=== PATIENT | female | born 1985 ===

== ENCOUNTER 2016-08-09 | Inpatient (IN) | END 2017-08-08 23:59 | disposition still patient (30) | DRG 133 | DX: J96.11 Chronic respiratory failure with hypoxia (principal); Z93.0 Tracheostomy status; R13.10 Dysphagia, unspecified; Z93.1 Gastrostomy status; I10 Essential (primary) hypertension; I87.8 Other specified disorders of veins ==

== ENCOUNTER 2016-11-18 15:30 | Outpatient (CLI) | payer MEDICAID ==
[~2016-11-18 15:30] MED LIST: ACET-2154 GT; AMAN100T GT; AMLO5TAB4 GT; ASCO500C16 GT; BACL10TA GT; BISA10SU12 RC; CLON0.1T GT; CRANBERRY JUICE GT; DEXL60CA3 PO; DEXT1DRO3 EACHEYE; DOCU-25 GT; GENT100P5 IV; HYDR-552 GT; LEVE500T9 GT; OMEG1CAP GT; POLY17PO4 GT; POTA20PA3 GT; TRAM50TA2 GT
== END 2016-11-18 23:59 ==
LOC: XRAY 15:30
PROVIDERS: ATTEND Internal Medicine Pulmonary Disease
DX: R13.10 Dysphagia, unspecified (principal)
CPT/HCPCS: 74230; 92611

== ENCOUNTER 2017-06-03 09:00 | Outpatient (CLI) | payer MEDICAID ==
[~2017-06-03 09:00] MED LIST changes: +DOCU-141 GT; -DOCU-25 GT
== END 2017-06-03 23:59 ==
LOC: CT 09:00
PROVIDERS: ATTEND Internal Medicine Pulmonary Disease
DX: G93.89 Other specified disorders of brain (principal)
CPT/HCPCS: 70450

== ENCOUNTER 2017-08-09 | Inpatient (IN) | END 2018-08-08 11:59 | disposition other institution (70) | DRG 189 | DX: J96.11 Chronic respiratory failure with hypoxia (principal); R53.2 Functional quadriplegia; G93.40 Encephalopathy, unspecified; Z93.0 Tracheostomy status; R13.10 Dysphagia, unspecified; Z93.1 Gastrostomy status; I10 Essential (primary) hypertension; I87.8 Other specified disorders of veins; F09 Unspecified mental disorder due to known physiological condition; F32.9 Major depressive disorder, single episode, unspecified; F41.9 Anxiety disorder, unspecified; G40.909 Epilepsy, unspecified, not intractable, without status epilepticus; K59.00 Constipation, unspecified; S02.609D Fracture of mandible, unspecified, subsequent encounter for fracture with routine healing; S06.5X9D Traumatic subdural hemorrhage with loss of consciousness of unspecified duration, subsequent encounter; S06.6X9D Traumatic subarachnoid hemorrhage with loss of consciousness of unspecified duration, subsequent encounter; S22.42XD Multiple fractures of ribs, left side, subsequent encounter for fracture with routine healing; S27.0XXD Traumatic pneumothorax, subsequent encounter; S27.329D Contusion of lung, unspecified, subsequent encounter; S32.401D Unspecified fracture of right acetabulum, subsequent encounter for fracture with routine healing; S32.402D Unspecified fracture of left acetabulum, subsequent encounter for fracture with routine healing; S36.030D Superficial (capsular) laceration of spleen, subsequent encounter; S42.002D Fracture of unspecified part of left clavicle, subsequent encounter for fracture with routine healing; N94.6 Dysmenorrhea, unspecified; V89.2XXD Person injured in unspecified motor-vehicle accident, traffic, subsequent encounter; R05 Cough ==

== ENCOUNTER 2017-10-13 13:19 | Outpatient (CLI) | payer MEDICARE, MEDICAID | END 2017-10-13 23:59 | disposition home or self-care (01) | LOC: RAD 13:19 | PROVIDERS: ATTEND Internal Medicine Pulmonary Disease | DX: R13.10 Dysphagia, unspecified (principal) | CPT/HCPCS: 74230; 92611 ==

== ENCOUNTER 2018-01-27 09:50 | Day surgery (SDC) | payer MEDICARE, MEDICAID ==
[2018-01-27] MEDS ORDERED: PROPOFOL 200 MG/20 ML BOTTLE IV ONE (10:45)
[2018-01-27] MEDS ORDERED: LIDOCAINE HCL 2% 20 ML VIAL MC ONE (10:45)
[2018-01-27] MEDS ORDERED: IV NORMAL SALINE 100 ML BAG IV ONE (10:45)
== END 2018-01-27 12:10 | disposition still patient (30) ==
LOC: DS 09:50
PROVIDERS: ATTEND Surgery
DX: K94.23 Gastrostomy malfunction (principal)
CPT/HCPCS: 43246; A4217; J3490 ×3; 43235

== ENCOUNTER 2018-08-09 | Inpatient (IN) | END 2019-08-08 23:59 | disposition still patient (30) | DRG 189 | DX: J96.11 Chronic respiratory failure with hypoxia (principal); R53.2 Functional quadriplegia; G93.40 Encephalopathy, unspecified; N39.0 Urinary tract infection, site not specified; K56.7 Ileus, unspecified; J98.11 Atelectasis; Z93.0 Tracheostomy status; R13.10 Dysphagia, unspecified; Z93.1 Gastrostomy status; I10 Essential (primary) hypertension; I87.8 Other specified disorders of veins; F09 Unspecified mental disorder due to known physiological condition; F32.9 Major depressive disorder, single episode, unspecified; F41.9 Anxiety disorder, unspecified; G40.909 Epilepsy, unspecified, not intractable, without status epilepticus; S02.609D Fracture of mandible, unspecified, subsequent encounter for fracture with routine healing; S06.5X9D Traumatic subdural hemorrhage with loss of consciousness of unspecified duration, subsequent encounter; S06.6X9D Traumatic subarachnoid hemorrhage with loss of consciousness of unspecified duration, subsequent encounter; S22.42XD Multiple fractures of ribs, left side, subsequent encounter for fracture with routine healing; S27.0XXD Traumatic pneumothorax, subsequent encounter; S27.329D Contusion of lung, unspecified, subsequent encounter; S32.401D Unspecified fracture of right acetabulum, subsequent encounter for fracture with routine healing; S32.402D Unspecified fracture of left acetabulum, subsequent encounter for fracture with routine healing; S36.030D Superficial (capsular) laceration of spleen, subsequent encounter; S42.002D Fracture of unspecified part of left clavicle, subsequent encounter for fracture with routine healing; V89.2XXD Person injured in unspecified motor-vehicle accident, traffic, subsequent encounter; H10.9 Unspecified conjunctivitis; K80.20 Calculus of gallbladder without cholecystitis without obstruction; M85.80 Other specified disorders of bone density and structure, unspecified site; Z87.820 Personal history of traumatic brain injury; Z91.19 Patient's noncompliance with other medical treatment and regimen; R16.0 Hepatomegaly, not elsewhere classified; R79.89 Other specified abnormal findings of blood chemistry; J40 Bronchitis, not specified as acute or chronic; B96.5 Pseudomonas (aeruginosa) (mallei) (pseudomallei) as the cause of diseases classified elsewhere; B96.1 Klebsiella pneumoniae [K. pneumoniae] as the cause of diseases classified elsewhere ==

== ENCOUNTER → 2020-08-08 23:59 | Inpatient (IN) | payer MEDICARE, MEDICAID ==
[2019-08-10 08:30] VITALS: BP 116/71
--- NOTE | 2019-08-10 15:45 | NUR ---
ISAÍAS met with patient's father Abdi and informed him that the next IDT meeting for the patient has been scheduled for 08/15/2019 at 11am.
[2019-08-10] MEDS: METOCLOPRAMIDE HCL 10 MG/10 ML UDC GT SCH (17:10)
[2019-08-10 20:36] VITALS: BP 120/72
[2019-08-10] MEDS: PROTEIN SUPPLEMENT (PROSTAT) 30 ML LIQUID GT SCH (21:00)
[2019-08-10] MEDS: COD LIVER OIL/ZINC OXIDE OINT 113 GM TUBE TP SCH (21:00)
[2019-08-10] MEDS: MELATONIN 3 MG TABLET GT SCH (21:00)
[2019-08-10] MEDS: levETIRAcetam 500 MG/5 ML LIQUID UDC GT SCH (21:00)
[2019-08-10] MEDS: ACIDOPHILUS/BULGARICUS CHEW TAB GT SCH (21:00)
[2019-08-10] MEDS: ASCORBIC ACID 500 MG TABLET GT SCH (21:00)
[2019-08-10] MEDS: CRANBERRY 500 MG GT SCH (21:00)
[2019-08-10] MEDS: MAGNESIUM COMPLEX GT SCH (21:00)
[2019-08-10] MEDS: NUTRISOURCE FIBER 4 GM PACKET GT SCH (21:00)
[2019-08-10] MEDS: RIVAROXABAN 15 MG TABLET GT SCH (21:00)
[2019-08-10] MEDS: HYDROGEN PEROXIDE 3% 118 ML BOTTLE TP SCH (21:06)
[2019-08-10] MEDS: BACLOFEN 20 MG TABLET GT SCH (22:03)
[2019-08-11] MEDS: TWOCAL HN 1,000 ML LIQUID GT PRN (04:40)
[2019-08-11] MEDS: METOCLOPRAMIDE HCL 10 MG/10 ML UDC GT SCH ×5 (06:13→23:09)
[2019-08-11] MEDS: BACLOFEN 20 MG TABLET GT SCH ×3 (06:13→21:03)
[2019-08-11] MEDS: OMEPRAZOLE 20 MG CAPSULE.DR GT SCH (06:13)
[2019-08-11] MEDS: MULTIVIT, IRON, MIN NO. 8, FA TABLET GT SCH (06:14)
[2019-08-11 08:02] VITALS: BP 98/65
[2019-08-11] MEDS: ACIDOPHILUS/BULGARICUS CHEW TAB GT SCH ×2 (09:30→20:52)
[2019-08-11] MEDS: DOCUSATE SODIUM 100 MG/10 ML LIQUID UDC GT SCH (09:30)
[2019-08-11] MEDS: levETIRAcetam 500 MG/5 ML LIQUID UDC GT SCH ×2 (09:31→20:52)
[2019-08-11] MEDS: MIRALAX 17 GM POWD.PACK GT SCH (09:31)
[2019-08-11] MEDS: COD LIVER OIL/ZINC OXIDE OINT 113 GM TUBE TP SCH ×2 (09:32→20:52)
[2019-08-11] MEDS: POTASSIUM CHLORIDE 40 MEQ/30 ML LIQUID UDC GT SCH (09:32)
[2019-08-11] MEDS: HYDROGEN PEROXIDE 3% 118 ML BOTTLE TP SCH ×2 (09:55→20:19)
--- NOTE | 2019-08-11 14:49 | NUR ---
ISAÍAS met with patient's mother Jeanne today and obtained signatures on all annual admission paperwork for patient's new chart. The paperwork included: Conditions of Admission, Patient Rights Acknowledgement, An Important Message from Medicare about your Rights, Documentation of Preferred Intensity of Care, Voluntary Prior Express Consent Form, Race and Ethnicity Patient Self-Identification, and the [facility] Agreement. ISAÍAS offered Jeanne a copy of the signed forms, and Jeanne declined, stating that she has copies of them from previous signing. For assessment/quarterly information, see patient's previous chart #[id number].
[2019-08-11 20:46] VITALS: BP 126/71
[2019-08-11] MEDS: MAGNESIUM COMPLEX GT SCH (20:52)
[2019-08-11] MEDS: MELATONIN 3 MG TABLET GT SCH (20:52)
[2019-08-11] MEDS: NUTRISOURCE FIBER 4 GM PACKET GT SCH (20:52)
[2019-08-11] MEDS: RIVAROXABAN 15 MG TABLET GT SCH (20:52)
[2019-08-11] MEDS: ASCORBIC ACID 500 MG TABLET GT SCH (20:52)
[2019-08-11] MEDS: CRANBERRY 500 MG GT SCH (20:52)
[2019-08-11] MEDS: PROTEIN SUPPLEMENT (PROSTAT) 30 ML LIQUID GT SCH (20:52)
[2019-08-12] MEDS: MULTIVIT, IRON, MIN NO. 8, FA TABLET GT SCH (05:27)
[2019-08-12] MEDS: BACLOFEN 20 MG TABLET GT SCH ×3 (05:27→21:13)
[2019-08-12] MEDS: METOCLOPRAMIDE HCL 10 MG/10 ML UDC GT SCH ×4 (05:27→23:28)
[2019-08-12] MEDS: OMEPRAZOLE 20 MG CAPSULE.DR GT SCH (05:27)
[2019-08-12 08:30] VITALS: BP 116/72
[2019-08-12] MEDS: HYDROGEN PEROXIDE 3% 118 ML BOTTLE TP SCH ×2 (09:00→21:13)
[2019-08-12] MEDS: DOCUSATE SODIUM 100 MG/10 ML LIQUID UDC GT SCH (09:20)
[2019-08-12] MEDS: ACIDOPHILUS/BULGARICUS CHEW TAB GT SCH ×2 (09:20→20:35)
[2019-08-12] MEDS: POTASSIUM CHLORIDE 40 MEQ/30 ML LIQUID UDC GT SCH (09:21)
[2019-08-12] MEDS: levETIRAcetam 500 MG/5 ML LIQUID UDC GT SCH ×2 (09:21→20:35)
[2019-08-12] MEDS: COD LIVER OIL/ZINC OXIDE OINT 113 GM TUBE TP SCH ×2 (09:23→20:37)
[2019-08-12] MEDS: POLYVINYL ALCOHOL OPHT DROPS 15 ML BOTTLE EACHEYE PRN (17:53)
[2019-08-12] MEDS: PROTEIN SUPPLEMENT (PROSTAT) 30 ML LIQUID GT SCH (20:36)
[2019-08-12] MEDS: CRANBERRY 500 MG GT SCH (20:36)
[2019-08-12] MEDS: ASCORBIC ACID 500 MG TABLET GT SCH (20:36)
[2019-08-12] MEDS: MELATONIN 3 MG TABLET GT SCH (20:36)
[2019-08-12] MEDS: NUTRISOURCE FIBER 4 GM PACKET GT SCH (20:36)
[2019-08-12] MEDS: MAGNESIUM COMPLEX GT SCH (20:36)
[2019-08-12] MEDS: RIVAROXABAN 15 MG TABLET GT SCH (20:37)
[2019-08-12 20:53] VITALS: BP 125/80
[2019-08-12] MEDS: TWOCAL HN 1,000 ML LIQUID GT PRN (21:53)
[2019-08-13] MEDS: BACLOFEN 20 MG TABLET GT SCH ×3 (05:14→21:17)
[2019-08-13] MEDS: OMEPRAZOLE 20 MG CAPSULE.DR GT SCH (05:14)
[2019-08-13] MEDS: METOCLOPRAMIDE HCL 10 MG/10 ML UDC GT SCH ×4 (05:14→23:17)
[2019-08-13] MEDS: MULTIVIT, IRON, MIN NO. 8, FA TABLET GT SCH (05:14)
[2019-08-13 08:30] VITALS: BP 108/72
[2019-08-13] MEDS: HYDROGEN PEROXIDE 3% 118 ML BOTTLE TP SCH ×2 (09:00→20:07)
[2019-08-13] MEDS: ACIDOPHILUS/BULGARICUS CHEW TAB GT SCH ×2 (09:56→20:44)
[2019-08-13] MEDS: POTASSIUM CHLORIDE 40 MEQ/30 ML LIQUID UDC GT SCH (09:56)
[2019-08-13] MEDS: levETIRAcetam 500 MG/5 ML LIQUID UDC GT SCH ×2 (09:56→20:44)
[2019-08-13] MEDS: MIRALAX 17 GM POWD.PACK GT SCH (09:56)
[2019-08-13] MEDS: DOCUSATE SODIUM 100 MG/10 ML LIQUID UDC GT SCH (09:56)
[2019-08-13] MEDS: COD LIVER OIL/ZINC OXIDE OINT 113 GM TUBE TP SCH ×2 (09:56→20:46)
[2019-08-13] MEDS: NUTRISOURCE FIBER 4 GM PACKET GT SCH (20:44)
[2019-08-13] MEDS: MELATONIN 3 MG TABLET GT SCH (20:44)
[2019-08-13] MEDS: MAGNESIUM COMPLEX GT SCH (20:44)
[2019-08-13] MEDS: ASCORBIC ACID 500 MG TABLET GT SCH (20:44)
[2019-08-13] MEDS: CRANBERRY 500 MG GT SCH (20:44)
[2019-08-13] MEDS: PROTEIN SUPPLEMENT (PROSTAT) 30 ML LIQUID GT SCH (20:44)
[2019-08-13] MEDS: RIVAROXABAN 15 MG TABLET GT SCH (20:45)
[2019-08-13 21:17] VITALS: BP 126/80
[2019-08-14] MEDS: METOCLOPRAMIDE HCL 10 MG/10 ML UDC GT SCH ×3 (05:19→17:49)
[2019-08-14] MEDS: BACLOFEN 20 MG TABLET GT SCH ×3 (05:19→21:53)
[2019-08-14] MEDS: MULTIVIT, IRON, MIN NO. 8, FA TABLET GT SCH (05:19)
[2019-08-14] MEDS: OMEPRAZOLE 20 MG CAPSULE.DR GT SCH (05:19)
[2019-08-14] MEDS: levETIRAcetam 500 MG/5 ML LIQUID UDC GT SCH ×2 (08:02→21:53)
[2019-08-14] MEDS: ACIDOPHILUS/BULGARICUS CHEW TAB GT SCH ×2 (08:02→21:53)
[2019-08-14] MEDS: DOCUSATE SODIUM 100 MG/10 ML LIQUID UDC GT SCH (08:02)
[2019-08-14] MEDS: POTASSIUM CHLORIDE 40 MEQ/30 ML LIQUID UDC GT SCH (08:02)
[2019-08-14] MEDS: COD LIVER OIL/ZINC OXIDE OINT 113 GM TUBE TP SCH ×2 (08:02→21:53)
[2019-08-14 08:30] VITALS: BP 115/64
[2019-08-14] MEDS: HYDROGEN PEROXIDE 3% 118 ML BOTTLE TP SCH ×2 (09:00→21:51)
[2019-08-14] MEDS: RIVAROXABAN 15 MG TABLET GT SCH (21:50)
[2019-08-14] MEDS: MELATONIN 3 MG TABLET GT SCH (21:53)
[2019-08-14] MEDS: CRANBERRY 500 MG GT SCH (21:53)
[2019-08-14] MEDS: MAGNESIUM COMPLEX GT SCH (21:53)
[2019-08-14] MEDS: NUTRISOURCE FIBER 4 GM PACKET GT SCH (21:53)
[2019-08-14] MEDS: ASCORBIC ACID 500 MG TABLET GT SCH (21:53)
[2019-08-14] MEDS: PROTEIN SUPPLEMENT (PROSTAT) 30 ML LIQUID GT SCH (21:53)
[2019-08-14 21:59] VITALS: BP 125/77
[2019-08-15] MEDS: METOCLOPRAMIDE HCL 10 MG/10 ML UDC GT SCH ×4 (00:44→17:00)
[2019-08-15] MEDS: MULTIVIT, IRON, MIN NO. 8, FA TABLET GT SCH (05:53)
[2019-08-15] MEDS: BACLOFEN 20 MG TABLET GT SCH ×3 (05:53→22:19)
[2019-08-15] MEDS: OMEPRAZOLE 20 MG CAPSULE.DR GT SCH (05:53)
[2019-08-15 08:00] VITALS: BP 108/69
[2019-08-15] MEDS: HYDROGEN PEROXIDE 3% 118 ML BOTTLE TP SCH ×2 (09:45→20:30)
[2019-08-15] MEDS: DOCUSATE SODIUM 100 MG/10 ML LIQUID UDC GT SCH (09:59)
[2019-08-15] MEDS: ACIDOPHILUS/BULGARICUS CHEW TAB GT SCH ×2 (09:59→20:38)
[2019-08-15] MEDS: levETIRAcetam 500 MG/5 ML LIQUID UDC GT SCH ×2 (09:59→20:39)
[2019-08-15] MEDS: COD LIVER OIL/ZINC OXIDE OINT 113 GM TUBE TP SCH ×2 (09:59→20:44)
[2019-08-15] MEDS: MIRALAX 17 GM POWD.PACK GT SCH (09:59)
[2019-08-15] MEDS: POTASSIUM CHLORIDE 40 MEQ/30 ML LIQUID UDC GT SCH (09:59)
--- NOTE | 2019-08-15 14:36 | NUR ---
Pharmacy Update from Today's 08/15/19 IDT Meeting: VS: Temp 98 BP 125/77 HR 63 LABS: (from 07/11/19, no new labs) Wbc 9.8 H/H 13.5/40.7 Plt 235 Na 144 K 4.2 Cl 107 CO2 29 BUN/SCr 18/0.6 BS 94 ca 9.0 phos 3.8 Mg 2.1 MEDICATION USE REVIEWED: > Pt not on any anti-psych medications > On Keppra 500mg q12h, last calculated CrCl was >100 ml/min. Renal fxn ok for current dosing. > On Xarelto 15mg daily, no bleeding noted, last plt was 235 > On KCl 20meq daily, last K 4.2 > PRN MED USAGE: (Dec) Tylenol for pain used x1 Artificial tears used x5 Bisacodyl used x0 Mucinex DM used x0 NEW ORDERS NOTED: > NA Pt was reviewed and discussed in depth with family in attendance with no medication issues noted. No further medication recommendations at this time, remains stable on current regimen. Will continue to monitor
[2019-08-15] MEDS: GUAIFENESIN/DEXTROMETHORPHAN 5 ML UDC GT PRN (15:15)
--- NOTE | 2019-08-15 16:35 | NUR ---
INTERDISCIPLINARY PLAN OF CARE CONFERENCE was held today. Patient's mother Jeanne and father Abdi were present at the meeting. Dr. Cartagena and the Interdisciplinary Team reviewed the current plan of care in detail. RN reported on patient's current medical condition. No changes in condition were reported at this time. See RN IDT conference notes. See also all other disciplines IDT notes and physician's progress notes for additional details. Family's questions were addressed by the IDT team. Patient's father also stated that patient continues to receive ST services from an outside provider.
[2019-08-15] MEDS: MELATONIN 3 MG TABLET GT SCH (20:39)
[2019-08-15] MEDS: CRANBERRY 500 MG GT SCH (20:40)
[2019-08-15] MEDS: NUTRISOURCE FIBER 4 GM PACKET GT SCH (20:41)
[2019-08-15] MEDS: MAGNESIUM COMPLEX GT SCH (20:41)
[2019-08-15] MEDS: ASCORBIC ACID 500 MG TABLET GT SCH (20:42)
[2019-08-15] MEDS: PROTEIN SUPPLEMENT (PROSTAT) 30 ML LIQUID GT SCH (20:42)
[2019-08-15] MEDS: RIVAROXABAN 15 MG TABLET GT SCH (21:00)
[2019-08-15 21:35] VITALS: BP 128/80
[2019-08-16] MEDS: BACLOFEN 20 MG TABLET GT SCH ×3 (06:00→22:48)
[2019-08-16] MEDS: MULTIVIT, IRON, MIN NO. 8, FA TABLET GT SCH (06:00)
[2019-08-16] MEDS: METOCLOPRAMIDE HCL 10 MG/10 ML UDC GT SCH ×5 (06:00→23:12)
[2019-08-16] MEDS: OMEPRAZOLE 20 MG CAPSULE.DR GT SCH (06:00)
[2019-08-16 08:00] VITALS: BP 120/64
[2019-08-16] MEDS: ACIDOPHILUS/BULGARICUS CHEW TAB GT SCH ×2 (08:55→20:44)
[2019-08-16] MEDS: DOCUSATE SODIUM 100 MG/10 ML LIQUID UDC GT SCH (08:55)
[2019-08-16] MEDS: levETIRAcetam 500 MG/5 ML LIQUID UDC GT SCH ×2 (08:55→20:45)
[2019-08-16] MEDS: POTASSIUM CHLORIDE 40 MEQ/30 ML LIQUID UDC GT SCH (08:55)
[2019-08-16] MEDS: COD LIVER OIL/ZINC OXIDE OINT 113 GM TUBE TP SCH ×2 (08:56→20:50)
[2019-08-16] MEDS: HYDROGEN PEROXIDE 3% 118 ML BOTTLE TP SCH ×2 (09:00→20:53)
--- NOTE | 2019-08-16 15:18 | NUR ---
Seen and examined by Lu Coleman ,no new orders noted.
[2019-08-16] MEDS: MELATONIN 3 MG TABLET GT SCH (20:47)
[2019-08-16] MEDS: CRANBERRY 500 MG GT SCH (20:48)
[2019-08-16] MEDS: MAGNESIUM COMPLEX GT SCH (20:48)
[2019-08-16] MEDS: NUTRISOURCE FIBER 4 GM PACKET GT SCH (20:48)
[2019-08-16] MEDS: ASCORBIC ACID 500 MG TABLET GT SCH (20:49)
[2019-08-16] MEDS: PROTEIN SUPPLEMENT (PROSTAT) 30 ML LIQUID GT SCH (20:49)
[2019-08-16] MEDS: RIVAROXABAN 15 MG TABLET GT SCH (20:50)
[2019-08-16 20:58] VITALS: BP 100/63
[2019-08-17] MEDS: TWOCAL HN 1,000 ML LIQUID GT PRN (04:30)
[2019-08-17] MEDS: MULTIVIT, IRON, MIN NO. 8, FA TABLET GT SCH (05:06)
[2019-08-17] MEDS: BACLOFEN 20 MG TABLET GT SCH ×3 (05:06→21:05)
[2019-08-17] MEDS: METOCLOPRAMIDE HCL 10 MG/10 ML UDC GT SCH ×3 (05:06→18:03)
[2019-08-17] MEDS: OMEPRAZOLE 20 MG CAPSULE.DR GT SCH (05:06)
[2019-08-17 08:00] VITALS: BP 120/67
[2019-08-17] MEDS: HYDROGEN PEROXIDE 3% 118 ML BOTTLE TP SCH ×2 (08:27→20:23)
[2019-08-17] MEDS: COD LIVER OIL/ZINC OXIDE OINT 113 GM TUBE TP SCH ×2 (09:03→20:46)
[2019-08-17] MEDS: levETIRAcetam 500 MG/5 ML LIQUID UDC GT SCH ×2 (09:03→20:41)
[2019-08-17] MEDS: ACIDOPHILUS/BULGARICUS CHEW TAB GT SCH ×2 (09:03→20:41)
[2019-08-17] MEDS: DOCUSATE SODIUM 100 MG/10 ML LIQUID UDC GT SCH (09:03)
[2019-08-17] MEDS: MIRALAX 17 GM POWD.PACK GT SCH (09:03)
[2019-08-17] MEDS: POTASSIUM CHLORIDE 40 MEQ/30 ML LIQUID UDC GT SCH (09:03)
[2019-08-17] MEDS: MELATONIN 3 MG TABLET GT SCH (20:42)
[2019-08-17] MEDS: CRANBERRY 500 MG GT SCH (20:42)
[2019-08-17] MEDS: NUTRISOURCE FIBER 4 GM PACKET GT SCH (20:43)
[2019-08-17] MEDS: PROTEIN SUPPLEMENT (PROSTAT) 30 ML LIQUID GT SCH (20:43)
[2019-08-17] MEDS: MAGNESIUM COMPLEX GT SCH (20:43)
[2019-08-17] MEDS: RIVAROXABAN 15 MG TABLET GT SCH (20:45)
[2019-08-17] MEDS: ASCORBIC ACID 500 MG TABLET GT SCH (20:45)
[2019-08-17 22:03] VITALS: BP 103/63
[2019-08-18] MEDS: MULTIVIT, IRON, MIN NO. 8, FA TABLET GT SCH (05:59)
[2019-08-18] MEDS: BACLOFEN 20 MG TABLET GT SCH ×3 (05:59→21:03)
[2019-08-18] MEDS: OMEPRAZOLE 20 MG CAPSULE.DR GT SCH (05:59)
[2019-08-18] MEDS: METOCLOPRAMIDE HCL 10 MG/10 ML UDC GT SCH ×4 (05:59→17:48)
[2019-08-18] MEDS: DOCUSATE SODIUM 100 MG/10 ML LIQUID UDC GT SCH (08:49)
[2019-08-18] MEDS: POTASSIUM CHLORIDE 40 MEQ/30 ML LIQUID UDC GT SCH (08:49)
[2019-08-18] MEDS: levETIRAcetam 500 MG/5 ML LIQUID UDC GT SCH ×2 (08:49→21:00)
[2019-08-18] MEDS: COD LIVER OIL/ZINC OXIDE OINT 113 GM TUBE TP SCH ×2 (08:49→21:03)
[2019-08-18] MEDS: ACIDOPHILUS/BULGARICUS CHEW TAB GT SCH ×2 (08:49→21:00)
[2019-08-18] MEDS: HYDROGEN PEROXIDE 3% 118 ML BOTTLE TP SCH ×2 (09:50→21:23)
[2019-08-18 10:07] VITALS: BP 128/68
[2019-08-18 20:41] VITALS: BP 102/63
[2019-08-18] MEDS: MELATONIN 3 MG TABLET GT SCH (21:01)
[2019-08-18] MEDS: CRANBERRY 500 MG GT SCH (21:02)
[2019-08-18] MEDS: ASCORBIC ACID 500 MG TABLET GT SCH (21:02)
[2019-08-18] MEDS: MAGNESIUM COMPLEX GT SCH (21:02)
[2019-08-18] MEDS: NUTRISOURCE FIBER 4 GM PACKET GT SCH (21:02)
[2019-08-18] MEDS: PROTEIN SUPPLEMENT (PROSTAT) 30 ML LIQUID GT SCH (21:02)
[2019-08-18] MEDS: RIVAROXABAN 15 MG TABLET GT SCH (21:24)
[2019-08-19] MEDS: METOCLOPRAMIDE HCL 10 MG/10 ML UDC GT SCH ×4 (00:10→17:56)
[2019-08-19] MEDS: TWOCAL HN 1,000 ML LIQUID GT PRN (05:00)
[2019-08-19] MEDS: MULTIVIT, IRON, MIN NO. 8, FA TABLET GT SCH (05:13)
[2019-08-19] MEDS: BACLOFEN 20 MG TABLET GT SCH ×3 (05:13→21:20)
[2019-08-19] MEDS: OMEPRAZOLE 20 MG CAPSULE.DR GT SCH (05:13)
[2019-08-19] MEDS: HYDROGEN PEROXIDE 3% 118 ML BOTTLE TP SCH ×2 (08:21→21:00)
[2019-08-19] MEDS: DOCUSATE SODIUM 100 MG/10 ML LIQUID UDC GT SCH (08:59)
[2019-08-19] MEDS: ACIDOPHILUS/BULGARICUS CHEW TAB GT SCH ×2 (09:00→21:20)
[2019-08-19] MEDS: levETIRAcetam 500 MG/5 ML LIQUID UDC GT SCH ×2 (09:00→21:20)
[2019-08-19] MEDS: MIRALAX 17 GM POWD.PACK GT SCH (09:01)
[2019-08-19] MEDS: POTASSIUM CHLORIDE 40 MEQ/30 ML LIQUID UDC GT SCH (09:02)
[2019-08-19] MEDS: COD LIVER OIL/ZINC OXIDE OINT 113 GM TUBE TP SCH ×2 (09:02→21:20)
--- NOTE | 2019-08-19 10:00 | NUR ---
SEEN BY DR. ESCOTO AND WITH NNO.
[2019-08-19 11:46] VITALS: BP 101/63
[2019-08-19 20:22] VITALS: BP 108/67
[2019-08-19] MEDS: RIVAROXABAN 15 MG TABLET GT SCH (20:42)
[2019-08-19] MEDS: MELATONIN 3 MG TABLET GT SCH (21:20)
[2019-08-19] MEDS: ASCORBIC ACID 500 MG TABLET GT SCH (21:20)
[2019-08-19] MEDS: PROTEIN SUPPLEMENT (PROSTAT) 30 ML LIQUID GT SCH (21:20)
[2019-08-19] MEDS: CRANBERRY 500 MG GT SCH (21:20)
[2019-08-19] MEDS: NUTRISOURCE FIBER 4 GM PACKET GT SCH (21:20)
[2019-08-19] MEDS: MAGNESIUM COMPLEX GT SCH (21:20)
[2019-08-20] MEDS: METOCLOPRAMIDE HCL 10 MG/10 ML UDC GT SCH ×4 (00:17→17:57)
[2019-08-20] MEDS: OMEPRAZOLE 20 MG CAPSULE.DR GT SCH (06:10)
[2019-08-20] MEDS: MULTIVIT, IRON, MIN NO. 8, FA TABLET GT SCH (06:10)
[2019-08-20] MEDS: BACLOFEN 20 MG TABLET GT SCH ×3 (06:10→22:42)
[2019-08-20] MEDS: ACIDOPHILUS/BULGARICUS CHEW TAB GT SCH ×2 (08:27→20:42)
[2019-08-20] MEDS: DOCUSATE SODIUM 100 MG/10 ML LIQUID UDC GT SCH (08:27)
[2019-08-20] MEDS: POTASSIUM CHLORIDE 40 MEQ/30 ML LIQUID UDC GT SCH (08:28)
[2019-08-20] MEDS: levETIRAcetam 500 MG/5 ML LIQUID UDC GT SCH ×2 (08:28→20:42)
[2019-08-20] MEDS: COD LIVER OIL/ZINC OXIDE OINT 113 GM TUBE TP SCH ×2 (08:29→20:44)
[2019-08-20] MEDS: HYDROGEN PEROXIDE 3% 118 ML BOTTLE TP SCH ×2 (09:00→20:36)
[2019-08-20 11:12] VITALS: BP 98/41
[2019-08-20] MEDS: POLYVINYL ALCOHOL OPHT DROPS 15 ML BOTTLE EACHEYE PRN (18:04)
[2019-08-20 20:22] VITALS: BP 129/82
[2019-08-20] MEDS: CRANBERRY 500 MG GT SCH (20:42)
[2019-08-20] MEDS: MELATONIN 3 MG TABLET GT SCH (20:42)
[2019-08-20] MEDS: RIVAROXABAN 15 MG TABLET GT SCH (20:43)
[2019-08-20] MEDS: PROTEIN SUPPLEMENT (PROSTAT) 30 ML LIQUID GT SCH (20:44)
[2019-08-20] MEDS: NUTRISOURCE FIBER 4 GM PACKET GT SCH (20:44)
[2019-08-20] MEDS: MAGNESIUM COMPLEX GT SCH (20:44)
[2019-08-20] MEDS: ASCORBIC ACID 500 MG TABLET GT SCH (20:44)
[2019-08-21] MEDS: METOCLOPRAMIDE HCL 10 MG/10 ML UDC GT SCH ×5 (00:26→23:09)
[2019-08-21] MEDS: MULTIVIT, IRON, MIN NO. 8, FA TABLET GT SCH (05:20)
[2019-08-21] MEDS: BACLOFEN 20 MG TABLET GT SCH ×3 (05:20→22:12)
[2019-08-21] MEDS: OMEPRAZOLE 20 MG CAPSULE.DR GT SCH (05:20)
[2019-08-21] MEDS: TWOCAL HN 1,000 ML LIQUID GT PRN (07:05)
[2019-08-21] MEDS: HYDROGEN PEROXIDE 3% 118 ML BOTTLE TP SCH ×2 (08:21→21:17)
[2019-08-21 08:30] VITALS: BP 103/59
[2019-08-21] MEDS: DOCUSATE SODIUM 100 MG/10 ML LIQUID UDC GT SCH (09:54)
[2019-08-21] MEDS: MIRALAX 17 GM POWD.PACK GT SCH (09:54)
[2019-08-21] MEDS: ACIDOPHILUS/BULGARICUS CHEW TAB GT SCH ×2 (09:54→20:19)
[2019-08-21] MEDS: POTASSIUM CHLORIDE 40 MEQ/30 ML LIQUID UDC GT SCH (09:54)
[2019-08-21] MEDS: COD LIVER OIL/ZINC OXIDE OINT 113 GM TUBE TP SCH ×2 (09:54→20:20)
[2019-08-21] MEDS: levETIRAcetam 500 MG/5 ML LIQUID UDC GT SCH ×2 (09:54→20:19)
[2019-08-21] MEDS: POLYVINYL ALCOHOL OPHT DROPS 15 ML BOTTLE EACHEYE PRN (17:38)
[2019-08-21] MEDS: CRANBERRY 500 MG GT SCH (20:19)
[2019-08-21] MEDS: NUTRISOURCE FIBER 4 GM PACKET GT SCH (20:19)
[2019-08-21] MEDS: MELATONIN 3 MG TABLET GT SCH (20:19)
[2019-08-21] MEDS: MAGNESIUM COMPLEX GT SCH (20:19)
[2019-08-21] MEDS: PROTEIN SUPPLEMENT (PROSTAT) 30 ML LIQUID GT SCH (20:19)
[2019-08-21] MEDS: ASCORBIC ACID 500 MG TABLET GT SCH (20:19)
[2019-08-21] MEDS: RIVAROXABAN 15 MG TABLET GT SCH (20:20)
[2019-08-21 21:01] VITALS: BP 110/66
[2019-08-22] MEDS: BACLOFEN 20 MG TABLET GT SCH ×3 (05:14→22:14)
[2019-08-22] MEDS: METOCLOPRAMIDE HCL 10 MG/10 ML UDC GT SCH ×3 (05:14→17:05)
[2019-08-22] MEDS: OMEPRAZOLE 20 MG CAPSULE.DR GT SCH (05:14)
[2019-08-22] MEDS: MULTIVIT, IRON, MIN NO. 8, FA TABLET GT SCH (05:14)
[2019-08-22 07:55] VITALS: BP 101/72
[2019-08-22] MEDS: DOCUSATE SODIUM 100 MG/10 ML LIQUID UDC GT SCH (08:39)
[2019-08-22] MEDS: ACIDOPHILUS/BULGARICUS CHEW TAB GT SCH ×2 (08:39→20:19)
[2019-08-22] MEDS: levETIRAcetam 500 MG/5 ML LIQUID UDC GT SCH ×2 (08:40→20:19)
[2019-08-22] MEDS: POTASSIUM CHLORIDE 40 MEQ/30 ML LIQUID UDC GT SCH (08:40)
[2019-08-22] MEDS: COD LIVER OIL/ZINC OXIDE OINT 113 GM TUBE TP SCH ×2 (08:40→20:21)
[2019-08-22] MEDS: HYDROGEN PEROXIDE 3% 118 ML BOTTLE TP SCH ×2 (09:00→21:22)
[2019-08-22 10:46] VITALS: BP 101/78
--- NOTE | 2019-08-22 15:02 | NUR ---
Seen and examined by Lu Coleman,no new orders noted.
[2019-08-22] MEDS: BISACODYL 10 MG SUPP.RECT RC PRN (15:05)
[2019-08-22] MEDS: POLYVINYL ALCOHOL OPHT DROPS 15 ML BOTTLE EACHEYE PRN (17:05)
[2019-08-22 20:09] VITALS: BP 103/65
[2019-08-22] MEDS: RIVAROXABAN 15 MG TABLET GT SCH (20:17)
[2019-08-22] MEDS: MELATONIN 3 MG TABLET GT SCH (20:20)
[2019-08-22] MEDS: CRANBERRY 500 MG GT SCH (20:20)
[2019-08-22] MEDS: MAGNESIUM COMPLEX GT SCH (20:21)
[2019-08-22] MEDS: ASCORBIC ACID 500 MG TABLET GT SCH (20:21)
[2019-08-22] MEDS: NUTRISOURCE FIBER 4 GM PACKET GT SCH (20:21)
[2019-08-22] MEDS: PROTEIN SUPPLEMENT (PROSTAT) 30 ML LIQUID GT SCH (20:21)
[2019-08-23] MEDS: METOCLOPRAMIDE HCL 10 MG/10 ML UDC GT SCH ×4 (00:30→17:00)
[2019-08-23] MEDS: MULTIVIT, IRON, MIN NO. 8, FA TABLET GT SCH (05:21)
[2019-08-23] MEDS: OMEPRAZOLE 20 MG CAPSULE.DR GT SCH (05:21)
[2019-08-23] MEDS: BACLOFEN 20 MG TABLET GT SCH ×3 (05:21→22:23)
[2019-08-23] MEDS: ACIDOPHILUS/BULGARICUS CHEW TAB GT SCH ×2 (08:35→20:34)
[2019-08-23] MEDS: DOCUSATE SODIUM 100 MG/10 ML LIQUID UDC GT SCH (08:35)
[2019-08-23] MEDS: COD LIVER OIL/ZINC OXIDE OINT 113 GM TUBE TP SCH ×2 (08:37→20:37)
[2019-08-23] MEDS: MIRALAX 17 GM POWD.PACK GT SCH (08:37)
[2019-08-23] MEDS: levETIRAcetam 500 MG/5 ML LIQUID UDC GT SCH ×2 (08:37→20:34)
[2019-08-23] MEDS: POTASSIUM CHLORIDE 40 MEQ/30 ML LIQUID UDC GT SCH (08:37)
[2019-08-23] MEDS: HYDROGEN PEROXIDE 3% 118 ML BOTTLE TP SCH ×2 (09:00→21:17)
[2019-08-23 11:29] VITALS: BP 100/62
[2019-08-23 20:00] VITALS: BP 100/62
[2019-08-23] MEDS: MELATONIN 3 MG TABLET GT SCH (20:34)
[2019-08-23] MEDS: CRANBERRY 500 MG GT SCH (20:34)
[2019-08-23] MEDS: ASCORBIC ACID 500 MG TABLET GT SCH (20:35)
[2019-08-23] MEDS: PROTEIN SUPPLEMENT (PROSTAT) 30 ML LIQUID GT SCH (20:35)
[2019-08-23] MEDS: NUTRISOURCE FIBER 4 GM PACKET GT SCH (20:35)
[2019-08-23] MEDS: MAGNESIUM COMPLEX GT SCH (20:35)
[2019-08-23] MEDS: RIVAROXABAN 15 MG TABLET GT SCH (20:39)
[2019-08-24] MEDS: METOCLOPRAMIDE HCL 10 MG/10 ML UDC GT SCH ×4 (00:29→17:23)
[2019-08-24] MEDS: TWOCAL HN 1,000 ML LIQUID GT PRN ×2 (00:29→05:13)
[2019-08-24] MEDS: MULTIVIT, IRON, MIN NO. 8, FA TABLET GT SCH (05:13)
[2019-08-24] MEDS: OMEPRAZOLE 20 MG CAPSULE.DR GT SCH (05:13)
[2019-08-24] MEDS: BACLOFEN 20 MG TABLET GT SCH ×3 (05:13→21:09)
[2019-08-24] MEDS: HYDROGEN PEROXIDE 3% 118 ML BOTTLE TP SCH ×2 (07:51→21:23)
[2019-08-24] MEDS: DOCUSATE SODIUM 100 MG/10 ML LIQUID UDC GT SCH (08:23)
[2019-08-24] MEDS: ACIDOPHILUS/BULGARICUS CHEW TAB GT SCH ×2 (08:23→21:06)
[2019-08-24] MEDS: levETIRAcetam 500 MG/5 ML LIQUID UDC GT SCH ×2 (08:23→21:06)
[2019-08-24] MEDS: POTASSIUM CHLORIDE 40 MEQ/30 ML LIQUID UDC GT SCH (08:24)
[2019-08-24] MEDS: COD LIVER OIL/ZINC OXIDE OINT 113 GM TUBE TP SCH ×2 (08:24→21:07)
[2019-08-24 09:25] VITALS: BP 113/61
[2019-08-24 20:56] VITALS: BP 116/84
[2019-08-24] MEDS: MELATONIN 3 MG TABLET GT SCH (21:06)
[2019-08-24] MEDS: NUTRISOURCE FIBER 4 GM PACKET GT SCH (21:07)
[2019-08-24] MEDS: MAGNESIUM COMPLEX GT SCH (21:07)
[2019-08-24] MEDS: ASCORBIC ACID 500 MG TABLET GT SCH (21:07)
[2019-08-24] MEDS: CRANBERRY 500 MG GT SCH (21:07)
[2019-08-24] MEDS: PROTEIN SUPPLEMENT (PROSTAT) 30 ML LIQUID GT SCH (21:07)
[2019-08-24] MEDS: RIVAROXABAN 15 MG TABLET GT SCH (21:08)
[2019-08-25] MEDS: BACLOFEN 20 MG TABLET GT SCH ×3 (05:28→21:54)
[2019-08-25] MEDS: METOCLOPRAMIDE HCL 10 MG/10 ML UDC GT SCH ×4 (05:28→17:02)
[2019-08-25] MEDS: OMEPRAZOLE 20 MG CAPSULE.DR GT SCH (05:28)
[2019-08-25] MEDS: MULTIVIT, IRON, MIN NO. 8, FA TABLET GT SCH (05:29)
[2019-08-25] MEDS: POTASSIUM CHLORIDE 40 MEQ/30 ML LIQUID UDC GT SCH (08:23)
[2019-08-25] MEDS: MIRALAX 17 GM POWD.PACK GT SCH (08:23)
[2019-08-25] MEDS: ACIDOPHILUS/BULGARICUS CHEW TAB GT SCH ×2 (08:23→21:51)
[2019-08-25] MEDS: levETIRAcetam 500 MG/5 ML LIQUID UDC GT SCH ×2 (08:23→21:51)
[2019-08-25] MEDS: DOCUSATE SODIUM 100 MG/10 ML LIQUID UDC GT SCH (08:23)
[2019-08-25] MEDS: NEOMY/BACITRAC/POLYMI OINT 28.35 GM TUBE TOP SCH (08:23)
[2019-08-25] MEDS: COD LIVER OIL/ZINC OXIDE OINT 113 GM TUBE TP SCH ×2 (08:24→21:54)
[2019-08-25] MEDS: HYDROGEN PEROXIDE 3% 118 ML BOTTLE TP SCH ×2 (09:20→19:17)
[2019-08-25 09:22] VITALS: BP 100/56
[2019-08-25 19:57] VITALS: BP 118/68
[2019-08-25] MEDS: RIVAROXABAN 15 MG TABLET GT SCH (21:00)
[2019-08-25] MEDS: MELATONIN 3 MG TABLET GT SCH (21:52)
[2019-08-25] MEDS: ASCORBIC ACID 500 MG TABLET GT SCH (21:54)
[2019-08-25] MEDS: NUTRISOURCE FIBER 4 GM PACKET GT SCH (21:54)
[2019-08-25] MEDS: CRANBERRY 500 MG GT SCH (21:54)
[2019-08-25] MEDS: PROTEIN SUPPLEMENT (PROSTAT) 30 ML LIQUID GT SCH (21:54)
[2019-08-25] MEDS: MAGNESIUM COMPLEX GT SCH (21:54)
[2019-08-26] MEDS: METOCLOPRAMIDE HCL 10 MG/10 ML UDC GT SCH ×4 (00:14→17:02)
[2019-08-26] MEDS: OMEPRAZOLE 20 MG CAPSULE.DR GT SCH (06:00)
[2019-08-26] MEDS: MULTIVIT, IRON, MIN NO. 8, FA TABLET GT SCH (06:00)
[2019-08-26] MEDS: BACLOFEN 20 MG TABLET GT SCH ×3 (06:00→21:28)
[2019-08-26] MEDS: COD LIVER OIL/ZINC OXIDE OINT 113 GM TUBE TP SCH ×2 (08:07→21:28)
[2019-08-26] MEDS: DOCUSATE SODIUM 100 MG/10 ML LIQUID UDC GT SCH (08:07)
[2019-08-26] MEDS: POTASSIUM CHLORIDE 40 MEQ/30 ML LIQUID UDC GT SCH (08:07)
[2019-08-26] MEDS: levETIRAcetam 500 MG/5 ML LIQUID UDC GT SCH ×2 (08:07→21:27)
[2019-08-26] MEDS: NEOMY/BACITRAC/POLYMI OINT 28.35 GM TUBE TOP SCH (08:07)
[2019-08-26] MEDS: ACIDOPHILUS/BULGARICUS CHEW TAB GT SCH ×2 (08:07→21:27)
[2019-08-26] MEDS: HYDROGEN PEROXIDE 3% 118 ML BOTTLE TP SCH ×2 (10:10→20:52)
[2019-08-26 19:51] VITALS: BP 126/75
[2019-08-26] MEDS: MELATONIN 3 MG TABLET GT SCH (21:27)
[2019-08-26] MEDS: MAGNESIUM COMPLEX GT SCH (21:27)
[2019-08-26] MEDS: CRANBERRY 500 MG GT SCH (21:27)
[2019-08-26] MEDS: NUTRISOURCE FIBER 4 GM PACKET GT SCH (21:28)
[2019-08-26] MEDS: PROTEIN SUPPLEMENT (PROSTAT) 30 ML LIQUID GT SCH (21:28)
[2019-08-26] MEDS: ASCORBIC ACID 500 MG TABLET GT SCH (21:28)
[2019-08-26] MEDS: RIVAROXABAN 15 MG TABLET GT SCH (21:40)
[2019-08-27] MEDS: OMEPRAZOLE 20 MG CAPSULE.DR GT SCH (05:08)
[2019-08-27] MEDS: MULTIVIT, IRON, MIN NO. 8, FA TABLET GT SCH (05:08)
[2019-08-27] MEDS: BACLOFEN 20 MG TABLET GT SCH ×3 (05:08→21:14)
[2019-08-27] MEDS: METOCLOPRAMIDE HCL 10 MG/10 ML UDC GT SCH ×5 (05:08→23:10)
[2019-08-27 08:04] VITALS: BP 93/63
[2019-08-27] MEDS: HYDROGEN PEROXIDE 3% 118 ML BOTTLE TP SCH ×2 (08:30→21:13)
[2019-08-27] MEDS: ACIDOPHILUS/BULGARICUS CHEW TAB GT SCH ×2 (08:31→21:11)
[2019-08-27] MEDS: DOCUSATE SODIUM 100 MG/10 ML LIQUID UDC GT SCH (08:31)
[2019-08-27] MEDS: MIRALAX 17 GM POWD.PACK GT SCH (08:31)
[2019-08-27] MEDS: levETIRAcetam 500 MG/5 ML LIQUID UDC GT SCH ×2 (08:31→21:11)
[2019-08-27] MEDS: COD LIVER OIL/ZINC OXIDE OINT 113 GM TUBE TP SCH ×2 (08:32→21:14)
[2019-08-27] MEDS: POTASSIUM CHLORIDE 40 MEQ/30 ML LIQUID UDC GT SCH (08:32)
[2019-08-27] MEDS: NEOMY/BACITRAC/POLYMI OINT 28.35 GM TUBE TOP SCH (08:32)
[2019-08-27 20:33] VITALS: BP 125/55
[2019-08-27] MEDS: CRANBERRY 500 MG GT SCH (21:11)
[2019-08-27] MEDS: MELATONIN 3 MG TABLET GT SCH (21:11)
[2019-08-27] MEDS: MAGNESIUM COMPLEX GT SCH (21:12)
[2019-08-27] MEDS: PROTEIN SUPPLEMENT (PROSTAT) 30 ML LIQUID GT SCH (21:12)
[2019-08-27] MEDS: ASCORBIC ACID 500 MG TABLET GT SCH (21:12)
[2019-08-27] MEDS: NUTRISOURCE FIBER 4 GM PACKET GT SCH (21:12)
[2019-08-27] MEDS: RIVAROXABAN 15 MG TABLET GT SCH (21:14)
[2019-08-27] MEDS: TWOCAL HN 1,000 ML LIQUID GT PRN (21:32)
[2019-08-28] MEDS: BACLOFEN 20 MG TABLET GT SCH ×3 (05:53→22:01)
[2019-08-28] MEDS: OMEPRAZOLE 20 MG CAPSULE.DR GT SCH (05:54)
[2019-08-28] MEDS: METOCLOPRAMIDE HCL 10 MG/10 ML UDC GT SCH ×3 (05:54→17:53)
[2019-08-28] MEDS: MULTIVIT, IRON, MIN NO. 8, FA TABLET GT SCH (05:54)
[2019-08-28] MEDS: MIRALAX 17 GM POWD.PACK GT SCH (09:10)
[2019-08-28] MEDS: levETIRAcetam 500 MG/5 ML LIQUID UDC GT SCH ×2 (09:10→20:44)
[2019-08-28] MEDS: POTASSIUM CHLORIDE 40 MEQ/30 ML LIQUID UDC GT SCH (09:10)
[2019-08-28] MEDS: NEOMY/BACITRAC/POLYMI OINT 28.35 GM TUBE TOP SCH (09:10)
[2019-08-28] MEDS: ACIDOPHILUS/BULGARICUS CHEW TAB GT SCH ×2 (09:10→20:44)
[2019-08-28] MEDS: COD LIVER OIL/ZINC OXIDE OINT 113 GM TUBE TP SCH ×2 (09:10→20:44)
[2019-08-28] MEDS: DOCUSATE SODIUM 100 MG/10 ML LIQUID UDC GT SCH (09:10)
[2019-08-28] MEDS: HYDROGEN PEROXIDE 3% 118 ML BOTTLE TP SCH ×2 (09:55→19:16)
[2019-08-28 10:42] VITALS: BP 112/67
--- NOTE | 2019-08-28 11:21 | NUR ---
SEEN BY BIRGIT HART WITH NO NEW ORDER.
[2019-08-28] MEDS: PROTEIN SUPPLEMENT (PROSTAT) 30 ML LIQUID GT SCH (20:44)
[2019-08-28] MEDS: MAGNESIUM COMPLEX GT SCH (20:44)
[2019-08-28] MEDS: MELATONIN 3 MG TABLET GT SCH (20:44)
[2019-08-28] MEDS: NUTRISOURCE FIBER 4 GM PACKET GT SCH (20:44)
[2019-08-28] MEDS: ASCORBIC ACID 500 MG TABLET GT SCH (20:44)
[2019-08-28] MEDS: CRANBERRY 500 MG GT SCH (20:44)
[2019-08-28 21:15] VITALS: BP 121/78
[2019-08-28] MEDS: RIVAROXABAN 15 MG TABLET GT SCH (22:00)
[2019-08-29] MEDS: METOCLOPRAMIDE HCL 10 MG/10 ML UDC GT SCH ×4 (00:27→17:30)
[2019-08-29] MEDS: MULTIVIT, IRON, MIN NO. 8, FA TABLET GT SCH (06:08)
[2019-08-29] MEDS: BACLOFEN 20 MG TABLET GT SCH ×3 (06:08→21:03)
[2019-08-29] MEDS: OMEPRAZOLE 20 MG CAPSULE.DR GT SCH (06:08)
[2019-08-29 08:07] VITALS: BP 115/61
[2019-08-29] MEDS: ACIDOPHILUS/BULGARICUS CHEW TAB GT SCH ×2 (08:30→20:33)
[2019-08-29] MEDS: MIRALAX 17 GM POWD.PACK GT SCH (08:30)
[2019-08-29] MEDS: NEOMY/BACITRAC/POLYMI OINT 28.35 GM TUBE TOP SCH (08:30)
[2019-08-29] MEDS: POTASSIUM CHLORIDE 40 MEQ/30 ML LIQUID UDC GT SCH (08:30)
[2019-08-29] MEDS: levETIRAcetam 500 MG/5 ML LIQUID UDC GT SCH ×2 (08:30→20:33)
[2019-08-29] MEDS: COD LIVER OIL/ZINC OXIDE OINT 113 GM TUBE TP SCH ×2 (08:30→20:44)
[2019-08-29] MEDS: DOCUSATE SODIUM 100 MG/10 ML LIQUID UDC GT SCH (08:30)
[2019-08-29] MEDS: HYDROGEN PEROXIDE 3% 118 ML BOTTLE TP SCH ×2 (09:16→21:05)
[2019-08-29] MEDS: MELATONIN 3 MG TABLET GT SCH (20:37)
[2019-08-29] MEDS: CRANBERRY 500 MG GT SCH (20:38)
[2019-08-29] MEDS: NUTRISOURCE FIBER 4 GM PACKET GT SCH (20:38)
[2019-08-29] MEDS: MAGNESIUM COMPLEX GT SCH (20:38)
[2019-08-29] MEDS: ASCORBIC ACID 500 MG TABLET GT SCH (20:39)
[2019-08-29] MEDS: PROTEIN SUPPLEMENT (PROSTAT) 30 ML LIQUID GT SCH (20:39)
[2019-08-29] MEDS: RIVAROXABAN 15 MG TABLET GT SCH (20:40)
[2019-08-29 20:59] VITALS: BP 119/72
[2019-08-30] MEDS: METOCLOPRAMIDE HCL 10 MG/10 ML UDC GT SCH ×4 (00:30→17:09)
[2019-08-30] MEDS: BACLOFEN 20 MG TABLET GT SCH ×3 (06:10→21:17)
[2019-08-30] MEDS: OMEPRAZOLE 20 MG CAPSULE.DR GT SCH (06:10)
[2019-08-30] MEDS: MULTIVIT, IRON, MIN NO. 8, FA TABLET GT SCH (06:10)
[2019-08-30 07:24] LABS: BASOPHILS % (AUTO) 0.5 % (0.0-2.0); EOSINOPHILS # (AUTO) 0.2 K/uL (0.0-0.7); EOSINOPHILS % (AUTO) 2.5 % (0.0-7.0); HEMATOCRIT 42.5 % (31.2-41.9); HEMOGLOBIN 13.9 g/dL (10.9-14.3); LYMPHOCYTES # (AUTO) 2.7 K/uL (20.0-40.0); LYMPHOCYTES % (AUTO) 28.6 % (20.5-51.5); MEAN CORPUSCULAR HEMOGLOBIN 27.9 uug (24.7-32.8); MEAN CORPUSCULAR HGB CONC 33 g/dL (32.3-35.6); MEAN CORPUSCULAR VOLUME 85.1 fL (75.5-95.3); MONOCYTES # (AUTO) 0.6 K/uL (2.0-10.0); MONOCYTES % (AUTO) 6.3 % (0.0-11.0); NEUTROPHILS # (AUTO) 5.9 K/uL (1.8-8.9); NEUTROPHILS % (AUTO) 62.1 % (38.5-71.5); PLATELET COUNT (AUTO) 243 K/uL (179-408); RED BLOOD CELL COUNT(AUTO) 4.99 MIL/uL (3.63-4.92); WHITE BLOOD COUNT (AUTO) 9.4 K/uL (3.8-11.8)
[2019-08-30 07:40] LABS: BILIRUBIN,TOTAL 0.6 mg/dL (0.2-1.0); CREATININE 0.6 mg/dL (0.6-1.3); MAGNESIUM 2.1 mg/dL (1.8-2.4); PHOSPHOROUS 4.4 mg/dL (2.5-4.9); POTASSIUM 4.4 mmol/L (3.5-5.1); TOTAL PROTEIN, SERUM 7.8 g/dL (6.4-8.2)
[2019-08-30 08:06] VITALS: BP 116/71
[2019-08-30] MEDS: COD LIVER OIL/ZINC OXIDE OINT 113 GM TUBE TP SCH ×2 (08:06→20:59)
[2019-08-30] MEDS: DOCUSATE SODIUM 100 MG/10 ML LIQUID UDC GT SCH (08:06)
[2019-08-30] MEDS: NEOMY/BACITRAC/POLYMI OINT 28.35 GM TUBE TOP SCH (08:06)
[2019-08-30] MEDS: levETIRAcetam 500 MG/5 ML LIQUID UDC GT SCH ×2 (08:06→20:54)
[2019-08-30] MEDS: MIRALAX 17 GM POWD.PACK GT SCH (08:06)
[2019-08-30] MEDS: ACIDOPHILUS/BULGARICUS CHEW TAB GT SCH ×2 (08:06→20:54)
[2019-08-30] MEDS: POTASSIUM CHLORIDE 40 MEQ/30 ML LIQUID UDC GT SCH (08:06)
[2019-08-30] MEDS: HYDROGEN PEROXIDE 3% 118 ML BOTTLE TP SCH ×2 (09:00→18:58)
[2019-08-30 20:08] VITALS: BP 103/60
[2019-08-30] MEDS: MELATONIN 3 MG TABLET GT SCH (20:55)
[2019-08-30] MEDS: CRANBERRY 500 MG GT SCH (20:56)
[2019-08-30] MEDS: ASCORBIC ACID 500 MG TABLET GT SCH (20:57)
[2019-08-30] MEDS: PROTEIN SUPPLEMENT (PROSTAT) 30 ML LIQUID GT SCH (20:57)
[2019-08-30] MEDS: MAGNESIUM COMPLEX GT SCH (20:57)
[2019-08-30] MEDS: NUTRISOURCE FIBER 4 GM PACKET GT SCH (20:57)
[2019-08-30] MEDS: RIVAROXABAN 15 MG TABLET GT SCH (20:58)
[2019-08-31] MEDS: BACLOFEN 20 MG TABLET GT SCH ×3 (05:08→22:36)
[2019-08-31] MEDS: OMEPRAZOLE 20 MG CAPSULE.DR GT SCH (05:08)
[2019-08-31] MEDS: METOCLOPRAMIDE HCL 10 MG/10 ML UDC GT SCH ×4 (05:08→17:28)
[2019-08-31] MEDS: MULTIVIT, IRON, MIN NO. 8, FA TABLET GT SCH (05:08)
[2019-08-31 08:00] VITALS: BP 113/52
[2019-08-31] MEDS: levETIRAcetam 500 MG/5 ML LIQUID UDC GT SCH ×2 (08:35→20:32)
[2019-08-31] MEDS: COD LIVER OIL/ZINC OXIDE OINT 113 GM TUBE TP SCH ×2 (08:35→20:43)
[2019-08-31] MEDS: NEOMY/BACITRAC/POLYMI OINT 28.35 GM TUBE TOP SCH (08:35)
[2019-08-31] MEDS: DOCUSATE SODIUM 100 MG/10 ML LIQUID UDC GT SCH (08:35)
[2019-08-31] MEDS: ACIDOPHILUS/BULGARICUS CHEW TAB GT SCH ×2 (08:35→20:31)
[2019-08-31] MEDS: MIRALAX 17 GM POWD.PACK GT SCH (08:35)
[2019-08-31] MEDS: POTASSIUM CHLORIDE 40 MEQ/30 ML LIQUID UDC GT SCH (08:35)
[2019-08-31] MEDS: HYDROGEN PEROXIDE 3% 118 ML BOTTLE TP SCH ×2 (09:48→19:00)
[2019-08-31] MEDS: MELATONIN 3 MG TABLET GT SCH (20:32)
[2019-08-31] MEDS: CRANBERRY 500 MG GT SCH (20:41)
[2019-08-31] MEDS: MAGNESIUM COMPLEX GT SCH (20:41)
[2019-08-31] MEDS: NUTRISOURCE FIBER 4 GM PACKET GT SCH (20:42)
[2019-08-31] MEDS: PROTEIN SUPPLEMENT (PROSTAT) 30 ML LIQUID GT SCH (20:42)
[2019-08-31] MEDS: ASCORBIC ACID 500 MG TABLET GT SCH (20:42)
[2019-08-31] MEDS: RIVAROXABAN 15 MG TABLET GT SCH (20:42)
[2019-08-31 21:44] VITALS: BP 106/67
[2019-09-01] MEDS: MULTIVIT, IRON, MIN NO. 8, FA TABLET GT SCH (05:39)
[2019-09-01] MEDS: BACLOFEN 20 MG TABLET GT SCH ×3 (05:39→21:49)
[2019-09-01] MEDS: OMEPRAZOLE 20 MG CAPSULE.DR GT SCH (05:39)
[2019-09-01] MEDS: METOCLOPRAMIDE HCL 10 MG/10 ML UDC GT SCH ×4 (05:39→18:00)
[2019-09-01] MEDS: HYDROGEN PEROXIDE 3% 118 ML BOTTLE TP SCH ×2 (09:00→21:18)
[2019-09-01 09:28] VITALS: BP 117/71
[2019-09-01] MEDS: POTASSIUM CHLORIDE 40 MEQ/30 ML LIQUID UDC GT SCH (09:41)
[2019-09-01] MEDS: COD LIVER OIL/ZINC OXIDE OINT 113 GM TUBE TP SCH ×2 (09:41→20:19)
[2019-09-01] MEDS: DOCUSATE SODIUM 100 MG/10 ML LIQUID UDC GT SCH (09:41)
[2019-09-01] MEDS: levETIRAcetam 500 MG/5 ML LIQUID UDC GT SCH ×2 (09:41→20:18)
[2019-09-01] MEDS: MIRALAX 17 GM POWD.PACK GT SCH (09:41)
[2019-09-01] MEDS: ACIDOPHILUS/BULGARICUS CHEW TAB GT SCH ×2 (09:41→20:18)
[2019-09-01] MEDS: CRANBERRY 500 MG GT SCH (20:18)
[2019-09-01] MEDS: MELATONIN 3 MG TABLET GT SCH (20:18)
[2019-09-01] MEDS: MAGNESIUM COMPLEX GT SCH (20:19)
[2019-09-01] MEDS: PROTEIN SUPPLEMENT (PROSTAT) 30 ML LIQUID GT SCH (20:19)
[2019-09-01] MEDS: ASCORBIC ACID 500 MG TABLET GT SCH (20:19)
[2019-09-01] MEDS: NUTRISOURCE FIBER 4 GM PACKET GT SCH (20:19)
[2019-09-01] MEDS: RIVAROXABAN 15 MG TABLET GT SCH (21:49)
[2019-09-01 22:28] VITALS: BP 115/69
[2019-09-02] MEDS: OMEPRAZOLE 20 MG CAPSULE.DR GT SCH (05:09)
[2019-09-02] MEDS: METOCLOPRAMIDE HCL 10 MG/10 ML UDC GT SCH ×4 (05:09→17:27)
[2019-09-02] MEDS: BACLOFEN 20 MG TABLET GT SCH ×3 (05:09→21:22)
[2019-09-02] MEDS: MULTIVIT, IRON, MIN NO. 8, FA TABLET GT SCH (05:09)
[2019-09-02] MEDS: TWOCAL HN 1,000 ML LIQUID GT PRN (05:09)
[2019-09-02 08:05] VITALS: BP 114/74
[2019-09-02] MEDS: DOCUSATE SODIUM 100 MG/10 ML LIQUID UDC GT SCH (08:49)
[2019-09-02] MEDS: POTASSIUM CHLORIDE 40 MEQ/30 ML LIQUID UDC GT SCH (08:50)
[2019-09-02] MEDS: levETIRAcetam 500 MG/5 ML LIQUID UDC GT SCH ×2 (08:50→21:22)
[2019-09-02] MEDS: MIRALAX 17 GM POWD.PACK GT SCH (08:50)
[2019-09-02] MEDS: ACIDOPHILUS/BULGARICUS CHEW TAB GT SCH ×2 (08:50→20:25)
[2019-09-02] MEDS: COD LIVER OIL/ZINC OXIDE OINT 113 GM TUBE TP SCH ×2 (08:51→20:27)
[2019-09-02] MEDS: HYDROGEN PEROXIDE 3% 118 ML BOTTLE TP SCH ×2 (09:00→21:48)
[2019-09-02] MEDS: MELATONIN 3 MG TABLET GT SCH (20:25)
[2019-09-02] MEDS: CRANBERRY 500 MG GT SCH (20:26)
[2019-09-02] MEDS: MAGNESIUM COMPLEX GT SCH (20:26)
[2019-09-02] MEDS: NUTRISOURCE FIBER 4 GM PACKET GT SCH (20:26)
[2019-09-02] MEDS: PROTEIN SUPPLEMENT (PROSTAT) 30 ML LIQUID GT SCH (20:27)
[2019-09-02] MEDS: RIVAROXABAN 15 MG TABLET GT SCH (20:27)
[2019-09-02] MEDS: ASCORBIC ACID 500 MG TABLET GT SCH (20:27)
--- NOTE | 2019-09-02 21:00 | NUR ---
ON HOLD [facility] DUE TO NOT AVAILABLE WILL PROVIDE BY FAMILY.PT'S FATHER AWARE.
[2019-09-02 22:05] VITALS: BP 101/60
[2019-09-03] MEDS: OMEPRAZOLE 20 MG CAPSULE.DR GT SCH (05:08)
[2019-09-03] MEDS: BACLOFEN 20 MG TABLET GT SCH ×3 (05:08→22:01)
[2019-09-03] MEDS: MULTIVIT, IRON, MIN NO. 8, FA TABLET GT SCH (05:09)
[2019-09-03] MEDS: METOCLOPRAMIDE HCL 10 MG/10 ML UDC GT SCH ×5 (05:09→23:20)
[2019-09-03] MEDS: levETIRAcetam 500 MG/5 ML LIQUID UDC GT SCH ×2 (08:22→21:00)
[2019-09-03] MEDS: ACIDOPHILUS/BULGARICUS CHEW TAB GT SCH ×2 (08:22→20:26)
[2019-09-03] MEDS: DOCUSATE SODIUM 100 MG/10 ML LIQUID UDC GT SCH (08:22)
[2019-09-03] MEDS: COD LIVER OIL/ZINC OXIDE OINT 113 GM TUBE TP SCH ×2 (08:23→20:31)
[2019-09-03] MEDS: MIRALAX 17 GM POWD.PACK GT SCH (08:23)
[2019-09-03] MEDS: POTASSIUM CHLORIDE 40 MEQ/30 ML LIQUID UDC GT SCH (08:23)
[2019-09-03] MEDS: HYDROGEN PEROXIDE 3% 118 ML BOTTLE TP SCH ×2 (09:00→21:27)
[2019-09-03 11:08] VITALS: BP 94/60
[2019-09-03] MEDS: MELATONIN 3 MG TABLET GT SCH (20:26)
[2019-09-03] MEDS: CRANBERRY 500 MG GT SCH (20:28)
[2019-09-03] MEDS: MAGNESIUM COMPLEX GT SCH (20:28)
[2019-09-03] MEDS: ASCORBIC ACID 500 MG TABLET GT SCH (20:29)
[2019-09-03] MEDS: PROTEIN SUPPLEMENT (PROSTAT) 30 ML LIQUID GT SCH (20:29)
[2019-09-03] MEDS: NUTRISOURCE FIBER 4 GM PACKET GT SCH (20:29)
[2019-09-03] MEDS: RIVAROXABAN 15 MG TABLET GT SCH (20:32)
[2019-09-03 22:19] VITALS: BP 119/71
[2019-09-04] MEDS: MULTIVIT, IRON, MIN NO. 8, FA TABLET GT SCH (05:36)
[2019-09-04] MEDS: METOCLOPRAMIDE HCL 10 MG/10 ML UDC GT SCH ×3 (05:36→17:38)
[2019-09-04] MEDS: OMEPRAZOLE 20 MG CAPSULE.DR GT SCH (05:36)
[2019-09-04] MEDS: TWOCAL HN 1,000 ML LIQUID GT PRN (05:36)
[2019-09-04] MEDS: BACLOFEN 20 MG TABLET GT SCH ×3 (05:36→21:47)
[2019-09-04] MEDS: HYDROGEN PEROXIDE 3% 118 ML BOTTLE TP SCH ×2 (08:13→21:18)
[2019-09-04] MEDS: DOCUSATE SODIUM 100 MG/10 ML LIQUID UDC GT SCH (09:45)
[2019-09-04] MEDS: ACIDOPHILUS/BULGARICUS CHEW TAB GT SCH ×2 (09:45→20:38)
[2019-09-04] MEDS: MIRALAX 17 GM POWD.PACK GT SCH (09:45)
[2019-09-04] MEDS: POTASSIUM CHLORIDE 40 MEQ/30 ML LIQUID UDC GT SCH (09:45)
[2019-09-04] MEDS: levETIRAcetam 500 MG/5 ML LIQUID UDC GT SCH ×2 (09:45→20:38)
[2019-09-04] MEDS: COD LIVER OIL/ZINC OXIDE OINT 113 GM TUBE TP SCH ×2 (09:46→20:39)
[2019-09-04 11:13] VITALS: BP 98/67
--- NOTE | 2019-09-04 12:00 | NUR ---
SEEN BY [place] Trotter AND WITH NNO.
[2019-09-04] MEDS: CRANBERRY 500 MG GT SCH (20:38)
[2019-09-04] MEDS: PROTEIN SUPPLEMENT (PROSTAT) 30 ML LIQUID GT SCH (20:38)
[2019-09-04] MEDS: ASCORBIC ACID 500 MG TABLET GT SCH (20:38)
[2019-09-04] MEDS: MELATONIN 3 MG TABLET GT SCH (20:38)
[2019-09-04] MEDS: NUTRISOURCE FIBER 4 GM PACKET GT SCH (20:38)
[2019-09-04] MEDS: MAGNESIUM COMPLEX GT SCH (20:38)
[2019-09-04] MEDS: RIVAROXABAN 15 MG TABLET GT SCH (20:39)
[2019-09-04 22:15] VITALS: BP 110/67
--- NOTE | 2019-09-04 23:32 | NUR ---
Seen and examined by Dr. Yates with no new orders.
[2019-09-05] MEDS: BACLOFEN 20 MG TABLET GT SCH ×3 (05:02→22:15)
[2019-09-05] MEDS: MULTIVIT, IRON, MIN NO. 8, FA TABLET GT SCH (05:03)
[2019-09-05] MEDS: OMEPRAZOLE 20 MG CAPSULE.DR GT SCH (05:03)
[2019-09-05] MEDS: METOCLOPRAMIDE HCL 10 MG/10 ML UDC GT SCH ×4 (05:03→17:34)
[2019-09-05] MEDS: COD LIVER OIL/ZINC OXIDE OINT 113 GM TUBE TP SCH ×2 (08:10→20:34)
[2019-09-05] MEDS: ACIDOPHILUS/BULGARICUS CHEW TAB GT SCH ×2 (08:10→20:24)
[2019-09-05] MEDS: DOCUSATE SODIUM 100 MG/10 ML LIQUID UDC GT SCH (08:10)
[2019-09-05] MEDS: MIRALAX 17 GM POWD.PACK GT SCH (08:10)
[2019-09-05] MEDS: POTASSIUM CHLORIDE 40 MEQ/30 ML LIQUID UDC GT SCH (08:10)
[2019-09-05] MEDS: levETIRAcetam 500 MG/5 ML LIQUID UDC GT SCH ×2 (08:10→20:24)
[2019-09-05 08:30] VITALS: BP 113/70
[2019-09-05] MEDS: HYDROGEN PEROXIDE 3% 118 ML BOTTLE TP SCH ×2 (09:00→21:27)
--- NOTE | 2019-09-05 11:00 | NUR ---
Seen and examined by Lu Coleman,no new orders.
[2019-09-05] MEDS: MELATONIN 3 MG TABLET GT SCH (20:24)
[2019-09-05] MEDS: CRANBERRY 500 MG GT SCH (20:25)
[2019-09-05] MEDS: MAGNESIUM COMPLEX GT SCH (20:25)
[2019-09-05 20:29] VITALS: BP 106/63
[2019-09-05] MEDS: ASCORBIC ACID 500 MG TABLET GT SCH (20:32)
[2019-09-05] MEDS: NUTRISOURCE FIBER 4 GM PACKET GT SCH (20:32)
[2019-09-05] MEDS: PROTEIN SUPPLEMENT (PROSTAT) 30 ML LIQUID GT SCH (20:32)
[2019-09-05] MEDS: RIVAROXABAN 15 MG TABLET GT SCH (20:34)
[2019-09-06] MEDS: METOCLOPRAMIDE HCL 10 MG/10 ML UDC GT SCH ×4 (00:19→17:29)
[2019-09-06] MEDS: BACLOFEN 20 MG TABLET GT SCH ×3 (05:26→22:00)
[2019-09-06] MEDS: OMEPRAZOLE 20 MG CAPSULE.DR GT SCH (05:26)
[2019-09-06] MEDS: MULTIVIT, IRON, MIN NO. 8, FA TABLET GT SCH (05:29)
[2019-09-06 08:00] VITALS: BP 113/64
[2019-09-06] MEDS: DOCUSATE SODIUM 100 MG/10 ML LIQUID UDC GT SCH (08:08)
[2019-09-06] MEDS: ACIDOPHILUS/BULGARICUS CHEW TAB GT SCH ×2 (08:08→20:40)
[2019-09-06] MEDS: levETIRAcetam 500 MG/5 ML LIQUID UDC GT SCH ×2 (08:09→20:40)
[2019-09-06] MEDS: MIRALAX 17 GM POWD.PACK GT SCH (08:09)
[2019-09-06] MEDS: POTASSIUM CHLORIDE 40 MEQ/30 ML LIQUID UDC GT SCH (08:10)
[2019-09-06] MEDS: COD LIVER OIL/ZINC OXIDE OINT 113 GM TUBE TP SCH ×2 (08:10→20:44)
[2019-09-06] MEDS: HYDROGEN PEROXIDE 3% 118 ML BOTTLE TP SCH ×2 (09:00→21:53)
--- NOTE | 2019-09-06 16:45 | NUR ---
ISAÍAS met with the patient's father Abdi today and informed him that the next IDT meeting for the patient has been scheduled for 09/12/2019. Abdi stated that he will attend.
[2019-09-06] MEDS: MELATONIN 3 MG TABLET GT SCH (20:40)
[2019-09-06] MEDS: MAGNESIUM COMPLEX GT SCH (20:41)
[2019-09-06] MEDS: NUTRISOURCE FIBER 4 GM PACKET GT SCH (20:41)
[2019-09-06] MEDS: CRANBERRY 500 MG GT SCH (20:41)
[2019-09-06] MEDS: ASCORBIC ACID 500 MG TABLET GT SCH (20:44)
[2019-09-06] MEDS: PROTEIN SUPPLEMENT (PROSTAT) 30 ML LIQUID GT SCH (20:44)
[2019-09-06 20:49] VITALS: BP 105/62
[2019-09-06] MEDS: RIVAROXABAN 15 MG TABLET GT SCH (21:00)
[2019-09-07] MEDS: BACLOFEN 20 MG TABLET GT SCH ×3 (05:12→21:50)
[2019-09-07] MEDS: MULTIVIT, IRON, MIN NO. 8, FA TABLET GT SCH (05:12)
[2019-09-07] MEDS: OMEPRAZOLE 20 MG CAPSULE.DR GT SCH (05:12)
[2019-09-07] MEDS: METOCLOPRAMIDE HCL 10 MG/10 ML UDC GT SCH ×4 (05:12→17:48)
[2019-09-07] MEDS: HYDROGEN PEROXIDE 3% 118 ML BOTTLE TP SCH ×2 (07:50→21:09)
[2019-09-07 08:00] VITALS: BP 117/61
[2019-09-07] MEDS: DOCUSATE SODIUM 100 MG/10 ML LIQUID UDC GT SCH (09:07)
[2019-09-07] MEDS: levETIRAcetam 500 MG/5 ML LIQUID UDC GT SCH ×2 (09:07→21:48)
[2019-09-07] MEDS: ACIDOPHILUS/BULGARICUS CHEW TAB GT SCH ×2 (09:07→21:48)
[2019-09-07] MEDS: MIRALAX 17 GM POWD.PACK GT SCH (09:08)
[2019-09-07] MEDS: COD LIVER OIL/ZINC OXIDE OINT 113 GM TUBE TP SCH ×2 (09:09→21:50)
[2019-09-07] MEDS: POTASSIUM CHLORIDE 40 MEQ/30 ML LIQUID UDC GT SCH (09:09)
[2019-09-07] MEDS: TWOCAL HN 1,000 ML LIQUID GT PRN (14:29)
[2019-09-07 20:49] VITALS: BP 109/76
[2019-09-07] MEDS: MELATONIN 3 MG TABLET GT SCH (21:48)
[2019-09-07] MEDS: CRANBERRY 500 MG GT SCH (21:49)
[2019-09-07] MEDS: MAGNESIUM COMPLEX GT SCH (21:49)
[2019-09-07] MEDS: PROTEIN SUPPLEMENT (PROSTAT) 30 ML LIQUID GT SCH (21:49)
[2019-09-07] MEDS: NUTRISOURCE FIBER 4 GM PACKET GT SCH (21:49)
[2019-09-07] MEDS: ASCORBIC ACID 500 MG TABLET GT SCH (21:50)
[2019-09-07] MEDS: RIVAROXABAN 15 MG TABLET GT SCH (22:00)
[2019-09-08] MEDS: METOCLOPRAMIDE HCL 10 MG/10 ML UDC GT SCH ×4 (00:39→17:20)
[2019-09-08] MEDS: BACLOFEN 20 MG TABLET GT SCH ×3 (05:36→21:40)
[2019-09-08] MEDS: OMEPRAZOLE 20 MG CAPSULE.DR GT SCH (05:36)
[2019-09-08] MEDS: MULTIVIT, IRON, MIN NO. 8, FA TABLET GT SCH (05:36)
[2019-09-08] MEDS: DOCUSATE SODIUM 100 MG/10 ML LIQUID UDC GT SCH (08:43)
[2019-09-08] MEDS: MIRALAX 17 GM POWD.PACK GT SCH (08:43)
[2019-09-08] MEDS: ACIDOPHILUS/BULGARICUS CHEW TAB GT SCH ×2 (08:43→21:37)
[2019-09-08] MEDS: levETIRAcetam 500 MG/5 ML LIQUID UDC GT SCH ×2 (08:43→21:37)
[2019-09-08] MEDS: POTASSIUM CHLORIDE 40 MEQ/30 ML LIQUID UDC GT SCH (08:45)
[2019-09-08] MEDS: COD LIVER OIL/ZINC OXIDE OINT 113 GM TUBE TP SCH ×2 (08:45→21:40)
[2019-09-08] MEDS: HYDROGEN PEROXIDE 3% 118 ML BOTTLE TP SCH ×2 (09:00→21:00)
[2019-09-08 20:47] VITALS: BP 121/68
[2019-09-08] MEDS: CRANBERRY 500 MG GT SCH (21:00)
[2019-09-08] MEDS: MELATONIN 3 MG TABLET GT SCH (21:38)
[2019-09-08] MEDS: MAGNESIUM COMPLEX GT SCH (21:39)
[2019-09-08] MEDS: NUTRISOURCE FIBER 4 GM PACKET GT SCH (21:40)
[2019-09-08] MEDS: ASCORBIC ACID 500 MG TABLET GT SCH (21:40)
[2019-09-08] MEDS: PROTEIN SUPPLEMENT (PROSTAT) 30 ML LIQUID GT SCH (21:40)
--- NOTE | 2019-09-08 21:42 | NUR ---
[facility] CAPSULE NOT AVAILABLE FAMILY PROVIDE IT.
[2019-09-08] MEDS: RIVAROXABAN 15 MG TABLET GT SCH (21:52)
[2019-09-09] MEDS: BACLOFEN 20 MG TABLET GT SCH ×3 (06:12→21:23)
[2019-09-09] MEDS: METOCLOPRAMIDE HCL 10 MG/10 ML UDC GT SCH ×4 (06:12→17:50)
[2019-09-09] MEDS: OMEPRAZOLE 20 MG CAPSULE.DR GT SCH (06:12)
[2019-09-09] MEDS: MULTIVIT, IRON, MIN NO. 8, FA TABLET GT SCH (06:12)
[2019-09-09] MEDS: ACIDOPHILUS/BULGARICUS CHEW TAB GT SCH ×2 (08:53→21:21)
[2019-09-09] MEDS: DOCUSATE SODIUM 100 MG/10 ML LIQUID UDC GT SCH (08:53)
[2019-09-09] MEDS: levETIRAcetam 500 MG/5 ML LIQUID UDC GT SCH ×2 (08:54→21:21)
[2019-09-09] MEDS: POTASSIUM CHLORIDE 40 MEQ/30 ML LIQUID UDC GT SCH (08:54)
[2019-09-09] MEDS: MIRALAX 17 GM POWD.PACK GT SCH (08:54)
[2019-09-09] MEDS: COD LIVER OIL/ZINC OXIDE OINT 113 GM TUBE TP SCH ×2 (08:56→21:23)
[2019-09-09] MEDS: HYDROGEN PEROXIDE 3% 118 ML BOTTLE TP SCH ×2 (09:19→21:00)
[2019-09-09 11:57] VITALS: BP 111/64
[2019-09-09] MEDS: TWOCAL HN 1,000 ML LIQUID GT PRN (13:02)
[2019-09-09 20:01] VITALS: BP 123/75
[2019-09-09] MEDS: CRANBERRY 500 MG GT SCH (21:00)
[2019-09-09] MEDS: MELATONIN 3 MG TABLET GT SCH (21:21)
[2019-09-09] MEDS: NUTRISOURCE FIBER 4 GM PACKET GT SCH (21:22)
[2019-09-09] MEDS: MAGNESIUM COMPLEX GT SCH (21:22)
[2019-09-09] MEDS: ASCORBIC ACID 500 MG TABLET GT SCH (21:23)
[2019-09-09] MEDS: PROTEIN SUPPLEMENT (PROSTAT) 30 ML LIQUID GT SCH (21:23)
[2019-09-09] MEDS: RIVAROXABAN 15 MG TABLET GT SCH (21:32)
[2019-09-10] MEDS: METOCLOPRAMIDE HCL 10 MG/10 ML UDC GT SCH ×5 (00:31→23:18)
[2019-09-10] MEDS: OMEPRAZOLE 20 MG CAPSULE.DR GT SCH (05:48)
[2019-09-10] MEDS: MULTIVIT, IRON, MIN NO. 8, FA TABLET GT SCH (05:48)
[2019-09-10] MEDS: BACLOFEN 20 MG TABLET GT SCH ×3 (05:48→21:15)
[2019-09-10 08:00] VITALS: BP 95/62
[2019-09-10] MEDS: levETIRAcetam 500 MG/5 ML LIQUID UDC GT SCH ×2 (08:43→21:15)
[2019-09-10] MEDS: ACIDOPHILUS/BULGARICUS CHEW TAB GT SCH ×2 (08:43→21:15)
[2019-09-10] MEDS: DOCUSATE SODIUM 100 MG/10 ML LIQUID UDC GT SCH (08:43)
[2019-09-10] MEDS: MIRALAX 17 GM POWD.PACK GT SCH (08:44)
[2019-09-10] MEDS: COD LIVER OIL/ZINC OXIDE OINT 113 GM TUBE TP SCH ×2 (08:44→21:15)
[2019-09-10] MEDS: POTASSIUM CHLORIDE 40 MEQ/30 ML LIQUID UDC GT SCH (08:44)
[2019-09-10] MEDS: HYDROGEN PEROXIDE 3% 118 ML BOTTLE TP SCH ×2 (09:00→21:15)
[2019-09-10] MEDS: MAGNESIUM COMPLEX GT SCH (21:15)
[2019-09-10] MEDS: PROTEIN SUPPLEMENT (PROSTAT) 30 ML LIQUID GT SCH (21:15)
[2019-09-10] MEDS: NUTRISOURCE FIBER 4 GM PACKET GT SCH (21:15)
[2019-09-10] MEDS: MELATONIN 3 MG TABLET GT SCH (21:15)
[2019-09-10] MEDS: RIVAROXABAN 15 MG TABLET GT SCH (21:15)
[2019-09-10] MEDS: ASCORBIC ACID 500 MG TABLET GT SCH (21:15)
[2019-09-10] MEDS: CRANBERRY 500 MG GT SCH (21:15)
[2019-09-10 23:00] VITALS: BP 111/82
[2019-09-11] MEDS: TWOCAL HN 1,000 ML LIQUID GT PRN (04:01)
[2019-09-11] MEDS: METOCLOPRAMIDE HCL 10 MG/10 ML UDC GT SCH ×3 (05:07→17:54)
[2019-09-11] MEDS: OMEPRAZOLE 20 MG CAPSULE.DR GT SCH (05:07)
[2019-09-11] MEDS: MULTIVIT, IRON, MIN NO. 8, FA TABLET GT SCH (05:07)
[2019-09-11] MEDS: BACLOFEN 20 MG TABLET GT SCH ×3 (05:07→21:21)
[2019-09-11] MEDS: ACIDOPHILUS/BULGARICUS CHEW TAB GT SCH ×2 (08:06→21:27)
[2019-09-11] MEDS: COD LIVER OIL/ZINC OXIDE OINT 113 GM TUBE TP SCH ×2 (08:06→21:20)
[2019-09-11] MEDS: MIRALAX 17 GM POWD.PACK GT SCH (08:06)
[2019-09-11] MEDS: levETIRAcetam 500 MG/5 ML LIQUID UDC GT SCH ×2 (08:06→21:27)
[2019-09-11] MEDS: DOCUSATE SODIUM 100 MG/10 ML LIQUID UDC GT SCH (08:06)
[2019-09-11] MEDS: POTASSIUM CHLORIDE 40 MEQ/30 ML LIQUID UDC GT SCH (08:06)
[2019-09-11] MEDS: HYDROGEN PEROXIDE 3% 118 ML BOTTLE TP SCH ×2 (09:31→21:13)
--- NOTE | 2019-09-11 20:00 | NUR ---
VSS 97.6-57-18 BP 100/58. SATS 96%. PRIVATE SITTER IN ROOM. PATIENT IS ALERT AND TRACKS NURSE'S MOVEMENTS. COLOR GOOD. SKIN WARM, DRY, AND NTACT. MI #6 TRACHED TO 28% TRACH MIST MASK. SKIN WARM, DRY, AND INTACT THROUGHOUT. ABDOMEN SOFTLY ROUNDED WITH +BOWEL SOUNDS. GTUBE INTACT AND PATENT FOR TWOCAL 2.0 @ 30 CC/HOUR. RESIDUAL=4CC--FEEDING CONTINUES. ARMS AND LEGS CONTRACT. INCONTINENT OF BOWEL AND BLADDER. NO SIGNS OF ACUTE CARDIAC/RESPIRATORY DISTRESS OR SUPPRESSION.
[2019-09-11] MEDS: RIVAROXABAN 15 MG TABLET GT SCH (21:24)
[2019-09-11] MEDS: PROTEIN SUPPLEMENT (PROSTAT) 30 ML LIQUID GT SCH (21:24)
[2019-09-11] MEDS: ASCORBIC ACID 500 MG TABLET GT SCH (21:24)
[2019-09-11] MEDS: NUTRISOURCE FIBER 4 GM PACKET GT SCH (21:24)
[2019-09-11] MEDS: MAGNESIUM COMPLEX GT SCH (21:25)
[2019-09-11] MEDS: MELATONIN 3 MG TABLET GT SCH (21:26)
[2019-09-11] MEDS: CRANBERRY 500 MG GT SCH (21:29)
[2019-09-11 22:22] VITALS: BP 100/58
[2019-09-12] MEDS: METOCLOPRAMIDE HCL 10 MG/10 ML UDC GT SCH ×4 (00:25→17:02)
[2019-09-12] MEDS: OMEPRAZOLE 20 MG CAPSULE.DR GT SCH (06:37)
[2019-09-12] MEDS: BACLOFEN 20 MG TABLET GT SCH ×3 (06:37→22:30)
[2019-09-12] MEDS: MULTIVIT, IRON, MIN NO. 8, FA TABLET GT SCH (06:38)
[2019-09-12] MEDS: DOCUSATE SODIUM 100 MG/10 ML LIQUID UDC GT SCH (08:43)
[2019-09-12] MEDS: ACIDOPHILUS/BULGARICUS CHEW TAB GT SCH ×2 (08:43→20:51)
[2019-09-12] MEDS: MIRALAX 17 GM POWD.PACK GT SCH (08:44)
[2019-09-12] MEDS: levETIRAcetam 500 MG/5 ML LIQUID UDC GT SCH ×2 (08:44→20:51)
[2019-09-12] MEDS: POTASSIUM CHLORIDE 40 MEQ/30 ML LIQUID UDC GT SCH (08:44)
[2019-09-12] MEDS: COD LIVER OIL/ZINC OXIDE OINT 113 GM TUBE TP SCH ×2 (08:45→20:52)
[2019-09-12 09:21] VITALS: BP 95/48
[2019-09-12] MEDS: HYDROGEN PEROXIDE 3% 118 ML BOTTLE TP SCH ×2 (09:59→21:37)
--- NOTE | 2019-09-12 14:46 | NUR ---
INTERDISCIPLINARY PLAN OF CARE CONFERENCE was held today. Patient's father Abdi was present at the meeting. Dr. Cartagena and the Interdisciplinary Team reviewed the current plan of care in detail. RN reported on patient's medical condition. See RN IDT conference notes. No major changes in condition were reported. See also all other disciplines IDT notes and physician's progress notes for additional details. Abdi reported that patient continues to receive outpatient ST and OT. Abdi's questions were addressed, and Abdi expressed not having any concerns at this time.
--- NOTE | 2019-09-12 15:25 | NUR ---
Pharmacy Update from Today's 09/12/19 IDT Meeting: VS: Temp 97.6 BP 100/58 HR 57 LABS: (from 08/30/19) Wbc 9.4 H/H 13.9/42.5 Plt 243 Na 142 K 4.4 Cl 105 CO2 31 BUN/SCr 17/0.6 BS 87 ca 9.3 phos 4.4 Mg 2.1 MEDICATION USE REVIEWED: > Pt not on any anti-psych medications > On Keppra 500mg q12h, last calculated CrCl was >100 ml/min. Renal fxn ok for current dosing. > On Xarelto 15mg daily, no bleeding noted, last plt was 243 > On KCl 20meq daily, last K 4.4 > PRN MED USAGE: (Aug) Tylenol for pain used x0 Artificial tears used x4 Bisacodyl used x1 Mucinex DM used x1 NEW ORDERS NOTED: > Miralax changed from q48hr to daily 08/26 Pt was reviewed and discussed in depth with family in attendance with no medication issues noted. No further medication recommendations at this time, remains stable on current regimen. Will continue to monitor
[2019-09-12] MEDS: TWOCAL HN 1,000 ML LIQUID GT PRN (17:35)
[2019-09-12 20:00] VITALS: BP 99/55
[2019-09-12] MEDS: MAGNESIUM COMPLEX GT SCH (20:51)
[2019-09-12] MEDS: CRANBERRY 500 MG GT SCH (20:51)
[2019-09-12] MEDS: MELATONIN 3 MG TABLET GT SCH (20:51)
[2019-09-12] MEDS: PROTEIN SUPPLEMENT (PROSTAT) 30 ML LIQUID GT SCH (20:52)
[2019-09-12] MEDS: ASCORBIC ACID 500 MG TABLET GT SCH (20:52)
[2019-09-12] MEDS: NUTRISOURCE FIBER 4 GM PACKET GT SCH (20:52)
[2019-09-12] MEDS: RIVAROXABAN 15 MG TABLET GT SCH (21:00)
[2019-09-13] MEDS: METOCLOPRAMIDE HCL 10 MG/10 ML UDC GT SCH ×4 (00:30→17:26)
[2019-09-13] MEDS: OMEPRAZOLE 20 MG CAPSULE.DR GT SCH (05:35)
[2019-09-13] MEDS: BACLOFEN 20 MG TABLET GT SCH ×3 (05:35→22:28)
[2019-09-13] MEDS: MULTIVIT, IRON, MIN NO. 8, FA TABLET GT SCH (05:35)
[2019-09-13] MEDS: levETIRAcetam 500 MG/5 ML LIQUID UDC GT SCH ×2 (08:40→20:43)
[2019-09-13] MEDS: POTASSIUM CHLORIDE 40 MEQ/30 ML LIQUID UDC GT SCH (08:40)
[2019-09-13] MEDS: ACIDOPHILUS/BULGARICUS CHEW TAB GT SCH ×2 (08:40→20:43)
[2019-09-13] MEDS: MIRALAX 17 GM POWD.PACK GT SCH (08:40)
[2019-09-13] MEDS: DOCUSATE SODIUM 100 MG/10 ML LIQUID UDC GT SCH (08:40)
[2019-09-13] MEDS: COD LIVER OIL/ZINC OXIDE OINT 113 GM TUBE TP SCH ×2 (08:41→20:46)
[2019-09-13] MEDS: HYDROGEN PEROXIDE 3% 118 ML BOTTLE TP SCH ×2 (10:15→21:31)
[2019-09-13 11:12] VITALS: BP 95/49
[2019-09-13 20:00] VITALS: BP 119/69
[2019-09-13] MEDS: CRANBERRY 500 MG GT SCH (20:43)
[2019-09-13] MEDS: MELATONIN 3 MG TABLET GT SCH (20:43)
[2019-09-13] MEDS: MAGNESIUM COMPLEX GT SCH (20:44)
[2019-09-13] MEDS: ASCORBIC ACID 500 MG TABLET GT SCH (20:45)
[2019-09-13] MEDS: PROTEIN SUPPLEMENT (PROSTAT) 30 ML LIQUID GT SCH (20:45)
[2019-09-13] MEDS: NUTRISOURCE FIBER 4 GM PACKET GT SCH (20:45)
[2019-09-13] MEDS: RIVAROXABAN 15 MG TABLET GT SCH (20:47)
[2019-09-14] MEDS: METOCLOPRAMIDE HCL 10 MG/10 ML UDC GT SCH ×4 (00:08→17:20)
[2019-09-14] MEDS: MULTIVIT, IRON, MIN NO. 8, FA TABLET GT SCH (06:09)
[2019-09-14] MEDS: BACLOFEN 20 MG TABLET GT SCH ×3 (06:09→21:24)
[2019-09-14] MEDS: OMEPRAZOLE 20 MG CAPSULE.DR GT SCH (06:09)
[2019-09-14] MEDS: HYDROGEN PEROXIDE 3% 118 ML BOTTLE TP SCH ×2 (07:51→21:00)
[2019-09-14] MEDS: DOCUSATE SODIUM 100 MG/10 ML LIQUID UDC GT SCH (08:01)
[2019-09-14] MEDS: POTASSIUM CHLORIDE 40 MEQ/30 ML LIQUID UDC GT SCH (08:03)
[2019-09-14] MEDS: levETIRAcetam 500 MG/5 ML LIQUID UDC GT SCH ×2 (08:03→21:23)
[2019-09-14] MEDS: MIRALAX 17 GM POWD.PACK GT SCH (08:03)
[2019-09-14] MEDS: COD LIVER OIL/ZINC OXIDE OINT 113 GM TUBE TP SCH ×2 (08:03→21:24)
[2019-09-14] MEDS: ACIDOPHILUS/BULGARICUS CHEW TAB GT SCH ×2 (08:03→21:23)
[2019-09-14 08:08] VITALS: BP 100/58
[2019-09-14 20:00] VITALS: BP 121/75
[2019-09-14] MEDS: RIVAROXABAN 15 MG TABLET GT SCH (21:23)
[2019-09-14] MEDS: MAGNESIUM COMPLEX GT SCH (21:24)
[2019-09-14] MEDS: NUTRISOURCE FIBER 4 GM PACKET GT SCH (21:24)
[2019-09-14] MEDS: PROTEIN SUPPLEMENT (PROSTAT) 30 ML LIQUID GT SCH (21:24)
[2019-09-14] MEDS: ASCORBIC ACID 500 MG TABLET GT SCH (21:24)
[2019-09-14] MEDS: MELATONIN 3 MG TABLET GT SCH (21:24)
[2019-09-14] MEDS: CRANBERRY 500 MG GT SCH (21:24)
[2019-09-15] MEDS: BACLOFEN 20 MG TABLET GT SCH ×3 (06:02→21:02)
[2019-09-15] MEDS: METOCLOPRAMIDE HCL 10 MG/10 ML UDC GT SCH ×5 (06:02→23:04)
[2019-09-15] MEDS: MULTIVIT, IRON, MIN NO. 8, FA TABLET GT SCH (06:02)
[2019-09-15] MEDS: OMEPRAZOLE 20 MG CAPSULE.DR GT SCH (06:02)
[2019-09-15 08:08] VITALS: BP 103/70
[2019-09-15] MEDS: ACIDOPHILUS/BULGARICUS CHEW TAB GT SCH ×2 (08:26→21:02)
[2019-09-15] MEDS: levETIRAcetam 500 MG/5 ML LIQUID UDC GT SCH ×2 (08:26→21:02)
[2019-09-15] MEDS: DOCUSATE SODIUM 100 MG/10 ML LIQUID UDC GT SCH (08:26)
[2019-09-15] MEDS: POTASSIUM CHLORIDE 40 MEQ/30 ML LIQUID UDC GT SCH (08:27)
[2019-09-15] MEDS: MIRALAX 17 GM POWD.PACK GT SCH (08:27)
[2019-09-15] MEDS: COD LIVER OIL/ZINC OXIDE OINT 113 GM TUBE TP SCH ×2 (08:27→21:02)
[2019-09-15] MEDS: HYDROGEN PEROXIDE 3% 118 ML BOTTLE TP SCH ×2 (09:00→21:52)
[2019-09-15 20:00] VITALS: BP 134/84
[2019-09-15] MEDS: CRANBERRY 500 MG GT SCH (21:00)
[2019-09-15] MEDS: RIVAROXABAN 15 MG TABLET GT SCH (21:01)
[2019-09-15] MEDS: NUTRISOURCE FIBER 4 GM PACKET GT SCH (21:02)
[2019-09-15] MEDS: MAGNESIUM COMPLEX GT SCH (21:02)
[2019-09-15] MEDS: PROTEIN SUPPLEMENT (PROSTAT) 30 ML LIQUID GT SCH (21:02)
[2019-09-15] MEDS: MELATONIN 3 MG TABLET GT SCH (21:02)
[2019-09-15] MEDS: ASCORBIC ACID 500 MG TABLET GT SCH (21:02)
[2019-09-15] MEDS: TWOCAL HN 1,000 ML LIQUID GT PRN (22:03)
[2019-09-16] MEDS: MULTIVIT, IRON, MIN NO. 8, FA TABLET GT SCH (05:12)
[2019-09-16] MEDS: BACLOFEN 20 MG TABLET GT SCH ×3 (05:12→21:20)
[2019-09-16] MEDS: METOCLOPRAMIDE HCL 10 MG/10 ML UDC GT SCH ×4 (05:12→23:06)
[2019-09-16] MEDS: OMEPRAZOLE 20 MG CAPSULE.DR GT SCH (05:12)
[2019-09-16 08:30] VITALS: BP 99/65
[2019-09-16] MEDS: HYDROGEN PEROXIDE 3% 118 ML BOTTLE TP SCH ×2 (08:59→21:00)
[2019-09-16] MEDS: levETIRAcetam 500 MG/5 ML LIQUID UDC GT SCH ×2 (09:55→21:20)
[2019-09-16] MEDS: ACIDOPHILUS/BULGARICUS CHEW TAB GT SCH ×2 (09:55→21:20)
[2019-09-16] MEDS: DOCUSATE SODIUM 100 MG/10 ML LIQUID UDC GT SCH (09:55)
[2019-09-16] MEDS: POTASSIUM CHLORIDE 40 MEQ/30 ML LIQUID UDC GT SCH (09:55)
[2019-09-16] MEDS: COD LIVER OIL/ZINC OXIDE OINT 113 GM TUBE TP SCH ×2 (09:55→21:20)
[2019-09-16] MEDS: MIRALAX 17 GM POWD.PACK GT SCH (09:55)
[2019-09-16 20:00] VITALS: BP 125/78
[2019-09-16] MEDS: MELATONIN 3 MG TABLET GT SCH (21:20)
[2019-09-16] MEDS: CRANBERRY 500 MG GT SCH (21:20)
[2019-09-16] MEDS: NUTRISOURCE FIBER 4 GM PACKET GT SCH (21:20)
[2019-09-16] MEDS: RIVAROXABAN 15 MG TABLET GT SCH (21:20)
[2019-09-16] MEDS: ASCORBIC ACID 500 MG TABLET GT SCH (21:20)
[2019-09-16] MEDS: PROTEIN SUPPLEMENT (PROSTAT) 30 ML LIQUID GT SCH (21:20)
[2019-09-16] MEDS: MAGNESIUM COMPLEX GT SCH (21:20)
[2019-09-17] MEDS: METOCLOPRAMIDE HCL 10 MG/10 ML UDC GT SCH ×4 (05:28→23:27)
[2019-09-17] MEDS: MULTIVIT, IRON, MIN NO. 8, FA TABLET GT SCH (05:28)
[2019-09-17] MEDS: BACLOFEN 20 MG TABLET GT SCH ×3 (05:28→21:20)
[2019-09-17] MEDS: OMEPRAZOLE 20 MG CAPSULE.DR GT SCH (05:28)
[2019-09-17] MEDS: HYDROGEN PEROXIDE 3% 118 ML BOTTLE TP SCH ×2 (08:32→21:25)
[2019-09-17] MEDS: levETIRAcetam 500 MG/5 ML LIQUID UDC GT SCH ×2 (08:40→20:56)
[2019-09-17] MEDS: DOCUSATE SODIUM 100 MG/10 ML LIQUID UDC GT SCH (08:40)
[2019-09-17] MEDS: MIRALAX 17 GM POWD.PACK GT SCH (08:40)
[2019-09-17] MEDS: ACIDOPHILUS/BULGARICUS CHEW TAB GT SCH ×2 (08:40→20:56)
[2019-09-17] MEDS: POTASSIUM CHLORIDE 40 MEQ/30 ML LIQUID UDC GT SCH (08:41)
[2019-09-17] MEDS: COD LIVER OIL/ZINC OXIDE OINT 113 GM TUBE TP SCH ×2 (08:43→20:57)
[2019-09-17 11:36] VITALS: BP 95/41
[2019-09-17] MEDS: TWOCAL HN 1,000 ML LIQUID GT PRN (19:38)
[2019-09-17 20:19] VITALS: BP 125/84
[2019-09-17] MEDS: MELATONIN 3 MG TABLET GT SCH (20:56)
[2019-09-17] MEDS: CRANBERRY 500 MG GT SCH (20:56)
[2019-09-17] MEDS: NUTRISOURCE FIBER 4 GM PACKET GT SCH (20:56)
[2019-09-17] MEDS: ASCORBIC ACID 500 MG TABLET GT SCH (20:56)
[2019-09-17] MEDS: MAGNESIUM COMPLEX GT SCH (20:56)
[2019-09-17] MEDS: PROTEIN SUPPLEMENT (PROSTAT) 30 ML LIQUID GT SCH (20:56)
[2019-09-17] MEDS: RIVAROXABAN 15 MG TABLET GT SCH (20:58)
[2019-09-18] MEDS: OMEPRAZOLE 20 MG CAPSULE.DR GT SCH (05:02)
[2019-09-18] MEDS: BACLOFEN 20 MG TABLET GT SCH ×3 (05:02→21:19)
[2019-09-18] MEDS: METOCLOPRAMIDE HCL 10 MG/10 ML UDC GT SCH ×4 (05:02→23:21)
[2019-09-18] MEDS: MULTIVIT, IRON, MIN NO. 8, FA TABLET GT SCH (05:02)
[2019-09-18] MEDS: DOCUSATE SODIUM 100 MG/10 ML LIQUID UDC GT SCH (08:08)
[2019-09-18] MEDS: levETIRAcetam 500 MG/5 ML LIQUID UDC GT SCH ×2 (08:09→21:17)
[2019-09-18] MEDS: ACIDOPHILUS/BULGARICUS CHEW TAB GT SCH ×2 (08:09→21:17)
[2019-09-18] MEDS: MIRALAX 17 GM POWD.PACK GT SCH (08:10)
[2019-09-18] MEDS: POTASSIUM CHLORIDE 40 MEQ/30 ML LIQUID UDC GT SCH (08:10)
[2019-09-18] MEDS: COD LIVER OIL/ZINC OXIDE OINT 113 GM TUBE TP SCH ×2 (08:10→21:19)
[2019-09-18] MEDS: HYDROGEN PEROXIDE 3% 118 ML BOTTLE TP SCH ×2 (08:18→20:35)
[2019-09-18 09:10] VITALS: BP 94/48
[2019-09-18] MEDS: RIVAROXABAN 15 MG TABLET GT SCH (21:00)
[2019-09-18] MEDS: MELATONIN 3 MG TABLET GT SCH (21:17)
[2019-09-18] MEDS: NUTRISOURCE FIBER 4 GM PACKET GT SCH (21:18)
[2019-09-18] MEDS: CRANBERRY 500 MG GT SCH (21:18)
[2019-09-18] MEDS: PROTEIN SUPPLEMENT (PROSTAT) 30 ML LIQUID GT SCH (21:18)
[2019-09-18] MEDS: MAGNESIUM COMPLEX GT SCH (21:18)
[2019-09-18] MEDS: ASCORBIC ACID 500 MG TABLET GT SCH (21:19)
[2019-09-19] MEDS: MULTIVIT, IRON, MIN NO. 8, FA TABLET GT SCH (06:23)
[2019-09-19] MEDS: OMEPRAZOLE 20 MG CAPSULE.DR GT SCH (06:23)
[2019-09-19] MEDS: BACLOFEN 20 MG TABLET GT SCH ×3 (06:23→21:29)
[2019-09-19] MEDS: METOCLOPRAMIDE HCL 10 MG/10 ML UDC GT SCH ×3 (06:23→17:02)
[2019-09-19] MEDS: ACETAMINOPHEN 650 MG/20 ML UDC- SA PATIENTS-PAIN ONLY GT PRN ×2 (06:25→14:22)
[2019-09-19] MEDS: ACIDOPHILUS/BULGARICUS CHEW TAB GT SCH ×2 (08:02→20:40)
[2019-09-19] MEDS: COD LIVER OIL/ZINC OXIDE OINT 113 GM TUBE TP SCH ×2 (08:02→20:42)
[2019-09-19] MEDS: levETIRAcetam 500 MG/5 ML LIQUID UDC GT SCH ×2 (08:02→20:40)
[2019-09-19] MEDS: MIRALAX 17 GM POWD.PACK GT SCH (08:02)
[2019-09-19] MEDS: DOCUSATE SODIUM 100 MG/10 ML LIQUID UDC GT SCH (08:02)
[2019-09-19] MEDS: POTASSIUM CHLORIDE 40 MEQ/30 ML LIQUID UDC GT SCH (08:02)
[2019-09-19] MEDS: NEOMY/BACITRA/POLYMYXIN B OINT UD PACKET TP SCH ×2 (08:41→20:42)
[2019-09-19] MEDS: HYDROGEN PEROXIDE 3% 118 ML BOTTLE TP SCH ×2 (09:07→21:00)
[2019-09-19 11:08] VITALS: BP 91/48
--- NOTE | 2019-09-19 13:00 | NUR ---
Seen and examined by Lu Coleman with new orders noted.to Start on Bactrin Ds every 12 hours for Gt cellulitis.mago Patton's dad aware.
[2019-09-19] MEDS: TWOCAL HN 1,000 ML LIQUID GT PRN (16:57)
[2019-09-19] MEDS: SULFAMETH/TRIMETH 800/160 MG TABLET PO SCH (17:30)
[2019-09-19 20:34] VITALS: BP 127/76
[2019-09-19] MEDS: CRANBERRY 500 MG GT SCH (20:40)
[2019-09-19] MEDS: MELATONIN 3 MG TABLET GT SCH (20:40)
[2019-09-19] MEDS: MAGNESIUM COMPLEX GT SCH (20:41)
[2019-09-19] MEDS: NUTRISOURCE FIBER 4 GM PACKET GT SCH (20:42)
[2019-09-19] MEDS: PROTEIN SUPPLEMENT (PROSTAT) 30 ML LIQUID GT SCH (20:42)
[2019-09-19] MEDS: ASCORBIC ACID 500 MG TABLET GT SCH (20:42)
[2019-09-19] MEDS: RIVAROXABAN 15 MG TABLET GT SCH (21:00)
--- NOTE | 2019-09-20 05:19 | NUR ---
started on bactrim ds 1tab via gtube, no adverse reaction noted,afebrile, no respiratory distress noted.
[2019-09-20] MEDS: BACLOFEN 20 MG TABLET GT SCH ×3 (05:27→21:02)
[2019-09-20] MEDS: SULFAMETH/TRIMETH 800/160 MG TABLET PO SCH ×2 (05:27→17:19)
[2019-09-20] MEDS: METOCLOPRAMIDE HCL 10 MG/10 ML UDC GT SCH ×5 (05:27→23:34)
[2019-09-20] MEDS: MULTIVIT, IRON, MIN NO. 8, FA TABLET GT SCH (05:27)
[2019-09-20] MEDS: OMEPRAZOLE 20 MG CAPSULE.DR GT SCH (05:27)
[2019-09-20] MEDS: ACIDOPHILUS/BULGARICUS CHEW TAB GT SCH ×2 (08:31→20:11)
[2019-09-20] MEDS: DOCUSATE SODIUM 100 MG/10 ML LIQUID UDC GT SCH (08:31)
[2019-09-20] MEDS: levETIRAcetam 500 MG/5 ML LIQUID UDC GT SCH ×2 (08:31→20:14)
[2019-09-20] MEDS: MIRALAX 17 GM POWD.PACK GT SCH (08:32)
[2019-09-20] MEDS: NEOMY/BACITRA/POLYMYXIN B OINT UD PACKET TP SCH ×2 (08:33→20:13)
[2019-09-20] MEDS: COD LIVER OIL/ZINC OXIDE OINT 113 GM TUBE TP SCH ×2 (08:33→20:13)
[2019-09-20] MEDS: POTASSIUM CHLORIDE 40 MEQ/30 ML LIQUID UDC GT SCH (08:33)
[2019-09-20] MEDS: HYDROGEN PEROXIDE 3% 118 ML BOTTLE TP SCH ×2 (09:49→21:52)
[2019-09-20] MEDS: ACETAMINOPHEN 650 MG/20 ML UDC- SA PATIENTS-PAIN ONLY GT PRN (11:30)
[2019-09-20 12:01] VITALS: BP 114/50
[2019-09-20] MEDS: MELATONIN 3 MG TABLET GT SCH (20:11)
[2019-09-20] MEDS: CRANBERRY 500 MG GT SCH (20:11)
[2019-09-20] MEDS: ASCORBIC ACID 500 MG TABLET GT SCH (20:12)
[2019-09-20] MEDS: MAGNESIUM COMPLEX GT SCH (20:12)
[2019-09-20] MEDS: NUTRISOURCE FIBER 4 GM PACKET GT SCH (20:12)
[2019-09-20] MEDS: PROTEIN SUPPLEMENT (PROSTAT) 30 ML LIQUID GT SCH (20:12)
[2019-09-20 20:25] VITALS: BP 132/80
[2019-09-20] MEDS: RIVAROXABAN 15 MG TABLET GT SCH (21:59)
[2019-09-21] MEDS: BACLOFEN 20 MG TABLET GT SCH ×3 (05:23→21:54)
[2019-09-21] MEDS: METOCLOPRAMIDE HCL 10 MG/10 ML UDC GT SCH ×4 (05:23→23:28)
[2019-09-21] MEDS: OMEPRAZOLE 20 MG CAPSULE.DR GT SCH (05:23)
[2019-09-21] MEDS: MULTIVIT, IRON, MIN NO. 8, FA TABLET GT SCH (05:23)
[2019-09-21] MEDS: SULFAMETH/TRIMETH 800/160 MG TABLET PO SCH ×2 (05:23→17:09)
[2019-09-21] MEDS: TWOCAL HN 1,000 ML LIQUID GT PRN (05:23)
--- NOTE | 2019-09-21 05:52 | NUR ---
continue on bactrim ds 1 tab via gt for gt site cellulitis, no adverse reaction noted,afebrile.
[2019-09-21] MEDS: ACIDOPHILUS/BULGARICUS CHEW TAB GT SCH ×2 (08:10→21:54)
[2019-09-21] MEDS: levETIRAcetam 500 MG/5 ML LIQUID UDC GT SCH ×2 (08:10→21:54)
[2019-09-21] MEDS: MIRALAX 17 GM POWD.PACK GT SCH (08:10)
[2019-09-21] MEDS: DOCUSATE SODIUM 100 MG/10 ML LIQUID UDC GT SCH (08:10)
[2019-09-21] MEDS: COD LIVER OIL/ZINC OXIDE OINT 113 GM TUBE TP SCH ×2 (08:10→21:54)
[2019-09-21] MEDS: POTASSIUM CHLORIDE 40 MEQ/30 ML LIQUID UDC GT SCH (08:10)
[2019-09-21] MEDS: NEOMY/BACITRA/POLYMYXIN B OINT UD PACKET TP SCH ×2 (08:11→21:54)
[2019-09-21 08:30] VITALS: BP 102/57
[2019-09-21] MEDS: HYDROGEN PEROXIDE 3% 118 ML BOTTLE TP SCH ×2 (09:56→21:08)
--- NOTE | 2019-09-21 14:00 | NUR ---
Gtube changed, tolerated procedure well, kub done, Gtube in place, feeding re-started,no n/v noted, Gtube site tx done as ordered, continue on atb Bactrim Ds q12hrs for Gtube cellulitis, no a/r noted, Mother at bedside and notified of patient's condition.
[2019-09-21 20:20] VITALS: BP 104/68
[2019-09-21] MEDS: RIVAROXABAN 15 MG TABLET GT SCH (21:00)
[2019-09-21] MEDS: ASCORBIC ACID 500 MG TABLET GT SCH (21:54)
[2019-09-21] MEDS: MAGNESIUM COMPLEX GT SCH (21:54)
[2019-09-21] MEDS: NUTRISOURCE FIBER 4 GM PACKET GT SCH (21:54)
[2019-09-21] MEDS: CRANBERRY 500 MG GT SCH (21:54)
[2019-09-21] MEDS: MELATONIN 3 MG TABLET GT SCH (21:54)
[2019-09-21] MEDS: PROTEIN SUPPLEMENT (PROSTAT) 30 ML LIQUID GT SCH (21:54)
--- NOTE | 2019-09-21 22:30 | NUR ---
Afebrile, trach is intact and patent, no respiratory distress noted, gt feeding tolerating well, no n/v noted, denies pain or discomfort, kept clean and comfortable. Addendum: 09/22/19 at 0226 by MARCELO VALERIO RN Remains on Bactrim DS via gt for Gt site cellulitis, no adverse reactions noted, GT site still with redness, no drainage or discharge noted, kept skin clean and dry, will continue monitor.
[2019-09-22] MEDS: BACLOFEN 20 MG TABLET GT SCH ×3 (06:27→21:12)
[2019-09-22] MEDS: MULTIVIT, IRON, MIN NO. 8, FA TABLET GT SCH (06:27)
[2019-09-22] MEDS: SULFAMETH/TRIMETH 800/160 MG TABLET PO SCH ×2 (06:27→18:19)
[2019-09-22] MEDS: OMEPRAZOLE 20 MG CAPSULE.DR GT SCH (06:27)
[2019-09-22] MEDS: METOCLOPRAMIDE HCL 10 MG/10 ML UDC GT SCH ×4 (06:27→23:57)
[2019-09-22 08:00] VITALS: BP 108/69
[2019-09-22] MEDS: DOCUSATE SODIUM 100 MG/10 ML LIQUID UDC GT SCH (08:00)
[2019-09-22] MEDS: POTASSIUM CHLORIDE 40 MEQ/30 ML LIQUID UDC GT SCH (08:01)
[2019-09-22] MEDS: levETIRAcetam 500 MG/5 ML LIQUID UDC GT SCH ×2 (08:01→20:33)
[2019-09-22] MEDS: ACIDOPHILUS/BULGARICUS CHEW TAB GT SCH ×2 (08:01→20:33)
[2019-09-22] MEDS: MIRALAX 17 GM POWD.PACK GT SCH (08:01)
[2019-09-22] MEDS: COD LIVER OIL/ZINC OXIDE OINT 113 GM TUBE TP SCH ×2 (08:02→20:35)
[2019-09-22] MEDS: NEOMY/BACITRA/POLYMYXIN B OINT UD PACKET TP SCH ×2 (08:02→20:35)
[2019-09-22] MEDS: HYDROGEN PEROXIDE 3% 118 ML BOTTLE TP SCH ×2 (08:10→21:00)
[2019-09-22] MEDS: TWOCAL HN 1,000 ML LIQUID GT PRN (18:19)
[2019-09-22] MEDS: MELATONIN 3 MG TABLET GT SCH (20:33)
[2019-09-22] MEDS: CRANBERRY 500 MG GT SCH (20:33)
[2019-09-22] MEDS: MAGNESIUM COMPLEX GT SCH (20:33)
[2019-09-22] MEDS: PROTEIN SUPPLEMENT (PROSTAT) 30 ML LIQUID GT SCH (20:34)
[2019-09-22] MEDS: ASCORBIC ACID 500 MG TABLET GT SCH (20:34)
[2019-09-22] MEDS: NUTRISOURCE FIBER 4 GM PACKET GT SCH (20:34)
[2019-09-22] MEDS: RIVAROXABAN 15 MG TABLET GT SCH (20:35)
--- NOTE | 2019-09-22 22:03 | NUR ---
Awake, afebrile, trach is intact and patent, no respiratory distress noted. Still on Bactrim DS via gt for GT cellulitis, no adverse reactions noted, no drainage discharge noted, GT care done, no signs of any discomfort noted.
[2019-09-22 22:08] VITALS: BP 107/63
[2019-09-23] MEDS: SULFAMETH/TRIMETH 800/160 MG TABLET PO SCH ×2 (05:03→17:04)
[2019-09-23] MEDS: MULTIVIT, IRON, MIN NO. 8, FA TABLET GT SCH (05:03)
[2019-09-23] MEDS: METOCLOPRAMIDE HCL 10 MG/10 ML UDC GT SCH ×3 (05:03→17:04)
[2019-09-23] MEDS: BACLOFEN 20 MG TABLET GT SCH ×3 (05:03→21:25)
[2019-09-23] MEDS: OMEPRAZOLE 20 MG CAPSULE.DR GT SCH (05:03)
[2019-09-23] MEDS: HYDROGEN PEROXIDE 3% 118 ML BOTTLE TP SCH ×2 (07:15→21:20)
[2019-09-23 08:08] VITALS: BP 95/58
[2019-09-23] MEDS: DOCUSATE SODIUM 100 MG/10 ML LIQUID UDC GT SCH (08:56)
[2019-09-23] MEDS: ACIDOPHILUS/BULGARICUS CHEW TAB GT SCH ×2 (08:57→20:43)
[2019-09-23] MEDS: POTASSIUM CHLORIDE 40 MEQ/30 ML LIQUID UDC GT SCH (08:57)
[2019-09-23] MEDS: levETIRAcetam 500 MG/5 ML LIQUID UDC GT SCH ×2 (08:57→20:44)
[2019-09-23] MEDS: MIRALAX 17 GM POWD.PACK GT SCH (08:57)
[2019-09-23] MEDS: COD LIVER OIL/ZINC OXIDE OINT 113 GM TUBE TP SCH ×2 (08:57→20:45)
[2019-09-23] MEDS: NEOMY/BACITRA/POLYMYXIN B OINT UD PACKET TP SCH ×2 (09:30→20:45)
[2019-09-23] MEDS: NUTRISOURCE FIBER 4 GM PACKET GT SCH (20:44)
[2019-09-23] MEDS: CRANBERRY 500 MG GT SCH (20:44)
[2019-09-23] MEDS: MELATONIN 3 MG TABLET GT SCH (20:44)
[2019-09-23] MEDS: PROTEIN SUPPLEMENT (PROSTAT) 30 ML LIQUID GT SCH (20:44)
[2019-09-23] MEDS: MAGNESIUM COMPLEX GT SCH (20:44)
[2019-09-23] MEDS: RIVAROXABAN 15 MG TABLET GT SCH (20:45)
[2019-09-23] MEDS: ASCORBIC ACID 500 MG TABLET GT SCH (20:45)
[2019-09-23 22:13] VITALS: BP 110/71
--- NOTE | 2019-09-23 22:30 | NUR ---
Remains on Bactrim DS via gt for old Gt site cellulitis, no adverse reactions noted, good gt site care. gt site noted redness, no discharges noted, will continue monitor.
[2019-09-24] MEDS: METOCLOPRAMIDE HCL 10 MG/10 ML UDC GT SCH ×4 (00:55→17:31)
[2019-09-24] MEDS: MULTIVIT, IRON, MIN NO. 8, FA TABLET GT SCH (05:07)
[2019-09-24] MEDS: OMEPRAZOLE 20 MG CAPSULE.DR GT SCH (05:07)
[2019-09-24] MEDS: SULFAMETH/TRIMETH 800/160 MG TABLET PO SCH ×2 (05:07→17:32)
[2019-09-24] MEDS: BACLOFEN 20 MG TABLET GT SCH ×3 (05:07→22:09)
[2019-09-24] MEDS: HYDROGEN PEROXIDE 3% 118 ML BOTTLE TP SCH ×2 (08:04→21:41)
[2019-09-24] MEDS: POTASSIUM CHLORIDE 40 MEQ/30 ML LIQUID UDC GT SCH (09:54)
[2019-09-24] MEDS: COD LIVER OIL/ZINC OXIDE OINT 113 GM TUBE TP SCH ×2 (09:54→20:31)
[2019-09-24] MEDS: ACIDOPHILUS/BULGARICUS CHEW TAB GT SCH ×2 (09:54→20:29)
[2019-09-24] MEDS: levETIRAcetam 500 MG/5 ML LIQUID UDC GT SCH ×2 (09:54→20:29)
[2019-09-24] MEDS: MIRALAX 17 GM POWD.PACK GT SCH (09:54)
[2019-09-24] MEDS: DOCUSATE SODIUM 100 MG/10 ML LIQUID UDC GT SCH (09:54)
[2019-09-24] MEDS: NEOMY/BACITRA/POLYMYXIN B OINT UD PACKET TP SCH ×2 (09:55→20:31)
[2019-09-24 11:03] VITALS: BP 108/68
[2019-09-24] MEDS: RIVAROXABAN 15 MG TABLET GT SCH (20:28)
[2019-09-24] MEDS: CRANBERRY 500 MG GT SCH (20:31)
[2019-09-24] MEDS: MAGNESIUM COMPLEX GT SCH (20:31)
[2019-09-24] MEDS: PROTEIN SUPPLEMENT (PROSTAT) 30 ML LIQUID GT SCH (20:31)
[2019-09-24] MEDS: NUTRISOURCE FIBER 4 GM PACKET GT SCH (20:31)
[2019-09-24] MEDS: MELATONIN 3 MG TABLET GT SCH (20:31)
[2019-09-24] MEDS: ASCORBIC ACID 500 MG TABLET GT SCH (20:31)
[2019-09-24 22:17] VITALS: BP 112/78
[2019-09-25] MEDS: METOCLOPRAMIDE HCL 10 MG/10 ML UDC GT SCH ×4 (00:01→17:42)
[2019-09-25] MEDS: TWOCAL HN 1,000 ML LIQUID GT PRN (01:38)
[2019-09-25] MEDS: MULTIVIT, IRON, MIN NO. 8, FA TABLET GT SCH (05:09)
[2019-09-25] MEDS: SULFAMETH/TRIMETH 800/160 MG TABLET PO SCH ×2 (05:09→17:42)
[2019-09-25] MEDS: OMEPRAZOLE 20 MG CAPSULE.DR GT SCH (05:09)
[2019-09-25] MEDS: BACLOFEN 20 MG TABLET GT SCH ×3 (05:09→21:55)
[2019-09-25] MEDS: DOCUSATE SODIUM 100 MG/10 ML LIQUID UDC GT SCH (08:49)
[2019-09-25] MEDS: ACIDOPHILUS/BULGARICUS CHEW TAB GT SCH ×2 (08:49→20:39)
[2019-09-25] MEDS: levETIRAcetam 500 MG/5 ML LIQUID UDC GT SCH ×2 (08:50→20:39)
[2019-09-25] MEDS: POTASSIUM CHLORIDE 40 MEQ/30 ML LIQUID UDC GT SCH (08:53)
[2019-09-25] MEDS: COD LIVER OIL/ZINC OXIDE OINT 113 GM TUBE TP SCH ×2 (08:53→20:41)
[2019-09-25] MEDS: MIRALAX 17 GM POWD.PACK GT SCH (08:53)
[2019-09-25] MEDS: NEOMY/BACITRA/POLYMYXIN B OINT UD PACKET TP SCH ×2 (08:54→20:41)
[2019-09-25 09:22] VITALS: BP 91/42
[2019-09-25] MEDS: HYDROGEN PEROXIDE 3% 118 ML BOTTLE TP SCH ×2 (09:51→21:19)
[2019-09-25] MEDS: RIVAROXABAN 15 MG TABLET GT SCH (20:38)
[2019-09-25] MEDS: MELATONIN 3 MG TABLET GT SCH (20:40)
[2019-09-25] MEDS: CRANBERRY 500 MG GT SCH (20:40)
[2019-09-25] MEDS: MAGNESIUM COMPLEX GT SCH (20:40)
[2019-09-25] MEDS: PROTEIN SUPPLEMENT (PROSTAT) 30 ML LIQUID GT SCH (20:41)
[2019-09-25] MEDS: NUTRISOURCE FIBER 4 GM PACKET GT SCH (20:41)
[2019-09-25] MEDS: ASCORBIC ACID 500 MG TABLET GT SCH (20:41)
[2019-09-25 20:57] VITALS: BP 108/55
[2019-09-26] MEDS: METOCLOPRAMIDE HCL 10 MG/10 ML UDC GT SCH ×4 (06:02→17:01)
[2019-09-26] MEDS: BACLOFEN 20 MG TABLET GT SCH ×3 (06:02→22:01)
[2019-09-26] MEDS: SULFAMETH/TRIMETH 800/160 MG TABLET PO SCH (06:02)
[2019-09-26] MEDS: OMEPRAZOLE 20 MG CAPSULE.DR GT SCH (06:02)
[2019-09-26] MEDS: MULTIVIT, IRON, MIN NO. 8, FA TABLET GT SCH (06:02)
[2019-09-26] MEDS: TWOCAL HN 1,000 ML LIQUID GT PRN (06:48)
[2019-09-26] MEDS: ACIDOPHILUS/BULGARICUS CHEW TAB GT SCH ×2 (08:28→20:46)
[2019-09-26] MEDS: MIRALAX 17 GM POWD.PACK GT SCH (08:28)
[2019-09-26] MEDS: NEOMY/BACITRA/POLYMYXIN B OINT UD PACKET TP SCH ×2 (08:28→20:48)
[2019-09-26] MEDS: POTASSIUM CHLORIDE 40 MEQ/30 ML LIQUID UDC GT SCH (08:28)
[2019-09-26] MEDS: COD LIVER OIL/ZINC OXIDE OINT 113 GM TUBE TP SCH ×2 (08:28→20:48)
[2019-09-26] MEDS: DOCUSATE SODIUM 100 MG/10 ML LIQUID UDC GT SCH (08:28)
[2019-09-26] MEDS: levETIRAcetam 500 MG/5 ML LIQUID UDC GT SCH ×2 (08:28→20:46)
[2019-09-26] MEDS: HYDROGEN PEROXIDE 3% 118 ML BOTTLE TP SCH ×2 (09:00→21:09)
[2019-09-26 09:08] VITALS: BP 96/59
[2019-09-26 20:00] VITALS: BP 100/55
[2019-09-26] MEDS: MELATONIN 3 MG TABLET GT SCH (20:46)
[2019-09-26] MEDS: NUTRISOURCE FIBER 4 GM PACKET GT SCH (20:47)
[2019-09-26] MEDS: CRANBERRY 500 MG GT SCH (20:47)
[2019-09-26] MEDS: MAGNESIUM COMPLEX GT SCH (20:47)
[2019-09-26] MEDS: ASCORBIC ACID 500 MG TABLET GT SCH (20:48)
[2019-09-26] MEDS: PROTEIN SUPPLEMENT (PROSTAT) 30 ML LIQUID GT SCH (20:48)
[2019-09-26] MEDS: RIVAROXABAN 15 MG TABLET GT SCH (20:50)
[2019-09-27] MEDS: METOCLOPRAMIDE HCL 10 MG/10 ML UDC GT SCH ×4 (00:14→18:23)
[2019-09-27] MEDS: MULTIVIT, IRON, MIN NO. 8, FA TABLET GT SCH (05:11)
[2019-09-27] MEDS: OMEPRAZOLE 20 MG CAPSULE.DR GT SCH (05:11)
[2019-09-27] MEDS: BACLOFEN 20 MG TABLET GT SCH ×3 (05:11→22:37)
[2019-09-27] MEDS: TWOCAL HN 1,000 ML LIQUID GT PRN (07:06)
[2019-09-27] MEDS: ACIDOPHILUS/BULGARICUS CHEW TAB GT SCH ×2 (08:28→20:40)
[2019-09-27] MEDS: levETIRAcetam 500 MG/5 ML LIQUID UDC GT SCH ×2 (08:28→20:40)
[2019-09-27] MEDS: DOCUSATE SODIUM 100 MG/10 ML LIQUID UDC GT SCH (08:28)
[2019-09-27] MEDS: MIRALAX 17 GM POWD.PACK GT SCH (08:29)
[2019-09-27] MEDS: POTASSIUM CHLORIDE 40 MEQ/30 ML LIQUID UDC GT SCH (08:30)
[2019-09-27] MEDS: NEOMY/BACITRA/POLYMYXIN B OINT UD PACKET TP SCH ×2 (08:31→20:46)
[2019-09-27] MEDS: COD LIVER OIL/ZINC OXIDE OINT 113 GM TUBE TP SCH ×2 (08:31→20:46)
[2019-09-27] MEDS: HYDROGEN PEROXIDE 3% 118 ML BOTTLE TP SCH ×2 (09:00→21:27)
[2019-09-27 11:23] VITALS: BP 105/64
[2019-09-27 20:00] VITALS: BP 124/76
[2019-09-27] MEDS: NUTRISOURCE FIBER 4 GM PACKET GT SCH (20:40)
[2019-09-27] MEDS: MAGNESIUM COMPLEX GT SCH (20:40)
[2019-09-27] MEDS: CRANBERRY 500 MG GT SCH (20:40)
[2019-09-27] MEDS: MELATONIN 3 MG TABLET GT SCH (20:40)
[2019-09-27] MEDS: PROTEIN SUPPLEMENT (PROSTAT) 30 ML LIQUID GT SCH (20:44)
[2019-09-27] MEDS: ASCORBIC ACID 500 MG TABLET GT SCH (20:44)
[2019-09-27] MEDS: RIVAROXABAN 15 MG TABLET GT SCH (20:45)
[2019-09-28] MEDS: METOCLOPRAMIDE HCL 10 MG/10 ML UDC GT SCH ×4 (00:13→17:55)
[2019-09-28] MEDS: BACLOFEN 20 MG TABLET GT SCH ×3 (05:28→21:18)
[2019-09-28] MEDS: OMEPRAZOLE 20 MG CAPSULE.DR GT SCH (05:28)
[2019-09-28] MEDS: MULTIVIT, IRON, MIN NO. 8, FA TABLET GT SCH (05:28)
[2019-09-28 08:30] VITALS: BP 113/74
[2019-09-28] MEDS: HYDROGEN PEROXIDE 3% 118 ML BOTTLE TP SCH ×2 (09:00→21:00)
[2019-09-28] MEDS: POTASSIUM CHLORIDE 40 MEQ/30 ML LIQUID UDC GT SCH (09:06)
[2019-09-28] MEDS: DOCUSATE SODIUM 100 MG/10 ML LIQUID UDC GT SCH (09:06)
[2019-09-28] MEDS: ACIDOPHILUS/BULGARICUS CHEW TAB GT SCH ×2 (09:06→21:16)
[2019-09-28] MEDS: levETIRAcetam 500 MG/5 ML LIQUID UDC GT SCH ×2 (09:06→21:16)
[2019-09-28] MEDS: MIRALAX 17 GM POWD.PACK GT SCH (09:06)
[2019-09-28] MEDS: NEOMY/BACITRA/POLYMYXIN B OINT UD PACKET TP SCH ×2 (09:07→21:17)
[2019-09-28] MEDS: COD LIVER OIL/ZINC OXIDE OINT 113 GM TUBE TP SCH ×2 (09:07→21:17)
[2019-09-28 20:00] VITALS: BP 124/75
[2019-09-28] MEDS: MAGNESIUM COMPLEX GT SCH (21:16)
[2019-09-28] MEDS: CRANBERRY 500 MG GT SCH (21:16)
[2019-09-28] MEDS: MELATONIN 3 MG TABLET GT SCH (21:16)
[2019-09-28] MEDS: NUTRISOURCE FIBER 4 GM PACKET GT SCH (21:17)
[2019-09-28] MEDS: ASCORBIC ACID 500 MG TABLET GT SCH (21:17)
[2019-09-28] MEDS: PROTEIN SUPPLEMENT (PROSTAT) 30 ML LIQUID GT SCH (21:17)
[2019-09-28] MEDS: RIVAROXABAN 15 MG TABLET GT SCH (21:35)
[2019-09-29] MEDS: METOCLOPRAMIDE HCL 10 MG/10 ML UDC GT SCH ×4 (00:18→17:01)
[2019-09-29] MEDS: OMEPRAZOLE 20 MG CAPSULE.DR GT SCH (06:03)
[2019-09-29] MEDS: BACLOFEN 20 MG TABLET GT SCH ×3 (06:03→21:12)
[2019-09-29] MEDS: MULTIVIT, IRON, MIN NO. 8, FA TABLET GT SCH (06:03)
[2019-09-29 08:05] VITALS: BP 110/65
[2019-09-29] MEDS: DOCUSATE SODIUM 100 MG/10 ML LIQUID UDC GT SCH (08:53)
[2019-09-29] MEDS: levETIRAcetam 500 MG/5 ML LIQUID UDC GT SCH ×2 (08:54→21:08)
[2019-09-29] MEDS: ACIDOPHILUS/BULGARICUS CHEW TAB GT SCH ×2 (08:54→21:08)
[2019-09-29] MEDS: POTASSIUM CHLORIDE 40 MEQ/30 ML LIQUID UDC GT SCH (08:55)
[2019-09-29] MEDS: MIRALAX 17 GM POWD.PACK GT SCH (08:55)
[2019-09-29] MEDS: NEOMY/BACITRA/POLYMYXIN B OINT UD PACKET TP SCH ×2 (08:55→21:12)
[2019-09-29] MEDS: COD LIVER OIL/ZINC OXIDE OINT 113 GM TUBE TP SCH ×2 (08:55→21:11)
[2019-09-29] MEDS: HYDROGEN PEROXIDE 3% 118 ML BOTTLE TP SCH ×2 (09:58→21:00)
[2019-09-29 20:00] VITALS: BP 126/77
[2019-09-29] MEDS: NUTRISOURCE FIBER 4 GM PACKET GT SCH (21:08)
[2019-09-29] MEDS: MELATONIN 3 MG TABLET GT SCH (21:08)
[2019-09-29] MEDS: CRANBERRY 500 MG GT SCH (21:08)
[2019-09-29] MEDS: PROTEIN SUPPLEMENT (PROSTAT) 30 ML LIQUID GT SCH (21:08)
[2019-09-29] MEDS: ASCORBIC ACID 500 MG TABLET GT SCH (21:08)
[2019-09-29] MEDS: MAGNESIUM COMPLEX GT SCH (21:08)
[2019-09-29] MEDS: RIVAROXABAN 15 MG TABLET GT SCH (21:34)
[2019-09-30] MEDS: METOCLOPRAMIDE HCL 10 MG/10 ML UDC GT SCH ×4 (00:23→17:26)
[2019-09-30] MEDS: BACLOFEN 20 MG TABLET GT SCH ×3 (05:17→21:12)
[2019-09-30] MEDS: MULTIVIT, IRON, MIN NO. 8, FA TABLET GT SCH (05:17)
[2019-09-30] MEDS: OMEPRAZOLE 20 MG CAPSULE.DR GT SCH (05:17)
[2019-09-30 08:05] VITALS: BP 91/58
[2019-09-30] MEDS: ACIDOPHILUS/BULGARICUS CHEW TAB GT SCH ×2 (08:56→21:12)
[2019-09-30] MEDS: DOCUSATE SODIUM 100 MG/10 ML LIQUID UDC GT SCH (08:56)
[2019-09-30] MEDS: levETIRAcetam 500 MG/5 ML LIQUID UDC GT SCH ×2 (08:56→21:12)
[2019-09-30] MEDS: POTASSIUM CHLORIDE 40 MEQ/30 ML LIQUID UDC GT SCH (08:57)
[2019-09-30] MEDS: MIRALAX 17 GM POWD.PACK GT SCH (08:57)
[2019-09-30] MEDS: COD LIVER OIL/ZINC OXIDE OINT 113 GM TUBE TP SCH ×2 (08:58→21:12)
[2019-09-30] MEDS: HYDROGEN PEROXIDE 3% 118 ML BOTTLE TP SCH ×2 (09:00→21:01)
[2019-09-30] MEDS: NEOMY/BACITRA/POLYMYXIN B OINT UD PACKET TP SCH ×2 (09:00→21:12)
[2019-09-30 20:00] VITALS: BP 125/75
[2019-09-30] MEDS: PROTEIN SUPPLEMENT (PROSTAT) 30 ML LIQUID GT SCH (21:12)
[2019-09-30] MEDS: MELATONIN 3 MG TABLET GT SCH (21:12)
[2019-09-30] MEDS: ASCORBIC ACID 500 MG TABLET GT SCH (21:12)
[2019-09-30] MEDS: CRANBERRY 500 MG GT SCH (21:12)
[2019-09-30] MEDS: NUTRISOURCE FIBER 4 GM PACKET GT SCH (21:12)
[2019-09-30] MEDS: MAGNESIUM COMPLEX GT SCH (21:12)
[2019-09-30] MEDS: RIVAROXABAN 15 MG TABLET GT SCH (21:38)
[2019-10-01] MEDS: METOCLOPRAMIDE HCL 10 MG/10 ML UDC GT SCH ×4 (00:24→18:01)
[2019-10-01] MEDS: TWOCAL HN 1,000 ML LIQUID GT PRN (04:09)
[2019-10-01] MEDS: OMEPRAZOLE 20 MG CAPSULE.DR GT SCH (05:46)
[2019-10-01] MEDS: MULTIVIT, IRON, MIN NO. 8, FA TABLET GT SCH (05:46)
[2019-10-01] MEDS: BACLOFEN 20 MG TABLET GT SCH ×3 (05:46→21:33)
[2019-10-01] MEDS: levETIRAcetam 500 MG/5 ML LIQUID UDC GT SCH ×2 (08:29→20:35)
[2019-10-01] MEDS: DOCUSATE SODIUM 100 MG/10 ML LIQUID UDC GT SCH (08:29)
[2019-10-01] MEDS: ACIDOPHILUS/BULGARICUS CHEW TAB GT SCH ×2 (08:29→20:35)
[2019-10-01] MEDS: POTASSIUM CHLORIDE 40 MEQ/30 ML LIQUID UDC GT SCH (08:32)
[2019-10-01] MEDS: MIRALAX 17 GM POWD.PACK GT SCH (08:32)
[2019-10-01] MEDS: COD LIVER OIL/ZINC OXIDE OINT 113 GM TUBE TP SCH ×2 (08:33→20:36)
[2019-10-01] MEDS: NEOMY/BACITRA/POLYMYXIN B OINT UD PACKET TP SCH ×2 (08:33→20:36)
[2019-10-01] MEDS: HYDROGEN PEROXIDE 3% 118 ML BOTTLE TP SCH ×2 (09:00→20:10)
[2019-10-01 11:15] VITALS: BP 91/50
[2019-10-01] MEDS: MELATONIN 3 MG TABLET GT SCH (20:35)
[2019-10-01] MEDS: PROTEIN SUPPLEMENT (PROSTAT) 30 ML LIQUID GT SCH (20:35)
[2019-10-01] MEDS: ASCORBIC ACID 500 MG TABLET GT SCH (20:35)
[2019-10-01] MEDS: CRANBERRY 500 MG GT SCH (20:35)
[2019-10-01] MEDS: MAGNESIUM COMPLEX GT SCH (20:35)
[2019-10-01] MEDS: NUTRISOURCE FIBER 4 GM PACKET GT SCH (20:35)
[2019-10-01 20:47] VITALS: BP 122/76
[2019-10-01] MEDS: RIVAROXABAN 15 MG TABLET GT SCH (21:30)
[2019-10-02] MEDS: METOCLOPRAMIDE HCL 10 MG/10 ML UDC GT SCH ×4 (00:49→17:30)
[2019-10-02] MEDS: BACLOFEN 20 MG TABLET GT SCH ×3 (05:22→21:03)
[2019-10-02] MEDS: MULTIVIT, IRON, MIN NO. 8, FA TABLET GT SCH (05:23)
[2019-10-02] MEDS: OMEPRAZOLE 20 MG CAPSULE.DR GT SCH (05:23)
[2019-10-02] MEDS: levETIRAcetam 500 MG/5 ML LIQUID UDC GT SCH ×2 (08:55→20:27)
[2019-10-02] MEDS: DOCUSATE SODIUM 100 MG/10 ML LIQUID UDC GT SCH (08:55)
[2019-10-02] MEDS: ACIDOPHILUS/BULGARICUS CHEW TAB GT SCH ×2 (08:55→20:27)
[2019-10-02] MEDS: POTASSIUM CHLORIDE 40 MEQ/30 ML LIQUID UDC GT SCH (08:55)
[2019-10-02] MEDS: NEOMY/BACITRA/POLYMYXIN B OINT UD PACKET TP SCH ×2 (08:55→20:29)
[2019-10-02] MEDS: MIRALAX 17 GM POWD.PACK GT SCH (08:55)
[2019-10-02] MEDS: COD LIVER OIL/ZINC OXIDE OINT 113 GM TUBE TP SCH ×2 (08:55→20:28)
[2019-10-02] MEDS: HYDROGEN PEROXIDE 3% 118 ML BOTTLE TP SCH ×2 (09:46→21:28)
--- NOTE | 2019-10-02 16:00 | NUR ---
SEEN AND EXAMINED BY INDIANA GRANT.
[2019-10-02] MEDS: MELATONIN 3 MG TABLET GT SCH (20:27)
[2019-10-02] MEDS: PROTEIN SUPPLEMENT (PROSTAT) 30 ML LIQUID GT SCH (20:28)
[2019-10-02] MEDS: ASCORBIC ACID 500 MG TABLET GT SCH (20:28)
[2019-10-02] MEDS: NUTRISOURCE FIBER 4 GM PACKET GT SCH (20:28)
[2019-10-02] MEDS: MAGNESIUM COMPLEX GT SCH (20:28)
[2019-10-02] MEDS: CRANBERRY 500 MG GT SCH (20:28)
[2019-10-02] MEDS: RIVAROXABAN 15 MG TABLET GT SCH (20:29)
[2019-10-02 22:06] VITALS: BP 118/67
[2019-10-03] MEDS: MULTIVIT, IRON, MIN NO. 8, FA TABLET GT SCH (05:32)
[2019-10-03] MEDS: METOCLOPRAMIDE HCL 10 MG/10 ML UDC GT SCH ×4 (05:32→17:35)
[2019-10-03] MEDS: OMEPRAZOLE 20 MG CAPSULE.DR GT SCH (05:32)
[2019-10-03] MEDS: BACLOFEN 20 MG TABLET GT SCH ×3 (05:32→21:04)
[2019-10-03] MEDS: TWOCAL HN 1,000 ML LIQUID GT PRN (05:33)
[2019-10-03] MEDS: COD LIVER OIL/ZINC OXIDE OINT 113 GM TUBE TP SCH ×2 (08:50→20:51)
[2019-10-03] MEDS: ACIDOPHILUS/BULGARICUS CHEW TAB GT SCH ×2 (08:50→20:46)
[2019-10-03] MEDS: MIRALAX 17 GM POWD.PACK GT SCH (08:50)
[2019-10-03] MEDS: levETIRAcetam 500 MG/5 ML LIQUID UDC GT SCH ×2 (08:50→20:46)
[2019-10-03] MEDS: POTASSIUM CHLORIDE 40 MEQ/30 ML LIQUID UDC GT SCH (08:50)
[2019-10-03] MEDS: DOCUSATE SODIUM 100 MG/10 ML LIQUID UDC GT SCH (08:50)
[2019-10-03] MEDS: HYDROGEN PEROXIDE 3% 118 ML BOTTLE TP SCH ×2 (09:50→21:11)
[2019-10-03 11:09] VITALS: BP 90/45
[2019-10-03] MEDS: CRANBERRY 500 MG GT SCH (20:46)
[2019-10-03] MEDS: MELATONIN 3 MG TABLET GT SCH (20:46)
[2019-10-03] MEDS: MAGNESIUM COMPLEX GT SCH (20:47)
[2019-10-03] MEDS: NUTRISOURCE FIBER 4 GM PACKET GT SCH (20:47)
[2019-10-03] MEDS: ASCORBIC ACID 500 MG TABLET GT SCH (20:48)
[2019-10-03] MEDS: PROTEIN SUPPLEMENT (PROSTAT) 30 ML LIQUID GT SCH (20:48)
[2019-10-03 20:53] VITALS: BP 119/72
[2019-10-03] MEDS: RIVAROXABAN 15 MG TABLET GT SCH (20:58)
[2019-10-04] MEDS: METOCLOPRAMIDE HCL 10 MG/10 ML UDC GT SCH ×4 (00:25→17:30)
[2019-10-04] MEDS: OMEPRAZOLE 20 MG CAPSULE.DR GT SCH (05:26)
[2019-10-04] MEDS: BACLOFEN 20 MG TABLET GT SCH ×3 (05:26→22:16)
[2019-10-04] MEDS: MULTIVIT, IRON, MIN NO. 8, FA TABLET GT SCH (05:26)
[2019-10-04 08:00] VITALS: BP 117/59
[2019-10-04] MEDS: ACIDOPHILUS/BULGARICUS CHEW TAB GT SCH ×2 (08:50→20:34)
[2019-10-04] MEDS: DOCUSATE SODIUM 100 MG/10 ML LIQUID UDC GT SCH (08:50)
[2019-10-04] MEDS: levETIRAcetam 500 MG/5 ML LIQUID UDC GT SCH ×2 (08:51→20:35)
[2019-10-04] MEDS: MIRALAX 17 GM POWD.PACK GT SCH (08:52)
[2019-10-04] MEDS: POTASSIUM CHLORIDE 40 MEQ/30 ML LIQUID UDC GT SCH (08:52)
[2019-10-04] MEDS: COD LIVER OIL/ZINC OXIDE OINT 113 GM TUBE TP SCH ×2 (08:54→20:37)
[2019-10-04] MEDS: HYDROGEN PEROXIDE 3% 118 ML BOTTLE TP SCH ×2 (09:56→21:20)
--- NOTE | 2019-10-04 15:58 | NUR ---
ISAÍAS met with patient's mother Jeanne and informed her that the next IDT meeting for the patient is scheduled for 10/10/2019 at 10am. ISAÍAS also asked Jeanne if she can let patient's father Abdi know about the meeting date and time, and Jeanne said she will let him know.
[2019-10-04 20:00] VITALS: BP 103/67
[2019-10-04] MEDS: MELATONIN 3 MG TABLET GT SCH (20:35)
[2019-10-04] MEDS: CRANBERRY 500 MG GT SCH (20:35)
[2019-10-04] MEDS: MAGNESIUM COMPLEX GT SCH (20:36)
[2019-10-04] MEDS: ASCORBIC ACID 500 MG TABLET GT SCH (20:36)
[2019-10-04] MEDS: NUTRISOURCE FIBER 4 GM PACKET GT SCH (20:36)
[2019-10-04] MEDS: PROTEIN SUPPLEMENT (PROSTAT) 30 ML LIQUID GT SCH (20:36)
[2019-10-04] MEDS: RIVAROXABAN 15 MG TABLET GT SCH (20:51)
[2019-10-05] MEDS: METOCLOPRAMIDE HCL 10 MG/10 ML UDC GT SCH ×4 (00:38→17:13)
[2019-10-05] MEDS: TWOCAL HN 1,000 ML LIQUID GT PRN (04:30)
[2019-10-05] MEDS: BACLOFEN 20 MG TABLET GT SCH ×3 (05:47→21:50)
[2019-10-05] MEDS: OMEPRAZOLE 20 MG CAPSULE.DR GT SCH (05:47)
[2019-10-05] MEDS: MULTIVIT, IRON, MIN NO. 8, FA TABLET GT SCH (05:47)
[2019-10-05 08:00] VITALS: BP 137/64
[2019-10-05] MEDS: HYDROGEN PEROXIDE 3% 118 ML BOTTLE TP SCH ×2 (08:02→20:57)
[2019-10-05] MEDS: POTASSIUM CHLORIDE 40 MEQ/30 ML LIQUID UDC GT SCH (08:39)
[2019-10-05] MEDS: COD LIVER OIL/ZINC OXIDE OINT 113 GM TUBE TP SCH ×2 (08:39→21:50)
[2019-10-05] MEDS: MIRALAX 17 GM POWD.PACK GT SCH (08:39)
[2019-10-05] MEDS: DOCUSATE SODIUM 100 MG/10 ML LIQUID UDC GT SCH (08:39)
[2019-10-05] MEDS: ACIDOPHILUS/BULGARICUS CHEW TAB GT SCH ×2 (08:39→21:50)
[2019-10-05] MEDS: levETIRAcetam 500 MG/5 ML LIQUID UDC GT SCH ×2 (08:39→21:50)
--- NOTE | 2019-10-05 19:00 | NUR ---
SEEN BY WITH NNO.
[2019-10-05 20:40] VITALS: BP 125/67
[2019-10-05] MEDS: PROTEIN SUPPLEMENT (PROSTAT) 30 ML LIQUID GT SCH (21:50)
[2019-10-05] MEDS: MAGNESIUM COMPLEX GT SCH (21:50)
[2019-10-05] MEDS: RIVAROXABAN 15 MG TABLET GT SCH (21:50)
[2019-10-05] MEDS: ASCORBIC ACID 500 MG TABLET GT SCH (21:50)
[2019-10-05] MEDS: NUTRISOURCE FIBER 4 GM PACKET GT SCH (21:50)
[2019-10-05] MEDS: MELATONIN 3 MG TABLET GT SCH (21:50)
[2019-10-05] MEDS: CRANBERRY 500 MG GT SCH (21:50)
[2019-10-06] MEDS: METOCLOPRAMIDE HCL 10 MG/10 ML UDC GT SCH ×5 (00:50→23:04)
[2019-10-06] MEDS: MULTIVIT, IRON, MIN NO. 8, FA TABLET GT SCH (06:06)
[2019-10-06] MEDS: BACLOFEN 20 MG TABLET GT SCH ×3 (06:06→21:00)
[2019-10-06] MEDS: OMEPRAZOLE 20 MG CAPSULE.DR GT SCH (06:06)
[2019-10-06 08:00] VITALS: BP 100/64
[2019-10-06] MEDS: ACIDOPHILUS/BULGARICUS CHEW TAB GT SCH ×2 (08:27→20:59)
[2019-10-06] MEDS: levETIRAcetam 500 MG/5 ML LIQUID UDC GT SCH ×2 (08:27→20:59)
[2019-10-06] MEDS: MIRALAX 17 GM POWD.PACK GT SCH (08:27)
[2019-10-06] MEDS: DOCUSATE SODIUM 100 MG/10 ML LIQUID UDC GT SCH (08:27)
[2019-10-06] MEDS: POTASSIUM CHLORIDE 40 MEQ/30 ML LIQUID UDC GT SCH (08:28)
[2019-10-06] MEDS: COD LIVER OIL/ZINC OXIDE OINT 113 GM TUBE TP SCH ×2 (08:28→21:00)
[2019-10-06] MEDS: HYDROGEN PEROXIDE 3% 118 ML BOTTLE TP SCH ×2 (09:55→21:48)
[2019-10-06 20:44] VITALS: BP 124/70
[2019-10-06] MEDS: RIVAROXABAN 15 MG TABLET GT SCH (20:59)
[2019-10-06] MEDS: MAGNESIUM COMPLEX GT SCH (20:59)
[2019-10-06] MEDS: MELATONIN 3 MG TABLET GT SCH (20:59)
[2019-10-06] MEDS: PROTEIN SUPPLEMENT (PROSTAT) 30 ML LIQUID GT SCH (20:59)
[2019-10-06] MEDS: CRANBERRY 500 MG GT SCH (20:59)
[2019-10-06] MEDS: NUTRISOURCE FIBER 4 GM PACKET GT SCH (20:59)
[2019-10-06] MEDS: ASCORBIC ACID 500 MG TABLET GT SCH (20:59)
[2019-10-06] MEDS: TWOCAL HN 1,000 ML LIQUID GT PRN (22:57)
[2019-10-07] MEDS: BACLOFEN 20 MG TABLET GT SCH ×3 (05:16→21:06)
[2019-10-07] MEDS: OMEPRAZOLE 20 MG CAPSULE.DR GT SCH (05:16)
[2019-10-07] MEDS: METOCLOPRAMIDE HCL 10 MG/10 ML UDC GT SCH ×4 (05:16→23:06)
[2019-10-07] MEDS: MULTIVIT, IRON, MIN NO. 8, FA TABLET GT SCH (05:16)
[2019-10-07 08:06] VITALS: BP 100/60
[2019-10-07] MEDS: ACIDOPHILUS/BULGARICUS CHEW TAB GT SCH ×2 (08:37→20:57)
[2019-10-07] MEDS: levETIRAcetam 500 MG/5 ML LIQUID UDC GT SCH ×2 (08:37→20:57)
[2019-10-07] MEDS: POTASSIUM CHLORIDE 40 MEQ/30 ML LIQUID UDC GT SCH (08:37)
[2019-10-07] MEDS: DOCUSATE SODIUM 100 MG/10 ML LIQUID UDC GT SCH (08:37)
[2019-10-07] MEDS: MIRALAX 17 GM POWD.PACK GT SCH (08:37)
[2019-10-07] MEDS: COD LIVER OIL/ZINC OXIDE OINT 113 GM TUBE TP SCH ×2 (08:38→20:57)
[2019-10-07] MEDS: HYDROGEN PEROXIDE 3% 118 ML BOTTLE TP SCH ×2 (09:47→21:00)
[2019-10-07 20:48] VITALS: BP 128/72
[2019-10-07] MEDS: PROTEIN SUPPLEMENT (PROSTAT) 30 ML LIQUID GT SCH (20:57)
[2019-10-07] MEDS: RIVAROXABAN 15 MG TABLET GT SCH (20:57)
[2019-10-07] MEDS: MAGNESIUM COMPLEX GT SCH (20:57)
[2019-10-07] MEDS: NUTRISOURCE FIBER 4 GM PACKET GT SCH (20:57)
[2019-10-07] MEDS: ASCORBIC ACID 500 MG TABLET GT SCH (20:57)
[2019-10-07] MEDS: CRANBERRY 500 MG GT SCH (20:57)
[2019-10-07] MEDS: MELATONIN 3 MG TABLET GT SCH (20:57)
[2019-10-08] MEDS: MULTIVIT, IRON, MIN NO. 8, FA TABLET GT SCH (05:24)
[2019-10-08] MEDS: BACLOFEN 20 MG TABLET GT SCH ×3 (05:24→21:09)
[2019-10-08] MEDS: OMEPRAZOLE 20 MG CAPSULE.DR GT SCH (05:24)
[2019-10-08] MEDS: METOCLOPRAMIDE HCL 10 MG/10 ML UDC GT SCH ×4 (05:24→23:06)
[2019-10-08 08:00] VITALS: BP 120/61
[2019-10-08] MEDS: DOCUSATE SODIUM 100 MG/10 ML LIQUID UDC GT SCH (08:38)
[2019-10-08] MEDS: levETIRAcetam 500 MG/5 ML LIQUID UDC GT SCH ×2 (08:43→21:08)
[2019-10-08] MEDS: POTASSIUM CHLORIDE 40 MEQ/30 ML LIQUID UDC GT SCH (08:43)
[2019-10-08] MEDS: COD LIVER OIL/ZINC OXIDE OINT 113 GM TUBE TP SCH ×2 (08:43→21:09)
[2019-10-08] MEDS: MIRALAX 17 GM POWD.PACK GT SCH (08:43)
[2019-10-08] MEDS: ACIDOPHILUS/BULGARICUS CHEW TAB GT SCH ×2 (08:43→21:08)
[2019-10-08] MEDS: HYDROGEN PEROXIDE 3% 118 ML BOTTLE TP SCH ×2 (09:19→21:06)
--- NOTE | 2019-10-08 13:19 | NUR ---
pT OUT ON PASS WITH SISTER AND FATHER,OFFERED THE PORTABLE SUCTION,SISTER REFUSED TO TAKE IT,BECAUSE SHE STATED"WE DON'T NEED IT,",I TOLD THEN IS BETTER TO TAKE IT IN CASE OF EMERGENCY,BUT STILL DON'T WANT IT.
[2019-10-08 20:59] VITALS: BP 100/69
[2019-10-08] MEDS: PROTEIN SUPPLEMENT (PROSTAT) 30 ML LIQUID GT SCH (21:08)
[2019-10-08] MEDS: NUTRISOURCE FIBER 4 GM PACKET GT SCH (21:08)
[2019-10-08] MEDS: MAGNESIUM COMPLEX GT SCH (21:08)
[2019-10-08] MEDS: CRANBERRY 500 MG GT SCH (21:08)
[2019-10-08] MEDS: MELATONIN 3 MG TABLET GT SCH (21:08)
[2019-10-08] MEDS: ASCORBIC ACID 500 MG TABLET GT SCH (21:08)
[2019-10-08] MEDS: RIVAROXABAN 15 MG TABLET GT SCH (21:09)
[2019-10-08] MEDS: TWOCAL HN 1,000 ML LIQUID GT PRN (21:31)
[2019-10-09] MEDS: METOCLOPRAMIDE HCL 10 MG/10 ML UDC GT SCH ×3 (05:02→17:38)
[2019-10-09] MEDS: OMEPRAZOLE 20 MG CAPSULE.DR GT SCH (05:02)
[2019-10-09] MEDS: BACLOFEN 20 MG TABLET GT SCH ×3 (05:02→21:48)
[2019-10-09] MEDS: MULTIVIT, IRON, MIN NO. 8, FA TABLET GT SCH (05:03)
[2019-10-09] MEDS: COD LIVER OIL/ZINC OXIDE OINT 113 GM TUBE TP SCH ×2 (08:18→20:36)
[2019-10-09] MEDS: MIRALAX 17 GM POWD.PACK GT SCH (08:18)
[2019-10-09] MEDS: ACIDOPHILUS/BULGARICUS CHEW TAB GT SCH ×2 (08:18→20:35)
[2019-10-09] MEDS: levETIRAcetam 500 MG/5 ML LIQUID UDC GT SCH ×2 (08:18→20:35)
[2019-10-09] MEDS: POTASSIUM CHLORIDE 40 MEQ/30 ML LIQUID UDC GT SCH (08:18)
[2019-10-09] MEDS: DOCUSATE SODIUM 100 MG/10 ML LIQUID UDC GT SCH (08:18)
[2019-10-09 09:20] VITALS: BP 90/61
[2019-10-09] MEDS: HYDROGEN PEROXIDE 3% 118 ML BOTTLE TP SCH ×2 (09:58→21:55)
[2019-10-09] MEDS: ASCORBIC ACID 500 MG TABLET GT SCH (20:35)
[2019-10-09] MEDS: NUTRISOURCE FIBER 4 GM PACKET GT SCH (20:35)
[2019-10-09] MEDS: MELATONIN 3 MG TABLET GT SCH (20:35)
[2019-10-09] MEDS: MAGNESIUM COMPLEX GT SCH (20:35)
[2019-10-09] MEDS: PROTEIN SUPPLEMENT (PROSTAT) 30 ML LIQUID GT SCH (20:35)
[2019-10-09] MEDS: CRANBERRY 500 MG GT SCH (20:35)
[2019-10-09] MEDS: RIVAROXABAN 15 MG TABLET GT SCH (20:36)
[2019-10-09 20:44] VITALS: BP 100/57
[2019-10-10] MEDS: MULTIVIT, IRON, MIN NO. 8, FA TABLET GT SCH (05:07)
[2019-10-10] MEDS: METOCLOPRAMIDE HCL 10 MG/10 ML UDC GT SCH ×4 (05:07→17:50)
[2019-10-10] MEDS: BACLOFEN 20 MG TABLET GT SCH ×3 (05:07→22:05)
[2019-10-10] MEDS: OMEPRAZOLE 20 MG CAPSULE.DR GT SCH (05:07)
[2019-10-10] MEDS: POTASSIUM CHLORIDE 40 MEQ/30 ML LIQUID UDC GT SCH (09:14)
[2019-10-10] MEDS: COD LIVER OIL/ZINC OXIDE OINT 113 GM TUBE TP SCH ×2 (09:14→20:48)
[2019-10-10] MEDS: ACIDOPHILUS/BULGARICUS CHEW TAB GT SCH ×2 (09:14→20:45)
[2019-10-10] MEDS: DOCUSATE SODIUM 100 MG/10 ML LIQUID UDC GT SCH (09:14)
[2019-10-10] MEDS: levETIRAcetam 500 MG/5 ML LIQUID UDC GT SCH ×2 (09:14→20:45)
[2019-10-10] MEDS: MIRALAX 17 GM POWD.PACK GT SCH (09:14)
[2019-10-10] MEDS: HYDROGEN PEROXIDE 3% 118 ML BOTTLE TP SCH ×2 (09:50→21:18)
[2019-10-10 10:34] VITALS: BP 91/45
--- NOTE | 2019-10-10 14:00 | NUR ---
Pt out [place] pass [place] with the Father,back in stable condition,but noted R eye is red,prn eye medication applied.today was windy outside,previously discuss with family regarding to avoid to take the patient to the [place] when is windy,very hot o cold.
--- NOTE | 2019-10-10 14:27 | NUR ---
Pharmacy Update from Today's 10/10/19 IDT Meeting: VS: Temp 97.8 BP 100/57 HR 57 LABS: (from 08/30/19, no new labs) Wbc 9.4 H/H 13.9/42.5 Plt 243 Na 142 K 4.4 Cl 105 CO2 31 BUN/SCr 17/0.6 BS 87 ca 9.3 phos 4.4 Mg 2.1 MEDICATION USE REVIEWED: > Pt not on any anti-psych medications > On Keppra 500mg q12h, last calculated CrCl was >100 ml/min. Renal fxn ok for current dosing. > On Xarelto 15mg daily, no bleeding noted, last plt was 243 > On KCl 20meq daily, last K 4.4 > PRN MED USAGE: (Sep) Tylenol for pain used x3 Artificial tears used x0 Bisacodyl used x0 Mucinex DM used x0 NEW ORDERS NOTED: > Bactrim for GT cellulitis 09/19-09/26 completed Pt was reviewed and discussed in depth with family in attendance with no medication issues noted. No further medication recommendations at this time, remains stable on current regimen. Will continue to monitor
--- NOTE | 2019-10-10 15:09 | NUR ---
INTERDISCIPLINARY PLAN OF CARE CONFERENCE was held today. Patient's father Abdi was present at the meeting. Dr. Cartagena and the Interdisciplinary Team reviewed the current plan of care in detail. RN reported on patient's medical condition. See RN IDT conference notes. No major changes in condition were reported. See all disciplines IDT notes and physician's progress notes for additional details. Abdi's questions were addressed by the team, and Abdi expressed being satisfied with the current plan of care.
[2019-10-10 20:10] VITALS: BP 106/69
[2019-10-10] MEDS: MELATONIN 3 MG TABLET GT SCH (20:45)
[2019-10-10] MEDS: MAGNESIUM COMPLEX GT SCH (20:46)
[2019-10-10] MEDS: CRANBERRY 500 MG GT SCH (20:46)
[2019-10-10] MEDS: NUTRISOURCE FIBER 4 GM PACKET GT SCH (20:46)
[2019-10-10] MEDS: ASCORBIC ACID 500 MG TABLET GT SCH (20:47)
[2019-10-10] MEDS: PROTEIN SUPPLEMENT (PROSTAT) 30 ML LIQUID GT SCH (20:47)
[2019-10-10] MEDS: RIVAROXABAN 15 MG TABLET GT SCH (20:48)
[2019-10-11] MEDS: METOCLOPRAMIDE HCL 10 MG/10 ML UDC GT SCH ×4 (00:18→17:43)
[2019-10-11] MEDS: OMEPRAZOLE 20 MG CAPSULE.DR GT SCH (05:39)
[2019-10-11] MEDS: MULTIVIT, IRON, MIN NO. 8, FA TABLET GT SCH (05:39)
[2019-10-11] MEDS: BACLOFEN 20 MG TABLET GT SCH ×3 (05:39→21:05)
[2019-10-11] MEDS: TWOCAL HN 1,000 ML LIQUID GT PRN (06:00)
[2019-10-11] MEDS: ACIDOPHILUS/BULGARICUS CHEW TAB GT SCH ×2 (08:22→20:55)
[2019-10-11] MEDS: COD LIVER OIL/ZINC OXIDE OINT 113 GM TUBE TP SCH ×2 (08:22→21:05)
[2019-10-11] MEDS: POTASSIUM CHLORIDE 40 MEQ/30 ML LIQUID UDC GT SCH (08:22)
[2019-10-11] MEDS: DOCUSATE SODIUM 100 MG/10 ML LIQUID UDC GT SCH (08:22)
[2019-10-11] MEDS: levETIRAcetam 500 MG/5 ML LIQUID UDC GT SCH ×2 (08:22→20:55)
[2019-10-11] MEDS: MIRALAX 17 GM POWD.PACK GT SCH (08:22)
[2019-10-11] MEDS: HYDROGEN PEROXIDE 3% 118 ML BOTTLE TP SCH ×2 (09:13→21:05)
[2019-10-11 11:01] VITALS: BP 95/41
[2019-10-11 20:15] VITALS: BP 103/63
[2019-10-11] MEDS: MELATONIN 3 MG TABLET GT SCH (20:55)
[2019-10-11] MEDS: CRANBERRY 500 MG GT SCH (20:56)
[2019-10-11] MEDS: MAGNESIUM COMPLEX GT SCH (21:00)
[2019-10-11] MEDS: PROTEIN SUPPLEMENT (PROSTAT) 30 ML LIQUID GT SCH (21:01)
[2019-10-11] MEDS: NUTRISOURCE FIBER 4 GM PACKET GT SCH (21:01)
[2019-10-11] MEDS: ASCORBIC ACID 500 MG TABLET GT SCH (21:02)
[2019-10-11] MEDS: RIVAROXABAN 15 MG TABLET GT SCH (21:05)
[2019-10-12] MEDS: MULTIVIT, IRON, MIN NO. 8, FA TABLET GT SCH (05:38)
[2019-10-12] MEDS: OMEPRAZOLE 20 MG CAPSULE.DR GT SCH (05:38)
[2019-10-12] MEDS: METOCLOPRAMIDE HCL 10 MG/10 ML UDC GT SCH ×4 (05:38→17:09)
[2019-10-12] MEDS: BACLOFEN 20 MG TABLET GT SCH ×3 (05:38→21:18)
[2019-10-12 08:00] VITALS: BP 120/69
[2019-10-12] MEDS: MIRALAX 17 GM POWD.PACK GT SCH (08:38)
[2019-10-12] MEDS: DOCUSATE SODIUM 100 MG/10 ML LIQUID UDC GT SCH (08:38)
[2019-10-12] MEDS: POTASSIUM CHLORIDE 40 MEQ/30 ML LIQUID UDC GT SCH (08:38)
[2019-10-12] MEDS: levETIRAcetam 500 MG/5 ML LIQUID UDC GT SCH ×2 (08:38→21:15)
[2019-10-12] MEDS: COD LIVER OIL/ZINC OXIDE OINT 113 GM TUBE TP SCH ×2 (08:38→21:18)
[2019-10-12] MEDS: ACIDOPHILUS/BULGARICUS CHEW TAB GT SCH ×2 (08:38→21:15)
[2019-10-12] MEDS: HYDROGEN PEROXIDE 3% 118 ML BOTTLE TP SCH ×2 (09:44→21:18)
--- NOTE | 2019-10-12 14:20 | NUR ---
SEEN BY DR. JOSE AND WITH NNO.
[2019-10-12 20:32] VITALS: BP 100/65
[2019-10-12] MEDS: MELATONIN 3 MG TABLET GT SCH (21:16)
[2019-10-12] MEDS: CRANBERRY 500 MG GT SCH (21:16)
[2019-10-12] MEDS: MAGNESIUM COMPLEX GT SCH (21:16)
[2019-10-12] MEDS: PROTEIN SUPPLEMENT (PROSTAT) 30 ML LIQUID GT SCH (21:17)
[2019-10-12] MEDS: NUTRISOURCE FIBER 4 GM PACKET GT SCH (21:17)
[2019-10-12] MEDS: ASCORBIC ACID 500 MG TABLET GT SCH (21:17)
[2019-10-12] MEDS: RIVAROXABAN 15 MG TABLET GT SCH (21:18)
[2019-10-13] MEDS: TWOCAL HN 1,000 ML LIQUID GT PRN (05:00)
[2019-10-13] MEDS: MULTIVIT, IRON, MIN NO. 8, FA TABLET GT SCH (06:11)
[2019-10-13] MEDS: BACLOFEN 20 MG TABLET GT SCH ×3 (06:11→21:30)
[2019-10-13] MEDS: OMEPRAZOLE 20 MG CAPSULE.DR GT SCH (06:11)
[2019-10-13] MEDS: METOCLOPRAMIDE HCL 10 MG/10 ML UDC GT SCH ×4 (06:11→17:35)
[2019-10-13 08:00] VITALS: BP 114/60
[2019-10-13] MEDS: MIRALAX 17 GM POWD.PACK GT SCH (08:53)
[2019-10-13] MEDS: ACIDOPHILUS/BULGARICUS CHEW TAB GT SCH ×2 (08:53→21:29)
[2019-10-13] MEDS: POTASSIUM CHLORIDE 40 MEQ/30 ML LIQUID UDC GT SCH (08:53)
[2019-10-13] MEDS: DOCUSATE SODIUM 100 MG/10 ML LIQUID UDC GT SCH (08:53)
[2019-10-13] MEDS: levETIRAcetam 500 MG/5 ML LIQUID UDC GT SCH ×2 (08:53→21:30)
[2019-10-13] MEDS: COD LIVER OIL/ZINC OXIDE OINT 113 GM TUBE TP SCH ×2 (08:54→21:30)
[2019-10-13] MEDS: HYDROGEN PEROXIDE 3% 118 ML BOTTLE TP SCH ×2 (09:00→21:41)
[2019-10-13] MEDS: PROTEIN SUPPLEMENT (PROSTAT) 30 ML LIQUID GT SCH (21:30)
[2019-10-13] MEDS: CRANBERRY 500 MG GT SCH (21:30)
[2019-10-13] MEDS: MAGNESIUM COMPLEX GT SCH (21:30)
[2019-10-13] MEDS: ASCORBIC ACID 500 MG TABLET GT SCH (21:30)
[2019-10-13] MEDS: NUTRISOURCE FIBER 4 GM PACKET GT SCH (21:30)
[2019-10-13] MEDS: MELATONIN 3 MG TABLET GT SCH (21:30)
[2019-10-13] MEDS: RIVAROXABAN 15 MG TABLET GT SCH (21:35)
[2019-10-13 22:38] VITALS: BP 104/67
[2019-10-14] MEDS: METOCLOPRAMIDE HCL 10 MG/10 ML UDC GT SCH ×4 (00:49→17:25)
[2019-10-14] MEDS: OMEPRAZOLE 20 MG CAPSULE.DR GT SCH (05:10)
[2019-10-14] MEDS: BACLOFEN 20 MG TABLET GT SCH ×3 (05:10→21:05)
[2019-10-14] MEDS: MULTIVIT, IRON, MIN NO. 8, FA TABLET GT SCH (06:00)
[2019-10-14] MEDS: levETIRAcetam 500 MG/5 ML LIQUID UDC GT SCH ×2 (08:31→21:05)
[2019-10-14] MEDS: ACIDOPHILUS/BULGARICUS CHEW TAB GT SCH ×2 (08:31→21:05)
[2019-10-14] MEDS: DOCUSATE SODIUM 100 MG/10 ML LIQUID UDC GT SCH (08:31)
[2019-10-14] MEDS: POTASSIUM CHLORIDE 40 MEQ/30 ML LIQUID UDC GT SCH (08:32)
[2019-10-14] MEDS: MIRALAX 17 GM POWD.PACK GT SCH (08:32)
[2019-10-14] MEDS: COD LIVER OIL/ZINC OXIDE OINT 113 GM TUBE TP SCH ×2 (08:33→21:05)
[2019-10-14] MEDS: HYDROGEN PEROXIDE 3% 118 ML BOTTLE TP SCH ×2 (09:00→21:45)
[2019-10-14 11:39] VITALS: BP 101/54
[2019-10-14] MEDS: CRANBERRY 500 MG GT SCH (21:05)
[2019-10-14] MEDS: ASCORBIC ACID 500 MG TABLET GT SCH (21:05)
[2019-10-14] MEDS: MAGNESIUM COMPLEX GT SCH (21:05)
[2019-10-14] MEDS: PROTEIN SUPPLEMENT (PROSTAT) 30 ML LIQUID GT SCH (21:05)
[2019-10-14] MEDS: MELATONIN 3 MG TABLET GT SCH (21:05)
[2019-10-14] MEDS: NUTRISOURCE FIBER 4 GM PACKET GT SCH (21:05)
[2019-10-14] MEDS: RIVAROXABAN 15 MG TABLET GT SCH (21:08)
[2019-10-14 22:10] VITALS: BP 93/61
[2019-10-15] MEDS: BACLOFEN 20 MG TABLET GT SCH ×3 (05:22→21:01)
[2019-10-15] MEDS: METOCLOPRAMIDE HCL 10 MG/10 ML UDC GT SCH ×4 (05:22→17:50)
[2019-10-15] MEDS: OMEPRAZOLE 20 MG CAPSULE.DR GT SCH (05:22)
[2019-10-15] MEDS: MULTIVIT, IRON, MIN NO. 8, FA TABLET GT SCH (05:22)
[2019-10-15] MEDS: DOCUSATE SODIUM 100 MG/10 ML LIQUID UDC GT SCH (08:47)
[2019-10-15] MEDS: ACIDOPHILUS/BULGARICUS CHEW TAB GT SCH ×2 (08:47→20:27)
[2019-10-15] MEDS: levETIRAcetam 500 MG/5 ML LIQUID UDC GT SCH ×2 (08:49→20:27)
[2019-10-15] MEDS: MIRALAX 17 GM POWD.PACK GT SCH (08:49)
[2019-10-15] MEDS: COD LIVER OIL/ZINC OXIDE OINT 113 GM TUBE TP SCH ×2 (08:50→20:28)
[2019-10-15] MEDS: POTASSIUM CHLORIDE 40 MEQ/30 ML LIQUID UDC GT SCH (08:50)
[2019-10-15] MEDS: HYDROGEN PEROXIDE 3% 118 ML BOTTLE TP SCH ×2 (09:00→20:41)
[2019-10-15 11:45] VITALS: BP 90/48
[2019-10-15] MEDS: RIVAROXABAN 15 MG TABLET GT SCH (20:26)
[2019-10-15] MEDS: MELATONIN 3 MG TABLET GT SCH (20:27)
[2019-10-15] MEDS: CRANBERRY 500 MG GT SCH (20:28)
[2019-10-15] MEDS: MAGNESIUM COMPLEX GT SCH (20:28)
[2019-10-15] MEDS: ASCORBIC ACID 500 MG TABLET GT SCH (20:28)
[2019-10-15] MEDS: PROTEIN SUPPLEMENT (PROSTAT) 30 ML LIQUID GT SCH (20:28)
[2019-10-15] MEDS: NUTRISOURCE FIBER 4 GM PACKET GT SCH (20:28)
[2019-10-15 22:06] VITALS: BP 104/73
[2019-10-16] MEDS: METOCLOPRAMIDE HCL 10 MG/10 ML UDC GT SCH ×4 (00:40→17:28)
[2019-10-16] MEDS: TWOCAL HN 1,000 ML LIQUID GT PRN (02:03)
[2019-10-16] MEDS: BACLOFEN 20 MG TABLET GT SCH ×3 (05:15→22:14)
[2019-10-16] MEDS: OMEPRAZOLE 20 MG CAPSULE.DR GT SCH (05:15)
[2019-10-16] MEDS: MULTIVIT, IRON, MIN NO. 8, FA TABLET GT SCH (05:15)
[2019-10-16 08:30] VITALS: BP 102/60
[2019-10-16] MEDS: POTASSIUM CHLORIDE 40 MEQ/30 ML LIQUID UDC GT SCH (08:49)
[2019-10-16] MEDS: ACIDOPHILUS/BULGARICUS CHEW TAB GT SCH ×2 (08:49→20:39)
[2019-10-16] MEDS: DOCUSATE SODIUM 100 MG/10 ML LIQUID UDC GT SCH (08:49)
[2019-10-16] MEDS: COD LIVER OIL/ZINC OXIDE OINT 113 GM TUBE TP SCH ×2 (08:49→20:53)
[2019-10-16] MEDS: MIRALAX 17 GM POWD.PACK GT SCH (08:49)
[2019-10-16] MEDS: levETIRAcetam 500 MG/5 ML LIQUID UDC GT SCH ×2 (08:49→20:39)
[2019-10-16] MEDS: HYDROGEN PEROXIDE 3% 118 ML BOTTLE TP SCH ×2 (09:00→21:25)
--- NOTE | 2019-10-16 12:00 | NUR ---
SEEN BY [place] Trotter AND WITH NNO.
[2019-10-16 20:21] VITALS: BP 102/53
[2019-10-16] MEDS: MELATONIN 3 MG TABLET GT SCH (20:40)
[2019-10-16] MEDS: RIVAROXABAN 15 MG TABLET GT SCH (20:41)
[2019-10-16] MEDS: MAGNESIUM COMPLEX GT SCH (20:51)
[2019-10-16] MEDS: CRANBERRY 500 MG GT SCH (20:51)
[2019-10-16] MEDS: NUTRISOURCE FIBER 4 GM PACKET GT SCH (20:52)
[2019-10-16] MEDS: PROTEIN SUPPLEMENT (PROSTAT) 30 ML LIQUID GT SCH (20:53)
[2019-10-16] MEDS: ASCORBIC ACID 500 MG TABLET GT SCH (20:53)
[2019-10-17] MEDS: METOCLOPRAMIDE HCL 10 MG/10 ML UDC GT SCH ×4 (00:16→17:24)
[2019-10-17] MEDS: BACLOFEN 20 MG TABLET GT SCH ×3 (05:23→22:09)
[2019-10-17] MEDS: OMEPRAZOLE 20 MG CAPSULE.DR GT SCH (05:24)
[2019-10-17] MEDS: MULTIVIT, IRON, MIN NO. 8, FA TABLET GT SCH (05:24)
[2019-10-17] MEDS: DOCUSATE SODIUM 100 MG/10 ML LIQUID UDC GT SCH ×2 (08:08→08:13)
[2019-10-17] MEDS: ACIDOPHILUS/BULGARICUS CHEW TAB GT SCH ×2 (08:09→20:17)
[2019-10-17] MEDS: levETIRAcetam 500 MG/5 ML LIQUID UDC GT SCH ×2 (08:10→20:17)
[2019-10-17] MEDS: MIRALAX 17 GM POWD.PACK GT SCH (08:10)
[2019-10-17] MEDS: POTASSIUM CHLORIDE 40 MEQ/30 ML LIQUID UDC GT SCH (08:11)
[2019-10-17] MEDS: COD LIVER OIL/ZINC OXIDE OINT 113 GM TUBE TP SCH ×2 (08:11→20:20)
[2019-10-17] MEDS: HYDROGEN PEROXIDE 3% 118 ML BOTTLE TP SCH ×2 (09:00→21:00)
[2019-10-17 11:12] VITALS: BP 90/49
--- NOTE | 2019-10-17 18:39 | NUR ---
PT. WAS OUT OF ROOM IN ACTIVITIES IN AM AND IN AFTERNOON OUT OF ROOM WITH HER MOTHER.
[2019-10-17 20:00] VITALS: BP 119/70
[2019-10-17] MEDS: CRANBERRY 500 MG GT SCH (20:17)
[2019-10-17] MEDS: MAGNESIUM COMPLEX GT SCH (20:18)
[2019-10-17] MEDS: NUTRISOURCE FIBER 4 GM PACKET GT SCH (20:18)
[2019-10-17] MEDS: PROTEIN SUPPLEMENT (PROSTAT) 30 ML LIQUID GT SCH (20:18)
[2019-10-17] MEDS: ASCORBIC ACID 500 MG TABLET GT SCH (20:19)
[2019-10-17] MEDS: RIVAROXABAN 15 MG TABLET GT SCH (20:22)
[2019-10-17] MEDS: MELATONIN 3 MG TABLET GT SCH (20:23)
[2019-10-18] MEDS: MULTIVIT, IRON, MIN NO. 8, FA TABLET GT SCH (05:04)
[2019-10-18] MEDS: OMEPRAZOLE 20 MG CAPSULE.DR GT SCH (05:04)
[2019-10-18] MEDS: BACLOFEN 20 MG TABLET GT SCH ×3 (05:04→21:48)
[2019-10-18] MEDS: METOCLOPRAMIDE HCL 10 MG/10 ML UDC GT SCH ×5 (05:04→23:08)
[2019-10-18] MEDS: TWOCAL HN 1,000 ML LIQUID GT PRN (07:23)
[2019-10-18 08:00] VITALS: BP 123/69
[2019-10-18] MEDS: ACIDOPHILUS/BULGARICUS CHEW TAB GT SCH ×2 (08:18→21:46)
[2019-10-18] MEDS: POTASSIUM CHLORIDE 40 MEQ/30 ML LIQUID UDC GT SCH (08:18)
[2019-10-18] MEDS: levETIRAcetam 500 MG/5 ML LIQUID UDC GT SCH ×2 (08:18→21:46)
[2019-10-18] MEDS: MIRALAX 17 GM POWD.PACK GT SCH (08:18)
[2019-10-18] MEDS: DOCUSATE SODIUM 100 MG/10 ML LIQUID UDC GT SCH (08:18)
[2019-10-18] MEDS: COD LIVER OIL/ZINC OXIDE OINT 113 GM TUBE TP SCH ×2 (08:18→21:48)
[2019-10-18] MEDS: HYDROGEN PEROXIDE 3% 118 ML BOTTLE TP SCH ×2 (09:36→21:00)
[2019-10-18 20:00] VITALS: BP 121/76
[2019-10-18] MEDS: RIVAROXABAN 15 MG TABLET GT SCH (21:00)
[2019-10-18] MEDS: MELATONIN 3 MG TABLET GT SCH (21:46)
[2019-10-18] MEDS: PROTEIN SUPPLEMENT (PROSTAT) 30 ML LIQUID GT SCH (21:47)
[2019-10-18] MEDS: ASCORBIC ACID 500 MG TABLET GT SCH (21:47)
[2019-10-18] MEDS: MAGNESIUM COMPLEX GT SCH (21:47)
[2019-10-18] MEDS: NUTRISOURCE FIBER 4 GM PACKET GT SCH (21:47)
[2019-10-18] MEDS: CRANBERRY 500 MG GT SCH (21:47)
[2019-10-19] MEDS: MULTIVIT, IRON, MIN NO. 8, FA TABLET GT SCH (05:39)
[2019-10-19] MEDS: BACLOFEN 20 MG TABLET GT SCH ×3 (05:39→22:44)
[2019-10-19] MEDS: OMEPRAZOLE 20 MG CAPSULE.DR GT SCH (05:39)
[2019-10-19] MEDS: METOCLOPRAMIDE HCL 10 MG/10 ML UDC GT SCH ×3 (05:39→17:24)
[2019-10-19] MEDS: HYDROGEN PEROXIDE 3% 118 ML BOTTLE TP SCH ×2 (09:00→21:08)
[2019-10-19] MEDS: ACIDOPHILUS/BULGARICUS CHEW TAB GT SCH ×2 (09:08→21:29)
[2019-10-19] MEDS: POTASSIUM CHLORIDE 40 MEQ/30 ML LIQUID UDC GT SCH (09:08)
[2019-10-19] MEDS: levETIRAcetam 500 MG/5 ML LIQUID UDC GT SCH ×2 (09:08→21:29)
[2019-10-19] MEDS: COD LIVER OIL/ZINC OXIDE OINT 113 GM TUBE TP SCH ×2 (09:08→21:32)
[2019-10-19] MEDS: DOCUSATE SODIUM 100 MG/10 ML LIQUID UDC GT SCH (09:08)
[2019-10-19] MEDS: MIRALAX 17 GM POWD.PACK GT SCH (09:08)
[2019-10-19 20:00] VITALS: BP 119/73
[2019-10-19] MEDS: GUAIFENESIN/DEXTROMETHORPHAN 5 ML UDC GT PRN (20:28)
[2019-10-19] MEDS: MELATONIN 3 MG TABLET GT SCH (21:30)
[2019-10-19] MEDS: NUTRISOURCE FIBER 4 GM PACKET GT SCH (21:30)
[2019-10-19] MEDS: MAGNESIUM COMPLEX GT SCH (21:30)
[2019-10-19] MEDS: PROTEIN SUPPLEMENT (PROSTAT) 30 ML LIQUID GT SCH (21:30)
[2019-10-19] MEDS: CRANBERRY 500 MG GT SCH (21:30)
[2019-10-19] MEDS: ASCORBIC ACID 500 MG TABLET GT SCH (21:32)
[2019-10-19] MEDS: RIVAROXABAN 15 MG TABLET GT SCH (21:46)
[2019-10-20] MEDS: METOCLOPRAMIDE HCL 10 MG/10 ML UDC GT SCH ×4 (00:05→18:06)
[2019-10-20] MEDS: TWOCAL HN 1,000 ML LIQUID GT PRN ×2 (04:29→14:21)
[2019-10-20] MEDS: GUAIFENESIN/DEXTROMETHORPHAN 5 ML UDC GT PRN (04:29)
[2019-10-20] MEDS: OMEPRAZOLE 20 MG CAPSULE.DR GT SCH (05:22)
[2019-10-20] MEDS: MULTIVIT, IRON, MIN NO. 8, FA TABLET GT SCH (05:22)
[2019-10-20] MEDS: BACLOFEN 20 MG TABLET GT SCH ×3 (05:22→21:14)
[2019-10-20 08:04] VITALS: BP 95/57
[2019-10-20] MEDS: COD LIVER OIL/ZINC OXIDE OINT 113 GM TUBE TP SCH ×2 (08:31→21:14)
[2019-10-20] MEDS: levETIRAcetam 500 MG/5 ML LIQUID UDC GT SCH ×2 (08:31→21:13)
[2019-10-20] MEDS: MIRALAX 17 GM POWD.PACK GT SCH (08:31)
[2019-10-20] MEDS: ACIDOPHILUS/BULGARICUS CHEW TAB GT SCH ×2 (08:31→21:13)
[2019-10-20] MEDS: POTASSIUM CHLORIDE 40 MEQ/30 ML LIQUID UDC GT SCH (08:31)
[2019-10-20] MEDS: DOCUSATE SODIUM 100 MG/10 ML LIQUID UDC GT SCH (08:31)
[2019-10-20] MEDS: HYDROGEN PEROXIDE 3% 118 ML BOTTLE TP SCH ×2 (09:20→21:00)
--- NOTE | 2019-10-20 19:09 | NUR ---
Medical Anthropology Director Raghavendra Alexander and accountant manager Yadeil Dyer met with patient's mother Jeanne and informed her that per CDC and [facility] decision to minimize the risk of subacute residents becoming sick with the COVID-19 virus, visitation to [facility] will be suspended, effective immediately, and until further notice. Jeanne expressed understanding.
[2019-10-20 20:00] VITALS: BP 128/80
[2019-10-20] MEDS: PROTEIN SUPPLEMENT (PROSTAT) 30 ML LIQUID GT SCH (21:13)
[2019-10-20] MEDS: MELATONIN 3 MG TABLET GT SCH (21:13)
[2019-10-20] MEDS: NUTRISOURCE FIBER 4 GM PACKET GT SCH (21:13)
[2019-10-20] MEDS: MAGNESIUM COMPLEX GT SCH (21:13)
[2019-10-20] MEDS: CRANBERRY 500 MG GT SCH (21:13)
[2019-10-20] MEDS: ASCORBIC ACID 500 MG TABLET GT SCH (21:14)
[2019-10-20] MEDS: RIVAROXABAN 15 MG TABLET GT SCH (21:21)
[2019-10-21] MEDS: METOCLOPRAMIDE HCL 10 MG/10 ML UDC GT SCH ×4 (00:33→17:25)
[2019-10-21] MEDS: BACLOFEN 20 MG TABLET GT SCH ×3 (05:42→21:27)
[2019-10-21] MEDS: OMEPRAZOLE 20 MG CAPSULE.DR GT SCH (05:42)
[2019-10-21] MEDS: MULTIVIT, IRON, MIN NO. 8, FA TABLET GT SCH (05:43)
[2019-10-21 07:46] VITALS: BP 98/62
--- NOTE | 2019-10-21 08:00 | NUR ---
Pt received sleepy easy Arousable ,with no respiratory distress,no increase secretions,no changes on condition,afebrile temp 97.6 ,o2 sat 96%.
[2019-10-21] MEDS: COD LIVER OIL/ZINC OXIDE OINT 113 GM TUBE TP SCH ×2 (08:58→20:58)
[2019-10-21] MEDS: levETIRAcetam 500 MG/5 ML LIQUID UDC GT SCH ×2 (08:58→20:57)
[2019-10-21] MEDS: POTASSIUM CHLORIDE 40 MEQ/30 ML LIQUID UDC GT SCH (08:58)
[2019-10-21] MEDS: ACIDOPHILUS/BULGARICUS CHEW TAB GT SCH ×2 (08:58→20:57)
[2019-10-21] MEDS: DOCUSATE SODIUM 100 MG/10 ML LIQUID UDC GT SCH (08:58)
[2019-10-21] MEDS: MIRALAX 17 GM POWD.PACK GT SCH (08:58)
[2019-10-21] MEDS: HYDROGEN PEROXIDE 3% 118 ML BOTTLE TP SCH ×2 (09:37→21:00)
[2019-10-21] MEDS: BISACODYL 10 MG SUPP.RECT RC PRN (18:22)
[2019-10-21 20:35] VITALS: BP 127/70
[2019-10-21] MEDS: MELATONIN 3 MG TABLET GT SCH (20:57)
[2019-10-21] MEDS: PROTEIN SUPPLEMENT (PROSTAT) 30 ML LIQUID GT SCH (20:57)
[2019-10-21] MEDS: MAGNESIUM COMPLEX GT SCH (20:57)
[2019-10-21] MEDS: ASCORBIC ACID 500 MG TABLET GT SCH (20:57)
[2019-10-21] MEDS: CRANBERRY 500 MG GT SCH (20:57)
[2019-10-21] MEDS: NUTRISOURCE FIBER 4 GM PACKET GT SCH (20:57)
[2019-10-21] MEDS: RIVAROXABAN 15 MG TABLET GT SCH (21:27)
--- NOTE | 2019-10-22 02:39 | NUR ---
Patient is sleeping at this time, temperature is 98.3, trach is intact and patent, suctioned with moderate pale yellow secretions, 02 sat is 99% on 28% fi02, turned and repositioned, kept clean and comfortable.
[2019-10-22] MEDS: METOCLOPRAMIDE HCL 10 MG/10 ML UDC GT SCH ×5 (05:29→23:58)
[2019-10-22] MEDS: BACLOFEN 20 MG TABLET GT SCH ×3 (05:29→22:28)
[2019-10-22] MEDS: OMEPRAZOLE 20 MG CAPSULE.DR GT SCH (05:29)
[2019-10-22] MEDS: MULTIVIT, IRON, MIN NO. 8, FA TABLET GT SCH (05:29)
[2019-10-22] MEDS: TWOCAL HN 1,000 ML LIQUID GT PRN (05:29)
[2019-10-22 08:04] VITALS: BP 97/62
[2019-10-22] MEDS: POTASSIUM CHLORIDE 40 MEQ/30 ML LIQUID UDC GT SCH (09:07)
[2019-10-22] MEDS: levETIRAcetam 500 MG/5 ML LIQUID UDC GT SCH ×2 (09:07→20:11)
[2019-10-22] MEDS: DOCUSATE SODIUM 100 MG/10 ML LIQUID UDC GT SCH (09:07)
[2019-10-22] MEDS: COD LIVER OIL/ZINC OXIDE OINT 113 GM TUBE TP SCH ×2 (09:07→20:16)
[2019-10-22] MEDS: MIRALAX 17 GM POWD.PACK GT SCH (09:07)
[2019-10-22] MEDS: ACIDOPHILUS/BULGARICUS CHEW TAB GT SCH ×2 (09:07→20:11)
[2019-10-22] MEDS: HYDROGEN PEROXIDE 3% 118 ML BOTTLE TP SCH ×2 (09:10→21:43)
--- NOTE | 2019-10-22 18:15 | NUR ---
No changes of condition,afebrile temp 97.6,has trach in place connected to p mist 28 %,suctioned as needed.
[2019-10-22] MEDS: MELATONIN 3 MG TABLET GT SCH (20:12)
[2019-10-22] MEDS: MAGNESIUM COMPLEX GT SCH (20:12)
[2019-10-22] MEDS: CRANBERRY 500 MG GT SCH (20:12)
[2019-10-22] MEDS: NUTRISOURCE FIBER 4 GM PACKET GT SCH (20:13)
[2019-10-22] MEDS: PROTEIN SUPPLEMENT (PROSTAT) 30 ML LIQUID GT SCH (20:13)
[2019-10-22] MEDS: RIVAROXABAN 15 MG TABLET GT SCH (20:16)
[2019-10-22] MEDS: ASCORBIC ACID 500 MG TABLET GT SCH (20:16)
[2019-10-22 20:25] VITALS: BP 100/57
--- NOTE | 2019-10-22 21:13 | NUR ---
Afebrile, temperature is 97.8 Fahrenheit, trach is intact and patent, 02 sat is 99% on 28% fi02, no respiratory distress noted, kept clean and comfortable.
[2019-10-23] MEDS: OMEPRAZOLE 20 MG CAPSULE.DR GT SCH (05:07)
[2019-10-23] MEDS: METOCLOPRAMIDE HCL 10 MG/10 ML UDC GT SCH ×3 (05:07→17:37)
[2019-10-23] MEDS: MULTIVIT, IRON, MIN NO. 8, FA TABLET GT SCH (05:07)
[2019-10-23] MEDS: BACLOFEN 20 MG TABLET GT SCH ×3 (05:07→21:45)
[2019-10-23 08:00] VITALS: BP 108/65
[2019-10-23] MEDS: ACIDOPHILUS/BULGARICUS CHEW TAB GT SCH ×2 (08:20→20:31)
[2019-10-23] MEDS: DOCUSATE SODIUM 100 MG/10 ML LIQUID UDC GT SCH (08:20)
[2019-10-23] MEDS: levETIRAcetam 500 MG/5 ML LIQUID UDC GT SCH ×2 (08:21→20:31)
[2019-10-23] MEDS: COD LIVER OIL/ZINC OXIDE OINT 113 GM TUBE TP SCH ×2 (08:22→20:32)
[2019-10-23] MEDS: POTASSIUM CHLORIDE 40 MEQ/30 ML LIQUID UDC GT SCH (08:22)
[2019-10-23] MEDS: MIRALAX 17 GM POWD.PACK GT SCH (08:22)
[2019-10-23] MEDS: HYDROGEN PEROXIDE 3% 118 ML BOTTLE TP SCH ×2 (09:00→21:24)
--- NOTE | 2019-10-23 14:41 | NUR ---
Patient stable, no acute respiratory distress noted, repositioned q2hrs for comfort.
[2019-10-23 20:13] VITALS: BP 120/66
[2019-10-23] MEDS: CRANBERRY 500 MG GT SCH (20:31)
[2019-10-23] MEDS: MAGNESIUM COMPLEX GT SCH (20:31)
[2019-10-23] MEDS: NUTRISOURCE FIBER 4 GM PACKET GT SCH (20:31)
[2019-10-23] MEDS: MELATONIN 3 MG TABLET GT SCH (20:31)
[2019-10-23] MEDS: ASCORBIC ACID 500 MG TABLET GT SCH (20:32)
[2019-10-23] MEDS: PROTEIN SUPPLEMENT (PROSTAT) 30 ML LIQUID GT SCH (20:32)
[2019-10-23] MEDS: RIVAROXABAN 15 MG TABLET GT SCH (21:45)
--- NOTE | 2019-10-23 21:53 | NUR ---
Temperature is 97.6, no SOB, no signs of any respiratory distress noted, 02 sat is 98% on 28% fi02. Patient is stable, turned and repositioned, kept clean and comfortable.
[2019-10-24] MEDS: METOCLOPRAMIDE HCL 10 MG/10 ML UDC GT SCH ×4 (00:50→17:32)
[2019-10-24] MEDS: OMEPRAZOLE 20 MG CAPSULE.DR GT SCH (05:27)
[2019-10-24] MEDS: BACLOFEN 20 MG TABLET GT SCH ×3 (05:27→22:00)
[2019-10-24] MEDS: MULTIVIT, IRON, MIN NO. 8, FA TABLET GT SCH (05:28)
--- NOTE | 2019-10-24 07:30 | NUR ---
PT was received in bed and asleep. Vitals WNL. No respiratory distress noted. Safety precautions were given. Call light within reach. Will continue to monitor.
[2019-10-24 08:00] VITALS: BP 99/64
[2019-10-24] MEDS: levETIRAcetam 500 MG/5 ML LIQUID UDC GT SCH ×2 (08:34→20:57)
[2019-10-24] MEDS: POTASSIUM CHLORIDE 40 MEQ/30 ML LIQUID UDC GT SCH (08:34)
[2019-10-24] MEDS: DOCUSATE SODIUM 100 MG/10 ML LIQUID UDC GT SCH (08:34)
[2019-10-24] MEDS: MIRALAX 17 GM POWD.PACK GT SCH (08:34)
[2019-10-24] MEDS: ACIDOPHILUS/BULGARICUS CHEW TAB GT SCH ×2 (08:34→20:57)
[2019-10-24] MEDS: COD LIVER OIL/ZINC OXIDE OINT 113 GM TUBE TP SCH ×2 (08:35→20:58)
[2019-10-24] MEDS: HYDROGEN PEROXIDE 3% 118 ML BOTTLE TP SCH ×2 (09:59→21:37)
[2019-10-24] MEDS: ACETAMINOPHEN 650 MG/20 ML UDC- SA PATIENTS-PAIN ONLY GT PRN (17:32)
--- NOTE | 2019-10-24 19:02 | NUR ---
No acute respiratory distress ,no increase secretions,afebrile temperature 97.9.
[2019-10-24] MEDS: CRANBERRY 500 MG GT SCH (20:57)
[2019-10-24] MEDS: PROTEIN SUPPLEMENT (PROSTAT) 30 ML LIQUID GT SCH (20:57)
[2019-10-24] MEDS: NUTRISOURCE FIBER 4 GM PACKET GT SCH (20:57)
[2019-10-24] MEDS: ASCORBIC ACID 500 MG TABLET GT SCH (20:57)
[2019-10-24] MEDS: MAGNESIUM COMPLEX GT SCH (20:57)
[2019-10-24] MEDS: MELATONIN 3 MG TABLET GT SCH (20:57)
[2019-10-24] MEDS: RIVAROXABAN 15 MG TABLET GT SCH (20:59)
[2019-10-24 21:41] VITALS: BP 122/69
[2019-10-25] MEDS: METOCLOPRAMIDE HCL 10 MG/10 ML UDC GT SCH ×4 (00:15→17:00)
[2019-10-25] MEDS: OMEPRAZOLE 20 MG CAPSULE.DR GT SCH (05:26)
[2019-10-25] MEDS: BACLOFEN 20 MG TABLET GT SCH ×3 (05:26→21:07)
[2019-10-25] MEDS: MULTIVIT, IRON, MIN NO. 8, FA TABLET GT SCH (05:27)
[2019-10-25] MEDS: levETIRAcetam 500 MG/5 ML LIQUID UDC GT SCH ×2 (08:51→21:00)
[2019-10-25] MEDS: ACIDOPHILUS/BULGARICUS CHEW TAB GT SCH ×2 (08:51→21:00)
[2019-10-25] MEDS: DOCUSATE SODIUM 100 MG/10 ML LIQUID UDC GT SCH (08:51)
[2019-10-25] MEDS: MIRALAX 17 GM POWD.PACK GT SCH (08:52)
[2019-10-25] MEDS: COD LIVER OIL/ZINC OXIDE OINT 113 GM TUBE TP SCH ×2 (08:53→21:07)
[2019-10-25] MEDS: POTASSIUM CHLORIDE 40 MEQ/30 ML LIQUID UDC GT SCH (08:53)
[2019-10-25] MEDS: HYDROGEN PEROXIDE 3% 118 ML BOTTLE TP SCH ×2 (09:10→21:00)
[2019-10-25 11:32] VITALS: BP 100/50
--- NOTE | 2019-10-25 15:13 | NUR ---
0730 PT was received in bed and asleep. Vitals WNL. No respiratory distress noted. Safety precautions were given. Call light within reach. Will continue to monitor.
--- NOTE | 2019-10-25 16:15 | NUR ---
PT's mother requested to FaceTime. Provided time with PT and Mother. Mother was content.
--- NOTE | 2019-10-25 19:06 | NUR ---
In stable condition,no respiratory distress,trach connected to p mist,afebrile temp 98.0.
[2019-10-25 20:53] VITALS: BP 112/71
[2019-10-25] MEDS: CRANBERRY 500 MG GT SCH (21:01)
[2019-10-25] MEDS: MELATONIN 3 MG TABLET GT SCH (21:01)
[2019-10-25] MEDS: MAGNESIUM COMPLEX GT SCH (21:01)
[2019-10-25] MEDS: NUTRISOURCE FIBER 4 GM PACKET GT SCH (21:02)
[2019-10-25] MEDS: ASCORBIC ACID 500 MG TABLET GT SCH (21:02)
[2019-10-25] MEDS: PROTEIN SUPPLEMENT (PROSTAT) 30 ML LIQUID GT SCH (21:02)
[2019-10-25] MEDS: RIVAROXABAN 15 MG TABLET GT SCH (21:03)
[2019-10-26] MEDS: METOCLOPRAMIDE HCL 10 MG/10 ML UDC GT SCH ×4 (00:10→18:18)
[2019-10-26] MEDS: OMEPRAZOLE 20 MG CAPSULE.DR GT SCH (05:43)
[2019-10-26] MEDS: BACLOFEN 20 MG TABLET GT SCH ×3 (05:43→21:10)
[2019-10-26] MEDS: MULTIVIT, IRON, MIN NO. 8, FA TABLET GT SCH (05:43)
[2019-10-26 08:08] VITALS: BP 131/79
[2019-10-26] MEDS: levETIRAcetam 500 MG/5 ML LIQUID UDC GT SCH ×2 (08:49→21:07)
[2019-10-26] MEDS: ACIDOPHILUS/BULGARICUS CHEW TAB GT SCH ×2 (08:49→21:07)
[2019-10-26] MEDS: MIRALAX 17 GM POWD.PACK GT SCH (08:49)
[2019-10-26] MEDS: DOCUSATE SODIUM 100 MG/10 ML LIQUID UDC GT SCH (08:49)
[2019-10-26] MEDS: COD LIVER OIL/ZINC OXIDE OINT 113 GM TUBE TP SCH ×2 (08:49→21:10)
[2019-10-26] MEDS: POTASSIUM CHLORIDE 40 MEQ/30 ML LIQUID UDC GT SCH (08:49)
[2019-10-26] MEDS: HYDROGEN PEROXIDE 3% 118 ML BOTTLE TP SCH ×2 (09:37→20:25)
[2019-10-26 20:53] VITALS: BP 124/76
[2019-10-26] MEDS: MELATONIN 3 MG TABLET GT SCH (21:07)
[2019-10-26] MEDS: PROTEIN SUPPLEMENT (PROSTAT) 30 ML LIQUID GT SCH (21:08)
[2019-10-26] MEDS: MAGNESIUM COMPLEX GT SCH (21:08)
[2019-10-26] MEDS: NUTRISOURCE FIBER 4 GM PACKET GT SCH (21:08)
[2019-10-26] MEDS: CRANBERRY 500 MG GT SCH (21:08)
[2019-10-26] MEDS: ASCORBIC ACID 500 MG TABLET GT SCH (21:08)
[2019-10-26] MEDS: RIVAROXABAN 15 MG TABLET GT SCH (21:10)
[2019-10-26] MEDS: TWOCAL HN 1,000 ML LIQUID GT PRN (22:32)
[2019-10-27] MEDS: METOCLOPRAMIDE HCL 10 MG/10 ML UDC GT SCH ×5 (00:42→23:15)
[2019-10-27] MEDS: BACLOFEN 20 MG TABLET GT SCH ×3 (05:42→21:08)
[2019-10-27] MEDS: MULTIVIT, IRON, MIN NO. 8, FA TABLET GT SCH (05:43)
[2019-10-27] MEDS: OMEPRAZOLE 20 MG CAPSULE.DR GT SCH (05:43)
[2019-10-27] MEDS: MIRALAX 17 GM POWD.PACK GT SCH (08:02)
[2019-10-27] MEDS: ACIDOPHILUS/BULGARICUS CHEW TAB GT SCH ×2 (08:02→21:08)
[2019-10-27] MEDS: DOCUSATE SODIUM 100 MG/10 ML LIQUID UDC GT SCH (08:02)
[2019-10-27] MEDS: COD LIVER OIL/ZINC OXIDE OINT 113 GM TUBE TP SCH ×2 (08:02→21:08)
[2019-10-27] MEDS: levETIRAcetam 500 MG/5 ML LIQUID UDC GT SCH ×2 (08:02→21:08)
[2019-10-27] MEDS: POTASSIUM CHLORIDE 40 MEQ/30 ML LIQUID UDC GT SCH (08:02)
[2019-10-27] MEDS: HYDROGEN PEROXIDE 3% 118 ML BOTTLE TP SCH ×2 (09:00→21:26)
[2019-10-27 20:51] VITALS: BP 124/73
[2019-10-27] MEDS: ASCORBIC ACID 500 MG TABLET GT SCH (21:08)
[2019-10-27] MEDS: NUTRISOURCE FIBER 4 GM PACKET GT SCH (21:08)
[2019-10-27] MEDS: CRANBERRY 500 MG GT SCH (21:08)
[2019-10-27] MEDS: PROTEIN SUPPLEMENT (PROSTAT) 30 ML LIQUID GT SCH (21:08)
[2019-10-27] MEDS: MELATONIN 3 MG TABLET GT SCH (21:08)
[2019-10-27] MEDS: MAGNESIUM COMPLEX GT SCH (21:08)
[2019-10-27] MEDS: RIVAROXABAN 15 MG TABLET GT SCH (21:08)
[2019-10-28] MEDS: MULTIVIT, IRON, MIN NO. 8, FA TABLET GT SCH (05:40)
[2019-10-28] MEDS: OMEPRAZOLE 20 MG CAPSULE.DR GT SCH (05:40)
[2019-10-28] MEDS: METOCLOPRAMIDE HCL 10 MG/10 ML UDC GT SCH ×3 (05:40→17:30)
[2019-10-28] MEDS: BACLOFEN 20 MG TABLET GT SCH ×3 (05:40→22:06)
[2019-10-28 08:00] VITALS: BP 97/69
[2019-10-28] MEDS: DOCUSATE SODIUM 100 MG/10 ML LIQUID UDC GT SCH (08:36)
[2019-10-28] MEDS: ACIDOPHILUS/BULGARICUS CHEW TAB GT SCH ×2 (08:37→20:42)
[2019-10-28] MEDS: levETIRAcetam 500 MG/5 ML LIQUID UDC GT SCH ×2 (08:38→20:42)
[2019-10-28] MEDS: POTASSIUM CHLORIDE 40 MEQ/30 ML LIQUID UDC GT SCH (08:39)
[2019-10-28] MEDS: COD LIVER OIL/ZINC OXIDE OINT 113 GM TUBE TP SCH ×2 (08:40→20:43)
[2019-10-28] MEDS: MIRALAX 17 GM POWD.PACK GT SCH (08:40)
[2019-10-28] MEDS: HYDROGEN PEROXIDE 3% 118 ML BOTTLE TP SCH ×2 (09:40→20:44)
[2019-10-28] MEDS: MELATONIN 3 MG TABLET GT SCH (20:42)
[2019-10-28] MEDS: NUTRISOURCE FIBER 4 GM PACKET GT SCH (20:42)
[2019-10-28] MEDS: CRANBERRY 500 MG GT SCH (20:42)
[2019-10-28] MEDS: MAGNESIUM COMPLEX GT SCH (20:42)
[2019-10-28] MEDS: ASCORBIC ACID 500 MG TABLET GT SCH (20:42)
[2019-10-28 20:43] VITALS: BP 120/74
[2019-10-28] MEDS: RIVAROXABAN 15 MG TABLET GT SCH (20:43)
[2019-10-28] MEDS: PROTEIN SUPPLEMENT (PROSTAT) 30 ML LIQUID GT SCH (20:44)
[2019-10-29] MEDS: METOCLOPRAMIDE HCL 10 MG/10 ML UDC GT SCH ×4 (00:27→17:55)
[2019-10-29] MEDS: BACLOFEN 20 MG TABLET GT SCH ×3 (06:01→22:13)
[2019-10-29] MEDS: TWOCAL HN 1,000 ML LIQUID GT PRN (06:01)
[2019-10-29] MEDS: OMEPRAZOLE 20 MG CAPSULE.DR GT SCH (06:01)
[2019-10-29] MEDS: MULTIVIT, IRON, MIN NO. 8, FA TABLET GT SCH (06:01)
[2019-10-29] MEDS: levETIRAcetam 500 MG/5 ML LIQUID UDC GT SCH ×2 (08:44→20:17)
[2019-10-29] MEDS: DOCUSATE SODIUM 100 MG/10 ML LIQUID UDC GT SCH (08:44)
[2019-10-29] MEDS: ACIDOPHILUS/BULGARICUS CHEW TAB GT SCH ×2 (08:44→20:17)
[2019-10-29] MEDS: MIRALAX 17 GM POWD.PACK GT SCH (08:45)
[2019-10-29] MEDS: POTASSIUM CHLORIDE 40 MEQ/30 ML LIQUID UDC GT SCH (08:45)
[2019-10-29] MEDS: COD LIVER OIL/ZINC OXIDE OINT 113 GM TUBE TP SCH ×2 (08:47→20:19)
[2019-10-29] MEDS: HYDROGEN PEROXIDE 3% 118 ML BOTTLE TP SCH ×2 (09:57→21:01)
[2019-10-29 11:47] VITALS: BP 95/49
[2019-10-29] MEDS: RIVAROXABAN 15 MG TABLET GT SCH (20:17)
[2019-10-29] MEDS: MAGNESIUM COMPLEX GT SCH (20:18)
[2019-10-29] MEDS: CRANBERRY 500 MG GT SCH (20:18)
[2019-10-29] MEDS: MELATONIN 3 MG TABLET GT SCH (20:18)
[2019-10-29] MEDS: PROTEIN SUPPLEMENT (PROSTAT) 30 ML LIQUID GT SCH (20:19)
[2019-10-29] MEDS: ASCORBIC ACID 500 MG TABLET GT SCH (20:19)
[2019-10-29] MEDS: NUTRISOURCE FIBER 4 GM PACKET GT SCH (20:19)
[2019-10-29 21:09] VITALS: BP 107/66
[2019-10-30] MEDS: METOCLOPRAMIDE HCL 10 MG/10 ML UDC GT SCH ×4 (00:54→17:09)
[2019-10-30] MEDS: OMEPRAZOLE 20 MG CAPSULE.DR GT SCH (05:04)
[2019-10-30] MEDS: MULTIVIT, IRON, MIN NO. 8, FA TABLET GT SCH (05:04)
[2019-10-30] MEDS: BACLOFEN 20 MG TABLET GT SCH ×3 (05:04→21:44)
[2019-10-30 08:30] VITALS: BP 109/63
[2019-10-30] MEDS: DOCUSATE SODIUM 100 MG/10 ML LIQUID UDC GT SCH (08:46)
[2019-10-30] MEDS: ACIDOPHILUS/BULGARICUS CHEW TAB GT SCH ×2 (08:46→20:34)
[2019-10-30] MEDS: COD LIVER OIL/ZINC OXIDE OINT 113 GM TUBE TP SCH ×2 (08:46→20:36)
[2019-10-30] MEDS: POTASSIUM CHLORIDE 40 MEQ/30 ML LIQUID UDC GT SCH (08:46)
[2019-10-30] MEDS: levETIRAcetam 500 MG/5 ML LIQUID UDC GT SCH ×2 (08:46→20:34)
[2019-10-30] MEDS: MIRALAX 17 GM POWD.PACK GT SCH (08:46)
[2019-10-30] MEDS: HYDROGEN PEROXIDE 3% 118 ML BOTTLE TP SCH ×2 (09:32→21:00)
[2019-10-30] MEDS: RIVAROXABAN 15 MG TABLET GT SCH (20:33)
[2019-10-30] MEDS: CRANBERRY 500 MG GT SCH (20:35)
[2019-10-30] MEDS: NUTRISOURCE FIBER 4 GM PACKET GT SCH (20:35)
[2019-10-30] MEDS: MELATONIN 3 MG TABLET GT SCH (20:35)
[2019-10-30] MEDS: PROTEIN SUPPLEMENT (PROSTAT) 30 ML LIQUID GT SCH (20:35)
[2019-10-30] MEDS: ASCORBIC ACID 500 MG TABLET GT SCH (20:35)
[2019-10-30] MEDS: MAGNESIUM COMPLEX GT SCH (20:35)
[2019-10-31] MEDS: METOCLOPRAMIDE HCL 10 MG/10 ML UDC GT SCH ×4 (05:38→17:33)
[2019-10-31] MEDS: BACLOFEN 20 MG TABLET GT SCH ×3 (05:38→22:36)
[2019-10-31] MEDS: MULTIVIT, IRON, MIN NO. 8, FA TABLET GT SCH (05:38)
[2019-10-31] MEDS: OMEPRAZOLE 20 MG CAPSULE.DR GT SCH (05:38)
[2019-10-31] MEDS: COD LIVER OIL/ZINC OXIDE OINT 113 GM TUBE TP SCH ×2 (08:23→20:16)
[2019-10-31] MEDS: DOCUSATE SODIUM 100 MG/10 ML LIQUID UDC GT SCH (08:23)
[2019-10-31] MEDS: levETIRAcetam 500 MG/5 ML LIQUID UDC GT SCH ×2 (08:23→20:15)
[2019-10-31] MEDS: ACIDOPHILUS/BULGARICUS CHEW TAB GT SCH ×2 (08:23→20:15)
[2019-10-31] MEDS: POTASSIUM CHLORIDE 40 MEQ/30 ML LIQUID UDC GT SCH (08:23)
[2019-10-31] MEDS: MIRALAX 17 GM POWD.PACK GT SCH (08:23)
[2019-10-31] MEDS: HYDROGEN PEROXIDE 3% 118 ML BOTTLE TP SCH ×2 (09:00→20:17)
[2019-10-31 09:25] VITALS: BP 95/49
[2019-10-31 20:00] VITALS: BP 116/71
[2019-10-31] MEDS: NUTRISOURCE FIBER 4 GM PACKET GT SCH (20:16)
[2019-10-31] MEDS: MELATONIN 3 MG TABLET GT SCH (20:16)
[2019-10-31] MEDS: MAGNESIUM COMPLEX GT SCH (20:16)
[2019-10-31] MEDS: ASCORBIC ACID 500 MG TABLET GT SCH (20:16)
[2019-10-31] MEDS: CRANBERRY 500 MG GT SCH (20:16)
[2019-10-31] MEDS: PROTEIN SUPPLEMENT (PROSTAT) 30 ML LIQUID GT SCH (20:16)
[2019-10-31] MEDS: RIVAROXABAN 15 MG TABLET GT SCH (20:17)
[2019-11-01] MEDS: METOCLOPRAMIDE HCL 10 MG/10 ML UDC GT SCH ×4 (00:40→17:57)
[2019-11-01] MEDS: MULTIVIT, IRON, MIN NO. 8, FA TABLET GT SCH (05:47)
[2019-11-01] MEDS: BACLOFEN 20 MG TABLET GT SCH ×3 (05:47→22:14)
[2019-11-01] MEDS: OMEPRAZOLE 20 MG CAPSULE.DR GT SCH (05:47)
[2019-11-01 08:00] VITALS: BP_DIAS 60
[2019-11-01] MEDS: DOCUSATE SODIUM 100 MG/10 ML LIQUID UDC GT SCH (08:28)
[2019-11-01] MEDS: ACIDOPHILUS/BULGARICUS CHEW TAB GT SCH ×2 (08:28→20:19)
[2019-11-01] MEDS: levETIRAcetam 500 MG/5 ML LIQUID UDC GT SCH ×2 (08:29→20:19)
[2019-11-01] MEDS: MIRALAX 17 GM POWD.PACK GT SCH (08:29)
[2019-11-01] MEDS: POTASSIUM CHLORIDE 40 MEQ/30 ML LIQUID UDC GT SCH (08:30)
[2019-11-01] MEDS: COD LIVER OIL/ZINC OXIDE OINT 113 GM TUBE TP SCH ×2 (08:30→20:30)
[2019-11-01] MEDS: HYDROGEN PEROXIDE 3% 118 ML BOTTLE TP SCH ×2 (10:00→21:17)
[2019-11-01 20:00] VITALS: BP 107/52
[2019-11-01] MEDS: MELATONIN 3 MG TABLET GT SCH (20:19)
[2019-11-01] MEDS: MAGNESIUM COMPLEX GT SCH (20:22)
[2019-11-01] MEDS: NUTRISOURCE FIBER 4 GM PACKET GT SCH (20:22)
[2019-11-01] MEDS: CRANBERRY 500 MG GT SCH (20:22)
[2019-11-01] MEDS: ASCORBIC ACID 500 MG TABLET GT SCH (20:23)
[2019-11-01] MEDS: PROTEIN SUPPLEMENT (PROSTAT) 30 ML LIQUID GT SCH (20:23)
[2019-11-01] MEDS: RIVAROXABAN 15 MG TABLET GT SCH (20:30)
[2019-11-02] MEDS: METOCLOPRAMIDE HCL 10 MG/10 ML UDC GT SCH ×4 (00:49→17:07)
[2019-11-02] MEDS: TWOCAL HN 1,000 ML LIQUID GT PRN (02:30)
[2019-11-02] MEDS: OMEPRAZOLE 20 MG CAPSULE.DR GT SCH (05:28)
[2019-11-02] MEDS: BACLOFEN 20 MG TABLET GT SCH ×3 (05:28→22:09)
[2019-11-02] MEDS: MULTIVIT, IRON, MIN NO. 8, FA TABLET GT SCH (05:29)
[2019-11-02 08:00] VITALS: BP 107/61
[2019-11-02] MEDS: ACIDOPHILUS/BULGARICUS CHEW TAB GT SCH ×2 (08:41→20:42)
[2019-11-02] MEDS: COD LIVER OIL/ZINC OXIDE OINT 113 GM TUBE TP SCH ×2 (08:41→20:43)
[2019-11-02] MEDS: DOCUSATE SODIUM 100 MG/10 ML LIQUID UDC GT SCH (08:41)
[2019-11-02] MEDS: MIRALAX 17 GM POWD.PACK GT SCH (08:41)
[2019-11-02] MEDS: levETIRAcetam 500 MG/5 ML LIQUID UDC GT SCH ×2 (08:41→20:42)
[2019-11-02] MEDS: POTASSIUM CHLORIDE 40 MEQ/30 ML LIQUID UDC GT SCH (08:41)
[2019-11-02] MEDS: HYDROGEN PEROXIDE 3% 118 ML BOTTLE TP SCH ×2 (09:00→21:00)
[2019-11-02 20:00] VITALS: BP 104/61
[2019-11-02] MEDS: CRANBERRY 500 MG GT SCH (20:42)
[2019-11-02] MEDS: MAGNESIUM COMPLEX GT SCH (20:42)
[2019-11-02] MEDS: MELATONIN 3 MG TABLET GT SCH (20:42)
[2019-11-02] MEDS: PROTEIN SUPPLEMENT (PROSTAT) 30 ML LIQUID GT SCH (20:43)
[2019-11-02] MEDS: NUTRISOURCE FIBER 4 GM PACKET GT SCH (20:43)
[2019-11-02] MEDS: ASCORBIC ACID 500 MG TABLET GT SCH (20:43)
[2019-11-02] MEDS: RIVAROXABAN 15 MG TABLET GT SCH (20:52)
[2019-11-03] MEDS: BACLOFEN 20 MG TABLET GT SCH ×3 (05:35→22:29)
[2019-11-03] MEDS: OMEPRAZOLE 20 MG CAPSULE.DR GT SCH (05:35)
[2019-11-03] MEDS: METOCLOPRAMIDE HCL 10 MG/10 ML UDC GT SCH ×4 (05:35→17:24)
[2019-11-03] MEDS: MULTIVIT, IRON, MIN NO. 8, FA TABLET GT SCH (05:36)
[2019-11-03 08:04] VITALS: BP 101/55
[2019-11-03] MEDS: levETIRAcetam 500 MG/5 ML LIQUID UDC GT SCH ×2 (08:41→21:00)
[2019-11-03] MEDS: DOCUSATE SODIUM 100 MG/10 ML LIQUID UDC GT SCH (08:41)
[2019-11-03] MEDS: MIRALAX 17 GM POWD.PACK GT SCH (08:41)
[2019-11-03] MEDS: ACIDOPHILUS/BULGARICUS CHEW TAB GT SCH ×2 (08:41→21:00)
[2019-11-03] MEDS: POTASSIUM CHLORIDE 40 MEQ/30 ML LIQUID UDC GT SCH (08:43)
[2019-11-03] MEDS: COD LIVER OIL/ZINC OXIDE OINT 113 GM TUBE TP SCH ×2 (08:43→21:00)
[2019-11-03] MEDS: HYDROGEN PEROXIDE 3% 118 ML BOTTLE TP SCH ×2 (09:00→21:00)
--- NOTE | 2019-11-03 16:17 | NUR ---
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 Therefore [facility] will continue to restrict all visitations, until further notice.
[2019-11-03] MEDS: CRANBERRY 500 MG GT SCH (21:00)
[2019-11-03] MEDS: ASCORBIC ACID 500 MG TABLET GT SCH (21:00)
[2019-11-03] MEDS: RIVAROXABAN 15 MG TABLET GT SCH (21:00)
[2019-11-03] MEDS: MAGNESIUM COMPLEX GT SCH (21:00)
[2019-11-03] MEDS: MELATONIN 3 MG TABLET GT SCH (21:00)
[2019-11-03] MEDS: PROTEIN SUPPLEMENT (PROSTAT) 30 ML LIQUID GT SCH (21:00)
[2019-11-03] MEDS: NUTRISOURCE FIBER 4 GM PACKET GT SCH (21:00)
[2019-11-03 21:30] VITALS: BP 96/58
[2019-11-04] MEDS: OMEPRAZOLE 20 MG CAPSULE.DR GT SCH (05:09)
[2019-11-04] MEDS: MULTIVIT, IRON, MIN NO. 8, FA TABLET GT SCH (05:09)
[2019-11-04] MEDS: BACLOFEN 20 MG TABLET GT SCH ×3 (05:09→21:16)
[2019-11-04] MEDS: METOCLOPRAMIDE HCL 10 MG/10 ML UDC GT SCH ×4 (05:09→17:21)
[2019-11-04] MEDS: DOCUSATE SODIUM 100 MG/10 ML LIQUID UDC GT SCH (08:00)
[2019-11-04 08:03] VITALS: BP 107/64
[2019-11-04] MEDS: levETIRAcetam 500 MG/5 ML LIQUID UDC GT SCH ×2 (08:06→21:14)
[2019-11-04] MEDS: ACIDOPHILUS/BULGARICUS CHEW TAB GT SCH ×2 (08:06→21:13)
[2019-11-04] MEDS: MIRALAX 17 GM POWD.PACK GT SCH (08:06)
[2019-11-04] MEDS: POTASSIUM CHLORIDE 40 MEQ/30 ML LIQUID UDC GT SCH (08:06)
[2019-11-04] MEDS: COD LIVER OIL/ZINC OXIDE OINT 113 GM TUBE TP SCH ×2 (08:07→21:15)
[2019-11-04] MEDS: HYDROGEN PEROXIDE 3% 118 ML BOTTLE TP SCH ×2 (09:00→19:03)
[2019-11-04] MEDS: CRANBERRY 500 MG GT SCH (21:14)
[2019-11-04] MEDS: MELATONIN 3 MG TABLET GT SCH (21:14)
[2019-11-04] MEDS: PROTEIN SUPPLEMENT (PROSTAT) 30 ML LIQUID GT SCH (21:15)
[2019-11-04] MEDS: MAGNESIUM COMPLEX GT SCH (21:15)
[2019-11-04] MEDS: ASCORBIC ACID 500 MG TABLET GT SCH (21:15)
[2019-11-04] MEDS: NUTRISOURCE FIBER 4 GM PACKET GT SCH (21:15)
[2019-11-04] MEDS: RIVAROXABAN 15 MG TABLET GT SCH (21:20)
[2019-11-04 21:50] VITALS: BP 104/58
[2019-11-05] MEDS: BACLOFEN 20 MG TABLET GT SCH ×3 (05:19→22:31)
[2019-11-05] MEDS: OMEPRAZOLE 20 MG CAPSULE.DR GT SCH (05:19)
[2019-11-05] MEDS: MULTIVIT, IRON, MIN NO. 8, FA TABLET GT SCH (05:20)
[2019-11-05] MEDS: METOCLOPRAMIDE HCL 10 MG/10 ML UDC GT SCH ×5 (05:20→23:34)
[2019-11-05 08:03] VITALS: BP 109/63
[2019-11-05] MEDS: DOCUSATE SODIUM 100 MG/10 ML LIQUID UDC GT SCH (08:50)
[2019-11-05] MEDS: ACIDOPHILUS/BULGARICUS CHEW TAB GT SCH ×2 (08:50→20:55)
[2019-11-05] MEDS: MIRALAX 17 GM POWD.PACK GT SCH (08:50)
[2019-11-05] MEDS: levETIRAcetam 500 MG/5 ML LIQUID UDC GT SCH ×2 (08:50→20:56)
[2019-11-05] MEDS: COD LIVER OIL/ZINC OXIDE OINT 113 GM TUBE TP SCH ×2 (08:51→20:58)
[2019-11-05] MEDS: POTASSIUM CHLORIDE 40 MEQ/30 ML LIQUID UDC GT SCH (08:51)
[2019-11-05] MEDS: HYDROGEN PEROXIDE 3% 118 ML BOTTLE TP SCH ×2 (09:00→21:54)
[2019-11-05] MEDS: NUTRISOURCE FIBER 4 GM PACKET GT SCH (20:56)
[2019-11-05] MEDS: CRANBERRY 500 MG GT SCH (20:56)
[2019-11-05] MEDS: MAGNESIUM COMPLEX GT SCH (20:56)
[2019-11-05] MEDS: PROTEIN SUPPLEMENT (PROSTAT) 30 ML LIQUID GT SCH (20:56)
[2019-11-05] MEDS: MELATONIN 3 MG TABLET GT SCH (20:56)
[2019-11-05] MEDS: ASCORBIC ACID 500 MG TABLET GT SCH (20:57)
[2019-11-05] MEDS: RIVAROXABAN 15 MG TABLET GT SCH (21:00)
[2019-11-05 22:13] VITALS: BP 103/61
[2019-11-06] MEDS: BACLOFEN 20 MG TABLET GT SCH ×3 (06:11→21:13)
[2019-11-06] MEDS: MULTIVIT, IRON, MIN NO. 8, FA TABLET GT SCH (06:11)
[2019-11-06] MEDS: OMEPRAZOLE 20 MG CAPSULE.DR GT SCH (06:11)
[2019-11-06] MEDS: METOCLOPRAMIDE HCL 10 MG/10 ML UDC GT SCH ×3 (06:11→17:33)
[2019-11-06 08:00] VITALS: BP 107/56
[2019-11-06] MEDS: DOCUSATE SODIUM 100 MG/10 ML LIQUID UDC GT SCH (08:26)
[2019-11-06] MEDS: ACIDOPHILUS/BULGARICUS CHEW TAB GT SCH ×2 (08:26→20:41)
[2019-11-06] MEDS: MIRALAX 17 GM POWD.PACK GT SCH (08:27)
[2019-11-06] MEDS: COD LIVER OIL/ZINC OXIDE OINT 113 GM TUBE TP SCH ×2 (08:27→20:44)
[2019-11-06] MEDS: POTASSIUM CHLORIDE 40 MEQ/30 ML LIQUID UDC GT SCH (08:27)
[2019-11-06] MEDS: levETIRAcetam 500 MG/5 ML LIQUID UDC GT SCH ×2 (08:27→21:13)
[2019-11-06] MEDS: HYDROGEN PEROXIDE 3% 118 ML BOTTLE TP SCH ×2 (09:00→21:25)
[2019-11-06] MEDS: MAGNESIUM COMPLEX GT SCH (20:42)
[2019-11-06] MEDS: CRANBERRY 500 MG GT SCH (20:42)
[2019-11-06] MEDS: ASCORBIC ACID 500 MG TABLET GT SCH (20:43)
[2019-11-06] MEDS: NUTRISOURCE FIBER 4 GM PACKET GT SCH (20:43)
[2019-11-06] MEDS: PROTEIN SUPPLEMENT (PROSTAT) 30 ML LIQUID GT SCH (20:43)
[2019-11-06] MEDS: RIVAROXABAN 15 MG TABLET GT SCH (20:44)
[2019-11-06] MEDS: MELATONIN 3 MG TABLET GT SCH (21:13)
[2019-11-06 21:23] VITALS: BP 117/81
[2019-11-07] MEDS: METOCLOPRAMIDE HCL 10 MG/10 ML UDC GT SCH ×4 (00:38→17:33)
[2019-11-07] MEDS: BACLOFEN 20 MG TABLET GT SCH ×3 (05:05→22:05)
[2019-11-07] MEDS: OMEPRAZOLE 20 MG CAPSULE.DR GT SCH (05:05)
[2019-11-07] MEDS: MULTIVIT, IRON, MIN NO. 8, FA TABLET GT SCH (05:06)
[2019-11-07 08:00] VITALS: BP 120/70
[2019-11-07] MEDS: levETIRAcetam 500 MG/5 ML LIQUID UDC GT SCH ×2 (08:15→20:44)
[2019-11-07] MEDS: ACIDOPHILUS/BULGARICUS CHEW TAB GT SCH ×2 (08:15→20:44)
[2019-11-07] MEDS: DOCUSATE SODIUM 100 MG/10 ML LIQUID UDC GT SCH (08:15)
[2019-11-07] MEDS: MIRALAX 17 GM POWD.PACK GT SCH (08:16)
[2019-11-07] MEDS: HYDROGEN PEROXIDE 3% 118 ML BOTTLE TP SCH ×2 (08:17→21:00)
[2019-11-07] MEDS: POTASSIUM CHLORIDE 40 MEQ/30 ML LIQUID UDC GT SCH (08:17)
[2019-11-07] MEDS: COD LIVER OIL/ZINC OXIDE OINT 113 GM TUBE TP SCH ×2 (08:17→20:51)
--- NOTE | 2019-11-07 13:54 | NUR ---
FaceTime was done mother at 1315. Patient was smiling seemed happy to talk to mother.
[2019-11-07] MEDS: MELATONIN 3 MG TABLET GT SCH (20:45)
[2019-11-07] MEDS: CRANBERRY 500 MG GT SCH (20:49)
[2019-11-07] MEDS: MAGNESIUM COMPLEX GT SCH (20:49)
[2019-11-07] MEDS: PROTEIN SUPPLEMENT (PROSTAT) 30 ML LIQUID GT SCH (20:50)
[2019-11-07] MEDS: ASCORBIC ACID 500 MG TABLET GT SCH (20:50)
[2019-11-07] MEDS: NUTRISOURCE FIBER 4 GM PACKET GT SCH (20:50)
[2019-11-07] MEDS: RIVAROXABAN 15 MG TABLET GT SCH (20:51)
[2019-11-07 21:42] VITALS: BP 125/64
[2019-11-08] MEDS: OMEPRAZOLE 20 MG CAPSULE.DR GT SCH (05:46)
[2019-11-08] MEDS: BACLOFEN 20 MG TABLET GT SCH ×3 (05:46→21:01)
[2019-11-08] MEDS: MULTIVIT, IRON, MIN NO. 8, FA TABLET GT SCH (05:46)
[2019-11-08] MEDS: TWOCAL HN 1,000 ML LIQUID GT PRN (05:46)
[2019-11-08] MEDS: METOCLOPRAMIDE HCL 10 MG/10 ML UDC GT SCH ×4 (05:46→17:39)
[2019-11-08 08:10] VITALS: BP 106/63
[2019-11-08] MEDS: ACIDOPHILUS/BULGARICUS CHEW TAB GT SCH ×2 (08:39→20:54)
[2019-11-08] MEDS: levETIRAcetam 500 MG/5 ML LIQUID UDC GT SCH ×2 (08:39→20:54)
[2019-11-08] MEDS: DOCUSATE SODIUM 100 MG/10 ML LIQUID UDC GT SCH (08:39)
[2019-11-08] MEDS: MIRALAX 17 GM POWD.PACK GT SCH (08:40)
[2019-11-08] MEDS: POTASSIUM CHLORIDE 40 MEQ/30 ML LIQUID UDC GT SCH (08:41)
[2019-11-08] MEDS: COD LIVER OIL/ZINC OXIDE OINT 113 GM TUBE TP SCH ×2 (08:41→21:00)
[2019-11-08] MEDS: HYDROGEN PEROXIDE 3% 118 ML BOTTLE TP SCH ×2 (09:44→21:19)
--- NOTE | 2019-11-08 14:00 | NUR ---
Surgical Services Tech care done by Dr Hu.
[2019-11-08] MEDS: MELATONIN 3 MG TABLET GT SCH (20:54)
[2019-11-08] MEDS: CRANBERRY 500 MG GT SCH (20:54)
[2019-11-08] MEDS: MAGNESIUM COMPLEX GT SCH (20:55)
[2019-11-08] MEDS: NUTRISOURCE FIBER 4 GM PACKET GT SCH (20:56)
[2019-11-08] MEDS: ASCORBIC ACID 500 MG TABLET GT SCH (20:58)
[2019-11-08] MEDS: PROTEIN SUPPLEMENT (PROSTAT) 30 ML LIQUID GT SCH (20:58)
[2019-11-08] MEDS: RIVAROXABAN 15 MG TABLET GT SCH (21:00)
[2019-11-08 21:23] VITALS: BP 108/49
[2019-11-09] MEDS: METOCLOPRAMIDE HCL 10 MG/10 ML UDC GT SCH ×4 (00:52→17:46)
[2019-11-09] MEDS: OMEPRAZOLE 20 MG CAPSULE.DR GT SCH (05:57)
[2019-11-09] MEDS: BACLOFEN 20 MG TABLET GT SCH ×3 (05:57→21:08)
[2019-11-09] MEDS: MULTIVIT, IRON, MIN NO. 8, FA TABLET GT SCH (05:57)
[2019-11-09] MEDS: ACIDOPHILUS/BULGARICUS CHEW TAB GT SCH ×2 (08:06→21:01)
[2019-11-09] MEDS: DOCUSATE SODIUM 100 MG/10 ML LIQUID UDC GT SCH (08:06)
[2019-11-09] MEDS: levETIRAcetam 500 MG/5 ML LIQUID UDC GT SCH ×2 (08:06→21:01)
[2019-11-09] MEDS: MIRALAX 17 GM POWD.PACK GT SCH (08:08)
[2019-11-09] MEDS: POTASSIUM CHLORIDE 40 MEQ/30 ML LIQUID UDC GT SCH (08:17)
[2019-11-09] MEDS: COD LIVER OIL/ZINC OXIDE OINT 113 GM TUBE TP SCH ×2 (08:18→21:08)
[2019-11-09 08:30] VITALS: BP 114/75
[2019-11-09] MEDS: HYDROGEN PEROXIDE 3% 118 ML BOTTLE TP SCH ×2 (09:00→21:49)
--- NOTE | 2019-11-09 14:43 | NUR ---
ISAÍAS called and spoke with patient's father Abdi [phone] and informed him that the next IDT meeting for the patient has been scheduled for 11/14/2019 at 11am. ISAÍAS asked Abdi is he wanted to participate in the meeting via speaker phone, and he stated that since he will be at work, if SW can call patient's sister Jeanne instead. ISAÍAS expressed agreement, and asked Abdi to let patient's sister Jeanne know to be available on 11/13 between the hours of 11am-12pm in order to answer ISAÍAS's call during the meeting. Abdi expressed agreement. ISAÍAS will call patient's sister Jeanne at [phone].
[2019-11-09 20:46] VITALS: BP 107/66
[2019-11-09] MEDS: MELATONIN 3 MG TABLET GT SCH (21:01)
[2019-11-09] MEDS: CRANBERRY 500 MG GT SCH (21:02)
[2019-11-09] MEDS: MAGNESIUM COMPLEX GT SCH (21:04)
[2019-11-09] MEDS: NUTRISOURCE FIBER 4 GM PACKET GT SCH (21:05)
[2019-11-09] MEDS: ASCORBIC ACID 500 MG TABLET GT SCH (21:06)
[2019-11-09] MEDS: PROTEIN SUPPLEMENT (PROSTAT) 30 ML LIQUID GT SCH (21:06)
[2019-11-09] MEDS: RIVAROXABAN 15 MG TABLET GT SCH (21:08)
[2019-11-10] MEDS: METOCLOPRAMIDE HCL 10 MG/10 ML UDC GT SCH ×5 (05:52→23:07)
[2019-11-10] MEDS: MULTIVIT, IRON, MIN NO. 8, FA TABLET GT SCH (05:52)
[2019-11-10] MEDS: OMEPRAZOLE 20 MG CAPSULE.DR GT SCH (05:52)
[2019-11-10] MEDS: BACLOFEN 20 MG TABLET GT SCH ×3 (05:52→21:01)
[2019-11-10] MEDS: TWOCAL HN 1,000 ML LIQUID GT PRN (06:53)
[2019-11-10] MEDS: ACIDOPHILUS/BULGARICUS CHEW TAB GT SCH ×2 (08:16→20:50)
[2019-11-10] MEDS: DOCUSATE SODIUM 100 MG/10 ML LIQUID UDC GT SCH (08:17)
[2019-11-10] MEDS: POTASSIUM CHLORIDE 40 MEQ/30 ML LIQUID UDC GT SCH (08:18)
[2019-11-10] MEDS: levETIRAcetam 500 MG/5 ML LIQUID UDC GT SCH ×2 (08:18→20:50)
[2019-11-10] MEDS: COD LIVER OIL/ZINC OXIDE OINT 113 GM TUBE TP SCH ×2 (08:18→20:50)
[2019-11-10] MEDS: MIRALAX 17 GM POWD.PACK GT SCH (08:19)
[2019-11-10] MEDS: HYDROGEN PEROXIDE 3% 118 ML BOTTLE TP SCH ×2 (09:16→21:16)
[2019-11-10 11:28] VITALS: BP 98/54
[2019-11-10] MEDS: CRANBERRY 500 MG GT SCH (20:50)
[2019-11-10] MEDS: ASCORBIC ACID 500 MG TABLET GT SCH (20:50)
[2019-11-10] MEDS: MAGNESIUM COMPLEX GT SCH (20:50)
[2019-11-10] MEDS: PROTEIN SUPPLEMENT (PROSTAT) 30 ML LIQUID GT SCH (20:50)
[2019-11-10] MEDS: MELATONIN 3 MG TABLET GT SCH (20:50)
[2019-11-10] MEDS: NUTRISOURCE FIBER 4 GM PACKET GT SCH (20:50)
[2019-11-10] MEDS: RIVAROXABAN 15 MG TABLET GT SCH (20:58)
[2019-11-10 22:35] VITALS: BP 119/64
[2019-11-11] MEDS: MULTIVIT, IRON, MIN NO. 8, FA TABLET GT SCH (05:15)
[2019-11-11] MEDS: METOCLOPRAMIDE HCL 10 MG/10 ML UDC GT SCH ×4 (05:15→23:16)
[2019-11-11] MEDS: OMEPRAZOLE 20 MG CAPSULE.DR GT SCH (05:15)
[2019-11-11] MEDS: BACLOFEN 20 MG TABLET GT SCH ×3 (05:15→21:00)
[2019-11-11] MEDS: DOCUSATE SODIUM 100 MG/10 ML LIQUID UDC GT SCH (08:10)
[2019-11-11] MEDS: ACIDOPHILUS/BULGARICUS CHEW TAB GT SCH ×2 (08:11→20:47)
[2019-11-11] MEDS: COD LIVER OIL/ZINC OXIDE OINT 113 GM TUBE TP SCH ×2 (08:12→20:47)
[2019-11-11] MEDS: MIRALAX 17 GM POWD.PACK GT SCH (08:12)
[2019-11-11] MEDS: levETIRAcetam 500 MG/5 ML LIQUID UDC GT SCH ×2 (08:12→20:47)
[2019-11-11] MEDS: POTASSIUM CHLORIDE 40 MEQ/30 ML LIQUID UDC GT SCH (08:14)
[2019-11-11] MEDS: HYDROGEN PEROXIDE 3% 118 ML BOTTLE TP SCH ×3 (08:14→21:37)
[2019-11-11 14:14] VITALS: BP 113/68
[2019-11-11] MEDS: ACETAMINOPHEN 650 MG/20 ML UDC- SA PATIENTS-PAIN ONLY GT PRN (17:56)
--- NOTE | 2019-11-11 19:02 | NUR ---
patient facetimed with sister on this shift
[2019-11-11] MEDS: RIVAROXABAN 15 MG TABLET GT SCH (20:38)
[2019-11-11] MEDS: NUTRISOURCE FIBER 4 GM PACKET GT SCH (20:47)
[2019-11-11] MEDS: PROTEIN SUPPLEMENT (PROSTAT) 30 ML LIQUID GT SCH (20:47)
[2019-11-11] MEDS: ASCORBIC ACID 500 MG TABLET GT SCH (20:47)
[2019-11-11] MEDS: MELATONIN 3 MG TABLET GT SCH (20:47)
[2019-11-11] MEDS: CRANBERRY 500 MG GT SCH (20:47)
[2019-11-11] MEDS: MAGNESIUM COMPLEX GT SCH (20:47)
[2019-11-11 21:56] VITALS: BP 100/58
[2019-11-11] MEDS: TWOCAL HN 1,000 ML LIQUID GT PRN (23:05)
[2019-11-12] MEDS: BACLOFEN 20 MG TABLET GT SCH ×3 (05:19→21:09)
[2019-11-12] MEDS: MULTIVIT, IRON, MIN NO. 8, FA TABLET GT SCH (05:19)
[2019-11-12] MEDS: OMEPRAZOLE 20 MG CAPSULE.DR GT SCH (05:19)
[2019-11-12] MEDS: METOCLOPRAMIDE HCL 10 MG/10 ML UDC GT SCH ×3 (05:19→17:53)
[2019-11-12] MEDS: DOCUSATE SODIUM 100 MG/10 ML LIQUID UDC GT SCH (08:00)
[2019-11-12] MEDS: ACIDOPHILUS/BULGARICUS CHEW TAB GT SCH ×2 (08:00→20:39)
[2019-11-12] MEDS: levETIRAcetam 500 MG/5 ML LIQUID UDC GT SCH ×2 (08:01→20:39)
[2019-11-12] MEDS: MIRALAX 17 GM POWD.PACK GT SCH (08:01)
[2019-11-12] MEDS: POTASSIUM CHLORIDE 40 MEQ/30 ML LIQUID UDC GT SCH (08:02)
[2019-11-12] MEDS: COD LIVER OIL/ZINC OXIDE OINT 113 GM TUBE TP SCH ×2 (08:03→20:40)
[2019-11-12] MEDS: HYDROGEN PEROXIDE 3% 118 ML BOTTLE TP SCH ×2 (08:03→21:48)
[2019-11-12 11:21] VITALS: BP 100/49
[2019-11-12] MEDS: RIVAROXABAN 15 MG TABLET GT SCH (20:31)
[2019-11-12] MEDS: CRANBERRY 500 MG GT SCH (20:39)
[2019-11-12] MEDS: MELATONIN 3 MG TABLET GT SCH (20:39)
[2019-11-12] MEDS: NUTRISOURCE FIBER 4 GM PACKET GT SCH (20:40)
[2019-11-12] MEDS: PROTEIN SUPPLEMENT (PROSTAT) 30 ML LIQUID GT SCH (20:40)
[2019-11-12] MEDS: MAGNESIUM COMPLEX GT SCH (20:40)
[2019-11-12] MEDS: ASCORBIC ACID 500 MG TABLET GT SCH (20:40)
[2019-11-12 23:00] VITALS: BP 105/58
[2019-11-13] MEDS: METOCLOPRAMIDE HCL 10 MG/10 ML UDC GT SCH ×5 (00:53→23:24)
[2019-11-13] MEDS: MULTIVIT, IRON, MIN NO. 8, FA TABLET GT SCH (05:04)
[2019-11-13] MEDS: BACLOFEN 20 MG TABLET GT SCH ×3 (05:04→22:19)
[2019-11-13] MEDS: OMEPRAZOLE 20 MG CAPSULE.DR GT SCH (05:04)
[2019-11-13 08:00] VITALS: BP 82/53
[2019-11-13] MEDS: ACIDOPHILUS/BULGARICUS CHEW TAB GT SCH ×2 (08:30→20:13)
[2019-11-13] MEDS: MIRALAX 17 GM POWD.PACK GT SCH (08:30)
[2019-11-13] MEDS: DOCUSATE SODIUM 100 MG/10 ML LIQUID UDC GT SCH (08:30)
[2019-11-13] MEDS: levETIRAcetam 500 MG/5 ML LIQUID UDC GT SCH ×2 (08:30→20:13)
[2019-11-13] MEDS: POTASSIUM CHLORIDE 40 MEQ/30 ML LIQUID UDC GT SCH (08:30)
[2019-11-13] MEDS: COD LIVER OIL/ZINC OXIDE OINT 113 GM TUBE TP SCH ×2 (08:31→20:14)
[2019-11-13] MEDS: HYDROGEN PEROXIDE 3% 118 ML BOTTLE TP SCH ×2 (09:05→21:11)
--- NOTE | 2019-11-13 12:00 | NUR ---
SEEN BY [place] Trotter AND WITH NNO.
[2019-11-13] MEDS: CRANBERRY 500 MG GT SCH (20:13)
[2019-11-13] MEDS: PROTEIN SUPPLEMENT (PROSTAT) 30 ML LIQUID GT SCH (20:13)
[2019-11-13] MEDS: NUTRISOURCE FIBER 4 GM PACKET GT SCH (20:13)
[2019-11-13] MEDS: MAGNESIUM COMPLEX GT SCH (20:13)
[2019-11-13] MEDS: MELATONIN 3 MG TABLET GT SCH (20:13)
[2019-11-13] MEDS: ASCORBIC ACID 500 MG TABLET GT SCH (20:14)
[2019-11-13] MEDS: RIVAROXABAN 15 MG TABLET GT SCH (20:24)
[2019-11-13 20:39] VITALS: BP 119/79
[2019-11-14] MEDS: TWOCAL HN 1,000 ML LIQUID GT PRN (05:00)
[2019-11-14] MEDS: OMEPRAZOLE 20 MG CAPSULE.DR GT SCH (05:17)
[2019-11-14] MEDS: BACLOFEN 20 MG TABLET GT SCH ×3 (05:17→21:18)
[2019-11-14] MEDS: MULTIVIT, IRON, MIN NO. 8, FA TABLET GT SCH (05:17)
[2019-11-14] MEDS: METOCLOPRAMIDE HCL 10 MG/10 ML UDC GT SCH ×3 (05:17→17:03)
[2019-11-14 07:59] VITALS: BP 120/61
[2019-11-14] MEDS: levETIRAcetam 500 MG/5 ML LIQUID UDC GT SCH ×2 (08:07→20:40)
[2019-11-14] MEDS: ACIDOPHILUS/BULGARICUS CHEW TAB GT SCH ×2 (08:07→20:40)
[2019-11-14] MEDS: DOCUSATE SODIUM 100 MG/10 ML LIQUID UDC GT SCH (08:07)
[2019-11-14] MEDS: POTASSIUM CHLORIDE 40 MEQ/30 ML LIQUID UDC GT SCH (08:08)
[2019-11-14] MEDS: MIRALAX 17 GM POWD.PACK GT SCH (08:08)
[2019-11-14] MEDS: COD LIVER OIL/ZINC OXIDE OINT 113 GM TUBE TP SCH ×2 (08:08→20:42)
[2019-11-14] MEDS: HYDROGEN PEROXIDE 3% 118 ML BOTTLE TP SCH ×2 (09:59→20:57)
--- NOTE | 2019-11-14 13:24 | NUR ---
Pharmacy Update from Today's 11/14/19 IDT Meeting: VS: Temp 97.5 BP 120/61 HR 60 LABS: (from 08/30/19, no new labs) Wbc 9.4 H/H 13.9/42.5 Plt 243 Na 142 K 4.4 Cl 105 CO2 31 BUN/SCr 17/0.6 BS 87 ca 9.3 phos 4.4 Mg 2.1 MEDICATION USE REVIEWED: > Pt not on any anti-psych medications > On Keppra 500mg q12h, last calculated CrCl was >100 ml/min. Renal fxn ok for current dosing. > On Xarelto 15mg daily, no bleeding noted, last plt was 243 > On KCl 20meq daily, last K 4.4 > PRN MED USAGE: (October) Tylenol for pain used x1 Artificial tears used x0 Bisacodyl used x1 Mucinex DM used x0 NEW ORDERS NOTED: > NA Pt was reviewed and discussed in depth with family in attendance via phone conference (d/t covid regulations) with no medication issues noted. No further medication recommendations at this time, remains stable on current regimen. Will continue to monitor
--- NOTE | 2019-11-14 13:30 | NUR ---
FT done with patient's sister.
--- NOTE | 2019-11-14 14:31 | NUR ---
Seen by xander alberto and with new orders carried out
--- NOTE | 2019-11-14 16:20 | NUR ---
INTERDISCIPLINARY PLAN OF CARE CONFERENCE was held today. Patient's sister Jeanne participated in the meeting via speaker phone. Dr. Cartagena and the Interdisciplinary Team reviewed the current plan of care in detail. RN reported on patient's current medical condition and findings of recent lab findings. See RN IDT conference notes. No major changes in condition were reported. See all disciplines IDT notes and physician's progress notes for additional details. Patient's sister Jeanne asked about the possibility of PT and ST services for the patient, and PT Radha stated that she will arrange for evaluations and an appropriate treatment plan for the patient. Jeanne expressed being content with this plan.
[2019-11-14 20:00] VITALS: BP 104/60
[2019-11-14] MEDS: MELATONIN 3 MG TABLET GT SCH (20:40)
[2019-11-14] MEDS: MAGNESIUM COMPLEX GT SCH (20:40)
[2019-11-14] MEDS: CRANBERRY 500 MG GT SCH (20:40)
[2019-11-14] MEDS: NUTRISOURCE FIBER 4 GM PACKET GT SCH (20:40)
[2019-11-14] MEDS: PROTEIN SUPPLEMENT (PROSTAT) 30 ML LIQUID GT SCH (20:40)
[2019-11-14] MEDS: ASCORBIC ACID 500 MG TABLET GT SCH (20:42)
[2019-11-14] MEDS: RIVAROXABAN 15 MG TABLET GT SCH (20:43)
[2019-11-15] MEDS: METOCLOPRAMIDE HCL 10 MG/10 ML UDC GT SCH ×4 (00:51→17:07)
[2019-11-15] MEDS: OMEPRAZOLE 20 MG CAPSULE.DR GT SCH (05:16)
[2019-11-15] MEDS: BACLOFEN 20 MG TABLET GT SCH ×3 (05:16→21:06)
[2019-11-15] MEDS: MULTIVIT, IRON, MIN NO. 8, FA TABLET GT SCH (05:16)
[2019-11-15 08:00] VITALS: BP 111/69
[2019-11-15] MEDS: DOCUSATE SODIUM 100 MG/10 ML LIQUID UDC GT SCH (08:37)
[2019-11-15] MEDS: ACIDOPHILUS/BULGARICUS CHEW TAB GT SCH ×2 (08:37→21:05)
[2019-11-15] MEDS: POTASSIUM CHLORIDE 40 MEQ/30 ML LIQUID UDC GT SCH (08:38)
[2019-11-15] MEDS: levETIRAcetam 500 MG/5 ML LIQUID UDC GT SCH ×2 (08:38→21:05)
[2019-11-15] MEDS: MIRALAX 17 GM POWD.PACK GT SCH (08:38)
[2019-11-15] MEDS: COD LIVER OIL/ZINC OXIDE OINT 113 GM TUBE TP SCH ×2 (08:39→21:07)
[2019-11-15] MEDS: HYDROGEN PEROXIDE 3% 118 ML BOTTLE TP SCH ×2 (09:29→21:23)
--- NOTE | 2019-11-15 12:40 | NUR ---
FT done with patient's mother at this time.
[2019-11-15 20:00] VITALS: BP 104/63
[2019-11-15] MEDS: MELATONIN 3 MG TABLET GT SCH (21:05)
[2019-11-15] MEDS: CRANBERRY 500 MG GT SCH (21:06)
[2019-11-15] MEDS: NUTRISOURCE FIBER 4 GM PACKET GT SCH (21:06)
[2019-11-15] MEDS: PROTEIN SUPPLEMENT (PROSTAT) 30 ML LIQUID GT SCH (21:06)
[2019-11-15] MEDS: MAGNESIUM COMPLEX GT SCH (21:06)
[2019-11-15] MEDS: ASCORBIC ACID 500 MG TABLET GT SCH (21:06)
[2019-11-15] MEDS: RIVAROXABAN 15 MG TABLET GT SCH (21:10)
[2019-11-16] MEDS: METOCLOPRAMIDE HCL 10 MG/10 ML UDC GT SCH ×4 (00:39→17:05)
[2019-11-16] MEDS: BACLOFEN 20 MG TABLET GT SCH ×3 (05:48→21:05)
[2019-11-16] MEDS: MULTIVIT, IRON, MIN NO. 8, FA TABLET GT SCH (05:49)
[2019-11-16] MEDS: OMEPRAZOLE 20 MG CAPSULE.DR GT SCH (05:49)
[2019-11-16] MEDS: COD LIVER OIL/ZINC OXIDE OINT 113 GM TUBE TP SCH ×2 (08:06→20:50)
[2019-11-16] MEDS: MIRALAX 17 GM POWD.PACK GT SCH (08:06)
[2019-11-16] MEDS: ACIDOPHILUS/BULGARICUS CHEW TAB GT SCH ×2 (08:06→20:44)
[2019-11-16] MEDS: DOCUSATE SODIUM 100 MG/10 ML LIQUID UDC GT SCH (08:06)
[2019-11-16] MEDS: levETIRAcetam 500 MG/5 ML LIQUID UDC GT SCH ×2 (08:06→20:44)
[2019-11-16] MEDS: POTASSIUM CHLORIDE 40 MEQ/30 ML LIQUID UDC GT SCH (08:06)
[2019-11-16] MEDS: HYDROGEN PEROXIDE 3% 118 ML BOTTLE TP SCH ×2 (09:14→20:51)
--- NOTE | 2019-11-16 10:30 | NUR ---
nursing notes: provided facetime for patient with father Abdi, patient stable, no signs of any pain or distress noted at this time. will continue to monitor.
--- NOTE | 2019-11-16 15:10 | NUR ---
This SW met with patient's father Abdi this morning, who was in the hospital lobby, wanting to speak with someone from Subacute regarding visiting the patient. Abdi expressed concern about visitation restrictions, and ISAÍAS reminded Abdi that based on [facility] and CMS recommendations, the visitation restrictions will need to remain in place until further notice in order to ensure the safety of the patient(s) and staff. ISAÍAS validated Abdi's feelings and sympathized with the stressors on family members during the current pandemic, but assured Abdi that patient is well taken care of and safe. Abdi expressed agreement in knowing that patient is well taken care of and safe, but expressed being anxious for being away from the patient for so long. SW allowed Abdi to express his feelings. ISAÍAS reminded Abdi to continue to utilize phone calls and FaceTime to maintain contact with the patient, and Abdi expressed agreement. Abdi thanked ISAÍAS for her time. ISAÍAS notified [employer] Raghavendra Alexander and Harmeet Sampson of above interaction.
[2019-11-16 20:02] VITALS: BP 113/67
[2019-11-16] MEDS: CRANBERRY 500 MG GT SCH (20:45)
[2019-11-16] MEDS: MELATONIN 3 MG TABLET GT SCH (20:45)
[2019-11-16] MEDS: MAGNESIUM COMPLEX GT SCH (20:45)
[2019-11-16] MEDS: NUTRISOURCE FIBER 4 GM PACKET GT SCH (20:48)
[2019-11-16] MEDS: PROTEIN SUPPLEMENT (PROSTAT) 30 ML LIQUID GT SCH (20:48)
[2019-11-16] MEDS: ASCORBIC ACID 500 MG TABLET GT SCH (20:49)
[2019-11-16] MEDS: RIVAROXABAN 15 MG TABLET GT SCH (21:05)
[2019-11-17] MEDS: METOCLOPRAMIDE HCL 10 MG/10 ML UDC GT SCH ×4 (00:58→17:29)
[2019-11-17] MEDS: MULTIVIT, IRON, MIN NO. 8, FA TABLET GT SCH (05:20)
[2019-11-17] MEDS: BACLOFEN 20 MG TABLET GT SCH ×3 (05:20→21:24)
[2019-11-17] MEDS: OMEPRAZOLE 20 MG CAPSULE.DR GT SCH (05:20)
[2019-11-17] MEDS: DOCUSATE SODIUM 100 MG/10 ML LIQUID UDC GT SCH (08:45)
[2019-11-17] MEDS: levETIRAcetam 500 MG/5 ML LIQUID UDC GT SCH ×2 (08:45→20:40)
[2019-11-17] MEDS: MIRALAX 17 GM POWD.PACK GT SCH (08:45)
[2019-11-17] MEDS: ACIDOPHILUS/BULGARICUS CHEW TAB GT SCH ×2 (08:45→20:40)
[2019-11-17] MEDS: POTASSIUM CHLORIDE 40 MEQ/30 ML LIQUID UDC GT SCH (08:45)
[2019-11-17] MEDS: COD LIVER OIL/ZINC OXIDE OINT 113 GM TUBE TP SCH ×2 (08:45→20:41)
[2019-11-17] MEDS: HYDROGEN PEROXIDE 3% 118 ML BOTTLE TP SCH ×2 (10:00→21:55)
--- NOTE | 2019-11-17 13:30 | NUR ---
Provided face time to pt. and her sister with no complains noted. Pt. remains comfortable and with no signs of pain noted.
[2019-11-17] MEDS: MAGNESIUM COMPLEX GT SCH (20:40)
[2019-11-17] MEDS: NUTRISOURCE FIBER 4 GM PACKET GT SCH (20:40)
[2019-11-17] MEDS: CRANBERRY 500 MG GT SCH (20:40)
[2019-11-17] MEDS: PROTEIN SUPPLEMENT (PROSTAT) 30 ML LIQUID GT SCH (20:40)
[2019-11-17] MEDS: MELATONIN 3 MG TABLET GT SCH (20:40)
[2019-11-17] MEDS: ASCORBIC ACID 500 MG TABLET GT SCH (20:41)
[2019-11-17 20:58] VITALS: BP 119/73
[2019-11-17] MEDS: RIVAROXABAN 15 MG TABLET GT SCH (21:00)
[2019-11-18] MEDS: METOCLOPRAMIDE HCL 10 MG/10 ML UDC GT SCH ×4 (00:13→18:02)
[2019-11-18] MEDS: TWOCAL HN 1,000 ML LIQUID GT PRN (03:44)
[2019-11-18] MEDS: OMEPRAZOLE 20 MG CAPSULE.DR GT SCH (06:23)
[2019-11-18] MEDS: MULTIVIT, IRON, MIN NO. 8, FA TABLET GT SCH (06:23)
[2019-11-18] MEDS: BACLOFEN 20 MG TABLET GT SCH ×3 (06:23→21:05)
[2019-11-18] MEDS: HYDROGEN PEROXIDE 3% 118 ML BOTTLE TP SCH ×2 (08:17→20:40)
[2019-11-18] MEDS: DOCUSATE SODIUM 100 MG/10 ML LIQUID UDC GT SCH (09:21)
[2019-11-18] MEDS: POTASSIUM CHLORIDE 40 MEQ/30 ML LIQUID UDC GT SCH (09:21)
[2019-11-18] MEDS: levETIRAcetam 500 MG/5 ML LIQUID UDC GT SCH ×2 (09:21→21:05)
[2019-11-18] MEDS: COD LIVER OIL/ZINC OXIDE OINT 113 GM TUBE TP SCH ×2 (09:21→21:05)
[2019-11-18] MEDS: ACIDOPHILUS/BULGARICUS CHEW TAB GT SCH ×2 (09:21→21:05)
[2019-11-18] MEDS: MIRALAX 17 GM POWD.PACK GT SCH (09:21)
[2019-11-18 11:36] VITALS: BP 90/56
[2019-11-18 20:22] VITALS: BP 109/66
[2019-11-18] MEDS: NUTRISOURCE FIBER 4 GM PACKET GT SCH (21:05)
[2019-11-18] MEDS: MAGNESIUM COMPLEX GT SCH (21:05)
[2019-11-18] MEDS: ASCORBIC ACID 500 MG TABLET GT SCH (21:05)
[2019-11-18] MEDS: RIVAROXABAN 15 MG TABLET GT SCH (21:05)
[2019-11-18] MEDS: MELATONIN 3 MG TABLET GT SCH (21:05)
[2019-11-18] MEDS: PROTEIN SUPPLEMENT (PROSTAT) 30 ML LIQUID GT SCH (21:05)
[2019-11-18] MEDS: CRANBERRY 500 MG GT SCH (21:05)
[2019-11-19] MEDS: METOCLOPRAMIDE HCL 10 MG/10 ML UDC GT SCH ×5 (00:42→23:13)
[2019-11-19] MEDS: BACLOFEN 20 MG TABLET GT SCH ×3 (05:13→21:20)
[2019-11-19] MEDS: OMEPRAZOLE 20 MG CAPSULE.DR GT SCH (05:13)
[2019-11-19] MEDS: MULTIVIT, IRON, MIN NO. 8, FA TABLET GT SCH (05:13)
[2019-11-19] MEDS: HYDROGEN PEROXIDE 3% 118 ML BOTTLE TP SCH ×2 (08:10→21:28)
[2019-11-19 08:30] VITALS: BP 97/55
[2019-11-19] MEDS: levETIRAcetam 500 MG/5 ML LIQUID UDC GT SCH ×2 (08:40→21:17)
[2019-11-19] MEDS: MIRALAX 17 GM POWD.PACK GT SCH (08:40)
[2019-11-19] MEDS: DOCUSATE SODIUM 100 MG/10 ML LIQUID UDC GT SCH (08:40)
[2019-11-19] MEDS: POTASSIUM CHLORIDE 40 MEQ/30 ML LIQUID UDC GT SCH (08:40)
[2019-11-19] MEDS: ACIDOPHILUS/BULGARICUS CHEW TAB GT SCH ×2 (08:40→21:17)
[2019-11-19] MEDS: COD LIVER OIL/ZINC OXIDE OINT 113 GM TUBE TP SCH ×2 (08:40→21:18)
--- NOTE | 2019-11-19 14:00 | NUR ---
Seen and examined by Dr Alvarez,no new orders noted.
[2019-11-19] MEDS: MELATONIN 3 MG TABLET GT SCH (21:17)
[2019-11-19] MEDS: ASCORBIC ACID 500 MG TABLET GT SCH (21:17)
[2019-11-19] MEDS: CRANBERRY 500 MG GT SCH (21:17)
[2019-11-19] MEDS: MAGNESIUM COMPLEX GT SCH (21:17)
[2019-11-19] MEDS: NUTRISOURCE FIBER 4 GM PACKET GT SCH (21:17)
[2019-11-19] MEDS: PROTEIN SUPPLEMENT (PROSTAT) 30 ML LIQUID GT SCH (21:17)
[2019-11-19] MEDS: RIVAROXABAN 15 MG TABLET GT SCH (21:18)
[2019-11-19 22:56] VITALS: BP 96/68
[2019-11-20] MEDS: TWOCAL HN 1,000 ML LIQUID GT PRN (05:23)
[2019-11-20] MEDS: METOCLOPRAMIDE HCL 10 MG/10 ML UDC GT SCH ×4 (05:23→23:47)
[2019-11-20] MEDS: MULTIVIT, IRON, MIN NO. 8, FA TABLET GT SCH (05:23)
[2019-11-20] MEDS: OMEPRAZOLE 20 MG CAPSULE.DR GT SCH (05:23)
[2019-11-20] MEDS: BACLOFEN 20 MG TABLET GT SCH ×3 (05:23→21:25)
[2019-11-20] MEDS: DOCUSATE SODIUM 100 MG/10 ML LIQUID UDC GT SCH (08:09)
[2019-11-20] MEDS: levETIRAcetam 500 MG/5 ML LIQUID UDC GT SCH ×2 (08:10→20:23)
[2019-11-20] MEDS: POTASSIUM CHLORIDE 40 MEQ/30 ML LIQUID UDC GT SCH (08:10)
[2019-11-20] MEDS: COD LIVER OIL/ZINC OXIDE OINT 113 GM TUBE TP SCH ×2 (08:10→20:24)
[2019-11-20] MEDS: MIRALAX 17 GM POWD.PACK GT SCH (08:10)
[2019-11-20] MEDS: ACIDOPHILUS/BULGARICUS CHEW TAB GT SCH ×2 (08:10→20:23)
[2019-11-20] MEDS: HYDROGEN PEROXIDE 3% 118 ML BOTTLE TP SCH ×2 (08:19→21:13)
[2019-11-20 08:30] VITALS: BP 101/61
--- NOTE | 2019-11-20 17:00 | NUR ---
FaceTime with mother, pt was happy and smiling.
[2019-11-20] MEDS: POLYVINYL ALCOHOL OPHT DROPS 15 ML BOTTLE EACHEYE PRN (17:59)
[2019-11-20] MEDS: NUTRISOURCE FIBER 4 GM PACKET GT SCH (20:23)
[2019-11-20] MEDS: ASCORBIC ACID 500 MG TABLET GT SCH (20:23)
[2019-11-20] MEDS: MELATONIN 3 MG TABLET GT SCH (20:23)
[2019-11-20] MEDS: MAGNESIUM COMPLEX GT SCH (20:23)
[2019-11-20] MEDS: CRANBERRY 500 MG GT SCH (20:23)
[2019-11-20] MEDS: PROTEIN SUPPLEMENT (PROSTAT) 30 ML LIQUID GT SCH (20:23)
[2019-11-20] MEDS: RIVAROXABAN 15 MG TABLET GT SCH (20:24)
[2019-11-20 20:25] VITALS: BP 101/65
[2019-11-21] MEDS: OMEPRAZOLE 20 MG CAPSULE.DR GT SCH (05:14)
[2019-11-21] MEDS: BACLOFEN 20 MG TABLET GT SCH ×3 (05:14→21:27)
[2019-11-21] MEDS: MULTIVIT, IRON, MIN NO. 8, FA TABLET GT SCH (05:14)
[2019-11-21] MEDS: METOCLOPRAMIDE HCL 10 MG/10 ML UDC GT SCH ×3 (05:14→17:28)
[2019-11-21] MEDS: HYDROGEN PEROXIDE 3% 118 ML BOTTLE TP SCH ×2 (08:30→21:01)
[2019-11-21] MEDS: ACIDOPHILUS/BULGARICUS CHEW TAB GT SCH ×2 (08:58→21:21)
[2019-11-21] MEDS: DOCUSATE SODIUM 100 MG/10 ML LIQUID UDC GT SCH (08:58)
[2019-11-21] MEDS: levETIRAcetam 500 MG/5 ML LIQUID UDC GT SCH ×2 (08:59→21:21)
[2019-11-21] MEDS: POTASSIUM CHLORIDE 40 MEQ/30 ML LIQUID UDC GT SCH (09:00)
[2019-11-21] MEDS: MIRALAX 17 GM POWD.PACK GT SCH (09:00)
[2019-11-21] MEDS: COD LIVER OIL/ZINC OXIDE OINT 113 GM TUBE TP SCH ×2 (09:01→21:27)
[2019-11-21 10:37] VITALS: BP 101/50
--- NOTE | 2019-11-21 17:00 | NUR ---
Facetime done with sister.
[2019-11-21] MEDS: MELATONIN 3 MG TABLET GT SCH (21:22)
[2019-11-21] MEDS: CRANBERRY 500 MG GT SCH (21:25)
[2019-11-21] MEDS: NUTRISOURCE FIBER 4 GM PACKET GT SCH (21:26)
[2019-11-21] MEDS: PROTEIN SUPPLEMENT (PROSTAT) 30 ML LIQUID GT SCH (21:26)
[2019-11-21] MEDS: ASCORBIC ACID 500 MG TABLET GT SCH (21:26)
[2019-11-21] MEDS: MAGNESIUM COMPLEX GT SCH (21:26)
[2019-11-21] MEDS: RIVAROXABAN 15 MG TABLET GT SCH (21:27)
[2019-11-21 22:10] VITALS: BP 106/62
[2019-11-22] MEDS: METOCLOPRAMIDE HCL 10 MG/10 ML UDC GT SCH ×4 (00:16→17:50)
[2019-11-22] MEDS: TWOCAL HN 1,000 ML LIQUID GT PRN (03:59)
[2019-11-22] MEDS: OMEPRAZOLE 20 MG CAPSULE.DR GT SCH (06:31)
[2019-11-22] MEDS: MULTIVIT, IRON, MIN NO. 8, FA TABLET GT SCH (06:31)
[2019-11-22] MEDS: BACLOFEN 20 MG TABLET GT SCH ×3 (06:31→21:02)
[2019-11-22] MEDS: ACIDOPHILUS/BULGARICUS CHEW TAB GT SCH ×2 (09:52→21:01)
[2019-11-22] MEDS: levETIRAcetam 500 MG/5 ML LIQUID UDC GT SCH ×2 (09:52→21:01)
[2019-11-22] MEDS: DOCUSATE SODIUM 100 MG/10 ML LIQUID UDC GT SCH (09:52)
[2019-11-22] MEDS: POTASSIUM CHLORIDE 40 MEQ/30 ML LIQUID UDC GT SCH (09:52)
[2019-11-22] MEDS: MIRALAX 17 GM POWD.PACK GT SCH (09:52)
[2019-11-22] MEDS: HYDROGEN PEROXIDE 3% 118 ML BOTTLE TP SCH ×2 (09:53→21:08)
[2019-11-22] MEDS: COD LIVER OIL/ZINC OXIDE OINT 113 GM TUBE TP SCH ×2 (09:53→21:02)
[2019-11-22 10:51] VITALS: BP 97/64
--- NOTE | 2019-11-22 15:24 | NUR ---
Facetime done with patient's father at this time.
--- NOTE | 2019-11-22 15:30 | NUR ---
Patient had a Facetime with patient's father at this time.
[2019-11-22 20:00] VITALS: BP_SYST 112; BP_DIAS 57; BP_DIAS 65
[2019-11-22] MEDS: MAGNESIUM COMPLEX GT SCH (21:01)
[2019-11-22] MEDS: ASCORBIC ACID 500 MG TABLET GT SCH (21:01)
[2019-11-22] MEDS: NUTRISOURCE FIBER 4 GM PACKET GT SCH (21:01)
[2019-11-22] MEDS: MELATONIN 3 MG TABLET GT SCH (21:01)
[2019-11-22] MEDS: PROTEIN SUPPLEMENT (PROSTAT) 30 ML LIQUID GT SCH (21:01)
[2019-11-22] MEDS: CRANBERRY 500 MG GT SCH (21:01)
[2019-11-22] MEDS: RIVAROXABAN 15 MG TABLET GT SCH (21:02)
[2019-11-23] MEDS: METOCLOPRAMIDE HCL 10 MG/10 ML UDC GT SCH ×4 (00:41→17:23)
[2019-11-23] MEDS: MULTIVIT, IRON, MIN NO. 8, FA TABLET GT SCH (06:03)
[2019-11-23] MEDS: BACLOFEN 20 MG TABLET GT SCH ×3 (06:03→21:14)
[2019-11-23] MEDS: OMEPRAZOLE 20 MG CAPSULE.DR GT SCH (06:03)
[2019-11-23 08:00] VITALS: BP 112/70
[2019-11-23] MEDS: ACIDOPHILUS/BULGARICUS CHEW TAB GT SCH ×2 (08:30→21:12)
[2019-11-23] MEDS: DOCUSATE SODIUM 100 MG/10 ML LIQUID UDC GT SCH (08:30)
[2019-11-23] MEDS: levETIRAcetam 500 MG/5 ML LIQUID UDC GT SCH ×2 (08:30→21:12)
[2019-11-23] MEDS: COD LIVER OIL/ZINC OXIDE OINT 113 GM TUBE TP SCH ×2 (08:31→21:14)
[2019-11-23] MEDS: MIRALAX 17 GM POWD.PACK GT SCH (08:31)
[2019-11-23] MEDS: POTASSIUM CHLORIDE 40 MEQ/30 ML LIQUID UDC GT SCH (08:31)
[2019-11-23] MEDS: HYDROGEN PEROXIDE 3% 118 ML BOTTLE TP SCH ×2 (09:00→21:30)
[2019-11-23 20:00] VITALS: BP 109/67
[2019-11-23] MEDS: MAGNESIUM COMPLEX GT SCH (21:12)
[2019-11-23] MEDS: ASCORBIC ACID 500 MG TABLET GT SCH (21:12)
[2019-11-23] MEDS: MELATONIN 3 MG TABLET GT SCH (21:12)
[2019-11-23] MEDS: CRANBERRY 500 MG GT SCH (21:12)
[2019-11-23] MEDS: PROTEIN SUPPLEMENT (PROSTAT) 30 ML LIQUID GT SCH (21:12)
[2019-11-23] MEDS: NUTRISOURCE FIBER 4 GM PACKET GT SCH (21:12)
[2019-11-23] MEDS: RIVAROXABAN 15 MG TABLET GT SCH (21:14)
[2019-11-24] MEDS: METOCLOPRAMIDE HCL 10 MG/10 ML UDC GT SCH ×5 (00:47→23:10)
[2019-11-24] MEDS: TWOCAL HN 1,000 ML LIQUID GT PRN (04:01)
[2019-11-24] MEDS: OMEPRAZOLE 20 MG CAPSULE.DR GT SCH (06:00)
[2019-11-24] MEDS: MULTIVIT, IRON, MIN NO. 8, FA TABLET GT SCH (06:00)
[2019-11-24] MEDS: BACLOFEN 20 MG TABLET GT SCH ×3 (06:00→21:10)
[2019-11-24 08:00] VITALS: BP 112/70
[2019-11-24] MEDS: HYDROGEN PEROXIDE 3% 118 ML BOTTLE TP SCH ×2 (09:00→21:45)
[2019-11-24] MEDS: POTASSIUM CHLORIDE 40 MEQ/30 ML LIQUID UDC GT SCH (09:30)
[2019-11-24] MEDS: COD LIVER OIL/ZINC OXIDE OINT 113 GM TUBE TP SCH ×2 (09:30→20:30)
[2019-11-24] MEDS: MIRALAX 17 GM POWD.PACK GT SCH (09:30)
[2019-11-24] MEDS: levETIRAcetam 500 MG/5 ML LIQUID UDC GT SCH ×2 (09:30→20:30)
[2019-11-24] MEDS: ACIDOPHILUS/BULGARICUS CHEW TAB GT SCH ×2 (09:30→20:30)
[2019-11-24] MEDS: DOCUSATE SODIUM 100 MG/10 ML LIQUID UDC GT SCH (09:30)
[2019-11-24 20:00] VITALS: BP 122/77
[2019-11-24] MEDS: RIVAROXABAN 15 MG TABLET GT SCH (20:25)
[2019-11-24] MEDS: MAGNESIUM COMPLEX GT SCH (20:30)
[2019-11-24] MEDS: CRANBERRY 500 MG GT SCH (20:30)
[2019-11-24] MEDS: ASCORBIC ACID 500 MG TABLET GT SCH (20:30)
[2019-11-24] MEDS: MELATONIN 3 MG TABLET GT SCH (20:30)
[2019-11-24] MEDS: PROTEIN SUPPLEMENT (PROSTAT) 30 ML LIQUID GT SCH (20:30)
[2019-11-24] MEDS: NUTRISOURCE FIBER 4 GM PACKET GT SCH (20:30)
[2019-11-25] MEDS: BACLOFEN 20 MG TABLET GT SCH ×3 (05:28→21:09)
[2019-11-25] MEDS: OMEPRAZOLE 20 MG CAPSULE.DR GT SCH (05:28)
[2019-11-25] MEDS: MULTIVIT, IRON, MIN NO. 8, FA TABLET GT SCH (05:28)
[2019-11-25] MEDS: METOCLOPRAMIDE HCL 10 MG/10 ML UDC GT SCH ×4 (05:28→23:52)
[2019-11-25] MEDS: levETIRAcetam 500 MG/5 ML LIQUID UDC GT SCH ×2 (08:06→20:35)
[2019-11-25] MEDS: DOCUSATE SODIUM 100 MG/10 ML LIQUID UDC GT SCH (08:07)
[2019-11-25] MEDS: POTASSIUM CHLORIDE 40 MEQ/30 ML LIQUID UDC GT SCH (08:09)
[2019-11-25] MEDS: HYDROGEN PEROXIDE 3% 118 ML BOTTLE TP SCH ×2 (08:10→21:09)
[2019-11-25] MEDS: COD LIVER OIL/ZINC OXIDE OINT 113 GM TUBE TP SCH ×2 (08:10→20:35)
[2019-11-25] MEDS: MIRALAX 17 GM POWD.PACK GT SCH (08:12)
[2019-11-25] MEDS: ACIDOPHILUS/BULGARICUS CHEW TAB GT SCH ×2 (08:12→20:35)
[2019-11-25 12:20] VITALS: BP 91/53
--- NOTE | 2019-11-25 16:46 | NUR ---
Facetime done with the sister and mother
[2019-11-25] MEDS: RIVAROXABAN 15 MG TABLET GT SCH (20:28)
[2019-11-25] MEDS: PROTEIN SUPPLEMENT (PROSTAT) 30 ML LIQUID GT SCH (20:35)
[2019-11-25] MEDS: CRANBERRY 500 MG GT SCH (20:35)
[2019-11-25] MEDS: ASCORBIC ACID 500 MG TABLET GT SCH (20:35)
[2019-11-25] MEDS: MAGNESIUM COMPLEX GT SCH (20:35)
[2019-11-25] MEDS: MELATONIN 3 MG TABLET GT SCH (20:35)
[2019-11-25] MEDS: NUTRISOURCE FIBER 4 GM PACKET GT SCH (20:35)
[2019-11-25 22:26] VITALS: BP 102/65
[2019-11-26] MEDS: TWOCAL HN 1,000 ML LIQUID GT PRN (03:15)
[2019-11-26] MEDS: BACLOFEN 20 MG TABLET GT SCH ×3 (05:17→21:13)
[2019-11-26] MEDS: MULTIVIT, IRON, MIN NO. 8, FA TABLET GT SCH (05:17)
[2019-11-26] MEDS: OMEPRAZOLE 20 MG CAPSULE.DR GT SCH (05:17)
[2019-11-26] MEDS: METOCLOPRAMIDE HCL 10 MG/10 ML UDC GT SCH ×4 (05:17→23:19)
[2019-11-26] MEDS: ACIDOPHILUS/BULGARICUS CHEW TAB GT SCH ×2 (08:32→20:33)
[2019-11-26] MEDS: levETIRAcetam 500 MG/5 ML LIQUID UDC GT SCH ×2 (08:32→20:33)
[2019-11-26] MEDS: POTASSIUM CHLORIDE 40 MEQ/30 ML LIQUID UDC GT SCH (08:32)
[2019-11-26] MEDS: MIRALAX 17 GM POWD.PACK GT SCH (08:32)
[2019-11-26] MEDS: DOCUSATE SODIUM 100 MG/10 ML LIQUID UDC GT SCH (08:32)
[2019-11-26] MEDS: COD LIVER OIL/ZINC OXIDE OINT 113 GM TUBE TP SCH ×2 (08:33→20:33)
[2019-11-26] MEDS: HYDROGEN PEROXIDE 3% 118 ML BOTTLE TP SCH ×2 (08:35→20:50)
[2019-11-26 11:32] VITALS: BP 99/59
[2019-11-26] MEDS: RIVAROXABAN 15 MG TABLET GT SCH (20:30)
[2019-11-26] MEDS: NUTRISOURCE FIBER 4 GM PACKET GT SCH (20:33)
[2019-11-26] MEDS: MELATONIN 3 MG TABLET GT SCH (20:33)
[2019-11-26] MEDS: CRANBERRY 500 MG GT SCH (20:33)
[2019-11-26] MEDS: PROTEIN SUPPLEMENT (PROSTAT) 30 ML LIQUID GT SCH (20:33)
[2019-11-26] MEDS: ASCORBIC ACID 500 MG TABLET GT SCH (20:33)
[2019-11-26] MEDS: MAGNESIUM COMPLEX GT SCH (20:33)
[2019-11-26 22:13] VITALS: BP 96/56
[2019-11-27] MEDS: METOCLOPRAMIDE HCL 10 MG/10 ML UDC GT SCH ×4 (05:13→23:21)
[2019-11-27] MEDS: MULTIVIT, IRON, MIN NO. 8, FA TABLET GT SCH (05:13)
[2019-11-27] MEDS: BACLOFEN 20 MG TABLET GT SCH ×3 (05:13→21:09)
[2019-11-27] MEDS: OMEPRAZOLE 20 MG CAPSULE.DR GT SCH (05:13)
[2019-11-27] MEDS: levETIRAcetam 500 MG/5 ML LIQUID UDC GT SCH ×2 (08:25→20:09)
[2019-11-27] MEDS: ACIDOPHILUS/BULGARICUS CHEW TAB GT SCH ×2 (08:25→20:09)
[2019-11-27] MEDS: DOCUSATE SODIUM 100 MG/10 ML LIQUID UDC GT SCH (08:25)
[2019-11-27] MEDS: COD LIVER OIL/ZINC OXIDE OINT 113 GM TUBE TP SCH ×2 (08:25→20:09)
[2019-11-27] MEDS: POTASSIUM CHLORIDE 40 MEQ/30 ML LIQUID UDC GT SCH (08:25)
[2019-11-27] MEDS: MIRALAX 17 GM POWD.PACK GT SCH (08:25)
[2019-11-27 08:30] VITALS: BP 105/59
[2019-11-27] MEDS: HYDROGEN PEROXIDE 3% 118 ML BOTTLE TP SCH ×2 (10:20→20:09)
[2019-11-27] MEDS: NUTRISOURCE FIBER 4 GM PACKET GT SCH (20:09)
[2019-11-27] MEDS: PROTEIN SUPPLEMENT (PROSTAT) 30 ML LIQUID GT SCH (20:09)
[2019-11-27] MEDS: MELATONIN 3 MG TABLET GT SCH (20:09)
[2019-11-27] MEDS: CRANBERRY 500 MG GT SCH (20:09)
[2019-11-27] MEDS: ASCORBIC ACID 500 MG TABLET GT SCH (20:09)
[2019-11-27] MEDS: MAGNESIUM COMPLEX GT SCH (20:09)
[2019-11-27 20:26] VITALS: BP 124/74
[2019-11-27] MEDS: RIVAROXABAN 15 MG TABLET GT SCH (21:09)
[2019-11-28] MEDS: METOCLOPRAMIDE HCL 10 MG/10 ML UDC GT SCH ×3 (05:02→17:28)
[2019-11-28] MEDS: MULTIVIT, IRON, MIN NO. 8, FA TABLET GT SCH (05:02)
[2019-11-28] MEDS: OMEPRAZOLE 20 MG CAPSULE.DR GT SCH (05:02)
[2019-11-28] MEDS: BACLOFEN 20 MG TABLET GT SCH ×3 (05:02→21:10)
[2019-11-28 07:51] VITALS: BP 91/53
[2019-11-28] MEDS: POTASSIUM CHLORIDE 40 MEQ/30 ML LIQUID UDC GT SCH (08:28)
[2019-11-28] MEDS: COD LIVER OIL/ZINC OXIDE OINT 113 GM TUBE TP SCH ×2 (08:28→21:10)
[2019-11-28] MEDS: levETIRAcetam 500 MG/5 ML LIQUID UDC GT SCH ×2 (08:28→21:01)
[2019-11-28] MEDS: DOCUSATE SODIUM 100 MG/10 ML LIQUID UDC GT SCH (08:28)
[2019-11-28] MEDS: MIRALAX 17 GM POWD.PACK GT SCH (08:28)
[2019-11-28] MEDS: ACIDOPHILUS/BULGARICUS CHEW TAB GT SCH ×2 (08:28→21:01)
[2019-11-28] MEDS: HYDROGEN PEROXIDE 3% 118 ML BOTTLE TP SCH ×2 (09:04→21:00)
[2019-11-28] MEDS: TWOCAL HN 1,000 ML LIQUID GT PRN (17:39)
[2019-11-28 20:24] VITALS: BP 105/67
[2019-11-28] MEDS: MAGNESIUM COMPLEX GT SCH (21:02)
[2019-11-28] MEDS: MELATONIN 3 MG TABLET GT SCH (21:02)
[2019-11-28] MEDS: CRANBERRY 500 MG GT SCH (21:02)
[2019-11-28] MEDS: NUTRISOURCE FIBER 4 GM PACKET GT SCH (21:07)
[2019-11-28] MEDS: ASCORBIC ACID 500 MG TABLET GT SCH (21:07)
[2019-11-28] MEDS: PROTEIN SUPPLEMENT (PROSTAT) 30 ML LIQUID GT SCH (21:07)
[2019-11-28] MEDS: RIVAROXABAN 15 MG TABLET GT SCH (21:09)
[2019-11-29] MEDS: METOCLOPRAMIDE HCL 10 MG/10 ML UDC GT SCH ×4 (00:24→17:25)
[2019-11-29] MEDS: MULTIVIT, IRON, MIN NO. 8, FA TABLET GT SCH (05:57)
[2019-11-29] MEDS: OMEPRAZOLE 20 MG CAPSULE.DR GT SCH (05:57)
[2019-11-29] MEDS: BACLOFEN 20 MG TABLET GT SCH ×3 (05:57→21:10)
[2019-11-29] MEDS: DOCUSATE SODIUM 100 MG/10 ML LIQUID UDC GT SCH (08:28)
[2019-11-29] MEDS: levETIRAcetam 500 MG/5 ML LIQUID UDC GT SCH ×2 (08:28→21:07)
[2019-11-29] MEDS: ACIDOPHILUS/BULGARICUS CHEW TAB GT SCH ×2 (08:28→21:07)
[2019-11-29] MEDS: MIRALAX 17 GM POWD.PACK GT SCH (08:29)
[2019-11-29] MEDS: COD LIVER OIL/ZINC OXIDE OINT 113 GM TUBE TP SCH ×2 (08:29→21:10)
[2019-11-29] MEDS: POTASSIUM CHLORIDE 40 MEQ/30 ML LIQUID UDC GT SCH (08:29)
[2019-11-29] MEDS: HYDROGEN PEROXIDE 3% 118 ML BOTTLE TP SCH ×2 (09:00→19:16)
[2019-11-29 10:44] VITALS: BP 102/63
--- NOTE | 2019-11-29 12:45 | NUR ---
Face Time was done with pt's mother at this time.
[2019-11-29] MEDS: MELATONIN 3 MG TABLET GT SCH (21:07)
[2019-11-29] MEDS: MAGNESIUM COMPLEX GT SCH (21:08)
[2019-11-29] MEDS: NUTRISOURCE FIBER 4 GM PACKET GT SCH (21:08)
[2019-11-29] MEDS: CRANBERRY 500 MG GT SCH (21:08)
[2019-11-29] MEDS: PROTEIN SUPPLEMENT (PROSTAT) 30 ML LIQUID GT SCH (21:09)
[2019-11-29] MEDS: ASCORBIC ACID 500 MG TABLET GT SCH (21:09)
[2019-11-29] MEDS: RIVAROXABAN 15 MG TABLET GT SCH (21:10)
[2019-11-29 22:26] VITALS: BP 104/69
[2019-11-30] MEDS: METOCLOPRAMIDE HCL 10 MG/10 ML UDC GT SCH ×4 (00:12→17:26)
[2019-11-30] MEDS: MULTIVIT, IRON, MIN NO. 8, FA TABLET GT SCH (06:11)
[2019-11-30] MEDS: BACLOFEN 20 MG TABLET GT SCH ×3 (06:11→21:04)
[2019-11-30] MEDS: OMEPRAZOLE 20 MG CAPSULE.DR GT SCH (06:11)
[2019-11-30 08:00] VITALS: BP_SYST 90; BP_DIAS 52; BP_DIAS 54
[2019-11-30] MEDS: levETIRAcetam 500 MG/5 ML LIQUID UDC GT SCH ×2 (08:15→21:01)
[2019-11-30] MEDS: DOCUSATE SODIUM 100 MG/10 ML LIQUID UDC GT SCH (08:15)
[2019-11-30] MEDS: COD LIVER OIL/ZINC OXIDE OINT 113 GM TUBE TP SCH ×2 (08:15→21:04)
[2019-11-30] MEDS: MIRALAX 17 GM POWD.PACK GT SCH (08:15)
[2019-11-30] MEDS: POTASSIUM CHLORIDE 40 MEQ/30 ML LIQUID UDC GT SCH (08:15)
[2019-11-30] MEDS: ACIDOPHILUS/BULGARICUS CHEW TAB GT SCH ×2 (08:15→21:01)
[2019-11-30 08:16] VITALS: BP 90/54
[2019-11-30] MEDS: HYDROGEN PEROXIDE 3% 118 ML BOTTLE TP SCH ×2 (09:50→18:36)
[2019-11-30 09:51] VITALS: BP 104/53
[2019-11-30] MEDS: TWOCAL HN 1,000 ML LIQUID GT PRN (10:30)
[2019-11-30 20:00] VITALS: BP 100/54
[2019-11-30] MEDS: CRANBERRY 500 MG GT SCH (21:02)
[2019-11-30] MEDS: MELATONIN 3 MG TABLET GT SCH (21:02)
[2019-11-30] MEDS: ASCORBIC ACID 500 MG TABLET GT SCH (21:03)
[2019-11-30] MEDS: MAGNESIUM COMPLEX GT SCH (21:03)
[2019-11-30] MEDS: NUTRISOURCE FIBER 4 GM PACKET GT SCH (21:03)
[2019-11-30] MEDS: PROTEIN SUPPLEMENT (PROSTAT) 30 ML LIQUID GT SCH (21:03)
[2019-11-30] MEDS: RIVAROXABAN 15 MG TABLET GT SCH (21:04)
[2019-12-01] MEDS: METOCLOPRAMIDE HCL 10 MG/10 ML UDC GT SCH ×4 (00:12→17:15)
[2019-12-01] MEDS: MULTIVIT, IRON, MIN NO. 8, FA TABLET GT SCH (05:57)
[2019-12-01] MEDS: OMEPRAZOLE 20 MG CAPSULE.DR GT SCH (05:57)
[2019-12-01] MEDS: BACLOFEN 20 MG TABLET GT SCH ×3 (05:57→21:24)
[2019-12-01] MEDS: levETIRAcetam 500 MG/5 ML LIQUID UDC GT SCH ×2 (08:13→21:18)
[2019-12-01] MEDS: DOCUSATE SODIUM 100 MG/10 ML LIQUID UDC GT SCH (08:13)
[2019-12-01] MEDS: ACIDOPHILUS/BULGARICUS CHEW TAB GT SCH ×2 (08:13→21:17)
[2019-12-01] MEDS: MIRALAX 17 GM POWD.PACK GT SCH (08:14)
[2019-12-01] MEDS: COD LIVER OIL/ZINC OXIDE OINT 113 GM TUBE TP SCH ×2 (08:15→21:23)
[2019-12-01] MEDS: POTASSIUM CHLORIDE 40 MEQ/30 ML LIQUID UDC GT SCH (08:15)
[2019-12-01] MEDS: HYDROGEN PEROXIDE 3% 118 ML BOTTLE TP SCH ×2 (09:35→21:23)
--- NOTE | 2019-12-01 14:00 | NUR ---
provided facetime for patient with sister. patient stable will continue to monitor.
[2019-12-01] MEDS: MELATONIN 3 MG TABLET GT SCH (21:18)
[2019-12-01] MEDS: CRANBERRY 500 MG GT SCH (21:18)
[2019-12-01] MEDS: MAGNESIUM COMPLEX GT SCH (21:19)
[2019-12-01] MEDS: PROTEIN SUPPLEMENT (PROSTAT) 30 ML LIQUID GT SCH (21:20)
[2019-12-01] MEDS: NUTRISOURCE FIBER 4 GM PACKET GT SCH (21:20)
[2019-12-01] MEDS: ASCORBIC ACID 500 MG TABLET GT SCH (21:21)
[2019-12-01] MEDS: RIVAROXABAN 15 MG TABLET GT SCH (21:22)
[2019-12-01 22:02] VITALS: BP 111/65
[2019-12-02] MEDS: METOCLOPRAMIDE HCL 10 MG/10 ML UDC GT SCH ×5 (00:02→23:04)
[2019-12-02] MEDS: TWOCAL HN 1,000 ML LIQUID GT PRN (01:25)
[2019-12-02] MEDS: BACLOFEN 20 MG TABLET GT SCH ×3 (05:43→21:21)
[2019-12-02] MEDS: OMEPRAZOLE 20 MG CAPSULE.DR GT SCH (05:44)
[2019-12-02] MEDS: MULTIVIT, IRON, MIN NO. 8, FA TABLET GT SCH (05:44)
[2019-12-02 08:03] VITALS: BP 93/60
[2019-12-02] MEDS: DOCUSATE SODIUM 100 MG/10 ML LIQUID UDC GT SCH (08:09)
[2019-12-02] MEDS: levETIRAcetam 500 MG/5 ML LIQUID UDC GT SCH ×2 (08:09→21:21)
[2019-12-02] MEDS: MIRALAX 17 GM POWD.PACK GT SCH (08:09)
[2019-12-02] MEDS: COD LIVER OIL/ZINC OXIDE OINT 113 GM TUBE TP SCH ×2 (08:09→21:21)
[2019-12-02] MEDS: POTASSIUM CHLORIDE 40 MEQ/30 ML LIQUID UDC GT SCH (08:09)
[2019-12-02] MEDS: ACIDOPHILUS/BULGARICUS CHEW TAB GT SCH ×2 (08:09→21:21)
[2019-12-02] MEDS: HYDROGEN PEROXIDE 3% 118 ML BOTTLE TP SCH ×2 (09:00→21:00)
--- NOTE | 2019-12-02 18:24 | NUR ---
provided facetime for patient with mother, patient stable will continue to monitor.
[2019-12-02] MEDS: POLYVINYL ALCOHOL OPHT DROPS 15 ML BOTTLE EACHEYE PRN (18:26)
[2019-12-02] MEDS: MAGNESIUM COMPLEX GT SCH (21:21)
[2019-12-02] MEDS: ASCORBIC ACID 500 MG TABLET GT SCH (21:21)
[2019-12-02] MEDS: MELATONIN 3 MG TABLET GT SCH (21:21)
[2019-12-02] MEDS: PROTEIN SUPPLEMENT (PROSTAT) 30 ML LIQUID GT SCH (21:21)
[2019-12-02] MEDS: NUTRISOURCE FIBER 4 GM PACKET GT SCH (21:21)
[2019-12-02] MEDS: CRANBERRY 500 MG GT SCH (21:21)
[2019-12-02] MEDS: RIVAROXABAN 15 MG TABLET GT SCH (21:43)
[2019-12-02 22:47] VITALS: BP 104/63
[2019-12-03] MEDS: OMEPRAZOLE 20 MG CAPSULE.DR GT SCH (05:24)
[2019-12-03] MEDS: BACLOFEN 20 MG TABLET GT SCH ×3 (05:24→22:30)
[2019-12-03] MEDS: MULTIVIT, IRON, MIN NO. 8, FA TABLET GT SCH (05:24)
[2019-12-03] MEDS: METOCLOPRAMIDE HCL 10 MG/10 ML UDC GT SCH ×3 (05:24→17:18)
--- NOTE | 2019-12-03 06:42 | NUR ---
No anxiety noted throughout shift. Continue to monitor.
[2019-12-03 08:03] VITALS: BP 91/64
[2019-12-03] MEDS: ACIDOPHILUS/BULGARICUS CHEW TAB GT SCH ×2 (08:29→20:39)
[2019-12-03] MEDS: levETIRAcetam 500 MG/5 ML LIQUID UDC GT SCH ×2 (08:29→20:39)
[2019-12-03] MEDS: MIRALAX 17 GM POWD.PACK GT SCH (08:30)
[2019-12-03] MEDS: POTASSIUM CHLORIDE 40 MEQ/30 ML LIQUID UDC GT SCH (08:32)
[2019-12-03] MEDS: HYDROGEN PEROXIDE 3% 118 ML BOTTLE TP SCH ×2 (08:32→20:51)
[2019-12-03] MEDS: COD LIVER OIL/ZINC OXIDE OINT 113 GM TUBE TP SCH ×2 (08:32→20:43)
[2019-12-03] MEDS: DOCUSATE SODIUM 100 MG/10 ML LIQUID UDC GT SCH (08:37)
[2019-12-03 19:50] VITALS: BP 101/57
[2019-12-03] MEDS: MELATONIN 3 MG TABLET GT SCH (20:39)
[2019-12-03] MEDS: CRANBERRY 500 MG GT SCH (20:39)
[2019-12-03] MEDS: NUTRISOURCE FIBER 4 GM PACKET GT SCH (20:40)
[2019-12-03] MEDS: MAGNESIUM COMPLEX GT SCH (20:40)
[2019-12-03] MEDS: PROTEIN SUPPLEMENT (PROSTAT) 30 ML LIQUID GT SCH (20:40)
[2019-12-03] MEDS: RIVAROXABAN 15 MG TABLET GT SCH (20:41)
[2019-12-03] MEDS: ASCORBIC ACID 500 MG TABLET GT SCH (20:43)
[2019-12-04] MEDS: METOCLOPRAMIDE HCL 10 MG/10 ML UDC GT SCH ×4 (00:47→17:49)
[2019-12-04] MEDS: OMEPRAZOLE 20 MG CAPSULE.DR GT SCH (05:41)
[2019-12-04] MEDS: BACLOFEN 20 MG TABLET GT SCH ×3 (05:41→22:16)
[2019-12-04] MEDS: MULTIVIT, IRON, MIN NO. 8, FA TABLET GT SCH (05:41)
[2019-12-04] MEDS: TWOCAL HN 1,000 ML LIQUID GT PRN (06:57)
[2019-12-04 08:00] VITALS: BP 99/61
[2019-12-04] MEDS: POTASSIUM CHLORIDE 40 MEQ/30 ML LIQUID UDC GT SCH (08:24)
[2019-12-04] MEDS: ACIDOPHILUS/BULGARICUS CHEW TAB GT SCH ×2 (08:24→20:35)
[2019-12-04] MEDS: levETIRAcetam 500 MG/5 ML LIQUID UDC GT SCH ×2 (08:24→20:44)
[2019-12-04] MEDS: MIRALAX 17 GM POWD.PACK GT SCH (08:24)
[2019-12-04] MEDS: DOCUSATE SODIUM 100 MG/10 ML LIQUID UDC GT SCH (08:24)
[2019-12-04] MEDS: COD LIVER OIL/ZINC OXIDE OINT 113 GM TUBE TP SCH ×2 (08:24→20:45)
[2019-12-04] MEDS: HYDROGEN PEROXIDE 3% 118 ML BOTTLE TP SCH ×2 (08:40→21:37)
--- NOTE | 2019-12-04 13:22 | NUR ---
Seen by Lu GENAO, no new order given at this time.
--- NOTE | 2019-12-04 16:44 | NUR ---
Provided face time for the pt and her mother with no complaints noted. Pt. remains comfortable and with signs of distress noted.
[2019-12-04 20:28] VITALS: BP 101/64
[2019-12-04] MEDS: RIVAROXABAN 15 MG TABLET GT SCH (20:40)
[2019-12-04] MEDS: MELATONIN 3 MG TABLET GT SCH (20:45)
[2019-12-04] MEDS: MAGNESIUM COMPLEX GT SCH (20:45)
[2019-12-04] MEDS: PROTEIN SUPPLEMENT (PROSTAT) 30 ML LIQUID GT SCH (20:45)
[2019-12-04] MEDS: ASCORBIC ACID 500 MG TABLET GT SCH (20:45)
[2019-12-04] MEDS: NUTRISOURCE FIBER 4 GM PACKET GT SCH (20:45)
[2019-12-04] MEDS: CRANBERRY 500 MG GT SCH (20:46)
[2019-12-05] MEDS: METOCLOPRAMIDE HCL 10 MG/10 ML UDC GT SCH ×4 (00:13→18:11)
[2019-12-05] MEDS: MULTIVIT, IRON, MIN NO. 8, FA TABLET GT SCH (05:45)
[2019-12-05] MEDS: BACLOFEN 20 MG TABLET GT SCH ×3 (05:45→22:37)
[2019-12-05] MEDS: OMEPRAZOLE 20 MG CAPSULE.DR GT SCH (05:45)
[2019-12-05] MEDS: ACIDOPHILUS/BULGARICUS CHEW TAB GT SCH ×2 (08:54→20:38)
[2019-12-05] MEDS: levETIRAcetam 500 MG/5 ML LIQUID UDC GT SCH ×2 (08:54→20:38)
[2019-12-05] MEDS: POTASSIUM CHLORIDE 40 MEQ/30 ML LIQUID UDC GT SCH (08:54)
[2019-12-05] MEDS: MIRALAX 17 GM POWD.PACK GT SCH (08:54)
[2019-12-05] MEDS: COD LIVER OIL/ZINC OXIDE OINT 113 GM TUBE TP SCH ×2 (08:54→20:40)
[2019-12-05] MEDS: DOCUSATE SODIUM 100 MG/10 ML LIQUID UDC GT SCH (08:54)
[2019-12-05] MEDS: HYDROGEN PEROXIDE 3% 118 ML BOTTLE TP SCH ×2 (09:00→21:40)
[2019-12-05 09:27] VITALS: BP 93/54
[2019-12-05 20:14] VITALS: BP 103/57
[2019-12-05] MEDS: MELATONIN 3 MG TABLET GT SCH (20:38)
[2019-12-05] MEDS: CRANBERRY 500 MG GT SCH (20:38)
[2019-12-05] MEDS: MAGNESIUM COMPLEX GT SCH (20:38)
[2019-12-05] MEDS: PROTEIN SUPPLEMENT (PROSTAT) 30 ML LIQUID GT SCH (20:40)
[2019-12-05] MEDS: ASCORBIC ACID 500 MG TABLET GT SCH (20:40)
[2019-12-05] MEDS: NUTRISOURCE FIBER 4 GM PACKET GT SCH (20:40)
[2019-12-05] MEDS: RIVAROXABAN 15 MG TABLET GT SCH (20:44)
[2019-12-06] MEDS: METOCLOPRAMIDE HCL 10 MG/10 ML UDC GT SCH ×4 (00:38→17:19)
[2019-12-06] MEDS: BACLOFEN 20 MG TABLET GT SCH ×3 (05:22→22:00)
[2019-12-06] MEDS: MULTIVIT, IRON, MIN NO. 8, FA TABLET GT SCH (05:22)
[2019-12-06] MEDS: OMEPRAZOLE 20 MG CAPSULE.DR GT SCH (05:22)
[2019-12-06 08:00] VITALS: BP 120/64
[2019-12-06] MEDS: MIRALAX 17 GM POWD.PACK GT SCH (08:25)
[2019-12-06] MEDS: COD LIVER OIL/ZINC OXIDE OINT 113 GM TUBE TP SCH ×2 (08:25→20:46)
[2019-12-06] MEDS: ACIDOPHILUS/BULGARICUS CHEW TAB GT SCH ×2 (08:25→20:43)
[2019-12-06] MEDS: levETIRAcetam 500 MG/5 ML LIQUID UDC GT SCH ×2 (08:25→20:43)
[2019-12-06] MEDS: DOCUSATE SODIUM 100 MG/10 ML LIQUID UDC GT SCH (08:25)
[2019-12-06] MEDS: POTASSIUM CHLORIDE 40 MEQ/30 ML LIQUID UDC GT SCH (08:25)
[2019-12-06] MEDS: HYDROGEN PEROXIDE 3% 118 ML BOTTLE TP SCH ×2 (09:03→21:00)
--- NOTE | 2019-12-06 15:20 | NUR ---
Provided face time to pt. and her father with no signs of pain noted. Pt remains comfortable with no signs of any pain.
[2019-12-06 20:00] VITALS: BP 111/51
[2019-12-06] MEDS: MELATONIN 3 MG TABLET GT SCH (20:43)
[2019-12-06] MEDS: CRANBERRY 500 MG GT SCH (20:44)
[2019-12-06] MEDS: MAGNESIUM COMPLEX GT SCH (20:45)
[2019-12-06] MEDS: ASCORBIC ACID 500 MG TABLET GT SCH (20:45)
[2019-12-06] MEDS: PROTEIN SUPPLEMENT (PROSTAT) 30 ML LIQUID GT SCH (20:45)
[2019-12-06] MEDS: NUTRISOURCE FIBER 4 GM PACKET GT SCH (20:45)
[2019-12-06] MEDS: RIVAROXABAN 15 MG TABLET GT SCH (20:55)
[2019-12-07] MEDS: OMEPRAZOLE 20 MG CAPSULE.DR GT SCH (05:26)
[2019-12-07] MEDS: BACLOFEN 20 MG TABLET GT SCH ×3 (05:26→21:20)
[2019-12-07] MEDS: METOCLOPRAMIDE HCL 10 MG/10 ML UDC GT SCH ×4 (05:26→17:02)
[2019-12-07] MEDS: MULTIVIT, IRON, MIN NO. 8, FA TABLET GT SCH (05:26)
[2019-12-07 07:51] VITALS: BP 109/59
[2019-12-07] MEDS: DOCUSATE SODIUM 100 MG/10 ML LIQUID UDC GT SCH (08:34)
[2019-12-07] MEDS: MIRALAX 17 GM POWD.PACK GT SCH (08:34)
[2019-12-07] MEDS: POTASSIUM CHLORIDE 40 MEQ/30 ML LIQUID UDC GT SCH (08:34)
[2019-12-07] MEDS: levETIRAcetam 500 MG/5 ML LIQUID UDC GT SCH ×2 (08:34→21:20)
[2019-12-07] MEDS: ACIDOPHILUS/BULGARICUS CHEW TAB GT SCH ×2 (08:34→21:20)
[2019-12-07] MEDS: COD LIVER OIL/ZINC OXIDE OINT 113 GM TUBE TP SCH ×2 (08:34→21:20)
[2019-12-07] MEDS: HYDROGEN PEROXIDE 3% 118 ML BOTTLE TP SCH ×2 (09:46→21:38)
--- NOTE | 2019-12-07 13:00 | NUR ---
Resident provided with face time with her mother and her sister with no complaints noted.Pt remains with no signs of pain or discomfort noted
--- NOTE | 2019-12-07 14:00 | NUR ---
Resident provided with face time with her father since it's her birthday with no complaints. Pt. remains comfortable with no signs of pain noted.
--- NOTE | 2019-12-07 15:35 | NUR ---
SW notified patient's sister Jeanne via email that the next IDT meeting for the patient is scheduled for 12/12/19 at 11am, and asked Jeanne to let this SW know if Jeanne or patient's parents would like to participate in the meeting thru speaker phone.
--- NOTE | 2019-12-07 17:30 | NUR ---
Provided face time for pt and her family with no complaints,pt remains comfortable and with no signs of distress noted.
[2019-12-07 20:00] VITALS: BP 106/67
[2019-12-07] MEDS: PROTEIN SUPPLEMENT (PROSTAT) 30 ML LIQUID GT SCH (21:20)
[2019-12-07] MEDS: MAGNESIUM COMPLEX GT SCH (21:20)
[2019-12-07] MEDS: ASCORBIC ACID 500 MG TABLET GT SCH (21:20)
[2019-12-07] MEDS: MELATONIN 3 MG TABLET GT SCH (21:20)
[2019-12-07] MEDS: CRANBERRY 500 MG GT SCH (21:20)
[2019-12-07] MEDS: NUTRISOURCE FIBER 4 GM PACKET GT SCH (21:20)
[2019-12-07] MEDS: RIVAROXABAN 15 MG TABLET GT SCH (21:21)
[2019-12-08] MEDS: METOCLOPRAMIDE HCL 10 MG/10 ML UDC GT SCH ×4 (00:19→17:13)
[2019-12-08] MEDS: MULTIVIT, IRON, MIN NO. 8, FA TABLET GT SCH (05:34)
[2019-12-08] MEDS: OMEPRAZOLE 20 MG CAPSULE.DR GT SCH (05:34)
[2019-12-08] MEDS: BACLOFEN 20 MG TABLET GT SCH ×3 (05:34→22:07)
[2019-12-08 08:05] VITALS: BP 130/80
[2019-12-08] MEDS: ACIDOPHILUS/BULGARICUS CHEW TAB GT SCH ×2 (08:32→21:00)
[2019-12-08] MEDS: DOCUSATE SODIUM 100 MG/10 ML LIQUID UDC GT SCH (08:33)
[2019-12-08] MEDS: COD LIVER OIL/ZINC OXIDE OINT 113 GM TUBE TP SCH ×2 (08:34→21:00)
[2019-12-08] MEDS: POTASSIUM CHLORIDE 40 MEQ/30 ML LIQUID UDC GT SCH (08:34)
[2019-12-08] MEDS: MIRALAX 17 GM POWD.PACK GT SCH (08:34)
[2019-12-08] MEDS: levETIRAcetam 500 MG/5 ML LIQUID UDC GT SCH ×2 (08:34→21:00)
[2019-12-08] MEDS: HYDROGEN PEROXIDE 3% 118 ML BOTTLE TP SCH ×2 (10:33→21:46)
[2019-12-08 20:00] VITALS: BP 125/78
--- NOTE | 2019-12-08 20:30 | NUR ---
Patient had a face time with her sister lauri. Addendum: 12/08/19 at 2127 by MARCELO VALERIO RN No complaints and patient is comfortable.
[2019-12-08] MEDS: MAGNESIUM COMPLEX GT SCH (21:00)
[2019-12-08] MEDS: CRANBERRY 500 MG GT SCH (21:00)
[2019-12-08] MEDS: MELATONIN 3 MG TABLET GT SCH (21:00)
[2019-12-08] MEDS: RIVAROXABAN 15 MG TABLET GT SCH (21:00)
[2019-12-08] MEDS: ASCORBIC ACID 500 MG TABLET GT SCH (21:00)
[2019-12-08] MEDS: NUTRISOURCE FIBER 4 GM PACKET GT SCH (21:00)
[2019-12-08] MEDS: PROTEIN SUPPLEMENT (PROSTAT) 30 ML LIQUID GT SCH (21:00)
[2019-12-09] MEDS: METOCLOPRAMIDE HCL 10 MG/10 ML UDC GT SCH ×4 (05:19→17:56)
[2019-12-09] MEDS: OMEPRAZOLE 20 MG CAPSULE.DR GT SCH (05:19)
[2019-12-09] MEDS: MULTIVIT, IRON, MIN NO. 8, FA TABLET GT SCH (05:19)
[2019-12-09] MEDS: BACLOFEN 20 MG TABLET GT SCH ×3 (05:19→21:39)
[2019-12-09 08:06] VITALS: BP 126/90
[2019-12-09] MEDS: levETIRAcetam 500 MG/5 ML LIQUID UDC GT SCH ×2 (08:33→21:38)
[2019-12-09] MEDS: DOCUSATE SODIUM 100 MG/10 ML LIQUID UDC GT SCH (08:33)
[2019-12-09] MEDS: ACIDOPHILUS/BULGARICUS CHEW TAB GT SCH ×2 (08:33→21:38)
[2019-12-09] MEDS: POTASSIUM CHLORIDE 40 MEQ/30 ML LIQUID UDC GT SCH (08:34)
[2019-12-09] MEDS: MIRALAX 17 GM POWD.PACK GT SCH (08:34)
[2019-12-09] MEDS: COD LIVER OIL/ZINC OXIDE OINT 113 GM TUBE TP SCH ×2 (08:35→21:39)
[2019-12-09] MEDS: HYDROGEN PEROXIDE 3% 118 ML BOTTLE TP SCH ×2 (08:41→21:24)
[2019-12-09 20:00] VITALS: BP 118/75
[2019-12-09] MEDS: CRANBERRY 500 MG GT SCH (21:38)
[2019-12-09] MEDS: MELATONIN 3 MG TABLET GT SCH (21:38)
[2019-12-09] MEDS: MAGNESIUM COMPLEX GT SCH (21:38)
[2019-12-09] MEDS: NUTRISOURCE FIBER 4 GM PACKET GT SCH (21:38)
[2019-12-09] MEDS: PROTEIN SUPPLEMENT (PROSTAT) 30 ML LIQUID GT SCH (21:39)
[2019-12-09] MEDS: ASCORBIC ACID 500 MG TABLET GT SCH (21:39)
[2019-12-09] MEDS: RIVAROXABAN 15 MG TABLET GT SCH (21:54)
[2019-12-10] MEDS: METOCLOPRAMIDE HCL 10 MG/10 ML UDC GT SCH ×4 (00:35→17:27)
[2019-12-10] MEDS: OMEPRAZOLE 20 MG CAPSULE.DR GT SCH (05:09)
[2019-12-10] MEDS: BACLOFEN 20 MG TABLET GT SCH ×3 (05:09→21:25)
[2019-12-10] MEDS: MULTIVIT, IRON, MIN NO. 8, FA TABLET GT SCH (05:10)
[2019-12-10] MEDS: HYDROGEN PEROXIDE 3% 118 ML BOTTLE TP SCH ×2 (07:50→21:08)
[2019-12-10 08:06] VITALS: BP 121/86
[2019-12-10] MEDS: DOCUSATE SODIUM 100 MG/10 ML LIQUID UDC GT SCH (08:24)
[2019-12-10] MEDS: COD LIVER OIL/ZINC OXIDE OINT 113 GM TUBE TP SCH ×2 (08:24→21:25)
[2019-12-10] MEDS: POTASSIUM CHLORIDE 40 MEQ/30 ML LIQUID UDC GT SCH (08:24)
[2019-12-10] MEDS: ACIDOPHILUS/BULGARICUS CHEW TAB GT SCH ×2 (08:24→21:22)
[2019-12-10] MEDS: MIRALAX 17 GM POWD.PACK GT SCH (08:24)
[2019-12-10] MEDS: levETIRAcetam 500 MG/5 ML LIQUID UDC GT SCH ×2 (08:24→21:22)
--- NOTE | 2019-12-10 14:00 | NUR ---
Provided facet time to pt. and her father with no problems noted. Kept pt. clean and comfortable with sign of pain or discomfort noted.
[2019-12-10 20:54] VITALS: BP 99/62
[2019-12-10] MEDS: RIVAROXABAN 15 MG TABLET GT SCH (21:21)
[2019-12-10] MEDS: MELATONIN 3 MG TABLET GT SCH (21:22)
[2019-12-10] MEDS: CRANBERRY 500 MG GT SCH (21:23)
[2019-12-10] MEDS: MAGNESIUM COMPLEX GT SCH (21:23)
[2019-12-10] MEDS: ASCORBIC ACID 500 MG TABLET GT SCH (21:25)
[2019-12-10] MEDS: PROTEIN SUPPLEMENT (PROSTAT) 30 ML LIQUID GT SCH (21:25)
[2019-12-10] MEDS: NUTRISOURCE FIBER 4 GM PACKET GT SCH (21:25)
[2019-12-11] MEDS: MULTIVIT, IRON, MIN NO. 8, FA TABLET GT SCH (05:08)
[2019-12-11] MEDS: METOCLOPRAMIDE HCL 10 MG/10 ML UDC GT SCH ×4 (05:08→17:55)
[2019-12-11] MEDS: BACLOFEN 20 MG TABLET GT SCH ×3 (05:08→21:59)
[2019-12-11] MEDS: OMEPRAZOLE 20 MG CAPSULE.DR GT SCH (05:08)
[2019-12-11 08:03] VITALS: BP 100/65
[2019-12-11] MEDS: ACIDOPHILUS/BULGARICUS CHEW TAB GT SCH ×2 (08:17→20:46)
[2019-12-11] MEDS: DOCUSATE SODIUM 100 MG/10 ML LIQUID UDC GT SCH (08:17)
[2019-12-11] MEDS: MIRALAX 17 GM POWD.PACK GT SCH (08:17)
[2019-12-11] MEDS: levETIRAcetam 500 MG/5 ML LIQUID UDC GT SCH ×2 (08:17→20:46)
[2019-12-11] MEDS: COD LIVER OIL/ZINC OXIDE OINT 113 GM TUBE TP SCH ×2 (08:18→20:48)
[2019-12-11] MEDS: POTASSIUM CHLORIDE 40 MEQ/30 ML LIQUID UDC GT SCH (08:18)
[2019-12-11] MEDS: HYDROGEN PEROXIDE 3% 118 ML BOTTLE TP SCH ×2 (09:23→20:18)
[2019-12-11 20:44] VITALS: BP 123/69
[2019-12-11] MEDS: MELATONIN 3 MG TABLET GT SCH (20:46)
[2019-12-11] MEDS: ASCORBIC ACID 500 MG TABLET GT SCH (20:48)
[2019-12-11] MEDS: NUTRISOURCE FIBER 4 GM PACKET GT SCH (20:48)
[2019-12-11] MEDS: MAGNESIUM COMPLEX GT SCH (20:48)
[2019-12-11] MEDS: CRANBERRY 500 MG GT SCH (20:48)
[2019-12-11] MEDS: PROTEIN SUPPLEMENT (PROSTAT) 30 ML LIQUID GT SCH (20:48)
[2019-12-11] MEDS: RIVAROXABAN 15 MG TABLET GT SCH (20:51)
[2019-12-12] MEDS: METOCLOPRAMIDE HCL 10 MG/10 ML UDC GT SCH ×4 (00:05→17:10)
[2019-12-12] MEDS: TWOCAL HN 1,000 ML LIQUID GT PRN (01:35)
[2019-12-12] MEDS: BACLOFEN 20 MG TABLET GT SCH ×3 (05:22→21:34)
[2019-12-12] MEDS: MULTIVIT, IRON, MIN NO. 8, FA TABLET GT SCH (05:22)
[2019-12-12] MEDS: OMEPRAZOLE 20 MG CAPSULE.DR GT SCH (05:22)
[2019-12-12 07:30] VITALS: BP 119/67
[2019-12-12] MEDS: ACIDOPHILUS/BULGARICUS CHEW TAB GT SCH ×2 (08:38→20:31)
[2019-12-12] MEDS: DOCUSATE SODIUM 100 MG/10 ML LIQUID UDC GT SCH (08:38)
[2019-12-12] MEDS: levETIRAcetam 500 MG/5 ML LIQUID UDC GT SCH ×2 (08:39→20:31)
[2019-12-12] MEDS: MIRALAX 17 GM POWD.PACK GT SCH (08:39)
[2019-12-12] MEDS: POTASSIUM CHLORIDE 40 MEQ/30 ML LIQUID UDC GT SCH (08:40)
[2019-12-12] MEDS: COD LIVER OIL/ZINC OXIDE OINT 113 GM TUBE TP SCH ×2 (08:40→20:34)
[2019-12-12] MEDS: HYDROGEN PEROXIDE 3% 118 ML BOTTLE TP SCH ×2 (09:00→20:41)
--- NOTE | 2019-12-12 10:34 | NUR ---
ISAÍAS received an email last night from patient's sister Jeanne, in response to this SW's email regarding the IDT meeting scheduled for today. In this email, Jeanne stated that she would like to participate in the IDT meeting via speaker phone. ISAÍAS responded to Jeanne asking her to be available between 11am-12pm in order to receive the call when ISAÍAS calls Jeanne during the IDT meeting today.
--- NOTE | 2019-12-12 12:10 | NUR ---
INTERDISCIPLINARY PLAN OF CARE CONFERENCE was held today. Patient's sister Jeanne was called twice (at 11:20am and 11:50am) during the meeting in order for Jeanne to participate thru speaker phone, but both times Jeanne's phone went directly to Hedvigil. Dr. Cartagena and the Interdisciplinary Team reviewed the current plan of care in detail. RN reported on patient's medical condition. No major changes in condition were reported. See RN IDT conference notes. PT reported that patient continues to receive physical therapy 5 x week. See all disciplines IDT notes and physician's progress notes for additional details.
--- NOTE | 2019-12-12 12:20 | NUR ---
Patient's sister Jeanne called the nurses station asking to participate in the IDT meeting. NANDINI Cordero spoke to her explaining that the meeting was held from 06-20, and that it had already finished. Per NANDINI Cordero, Jeanne was demanding for the team to redo the meeting so she could participate. At this point, the call was transferred to this SW. This SW explained to Jeanne that the meetings are from -12, and that had informed Jeanne via email to be available between the hours of 11-12 in order to receive the phone call. Jeanne explained that she was working and asked if the meeting could be held again. SW explained that the meeting was over and that Dr. Cartagena and most of the IDT team had already left the unit to tend to their other duties. Jeanne asked when she could speak with the doctor, and SW suggested for Jeanne to coordinate with the nurse who can provide Jeanne with an update from the meeting, and could also assist with coordinating a time for Jeanne to speak with the doctor. Jeanne expressed agreement. Jeanne then asked when the visitation restrictions were going to be lifted, and this SW explained to Jeanne that the visitation restrictions were based on mandates from [facility] and the CDC, and that until the facility hears otherwise from [facility] and the CDC, that the restrictions would have to remain in place in order to ensure the safety and well-being of the patients and staff. Jeanne wanted to discuss the possibility of exceptions being made for visitations, and this SW suggested for Jeanne to speak with Clinical Coordinator Harmeet Sampson. Jeanne then asked to speak with NANDINI Pemberton again, and this phone call was transferred back to NANDINI Cordero.
--- NOTE | 2019-12-12 13:00 | NUR ---
FT DONE WITH PT'S SISTER.
--- NOTE | 2019-12-12 13:15 | NUR ---
Pharmacy Update from Today's 12/12/19 IDT Meeting: VS: Temp 98.1 BP 119/67 HR 59 LABS: (from 08/30/19, no new labs) Wbc 9.4 H/H 13.9/42.5 Plt 243 Na 142 K 4.4 Cl 105 CO2 31 BUN/SCr 17/0.6 BS 87 ca 9.3 phos 4.4 Mg 2.1 MEDICATION USE REVIEWED: > Pt not on any anti-psych medications > On Keppra 500mg q12h, last calculated CrCl was >100 ml/min. Renal fxn ok for current dosing. > On Xarelto 15mg daily, no bleeding noted, last plt was 243 > On KCl 20meq daily, last K 4.4 > PRN MED USAGE: (November) Tylenol for pain used x1 Artificial tears used x1 Bisacodyl used x0 Mucinex DM used x0 NEW ORDERS NOTED: > NA Pt was reviewed and discussed in depth with no medication issues noted per IDT staff. No further medication recommendations at this time, remains stable on current regimen and receives regular facetime sessions with family (d/t covid restrictions). Will continue to monitor
[2019-12-12] MEDS: CRANBERRY 500 MG GT SCH (20:31)
[2019-12-12] MEDS: MELATONIN 3 MG TABLET GT SCH (20:31)
[2019-12-12] MEDS: MAGNESIUM COMPLEX GT SCH (20:33)
[2019-12-12] MEDS: NUTRISOURCE FIBER 4 GM PACKET GT SCH (20:34)
[2019-12-12] MEDS: ASCORBIC ACID 500 MG TABLET GT SCH (20:34)
[2019-12-12] MEDS: PROTEIN SUPPLEMENT (PROSTAT) 30 ML LIQUID GT SCH (20:34)
[2019-12-12] MEDS: RIVAROXABAN 15 MG TABLET GT SCH (20:35)
[2019-12-12 20:43] VITALS: BP 109/68
[2019-12-13] MEDS: METOCLOPRAMIDE HCL 10 MG/10 ML UDC GT SCH ×5 (00:28→23:37)
[2019-12-13] MEDS: OMEPRAZOLE 20 MG CAPSULE.DR GT SCH (05:54)
[2019-12-13] MEDS: BACLOFEN 20 MG TABLET GT SCH ×3 (05:54→20:43)
[2019-12-13] MEDS: MULTIVIT, IRON, MIN NO. 8, FA TABLET GT SCH (05:54)
[2019-12-13] MEDS: ACIDOPHILUS/BULGARICUS CHEW TAB GT SCH ×2 (08:38→20:42)
[2019-12-13] MEDS: DOCUSATE SODIUM 100 MG/10 ML LIQUID UDC GT SCH (08:38)
[2019-12-13] MEDS: MIRALAX 17 GM POWD.PACK GT SCH (08:39)
[2019-12-13] MEDS: levETIRAcetam 500 MG/5 ML LIQUID UDC GT SCH ×2 (08:39→20:42)
[2019-12-13] MEDS: POTASSIUM CHLORIDE 40 MEQ/30 ML LIQUID UDC GT SCH (08:39)
[2019-12-13] MEDS: COD LIVER OIL/ZINC OXIDE OINT 113 GM TUBE TP SCH ×2 (08:40→20:42)
[2019-12-13] MEDS: HYDROGEN PEROXIDE 3% 118 ML BOTTLE TP SCH ×2 (09:00→20:42)
[2019-12-13 20:00] VITALS: BP 108/66
[2019-12-13] MEDS: NUTRISOURCE FIBER 4 GM PACKET GT SCH (20:42)
[2019-12-13] MEDS: MELATONIN 3 MG TABLET GT SCH (20:42)
[2019-12-13] MEDS: CRANBERRY 500 MG GT SCH (20:42)
[2019-12-13] MEDS: MAGNESIUM COMPLEX GT SCH (20:42)
[2019-12-13] MEDS: ASCORBIC ACID 500 MG TABLET GT SCH (20:42)
[2019-12-13] MEDS: RIVAROXABAN 15 MG TABLET GT SCH (20:46)
[2019-12-13] MEDS: PROTEIN SUPPLEMENT (PROSTAT) 30 ML LIQUID GT SCH (20:47)
[2019-12-14] MEDS: METOCLOPRAMIDE HCL 10 MG/10 ML UDC GT SCH ×4 (06:12→23:11)
[2019-12-14] MEDS: MULTIVIT, IRON, MIN NO. 8, FA TABLET GT SCH (06:12)
[2019-12-14] MEDS: BACLOFEN 20 MG TABLET GT SCH ×3 (06:12→21:00)
[2019-12-14] MEDS: OMEPRAZOLE 20 MG CAPSULE.DR GT SCH (06:12)
[2019-12-14 07:53] VITALS: BP 119/64
[2019-12-14] MEDS: POTASSIUM CHLORIDE 40 MEQ/30 ML LIQUID UDC GT SCH (08:09)
[2019-12-14] MEDS: ACIDOPHILUS/BULGARICUS CHEW TAB GT SCH ×2 (08:09→20:58)
[2019-12-14] MEDS: DOCUSATE SODIUM 100 MG/10 ML LIQUID UDC GT SCH (08:09)
[2019-12-14] MEDS: COD LIVER OIL/ZINC OXIDE OINT 113 GM TUBE TP SCH ×2 (08:09→20:59)
[2019-12-14] MEDS: levETIRAcetam 500 MG/5 ML LIQUID UDC GT SCH ×2 (08:09→20:58)
[2019-12-14] MEDS: MIRALAX 17 GM POWD.PACK GT SCH (08:09)
[2019-12-14] MEDS: TWOCAL HN 1,000 ML LIQUID GT PRN (08:10)
[2019-12-14] MEDS: HYDROGEN PEROXIDE 3% 118 ML BOTTLE TP SCH ×2 (09:00→21:35)
[2019-12-14 20:00] VITALS: BP 100/57
[2019-12-14] MEDS: MAGNESIUM COMPLEX GT SCH (20:58)
[2019-12-14] MEDS: CRANBERRY 500 MG GT SCH (20:58)
[2019-12-14] MEDS: NUTRISOURCE FIBER 4 GM PACKET GT SCH (20:58)
[2019-12-14] MEDS: MELATONIN 3 MG TABLET GT SCH (20:58)
[2019-12-14] MEDS: PROTEIN SUPPLEMENT (PROSTAT) 30 ML LIQUID GT SCH (20:58)
[2019-12-14] MEDS: ASCORBIC ACID 500 MG TABLET GT SCH (20:59)
[2019-12-14] MEDS: RIVAROXABAN 15 MG TABLET GT SCH (21:15)
[2019-12-15] MEDS: ACETAMINOPHEN 650 MG/20 ML UDC- SA PATIENTS-PAIN ONLY GT PRN (04:29)
[2019-12-15] MEDS: METOCLOPRAMIDE HCL 10 MG/10 ML UDC GT SCH ×3 (05:14→17:11)
[2019-12-15] MEDS: OMEPRAZOLE 20 MG CAPSULE.DR GT SCH (05:14)
[2019-12-15] MEDS: BACLOFEN 20 MG TABLET GT SCH ×3 (05:14→21:13)
[2019-12-15] MEDS: MULTIVIT, IRON, MIN NO. 8, FA TABLET GT SCH (05:14)
[2019-12-15 07:45] VITALS: BP 111/64
[2019-12-15] MEDS: levETIRAcetam 500 MG/5 ML LIQUID UDC GT SCH ×2 (08:04→21:12)
[2019-12-15] MEDS: MIRALAX 17 GM POWD.PACK GT SCH (08:04)
[2019-12-15] MEDS: ACIDOPHILUS/BULGARICUS CHEW TAB GT SCH ×2 (08:04→21:12)
[2019-12-15] MEDS: POTASSIUM CHLORIDE 40 MEQ/30 ML LIQUID UDC GT SCH (08:04)
[2019-12-15] MEDS: COD LIVER OIL/ZINC OXIDE OINT 113 GM TUBE TP SCH ×2 (08:04→21:13)
[2019-12-15] MEDS: DOCUSATE SODIUM 100 MG/10 ML LIQUID UDC GT SCH (08:04)
[2019-12-15] MEDS: HYDROGEN PEROXIDE 3% 118 ML BOTTLE TP SCH ×2 (08:18→21:00)
[2019-12-15] MEDS: RIVAROXABAN 15 MG TABLET GT SCH (21:00)
[2019-12-15] MEDS: MELATONIN 3 MG TABLET GT SCH (21:12)
[2019-12-15] MEDS: ASCORBIC ACID 500 MG TABLET GT SCH (21:13)
[2019-12-15] MEDS: CRANBERRY 500 MG GT SCH (21:13)
[2019-12-15] MEDS: MAGNESIUM COMPLEX GT SCH (21:13)
[2019-12-15] MEDS: NUTRISOURCE FIBER 4 GM PACKET GT SCH (21:13)
[2019-12-15] MEDS: PROTEIN SUPPLEMENT (PROSTAT) 30 ML LIQUID GT SCH (21:13)
[2019-12-15 22:05] VITALS: BP 95/63
[2019-12-16] MEDS: METOCLOPRAMIDE HCL 10 MG/10 ML UDC GT SCH ×4 (00:32→17:19)
[2019-12-16] MEDS: TWOCAL HN 1,000 ML LIQUID GT PRN (02:13)
[2019-12-16] MEDS: OMEPRAZOLE 20 MG CAPSULE.DR GT SCH (05:04)
[2019-12-16] MEDS: BACLOFEN 20 MG TABLET GT SCH ×3 (05:04→21:06)
[2019-12-16] MEDS: MULTIVIT, IRON, MIN NO. 8, FA TABLET GT SCH (05:05)
[2019-12-16 07:57] VITALS: BP 91/51
[2019-12-16] MEDS: ACIDOPHILUS/BULGARICUS CHEW TAB GT SCH ×2 (08:23→20:40)
[2019-12-16] MEDS: levETIRAcetam 500 MG/5 ML LIQUID UDC GT SCH ×2 (08:23→20:40)
[2019-12-16] MEDS: DOCUSATE SODIUM 100 MG/10 ML LIQUID UDC GT SCH (08:23)
[2019-12-16] MEDS: POTASSIUM CHLORIDE 40 MEQ/30 ML LIQUID UDC GT SCH (08:24)
[2019-12-16] MEDS: COD LIVER OIL/ZINC OXIDE OINT 113 GM TUBE TP SCH ×2 (08:24→20:44)
[2019-12-16] MEDS: MIRALAX 17 GM POWD.PACK GT SCH (08:24)
[2019-12-16] MEDS: HYDROGEN PEROXIDE 3% 118 ML BOTTLE TP SCH ×2 (09:00→19:38)
[2019-12-16] MEDS: MELATONIN 3 MG TABLET GT SCH (20:40)
[2019-12-16] MEDS: PROTEIN SUPPLEMENT (PROSTAT) 30 ML LIQUID GT SCH (20:44)
[2019-12-16] MEDS: MAGNESIUM COMPLEX GT SCH (20:44)
[2019-12-16] MEDS: NUTRISOURCE FIBER 4 GM PACKET GT SCH (20:44)
[2019-12-16] MEDS: ASCORBIC ACID 500 MG TABLET GT SCH (20:44)
[2019-12-16] MEDS: CRANBERRY 500 MG GT SCH (20:44)
[2019-12-16] MEDS: RIVAROXABAN 15 MG TABLET GT SCH (20:56)
[2019-12-16 22:31] VITALS: BP 103/65
[2019-12-17] MEDS: METOCLOPRAMIDE HCL 10 MG/10 ML UDC GT SCH ×4 (00:44→17:17)
[2019-12-17] MEDS: OMEPRAZOLE 20 MG CAPSULE.DR GT SCH (05:39)
[2019-12-17] MEDS: BACLOFEN 20 MG TABLET GT SCH ×3 (05:39→21:59)
[2019-12-17] MEDS: MULTIVIT, IRON, MIN NO. 8, FA TABLET GT SCH (05:39)
[2019-12-17 08:04] VITALS: BP 108/65
[2019-12-17] MEDS: DOCUSATE SODIUM 100 MG/10 ML LIQUID UDC GT SCH (08:40)
[2019-12-17] MEDS: levETIRAcetam 500 MG/5 ML LIQUID UDC GT SCH ×2 (08:40→21:58)
[2019-12-17] MEDS: ACIDOPHILUS/BULGARICUS CHEW TAB GT SCH ×2 (08:40→21:58)
[2019-12-17] MEDS: HYDROGEN PEROXIDE 3% 118 ML BOTTLE TP SCH ×2 (08:52→21:16)
[2019-12-17] MEDS: COD LIVER OIL/ZINC OXIDE OINT 113 GM TUBE TP SCH ×2 (08:52→21:59)
[2019-12-17] MEDS: MIRALAX 17 GM POWD.PACK GT SCH (08:52)
[2019-12-17] MEDS: POTASSIUM CHLORIDE 40 MEQ/30 ML LIQUID UDC GT SCH (08:52)
[2019-12-17] MEDS: RIVAROXABAN 15 MG TABLET GT SCH (21:00)
[2019-12-17] MEDS: NUTRISOURCE FIBER 4 GM PACKET GT SCH (21:58)
[2019-12-17] MEDS: PROTEIN SUPPLEMENT (PROSTAT) 30 ML LIQUID GT SCH (21:58)
[2019-12-17] MEDS: ASCORBIC ACID 500 MG TABLET GT SCH (21:58)
[2019-12-17] MEDS: CRANBERRY 500 MG GT SCH (21:58)
[2019-12-17] MEDS: MAGNESIUM COMPLEX GT SCH (21:58)
[2019-12-17] MEDS: MELATONIN 3 MG TABLET GT SCH (21:58)
[2019-12-17 22:40] VITALS: BP 104/64
[2019-12-18] MEDS: METOCLOPRAMIDE HCL 10 MG/10 ML UDC GT SCH ×4 (00:16→17:10)
[2019-12-18] MEDS: OMEPRAZOLE 20 MG CAPSULE.DR GT SCH (06:45)
[2019-12-18] MEDS: BACLOFEN 20 MG TABLET GT SCH ×3 (06:45→22:46)
[2019-12-18] MEDS: MULTIVIT, IRON, MIN NO. 8, FA TABLET GT SCH (06:45)
[2019-12-18 07:31] VITALS: BP 106/64
[2019-12-18] MEDS: COD LIVER OIL/ZINC OXIDE OINT 113 GM TUBE TP SCH ×2 (08:24→21:02)
[2019-12-18] MEDS: POTASSIUM CHLORIDE 40 MEQ/30 ML LIQUID UDC GT SCH (08:24)
[2019-12-18] MEDS: MIRALAX 17 GM POWD.PACK GT SCH (08:24)
[2019-12-18] MEDS: levETIRAcetam 500 MG/5 ML LIQUID UDC GT SCH ×2 (08:24→21:01)
[2019-12-18] MEDS: DOCUSATE SODIUM 100 MG/10 ML LIQUID UDC GT SCH (08:24)
[2019-12-18] MEDS: ACIDOPHILUS/BULGARICUS CHEW TAB GT SCH ×2 (08:24→21:01)
[2019-12-18] MEDS: HYDROGEN PEROXIDE 3% 118 ML BOTTLE TP SCH ×2 (09:00→21:02)
--- NOTE | 2019-12-18 11:30 | NUR ---
Seen by Lu RANDLE with no new order.
[2019-12-18 20:26] VITALS: BP 108/70
[2019-12-18] MEDS: RIVAROXABAN 15 MG TABLET GT SCH (21:00)
[2019-12-18] MEDS: MAGNESIUM COMPLEX GT SCH (21:01)
[2019-12-18] MEDS: MELATONIN 3 MG TABLET GT SCH (21:01)
[2019-12-18] MEDS: CRANBERRY 500 MG GT SCH (21:01)
[2019-12-18] MEDS: NUTRISOURCE FIBER 4 GM PACKET GT SCH (21:01)
[2019-12-18] MEDS: ASCORBIC ACID 500 MG TABLET GT SCH (21:02)
[2019-12-18] MEDS: PROTEIN SUPPLEMENT (PROSTAT) 30 ML LIQUID GT SCH (21:02)
[2019-12-19] MEDS: METOCLOPRAMIDE HCL 10 MG/10 ML UDC GT SCH ×4 (00:14→17:23)
[2019-12-19] MEDS: OMEPRAZOLE 20 MG CAPSULE.DR GT SCH (05:41)
[2019-12-19] MEDS: BACLOFEN 20 MG TABLET GT SCH ×3 (05:41→21:38)
[2019-12-19] MEDS: MULTIVIT, IRON, MIN NO. 8, FA TABLET GT SCH (05:42)
[2019-12-19 07:16] VITALS: BP 92/56
[2019-12-19] MEDS: DOCUSATE SODIUM 100 MG/10 ML LIQUID UDC GT SCH (08:21)
[2019-12-19] MEDS: ACIDOPHILUS/BULGARICUS CHEW TAB GT SCH ×2 (08:21→20:23)
[2019-12-19] MEDS: levETIRAcetam 500 MG/5 ML LIQUID UDC GT SCH ×2 (08:22→20:23)
[2019-12-19] MEDS: MIRALAX 17 GM POWD.PACK GT SCH (08:22)
[2019-12-19] MEDS: POTASSIUM CHLORIDE 40 MEQ/30 ML LIQUID UDC GT SCH (08:23)
[2019-12-19] MEDS: COD LIVER OIL/ZINC OXIDE OINT 113 GM TUBE TP SCH ×2 (08:24→20:29)
[2019-12-19] MEDS: HYDROGEN PEROXIDE 3% 118 ML BOTTLE TP SCH ×2 (09:05→20:13)
--- NOTE | 2019-12-19 11:04 | NUR ---
New orders for cbc,bmp in am,carried out.
--- NOTE | 2019-12-19 14:15 | NUR ---
Face time done with sister Jeanne.
[2019-12-19] MEDS: MELATONIN 3 MG TABLET GT SCH (20:23)
[2019-12-19] MEDS: ASCORBIC ACID 500 MG TABLET GT SCH (20:24)
[2019-12-19] MEDS: PROTEIN SUPPLEMENT (PROSTAT) 30 ML LIQUID GT SCH (20:24)
[2019-12-19] MEDS: MAGNESIUM COMPLEX GT SCH (20:24)
[2019-12-19] MEDS: CRANBERRY 500 MG GT SCH (20:24)
[2019-12-19] MEDS: NUTRISOURCE FIBER 4 GM PACKET GT SCH (20:24)
[2019-12-19] MEDS: RIVAROXABAN 15 MG TABLET GT SCH (20:29)
[2019-12-19 20:37] VITALS: BP 104/67
[2019-12-20] MEDS: METOCLOPRAMIDE HCL 10 MG/10 ML UDC GT SCH ×4 (00:19→17:30)
[2019-12-20] MEDS: TWOCAL HN 1,000 ML LIQUID GT PRN (03:26)
[2019-12-20] MEDS: BACLOFEN 20 MG TABLET GT SCH ×3 (05:29→22:15)
[2019-12-20] MEDS: OMEPRAZOLE 20 MG CAPSULE.DR GT SCH (05:29)
[2019-12-20] MEDS: MULTIVIT, IRON, MIN NO. 8, FA TABLET GT SCH (05:29)
[2019-12-20 06:26] LABS: BASOPHILS # (AUTO) 0.1 K/uL (0.0-8.0); BASOPHILS % (AUTO) 0.8 % (0.0-2.0); EOSINOPHILS # (AUTO) 0.2 K/uL (0.0-0.7); EOSINOPHILS % (AUTO) 2.7 % (0.0-7.0); HEMATOCRIT 40.9 % (31.2-41.9); HEMOGLOBIN 13.8 g/dL (10.9-14.3); LYMPHOCYTES # (AUTO) 2.7 K/uL (20.0-40.0); LYMPHOCYTES % (AUTO) 30.6 % (20.5-51.5); MEAN CORPUSCULAR HGB CONC 34 g/dL (32.3-35.6); MEAN CORPUSCULAR VOLUME 86.2 fL (75.5-95.3); MONOCYTES # (AUTO) 0.5 K/uL (2.0-10.0); MONOCYTES % (AUTO) 5.9 % (0.0-11.0); NEUTROPHILS # (AUTO) 5.3 K/uL (1.8-8.9); PLATELET COUNT (AUTO) 208 K/uL (179-408); RED BLOOD CELL COUNT(AUTO) 4.75 MIL/uL (3.63-4.92); WHITE BLOOD COUNT (AUTO) 8.8 K/uL (3.8-11.8)
[2019-12-20 06:37] LABS: CREATININE 0.7 mg/dL (0.6-1.3); POTASSIUM 3.6 mmol/L (3.5-5.1)
[2019-12-20 07:35] VITALS: BP 92/57
[2019-12-20] MEDS: DOCUSATE SODIUM 100 MG/10 ML LIQUID UDC GT SCH (08:13)
[2019-12-20] MEDS: ACIDOPHILUS/BULGARICUS CHEW TAB GT SCH ×2 (08:13→20:48)
[2019-12-20] MEDS: MIRALAX 17 GM POWD.PACK GT SCH (08:14)
[2019-12-20] MEDS: levETIRAcetam 500 MG/5 ML LIQUID UDC GT SCH ×2 (08:20→20:48)
[2019-12-20] MEDS: POTASSIUM CHLORIDE 40 MEQ/30 ML LIQUID UDC GT SCH (08:21)
[2019-12-20] MEDS: COD LIVER OIL/ZINC OXIDE OINT 113 GM TUBE TP SCH ×2 (08:23→20:51)
[2019-12-20] MEDS: HYDROGEN PEROXIDE 3% 118 ML BOTTLE TP SCH ×2 (09:00→21:06)
[2019-12-20 20:43] VITALS: BP 112/72
[2019-12-20] MEDS: CRANBERRY 500 MG GT SCH (20:49)
[2019-12-20] MEDS: MAGNESIUM COMPLEX GT SCH (20:49)
[2019-12-20] MEDS: MELATONIN 3 MG TABLET GT SCH (20:49)
[2019-12-20] MEDS: ASCORBIC ACID 500 MG TABLET GT SCH (20:50)
[2019-12-20] MEDS: NUTRISOURCE FIBER 4 GM PACKET GT SCH (20:50)
[2019-12-20] MEDS: PROTEIN SUPPLEMENT (PROSTAT) 30 ML LIQUID GT SCH (20:50)
[2019-12-20] MEDS: RIVAROXABAN 15 MG TABLET GT SCH (20:51)
[2019-12-21] MEDS: METOCLOPRAMIDE HCL 10 MG/10 ML UDC GT SCH ×4 (00:23→18:06)
[2019-12-21] MEDS: OMEPRAZOLE 20 MG CAPSULE.DR GT SCH (05:10)
[2019-12-21] MEDS: MULTIVIT, IRON, MIN NO. 8, FA TABLET GT SCH (05:10)
[2019-12-21] MEDS: BACLOFEN 20 MG TABLET GT SCH ×3 (05:10→22:03)
[2019-12-21 07:28] VITALS: BP 97/52
[2019-12-21] MEDS: DOCUSATE SODIUM 100 MG/10 ML LIQUID UDC GT SCH (08:33)
[2019-12-21] MEDS: levETIRAcetam 500 MG/5 ML LIQUID UDC GT SCH ×2 (08:34→20:47)
[2019-12-21] MEDS: ACIDOPHILUS/BULGARICUS CHEW TAB GT SCH ×2 (08:34→20:47)
[2019-12-21] MEDS: MIRALAX 17 GM POWD.PACK GT SCH (08:35)
[2019-12-21] MEDS: COD LIVER OIL/ZINC OXIDE OINT 113 GM TUBE TP SCH ×2 (08:36→20:50)
[2019-12-21] MEDS: POTASSIUM CHLORIDE 40 MEQ/30 ML LIQUID UDC GT SCH (08:36)
[2019-12-21] MEDS: HYDROGEN PEROXIDE 3% 118 ML BOTTLE TP SCH ×2 (10:10→20:55)
--- NOTE | 2019-12-21 14:30 | NUR ---
ISAÍAS sent patient's sister Jeanne an email informing her that effective December 21, video chats with the patient will be done through ZOOM.
[2019-12-21 20:42] VITALS: BP 124/81
[2019-12-21] MEDS: MELATONIN 3 MG TABLET GT SCH (20:48)
[2019-12-21] MEDS: CRANBERRY 500 MG GT SCH (20:48)
[2019-12-21] MEDS: MAGNESIUM COMPLEX GT SCH (20:48)
[2019-12-21] MEDS: NUTRISOURCE FIBER 4 GM PACKET GT SCH (20:49)
[2019-12-21] MEDS: ASCORBIC ACID 500 MG TABLET GT SCH (20:49)
[2019-12-21] MEDS: PROTEIN SUPPLEMENT (PROSTAT) 30 ML LIQUID GT SCH (20:49)
[2019-12-21] MEDS: RIVAROXABAN 15 MG TABLET GT SCH (20:50)
[2019-12-22] MEDS: METOCLOPRAMIDE HCL 10 MG/10 ML UDC GT SCH ×5 (00:21→23:08)
[2019-12-22] MEDS: TWOCAL HN 1,000 ML LIQUID GT PRN (03:33)
[2019-12-22] MEDS: BACLOFEN 20 MG TABLET GT SCH ×3 (05:24→21:20)
[2019-12-22] MEDS: OMEPRAZOLE 20 MG CAPSULE.DR GT SCH (05:24)
[2019-12-22] MEDS: MULTIVIT, IRON, MIN NO. 8, FA TABLET GT SCH (05:24)
[2019-12-22 07:58] VITALS: BP 117/64
[2019-12-22] MEDS: HYDROGEN PEROXIDE 3% 118 ML BOTTLE TP SCH ×2 (08:47→19:11)
[2019-12-22] MEDS: POTASSIUM CHLORIDE 40 MEQ/30 ML LIQUID UDC GT SCH (08:48)
[2019-12-22] MEDS: DOCUSATE SODIUM 100 MG/10 ML LIQUID UDC GT SCH (08:48)
[2019-12-22] MEDS: ACIDOPHILUS/BULGARICUS CHEW TAB GT SCH ×2 (08:48→20:46)
[2019-12-22] MEDS: MIRALAX 17 GM POWD.PACK GT SCH (08:48)
[2019-12-22] MEDS: levETIRAcetam 500 MG/5 ML LIQUID UDC GT SCH ×2 (08:48→20:46)
[2019-12-22] MEDS: COD LIVER OIL/ZINC OXIDE OINT 113 GM TUBE TP SCH ×2 (08:49→20:46)
--- NOTE | 2019-12-22 15:35 | NUR ---
Provided face time to pt and her sister with no problem, resident remains comfortable with no signs of pain or discomfort noted.
[2019-12-22 20:00] VITALS: BP 120/70
[2019-12-22] MEDS: RIVAROXABAN 15 MG TABLET GT SCH (20:35)
[2019-12-22] MEDS: NUTRISOURCE FIBER 4 GM PACKET GT SCH (20:46)
[2019-12-22] MEDS: PROTEIN SUPPLEMENT (PROSTAT) 30 ML LIQUID GT SCH (20:46)
[2019-12-22] MEDS: ASCORBIC ACID 500 MG TABLET GT SCH (20:46)
[2019-12-22] MEDS: MELATONIN 3 MG TABLET GT SCH (20:46)
[2019-12-22] MEDS: CRANBERRY 500 MG GT SCH (20:46)
[2019-12-22] MEDS: MAGNESIUM COMPLEX GT SCH (20:46)
[2019-12-23] MEDS: MULTIVIT, IRON, MIN NO. 8, FA TABLET GT SCH (05:27)
[2019-12-23] MEDS: METOCLOPRAMIDE HCL 10 MG/10 ML UDC GT SCH ×4 (05:27→23:10)
[2019-12-23] MEDS: OMEPRAZOLE 20 MG CAPSULE.DR GT SCH (05:27)
[2019-12-23] MEDS: BACLOFEN 20 MG TABLET GT SCH ×3 (05:27→21:21)
[2019-12-23 07:36] VITALS: BP 107/61
[2019-12-23] MEDS: MIRALAX 17 GM POWD.PACK GT SCH (08:06)
[2019-12-23] MEDS: POTASSIUM CHLORIDE 40 MEQ/30 ML LIQUID UDC GT SCH (08:06)
[2019-12-23] MEDS: ACIDOPHILUS/BULGARICUS CHEW TAB GT SCH ×2 (08:06→20:53)
[2019-12-23] MEDS: DOCUSATE SODIUM 100 MG/10 ML LIQUID UDC GT SCH (08:06)
[2019-12-23] MEDS: COD LIVER OIL/ZINC OXIDE OINT 113 GM TUBE TP SCH ×2 (08:06→20:56)
[2019-12-23] MEDS: levETIRAcetam 500 MG/5 ML LIQUID UDC GT SCH ×2 (08:06→20:55)
[2019-12-23] MEDS: HYDROGEN PEROXIDE 3% 118 ML BOTTLE TP SCH ×2 (09:51→21:39)
--- NOTE | 2019-12-23 17:05 | NUR ---
Provided face time to pt and her mother with no complaints, pt remains comfortable and with no signs of pain or distress noted.
[2019-12-23 20:22] VITALS: BP 125/82
[2019-12-23] MEDS: MELATONIN 3 MG TABLET GT SCH (20:55)
[2019-12-23] MEDS: PROTEIN SUPPLEMENT (PROSTAT) 30 ML LIQUID GT SCH (20:55)
[2019-12-23] MEDS: MAGNESIUM COMPLEX GT SCH (20:55)
[2019-12-23] MEDS: NUTRISOURCE FIBER 4 GM PACKET GT SCH (20:55)
[2019-12-23] MEDS: CRANBERRY 500 MG GT SCH (20:55)
[2019-12-23] MEDS: ASCORBIC ACID 500 MG TABLET GT SCH (20:55)
[2019-12-23] MEDS: RIVAROXABAN 15 MG TABLET GT SCH (20:56)
[2019-12-24] MEDS: METOCLOPRAMIDE HCL 10 MG/10 ML UDC GT SCH ×4 (05:27→23:15)
[2019-12-24] MEDS: OMEPRAZOLE 20 MG CAPSULE.DR GT SCH (05:27)
[2019-12-24] MEDS: BACLOFEN 20 MG TABLET GT SCH ×3 (05:27→21:15)
[2019-12-24] MEDS: MULTIVIT, IRON, MIN NO. 8, FA TABLET GT SCH (05:27)
[2019-12-24 07:55] VITALS: BP 93/57
[2019-12-24] MEDS: ACIDOPHILUS/BULGARICUS CHEW TAB GT SCH ×2 (08:34→20:47)
[2019-12-24] MEDS: DOCUSATE SODIUM 100 MG/10 ML LIQUID UDC GT SCH (08:34)
[2019-12-24] MEDS: POTASSIUM CHLORIDE 40 MEQ/30 ML LIQUID UDC GT SCH (08:35)
[2019-12-24] MEDS: MIRALAX 17 GM POWD.PACK GT SCH (08:35)
[2019-12-24] MEDS: levETIRAcetam 500 MG/5 ML LIQUID UDC GT SCH ×2 (08:35→20:47)
[2019-12-24] MEDS: COD LIVER OIL/ZINC OXIDE OINT 113 GM TUBE TP SCH ×2 (08:35→20:48)
[2019-12-24] MEDS: HYDROGEN PEROXIDE 3% 118 ML BOTTLE TP SCH ×2 (09:00→21:39)
[2019-12-24 20:45] VITALS: BP 102/66
[2019-12-24] MEDS: NUTRISOURCE FIBER 4 GM PACKET GT SCH (20:47)
[2019-12-24] MEDS: ASCORBIC ACID 500 MG TABLET GT SCH (20:47)
[2019-12-24] MEDS: CRANBERRY 500 MG GT SCH (20:47)
[2019-12-24] MEDS: PROTEIN SUPPLEMENT (PROSTAT) 30 ML LIQUID GT SCH (20:47)
[2019-12-24] MEDS: MAGNESIUM COMPLEX GT SCH (20:47)
[2019-12-24] MEDS: MELATONIN 3 MG TABLET GT SCH (20:47)
[2019-12-24] MEDS: RIVAROXABAN 15 MG TABLET GT SCH (20:48)
[2019-12-25] MEDS: OMEPRAZOLE 20 MG CAPSULE.DR GT SCH (05:25)
[2019-12-25] MEDS: METOCLOPRAMIDE HCL 10 MG/10 ML UDC GT SCH ×4 (05:25→23:47)
[2019-12-25] MEDS: BACLOFEN 20 MG TABLET GT SCH ×3 (05:25→21:34)
[2019-12-25] MEDS: MULTIVIT, IRON, MIN NO. 8, FA TABLET GT SCH (05:25)
[2019-12-25 07:36] VITALS: BP 126/66
[2019-12-25] MEDS: HYDROGEN PEROXIDE 3% 118 ML BOTTLE TP SCH ×2 (09:00→20:56)
[2019-12-25] MEDS: ACIDOPHILUS/BULGARICUS CHEW TAB GT SCH ×2 (09:00→20:57)
[2019-12-25] MEDS: MIRALAX 17 GM POWD.PACK GT SCH (09:00)
[2019-12-25] MEDS: levETIRAcetam 500 MG/5 ML LIQUID UDC GT SCH ×2 (09:00→21:05)
[2019-12-25] MEDS: POTASSIUM CHLORIDE 40 MEQ/30 ML LIQUID UDC GT SCH (09:00)
[2019-12-25] MEDS: DOCUSATE SODIUM 100 MG/10 ML LIQUID UDC GT SCH (09:00)
[2019-12-25] MEDS: COD LIVER OIL/ZINC OXIDE OINT 113 GM TUBE TP SCH ×2 (09:00→20:59)
--- NOTE | 2019-12-25 12:00 | NUR ---
SEEN BY [place] Trotter AND WITH NNO.
[2019-12-25 20:43] VITALS: BP 109/56
[2019-12-25] MEDS: MELATONIN 3 MG TABLET GT SCH (20:57)
[2019-12-25] MEDS: CRANBERRY 500 MG GT SCH (20:57)
[2019-12-25] MEDS: PROTEIN SUPPLEMENT (PROSTAT) 30 ML LIQUID GT SCH (20:58)
[2019-12-25] MEDS: MAGNESIUM COMPLEX GT SCH (20:58)
[2019-12-25] MEDS: NUTRISOURCE FIBER 4 GM PACKET GT SCH (20:58)
[2019-12-25] MEDS: ASCORBIC ACID 500 MG TABLET GT SCH (20:58)
[2019-12-25] MEDS: RIVAROXABAN 15 MG TABLET GT SCH (21:05)
[2019-12-25] MEDS: TWOCAL HN 1,000 ML LIQUID GT PRN (21:13)
[2019-12-26] MEDS: BACLOFEN 20 MG TABLET GT SCH ×3 (05:56→21:07)
[2019-12-26] MEDS: OMEPRAZOLE 20 MG CAPSULE.DR GT SCH (05:56)
[2019-12-26] MEDS: METOCLOPRAMIDE HCL 10 MG/10 ML UDC GT SCH ×4 (05:57→23:04)
[2019-12-26] MEDS: MULTIVIT, IRON, MIN NO. 8, FA TABLET GT SCH (05:57)
[2019-12-26 07:33] VITALS: BP 119/65
[2019-12-26] MEDS: HYDROGEN PEROXIDE 3% 118 ML BOTTLE TP SCH ×2 (07:55→21:19)
[2019-12-26] MEDS: ACIDOPHILUS/BULGARICUS CHEW TAB GT SCH ×2 (08:28→21:02)
[2019-12-26] MEDS: levETIRAcetam 500 MG/5 ML LIQUID UDC GT SCH ×2 (08:28→21:02)
[2019-12-26] MEDS: POTASSIUM CHLORIDE 40 MEQ/30 ML LIQUID UDC GT SCH (08:28)
[2019-12-26] MEDS: DOCUSATE SODIUM 100 MG/10 ML LIQUID UDC GT SCH (08:28)
[2019-12-26] MEDS: COD LIVER OIL/ZINC OXIDE OINT 113 GM TUBE TP SCH ×2 (08:28→21:07)
[2019-12-26] MEDS: MIRALAX 17 GM POWD.PACK GT SCH (08:28)
--- NOTE | 2019-12-26 18:53 | NUR ---
Patient stable at this time. v/s wnl. Video chat provided with the family. Family expressed gratitude and appreciation of the time and effort made by the entire staff and the unit as a whole.
[2019-12-26 20:44] VITALS: BP 104/65
[2019-12-26] MEDS: RIVAROXABAN 15 MG TABLET GT SCH (21:00)
[2019-12-26] MEDS: CRANBERRY 500 MG GT SCH (21:03)
[2019-12-26] MEDS: MELATONIN 3 MG TABLET GT SCH (21:03)
[2019-12-26] MEDS: NUTRISOURCE FIBER 4 GM PACKET GT SCH (21:04)
[2019-12-26] MEDS: MAGNESIUM COMPLEX GT SCH (21:04)
[2019-12-26] MEDS: ASCORBIC ACID 500 MG TABLET GT SCH (21:06)
[2019-12-26] MEDS: PROTEIN SUPPLEMENT (PROSTAT) 30 ML LIQUID GT SCH (21:06)
[2019-12-27] MEDS: METOCLOPRAMIDE HCL 10 MG/10 ML UDC GT SCH ×3 (06:15→17:48)
[2019-12-27] MEDS: BACLOFEN 20 MG TABLET GT SCH ×4 (06:15→21:16)
[2019-12-27] MEDS: MULTIVIT, IRON, MIN NO. 8, FA TABLET GT SCH (06:15)
[2019-12-27] MEDS: OMEPRAZOLE 20 MG CAPSULE.DR GT SCH (06:15)
[2019-12-27 07:42] VITALS: BP 120/63
[2019-12-27] MEDS: DOCUSATE SODIUM 100 MG/10 ML LIQUID UDC GT SCH (08:06)
[2019-12-27] MEDS: ACIDOPHILUS/BULGARICUS CHEW TAB GT SCH ×2 (08:06→20:53)
[2019-12-27] MEDS: levETIRAcetam 500 MG/5 ML LIQUID UDC GT SCH ×2 (08:07→20:53)
[2019-12-27] MEDS: MIRALAX 17 GM POWD.PACK GT SCH (08:08)
[2019-12-27] MEDS: COD LIVER OIL/ZINC OXIDE OINT 113 GM TUBE TP SCH ×2 (08:08→20:56)
[2019-12-27] MEDS: POTASSIUM CHLORIDE 40 MEQ/30 ML LIQUID UDC GT SCH (08:08)
[2019-12-27] MEDS: HYDROGEN PEROXIDE 3% 118 ML BOTTLE TP SCH ×2 (09:00→21:48)
--- NOTE | 2019-12-27 16:00 | NUR ---
PT'S FATHER COMMUNICATED WITH PT. VIA ZOOM 5 MIN.
[2019-12-27] MEDS: TWOCAL HN 1,000 ML LIQUID GT PRN (17:52)
[2019-12-27 20:00] VITALS: BP 132/64
[2019-12-27] MEDS: MELATONIN 3 MG TABLET GT SCH (20:53)
[2019-12-27] MEDS: CRANBERRY 500 MG GT SCH (20:54)
[2019-12-27] MEDS: NUTRISOURCE FIBER 4 GM PACKET GT SCH (20:54)
[2019-12-27] MEDS: MAGNESIUM COMPLEX GT SCH (20:54)
[2019-12-27] MEDS: ASCORBIC ACID 500 MG TABLET GT SCH (20:55)
[2019-12-27] MEDS: PROTEIN SUPPLEMENT (PROSTAT) 30 ML LIQUID GT SCH (20:55)
[2019-12-27] MEDS: RIVAROXABAN 15 MG TABLET GT SCH (20:56)
[2019-12-28] MEDS: METOCLOPRAMIDE HCL 10 MG/10 ML UDC GT SCH ×4 (00:11→17:07)
[2019-12-28] MEDS: BACLOFEN 20 MG TABLET GT SCH ×3 (06:10→21:19)
[2019-12-28] MEDS: MULTIVIT, IRON, MIN NO. 8, FA TABLET GT SCH (06:10)
[2019-12-28] MEDS: OMEPRAZOLE 20 MG CAPSULE.DR GT SCH (06:10)
[2019-12-28] MEDS: HYDROGEN PEROXIDE 3% 118 ML BOTTLE TP SCH ×2 (07:12→21:20)
[2019-12-28 07:39] VITALS: BP 110/61
[2019-12-28] MEDS: levETIRAcetam 500 MG/5 ML LIQUID UDC GT SCH ×2 (08:49→21:13)
[2019-12-28] MEDS: MIRALAX 17 GM POWD.PACK GT SCH (08:49)
[2019-12-28] MEDS: POTASSIUM CHLORIDE 40 MEQ/30 ML LIQUID UDC GT SCH (08:49)
[2019-12-28] MEDS: DOCUSATE SODIUM 100 MG/10 ML LIQUID UDC GT SCH (08:49)
[2019-12-28] MEDS: ACIDOPHILUS/BULGARICUS CHEW TAB GT SCH ×2 (08:49→21:13)
[2019-12-28] MEDS: COD LIVER OIL/ZINC OXIDE OINT 113 GM TUBE TP SCH ×2 (08:49→21:19)
[2019-12-28 20:07] VITALS: BP 100/61
[2019-12-28] MEDS: MELATONIN 3 MG TABLET GT SCH (21:13)
[2019-12-28] MEDS: NUTRISOURCE FIBER 4 GM PACKET GT SCH (21:14)
[2019-12-28] MEDS: MAGNESIUM COMPLEX GT SCH (21:14)
[2019-12-28] MEDS: CRANBERRY 500 MG GT SCH (21:14)
[2019-12-28] MEDS: PROTEIN SUPPLEMENT (PROSTAT) 30 ML LIQUID GT SCH (21:14)
[2019-12-28] MEDS: ASCORBIC ACID 500 MG TABLET GT SCH (21:15)
[2019-12-28] MEDS: RIVAROXABAN 15 MG TABLET GT SCH (21:18)
[2019-12-29] MEDS: METOCLOPRAMIDE HCL 10 MG/10 ML UDC GT SCH ×4 (00:11→17:23)
[2019-12-29] MEDS: OMEPRAZOLE 20 MG CAPSULE.DR GT SCH (06:07)
[2019-12-29] MEDS: BACLOFEN 20 MG TABLET GT SCH ×3 (06:07→21:31)
[2019-12-29] MEDS: MULTIVIT, IRON, MIN NO. 8, FA TABLET GT SCH (06:07)
[2019-12-29 07:41] VITALS: BP 91/55
[2019-12-29] MEDS: DOCUSATE SODIUM 100 MG/10 ML LIQUID UDC GT SCH (08:29)
[2019-12-29] MEDS: levETIRAcetam 500 MG/5 ML LIQUID UDC GT SCH ×2 (08:29→20:59)
[2019-12-29] MEDS: MIRALAX 17 GM POWD.PACK GT SCH (08:29)
[2019-12-29] MEDS: POTASSIUM CHLORIDE 40 MEQ/30 ML LIQUID UDC GT SCH (08:29)
[2019-12-29] MEDS: ACIDOPHILUS/BULGARICUS CHEW TAB GT SCH ×2 (08:29→20:59)
[2019-12-29] MEDS: COD LIVER OIL/ZINC OXIDE OINT 113 GM TUBE TP SCH ×2 (08:30→20:59)
[2019-12-29] MEDS: HYDROGEN PEROXIDE 3% 118 ML BOTTLE TP SCH ×2 (09:00→20:31)
[2019-12-29 20:00] VITALS: BP 104/65
[2019-12-29] MEDS: NUTRISOURCE FIBER 4 GM PACKET GT SCH (20:59)
[2019-12-29] MEDS: MELATONIN 3 MG TABLET GT SCH (20:59)
[2019-12-29] MEDS: CRANBERRY 500 MG GT SCH (20:59)
[2019-12-29] MEDS: PROTEIN SUPPLEMENT (PROSTAT) 30 ML LIQUID GT SCH (20:59)
[2019-12-29] MEDS: ASCORBIC ACID 500 MG TABLET GT SCH (20:59)
[2019-12-29] MEDS: MAGNESIUM COMPLEX GT SCH (20:59)
[2019-12-29] MEDS: RIVAROXABAN 15 MG TABLET GT SCH (21:00)
[2019-12-30] MEDS: METOCLOPRAMIDE HCL 10 MG/10 ML UDC GT SCH ×4 (00:13→17:15)
[2019-12-30] MEDS: OMEPRAZOLE 20 MG CAPSULE.DR GT SCH (06:21)
[2019-12-30] MEDS: BACLOFEN 20 MG TABLET GT SCH ×3 (06:21→21:04)
[2019-12-30] MEDS: MULTIVIT, IRON, MIN NO. 8, FA TABLET GT SCH (06:22)
[2019-12-30] MEDS: TWOCAL HN 1,000 ML LIQUID GT PRN (06:57)
[2019-12-30] MEDS: levETIRAcetam 500 MG/5 ML LIQUID UDC GT SCH ×2 (08:42→20:52)
[2019-12-30] MEDS: DOCUSATE SODIUM 100 MG/10 ML LIQUID UDC GT SCH (08:42)
[2019-12-30] MEDS: ACIDOPHILUS/BULGARICUS CHEW TAB GT SCH ×2 (08:42→20:52)
[2019-12-30] MEDS: POTASSIUM CHLORIDE 40 MEQ/30 ML LIQUID UDC GT SCH (08:43)
[2019-12-30] MEDS: MIRALAX 17 GM POWD.PACK GT SCH (08:43)
[2019-12-30] MEDS: COD LIVER OIL/ZINC OXIDE OINT 113 GM TUBE TP SCH ×2 (08:43→20:55)
[2019-12-30] MEDS: HYDROGEN PEROXIDE 3% 118 ML BOTTLE TP SCH ×2 (08:51→21:32)
[2019-12-30] MEDS: CRANBERRY 500 MG GT SCH (20:53)
[2019-12-30] MEDS: MELATONIN 3 MG TABLET GT SCH (20:53)
[2019-12-30] MEDS: NUTRISOURCE FIBER 4 GM PACKET GT SCH (20:54)
[2019-12-30] MEDS: ASCORBIC ACID 500 MG TABLET GT SCH (20:54)
[2019-12-30] MEDS: PROTEIN SUPPLEMENT (PROSTAT) 30 ML LIQUID GT SCH (20:54)
[2019-12-30] MEDS: MAGNESIUM COMPLEX GT SCH (20:56)
[2019-12-30] MEDS: RIVAROXABAN 15 MG TABLET GT SCH (21:05)
[2019-12-30 22:12] VITALS: BP 101/56
[2019-12-31] MEDS: METOCLOPRAMIDE HCL 10 MG/10 ML UDC GT SCH ×4 (00:03→18:03)
[2019-12-31] MEDS: MULTIVIT, IRON, MIN NO. 8, FA TABLET GT SCH (05:05)
[2019-12-31] MEDS: OMEPRAZOLE 20 MG CAPSULE.DR GT SCH (05:05)
[2019-12-31] MEDS: BACLOFEN 20 MG TABLET GT SCH ×3 (05:05→22:01)
[2019-12-31 07:59] VITALS: BP 109/65
[2019-12-31] MEDS: ACIDOPHILUS/BULGARICUS CHEW TAB GT SCH ×2 (08:58→20:33)
[2019-12-31] MEDS: POTASSIUM CHLORIDE 40 MEQ/30 ML LIQUID UDC GT SCH (08:58)
[2019-12-31] MEDS: DOCUSATE SODIUM 100 MG/10 ML LIQUID UDC GT SCH (08:58)
[2019-12-31] MEDS: levETIRAcetam 500 MG/5 ML LIQUID UDC GT SCH ×2 (08:58→20:33)
[2019-12-31] MEDS: MIRALAX 17 GM POWD.PACK GT SCH (08:58)
[2019-12-31] MEDS: COD LIVER OIL/ZINC OXIDE OINT 113 GM TUBE TP SCH ×2 (08:59→20:45)
[2019-12-31] MEDS: HYDROGEN PEROXIDE 3% 118 ML BOTTLE TP SCH ×2 (10:10→21:16)
[2019-12-31] MEDS: MAGNESIUM COMPLEX GT SCH (20:35)
[2019-12-31] MEDS: CRANBERRY 500 MG GT SCH (20:35)
[2019-12-31] MEDS: NUTRISOURCE FIBER 4 GM PACKET GT SCH (20:35)
[2019-12-31] MEDS: ASCORBIC ACID 500 MG TABLET GT SCH (20:36)
[2019-12-31] MEDS: PROTEIN SUPPLEMENT (PROSTAT) 30 ML LIQUID GT SCH (20:36)
[2019-12-31] MEDS: RIVAROXABAN 15 MG TABLET GT SCH (20:40)
[2019-12-31] MEDS: MELATONIN 3 MG TABLET GT SCH (20:46)
[2019-12-31 23:25] VITALS: BP 100/63
[2020-01-01] MEDS: METOCLOPRAMIDE HCL 10 MG/10 ML UDC GT SCH ×4 (00:25→17:14)
[2020-01-01] MEDS: BACLOFEN 20 MG TABLET GT SCH ×3 (05:06→21:01)
[2020-01-01] MEDS: OMEPRAZOLE 20 MG CAPSULE.DR GT SCH (05:06)
[2020-01-01] MEDS: MULTIVIT, IRON, MIN NO. 8, FA TABLET GT SCH (05:06)
[2020-01-01] MEDS: TWOCAL HN 1,000 ML LIQUID GT PRN (06:37)
[2020-01-01] MEDS: ACIDOPHILUS/BULGARICUS CHEW TAB GT SCH ×2 (08:07→20:51)
[2020-01-01] MEDS: levETIRAcetam 500 MG/5 ML LIQUID UDC GT SCH ×2 (08:07→20:52)
[2020-01-01] MEDS: DOCUSATE SODIUM 100 MG/10 ML LIQUID UDC GT SCH (08:07)
[2020-01-01] MEDS: MIRALAX 17 GM POWD.PACK GT SCH (08:08)
[2020-01-01 08:09] VITALS: BP 91/54
[2020-01-01] MEDS: POTASSIUM CHLORIDE 40 MEQ/30 ML LIQUID UDC GT SCH (08:09)
[2020-01-01] MEDS: COD LIVER OIL/ZINC OXIDE OINT 113 GM TUBE TP SCH ×2 (08:09→20:54)
[2020-01-01] MEDS: HYDROGEN PEROXIDE 3% 118 ML BOTTLE TP SCH ×2 (08:28→21:58)
--- NOTE | 2020-01-01 12:00 | NUR ---
Seen by Lu GENAO. notifed of R eyelid swelling, new order given to apply warm compresses every 2 hrs until stye resolves, Father notified of patient's condition.
--- NOTE | 2020-01-01 13:30 | NUR ---
VIDEO CHAT DONE WITH PATIENT'S FATHER MILLI.
[2020-01-01 20:43] VITALS: BP 110/52
[2020-01-01] MEDS: RIVAROXABAN 15 MG TABLET GT SCH (20:49)
[2020-01-01] MEDS: MAGNESIUM COMPLEX GT SCH (20:52)
[2020-01-01] MEDS: MELATONIN 3 MG TABLET GT SCH (20:52)
[2020-01-01] MEDS: CRANBERRY 500 MG GT SCH (20:52)
[2020-01-01] MEDS: NUTRISOURCE FIBER 4 GM PACKET GT SCH (20:54)
[2020-01-01] MEDS: PROTEIN SUPPLEMENT (PROSTAT) 30 ML LIQUID GT SCH (20:54)
[2020-01-01] MEDS: ASCORBIC ACID 500 MG TABLET GT SCH (20:54)
[2020-01-02] MEDS: METOCLOPRAMIDE HCL 10 MG/10 ML UDC GT SCH ×4 (00:38→17:26)
[2020-01-02] MEDS: MULTIVIT, IRON, MIN NO. 8, FA TABLET GT SCH (05:07)
[2020-01-02] MEDS: OMEPRAZOLE 20 MG CAPSULE.DR GT SCH (05:07)
[2020-01-02] MEDS: BACLOFEN 20 MG TABLET GT SCH ×3 (05:07→22:49)
[2020-01-02 07:48] VITALS: BP 101/61
[2020-01-02] MEDS: MIRALAX 17 GM POWD.PACK GT SCH (08:24)
[2020-01-02] MEDS: ACIDOPHILUS/BULGARICUS CHEW TAB GT SCH ×2 (08:24→20:42)
[2020-01-02] MEDS: DOCUSATE SODIUM 100 MG/10 ML LIQUID UDC GT SCH (08:24)
[2020-01-02] MEDS: POTASSIUM CHLORIDE 40 MEQ/30 ML LIQUID UDC GT SCH (08:25)
[2020-01-02] MEDS: COD LIVER OIL/ZINC OXIDE OINT 113 GM TUBE TP SCH ×2 (08:27→20:44)
[2020-01-02] MEDS: HYDROGEN PEROXIDE 3% 118 ML BOTTLE TP SCH ×2 (08:52→21:22)
[2020-01-02] MEDS: levETIRAcetam 500 MG/5 ML LIQUID UDC GT SCH ×2 (09:00→20:42)
--- NOTE | 2020-01-02 12:00 | NUR ---
PATIENT UP ON W/C, NO DISTRESS NOTED. WARM COMPRESSES DONE ORDERED.
--- NOTE | 2020-01-02 16:50 | NUR ---
VIDEO CHAT DONE WITH PT'S SISTER FRENCH HANDLEY.
[2020-01-02 20:06] VITALS: BP 116/77
[2020-01-02] MEDS: CRANBERRY 500 MG GT SCH (20:42)
[2020-01-02] MEDS: MAGNESIUM COMPLEX GT SCH (20:42)
[2020-01-02] MEDS: MELATONIN 3 MG TABLET GT SCH (20:42)
[2020-01-02] MEDS: PROTEIN SUPPLEMENT (PROSTAT) 30 ML LIQUID GT SCH (20:43)
[2020-01-02] MEDS: ASCORBIC ACID 500 MG TABLET GT SCH (20:43)
[2020-01-02] MEDS: NUTRISOURCE FIBER 4 GM PACKET GT SCH (20:43)
[2020-01-02] MEDS: RIVAROXABAN 15 MG TABLET GT SCH (20:45)
[2020-01-03] MEDS: METOCLOPRAMIDE HCL 10 MG/10 ML UDC GT SCH ×5 (00:23→23:48)
[2020-01-03] MEDS: TWOCAL HN 1,000 ML LIQUID GT PRN (02:17)
[2020-01-03] MEDS: MULTIVIT, IRON, MIN NO. 8, FA TABLET GT SCH (05:05)
[2020-01-03] MEDS: OMEPRAZOLE 20 MG CAPSULE.DR GT SCH (05:05)
[2020-01-03] MEDS: BACLOFEN 20 MG TABLET GT SCH ×3 (05:05→21:37)
[2020-01-03 08:00] VITALS: BP 100/61
[2020-01-03] MEDS: DOCUSATE SODIUM 100 MG/10 ML LIQUID UDC GT SCH (08:32)
[2020-01-03] MEDS: ACIDOPHILUS/BULGARICUS CHEW TAB GT SCH ×2 (08:32→20:54)
[2020-01-03] MEDS: MIRALAX 17 GM POWD.PACK GT SCH (08:34)
[2020-01-03] MEDS: COD LIVER OIL/ZINC OXIDE OINT 113 GM TUBE TP SCH ×2 (08:34→20:56)
[2020-01-03] MEDS: levETIRAcetam 500 MG/5 ML LIQUID UDC GT SCH ×2 (08:34→20:54)
[2020-01-03] MEDS: POTASSIUM CHLORIDE 40 MEQ/30 ML LIQUID UDC GT SCH (08:34)
[2020-01-03] MEDS: HYDROGEN PEROXIDE 3% 118 ML BOTTLE TP SCH ×2 (09:18→21:23)
--- NOTE | 2020-01-03 17:11 | NUR ---
New orders to do the Baseline [facility] Covid 19 test requirement.
[2020-01-03 20:00] VITALS: BP 111/66
[2020-01-03] MEDS: MELATONIN 3 MG TABLET GT SCH (20:54)
[2020-01-03] MEDS: NUTRISOURCE FIBER 4 GM PACKET GT SCH (20:55)
[2020-01-03] MEDS: CRANBERRY 500 MG GT SCH (20:55)
[2020-01-03] MEDS: ASCORBIC ACID 500 MG TABLET GT SCH (20:55)
[2020-01-03] MEDS: MAGNESIUM COMPLEX GT SCH (20:55)
[2020-01-03] MEDS: PROTEIN SUPPLEMENT (PROSTAT) 30 ML LIQUID GT SCH (20:55)
[2020-01-03] MEDS: RIVAROXABAN 15 MG TABLET GT SCH (21:00)
[2020-01-04] MEDS: METOCLOPRAMIDE HCL 10 MG/10 ML UDC GT SCH ×3 (05:32→17:15)
[2020-01-04] MEDS: OMEPRAZOLE 20 MG CAPSULE.DR GT SCH (05:32)
[2020-01-04] MEDS: BACLOFEN 20 MG TABLET GT SCH ×3 (05:32→21:55)
[2020-01-04] MEDS: MULTIVIT, IRON, MIN NO. 8, FA TABLET GT SCH (05:33)
[2020-01-04] MEDS: HYDROGEN PEROXIDE 3% 118 ML BOTTLE TP SCH ×2 (07:25→21:06)
[2020-01-04 07:43] VITALS: BP 111/68
[2020-01-04] MEDS: DOCUSATE SODIUM 100 MG/10 ML LIQUID UDC GT SCH (08:34)
[2020-01-04] MEDS: ACIDOPHILUS/BULGARICUS CHEW TAB GT SCH ×2 (08:34→20:51)
[2020-01-04] MEDS: MIRALAX 17 GM POWD.PACK GT SCH (08:34)
[2020-01-04] MEDS: levETIRAcetam 500 MG/5 ML LIQUID UDC GT SCH ×2 (08:34→20:51)
[2020-01-04] MEDS: COD LIVER OIL/ZINC OXIDE OINT 113 GM TUBE TP SCH ×2 (08:35→20:53)
[2020-01-04] MEDS: POTASSIUM CHLORIDE 40 MEQ/30 ML LIQUID UDC GT SCH (08:35)
--- NOTE | 2020-01-04 10:07 | NUR ---
SEEN AND EXAMINED BY DR. LA AND WITH NNO.
[2020-01-04 20:00] VITALS: BP 115/67
[2020-01-04] MEDS: MAGNESIUM COMPLEX GT SCH (20:52)
[2020-01-04] MEDS: MELATONIN 3 MG TABLET GT SCH (20:52)
[2020-01-04] MEDS: CRANBERRY 500 MG GT SCH (20:52)
[2020-01-04] MEDS: PROTEIN SUPPLEMENT (PROSTAT) 30 ML LIQUID GT SCH (20:52)
[2020-01-04] MEDS: ASCORBIC ACID 500 MG TABLET GT SCH (20:52)
[2020-01-04] MEDS: NUTRISOURCE FIBER 4 GM PACKET GT SCH (20:52)
[2020-01-04] MEDS: RIVAROXABAN 15 MG TABLET GT SCH (21:13)
[2020-01-05] MEDS: METOCLOPRAMIDE HCL 10 MG/10 ML UDC GT SCH ×4 (00:03→17:34)
[2020-01-05] MEDS: TWOCAL HN 1,000 ML LIQUID GT PRN (04:53)
[2020-01-05] MEDS: BACLOFEN 20 MG TABLET GT SCH ×3 (05:01→21:10)
[2020-01-05] MEDS: MULTIVIT, IRON, MIN NO. 8, FA TABLET GT SCH (05:01)
[2020-01-05] MEDS: OMEPRAZOLE 20 MG CAPSULE.DR GT SCH (05:01)
[2020-01-05 07:41] VITALS: BP 112/62
[2020-01-05] MEDS: levETIRAcetam 500 MG/5 ML LIQUID UDC GT SCH ×2 (08:23→21:09)
[2020-01-05] MEDS: DOCUSATE SODIUM 100 MG/10 ML LIQUID UDC GT SCH (08:23)
[2020-01-05] MEDS: ACIDOPHILUS/BULGARICUS CHEW TAB GT SCH ×2 (08:23→21:09)
[2020-01-05] MEDS: MIRALAX 17 GM POWD.PACK GT SCH (08:24)
[2020-01-05] MEDS: POTASSIUM CHLORIDE 40 MEQ/30 ML LIQUID UDC GT SCH (08:24)
[2020-01-05] MEDS: COD LIVER OIL/ZINC OXIDE OINT 113 GM TUBE TP SCH ×2 (08:24→21:09)
[2020-01-05] MEDS: HYDROGEN PEROXIDE 3% 118 ML BOTTLE TP SCH ×2 (08:58→21:52)
--- NOTE | 2020-01-05 14:40 | NUR ---
SEEN BY DR. LA AND WITH NNO.
--- NOTE | 2020-01-05 18:00 | NUR ---
PT. NEGATIVE FOR COVID 19 TEST.
[2020-01-05 20:00] VITALS: BP 110/68
[2020-01-05] MEDS: NUTRISOURCE FIBER 4 GM PACKET GT SCH (21:09)
[2020-01-05] MEDS: CRANBERRY 500 MG GT SCH (21:09)
[2020-01-05] MEDS: MELATONIN 3 MG TABLET GT SCH (21:09)
[2020-01-05] MEDS: MAGNESIUM COMPLEX GT SCH (21:09)
[2020-01-05] MEDS: PROTEIN SUPPLEMENT (PROSTAT) 30 ML LIQUID GT SCH (21:09)
[2020-01-05] MEDS: ASCORBIC ACID 500 MG TABLET GT SCH (21:09)
[2020-01-05] MEDS: RIVAROXABAN 15 MG TABLET GT SCH (21:20)
[2020-01-06] MEDS: METOCLOPRAMIDE HCL 10 MG/10 ML UDC GT SCH ×5 (00:54→23:32)
[2020-01-06] MEDS: BACLOFEN 20 MG TABLET GT SCH ×3 (05:29→22:06)
[2020-01-06] MEDS: MULTIVIT, IRON, MIN NO. 8, FA TABLET GT SCH (05:29)
[2020-01-06] MEDS: OMEPRAZOLE 20 MG CAPSULE.DR GT SCH (05:29)
[2020-01-06 07:41] VITALS: BP 100/57
[2020-01-06] MEDS: DOCUSATE SODIUM 100 MG/10 ML LIQUID UDC GT SCH (08:22)
[2020-01-06] MEDS: POTASSIUM CHLORIDE 40 MEQ/30 ML LIQUID UDC GT SCH (08:23)
[2020-01-06] MEDS: MIRALAX 17 GM POWD.PACK GT SCH (08:23)
[2020-01-06] MEDS: ACIDOPHILUS/BULGARICUS CHEW TAB GT SCH ×2 (08:23→20:41)
[2020-01-06] MEDS: COD LIVER OIL/ZINC OXIDE OINT 113 GM TUBE TP SCH ×2 (08:24→20:57)
[2020-01-06] MEDS: levETIRAcetam 500 MG/5 ML LIQUID UDC GT SCH ×2 (09:21→20:41)
[2020-01-06] MEDS: HYDROGEN PEROXIDE 3% 118 ML BOTTLE TP SCH ×2 (09:49→21:42)
--- NOTE | 2020-01-06 16:55 | NUR ---
Assisted video chat with patients, mother at this time.
[2020-01-06 20:00] VITALS: BP 116/75
[2020-01-06] MEDS: MELATONIN 3 MG TABLET GT SCH (20:41)
[2020-01-06] MEDS: MAGNESIUM COMPLEX GT SCH (20:43)
[2020-01-06] MEDS: NUTRISOURCE FIBER 4 GM PACKET GT SCH (20:43)
[2020-01-06] MEDS: CRANBERRY 500 MG GT SCH (20:43)
[2020-01-06] MEDS: ASCORBIC ACID 500 MG TABLET GT SCH (20:43)
[2020-01-06] MEDS: PROTEIN SUPPLEMENT (PROSTAT) 30 ML LIQUID GT SCH (20:43)
[2020-01-06] MEDS: RIVAROXABAN 15 MG TABLET GT SCH (20:44)
[2020-01-06] MEDS: GUAIFENESIN/DEXTROMETHORPHAN 5 ML UDC GT PRN (23:33)
[2020-01-07] MEDS: TWOCAL HN 1,000 ML LIQUID GT PRN (02:33)
[2020-01-07] MEDS: METOCLOPRAMIDE HCL 10 MG/10 ML UDC GT SCH ×3 (05:20→18:39)
[2020-01-07] MEDS: MULTIVIT, IRON, MIN NO. 8, FA TABLET GT SCH (05:20)
[2020-01-07] MEDS: OMEPRAZOLE 20 MG CAPSULE.DR GT SCH (05:20)
[2020-01-07] MEDS: BACLOFEN 20 MG TABLET GT SCH ×3 (05:20→21:24)
[2020-01-07 07:54] VITALS: BP 95/56
[2020-01-07] MEDS: POTASSIUM CHLORIDE 40 MEQ/30 ML LIQUID UDC GT SCH (08:30)
[2020-01-07] MEDS: levETIRAcetam 500 MG/5 ML LIQUID UDC GT SCH ×2 (08:30→21:23)
[2020-01-07] MEDS: DOCUSATE SODIUM 100 MG/10 ML LIQUID UDC GT SCH (08:30)
[2020-01-07] MEDS: ACIDOPHILUS/BULGARICUS CHEW TAB GT SCH ×2 (08:30→21:23)
[2020-01-07] MEDS: COD LIVER OIL/ZINC OXIDE OINT 113 GM TUBE TP SCH ×2 (08:30→21:24)
[2020-01-07] MEDS: MIRALAX 17 GM POWD.PACK GT SCH (08:30)
[2020-01-07] MEDS: HYDROGEN PEROXIDE 3% 118 ML BOTTLE TP SCH ×2 (08:46→21:28)
--- NOTE | 2020-01-07 11:00 | NUR ---
Provided video chat to pt. and her father with no problem, pt kept clean and comfortable no signs of pain or distress noted.
[2020-01-07 20:24] VITALS: BP 126/73
[2020-01-07] MEDS: RIVAROXABAN 15 MG TABLET GT SCH (21:00)
[2020-01-07] MEDS: MAGNESIUM COMPLEX GT SCH (21:23)
[2020-01-07] MEDS: MELATONIN 3 MG TABLET GT SCH (21:23)
[2020-01-07] MEDS: NUTRISOURCE FIBER 4 GM PACKET GT SCH (21:23)
[2020-01-07] MEDS: CRANBERRY 500 MG GT SCH (21:23)
[2020-01-07] MEDS: ASCORBIC ACID 500 MG TABLET GT SCH (21:23)
[2020-01-07] MEDS: PROTEIN SUPPLEMENT (PROSTAT) 30 ML LIQUID GT SCH (21:23)
[2020-01-08] MEDS: METOCLOPRAMIDE HCL 10 MG/10 ML UDC GT SCH ×4 (00:29→17:38)
[2020-01-08] MEDS: OMEPRAZOLE 20 MG CAPSULE.DR GT SCH (06:28)
[2020-01-08] MEDS: BACLOFEN 20 MG TABLET GT SCH ×3 (06:28→21:38)
[2020-01-08] MEDS: MULTIVIT, IRON, MIN NO. 8, FA TABLET GT SCH (06:28)
[2020-01-08 07:32] VITALS: BP 111/55
[2020-01-08] MEDS: COD LIVER OIL/ZINC OXIDE OINT 113 GM TUBE TP SCH ×2 (08:22→21:38)
[2020-01-08] MEDS: MIRALAX 17 GM POWD.PACK GT SCH (08:22)
[2020-01-08] MEDS: POTASSIUM CHLORIDE 40 MEQ/30 ML LIQUID UDC GT SCH (08:22)
[2020-01-08] MEDS: levETIRAcetam 500 MG/5 ML LIQUID UDC GT SCH ×2 (08:22→21:38)
[2020-01-08] MEDS: DOCUSATE SODIUM 100 MG/10 ML LIQUID UDC GT SCH (08:22)
[2020-01-08] MEDS: ACIDOPHILUS/BULGARICUS CHEW TAB GT SCH ×2 (08:22→21:38)
[2020-01-08] MEDS: HYDROGEN PEROXIDE 3% 118 ML BOTTLE TP SCH ×2 (09:05→21:46)
--- NOTE | 2020-01-08 13:15 | NUR ---
SEEN BY [place] TrotterAND WITH NNO.
--- NOTE | 2020-01-08 14:45 | NUR ---
Provided Zoom meeting for Patient and Castillo Angel.
[2020-01-08 20:16] VITALS: BP 110/73
[2020-01-08] MEDS: RIVAROXABAN 15 MG TABLET GT SCH (21:00)
[2020-01-08] MEDS: CRANBERRY 500 MG GT SCH (21:38)
[2020-01-08] MEDS: MELATONIN 3 MG TABLET GT SCH (21:38)
[2020-01-08] MEDS: ASCORBIC ACID 500 MG TABLET GT SCH (21:38)
[2020-01-08] MEDS: MAGNESIUM COMPLEX GT SCH (21:38)
[2020-01-08] MEDS: PROTEIN SUPPLEMENT (PROSTAT) 30 ML LIQUID GT SCH (21:38)
[2020-01-08] MEDS: NUTRISOURCE FIBER 4 GM PACKET GT SCH (21:38)
--- NOTE | 2020-01-08 23:22 | NUR ---
Seen by Dr. Burk with no new orders.
[2020-01-09] MEDS: METOCLOPRAMIDE HCL 10 MG/10 ML UDC GT SCH ×4 (00:03→18:33)
[2020-01-09] MEDS: MULTIVIT, IRON, MIN NO. 8, FA TABLET GT SCH (06:38)
[2020-01-09] MEDS: OMEPRAZOLE 20 MG CAPSULE.DR GT SCH (06:38)
[2020-01-09] MEDS: BACLOFEN 20 MG TABLET GT SCH ×3 (06:38→22:10)
[2020-01-09 07:36] VITALS: BP 100/45
[2020-01-09] MEDS: DOCUSATE SODIUM 100 MG/10 ML LIQUID UDC GT SCH (08:40)
[2020-01-09] MEDS: levETIRAcetam 500 MG/5 ML LIQUID UDC GT SCH ×2 (08:41→20:36)
[2020-01-09] MEDS: ACIDOPHILUS/BULGARICUS CHEW TAB GT SCH ×2 (08:41→20:35)
[2020-01-09] MEDS: POTASSIUM CHLORIDE 40 MEQ/30 ML LIQUID UDC GT SCH (08:42)
[2020-01-09] MEDS: COD LIVER OIL/ZINC OXIDE OINT 113 GM TUBE TP SCH ×2 (08:42→20:43)
[2020-01-09] MEDS: MIRALAX 17 GM POWD.PACK GT SCH (08:42)
[2020-01-09] MEDS: HYDROGEN PEROXIDE 3% 118 ML BOTTLE TP SCH ×2 (09:00→21:37)
--- NOTE | 2020-01-09 16:15 | NUR ---
PT. HAD VIDEO CHAT VIA ZOOM WITH PT'S SISTER 5 MIN.
[2020-01-09] MEDS: TWOCAL HN 1,000 ML LIQUID GT PRN (18:41)
[2020-01-09 20:00] VITALS: BP 118/64
[2020-01-09] MEDS: CRANBERRY 500 MG GT SCH (20:36)
[2020-01-09] MEDS: MAGNESIUM COMPLEX GT SCH (20:36)
[2020-01-09] MEDS: MELATONIN 3 MG TABLET GT SCH (20:36)
[2020-01-09] MEDS: NUTRISOURCE FIBER 4 GM PACKET GT SCH (20:36)
[2020-01-09] MEDS: PROTEIN SUPPLEMENT (PROSTAT) 30 ML LIQUID GT SCH (20:39)
[2020-01-09] MEDS: ASCORBIC ACID 500 MG TABLET GT SCH (20:40)
[2020-01-09] MEDS: RIVAROXABAN 15 MG TABLET GT SCH (20:42)
[2020-01-10] MEDS: METOCLOPRAMIDE HCL 10 MG/10 ML UDC GT SCH ×4 (00:24→17:50)
[2020-01-10] MEDS: MULTIVIT, IRON, MIN NO. 8, FA TABLET GT SCH (05:52)
[2020-01-10] MEDS: OMEPRAZOLE 20 MG CAPSULE.DR GT SCH (05:52)
[2020-01-10] MEDS: BACLOFEN 20 MG TABLET GT SCH ×3 (05:52→22:21)
[2020-01-10 07:42] VITALS: BP 82/55
[2020-01-10] MEDS: HYDROGEN PEROXIDE 3% 118 ML BOTTLE TP SCH ×2 (09:00→21:49)
[2020-01-10] MEDS: POTASSIUM CHLORIDE 40 MEQ/30 ML LIQUID UDC GT SCH (09:11)
[2020-01-10] MEDS: COD LIVER OIL/ZINC OXIDE OINT 113 GM TUBE TP SCH ×2 (09:11→20:49)
[2020-01-10] MEDS: levETIRAcetam 500 MG/5 ML LIQUID UDC GT SCH ×2 (09:11→20:44)
[2020-01-10] MEDS: ACIDOPHILUS/BULGARICUS CHEW TAB GT SCH ×2 (09:11→20:44)
[2020-01-10] MEDS: DOCUSATE SODIUM 100 MG/10 ML LIQUID UDC GT SCH (09:11)
[2020-01-10] MEDS: MIRALAX 17 GM POWD.PACK GT SCH (09:11)
[2020-01-10 20:00] VITALS: BP 93/51
[2020-01-10] MEDS: MAGNESIUM COMPLEX GT SCH (20:44)
[2020-01-10] MEDS: CRANBERRY 500 MG GT SCH (20:44)
[2020-01-10] MEDS: MELATONIN 3 MG TABLET GT SCH (20:44)
[2020-01-10] MEDS: NUTRISOURCE FIBER 4 GM PACKET GT SCH (20:46)
[2020-01-10] MEDS: PROTEIN SUPPLEMENT (PROSTAT) 30 ML LIQUID GT SCH (20:47)
[2020-01-10] MEDS: ASCORBIC ACID 500 MG TABLET GT SCH (20:47)
[2020-01-10] MEDS: RIVAROXABAN 15 MG TABLET GT SCH (20:49)
[2020-01-11] MEDS: METOCLOPRAMIDE HCL 10 MG/10 ML UDC GT SCH ×4 (00:48→18:08)
[2020-01-11] MEDS: OMEPRAZOLE 20 MG CAPSULE.DR GT SCH (06:03)
[2020-01-11] MEDS: MULTIVIT, IRON, MIN NO. 8, FA TABLET GT SCH (06:03)
[2020-01-11] MEDS: BACLOFEN 20 MG TABLET GT SCH ×3 (06:03→22:09)
[2020-01-11 07:49] VITALS: BP 112/72
[2020-01-11] MEDS: DOCUSATE SODIUM 100 MG/10 ML LIQUID UDC GT SCH (08:03)
[2020-01-11] MEDS: ACIDOPHILUS/BULGARICUS CHEW TAB GT SCH ×2 (08:04→20:35)
[2020-01-11] MEDS: levETIRAcetam 500 MG/5 ML LIQUID UDC GT SCH ×2 (08:04→20:35)
[2020-01-11] MEDS: POTASSIUM CHLORIDE 40 MEQ/30 ML LIQUID UDC GT SCH (08:06)
[2020-01-11] MEDS: MIRALAX 17 GM POWD.PACK GT SCH (08:06)
[2020-01-11] MEDS: COD LIVER OIL/ZINC OXIDE OINT 113 GM TUBE TP SCH ×2 (08:06→20:39)
[2020-01-11] MEDS: HYDROGEN PEROXIDE 3% 118 ML BOTTLE TP SCH ×2 (09:00→21:21)
--- NOTE | 2020-01-11 14:05 | NUR ---
ISAÍAS notified patient's sister Jeanne via email that the next IDT meeting for the patient is scheduled for 01/16/2020 at 11am. In the same email, ISAÍAS asked Jeanne to reply back to this SW to notify her if Jeanne would like to participate in the IDT meeting via speaker phone. SW awaiting response.
--- NOTE | 2020-01-11 16:57 | NUR ---
ISAÍAS received an email back from patient's sister Jeanne in response to this SW's email regarding the IDT meeting on 01/16/20. Jeanne stated that she would like to participate in the IDT meeting via speaker phone. SW to contact Jeanne via telephone during the IDT meeting.
[2020-01-11 20:00] VITALS: BP 120/78
[2020-01-11] MEDS: MELATONIN 3 MG TABLET GT SCH (20:35)
[2020-01-11] MEDS: PROTEIN SUPPLEMENT (PROSTAT) 30 ML LIQUID GT SCH (20:37)
[2020-01-11] MEDS: NUTRISOURCE FIBER 4 GM PACKET GT SCH (20:37)
[2020-01-11] MEDS: CRANBERRY 500 MG GT SCH (20:37)
[2020-01-11] MEDS: MAGNESIUM COMPLEX GT SCH (20:37)
[2020-01-11] MEDS: ASCORBIC ACID 500 MG TABLET GT SCH (20:38)
[2020-01-11] MEDS: RIVAROXABAN 15 MG TABLET GT SCH (20:39)
[2020-01-12] MEDS: METOCLOPRAMIDE HCL 10 MG/10 ML UDC GT SCH ×5 (00:45→23:05)
[2020-01-12] MEDS: TWOCAL HN 1,000 ML LIQUID GT PRN (04:17)
[2020-01-12] MEDS: OMEPRAZOLE 20 MG CAPSULE.DR GT SCH (06:16)
[2020-01-12] MEDS: MULTIVIT, IRON, MIN NO. 8, FA TABLET GT SCH (06:16)
[2020-01-12] MEDS: BACLOFEN 20 MG TABLET GT SCH ×3 (06:16→21:10)
[2020-01-12 07:32] VITALS: BP 97/54
[2020-01-12] MEDS: COD LIVER OIL/ZINC OXIDE OINT 113 GM TUBE TP SCH ×2 (08:32→20:42)
[2020-01-12] MEDS: MIRALAX 17 GM POWD.PACK GT SCH (08:32)
[2020-01-12] MEDS: POTASSIUM CHLORIDE 40 MEQ/30 ML LIQUID UDC GT SCH (08:32)
[2020-01-12] MEDS: levETIRAcetam 500 MG/5 ML LIQUID UDC GT SCH ×2 (08:32→20:42)
[2020-01-12] MEDS: ACIDOPHILUS/BULGARICUS CHEW TAB GT SCH ×2 (08:32→20:42)
[2020-01-12] MEDS: DOCUSATE SODIUM 100 MG/10 ML LIQUID UDC GT SCH (08:32)
[2020-01-12] MEDS: HYDROGEN PEROXIDE 3% 118 ML BOTTLE TP SCH ×2 (09:00→21:35)
[2020-01-12 20:30] VITALS: BP 107/69
[2020-01-12] MEDS: RIVAROXABAN 15 MG TABLET GT SCH (20:33)
[2020-01-12] MEDS: MELATONIN 3 MG TABLET GT SCH (20:42)
[2020-01-12] MEDS: MAGNESIUM COMPLEX GT SCH (20:42)
[2020-01-12] MEDS: PROTEIN SUPPLEMENT (PROSTAT) 30 ML LIQUID GT SCH (20:42)
[2020-01-12] MEDS: NUTRISOURCE FIBER 4 GM PACKET GT SCH (20:42)
[2020-01-12] MEDS: CRANBERRY 500 MG GT SCH (20:42)
[2020-01-12] MEDS: ASCORBIC ACID 500 MG TABLET GT SCH (20:42)
[2020-01-13] MEDS: BACLOFEN 20 MG TABLET GT SCH ×3 (05:09→21:26)
[2020-01-13] MEDS: OMEPRAZOLE 20 MG CAPSULE.DR GT SCH (05:09)
[2020-01-13] MEDS: METOCLOPRAMIDE HCL 10 MG/10 ML UDC GT SCH ×4 (05:09→23:09)
[2020-01-13] MEDS: MULTIVIT, IRON, MIN NO. 8, FA TABLET GT SCH (05:09)
[2020-01-13 07:38] VITALS: BP 110/61
[2020-01-13] MEDS: DOCUSATE SODIUM 100 MG/10 ML LIQUID UDC GT SCH (08:56)
[2020-01-13] MEDS: ACIDOPHILUS/BULGARICUS CHEW TAB GT SCH ×2 (08:56→20:47)
[2020-01-13] MEDS: MIRALAX 17 GM POWD.PACK GT SCH (08:57)
[2020-01-13] MEDS: levETIRAcetam 500 MG/5 ML LIQUID UDC GT SCH ×2 (08:57→20:47)
[2020-01-13] MEDS: POTASSIUM CHLORIDE 40 MEQ/30 ML LIQUID UDC GT SCH (08:58)
[2020-01-13] MEDS: COD LIVER OIL/ZINC OXIDE OINT 113 GM TUBE TP SCH ×2 (08:59→20:48)
[2020-01-13] MEDS: HYDROGEN PEROXIDE 3% 118 ML BOTTLE TP SCH ×2 (10:10→21:15)
[2020-01-13 20:42] VITALS: BP 114/64
[2020-01-13] MEDS: MELATONIN 3 MG TABLET GT SCH (20:47)
[2020-01-13] MEDS: RIVAROXABAN 15 MG TABLET GT SCH (20:47)
[2020-01-13] MEDS: NUTRISOURCE FIBER 4 GM PACKET GT SCH (20:48)
[2020-01-13] MEDS: MAGNESIUM COMPLEX GT SCH (20:48)
[2020-01-13] MEDS: ASCORBIC ACID 500 MG TABLET GT SCH (20:48)
[2020-01-13] MEDS: CRANBERRY 500 MG GT SCH (20:48)
[2020-01-13] MEDS: PROTEIN SUPPLEMENT (PROSTAT) 30 ML LIQUID GT SCH (20:48)
[2020-01-14] MEDS: TWOCAL HN 1,000 ML LIQUID GT PRN (01:33)
[2020-01-14] MEDS: METOCLOPRAMIDE HCL 10 MG/10 ML UDC GT SCH ×4 (05:07→23:35)
[2020-01-14] MEDS: OMEPRAZOLE 20 MG CAPSULE.DR GT SCH (05:07)
[2020-01-14] MEDS: BACLOFEN 20 MG TABLET GT SCH ×3 (05:07→21:00)
[2020-01-14] MEDS: MULTIVIT, IRON, MIN NO. 8, FA TABLET GT SCH (05:07)
[2020-01-14] MEDS: HYDROGEN PEROXIDE 3% 118 ML BOTTLE TP SCH ×2 (07:23→21:19)
[2020-01-14 07:43] VITALS: BP 105/66
[2020-01-14] MEDS: POTASSIUM CHLORIDE 40 MEQ/30 ML LIQUID UDC GT SCH (09:00)
[2020-01-14] MEDS: COD LIVER OIL/ZINC OXIDE OINT 113 GM TUBE TP SCH ×2 (09:00→20:59)
[2020-01-14] MEDS: levETIRAcetam 500 MG/5 ML LIQUID UDC GT SCH ×2 (09:00→20:56)
[2020-01-14] MEDS: MIRALAX 17 GM POWD.PACK GT SCH (09:00)
[2020-01-14] MEDS: ACIDOPHILUS/BULGARICUS CHEW TAB GT SCH ×2 (09:00→20:56)
[2020-01-14] MEDS: DOCUSATE SODIUM 100 MG/10 ML LIQUID UDC GT SCH (09:00)
--- NOTE | 2020-01-14 17:55 | NUR ---
Pt v/s within normal parameter. No SOB or any respiratory distress at this time. Video chat provided with the family (father). Family expressed appreciation on the effort made by the staff.
[2020-01-14 20:31] VITALS: BP 101/67
[2020-01-14] MEDS: MELATONIN 3 MG TABLET GT SCH (20:56)
[2020-01-14] MEDS: MAGNESIUM COMPLEX GT SCH (20:56)
[2020-01-14] MEDS: NUTRISOURCE FIBER 4 GM PACKET GT SCH (20:56)
[2020-01-14] MEDS: CRANBERRY 500 MG GT SCH (20:56)
[2020-01-14] MEDS: PROTEIN SUPPLEMENT (PROSTAT) 30 ML LIQUID GT SCH (20:56)
[2020-01-14] MEDS: ASCORBIC ACID 500 MG TABLET GT SCH (20:56)
[2020-01-14] MEDS: RIVAROXABAN 15 MG TABLET GT SCH (20:57)
[2020-01-15] MEDS: MULTIVIT, IRON, MIN NO. 8, FA TABLET GT SCH (05:03)
[2020-01-15] MEDS: OMEPRAZOLE 20 MG CAPSULE.DR GT SCH (05:03)
[2020-01-15] MEDS: BACLOFEN 20 MG TABLET GT SCH ×3 (05:03→21:07)
[2020-01-15] MEDS: METOCLOPRAMIDE HCL 10 MG/10 ML UDC GT SCH ×4 (05:03→23:28)
[2020-01-15 07:45] VITALS: BP 98/48
[2020-01-15] MEDS: ACIDOPHILUS/BULGARICUS CHEW TAB GT SCH ×2 (08:40→21:06)
[2020-01-15] MEDS: DOCUSATE SODIUM 100 MG/10 ML LIQUID UDC GT SCH (08:40)
[2020-01-15] MEDS: POTASSIUM CHLORIDE 40 MEQ/30 ML LIQUID UDC GT SCH (08:40)
[2020-01-15] MEDS: levETIRAcetam 500 MG/5 ML LIQUID UDC GT SCH ×2 (08:40→21:06)
[2020-01-15] MEDS: MIRALAX 17 GM POWD.PACK GT SCH (08:40)
[2020-01-15] MEDS: COD LIVER OIL/ZINC OXIDE OINT 113 GM TUBE TP SCH ×2 (08:40→21:07)
[2020-01-15] MEDS: HYDROGEN PEROXIDE 3% 118 ML BOTTLE TP SCH ×2 (09:00→21:20)
--- NOTE | 2020-01-15 18:41 | NUR ---
Pt stable at this time with no respiratory distress. Video chat provided with the family (mother). Family member expressed appreciation on the effort made by the all the staff. She said " Thank you very much for all your effort".
[2020-01-15 20:00] VITALS: BP 109/63
[2020-01-15] MEDS: RIVAROXABAN 15 MG TABLET GT SCH (21:00)
[2020-01-15] MEDS: CRANBERRY 500 MG GT SCH (21:06)
[2020-01-15] MEDS: MELATONIN 3 MG TABLET GT SCH (21:06)
[2020-01-15] MEDS: MAGNESIUM COMPLEX GT SCH (21:07)
[2020-01-15] MEDS: PROTEIN SUPPLEMENT (PROSTAT) 30 ML LIQUID GT SCH (21:07)
[2020-01-15] MEDS: ASCORBIC ACID 500 MG TABLET GT SCH (21:07)
[2020-01-15] MEDS: NUTRISOURCE FIBER 4 GM PACKET GT SCH (21:07)
[2020-01-16] MEDS: METOCLOPRAMIDE HCL 10 MG/10 ML UDC GT SCH ×3 (06:24→17:23)
[2020-01-16] MEDS: MULTIVIT, IRON, MIN NO. 8, FA TABLET GT SCH (06:24)
[2020-01-16] MEDS: BACLOFEN 20 MG TABLET GT SCH ×3 (06:24→22:42)
[2020-01-16] MEDS: OMEPRAZOLE 20 MG CAPSULE.DR GT SCH (06:24)
[2020-01-16 07:29] VITALS: BP 90/55
[2020-01-16] MEDS: COD LIVER OIL/ZINC OXIDE OINT 113 GM TUBE TP SCH ×2 (08:14→20:49)
[2020-01-16] MEDS: DOCUSATE SODIUM 100 MG/10 ML LIQUID UDC GT SCH (08:14)
[2020-01-16] MEDS: POTASSIUM CHLORIDE 40 MEQ/30 ML LIQUID UDC GT SCH (08:14)
[2020-01-16] MEDS: MIRALAX 17 GM POWD.PACK GT SCH (08:14)
[2020-01-16] MEDS: ACIDOPHILUS/BULGARICUS CHEW TAB GT SCH ×2 (08:14→20:47)
[2020-01-16] MEDS: levETIRAcetam 500 MG/5 ML LIQUID UDC GT SCH ×2 (08:14→20:47)
[2020-01-16] MEDS: HYDROGEN PEROXIDE 3% 118 ML BOTTLE TP SCH ×2 (09:00→21:30)
--- NOTE | 2020-01-16 14:51 | NUR ---
INTERDISCIPLINARY PLAN OF CARE CONFERENCE was held today. Patient's sister Jeanne participated in the meeting through speaker phone. Dr. Cartagena and the Interdisciplinary Team reviewed the current plan of care in detail. RN reported on patient's medical condition. No major changes in condition were reported. See RN IDT conference notes. Physicial Therapy reported that PT services continue 5 x week, although patient's sessions will be adjusted to 3 x week starting next week. See all disciplines IDT notes and physician's progress notes for additional details. Jeanne's questions were addressed by the IDT team and Jeanne expressed being content with the current plan of care. Nursing storeroom supervisor Harmeet Sampson reminded Jeanne that daily video chat sessions with the patient should be limited to 3-5 minutes, and Jeanne expressed understanding.
[2020-01-16] MEDS: TWOCAL HN 1,000 ML LIQUID GT PRN (15:35)
--- NOTE | 2020-01-16 16:05 | NUR ---
Pt.'s vital signs are within normal parameters. Comfortable and no signs of any respiratory distress at this time. Video chat provided with the family(sister). Family expressed gratitude and appreciation about the effort of the entire staff.
--- NOTE | 2020-01-16 16:42 | NUR ---
Pharmacy Update from Today's 01/16/20 IDT Meeting: VS: Temp 97.8 BP 90/55 HR 56 LABS: (from 12/20/19) Wbc 8.8 H/H 13.8/40.9 Plt 208 Na 140 K 3.6 Cl 104 CO2 29 BUN/SCr 17/0.7 BS 86 ca 9.2 MEDICATION USE REVIEWED: > Pt not on any anti-psych medications > On Keppra 500mg q12h, last calculated CrCl was >100 ml/min. Renal fxn ok for current dosing. > On Xarelto 15mg daily, no bleeding noted, last plt 208 > On KCl 20meq daily, last K 3.6 > PRN MED USAGE: (December) Tylenol for pain used x1 Artificial tears used x0 Bisacodyl used x0 Mucinex DM used x0 NEW ORDERS NOTED: > Covid test 01/02 negative > Per Rx rec, routine labs for continue renal fxn monitoring for keppra ordered and resulted Pt was reviewed and discussed in depth with no medication issues noted per IDT staff. Family in attendance via conference call (d/t covid regulations) with no medication issues at this time. Rx reported routine labs resulted and wnl, no further recs at this time. Will continue to follow
[2020-01-16 20:00] VITALS: BP 102/71
[2020-01-16] MEDS: CRANBERRY 500 MG GT SCH (20:47)
[2020-01-16] MEDS: MELATONIN 3 MG TABLET GT SCH (20:47)
[2020-01-16] MEDS: ASCORBIC ACID 500 MG TABLET GT SCH (20:48)
[2020-01-16] MEDS: PROTEIN SUPPLEMENT (PROSTAT) 30 ML LIQUID GT SCH (20:48)
[2020-01-16] MEDS: NUTRISOURCE FIBER 4 GM PACKET GT SCH (20:48)
[2020-01-16] MEDS: MAGNESIUM COMPLEX GT SCH (20:48)
[2020-01-16] MEDS: RIVAROXABAN 15 MG TABLET GT SCH (20:49)
[2020-01-17] MEDS: METOCLOPRAMIDE HCL 10 MG/10 ML UDC GT SCH ×4 (00:51→17:22)
[2020-01-17] MEDS: BACLOFEN 20 MG TABLET GT SCH ×3 (05:47→21:13)
[2020-01-17] MEDS: OMEPRAZOLE 20 MG CAPSULE.DR GT SCH (05:47)
[2020-01-17] MEDS: MULTIVIT, IRON, MIN NO. 8, FA TABLET GT SCH (05:47)
[2020-01-17] MEDS: levETIRAcetam 500 MG/5 ML LIQUID UDC GT SCH ×2 (09:45→21:07)
[2020-01-17] MEDS: ACIDOPHILUS/BULGARICUS CHEW TAB GT SCH ×2 (09:45→21:07)
[2020-01-17] MEDS: DOCUSATE SODIUM 100 MG/10 ML LIQUID UDC GT SCH (09:45)
[2020-01-17] MEDS: MIRALAX 17 GM POWD.PACK GT SCH (09:46)
[2020-01-17] MEDS: COD LIVER OIL/ZINC OXIDE OINT 113 GM TUBE TP SCH ×2 (09:47→21:13)
[2020-01-17] MEDS: POTASSIUM CHLORIDE 40 MEQ/30 ML LIQUID UDC GT SCH (09:47)
[2020-01-17] MEDS: HYDROGEN PEROXIDE 3% 118 ML BOTTLE TP SCH ×2 (10:10→21:41)
[2020-01-17 20:00] VITALS: BP 119/78
[2020-01-17] MEDS: MELATONIN 3 MG TABLET GT SCH (21:09)
[2020-01-17] MEDS: CRANBERRY 500 MG GT SCH (21:10)
[2020-01-17] MEDS: MAGNESIUM COMPLEX GT SCH (21:11)
[2020-01-17] MEDS: PROTEIN SUPPLEMENT (PROSTAT) 30 ML LIQUID GT SCH (21:11)
[2020-01-17] MEDS: NUTRISOURCE FIBER 4 GM PACKET GT SCH (21:11)
[2020-01-17] MEDS: ASCORBIC ACID 500 MG TABLET GT SCH (21:12)
[2020-01-17] MEDS: RIVAROXABAN 15 MG TABLET GT SCH (21:13)
[2020-01-18] MEDS: METOCLOPRAMIDE HCL 10 MG/10 ML UDC GT SCH ×4 (00:17→17:31)
[2020-01-18] MEDS: TWOCAL HN 1,000 ML LIQUID GT PRN (05:00)
[2020-01-18] MEDS: BACLOFEN 20 MG TABLET GT SCH ×3 (05:44→21:09)
[2020-01-18] MEDS: OMEPRAZOLE 20 MG CAPSULE.DR GT SCH (05:44)
[2020-01-18] MEDS: MULTIVIT, IRON, MIN NO. 8, FA TABLET GT SCH (05:44)
[2020-01-18 07:34] VITALS: BP 110/68
[2020-01-18] MEDS: ACIDOPHILUS/BULGARICUS CHEW TAB GT SCH ×2 (08:31→21:06)
[2020-01-18] MEDS: levETIRAcetam 500 MG/5 ML LIQUID UDC GT SCH ×2 (08:31→21:07)
[2020-01-18] MEDS: DOCUSATE SODIUM 100 MG/10 ML LIQUID UDC GT SCH (08:31)
[2020-01-18] MEDS: POTASSIUM CHLORIDE 40 MEQ/30 ML LIQUID UDC GT SCH (08:32)
[2020-01-18] MEDS: COD LIVER OIL/ZINC OXIDE OINT 113 GM TUBE TP SCH ×2 (08:33→21:08)
[2020-01-18] MEDS: MIRALAX 17 GM POWD.PACK GT SCH (08:39)
[2020-01-18] MEDS: HYDROGEN PEROXIDE 3% 118 ML BOTTLE TP SCH ×2 (09:00→21:24)
[2020-01-18 20:00] VITALS: BP 118/77
[2020-01-18] MEDS: RIVAROXABAN 15 MG TABLET GT SCH (21:00)
[2020-01-18] MEDS: MAGNESIUM COMPLEX GT SCH (21:07)
[2020-01-18] MEDS: ASCORBIC ACID 500 MG TABLET GT SCH (21:07)
[2020-01-18] MEDS: PROTEIN SUPPLEMENT (PROSTAT) 30 ML LIQUID GT SCH (21:07)
[2020-01-18] MEDS: NUTRISOURCE FIBER 4 GM PACKET GT SCH (21:07)
[2020-01-18] MEDS: MELATONIN 3 MG TABLET GT SCH (21:07)
[2020-01-18] MEDS: CRANBERRY 500 MG GT SCH (21:07)
[2020-01-19] MEDS: METOCLOPRAMIDE HCL 10 MG/10 ML UDC GT SCH ×4 (00:17→17:38)
[2020-01-19] MEDS: BACLOFEN 20 MG TABLET GT SCH ×3 (05:53→21:14)
[2020-01-19] MEDS: MULTIVIT, IRON, MIN NO. 8, FA TABLET GT SCH (05:54)
[2020-01-19] MEDS: OMEPRAZOLE 20 MG CAPSULE.DR GT SCH (05:54)
[2020-01-19 07:48] VITALS: BP 113/68
[2020-01-19] MEDS: POTASSIUM CHLORIDE 40 MEQ/30 ML LIQUID UDC GT SCH (08:32)
[2020-01-19] MEDS: levETIRAcetam 500 MG/5 ML LIQUID UDC GT SCH ×2 (08:32→21:13)
[2020-01-19] MEDS: ACIDOPHILUS/BULGARICUS CHEW TAB GT SCH ×2 (08:32→21:13)
[2020-01-19] MEDS: MIRALAX 17 GM POWD.PACK GT SCH (08:32)
[2020-01-19] MEDS: DOCUSATE SODIUM 100 MG/10 ML LIQUID UDC GT SCH (08:32)
[2020-01-19] MEDS: COD LIVER OIL/ZINC OXIDE OINT 113 GM TUBE TP SCH ×2 (08:33→21:14)
[2020-01-19] MEDS: HYDROGEN PEROXIDE 3% 118 ML BOTTLE TP SCH ×2 (09:07→21:50)
[2020-01-19] MEDS: RIVAROXABAN 15 MG TABLET GT SCH (21:00)
[2020-01-19] MEDS: NUTRISOURCE FIBER 4 GM PACKET GT SCH (21:13)
[2020-01-19] MEDS: CRANBERRY 500 MG GT SCH (21:13)
[2020-01-19] MEDS: ASCORBIC ACID 500 MG TABLET GT SCH (21:13)
[2020-01-19] MEDS: MAGNESIUM COMPLEX GT SCH (21:13)
[2020-01-19] MEDS: PROTEIN SUPPLEMENT (PROSTAT) 30 ML LIQUID GT SCH (21:13)
[2020-01-19] MEDS: MELATONIN 3 MG TABLET GT SCH (21:13)
[2020-01-19 23:21] VITALS: BP 109/67
[2020-01-20] MEDS: METOCLOPRAMIDE HCL 10 MG/10 ML UDC GT SCH ×5 (00:30→23:41)
[2020-01-20] MEDS: BACLOFEN 20 MG TABLET GT SCH ×3 (06:57→22:30)
[2020-01-20] MEDS: MULTIVIT, IRON, MIN NO. 8, FA TABLET GT SCH (06:57)
[2020-01-20] MEDS: OMEPRAZOLE 20 MG CAPSULE.DR GT SCH (06:57)
[2020-01-20 07:51] VITALS: BP 92/50
[2020-01-20] MEDS: DOCUSATE SODIUM 100 MG/10 ML LIQUID UDC GT SCH (08:45)
[2020-01-20] MEDS: levETIRAcetam 500 MG/5 ML LIQUID UDC GT SCH ×2 (08:46→20:27)
[2020-01-20] MEDS: COD LIVER OIL/ZINC OXIDE OINT 113 GM TUBE TP SCH ×2 (08:46→20:31)
[2020-01-20] MEDS: POTASSIUM CHLORIDE 40 MEQ/30 ML LIQUID UDC GT SCH (08:46)
[2020-01-20] MEDS: ACIDOPHILUS/BULGARICUS CHEW TAB GT SCH ×2 (08:46→20:27)
[2020-01-20] MEDS: MIRALAX 17 GM POWD.PACK GT SCH (08:46)
[2020-01-20] MEDS: HYDROGEN PEROXIDE 3% 118 ML BOTTLE TP SCH ×2 (08:47→21:54)
[2020-01-20] MEDS: TWOCAL HN 1,000 ML LIQUID GT PRN (13:23)
[2020-01-20] MEDS: MAGNESIUM COMPLEX GT SCH (20:28)
[2020-01-20] MEDS: CRANBERRY 500 MG GT SCH (20:28)
[2020-01-20] MEDS: MELATONIN 3 MG TABLET GT SCH (20:28)
[2020-01-20] MEDS: ASCORBIC ACID 500 MG TABLET GT SCH (20:29)
[2020-01-20] MEDS: NUTRISOURCE FIBER 4 GM PACKET GT SCH (20:29)
[2020-01-20] MEDS: PROTEIN SUPPLEMENT (PROSTAT) 30 ML LIQUID GT SCH (20:29)
[2020-01-20] MEDS: RIVAROXABAN 15 MG TABLET GT SCH (20:31)
[2020-01-20 22:59] VITALS: BP 107/70
[2020-01-21] MEDS: BACLOFEN 20 MG TABLET GT SCH ×3 (05:22→21:17)
[2020-01-21] MEDS: METOCLOPRAMIDE HCL 10 MG/10 ML UDC GT SCH ×3 (05:23→17:13)
[2020-01-21] MEDS: MULTIVIT, IRON, MIN NO. 8, FA TABLET GT SCH (05:23)
[2020-01-21] MEDS: OMEPRAZOLE 20 MG CAPSULE.DR GT SCH (05:23)
[2020-01-21 07:46] VITALS: BP 91/58
[2020-01-21] MEDS: HYDROGEN PEROXIDE 3% 118 ML BOTTLE TP SCH ×2 (08:37→21:38)
[2020-01-21] MEDS: POTASSIUM CHLORIDE 40 MEQ/30 ML LIQUID UDC GT SCH (08:40)
[2020-01-21] MEDS: DOCUSATE SODIUM 100 MG/10 ML LIQUID UDC GT SCH (08:40)
[2020-01-21] MEDS: MIRALAX 17 GM POWD.PACK GT SCH (08:40)
[2020-01-21] MEDS: levETIRAcetam 500 MG/5 ML LIQUID UDC GT SCH ×2 (08:40→20:51)
[2020-01-21] MEDS: ACIDOPHILUS/BULGARICUS CHEW TAB GT SCH ×2 (08:40→20:51)
[2020-01-21] MEDS: COD LIVER OIL/ZINC OXIDE OINT 113 GM TUBE TP SCH ×2 (08:41→20:52)
--- NOTE | 2020-01-21 10:00 | NUR ---
Provided video chat to pt. and her father with no problem noted.Kept pt. clean and comfortable no signs of pain or distress noted.
[2020-01-21] MEDS: NUTRISOURCE FIBER 4 GM PACKET GT SCH (20:52)
[2020-01-21] MEDS: CRANBERRY 500 MG GT SCH (20:52)
[2020-01-21] MEDS: PROTEIN SUPPLEMENT (PROSTAT) 30 ML LIQUID GT SCH (20:52)
[2020-01-21] MEDS: MELATONIN 3 MG TABLET GT SCH (20:52)
[2020-01-21] MEDS: ASCORBIC ACID 500 MG TABLET GT SCH (20:52)
[2020-01-21] MEDS: MAGNESIUM COMPLEX GT SCH (20:52)
[2020-01-21] MEDS: RIVAROXABAN 15 MG TABLET GT SCH (20:54)
[2020-01-21 23:44] VITALS: BP 123/80
[2020-01-22] MEDS: METOCLOPRAMIDE HCL 10 MG/10 ML UDC GT SCH ×5 (00:02→23:13)
[2020-01-22] MEDS: OMEPRAZOLE 20 MG CAPSULE.DR GT SCH (05:00)
[2020-01-22] MEDS: BACLOFEN 20 MG TABLET GT SCH ×3 (05:00→22:43)
[2020-01-22] MEDS: MULTIVIT, IRON, MIN NO. 8, FA TABLET GT SCH (05:00)
[2020-01-22] MEDS: TWOCAL HN 1,000 ML LIQUID GT PRN (06:41)
[2020-01-22 07:37] VITALS: BP 112/70
[2020-01-22] MEDS: HYDROGEN PEROXIDE 3% 118 ML BOTTLE TP SCH ×2 (09:30→21:49)
[2020-01-22] MEDS: ACIDOPHILUS/BULGARICUS CHEW TAB GT SCH ×2 (09:39→20:32)
[2020-01-22] MEDS: DOCUSATE SODIUM 100 MG/10 ML LIQUID UDC GT SCH (09:39)
[2020-01-22] MEDS: levETIRAcetam 500 MG/5 ML LIQUID UDC GT SCH ×2 (09:40→20:32)
[2020-01-22] MEDS: MIRALAX 17 GM POWD.PACK GT SCH (09:43)
[2020-01-22] MEDS: POTASSIUM CHLORIDE 40 MEQ/30 ML LIQUID UDC GT SCH (09:44)
[2020-01-22] MEDS: COD LIVER OIL/ZINC OXIDE OINT 113 GM TUBE TP SCH ×2 (09:45→20:35)
--- NOTE | 2020-01-22 18:15 | NUR ---
SEEN BY [place] Trotter AND DR. CRUZ AND WITH NNO.
[2020-01-22] MEDS: RIVAROXABAN 15 MG TABLET GT SCH (20:30)
[2020-01-22] MEDS: MAGNESIUM COMPLEX GT SCH (20:34)
[2020-01-22] MEDS: MELATONIN 3 MG TABLET GT SCH (20:34)
[2020-01-22] MEDS: CRANBERRY 500 MG GT SCH (20:34)
[2020-01-22] MEDS: ASCORBIC ACID 500 MG TABLET GT SCH (20:34)
[2020-01-22] MEDS: PROTEIN SUPPLEMENT (PROSTAT) 30 ML LIQUID GT SCH (20:34)
[2020-01-22] MEDS: NUTRISOURCE FIBER 4 GM PACKET GT SCH (20:34)
[2020-01-22 20:41] VITALS: BP 106/68
[2020-01-23] MEDS: BACLOFEN 20 MG TABLET GT SCH ×3 (05:47→21:55)
[2020-01-23] MEDS: METOCLOPRAMIDE HCL 10 MG/10 ML UDC GT SCH ×3 (05:47→18:06)
[2020-01-23] MEDS: MULTIVIT, IRON, MIN NO. 8, FA TABLET GT SCH (05:47)
[2020-01-23] MEDS: OMEPRAZOLE 20 MG CAPSULE.DR GT SCH (05:47)
[2020-01-23 07:55] VITALS: BP 90/45
[2020-01-23] MEDS: levETIRAcetam 500 MG/5 ML LIQUID UDC GT SCH ×2 (08:40→20:32)
[2020-01-23] MEDS: ACIDOPHILUS/BULGARICUS CHEW TAB GT SCH ×2 (08:40→20:29)
[2020-01-23] MEDS: DOCUSATE SODIUM 100 MG/10 ML LIQUID UDC GT SCH (08:40)
[2020-01-23] MEDS: MIRALAX 17 GM POWD.PACK GT SCH (08:41)
[2020-01-23] MEDS: POTASSIUM CHLORIDE 40 MEQ/30 ML LIQUID UDC GT SCH (08:41)
[2020-01-23] MEDS: COD LIVER OIL/ZINC OXIDE OINT 113 GM TUBE TP SCH ×2 (08:43→20:35)
[2020-01-23] MEDS: HYDROGEN PEROXIDE 3% 118 ML BOTTLE TP SCH ×2 (09:53→21:04)
--- NOTE | 2020-01-23 13:30 | NUR ---
pt in room up on w/c assisted with video chat with pt's sister at this time.
[2020-01-23 20:04] VITALS: BP 102/59
[2020-01-23] MEDS: RIVAROXABAN 15 MG TABLET GT SCH (20:28)
[2020-01-23] MEDS: MELATONIN 3 MG TABLET GT SCH (20:32)
[2020-01-23] MEDS: CRANBERRY 500 MG GT SCH (20:33)
[2020-01-23] MEDS: MAGNESIUM COMPLEX GT SCH (20:33)
[2020-01-23] MEDS: NUTRISOURCE FIBER 4 GM PACKET GT SCH (20:33)
[2020-01-23] MEDS: ASCORBIC ACID 500 MG TABLET GT SCH (20:34)
[2020-01-23] MEDS: PROTEIN SUPPLEMENT (PROSTAT) 30 ML LIQUID GT SCH (20:34)
[2020-01-24] MEDS: METOCLOPRAMIDE HCL 10 MG/10 ML UDC GT SCH ×4 (00:50→18:00)
[2020-01-24] MEDS: OMEPRAZOLE 20 MG CAPSULE.DR GT SCH (05:42)
[2020-01-24] MEDS: BACLOFEN 20 MG TABLET GT SCH ×3 (05:42→21:30)
[2020-01-24] MEDS: MULTIVIT, IRON, MIN NO. 8, FA TABLET GT SCH (05:42)
[2020-01-24 07:43] VITALS: BP 117/60
[2020-01-24] MEDS: ACIDOPHILUS/BULGARICUS CHEW TAB GT SCH ×2 (08:20→20:22)
[2020-01-24] MEDS: DOCUSATE SODIUM 100 MG/10 ML LIQUID UDC GT SCH (08:20)
[2020-01-24] MEDS: levETIRAcetam 500 MG/5 ML LIQUID UDC GT SCH ×2 (08:20→20:22)
[2020-01-24] MEDS: MIRALAX 17 GM POWD.PACK GT SCH (08:22)
[2020-01-24] MEDS: COD LIVER OIL/ZINC OXIDE OINT 113 GM TUBE TP SCH ×2 (08:22→20:24)
[2020-01-24] MEDS: POTASSIUM CHLORIDE 40 MEQ/30 ML LIQUID UDC GT SCH (08:22)
[2020-01-24] MEDS: HYDROGEN PEROXIDE 3% 118 ML BOTTLE TP SCH ×2 (09:08→21:03)
[2020-01-24] MEDS: TWOCAL HN 1,000 ML LIQUID GT PRN (14:35)
--- NOTE | 2020-01-24 16:15 | NUR ---
Assisted video chat with pt's father, Abdi at this time.
[2020-01-24 20:00] VITALS: BP 103/58
[2020-01-24] MEDS: PROTEIN SUPPLEMENT (PROSTAT) 30 ML LIQUID GT SCH (20:23)
[2020-01-24] MEDS: MAGNESIUM COMPLEX GT SCH (20:23)
[2020-01-24] MEDS: NUTRISOURCE FIBER 4 GM PACKET GT SCH (20:23)
[2020-01-24] MEDS: MELATONIN 3 MG TABLET GT SCH (20:23)
[2020-01-24] MEDS: CRANBERRY 500 MG GT SCH (20:23)
[2020-01-24] MEDS: ASCORBIC ACID 500 MG TABLET GT SCH (20:23)
[2020-01-24] MEDS: RIVAROXABAN 15 MG TABLET GT SCH (21:26)
[2020-01-25] MEDS: METOCLOPRAMIDE HCL 10 MG/10 ML UDC GT SCH ×4 (00:02→17:10)
[2020-01-25] MEDS: OMEPRAZOLE 20 MG CAPSULE.DR GT SCH (06:41)
[2020-01-25] MEDS: BACLOFEN 20 MG TABLET GT SCH ×3 (06:41→21:07)
[2020-01-25] MEDS: MULTIVIT, IRON, MIN NO. 8, FA TABLET GT SCH (06:41)
[2020-01-25 07:36] VITALS: BP 124/63
[2020-01-25] MEDS: MIRALAX 17 GM POWD.PACK GT SCH (08:27)
[2020-01-25] MEDS: COD LIVER OIL/ZINC OXIDE OINT 113 GM TUBE TP SCH ×2 (08:27→20:45)
[2020-01-25] MEDS: ACIDOPHILUS/BULGARICUS CHEW TAB GT SCH ×2 (08:27→20:44)
[2020-01-25] MEDS: DOCUSATE SODIUM 100 MG/10 ML LIQUID UDC GT SCH (08:27)
[2020-01-25] MEDS: POTASSIUM CHLORIDE 40 MEQ/30 ML LIQUID UDC GT SCH (08:27)
[2020-01-25] MEDS: levETIRAcetam 500 MG/5 ML LIQUID UDC GT SCH ×2 (08:27→20:44)
[2020-01-25] MEDS: HYDROGEN PEROXIDE 3% 118 ML BOTTLE TP SCH ×2 (08:49→21:11)
[2020-01-25 20:35] VITALS: BP 99/63
[2020-01-25] MEDS: MELATONIN 3 MG TABLET GT SCH (20:44)
[2020-01-25] MEDS: CRANBERRY 500 MG GT SCH (20:45)
[2020-01-25] MEDS: ASCORBIC ACID 500 MG TABLET GT SCH (20:45)
[2020-01-25] MEDS: PROTEIN SUPPLEMENT (PROSTAT) 30 ML LIQUID GT SCH (20:45)
[2020-01-25] MEDS: MAGNESIUM COMPLEX GT SCH (20:45)
[2020-01-25] MEDS: NUTRISOURCE FIBER 4 GM PACKET GT SCH (20:45)
[2020-01-25] MEDS: RIVAROXABAN 15 MG TABLET GT SCH (21:07)
[2020-01-26] MEDS: METOCLOPRAMIDE HCL 10 MG/10 ML UDC GT SCH ×4 (00:59→17:12)
--- NOTE | 2020-01-26 01:30 | NUR ---
GT ACCIDENTALLY OUT NOTED BALLOON IS BURST.UNABLE REINSERT GT #[id number] .NOTIFIED BRISA LEGER ACCOUNTING CONSULTANT GROUTMAN WITH NEW ORDERED .REINSERT GT#18 /6ML AND KUB ORDERED FOR GT PLACEMENT.SMALL AMOUNT OF BLEEDING AT GT SITE AND MONITOR FOR PAIN .KEEP CLEAN AND DRY AT GT SITE.
[2020-01-26] MEDS: TWOCAL HN 1,000 ML LIQUID GT PRN (04:48)
[2020-01-26] MEDS: MULTIVIT, IRON, MIN NO. 8, FA TABLET GT SCH (06:17)
[2020-01-26] MEDS: BACLOFEN 20 MG TABLET GT SCH ×3 (06:17→21:07)
[2020-01-26] MEDS: OMEPRAZOLE 20 MG CAPSULE.DR GT SCH (06:17)
[2020-01-26 07:55] VITALS: BP 91/63
[2020-01-26] MEDS: levETIRAcetam 500 MG/5 ML LIQUID UDC GT SCH ×2 (08:29→21:07)
[2020-01-26] MEDS: MIRALAX 17 GM POWD.PACK GT SCH (08:29)
[2020-01-26] MEDS: COD LIVER OIL/ZINC OXIDE OINT 113 GM TUBE TP SCH ×2 (08:29→21:07)
[2020-01-26] MEDS: POTASSIUM CHLORIDE 40 MEQ/30 ML LIQUID UDC GT SCH (08:29)
[2020-01-26] MEDS: DOCUSATE SODIUM 100 MG/10 ML LIQUID UDC GT SCH (08:29)
[2020-01-26] MEDS: ACIDOPHILUS/BULGARICUS CHEW TAB GT SCH ×2 (08:29→21:07)
[2020-01-26] MEDS: HYDROGEN PEROXIDE 3% 118 ML BOTTLE TP SCH ×2 (09:00→21:00)
--- NOTE | 2020-01-26 12:37 | NUR ---
ZOOM MEETING PROVIDED TO PT'S SISTER, FRENCH.
[2020-01-26 20:31] VITALS: BP 114/68
[2020-01-26] MEDS: CRANBERRY 500 MG GT SCH (21:07)
[2020-01-26] MEDS: NUTRISOURCE FIBER 4 GM PACKET GT SCH (21:07)
[2020-01-26] MEDS: ASCORBIC ACID 500 MG TABLET GT SCH (21:07)
[2020-01-26] MEDS: MAGNESIUM COMPLEX GT SCH (21:07)
[2020-01-26] MEDS: PROTEIN SUPPLEMENT (PROSTAT) 30 ML LIQUID GT SCH (21:07)
[2020-01-26] MEDS: MELATONIN 3 MG TABLET GT SCH (21:07)
[2020-01-26] MEDS: RIVAROXABAN 15 MG TABLET GT SCH (21:18)
[2020-01-27] MEDS: MULTIVIT, IRON, MIN NO. 8, FA TABLET GT SCH (05:53)
[2020-01-27] MEDS: OMEPRAZOLE 20 MG CAPSULE.DR GT SCH (05:53)
[2020-01-27] MEDS: BACLOFEN 20 MG TABLET GT SCH ×3 (05:53→21:38)
[2020-01-27] MEDS: METOCLOPRAMIDE HCL 10 MG/10 ML UDC GT SCH ×4 (05:53→17:05)
[2020-01-27 08:18] VITALS: BP 116/74
[2020-01-27] MEDS: DOCUSATE SODIUM 100 MG/10 ML LIQUID UDC GT SCH (08:19)
[2020-01-27] MEDS: ACIDOPHILUS/BULGARICUS CHEW TAB GT SCH ×2 (08:19→21:37)
[2020-01-27] MEDS: levETIRAcetam 500 MG/5 ML LIQUID UDC GT SCH ×2 (08:20→21:37)
[2020-01-27] MEDS: MIRALAX 17 GM POWD.PACK GT SCH (08:21)
[2020-01-27] MEDS: POTASSIUM CHLORIDE 40 MEQ/30 ML LIQUID UDC GT SCH (08:21)
[2020-01-27] MEDS: COD LIVER OIL/ZINC OXIDE OINT 113 GM TUBE TP SCH ×2 (08:22→21:38)
[2020-01-27] MEDS: HYDROGEN PEROXIDE 3% 118 ML BOTTLE TP SCH ×2 (10:20→21:39)
--- NOTE | 2020-01-27 15:20 | NUR ---
VIDEO CHAT DONE WITH PT'S MOTHER JAY AT THIS TIME. Addendum: 01/27/20 at 1836 by KIM MEJIA LVN CHARTING ERROR. CHARTED ON WRONG PATIENT.
--- NOTE | 2020-01-27 15:40 | NUR ---
VIDEO CHAT DONE WITH PT'S MOTHER AT THIS TIME.
--- NOTE | 2020-01-27 16:00 | NUR ---
new orders for warm compresses to R upper eyelid every 4 hours until stye resolves.carried out.
[2020-01-27] MEDS: BISACODYL 10 MG SUPP.RECT RC PRN (18:49)
[2020-01-27] MEDS: NUTRISOURCE FIBER 4 GM PACKET GT SCH (21:37)
[2020-01-27] MEDS: MELATONIN 3 MG TABLET GT SCH (21:37)
[2020-01-27] MEDS: PROTEIN SUPPLEMENT (PROSTAT) 30 ML LIQUID GT SCH (21:37)
[2020-01-27] MEDS: MAGNESIUM COMPLEX GT SCH (21:37)
[2020-01-27] MEDS: ASCORBIC ACID 500 MG TABLET GT SCH (21:37)
[2020-01-27] MEDS: CRANBERRY 500 MG GT SCH (21:37)
[2020-01-27] MEDS: RIVAROXABAN 15 MG TABLET GT SCH (22:01)
[2020-01-27 22:51] VITALS: BP 104/65
[2020-01-28] MEDS: METOCLOPRAMIDE HCL 10 MG/10 ML UDC GT SCH ×4 (00:19→17:09)
[2020-01-28] MEDS: TWOCAL HN 1,000 ML LIQUID GT PRN (02:06)
[2020-01-28] MEDS: OMEPRAZOLE 20 MG CAPSULE.DR GT SCH (05:55)
[2020-01-28] MEDS: BACLOFEN 20 MG TABLET GT SCH ×3 (05:55→21:53)
[2020-01-28] MEDS: MULTIVIT, IRON, MIN NO. 8, FA TABLET GT SCH (05:55)
[2020-01-28 07:41] VITALS: BP 111/60
[2020-01-28] MEDS: POTASSIUM CHLORIDE 40 MEQ/30 ML LIQUID UDC GT SCH (09:10)
[2020-01-28] MEDS: levETIRAcetam 500 MG/5 ML LIQUID UDC GT SCH ×2 (09:10→21:52)
[2020-01-28] MEDS: ACIDOPHILUS/BULGARICUS CHEW TAB GT SCH ×2 (09:10→21:52)
[2020-01-28] MEDS: DOCUSATE SODIUM 100 MG/10 ML LIQUID UDC GT SCH (09:10)
[2020-01-28] MEDS: COD LIVER OIL/ZINC OXIDE OINT 113 GM TUBE TP SCH ×2 (09:10→21:53)
[2020-01-28] MEDS: MIRALAX 17 GM POWD.PACK GT SCH (09:10)
[2020-01-28] MEDS: HYDROGEN PEROXIDE 3% 118 ML BOTTLE TP SCH ×2 (09:30→21:26)
[2020-01-28] MEDS: RIVAROXABAN 15 MG TABLET GT SCH (21:00)
[2020-01-28] MEDS: NUTRISOURCE FIBER 4 GM PACKET GT SCH (21:52)
[2020-01-28] MEDS: MELATONIN 3 MG TABLET GT SCH (21:52)
[2020-01-28] MEDS: MAGNESIUM COMPLEX GT SCH (21:52)
[2020-01-28] MEDS: CRANBERRY 500 MG GT SCH (21:52)
[2020-01-28] MEDS: ASCORBIC ACID 500 MG TABLET GT SCH (21:53)
[2020-01-28] MEDS: PROTEIN SUPPLEMENT (PROSTAT) 30 ML LIQUID GT SCH (21:53)
[2020-01-28 23:22] VITALS: BP 100/58
[2020-01-29] MEDS: METOCLOPRAMIDE HCL 10 MG/10 ML UDC GT SCH ×4 (00:20→17:32)
[2020-01-29] MEDS: BACLOFEN 20 MG TABLET GT SCH ×3 (06:16→21:45)
[2020-01-29] MEDS: OMEPRAZOLE 20 MG CAPSULE.DR GT SCH (06:16)
[2020-01-29] MEDS: MULTIVIT, IRON, MIN NO. 8, FA TABLET GT SCH (06:16)
[2020-01-29 07:36] VITALS: BP 90/46
[2020-01-29] MEDS: POTASSIUM CHLORIDE 40 MEQ/30 ML LIQUID UDC GT SCH (08:42)
[2020-01-29] MEDS: COD LIVER OIL/ZINC OXIDE OINT 113 GM TUBE TP SCH ×2 (08:42→21:45)
[2020-01-29] MEDS: ACIDOPHILUS/BULGARICUS CHEW TAB GT SCH ×2 (08:42→21:44)
[2020-01-29] MEDS: levETIRAcetam 500 MG/5 ML LIQUID UDC GT SCH ×2 (08:42→21:44)
[2020-01-29] MEDS: MIRALAX 17 GM POWD.PACK GT SCH (08:42)
[2020-01-29] MEDS: DOCUSATE SODIUM 100 MG/10 ML LIQUID UDC GT SCH (08:42)
[2020-01-29] MEDS: HYDROGEN PEROXIDE 3% 118 ML BOTTLE TP SCH ×2 (09:32→21:01)
--- NOTE | 2020-01-29 17:00 | NUR ---
Provided video chat to pt. and her mother with no problem, pt remains comfortable no signs of pain and discomfort at this time.
[2020-01-29 20:42] VITALS: BP 97/55
[2020-01-29] MEDS: RIVAROXABAN 15 MG TABLET GT SCH (21:36)
[2020-01-29] MEDS: CRANBERRY 500 MG GT SCH (21:45)
[2020-01-29] MEDS: MAGNESIUM COMPLEX GT SCH (21:45)
[2020-01-29] MEDS: MELATONIN 3 MG TABLET GT SCH (21:45)
[2020-01-29] MEDS: PROTEIN SUPPLEMENT (PROSTAT) 30 ML LIQUID GT SCH (21:45)
[2020-01-29] MEDS: NUTRISOURCE FIBER 4 GM PACKET GT SCH (21:45)
[2020-01-29] MEDS: ASCORBIC ACID 500 MG TABLET GT SCH (21:45)
[2020-01-30] MEDS: METOCLOPRAMIDE HCL 10 MG/10 ML UDC GT SCH ×4 (00:16→17:30)
[2020-01-30] MEDS: MULTIVIT, IRON, MIN NO. 8, FA TABLET GT SCH (06:41)
[2020-01-30] MEDS: BACLOFEN 20 MG TABLET GT SCH ×3 (06:41→22:17)
[2020-01-30] MEDS: OMEPRAZOLE 20 MG CAPSULE.DR GT SCH (06:41)
[2020-01-30 07:39] VITALS: BP 90/47
[2020-01-30] MEDS: POTASSIUM CHLORIDE 40 MEQ/30 ML LIQUID UDC GT SCH (09:09)
[2020-01-30] MEDS: MIRALAX 17 GM POWD.PACK GT SCH (09:09)
[2020-01-30] MEDS: DOCUSATE SODIUM 100 MG/10 ML LIQUID UDC GT SCH (09:09)
[2020-01-30] MEDS: ACIDOPHILUS/BULGARICUS CHEW TAB GT SCH ×2 (09:09→20:26)
[2020-01-30] MEDS: COD LIVER OIL/ZINC OXIDE OINT 113 GM TUBE TP SCH ×2 (09:09→20:31)
[2020-01-30] MEDS: levETIRAcetam 500 MG/5 ML LIQUID UDC GT SCH ×2 (09:09→20:26)
[2020-01-30] MEDS: HYDROGEN PEROXIDE 3% 118 ML BOTTLE TP SCH ×2 (09:52→21:01)
--- NOTE | 2020-01-30 15:15 | NUR ---
Provided video chat to pt and her sister with no problem , kept pt. clean and comfortable all needs attended and anticipated.
[2020-01-30 20:16] VITALS: BP 105/57
[2020-01-30] MEDS: MELATONIN 3 MG TABLET GT SCH (20:26)
[2020-01-30] MEDS: MAGNESIUM COMPLEX GT SCH (20:27)
[2020-01-30] MEDS: CRANBERRY 500 MG GT SCH (20:27)
[2020-01-30] MEDS: NUTRISOURCE FIBER 4 GM PACKET GT SCH (20:28)
[2020-01-30] MEDS: PROTEIN SUPPLEMENT (PROSTAT) 30 ML LIQUID GT SCH (20:28)
[2020-01-30] MEDS: ASCORBIC ACID 500 MG TABLET GT SCH (20:30)
[2020-01-30] MEDS: RIVAROXABAN 15 MG TABLET GT SCH (20:31)
[2020-01-31] MEDS: METOCLOPRAMIDE HCL 10 MG/10 ML UDC GT SCH ×5 (00:31→23:16)
[2020-01-31] MEDS: BACLOFEN 20 MG TABLET GT SCH ×3 (06:01→22:02)
[2020-01-31] MEDS: OMEPRAZOLE 20 MG CAPSULE.DR GT SCH (06:01)
[2020-01-31] MEDS: MULTIVIT, IRON, MIN NO. 8, FA TABLET GT SCH (06:01)
[2020-01-31 07:51] VITALS: BP 90/45
[2020-01-31] MEDS: DOCUSATE SODIUM 100 MG/10 ML LIQUID UDC GT SCH (09:49)
[2020-01-31] MEDS: levETIRAcetam 500 MG/5 ML LIQUID UDC GT SCH ×2 (09:50→20:13)
[2020-01-31] MEDS: ACIDOPHILUS/BULGARICUS CHEW TAB GT SCH ×2 (09:50→20:12)
[2020-01-31] MEDS: MIRALAX 17 GM POWD.PACK GT SCH (09:51)
[2020-01-31] MEDS: POTASSIUM CHLORIDE 40 MEQ/30 ML LIQUID UDC GT SCH (09:51)
[2020-01-31] MEDS: COD LIVER OIL/ZINC OXIDE OINT 113 GM TUBE TP SCH ×2 (09:52→20:19)
[2020-01-31] MEDS: HYDROGEN PEROXIDE 3% 118 ML BOTTLE TP SCH ×2 (10:00→21:23)
[2020-01-31 20:13] VITALS: BP 105/63
[2020-01-31] MEDS: MELATONIN 3 MG TABLET GT SCH (20:13)
[2020-01-31] MEDS: ASCORBIC ACID 500 MG TABLET GT SCH (20:14)
[2020-01-31] MEDS: MAGNESIUM COMPLEX GT SCH (20:14)
[2020-01-31] MEDS: PROTEIN SUPPLEMENT (PROSTAT) 30 ML LIQUID GT SCH (20:14)
[2020-01-31] MEDS: CRANBERRY 500 MG GT SCH (20:14)
[2020-01-31] MEDS: NUTRISOURCE FIBER 4 GM PACKET GT SCH (20:14)
[2020-01-31] MEDS: RIVAROXABAN 15 MG TABLET GT SCH (20:18)
[2020-01-31] MEDS: TWOCAL HN 1,000 ML LIQUID GT PRN (23:18)
[2020-02-01] MEDS: OMEPRAZOLE 20 MG CAPSULE.DR GT SCH (06:00)
[2020-02-01] MEDS: BACLOFEN 20 MG TABLET GT SCH ×3 (06:00→22:15)
[2020-02-01] MEDS: METOCLOPRAMIDE HCL 10 MG/10 ML UDC GT SCH ×3 (06:00→17:55)
[2020-02-01] MEDS: MULTIVIT, IRON, MIN NO. 8, FA TABLET GT SCH (06:00)
[2020-02-01 07:37] VITALS: BP 113/69
[2020-02-01] MEDS: DOCUSATE SODIUM 100 MG/10 ML LIQUID UDC GT SCH (08:27)
[2020-02-01] MEDS: ACIDOPHILUS/BULGARICUS CHEW TAB GT SCH ×2 (08:27→20:29)
[2020-02-01] MEDS: levETIRAcetam 500 MG/5 ML LIQUID UDC GT SCH ×2 (08:27→20:29)
[2020-02-01] MEDS: POTASSIUM CHLORIDE 40 MEQ/30 ML LIQUID UDC GT SCH (08:28)
[2020-02-01] MEDS: MIRALAX 17 GM POWD.PACK GT SCH (08:28)
[2020-02-01] MEDS: COD LIVER OIL/ZINC OXIDE OINT 113 GM TUBE TP SCH ×2 (08:29→20:34)
[2020-02-01] MEDS: HYDROGEN PEROXIDE 3% 118 ML BOTTLE TP SCH ×2 (09:00→21:41)
--- NOTE | 2020-02-01 10:37 | NUR ---
ISAÍAS called and spoke with patient's mother Jeanne this morning, . SW checked in with Jeanne to see how she was doing, and if she had any concerns at this time. Jeanne stated that she is doing well, "taking it one day at a time". Jeanne stated not having any concerns at this time, and expressed gratitude to this SW for everyone's work with taking care of the patient during the visitation restrictions. SW thanked Jeanne for her kind words and acknowledgement. ISAÍAS informed Jeanne that the patient is due for her annual eye exam, and that Dr. Galloway was planning on scheduling patient eye exams in the coming days. ISAÍAS asked Jeanne if Jeanne was fine with the patient being seen by Dr. Galloway for her annual eye exam, and Jeanne stated yes. SW to schedule patient's annual optometry exam.
--- NOTE | 2020-02-01 14:23 | NUR ---
SW received a voicemail message from [place] at Dr. Galloway's office [phone] Galloway will be at this facility on 02/09/2020 in order to see the patient for her annual eye exam.
[2020-02-01 20:07] VITALS: BP 120/71
[2020-02-01] MEDS: ASCORBIC ACID 500 MG TABLET GT SCH (20:29)
[2020-02-01] MEDS: MAGNESIUM COMPLEX GT SCH (20:29)
[2020-02-01] MEDS: MELATONIN 3 MG TABLET GT SCH (20:29)
[2020-02-01] MEDS: CRANBERRY 500 MG GT SCH (20:29)
[2020-02-01] MEDS: NUTRISOURCE FIBER 4 GM PACKET GT SCH (20:29)
[2020-02-01] MEDS: PROTEIN SUPPLEMENT (PROSTAT) 30 ML LIQUID GT SCH (20:29)
[2020-02-01] MEDS: RIVAROXABAN 15 MG TABLET GT SCH (20:30)
[2020-02-02] MEDS: METOCLOPRAMIDE HCL 10 MG/10 ML UDC GT SCH ×5 (00:23→23:15)
[2020-02-02] MEDS: BACLOFEN 20 MG TABLET GT SCH ×3 (05:59→21:05)
[2020-02-02] MEDS: OMEPRAZOLE 20 MG CAPSULE.DR GT SCH (05:59)
[2020-02-02] MEDS: MULTIVIT, IRON, MIN NO. 8, FA TABLET GT SCH (06:00)
[2020-02-02 07:37] VITALS: BP 113/69
[2020-02-02] MEDS: HYDROGEN PEROXIDE 3% 118 ML BOTTLE TP SCH ×2 (08:15→21:17)
[2020-02-02] MEDS: DOCUSATE SODIUM 100 MG/10 ML LIQUID UDC GT SCH (08:45)
[2020-02-02] MEDS: levETIRAcetam 500 MG/5 ML LIQUID UDC GT SCH ×2 (08:45→20:39)
[2020-02-02] MEDS: POTASSIUM CHLORIDE 40 MEQ/30 ML LIQUID UDC GT SCH (08:45)
[2020-02-02] MEDS: ACIDOPHILUS/BULGARICUS CHEW TAB GT SCH ×2 (08:45→20:39)
[2020-02-02] MEDS: MIRALAX 17 GM POWD.PACK GT SCH (08:45)
[2020-02-02] MEDS: COD LIVER OIL/ZINC OXIDE OINT 113 GM TUBE TP SCH ×2 (08:46→20:40)
[2020-02-02] MEDS: COAL TAR TOP SCH (08:46)
--- NOTE | 2020-02-02 16:20 | NUR ---
ZOOM MEETING PROVIDED TO PT'S SISTER.
[2020-02-02] MEDS: RIVAROXABAN 15 MG TABLET GT SCH (20:35)
[2020-02-02] MEDS: MELATONIN 3 MG TABLET GT SCH (20:39)
[2020-02-02] MEDS: CRANBERRY 500 MG GT SCH (20:39)
[2020-02-02] MEDS: MAGNESIUM COMPLEX GT SCH (20:39)
[2020-02-02] MEDS: PROTEIN SUPPLEMENT (PROSTAT) 30 ML LIQUID GT SCH (20:40)
[2020-02-02] MEDS: ASCORBIC ACID 500 MG TABLET GT SCH (20:40)
[2020-02-02] MEDS: NUTRISOURCE FIBER 4 GM PACKET GT SCH (20:40)
[2020-02-02] MEDS: TWOCAL HN 1,000 ML LIQUID GT PRN (21:53)
[2020-02-02 22:43] VITALS: BP 100/63
[2020-02-03] MEDS: BACLOFEN 20 MG TABLET GT SCH ×3 (05:20→21:19)
[2020-02-03] MEDS: METOCLOPRAMIDE HCL 10 MG/10 ML UDC GT SCH ×4 (05:20→23:08)
[2020-02-03] MEDS: MULTIVIT, IRON, MIN NO. 8, FA TABLET GT SCH (05:20)
[2020-02-03] MEDS: OMEPRAZOLE 20 MG CAPSULE.DR GT SCH (05:20)
[2020-02-03 07:53] VITALS: BP 111/69
[2020-02-03] MEDS: MIRALAX 17 GM POWD.PACK GT SCH (08:46)
[2020-02-03] MEDS: COD LIVER OIL/ZINC OXIDE OINT 113 GM TUBE TP SCH ×2 (08:46→20:44)
[2020-02-03] MEDS: DOCUSATE SODIUM 100 MG/10 ML LIQUID UDC GT SCH (08:46)
[2020-02-03] MEDS: levETIRAcetam 500 MG/5 ML LIQUID UDC GT SCH ×2 (08:47→20:44)
[2020-02-03] MEDS: POTASSIUM CHLORIDE 40 MEQ/30 ML LIQUID UDC GT SCH (08:47)
[2020-02-03] MEDS: ACIDOPHILUS/BULGARICUS CHEW TAB GT SCH ×2 (08:48→20:44)
[2020-02-03] MEDS: HYDROGEN PEROXIDE 3% 118 ML BOTTLE TP SCH ×2 (09:00→21:42)
[2020-02-03] MEDS: RIVAROXABAN 15 MG TABLET GT SCH (20:37)
[2020-02-03] MEDS: MELATONIN 3 MG TABLET GT SCH (20:44)
[2020-02-03] MEDS: MAGNESIUM COMPLEX GT SCH (20:44)
[2020-02-03] MEDS: CRANBERRY 500 MG GT SCH (20:44)
[2020-02-03] MEDS: PROTEIN SUPPLEMENT (PROSTAT) 30 ML LIQUID GT SCH (20:44)
[2020-02-03] MEDS: ASCORBIC ACID 500 MG TABLET GT SCH (20:44)
[2020-02-03] MEDS: NUTRISOURCE FIBER 4 GM PACKET GT SCH (20:44)
[2020-02-03 22:00] VITALS: BP 107/60
[2020-02-04] MEDS: METOCLOPRAMIDE HCL 10 MG/10 ML UDC GT SCH ×3 (05:16→17:35)
[2020-02-04] MEDS: BACLOFEN 20 MG TABLET GT SCH ×3 (05:16→21:03)
[2020-02-04] MEDS: MULTIVIT, IRON, MIN NO. 8, FA TABLET GT SCH (05:16)
[2020-02-04] MEDS: OMEPRAZOLE 20 MG CAPSULE.DR GT SCH (05:16)
[2020-02-04 08:01] VITALS: BP 91/57
[2020-02-04] MEDS: levETIRAcetam 500 MG/5 ML LIQUID UDC GT SCH ×2 (08:52→20:43)
[2020-02-04] MEDS: DOCUSATE SODIUM 100 MG/10 ML LIQUID UDC GT SCH (08:52)
[2020-02-04] MEDS: ACIDOPHILUS/BULGARICUS CHEW TAB GT SCH ×2 (08:52→20:43)
[2020-02-04] MEDS: MIRALAX 17 GM POWD.PACK GT SCH (08:53)
[2020-02-04] MEDS: POTASSIUM CHLORIDE 40 MEQ/30 ML LIQUID UDC GT SCH (08:53)
[2020-02-04] MEDS: COD LIVER OIL/ZINC OXIDE OINT 113 GM TUBE TP SCH ×2 (08:54→20:43)
[2020-02-04] MEDS: HYDROGEN PEROXIDE 3% 118 ML BOTTLE TP SCH ×2 (10:00→21:28)
--- NOTE | 2020-02-04 11:21 | NUR ---
PT HAD ZOOM CHAT WITH FATHER.
[2020-02-04] MEDS: NUTRISOURCE FIBER 4 GM PACKET GT SCH (20:43)
[2020-02-04] MEDS: PROTEIN SUPPLEMENT (PROSTAT) 30 ML LIQUID GT SCH (20:43)
[2020-02-04] MEDS: MAGNESIUM COMPLEX GT SCH (20:43)
[2020-02-04] MEDS: MELATONIN 3 MG TABLET GT SCH (20:43)
[2020-02-04] MEDS: CRANBERRY 500 MG GT SCH (20:43)
[2020-02-04] MEDS: ASCORBIC ACID 500 MG TABLET GT SCH (20:43)
[2020-02-04] MEDS: RIVAROXABAN 15 MG TABLET GT SCH (20:44)
[2020-02-04 22:37] VITALS: BP 100/63
[2020-02-04] MEDS: TWOCAL HN 1,000 ML LIQUID GT PRN (23:29)
[2020-02-05] MEDS: METOCLOPRAMIDE HCL 10 MG/10 ML UDC GT SCH ×4 (00:22→17:14)
[2020-02-05] MEDS: OMEPRAZOLE 20 MG CAPSULE.DR GT SCH (05:10)
[2020-02-05] MEDS: MULTIVIT, IRON, MIN NO. 8, FA TABLET GT SCH (05:10)
[2020-02-05] MEDS: BACLOFEN 20 MG TABLET GT SCH ×3 (05:10→21:32)
[2020-02-05 07:58] VITALS: BP 98/65
[2020-02-05] MEDS: DOCUSATE SODIUM 100 MG/10 ML LIQUID UDC GT SCH (08:23)
[2020-02-05] MEDS: levETIRAcetam 500 MG/5 ML LIQUID UDC GT SCH ×2 (08:23→21:30)
[2020-02-05] MEDS: MIRALAX 17 GM POWD.PACK GT SCH (08:23)
[2020-02-05] MEDS: ACIDOPHILUS/BULGARICUS CHEW TAB GT SCH ×2 (08:23→21:27)
[2020-02-05] MEDS: COD LIVER OIL/ZINC OXIDE OINT 113 GM TUBE TP SCH ×2 (08:24→21:32)
[2020-02-05] MEDS: POTASSIUM CHLORIDE 40 MEQ/30 ML LIQUID UDC GT SCH (08:24)
[2020-02-05] MEDS: HYDROGEN PEROXIDE 3% 118 ML BOTTLE TP SCH ×2 (08:47→21:41)
--- NOTE | 2020-02-05 17:59 | NUR ---
zoom chat with mother.
[2020-02-05 20:24] VITALS: BP 99/63
[2020-02-05] MEDS: RIVAROXABAN 15 MG TABLET GT SCH (21:00)
[2020-02-05] MEDS: PROTEIN SUPPLEMENT (PROSTAT) 30 ML LIQUID GT SCH (21:31)
[2020-02-05] MEDS: NUTRISOURCE FIBER 4 GM PACKET GT SCH (21:31)
[2020-02-05] MEDS: CRANBERRY 500 MG GT SCH (21:31)
[2020-02-05] MEDS: MAGNESIUM COMPLEX GT SCH (21:31)
[2020-02-05] MEDS: MELATONIN 3 MG TABLET GT SCH (21:31)
[2020-02-05] MEDS: ASCORBIC ACID 500 MG TABLET GT SCH (21:32)
[2020-02-06] MEDS: TWOCAL HN 1,000 ML LIQUID GT PRN (04:36)
[2020-02-06] MEDS: OMEPRAZOLE 20 MG CAPSULE.DR GT SCH (06:32)
[2020-02-06] MEDS: METOCLOPRAMIDE HCL 10 MG/10 ML UDC GT SCH ×4 (06:32→17:00)
[2020-02-06] MEDS: BACLOFEN 20 MG TABLET GT SCH ×3 (06:32→21:02)
[2020-02-06] MEDS: MULTIVIT, IRON, MIN NO. 8, FA TABLET GT SCH (06:33)
[2020-02-06 08:00] VITALS: BP 105/64
[2020-02-06] MEDS: DOCUSATE SODIUM 100 MG/10 ML LIQUID UDC GT SCH (08:32)
[2020-02-06] MEDS: levETIRAcetam 500 MG/5 ML LIQUID UDC GT SCH ×2 (08:32→20:53)
[2020-02-06] MEDS: ACIDOPHILUS/BULGARICUS CHEW TAB GT SCH ×2 (08:32→20:52)
[2020-02-06] MEDS: MIRALAX 17 GM POWD.PACK GT SCH (08:33)
[2020-02-06] MEDS: POTASSIUM CHLORIDE 40 MEQ/30 ML LIQUID UDC GT SCH (08:33)
[2020-02-06] MEDS: COD LIVER OIL/ZINC OXIDE OINT 113 GM TUBE TP SCH ×2 (08:34→20:57)
[2020-02-06] MEDS: COAL TAR TOP SCH (08:44)
[2020-02-06] MEDS: HYDROGEN PEROXIDE 3% 118 ML BOTTLE TP SCH ×2 (09:55→21:38)
--- NOTE | 2020-02-06 12:00 | NUR ---
SEEN BY [place] Trotter AND WITH NNO.
--- NOTE | 2020-02-06 15:45 | NUR ---
VIDEO CHAT DONE WITH PATIENT'S SISTER AT THIS TIME.
[2020-02-06 20:00] VITALS: BP 107/59
[2020-02-06] MEDS: CRANBERRY 500 MG GT SCH (20:54)
[2020-02-06] MEDS: MELATONIN 3 MG TABLET GT SCH (20:54)
[2020-02-06] MEDS: ASCORBIC ACID 500 MG TABLET GT SCH (20:55)
[2020-02-06] MEDS: NUTRISOURCE FIBER 4 GM PACKET GT SCH (20:55)
[2020-02-06] MEDS: MAGNESIUM COMPLEX GT SCH (20:55)
[2020-02-06] MEDS: PROTEIN SUPPLEMENT (PROSTAT) 30 ML LIQUID GT SCH (20:55)
[2020-02-06] MEDS: RIVAROXABAN 15 MG TABLET GT SCH (21:02)
[2020-02-07] MEDS: OMEPRAZOLE 20 MG CAPSULE.DR GT SCH (05:41)
[2020-02-07] MEDS: BACLOFEN 20 MG TABLET GT SCH ×3 (05:41→21:11)
[2020-02-07] MEDS: MULTIVIT, IRON, MIN NO. 8, FA TABLET GT SCH (05:41)
[2020-02-07] MEDS: METOCLOPRAMIDE HCL 10 MG/10 ML UDC GT SCH ×4 (05:41→17:00)
[2020-02-07 08:00] VITALS: BP 113/77
[2020-02-07] MEDS: ACIDOPHILUS/BULGARICUS CHEW TAB GT SCH ×2 (08:11→20:52)
[2020-02-07] MEDS: DOCUSATE SODIUM 100 MG/10 ML LIQUID UDC GT SCH (08:11)
[2020-02-07] MEDS: POTASSIUM CHLORIDE 40 MEQ/30 ML LIQUID UDC GT SCH (08:12)
[2020-02-07] MEDS: COD LIVER OIL/ZINC OXIDE OINT 113 GM TUBE TP SCH ×2 (08:12→20:55)
[2020-02-07] MEDS: levETIRAcetam 500 MG/5 ML LIQUID UDC GT SCH ×2 (08:12→20:52)
[2020-02-07] MEDS: MIRALAX 17 GM POWD.PACK GT SCH (08:12)
[2020-02-07] MEDS: HYDROGEN PEROXIDE 3% 118 ML BOTTLE TP SCH ×2 (09:50→21:22)
--- NOTE | 2020-02-07 15:20 | NUR ---
ISAÍAS sent patient's sister Jeanne an email, letting her know that the next IDT meeting for the patient has been scheduled for 02/13/2020 at 11am. In this email, ISAÍAS asked Jeanne to respond to this SW and let her know if she or patient's parents would like to participate in the IDT meeting via speaker phone.
--- NOTE | 2020-02-07 16:05 | NUR ---
video chat done with patient's father.
--- NOTE | 2020-02-07 16:44 | NUR ---
ISAÍAS received an email response back from patient's sister Jeanne, stating that she would like to participate in the IDT meeting on 02/13/2020. ISAÍAS emailed Jeanne back acknowledging her request, and asking her to be available on 02/13/2020 between the hours of 11am-12pm to receive the call from this ISAÍAS.
[2020-02-07] MEDS: BISACODYL 10 MG SUPP.RECT RC PRN (17:01)
[2020-02-07 20:00] VITALS: BP 115/74
[2020-02-07] MEDS: MELATONIN 3 MG TABLET GT SCH (20:52)
[2020-02-07] MEDS: NUTRISOURCE FIBER 4 GM PACKET GT SCH (20:54)
[2020-02-07] MEDS: PROTEIN SUPPLEMENT (PROSTAT) 30 ML LIQUID GT SCH (20:54)
[2020-02-07] MEDS: ASCORBIC ACID 500 MG TABLET GT SCH (20:54)
[2020-02-07] MEDS: CRANBERRY 500 MG GT SCH (20:54)
[2020-02-07] MEDS: MAGNESIUM COMPLEX GT SCH (20:54)
[2020-02-07] MEDS: RIVAROXABAN 15 MG TABLET GT SCH (20:55)
[2020-02-08] MEDS: BACLOFEN 20 MG TABLET GT SCH ×3 (05:08→22:36)
[2020-02-08] MEDS: METOCLOPRAMIDE HCL 10 MG/10 ML UDC GT SCH ×4 (05:08→17:25)
[2020-02-08] MEDS: OMEPRAZOLE 20 MG CAPSULE.DR GT SCH (05:08)
[2020-02-08] MEDS: MULTIVIT, IRON, MIN NO. 8, FA TABLET GT SCH (05:08)
[2020-02-08 08:00] VITALS: BP 93/53
[2020-02-08] MEDS: DOCUSATE SODIUM 100 MG/10 ML LIQUID UDC GT SCH (08:17)
[2020-02-08] MEDS: ACIDOPHILUS/BULGARICUS CHEW TAB GT SCH ×2 (08:17→20:15)
[2020-02-08] MEDS: levETIRAcetam 500 MG/5 ML LIQUID UDC GT SCH ×2 (08:17→20:15)
[2020-02-08] MEDS: MIRALAX 17 GM POWD.PACK GT SCH (08:18)
[2020-02-08] MEDS: COD LIVER OIL/ZINC OXIDE OINT 113 GM TUBE TP SCH ×2 (08:19→20:28)
[2020-02-08] MEDS: POTASSIUM CHLORIDE 40 MEQ/30 ML LIQUID UDC GT SCH (08:19)
[2020-02-08] MEDS: HYDROGEN PEROXIDE 3% 118 ML BOTTLE TP SCH ×2 (10:25→21:41)
--- NOTE | 2020-02-08 11:06 | NUR ---
PROVIDED ZOOM COMMUNICATION FOR PATIENT WITH MOTHER. PATIENT STABLE, NO SIGNS OF PAIN OR DISCOMFORT AT THIS TIME WILL CONTINUE TO MONITOR.
[2020-02-08 20:00] VITALS: BP_SYST 103; BP_SYST 98; BP_DIAS 57; BP_DIAS 58
[2020-02-08] MEDS: MELATONIN 3 MG TABLET GT SCH (20:16)
[2020-02-08] MEDS: MAGNESIUM COMPLEX GT SCH (20:23)
[2020-02-08] MEDS: CRANBERRY 500 MG GT SCH (20:23)
[2020-02-08] MEDS: NUTRISOURCE FIBER 4 GM PACKET GT SCH (20:23)
[2020-02-08] MEDS: PROTEIN SUPPLEMENT (PROSTAT) 30 ML LIQUID GT SCH (20:26)
[2020-02-08] MEDS: ASCORBIC ACID 500 MG TABLET GT SCH (20:27)
[2020-02-08] MEDS: RIVAROXABAN 15 MG TABLET GT SCH (20:36)
[2020-02-09] MEDS: METOCLOPRAMIDE HCL 10 MG/10 ML UDC GT SCH ×4 (00:40→17:46)
[2020-02-09] MEDS: BACLOFEN 20 MG TABLET GT SCH ×3 (05:55→22:16)
[2020-02-09] MEDS: MULTIVIT, IRON, MIN NO. 8, FA TABLET GT SCH (05:55)
[2020-02-09] MEDS: OMEPRAZOLE 20 MG CAPSULE.DR GT SCH (05:55)
[2020-02-09 08:00] VITALS: BP 98/62
[2020-02-09] MEDS: ACIDOPHILUS/BULGARICUS CHEW TAB GT SCH ×2 (08:55→21:00)
[2020-02-09] MEDS: DOCUSATE SODIUM 100 MG/10 ML LIQUID UDC GT SCH (08:55)
[2020-02-09] MEDS: MIRALAX 17 GM POWD.PACK GT SCH (08:55)
[2020-02-09] MEDS: levETIRAcetam 500 MG/5 ML LIQUID UDC GT SCH ×2 (08:56→21:00)
[2020-02-09] MEDS: POTASSIUM CHLORIDE 40 MEQ/30 ML LIQUID UDC GT SCH (08:57)
[2020-02-09] MEDS: COAL TAR TOP SCH (08:57)
[2020-02-09] MEDS: COD LIVER OIL/ZINC OXIDE OINT 113 GM TUBE TP SCH ×2 (08:57→21:00)
[2020-02-09] MEDS: HYDROGEN PEROXIDE 3% 118 ML BOTTLE TP SCH ×2 (09:59→21:38)
--- NOTE | 2020-02-09 11:00 | NUR ---
Seen by Dr. Galloway with no new order.
--- NOTE | 2020-02-09 17:00 | NUR ---
provided zoom communication for patient with sister. patient stable, no signs of pain or distress noted, will continue to monitor.
[2020-02-09 20:37] VITALS: BP 108/66
[2020-02-09] MEDS: MAGNESIUM COMPLEX GT SCH (21:00)
[2020-02-09] MEDS: ASCORBIC ACID 500 MG TABLET GT SCH (21:00)
[2020-02-09] MEDS: PROTEIN SUPPLEMENT (PROSTAT) 30 ML LIQUID GT SCH (21:00)
[2020-02-09] MEDS: MELATONIN 3 MG TABLET GT SCH (21:00)
[2020-02-09] MEDS: CRANBERRY 500 MG GT SCH (21:00)
[2020-02-09] MEDS: RIVAROXABAN 15 MG TABLET GT SCH (21:00)
[2020-02-09] MEDS: NUTRISOURCE FIBER 4 GM PACKET GT SCH (21:00)
[2020-02-10] MEDS: METOCLOPRAMIDE HCL 10 MG/10 ML UDC GT SCH ×5 (00:17→23:27)
[2020-02-10] MEDS: BACLOFEN 20 MG TABLET GT SCH ×3 (04:53→21:04)
[2020-02-10] MEDS: MULTIVIT, IRON, MIN NO. 8, FA TABLET GT SCH (05:43)
[2020-02-10] MEDS: OMEPRAZOLE 20 MG CAPSULE.DR GT SCH (05:43)
[2020-02-10 07:34] VITALS: BP 110/62
[2020-02-10] MEDS: DOCUSATE SODIUM 100 MG/10 ML LIQUID UDC GT SCH (08:14)
[2020-02-10] MEDS: levETIRAcetam 500 MG/5 ML LIQUID UDC GT SCH ×2 (08:15→20:33)
[2020-02-10] MEDS: ACIDOPHILUS/BULGARICUS CHEW TAB GT SCH ×2 (08:15→20:33)
[2020-02-10] MEDS: MIRALAX 17 GM POWD.PACK GT SCH (08:16)
[2020-02-10] MEDS: POTASSIUM CHLORIDE 40 MEQ/30 ML LIQUID UDC GT SCH (08:19)
[2020-02-10] MEDS: COD LIVER OIL/ZINC OXIDE OINT 113 GM TUBE TP SCH ×2 (08:20→20:35)
[2020-02-10] MEDS: HYDROGEN PEROXIDE 3% 118 ML BOTTLE TP SCH ×2 (09:00→21:29)
--- NOTE | 2020-02-10 14:47 | NUR ---
PROVIDED ZOOM COMMUNICATIONS FOR PATIENT WITH MOTHER. PATIENT IN STABLE CONDITION, NO SIGNS OF PAIN OR DISCOMFORT NOTED AT THIS TIME, WILL CONTINUE TO MONITOR.
[2020-02-10] MEDS: TWOCAL HN 1,000 ML LIQUID GT PRN (17:44)
[2020-02-10] MEDS: MELATONIN 3 MG TABLET GT SCH (20:33)
[2020-02-10] MEDS: ASCORBIC ACID 500 MG TABLET GT SCH (20:34)
[2020-02-10] MEDS: CRANBERRY 500 MG GT SCH (20:34)
[2020-02-10] MEDS: PROTEIN SUPPLEMENT (PROSTAT) 30 ML LIQUID GT SCH (20:34)
[2020-02-10] MEDS: NUTRISOURCE FIBER 4 GM PACKET GT SCH (20:34)
[2020-02-10] MEDS: MAGNESIUM COMPLEX GT SCH (20:34)
[2020-02-10] MEDS: RIVAROXABAN 15 MG TABLET GT SCH (21:07)
[2020-02-10 23:31] VITALS: BP 115/73
[2020-02-11] MEDS: METOCLOPRAMIDE HCL 10 MG/10 ML UDC GT SCH ×3 (05:17→17:30)
[2020-02-11] MEDS: BACLOFEN 20 MG TABLET GT SCH ×3 (05:17→21:01)
[2020-02-11] MEDS: MULTIVIT, IRON, MIN NO. 8, FA TABLET GT SCH (05:17)
[2020-02-11] MEDS: OMEPRAZOLE 20 MG CAPSULE.DR GT SCH (05:17)
[2020-02-11 07:45] VITALS: BP 102/60
[2020-02-11] MEDS: DOCUSATE SODIUM 100 MG/10 ML LIQUID UDC GT SCH ×2 (08:55→09:03)
[2020-02-11] MEDS: ACIDOPHILUS/BULGARICUS CHEW TAB GT SCH ×2 (08:55→21:01)
[2020-02-11] MEDS: MIRALAX 17 GM POWD.PACK GT SCH ×2 (08:56→09:03)
[2020-02-11] MEDS: COD LIVER OIL/ZINC OXIDE OINT 113 GM TUBE TP SCH ×3 (08:56→21:01)
[2020-02-11] MEDS: POTASSIUM CHLORIDE 40 MEQ/30 ML LIQUID UDC GT SCH ×2 (08:56→09:03)
[2020-02-11] MEDS: levETIRAcetam 500 MG/5 ML LIQUID UDC GT SCH ×2 (08:56→21:01)
[2020-02-11] MEDS: HYDROGEN PEROXIDE 3% 118 ML BOTTLE TP SCH ×2 (09:00→19:29)
--- NOTE | 2020-02-11 12:00 | NUR ---
ZOOM PROVIDED TO FATHER.
[2020-02-11] MEDS: MAGNESIUM COMPLEX GT SCH (21:01)
[2020-02-11] MEDS: CRANBERRY 500 MG GT SCH (21:01)
[2020-02-11] MEDS: MELATONIN 3 MG TABLET GT SCH (21:01)
[2020-02-11] MEDS: NUTRISOURCE FIBER 4 GM PACKET GT SCH (21:01)
[2020-02-11] MEDS: ASCORBIC ACID 500 MG TABLET GT SCH (21:01)
[2020-02-11] MEDS: PROTEIN SUPPLEMENT (PROSTAT) 30 ML LIQUID GT SCH (21:01)
[2020-02-11] MEDS: RIVAROXABAN 15 MG TABLET GT SCH (21:17)
[2020-02-11 22:32] VITALS: BP 118/76
[2020-02-12] MEDS: METOCLOPRAMIDE HCL 10 MG/10 ML UDC GT SCH ×4 (00:29→17:28)
[2020-02-12] MEDS: MULTIVIT, IRON, MIN NO. 8, FA TABLET GT SCH (06:17)
[2020-02-12] MEDS: BACLOFEN 20 MG TABLET GT SCH ×3 (06:17→22:25)
[2020-02-12] MEDS: OMEPRAZOLE 20 MG CAPSULE.DR GT SCH (06:17)
[2020-02-12] MEDS: TWOCAL HN 1,000 ML LIQUID GT PRN (06:58)
[2020-02-12] MEDS: HYDROGEN PEROXIDE 3% 118 ML BOTTLE TP SCH ×2 (07:34→21:26)
[2020-02-12 08:18] VITALS: BP 113/71
[2020-02-12] MEDS: ACIDOPHILUS/BULGARICUS CHEW TAB GT SCH ×2 (08:24→20:52)
[2020-02-12] MEDS: levETIRAcetam 500 MG/5 ML LIQUID UDC GT SCH ×2 (08:24→20:52)
[2020-02-12] MEDS: DOCUSATE SODIUM 100 MG/10 ML LIQUID UDC GT SCH (08:24)
[2020-02-12] MEDS: MIRALAX 17 GM POWD.PACK GT SCH (08:24)
[2020-02-12] MEDS: POTASSIUM CHLORIDE 40 MEQ/30 ML LIQUID UDC GT SCH (08:24)
[2020-02-12] MEDS: COD LIVER OIL/ZINC OXIDE OINT 113 GM TUBE TP SCH ×2 (09:00→20:52)
[2020-02-12 20:51] VITALS: BP 118/73
[2020-02-12] MEDS: RIVAROXABAN 15 MG TABLET GT SCH (20:51)
[2020-02-12] MEDS: ASCORBIC ACID 500 MG TABLET GT SCH (20:52)
[2020-02-12] MEDS: PROTEIN SUPPLEMENT (PROSTAT) 30 ML LIQUID GT SCH (20:52)
[2020-02-12] MEDS: NUTRISOURCE FIBER 4 GM PACKET GT SCH (20:52)
[2020-02-12] MEDS: MAGNESIUM COMPLEX GT SCH (20:52)
[2020-02-12] MEDS: CRANBERRY 500 MG GT SCH (20:52)
[2020-02-12] MEDS: MELATONIN 3 MG TABLET GT SCH (20:52)
[2020-02-13] MEDS: METOCLOPRAMIDE HCL 10 MG/10 ML UDC GT SCH ×4 (00:27→17:11)
[2020-02-13] MEDS: OMEPRAZOLE 20 MG CAPSULE.DR GT SCH (05:57)
[2020-02-13] MEDS: MULTIVIT, IRON, MIN NO. 8, FA TABLET GT SCH (05:57)
[2020-02-13] MEDS: BACLOFEN 20 MG TABLET GT SCH ×3 (05:57→22:47)
[2020-02-13 08:00] VITALS: BP 101/60
[2020-02-13] MEDS: DOCUSATE SODIUM 100 MG/10 ML LIQUID UDC GT SCH (08:36)
[2020-02-13] MEDS: levETIRAcetam 500 MG/5 ML LIQUID UDC GT SCH ×2 (08:38→20:34)
[2020-02-13] MEDS: ACIDOPHILUS/BULGARICUS CHEW TAB GT SCH ×2 (08:38→20:34)
[2020-02-13] MEDS: MIRALAX 17 GM POWD.PACK GT SCH (08:41)
[2020-02-13] MEDS: COAL TAR TOP SCH (08:41)
[2020-02-13] MEDS: POTASSIUM CHLORIDE 40 MEQ/30 ML LIQUID UDC GT SCH (08:41)
[2020-02-13] MEDS: COD LIVER OIL/ZINC OXIDE OINT 113 GM TUBE TP SCH ×2 (08:42→20:36)
[2020-02-13] MEDS: NEOMY/BACITRA/POLYMYXIN B OINT UD PACKET TP SCH ×2 (09:25→20:36)
[2020-02-13] MEDS: HYDROGEN PEROXIDE 3% 118 ML BOTTLE TP SCH ×2 (09:43→21:25)
--- NOTE | 2020-02-13 10:00 | NUR ---
new orders noted for R hand scratch,with triple Atb ointment Q shift x 10 days,carried out.
--- NOTE | 2020-02-13 14:18 | NUR ---
INTERDISCIPLINARY PLAN OF CARE CONFERENCE was held today. Patient's sister Jeanne participated in the meeting through speaker phone. Dr. Cartagena and the Interdisciplinary Team reviewed the current plan of care in detail. RN reported on patient's medical condition and current treatments. No major changes in condition were reported. See RN IDT conference notes. PT provided an update on patient's current treatment plan, patient's progress, and stated that PT continues 3 x week. See all other disciplines IDT notes and physician's progress notes for additional details.
[2020-02-13 20:28] VITALS: BP 119/75
[2020-02-13] MEDS: RIVAROXABAN 15 MG TABLET GT SCH (20:33)
[2020-02-13] MEDS: MELATONIN 3 MG TABLET GT SCH (20:35)
[2020-02-13] MEDS: ASCORBIC ACID 500 MG TABLET GT SCH (20:36)
[2020-02-13] MEDS: CRANBERRY 500 MG GT SCH (20:36)
[2020-02-13] MEDS: PROTEIN SUPPLEMENT (PROSTAT) 30 ML LIQUID GT SCH (20:36)
[2020-02-13] MEDS: MAGNESIUM COMPLEX GT SCH (20:36)
[2020-02-13] MEDS: NUTRISOURCE FIBER 4 GM PACKET GT SCH (20:36)
[2020-02-14] MEDS: TWOCAL HN 1,000 ML LIQUID GT PRN (01:59)
[2020-02-14] MEDS: OMEPRAZOLE 20 MG CAPSULE.DR GT SCH (05:26)
[2020-02-14] MEDS: BACLOFEN 20 MG TABLET GT SCH ×3 (05:26→22:01)
[2020-02-14] MEDS: MULTIVIT, IRON, MIN NO. 8, FA TABLET GT SCH (05:26)
[2020-02-14] MEDS: METOCLOPRAMIDE HCL 10 MG/10 ML UDC GT SCH ×4 (05:26→17:06)
[2020-02-14] MEDS: HYDROGEN PEROXIDE 3% 118 ML BOTTLE TP SCH ×2 (07:14→20:54)
[2020-02-14 08:00] VITALS: BP 110/66
[2020-02-14] MEDS: levETIRAcetam 500 MG/5 ML LIQUID UDC GT SCH ×2 (08:36→21:01)
[2020-02-14] MEDS: POTASSIUM CHLORIDE 40 MEQ/30 ML LIQUID UDC GT SCH (08:36)
[2020-02-14] MEDS: COD LIVER OIL/ZINC OXIDE OINT 113 GM TUBE TP SCH ×2 (08:36→20:59)
[2020-02-14] MEDS: DOCUSATE SODIUM 100 MG/10 ML LIQUID UDC GT SCH (08:36)
[2020-02-14] MEDS: NEOMY/BACITRA/POLYMYXIN B OINT UD PACKET TP SCH ×2 (08:36→21:00)
[2020-02-14] MEDS: ACIDOPHILUS/BULGARICUS CHEW TAB GT SCH ×2 (08:36→20:58)
[2020-02-14] MEDS: MIRALAX 17 GM POWD.PACK GT SCH (08:36)
--- NOTE | 2020-02-14 17:30 | NUR ---
Provided video chat to pt. and her father with no problem, pt remains comfortable and all needs attended and anticipated.
[2020-02-14 20:06] VITALS: BP 109/82
[2020-02-14] MEDS: CRANBERRY 500 MG GT SCH (20:58)
[2020-02-14] MEDS: NUTRISOURCE FIBER 4 GM PACKET GT SCH (20:58)
[2020-02-14] MEDS: ASCORBIC ACID 500 MG TABLET GT SCH (20:58)
[2020-02-14] MEDS: PROTEIN SUPPLEMENT (PROSTAT) 30 ML LIQUID GT SCH (20:58)
[2020-02-14] MEDS: MELATONIN 3 MG TABLET GT SCH (20:58)
[2020-02-14] MEDS: MAGNESIUM COMPLEX GT SCH (20:58)
[2020-02-14] MEDS: RIVAROXABAN 15 MG TABLET GT SCH (21:00)
[2020-02-15] MEDS: METOCLOPRAMIDE HCL 10 MG/10 ML UDC GT SCH ×4 (00:50→17:40)
[2020-02-15] MEDS: BACLOFEN 20 MG TABLET GT SCH ×3 (06:16→21:32)
[2020-02-15] MEDS: MULTIVIT, IRON, MIN NO. 8, FA TABLET GT SCH (06:16)
[2020-02-15] MEDS: OMEPRAZOLE 20 MG CAPSULE.DR GT SCH (06:16)
[2020-02-15 07:18] VITALS: BP 105/64
[2020-02-15] MEDS: HYDROGEN PEROXIDE 3% 118 ML BOTTLE TP SCH ×2 (07:23→19:22)
[2020-02-15] MEDS: POTASSIUM CHLORIDE 40 MEQ/30 ML LIQUID UDC GT SCH (08:41)
[2020-02-15] MEDS: DOCUSATE SODIUM 100 MG/10 ML LIQUID UDC GT SCH (08:41)
[2020-02-15] MEDS: ACIDOPHILUS/BULGARICUS CHEW TAB GT SCH ×2 (08:41→20:44)
[2020-02-15] MEDS: MIRALAX 17 GM POWD.PACK GT SCH (08:41)
[2020-02-15] MEDS: levETIRAcetam 500 MG/5 ML LIQUID UDC GT SCH ×2 (08:41→20:44)
[2020-02-15] MEDS: NEOMY/BACITRA/POLYMYXIN B OINT UD PACKET TP SCH ×2 (08:41→20:45)
[2020-02-15] MEDS: COD LIVER OIL/ZINC OXIDE OINT 113 GM TUBE TP SCH ×2 (08:41→20:45)
--- NOTE | 2020-02-15 17:30 | NUR ---
Provided video chat to pt and her mother with no problem, pt remains comfortable and with no distress noted.
[2020-02-15 20:00] VITALS: BP 112/71
[2020-02-15] MEDS: MAGNESIUM COMPLEX GT SCH (20:44)
[2020-02-15] MEDS: MELATONIN 3 MG TABLET GT SCH (20:44)
[2020-02-15] MEDS: CRANBERRY 500 MG GT SCH (20:44)
[2020-02-15] MEDS: PROTEIN SUPPLEMENT (PROSTAT) 30 ML LIQUID GT SCH (20:45)
[2020-02-15] MEDS: NUTRISOURCE FIBER 4 GM PACKET GT SCH (20:45)
[2020-02-15] MEDS: ASCORBIC ACID 500 MG TABLET GT SCH (20:45)
[2020-02-15] MEDS: RIVAROXABAN 15 MG TABLET GT SCH (20:55)
[2020-02-16] MEDS: METOCLOPRAMIDE HCL 10 MG/10 ML UDC GT SCH ×5 (00:43→23:00)
[2020-02-16] MEDS: TWOCAL HN 1,000 ML LIQUID GT PRN (02:39)
[2020-02-16] MEDS: BACLOFEN 20 MG TABLET GT SCH ×3 (05:44→21:31)
[2020-02-16] MEDS: MULTIVIT, IRON, MIN NO. 8, FA TABLET GT SCH (05:44)
[2020-02-16] MEDS: OMEPRAZOLE 20 MG CAPSULE.DR GT SCH (05:44)
[2020-02-16 07:34] VITALS: BP 95/51
[2020-02-16] MEDS: HYDROGEN PEROXIDE 3% 118 ML BOTTLE TP SCH ×2 (08:22→21:38)
[2020-02-16] MEDS: DOCUSATE SODIUM 100 MG/10 ML LIQUID UDC GT SCH (08:51)
[2020-02-16] MEDS: ACIDOPHILUS/BULGARICUS CHEW TAB GT SCH ×2 (08:51→20:36)
[2020-02-16] MEDS: levETIRAcetam 500 MG/5 ML LIQUID UDC GT SCH ×2 (08:51→20:36)
[2020-02-16] MEDS: POTASSIUM CHLORIDE 40 MEQ/30 ML LIQUID UDC GT SCH (08:52)
[2020-02-16] MEDS: MIRALAX 17 GM POWD.PACK GT SCH (08:52)
[2020-02-16] MEDS: COD LIVER OIL/ZINC OXIDE OINT 113 GM TUBE TP SCH ×2 (08:53→20:37)
[2020-02-16] MEDS: NEOMY/BACITRA/POLYMYXIN B OINT UD PACKET TP SCH ×2 (08:53→20:37)
[2020-02-16] MEDS: COAL TAR TOP SCH (09:45)
[2020-02-16 20:00] VITALS: BP 113/69
[2020-02-16] MEDS: RIVAROXABAN 15 MG TABLET GT SCH (20:34)
[2020-02-16] MEDS: PROTEIN SUPPLEMENT (PROSTAT) 30 ML LIQUID GT SCH (20:36)
[2020-02-16] MEDS: NUTRISOURCE FIBER 4 GM PACKET GT SCH (20:36)
[2020-02-16] MEDS: MAGNESIUM COMPLEX GT SCH (20:36)
[2020-02-16] MEDS: CRANBERRY 500 MG GT SCH (20:36)
[2020-02-16] MEDS: MELATONIN 3 MG TABLET GT SCH (20:36)
[2020-02-16] MEDS: ASCORBIC ACID 500 MG TABLET GT SCH (20:37)
[2020-02-17] MEDS: MULTIVIT, IRON, MIN NO. 8, FA TABLET GT SCH (05:36)
[2020-02-17] MEDS: METOCLOPRAMIDE HCL 10 MG/10 ML UDC GT SCH ×3 (05:36→17:24)
[2020-02-17] MEDS: BACLOFEN 20 MG TABLET GT SCH ×3 (05:36→21:10)
[2020-02-17] MEDS: OMEPRAZOLE 20 MG CAPSULE.DR GT SCH (05:36)
[2020-02-17 07:46] VITALS: BP 93/56
[2020-02-17] MEDS: HYDROGEN PEROXIDE 3% 118 ML BOTTLE TP SCH ×2 (08:06→21:15)
[2020-02-17] MEDS: DOCUSATE SODIUM 100 MG/10 ML LIQUID UDC GT SCH (08:16)
[2020-02-17] MEDS: POTASSIUM CHLORIDE 40 MEQ/30 ML LIQUID UDC GT SCH (08:17)
[2020-02-17] MEDS: ACIDOPHILUS/BULGARICUS CHEW TAB GT SCH ×2 (08:17→20:34)
[2020-02-17] MEDS: NEOMY/BACITRA/POLYMYXIN B OINT UD PACKET TP SCH ×2 (08:17→20:36)
[2020-02-17] MEDS: MIRALAX 17 GM POWD.PACK GT SCH (08:17)
[2020-02-17] MEDS: levETIRAcetam 500 MG/5 ML LIQUID UDC GT SCH ×2 (08:17→20:34)
[2020-02-17] MEDS: COD LIVER OIL/ZINC OXIDE OINT 113 GM TUBE TP SCH ×2 (08:17→20:36)
--- NOTE | 2020-02-17 12:45 | NUR ---
Zoom meeting provided for patient and mom Jeanne.
[2020-02-17] MEDS: TWOCAL HN 1,000 ML LIQUID GT PRN (18:30)
[2020-02-17] MEDS: PROTEIN SUPPLEMENT (PROSTAT) 30 ML LIQUID GT SCH (20:36)
[2020-02-17] MEDS: MAGNESIUM COMPLEX GT SCH (20:36)
[2020-02-17] MEDS: MELATONIN 3 MG TABLET GT SCH (20:36)
[2020-02-17] MEDS: CRANBERRY 500 MG GT SCH (20:36)
[2020-02-17] MEDS: ASCORBIC ACID 500 MG TABLET GT SCH (20:36)
[2020-02-17] MEDS: NUTRISOURCE FIBER 4 GM PACKET GT SCH (20:36)
[2020-02-17] MEDS: RIVAROXABAN 15 MG TABLET GT SCH (21:02)
[2020-02-17 23:00] VITALS: BP 113/65
[2020-02-18] MEDS: METOCLOPRAMIDE HCL 10 MG/10 ML UDC GT SCH ×4 (00:49→17:57)
[2020-02-18] MEDS: MULTIVIT, IRON, MIN NO. 8, FA TABLET GT SCH (05:20)
[2020-02-18] MEDS: BACLOFEN 20 MG TABLET GT SCH ×3 (05:20→21:59)
[2020-02-18] MEDS: OMEPRAZOLE 20 MG CAPSULE.DR GT SCH (05:20)
[2020-02-18] MEDS: HYDROGEN PEROXIDE 3% 118 ML BOTTLE TP SCH ×2 (07:13→21:34)
[2020-02-18 07:40] VITALS: BP 94/62
[2020-02-18] MEDS: DOCUSATE SODIUM 100 MG/10 ML LIQUID UDC GT SCH (08:10)
[2020-02-18] MEDS: ACIDOPHILUS/BULGARICUS CHEW TAB GT SCH ×2 (08:10→21:58)
[2020-02-18] MEDS: COD LIVER OIL/ZINC OXIDE OINT 113 GM TUBE TP SCH ×2 (08:11→21:59)
[2020-02-18] MEDS: MIRALAX 17 GM POWD.PACK GT SCH (08:11)
[2020-02-18] MEDS: POTASSIUM CHLORIDE 40 MEQ/30 ML LIQUID UDC GT SCH (08:11)
[2020-02-18] MEDS: levETIRAcetam 500 MG/5 ML LIQUID UDC GT SCH ×2 (08:11→21:58)
[2020-02-18] MEDS: NEOMY/BACITRA/POLYMYXIN B OINT UD PACKET TP SCH ×2 (08:17→21:59)
--- NOTE | 2020-02-18 18:16 | NUR ---
Pt. v/s wnl. No respiratory distress. Pt stable at this time. Video chat provided with the family (dad). Family said "thank you everybody".
[2020-02-18] MEDS: RIVAROXABAN 15 MG TABLET GT SCH (21:00)
[2020-02-18] MEDS: PROTEIN SUPPLEMENT (PROSTAT) 30 ML LIQUID GT SCH (21:58)
[2020-02-18] MEDS: ASCORBIC ACID 500 MG TABLET GT SCH (21:58)
[2020-02-18] MEDS: CRANBERRY 500 MG GT SCH (21:58)
[2020-02-18] MEDS: NUTRISOURCE FIBER 4 GM PACKET GT SCH (21:58)
[2020-02-18] MEDS: MELATONIN 3 MG TABLET GT SCH (21:58)
[2020-02-18] MEDS: MAGNESIUM COMPLEX GT SCH (21:58)
[2020-02-18 23:31] VITALS: BP 101/68
[2020-02-19] MEDS: METOCLOPRAMIDE HCL 10 MG/10 ML UDC GT SCH ×4 (00:42→17:47)
[2020-02-19] MEDS: BACLOFEN 20 MG TABLET GT SCH ×3 (06:24→21:56)
[2020-02-19] MEDS: MULTIVIT, IRON, MIN NO. 8, FA TABLET GT SCH (06:24)
[2020-02-19] MEDS: OMEPRAZOLE 20 MG CAPSULE.DR GT SCH (06:24)
[2020-02-19 07:33] VITALS: BP 108/67
[2020-02-19] MEDS: ACIDOPHILUS/BULGARICUS CHEW TAB GT SCH ×2 (08:57→21:56)
[2020-02-19] MEDS: COD LIVER OIL/ZINC OXIDE OINT 113 GM TUBE TP SCH ×2 (08:57→21:56)
[2020-02-19] MEDS: MIRALAX 17 GM POWD.PACK GT SCH (08:57)
[2020-02-19] MEDS: NEOMY/BACITRA/POLYMYXIN B OINT UD PACKET TP SCH ×2 (08:57→21:56)
[2020-02-19] MEDS: POTASSIUM CHLORIDE 40 MEQ/30 ML LIQUID UDC GT SCH (08:57)
[2020-02-19] MEDS: levETIRAcetam 500 MG/5 ML LIQUID UDC GT SCH ×2 (08:57→21:56)
[2020-02-19] MEDS: DOCUSATE SODIUM 100 MG/10 ML LIQUID UDC GT SCH (08:57)
[2020-02-19] MEDS: HYDROGEN PEROXIDE 3% 118 ML BOTTLE TP SCH ×2 (09:09→21:36)
[2020-02-19] MEDS: TWOCAL HN 1,000 ML LIQUID GT PRN (12:24)
--- NOTE | 2020-02-19 17:50 | NUR ---
Pt.'s v/s wnl. No SOB or any respiratory distress a this time. Video chat provided with the family.
[2020-02-19 20:45] VITALS: BP 115/66
[2020-02-19] MEDS: RIVAROXABAN 15 MG TABLET GT SCH (21:00)
[2020-02-19] MEDS: CRANBERRY 500 MG GT SCH (21:56)
[2020-02-19] MEDS: ASCORBIC ACID 500 MG TABLET GT SCH (21:56)
[2020-02-19] MEDS: MAGNESIUM COMPLEX GT SCH (21:56)
[2020-02-19] MEDS: NUTRISOURCE FIBER 4 GM PACKET GT SCH (21:56)
[2020-02-19] MEDS: MELATONIN 3 MG TABLET GT SCH (21:56)
[2020-02-19] MEDS: PROTEIN SUPPLEMENT (PROSTAT) 30 ML LIQUID GT SCH (21:56)
[2020-02-20] MEDS: METOCLOPRAMIDE HCL 10 MG/10 ML UDC GT SCH ×4 (00:52→17:37)
[2020-02-20] MEDS: BACLOFEN 20 MG TABLET GT SCH ×3 (06:12→22:15)
[2020-02-20] MEDS: OMEPRAZOLE 20 MG CAPSULE.DR GT SCH (06:12)
[2020-02-20] MEDS: MULTIVIT, IRON, MIN NO. 8, FA TABLET GT SCH (06:13)
[2020-02-20 08:00] VITALS: BP 113/69
[2020-02-20] MEDS: MIRALAX 17 GM POWD.PACK GT SCH (09:13)
[2020-02-20] MEDS: COD LIVER OIL/ZINC OXIDE OINT 113 GM TUBE TP SCH ×2 (09:13→20:41)
[2020-02-20] MEDS: POTASSIUM CHLORIDE 40 MEQ/30 ML LIQUID UDC GT SCH (09:13)
[2020-02-20] MEDS: ACIDOPHILUS/BULGARICUS CHEW TAB GT SCH ×2 (09:13→20:37)
[2020-02-20] MEDS: DOCUSATE SODIUM 100 MG/10 ML LIQUID UDC GT SCH (09:13)
[2020-02-20] MEDS: COAL TAR TOP SCH (09:13)
[2020-02-20] MEDS: levETIRAcetam 500 MG/5 ML LIQUID UDC GT SCH ×2 (09:13→20:37)
[2020-02-20] MEDS: NEOMY/BACITRA/POLYMYXIN B OINT UD PACKET TP SCH ×2 (09:14→20:42)
[2020-02-20] MEDS: HYDROGEN PEROXIDE 3% 118 ML BOTTLE TP SCH ×2 (09:16→21:07)
[2020-02-20 20:04] VITALS: BP 102/59
[2020-02-20] MEDS: MELATONIN 3 MG TABLET GT SCH (20:37)
[2020-02-20] MEDS: NUTRISOURCE FIBER 4 GM PACKET GT SCH (20:38)
[2020-02-20] MEDS: MAGNESIUM COMPLEX GT SCH (20:38)
[2020-02-20] MEDS: CRANBERRY 500 MG GT SCH (20:38)
[2020-02-20] MEDS: PROTEIN SUPPLEMENT (PROSTAT) 30 ML LIQUID GT SCH (20:39)
[2020-02-20] MEDS: ASCORBIC ACID 500 MG TABLET GT SCH (20:40)
[2020-02-20] MEDS: RIVAROXABAN 15 MG TABLET GT SCH (20:41)
[2020-02-21] MEDS: METOCLOPRAMIDE HCL 10 MG/10 ML UDC GT SCH ×4 (00:14→17:28)
[2020-02-21] MEDS: BACLOFEN 20 MG TABLET GT SCH ×3 (06:08→22:16)
[2020-02-21] MEDS: OMEPRAZOLE 20 MG CAPSULE.DR GT SCH (06:08)
[2020-02-21] MEDS: MULTIVIT, IRON, MIN NO. 8, FA TABLET GT SCH (06:08)
[2020-02-21 08:00] VITALS: BP 93/55
[2020-02-21] MEDS: COD LIVER OIL/ZINC OXIDE OINT 113 GM TUBE TP SCH ×2 (08:46→20:31)
[2020-02-21] MEDS: levETIRAcetam 500 MG/5 ML LIQUID UDC GT SCH ×2 (08:46→20:30)
[2020-02-21] MEDS: POTASSIUM CHLORIDE 40 MEQ/30 ML LIQUID UDC GT SCH (08:46)
[2020-02-21] MEDS: ACIDOPHILUS/BULGARICUS CHEW TAB GT SCH ×2 (08:46→20:30)
[2020-02-21] MEDS: DOCUSATE SODIUM 100 MG/10 ML LIQUID UDC GT SCH (08:46)
[2020-02-21] MEDS: NEOMY/BACITRA/POLYMYXIN B OINT UD PACKET TP SCH ×2 (08:46→20:31)
[2020-02-21] MEDS: MIRALAX 17 GM POWD.PACK GT SCH (08:46)
[2020-02-21] MEDS: HYDROGEN PEROXIDE 3% 118 ML BOTTLE TP SCH ×2 (09:25→21:54)
--- NOTE | 2020-02-21 15:30 | NUR ---
Provided video chat to pt. and her father with no problem, kept pt clean and comfortable all needs attended and anticipated.
[2020-02-21 20:08] VITALS: BP 100/62
[2020-02-21] MEDS: RIVAROXABAN 15 MG TABLET GT SCH (20:30)
[2020-02-21] MEDS: MELATONIN 3 MG TABLET GT SCH (20:30)
[2020-02-21] MEDS: MAGNESIUM COMPLEX GT SCH (20:30)
[2020-02-21] MEDS: CRANBERRY 500 MG GT SCH (20:30)
[2020-02-21] MEDS: NUTRISOURCE FIBER 4 GM PACKET GT SCH (20:30)
[2020-02-21] MEDS: ASCORBIC ACID 500 MG TABLET GT SCH (20:31)
[2020-02-21] MEDS: PROTEIN SUPPLEMENT (PROSTAT) 30 ML LIQUID GT SCH (20:31)
[2020-02-22] MEDS: METOCLOPRAMIDE HCL 10 MG/10 ML UDC GT SCH ×4 (00:47→17:17)
[2020-02-22] MEDS: BACLOFEN 20 MG TABLET GT SCH ×3 (06:04→22:11)
[2020-02-22] MEDS: OMEPRAZOLE 20 MG CAPSULE.DR GT SCH (06:05)
[2020-02-22] MEDS: MULTIVIT, IRON, MIN NO. 8, FA TABLET GT SCH (06:05)
[2020-02-22 08:00] VITALS: BP 109/65
[2020-02-22] MEDS: ACIDOPHILUS/BULGARICUS CHEW TAB GT SCH ×2 (08:37→20:41)
[2020-02-22] MEDS: DOCUSATE SODIUM 100 MG/10 ML LIQUID UDC GT SCH (08:37)
[2020-02-22] MEDS: NEOMY/BACITRA/POLYMYXIN B OINT UD PACKET TP SCH ×2 (08:38→20:42)
[2020-02-22] MEDS: MIRALAX 17 GM POWD.PACK GT SCH (08:38)
[2020-02-22] MEDS: COD LIVER OIL/ZINC OXIDE OINT 113 GM TUBE TP SCH ×2 (08:38→20:42)
[2020-02-22] MEDS: levETIRAcetam 500 MG/5 ML LIQUID UDC GT SCH ×2 (08:38→20:41)
[2020-02-22] MEDS: POTASSIUM CHLORIDE 40 MEQ/30 ML LIQUID UDC GT SCH (08:38)
[2020-02-22] MEDS: HYDROGEN PEROXIDE 3% 118 ML BOTTLE TP SCH ×2 (09:44→21:55)
--- NOTE | 2020-02-22 15:30 | NUR ---
Provided video chat for pt and her mother with no problem, pt kept clean and comfortable, all needs attended and anticipated.
[2020-02-22 20:00] VITALS: BP 111/62
--- NOTE | 2020-02-22 20:39 | NUR ---
NOTIFIED RESPONSIBLE DEMOCRAT, FRENCH FRY, OF COVID-19 POSSIBLE EXPOSURE AND TESTING PLAN. RESPONSIBLE DEMOCRAT VERBALIZED UNDERSTANDING.
[2020-02-22] MEDS: MELATONIN 3 MG TABLET GT SCH (20:41)
[2020-02-22] MEDS: NUTRISOURCE FIBER 4 GM PACKET GT SCH (20:41)
[2020-02-22] MEDS: PROTEIN SUPPLEMENT (PROSTAT) 30 ML LIQUID GT SCH (20:41)
[2020-02-22] MEDS: ASCORBIC ACID 500 MG TABLET GT SCH (20:41)
[2020-02-22] MEDS: CRANBERRY 500 MG GT SCH (20:41)
[2020-02-22] MEDS: MAGNESIUM COMPLEX GT SCH (20:41)
[2020-02-22] MEDS: RIVAROXABAN 15 MG TABLET GT SCH (20:42)
[2020-02-23] MEDS: METOCLOPRAMIDE HCL 10 MG/10 ML UDC GT SCH ×5 (00:24→23:09)
--- NOTE | 2020-02-23 02:00 | NUR ---
New order for COVID-19 test per [facility] COVID-19 requirement.
[2020-02-23] MEDS: TWOCAL HN 1,000 ML LIQUID GT PRN (03:59)
[2020-02-23] MEDS: OMEPRAZOLE 20 MG CAPSULE.DR GT SCH (05:44)
[2020-02-23] MEDS: MULTIVIT, IRON, MIN NO. 8, FA TABLET GT SCH (05:44)
[2020-02-23] MEDS: BACLOFEN 20 MG TABLET GT SCH ×3 (05:44→21:14)
[2020-02-23] MEDS: HYDROGEN PEROXIDE 3% 118 ML BOTTLE TP SCH ×2 (07:19→21:30)
[2020-02-23 08:00] VITALS: BP 107/67
[2020-02-23] MEDS: ACIDOPHILUS/BULGARICUS CHEW TAB GT SCH ×2 (09:00→20:43)
[2020-02-23] MEDS: DOCUSATE SODIUM 100 MG/10 ML LIQUID UDC GT SCH (09:00)
[2020-02-23] MEDS: MIRALAX 17 GM POWD.PACK GT SCH (09:00)
[2020-02-23] MEDS: levETIRAcetam 500 MG/5 ML LIQUID UDC GT SCH ×2 (09:00→20:43)
[2020-02-23] MEDS: COD LIVER OIL/ZINC OXIDE OINT 113 GM TUBE TP SCH ×2 (09:01→20:43)
[2020-02-23] MEDS: POTASSIUM CHLORIDE 40 MEQ/30 ML LIQUID UDC GT SCH (09:01)
[2020-02-23] MEDS: COAL TAR TOP SCH (09:01)
--- NOTE | 2020-02-23 16:45 | NUR ---
ZOOM MEETING PROVIDED TO PT'S SISTER.
[2020-02-23 20:30] VITALS: BP 132/69
[2020-02-23] MEDS: RIVAROXABAN 15 MG TABLET GT SCH (20:39)
[2020-02-23] MEDS: MAGNESIUM COMPLEX GT SCH (20:43)
[2020-02-23] MEDS: MELATONIN 3 MG TABLET GT SCH (20:43)
[2020-02-23] MEDS: NUTRISOURCE FIBER 4 GM PACKET GT SCH (20:43)
[2020-02-23] MEDS: ASCORBIC ACID 500 MG TABLET GT SCH (20:43)
[2020-02-23] MEDS: CRANBERRY 500 MG GT SCH (20:43)
[2020-02-23] MEDS: PROTEIN SUPPLEMENT (PROSTAT) 30 ML LIQUID GT SCH (20:43)
[2020-02-24] MEDS: METOCLOPRAMIDE HCL 10 MG/10 ML UDC GT SCH ×4 (05:15→23:21)
[2020-02-24] MEDS: BACLOFEN 20 MG TABLET GT SCH ×3 (05:15→21:06)
[2020-02-24] MEDS: OMEPRAZOLE 20 MG CAPSULE.DR GT SCH (05:15)
[2020-02-24] MEDS: MULTIVIT, IRON, MIN NO. 8, FA TABLET GT SCH (05:15)
[2020-02-24 07:48] VITALS: BP 120/63
[2020-02-24] MEDS: HYDROGEN PEROXIDE 3% 118 ML BOTTLE TP SCH ×2 (09:00→21:44)
[2020-02-24] MEDS: DOCUSATE SODIUM 100 MG/10 ML LIQUID UDC GT SCH (09:03)
[2020-02-24] MEDS: levETIRAcetam 500 MG/5 ML LIQUID UDC GT SCH ×2 (09:04→20:52)
[2020-02-24] MEDS: MIRALAX 17 GM POWD.PACK GT SCH (09:04)
[2020-02-24] MEDS: ACIDOPHILUS/BULGARICUS CHEW TAB GT SCH ×2 (09:04→20:52)
[2020-02-24] MEDS: POTASSIUM CHLORIDE 40 MEQ/30 ML LIQUID UDC GT SCH (09:04)
[2020-02-24] MEDS: COD LIVER OIL/ZINC OXIDE OINT 113 GM TUBE TP SCH ×2 (09:04→20:53)
[2020-02-24] MEDS: RIVAROXABAN 15 MG TABLET GT SCH (20:46)
[2020-02-24] MEDS: CRANBERRY 500 MG GT SCH (20:52)
[2020-02-24] MEDS: MELATONIN 3 MG TABLET GT SCH (20:52)
[2020-02-24] MEDS: NUTRISOURCE FIBER 4 GM PACKET GT SCH (20:53)
[2020-02-24] MEDS: PROTEIN SUPPLEMENT (PROSTAT) 30 ML LIQUID GT SCH (20:53)
[2020-02-24] MEDS: ASCORBIC ACID 500 MG TABLET GT SCH (20:53)
[2020-02-24] MEDS: MAGNESIUM COMPLEX GT SCH (20:53)
[2020-02-24] MEDS: TWOCAL HN 1,000 ML LIQUID GT PRN (22:00)
[2020-02-24 23:18] VITALS: BP 98/64
[2020-02-25] MEDS: METOCLOPRAMIDE HCL 10 MG/10 ML UDC GT SCH ×4 (05:09→23:16)
[2020-02-25] MEDS: BACLOFEN 20 MG TABLET GT SCH ×3 (05:09→21:18)
[2020-02-25] MEDS: MULTIVIT, IRON, MIN NO. 8, FA TABLET GT SCH (05:09)
[2020-02-25] MEDS: OMEPRAZOLE 20 MG CAPSULE.DR GT SCH (05:09)
[2020-02-25 07:33] VITALS: BP 97/61
[2020-02-25] MEDS: MIRALAX 17 GM POWD.PACK GT SCH (08:38)
[2020-02-25] MEDS: levETIRAcetam 500 MG/5 ML LIQUID UDC GT SCH ×2 (08:38→20:56)
[2020-02-25] MEDS: POTASSIUM CHLORIDE 40 MEQ/30 ML LIQUID UDC GT SCH (08:38)
[2020-02-25] MEDS: COD LIVER OIL/ZINC OXIDE OINT 113 GM TUBE TP SCH ×2 (08:38→20:56)
[2020-02-25] MEDS: DOCUSATE SODIUM 100 MG/10 ML LIQUID UDC GT SCH (08:38)
[2020-02-25] MEDS: ACIDOPHILUS/BULGARICUS CHEW TAB GT SCH ×2 (08:38→20:56)
[2020-02-25] MEDS: HYDROGEN PEROXIDE 3% 118 ML BOTTLE TP SCH ×2 (10:10→19:34)
[2020-02-25 20:32] VITALS: BP 117/77
[2020-02-25] MEDS: RIVAROXABAN 15 MG TABLET GT SCH (20:46)
[2020-02-25] MEDS: CRANBERRY 500 MG GT SCH (20:56)
[2020-02-25] MEDS: MAGNESIUM COMPLEX GT SCH (20:56)
[2020-02-25] MEDS: NUTRISOURCE FIBER 4 GM PACKET GT SCH (20:56)
[2020-02-25] MEDS: ASCORBIC ACID 500 MG TABLET GT SCH (20:56)
[2020-02-25] MEDS: PROTEIN SUPPLEMENT (PROSTAT) 30 ML LIQUID GT SCH (20:56)
[2020-02-25] MEDS: MELATONIN 3 MG TABLET GT SCH (20:56)
[2020-02-26] MEDS: METOCLOPRAMIDE HCL 10 MG/10 ML UDC GT SCH ×4 (05:06→23:12)
[2020-02-26] MEDS: OMEPRAZOLE 20 MG CAPSULE.DR GT SCH (05:06)
[2020-02-26] MEDS: BACLOFEN 20 MG TABLET GT SCH ×3 (05:06→21:35)
[2020-02-26] MEDS: MULTIVIT, IRON, MIN NO. 8, FA TABLET GT SCH (05:06)
[2020-02-26 07:42] VITALS: BP 103/55
[2020-02-26 08:00] VITALS: BP 103/55
[2020-02-26] MEDS: DOCUSATE SODIUM 100 MG/10 ML LIQUID UDC GT SCH (08:52)
[2020-02-26] MEDS: MIRALAX 17 GM POWD.PACK GT SCH (08:52)
[2020-02-26] MEDS: ACIDOPHILUS/BULGARICUS CHEW TAB GT SCH ×2 (08:52→21:31)
[2020-02-26] MEDS: levETIRAcetam 500 MG/5 ML LIQUID UDC GT SCH ×2 (08:52→21:32)
[2020-02-26] MEDS: COD LIVER OIL/ZINC OXIDE OINT 113 GM TUBE TP SCH ×2 (08:53→21:34)
[2020-02-26] MEDS: POTASSIUM CHLORIDE 40 MEQ/30 ML LIQUID UDC GT SCH (08:53)
[2020-02-26] MEDS: HYDROGEN PEROXIDE 3% 118 ML BOTTLE TP SCH ×2 (09:34→21:21)
--- NOTE | 2020-02-26 15:30 | NUR ---
Provided video chat to pt. and her mother with no problem noted, pt remains comfortable, all needs attended.
[2020-02-26 20:42] VITALS: BP 103/59
[2020-02-26] MEDS: RIVAROXABAN 15 MG TABLET GT SCH (21:00)
[2020-02-26] MEDS: MAGNESIUM COMPLEX GT SCH (21:33)
[2020-02-26] MEDS: CRANBERRY 500 MG GT SCH (21:33)
[2020-02-26] MEDS: MELATONIN 3 MG TABLET GT SCH (21:33)
[2020-02-26] MEDS: ASCORBIC ACID 500 MG TABLET GT SCH (21:34)
[2020-02-26] MEDS: NUTRISOURCE FIBER 4 GM PACKET GT SCH (21:34)
[2020-02-26] MEDS: PROTEIN SUPPLEMENT (PROSTAT) 30 ML LIQUID GT SCH (21:36)
[2020-02-27] MEDS: METOCLOPRAMIDE HCL 10 MG/10 ML UDC GT SCH ×3 (06:13→17:03)
[2020-02-27] MEDS: MULTIVIT, IRON, MIN NO. 8, FA TABLET GT SCH (06:13)
[2020-02-27] MEDS: OMEPRAZOLE 20 MG CAPSULE.DR GT SCH (06:13)
[2020-02-27] MEDS: BACLOFEN 20 MG TABLET GT SCH ×3 (06:13→22:39)
[2020-02-27] MEDS: HYDROGEN PEROXIDE 3% 118 ML BOTTLE TP SCH ×2 (07:26→21:04)
[2020-02-27 08:00] VITALS: BP 94/53
[2020-02-27] MEDS: levETIRAcetam 500 MG/5 ML LIQUID UDC GT SCH ×2 (08:54→20:18)
[2020-02-27] MEDS: DOCUSATE SODIUM 100 MG/10 ML LIQUID UDC GT SCH (08:54)
[2020-02-27] MEDS: ACIDOPHILUS/BULGARICUS CHEW TAB GT SCH ×2 (08:54→20:17)
[2020-02-27] MEDS: POTASSIUM CHLORIDE 40 MEQ/30 ML LIQUID UDC GT SCH (08:56)
[2020-02-27] MEDS: COAL TAR TOP SCH (08:56)
[2020-02-27] MEDS: COD LIVER OIL/ZINC OXIDE OINT 113 GM TUBE TP SCH ×2 (08:57→20:23)
[2020-02-27] MEDS: MIRALAX 17 GM POWD.PACK GT SCH (08:58)
--- NOTE | 2020-02-27 11:00 | NUR ---
ZOOM MEETING PROVIDED TO PATIENT'S SISTER. PT WAS CALM, NO SIGNS OF DISTRESS, AND COMFORTABLE IN BED.
[2020-02-27] MEDS: RIVAROXABAN 15 MG TABLET GT SCH (20:18)
[2020-02-27] MEDS: MELATONIN 3 MG TABLET GT SCH (20:19)
[2020-02-27] MEDS: PROTEIN SUPPLEMENT (PROSTAT) 30 ML LIQUID GT SCH (20:21)
[2020-02-27] MEDS: CRANBERRY 500 MG GT SCH (20:21)
[2020-02-27] MEDS: ASCORBIC ACID 500 MG TABLET GT SCH (20:21)
[2020-02-27] MEDS: MAGNESIUM COMPLEX GT SCH (20:21)
[2020-02-27] MEDS: NUTRISOURCE FIBER 4 GM PACKET GT SCH (20:21)
[2020-02-27 20:26] VITALS: BP 109/64
[2020-02-28] MEDS: BACLOFEN 20 MG TABLET GT SCH ×3 (05:14→21:07)
[2020-02-28] MEDS: METOCLOPRAMIDE HCL 10 MG/10 ML UDC GT SCH ×4 (05:17→17:05)
[2020-02-28] MEDS: MULTIVIT, IRON, MIN NO. 8, FA TABLET GT SCH (05:17)
[2020-02-28] MEDS: OMEPRAZOLE 20 MG CAPSULE.DR GT SCH (05:50)
[2020-02-28 08:00] VITALS: BP 95/53
[2020-02-28] MEDS: DOCUSATE SODIUM 100 MG/10 ML LIQUID UDC GT SCH (08:55)
[2020-02-28] MEDS: MIRALAX 17 GM POWD.PACK GT SCH (08:57)
[2020-02-28] MEDS: ACIDOPHILUS/BULGARICUS CHEW TAB GT SCH ×2 (08:57→21:02)
[2020-02-28] MEDS: levETIRAcetam 500 MG/5 ML LIQUID UDC GT SCH ×2 (08:57→21:02)
[2020-02-28] MEDS: POTASSIUM CHLORIDE 40 MEQ/30 ML LIQUID UDC GT SCH (08:58)
[2020-02-28] MEDS: COD LIVER OIL/ZINC OXIDE OINT 113 GM TUBE TP SCH ×2 (08:58→21:07)
[2020-02-28] MEDS: HYDROGEN PEROXIDE 3% 118 ML BOTTLE TP SCH ×2 (10:10→19:27)
--- NOTE | 2020-02-28 11:30 | NUR ---
Inform pt's mother Jeanne [place]ear[place]id 19 result are negative.
--- NOTE | 2020-02-28 11:30 | NUR ---
Notified pt's mother regarding the covid 19 results.
--- NOTE | 2020-02-28 11:47 | NUR ---
ZOOM MEETING PROVIDED TO PATIENT'S FATHER. PT WAS CALM, NO SIGNS OF DISTRESS, AND COMFORTABLE IN BED.
--- NOTE | 2020-02-28 12:00 | NUR ---
NOTIFIED RESPONSIBLE ALLIANCE PARTY, FATHER MR FRY, OF COVID-19 2ND TESTING PLAN. RESPONSIBLE [employer] PARTY VERBALIZED UNDERSTANDING.
[2020-02-28] MEDS: TWOCAL HN 1,000 ML LIQUID GT PRN (15:58)
--- NOTE | 2020-02-28 17:04 | NUR ---
New order for COVID-19 test per [facility] COVID-19 requirement.
[2020-02-28 20:07] VITALS: BP 106/80
[2020-02-28] MEDS: RIVAROXABAN 15 MG TABLET GT SCH (21:00)
[2020-02-28] MEDS: MELATONIN 3 MG TABLET GT SCH (21:02)
[2020-02-28] MEDS: NUTRISOURCE FIBER 4 GM PACKET GT SCH (21:06)
[2020-02-28] MEDS: MAGNESIUM COMPLEX GT SCH (21:06)
[2020-02-28] MEDS: PROTEIN SUPPLEMENT (PROSTAT) 30 ML LIQUID GT SCH (21:06)
[2020-02-28] MEDS: CRANBERRY 500 MG GT SCH (21:06)
[2020-02-28] MEDS: ASCORBIC ACID 500 MG TABLET GT SCH (21:06)
[2020-02-29] MEDS: METOCLOPRAMIDE HCL 10 MG/10 ML UDC GT SCH ×4 (00:28→17:27)
[2020-02-29] MEDS: BACLOFEN 20 MG TABLET GT SCH ×3 (05:41→21:26)
[2020-02-29] MEDS: OMEPRAZOLE 20 MG CAPSULE.DR GT SCH (05:41)
[2020-02-29] MEDS: MULTIVIT, IRON, MIN NO. 8, FA TABLET GT SCH (05:41)
[2020-02-29 08:11] VITALS: BP 96/56
[2020-02-29] MEDS: DOCUSATE SODIUM 100 MG/10 ML LIQUID UDC GT SCH (08:41)
[2020-02-29] MEDS: ACIDOPHILUS/BULGARICUS CHEW TAB GT SCH ×2 (08:41→21:18)
[2020-02-29] MEDS: COD LIVER OIL/ZINC OXIDE OINT 113 GM TUBE TP SCH ×2 (08:42→21:26)
[2020-02-29] MEDS: levETIRAcetam 500 MG/5 ML LIQUID UDC GT SCH ×2 (08:42→21:19)
[2020-02-29] MEDS: POTASSIUM CHLORIDE 40 MEQ/30 ML LIQUID UDC GT SCH (08:42)
[2020-02-29] MEDS: MIRALAX 17 GM POWD.PACK GT SCH (08:42)
[2020-02-29] MEDS: HYDROGEN PEROXIDE 3% 118 ML BOTTLE TP SCH ×2 (09:13→21:33)
--- NOTE | 2020-02-29 14:30 | NUR ---
provided zoom for patient with mother, patient stable, no signs of pain or discomfort noted, will continue to monitor.
--- NOTE | 2020-02-29 18:37 | NUR ---
PT'S FATHER MILLI AWARE OF COVID 19 TEST TOMORROW AND IN AGREEMENT.
[2020-02-29 20:00] VITALS: BP 102/69
[2020-02-29] MEDS: MELATONIN 3 MG TABLET GT SCH (21:00)
[2020-02-29] MEDS: CRANBERRY 500 MG GT SCH (21:20)
[2020-02-29] MEDS: PROTEIN SUPPLEMENT (PROSTAT) 30 ML LIQUID GT SCH (21:21)
[2020-02-29] MEDS: NUTRISOURCE FIBER 4 GM PACKET GT SCH (21:21)
[2020-02-29] MEDS: MAGNESIUM COMPLEX GT SCH (21:21)
[2020-02-29] MEDS: ASCORBIC ACID 500 MG TABLET GT SCH (21:22)
[2020-02-29] MEDS: RIVAROXABAN 15 MG TABLET GT SCH (21:26)
[2020-03-01] MEDS: METOCLOPRAMIDE HCL 10 MG/10 ML UDC GT SCH ×4 (00:29→17:32)
[2020-03-01] MEDS: OMEPRAZOLE 20 MG CAPSULE.DR GT SCH (05:45)
[2020-03-01] MEDS: MULTIVIT, IRON, MIN NO. 8, FA TABLET GT SCH (05:45)
[2020-03-01] MEDS: BACLOFEN 20 MG TABLET GT SCH ×3 (05:45→22:35)
[2020-03-01] MEDS: HYDROGEN PEROXIDE 3% 118 ML BOTTLE TP SCH ×2 (07:51→21:25)
[2020-03-01 08:10] VITALS: BP 109/62
[2020-03-01] MEDS: COD LIVER OIL/ZINC OXIDE OINT 113 GM TUBE TP SCH ×2 (08:13→21:00)
[2020-03-01] MEDS: ACIDOPHILUS/BULGARICUS CHEW TAB GT SCH ×2 (08:13→21:00)
[2020-03-01] MEDS: levETIRAcetam 500 MG/5 ML LIQUID UDC GT SCH ×2 (08:13→21:00)
[2020-03-01] MEDS: DOCUSATE SODIUM 100 MG/10 ML LIQUID UDC GT SCH (08:13)
[2020-03-01] MEDS: COAL TAR TOP SCH (08:13)
[2020-03-01] MEDS: POTASSIUM CHLORIDE 40 MEQ/30 ML LIQUID UDC GT SCH (08:13)
[2020-03-01] MEDS: MIRALAX 17 GM POWD.PACK GT SCH (08:13)
--- NOTE | 2020-03-01 11:30 | NUR ---
provided zoom for patient with sister, patient stable, no signs of pain or discomfort noted, will continue to monitor.
[2020-03-01] MEDS: TWOCAL HN 1,000 ML LIQUID GT PRN (17:32)
[2020-03-01 20:00] VITALS: BP 117/77
[2020-03-01] MEDS: NUTRISOURCE FIBER 4 GM PACKET GT SCH (21:00)
[2020-03-01] MEDS: PROTEIN SUPPLEMENT (PROSTAT) 30 ML LIQUID GT SCH (21:00)
[2020-03-01] MEDS: RIVAROXABAN 15 MG TABLET GT SCH (21:00)
[2020-03-01] MEDS: ASCORBIC ACID 500 MG TABLET GT SCH (21:00)
[2020-03-01] MEDS: MELATONIN 3 MG TABLET GT SCH (21:00)
[2020-03-01] MEDS: MAGNESIUM COMPLEX GT SCH (21:00)
[2020-03-01] MEDS: CRANBERRY 500 MG GT SCH (21:00)
[2020-03-02] MEDS: METOCLOPRAMIDE HCL 10 MG/10 ML UDC GT SCH ×5 (00:48→23:10)
[2020-03-02] MEDS: BACLOFEN 20 MG TABLET GT SCH ×3 (06:24→21:44)
[2020-03-02] MEDS: MULTIVIT, IRON, MIN NO. 8, FA TABLET GT SCH (06:24)
[2020-03-02] MEDS: OMEPRAZOLE 20 MG CAPSULE.DR GT SCH (06:24)
[2020-03-02 07:50] VITALS: BP 96/61
[2020-03-02] MEDS: HYDROGEN PEROXIDE 3% 118 ML BOTTLE TP SCH ×2 (08:51→21:16)
[2020-03-02] MEDS: POTASSIUM CHLORIDE 40 MEQ/30 ML LIQUID UDC GT SCH (09:00)
[2020-03-02] MEDS: DOCUSATE SODIUM 100 MG/10 ML LIQUID UDC GT SCH (09:00)
[2020-03-02] MEDS: MIRALAX 17 GM POWD.PACK GT SCH (09:00)
[2020-03-02] MEDS: ACIDOPHILUS/BULGARICUS CHEW TAB GT SCH ×2 (09:00→21:40)
[2020-03-02] MEDS: levETIRAcetam 500 MG/5 ML LIQUID UDC GT SCH ×2 (09:00→21:49)
[2020-03-02] MEDS: COD LIVER OIL/ZINC OXIDE OINT 113 GM TUBE TP SCH ×2 (09:00→21:43)
--- NOTE | 2020-03-02 14:00 | NUR ---
provided zoom for patient with sister, patient stable, no signs of pain or discomfort noted, will continue to monitor.
[2020-03-02 20:00] VITALS: BP 105/61
[2020-03-02] MEDS: RIVAROXABAN 15 MG TABLET GT SCH (21:00)
[2020-03-02] MEDS: CRANBERRY 500 MG GT SCH (21:40)
[2020-03-02] MEDS: MAGNESIUM COMPLEX GT SCH (21:41)
[2020-03-02] MEDS: NUTRISOURCE FIBER 4 GM PACKET GT SCH (21:42)
[2020-03-02] MEDS: PROTEIN SUPPLEMENT (PROSTAT) 30 ML LIQUID GT SCH (21:42)
[2020-03-02] MEDS: ASCORBIC ACID 500 MG TABLET GT SCH (21:43)
[2020-03-02] MEDS: MELATONIN 3 MG TABLET GT SCH (21:46)
[2020-03-03] MEDS: BACLOFEN 20 MG TABLET GT SCH ×3 (06:18→21:15)
[2020-03-03] MEDS: OMEPRAZOLE 20 MG CAPSULE.DR GT SCH (06:18)
[2020-03-03] MEDS: METOCLOPRAMIDE HCL 10 MG/10 ML UDC GT SCH ×3 (06:19→17:12)
[2020-03-03] MEDS: MULTIVIT, IRON, MIN NO. 8, FA TABLET GT SCH (06:21)
[2020-03-03] MEDS: HYDROGEN PEROXIDE 3% 118 ML BOTTLE TP SCH ×2 (07:25→21:19)
[2020-03-03 07:54] VITALS: BP 104/63
[2020-03-03] MEDS: COD LIVER OIL/ZINC OXIDE OINT 113 GM TUBE TP SCH ×2 (08:41→21:14)
[2020-03-03] MEDS: DOCUSATE SODIUM 100 MG/10 ML LIQUID UDC GT SCH (08:41)
[2020-03-03] MEDS: POTASSIUM CHLORIDE 40 MEQ/30 ML LIQUID UDC GT SCH (08:41)
[2020-03-03] MEDS: ACIDOPHILUS/BULGARICUS CHEW TAB GT SCH ×2 (08:41→21:14)
[2020-03-03] MEDS: levETIRAcetam 500 MG/5 ML LIQUID UDC GT SCH ×2 (08:41→21:14)
[2020-03-03] MEDS: MIRALAX 17 GM POWD.PACK GT SCH (08:41)
--- NOTE | 2020-03-03 11:00 | NUR ---
Provided video chat to pt and her father with no problem, pt remains comfortable, all needs attended and anticipated.
[2020-03-03 20:00] VITALS: BP 123/72
[2020-03-03] MEDS: RIVAROXABAN 15 MG TABLET GT SCH (21:13)
[2020-03-03] MEDS: CRANBERRY 500 MG GT SCH (21:14)
[2020-03-03] MEDS: MELATONIN 3 MG TABLET GT SCH (21:14)
[2020-03-03] MEDS: PROTEIN SUPPLEMENT (PROSTAT) 30 ML LIQUID GT SCH (21:15)
[2020-03-03] MEDS: MAGNESIUM COMPLEX GT SCH (21:15)
[2020-03-03] MEDS: ASCORBIC ACID 500 MG TABLET GT SCH (21:15)
[2020-03-03] MEDS: NUTRISOURCE FIBER 4 GM PACKET GT SCH (21:15)
[2020-03-04] MEDS: METOCLOPRAMIDE HCL 10 MG/10 ML UDC GT SCH ×4 (00:43→17:23)
[2020-03-04] MEDS: BACLOFEN 20 MG TABLET GT SCH ×3 (05:37→21:20)
[2020-03-04] MEDS: OMEPRAZOLE 20 MG CAPSULE.DR GT SCH (05:37)
[2020-03-04] MEDS: MULTIVIT, IRON, MIN NO. 8, FA TABLET GT SCH (05:37)
[2020-03-04 07:39] VITALS: BP 101/65
[2020-03-04] MEDS: levETIRAcetam 500 MG/5 ML LIQUID UDC GT SCH ×2 (08:25→21:18)
[2020-03-04] MEDS: DOCUSATE SODIUM 100 MG/10 ML LIQUID UDC GT SCH (08:25)
[2020-03-04] MEDS: ACIDOPHILUS/BULGARICUS CHEW TAB GT SCH ×2 (08:25→21:18)
[2020-03-04] MEDS: POTASSIUM CHLORIDE 40 MEQ/30 ML LIQUID UDC GT SCH (08:26)
[2020-03-04] MEDS: MIRALAX 17 GM POWD.PACK GT SCH (08:26)
[2020-03-04] MEDS: COD LIVER OIL/ZINC OXIDE OINT 113 GM TUBE TP SCH ×2 (08:27→21:20)
[2020-03-04] MEDS: HYDROGEN PEROXIDE 3% 118 ML BOTTLE TP SCH ×2 (09:19→21:38)
--- NOTE | 2020-03-04 12:00 | NUR ---
PT, WAS SEEN AND EXAMINED BY [place] KIRK WITH NNO.
--- NOTE | 2020-03-04 12:00 | NUR ---
SEEN BY [place] GRANT.
--- NOTE | 2020-03-04 14:16 | NUR ---
PT'S FATHER WAS INFORMED RE: PT. NEGATIVE FOR COVID 19 TEST.
--- NOTE | 2020-03-04 15:00 | NUR ---
SEEN BYDR. CRUZ AND WITH NNO.
[2020-03-04 21:00] VITALS: BP 113/98
[2020-03-04] MEDS: MELATONIN 3 MG TABLET GT SCH (21:18)
[2020-03-04] MEDS: CRANBERRY 500 MG GT SCH (21:18)
[2020-03-04] MEDS: PROTEIN SUPPLEMENT (PROSTAT) 30 ML LIQUID GT SCH (21:19)
[2020-03-04] MEDS: MAGNESIUM COMPLEX GT SCH (21:19)
[2020-03-04] MEDS: ASCORBIC ACID 500 MG TABLET GT SCH (21:19)
[2020-03-04] MEDS: NUTRISOURCE FIBER 4 GM PACKET GT SCH (21:19)
[2020-03-04] MEDS: RIVAROXABAN 15 MG TABLET GT SCH (21:22)
[2020-03-05] MEDS: METOCLOPRAMIDE HCL 10 MG/10 ML UDC GT SCH ×4 (00:22→17:59)
[2020-03-05] MEDS: MULTIVIT, IRON, MIN NO. 8, FA TABLET GT SCH (05:25)
[2020-03-05] MEDS: OMEPRAZOLE 20 MG CAPSULE.DR GT SCH (05:25)
[2020-03-05] MEDS: BACLOFEN 20 MG TABLET GT SCH ×3 (05:25→21:08)
[2020-03-05] MEDS: TWOCAL HN 1,000 ML LIQUID GT PRN (07:00)
[2020-03-05 07:25] VITALS: BP 103/55
[2020-03-05] MEDS: ACIDOPHILUS/BULGARICUS CHEW TAB GT SCH ×2 (09:17→21:06)
[2020-03-05] MEDS: MIRALAX 17 GM POWD.PACK GT SCH (09:18)
[2020-03-05] MEDS: DOCUSATE SODIUM 100 MG/10 ML LIQUID UDC GT SCH (09:18)
[2020-03-05] MEDS: POTASSIUM CHLORIDE 40 MEQ/30 ML LIQUID UDC GT SCH (09:19)
[2020-03-05] MEDS: COAL TAR TOP SCH (09:19)
[2020-03-05] MEDS: COD LIVER OIL/ZINC OXIDE OINT 113 GM TUBE TP SCH ×2 (09:20→21:08)
[2020-03-05] MEDS: levETIRAcetam 500 MG/5 ML LIQUID UDC GT SCH ×2 (09:20→21:06)
[2020-03-05] MEDS: HYDROGEN PEROXIDE 3% 118 ML BOTTLE TP SCH ×2 (09:55→21:25)
[2020-03-05 20:38] VITALS: BP 124/78
[2020-03-05] MEDS: MAGNESIUM COMPLEX GT SCH (21:07)
[2020-03-05] MEDS: CRANBERRY 500 MG GT SCH (21:07)
[2020-03-05] MEDS: MELATONIN 3 MG TABLET GT SCH (21:07)
[2020-03-05] MEDS: ASCORBIC ACID 500 MG TABLET GT SCH (21:08)
[2020-03-05] MEDS: PROTEIN SUPPLEMENT (PROSTAT) 30 ML LIQUID GT SCH (21:08)
[2020-03-05] MEDS: NUTRISOURCE FIBER 4 GM PACKET GT SCH (21:08)
[2020-03-05] MEDS: RIVAROXABAN 15 MG TABLET GT SCH (21:10)
[2020-03-06] MEDS: METOCLOPRAMIDE HCL 10 MG/10 ML UDC GT SCH ×5 (00:34→23:24)
[2020-03-06] MEDS: BACLOFEN 20 MG TABLET GT SCH ×3 (05:39→21:56)
[2020-03-06] MEDS: OMEPRAZOLE 20 MG CAPSULE.DR GT SCH (05:39)
[2020-03-06] MEDS: MULTIVIT, IRON, MIN NO. 8, FA TABLET GT SCH (05:40)
[2020-03-06 07:29] VITALS: BP 103/62
[2020-03-06] MEDS: HYDROGEN PEROXIDE 3% 118 ML BOTTLE TP SCH ×2 (08:27→21:27)
[2020-03-06] MEDS: COD LIVER OIL/ZINC OXIDE OINT 113 GM TUBE TP SCH ×2 (09:00→20:30)
[2020-03-06] MEDS: DOCUSATE SODIUM 100 MG/10 ML LIQUID UDC GT SCH (09:00)
[2020-03-06] MEDS: MIRALAX 17 GM POWD.PACK GT SCH (09:00)
[2020-03-06] MEDS: levETIRAcetam 500 MG/5 ML LIQUID UDC GT SCH ×2 (09:00→20:30)
[2020-03-06] MEDS: POTASSIUM CHLORIDE 40 MEQ/30 ML LIQUID UDC GT SCH (09:00)
[2020-03-06] MEDS: ACIDOPHILUS/BULGARICUS CHEW TAB GT SCH ×2 (09:00→20:30)
[2020-03-06] MEDS: CRANBERRY 500 MG GT SCH (20:30)
[2020-03-06] MEDS: ASCORBIC ACID 500 MG TABLET GT SCH (20:30)
[2020-03-06] MEDS: PROTEIN SUPPLEMENT (PROSTAT) 30 ML LIQUID GT SCH (20:30)
[2020-03-06] MEDS: NUTRISOURCE FIBER 4 GM PACKET GT SCH (20:30)
[2020-03-06] MEDS: MELATONIN 3 MG TABLET GT SCH (20:30)
[2020-03-06 20:55] VITALS: BP_SYST 110; BP_SYST 120; BP_DIAS 55; BP_DIAS 75
[2020-03-06] MEDS: MAGNESIUM COMPLEX GT SCH (21:06)
[2020-03-06] MEDS: RIVAROXABAN 15 MG TABLET GT SCH (21:54)
[2020-03-07] MEDS: OMEPRAZOLE 20 MG CAPSULE.DR GT SCH (05:44)
[2020-03-07] MEDS: MULTIVIT, IRON, MIN NO. 8, FA TABLET GT SCH (05:44)
[2020-03-07] MEDS: BACLOFEN 20 MG TABLET GT SCH ×3 (05:44→21:04)
[2020-03-07] MEDS: METOCLOPRAMIDE HCL 10 MG/10 ML UDC GT SCH ×4 (05:44→23:43)
[2020-03-07] MEDS: TWOCAL HN 1,000 ML LIQUID GT PRN (06:33)
[2020-03-07 07:30] VITALS: BP 112/62
[2020-03-07] MEDS: MIRALAX 17 GM POWD.PACK GT SCH (08:10)
[2020-03-07] MEDS: ACIDOPHILUS/BULGARICUS CHEW TAB GT SCH ×2 (08:10→21:02)
[2020-03-07] MEDS: levETIRAcetam 500 MG/5 ML LIQUID UDC GT SCH ×2 (08:10→21:02)
[2020-03-07] MEDS: DOCUSATE SODIUM 100 MG/10 ML LIQUID UDC GT SCH (08:10)
[2020-03-07] MEDS: POTASSIUM CHLORIDE 40 MEQ/30 ML LIQUID UDC GT SCH (08:10)
[2020-03-07] MEDS: COD LIVER OIL/ZINC OXIDE OINT 113 GM TUBE TP SCH ×2 (08:11→21:04)
[2020-03-07 08:30] VITALS: BP 112/62
[2020-03-07] MEDS: HYDROGEN PEROXIDE 3% 118 ML BOTTLE TP SCH ×2 (09:00→21:33)
[2020-03-07 20:18] VITALS: BP 108/62
[2020-03-07] MEDS: MELATONIN 3 MG TABLET GT SCH (21:02)
[2020-03-07] MEDS: MAGNESIUM COMPLEX GT SCH (21:03)
[2020-03-07] MEDS: CRANBERRY 500 MG GT SCH (21:03)
[2020-03-07] MEDS: ASCORBIC ACID 500 MG TABLET GT SCH (21:04)
[2020-03-07] MEDS: PROTEIN SUPPLEMENT (PROSTAT) 30 ML LIQUID GT SCH (21:04)
[2020-03-07] MEDS: NUTRISOURCE FIBER 4 GM PACKET GT SCH (21:04)
[2020-03-07] MEDS: RIVAROXABAN 15 MG TABLET GT SCH (21:06)
[2020-03-08] MEDS: MULTIVIT, IRON, MIN NO. 8, FA TABLET GT SCH (05:22)
[2020-03-08] MEDS: OMEPRAZOLE 20 MG CAPSULE.DR GT SCH (05:22)
[2020-03-08] MEDS: BACLOFEN 20 MG TABLET GT SCH ×3 (05:22→21:03)
[2020-03-08] MEDS: METOCLOPRAMIDE HCL 10 MG/10 ML UDC GT SCH ×3 (05:22→17:25)
[2020-03-08 07:46] VITALS: BP 112/64
[2020-03-08] MEDS: DOCUSATE SODIUM 100 MG/10 ML LIQUID UDC GT SCH (08:44)
[2020-03-08] MEDS: MIRALAX 17 GM POWD.PACK GT SCH (08:45)
[2020-03-08] MEDS: ACIDOPHILUS/BULGARICUS CHEW TAB GT SCH ×2 (08:45→20:49)
[2020-03-08] MEDS: levETIRAcetam 500 MG/5 ML LIQUID UDC GT SCH ×2 (08:45→20:49)
[2020-03-08] MEDS: COD LIVER OIL/ZINC OXIDE OINT 113 GM TUBE TP SCH ×2 (08:46→20:50)
[2020-03-08] MEDS: POTASSIUM CHLORIDE 40 MEQ/30 ML LIQUID UDC GT SCH (08:46)
[2020-03-08] MEDS: COAL TAR TOP SCH (08:46)
[2020-03-08] MEDS: HYDROGEN PEROXIDE 3% 118 ML BOTTLE TP SCH ×2 (09:29→21:35)
--- NOTE | 2020-03-08 19:07 | NUR ---
zoom meeting provided to patient's sister.
[2020-03-08 20:24] VITALS: BP 106/69
[2020-03-08] MEDS: RIVAROXABAN 15 MG TABLET GT SCH (20:44)
[2020-03-08] MEDS: CRANBERRY 500 MG GT SCH (20:49)
[2020-03-08] MEDS: MELATONIN 3 MG TABLET GT SCH (20:49)
[2020-03-08] MEDS: MAGNESIUM COMPLEX GT SCH (20:50)
[2020-03-08] MEDS: ASCORBIC ACID 500 MG TABLET GT SCH (20:50)
[2020-03-08] MEDS: PROTEIN SUPPLEMENT (PROSTAT) 30 ML LIQUID GT SCH (20:50)
[2020-03-08] MEDS: NUTRISOURCE FIBER 4 GM PACKET GT SCH (20:50)
[2020-03-09] MEDS: METOCLOPRAMIDE HCL 10 MG/10 ML UDC GT SCH ×5 (00:56→23:17)
[2020-03-09] MEDS: TWOCAL HN 1,000 ML LIQUID GT PRN (02:23)
[2020-03-09] MEDS: MULTIVIT, IRON, MIN NO. 8, FA TABLET GT SCH (05:57)
[2020-03-09] MEDS: OMEPRAZOLE 20 MG CAPSULE.DR GT SCH (05:57)
[2020-03-09] MEDS: BACLOFEN 20 MG TABLET GT SCH ×3 (05:57→22:16)
[2020-03-09 07:42] VITALS: BP 106/68
[2020-03-09] MEDS: levETIRAcetam 500 MG/5 ML LIQUID UDC GT SCH ×2 (08:28→20:29)
[2020-03-09] MEDS: MIRALAX 17 GM POWD.PACK GT SCH (08:28)
[2020-03-09] MEDS: DOCUSATE SODIUM 100 MG/10 ML LIQUID UDC GT SCH (08:28)
[2020-03-09] MEDS: POTASSIUM CHLORIDE 40 MEQ/30 ML LIQUID UDC GT SCH (08:28)
[2020-03-09] MEDS: ACIDOPHILUS/BULGARICUS CHEW TAB GT SCH ×2 (08:28→20:29)
[2020-03-09] MEDS: COD LIVER OIL/ZINC OXIDE OINT 113 GM TUBE TP SCH ×2 (08:28→20:30)
[2020-03-09] MEDS: HYDROGEN PEROXIDE 3% 118 ML BOTTLE TP SCH ×2 (10:20→21:27)
[2020-03-09] MEDS: MAGNESIUM COMPLEX GT SCH (20:29)
[2020-03-09] MEDS: CRANBERRY 500 MG GT SCH (20:29)
[2020-03-09] MEDS: MELATONIN 3 MG TABLET GT SCH (20:29)
[2020-03-09] MEDS: NUTRISOURCE FIBER 4 GM PACKET GT SCH (20:29)
[2020-03-09] MEDS: PROTEIN SUPPLEMENT (PROSTAT) 30 ML LIQUID GT SCH (20:29)
[2020-03-09] MEDS: ASCORBIC ACID 500 MG TABLET GT SCH (20:29)
[2020-03-09 20:30] VITALS: BP 117/66
[2020-03-09] MEDS: RIVAROXABAN 15 MG TABLET GT SCH (20:58)
[2020-03-10] MEDS: METOCLOPRAMIDE HCL 10 MG/10 ML UDC GT SCH ×3 (05:08→18:09)
[2020-03-10] MEDS: MULTIVIT, IRON, MIN NO. 8, FA TABLET GT SCH (05:08)
[2020-03-10] MEDS: OMEPRAZOLE 20 MG CAPSULE.DR GT SCH (05:08)
[2020-03-10] MEDS: BACLOFEN 20 MG TABLET GT SCH ×3 (05:08→21:51)
[2020-03-10] MEDS: HYDROGEN PEROXIDE 3% 118 ML BOTTLE TP SCH ×2 (07:05→21:26)
[2020-03-10 07:47] VITALS: BP 108/62
[2020-03-10] MEDS: MIRALAX 17 GM POWD.PACK GT SCH (08:38)
[2020-03-10] MEDS: DOCUSATE SODIUM 100 MG/10 ML LIQUID UDC GT SCH (08:38)
[2020-03-10] MEDS: POTASSIUM CHLORIDE 40 MEQ/30 ML LIQUID UDC GT SCH (08:38)
[2020-03-10] MEDS: COD LIVER OIL/ZINC OXIDE OINT 113 GM TUBE TP SCH ×2 (08:38→21:51)
[2020-03-10] MEDS: levETIRAcetam 500 MG/5 ML LIQUID UDC GT SCH ×2 (08:38→21:50)
[2020-03-10] MEDS: ACIDOPHILUS/BULGARICUS CHEW TAB GT SCH ×2 (08:38→21:50)
[2020-03-10 20:15] VITALS: BP 114/69
[2020-03-10 20:17] VITALS: BP 114/69
[2020-03-10] MEDS: RIVAROXABAN 15 MG TABLET GT SCH (21:00)
[2020-03-10] MEDS: MELATONIN 3 MG TABLET GT SCH (21:50)
[2020-03-10] MEDS: MAGNESIUM COMPLEX GT SCH (21:51)
[2020-03-10] MEDS: NUTRISOURCE FIBER 4 GM PACKET GT SCH (21:51)
[2020-03-10] MEDS: CRANBERRY 500 MG GT SCH (21:51)
[2020-03-10] MEDS: ASCORBIC ACID 500 MG TABLET GT SCH (21:51)
[2020-03-10] MEDS: PROTEIN SUPPLEMENT (PROSTAT) 30 ML LIQUID GT SCH (21:51)
[2020-03-11] MEDS: METOCLOPRAMIDE HCL 10 MG/10 ML UDC GT SCH ×4 (00:45→18:14)
[2020-03-11] MEDS: BACLOFEN 20 MG TABLET GT SCH ×3 (06:04→22:07)
[2020-03-11] MEDS: MULTIVIT, IRON, MIN NO. 8, FA TABLET GT SCH (06:04)
[2020-03-11] MEDS: OMEPRAZOLE 20 MG CAPSULE.DR GT SCH (06:04)
[2020-03-11 07:29] VITALS: BP 96/55
[2020-03-11] MEDS: HYDROGEN PEROXIDE 3% 118 ML BOTTLE TP SCH ×2 (08:22→21:44)
[2020-03-11] MEDS: DOCUSATE SODIUM 100 MG/10 ML LIQUID UDC GT SCH (08:24)
[2020-03-11] MEDS: COD LIVER OIL/ZINC OXIDE OINT 113 GM TUBE TP SCH ×2 (08:24→21:00)
[2020-03-11] MEDS: POTASSIUM CHLORIDE 40 MEQ/30 ML LIQUID UDC GT SCH (08:24)
[2020-03-11] MEDS: ACIDOPHILUS/BULGARICUS CHEW TAB GT SCH ×2 (08:24→21:00)
[2020-03-11] MEDS: MIRALAX 17 GM POWD.PACK GT SCH (08:24)
[2020-03-11] MEDS: levETIRAcetam 500 MG/5 ML LIQUID UDC GT SCH ×2 (08:24→21:00)
[2020-03-11] MEDS: TWOCAL HN 1,000 ML LIQUID GT PRN (18:14)
[2020-03-11 20:06] VITALS: BP 97/66
[2020-03-11] MEDS: CRANBERRY 500 MG GT SCH (21:00)
[2020-03-11] MEDS: NUTRISOURCE FIBER 4 GM PACKET GT SCH (21:00)
[2020-03-11] MEDS: RIVAROXABAN 15 MG TABLET GT SCH (21:00)
[2020-03-11] MEDS: PROTEIN SUPPLEMENT (PROSTAT) 30 ML LIQUID GT SCH (21:00)
[2020-03-11] MEDS: MELATONIN 3 MG TABLET GT SCH (21:00)
[2020-03-11] MEDS: ASCORBIC ACID 500 MG TABLET GT SCH (21:00)
[2020-03-11] MEDS: MAGNESIUM COMPLEX GT SCH (21:00)
[2020-03-12] MEDS: METOCLOPRAMIDE HCL 10 MG/10 ML UDC GT SCH ×4 (00:50→17:34)
[2020-03-12] MEDS: OMEPRAZOLE 20 MG CAPSULE.DR GT SCH (05:36)
[2020-03-12] MEDS: BACLOFEN 20 MG TABLET GT SCH ×3 (05:36→22:24)
[2020-03-12] MEDS: MULTIVIT, IRON, MIN NO. 8, FA TABLET GT SCH (05:36)
[2020-03-12 07:11] VITALS: BP 90/46
[2020-03-12] MEDS: DOCUSATE SODIUM 100 MG/10 ML LIQUID UDC GT SCH (08:11)
[2020-03-12] MEDS: COAL TAR TOP SCH (08:11)
[2020-03-12] MEDS: MIRALAX 17 GM POWD.PACK GT SCH (08:11)
[2020-03-12] MEDS: ACIDOPHILUS/BULGARICUS CHEW TAB GT SCH ×2 (08:11→20:40)
[2020-03-12] MEDS: levETIRAcetam 500 MG/5 ML LIQUID UDC GT SCH ×2 (08:11→20:41)
[2020-03-12] MEDS: COD LIVER OIL/ZINC OXIDE OINT 113 GM TUBE TP SCH ×2 (08:12→20:44)
[2020-03-12] MEDS: HYDROGEN PEROXIDE 3% 118 ML BOTTLE TP SCH ×2 (09:14→19:19)
[2020-03-12] MEDS: POTASSIUM CHLORIDE 40 MEQ/30 ML LIQUID UDC GT SCH (09:20)
--- NOTE | 2020-03-12 11:51 | NUR ---
video chat provided with the family (sister) and pt. Family is appreciative and thankful.
[2020-03-12 20:11] VITALS: BP 96/63
[2020-03-12] MEDS: MELATONIN 3 MG TABLET GT SCH (20:41)
[2020-03-12] MEDS: NUTRISOURCE FIBER 4 GM PACKET GT SCH (20:42)
[2020-03-12] MEDS: PROTEIN SUPPLEMENT (PROSTAT) 30 ML LIQUID GT SCH (20:42)
[2020-03-12] MEDS: ASCORBIC ACID 500 MG TABLET GT SCH (20:42)
[2020-03-12] MEDS: CRANBERRY 500 MG GT SCH (20:42)
[2020-03-12] MEDS: MAGNESIUM COMPLEX GT SCH (20:42)
[2020-03-12] MEDS: RIVAROXABAN 15 MG TABLET GT SCH (20:44)
[2020-03-13] MEDS: METOCLOPRAMIDE HCL 10 MG/10 ML UDC GT SCH ×4 (00:25→17:29)
[2020-03-13] MEDS: MULTIVIT, IRON, MIN NO. 8, FA TABLET GT SCH (05:24)
[2020-03-13] MEDS: BACLOFEN 20 MG TABLET GT SCH ×3 (05:24→22:10)
[2020-03-13] MEDS: OMEPRAZOLE 20 MG CAPSULE.DR GT SCH (05:24)
[2020-03-13 07:18] VITALS: BP 93/52
[2020-03-13] MEDS: HYDROGEN PEROXIDE 3% 118 ML BOTTLE TP SCH ×2 (09:00→21:31)
[2020-03-13] MEDS: levETIRAcetam 500 MG/5 ML LIQUID UDC GT SCH ×2 (09:20→20:58)
[2020-03-13] MEDS: MIRALAX 17 GM POWD.PACK GT SCH (09:20)
[2020-03-13] MEDS: DOCUSATE SODIUM 100 MG/10 ML LIQUID UDC GT SCH (09:20)
[2020-03-13] MEDS: ACIDOPHILUS/BULGARICUS CHEW TAB GT SCH ×2 (09:20→20:58)
[2020-03-13] MEDS: POTASSIUM CHLORIDE 40 MEQ/30 ML LIQUID UDC GT SCH (09:21)
[2020-03-13] MEDS: COD LIVER OIL/ZINC OXIDE OINT 113 GM TUBE TP SCH ×2 (09:22→20:58)
--- NOTE | 2020-03-13 14:30 | NUR ---
ISAÍAS sent patient's sister Jeanne an email, notifying her that the next IDT meeting for the patient is scheduled for 03/19/2020. In this email, ISAÍAS asked Jeanne to let this SW know if she (or patient's parents) wanted to participate in the meeting through speaker phone.
--- NOTE | 2020-03-13 16:07 | NUR ---
ISAÍAS received an email back from patients' sister Jeanne, in response to the email ISAÍAS sent Jeanne earlier today. Jeanne stated that she would like to participate in IDT meeting on 03/19 via speaker phone. ISAÍAS instructed Jeanne to be available between the hours of 11am-12pm on 03/19 in order to receive ISAÍAS's call during the meeting.
[2020-03-13 20:00] VITALS: BP 111/70
[2020-03-13] MEDS: PROTEIN SUPPLEMENT (PROSTAT) 30 ML LIQUID GT SCH (20:58)
[2020-03-13] MEDS: RIVAROXABAN 15 MG TABLET GT SCH (20:58)
[2020-03-13] MEDS: MELATONIN 3 MG TABLET GT SCH (20:58)
[2020-03-13] MEDS: CRANBERRY 500 MG GT SCH (20:58)
[2020-03-13] MEDS: MAGNESIUM COMPLEX GT SCH (20:58)
[2020-03-13] MEDS: ASCORBIC ACID 500 MG TABLET GT SCH (20:58)
[2020-03-13] MEDS: NUTRISOURCE FIBER 4 GM PACKET GT SCH (20:58)
[2020-03-14] MEDS: METOCLOPRAMIDE HCL 10 MG/10 ML UDC GT SCH ×4 (00:33→17:01)
[2020-03-14] MEDS: MULTIVIT, IRON, MIN NO. 8, FA TABLET GT SCH (05:48)
[2020-03-14] MEDS: OMEPRAZOLE 20 MG CAPSULE.DR GT SCH (05:48)
[2020-03-14] MEDS: BACLOFEN 20 MG TABLET GT SCH ×3 (05:48→22:33)
[2020-03-14 07:36] VITALS: BP 110/60
[2020-03-14] MEDS: levETIRAcetam 500 MG/5 ML LIQUID UDC GT SCH ×2 (09:06→20:41)
[2020-03-14] MEDS: ACIDOPHILUS/BULGARICUS CHEW TAB GT SCH ×2 (09:06→20:41)
[2020-03-14] MEDS: MIRALAX 17 GM POWD.PACK GT SCH (09:06)
[2020-03-14] MEDS: POTASSIUM CHLORIDE 40 MEQ/30 ML LIQUID UDC GT SCH (09:06)
[2020-03-14] MEDS: COD LIVER OIL/ZINC OXIDE OINT 113 GM TUBE TP SCH ×2 (09:06→20:44)
[2020-03-14] MEDS: DOCUSATE SODIUM 100 MG/10 ML LIQUID UDC GT SCH (09:06)
[2020-03-14] MEDS: HYDROGEN PEROXIDE 3% 118 ML BOTTLE TP SCH ×2 (09:39→21:42)
--- NOTE | 2020-03-14 14:45 | NUR ---
provided zoom for patient with mother, patient stable, no signs of pain or discomfort noted, will continue to monitor.
[2020-03-14 20:00] VITALS: BP 99/58
[2020-03-14] MEDS: MELATONIN 3 MG TABLET GT SCH (20:42)
[2020-03-14] MEDS: CRANBERRY 500 MG GT SCH (20:42)
[2020-03-14] MEDS: PROTEIN SUPPLEMENT (PROSTAT) 30 ML LIQUID GT SCH (20:43)
[2020-03-14] MEDS: MAGNESIUM COMPLEX GT SCH (20:43)
[2020-03-14] MEDS: NUTRISOURCE FIBER 4 GM PACKET GT SCH (20:43)
[2020-03-14] MEDS: ASCORBIC ACID 500 MG TABLET GT SCH (20:43)
[2020-03-14] MEDS: RIVAROXABAN 15 MG TABLET GT SCH (21:00)
[2020-03-15] MEDS: OMEPRAZOLE 20 MG CAPSULE.DR GT SCH (06:21)
[2020-03-15] MEDS: MULTIVIT, IRON, MIN NO. 8, FA TABLET GT SCH (06:21)
[2020-03-15] MEDS: METOCLOPRAMIDE HCL 10 MG/10 ML UDC GT SCH ×5 (06:21→23:21)
[2020-03-15] MEDS: BACLOFEN 20 MG TABLET GT SCH ×3 (06:21→21:20)
[2020-03-15 08:34] VITALS: BP 99/66
[2020-03-15] MEDS: DOCUSATE SODIUM 100 MG/10 ML LIQUID UDC GT SCH (08:38)
[2020-03-15] MEDS: levETIRAcetam 500 MG/5 ML LIQUID UDC GT SCH ×2 (08:39→20:43)
[2020-03-15] MEDS: MIRALAX 17 GM POWD.PACK GT SCH (08:39)
[2020-03-15] MEDS: ACIDOPHILUS/BULGARICUS CHEW TAB GT SCH ×2 (08:39→20:43)
[2020-03-15] MEDS: POTASSIUM CHLORIDE 40 MEQ/30 ML LIQUID UDC GT SCH (08:40)
[2020-03-15] MEDS: COAL TAR TOP SCH (08:40)
[2020-03-15] MEDS: COD LIVER OIL/ZINC OXIDE OINT 113 GM TUBE TP SCH ×2 (08:40→20:43)
[2020-03-15] MEDS: HYDROGEN PEROXIDE 3% 118 ML BOTTLE TP SCH ×2 (09:06→21:17)
[2020-03-15 20:00] VITALS: BP 107/54
[2020-03-15] MEDS: RIVAROXABAN 15 MG TABLET GT SCH (20:35)
[2020-03-15] MEDS: ASCORBIC ACID 500 MG TABLET GT SCH (20:43)
[2020-03-15] MEDS: NUTRISOURCE FIBER 4 GM PACKET GT SCH (20:43)
[2020-03-15] MEDS: MELATONIN 3 MG TABLET GT SCH (20:43)
[2020-03-15] MEDS: PROTEIN SUPPLEMENT (PROSTAT) 30 ML LIQUID GT SCH (20:43)
[2020-03-15] MEDS: MAGNESIUM COMPLEX GT SCH (20:43)
[2020-03-15] MEDS: CRANBERRY 500 MG GT SCH (20:43)
--- NOTE | 2020-03-16 01:30 | NUR ---
GT site care change to wash with soap and water, pat dry and apply dry dressing daily.
[2020-03-16] MEDS: MULTIVIT, IRON, MIN NO. 8, FA TABLET GT SCH (05:31)
[2020-03-16] MEDS: METOCLOPRAMIDE HCL 10 MG/10 ML UDC GT SCH ×3 (05:31→19:00)
[2020-03-16] MEDS: OMEPRAZOLE 20 MG CAPSULE.DR GT SCH (05:31)
[2020-03-16] MEDS: BACLOFEN 20 MG TABLET GT SCH ×3 (05:31→22:32)
[2020-03-16 07:44] VITALS: BP 120/64
[2020-03-16] MEDS: DOCUSATE SODIUM 100 MG/10 ML LIQUID UDC GT SCH (08:27)
[2020-03-16] MEDS: ACIDOPHILUS/BULGARICUS CHEW TAB GT SCH ×2 (08:28→20:31)
[2020-03-16] MEDS: POTASSIUM CHLORIDE 40 MEQ/30 ML LIQUID UDC GT SCH (08:28)
[2020-03-16] MEDS: COD LIVER OIL/ZINC OXIDE OINT 113 GM TUBE TP SCH ×2 (08:28→20:32)
[2020-03-16] MEDS: MIRALAX 17 GM POWD.PACK GT SCH (08:28)
[2020-03-16] MEDS: levETIRAcetam 500 MG/5 ML LIQUID UDC GT SCH ×2 (08:28→20:31)
[2020-03-16] MEDS: HYDROGEN PEROXIDE 3% 118 ML BOTTLE TP SCH ×2 (09:45→20:32)
--- NOTE | 2020-03-16 15:30 | NUR ---
PT. RECEIVED A PHONE CALL FROM HER FATHER,THEN A VIDEOCHAT WITH PT'S MOTHER FRENCH.
[2020-03-16 20:27] VITALS: BP 102/55
[2020-03-16] MEDS: MELATONIN 3 MG TABLET GT SCH (20:31)
[2020-03-16] MEDS: CRANBERRY 500 MG GT SCH (20:31)
[2020-03-16] MEDS: NUTRISOURCE FIBER 4 GM PACKET GT SCH (20:32)
[2020-03-16] MEDS: MAGNESIUM COMPLEX GT SCH (20:32)
[2020-03-16] MEDS: PROTEIN SUPPLEMENT (PROSTAT) 30 ML LIQUID GT SCH (20:32)
[2020-03-16] MEDS: ASCORBIC ACID 500 MG TABLET GT SCH (20:32)
[2020-03-16] MEDS: RIVAROXABAN 15 MG TABLET GT SCH (20:33)
[2020-03-17] MEDS: OMEPRAZOLE 20 MG CAPSULE.DR GT SCH (05:14)
[2020-03-17] MEDS: MULTIVIT, IRON, MIN NO. 8, FA TABLET GT SCH (05:14)
[2020-03-17] MEDS: BACLOFEN 20 MG TABLET GT SCH ×3 (05:14→22:19)
[2020-03-17] MEDS: METOCLOPRAMIDE HCL 10 MG/10 ML UDC GT SCH ×4 (05:14→18:20)
[2020-03-17 07:56] VITALS: BP 99/55
[2020-03-17] MEDS: DOCUSATE SODIUM 100 MG/10 ML LIQUID UDC GT SCH (08:24)
[2020-03-17] MEDS: MIRALAX 17 GM POWD.PACK GT SCH (08:25)
[2020-03-17] MEDS: ACIDOPHILUS/BULGARICUS CHEW TAB GT SCH ×2 (08:25→20:38)
[2020-03-17] MEDS: POTASSIUM CHLORIDE 40 MEQ/30 ML LIQUID UDC GT SCH (08:25)
[2020-03-17] MEDS: levETIRAcetam 500 MG/5 ML LIQUID UDC GT SCH ×2 (08:25→21:00)
[2020-03-17] MEDS: COD LIVER OIL/ZINC OXIDE OINT 113 GM TUBE TP SCH ×2 (08:26→21:00)
[2020-03-17] MEDS: HYDROGEN PEROXIDE 3% 118 ML BOTTLE TP SCH ×2 (09:00→19:27)
--- NOTE | 2020-03-17 09:43 | NUR ---
ZOOM PROVIDED TO FATHER.
--- NOTE | 2020-03-17 18:00 | NUR ---
PT'S FATHER WAS INFORMED RE: COVID 19 TESTING AND IN AGREEMENT .
[2020-03-17 20:21] VITALS: BP 90/55
[2020-03-17] MEDS: RIVAROXABAN 15 MG TABLET GT SCH (20:39)
[2020-03-17] MEDS: MAGNESIUM COMPLEX GT SCH (21:00)
[2020-03-17] MEDS: NUTRISOURCE FIBER 4 GM PACKET GT SCH (21:00)
[2020-03-17] MEDS: PROTEIN SUPPLEMENT (PROSTAT) 30 ML LIQUID GT SCH (21:00)
[2020-03-17] MEDS: CRANBERRY 500 MG GT SCH (21:00)
[2020-03-17] MEDS: ASCORBIC ACID 500 MG TABLET GT SCH (21:00)
[2020-03-17] MEDS: MELATONIN 3 MG TABLET GT SCH (21:00)
[2020-03-18] MEDS: MULTIVIT, IRON, MIN NO. 8, FA TABLET GT SCH (05:57)
[2020-03-18] MEDS: METOCLOPRAMIDE HCL 10 MG/10 ML UDC GT SCH ×4 (05:57→17:26)
[2020-03-18] MEDS: BACLOFEN 20 MG TABLET GT SCH ×3 (05:57→22:13)
[2020-03-18] MEDS: OMEPRAZOLE 20 MG CAPSULE.DR GT SCH (05:57)
[2020-03-18 07:39] VITALS: BP 99/59
[2020-03-18] MEDS: DOCUSATE SODIUM 100 MG/10 ML LIQUID UDC GT SCH (08:07)
[2020-03-18] MEDS: levETIRAcetam 500 MG/5 ML LIQUID UDC GT SCH ×2 (08:08→21:00)
[2020-03-18] MEDS: ACIDOPHILUS/BULGARICUS CHEW TAB GT SCH ×2 (08:08→21:00)
[2020-03-18] MEDS: MIRALAX 17 GM POWD.PACK GT SCH (08:08)
[2020-03-18] MEDS: POTASSIUM CHLORIDE 40 MEQ/30 ML LIQUID UDC GT SCH (08:08)
[2020-03-18] MEDS: COD LIVER OIL/ZINC OXIDE OINT 113 GM TUBE TP SCH ×2 (08:09→21:00)
[2020-03-18] MEDS: HYDROGEN PEROXIDE 3% 118 ML BOTTLE TP SCH ×2 (09:20→21:50)
--- NOTE | 2020-03-18 16:24 | NUR ---
ZOOM PROVIDED TO MOTHER.
[2020-03-18 20:38] VITALS: BP 106/61
[2020-03-18] MEDS: MAGNESIUM COMPLEX GT SCH (21:00)
[2020-03-18] MEDS: ASCORBIC ACID 500 MG TABLET GT SCH (21:00)
[2020-03-18] MEDS: PROTEIN SUPPLEMENT (PROSTAT) 30 ML LIQUID GT SCH (21:00)
[2020-03-18] MEDS: RIVAROXABAN 15 MG TABLET GT SCH (21:00)
[2020-03-18] MEDS: CRANBERRY 500 MG GT SCH (21:00)
[2020-03-18] MEDS: MELATONIN 3 MG TABLET GT SCH (21:00)
[2020-03-18] MEDS: NUTRISOURCE FIBER 4 GM PACKET GT SCH (21:00)
[2020-03-19] MEDS: METOCLOPRAMIDE HCL 10 MG/10 ML UDC GT SCH ×4 (00:28→17:02)
[2020-03-19] MEDS: BACLOFEN 20 MG TABLET GT SCH ×3 (06:17→21:33)
[2020-03-19] MEDS: OMEPRAZOLE 20 MG CAPSULE.DR GT SCH (06:17)
[2020-03-19] MEDS: MULTIVIT, IRON, MIN NO. 8, FA TABLET GT SCH (06:17)
[2020-03-19 07:26] VITALS: BP 102/60
[2020-03-19] MEDS: HYDROGEN PEROXIDE 3% 118 ML BOTTLE TP SCH ×2 (08:06→21:45)
[2020-03-19] MEDS: DOCUSATE SODIUM 100 MG/10 ML LIQUID UDC GT SCH (08:09)
[2020-03-19] MEDS: ACIDOPHILUS/BULGARICUS CHEW TAB GT SCH ×2 (08:09→21:27)
[2020-03-19] MEDS: MIRALAX 17 GM POWD.PACK GT SCH (08:11)
[2020-03-19] MEDS: levETIRAcetam 500 MG/5 ML LIQUID UDC GT SCH ×2 (08:11→21:27)
[2020-03-19] MEDS: COAL TAR TOP SCH (08:15)
[2020-03-19] MEDS: POTASSIUM CHLORIDE 40 MEQ/30 ML LIQUID UDC GT SCH (08:15)
[2020-03-19] MEDS: COD LIVER OIL/ZINC OXIDE OINT 113 GM TUBE TP SCH ×2 (08:15→21:32)
[2020-03-19] MEDS: TWOCAL HN 1,000 ML LIQUID GT PRN (11:00)
--- NOTE | 2020-03-19 16:28 | NUR ---
INTERDISCIPLINARY PLAN OF CARE CONFERENCE was held today. Patient's sister Jeanne participated in the meeting through speaker phone. Dr. Cartagena and the Interdisciplinary Team reviewed the current plan of care in detail. RN reported on patient's medical condition. See RN IDT conference notes. PT reported on the current treatment plan and patient's progress. No major changes in medical condition were reported by nursing or by the other disciplines. See all disciplines IDT notes and physician's progress notes for additional details. Jeanne's questions were addressed by the IDT team, and Jeanne expressed being content with the current plan of care.
--- NOTE | 2020-03-19 18:10 | NUR ---
Abdi Garnica's Father notified regarding Covid 19 test results,negative.
[2020-03-19 20:00] VITALS: BP 111/66
[2020-03-19] MEDS: MELATONIN 3 MG TABLET GT SCH (21:28)
[2020-03-19] MEDS: CRANBERRY 500 MG GT SCH (21:29)
[2020-03-19] MEDS: MAGNESIUM COMPLEX GT SCH (21:30)
[2020-03-19] MEDS: NUTRISOURCE FIBER 4 GM PACKET GT SCH (21:30)
[2020-03-19] MEDS: ASCORBIC ACID 500 MG TABLET GT SCH (21:32)
[2020-03-19] MEDS: PROTEIN SUPPLEMENT (PROSTAT) 30 ML LIQUID GT SCH (21:32)
[2020-03-19] MEDS: RIVAROXABAN 15 MG TABLET GT SCH (21:32)
[2020-03-20] MEDS: BACLOFEN 20 MG TABLET GT SCH ×3 (05:29→21:14)
[2020-03-20] MEDS: OMEPRAZOLE 20 MG CAPSULE.DR GT SCH (05:29)
[2020-03-20] MEDS: MULTIVIT, IRON, MIN NO. 8, FA TABLET GT SCH (05:29)
[2020-03-20] MEDS: METOCLOPRAMIDE HCL 10 MG/10 ML UDC GT SCH ×4 (05:29→18:25)
[2020-03-20 07:15] VITALS: BP 117/61
[2020-03-20 07:40] VITALS: BP 106/63
[2020-03-20] MEDS: HYDROGEN PEROXIDE 3% 118 ML BOTTLE TP SCH ×2 (08:08→21:45)
[2020-03-20] MEDS: DOCUSATE SODIUM 100 MG/10 ML LIQUID UDC GT SCH (08:29)
[2020-03-20] MEDS: ACIDOPHILUS/BULGARICUS CHEW TAB GT SCH ×2 (08:30→21:09)
[2020-03-20] MEDS: MIRALAX 17 GM POWD.PACK GT SCH (08:31)
[2020-03-20] MEDS: levETIRAcetam 500 MG/5 ML LIQUID UDC GT SCH ×2 (08:31→21:09)
[2020-03-20] MEDS: POTASSIUM CHLORIDE 40 MEQ/30 ML LIQUID UDC GT SCH (08:31)
[2020-03-20] MEDS: COD LIVER OIL/ZINC OXIDE OINT 113 GM TUBE TP SCH ×2 (08:32→21:14)
[2020-03-20 20:00] VITALS: BP 102/62
[2020-03-20] MEDS: NUTRISOURCE FIBER 4 GM PACKET GT SCH (21:10)
[2020-03-20] MEDS: MELATONIN 3 MG TABLET GT SCH (21:10)
[2020-03-20] MEDS: MAGNESIUM COMPLEX GT SCH (21:10)
[2020-03-20] MEDS: CRANBERRY 500 MG GT SCH (21:10)
[2020-03-20] MEDS: ASCORBIC ACID 500 MG TABLET GT SCH (21:12)
[2020-03-20] MEDS: PROTEIN SUPPLEMENT (PROSTAT) 30 ML LIQUID GT SCH (21:12)
[2020-03-20] MEDS: RIVAROXABAN 15 MG TABLET GT SCH (21:13)
[2020-03-21] MEDS: OMEPRAZOLE 20 MG CAPSULE.DR GT SCH (05:41)
[2020-03-21] MEDS: MULTIVIT, IRON, MIN NO. 8, FA TABLET GT SCH (05:41)
[2020-03-21] MEDS: METOCLOPRAMIDE HCL 10 MG/10 ML UDC GT SCH ×4 (05:41→17:05)
[2020-03-21] MEDS: BACLOFEN 20 MG TABLET GT SCH ×3 (05:41→21:55)
[2020-03-21] MEDS: HYDROGEN PEROXIDE 3% 118 ML BOTTLE TP SCH ×2 (07:22→21:37)
[2020-03-21 07:59] VITALS: BP 95/62
[2020-03-21] MEDS: DOCUSATE SODIUM 100 MG/10 ML LIQUID UDC GT SCH (08:26)
[2020-03-21] MEDS: MIRALAX 17 GM POWD.PACK GT SCH (08:26)
[2020-03-21] MEDS: POTASSIUM CHLORIDE 40 MEQ/30 ML LIQUID UDC GT SCH (08:26)
[2020-03-21] MEDS: levETIRAcetam 500 MG/5 ML LIQUID UDC GT SCH ×2 (08:26→21:47)
[2020-03-21] MEDS: ACIDOPHILUS/BULGARICUS CHEW TAB GT SCH ×2 (08:26→21:47)
[2020-03-21] MEDS: COD LIVER OIL/ZINC OXIDE OINT 113 GM TUBE TP SCH ×2 (08:27→21:55)
--- NOTE | 2020-03-21 14:00 | NUR ---
zoom meeting provided to patient's mother. patient is calm, comfortable, and no signs of distress.
[2020-03-21] MEDS: TWOCAL HN 1,000 ML LIQUID GT PRN (19:06)
[2020-03-21 20:00] VITALS: BP 99/61
[2020-03-21] MEDS: ASCORBIC ACID 500 MG TABLET GT SCH (21:47)
[2020-03-21] MEDS: NUTRISOURCE FIBER 4 GM PACKET GT SCH (21:47)
[2020-03-21] MEDS: MELATONIN 3 MG TABLET GT SCH (21:47)
[2020-03-21] MEDS: PROTEIN SUPPLEMENT (PROSTAT) 30 ML LIQUID GT SCH (21:47)
[2020-03-21] MEDS: MAGNESIUM COMPLEX GT SCH (21:47)
[2020-03-21] MEDS: CRANBERRY 500 MG GT SCH (21:47)
[2020-03-21] MEDS: RIVAROXABAN 15 MG TABLET GT SCH (21:48)
[2020-03-22] MEDS: BACLOFEN 20 MG TABLET GT SCH ×3 (05:44→21:06)
[2020-03-22] MEDS: MULTIVIT, IRON, MIN NO. 8, FA TABLET GT SCH (05:44)
[2020-03-22] MEDS: OMEPRAZOLE 20 MG CAPSULE.DR GT SCH (05:44)
[2020-03-22] MEDS: METOCLOPRAMIDE HCL 10 MG/10 ML UDC GT SCH ×4 (05:44→17:18)
[2020-03-22] MEDS: ACETAMINOPHEN 650 MG/20 ML UDC- SA PATIENTS-PAIN ONLY GT PRN (07:47)
[2020-03-22 07:48] VITALS: BP 133/81
[2020-03-22] MEDS: COD LIVER OIL/ZINC OXIDE OINT 113 GM TUBE TP SCH ×2 (08:22→20:37)
[2020-03-22] MEDS: levETIRAcetam 500 MG/5 ML LIQUID UDC GT SCH ×2 (08:22→20:37)
[2020-03-22] MEDS: MIRALAX 17 GM POWD.PACK GT SCH (08:22)
[2020-03-22] MEDS: DOCUSATE SODIUM 100 MG/10 ML LIQUID UDC GT SCH (08:22)
[2020-03-22] MEDS: POTASSIUM CHLORIDE 40 MEQ/30 ML LIQUID UDC GT SCH (08:22)
[2020-03-22] MEDS: ACIDOPHILUS/BULGARICUS CHEW TAB GT SCH ×2 (08:22→20:37)
[2020-03-22] MEDS: COAL TAR TOP SCH (09:00)
[2020-03-22] MEDS: HYDROGEN PEROXIDE 3% 118 ML BOTTLE TP SCH ×2 (09:00→21:03)
--- NOTE | 2020-03-22 14:33 | NUR ---
Provided zoom meeting with pts sister at this time.
[2020-03-22 20:00] VITALS: BP 103/61
[2020-03-22] MEDS: RIVAROXABAN 15 MG TABLET GT SCH (20:33)
[2020-03-22] MEDS: CRANBERRY 500 MG GT SCH (20:37)
[2020-03-22] MEDS: PROTEIN SUPPLEMENT (PROSTAT) 30 ML LIQUID GT SCH (20:37)
[2020-03-22] MEDS: NUTRISOURCE FIBER 4 GM PACKET GT SCH (20:37)
[2020-03-22] MEDS: ASCORBIC ACID 500 MG TABLET GT SCH (20:37)
[2020-03-22] MEDS: MELATONIN 3 MG TABLET GT SCH (20:37)
[2020-03-22] MEDS: MAGNESIUM COMPLEX GT SCH (20:37)
[2020-03-23] MEDS: METOCLOPRAMIDE HCL 10 MG/10 ML UDC GT SCH ×4 (00:02→17:26)
[2020-03-23] MEDS: MULTIVIT, IRON, MIN NO. 8, FA TABLET GT SCH (05:11)
[2020-03-23] MEDS: OMEPRAZOLE 20 MG CAPSULE.DR GT SCH (05:11)
[2020-03-23] MEDS: BACLOFEN 20 MG TABLET GT SCH ×3 (05:11→21:59)
[2020-03-23 07:48] VITALS: BP 99/62
[2020-03-23] MEDS: DOCUSATE SODIUM 100 MG/10 ML LIQUID UDC GT SCH (08:10)
[2020-03-23] MEDS: ACIDOPHILUS/BULGARICUS CHEW TAB GT SCH ×2 (08:11→20:47)
[2020-03-23] MEDS: levETIRAcetam 500 MG/5 ML LIQUID UDC GT SCH ×2 (08:11→20:47)
[2020-03-23] MEDS: POTASSIUM CHLORIDE 40 MEQ/30 ML LIQUID UDC GT SCH (08:12)
[2020-03-23] MEDS: MIRALAX 17 GM POWD.PACK GT SCH (08:12)
[2020-03-23] MEDS: COD LIVER OIL/ZINC OXIDE OINT 113 GM TUBE TP SCH ×2 (08:12→20:48)
[2020-03-23] MEDS: HYDROGEN PEROXIDE 3% 118 ML BOTTLE TP SCH ×2 (09:00→21:00)
--- NOTE | 2020-03-23 15:42 | NUR ---
Video chat provided with pt' s, mother.
[2020-03-23] MEDS: TWOCAL HN 1,000 ML LIQUID GT PRN (17:27)
[2020-03-23] MEDS: NUTRISOURCE FIBER 4 GM PACKET GT SCH (20:47)
[2020-03-23] MEDS: PROTEIN SUPPLEMENT (PROSTAT) 30 ML LIQUID GT SCH (20:47)
[2020-03-23] MEDS: CRANBERRY 500 MG GT SCH (20:47)
[2020-03-23] MEDS: MELATONIN 3 MG TABLET GT SCH (20:47)
[2020-03-23] MEDS: ASCORBIC ACID 500 MG TABLET GT SCH (20:47)
[2020-03-23] MEDS: MAGNESIUM COMPLEX GT SCH (20:47)
[2020-03-23] MEDS: RIVAROXABAN 15 MG TABLET GT SCH (21:59)
[2020-03-23 22:04] VITALS: BP 98/63
[2020-03-24] MEDS: METOCLOPRAMIDE HCL 10 MG/10 ML UDC GT SCH ×5 (00:56→23:49)
[2020-03-24] MEDS: MULTIVIT, IRON, MIN NO. 8, FA TABLET GT SCH (06:17)
[2020-03-24] MEDS: OMEPRAZOLE 20 MG CAPSULE.DR GT SCH (06:17)
[2020-03-24] MEDS: BACLOFEN 20 MG TABLET GT SCH ×3 (06:17→21:01)
[2020-03-24 07:35] VITALS: BP 107/58
[2020-03-24] MEDS: HYDROGEN PEROXIDE 3% 118 ML BOTTLE TP SCH ×2 (09:00→21:00)
[2020-03-24] MEDS: COD LIVER OIL/ZINC OXIDE OINT 113 GM TUBE TP SCH ×2 (09:40→20:53)
[2020-03-24] MEDS: POTASSIUM CHLORIDE 40 MEQ/30 ML LIQUID UDC GT SCH (09:40)
[2020-03-24] MEDS: ACIDOPHILUS/BULGARICUS CHEW TAB GT SCH ×2 (09:40→20:56)
[2020-03-24] MEDS: levETIRAcetam 500 MG/5 ML LIQUID UDC GT SCH ×2 (09:40→20:56)
[2020-03-24] MEDS: MIRALAX 17 GM POWD.PACK GT SCH (09:40)
[2020-03-24] MEDS: DOCUSATE SODIUM 100 MG/10 ML LIQUID UDC GT SCH (09:40)
--- NOTE | 2020-03-24 11:58 | NUR ---
Pt's v/s wnl. No respiratory distress at this time. Provided video chat with the family (father). Informed the family about the covid testing to be done today. Family verbalized appreciation for taking care of her daughter. Will continue to monitor.
--- NOTE | 2020-03-24 16:27 | NUR ---
Covid19 test done, father notified.
[2020-03-24] MEDS: RIVAROXABAN 15 MG TABLET GT SCH (20:52)
[2020-03-24] MEDS: PROTEIN SUPPLEMENT (PROSTAT) 30 ML LIQUID GT SCH (20:53)
[2020-03-24] MEDS: ASCORBIC ACID 500 MG TABLET GT SCH (20:53)
[2020-03-24] MEDS: CRANBERRY 500 MG GT SCH (20:57)
[2020-03-24] MEDS: NUTRISOURCE FIBER 4 GM PACKET GT SCH (20:57)
[2020-03-24] MEDS: MAGNESIUM COMPLEX GT SCH (20:57)
[2020-03-24] MEDS: MELATONIN 3 MG TABLET GT SCH (20:57)
[2020-03-24 22:00] VITALS: BP 98/54
[2020-03-25] MEDS: BACLOFEN 20 MG TABLET GT SCH ×3 (05:45→22:31)
[2020-03-25] MEDS: MULTIVIT, IRON, MIN NO. 8, FA TABLET GT SCH (05:45)
[2020-03-25] MEDS: METOCLOPRAMIDE HCL 10 MG/10 ML UDC GT SCH ×3 (05:45→17:29)
[2020-03-25] MEDS: OMEPRAZOLE 20 MG CAPSULE.DR GT SCH (05:45)
[2020-03-25 07:43] VITALS: BP 104/61
[2020-03-25] MEDS: COD LIVER OIL/ZINC OXIDE OINT 113 GM TUBE TP SCH ×2 (08:38→20:39)
[2020-03-25] MEDS: POTASSIUM CHLORIDE 40 MEQ/30 ML LIQUID UDC GT SCH (08:38)
[2020-03-25] MEDS: MIRALAX 17 GM POWD.PACK GT SCH (08:38)
[2020-03-25] MEDS: DOCUSATE SODIUM 100 MG/10 ML LIQUID UDC GT SCH (08:38)
[2020-03-25] MEDS: levETIRAcetam 500 MG/5 ML LIQUID UDC GT SCH ×2 (08:38→20:39)
[2020-03-25] MEDS: ACIDOPHILUS/BULGARICUS CHEW TAB GT SCH ×2 (08:38→20:39)
[2020-03-25] MEDS: HYDROGEN PEROXIDE 3% 118 ML BOTTLE TP SCH ×2 (09:18→21:20)
--- NOTE | 2020-03-25 16:11 | NUR ---
NOTIFIED RESPONSIBLE GREEN PARTY, MILLI FRY OF POSSIBLE COVID 19 EXPOSURE AND TESTING PLAN FOR CURRENT AND NEXT WEEK MANDATED. RESPONSIBLE GREEN PART[employer] VERBALIZED GOOD UNDERSTANDING.
[2020-03-25] MEDS: TWOCAL HN 1,000 ML LIQUID GT PRN (17:29)
[2020-03-25] MEDS: CRANBERRY 500 MG GT SCH (20:39)
[2020-03-25] MEDS: ASCORBIC ACID 500 MG TABLET GT SCH (20:39)
[2020-03-25] MEDS: MELATONIN 3 MG TABLET GT SCH (20:39)
[2020-03-25] MEDS: MAGNESIUM COMPLEX GT SCH (20:39)
[2020-03-25] MEDS: NUTRISOURCE FIBER 4 GM PACKET GT SCH (20:39)
[2020-03-25] MEDS: PROTEIN SUPPLEMENT (PROSTAT) 30 ML LIQUID GT SCH (20:39)
[2020-03-25] MEDS: RIVAROXABAN 15 MG TABLET GT SCH (20:41)
[2020-03-25 20:46] VITALS: BP 110/63
[2020-03-26] MEDS: OMEPRAZOLE 20 MG CAPSULE.DR GT SCH (05:14)
[2020-03-26] MEDS: BACLOFEN 20 MG TABLET GT SCH ×3 (05:14→22:36)
[2020-03-26] MEDS: MULTIVIT, IRON, MIN NO. 8, FA TABLET GT SCH (05:15)
[2020-03-26] MEDS: METOCLOPRAMIDE HCL 10 MG/10 ML UDC GT SCH ×4 (05:15→17:50)
[2020-03-26] MEDS: levETIRAcetam 500 MG/5 ML LIQUID UDC GT SCH ×2 (08:47→20:18)
[2020-03-26] MEDS: MIRALAX 17 GM POWD.PACK GT SCH (08:47)
[2020-03-26] MEDS: DOCUSATE SODIUM 100 MG/10 ML LIQUID UDC GT SCH (08:47)
[2020-03-26] MEDS: ACIDOPHILUS/BULGARICUS CHEW TAB GT SCH ×2 (08:47→20:18)
[2020-03-26] MEDS: POTASSIUM CHLORIDE 40 MEQ/30 ML LIQUID UDC GT SCH (08:47)
[2020-03-26] MEDS: COAL TAR TOP SCH (08:48)
[2020-03-26] MEDS: COD LIVER OIL/ZINC OXIDE OINT 113 GM TUBE TP SCH ×2 (08:48→20:21)
[2020-03-26] MEDS: HYDROGEN PEROXIDE 3% 118 ML BOTTLE TP SCH ×2 (09:39→21:46)
--- NOTE | 2020-03-26 12:17 | NUR ---
video chat provided with the family (sister).
[2020-03-26 20:00] VITALS: BP 107/59
[2020-03-26] MEDS: ASCORBIC ACID 500 MG TABLET GT SCH (20:20)
[2020-03-26] MEDS: NUTRISOURCE FIBER 4 GM PACKET GT SCH (20:20)
[2020-03-26] MEDS: MAGNESIUM COMPLEX GT SCH (20:20)
[2020-03-26] MEDS: MELATONIN 3 MG TABLET GT SCH (20:20)
[2020-03-26] MEDS: PROTEIN SUPPLEMENT (PROSTAT) 30 ML LIQUID GT SCH (20:20)
[2020-03-26] MEDS: CRANBERRY 500 MG GT SCH (20:20)
[2020-03-26] MEDS: RIVAROXABAN 15 MG TABLET GT SCH (20:23)
[2020-03-27] MEDS: METOCLOPRAMIDE HCL 10 MG/10 ML UDC GT SCH ×5 (00:13→23:39)
[2020-03-27] MEDS: OMEPRAZOLE 20 MG CAPSULE.DR GT SCH (05:10)
[2020-03-27] MEDS: MULTIVIT, IRON, MIN NO. 8, FA TABLET GT SCH (05:10)
[2020-03-27] MEDS: BACLOFEN 20 MG TABLET GT SCH ×3 (05:10→21:48)
[2020-03-27 08:00] VITALS: BP 106/62
[2020-03-27] MEDS: DOCUSATE SODIUM 100 MG/10 ML LIQUID UDC GT SCH (09:07)
[2020-03-27] MEDS: POTASSIUM CHLORIDE 40 MEQ/30 ML LIQUID UDC GT SCH (09:07)
[2020-03-27] MEDS: MIRALAX 17 GM POWD.PACK GT SCH (09:07)
[2020-03-27] MEDS: levETIRAcetam 500 MG/5 ML LIQUID UDC GT SCH ×2 (09:07→21:43)
[2020-03-27] MEDS: COD LIVER OIL/ZINC OXIDE OINT 113 GM TUBE TP SCH ×2 (09:07→21:45)
[2020-03-27] MEDS: ACIDOPHILUS/BULGARICUS CHEW TAB GT SCH ×2 (09:07→21:42)
[2020-03-27] MEDS: HYDROGEN PEROXIDE 3% 118 ML BOTTLE TP SCH ×2 (09:23→21:14)
--- NOTE | 2020-03-27 10:00 | NUR ---
Notified Abdi mercedes's father regarding the Covid 19 is negative.
--- NOTE | 2020-03-27 10:45 | NUR ---
Provide video chat for pt. and her father with no problem noted, kept clean and comfortable, all needs attended and anticipated.
[2020-03-27 20:57] VITALS: BP 107/57
[2020-03-27] MEDS: CRANBERRY 500 MG GT SCH (21:43)
[2020-03-27] MEDS: MELATONIN 3 MG TABLET GT SCH (21:43)
[2020-03-27] MEDS: MAGNESIUM COMPLEX GT SCH (21:44)
[2020-03-27] MEDS: NUTRISOURCE FIBER 4 GM PACKET GT SCH (21:44)
[2020-03-27] MEDS: ASCORBIC ACID 500 MG TABLET GT SCH (21:45)
[2020-03-27] MEDS: RIVAROXABAN 15 MG TABLET GT SCH (21:47)
[2020-03-27] MEDS: PROTEIN SUPPLEMENT (PROSTAT) 30 ML LIQUID GT SCH (21:52)
[2020-03-28] MEDS: METOCLOPRAMIDE HCL 10 MG/10 ML UDC GT SCH ×3 (05:16→17:16)
[2020-03-28] MEDS: MULTIVIT, IRON, MIN NO. 8, FA TABLET GT SCH (05:16)
[2020-03-28] MEDS: OMEPRAZOLE 20 MG CAPSULE.DR GT SCH (05:16)
[2020-03-28] MEDS: BACLOFEN 20 MG TABLET GT SCH ×3 (05:16→21:38)
[2020-03-28 08:00] VITALS: BP 116/69
[2020-03-28] MEDS: POTASSIUM CHLORIDE 40 MEQ/30 ML LIQUID UDC GT SCH (08:38)
[2020-03-28] MEDS: MIRALAX 17 GM POWD.PACK GT SCH (08:38)
[2020-03-28] MEDS: levETIRAcetam 500 MG/5 ML LIQUID UDC GT SCH ×2 (08:38→20:30)
[2020-03-28] MEDS: ACIDOPHILUS/BULGARICUS CHEW TAB GT SCH ×2 (08:38→20:30)
[2020-03-28] MEDS: COD LIVER OIL/ZINC OXIDE OINT 113 GM TUBE TP SCH ×2 (08:38→20:34)
[2020-03-28] MEDS: DOCUSATE SODIUM 100 MG/10 ML LIQUID UDC GT SCH (08:38)
[2020-03-28] MEDS: HYDROGEN PEROXIDE 3% 118 ML BOTTLE TP SCH (10:20)
--- NOTE | 2020-03-28 15:00 | NUR ---
Provided video chat to pt. and her mother with no problem noted, kept pt clean and comfortable, all needs attended and anticipated.
[2020-03-28 20:00] VITALS: BP 103/55
[2020-03-28] MEDS: RIVAROXABAN 15 MG TABLET GT SCH (20:25)
[2020-03-28] MEDS: CRANBERRY 500 MG GT SCH (20:30)
[2020-03-28] MEDS: MAGNESIUM COMPLEX GT SCH (20:30)
[2020-03-28] MEDS: MELATONIN 3 MG TABLET GT SCH (20:30)
[2020-03-28] MEDS: NUTRISOURCE FIBER 4 GM PACKET GT SCH (20:31)
[2020-03-28] MEDS: ASCORBIC ACID 500 MG TABLET GT SCH (20:31)
[2020-03-28] MEDS: PROTEIN SUPPLEMENT (PROSTAT) 30 ML LIQUID GT SCH (20:31)
[2020-03-29] MEDS: METOCLOPRAMIDE HCL 10 MG/10 ML UDC GT SCH ×4 (00:18→17:54)
[2020-03-29] MEDS: TWOCAL HN 1,000 ML LIQUID GT PRN (03:01)
[2020-03-29] MEDS: MULTIVIT, IRON, MIN NO. 8, FA TABLET GT SCH (05:36)
[2020-03-29] MEDS: BACLOFEN 20 MG TABLET GT SCH ×3 (05:36→21:53)
[2020-03-29] MEDS: OMEPRAZOLE 20 MG CAPSULE.DR GT SCH (05:36)
[2020-03-29 07:25] VITALS: BP 102/58
[2020-03-29] MEDS: levETIRAcetam 500 MG/5 ML LIQUID UDC GT SCH ×2 (08:31→20:46)
[2020-03-29] MEDS: ACIDOPHILUS/BULGARICUS CHEW TAB GT SCH ×2 (08:31→20:46)
[2020-03-29] MEDS: DOCUSATE SODIUM 100 MG/10 ML LIQUID UDC GT SCH (08:31)
[2020-03-29] MEDS: MIRALAX 17 GM POWD.PACK GT SCH (08:31)
[2020-03-29] MEDS: COAL TAR TOP SCH (08:32)
[2020-03-29] MEDS: POTASSIUM CHLORIDE 40 MEQ/30 ML LIQUID UDC GT SCH (08:32)
[2020-03-29] MEDS: COD LIVER OIL/ZINC OXIDE OINT 113 GM TUBE TP SCH ×2 (08:32→20:47)
[2020-03-29] MEDS: HYDROGEN PEROXIDE 3% 118 ML BOTTLE TP SCH ×2 (10:20→21:33)
[2020-03-29] MEDS: MELATONIN 3 MG TABLET GT SCH (20:46)
[2020-03-29] MEDS: NUTRISOURCE FIBER 4 GM PACKET GT SCH (20:47)
[2020-03-29] MEDS: PROTEIN SUPPLEMENT (PROSTAT) 30 ML LIQUID GT SCH (20:47)
[2020-03-29] MEDS: CRANBERRY 500 MG GT SCH (20:47)
[2020-03-29] MEDS: ASCORBIC ACID 500 MG TABLET GT SCH (20:47)
[2020-03-29] MEDS: MAGNESIUM COMPLEX GT SCH (20:47)
[2020-03-29] MEDS: RIVAROXABAN 15 MG TABLET GT SCH (21:54)
[2020-03-29 22:00] VITALS: BP 111/55
[2020-03-30] MEDS: OMEPRAZOLE 20 MG CAPSULE.DR GT SCH (05:45)
[2020-03-30] MEDS: METOCLOPRAMIDE HCL 10 MG/10 ML UDC GT SCH ×5 (05:45→23:37)
[2020-03-30] MEDS: MULTIVIT, IRON, MIN NO. 8, FA TABLET GT SCH (05:45)
[2020-03-30] MEDS: BACLOFEN 20 MG TABLET GT SCH ×3 (05:45→21:10)
[2020-03-30 07:40] VITALS: BP 120/64
[2020-03-30] MEDS: HYDROGEN PEROXIDE 3% 118 ML BOTTLE TP SCH ×2 (08:41→21:42)
[2020-03-30] MEDS: DOCUSATE SODIUM 100 MG/10 ML LIQUID UDC GT SCH (09:19)
[2020-03-30] MEDS: ACIDOPHILUS/BULGARICUS CHEW TAB GT SCH ×2 (09:19→20:28)
[2020-03-30] MEDS: levETIRAcetam 500 MG/5 ML LIQUID UDC GT SCH ×2 (09:19→20:31)
[2020-03-30] MEDS: POTASSIUM CHLORIDE 40 MEQ/30 ML LIQUID UDC GT SCH (09:23)
[2020-03-30] MEDS: MIRALAX 17 GM POWD.PACK GT SCH (09:23)
[2020-03-30] MEDS: COD LIVER OIL/ZINC OXIDE OINT 113 GM TUBE TP SCH ×2 (09:24→20:31)
[2020-03-30] MEDS: ASCORBIC ACID 500 MG TABLET GT SCH (20:31)
[2020-03-30] MEDS: NUTRISOURCE FIBER 4 GM PACKET GT SCH (20:31)
[2020-03-30] MEDS: MELATONIN 3 MG TABLET GT SCH (20:31)
[2020-03-30] MEDS: PROTEIN SUPPLEMENT (PROSTAT) 30 ML LIQUID GT SCH (20:31)
[2020-03-30] MEDS: CRANBERRY 500 MG GT SCH (20:31)
[2020-03-30] MEDS: MAGNESIUM COMPLEX GT SCH (20:31)
[2020-03-30] MEDS: RIVAROXABAN 15 MG TABLET GT SCH (20:42)
[2020-03-30 22:13] VITALS: BP 113/50
[2020-03-31] MEDS: TWOCAL HN 1,000 ML LIQUID GT PRN (01:58)
[2020-03-31] MEDS: BACLOFEN 20 MG TABLET GT SCH ×3 (05:09→22:09)
[2020-03-31] MEDS: OMEPRAZOLE 20 MG CAPSULE.DR GT SCH (05:09)
[2020-03-31] MEDS: METOCLOPRAMIDE HCL 10 MG/10 ML UDC GT SCH ×3 (05:09→17:35)
[2020-03-31] MEDS: MULTIVIT, IRON, MIN NO. 8, FA TABLET GT SCH (05:09)
[2020-03-31 07:47] VITALS: BP 107/70
[2020-03-31] MEDS: ACIDOPHILUS/BULGARICUS CHEW TAB GT SCH ×2 (09:01→21:00)
[2020-03-31] MEDS: DOCUSATE SODIUM 100 MG/10 ML LIQUID UDC GT SCH (09:01)
[2020-03-31] MEDS: levETIRAcetam 500 MG/5 ML LIQUID UDC GT SCH ×2 (09:02→21:00)
[2020-03-31] MEDS: MIRALAX 17 GM POWD.PACK GT SCH (09:04)
[2020-03-31] MEDS: HYDROGEN PEROXIDE 3% 118 ML BOTTLE TP SCH ×2 (09:05→21:10)
[2020-03-31] MEDS: COD LIVER OIL/ZINC OXIDE OINT 113 GM TUBE TP SCH ×2 (09:05→21:00)
[2020-03-31] MEDS: POTASSIUM CHLORIDE 40 MEQ/30 ML LIQUID UDC GT SCH (09:05)
[2020-03-31] MEDS: MAGNESIUM COMPLEX GT SCH (21:00)
[2020-03-31] MEDS: PROTEIN SUPPLEMENT (PROSTAT) 30 ML LIQUID GT SCH (21:00)
[2020-03-31] MEDS: NUTRISOURCE FIBER 4 GM PACKET GT SCH (21:00)
[2020-03-31] MEDS: ASCORBIC ACID 500 MG TABLET GT SCH (21:00)
[2020-03-31] MEDS: RIVAROXABAN 15 MG TABLET GT SCH (21:00)
[2020-03-31] MEDS: MELATONIN 3 MG TABLET GT SCH (21:00)
[2020-03-31] MEDS: CRANBERRY 500 MG GT SCH (21:00)
[2020-03-31 22:30] VITALS: BP 114/73
[2020-04-01] MEDS: METOCLOPRAMIDE HCL 10 MG/10 ML UDC GT SCH ×4 (00:45→17:26)
[2020-04-01] MEDS: BACLOFEN 20 MG TABLET GT SCH ×3 (06:14→22:00)
[2020-04-01] MEDS: MULTIVIT, IRON, MIN NO. 8, FA TABLET GT SCH (06:14)
[2020-04-01] MEDS: OMEPRAZOLE 20 MG CAPSULE.DR GT SCH (06:14)
[2020-04-01 07:27] VITALS: BP 94/58
[2020-04-01] MEDS: levETIRAcetam 500 MG/5 ML LIQUID UDC GT SCH ×2 (08:21→21:59)
[2020-04-01] MEDS: COD LIVER OIL/ZINC OXIDE OINT 113 GM TUBE TP SCH ×2 (08:21→21:59)
[2020-04-01] MEDS: ACIDOPHILUS/BULGARICUS CHEW TAB GT SCH ×2 (08:21→21:59)
[2020-04-01] MEDS: DOCUSATE SODIUM 100 MG/10 ML LIQUID UDC GT SCH (08:21)
[2020-04-01] MEDS: MIRALAX 17 GM POWD.PACK GT SCH (08:21)
[2020-04-01] MEDS: POTASSIUM CHLORIDE 40 MEQ/30 ML LIQUID UDC GT SCH (08:21)
[2020-04-01] MEDS: HYDROGEN PEROXIDE 3% 118 ML BOTTLE TP SCH ×2 (09:28→19:22)
--- NOTE | 2020-04-01 15:00 | NUR ---
Provided video chat to pt and her mother with no problem,kept pt. clean and comfortable.
--- NOTE | 2020-04-01 15:30 | NUR ---
NEW ORDER CARRIED OUT FOR COVID 19 TEST.
--- NOTE | 2020-04-01 16:08 | NUR ---
Called Jeanne pt's mother made aware regarding Covid test to be performed to the pt.
[2020-04-01 20:00] VITALS: BP 119/85
[2020-04-01] MEDS: RIVAROXABAN 15 MG TABLET GT SCH (21:00)
[2020-04-01] MEDS: MAGNESIUM COMPLEX GT SCH (21:59)
[2020-04-01] MEDS: PROTEIN SUPPLEMENT (PROSTAT) 30 ML LIQUID GT SCH (21:59)
[2020-04-01] MEDS: MELATONIN 3 MG TABLET GT SCH (21:59)
[2020-04-01] MEDS: NUTRISOURCE FIBER 4 GM PACKET GT SCH (21:59)
[2020-04-01] MEDS: ASCORBIC ACID 500 MG TABLET GT SCH (21:59)
[2020-04-01] MEDS: CRANBERRY 500 MG GT SCH (21:59)
[2020-04-02] MEDS: METOCLOPRAMIDE HCL 10 MG/10 ML UDC GT SCH ×4 (00:47→17:04)
[2020-04-02] MEDS: OMEPRAZOLE 20 MG CAPSULE.DR GT SCH (06:27)
[2020-04-02] MEDS: MULTIVIT, IRON, MIN NO. 8, FA TABLET GT SCH (06:27)
[2020-04-02] MEDS: BACLOFEN 20 MG TABLET GT SCH ×3 (06:27→21:56)
[2020-04-02 07:30] VITALS: BP 99/64
[2020-04-02] MEDS: DOCUSATE SODIUM 100 MG/10 ML LIQUID UDC GT SCH (08:35)
[2020-04-02] MEDS: levETIRAcetam 500 MG/5 ML LIQUID UDC GT SCH ×2 (08:35→21:53)
[2020-04-02] MEDS: MIRALAX 17 GM POWD.PACK GT SCH (08:35)
[2020-04-02] MEDS: COD LIVER OIL/ZINC OXIDE OINT 113 GM TUBE TP SCH ×2 (08:35→21:55)
[2020-04-02] MEDS: POTASSIUM CHLORIDE 40 MEQ/30 ML LIQUID UDC GT SCH (08:35)
[2020-04-02] MEDS: COAL TAR TOP SCH (08:35)
[2020-04-02] MEDS: ACIDOPHILUS/BULGARICUS CHEW TAB GT SCH ×2 (08:35→21:53)
[2020-04-02] MEDS: HYDROGEN PEROXIDE 3% 118 ML BOTTLE TP SCH ×2 (09:38→21:45)
[2020-04-02 20:00] VITALS: BP 129/84
[2020-04-02] MEDS: MELATONIN 3 MG TABLET GT SCH (21:53)
[2020-04-02] MEDS: ASCORBIC ACID 500 MG TABLET GT SCH (21:54)
[2020-04-02] MEDS: PROTEIN SUPPLEMENT (PROSTAT) 30 ML LIQUID GT SCH (21:54)
[2020-04-02] MEDS: NUTRISOURCE FIBER 4 GM PACKET GT SCH (21:54)
[2020-04-02] MEDS: CRANBERRY 500 MG GT SCH (21:54)
[2020-04-02] MEDS: MAGNESIUM COMPLEX GT SCH (21:54)
[2020-04-02] MEDS: RIVAROXABAN 15 MG TABLET GT SCH (22:06)
[2020-04-03] MEDS: METOCLOPRAMIDE HCL 10 MG/10 ML UDC GT SCH ×5 (00:03→23:42)
[2020-04-03] MEDS: MULTIVIT, IRON, MIN NO. 8, FA TABLET GT SCH (05:11)
[2020-04-03] MEDS: OMEPRAZOLE 20 MG CAPSULE.DR GT SCH (05:11)
[2020-04-03] MEDS: BACLOFEN 20 MG TABLET GT SCH ×3 (05:11→21:08)
[2020-04-03 07:47] VITALS: BP 122/68
[2020-04-03] MEDS: DOCUSATE SODIUM 100 MG/10 ML LIQUID UDC GT SCH (09:06)
[2020-04-03] MEDS: levETIRAcetam 500 MG/5 ML LIQUID UDC GT SCH ×2 (09:07→21:06)
[2020-04-03] MEDS: ACIDOPHILUS/BULGARICUS CHEW TAB GT SCH ×2 (09:07→21:06)
[2020-04-03] MEDS: MIRALAX 17 GM POWD.PACK GT SCH (09:08)
[2020-04-03] MEDS: POTASSIUM CHLORIDE 40 MEQ/30 ML LIQUID UDC GT SCH (09:08)
[2020-04-03] MEDS: COD LIVER OIL/ZINC OXIDE OINT 113 GM TUBE TP SCH ×2 (09:08→21:07)
[2020-04-03] MEDS: HYDROGEN PEROXIDE 3% 118 ML BOTTLE TP SCH ×2 (09:46→21:25)
--- NOTE | 2020-04-03 11:00 | NUR ---
Provided video chat provided with father at this time.
--- NOTE | 2020-04-03 18:36 | NUR ---
Abdi Garnica's Father notified COVID 19 results is negative.
[2020-04-03 20:00] VITALS: BP 112/65
[2020-04-03] MEDS: RIVAROXABAN 15 MG TABLET GT SCH (21:00)
[2020-04-03] MEDS: MELATONIN 3 MG TABLET GT SCH (21:07)
[2020-04-03] MEDS: CRANBERRY 500 MG GT SCH (21:07)
[2020-04-03] MEDS: NUTRISOURCE FIBER 4 GM PACKET GT SCH (21:07)
[2020-04-03] MEDS: ASCORBIC ACID 500 MG TABLET GT SCH (21:07)
[2020-04-03] MEDS: PROTEIN SUPPLEMENT (PROSTAT) 30 ML LIQUID GT SCH (21:07)
[2020-04-03] MEDS: MAGNESIUM COMPLEX GT SCH (21:07)
[2020-04-04] MEDS: BACLOFEN 20 MG TABLET GT SCH ×3 (05:33→22:00)
[2020-04-04] MEDS: OMEPRAZOLE 20 MG CAPSULE.DR GT SCH (05:33)
[2020-04-04] MEDS: METOCLOPRAMIDE HCL 10 MG/10 ML UDC GT SCH ×4 (05:33→23:00)
[2020-04-04] MEDS: MULTIVIT, IRON, MIN NO. 8, FA TABLET GT SCH (05:33)
[2020-04-04] MEDS: TWOCAL HN 1,000 ML LIQUID GT PRN (06:00)
[2020-04-04 07:29] VITALS: BP 120/63
[2020-04-04] MEDS: DOCUSATE SODIUM 100 MG/10 ML LIQUID UDC GT SCH (08:37)
[2020-04-04] MEDS: ACIDOPHILUS/BULGARICUS CHEW TAB GT SCH ×2 (08:38→20:05)
[2020-04-04] MEDS: MIRALAX 17 GM POWD.PACK GT SCH (08:39)
[2020-04-04] MEDS: levETIRAcetam 500 MG/5 ML LIQUID UDC GT SCH ×2 (08:39→20:05)
[2020-04-04] MEDS: POTASSIUM CHLORIDE 40 MEQ/30 ML LIQUID UDC GT SCH (08:41)
[2020-04-04] MEDS: COD LIVER OIL/ZINC OXIDE OINT 113 GM TUBE TP SCH ×2 (08:41→20:06)
[2020-04-04] MEDS: HYDROGEN PEROXIDE 3% 118 ML BOTTLE TP SCH ×2 (09:00→20:13)
--- NOTE | 2020-04-04 12:16 | NUR ---
11:45am: ISAÍAS called patient's father Abdi [phone] in response to a voicemail message Abdi has left this SW. Abdi wanted to schedule a family meeting to discuss discharge planning for the patient. Abdi stated that he and patient's mother wish to take the patient home by the end of the calendar year. ISAÍAS expressed understanding and stated that ISAÍAS will speak with nurse wholesale account manager Harmeet Sampson and Subacute Director Raghavendra Alexander regarding their wishes and the request for a meeting, and that ISAÍAS will call Abdi back to schedule the meeting. Abdi expressed understanding and agreement.
--- NOTE | 2020-04-04 13:00 | NUR ---
Video chat provided with pts mother.
[2020-04-04] MEDS: CRANBERRY 500 MG GT SCH (20:05)
[2020-04-04] MEDS: NUTRISOURCE FIBER 4 GM PACKET GT SCH (20:05)
[2020-04-04] MEDS: MAGNESIUM COMPLEX GT SCH (20:05)
[2020-04-04] MEDS: PROTEIN SUPPLEMENT (PROSTAT) 30 ML LIQUID GT SCH (20:05)
[2020-04-04] MEDS: ASCORBIC ACID 500 MG TABLET GT SCH (20:06)
[2020-04-04] MEDS: RIVAROXABAN 15 MG TABLET GT SCH (20:09)
[2020-04-04] MEDS: MELATONIN 3 MG TABLET GT SCH (20:13)
[2020-04-04 20:34] VITALS: BP 104/57
[2020-04-05] MEDS: MULTIVIT, IRON, MIN NO. 8, FA TABLET GT SCH (05:42)
[2020-04-05] MEDS: METOCLOPRAMIDE HCL 10 MG/10 ML UDC GT SCH ×4 (05:42→23:12)
[2020-04-05] MEDS: BACLOFEN 20 MG TABLET GT SCH ×3 (05:42→21:10)
[2020-04-05] MEDS: OMEPRAZOLE 20 MG CAPSULE.DR GT SCH (05:42)
[2020-04-05 07:56] VITALS: BP 99/62
[2020-04-05] MEDS: levETIRAcetam 500 MG/5 ML LIQUID UDC GT SCH ×2 (08:49→21:10)
[2020-04-05] MEDS: ACIDOPHILUS/BULGARICUS CHEW TAB GT SCH ×2 (08:49→21:10)
[2020-04-05] MEDS: DOCUSATE SODIUM 100 MG/10 ML LIQUID UDC GT SCH (08:49)
[2020-04-05] MEDS: MIRALAX 17 GM POWD.PACK GT SCH (08:50)
[2020-04-05] MEDS: COAL TAR TOP SCH (08:51)
[2020-04-05] MEDS: COD LIVER OIL/ZINC OXIDE OINT 113 GM TUBE TP SCH ×2 (08:51→21:10)
[2020-04-05] MEDS: POTASSIUM CHLORIDE 40 MEQ/30 ML LIQUID UDC GT SCH (08:51)
[2020-04-05] MEDS: HYDROGEN PEROXIDE 3% 118 ML BOTTLE TP SCH ×2 (09:00→21:47)
--- NOTE | 2020-04-05 15:42 | NUR ---
ISAÍAS spoke with patient's father Abdi [phone] and schedule a family meeting for 04/09/2020 at 2pm. ISAÍAS stated that due to visitation restrictions, the meeting would be by speakerphone. Abdi expressed understanding.
[2020-04-05] MEDS: RIVAROXABAN 15 MG TABLET GT SCH (20:39)
[2020-04-05] MEDS: MELATONIN 3 MG TABLET GT SCH (21:10)
[2020-04-05] MEDS: CRANBERRY 500 MG GT SCH (21:10)
[2020-04-05] MEDS: PROTEIN SUPPLEMENT (PROSTAT) 30 ML LIQUID GT SCH (21:10)
[2020-04-05] MEDS: NUTRISOURCE FIBER 4 GM PACKET GT SCH (21:10)
[2020-04-05] MEDS: ASCORBIC ACID 500 MG TABLET GT SCH (21:10)
[2020-04-05] MEDS: MAGNESIUM COMPLEX GT SCH (21:10)
[2020-04-05] MEDS: TWOCAL HN 1,000 ML LIQUID GT PRN (22:11)
[2020-04-05 22:28] VITALS: BP 100/60
[2020-04-06] MEDS: BACLOFEN 20 MG TABLET GT SCH ×3 (05:03→21:11)
[2020-04-06] MEDS: OMEPRAZOLE 20 MG CAPSULE.DR GT SCH (05:03)
[2020-04-06] MEDS: METOCLOPRAMIDE HCL 10 MG/10 ML UDC GT SCH ×4 (05:03→23:10)
[2020-04-06] MEDS: MULTIVIT, IRON, MIN NO. 8, FA TABLET GT SCH (05:03)
[2020-04-06 07:42] VITALS: BP 116/64
[2020-04-06] MEDS: DOCUSATE SODIUM 100 MG/10 ML LIQUID UDC GT SCH (09:00)
[2020-04-06] MEDS: HYDROGEN PEROXIDE 3% 118 ML BOTTLE TP SCH ×2 (09:00→21:05)
[2020-04-06] MEDS: BISACODYL 10 MG SUPP.RECT RC PRN (09:01)
[2020-04-06] MEDS: MIRALAX 17 GM POWD.PACK GT SCH (09:01)
[2020-04-06] MEDS: COD LIVER OIL/ZINC OXIDE OINT 113 GM TUBE TP SCH ×2 (09:01→20:55)
[2020-04-06] MEDS: levETIRAcetam 500 MG/5 ML LIQUID UDC GT SCH ×2 (09:01→20:55)
[2020-04-06] MEDS: ACIDOPHILUS/BULGARICUS CHEW TAB GT SCH ×2 (09:01→20:55)
[2020-04-06] MEDS: POTASSIUM CHLORIDE 40 MEQ/30 ML LIQUID UDC GT SCH (09:01)
[2020-04-06] MEDS: RIVAROXABAN 15 MG TABLET GT SCH (20:49)
[2020-04-06] MEDS: MELATONIN 3 MG TABLET GT SCH (20:49)
[2020-04-06] MEDS: PROTEIN SUPPLEMENT (PROSTAT) 30 ML LIQUID GT SCH (20:55)
[2020-04-06] MEDS: NUTRISOURCE FIBER 4 GM PACKET GT SCH (20:55)
[2020-04-06] MEDS: ASCORBIC ACID 500 MG TABLET GT SCH (20:55)
[2020-04-06] MEDS: MAGNESIUM COMPLEX GT SCH (20:55)
[2020-04-06] MEDS: CRANBERRY 500 MG GT SCH (20:55)
[2020-04-06 21:41] VITALS: BP 100/58
[2020-04-07] MEDS: BACLOFEN 20 MG TABLET GT SCH ×3 (05:33→21:14)
[2020-04-07] MEDS: OMEPRAZOLE 20 MG CAPSULE.DR GT SCH (05:33)
[2020-04-07] MEDS: METOCLOPRAMIDE HCL 10 MG/10 ML UDC GT SCH ×4 (05:33→23:05)
[2020-04-07] MEDS: MULTIVIT, IRON, MIN NO. 8, FA TABLET GT SCH (05:33)
[2020-04-07 07:45] VITALS: BP 120/67
[2020-04-07 08:05] VITALS: BP 120/67
[2020-04-07] MEDS: MIRALAX 17 GM POWD.PACK GT SCH (08:29)
[2020-04-07] MEDS: ACIDOPHILUS/BULGARICUS CHEW TAB GT SCH ×2 (08:29→20:49)
[2020-04-07] MEDS: POTASSIUM CHLORIDE 40 MEQ/30 ML LIQUID UDC GT SCH (08:29)
[2020-04-07] MEDS: levETIRAcetam 500 MG/5 ML LIQUID UDC GT SCH ×2 (08:29→20:49)
[2020-04-07] MEDS: DOCUSATE SODIUM 100 MG/10 ML LIQUID UDC GT SCH (08:29)
[2020-04-07] MEDS: COD LIVER OIL/ZINC OXIDE OINT 113 GM TUBE TP SCH ×2 (08:29→20:49)
[2020-04-07] MEDS: HYDROGEN PEROXIDE 3% 118 ML BOTTLE TP SCH ×2 (09:00→21:13)
[2020-04-07] MEDS: RIVAROXABAN 15 MG TABLET GT SCH (20:40)
[2020-04-07] MEDS: PROTEIN SUPPLEMENT (PROSTAT) 30 ML LIQUID GT SCH (20:49)
[2020-04-07] MEDS: MELATONIN 3 MG TABLET GT SCH (20:49)
[2020-04-07] MEDS: MAGNESIUM COMPLEX GT SCH (20:49)
[2020-04-07] MEDS: CRANBERRY 500 MG GT SCH (20:49)
[2020-04-07] MEDS: NUTRISOURCE FIBER 4 GM PACKET GT SCH (20:49)
[2020-04-07] MEDS: ASCORBIC ACID 500 MG TABLET GT SCH (20:49)
[2020-04-07] MEDS: TWOCAL HN 1,000 ML LIQUID GT PRN (22:40)
[2020-04-07 23:05] VITALS: BP 107/66
[2020-04-08] MEDS: OMEPRAZOLE 20 MG CAPSULE.DR GT SCH (05:12)
[2020-04-08] MEDS: MULTIVIT, IRON, MIN NO. 8, FA TABLET GT SCH (05:12)
[2020-04-08] MEDS: METOCLOPRAMIDE HCL 10 MG/10 ML UDC GT SCH ×3 (05:12→17:17)
[2020-04-08] MEDS: BACLOFEN 20 MG TABLET GT SCH ×3 (05:12→22:03)
[2020-04-08 08:00] VITALS: BP 94/56
[2020-04-08] MEDS: COD LIVER OIL/ZINC OXIDE OINT 113 GM TUBE TP SCH ×2 (08:34→20:45)
[2020-04-08] MEDS: MIRALAX 17 GM POWD.PACK GT SCH (08:34)
[2020-04-08] MEDS: DOCUSATE SODIUM 100 MG/10 ML LIQUID UDC GT SCH (08:34)
[2020-04-08] MEDS: ACIDOPHILUS/BULGARICUS CHEW TAB GT SCH ×2 (08:34→20:43)
[2020-04-08] MEDS: POTASSIUM CHLORIDE 40 MEQ/30 ML LIQUID UDC GT SCH (08:34)
[2020-04-08] MEDS: levETIRAcetam 500 MG/5 ML LIQUID UDC GT SCH ×2 (08:34→20:43)
[2020-04-08] MEDS: HYDROGEN PEROXIDE 3% 118 ML BOTTLE TP SCH ×2 (09:15→21:15)
--- NOTE | 2020-04-08 14:30 | NUR ---
zoom meeting provided to PT's mother.
[2020-04-08] MEDS: MELATONIN 3 MG TABLET GT SCH (20:43)
[2020-04-08] MEDS: CRANBERRY 500 MG GT SCH (20:43)
[2020-04-08] MEDS: MAGNESIUM COMPLEX GT SCH (20:43)
[2020-04-08] MEDS: PROTEIN SUPPLEMENT (PROSTAT) 30 ML LIQUID GT SCH (20:44)
[2020-04-08] MEDS: NUTRISOURCE FIBER 4 GM PACKET GT SCH (20:44)
[2020-04-08] MEDS: ASCORBIC ACID 500 MG TABLET GT SCH (20:44)
[2020-04-08] MEDS: RIVAROXABAN 15 MG TABLET GT SCH (21:50)
[2020-04-08 22:52] VITALS: BP 102/58
[2020-04-09] MEDS: METOCLOPRAMIDE HCL 10 MG/10 ML UDC GT SCH ×4 (00:29→17:21)
[2020-04-09] MEDS: MULTIVIT, IRON, MIN NO. 8, FA TABLET GT SCH (05:52)
[2020-04-09] MEDS: OMEPRAZOLE 20 MG CAPSULE.DR GT SCH (05:52)
[2020-04-09] MEDS: BACLOFEN 20 MG TABLET GT SCH ×3 (05:52→22:10)
[2020-04-09 07:40] VITALS: BP 97/61
[2020-04-09] MEDS: ACIDOPHILUS/BULGARICUS CHEW TAB GT SCH ×2 (08:57→20:27)
[2020-04-09] MEDS: POTASSIUM CHLORIDE 40 MEQ/30 ML LIQUID UDC GT SCH (08:57)
[2020-04-09] MEDS: MIRALAX 17 GM POWD.PACK GT SCH (08:57)
[2020-04-09] MEDS: DOCUSATE SODIUM 100 MG/10 ML LIQUID UDC GT SCH (08:57)
[2020-04-09] MEDS: levETIRAcetam 500 MG/5 ML LIQUID UDC GT SCH ×2 (08:57→20:27)
[2020-04-09] MEDS: COAL TAR TOP SCH (08:58)
[2020-04-09] MEDS: COD LIVER OIL/ZINC OXIDE OINT 113 GM TUBE TP SCH ×2 (08:58→20:28)
[2020-04-09] MEDS: HYDROGEN PEROXIDE 3% 118 ML BOTTLE TP SCH ×2 (08:58→21:36)
--- NOTE | 2020-04-09 15:00 | NUR ---
zoom meeting provided to pt's sister.
--- NOTE | 2020-04-09 16:09 | NUR ---
2:00pm: Family meeting held today, via speaker phone. Present in this meeting were patient's parents, Abdi Franco and Jeanne Franco, along with Subacute Director Raghavendra Alexander, nursing home admissions director Harmeet Sampson, ironing pleater Consuelo, RT Arvind Jacobo, PT Radha Huffman, Heat Curer Codie Gamino, and this SW. Patient's parents wanted to discuss their wishes to take the patient home by the end of the calendar year. All disciplines discussed the level of care that will be required in their respective services. Caregiver training and DME needs were discussed. Patient currently has a wheelchair and a hannah lift. Patient's father Abdi discussed his concerns about the trach and his preference to get the trach removed before patient is discharged home. The team suggested that his concerns would be best addressed by Dr. Cartagena, which can be done during the IDT meeting next week, 04/16, and Abdi expressed understanding and agreement. Plan: Family to participate in the IDT meeting on 04/16. IDT team will continue to discuss discharge planning needs with the family, as necessary, and will work with the family to coordinate a safe discharge plan.
[2020-04-09] MEDS: MAGNESIUM COMPLEX GT SCH (20:27)
[2020-04-09] MEDS: MELATONIN 3 MG TABLET GT SCH (20:27)
[2020-04-09] MEDS: CRANBERRY 500 MG GT SCH (20:27)
[2020-04-09] MEDS: PROTEIN SUPPLEMENT (PROSTAT) 30 ML LIQUID GT SCH (20:27)
[2020-04-09] MEDS: NUTRISOURCE FIBER 4 GM PACKET GT SCH (20:27)
[2020-04-09 20:28] VITALS: BP 122/74
[2020-04-09] MEDS: ASCORBIC ACID 500 MG TABLET GT SCH (20:28)
[2020-04-09] MEDS: RIVAROXABAN 15 MG TABLET GT SCH (21:30)
[2020-04-10] MEDS: METOCLOPRAMIDE HCL 10 MG/10 ML UDC GT SCH ×4 (00:29→17:45)
[2020-04-10] MEDS: OMEPRAZOLE 20 MG CAPSULE.DR GT SCH (06:47)
[2020-04-10] MEDS: MULTIVIT, IRON, MIN NO. 8, FA TABLET GT SCH (06:47)
[2020-04-10] MEDS: BACLOFEN 20 MG TABLET GT SCH ×3 (06:47→21:42)
[2020-04-10 07:47] VITALS: BP 110/61
[2020-04-10] MEDS: levETIRAcetam 500 MG/5 ML LIQUID UDC GT SCH ×2 (08:08→21:41)
[2020-04-10] MEDS: MIRALAX 17 GM POWD.PACK GT SCH (08:08)
[2020-04-10] MEDS: ACIDOPHILUS/BULGARICUS CHEW TAB GT SCH ×2 (08:08→21:40)
[2020-04-10] MEDS: DOCUSATE SODIUM 100 MG/10 ML LIQUID UDC GT SCH (08:08)
[2020-04-10] MEDS: POTASSIUM CHLORIDE 40 MEQ/30 ML LIQUID UDC GT SCH (08:10)
[2020-04-10] MEDS: COD LIVER OIL/ZINC OXIDE OINT 113 GM TUBE TP SCH ×2 (08:10→21:42)
[2020-04-10] MEDS: HYDROGEN PEROXIDE 3% 118 ML BOTTLE TP SCH ×2 (09:00→21:00)
--- NOTE | 2020-04-10 11:00 | NUR ---
Zoom meeting provided to PT's father. PT is calm, awake, no signs of distress and relax. No bleeding noted. Will continue to monitor.
--- NOTE | 2020-04-10 16:06 | NUR ---
ISAÍAS called patient's father Abdi [phone] and confirmed IDT meeting date and time of 04/16/2020 at 11am. ISAÍAS asked Abdi if he would like to participate in the meeting through speaker phone, and Abdi stated that he would like to participate. ISAÍAS informed Abdi to be available between 11am-12pm on 04/16 in order to accept ISAÍSA's call during the meeting. Abdi expressed agreement.
[2020-04-10 20:03] VITALS: BP 99/52
[2020-04-10] MEDS: RIVAROXABAN 15 MG TABLET GT SCH (20:28)
[2020-04-10] MEDS: MELATONIN 3 MG TABLET GT SCH (21:40)
[2020-04-10] MEDS: MAGNESIUM COMPLEX GT SCH (21:41)
[2020-04-10] MEDS: ASCORBIC ACID 500 MG TABLET GT SCH (21:41)
[2020-04-10] MEDS: CRANBERRY 500 MG GT SCH (21:41)
[2020-04-10] MEDS: PROTEIN SUPPLEMENT (PROSTAT) 30 ML LIQUID GT SCH (21:41)
[2020-04-10] MEDS: NUTRISOURCE FIBER 4 GM PACKET GT SCH (21:41)
[2020-04-11] MEDS: METOCLOPRAMIDE HCL 10 MG/10 ML UDC GT SCH ×4 (00:58→17:35)
[2020-04-11] MEDS: MULTIVIT, IRON, MIN NO. 8, FA TABLET GT SCH (06:37)
[2020-04-11] MEDS: OMEPRAZOLE 20 MG CAPSULE.DR GT SCH (06:37)
[2020-04-11] MEDS: BACLOFEN 20 MG TABLET GT SCH ×3 (06:37→22:33)
[2020-04-11] MEDS: HYDROGEN PEROXIDE 3% 118 ML BOTTLE TP SCH ×2 (07:08→21:03)
[2020-04-11 07:49] VITALS: BP 103/59
[2020-04-11] MEDS: ACIDOPHILUS/BULGARICUS CHEW TAB GT SCH ×2 (08:27→20:34)
[2020-04-11] MEDS: DOCUSATE SODIUM 100 MG/10 ML LIQUID UDC GT SCH (08:27)
[2020-04-11] MEDS: levETIRAcetam 500 MG/5 ML LIQUID UDC GT SCH ×2 (08:28→20:29)
[2020-04-11] MEDS: POTASSIUM CHLORIDE 40 MEQ/30 ML LIQUID UDC GT SCH (08:28)
[2020-04-11] MEDS: MIRALAX 17 GM POWD.PACK GT SCH (08:28)
[2020-04-11] MEDS: COD LIVER OIL/ZINC OXIDE OINT 113 GM TUBE TP SCH ×2 (08:28→20:36)
--- NOTE | 2020-04-11 15:00 | NUR ---
SEEN BY DR. ESCOTO AND WITH NNO.
[2020-04-11 20:00] VITALS: BP 101/61
[2020-04-11] MEDS: MELATONIN 3 MG TABLET GT SCH (20:34)
[2020-04-11] MEDS: NUTRISOURCE FIBER 4 GM PACKET GT SCH (20:35)
[2020-04-11] MEDS: PROTEIN SUPPLEMENT (PROSTAT) 30 ML LIQUID GT SCH (20:35)
[2020-04-11] MEDS: CRANBERRY 500 MG GT SCH (20:35)
[2020-04-11] MEDS: ASCORBIC ACID 500 MG TABLET GT SCH (20:35)
[2020-04-11] MEDS: MAGNESIUM COMPLEX GT SCH (20:35)
[2020-04-11] MEDS: TWOCAL HN 1,000 ML LIQUID GT PRN (20:38)
[2020-04-11] MEDS: RIVAROXABAN 15 MG TABLET GT SCH (21:25)
[2020-04-12] MEDS: METOCLOPRAMIDE HCL 10 MG/10 ML UDC GT SCH ×5 (00:44→23:13)
[2020-04-12] MEDS: MULTIVIT, IRON, MIN NO. 8, FA TABLET GT SCH (05:19)
[2020-04-12] MEDS: BACLOFEN 20 MG TABLET GT SCH ×3 (05:19→21:11)
[2020-04-12] MEDS: OMEPRAZOLE 20 MG CAPSULE.DR GT SCH (05:19)
[2020-04-12] MEDS: HYDROGEN PEROXIDE 3% 118 ML BOTTLE TP SCH ×2 (07:13→21:35)
[2020-04-12 07:46] VITALS: BP 103/64
[2020-04-12] MEDS: levETIRAcetam 500 MG/5 ML LIQUID UDC GT SCH ×2 (08:41→20:56)
[2020-04-12] MEDS: MIRALAX 17 GM POWD.PACK GT SCH (08:41)
[2020-04-12] MEDS: ACIDOPHILUS/BULGARICUS CHEW TAB GT SCH ×2 (08:41→20:55)
[2020-04-12] MEDS: DOCUSATE SODIUM 100 MG/10 ML LIQUID UDC GT SCH (08:41)
[2020-04-12] MEDS: POTASSIUM CHLORIDE 40 MEQ/30 ML LIQUID UDC GT SCH (08:42)
[2020-04-12] MEDS: COAL TAR TOP SCH (08:42)
[2020-04-12] MEDS: COD LIVER OIL/ZINC OXIDE OINT 113 GM TUBE TP SCH ×2 (08:42→20:57)
[2020-04-12 20:19] VITALS: BP 94/60
[2020-04-12] MEDS: MELATONIN 3 MG TABLET GT SCH (20:56)
[2020-04-12] MEDS: NUTRISOURCE FIBER 4 GM PACKET GT SCH (20:56)
[2020-04-12] MEDS: PROTEIN SUPPLEMENT (PROSTAT) 30 ML LIQUID GT SCH (20:56)
[2020-04-12] MEDS: CRANBERRY 500 MG GT SCH (20:56)
[2020-04-12] MEDS: MAGNESIUM COMPLEX GT SCH (20:56)
[2020-04-12] MEDS: ASCORBIC ACID 500 MG TABLET GT SCH (20:57)
[2020-04-12] MEDS: RIVAROXABAN 15 MG TABLET GT SCH (21:14)
[2020-04-13] MEDS: MULTIVIT, IRON, MIN NO. 8, FA TABLET GT SCH (05:35)
[2020-04-13] MEDS: BACLOFEN 20 MG TABLET GT SCH ×3 (05:35→22:12)
[2020-04-13] MEDS: OMEPRAZOLE 20 MG CAPSULE.DR GT SCH (05:35)
[2020-04-13] MEDS: METOCLOPRAMIDE HCL 10 MG/10 ML UDC GT SCH ×3 (05:35→17:15)
[2020-04-13 07:47] VITALS: BP 139/74
[2020-04-13 07:51] VITALS: BP 117/62
[2020-04-13] MEDS: DOCUSATE SODIUM 100 MG/10 ML LIQUID UDC GT SCH (08:48)
[2020-04-13] MEDS: ACIDOPHILUS/BULGARICUS CHEW TAB GT SCH ×2 (08:48→20:34)
[2020-04-13] MEDS: COD LIVER OIL/ZINC OXIDE OINT 113 GM TUBE TP SCH ×2 (08:48→20:35)
[2020-04-13] MEDS: MIRALAX 17 GM POWD.PACK GT SCH (08:48)
[2020-04-13] MEDS: POTASSIUM CHLORIDE 40 MEQ/30 ML LIQUID UDC GT SCH (08:48)
[2020-04-13] MEDS: levETIRAcetam 500 MG/5 ML LIQUID UDC GT SCH ×2 (08:48→20:34)
[2020-04-13] MEDS: HYDROGEN PEROXIDE 3% 118 ML BOTTLE TP SCH ×2 (09:00→21:33)
--- NOTE | 2020-04-13 09:45 | NUR ---
SEEN BY DR. SKINNER AND WITH NNO.
--- NOTE | 2020-04-13 14:42 | NUR ---
Pt had video zoom with mother x 5 min.
[2020-04-13 20:18] VITALS: BP 107/60
[2020-04-13] MEDS: NUTRISOURCE FIBER 4 GM PACKET GT SCH (20:35)
[2020-04-13] MEDS: MAGNESIUM COMPLEX GT SCH (20:35)
[2020-04-13] MEDS: CRANBERRY 500 MG GT SCH (20:35)
[2020-04-13] MEDS: MELATONIN 3 MG TABLET GT SCH (20:35)
[2020-04-13] MEDS: PROTEIN SUPPLEMENT (PROSTAT) 30 ML LIQUID GT SCH (20:35)
[2020-04-13] MEDS: ASCORBIC ACID 500 MG TABLET GT SCH (20:35)
[2020-04-13] MEDS: TWOCAL HN 1,000 ML LIQUID GT PRN (20:36)
[2020-04-13] MEDS: RIVAROXABAN 15 MG TABLET GT SCH (20:40)
[2020-04-14] MEDS: METOCLOPRAMIDE HCL 10 MG/10 ML UDC GT SCH ×4 (00:07→17:25)
[2020-04-14] MEDS: BACLOFEN 20 MG TABLET GT SCH ×3 (05:42→22:05)
[2020-04-14] MEDS: MULTIVIT, IRON, MIN NO. 8, FA TABLET GT SCH (05:42)
[2020-04-14] MEDS: OMEPRAZOLE 20 MG CAPSULE.DR GT SCH (05:42)
[2020-04-14] MEDS: HYDROGEN PEROXIDE 3% 118 ML BOTTLE TP SCH ×2 (07:48→21:17)
[2020-04-14 08:08] VITALS: BP 97/54
[2020-04-14] MEDS: ACIDOPHILUS/BULGARICUS CHEW TAB GT SCH ×2 (08:44→21:00)
[2020-04-14] MEDS: DOCUSATE SODIUM 100 MG/10 ML LIQUID UDC GT SCH (08:44)
[2020-04-14] MEDS: POTASSIUM CHLORIDE 40 MEQ/30 ML LIQUID UDC GT SCH (08:44)
[2020-04-14] MEDS: MIRALAX 17 GM POWD.PACK GT SCH (08:44)
[2020-04-14] MEDS: levETIRAcetam 500 MG/5 ML LIQUID UDC GT SCH ×2 (08:44→21:00)
[2020-04-14] MEDS: COD LIVER OIL/ZINC OXIDE OINT 113 GM TUBE TP SCH ×2 (08:44→21:00)
--- NOTE | 2020-04-14 10:00 | NUR ---
Provided video chat to pt. and her father with no problem, kept pt. clean and comfortable , all needs attended.
[2020-04-14 20:02] VITALS: BP 101/62
[2020-04-14] MEDS: RIVAROXABAN 15 MG TABLET GT SCH (21:00)
[2020-04-14] MEDS: ASCORBIC ACID 500 MG TABLET GT SCH (21:00)
[2020-04-14] MEDS: PROTEIN SUPPLEMENT (PROSTAT) 30 ML LIQUID GT SCH (21:00)
[2020-04-14] MEDS: MAGNESIUM COMPLEX GT SCH (21:00)
[2020-04-14] MEDS: NUTRISOURCE FIBER 4 GM PACKET GT SCH (21:00)
[2020-04-14] MEDS: CRANBERRY 500 MG GT SCH (21:00)
[2020-04-14] MEDS: MELATONIN 3 MG TABLET GT SCH (21:00)
[2020-04-15] MEDS: METOCLOPRAMIDE HCL 10 MG/10 ML UDC GT SCH ×4 (00:56→17:20)
[2020-04-15] MEDS: MULTIVIT, IRON, MIN NO. 8, FA TABLET GT SCH (06:00)
[2020-04-15] MEDS: OMEPRAZOLE 20 MG CAPSULE.DR GT SCH (06:00)
[2020-04-15] MEDS: BACLOFEN 20 MG TABLET GT SCH ×3 (06:00→22:28)
[2020-04-15 07:52] VITALS: BP 99/56
[2020-04-15] MEDS: DOCUSATE SODIUM 100 MG/10 ML LIQUID UDC GT SCH (08:50)
[2020-04-15] MEDS: MIRALAX 17 GM POWD.PACK GT SCH (08:50)
[2020-04-15] MEDS: ACIDOPHILUS/BULGARICUS CHEW TAB GT SCH ×2 (08:50→21:00)
[2020-04-15] MEDS: levETIRAcetam 500 MG/5 ML LIQUID UDC GT SCH ×2 (08:50→21:00)
[2020-04-15] MEDS: POTASSIUM CHLORIDE 40 MEQ/30 ML LIQUID UDC GT SCH (08:51)
[2020-04-15] MEDS: COD LIVER OIL/ZINC OXIDE OINT 113 GM TUBE TP SCH ×2 (08:51→21:00)
[2020-04-15] MEDS: HYDROGEN PEROXIDE 3% 118 ML BOTTLE TP SCH ×2 (09:00→21:28)
--- NOTE | 2020-04-15 11:12 | NUR ---
NEW ORDER CARRIED OUT FROM DR. ESCOTO FOR COVID19 TEST ,PT'S FATHER AWARE AND IN AGREEMENT AND CARRIED OUT.
[2020-04-15 20:27] VITALS: BP 114/65
[2020-04-15] MEDS: PROTEIN SUPPLEMENT (PROSTAT) 30 ML LIQUID GT SCH (21:00)
[2020-04-15] MEDS: MELATONIN 3 MG TABLET GT SCH (21:00)
[2020-04-15] MEDS: MAGNESIUM COMPLEX GT SCH (21:00)
[2020-04-15] MEDS: CRANBERRY 500 MG GT SCH (21:00)
[2020-04-15] MEDS: ASCORBIC ACID 500 MG TABLET GT SCH (21:00)
[2020-04-15] MEDS: NUTRISOURCE FIBER 4 GM PACKET GT SCH (21:00)
[2020-04-15] MEDS: RIVAROXABAN 15 MG TABLET GT SCH (21:00)
[2020-04-16] MEDS: METOCLOPRAMIDE HCL 10 MG/10 ML UDC GT SCH ×4 (00:06→17:24)
[2020-04-16] MEDS: OMEPRAZOLE 20 MG CAPSULE.DR GT SCH (06:15)
[2020-04-16] MEDS: BACLOFEN 20 MG TABLET GT SCH ×3 (06:15→22:00)
[2020-04-16] MEDS: MULTIVIT, IRON, MIN NO. 8, FA TABLET GT SCH (06:16)
[2020-04-16] MEDS: TWOCAL HN 1,000 ML LIQUID GT PRN (06:51)
[2020-04-16 07:25] VITALS: BP 100/56
[2020-04-16] MEDS: ACIDOPHILUS/BULGARICUS CHEW TAB GT SCH ×2 (09:51→20:42)
[2020-04-16] MEDS: DOCUSATE SODIUM 100 MG/10 ML LIQUID UDC GT SCH (09:51)
[2020-04-16] MEDS: levETIRAcetam 500 MG/5 ML LIQUID UDC GT SCH ×2 (09:51→20:42)
[2020-04-16] MEDS: COD LIVER OIL/ZINC OXIDE OINT 113 GM TUBE TP SCH ×2 (09:52→20:55)
[2020-04-16] MEDS: POTASSIUM CHLORIDE 40 MEQ/30 ML LIQUID UDC GT SCH (09:52)
[2020-04-16] MEDS: COAL TAR TOP SCH (09:52)
[2020-04-16] MEDS: MIRALAX 17 GM POWD.PACK GT SCH (09:52)
[2020-04-16] MEDS: HYDROGEN PEROXIDE 3% 118 ML BOTTLE TP SCH ×2 (09:59→21:52)
--- NOTE | 2020-04-16 15:55 | NUR ---
INTERDISCIPLINARY PLAN OF CARE CONFERENCE was held today. Patient's father Abdi and sister Jeanne participated in the IDT meetings through speaker phone. Dr. Cartagena and the Interdisciplinary Team reviewed the current plan of care in detail. RN reported on patient's medical condition. See RN IDT conference notes. PT reported on ongoing therapy 3 x week. No major changes in medical condition were reported by nursing or by other disciplines. See all other disciplines IDT notes and physician's progress notes for additional details. Abdi's and Jeanne's discuss the family's wishes to take patient home either by the end of this calendar year, or early 2020, as discussed during the family meeting last week, and asked Dr. Cartagena about removing the patient's trach before patient is discharged home. Dr. Cartagena educated both Abdi and Jeanne about the risk factors for the patient that are associated with removing the trach, along with educating them on the guidelines of when it would be safe to remove a trach for any patient. Dr. Cartagena explained to both Abid and Jeanne that the expectation at discharge would be for the same level of care to be provided to the patient at home, as patient is currently receiving, as that is the safest discharge plan that will be acceptable. Jeanne expressed understanding and stated that she will discuss this further with patient's father Abdi and mother Jeanne.
[2020-04-16] MEDS: MELATONIN 3 MG TABLET GT SCH (20:45)
[2020-04-16] MEDS: PROTEIN SUPPLEMENT (PROSTAT) 30 ML LIQUID GT SCH (20:46)
[2020-04-16] MEDS: CRANBERRY 500 MG GT SCH (20:46)
[2020-04-16] MEDS: MAGNESIUM COMPLEX GT SCH (20:46)
[2020-04-16] MEDS: NUTRISOURCE FIBER 4 GM PACKET GT SCH (20:46)
[2020-04-16] MEDS: ASCORBIC ACID 500 MG TABLET GT SCH (20:49)
[2020-04-16] MEDS: RIVAROXABAN 15 MG TABLET GT SCH (20:55)
--- NOTE | 2020-04-16 21:00 | NUR ---
RECEIVED PHONE CALLED FROM [employer] RESULTS IS NEGATIVE NOTED.
[2020-04-16 23:23] VITALS: BP 103/56
--- NOTE | 2020-04-17 00:23 | NUR ---
PT ON CONT /P MIST @ 28% VIA TRACH COLLAR, NO SOB NOTED, PT GRINDS HER TEETH AT TIMES, NO RESP. DISTRESS NOTED, GOOD COUGH EFFORT, SUCTIONED VERY LIGHT WHITISH TINGE SECRETIONS, B/S WITH SLIGHT RHONCHI, CLEARING AFTER SUCTIONING.Mehul GERONIMO RCP TRACH CARE DONE. Mehul ACOSTAP Addendum: 04/17/20 at 0026 by RASHAD GERONIMO RT Amended: Links added.
[2020-04-17] MEDS: BACLOFEN 20 MG TABLET GT SCH ×3 (05:16→21:44)
[2020-04-17] MEDS: OMEPRAZOLE 20 MG CAPSULE.DR GT SCH (05:16)
[2020-04-17] MEDS: METOCLOPRAMIDE HCL 10 MG/10 ML UDC GT SCH ×4 (05:16→17:10)
[2020-04-17] MEDS: MULTIVIT, IRON, MIN NO. 8, FA TABLET GT SCH (05:16)
[2020-04-17] MEDS: HYDROGEN PEROXIDE 3% 118 ML BOTTLE TP SCH ×2 (07:19→19:25)
[2020-04-17 07:51] VITALS: BP 116/68
[2020-04-17] MEDS: ACIDOPHILUS/BULGARICUS CHEW TAB GT SCH ×2 (08:46→21:43)
[2020-04-17] MEDS: DOCUSATE SODIUM 100 MG/10 ML LIQUID UDC GT SCH (08:46)
[2020-04-17] MEDS: levETIRAcetam 500 MG/5 ML LIQUID UDC GT SCH ×2 (08:46→21:43)
[2020-04-17] MEDS: MIRALAX 17 GM POWD.PACK GT SCH (08:46)
[2020-04-17] MEDS: POTASSIUM CHLORIDE 40 MEQ/30 ML LIQUID UDC GT SCH (08:46)
[2020-04-17] MEDS: COD LIVER OIL/ZINC OXIDE OINT 113 GM TUBE TP SCH ×2 (08:47→21:44)
[2020-04-17] MEDS: RIVAROXABAN 15 MG TABLET GT SCH (21:00)
[2020-04-17] MEDS: MAGNESIUM COMPLEX GT SCH (21:43)
[2020-04-17] MEDS: CRANBERRY 500 MG GT SCH (21:43)
[2020-04-17] MEDS: MELATONIN 3 MG TABLET GT SCH (21:43)
[2020-04-17] MEDS: NUTRISOURCE FIBER 4 GM PACKET GT SCH (21:43)
[2020-04-17] MEDS: ASCORBIC ACID 500 MG TABLET GT SCH (21:43)
[2020-04-17] MEDS: PROTEIN SUPPLEMENT (PROSTAT) 30 ML LIQUID GT SCH (21:43)
[2020-04-17 22:15] VITALS: BP 114/72
[2020-04-18] MEDS: TWOCAL HN 1,000 ML LIQUID GT PRN ×2 (02:00→18:24)
--- NOTE | 2020-04-18 05:00 | NUR ---
Patient noted biting on her gown; right side. Noted with redness on right breast with teeth siria, cleansed area anad initiated in- house treatment, kept clean and comfortable.
[2020-04-18] MEDS: MULTIVIT, IRON, MIN NO. 8, FA TABLET GT SCH (06:10)
[2020-04-18] MEDS: BACLOFEN 20 MG TABLET GT SCH ×3 (06:10→22:08)
[2020-04-18] MEDS: METOCLOPRAMIDE HCL 10 MG/10 ML UDC GT SCH ×4 (06:10→18:24)
[2020-04-18] MEDS: NEOMY/BACITRAC/POLYMI OINT 28.35 GM TUBE TOP SCH ×3 (06:10→21:00)
[2020-04-18] MEDS: OMEPRAZOLE 20 MG CAPSULE.DR GT SCH (06:10)
[2020-04-18 08:00] VITALS: BP 94/65
[2020-04-18] MEDS: ACIDOPHILUS/BULGARICUS CHEW TAB GT SCH ×2 (08:49→21:00)
[2020-04-18] MEDS: DOCUSATE SODIUM 100 MG/10 ML LIQUID UDC GT SCH (08:49)
[2020-04-18] MEDS: levETIRAcetam 500 MG/5 ML LIQUID UDC GT SCH ×2 (08:51→21:00)
[2020-04-18] MEDS: MIRALAX 17 GM POWD.PACK GT SCH (08:51)
[2020-04-18] MEDS: COD LIVER OIL/ZINC OXIDE OINT 113 GM TUBE TP SCH ×2 (08:51→21:00)
[2020-04-18] MEDS: POTASSIUM CHLORIDE 40 MEQ/30 ML LIQUID UDC GT SCH (08:51)
[2020-04-18] MEDS: HYDROGEN PEROXIDE 3% 118 ML BOTTLE TP SCH ×2 (10:10→19:32)
--- NOTE | 2020-04-18 16:54 | NUR ---
SEE RESPIRATORY PROGRESS NOTE.
[2020-04-18 20:15] VITALS: BP 105/69
[2020-04-18] MEDS: ASCORBIC ACID 500 MG TABLET GT SCH (21:00)
[2020-04-18] MEDS: ACETAMINOPHEN 650 MG/20 ML UDC- SA PATIENTS-PAIN ONLY GT PRN (21:00)
[2020-04-18] MEDS: MELATONIN 3 MG TABLET GT SCH (21:00)
[2020-04-18] MEDS: CRANBERRY 500 MG GT SCH (21:00)
[2020-04-18] MEDS: MAGNESIUM COMPLEX GT SCH (21:00)
[2020-04-18] MEDS: NUTRISOURCE FIBER 4 GM PACKET GT SCH (21:00)
[2020-04-18] MEDS: RIVAROXABAN 15 MG TABLET GT SCH (21:00)
[2020-04-18] MEDS: PROTEIN SUPPLEMENT (PROSTAT) 30 ML LIQUID GT SCH (21:00)
[2020-04-19] MEDS: METOCLOPRAMIDE HCL 10 MG/10 ML UDC GT SCH ×4 (00:11→17:19)
[2020-04-19] MEDS: OMEPRAZOLE 20 MG CAPSULE.DR GT SCH (05:43)
[2020-04-19] MEDS: BACLOFEN 20 MG TABLET GT SCH ×3 (05:43→22:26)
[2020-04-19] MEDS: MULTIVIT, IRON, MIN NO. 8, FA TABLET GT SCH (05:43)
[2020-04-19 07:55] VITALS: BP 96/57
[2020-04-19] MEDS: HYDROGEN PEROXIDE 3% 118 ML BOTTLE TP SCH ×2 (08:52→21:00)
[2020-04-19] MEDS: levETIRAcetam 500 MG/5 ML LIQUID UDC GT SCH ×2 (09:00→21:00)
[2020-04-19] MEDS: COD LIVER OIL/ZINC OXIDE OINT 113 GM TUBE TP SCH ×2 (09:00→21:00)
[2020-04-19] MEDS: DOCUSATE SODIUM 100 MG/10 ML LIQUID UDC GT SCH (09:00)
[2020-04-19] MEDS: COAL TAR TOP SCH (09:00)
[2020-04-19] MEDS: MIRALAX 17 GM POWD.PACK GT SCH (09:00)
[2020-04-19] MEDS: POTASSIUM CHLORIDE 40 MEQ/30 ML LIQUID UDC GT SCH (09:00)
[2020-04-19] MEDS: ACIDOPHILUS/BULGARICUS CHEW TAB GT SCH ×2 (09:00→21:00)
[2020-04-19] MEDS: NEOMY/BACITRAC/POLYMI OINT 28.35 GM TUBE TOP SCH ×2 (09:00→21:00)
[2020-04-19 20:00] VITALS: BP 112/74
[2020-04-19] MEDS: MAGNESIUM COMPLEX GT SCH (21:00)
[2020-04-19] MEDS: MELATONIN 3 MG TABLET GT SCH (21:00)
[2020-04-19] MEDS: ASCORBIC ACID 500 MG TABLET GT SCH (21:00)
[2020-04-19] MEDS: PROTEIN SUPPLEMENT (PROSTAT) 30 ML LIQUID GT SCH (21:00)
[2020-04-19] MEDS: CRANBERRY 500 MG GT SCH (21:00)
[2020-04-19] MEDS: RIVAROXABAN 15 MG TABLET GT SCH (21:00)
[2020-04-19] MEDS: NUTRISOURCE FIBER 4 GM PACKET GT SCH (21:00)
[2020-04-20] MEDS: METOCLOPRAMIDE HCL 10 MG/10 ML UDC GT SCH ×4 (00:05→17:36)
[2020-04-20] MEDS: BACLOFEN 20 MG TABLET GT SCH ×3 (05:48→22:00)
[2020-04-20] MEDS: MULTIVIT, IRON, MIN NO. 8, FA TABLET GT SCH (05:49)
[2020-04-20] MEDS: OMEPRAZOLE 20 MG CAPSULE.DR GT SCH (05:49)
[2020-04-20 08:11] VITALS: BP 121/63
[2020-04-20] MEDS: NEOMY/BACITRAC/POLYMI OINT 28.35 GM TUBE TOP SCH ×2 (08:29→21:59)
[2020-04-20] MEDS: COD LIVER OIL/ZINC OXIDE OINT 113 GM TUBE TP SCH ×2 (08:29→21:59)
[2020-04-20] MEDS: POTASSIUM CHLORIDE 40 MEQ/30 ML LIQUID UDC GT SCH (08:29)
[2020-04-20] MEDS: DOCUSATE SODIUM 100 MG/10 ML LIQUID UDC GT SCH (08:29)
[2020-04-20] MEDS: levETIRAcetam 500 MG/5 ML LIQUID UDC GT SCH ×2 (08:32→21:59)
[2020-04-20] MEDS: ACIDOPHILUS/BULGARICUS CHEW TAB GT SCH ×2 (08:32→21:59)
[2020-04-20] MEDS: MIRALAX 17 GM POWD.PACK GT SCH (08:32)
[2020-04-20] MEDS: TWOCAL HN 1,000 ML LIQUID GT PRN (08:34)
[2020-04-20] MEDS: HYDROGEN PEROXIDE 3% 118 ML BOTTLE TP SCH ×2 (09:36→22:00)
[2020-04-20 20:00] VITALS: BP 119/75
[2020-04-20] MEDS: RIVAROXABAN 15 MG TABLET GT SCH (21:00)
[2020-04-20] MEDS: ASCORBIC ACID 500 MG TABLET GT SCH (21:59)
[2020-04-20] MEDS: PROTEIN SUPPLEMENT (PROSTAT) 30 ML LIQUID GT SCH (21:59)
[2020-04-20] MEDS: NUTRISOURCE FIBER 4 GM PACKET GT SCH (21:59)
[2020-04-20] MEDS: CRANBERRY 500 MG GT SCH (21:59)
[2020-04-20] MEDS: MAGNESIUM COMPLEX GT SCH (21:59)
[2020-04-20] MEDS: MELATONIN 3 MG TABLET GT SCH (21:59)
[2020-04-21] MEDS: METOCLOPRAMIDE HCL 10 MG/10 ML UDC GT SCH ×5 (00:12→23:14)
--- NOTE | 2020-04-21 04:46 | NUR ---
PT ON CONT COOL AEROSOL VIA TRACH, SUCTION PRN, NO SOB NOTED, PT STABLE, WITH NO RESP DISTRESS, TRACH CARE DONE. Mehul GERONIMO TONGUE AND QUARTER STITCHER Addendum: 04/21/20 at 0447 by RASHAD GERONIMO RT Amended: Links added.
[2020-04-21] MEDS: BACLOFEN 20 MG TABLET GT SCH ×3 (05:32→21:00)
[2020-04-21] MEDS: OMEPRAZOLE 20 MG CAPSULE.DR GT SCH (05:32)
[2020-04-21] MEDS: MULTIVIT, IRON, MIN NO. 8, FA TABLET GT SCH (05:32)
[2020-04-21 07:53] VITALS: BP 104/64
[2020-04-21] MEDS: levETIRAcetam 500 MG/5 ML LIQUID UDC GT SCH ×2 (08:04→20:57)
[2020-04-21] MEDS: ACIDOPHILUS/BULGARICUS CHEW TAB GT SCH ×2 (08:04→20:57)
[2020-04-21] MEDS: DOCUSATE SODIUM 100 MG/10 ML LIQUID UDC GT SCH (08:04)
[2020-04-21] MEDS: MIRALAX 17 GM POWD.PACK GT SCH (08:05)
[2020-04-21] MEDS: POTASSIUM CHLORIDE 40 MEQ/30 ML LIQUID UDC GT SCH (08:05)
[2020-04-21] MEDS: NEOMY/BACITRAC/POLYMI OINT 28.35 GM TUBE TOP SCH ×2 (08:06→20:59)
[2020-04-21] MEDS: COD LIVER OIL/ZINC OXIDE OINT 113 GM TUBE TP SCH ×2 (08:06→20:59)
[2020-04-21] MEDS: HYDROGEN PEROXIDE 3% 118 ML BOTTLE TP SCH ×2 (08:55→21:04)
--- NOTE | 2020-04-21 10:47 | NUR ---
ZOOM PROVIDED TO FATHER.
[2020-04-21 20:25] VITALS: BP 123/76
[2020-04-21] MEDS: MELATONIN 3 MG TABLET GT SCH (20:58)
[2020-04-21] MEDS: MAGNESIUM COMPLEX GT SCH (20:58)
[2020-04-21] MEDS: ASCORBIC ACID 500 MG TABLET GT SCH (20:59)
[2020-04-21] MEDS: CRANBERRY 500 MG GT SCH (20:59)
[2020-04-21] MEDS: NUTRISOURCE FIBER 4 GM PACKET GT SCH (20:59)
[2020-04-21] MEDS: PROTEIN SUPPLEMENT (PROSTAT) 30 ML LIQUID GT SCH (20:59)
[2020-04-21] MEDS: RIVAROXABAN 15 MG TABLET GT SCH (21:05)
[2020-04-22] MEDS: MULTIVIT, IRON, MIN NO. 8, FA TABLET GT SCH (05:06)
[2020-04-22] MEDS: BACLOFEN 20 MG TABLET GT SCH ×3 (05:06→21:01)
[2020-04-22] MEDS: METOCLOPRAMIDE HCL 10 MG/10 ML UDC GT SCH ×3 (05:06→17:08)
[2020-04-22] MEDS: OMEPRAZOLE 20 MG CAPSULE.DR GT SCH (05:06)
[2020-04-22] MEDS: TWOCAL HN 1,000 ML LIQUID GT PRN (05:12)
[2020-04-22 07:49] VITALS: BP 120/70
[2020-04-22] MEDS: ACIDOPHILUS/BULGARICUS CHEW TAB GT SCH ×2 (08:06→20:53)
[2020-04-22] MEDS: levETIRAcetam 500 MG/5 ML LIQUID UDC GT SCH ×2 (08:06→20:53)
[2020-04-22] MEDS: DOCUSATE SODIUM 100 MG/10 ML LIQUID UDC GT SCH (08:06)
[2020-04-22] MEDS: MIRALAX 17 GM POWD.PACK GT SCH (08:07)
[2020-04-22] MEDS: COD LIVER OIL/ZINC OXIDE OINT 113 GM TUBE TP SCH ×2 (08:08→20:56)
[2020-04-22] MEDS: POTASSIUM CHLORIDE 40 MEQ/30 ML LIQUID UDC GT SCH (08:08)
[2020-04-22] MEDS: NEOMY/BACITRAC/POLYMI OINT 28.35 GM TUBE TOP SCH ×2 (08:08→20:56)
[2020-04-22] MEDS: HYDROGEN PEROXIDE 3% 118 ML BOTTLE TP SCH ×2 (08:09→21:25)
--- NOTE | 2020-04-22 19:45 | NUR ---
Pt received on cool aerosol 28% FiO2 tolerating well. Ambubag and spare trach at bedside. Airway is patent and secured. Suctioned PRN. Will continue to monitor.
[2020-04-22] MEDS: RIVAROXABAN 15 MG TABLET GT SCH (20:54)
[2020-04-22] MEDS: CRANBERRY 500 MG GT SCH (20:55)
[2020-04-22] MEDS: MELATONIN 3 MG TABLET GT SCH (20:55)
[2020-04-22] MEDS: NUTRISOURCE FIBER 4 GM PACKET GT SCH (20:56)
[2020-04-22] MEDS: PROTEIN SUPPLEMENT (PROSTAT) 30 ML LIQUID GT SCH (20:56)
[2020-04-22] MEDS: ASCORBIC ACID 500 MG TABLET GT SCH (20:56)
[2020-04-22] MEDS: MAGNESIUM COMPLEX GT SCH (20:56)
[2020-04-23] MEDS: METOCLOPRAMIDE HCL 10 MG/10 ML UDC GT SCH ×4 (00:54→17:01)
[2020-04-23] MEDS: OMEPRAZOLE 20 MG CAPSULE.DR GT SCH (05:06)
[2020-04-23] MEDS: BACLOFEN 20 MG TABLET GT SCH ×3 (05:06→22:41)
[2020-04-23] MEDS: MULTIVIT, IRON, MIN NO. 8, FA TABLET GT SCH (05:07)
[2020-04-23 07:32] VITALS: BP 103/61
[2020-04-23] MEDS: DOCUSATE SODIUM 100 MG/10 ML LIQUID UDC GT SCH (08:14)
[2020-04-23] MEDS: ACIDOPHILUS/BULGARICUS CHEW TAB GT SCH ×2 (08:14→20:49)
[2020-04-23] MEDS: levETIRAcetam 500 MG/5 ML LIQUID UDC GT SCH ×2 (08:15→20:50)
[2020-04-23] MEDS: COAL TAR TOP SCH (08:16)
[2020-04-23] MEDS: MIRALAX 17 GM POWD.PACK GT SCH (08:16)
[2020-04-23] MEDS: POTASSIUM CHLORIDE 40 MEQ/30 ML LIQUID UDC GT SCH (08:16)
[2020-04-23] MEDS: COD LIVER OIL/ZINC OXIDE OINT 113 GM TUBE TP SCH ×2 (08:17→20:52)
[2020-04-23] MEDS: NEOMY/BACITRAC/POLYMI OINT 28.35 GM TUBE TOP SCH ×2 (08:17→20:52)
[2020-04-23] MEDS: HYDROGEN PEROXIDE 3% 118 ML BOTTLE TP SCH ×2 (08:34→18:43)
[2020-04-23 20:46] VITALS: BP 120/60
[2020-04-23] MEDS: RIVAROXABAN 15 MG TABLET GT SCH (20:48)
[2020-04-23] MEDS: ASCORBIC ACID 500 MG TABLET GT SCH (20:49)
[2020-04-23] MEDS: MELATONIN 3 MG TABLET GT SCH (20:51)
[2020-04-23] MEDS: MAGNESIUM COMPLEX GT SCH (20:51)
[2020-04-23] MEDS: CRANBERRY 500 MG GT SCH (20:51)
[2020-04-23] MEDS: NUTRISOURCE FIBER 4 GM PACKET GT SCH (20:51)
[2020-04-23] MEDS: PROTEIN SUPPLEMENT (PROSTAT) 30 ML LIQUID GT SCH (20:51)
[2020-04-24] MEDS: METOCLOPRAMIDE HCL 10 MG/10 ML UDC GT SCH ×4 (00:08→17:08)
[2020-04-24] MEDS: OMEPRAZOLE 20 MG CAPSULE.DR GT SCH (05:48)
[2020-04-24] MEDS: MULTIVIT, IRON, MIN NO. 8, FA TABLET GT SCH (05:48)
[2020-04-24] MEDS: BACLOFEN 20 MG TABLET GT SCH ×3 (05:48→21:17)
[2020-04-24 07:26] VITALS: BP 106/67
[2020-04-24] MEDS: DOCUSATE SODIUM 100 MG/10 ML LIQUID UDC GT SCH (08:14)
[2020-04-24] MEDS: levETIRAcetam 500 MG/5 ML LIQUID UDC GT SCH ×2 (08:14→21:14)
[2020-04-24] MEDS: ACIDOPHILUS/BULGARICUS CHEW TAB GT SCH ×2 (08:14→21:14)
[2020-04-24] MEDS: MIRALAX 17 GM POWD.PACK GT SCH (08:14)
[2020-04-24] MEDS: POTASSIUM CHLORIDE 40 MEQ/30 ML LIQUID UDC GT SCH (08:15)
[2020-04-24] MEDS: COD LIVER OIL/ZINC OXIDE OINT 113 GM TUBE TP SCH ×2 (08:15→21:17)
[2020-04-24] MEDS: NEOMY/BACITRAC/POLYMI OINT 28.35 GM TUBE TOP SCH ×2 (08:15→21:17)
[2020-04-24] MEDS: HYDROGEN PEROXIDE 3% 118 ML BOTTLE TP SCH ×2 (09:20→21:00)
[2020-04-24 20:00] VITALS: BP 102/60
[2020-04-24] MEDS: MELATONIN 3 MG TABLET GT SCH (21:14)
[2020-04-24] MEDS: NUTRISOURCE FIBER 4 GM PACKET GT SCH (21:15)
[2020-04-24] MEDS: CRANBERRY 500 MG GT SCH (21:15)
[2020-04-24] MEDS: MAGNESIUM COMPLEX GT SCH (21:15)
[2020-04-24] MEDS: PROTEIN SUPPLEMENT (PROSTAT) 30 ML LIQUID GT SCH (21:16)
[2020-04-24] MEDS: ASCORBIC ACID 500 MG TABLET GT SCH (21:16)
[2020-04-24] MEDS: RIVAROXABAN 15 MG TABLET GT SCH (21:58)
[2020-04-25] MEDS: METOCLOPRAMIDE HCL 10 MG/10 ML UDC GT SCH ×4 (00:10→18:04)
[2020-04-25] MEDS: OMEPRAZOLE 20 MG CAPSULE.DR GT SCH (05:40)
[2020-04-25] MEDS: BACLOFEN 20 MG TABLET GT SCH ×3 (05:40→22:14)
[2020-04-25] MEDS: MULTIVIT, IRON, MIN NO. 8, FA TABLET GT SCH (05:40)
[2020-04-25] MEDS: HYDROGEN PEROXIDE 3% 118 ML BOTTLE TP SCH ×2 (07:36→20:40)
[2020-04-25 07:41] VITALS: BP 112/69
[2020-04-25] MEDS: ACIDOPHILUS/BULGARICUS CHEW TAB GT SCH ×2 (08:02→21:03)
[2020-04-25] MEDS: DOCUSATE SODIUM 100 MG/10 ML LIQUID UDC GT SCH (08:02)
[2020-04-25] MEDS: MIRALAX 17 GM POWD.PACK GT SCH (08:04)
[2020-04-25] MEDS: POTASSIUM CHLORIDE 40 MEQ/30 ML LIQUID UDC GT SCH (08:04)
[2020-04-25] MEDS: NEOMY/BACITRAC/POLYMI OINT 28.35 GM TUBE TOP SCH ×2 (08:05→21:03)
[2020-04-25] MEDS: COD LIVER OIL/ZINC OXIDE OINT 113 GM TUBE TP SCH ×2 (08:05→21:03)
[2020-04-25] MEDS: levETIRAcetam 500 MG/5 ML LIQUID UDC GT SCH ×2 (08:08→21:03)
[2020-04-25 20:00] VITALS: BP 118/78
[2020-04-25] MEDS: MELATONIN 3 MG TABLET GT SCH (21:03)
[2020-04-25] MEDS: MAGNESIUM COMPLEX GT SCH (21:03)
[2020-04-25] MEDS: CRANBERRY 500 MG GT SCH (21:03)
[2020-04-25] MEDS: NUTRISOURCE FIBER 4 GM PACKET GT SCH (21:03)
[2020-04-25] MEDS: ASCORBIC ACID 500 MG TABLET GT SCH (21:03)
[2020-04-25] MEDS: PROTEIN SUPPLEMENT (PROSTAT) 30 ML LIQUID GT SCH (21:03)
[2020-04-25] MEDS: RIVAROXABAN 15 MG TABLET GT SCH (21:20)
[2020-04-26] MEDS: TWOCAL HN 1,000 ML LIQUID GT PRN (02:40)
[2020-04-26] MEDS: BACLOFEN 20 MG TABLET GT SCH ×3 (05:12→21:07)
[2020-04-26] MEDS: MULTIVIT, IRON, MIN NO. 8, FA TABLET GT SCH (05:12)
[2020-04-26] MEDS: METOCLOPRAMIDE HCL 10 MG/10 ML UDC GT SCH ×4 (05:12→17:03)
[2020-04-26] MEDS: OMEPRAZOLE 20 MG CAPSULE.DR GT SCH (05:12)
[2020-04-26] MEDS: HYDROGEN PEROXIDE 3% 118 ML BOTTLE TP SCH ×2 (07:29→18:52)
[2020-04-26 07:43] VITALS: BP_SYST 107; BP_SYST 114; BP_DIAS 66; BP_DIAS 73
[2020-04-26] MEDS: DOCUSATE SODIUM 100 MG/10 ML LIQUID UDC GT SCH (08:34)
[2020-04-26] MEDS: ACIDOPHILUS/BULGARICUS CHEW TAB GT SCH ×2 (08:34→20:55)
[2020-04-26] MEDS: NEOMY/BACITRAC/POLYMI OINT 28.35 GM TUBE TOP SCH ×2 (08:35→20:56)
[2020-04-26] MEDS: COD LIVER OIL/ZINC OXIDE OINT 113 GM TUBE TP SCH ×2 (08:35→20:56)
[2020-04-26] MEDS: MIRALAX 17 GM POWD.PACK GT SCH (08:35)
[2020-04-26] MEDS: COAL TAR TOP SCH (08:35)
[2020-04-26] MEDS: levETIRAcetam 500 MG/5 ML LIQUID UDC GT SCH ×2 (08:35→20:55)
[2020-04-26] MEDS: POTASSIUM CHLORIDE 40 MEQ/30 ML LIQUID UDC GT SCH (08:35)
--- NOTE | 2020-04-26 10:15 | NUR ---
zoom provided to pt's sister, klarissa.
[2020-04-26 20:00] VITALS: BP 117/74
[2020-04-26] MEDS: MAGNESIUM COMPLEX GT SCH (20:55)
[2020-04-26] MEDS: NUTRISOURCE FIBER 4 GM PACKET GT SCH (20:55)
[2020-04-26] MEDS: MELATONIN 3 MG TABLET GT SCH (20:55)
[2020-04-26] MEDS: CRANBERRY 500 MG GT SCH (20:55)
[2020-04-26] MEDS: PROTEIN SUPPLEMENT (PROSTAT) 30 ML LIQUID GT SCH (20:55)
[2020-04-26] MEDS: ASCORBIC ACID 500 MG TABLET GT SCH (20:56)
[2020-04-26] MEDS: RIVAROXABAN 15 MG TABLET GT SCH (21:07)
[2020-04-27] MEDS: BACLOFEN 20 MG TABLET GT SCH ×3 (05:19→21:06)
[2020-04-27] MEDS: OMEPRAZOLE 20 MG CAPSULE.DR GT SCH (05:19)
[2020-04-27] MEDS: MULTIVIT, IRON, MIN NO. 8, FA TABLET GT SCH (05:20)
[2020-04-27] MEDS: METOCLOPRAMIDE HCL 10 MG/10 ML UDC GT SCH ×5 (05:20→23:36)
[2020-04-27] MEDS: HYDROGEN PEROXIDE 3% 118 ML BOTTLE TP SCH ×2 (07:37→21:35)
[2020-04-27 07:48] VITALS: BP 113/69
[2020-04-27] MEDS: DOCUSATE SODIUM 100 MG/10 ML LIQUID UDC GT SCH (08:42)
[2020-04-27] MEDS: MIRALAX 17 GM POWD.PACK GT SCH (08:42)
[2020-04-27] MEDS: levETIRAcetam 500 MG/5 ML LIQUID UDC GT SCH ×2 (08:42→21:05)
[2020-04-27] MEDS: ACIDOPHILUS/BULGARICUS CHEW TAB GT SCH ×2 (08:42→21:05)
[2020-04-27] MEDS: COD LIVER OIL/ZINC OXIDE OINT 113 GM TUBE TP SCH ×2 (08:43→21:06)
[2020-04-27] MEDS: POTASSIUM CHLORIDE 40 MEQ/30 ML LIQUID UDC GT SCH (08:43)
[2020-04-27] MEDS: NEOMY/BACITRAC/POLYMI OINT 28.35 GM TUBE TOP SCH (08:43)
--- NOTE | 2020-04-27 19:40 | NUR ---
Pt received on cool aerosol 28% FiO2 tolerating well. Ambubag and spare trach at bedside. Airway is patent and secured. Suctioned PRN. Will continue to monitor.
[2020-04-27 20:00] VITALS: BP 116/71
[2020-04-27] MEDS: MAGNESIUM COMPLEX GT SCH (21:05)
[2020-04-27] MEDS: MELATONIN 3 MG TABLET GT SCH (21:05)
[2020-04-27] MEDS: CRANBERRY 500 MG GT SCH (21:05)
[2020-04-27] MEDS: NUTRISOURCE FIBER 4 GM PACKET GT SCH (21:06)
[2020-04-27] MEDS: PROTEIN SUPPLEMENT (PROSTAT) 30 ML LIQUID GT SCH (21:06)
[2020-04-27] MEDS: ASCORBIC ACID 500 MG TABLET GT SCH (21:06)
[2020-04-27] MEDS: RIVAROXABAN 15 MG TABLET GT SCH (21:14)
[2020-04-28] MEDS: TWOCAL HN 1,000 ML LIQUID GT PRN (03:04)
[2020-04-28] MEDS: OMEPRAZOLE 20 MG CAPSULE.DR GT SCH (05:26)
[2020-04-28] MEDS: BACLOFEN 20 MG TABLET GT SCH ×3 (05:26→21:53)
[2020-04-28] MEDS: METOCLOPRAMIDE HCL 10 MG/10 ML UDC GT SCH ×3 (05:26→17:19)
[2020-04-28] MEDS: MULTIVIT, IRON, MIN NO. 8, FA TABLET GT SCH (05:26)
[2020-04-28 07:37] VITALS: BP 100/51
[2020-04-28] MEDS: HYDROGEN PEROXIDE 3% 118 ML BOTTLE TP SCH ×2 (08:09→21:00)
[2020-04-28] MEDS: DOCUSATE SODIUM 100 MG/10 ML LIQUID UDC GT SCH (08:46)
[2020-04-28] MEDS: ACIDOPHILUS/BULGARICUS CHEW TAB GT SCH ×2 (08:46→21:53)
[2020-04-28] MEDS: COD LIVER OIL/ZINC OXIDE OINT 113 GM TUBE TP SCH ×2 (08:46→21:53)
[2020-04-28] MEDS: MIRALAX 17 GM POWD.PACK GT SCH (08:46)
[2020-04-28] MEDS: levETIRAcetam 500 MG/5 ML LIQUID UDC GT SCH ×2 (08:46→21:53)
[2020-04-28] MEDS: POTASSIUM CHLORIDE 40 MEQ/30 ML LIQUID UDC GT SCH (08:46)
--- NOTE | 2020-04-28 11:00 | NUR ---
Provided video chat to pt. and her father with no problem, kept pt. clean and comfortable, all needs attended and anticipated.
[2020-04-28 20:58] VITALS: BP 115/62
[2020-04-28] MEDS: RIVAROXABAN 15 MG TABLET GT SCH (21:00)
[2020-04-28] MEDS: CRANBERRY 500 MG GT SCH (21:53)
[2020-04-28] MEDS: PROTEIN SUPPLEMENT (PROSTAT) 30 ML LIQUID GT SCH (21:53)
[2020-04-28] MEDS: MELATONIN 3 MG TABLET GT SCH (21:53)
[2020-04-28] MEDS: ASCORBIC ACID 500 MG TABLET GT SCH (21:53)
[2020-04-28] MEDS: NUTRISOURCE FIBER 4 GM PACKET GT SCH (21:53)
[2020-04-28] MEDS: MAGNESIUM COMPLEX GT SCH (21:53)
[2020-04-29] MEDS: BACLOFEN 20 MG TABLET GT SCH ×3 (06:51→21:11)
[2020-04-29] MEDS: MULTIVIT, IRON, MIN NO. 8, FA TABLET GT SCH (06:51)
[2020-04-29] MEDS: METOCLOPRAMIDE HCL 10 MG/10 ML UDC GT SCH ×4 (06:51→17:32)
[2020-04-29] MEDS: OMEPRAZOLE 20 MG CAPSULE.DR GT SCH (06:51)
[2020-04-29 07:46] VITALS: BP 95/64
[2020-04-29] MEDS: HYDROGEN PEROXIDE 3% 118 ML BOTTLE TP SCH ×2 (08:22→18:49)
[2020-04-29] MEDS: MIRALAX 17 GM POWD.PACK GT SCH (08:41)
[2020-04-29] MEDS: POTASSIUM CHLORIDE 40 MEQ/30 ML LIQUID UDC GT SCH (08:41)
[2020-04-29] MEDS: ACIDOPHILUS/BULGARICUS CHEW TAB GT SCH ×2 (08:41→21:10)
[2020-04-29] MEDS: DOCUSATE SODIUM 100 MG/10 ML LIQUID UDC GT SCH (08:41)
[2020-04-29] MEDS: levETIRAcetam 500 MG/5 ML LIQUID UDC GT SCH ×2 (08:41→21:10)
[2020-04-29] MEDS: COD LIVER OIL/ZINC OXIDE OINT 113 GM TUBE TP SCH ×2 (08:42→21:11)
--- NOTE | 2020-04-29 17:30 | NUR ---
Provided video chat to pt. and her mother with no problem noted.Kept pt. clean and comfortable, all needs attended and anticipated.
[2020-04-29 20:47] VITALS: BP 110/62
[2020-04-29] MEDS: RIVAROXABAN 15 MG TABLET GT SCH (21:00)
[2020-04-29] MEDS: CRANBERRY 500 MG GT SCH (21:10)
[2020-04-29] MEDS: MELATONIN 3 MG TABLET GT SCH (21:10)
[2020-04-29] MEDS: MAGNESIUM COMPLEX GT SCH (21:10)
[2020-04-29] MEDS: NUTRISOURCE FIBER 4 GM PACKET GT SCH (21:11)
[2020-04-29] MEDS: ASCORBIC ACID 500 MG TABLET GT SCH (21:11)
[2020-04-29] MEDS: PROTEIN SUPPLEMENT (PROSTAT) 30 ML LIQUID GT SCH (21:11)
[2020-04-30] MEDS: MULTIVIT, IRON, MIN NO. 8, FA TABLET GT SCH (05:50)
[2020-04-30] MEDS: METOCLOPRAMIDE HCL 10 MG/10 ML UDC GT SCH ×4 (05:50→17:12)
[2020-04-30] MEDS: OMEPRAZOLE 20 MG CAPSULE.DR GT SCH (05:50)
[2020-04-30] MEDS: BACLOFEN 20 MG TABLET GT SCH ×3 (05:50→21:13)
[2020-04-30 07:50] VITALS: BP 101/58
[2020-04-30] MEDS: levETIRAcetam 500 MG/5 ML LIQUID UDC GT SCH ×2 (08:27→21:09)
[2020-04-30] MEDS: DOCUSATE SODIUM 100 MG/10 ML LIQUID UDC GT SCH (08:27)
[2020-04-30] MEDS: ACIDOPHILUS/BULGARICUS CHEW TAB GT SCH ×2 (08:27→21:09)
[2020-04-30] MEDS: POTASSIUM CHLORIDE 40 MEQ/30 ML LIQUID UDC GT SCH (08:28)
[2020-04-30] MEDS: MIRALAX 17 GM POWD.PACK GT SCH (08:28)
[2020-04-30] MEDS: COD LIVER OIL/ZINC OXIDE OINT 113 GM TUBE TP SCH ×2 (08:29→21:13)
[2020-04-30] MEDS: COAL TAR TOP SCH (08:29)
[2020-04-30] MEDS: HYDROGEN PEROXIDE 3% 118 ML BOTTLE TP SCH ×2 (09:00→21:41)
--- NOTE | 2020-04-30 15:09 | NUR ---
NEW ORDER CARRIED OUT FOR OT EVAL CARRIED OUT FROM [facility]. FOR SPLINT MANAGEMENT BILATERAL ELBOWS.
--- NOTE | 2020-04-30 15:30 | NUR ---
video chat done with patient's sister.
[2020-04-30] MEDS: TWOCAL HN 1,000 ML LIQUID GT PRN (17:45)
[2020-04-30] MEDS: POLYVINYL ALCOHOL OPHT DROPS 15 ML BOTTLE EACHEYE PRN (17:45)
[2020-04-30 20:26] VITALS: BP 119/73
[2020-04-30] MEDS: MELATONIN 3 MG TABLET GT SCH (21:10)
[2020-04-30] MEDS: PROTEIN SUPPLEMENT (PROSTAT) 30 ML LIQUID GT SCH (21:11)
[2020-04-30] MEDS: ASCORBIC ACID 500 MG TABLET GT SCH (21:11)
[2020-04-30] MEDS: MAGNESIUM COMPLEX GT SCH (21:11)
[2020-04-30] MEDS: NUTRISOURCE FIBER 4 GM PACKET GT SCH (21:11)
[2020-04-30] MEDS: CRANBERRY 500 MG GT SCH (21:11)
[2020-04-30] MEDS: RIVAROXABAN 15 MG TABLET GT SCH (21:12)
[2020-05-01] MEDS: METOCLOPRAMIDE HCL 10 MG/10 ML UDC GT SCH ×5 (00:56→23:29)
[2020-05-01] MEDS: BACLOFEN 20 MG TABLET GT SCH ×3 (05:32→21:08)
[2020-05-01] MEDS: OMEPRAZOLE 20 MG CAPSULE.DR GT SCH (05:32)
[2020-05-01] MEDS: MULTIVIT, IRON, MIN NO. 8, FA TABLET GT SCH (05:32)
[2020-05-01 07:30] VITALS: BP 116/61
[2020-05-01] MEDS: HYDROGEN PEROXIDE 3% 118 ML BOTTLE TP SCH ×2 (08:27→19:05)
[2020-05-01] MEDS: DOCUSATE SODIUM 100 MG/10 ML LIQUID UDC GT SCH (08:29)
[2020-05-01] MEDS: MIRALAX 17 GM POWD.PACK GT SCH (08:30)
[2020-05-01] MEDS: ACIDOPHILUS/BULGARICUS CHEW TAB GT SCH ×2 (08:30→20:44)
[2020-05-01] MEDS: POTASSIUM CHLORIDE 40 MEQ/30 ML LIQUID UDC GT SCH (08:30)
[2020-05-01] MEDS: levETIRAcetam 500 MG/5 ML LIQUID UDC GT SCH ×2 (08:30→20:44)
[2020-05-01] MEDS: COD LIVER OIL/ZINC OXIDE OINT 113 GM TUBE TP SCH ×2 (08:31→20:47)
--- NOTE | 2020-05-01 10:45 | NUR ---
video chat done with patient's dad.
[2020-05-01] MEDS: CRANBERRY 500 MG GT SCH (20:45)
[2020-05-01] MEDS: MELATONIN 3 MG TABLET GT SCH (20:45)
[2020-05-01] MEDS: PROTEIN SUPPLEMENT (PROSTAT) 30 ML LIQUID GT SCH (20:46)
[2020-05-01] MEDS: ASCORBIC ACID 500 MG TABLET GT SCH (20:46)
[2020-05-01] MEDS: NUTRISOURCE FIBER 4 GM PACKET GT SCH (20:46)
[2020-05-01] MEDS: MAGNESIUM COMPLEX GT SCH (20:46)
[2020-05-01] MEDS: RIVAROXABAN 15 MG TABLET GT SCH (20:57)
[2020-05-01 22:23] VITALS: BP 100/63
[2020-05-02] MEDS: BACLOFEN 20 MG TABLET GT SCH ×3 (05:28→21:40)
[2020-05-02] MEDS: OMEPRAZOLE 20 MG CAPSULE.DR GT SCH (05:28)
[2020-05-02] MEDS: MULTIVIT, IRON, MIN NO. 8, FA TABLET GT SCH (05:28)
[2020-05-02] MEDS: METOCLOPRAMIDE HCL 10 MG/10 ML UDC GT SCH ×3 (05:28→18:02)
[2020-05-02 07:27] VITALS: BP 116/60
[2020-05-02] MEDS: DOCUSATE SODIUM 100 MG/10 ML LIQUID UDC GT SCH (09:16)
[2020-05-02] MEDS: POTASSIUM CHLORIDE 40 MEQ/30 ML LIQUID UDC GT SCH (09:16)
[2020-05-02] MEDS: ACIDOPHILUS/BULGARICUS CHEW TAB GT SCH ×2 (09:16→21:33)
[2020-05-02] MEDS: COD LIVER OIL/ZINC OXIDE OINT 113 GM TUBE TP SCH ×2 (09:16→21:40)
[2020-05-02] MEDS: levETIRAcetam 500 MG/5 ML LIQUID UDC GT SCH ×2 (09:16→21:33)
[2020-05-02] MEDS: MIRALAX 17 GM POWD.PACK GT SCH (09:16)
[2020-05-02] MEDS: HYDROGEN PEROXIDE 3% 118 ML BOTTLE TP SCH ×2 (09:28→18:50)
[2020-05-02] MEDS: TWOCAL HN 1,000 ML LIQUID GT PRN (13:26)
[2020-05-02] MEDS: MELATONIN 3 MG TABLET GT SCH (21:34)
[2020-05-02] MEDS: CRANBERRY 500 MG GT SCH (21:34)
[2020-05-02] MEDS: NUTRISOURCE FIBER 4 GM PACKET GT SCH (21:34)
[2020-05-02] MEDS: MAGNESIUM COMPLEX GT SCH (21:34)
[2020-05-02] MEDS: ASCORBIC ACID 500 MG TABLET GT SCH (21:35)
[2020-05-02] MEDS: PROTEIN SUPPLEMENT (PROSTAT) 30 ML LIQUID GT SCH (21:35)
[2020-05-02] MEDS: RIVAROXABAN 15 MG TABLET GT SCH (21:36)
[2020-05-02 22:48] VITALS: BP 116/64
[2020-05-03] MEDS: BACLOFEN 20 MG TABLET GT SCH ×3 (05:45→21:02)
[2020-05-03] MEDS: METOCLOPRAMIDE HCL 10 MG/10 ML UDC GT SCH ×5 (05:45→23:08)
[2020-05-03] MEDS: OMEPRAZOLE 20 MG CAPSULE.DR GT SCH (05:45)
[2020-05-03] MEDS: MULTIVIT, IRON, MIN NO. 8, FA TABLET GT SCH (05:45)
[2020-05-03 07:32] VITALS: BP 120/61
[2020-05-03] MEDS: DOCUSATE SODIUM 100 MG/10 ML LIQUID UDC GT SCH (08:19)
[2020-05-03] MEDS: ACIDOPHILUS/BULGARICUS CHEW TAB GT SCH ×2 (08:19→21:02)
[2020-05-03] MEDS: MIRALAX 17 GM POWD.PACK GT SCH (08:20)
[2020-05-03] MEDS: POTASSIUM CHLORIDE 40 MEQ/30 ML LIQUID UDC GT SCH (08:20)
[2020-05-03] MEDS: levETIRAcetam 500 MG/5 ML LIQUID UDC GT SCH ×2 (08:20→21:02)
[2020-05-03] MEDS: COD LIVER OIL/ZINC OXIDE OINT 113 GM TUBE TP SCH ×2 (08:21→21:02)
[2020-05-03] MEDS: COAL TAR TOP SCH (08:21)
[2020-05-03] MEDS: HYDROGEN PEROXIDE 3% 118 ML BOTTLE TP SCH ×2 (09:51→21:18)
[2020-05-03] MEDS: NUTRISOURCE FIBER 4 GM PACKET GT SCH (21:02)
[2020-05-03] MEDS: MELATONIN 3 MG TABLET GT SCH (21:02)
[2020-05-03] MEDS: MAGNESIUM COMPLEX GT SCH (21:02)
[2020-05-03] MEDS: ASCORBIC ACID 500 MG TABLET GT SCH (21:02)
[2020-05-03] MEDS: PROTEIN SUPPLEMENT (PROSTAT) 30 ML LIQUID GT SCH (21:02)
[2020-05-03] MEDS: CRANBERRY 500 MG GT SCH (21:02)
[2020-05-03] MEDS: RIVAROXABAN 15 MG TABLET GT SCH (21:13)
[2020-05-03 22:31] VITALS: BP 112/66
[2020-05-04] MEDS: MULTIVIT, IRON, MIN NO. 8, FA TABLET GT SCH (05:19)
[2020-05-04] MEDS: METOCLOPRAMIDE HCL 10 MG/10 ML UDC GT SCH ×4 (05:19→23:06)
[2020-05-04] MEDS: BACLOFEN 20 MG TABLET GT SCH ×3 (05:19→21:01)
[2020-05-04] MEDS: OMEPRAZOLE 20 MG CAPSULE.DR GT SCH (05:19)
[2020-05-04 07:54] VITALS: BP 115/63
[2020-05-04] MEDS: COD LIVER OIL/ZINC OXIDE OINT 113 GM TUBE TP SCH ×2 (09:00→20:56)
[2020-05-04] MEDS: HYDROGEN PEROXIDE 3% 118 ML BOTTLE TP SCH ×2 (09:00→21:24)
[2020-05-04] MEDS: MIRALAX 17 GM POWD.PACK GT SCH (09:00)
[2020-05-04] MEDS: DOCUSATE SODIUM 100 MG/10 ML LIQUID UDC GT SCH (09:46)
[2020-05-04] MEDS: ACIDOPHILUS/BULGARICUS CHEW TAB GT SCH ×2 (09:47→20:56)
[2020-05-04] MEDS: levETIRAcetam 500 MG/5 ML LIQUID UDC GT SCH ×2 (09:49→20:56)
[2020-05-04] MEDS: POTASSIUM CHLORIDE 40 MEQ/30 ML LIQUID UDC GT SCH (09:51)
[2020-05-04] MEDS: TWOCAL HN 1,000 ML LIQUID GT PRN (14:36)
[2020-05-04] MEDS: RIVAROXABAN 15 MG TABLET GT SCH (20:55)
[2020-05-04] MEDS: NUTRISOURCE FIBER 4 GM PACKET GT SCH (20:56)
[2020-05-04] MEDS: ASCORBIC ACID 500 MG TABLET GT SCH (20:56)
[2020-05-04] MEDS: PROTEIN SUPPLEMENT (PROSTAT) 30 ML LIQUID GT SCH (20:56)
[2020-05-04] MEDS: CRANBERRY 500 MG GT SCH (20:56)
[2020-05-04] MEDS: MAGNESIUM COMPLEX GT SCH (20:56)
[2020-05-04] MEDS: MELATONIN 3 MG TABLET GT SCH (20:56)
[2020-05-04 22:45] VITALS: BP 101/72
[2020-05-05] MEDS: BACLOFEN 20 MG TABLET GT SCH ×3 (05:34→21:04)
[2020-05-05] MEDS: METOCLOPRAMIDE HCL 10 MG/10 ML UDC GT SCH ×4 (05:34→23:10)
[2020-05-05] MEDS: OMEPRAZOLE 20 MG CAPSULE.DR GT SCH (05:34)
[2020-05-05] MEDS: MULTIVIT, IRON, MIN NO. 8, FA TABLET GT SCH (05:34)
[2020-05-05 07:44] VITALS: BP 120/61
[2020-05-05] MEDS: DOCUSATE SODIUM 100 MG/10 ML LIQUID UDC GT SCH (08:48)
[2020-05-05] MEDS: ACIDOPHILUS/BULGARICUS CHEW TAB GT SCH ×2 (08:49→21:04)
[2020-05-05] MEDS: MIRALAX 17 GM POWD.PACK GT SCH (08:49)
[2020-05-05] MEDS: levETIRAcetam 500 MG/5 ML LIQUID UDC GT SCH ×2 (08:49→21:04)
[2020-05-05] MEDS: COD LIVER OIL/ZINC OXIDE OINT 113 GM TUBE TP SCH ×2 (08:53→21:04)
[2020-05-05] MEDS: POTASSIUM CHLORIDE 40 MEQ/30 ML LIQUID UDC GT SCH (08:53)
[2020-05-05] MEDS: HYDROGEN PEROXIDE 3% 118 ML BOTTLE TP SCH ×2 (10:30→21:05)
--- NOTE | 2020-05-05 10:30 | NUR ---
ZOOM PROVIDED TO FATHER.
--- NOTE | 2020-05-05 16:00 | NUR ---
Per Mother Jeanne is okay to give Flu shot to her daughter.
[2020-05-05] MEDS: BISACODYL 10 MG SUPP.RECT RC PRN (16:25)
[2020-05-05] MEDS: RIVAROXABAN 15 MG TABLET GT SCH (20:47)
[2020-05-05] MEDS: NUTRISOURCE FIBER 4 GM PACKET GT SCH (21:04)
[2020-05-05] MEDS: CRANBERRY 500 MG GT SCH (21:04)
[2020-05-05] MEDS: ASCORBIC ACID 500 MG TABLET GT SCH (21:04)
[2020-05-05] MEDS: PROTEIN SUPPLEMENT (PROSTAT) 30 ML LIQUID GT SCH (21:04)
[2020-05-05] MEDS: MAGNESIUM COMPLEX GT SCH (21:04)
[2020-05-05] MEDS: MELATONIN 3 MG TABLET GT SCH (21:04)
[2020-05-05 22:47] VITALS: BP 112/76
[2020-05-06] MEDS: BACLOFEN 20 MG TABLET GT SCH ×3 (05:17→22:13)
[2020-05-06] MEDS: OMEPRAZOLE 20 MG CAPSULE.DR GT SCH (05:17)
[2020-05-06] MEDS: METOCLOPRAMIDE HCL 10 MG/10 ML UDC GT SCH ×3 (05:18→17:24)
[2020-05-06] MEDS: MULTIVIT, IRON, MIN NO. 8, FA TABLET GT SCH (05:18)
[2020-05-06 07:47] VITALS: BP 92/57
[2020-05-06] MEDS: levETIRAcetam 500 MG/5 ML LIQUID UDC GT SCH ×2 (08:09→21:59)
[2020-05-06] MEDS: DOCUSATE SODIUM 100 MG/10 ML LIQUID UDC GT SCH (08:09)
[2020-05-06] MEDS: ACIDOPHILUS/BULGARICUS CHEW TAB GT SCH ×2 (08:09→21:59)
[2020-05-06] MEDS: MIRALAX 17 GM POWD.PACK GT SCH (08:10)
[2020-05-06] MEDS: COD LIVER OIL/ZINC OXIDE OINT 113 GM TUBE TP SCH ×2 (08:10→21:59)
[2020-05-06] MEDS: POTASSIUM CHLORIDE 40 MEQ/30 ML LIQUID UDC GT SCH (08:10)
[2020-05-06] MEDS: HYDROGEN PEROXIDE 3% 118 ML BOTTLE TP SCH ×2 (09:21→21:59)
[2020-05-06 20:42] VITALS: BP 101/61
[2020-05-06] MEDS: MAGNESIUM COMPLEX GT SCH (21:59)
[2020-05-06] MEDS: CRANBERRY 500 MG GT SCH (21:59)
[2020-05-06] MEDS: ASCORBIC ACID 500 MG TABLET GT SCH (21:59)
[2020-05-06] MEDS: MELATONIN 3 MG TABLET GT SCH (21:59)
[2020-05-06] MEDS: NUTRISOURCE FIBER 4 GM PACKET GT SCH (21:59)
[2020-05-06] MEDS: PROTEIN SUPPLEMENT (PROSTAT) 30 ML LIQUID GT SCH (21:59)
[2020-05-06] MEDS: RIVAROXABAN 15 MG TABLET GT SCH (22:00)
--- NOTE | 2020-05-06 23:14 | NUR ---
Pt received on cool aerosol 28% FiO2 tolerating well. Ambubag and spare trach at bedside. Airway is patent and secured. Suctioned PRN. Will continue to monitor.
[2020-05-07] MEDS: BACLOFEN 20 MG TABLET GT SCH ×3 (05:23→21:36)
[2020-05-07] MEDS: OMEPRAZOLE 20 MG CAPSULE.DR GT SCH (05:23)
[2020-05-07] MEDS: MULTIVIT, IRON, MIN NO. 8, FA TABLET GT SCH (05:25)
[2020-05-07] MEDS: METOCLOPRAMIDE HCL 10 MG/10 ML UDC GT SCH ×4 (05:25→18:28)
[2020-05-07] MEDS: ACETAMINOPHEN 650 MG/20 ML UDC- SA PATIENTS-PAIN ONLY GT PRN (05:29)
[2020-05-07 07:36] VITALS: BP 129/52
[2020-05-07] MEDS: ACIDOPHILUS/BULGARICUS CHEW TAB GT SCH ×2 (08:24→21:32)
[2020-05-07] MEDS: DOCUSATE SODIUM 100 MG/10 ML LIQUID UDC GT SCH (08:24)
[2020-05-07] MEDS: POTASSIUM CHLORIDE 40 MEQ/30 ML LIQUID UDC GT SCH (08:25)
[2020-05-07] MEDS: MIRALAX 17 GM POWD.PACK GT SCH (08:25)
[2020-05-07] MEDS: levETIRAcetam 500 MG/5 ML LIQUID UDC GT SCH ×2 (08:25→21:32)
[2020-05-07] MEDS: COAL TAR TOP SCH (08:26)
[2020-05-07] MEDS: COD LIVER OIL/ZINC OXIDE OINT 113 GM TUBE TP SCH ×2 (08:26→21:36)
[2020-05-07] MEDS: HYDROGEN PEROXIDE 3% 118 ML BOTTLE TP SCH ×2 (09:07→21:38)
--- NOTE | 2020-05-07 15:00 | NUR ---
Zoom meeting provided with pt's sister.
[2020-05-07 20:00] VITALS: BP 109/55
[2020-05-07] MEDS: MAGNESIUM COMPLEX GT SCH (21:34)
[2020-05-07] MEDS: NUTRISOURCE FIBER 4 GM PACKET GT SCH (21:34)
[2020-05-07] MEDS: PROTEIN SUPPLEMENT (PROSTAT) 30 ML LIQUID GT SCH (21:34)
[2020-05-07] MEDS: CRANBERRY 500 MG GT SCH (21:34)
[2020-05-07] MEDS: ASCORBIC ACID 500 MG TABLET GT SCH (21:34)
[2020-05-07] MEDS: MELATONIN 3 MG TABLET GT SCH (21:34)
[2020-05-07] MEDS: RIVAROXABAN 15 MG TABLET GT SCH (21:36)
[2020-05-08] MEDS: METOCLOPRAMIDE HCL 10 MG/10 ML UDC GT SCH ×4 (00:34→17:04)
[2020-05-08] MEDS: OMEPRAZOLE 20 MG CAPSULE.DR GT SCH (05:46)
[2020-05-08] MEDS: BACLOFEN 20 MG TABLET GT SCH ×3 (05:46→22:26)
[2020-05-08] MEDS: MULTIVIT, IRON, MIN NO. 8, FA TABLET GT SCH (05:46)
[2020-05-08 07:40] VITALS: BP 116/72
[2020-05-08] MEDS: DOCUSATE SODIUM 100 MG/10 ML LIQUID UDC GT SCH (08:16)
[2020-05-08] MEDS: ACIDOPHILUS/BULGARICUS CHEW TAB GT SCH ×2 (08:16→20:45)
[2020-05-08] MEDS: levETIRAcetam 500 MG/5 ML LIQUID UDC GT SCH ×2 (08:17→20:45)
[2020-05-08] MEDS: COD LIVER OIL/ZINC OXIDE OINT 113 GM TUBE TP SCH ×2 (08:18→20:49)
[2020-05-08] MEDS: MIRALAX 17 GM POWD.PACK GT SCH (08:18)
[2020-05-08] MEDS: POTASSIUM CHLORIDE 40 MEQ/30 ML LIQUID UDC GT SCH (08:18)
[2020-05-08] MEDS: HYDROGEN PEROXIDE 3% 118 ML BOTTLE TP SCH ×2 (09:00→21:49)
--- NOTE | 2020-05-08 11:30 | NUR ---
Video chat provided with father at this time.
--- NOTE | 2020-05-08 12:15 | NUR ---
SW emailed patient's sister Jeanne to let her know that the next IDT meeting for the patient is scheduled for 05/14/2020 at 11am. ISAÍAS asked Jeanne to let this SW know if Jeanne would like to participate in the meeting through speaker phone.
[2020-05-08 20:09] VITALS: BP 108/79
[2020-05-08] MEDS: MELATONIN 3 MG TABLET GT SCH (20:45)
[2020-05-08] MEDS: CRANBERRY 500 MG GT SCH (20:46)
[2020-05-08] MEDS: MAGNESIUM COMPLEX GT SCH (20:46)
[2020-05-08] MEDS: ASCORBIC ACID 500 MG TABLET GT SCH (20:47)
[2020-05-08] MEDS: NUTRISOURCE FIBER 4 GM PACKET GT SCH (20:47)
[2020-05-08] MEDS: PROTEIN SUPPLEMENT (PROSTAT) 30 ML LIQUID GT SCH (20:47)
[2020-05-08] MEDS: RIVAROXABAN 15 MG TABLET GT SCH (20:48)
[2020-05-09] MEDS: TWOCAL HN 1,000 ML LIQUID GT PRN (03:00)
[2020-05-09] MEDS: METOCLOPRAMIDE HCL 10 MG/10 ML UDC GT SCH ×4 (06:01→17:22)
[2020-05-09] MEDS: BACLOFEN 20 MG TABLET GT SCH ×3 (06:01→22:58)
[2020-05-09] MEDS: OMEPRAZOLE 20 MG CAPSULE.DR GT SCH (06:01)
[2020-05-09] MEDS: MULTIVIT, IRON, MIN NO. 8, FA TABLET GT SCH (06:01)
[2020-05-09] MEDS: HYDROGEN PEROXIDE 3% 118 ML BOTTLE TP SCH ×2 (07:24→21:00)
[2020-05-09 07:45] VITALS: BP 112/62
[2020-05-09] MEDS: ACIDOPHILUS/BULGARICUS CHEW TAB GT SCH ×2 (08:16→20:49)
[2020-05-09] MEDS: MIRALAX 17 GM POWD.PACK GT SCH (08:16)
[2020-05-09] MEDS: DOCUSATE SODIUM 100 MG/10 ML LIQUID UDC GT SCH (08:16)
[2020-05-09] MEDS: levETIRAcetam 500 MG/5 ML LIQUID UDC GT SCH ×2 (08:17→20:50)
[2020-05-09] MEDS: POTASSIUM CHLORIDE 40 MEQ/30 ML LIQUID UDC GT SCH (08:17)
[2020-05-09] MEDS: COD LIVER OIL/ZINC OXIDE OINT 113 GM TUBE TP SCH ×2 (08:19→20:52)
--- NOTE | 2020-05-09 13:02 | NUR ---
ISAÍAS received an email response back from patient's sister Jeanne, stating that she would like to participate in the IDT meeting scheduled for 05/14. ISAÍAS asked Jeanne to be available on 05/14 between the hours of 11am-12pm in order to received this ISAÍAS's call during the meeting.
--- NOTE | 2020-05-09 19:28 | NUR ---
NEW ORDER FOR FLU VACCINE OBTAINED FROM [facility]
[2020-05-09 20:00] VITALS: BP 111/78
[2020-05-09] MEDS: MELATONIN 3 MG TABLET GT SCH (20:50)
[2020-05-09] MEDS: NUTRISOURCE FIBER 4 GM PACKET GT SCH (20:50)
[2020-05-09] MEDS: PROTEIN SUPPLEMENT (PROSTAT) 30 ML LIQUID GT SCH (20:50)
[2020-05-09] MEDS: ASCORBIC ACID 500 MG TABLET GT SCH (20:50)
[2020-05-09] MEDS: CRANBERRY 500 MG GT SCH (20:50)
[2020-05-09] MEDS: MAGNESIUM COMPLEX GT SCH (20:50)
[2020-05-09] MEDS: RIVAROXABAN 15 MG TABLET GT SCH (20:51)
[2020-05-10] MEDS: OMEPRAZOLE 20 MG CAPSULE.DR GT SCH (05:07)
[2020-05-10] MEDS: METOCLOPRAMIDE HCL 10 MG/10 ML UDC GT SCH ×4 (05:07→17:05)
[2020-05-10] MEDS: MULTIVIT, IRON, MIN NO. 8, FA TABLET GT SCH (05:07)
[2020-05-10] MEDS: BACLOFEN 20 MG TABLET GT SCH ×3 (05:07→22:18)
[2020-05-10 07:44] VITALS: BP 121/74
[2020-05-10] MEDS: HYDROGEN PEROXIDE 3% 118 ML BOTTLE TP SCH ×2 (08:13→18:45)
--- NOTE | 2020-05-10 08:20 | NUR ---
Pt received on cool aerosol 28% FiO2 tolerating well. Ambubag and spare trach at bedside. Airway is patent and secured. Suctioned PRN. Will continue to monitor.
[2020-05-10] MEDS: levETIRAcetam 500 MG/5 ML LIQUID UDC GT SCH ×2 (08:34→21:00)
[2020-05-10] MEDS: MIRALAX 17 GM POWD.PACK GT SCH (08:34)
[2020-05-10] MEDS: COD LIVER OIL/ZINC OXIDE OINT 113 GM TUBE TP SCH ×2 (08:34→21:00)
[2020-05-10] MEDS: ACIDOPHILUS/BULGARICUS CHEW TAB GT SCH ×2 (08:34→21:00)
[2020-05-10] MEDS: DOCUSATE SODIUM 100 MG/10 ML LIQUID UDC GT SCH (08:34)
[2020-05-10] MEDS: POTASSIUM CHLORIDE 40 MEQ/30 ML LIQUID UDC GT SCH (08:34)
[2020-05-10] MEDS: COAL TAR TOP SCH (08:34)
--- NOTE | 2020-05-10 18:56 | NUR ---
NO A/R TO FLU VACCINE ,AFEBRILE.
[2020-05-10 20:48] VITALS: BP 110/70
[2020-05-10] MEDS: NUTRISOURCE FIBER 4 GM PACKET GT SCH (21:00)
[2020-05-10] MEDS: ASCORBIC ACID 500 MG TABLET GT SCH (21:00)
[2020-05-10] MEDS: RIVAROXABAN 15 MG TABLET GT SCH (21:00)
[2020-05-10] MEDS: MAGNESIUM COMPLEX GT SCH (21:00)
[2020-05-10] MEDS: PROTEIN SUPPLEMENT (PROSTAT) 30 ML LIQUID GT SCH (21:00)
[2020-05-10] MEDS: CRANBERRY 500 MG GT SCH (21:00)
[2020-05-10] MEDS: MELATONIN 3 MG TABLET GT SCH (21:00)
--- NOTE | 2020-05-10 22:52 | NUR ---
Afebrile, no adverse reactions noted from the flu vaccine.
[2020-05-11] MEDS: METOCLOPRAMIDE HCL 10 MG/10 ML UDC GT SCH ×4 (00:08→17:12)
[2020-05-11] MEDS: OMEPRAZOLE 20 MG CAPSULE.DR GT SCH (06:04)
[2020-05-11] MEDS: BACLOFEN 20 MG TABLET GT SCH ×3 (06:04→21:57)
[2020-05-11] MEDS: MULTIVIT, IRON, MIN NO. 8, FA TABLET GT SCH (06:04)
[2020-05-11 07:38] VITALS: BP 120/62
[2020-05-11] MEDS: POTASSIUM CHLORIDE 40 MEQ/30 ML LIQUID UDC GT SCH (08:25)
[2020-05-11] MEDS: DOCUSATE SODIUM 100 MG/10 ML LIQUID UDC GT SCH (08:25)
[2020-05-11] MEDS: COD LIVER OIL/ZINC OXIDE OINT 113 GM TUBE TP SCH ×2 (08:25→20:42)
[2020-05-11] MEDS: MIRALAX 17 GM POWD.PACK GT SCH (08:25)
[2020-05-11] MEDS: levETIRAcetam 500 MG/5 ML LIQUID UDC GT SCH ×2 (08:25→20:41)
[2020-05-11] MEDS: ACIDOPHILUS/BULGARICUS CHEW TAB GT SCH ×2 (08:25→20:40)
[2020-05-11] MEDS: HYDROGEN PEROXIDE 3% 118 ML BOTTLE TP SCH ×2 (09:00→19:13)
--- NOTE | 2020-05-11 18:20 | NUR ---
NO A/R TO FLU VACCINE ,AFEBRILE.
[2020-05-11 20:07] VITALS: BP 111/69
[2020-05-11] MEDS: MELATONIN 3 MG TABLET GT SCH (20:41)
[2020-05-11] MEDS: ASCORBIC ACID 500 MG TABLET GT SCH (20:41)
[2020-05-11] MEDS: CRANBERRY 500 MG GT SCH (20:41)
[2020-05-11] MEDS: PROTEIN SUPPLEMENT (PROSTAT) 30 ML LIQUID GT SCH (20:41)
[2020-05-11] MEDS: NUTRISOURCE FIBER 4 GM PACKET GT SCH (20:41)
[2020-05-11] MEDS: MAGNESIUM COMPLEX GT SCH (20:41)
[2020-05-11] MEDS: RIVAROXABAN 15 MG TABLET GT SCH (20:42)
--- NOTE | 2020-05-11 21:54 | NUR ---
Afebrile, no adverse reactions from flu vaccine, no redness on injection site.
[2020-05-12] MEDS: METOCLOPRAMIDE HCL 10 MG/10 ML UDC GT SCH ×4 (00:28→17:35)
[2020-05-12] MEDS: BACLOFEN 20 MG TABLET GT SCH ×3 (06:39→21:44)
[2020-05-12] MEDS: OMEPRAZOLE 20 MG CAPSULE.DR GT SCH (06:39)
[2020-05-12] MEDS: MULTIVIT, IRON, MIN NO. 8, FA TABLET GT SCH (06:39)
[2020-05-12 07:37] VITALS: BP 139/88
[2020-05-12] MEDS: HYDROGEN PEROXIDE 3% 118 ML BOTTLE TP SCH ×2 (07:56→18:46)
[2020-05-12] MEDS: MIRALAX 17 GM POWD.PACK GT SCH (08:16)
[2020-05-12] MEDS: COD LIVER OIL/ZINC OXIDE OINT 113 GM TUBE TP SCH ×2 (08:16→21:44)
[2020-05-12] MEDS: POTASSIUM CHLORIDE 40 MEQ/30 ML LIQUID UDC GT SCH (08:16)
[2020-05-12] MEDS: DOCUSATE SODIUM 100 MG/10 ML LIQUID UDC GT SCH (08:16)
[2020-05-12] MEDS: ACIDOPHILUS/BULGARICUS CHEW TAB GT SCH ×2 (08:16→21:39)
[2020-05-12] MEDS: levETIRAcetam 500 MG/5 ML LIQUID UDC GT SCH ×2 (08:16→21:39)
--- NOTE | 2020-05-12 11:39 | NUR ---
Video call provided with the family. Family expressed gratitude.
--- NOTE | 2020-05-12 13:57 | NUR ---
NO A/R TO FLU VACCINE ,AFEBRILE.
[2020-05-12 20:20] VITALS: BP 105/74
[2020-05-12] MEDS: MELATONIN 3 MG TABLET GT SCH (21:39)
[2020-05-12] MEDS: NUTRISOURCE FIBER 4 GM PACKET GT SCH (21:43)
[2020-05-12] MEDS: ASCORBIC ACID 500 MG TABLET GT SCH (21:43)
[2020-05-12] MEDS: PROTEIN SUPPLEMENT (PROSTAT) 30 ML LIQUID GT SCH (21:43)
[2020-05-12] MEDS: RIVAROXABAN 15 MG TABLET GT SCH (21:43)
[2020-05-12] MEDS: CRANBERRY 500 MG GT SCH (21:44)
[2020-05-12] MEDS: MAGNESIUM COMPLEX GT SCH (21:44)
[2020-05-13] MEDS: METOCLOPRAMIDE HCL 10 MG/10 ML UDC GT SCH ×4 (00:37→17:39)
[2020-05-13] MEDS: OMEPRAZOLE 20 MG CAPSULE.DR GT SCH (05:25)
[2020-05-13] MEDS: MULTIVIT, IRON, MIN NO. 8, FA TABLET GT SCH (05:25)
[2020-05-13] MEDS: BACLOFEN 20 MG TABLET GT SCH ×3 (05:25→22:03)
--- NOTE | 2020-05-13 06:59 | NUR ---
No A/R to flu vaccine, afebrile.
[2020-05-13 07:37] VITALS: BP 124/78
[2020-05-13] MEDS: MIRALAX 17 GM POWD.PACK GT SCH (08:23)
[2020-05-13] MEDS: ACIDOPHILUS/BULGARICUS CHEW TAB GT SCH ×2 (08:23→20:23)
[2020-05-13] MEDS: levETIRAcetam 500 MG/5 ML LIQUID UDC GT SCH ×2 (08:23→20:23)
[2020-05-13] MEDS: POTASSIUM CHLORIDE 40 MEQ/30 ML LIQUID UDC GT SCH (08:23)
[2020-05-13] MEDS: DOCUSATE SODIUM 100 MG/10 ML LIQUID UDC GT SCH (08:23)
[2020-05-13] MEDS: COD LIVER OIL/ZINC OXIDE OINT 113 GM TUBE TP SCH ×2 (08:24→20:26)
[2020-05-13] MEDS: HYDROGEN PEROXIDE 3% 118 ML BOTTLE TP SCH ×2 (09:48→21:40)
--- NOTE | 2020-05-13 13:30 | NUR ---
SEEN BY [place] GRANT.
[2020-05-13] MEDS: TWOCAL HN 1,000 ML LIQUID GT PRN (14:58)
--- NOTE | 2020-05-13 18:10 | NUR ---
SEEN BY DR.SANTA MORRIS AND WITH NNO.
[2020-05-13] MEDS: MAGNESIUM COMPLEX GT SCH (20:25)
[2020-05-13] MEDS: NUTRISOURCE FIBER 4 GM PACKET GT SCH (20:25)
[2020-05-13] MEDS: ASCORBIC ACID 500 MG TABLET GT SCH (20:25)
[2020-05-13] MEDS: MELATONIN 3 MG TABLET GT SCH (20:25)
[2020-05-13] MEDS: PROTEIN SUPPLEMENT (PROSTAT) 30 ML LIQUID GT SCH (20:25)
[2020-05-13] MEDS: CRANBERRY 500 MG GT SCH (20:25)
[2020-05-13] MEDS: RIVAROXABAN 15 MG TABLET GT SCH (20:30)
[2020-05-13 20:33] VITALS: BP 117/75
--- NOTE | 2020-05-13 21:02 | NUR ---
Received pt on cool aerosol with FIO2-28% via trach mask. No s/s of respiratory distress noted. Airway care and trach care done, pt responded to physical stimuli. PRN HHN tx not give at this time. Resus. bag and back up trach at bedside. Cont. monitor.
[2020-05-14] MEDS: METOCLOPRAMIDE HCL 10 MG/10 ML UDC GT SCH ×4 (00:51→17:54)
[2020-05-14] MEDS: OMEPRAZOLE 20 MG CAPSULE.DR GT SCH (06:30)
[2020-05-14] MEDS: BACLOFEN 20 MG TABLET GT SCH ×3 (06:30→22:26)
[2020-05-14] MEDS: MULTIVIT, IRON, MIN NO. 8, FA TABLET GT SCH (06:30)
[2020-05-14 07:45] VITALS: BP 119/75
[2020-05-14] MEDS: HYDROGEN PEROXIDE 3% 118 ML BOTTLE TP SCH ×2 (08:15→21:24)
[2020-05-14] MEDS: POTASSIUM CHLORIDE 40 MEQ/30 ML LIQUID UDC GT SCH (08:28)
[2020-05-14] MEDS: MIRALAX 17 GM POWD.PACK GT SCH (08:28)
[2020-05-14] MEDS: COAL TAR TOP SCH (08:28)
[2020-05-14] MEDS: DOCUSATE SODIUM 100 MG/10 ML LIQUID UDC GT SCH (08:28)
[2020-05-14] MEDS: COD LIVER OIL/ZINC OXIDE OINT 113 GM TUBE TP SCH ×2 (08:28→20:41)
[2020-05-14] MEDS: levETIRAcetam 500 MG/5 ML LIQUID UDC GT SCH ×2 (08:28→20:42)
[2020-05-14] MEDS: ACIDOPHILUS/BULGARICUS CHEW TAB GT SCH ×2 (08:28→20:42)
--- NOTE | 2020-05-14 16:28 | NUR ---
INTERDISCIPLINARY PLAN OF CARE CONFERENCE was held today. Patient's sister Jeanne participated in the meeting through speaker phone. Dr. Cartagena and the Interdisciplinary Team reviewed the current plan of care in detail. RN reported on patient's medical condition. See RN IDT conference notes. No major changes in medical condition were reported by nursing or by the other disciplines. Dietary, pharmacy, and RT all reported patient being stable. PT reported on patient's treatment plan. See all disciplines IDT notes and physician's progress notes for additional details. Jeanne's questions were addressed by the IDT team, and Jeanne expressed not having any concerns at this time and being content with the current plan of care.
--- NOTE | 2020-05-14 18:28 | NUR ---
Video call provided with the family (sister)
[2020-05-14 20:33] VITALS: BP 127/61
[2020-05-14] MEDS: RIVAROXABAN 15 MG TABLET GT SCH (20:40)
[2020-05-14] MEDS: MELATONIN 3 MG TABLET GT SCH (20:43)
[2020-05-14] MEDS: NUTRISOURCE FIBER 4 GM PACKET GT SCH (20:44)
[2020-05-14] MEDS: ASCORBIC ACID 500 MG TABLET GT SCH (20:44)
[2020-05-14] MEDS: MAGNESIUM COMPLEX GT SCH (20:44)
[2020-05-14] MEDS: PROTEIN SUPPLEMENT (PROSTAT) 30 ML LIQUID GT SCH (20:44)
[2020-05-14] MEDS: CRANBERRY 500 MG GT SCH (20:44)
[2020-05-15] MEDS: METOCLOPRAMIDE HCL 10 MG/10 ML UDC GT SCH ×4 (00:56→17:21)
[2020-05-15] MEDS: OMEPRAZOLE 20 MG CAPSULE.DR GT SCH (05:37)
[2020-05-15] MEDS: BACLOFEN 20 MG TABLET GT SCH ×3 (05:37→21:12)
[2020-05-15] MEDS: MULTIVIT, IRON, MIN NO. 8, FA TABLET GT SCH (05:37)
[2020-05-15] MEDS: HYDROGEN PEROXIDE 3% 118 ML BOTTLE TP SCH ×2 (07:26→21:19)
[2020-05-15 07:52] VITALS: BP 107/69
[2020-05-15] MEDS: ACIDOPHILUS/BULGARICUS CHEW TAB GT SCH ×2 (09:04→21:06)
[2020-05-15] MEDS: DOCUSATE SODIUM 100 MG/10 ML LIQUID UDC GT SCH (09:04)
[2020-05-15] MEDS: levETIRAcetam 500 MG/5 ML LIQUID UDC GT SCH ×2 (09:05→21:07)
[2020-05-15] MEDS: MIRALAX 17 GM POWD.PACK GT SCH (09:06)
[2020-05-15] MEDS: POTASSIUM CHLORIDE 40 MEQ/30 ML LIQUID UDC GT SCH (09:07)
[2020-05-15] MEDS: COD LIVER OIL/ZINC OXIDE OINT 113 GM TUBE TP SCH ×2 (09:07→21:11)
--- NOTE | 2020-05-15 14:20 | NUR ---
Order for a splints submitted to [employer] fax [phone]
[2020-05-15 20:15] VITALS: BP 104/65
--- NOTE | 2020-05-15 20:20 | NUR ---
Osbaldo from lab called re: COVID-19 test result which he said is negative.
[2020-05-15] MEDS: RIVAROXABAN 15 MG TABLET GT SCH (21:08)
[2020-05-15] MEDS: MELATONIN 3 MG TABLET GT SCH (21:09)
[2020-05-15] MEDS: MAGNESIUM COMPLEX GT SCH (21:11)
[2020-05-15] MEDS: CRANBERRY 500 MG GT SCH (21:11)
[2020-05-15] MEDS: NUTRISOURCE FIBER 4 GM PACKET GT SCH (21:11)
[2020-05-15] MEDS: PROTEIN SUPPLEMENT (PROSTAT) 30 ML LIQUID GT SCH (21:11)
[2020-05-15] MEDS: ASCORBIC ACID 500 MG TABLET GT SCH (21:11)
[2020-05-16] MEDS: METOCLOPRAMIDE HCL 10 MG/10 ML UDC GT SCH ×5 (00:26→23:58)
[2020-05-16] MEDS: OMEPRAZOLE 20 MG CAPSULE.DR GT SCH (05:45)
[2020-05-16] MEDS: MULTIVIT, IRON, MIN NO. 8, FA TABLET GT SCH (05:45)
[2020-05-16] MEDS: BACLOFEN 20 MG TABLET GT SCH ×3 (05:45→21:48)
[2020-05-16 07:29] VITALS: BP 118/75
[2020-05-16] MEDS: ACIDOPHILUS/BULGARICUS CHEW TAB GT SCH ×2 (09:34→20:52)
[2020-05-16] MEDS: DOCUSATE SODIUM 100 MG/10 ML LIQUID UDC GT SCH (09:34)
[2020-05-16] MEDS: levETIRAcetam 500 MG/5 ML LIQUID UDC GT SCH ×2 (09:35→20:52)
[2020-05-16] MEDS: POTASSIUM CHLORIDE 40 MEQ/30 ML LIQUID UDC GT SCH (09:40)
[2020-05-16] MEDS: MIRALAX 17 GM POWD.PACK GT SCH (09:40)
[2020-05-16] MEDS: COD LIVER OIL/ZINC OXIDE OINT 113 GM TUBE TP SCH ×2 (09:41→20:53)
[2020-05-16] MEDS: HYDROGEN PEROXIDE 3% 118 ML BOTTLE TP SCH ×2 (09:59→18:56)
[2020-05-16 20:40] VITALS: BP 111/66
[2020-05-16] MEDS: MELATONIN 3 MG TABLET GT SCH (20:52)
[2020-05-16] MEDS: ASCORBIC ACID 500 MG TABLET GT SCH (20:53)
[2020-05-16] MEDS: MAGNESIUM COMPLEX GT SCH (20:53)
[2020-05-16] MEDS: PROTEIN SUPPLEMENT (PROSTAT) 30 ML LIQUID GT SCH (20:53)
[2020-05-16] MEDS: NUTRISOURCE FIBER 4 GM PACKET GT SCH (20:53)
[2020-05-16] MEDS: CRANBERRY 500 MG GT SCH (20:53)
--- NOTE | 2020-05-16 21:30 | NUR ---
CALLED [employer], [place] ON [phone] AND INFORMED HER OF POSSIBLE COVID-19 EXPOSURE ON THE SUBACUTE UNIT AND THE FOLLOW UP TESTING PLAN FOR THE NEXT 14 DAYS, MANDATED BY [facility] REGULATIONS. ALSO NOTIFIED FRENCH THAT NURSING WILL CALL HER WITH THE RESULT IT BECOMES AVAILABLE. FRENCH EXPRESSED UNDERSTANDING.
[2020-05-16] MEDS: RIVAROXABAN 15 MG TABLET GT SCH (21:48)
--- NOTE | 2020-05-17 01:26 | NUR ---
Patient is afebrile, No respiratory distress noted, 02 sat is 99%, will continue monitor.
[2020-05-17] MEDS: OMEPRAZOLE 20 MG CAPSULE.DR GT SCH (06:15)
[2020-05-17] MEDS: MULTIVIT, IRON, MIN NO. 8, FA TABLET GT SCH (06:15)
[2020-05-17] MEDS: BACLOFEN 20 MG TABLET GT SCH ×3 (06:15→21:50)
[2020-05-17] MEDS: METOCLOPRAMIDE HCL 10 MG/10 ML UDC GT SCH ×4 (06:15→23:02)
[2020-05-17 07:41] VITALS: BP 113/69
[2020-05-17] MEDS: DOCUSATE SODIUM 100 MG/10 ML LIQUID UDC GT SCH (08:56)
[2020-05-17] MEDS: levETIRAcetam 500 MG/5 ML LIQUID UDC GT SCH ×2 (08:57→21:49)
[2020-05-17] MEDS: ACIDOPHILUS/BULGARICUS CHEW TAB GT SCH ×2 (08:57→21:48)
[2020-05-17] MEDS: POTASSIUM CHLORIDE 40 MEQ/30 ML LIQUID UDC GT SCH (08:57)
[2020-05-17] MEDS: MIRALAX 17 GM POWD.PACK GT SCH (08:57)
[2020-05-17] MEDS: COAL TAR TOP SCH (08:58)
[2020-05-17] MEDS: COD LIVER OIL/ZINC OXIDE OINT 113 GM TUBE TP SCH ×2 (08:58→21:50)
[2020-05-17] MEDS: HYDROGEN PEROXIDE 3% 118 ML BOTTLE TP SCH ×2 (10:10→21:08)
[2020-05-17] MEDS: MAGNESIUM COMPLEX GT SCH (21:49)
[2020-05-17] MEDS: NUTRISOURCE FIBER 4 GM PACKET GT SCH (21:49)
[2020-05-17] MEDS: CRANBERRY 500 MG GT SCH (21:49)
[2020-05-17] MEDS: MELATONIN 3 MG TABLET GT SCH (21:49)
[2020-05-17] MEDS: ASCORBIC ACID 500 MG TABLET GT SCH (21:49)
[2020-05-17] MEDS: PROTEIN SUPPLEMENT (PROSTAT) 30 ML LIQUID GT SCH (21:49)
[2020-05-17] MEDS: RIVAROXABAN 15 MG TABLET GT SCH (21:51)
[2020-05-18] MEDS: OMEPRAZOLE 20 MG CAPSULE.DR GT SCH (05:19)
[2020-05-18] MEDS: METOCLOPRAMIDE HCL 10 MG/10 ML UDC GT SCH ×3 (05:19→17:03)
[2020-05-18] MEDS: MULTIVIT, IRON, MIN NO. 8, FA TABLET GT SCH (05:19)
[2020-05-18] MEDS: BACLOFEN 20 MG TABLET GT SCH ×3 (05:19→22:14)
[2020-05-18 07:46] VITALS: BP 100/63
[2020-05-18] MEDS: DOCUSATE SODIUM 100 MG/10 ML LIQUID UDC GT SCH (08:13)
[2020-05-18] MEDS: levETIRAcetam 500 MG/5 ML LIQUID UDC GT SCH ×2 (08:14→21:14)
[2020-05-18] MEDS: ACIDOPHILUS/BULGARICUS CHEW TAB GT SCH ×2 (08:14→21:14)
[2020-05-18] MEDS: MIRALAX 17 GM POWD.PACK GT SCH (08:15)
[2020-05-18] MEDS: POTASSIUM CHLORIDE 40 MEQ/30 ML LIQUID UDC GT SCH (08:15)
[2020-05-18] MEDS: COD LIVER OIL/ZINC OXIDE OINT 113 GM TUBE TP SCH ×2 (08:16→21:17)
[2020-05-18] MEDS: HYDROGEN PEROXIDE 3% 118 ML BOTTLE TP SCH ×2 (09:06→21:28)
[2020-05-18 20:54] VITALS: BP 116/68
[2020-05-18] MEDS: CRANBERRY 500 MG GT SCH (21:15)
[2020-05-18] MEDS: MELATONIN 3 MG TABLET GT SCH (21:15)
[2020-05-18] MEDS: MAGNESIUM COMPLEX GT SCH (21:16)
[2020-05-18] MEDS: NUTRISOURCE FIBER 4 GM PACKET GT SCH (21:16)
[2020-05-18] MEDS: RIVAROXABAN 15 MG TABLET GT SCH (21:17)
[2020-05-18] MEDS: ASCORBIC ACID 500 MG TABLET GT SCH (21:17)
[2020-05-18] MEDS: PROTEIN SUPPLEMENT (PROSTAT) 30 ML LIQUID GT SCH (21:17)
[2020-05-19] MEDS: METOCLOPRAMIDE HCL 10 MG/10 ML UDC GT SCH ×4 (00:46→17:15)
[2020-05-19] MEDS: TWOCAL HN 1,000 ML LIQUID GT PRN (03:45)
[2020-05-19] MEDS: MULTIVIT, IRON, MIN NO. 8, FA TABLET GT SCH (05:16)
[2020-05-19] MEDS: BACLOFEN 20 MG TABLET GT SCH ×3 (05:16→21:53)
[2020-05-19] MEDS: OMEPRAZOLE 20 MG CAPSULE.DR GT SCH (05:16)
[2020-05-19 07:42] VITALS: BP 106/70
[2020-05-19] MEDS: ACIDOPHILUS/BULGARICUS CHEW TAB GT SCH ×2 (08:21→21:53)
[2020-05-19] MEDS: DOCUSATE SODIUM 100 MG/10 ML LIQUID UDC GT SCH (08:21)
[2020-05-19] MEDS: levETIRAcetam 500 MG/5 ML LIQUID UDC GT SCH ×2 (08:22→21:53)
[2020-05-19] MEDS: POTASSIUM CHLORIDE 40 MEQ/30 ML LIQUID UDC GT SCH (08:23)
[2020-05-19] MEDS: MIRALAX 17 GM POWD.PACK GT SCH (08:23)
[2020-05-19] MEDS: COD LIVER OIL/ZINC OXIDE OINT 113 GM TUBE TP SCH ×2 (08:24→21:53)
[2020-05-19] MEDS: HYDROGEN PEROXIDE 3% 118 ML BOTTLE TP SCH ×2 (09:00→21:00)
--- NOTE | 2020-05-19 12:34 | NUR ---
ZOOM PROVIDED TO FATHER.
[2020-05-19 20:45] VITALS: BP 124/62
[2020-05-19] MEDS: RIVAROXABAN 15 MG TABLET GT SCH (21:00)
[2020-05-19] MEDS: PROTEIN SUPPLEMENT (PROSTAT) 30 ML LIQUID GT SCH (21:53)
[2020-05-19] MEDS: CRANBERRY 500 MG GT SCH (21:53)
[2020-05-19] MEDS: MAGNESIUM COMPLEX GT SCH (21:53)
[2020-05-19] MEDS: ASCORBIC ACID 500 MG TABLET GT SCH (21:53)
[2020-05-19] MEDS: NUTRISOURCE FIBER 4 GM PACKET GT SCH (21:53)
[2020-05-19] MEDS: MELATONIN 3 MG TABLET GT SCH (21:53)
[2020-05-20] MEDS: BACLOFEN 20 MG TABLET GT SCH ×3 (06:01→21:52)
[2020-05-20] MEDS: OMEPRAZOLE 20 MG CAPSULE.DR GT SCH (06:01)
[2020-05-20] MEDS: MULTIVIT, IRON, MIN NO. 8, FA TABLET GT SCH (06:01)
[2020-05-20] MEDS: METOCLOPRAMIDE HCL 10 MG/10 ML UDC GT SCH ×4 (06:01→17:17)
[2020-05-20 08:00] VITALS: BP 90/50
[2020-05-20] MEDS: DOCUSATE SODIUM 100 MG/10 ML LIQUID UDC GT SCH (08:12)
[2020-05-20] MEDS: MIRALAX 17 GM POWD.PACK GT SCH (08:12)
[2020-05-20] MEDS: POTASSIUM CHLORIDE 40 MEQ/30 ML LIQUID UDC GT SCH (08:12)
[2020-05-20] MEDS: levETIRAcetam 500 MG/5 ML LIQUID UDC GT SCH ×2 (08:12→21:51)
[2020-05-20] MEDS: ACIDOPHILUS/BULGARICUS CHEW TAB GT SCH ×2 (08:12→21:51)
[2020-05-20] MEDS: COD LIVER OIL/ZINC OXIDE OINT 113 GM TUBE TP SCH ×2 (08:13→21:52)
[2020-05-20] MEDS: HYDROGEN PEROXIDE 3% 118 ML BOTTLE TP SCH ×2 (09:17→18:50)
[2020-05-20 20:15] VITALS: BP 114/63
[2020-05-20] MEDS: RIVAROXABAN 15 MG TABLET GT SCH (21:27)
[2020-05-20] MEDS: ASCORBIC ACID 500 MG TABLET GT SCH (21:51)
[2020-05-20] MEDS: CRANBERRY 500 MG GT SCH (21:51)
[2020-05-20] MEDS: NUTRISOURCE FIBER 4 GM PACKET GT SCH (21:51)
[2020-05-20] MEDS: MELATONIN 3 MG TABLET GT SCH (21:51)
[2020-05-20] MEDS: PROTEIN SUPPLEMENT (PROSTAT) 30 ML LIQUID GT SCH (21:51)
[2020-05-20] MEDS: MAGNESIUM COMPLEX GT SCH (21:51)
[2020-05-21] MEDS: OMEPRAZOLE 20 MG CAPSULE.DR GT SCH (06:19)
[2020-05-21] MEDS: BACLOFEN 20 MG TABLET GT SCH ×3 (06:19→21:02)
[2020-05-21] MEDS: METOCLOPRAMIDE HCL 10 MG/10 ML UDC GT SCH ×4 (06:19→17:02)
[2020-05-21] MEDS: MULTIVIT, IRON, MIN NO. 8, FA TABLET GT SCH (06:20)
[2020-05-21] MEDS: TWOCAL HN 1,000 ML LIQUID GT PRN (07:12)
[2020-05-21 07:25] VITALS: BP 91/41
[2020-05-21] MEDS: HYDROGEN PEROXIDE 3% 118 ML BOTTLE TP SCH ×2 (08:05→21:15)
[2020-05-21] MEDS: DOCUSATE SODIUM 100 MG/10 ML LIQUID UDC GT SCH (08:56)
[2020-05-21] MEDS: levETIRAcetam 500 MG/5 ML LIQUID UDC GT SCH ×2 (08:56→20:55)
[2020-05-21] MEDS: ACIDOPHILUS/BULGARICUS CHEW TAB GT SCH ×2 (08:56→20:55)
[2020-05-21] MEDS: MIRALAX 17 GM POWD.PACK GT SCH (08:57)
[2020-05-21] MEDS: POTASSIUM CHLORIDE 40 MEQ/30 ML LIQUID UDC GT SCH (08:59)
[2020-05-21] MEDS: COD LIVER OIL/ZINC OXIDE OINT 113 GM TUBE TP SCH ×2 (08:59→20:59)
[2020-05-21] MEDS: COAL TAR TOP SCH (08:59)
[2020-05-21 09:48] LABS: BASOPHILS # (AUTO) 0.1 K/uL (0.0-8.0); BASOPHILS % (AUTO) 0.7 % (0.0-2.0); EOSINOPHILS # (AUTO) 0.3 K/uL (0.0-0.7); EOSINOPHILS % (AUTO) 2.8 % (0.0-7.0); HEMATOCRIT 42.8 % (31.2-41.9); HEMOGLOBIN 14.2 g/dL (10.9-14.3); LYMPHOCYTES # (AUTO) 2.3 K/uL (20.0-40.0); LYMPHOCYTES % (AUTO) 22.9 % (20.5-51.5); MEAN CORPUSCULAR HEMOGLOBIN 29.9 uug (24.7-32.8); MEAN CORPUSCULAR HGB CONC 33 g/dL (32.3-35.6); MEAN CORPUSCULAR VOLUME 89.7 fL (75.5-95.3); MONOCYTES # (AUTO) 0.6 K/uL (2.0-10.0); MONOCYTES % (AUTO) 6.1 % (0.0-11.0); NEUTROPHILS # (AUTO) 6.7 K/uL (1.8-8.9); NEUTROPHILS % (AUTO) 67.5 % (38.5-71.5); PLATELET COUNT (AUTO) 250 K/uL (179-408); RED BLOOD CELL COUNT(AUTO) 4.77 MIL/uL (3.63-4.92); WHITE BLOOD COUNT (AUTO) 9.9 K/uL (3.8-11.8)
[2020-05-21 10:02] LABS: BILIRUBIN,TOTAL 0.3 mg/dL (0.2-1.0); CREATININE 0.7 mg/dL (0.6-1.3); POTASSIUM 3.9 mmol/L (3.5-5.1); TOTAL PROTEIN, SERUM 7.8 g/dL (6.4-8.2)
[2020-05-21 20:00] VITALS: BP 119/72
[2020-05-21] MEDS: CRANBERRY 500 MG GT SCH (20:56)
[2020-05-21] MEDS: MELATONIN 3 MG TABLET GT SCH (20:56)
[2020-05-21] MEDS: MAGNESIUM COMPLEX GT SCH (20:56)
[2020-05-21] MEDS: PROTEIN SUPPLEMENT (PROSTAT) 30 ML LIQUID GT SCH (20:57)
[2020-05-21] MEDS: NUTRISOURCE FIBER 4 GM PACKET GT SCH (20:57)
[2020-05-21] MEDS: ASCORBIC ACID 500 MG TABLET GT SCH (20:57)
[2020-05-21] MEDS: RIVAROXABAN 15 MG TABLET GT SCH (20:58)
--- NOTE | 2020-05-21 21:02 | NUR ---
klarissa,mother notified covid 19 test is negative.
[2020-05-22] MEDS: METOCLOPRAMIDE HCL 10 MG/10 ML UDC GT SCH ×4 (00:27→17:14)
[2020-05-22] MEDS: MULTIVIT, IRON, MIN NO. 8, FA TABLET GT SCH (05:50)
[2020-05-22] MEDS: BACLOFEN 20 MG TABLET GT SCH ×3 (05:50→21:14)
[2020-05-22] MEDS: OMEPRAZOLE 20 MG CAPSULE.DR GT SCH (05:50)
[2020-05-22] MEDS: HYDROGEN PEROXIDE 3% 118 ML BOTTLE TP SCH ×2 (07:20→21:34)
[2020-05-22 07:44] VITALS: BP 98/41
[2020-05-22] MEDS: MIRALAX 17 GM POWD.PACK GT SCH (08:55)
[2020-05-22] MEDS: ACIDOPHILUS/BULGARICUS CHEW TAB GT SCH ×2 (08:55→21:10)
[2020-05-22] MEDS: DOCUSATE SODIUM 100 MG/10 ML LIQUID UDC GT SCH (08:55)
[2020-05-22] MEDS: POTASSIUM CHLORIDE 40 MEQ/30 ML LIQUID UDC GT SCH (08:55)
[2020-05-22] MEDS: levETIRAcetam 500 MG/5 ML LIQUID UDC GT SCH ×2 (08:55→21:10)
[2020-05-22] MEDS: COD LIVER OIL/ZINC OXIDE OINT 113 GM TUBE TP SCH ×2 (08:56→21:14)
--- NOTE | 2020-05-22 11:15 | NUR ---
Provided video chat to pt. and her father with no problem noted, kept pt. clean and comfortable, all needs attended.
--- NOTE | 2020-05-22 13:01 | NUR ---
ISAÍAS called patient's father Abdi [phone] to check in. Abdi stated he was doing well, and that he did not have concerns at this time. Abdi then stated that he had received a voting ballot for the patient, and asked this SW if he could drop if off at the hospital for the patient. 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 Abdi expressed understanding and thanked this SW for her time.
[2020-05-22 20:00] VITALS: BP 116/62
--- NOTE | 2020-05-22 21:02 | NUR ---
Received pt on cool aerosol with FIO2-28% via trach mask. No s/s of respiratory distress noted. Airway care and trach care done, pt responded to physical stimuli. No indication for PRN HHN tx at this time. Resus. bag and back up trach at bedside. Cont. monitor.
[2020-05-22] MEDS: MELATONIN 3 MG TABLET GT SCH (21:12)
[2020-05-22] MEDS: CRANBERRY 500 MG GT SCH (21:12)
[2020-05-22] MEDS: ASCORBIC ACID 500 MG TABLET GT SCH (21:12)
[2020-05-22] MEDS: NUTRISOURCE FIBER 4 GM PACKET GT SCH (21:12)
[2020-05-22] MEDS: MAGNESIUM COMPLEX GT SCH (21:12)
[2020-05-22] MEDS: PROTEIN SUPPLEMENT (PROSTAT) 30 ML LIQUID GT SCH (21:12)
[2020-05-22] MEDS: RIVAROXABAN 15 MG TABLET GT SCH (21:14)
[2020-05-23] MEDS: METOCLOPRAMIDE HCL 10 MG/10 ML UDC GT SCH ×4 (00:22→17:26)
[2020-05-23] MEDS: TWOCAL HN 1,000 ML LIQUID GT PRN (03:00)
[2020-05-23] MEDS: OMEPRAZOLE 20 MG CAPSULE.DR GT SCH (05:32)
[2020-05-23] MEDS: MULTIVIT, IRON, MIN NO. 8, FA TABLET GT SCH (05:32)
[2020-05-23] MEDS: BACLOFEN 20 MG TABLET GT SCH ×3 (05:32→21:05)
[2020-05-23 07:30] VITALS: BP 121/69
[2020-05-23] MEDS: DOCUSATE SODIUM 100 MG/10 ML LIQUID UDC GT SCH (09:15)
[2020-05-23] MEDS: COD LIVER OIL/ZINC OXIDE OINT 113 GM TUBE TP SCH ×2 (09:15→20:50)
[2020-05-23] MEDS: MIRALAX 17 GM POWD.PACK GT SCH (09:15)
[2020-05-23] MEDS: POTASSIUM CHLORIDE 40 MEQ/30 ML LIQUID UDC GT SCH (09:15)
[2020-05-23] MEDS: ACIDOPHILUS/BULGARICUS CHEW TAB GT SCH ×2 (09:15→20:44)
[2020-05-23] MEDS: levETIRAcetam 500 MG/5 ML LIQUID UDC GT SCH ×2 (09:15→20:44)
[2020-05-23] MEDS: HYDROGEN PEROXIDE 3% 118 ML BOTTLE TP SCH ×2 (09:52→21:29)
--- NOTE | 2020-05-23 11:45 | NUR ---
Provided video chat to pt. and her mother with no problem noted, kept pt. clean and comfortable, all needs attended.
[2020-05-23 20:00] VITALS: BP 102/69
[2020-05-23] MEDS: MAGNESIUM COMPLEX GT SCH (20:45)
[2020-05-23] MEDS: MELATONIN 3 MG TABLET GT SCH (20:45)
[2020-05-23] MEDS: CRANBERRY 500 MG GT SCH (20:45)
[2020-05-23] MEDS: ASCORBIC ACID 500 MG TABLET GT SCH (20:48)
[2020-05-23] MEDS: PROTEIN SUPPLEMENT (PROSTAT) 30 ML LIQUID GT SCH (20:48)
[2020-05-23] MEDS: NUTRISOURCE FIBER 4 GM PACKET GT SCH (20:48)
[2020-05-23] MEDS: RIVAROXABAN 15 MG TABLET GT SCH (21:05)
[2020-05-24] MEDS: METOCLOPRAMIDE HCL 10 MG/10 ML UDC GT SCH ×4 (00:33→17:50)
[2020-05-24] MEDS: MULTIVIT, IRON, MIN NO. 8, FA TABLET GT SCH (05:43)
[2020-05-24] MEDS: OMEPRAZOLE 20 MG CAPSULE.DR GT SCH (05:43)
[2020-05-24] MEDS: BACLOFEN 20 MG TABLET GT SCH ×3 (05:43→21:06)
[2020-05-24 07:47] VITALS: BP 121/64
[2020-05-24] MEDS: HYDROGEN PEROXIDE 3% 118 ML BOTTLE TP SCH ×2 (09:00→21:00)
[2020-05-24] MEDS: DOCUSATE SODIUM 100 MG/10 ML LIQUID UDC GT SCH (09:10)
[2020-05-24] MEDS: ACIDOPHILUS/BULGARICUS CHEW TAB GT SCH ×2 (09:13→20:46)
[2020-05-24] MEDS: POTASSIUM CHLORIDE 40 MEQ/30 ML LIQUID UDC GT SCH (09:14)
[2020-05-24] MEDS: levETIRAcetam 500 MG/5 ML LIQUID UDC GT SCH ×2 (09:14→20:46)
[2020-05-24] MEDS: MIRALAX 17 GM POWD.PACK GT SCH (09:14)
[2020-05-24] MEDS: COAL TAR TOP SCH (09:15)
[2020-05-24] MEDS: COD LIVER OIL/ZINC OXIDE OINT 113 GM TUBE TP SCH ×2 (09:15→20:46)
[2020-05-24 20:00] VITALS: BP 114/61
[2020-05-24] MEDS: PROTEIN SUPPLEMENT (PROSTAT) 30 ML LIQUID GT SCH (20:46)
[2020-05-24] MEDS: NUTRISOURCE FIBER 4 GM PACKET GT SCH (20:46)
[2020-05-24] MEDS: MAGNESIUM COMPLEX GT SCH (20:46)
[2020-05-24] MEDS: CRANBERRY 500 MG GT SCH (20:46)
[2020-05-24] MEDS: MELATONIN 3 MG TABLET GT SCH (20:46)
[2020-05-24] MEDS: ASCORBIC ACID 500 MG TABLET GT SCH (20:46)
[2020-05-24] MEDS: RIVAROXABAN 15 MG TABLET GT SCH (20:53)
[2020-05-25] MEDS: METOCLOPRAMIDE HCL 10 MG/10 ML UDC GT SCH ×5 (00:33→23:23)
[2020-05-25] MEDS: TWOCAL HN 1,000 ML LIQUID GT PRN (04:48)
[2020-05-25] MEDS: OMEPRAZOLE 20 MG CAPSULE.DR GT SCH (05:07)
[2020-05-25] MEDS: MULTIVIT, IRON, MIN NO. 8, FA TABLET GT SCH (05:07)
[2020-05-25] MEDS: BACLOFEN 20 MG TABLET GT SCH ×3 (05:07→21:21)
[2020-05-25 07:39] VITALS: BP 114/69
[2020-05-25] MEDS: MIRALAX 17 GM POWD.PACK GT SCH (09:17)
[2020-05-25] MEDS: levETIRAcetam 500 MG/5 ML LIQUID UDC GT SCH ×2 (09:17→20:56)
[2020-05-25] MEDS: ACIDOPHILUS/BULGARICUS CHEW TAB GT SCH ×2 (09:17→20:56)
[2020-05-25] MEDS: DOCUSATE SODIUM 100 MG/10 ML LIQUID UDC GT SCH (09:17)
[2020-05-25] MEDS: COD LIVER OIL/ZINC OXIDE OINT 113 GM TUBE TP SCH ×2 (09:19→20:57)
[2020-05-25] MEDS: POTASSIUM CHLORIDE 40 MEQ/30 ML LIQUID UDC GT SCH (09:19)
[2020-05-25] MEDS: HYDROGEN PEROXIDE 3% 118 ML BOTTLE TP SCH ×2 (10:00→21:50)
[2020-05-25] MEDS: NUTRISOURCE FIBER 4 GM PACKET GT SCH (20:56)
[2020-05-25] MEDS: CRANBERRY 500 MG GT SCH (20:56)
[2020-05-25] MEDS: MAGNESIUM COMPLEX GT SCH (20:56)
[2020-05-25] MEDS: MELATONIN 3 MG TABLET GT SCH (20:56)
[2020-05-25] MEDS: PROTEIN SUPPLEMENT (PROSTAT) 30 ML LIQUID GT SCH (20:56)
[2020-05-25] MEDS: ASCORBIC ACID 500 MG TABLET GT SCH (20:56)
[2020-05-25] MEDS: RIVAROXABAN 15 MG TABLET GT SCH (20:57)
[2020-05-25 23:07] VITALS: BP 100/61
[2020-05-26] MEDS: MULTIVIT, IRON, MIN NO. 8, FA TABLET GT SCH (05:28)
[2020-05-26] MEDS: BACLOFEN 20 MG TABLET GT SCH ×3 (05:28→21:17)
[2020-05-26] MEDS: OMEPRAZOLE 20 MG CAPSULE.DR GT SCH (05:28)
[2020-05-26] MEDS: METOCLOPRAMIDE HCL 10 MG/10 ML UDC GT SCH ×4 (05:28→23:22)
[2020-05-26 07:32] VITALS: BP 122/79
[2020-05-26] MEDS: levETIRAcetam 500 MG/5 ML LIQUID UDC GT SCH ×2 (08:24→20:54)
[2020-05-26] MEDS: POTASSIUM CHLORIDE 40 MEQ/30 ML LIQUID UDC GT SCH (08:24)
[2020-05-26] MEDS: ACIDOPHILUS/BULGARICUS CHEW TAB GT SCH ×2 (08:24→20:54)
[2020-05-26] MEDS: DOCUSATE SODIUM 100 MG/10 ML LIQUID UDC GT SCH (08:24)
[2020-05-26] MEDS: COD LIVER OIL/ZINC OXIDE OINT 113 GM TUBE TP SCH ×2 (08:24→20:54)
[2020-05-26] MEDS: MIRALAX 17 GM POWD.PACK GT SCH (08:24)
[2020-05-26] MEDS: HYDROGEN PEROXIDE 3% 118 ML BOTTLE TP SCH ×2 (08:28→21:22)
--- NOTE | 2020-05-26 12:53 | NUR ---
video chat provided with the pt. and family. No concern at this time. Will continue to monitor.
[2020-05-26] MEDS: MAGNESIUM COMPLEX GT SCH (20:54)
[2020-05-26] MEDS: MELATONIN 3 MG TABLET GT SCH (20:54)
[2020-05-26] MEDS: NUTRISOURCE FIBER 4 GM PACKET GT SCH (20:54)
[2020-05-26] MEDS: ASCORBIC ACID 500 MG TABLET GT SCH (20:54)
[2020-05-26] MEDS: PROTEIN SUPPLEMENT (PROSTAT) 30 ML LIQUID GT SCH (20:54)
[2020-05-26] MEDS: CRANBERRY 500 MG GT SCH (20:54)
[2020-05-26] MEDS: RIVAROXABAN 15 MG TABLET GT SCH (21:17)
[2020-05-26 22:57] VITALS: BP 110/67
[2020-05-27] MEDS: METOCLOPRAMIDE HCL 10 MG/10 ML UDC GT SCH ×3 (05:22→17:44)
[2020-05-27] MEDS: OMEPRAZOLE 20 MG CAPSULE.DR GT SCH (05:22)
[2020-05-27] MEDS: MULTIVIT, IRON, MIN NO. 8, FA TABLET GT SCH (05:22)
[2020-05-27] MEDS: BACLOFEN 20 MG TABLET GT SCH ×3 (05:22→21:24)
[2020-05-27] MEDS: TWOCAL HN 1,000 ML LIQUID GT PRN (06:02)
[2020-05-27] MEDS: BISACODYL 10 MG SUPP.RECT RC PRN (06:37)
[2020-05-27 07:30] VITALS: BP 103/69
[2020-05-27] MEDS: POTASSIUM CHLORIDE 40 MEQ/30 ML LIQUID UDC GT SCH (08:19)
[2020-05-27] MEDS: levETIRAcetam 500 MG/5 ML LIQUID UDC GT SCH ×2 (08:19→20:25)
[2020-05-27] MEDS: DOCUSATE SODIUM 100 MG/10 ML LIQUID UDC GT SCH (08:19)
[2020-05-27] MEDS: COD LIVER OIL/ZINC OXIDE OINT 113 GM TUBE TP SCH ×2 (08:19→20:30)
[2020-05-27] MEDS: ACIDOPHILUS/BULGARICUS CHEW TAB GT SCH ×2 (08:19→20:25)
[2020-05-27] MEDS: MIRALAX 17 GM POWD.PACK GT SCH (08:19)
[2020-05-27] MEDS: HYDROGEN PEROXIDE 3% 118 ML BOTTLE TP SCH ×2 (10:10→21:32)
--- NOTE | 2020-05-27 18:00 | NUR ---
Video chat provided with the pt. and family. No concerns at this time. Will continue to monitor.
--- NOTE | 2020-05-27 18:47 | NUR ---
NEW ORDER WAS CARRIED OUT FROM DR. COURTNEY FOR COVID 19 TEST [facility] REQUIREMENT.PT'S FATHER AWARE AND IN AGREEMENT.
[2020-05-27] MEDS: CRANBERRY 500 MG GT SCH (20:25)
[2020-05-27] MEDS: MAGNESIUM COMPLEX GT SCH (20:25)
[2020-05-27] MEDS: NUTRISOURCE FIBER 4 GM PACKET GT SCH (20:25)
[2020-05-27] MEDS: PROTEIN SUPPLEMENT (PROSTAT) 30 ML LIQUID GT SCH (20:25)
[2020-05-27] MEDS: MELATONIN 3 MG TABLET GT SCH (20:25)
[2020-05-27] MEDS: ASCORBIC ACID 500 MG TABLET GT SCH (20:26)
[2020-05-27 20:48] VITALS: BP 105/62
[2020-05-27] MEDS: RIVAROXABAN 15 MG TABLET GT SCH (21:00)
[2020-05-28] MEDS: METOCLOPRAMIDE HCL 10 MG/10 ML UDC GT SCH ×4 (00:02→17:05)
[2020-05-28] MEDS: BACLOFEN 20 MG TABLET GT SCH ×3 (05:12→22:18)
[2020-05-28] MEDS: OMEPRAZOLE 20 MG CAPSULE.DR GT SCH (05:12)
[2020-05-28] MEDS: MULTIVIT, IRON, MIN NO. 8, FA TABLET GT SCH (05:13)
[2020-05-28 07:33] VITALS: BP 108/60
[2020-05-28] MEDS: HYDROGEN PEROXIDE 3% 118 ML BOTTLE TP SCH ×2 (07:42→21:43)
[2020-05-28] MEDS: levETIRAcetam 500 MG/5 ML LIQUID UDC GT SCH ×2 (09:31→20:35)
[2020-05-28] MEDS: POTASSIUM CHLORIDE 40 MEQ/30 ML LIQUID UDC GT SCH (09:31)
[2020-05-28] MEDS: COAL TAR TOP SCH (09:31)
[2020-05-28] MEDS: COD LIVER OIL/ZINC OXIDE OINT 113 GM TUBE TP SCH ×2 (09:31→20:38)
[2020-05-28] MEDS: ACIDOPHILUS/BULGARICUS CHEW TAB GT SCH ×2 (09:31→20:35)
[2020-05-28] MEDS: DOCUSATE SODIUM 100 MG/10 ML LIQUID UDC GT SCH (09:31)
[2020-05-28] MEDS: MIRALAX 17 GM POWD.PACK GT SCH (09:31)
--- NOTE | 2020-05-28 17:36 | NUR ---
Video call provided with the pt. and family (sister). Verbalized no concerns.
--- NOTE | 2020-05-28 19:15 | NUR ---
Covid19 test results negative.
[2020-05-28 20:16] VITALS: BP 110/65
[2020-05-28] MEDS: MAGNESIUM COMPLEX GT SCH (20:36)
[2020-05-28] MEDS: CRANBERRY 500 MG GT SCH (20:36)
[2020-05-28] MEDS: MELATONIN 3 MG TABLET GT SCH (20:36)
[2020-05-28] MEDS: NUTRISOURCE FIBER 4 GM PACKET GT SCH (20:36)
[2020-05-28] MEDS: ASCORBIC ACID 500 MG TABLET GT SCH (20:37)
[2020-05-28] MEDS: PROTEIN SUPPLEMENT (PROSTAT) 30 ML LIQUID GT SCH (20:37)
[2020-05-28] MEDS: RIVAROXABAN 15 MG TABLET GT SCH (20:37)
[2020-05-29] MEDS: BACLOFEN 20 MG TABLET GT SCH ×3 (05:03→21:42)
[2020-05-29] MEDS: OMEPRAZOLE 20 MG CAPSULE.DR GT SCH (05:04)
[2020-05-29] MEDS: METOCLOPRAMIDE HCL 10 MG/10 ML UDC GT SCH ×4 (05:05→17:05)
[2020-05-29] MEDS: MULTIVIT, IRON, MIN NO. 8, FA TABLET GT SCH (05:05)
[2020-05-29 07:38] VITALS: BP 124/63
[2020-05-29] MEDS: HYDROGEN PEROXIDE 3% 118 ML BOTTLE TP SCH ×2 (08:03→21:48)
[2020-05-29] MEDS: MIRALAX 17 GM POWD.PACK GT SCH (08:22)
[2020-05-29] MEDS: POTASSIUM CHLORIDE 40 MEQ/30 ML LIQUID UDC GT SCH (08:22)
[2020-05-29] MEDS: ACIDOPHILUS/BULGARICUS CHEW TAB GT SCH ×2 (08:23→21:39)
[2020-05-29] MEDS: levETIRAcetam 500 MG/5 ML LIQUID UDC GT SCH ×2 (08:23→21:39)
[2020-05-29] MEDS: DOCUSATE SODIUM 100 MG/10 ML LIQUID UDC GT SCH (08:23)
[2020-05-29] MEDS: COD LIVER OIL/ZINC OXIDE OINT 113 GM TUBE TP SCH ×2 (08:23→21:42)
--- NOTE | 2020-05-29 13:00 | NUR ---
Video call provided with the pt. father. No concerns at this time. Will continue to monitor pt.
[2020-05-29 20:25] VITALS: BP 101/58
[2020-05-29] MEDS: CRANBERRY 500 MG GT SCH (21:41)
[2020-05-29] MEDS: MELATONIN 3 MG TABLET GT SCH (21:41)
[2020-05-29] MEDS: MAGNESIUM COMPLEX GT SCH (21:41)
[2020-05-29] MEDS: RIVAROXABAN 15 MG TABLET GT SCH (21:42)
[2020-05-29] MEDS: ASCORBIC ACID 500 MG TABLET GT SCH (21:42)
[2020-05-29] MEDS: PROTEIN SUPPLEMENT (PROSTAT) 30 ML LIQUID GT SCH (21:42)
[2020-05-29] MEDS: NUTRISOURCE FIBER 4 GM PACKET GT SCH (21:42)
[2020-05-30] MEDS: METOCLOPRAMIDE HCL 10 MG/10 ML UDC GT SCH ×4 (05:18→18:05)
[2020-05-30] MEDS: OMEPRAZOLE 20 MG CAPSULE.DR GT SCH (05:18)
[2020-05-30] MEDS: BACLOFEN 20 MG TABLET GT SCH ×3 (05:18→21:06)
[2020-05-30] MEDS: MULTIVIT, IRON, MIN NO. 8, FA TABLET GT SCH (05:18)
[2020-05-30 07:36] VITALS: BP 110/64
[2020-05-30] MEDS: ACIDOPHILUS/BULGARICUS CHEW TAB GT SCH ×2 (08:09→21:03)
[2020-05-30] MEDS: DOCUSATE SODIUM 100 MG/10 ML LIQUID UDC GT SCH (08:09)
[2020-05-30] MEDS: MIRALAX 17 GM POWD.PACK GT SCH (08:10)
[2020-05-30] MEDS: levETIRAcetam 500 MG/5 ML LIQUID UDC GT SCH ×2 (08:10→21:04)
[2020-05-30] MEDS: POTASSIUM CHLORIDE 40 MEQ/30 ML LIQUID UDC GT SCH (08:11)
[2020-05-30] MEDS: COD LIVER OIL/ZINC OXIDE OINT 113 GM TUBE TP SCH ×2 (08:11→21:06)
[2020-05-30] MEDS: HYDROGEN PEROXIDE 3% 118 ML BOTTLE TP SCH ×2 (09:14→21:04)
--- NOTE | 2020-05-30 16:00 | NUR ---
Video call provided with the pt. mother. No concerns at this time. Will continue to monitor pt.
[2020-05-30 20:00] VITALS: BP 100/68
[2020-05-30] MEDS: MELATONIN 3MG TABLET GT SCH (21:03)
[2020-05-30] MEDS: CRANBERRY 500 MG GT SCH (21:04)
[2020-05-30] MEDS: PROTEIN SUPPLEMENT (PROSTAT) 30 ML LIQUID GT SCH (21:05)
[2020-05-30] MEDS: MAGNESIUM COMPLEX GT SCH (21:05)
[2020-05-30] MEDS: NUTRISOURCE FIBER 4 GM PACKET GT SCH (21:05)
[2020-05-30] MEDS: ASCORBIC ACID 500 MG TABLET GT SCH (21:05)
[2020-05-30] MEDS: RIVAROXABAN 15 MG TABLET GT SCH (21:06)
[2020-05-31] MEDS: MULTIVIT, IRON, MIN NO. 8, FA TABLET GT SCH (05:21)
[2020-05-31] MEDS: BACLOFEN 20 MG TABLET GT SCH ×3 (05:21→22:24)
[2020-05-31] MEDS: METOCLOPRAMIDE HCL 10 MG/10 ML UDC GT SCH ×4 (05:21→17:13)
[2020-05-31] MEDS: OMEPRAZOLE 20 MG CAPSULE.DR GT SCH (05:21)
[2020-05-31] MEDS: TWOCAL HN 1,000 ML LIQUID GT PRN (05:39)
[2020-05-31 07:32] VITALS: BP 116/61
[2020-05-31] MEDS: levETIRAcetam 500 MG/5 ML LIQUID UDC GT SCH ×2 (08:50→21:00)
[2020-05-31] MEDS: DOCUSATE SODIUM 100 MG/10 ML LIQUID UDC GT SCH (08:50)
[2020-05-31] MEDS: ACIDOPHILUS/BULGARICUS CHEW TAB GT SCH ×2 (08:50→21:00)
[2020-05-31] MEDS: POTASSIUM CHLORIDE 40 MEQ/30 ML LIQUID UDC GT SCH (08:51)
[2020-05-31] MEDS: MIRALAX 17 GM POWD.PACK GT SCH (08:51)
[2020-05-31] MEDS: COD LIVER OIL/ZINC OXIDE OINT 113 GM TUBE TP SCH ×2 (08:52→21:00)
[2020-05-31] MEDS: COAL TAR TOP SCH (08:52)
[2020-05-31] MEDS: HYDROGEN PEROXIDE 3% 118 ML BOTTLE TP SCH ×2 (09:00→21:38)
--- NOTE | 2020-05-31 15:30 | NUR ---
zoom provided to pt's sister, klarissa. PT in bed awake, calm and no signs of distress.
[2020-05-31 20:30] VITALS: BP 127/58
[2020-05-31] MEDS: NUTRISOURCE FIBER 4 GM PACKET GT SCH (21:00)
[2020-05-31] MEDS: CRANBERRY 500 MG GT SCH (21:00)
[2020-05-31] MEDS: ASCORBIC ACID 500 MG TABLET GT SCH (21:00)
[2020-05-31] MEDS: RIVAROXABAN 15 MG TABLET GT SCH (21:00)
[2020-05-31] MEDS: MAGNESIUM COMPLEX GT SCH (21:00)
[2020-05-31] MEDS: PROTEIN SUPPLEMENT (PROSTAT) 30 ML LIQUID GT SCH (21:00)
[2020-05-31] MEDS: MELATONIN 3MG TABLET GT SCH (21:00)
[2020-06-01] MEDS: METOCLOPRAMIDE HCL 10 MG/10 ML UDC GT SCH ×4 (00:21→18:27)
[2020-06-01] MEDS: BACLOFEN 20 MG TABLET GT SCH ×3 (06:12→22:00)
[2020-06-01] MEDS: MULTIVIT, IRON, MIN NO. 8, FA TABLET GT SCH (06:13)
[2020-06-01] MEDS: OMEPRAZOLE 20 MG CAPSULE.DR GT SCH (06:13)
[2020-06-01 07:38] VITALS: BP 116/62
[2020-06-01] MEDS: DOCUSATE SODIUM 100 MG/10 ML LIQUID UDC GT SCH (08:37)
[2020-06-01] MEDS: MIRALAX 17 GM POWD.PACK GT SCH (08:38)
[2020-06-01] MEDS: ACIDOPHILUS/BULGARICUS CHEW TAB GT SCH ×2 (08:38→20:31)
[2020-06-01] MEDS: levETIRAcetam 500 MG/5 ML LIQUID UDC GT SCH ×2 (08:38→20:31)
[2020-06-01] MEDS: POTASSIUM CHLORIDE 40 MEQ/30 ML LIQUID UDC GT SCH (08:38)
[2020-06-01] MEDS: COD LIVER OIL/ZINC OXIDE OINT 113 GM TUBE TP SCH ×2 (08:39→20:44)
[2020-06-01] MEDS: HYDROGEN PEROXIDE 3% 118 ML BOTTLE TP SCH ×2 (10:00→21:26)
--- NOTE | 2020-06-01 17:30 | NUR ---
Provided Zoom meeting for patient with Zoom.
--- NOTE | 2020-06-01 18:30 | NUR ---
Provided Zoom meeting with patient and mother.
[2020-06-01] MEDS: MELATONIN 3MG TABLET GT SCH (20:31)
[2020-06-01] MEDS: CRANBERRY 500 MG GT SCH (20:31)
[2020-06-01] MEDS: MAGNESIUM COMPLEX GT SCH (20:31)
[2020-06-01 20:38] VITALS: BP 113/78
[2020-06-01] MEDS: ASCORBIC ACID 500 MG TABLET GT SCH (20:42)
[2020-06-01] MEDS: NUTRISOURCE FIBER 4 GM PACKET GT SCH (20:42)
[2020-06-01] MEDS: PROTEIN SUPPLEMENT (PROSTAT) 30 ML LIQUID GT SCH (20:42)
[2020-06-01] MEDS: RIVAROXABAN 15 MG TABLET GT SCH (21:00)
[2020-06-02] MEDS: METOCLOPRAMIDE HCL 10 MG/10 ML UDC GT SCH ×4 (00:08→17:28)
[2020-06-02] MEDS: OMEPRAZOLE 20 MG CAPSULE.DR GT SCH (05:33)
[2020-06-02] MEDS: MULTIVIT, IRON, MIN NO. 8, FA TABLET GT SCH (05:33)
[2020-06-02] MEDS: BACLOFEN 20 MG TABLET GT SCH ×3 (05:33→22:23)
[2020-06-02 08:01] VITALS: BP 90/53
[2020-06-02] MEDS: MIRALAX 17 GM POWD.PACK GT SCH (08:30)
[2020-06-02] MEDS: levETIRAcetam 500 MG/5 ML LIQUID UDC GT SCH ×2 (08:30→20:36)
[2020-06-02] MEDS: POTASSIUM CHLORIDE 40 MEQ/30 ML LIQUID UDC GT SCH (08:30)
[2020-06-02] MEDS: ACIDOPHILUS/BULGARICUS CHEW TAB GT SCH ×2 (08:30→20:36)
[2020-06-02] MEDS: DOCUSATE SODIUM 100 MG/10 ML LIQUID UDC GT SCH (08:30)
[2020-06-02] MEDS: COD LIVER OIL/ZINC OXIDE OINT 113 GM TUBE TP SCH ×2 (08:31→20:37)
[2020-06-02] MEDS: HYDROGEN PEROXIDE 3% 118 ML BOTTLE TP SCH ×2 (09:24→21:14)
--- NOTE | 2020-06-02 13:00 | NUR ---
Seen and examined by Dr Sue,no new orders noted.
--- NOTE | 2020-06-02 16:30 | NUR ---
Provided Zoom meeting for Patient with Dad.
[2020-06-02] MEDS: TWOCAL HN 1,000 ML LIQUID GT PRN (17:35)
[2020-06-02] MEDS: BISACODYL 10 MG SUPP.RECT RC PRN (18:24)
[2020-06-02 20:22] VITALS: BP 127/58
[2020-06-02] MEDS: RIVAROXABAN 15 MG TABLET GT SCH (20:35)
[2020-06-02] MEDS: CRANBERRY 500 MG GT SCH (20:36)
[2020-06-02] MEDS: MELATONIN 3MG TABLET GT SCH (20:36)
[2020-06-02] MEDS: ASCORBIC ACID 500 MG TABLET GT SCH (20:37)
[2020-06-02] MEDS: MAGNESIUM COMPLEX GT SCH (20:37)
[2020-06-02] MEDS: NUTRISOURCE FIBER 4 GM PACKET GT SCH (20:37)
[2020-06-02] MEDS: PROTEIN SUPPLEMENT (PROSTAT) 30 ML LIQUID GT SCH (20:37)
[2020-06-03] MEDS: METOCLOPRAMIDE HCL 10 MG/10 ML UDC GT SCH ×4 (00:51→17:15)
[2020-06-03] MEDS: MULTIVIT, IRON, MIN NO. 8, FA TABLET GT SCH (05:00)
[2020-06-03] MEDS: BACLOFEN 20 MG TABLET GT SCH ×3 (05:00→21:06)
[2020-06-03] MEDS: OMEPRAZOLE 20 MG CAPSULE.DR GT SCH (05:00)
[2020-06-03 07:50] VITALS: BP 110/65
[2020-06-03] MEDS: ACIDOPHILUS/BULGARICUS CHEW TAB GT SCH ×2 (08:18→21:03)
[2020-06-03] MEDS: levETIRAcetam 500 MG/5 ML LIQUID UDC GT SCH ×2 (08:18→21:05)
[2020-06-03] MEDS: DOCUSATE SODIUM 100 MG/10 ML LIQUID UDC GT SCH (08:18)
[2020-06-03] MEDS: COD LIVER OIL/ZINC OXIDE OINT 113 GM TUBE TP SCH ×2 (08:19→21:05)
[2020-06-03] MEDS: POTASSIUM CHLORIDE 40 MEQ/30 ML LIQUID UDC GT SCH (08:19)
[2020-06-03] MEDS: MIRALAX 17 GM POWD.PACK GT SCH (08:19)
[2020-06-03] MEDS: HYDROGEN PEROXIDE 3% 118 ML BOTTLE TP SCH ×2 (09:26→21:46)
[2020-06-03] MEDS: RIVAROXABAN 15 MG TABLET GT SCH (21:00)
[2020-06-03] MEDS: MELATONIN 3MG TABLET GT SCH (21:03)
[2020-06-03] MEDS: NUTRISOURCE FIBER 4 GM PACKET GT SCH (21:05)
[2020-06-03] MEDS: ASCORBIC ACID 500 MG TABLET GT SCH (21:05)
[2020-06-03] MEDS: PROTEIN SUPPLEMENT (PROSTAT) 30 ML LIQUID GT SCH (21:05)
[2020-06-03] MEDS: CRANBERRY 500 MG GT SCH (21:05)
[2020-06-03] MEDS: MAGNESIUM COMPLEX GT SCH (21:05)
[2020-06-03 22:47] VITALS: BP 102/59
[2020-06-03 22:50] VITALS: BP 134/72
[2020-06-04] MEDS: METOCLOPRAMIDE HCL 10 MG/10 ML UDC GT SCH ×5 (00:21→23:47)
[2020-06-04] MEDS: MULTIVIT, IRON, MIN NO. 8, FA TABLET GT SCH (05:31)
[2020-06-04] MEDS: OMEPRAZOLE 20 MG CAPSULE.DR GT SCH (05:31)
[2020-06-04] MEDS: BACLOFEN 20 MG TABLET GT SCH ×3 (05:31→22:10)
[2020-06-04 07:46] VITALS: BP 163/61
[2020-06-04] MEDS: DOCUSATE SODIUM 100 MG/10 ML LIQUID UDC GT SCH (08:34)
[2020-06-04] MEDS: ACIDOPHILUS/BULGARICUS CHEW TAB GT SCH ×2 (08:34→20:54)
[2020-06-04] MEDS: POTASSIUM CHLORIDE 40 MEQ/30 ML LIQUID UDC GT SCH (08:36)
[2020-06-04] MEDS: COAL TAR TOP SCH (08:36)
[2020-06-04] MEDS: MIRALAX 17 GM POWD.PACK GT SCH (08:36)
[2020-06-04] MEDS: COD LIVER OIL/ZINC OXIDE OINT 113 GM TUBE TP SCH ×2 (08:36→20:57)
[2020-06-04] MEDS: levETIRAcetam 500 MG/5 ML LIQUID UDC GT SCH ×2 (08:36→20:55)
[2020-06-04] MEDS: HYDROGEN PEROXIDE 3% 118 ML BOTTLE TP SCH ×2 (08:45→21:06)
[2020-06-04 20:02] VITALS: BP 121/71
[2020-06-04] MEDS: RIVAROXABAN 15 MG TABLET GT SCH (20:53)
[2020-06-04] MEDS: MELATONIN 3MG TABLET GT SCH (20:54)
[2020-06-04] MEDS: MAGNESIUM COMPLEX GT SCH (20:56)
[2020-06-04] MEDS: CRANBERRY 500 MG GT SCH (20:56)
[2020-06-04] MEDS: PROTEIN SUPPLEMENT (PROSTAT) 30 ML LIQUID GT SCH (20:57)
[2020-06-04] MEDS: ASCORBIC ACID 500 MG TABLET GT SCH (20:57)
[2020-06-04] MEDS: NUTRISOURCE FIBER 4 GM PACKET GT SCH (20:57)
[2020-06-05] MEDS: TWOCAL HN 1,000 ML LIQUID GT PRN (01:49)
[2020-06-05] MEDS: METOCLOPRAMIDE HCL 10 MG/10 ML UDC GT SCH ×3 (05:01→17:39)
[2020-06-05] MEDS: BACLOFEN 20 MG TABLET GT SCH ×3 (05:01→22:40)
[2020-06-05] MEDS: MULTIVIT, IRON, MIN NO. 8, FA TABLET GT SCH (05:01)
[2020-06-05] MEDS: OMEPRAZOLE 20 MG CAPSULE.DR GT SCH (05:01)
[2020-06-05 07:46] VITALS: BP 107/68
[2020-06-05] MEDS: MIRALAX 17 GM POWD.PACK GT SCH (08:54)
[2020-06-05] MEDS: ACIDOPHILUS/BULGARICUS CHEW TAB GT SCH ×2 (08:54→21:00)
[2020-06-05] MEDS: COD LIVER OIL/ZINC OXIDE OINT 113 GM TUBE TP SCH ×2 (08:54→21:00)
[2020-06-05] MEDS: POTASSIUM CHLORIDE 40 MEQ/30 ML LIQUID UDC GT SCH (08:54)
[2020-06-05] MEDS: DOCUSATE SODIUM 100 MG/10 ML LIQUID UDC GT SCH (08:54)
[2020-06-05] MEDS: levETIRAcetam 500 MG/5 ML LIQUID UDC GT SCH ×2 (08:54→21:00)
[2020-06-05] MEDS: HYDROGEN PEROXIDE 3% 118 ML BOTTLE TP SCH ×2 (09:13→21:34)
--- NOTE | 2020-06-05 12:30 | NUR ---
Provided video chat to pt. and her sister with no problem noted, all needs attended and anticipated.
[2020-06-05 20:00] VITALS: BP 121/71
[2020-06-05] MEDS: MELATONIN 3MG TABLET GT SCH (21:00)
[2020-06-05] MEDS: CRANBERRY 500 MG GT SCH (21:00)
[2020-06-05] MEDS: MAGNESIUM COMPLEX GT SCH (21:00)
[2020-06-05] MEDS: ASCORBIC ACID 500 MG TABLET GT SCH (21:00)
[2020-06-05] MEDS: PROTEIN SUPPLEMENT (PROSTAT) 30 ML LIQUID GT SCH (21:00)
[2020-06-05] MEDS: NUTRISOURCE FIBER 4 GM PACKET GT SCH (21:00)
[2020-06-05] MEDS: RIVAROXABAN 15 MG TABLET GT SCH (21:00)
[2020-06-06] MEDS: BACLOFEN 20 MG TABLET GT SCH ×3 (06:00→21:00)
[2020-06-06] MEDS: METOCLOPRAMIDE HCL 10 MG/10 ML UDC GT SCH ×4 (06:00→17:52)
[2020-06-06] MEDS: MULTIVIT, IRON, MIN NO. 8, FA TABLET GT SCH (06:00)
[2020-06-06] MEDS: OMEPRAZOLE 20 MG CAPSULE.DR GT SCH (06:00)
[2020-06-06] MEDS: HYDROGEN PEROXIDE 3% 118 ML BOTTLE TP SCH ×2 (07:58→21:26)
[2020-06-06] MEDS: COD LIVER OIL/ZINC OXIDE OINT 113 GM TUBE TP SCH ×2 (09:05→21:00)
[2020-06-06] MEDS: levETIRAcetam 500 MG/5 ML LIQUID UDC GT SCH ×2 (09:05→20:58)
[2020-06-06] MEDS: ACIDOPHILUS/BULGARICUS CHEW TAB GT SCH ×2 (09:05→20:58)
[2020-06-06] MEDS: POTASSIUM CHLORIDE 40 MEQ/30 ML LIQUID UDC GT SCH (09:05)
[2020-06-06] MEDS: DOCUSATE SODIUM 100 MG/10 ML LIQUID UDC GT SCH (09:05)
[2020-06-06] MEDS: MIRALAX 17 GM POWD.PACK GT SCH (09:05)
--- NOTE | 2020-06-06 14:00 | NUR ---
Provided video chat to pt. and her mother with no problem noted, pt remains comfortable all needs attended and anticipated.
[2020-06-06 15:56] VITALS: BP 90/48
[2020-06-06 20:00] VITALS: BP 117/67
--- NOTE | 2020-06-06 20:14 | NUR ---
Pt received on C/A with FIO2-28% via trach mask. No SOB noted. Airway care and trach care done, pt responded to physical stimuli. No indication for PRN HHN tx at this time. Resus. bag and back up trach at bedside. Cont. monitor.
[2020-06-06] MEDS: RIVAROXABAN 15 MG TABLET GT SCH (20:45)
[2020-06-06] MEDS: CRANBERRY 500 MG GT SCH (20:58)
[2020-06-06] MEDS: MELATONIN 3MG TABLET GT SCH (20:58)
[2020-06-06] MEDS: MAGNESIUM COMPLEX GT SCH (20:58)
[2020-06-06] MEDS: ASCORBIC ACID 500 MG TABLET GT SCH (21:00)
[2020-06-06] MEDS: PROTEIN SUPPLEMENT (PROSTAT) 30 ML LIQUID GT SCH (21:00)
[2020-06-06] MEDS: NUTRISOURCE FIBER 4 GM PACKET GT SCH (21:00)
[2020-06-07] MEDS: METOCLOPRAMIDE HCL 10 MG/10 ML UDC GT SCH ×4 (00:22→17:15)
[2020-06-07] MEDS: TWOCAL HN 1,000 ML LIQUID GT PRN (02:42)
[2020-06-07] MEDS: OMEPRAZOLE 20 MG CAPSULE.DR GT SCH (05:53)
[2020-06-07] MEDS: MULTIVIT, IRON, MIN NO. 8, FA TABLET GT SCH (05:53)
[2020-06-07] MEDS: BACLOFEN 20 MG TABLET GT SCH ×3 (05:53→21:08)
[2020-06-07 07:36] VITALS: BP 111/62
[2020-06-07] MEDS: ACIDOPHILUS/BULGARICUS CHEW TAB GT SCH ×2 (08:31→21:07)
[2020-06-07] MEDS: DOCUSATE SODIUM 100 MG/10 ML LIQUID UDC GT SCH (08:31)
[2020-06-07] MEDS: levETIRAcetam 500 MG/5 ML LIQUID UDC GT SCH ×2 (08:31→21:07)
[2020-06-07] MEDS: MIRALAX 17 GM POWD.PACK GT SCH (08:32)
[2020-06-07] MEDS: COAL TAR TOP SCH (08:32)
[2020-06-07] MEDS: COD LIVER OIL/ZINC OXIDE OINT 113 GM TUBE TP SCH ×2 (08:32→21:08)
[2020-06-07] MEDS: POTASSIUM CHLORIDE 40 MEQ/30 ML LIQUID UDC GT SCH (08:32)
[2020-06-07] MEDS: HYDROGEN PEROXIDE 3% 118 ML BOTTLE TP SCH ×2 (09:00→19:24)
--- NOTE | 2020-06-07 14:08 | NUR ---
ZOOM PROVIDED TO SISTER.
[2020-06-07 20:00] VITALS: BP 122/72
[2020-06-07] MEDS: MAGNESIUM COMPLEX GT SCH (21:07)
[2020-06-07] MEDS: MELATONIN 3MG TABLET GT SCH (21:07)
[2020-06-07] MEDS: CRANBERRY 500 MG GT SCH (21:07)
[2020-06-07] MEDS: ASCORBIC ACID 500 MG TABLET GT SCH (21:08)
[2020-06-07] MEDS: PROTEIN SUPPLEMENT (PROSTAT) 30 ML LIQUID GT SCH (21:08)
[2020-06-07] MEDS: NUTRISOURCE FIBER 4 GM PACKET GT SCH (21:08)
[2020-06-07] MEDS: RIVAROXABAN 15 MG TABLET GT SCH (21:19)
[2020-06-08] MEDS: BACLOFEN 20 MG TABLET GT SCH ×3 (05:26→22:32)
[2020-06-08] MEDS: MULTIVIT, IRON, MIN NO. 8, FA TABLET GT SCH (05:26)
[2020-06-08] MEDS: METOCLOPRAMIDE HCL 10 MG/10 ML UDC GT SCH ×4 (05:26→17:18)
[2020-06-08] MEDS: OMEPRAZOLE 20 MG CAPSULE.DR GT SCH (05:26)
[2020-06-08] MEDS: HYDROGEN PEROXIDE 3% 118 ML BOTTLE TP SCH ×2 (07:09→21:31)
[2020-06-08 07:31] VITALS: BP 98/57
[2020-06-08] MEDS: ACIDOPHILUS/BULGARICUS CHEW TAB GT SCH ×2 (08:23→20:46)
[2020-06-08] MEDS: DOCUSATE SODIUM 100 MG/10 ML LIQUID UDC GT SCH (08:23)
[2020-06-08] MEDS: levETIRAcetam 500 MG/5 ML LIQUID UDC GT SCH ×2 (08:26→20:47)
[2020-06-08] MEDS: POTASSIUM CHLORIDE 40 MEQ/30 ML LIQUID UDC GT SCH (08:27)
[2020-06-08] MEDS: MIRALAX 17 GM POWD.PACK GT SCH (08:27)
[2020-06-08] MEDS: COD LIVER OIL/ZINC OXIDE OINT 113 GM TUBE TP SCH ×2 (08:27→20:47)
--- NOTE | 2020-06-08 20:12 | NUR ---
Pt received on C/A with FIO2-28% via trach mask. No s/s of respiratory distress noted. Airway care and trach care done, pt responded to physical stimuli. No indication for PRN HHN tx at this time. Resus. bag and back up trach at bedside. Cont. monitor.
[2020-06-08] MEDS: RIVAROXABAN 15 MG TABLET GT SCH (20:41)
[2020-06-08] MEDS: MELATONIN 3MG TABLET GT SCH (20:46)
[2020-06-08] MEDS: PROTEIN SUPPLEMENT (PROSTAT) 30 ML LIQUID GT SCH (20:47)
[2020-06-08] MEDS: MAGNESIUM COMPLEX GT SCH (20:47)
[2020-06-08] MEDS: NUTRISOURCE FIBER 4 GM PACKET GT SCH (20:47)
[2020-06-08] MEDS: CRANBERRY 500 MG GT SCH (20:47)
[2020-06-08] MEDS: ASCORBIC ACID 500 MG TABLET GT SCH (20:47)
[2020-06-08] MEDS: POLYVINYL ALCOHOL OPHT DROPS 15 ML BOTTLE EACHEYE PRN (21:05)
[2020-06-08 22:37] VITALS: BP 106/69
[2020-06-09] MEDS: METOCLOPRAMIDE HCL 10 MG/10 ML UDC GT SCH ×4 (00:37→17:32)
[2020-06-09] MEDS: TWOCAL HN 1,000 ML LIQUID GT PRN (01:20)
[2020-06-09] MEDS: BACLOFEN 20 MG TABLET GT SCH ×3 (05:40→22:55)
[2020-06-09] MEDS: OMEPRAZOLE 20 MG CAPSULE.DR GT SCH (05:40)
[2020-06-09] MEDS: MULTIVIT, IRON, MIN NO. 8, FA TABLET GT SCH (05:40)
[2020-06-09 07:27] VITALS: BP 98/62
[2020-06-09] MEDS: HYDROGEN PEROXIDE 3% 118 ML BOTTLE TP SCH ×2 (07:36→21:24)
[2020-06-09] MEDS: ACIDOPHILUS/BULGARICUS CHEW TAB GT SCH ×2 (08:09→21:00)
[2020-06-09] MEDS: levETIRAcetam 500 MG/5 ML LIQUID UDC GT SCH ×2 (08:09→21:00)
[2020-06-09] MEDS: DOCUSATE SODIUM 100 MG/10 ML LIQUID UDC GT SCH (08:09)
[2020-06-09] MEDS: POTASSIUM CHLORIDE 40 MEQ/30 ML LIQUID UDC GT SCH (08:10)
[2020-06-09] MEDS: MIRALAX 17 GM POWD.PACK GT SCH (08:10)
[2020-06-09] MEDS: COD LIVER OIL/ZINC OXIDE OINT 113 GM TUBE TP SCH ×2 (08:11→21:00)
--- NOTE | 2020-06-09 16:16 | NUR ---
NEW ORDER WAS CARRIED OUT FROM DR. COURTNEY FOR COVID 19 TEST PER [facility] AND PT'S FATHER IN AGREEMENT.
--- NOTE | 2020-06-09 20:14 | NUR ---
Pt received on C/A with FIO2-28% via trach mask. No distress noted. Airway care and trach care done, pt responded to physical stimuli. No indication for PRN HHN tx at this time. Resus. bag and back up trach at bedside. Cont. monitor.
[2020-06-09 20:17] VITALS: BP 113/67
[2020-06-09] MEDS: ASCORBIC ACID 500 MG TABLET GT SCH (21:00)
[2020-06-09] MEDS: PROTEIN SUPPLEMENT (PROSTAT) 30 ML LIQUID GT SCH (21:00)
[2020-06-09] MEDS: MAGNESIUM COMPLEX GT SCH (21:00)
[2020-06-09] MEDS: CRANBERRY 500 MG GT SCH (21:00)
[2020-06-09] MEDS: MELATONIN 3MG TABLET GT SCH (21:00)
[2020-06-09] MEDS: NUTRISOURCE FIBER 4 GM PACKET GT SCH (21:00)
[2020-06-09] MEDS: RIVAROXABAN 15 MG TABLET GT SCH (21:00)
[2020-06-10] MEDS: METOCLOPRAMIDE HCL 10 MG/10 ML UDC GT SCH ×4 (00:17→18:06)
[2020-06-10] MEDS: BACLOFEN 20 MG TABLET GT SCH ×3 (06:21→22:12)
[2020-06-10] MEDS: MULTIVIT, IRON, MIN NO. 8, FA TABLET GT SCH (06:21)
[2020-06-10] MEDS: OMEPRAZOLE 20 MG CAPSULE.DR GT SCH (06:21)
[2020-06-10 07:56] VITALS: BP 96/50
[2020-06-10] MEDS: HYDROGEN PEROXIDE 3% 118 ML BOTTLE TP SCH ×2 (08:18→21:07)
[2020-06-10] MEDS: ACIDOPHILUS/BULGARICUS CHEW TAB GT SCH ×2 (08:40→21:00)
[2020-06-10] MEDS: DOCUSATE SODIUM 100 MG/10 ML LIQUID UDC GT SCH (08:40)
[2020-06-10] MEDS: levETIRAcetam 500 MG/5 ML LIQUID UDC GT SCH ×2 (08:40→21:00)
[2020-06-10] MEDS: MIRALAX 17 GM POWD.PACK GT SCH (08:40)
[2020-06-10] MEDS: POTASSIUM CHLORIDE 40 MEQ/30 ML LIQUID UDC GT SCH (08:40)
[2020-06-10] MEDS: COD LIVER OIL/ZINC OXIDE OINT 113 GM TUBE TP SCH ×2 (08:41→21:00)
--- NOTE | 2020-06-10 15:45 | NUR ---
PT'S FATHER WAS NOTIFIED THAT PT. IS NEGATIVE FOR COVID19 TEST FROM YESTERDAY.
--- NOTE | 2020-06-10 20:12 | NUR ---
Pt received on C/A with FIO2-28% via trach mask. No respiratory distress noted. Airway care and trach care done, pt responded to physical stimuli. No indication for PRN HHN tx at this time. Resus. bag and back up trach at bedside. Cont. monitor.
[2020-06-10 20:18] VITALS: BP 117/76
[2020-06-10] MEDS: RIVAROXABAN 15 MG TABLET GT SCH (20:46)
[2020-06-10] MEDS: MAGNESIUM COMPLEX GT SCH (21:00)
[2020-06-10] MEDS: NUTRISOURCE FIBER 4 GM PACKET GT SCH (21:00)
[2020-06-10] MEDS: MELATONIN 3MG TABLET GT SCH (21:00)
[2020-06-10] MEDS: CRANBERRY 500 MG GT SCH (21:00)
[2020-06-10] MEDS: PROTEIN SUPPLEMENT (PROSTAT) 30 ML LIQUID GT SCH (21:00)
[2020-06-10] MEDS: ASCORBIC ACID 500 MG TABLET GT SCH (21:00)
[2020-06-11] MEDS: METOCLOPRAMIDE HCL 10 MG/10 ML UDC GT SCH ×4 (00:48→17:25)
[2020-06-11] MEDS: BACLOFEN 20 MG TABLET GT SCH ×3 (05:30→21:02)
[2020-06-11] MEDS: OMEPRAZOLE 20 MG CAPSULE.DR GT SCH (05:30)
[2020-06-11] MEDS: MULTIVIT, IRON, MIN NO. 8, FA TABLET GT SCH (05:30)
[2020-06-11 07:40] VITALS: BP 102/67
[2020-06-11] MEDS: DOCUSATE SODIUM 100 MG/10 ML LIQUID UDC GT SCH (08:22)
[2020-06-11] MEDS: ACIDOPHILUS/BULGARICUS CHEW TAB GT SCH ×2 (08:22→20:55)
[2020-06-11] MEDS: levETIRAcetam 500 MG/5 ML LIQUID UDC GT SCH ×2 (08:24→20:55)
[2020-06-11] MEDS: POTASSIUM CHLORIDE 40 MEQ/30 ML LIQUID UDC GT SCH (08:25)
[2020-06-11] MEDS: MIRALAX 17 GM POWD.PACK GT SCH (08:25)
[2020-06-11] MEDS: COD LIVER OIL/ZINC OXIDE OINT 113 GM TUBE TP SCH ×2 (08:26→20:57)
[2020-06-11] MEDS: COAL TAR TOP SCH (08:26)
[2020-06-11] MEDS: HYDROGEN PEROXIDE 3% 118 ML BOTTLE TP SCH ×2 (09:25→19:21)
--- NOTE | 2020-06-11 15:00 | NUR ---
zoom meeting provided to pt's sister. pt is in bed calm, awake, and no signs of distress.
[2020-06-11] MEDS: TWOCAL HN 1,000 ML LIQUID GT PRN (15:05)
[2020-06-11 20:33] VITALS: BP 99/57
[2020-06-11] MEDS: MAGNESIUM COMPLEX GT SCH (20:55)
[2020-06-11] MEDS: CRANBERRY 500 MG GT SCH (20:55)
[2020-06-11] MEDS: MELATONIN 3MG TABLET GT SCH (20:55)
[2020-06-11] MEDS: ASCORBIC ACID 500 MG TABLET GT SCH (20:56)
[2020-06-11] MEDS: PROTEIN SUPPLEMENT (PROSTAT) 30 ML LIQUID GT SCH (20:56)
[2020-06-11] MEDS: NUTRISOURCE FIBER 4 GM PACKET GT SCH (20:56)
[2020-06-11] MEDS: RIVAROXABAN 15 MG TABLET GT SCH (20:57)
[2020-06-12] MEDS: METOCLOPRAMIDE HCL 10 MG/10 ML UDC GT SCH ×4 (00:33→17:26)
[2020-06-12] MEDS: OMEPRAZOLE 20 MG CAPSULE.DR GT SCH (05:41)
[2020-06-12] MEDS: BACLOFEN 20 MG TABLET GT SCH ×3 (05:41→22:15)
[2020-06-12] MEDS: MULTIVIT, IRON, MIN NO. 8, FA TABLET GT SCH (05:41)
[2020-06-12] MEDS: MIRALAX 17 GM POWD.PACK GT SCH (08:04)
[2020-06-12] MEDS: ACIDOPHILUS/BULGARICUS CHEW TAB GT SCH ×2 (08:04→20:46)
[2020-06-12] MEDS: COD LIVER OIL/ZINC OXIDE OINT 113 GM TUBE TP SCH ×2 (08:04→20:49)
[2020-06-12] MEDS: POTASSIUM CHLORIDE 40 MEQ/30 ML LIQUID UDC GT SCH (08:04)
[2020-06-12] MEDS: levETIRAcetam 500 MG/5 ML LIQUID UDC GT SCH ×2 (08:04→20:46)
[2020-06-12] MEDS: DOCUSATE SODIUM 100 MG/10 ML LIQUID UDC GT SCH (08:04)
[2020-06-12] MEDS: HYDROGEN PEROXIDE 3% 118 ML BOTTLE TP SCH ×2 (09:22→21:29)
--- NOTE | 2020-06-12 11:05 | NUR ---
zoom meeting provided to pt's father. pt is in bed calm, awake, and no signs of distress.
--- NOTE | 2020-06-12 17:05 | NUR ---
This SW notified patient's sister Jeanne via email that the next IDT meeting for the patient has been scheduled for 06/18/2020 at 11am. SW asked Jeanne to let this SW know if Jeanne would like to participate in the meeting through speaker phone.
[2020-06-12 20:26] VITALS: BP 103/65
[2020-06-12] MEDS: MELATONIN 3MG TABLET GT SCH (20:46)
[2020-06-12] MEDS: CRANBERRY 500 MG GT SCH (20:46)
[2020-06-12] MEDS: MAGNESIUM COMPLEX GT SCH (20:46)
[2020-06-12] MEDS: PROTEIN SUPPLEMENT (PROSTAT) 30 ML LIQUID GT SCH (20:47)
[2020-06-12] MEDS: ASCORBIC ACID 500 MG TABLET GT SCH (20:47)
[2020-06-12] MEDS: NUTRISOURCE FIBER 4 GM PACKET GT SCH (20:47)
[2020-06-12] MEDS: RIVAROXABAN 15 MG TABLET GT SCH (20:49)
[2020-06-13] MEDS: METOCLOPRAMIDE HCL 10 MG/10 ML UDC GT SCH ×4 (00:51→17:50)
[2020-06-13] MEDS: TWOCAL HN 1,000 ML LIQUID GT PRN (01:05)
[2020-06-13] MEDS: MULTIVIT, IRON, MIN NO. 8, FA TABLET GT SCH (05:28)
[2020-06-13] MEDS: OMEPRAZOLE 20 MG CAPSULE.DR GT SCH (05:28)
[2020-06-13] MEDS: BACLOFEN 20 MG TABLET GT SCH ×3 (05:28→22:05)
[2020-06-13 07:35] VITALS: BP 110/62
[2020-06-13] MEDS: HYDROGEN PEROXIDE 3% 118 ML BOTTLE TP SCH ×2 (07:37→21:31)
[2020-06-13] MEDS: ACIDOPHILUS/BULGARICUS CHEW TAB GT SCH ×2 (09:17→20:45)
[2020-06-13] MEDS: POTASSIUM CHLORIDE 40 MEQ/30 ML LIQUID UDC GT SCH (09:17)
[2020-06-13] MEDS: MIRALAX 17 GM POWD.PACK GT SCH (09:17)
[2020-06-13] MEDS: levETIRAcetam 500 MG/5 ML LIQUID UDC GT SCH ×2 (09:17→20:45)
[2020-06-13] MEDS: COD LIVER OIL/ZINC OXIDE OINT 113 GM TUBE TP SCH ×2 (09:17→20:48)
[2020-06-13] MEDS: DOCUSATE SODIUM 100 MG/10 ML LIQUID UDC GT SCH (09:17)
[2020-06-13 20:00] VITALS: BP 113/66
[2020-06-13] MEDS: CRANBERRY 500 MG GT SCH (20:45)
[2020-06-13] MEDS: MELATONIN 3MG TABLET GT SCH (20:45)
[2020-06-13] MEDS: MAGNESIUM COMPLEX GT SCH (20:46)
[2020-06-13] MEDS: PROTEIN SUPPLEMENT (PROSTAT) 30 ML LIQUID GT SCH (20:47)
[2020-06-13] MEDS: NUTRISOURCE FIBER 4 GM PACKET GT SCH (20:47)
[2020-06-13] MEDS: ASCORBIC ACID 500 MG TABLET GT SCH (20:47)
[2020-06-13] MEDS: RIVAROXABAN 15 MG TABLET GT SCH (20:48)
[2020-06-14] MEDS: METOCLOPRAMIDE HCL 10 MG/10 ML UDC GT SCH ×5 (00:40→23:12)
[2020-06-14] MEDS: MULTIVIT, IRON, MIN NO. 8, FA TABLET GT SCH (05:55)
[2020-06-14] MEDS: OMEPRAZOLE 20 MG CAPSULE.DR GT SCH (05:55)
[2020-06-14] MEDS: BACLOFEN 20 MG TABLET GT SCH ×3 (05:55→21:05)
[2020-06-14 07:36] VITALS: BP 124/61
[2020-06-14] MEDS: HYDROGEN PEROXIDE 3% 118 ML BOTTLE TP SCH ×2 (08:37→19:26)
[2020-06-14] MEDS: DOCUSATE SODIUM 100 MG/10 ML LIQUID UDC GT SCH (09:21)
[2020-06-14] MEDS: ACIDOPHILUS/BULGARICUS CHEW TAB GT SCH ×2 (09:21→20:45)
[2020-06-14] MEDS: levETIRAcetam 500 MG/5 ML LIQUID UDC GT SCH ×2 (09:22→20:45)
[2020-06-14] MEDS: POTASSIUM CHLORIDE 40 MEQ/30 ML LIQUID UDC GT SCH (09:22)
[2020-06-14] MEDS: MIRALAX 17 GM POWD.PACK GT SCH (09:22)
[2020-06-14] MEDS: COAL TAR TOP SCH (09:23)
[2020-06-14] MEDS: COD LIVER OIL/ZINC OXIDE OINT 113 GM TUBE TP SCH ×2 (09:23→20:45)
[2020-06-14 20:00] VITALS: BP 113/65
[2020-06-14] MEDS: CRANBERRY 500 MG GT SCH (20:45)
[2020-06-14] MEDS: MELATONIN 3MG TABLET GT SCH (20:45)
[2020-06-14] MEDS: NUTRISOURCE FIBER 4 GM PACKET GT SCH (20:45)
[2020-06-14] MEDS: ASCORBIC ACID 500 MG TABLET GT SCH (20:45)
[2020-06-14] MEDS: MAGNESIUM COMPLEX GT SCH (20:45)
[2020-06-14] MEDS: PROTEIN SUPPLEMENT (PROSTAT) 30 ML LIQUID GT SCH (20:45)
[2020-06-14] MEDS: RIVAROXABAN 15 MG TABLET GT SCH (21:05)
[2020-06-14] MEDS: TWOCAL HN 1,000 ML LIQUID GT PRN (22:44)
[2020-06-15] MEDS: OMEPRAZOLE 20 MG CAPSULE.DR GT SCH (05:30)
[2020-06-15] MEDS: BACLOFEN 20 MG TABLET GT SCH ×3 (05:30→21:04)
[2020-06-15] MEDS: METOCLOPRAMIDE HCL 10 MG/10 ML UDC GT SCH ×4 (05:30→23:14)
[2020-06-15] MEDS: MULTIVIT, IRON, MIN NO. 8, FA TABLET GT SCH (05:31)
[2020-06-15 07:33] VITALS: BP 120/60
[2020-06-15] MEDS: HYDROGEN PEROXIDE 3% 118 ML BOTTLE TP SCH ×2 (09:00→21:20)
[2020-06-15] MEDS: ACIDOPHILUS/BULGARICUS CHEW TAB GT SCH ×2 (09:02→20:43)
[2020-06-15] MEDS: DOCUSATE SODIUM 100 MG/10 ML LIQUID UDC GT SCH (09:02)
[2020-06-15] MEDS: MIRALAX 17 GM POWD.PACK GT SCH (09:03)
[2020-06-15] MEDS: POTASSIUM CHLORIDE 40 MEQ/30 ML LIQUID UDC GT SCH (09:03)
[2020-06-15] MEDS: levETIRAcetam 500 MG/5 ML LIQUID UDC GT SCH ×2 (09:03→20:43)
[2020-06-15] MEDS: COD LIVER OIL/ZINC OXIDE OINT 113 GM TUBE TP SCH ×2 (09:04→20:43)
[2020-06-15] MEDS: PROTEIN SUPPLEMENT (PROSTAT) 30 ML LIQUID GT SCH (20:43)
[2020-06-15] MEDS: MAGNESIUM COMPLEX GT SCH (20:43)
[2020-06-15] MEDS: NUTRISOURCE FIBER 4 GM PACKET GT SCH (20:43)
[2020-06-15] MEDS: CRANBERRY 500 MG GT SCH (20:43)
[2020-06-15] MEDS: MELATONIN 3MG TABLET GT SCH (20:43)
[2020-06-15] MEDS: ASCORBIC ACID 500 MG TABLET GT SCH (20:43)
[2020-06-15 20:55] VITALS: BP 132/65
[2020-06-15] MEDS: RIVAROXABAN 15 MG TABLET GT SCH (21:04)
[2020-06-16] MEDS: OMEPRAZOLE 20 MG CAPSULE.DR GT SCH (05:51)
[2020-06-16] MEDS: MULTIVIT, IRON, MIN NO. 8, FA TABLET GT SCH (05:51)
[2020-06-16] MEDS: BACLOFEN 20 MG TABLET GT SCH ×3 (05:51→21:07)
[2020-06-16] MEDS: METOCLOPRAMIDE HCL 10 MG/10 ML UDC GT SCH ×4 (05:51→23:09)
[2020-06-16 07:58] VITALS: BP 101/62
[2020-06-16] MEDS: levETIRAcetam 500 MG/5 ML LIQUID UDC GT SCH ×2 (08:41→20:57)
[2020-06-16] MEDS: ACIDOPHILUS/BULGARICUS CHEW TAB GT SCH ×2 (08:41→20:57)
[2020-06-16] MEDS: DOCUSATE SODIUM 100 MG/10 ML LIQUID UDC GT SCH (08:41)
[2020-06-16] MEDS: MIRALAX 17 GM POWD.PACK GT SCH (08:42)
[2020-06-16] MEDS: POTASSIUM CHLORIDE 40 MEQ/30 ML LIQUID UDC GT SCH (08:42)
[2020-06-16] MEDS: COD LIVER OIL/ZINC OXIDE OINT 113 GM TUBE TP SCH ×2 (08:44→20:59)
[2020-06-16] MEDS: HYDROGEN PEROXIDE 3% 118 ML BOTTLE TP SCH ×2 (09:25→21:00)
[2020-06-16 18:40] VITALS: BP 122/68
--- NOTE | 2020-06-16 18:43 | NUR ---
Covid 19 test done today.per [facility] requirement.[employer] notified.
[2020-06-16 19:40] VITALS: BP 122/65
[2020-06-16] MEDS: MELATONIN 3MG TABLET GT SCH (20:57)
[2020-06-16] MEDS: MAGNESIUM COMPLEX GT SCH (20:58)
[2020-06-16] MEDS: CRANBERRY 500 MG GT SCH (20:58)
[2020-06-16] MEDS: NUTRISOURCE FIBER 4 GM PACKET GT SCH (20:59)
[2020-06-16] MEDS: PROTEIN SUPPLEMENT (PROSTAT) 30 ML LIQUID GT SCH (20:59)
[2020-06-16] MEDS: ASCORBIC ACID 500 MG TABLET GT SCH (20:59)
[2020-06-16] MEDS: RIVAROXABAN 15 MG TABLET GT SCH (21:08)
[2020-06-16] MEDS: TWOCAL HN 1,000 ML LIQUID GT PRN (23:09)
[2020-06-17] MEDS: MULTIVIT, IRON, MIN NO. 8, FA TABLET GT SCH (05:20)
[2020-06-17] MEDS: OMEPRAZOLE 20 MG CAPSULE.DR GT SCH (05:20)
[2020-06-17] MEDS: BACLOFEN 20 MG TABLET GT SCH ×3 (05:20→22:27)
[2020-06-17] MEDS: METOCLOPRAMIDE HCL 10 MG/10 ML UDC GT SCH ×3 (05:20→17:18)
[2020-06-17 07:34] VITALS: BP 95/41
[2020-06-17] MEDS: HYDROGEN PEROXIDE 3% 118 ML BOTTLE TP SCH ×2 (08:30→21:22)
[2020-06-17] MEDS: DOCUSATE SODIUM 100 MG/10 ML LIQUID UDC GT SCH (09:25)
[2020-06-17] MEDS: levETIRAcetam 500 MG/5 ML LIQUID UDC GT SCH ×2 (09:26→20:46)
[2020-06-17] MEDS: ACIDOPHILUS/BULGARICUS CHEW TAB GT SCH ×2 (09:26→20:46)
[2020-06-17] MEDS: MIRALAX 17 GM POWD.PACK GT SCH (09:27)
[2020-06-17] MEDS: POTASSIUM CHLORIDE 40 MEQ/30 ML LIQUID UDC GT SCH (09:27)
[2020-06-17] MEDS: COD LIVER OIL/ZINC OXIDE OINT 113 GM TUBE TP SCH ×2 (09:28→20:51)
[2020-06-17 20:28] VITALS: BP 111/64
[2020-06-17] MEDS: CRANBERRY 500 MG GT SCH (20:46)
[2020-06-17] MEDS: MELATONIN 3MG TABLET GT SCH (20:46)
[2020-06-17] MEDS: MAGNESIUM COMPLEX GT SCH (20:46)
[2020-06-17] MEDS: PROTEIN SUPPLEMENT (PROSTAT) 30 ML LIQUID GT SCH (20:49)
[2020-06-17] MEDS: NUTRISOURCE FIBER 4 GM PACKET GT SCH (20:49)
[2020-06-17] MEDS: ASCORBIC ACID 500 MG TABLET GT SCH (20:50)
[2020-06-17] MEDS: RIVAROXABAN 15 MG TABLET GT SCH (21:00)
[2020-06-18] MEDS: OMEPRAZOLE 20 MG CAPSULE.DR GT SCH (05:32)
[2020-06-18] MEDS: METOCLOPRAMIDE HCL 10 MG/10 ML UDC GT SCH ×4 (05:32→17:05)
[2020-06-18] MEDS: BACLOFEN 20 MG TABLET GT SCH ×3 (05:32→22:14)
[2020-06-18] MEDS: MULTIVIT, IRON, MIN NO. 8, FA TABLET GT SCH (05:32)
[2020-06-18 07:36] VITALS: BP 98/54
[2020-06-18] MEDS: HYDROGEN PEROXIDE 3% 118 ML BOTTLE TP SCH ×2 (08:41→21:27)
[2020-06-18] MEDS: DOCUSATE SODIUM 100 MG/10 ML LIQUID UDC GT SCH (08:50)
[2020-06-18] MEDS: MIRALAX 17 GM POWD.PACK GT SCH (08:51)
[2020-06-18] MEDS: levETIRAcetam 500 MG/5 ML LIQUID UDC GT SCH ×2 (08:51→20:24)
[2020-06-18] MEDS: COAL TAR TOP SCH (08:51)
[2020-06-18] MEDS: POTASSIUM CHLORIDE 40 MEQ/30 ML LIQUID UDC GT SCH (08:51)
[2020-06-18] MEDS: ACIDOPHILUS/BULGARICUS CHEW TAB GT SCH ×2 (08:51→20:23)
[2020-06-18] MEDS: COD LIVER OIL/ZINC OXIDE OINT 113 GM TUBE TP SCH ×2 (08:51→20:31)
--- NOTE | 2020-06-18 16:50 | NUR ---
INTERDISCIPLINARY PLAN OF CARE CONFERENCE was held today. Patient's sister Jeanne participated in the meeting through speaker phone. Dr. Cartagena and the Interdisciplinary Team reviewed the current plan of care in detail. RN reported on patient's medical condition. See RN IDT conference notes. PT and OT reported on patient's ongoing treatment plan. No major changes in medical condition were reported by nursing or by other disciplines. See all disciplines IDT notes and physician's progress notes for additional details. Jeanne's questions were addressed by the IDT team and Jeanne expressed understanding of the current plan of care.
[2020-06-18] MEDS: MELATONIN 3MG TABLET GT SCH (20:23)
[2020-06-18] MEDS: NUTRISOURCE FIBER 4 GM PACKET GT SCH (20:25)
[2020-06-18] MEDS: CRANBERRY 500 MG GT SCH (20:25)
[2020-06-18] MEDS: ASCORBIC ACID 500 MG TABLET GT SCH (20:25)
[2020-06-18] MEDS: MAGNESIUM COMPLEX GT SCH (20:25)
[2020-06-18] MEDS: PROTEIN SUPPLEMENT (PROSTAT) 30 ML LIQUID GT SCH (20:25)
[2020-06-18 20:26] VITALS: BP 103/58
[2020-06-18] MEDS: RIVAROXABAN 15 MG TABLET GT SCH (20:30)
[2020-06-19] MEDS: TWOCAL HN 1,000 ML LIQUID GT PRN (04:05)
[2020-06-19] MEDS: BACLOFEN 20 MG TABLET GT SCH ×3 (06:14→21:18)
[2020-06-19] MEDS: MULTIVIT, IRON, MIN NO. 8, FA TABLET GT SCH (06:14)
[2020-06-19] MEDS: METOCLOPRAMIDE HCL 10 MG/10 ML UDC GT SCH ×4 (06:14→17:13)
[2020-06-19] MEDS: OMEPRAZOLE 20 MG CAPSULE.DR GT SCH (06:14)
[2020-06-19 07:46] VITALS: BP 110/60
[2020-06-19] MEDS: HYDROGEN PEROXIDE 3% 118 ML BOTTLE TP SCH ×2 (08:15→21:00)
[2020-06-19] MEDS: DOCUSATE SODIUM 100 MG/10 ML LIQUID UDC GT SCH (08:42)
[2020-06-19] MEDS: levETIRAcetam 500 MG/5 ML LIQUID UDC GT SCH ×2 (08:45→21:00)
[2020-06-19] MEDS: MIRALAX 17 GM POWD.PACK GT SCH (08:45)
[2020-06-19] MEDS: ACIDOPHILUS/BULGARICUS CHEW TAB GT SCH ×2 (08:45→20:59)
[2020-06-19] MEDS: COD LIVER OIL/ZINC OXIDE OINT 113 GM TUBE TP SCH ×2 (08:46→21:04)
[2020-06-19] MEDS: POTASSIUM CHLORIDE 40 MEQ/30 ML LIQUID UDC GT SCH (08:46)
--- NOTE | 2020-06-19 10:00 | NUR ---
Pt's mother Jeanne notified covid19 test results negative.
--- NOTE | 2020-06-19 13:00 | NUR ---
Video chat done with pt's father, Abdi.
[2020-06-19 20:41] VITALS: BP 101/70
[2020-06-19] MEDS: MELATONIN 3MG TABLET GT SCH (21:00)
[2020-06-19] MEDS: CRANBERRY 500 MG GT SCH (21:01)
[2020-06-19] MEDS: MAGNESIUM COMPLEX GT SCH (21:01)
[2020-06-19] MEDS: NUTRISOURCE FIBER 4 GM PACKET GT SCH (21:01)
[2020-06-19] MEDS: PROTEIN SUPPLEMENT (PROSTAT) 30 ML LIQUID GT SCH (21:03)
[2020-06-19] MEDS: ASCORBIC ACID 500 MG TABLET GT SCH (21:03)
[2020-06-19] MEDS: RIVAROXABAN 15 MG TABLET GT SCH (21:03)
[2020-06-20] MEDS: METOCLOPRAMIDE HCL 10 MG/10 ML UDC GT SCH ×4 (00:51→17:18)
[2020-06-20] MEDS: MULTIVIT, IRON, MIN NO. 8, FA TABLET GT SCH (05:55)
[2020-06-20] MEDS: BACLOFEN 20 MG TABLET GT SCH ×3 (05:55→21:13)
[2020-06-20] MEDS: OMEPRAZOLE 20 MG CAPSULE.DR GT SCH (05:55)
[2020-06-20 07:48] VITALS: BP 110/60
[2020-06-20] MEDS: MIRALAX 17 GM POWD.PACK GT SCH (09:09)
[2020-06-20] MEDS: levETIRAcetam 500 MG/5 ML LIQUID UDC GT SCH ×2 (09:09→21:10)
[2020-06-20] MEDS: POTASSIUM CHLORIDE 40 MEQ/30 ML LIQUID UDC GT SCH (09:09)
[2020-06-20] MEDS: ACIDOPHILUS/BULGARICUS CHEW TAB GT SCH ×2 (09:09→21:09)
[2020-06-20] MEDS: COD LIVER OIL/ZINC OXIDE OINT 113 GM TUBE TP SCH ×2 (09:09→21:13)
[2020-06-20] MEDS: DOCUSATE SODIUM 100 MG/10 ML LIQUID UDC GT SCH (09:09)
[2020-06-20] MEDS: HYDROGEN PEROXIDE 3% 118 ML BOTTLE TP SCH ×2 (09:56→21:00)
[2020-06-20] MEDS: POLYVINYL ALCOHOL OPHT DROPS 15 ML BOTTLE EACHEYE PRN (18:08)
[2020-06-20 20:00] VITALS: BP_SYST 102; BP_SYST 106; BP_DIAS 56; BP_DIAS 58
[2020-06-20] MEDS: MELATONIN 3MG TABLET GT SCH (21:09)
[2020-06-20] MEDS: CRANBERRY 500 MG GT SCH (21:11)
[2020-06-20] MEDS: MAGNESIUM COMPLEX GT SCH (21:12)
[2020-06-20] MEDS: ASCORBIC ACID 500 MG TABLET GT SCH (21:12)
[2020-06-20] MEDS: NUTRISOURCE FIBER 4 GM PACKET GT SCH (21:12)
[2020-06-20] MEDS: PROTEIN SUPPLEMENT (PROSTAT) 30 ML LIQUID GT SCH (21:12)
[2020-06-20] MEDS: RIVAROXABAN 15 MG TABLET GT SCH (21:16)
[2020-06-21] MEDS: TWOCAL HN 1,000 ML LIQUID GT PRN (04:12)
[2020-06-21] MEDS: BACLOFEN 20 MG TABLET GT SCH ×3 (05:40→21:37)
[2020-06-21] MEDS: OMEPRAZOLE 20 MG CAPSULE.DR GT SCH (05:40)
[2020-06-21] MEDS: METOCLOPRAMIDE HCL 10 MG/10 ML UDC GT SCH ×5 (05:40→23:22)
[2020-06-21] MEDS: MULTIVIT, IRON, MIN NO. 8, FA TABLET GT SCH (05:40)
[2020-06-21 07:26] VITALS: BP 119/64
[2020-06-21] MEDS: DOCUSATE SODIUM 100 MG/10 ML LIQUID UDC GT SCH (08:37)
[2020-06-21] MEDS: MIRALAX 17 GM POWD.PACK GT SCH (08:37)
[2020-06-21] MEDS: COD LIVER OIL/ZINC OXIDE OINT 113 GM TUBE TP SCH ×2 (08:37→20:37)
[2020-06-21] MEDS: levETIRAcetam 500 MG/5 ML LIQUID UDC GT SCH ×2 (08:37→20:36)
[2020-06-21] MEDS: COAL TAR TOP SCH (08:37)
[2020-06-21] MEDS: ACIDOPHILUS/BULGARICUS CHEW TAB GT SCH ×2 (08:37→20:36)
[2020-06-21] MEDS: POTASSIUM CHLORIDE 40 MEQ/30 ML LIQUID UDC GT SCH (08:37)
[2020-06-21] MEDS: HYDROGEN PEROXIDE 3% 118 ML BOTTLE TP SCH ×2 (08:43→21:27)
[2020-06-21 19:40] VITALS: BP 106/58
[2020-06-21] MEDS: MELATONIN 3MG TABLET GT SCH (20:36)
[2020-06-21] MEDS: NUTRISOURCE FIBER 4 GM PACKET GT SCH (20:36)
[2020-06-21] MEDS: CRANBERRY 500 MG GT SCH (20:36)
[2020-06-21] MEDS: MAGNESIUM COMPLEX GT SCH (20:36)
[2020-06-21] MEDS: ASCORBIC ACID 500 MG TABLET GT SCH (20:37)
[2020-06-21] MEDS: PROTEIN SUPPLEMENT (PROSTAT) 30 ML LIQUID GT SCH (20:37)
[2020-06-21] MEDS: RIVAROXABAN 15 MG TABLET GT SCH (20:39)
[2020-06-22] MEDS: OMEPRAZOLE 20 MG CAPSULE.DR GT SCH (05:15)
[2020-06-22] MEDS: METOCLOPRAMIDE HCL 10 MG/10 ML UDC GT SCH ×4 (05:15→23:27)
[2020-06-22] MEDS: BACLOFEN 20 MG TABLET GT SCH ×3 (05:15→21:01)
[2020-06-22] MEDS: MULTIVIT, IRON, MIN NO. 8, FA TABLET GT SCH (05:16)
[2020-06-22 07:27] VITALS: BP 117/64
[2020-06-22] MEDS: POTASSIUM CHLORIDE 40 MEQ/30 ML LIQUID UDC GT SCH (08:59)
[2020-06-22] MEDS: DOCUSATE SODIUM 100 MG/10 ML LIQUID UDC GT SCH (08:59)
[2020-06-22] MEDS: MIRALAX 17 GM POWD.PACK GT SCH (08:59)
[2020-06-22] MEDS: levETIRAcetam 500 MG/5 ML LIQUID UDC GT SCH ×2 (08:59→20:57)
[2020-06-22] MEDS: COD LIVER OIL/ZINC OXIDE OINT 113 GM TUBE TP SCH ×2 (08:59→20:58)
[2020-06-22] MEDS: ACIDOPHILUS/BULGARICUS CHEW TAB GT SCH ×2 (08:59→20:57)
[2020-06-22] MEDS: HYDROGEN PEROXIDE 3% 118 ML BOTTLE TP SCH ×2 (09:00→21:21)
--- NOTE | 2020-06-22 12:45 | NUR ---
Provided video chat to pt. and her sister with no problem noted.
[2020-06-22] MEDS: MAGNESIUM COMPLEX GT SCH (20:57)
[2020-06-22] MEDS: MELATONIN 3MG TABLET GT SCH (20:57)
[2020-06-22] MEDS: CRANBERRY 500 MG GT SCH (20:57)
[2020-06-22] MEDS: NUTRISOURCE FIBER 4 GM PACKET GT SCH (20:58)
[2020-06-22] MEDS: PROTEIN SUPPLEMENT (PROSTAT) 30 ML LIQUID GT SCH (20:58)
[2020-06-22] MEDS: ASCORBIC ACID 500 MG TABLET GT SCH (20:58)
[2020-06-22] MEDS: RIVAROXABAN 15 MG TABLET GT SCH (21:50)
[2020-06-22 23:06] VITALS: BP 114/67
[2020-06-23] MEDS: BACLOFEN 20 MG TABLET GT SCH ×3 (06:14→21:48)
[2020-06-23] MEDS: METOCLOPRAMIDE HCL 10 MG/10 ML UDC GT SCH ×3 (06:14→17:15)
[2020-06-23] MEDS: MULTIVIT, IRON, MIN NO. 8, FA TABLET GT SCH (06:14)
[2020-06-23] MEDS: OMEPRAZOLE 20 MG CAPSULE.DR GT SCH (06:14)
[2020-06-23] MEDS: HYDROGEN PEROXIDE 3% 118 ML BOTTLE TP SCH ×2 (07:17→20:52)
[2020-06-23 07:36] VITALS: BP 96/58
[2020-06-23] MEDS: ACIDOPHILUS/BULGARICUS CHEW TAB GT SCH ×2 (08:38→21:47)
[2020-06-23] MEDS: MIRALAX 17 GM POWD.PACK GT SCH (08:38)
[2020-06-23] MEDS: levETIRAcetam 500 MG/5 ML LIQUID UDC GT SCH ×2 (08:38→21:47)
[2020-06-23] MEDS: DOCUSATE SODIUM 100 MG/10 ML LIQUID UDC GT SCH (08:38)
[2020-06-23] MEDS: COD LIVER OIL/ZINC OXIDE OINT 113 GM TUBE TP SCH ×2 (08:38→21:48)
[2020-06-23] MEDS: POTASSIUM CHLORIDE 40 MEQ/30 ML LIQUID UDC GT SCH (08:38)
--- NOTE | 2020-06-23 11:25 | NUR ---
video chat provided with pt. and family (father). No issue verbalized by the family. Will continue to monitor.
[2020-06-23] MEDS: CRANBERRY 500 MG GT SCH (21:47)
[2020-06-23] MEDS: MELATONIN 3MG TABLET GT SCH (21:47)
[2020-06-23] MEDS: PROTEIN SUPPLEMENT (PROSTAT) 30 ML LIQUID GT SCH (21:48)
[2020-06-23] MEDS: ASCORBIC ACID 500 MG TABLET GT SCH (21:48)
[2020-06-23] MEDS: MAGNESIUM COMPLEX GT SCH (21:48)
[2020-06-23] MEDS: NUTRISOURCE FIBER 4 GM PACKET GT SCH (21:48)
[2020-06-23] MEDS: RIVAROXABAN 15 MG TABLET GT SCH (21:50)
[2020-06-23 22:00] VITALS: BP 114/60
[2020-06-24] MEDS: METOCLOPRAMIDE HCL 10 MG/10 ML UDC GT SCH ×4 (00:11→17:27)
[2020-06-24] MEDS: OMEPRAZOLE 20 MG CAPSULE.DR GT SCH (05:21)
[2020-06-24] MEDS: MULTIVIT, IRON, MIN NO. 8, FA TABLET GT SCH (05:21)
[2020-06-24] MEDS: BACLOFEN 20 MG TABLET GT SCH ×3 (05:21→21:35)
--- NOTE | 2020-06-24 07:14 | NUR ---
Will test patient for COVID-19 today.
[2020-06-24 07:30] VITALS: BP 99/62
[2020-06-24] MEDS: ACIDOPHILUS/BULGARICUS CHEW TAB GT SCH ×2 (09:13→20:14)
[2020-06-24] MEDS: POTASSIUM CHLORIDE 40 MEQ/30 ML LIQUID UDC GT SCH (09:13)
[2020-06-24] MEDS: MIRALAX 17 GM POWD.PACK GT SCH (09:13)
[2020-06-24] MEDS: DOCUSATE SODIUM 100 MG/10 ML LIQUID UDC GT SCH (09:13)
[2020-06-24] MEDS: levETIRAcetam 500 MG/5 ML LIQUID UDC GT SCH ×2 (09:13→20:15)
[2020-06-24] MEDS: COD LIVER OIL/ZINC OXIDE OINT 113 GM TUBE TP SCH ×2 (09:13→20:16)
[2020-06-24] MEDS: HYDROGEN PEROXIDE 3% 118 ML BOTTLE TP SCH ×2 (09:57→21:29)
--- NOTE | 2020-06-24 12:30 | NUR ---
SEEN BY [place] Trotter AND WITH NNO.
--- NOTE | 2020-06-24 15:29 | NUR ---
Video call provided with pt. and family. Verbalized no concert. Family was appreciative of the service rendered by the facility [facility] nursing. Will continue to monitor.
--- NOTE | 2020-06-24 17:16 | NUR ---
NO COVID 19 TEST REQUIRED TODAY BY [facility]. AND PT'S FATHER AWARE.
[2020-06-24 20:00] VITALS: BP 107/71
[2020-06-24] MEDS: MELATONIN 3MG TABLET GT SCH (20:14)
[2020-06-24] MEDS: RIVAROXABAN 15 MG TABLET GT SCH (20:14)
[2020-06-24] MEDS: NUTRISOURCE FIBER 4 GM PACKET GT SCH (20:15)
[2020-06-24] MEDS: CRANBERRY 500 MG GT SCH (20:15)
[2020-06-24] MEDS: MAGNESIUM COMPLEX GT SCH (20:15)
[2020-06-24] MEDS: ASCORBIC ACID 500 MG TABLET GT SCH (20:16)
[2020-06-24] MEDS: PROTEIN SUPPLEMENT (PROSTAT) 30 ML LIQUID GT SCH (20:16)
[2020-06-25] MEDS: METOCLOPRAMIDE HCL 10 MG/10 ML UDC GT SCH ×5 (00:53→23:55)
[2020-06-25] MEDS: TWOCAL HN 1,000 ML LIQUID GT PRN (04:28)
[2020-06-25] MEDS: OMEPRAZOLE 20 MG CAPSULE.DR GT SCH (05:12)
[2020-06-25] MEDS: BACLOFEN 20 MG TABLET GT SCH ×3 (05:12→21:50)
[2020-06-25] MEDS: MULTIVIT, IRON, MIN NO. 8, FA TABLET GT SCH (05:12)
[2020-06-25] MEDS: HYDROGEN PEROXIDE 3% 118 ML BOTTLE TP SCH ×2 (07:25→21:03)
[2020-06-25 07:47] VITALS: BP 112/68
[2020-06-25] MEDS: ACIDOPHILUS/BULGARICUS CHEW TAB GT SCH ×2 (08:49→20:29)
[2020-06-25] MEDS: MIRALAX 17 GM POWD.PACK GT SCH (08:49)
[2020-06-25] MEDS: levETIRAcetam 500 MG/5 ML LIQUID UDC GT SCH ×2 (08:49→20:30)
[2020-06-25] MEDS: DOCUSATE SODIUM 100 MG/10 ML LIQUID UDC GT SCH (08:49)
[2020-06-25] MEDS: POTASSIUM CHLORIDE 40 MEQ/30 ML LIQUID UDC GT SCH (08:49)
[2020-06-25] MEDS: COAL TAR TOP SCH (08:49)
[2020-06-25] MEDS: COD LIVER OIL/ZINC OXIDE OINT 113 GM TUBE TP SCH ×2 (08:49→20:30)
[2020-06-25 20:00] VITALS: BP 118/68
[2020-06-25] MEDS: RIVAROXABAN 15 MG TABLET GT SCH (20:26)
[2020-06-25] MEDS: CRANBERRY 500 MG GT SCH (20:30)
[2020-06-25] MEDS: PROTEIN SUPPLEMENT (PROSTAT) 30 ML LIQUID GT SCH (20:30)
[2020-06-25] MEDS: MELATONIN 3MG TABLET GT SCH (20:30)
[2020-06-25] MEDS: ASCORBIC ACID 500 MG TABLET GT SCH (20:30)
[2020-06-25] MEDS: MAGNESIUM COMPLEX GT SCH (20:30)
[2020-06-25] MEDS: NUTRISOURCE FIBER 4 GM PACKET GT SCH (20:30)
[2020-06-26] MEDS: BACLOFEN 20 MG TABLET GT SCH ×3 (05:00→21:25)
[2020-06-26] MEDS: OMEPRAZOLE 20 MG CAPSULE.DR GT SCH (05:00)
[2020-06-26] MEDS: METOCLOPRAMIDE HCL 10 MG/10 ML UDC GT SCH ×3 (05:00→17:00)
[2020-06-26] MEDS: MULTIVIT, IRON, MIN NO. 8, FA TABLET GT SCH (05:00)
[2020-06-26 07:32] VITALS: BP 117/74
[2020-06-26] MEDS: DOCUSATE SODIUM 100 MG/10 ML LIQUID UDC GT SCH (08:24)
[2020-06-26] MEDS: levETIRAcetam 500 MG/5 ML LIQUID UDC GT SCH ×2 (08:25→21:24)
[2020-06-26] MEDS: ACIDOPHILUS/BULGARICUS CHEW TAB GT SCH ×2 (08:25→21:24)
[2020-06-26] MEDS: POTASSIUM CHLORIDE 40 MEQ/30 ML LIQUID UDC GT SCH (08:26)
[2020-06-26] MEDS: MIRALAX 17 GM POWD.PACK GT SCH (08:27)
[2020-06-26] MEDS: COD LIVER OIL/ZINC OXIDE OINT 113 GM TUBE TP SCH ×2 (09:00→21:22)
[2020-06-26] MEDS: HYDROGEN PEROXIDE 3% 118 ML BOTTLE TP SCH ×2 (09:17→20:51)
--- NOTE | 2020-06-26 11:30 | NUR ---
Video chat done with pt's father Abdi.
[2020-06-26 20:00] VITALS: BP 112/71
[2020-06-26] MEDS: RIVAROXABAN 15 MG TABLET GT SCH (21:23)
[2020-06-26] MEDS: MELATONIN 3MG TABLET GT SCH (21:24)
[2020-06-26] MEDS: CRANBERRY 500 MG GT SCH (21:24)
[2020-06-26] MEDS: ASCORBIC ACID 500 MG TABLET GT SCH (21:25)
[2020-06-26] MEDS: NUTRISOURCE FIBER 4 GM PACKET GT SCH (21:25)
[2020-06-26] MEDS: PROTEIN SUPPLEMENT (PROSTAT) 30 ML LIQUID GT SCH (21:25)
[2020-06-26] MEDS: MAGNESIUM COMPLEX GT SCH (21:25)
[2020-06-27] MEDS: TWOCAL HN 1,000 ML LIQUID GT PRN (03:13)
[2020-06-27] MEDS: METOCLOPRAMIDE HCL 10 MG/10 ML UDC GT SCH ×4 (05:02→17:17)
[2020-06-27] MEDS: BACLOFEN 20 MG TABLET GT SCH ×3 (05:02→22:08)
[2020-06-27] MEDS: MULTIVIT, IRON, MIN NO. 8, FA TABLET GT SCH (05:02)
[2020-06-27] MEDS: OMEPRAZOLE 20 MG CAPSULE.DR GT SCH (05:02)
[2020-06-27 07:20] VITALS: BP 111/64
[2020-06-27] MEDS: HYDROGEN PEROXIDE 3% 118 ML BOTTLE TP SCH ×2 (09:00→19:24)
[2020-06-27] MEDS: DOCUSATE SODIUM 100 MG/10 ML LIQUID UDC GT SCH (09:04)
[2020-06-27] MEDS: levETIRAcetam 500 MG/5 ML LIQUID UDC GT SCH ×2 (09:05→20:44)
[2020-06-27] MEDS: COD LIVER OIL/ZINC OXIDE OINT 113 GM TUBE TP SCH ×2 (09:05→20:46)
[2020-06-27] MEDS: POTASSIUM CHLORIDE 40 MEQ/30 ML LIQUID UDC GT SCH (09:05)
[2020-06-27] MEDS: MIRALAX 17 GM POWD.PACK GT SCH (09:05)
[2020-06-27] MEDS: ACIDOPHILUS/BULGARICUS CHEW TAB GT SCH ×2 (09:05→20:44)
[2020-06-27 20:00] VITALS: BP 107/61
[2020-06-27] MEDS: MELATONIN 3MG TABLET GT SCH (20:44)
[2020-06-27] MEDS: CRANBERRY 500 MG GT SCH (20:44)
[2020-06-27] MEDS: MAGNESIUM COMPLEX GT SCH (20:44)
[2020-06-27] MEDS: PROTEIN SUPPLEMENT (PROSTAT) 30 ML LIQUID GT SCH (20:45)
[2020-06-27] MEDS: NUTRISOURCE FIBER 4 GM PACKET GT SCH (20:45)
[2020-06-27] MEDS: ASCORBIC ACID 500 MG TABLET GT SCH (20:46)
[2020-06-27] MEDS: RIVAROXABAN 15 MG TABLET GT SCH (20:58)
[2020-06-28] MEDS: METOCLOPRAMIDE HCL 10 MG/10 ML UDC GT SCH ×4 (00:44→17:39)
[2020-06-28] MEDS: MULTIVIT, IRON, MIN NO. 8, FA TABLET GT SCH (05:14)
[2020-06-28] MEDS: BACLOFEN 20 MG TABLET GT SCH ×3 (05:14→21:01)
[2020-06-28] MEDS: OMEPRAZOLE 20 MG CAPSULE.DR GT SCH (05:14)
[2020-06-28 07:54] VITALS: BP 123/72
[2020-06-28] MEDS: HYDROGEN PEROXIDE 3% 118 ML BOTTLE TP SCH ×2 (09:00→21:00)
[2020-06-28] MEDS: DOCUSATE SODIUM 100 MG/10 ML LIQUID UDC GT SCH (09:38)
[2020-06-28] MEDS: ACIDOPHILUS/BULGARICUS CHEW TAB GT SCH ×2 (09:38→20:30)
[2020-06-28] MEDS: levETIRAcetam 500 MG/5 ML LIQUID UDC GT SCH ×2 (09:38→20:30)
[2020-06-28] MEDS: COD LIVER OIL/ZINC OXIDE OINT 113 GM TUBE TP SCH ×2 (09:39→20:30)
[2020-06-28] MEDS: COAL TAR TOP SCH (09:39)
[2020-06-28] MEDS: MIRALAX 17 GM POWD.PACK GT SCH (09:39)
[2020-06-28] MEDS: POTASSIUM CHLORIDE 40 MEQ/30 ML LIQUID UDC GT SCH (09:39)
[2020-06-28 20:00] VITALS: BP 128/70
[2020-06-28] MEDS: RIVAROXABAN 15 MG TABLET GT SCH (20:23)
[2020-06-28] MEDS: MAGNESIUM COMPLEX GT SCH (20:30)
[2020-06-28] MEDS: ASCORBIC ACID 500 MG TABLET GT SCH (20:30)
[2020-06-28] MEDS: NUTRISOURCE FIBER 4 GM PACKET GT SCH (20:30)
[2020-06-28] MEDS: PROTEIN SUPPLEMENT (PROSTAT) 30 ML LIQUID GT SCH (20:30)
[2020-06-28] MEDS: CRANBERRY 500 MG GT SCH (20:30)
[2020-06-28] MEDS: MELATONIN 3MG TABLET GT SCH (20:30)
[2020-06-29] MEDS: METOCLOPRAMIDE HCL 10 MG/10 ML UDC GT SCH ×5 (00:29→23:27)
[2020-06-29] MEDS: TWOCAL HN 1,000 ML LIQUID GT PRN (02:00)
[2020-06-29] MEDS: MULTIVIT, IRON, MIN NO. 8, FA TABLET GT SCH (05:39)
[2020-06-29] MEDS: BACLOFEN 20 MG TABLET GT SCH ×3 (05:39→22:09)
[2020-06-29] MEDS: OMEPRAZOLE 20 MG CAPSULE.DR GT SCH (05:39)
[2020-06-29 07:51] VITALS: BP 119/62
[2020-06-29] MEDS: DOCUSATE SODIUM 100 MG/10 ML LIQUID UDC GT SCH (08:35)
[2020-06-29] MEDS: levETIRAcetam 500 MG/5 ML LIQUID UDC GT SCH ×2 (08:36→20:39)
[2020-06-29] MEDS: POTASSIUM CHLORIDE 40 MEQ/30 ML LIQUID UDC GT SCH (08:36)
[2020-06-29] MEDS: ACIDOPHILUS/BULGARICUS CHEW TAB GT SCH ×2 (08:36→20:38)
[2020-06-29] MEDS: MIRALAX 17 GM POWD.PACK GT SCH (08:36)
[2020-06-29] MEDS: COD LIVER OIL/ZINC OXIDE OINT 113 GM TUBE TP SCH ×2 (08:37→20:42)
[2020-06-29] MEDS: HYDROGEN PEROXIDE 3% 118 ML BOTTLE TP SCH ×2 (09:03→21:17)
[2020-06-29 20:15] VITALS: BP 104/54
[2020-06-29] MEDS: RIVAROXABAN 15 MG TABLET GT SCH (20:37)
[2020-06-29] MEDS: MELATONIN 3MG TABLET GT SCH (20:38)
[2020-06-29] MEDS: CRANBERRY 500 MG GT SCH (20:39)
[2020-06-29] MEDS: MAGNESIUM COMPLEX GT SCH (20:40)
[2020-06-29] MEDS: NUTRISOURCE FIBER 4 GM PACKET GT SCH (20:41)
[2020-06-29] MEDS: PROTEIN SUPPLEMENT (PROSTAT) 30 ML LIQUID GT SCH (20:41)
[2020-06-29] MEDS: ASCORBIC ACID 500 MG TABLET GT SCH (20:42)
[2020-06-30] MEDS: BACLOFEN 20 MG TABLET GT SCH ×3 (05:19→21:57)
[2020-06-30] MEDS: OMEPRAZOLE 20 MG CAPSULE.DR GT SCH (05:19)
[2020-06-30] MEDS: METOCLOPRAMIDE HCL 10 MG/10 ML UDC GT SCH ×3 (05:19→17:25)
[2020-06-30] MEDS: MULTIVIT, IRON, MIN NO. 8, FA TABLET GT SCH (05:19)
[2020-06-30 07:40] VITALS: BP 92/56
[2020-06-30] MEDS: ACIDOPHILUS/BULGARICUS CHEW TAB GT SCH ×2 (08:57→21:57)
[2020-06-30] MEDS: DOCUSATE SODIUM 100 MG/10 ML LIQUID UDC GT SCH (08:57)
[2020-06-30] MEDS: levETIRAcetam 500 MG/5 ML LIQUID UDC GT SCH ×2 (08:58→21:57)
[2020-06-30] MEDS: COD LIVER OIL/ZINC OXIDE OINT 113 GM TUBE TP SCH ×2 (08:59→21:57)
[2020-06-30] MEDS: MIRALAX 17 GM POWD.PACK GT SCH (08:59)
[2020-06-30] MEDS: POTASSIUM CHLORIDE 40 MEQ/30 ML LIQUID UDC GT SCH (08:59)
[2020-06-30] MEDS: HYDROGEN PEROXIDE 3% 118 ML BOTTLE TP SCH ×2 (09:00→21:41)
--- NOTE | 2020-06-30 11:09 | NUR ---
zoom provided to father.
[2020-06-30 20:25] VITALS: BP 119/64
[2020-06-30] MEDS: RIVAROXABAN 15 MG TABLET GT SCH (21:00)
[2020-06-30] MEDS: ASCORBIC ACID 500 MG TABLET GT SCH (21:57)
[2020-06-30] MEDS: MAGNESIUM COMPLEX GT SCH (21:57)
[2020-06-30] MEDS: CRANBERRY 500 MG GT SCH (21:57)
[2020-06-30] MEDS: NUTRISOURCE FIBER 4 GM PACKET GT SCH (21:57)
[2020-06-30] MEDS: PROTEIN SUPPLEMENT (PROSTAT) 30 ML LIQUID GT SCH (21:57)
[2020-06-30] MEDS: MELATONIN 3MG TABLET GT SCH (21:57)
[2020-07-01] MEDS: METOCLOPRAMIDE HCL 10 MG/10 ML UDC GT SCH ×4 (00:43→17:29)
[2020-07-01] MEDS: BACLOFEN 20 MG TABLET GT SCH ×3 (06:20→22:46)
[2020-07-01] MEDS: MULTIVIT, IRON, MIN NO. 8, FA TABLET GT SCH (06:20)
[2020-07-01] MEDS: OMEPRAZOLE 20 MG CAPSULE.DR GT SCH (06:20)
[2020-07-01] MEDS: TWOCAL HN 1,000 ML LIQUID GT PRN (07:09)
[2020-07-01 07:48] VITALS: BP 91/49
[2020-07-01] MEDS: ACIDOPHILUS/BULGARICUS CHEW TAB GT SCH ×2 (08:42→21:00)
[2020-07-01] MEDS: DOCUSATE SODIUM 100 MG/10 ML LIQUID UDC GT SCH (08:42)
[2020-07-01] MEDS: POTASSIUM CHLORIDE 40 MEQ/30 ML LIQUID UDC GT SCH (08:43)
[2020-07-01] MEDS: levETIRAcetam 500 MG/5 ML LIQUID UDC GT SCH ×2 (08:43→21:00)
[2020-07-01] MEDS: MIRALAX 17 GM POWD.PACK GT SCH (08:43)
[2020-07-01] MEDS: COD LIVER OIL/ZINC OXIDE OINT 113 GM TUBE TP SCH ×2 (08:44→21:00)
[2020-07-01] MEDS: HYDROGEN PEROXIDE 3% 118 ML BOTTLE TP SCH ×2 (09:00→19:03)
--- NOTE | 2020-07-01 15:41 | NUR ---
Sridhar Bear notified, Covid19 test will be done today. Addendum: 07/01/20 at 1600 by MOR BAINS RN Error on above entry.
--- NOTE | 2020-07-01 16:00 | NUR ---
Mother notified covid19 test will be done today.
--- NOTE | 2020-07-01 17:42 | NUR ---
zoom provided to mother.
[2020-07-01 20:15] VITALS: BP 118/62
[2020-07-01] MEDS: CRANBERRY 500 MG GT SCH (21:00)
[2020-07-01] MEDS: ASCORBIC ACID 500 MG TABLET GT SCH (21:00)
[2020-07-01] MEDS: MELATONIN 3MG TABLET GT SCH (21:00)
[2020-07-01] MEDS: RIVAROXABAN 15 MG TABLET GT SCH (21:00)
[2020-07-01] MEDS: NUTRISOURCE FIBER 4 GM PACKET GT SCH (21:00)
[2020-07-01] MEDS: MAGNESIUM COMPLEX GT SCH (21:00)
[2020-07-01] MEDS: PROTEIN SUPPLEMENT (PROSTAT) 30 ML LIQUID GT SCH (21:00)
[2020-07-02] MEDS: METOCLOPRAMIDE HCL 10 MG/10 ML UDC GT SCH ×5 (00:29→23:28)
[2020-07-02] MEDS: BACLOFEN 20 MG TABLET GT SCH ×3 (06:19→22:33)
[2020-07-02] MEDS: MULTIVIT, IRON, MIN NO. 8, FA TABLET GT SCH (06:19)
[2020-07-02] MEDS: OMEPRAZOLE 20 MG CAPSULE.DR GT SCH (06:19)
[2020-07-02 07:41] VITALS: BP 96/60
[2020-07-02] MEDS: ACIDOPHILUS/BULGARICUS CHEW TAB GT SCH ×2 (09:01→20:20)
[2020-07-02] MEDS: COD LIVER OIL/ZINC OXIDE OINT 113 GM TUBE TP SCH ×2 (09:01→20:31)
[2020-07-02] MEDS: levETIRAcetam 500 MG/5 ML LIQUID UDC GT SCH ×2 (09:01→20:21)
[2020-07-02] MEDS: POTASSIUM CHLORIDE 40 MEQ/30 ML LIQUID UDC GT SCH (09:01)
[2020-07-02] MEDS: DOCUSATE SODIUM 100 MG/10 ML LIQUID UDC GT SCH (09:01)
[2020-07-02] MEDS: MIRALAX 17 GM POWD.PACK GT SCH (09:01)
[2020-07-02] MEDS: COAL TAR TOP SCH (09:01)
[2020-07-02] MEDS: HYDROGEN PEROXIDE 3% 118 ML BOTTLE TP SCH ×2 (09:39→21:15)
--- NOTE | 2020-07-02 15:00 | NUR ---
Provided video chat to pt. and her sister with no problem noted, pt remains comfortable, all needs attended and anticipated.
[2020-07-02 20:20] VITALS: BP 117/70
[2020-07-02] MEDS: MELATONIN 3MG TABLET GT SCH (20:21)
[2020-07-02] MEDS: CRANBERRY 500 MG GT SCH (20:22)
[2020-07-02] MEDS: PROTEIN SUPPLEMENT (PROSTAT) 30 ML LIQUID GT SCH (20:26)
[2020-07-02] MEDS: ASCORBIC ACID 500 MG TABLET GT SCH (20:26)
[2020-07-02] MEDS: NUTRISOURCE FIBER 4 GM PACKET GT SCH (20:26)
[2020-07-02] MEDS: MAGNESIUM COMPLEX GT SCH (20:26)
[2020-07-02] MEDS: RIVAROXABAN 15 MG TABLET GT SCH (20:32)
[2020-07-03] MEDS: TWOCAL HN 1,000 ML LIQUID GT PRN (00:54)
[2020-07-03] MEDS: OMEPRAZOLE 20 MG CAPSULE.DR GT SCH (05:31)
[2020-07-03] MEDS: BACLOFEN 20 MG TABLET GT SCH ×3 (05:31→21:53)
[2020-07-03] MEDS: MULTIVIT, IRON, MIN NO. 8, FA TABLET GT SCH (05:31)
[2020-07-03] MEDS: METOCLOPRAMIDE HCL 10 MG/10 ML UDC GT SCH ×3 (05:31→17:35)
[2020-07-03 07:44] VITALS: BP 110/60
[2020-07-03] MEDS: HYDROGEN PEROXIDE 3% 118 ML BOTTLE TP SCH ×2 (09:00→21:15)
[2020-07-03] MEDS: DOCUSATE SODIUM 100 MG/10 ML LIQUID UDC GT SCH (09:34)
[2020-07-03] MEDS: COD LIVER OIL/ZINC OXIDE OINT 113 GM TUBE TP SCH ×2 (09:34→20:31)
[2020-07-03] MEDS: levETIRAcetam 500 MG/5 ML LIQUID UDC GT SCH ×2 (09:34→20:27)
[2020-07-03] MEDS: MIRALAX 17 GM POWD.PACK GT SCH (09:34)
[2020-07-03] MEDS: POTASSIUM CHLORIDE 40 MEQ/30 ML LIQUID UDC GT SCH (09:34)
[2020-07-03] MEDS: ACIDOPHILUS/BULGARICUS CHEW TAB GT SCH ×2 (09:34→20:27)
--- NOTE | 2020-07-03 10:00 | NUR ---
Pt's father notified Covid 19 result negative.
--- NOTE | 2020-07-03 11:00 | NUR ---
Video chat provided to pt. and her father with no problem noted, pt. remains comfortable, all needs attended and anticipated.
[2020-07-03 20:00] VITALS: BP 104/69
[2020-07-03] MEDS: MELATONIN 3MG TABLET GT SCH (20:27)
[2020-07-03] MEDS: MAGNESIUM COMPLEX GT SCH (20:28)
[2020-07-03] MEDS: CRANBERRY 500 MG GT SCH (20:28)
[2020-07-03] MEDS: NUTRISOURCE FIBER 4 GM PACKET GT SCH (20:28)
[2020-07-03] MEDS: PROTEIN SUPPLEMENT (PROSTAT) 30 ML LIQUID GT SCH (20:30)
[2020-07-03] MEDS: ASCORBIC ACID 500 MG TABLET GT SCH (20:30)
[2020-07-03] MEDS: RIVAROXABAN 15 MG TABLET GT SCH (20:31)
[2020-07-04] MEDS: METOCLOPRAMIDE HCL 10 MG/10 ML UDC GT SCH ×4 (00:13→17:15)
[2020-07-04] MEDS: BACLOFEN 20 MG TABLET GT SCH ×3 (06:07→21:54)
[2020-07-04] MEDS: OMEPRAZOLE 20 MG CAPSULE.DR GT SCH (06:07)
[2020-07-04] MEDS: MULTIVIT, IRON, MIN NO. 8, FA TABLET GT SCH (06:07)
[2020-07-04] MEDS: HYDROGEN PEROXIDE 3% 118 ML BOTTLE TP SCH ×2 (07:36→20:57)
[2020-07-04 07:44] VITALS: BP 103/59
[2020-07-04] MEDS: DOCUSATE SODIUM 100 MG/10 ML LIQUID UDC GT SCH (08:46)
[2020-07-04] MEDS: ACIDOPHILUS/BULGARICUS CHEW TAB GT SCH ×2 (08:47→20:12)
[2020-07-04] MEDS: levETIRAcetam 500 MG/5 ML LIQUID UDC GT SCH ×2 (08:48→20:12)
[2020-07-04] MEDS: MIRALAX 17 GM POWD.PACK GT SCH (08:48)
[2020-07-04] MEDS: POTASSIUM CHLORIDE 40 MEQ/30 ML LIQUID UDC GT SCH (08:49)
[2020-07-04] MEDS: COD LIVER OIL/ZINC OXIDE OINT 113 GM TUBE TP SCH ×2 (08:49→20:14)
--- NOTE | 2020-07-04 12:00 | NUR ---
patient in bed, no s/s of any distress noted. video chat done with pt's father today.
[2020-07-04 20:00] VITALS: BP 109/67
[2020-07-04] MEDS: MELATONIN 3MG TABLET GT SCH (20:12)
[2020-07-04] MEDS: NUTRISOURCE FIBER 4 GM PACKET GT SCH (20:13)
[2020-07-04] MEDS: ASCORBIC ACID 500 MG TABLET GT SCH (20:13)
[2020-07-04] MEDS: PROTEIN SUPPLEMENT (PROSTAT) 30 ML LIQUID GT SCH (20:13)
[2020-07-04] MEDS: MAGNESIUM COMPLEX GT SCH (20:13)
[2020-07-04] MEDS: CRANBERRY 500 MG GT SCH (20:13)
[2020-07-04] MEDS: RIVAROXABAN 15 MG TABLET GT SCH (20:14)
[2020-07-05] MEDS: METOCLOPRAMIDE HCL 10 MG/10 ML UDC GT SCH ×5 (00:44→23:11)
[2020-07-05] MEDS: TWOCAL HN 1,000 ML LIQUID GT PRN (03:08)
[2020-07-05] MEDS: MULTIVIT, IRON, MIN NO. 8, FA TABLET GT SCH (05:31)
[2020-07-05] MEDS: OMEPRAZOLE 20 MG CAPSULE.DR GT SCH (05:31)
[2020-07-05] MEDS: BACLOFEN 20 MG TABLET GT SCH ×3 (05:31→21:17)
[2020-07-05 07:50] VITALS: BP 96/56
[2020-07-05] MEDS: ACIDOPHILUS/BULGARICUS CHEW TAB GT SCH ×2 (08:44→20:51)
[2020-07-05] MEDS: DOCUSATE SODIUM 100 MG/10 ML LIQUID UDC GT SCH (08:44)
[2020-07-05] MEDS: levETIRAcetam 500 MG/5 ML LIQUID UDC GT SCH ×2 (08:44→20:51)
[2020-07-05] MEDS: POTASSIUM CHLORIDE 40 MEQ/30 ML LIQUID UDC GT SCH (08:45)
[2020-07-05] MEDS: COAL TAR TOP SCH (08:45)
[2020-07-05] MEDS: COD LIVER OIL/ZINC OXIDE OINT 113 GM TUBE TP SCH ×2 (08:45→20:51)
[2020-07-05] MEDS: MIRALAX 17 GM POWD.PACK GT SCH (08:45)
[2020-07-05] MEDS: HYDROGEN PEROXIDE 3% 118 ML BOTTLE TP SCH ×2 (09:25→21:34)
--- NOTE | 2020-07-05 11:00 | NUR ---
zoom provided for patient with father.
[2020-07-05 19:40] VITALS: BP 101/55
[2020-07-05] MEDS: MAGNESIUM COMPLEX GT SCH (20:51)
[2020-07-05] MEDS: CRANBERRY 500 MG GT SCH (20:51)
[2020-07-05] MEDS: NUTRISOURCE FIBER 4 GM PACKET GT SCH (20:51)
[2020-07-05] MEDS: MELATONIN 3MG TABLET GT SCH (20:51)
[2020-07-05] MEDS: ASCORBIC ACID 500 MG TABLET GT SCH (20:51)
[2020-07-05] MEDS: PROTEIN SUPPLEMENT (PROSTAT) 30 ML LIQUID GT SCH (20:51)
[2020-07-05] MEDS: RIVAROXABAN 15 MG TABLET GT SCH (20:57)
[2020-07-06] MEDS: MULTIVIT, IRON, MIN NO. 8, FA TABLET GT SCH (05:53)
[2020-07-06] MEDS: OMEPRAZOLE 20 MG CAPSULE.DR GT SCH (05:53)
[2020-07-06] MEDS: METOCLOPRAMIDE HCL 10 MG/10 ML UDC GT SCH ×4 (05:53→23:26)
[2020-07-06] MEDS: BACLOFEN 20 MG TABLET GT SCH ×3 (05:53→21:19)
[2020-07-06 07:50] VITALS: BP 104/63
[2020-07-06] MEDS: levETIRAcetam 500 MG/5 ML LIQUID UDC GT SCH ×2 (08:03→20:35)
[2020-07-06] MEDS: COD LIVER OIL/ZINC OXIDE OINT 113 GM TUBE TP SCH ×2 (08:03→20:35)
[2020-07-06] MEDS: POTASSIUM CHLORIDE 40 MEQ/30 ML LIQUID UDC GT SCH (08:03)
[2020-07-06] MEDS: MIRALAX 17 GM POWD.PACK GT SCH (08:03)
[2020-07-06] MEDS: ACIDOPHILUS/BULGARICUS CHEW TAB GT SCH ×2 (08:03→20:35)
[2020-07-06] MEDS: DOCUSATE SODIUM 100 MG/10 ML LIQUID UDC GT SCH (08:03)
[2020-07-06] MEDS: HYDROGEN PEROXIDE 3% 118 ML BOTTLE TP SCH ×2 (09:11→21:34)
--- NOTE | 2020-07-06 11:00 | NUR ---
zoom provided for patient with father.
[2020-07-06 19:24] VITALS: BP 105/60
[2020-07-06] MEDS: NUTRISOURCE FIBER 4 GM PACKET GT SCH (20:35)
[2020-07-06] MEDS: MAGNESIUM COMPLEX GT SCH (20:35)
[2020-07-06] MEDS: PROTEIN SUPPLEMENT (PROSTAT) 30 ML LIQUID GT SCH (20:35)
[2020-07-06] MEDS: CRANBERRY 500 MG GT SCH (20:35)
[2020-07-06] MEDS: ASCORBIC ACID 500 MG TABLET GT SCH (20:35)
[2020-07-06] MEDS: MELATONIN 3MG TABLET GT SCH (20:35)
[2020-07-06] MEDS: RIVAROXABAN 15 MG TABLET GT SCH (20:51)
[2020-07-07] MEDS: TWOCAL HN 1,000 ML LIQUID GT PRN (02:56)
[2020-07-07] MEDS: BACLOFEN 20 MG TABLET GT SCH ×3 (05:29→21:13)
[2020-07-07] MEDS: METOCLOPRAMIDE HCL 10 MG/10 ML UDC GT SCH ×4 (05:29→23:16)
[2020-07-07] MEDS: OMEPRAZOLE 20 MG CAPSULE.DR GT SCH (05:29)
[2020-07-07] MEDS: MULTIVIT, IRON, MIN NO. 8, FA TABLET GT SCH (05:29)
[2020-07-07 07:51] VITALS: BP 108/68
[2020-07-07] MEDS: HYDROGEN PEROXIDE 3% 118 ML BOTTLE TP SCH ×2 (08:06→21:16)
[2020-07-07] MEDS: levETIRAcetam 500 MG/5 ML LIQUID UDC GT SCH ×2 (09:16→20:47)
[2020-07-07] MEDS: ACIDOPHILUS/BULGARICUS CHEW TAB GT SCH ×2 (09:16→20:47)
[2020-07-07] MEDS: COD LIVER OIL/ZINC OXIDE OINT 113 GM TUBE TP SCH ×2 (09:16→20:47)
[2020-07-07] MEDS: MIRALAX 17 GM POWD.PACK GT SCH (09:16)
[2020-07-07] MEDS: DOCUSATE SODIUM 100 MG/10 ML LIQUID UDC GT SCH (09:16)
[2020-07-07] MEDS: POTASSIUM CHLORIDE 40 MEQ/30 ML LIQUID UDC GT SCH (09:16)
--- NOTE | 2020-07-07 13:39 | NUR ---
Video call provided with the pt. and family(sister). No complaints verbalized by the family. Will continue to monitor.
[2020-07-07 20:19] VITALS: BP 110/67
[2020-07-07] MEDS: MELATONIN 3MG TABLET GT SCH (20:47)
[2020-07-07] MEDS: CRANBERRY 500 MG GT SCH (20:47)
[2020-07-07] MEDS: MAGNESIUM COMPLEX GT SCH (20:47)
[2020-07-07] MEDS: NUTRISOURCE FIBER 4 GM PACKET GT SCH (20:47)
[2020-07-07] MEDS: ASCORBIC ACID 500 MG TABLET GT SCH (20:47)
[2020-07-07] MEDS: PROTEIN SUPPLEMENT (PROSTAT) 30 ML LIQUID GT SCH (20:47)
[2020-07-07] MEDS: RIVAROXABAN 15 MG TABLET GT SCH (20:49)
[2020-07-08] MEDS: BACLOFEN 20 MG TABLET GT SCH ×3 (05:49→21:11)
[2020-07-08] MEDS: OMEPRAZOLE 20 MG CAPSULE.DR GT SCH (05:49)
[2020-07-08] MEDS: METOCLOPRAMIDE HCL 10 MG/10 ML UDC GT SCH ×3 (05:49→17:30)
[2020-07-08] MEDS: MULTIVIT, IRON, MIN NO. 8, FA TABLET GT SCH (05:49)
[2020-07-08] MEDS: HYDROGEN PEROXIDE 3% 118 ML BOTTLE TP SCH ×2 (07:30→19:42)
[2020-07-08 07:39] VITALS: BP 90/41
[2020-07-08] MEDS: POTASSIUM CHLORIDE 40 MEQ/30 ML LIQUID UDC GT SCH (08:27)
[2020-07-08] MEDS: levETIRAcetam 500 MG/5 ML LIQUID UDC GT SCH ×2 (08:27→20:24)
[2020-07-08] MEDS: MIRALAX 17 GM POWD.PACK GT SCH (08:27)
[2020-07-08] MEDS: DOCUSATE SODIUM 100 MG/10 ML LIQUID UDC GT SCH (08:27)
[2020-07-08] MEDS: ACIDOPHILUS/BULGARICUS CHEW TAB GT SCH ×2 (08:27→20:24)
[2020-07-08] MEDS: COD LIVER OIL/ZINC OXIDE OINT 113 GM TUBE TP SCH ×2 (08:28→20:24)
--- NOTE | 2020-07-08 13:48 | NUR ---
ISAÍAS discussed some of the discharge planning arrangements with patient's sister Jeanne. ISAÍAS stated that SW would be applying for an HCBA waiver for the patient, which will allow for patient to a multidisciplinary care management team providing care for the patient at home. Jeanne expressed agreement with this; SW to follow-up. ISAÍAS and Jeanne also discussed IHSS services, and Jeanne stated that patient's parents were working on applying for IHSS. DME and HH services discussed, and ISAÍAS stated that these arrangements would be made for the patient prior to discharge. SW reminded Jeanne about the importance of having caregivers to provide continuous care for the patient, and SW stated that training/education would be provided to all caregivers before discharge. SW to continue to work with patient's family and IDT team in order to coordinate all necessary services needed for a safe and proper discharge home, per family's request to discharge patient home.
--- NOTE | 2020-07-08 17:47 | NUR ---
Video call provided with the pt. and family (mother). No concern verbalized by the family. Will continue to monitor.
[2020-07-08 20:12] VITALS: BP 115/70
[2020-07-08] MEDS: MELATONIN 3MG TABLET GT SCH (20:24)
[2020-07-08] MEDS: PROTEIN SUPPLEMENT (PROSTAT) 30 ML LIQUID GT SCH (20:24)
[2020-07-08] MEDS: MAGNESIUM COMPLEX GT SCH (20:24)
[2020-07-08] MEDS: ASCORBIC ACID 500 MG TABLET GT SCH (20:24)
[2020-07-08] MEDS: NUTRISOURCE FIBER 4 GM PACKET GT SCH (20:24)
[2020-07-08] MEDS: CRANBERRY 500 MG GT SCH (20:24)
[2020-07-08] MEDS: RIVAROXABAN 15 MG TABLET GT SCH (21:13)
[2020-07-09] MEDS: METOCLOPRAMIDE HCL 10 MG/10 ML UDC GT SCH ×4 (01:00→17:32)
[2020-07-09] MEDS: OMEPRAZOLE 20 MG CAPSULE.DR GT SCH (05:29)
[2020-07-09] MEDS: BACLOFEN 20 MG TABLET GT SCH ×3 (05:29→22:16)
[2020-07-09] MEDS: MULTIVIT, IRON, MIN NO. 8, FA TABLET GT SCH (05:29)
[2020-07-09 07:46] VITALS: BP 100/50
[2020-07-09] MEDS: MIRALAX 17 GM POWD.PACK GT SCH (08:34)
[2020-07-09] MEDS: COD LIVER OIL/ZINC OXIDE OINT 113 GM TUBE TP SCH ×2 (08:34→20:42)
[2020-07-09] MEDS: levETIRAcetam 500 MG/5 ML LIQUID UDC GT SCH ×2 (08:34→20:41)
[2020-07-09] MEDS: DOCUSATE SODIUM 100 MG/10 ML LIQUID UDC GT SCH (08:34)
[2020-07-09] MEDS: COAL TAR TOP SCH (08:34)
[2020-07-09] MEDS: ACIDOPHILUS/BULGARICUS CHEW TAB GT SCH ×2 (08:34→20:39)
[2020-07-09] MEDS: POTASSIUM CHLORIDE 40 MEQ/30 ML LIQUID UDC GT SCH (08:34)
[2020-07-09] MEDS: HYDROGEN PEROXIDE 3% 118 ML BOTTLE TP SCH ×2 (09:50→21:11)
--- NOTE | 2020-07-09 13:58 | NUR ---
Video call provided with the pt. and family (sister). No complaints verbalized by the family at this time. Pt. stable and no respiratory distress at this time.
[2020-07-09 20:06] VITALS: BP 117/62
[2020-07-09] MEDS: MELATONIN 3MG TABLET GT SCH (20:39)
[2020-07-09] MEDS: CRANBERRY 500 MG GT SCH (20:41)
[2020-07-09] MEDS: NUTRISOURCE FIBER 4 GM PACKET GT SCH (20:41)
[2020-07-09] MEDS: MAGNESIUM COMPLEX GT SCH (20:41)
[2020-07-09] MEDS: PROTEIN SUPPLEMENT (PROSTAT) 30 ML LIQUID GT SCH (20:42)
[2020-07-09] MEDS: ASCORBIC ACID 500 MG TABLET GT SCH (20:42)
[2020-07-09] MEDS: RIVAROXABAN 15 MG TABLET GT SCH (20:58)
[2020-07-10] MEDS: MULTIVIT, IRON, MIN NO. 8, FA TABLET GT SCH (05:34)
[2020-07-10] MEDS: OMEPRAZOLE 20 MG CAPSULE.DR GT SCH (05:34)
[2020-07-10] MEDS: METOCLOPRAMIDE HCL 10 MG/10 ML UDC GT SCH ×4 (05:34→18:14)
[2020-07-10] MEDS: BACLOFEN 20 MG TABLET GT SCH ×3 (05:34→22:48)
[2020-07-10 07:56] VITALS: BP 111/65
[2020-07-10] MEDS: DOCUSATE SODIUM 100 MG/10 ML LIQUID UDC GT SCH (08:48)
[2020-07-10] MEDS: ACIDOPHILUS/BULGARICUS CHEW TAB GT SCH ×2 (08:48→20:56)
[2020-07-10] MEDS: levETIRAcetam 500 MG/5 ML LIQUID UDC GT SCH ×2 (08:58→20:56)
[2020-07-10] MEDS: COD LIVER OIL/ZINC OXIDE OINT 113 GM TUBE TP SCH ×2 (08:59→20:58)
[2020-07-10] MEDS: POTASSIUM CHLORIDE 40 MEQ/30 ML LIQUID UDC GT SCH (08:59)
[2020-07-10] MEDS: HYDROGEN PEROXIDE 3% 118 ML BOTTLE TP SCH ×2 (09:00→21:29)
[2020-07-10] MEDS: MIRALAX 17 GM POWD.PACK GT SCH (09:00)
--- NOTE | 2020-07-10 14:15 | NUR ---
SW informed patient's sister Jeanne, via email, that the next team meeting for the patient is scheduled for 07/16/2020 at 11am. ISAÍAS asked Jeanne to let this SW know if family would like to participate in the meeting by speaker phone.
[2020-07-10 20:12] VITALS: BP 101/57
[2020-07-10] MEDS: NUTRISOURCE FIBER 4 GM PACKET GT SCH (20:56)
[2020-07-10] MEDS: MELATONIN 3MG TABLET GT SCH (20:56)
[2020-07-10] MEDS: MAGNESIUM COMPLEX GT SCH (20:56)
[2020-07-10] MEDS: CRANBERRY 500 MG GT SCH (20:56)
[2020-07-10] MEDS: RIVAROXABAN 15 MG TABLET GT SCH (20:57)
[2020-07-10] MEDS: PROTEIN SUPPLEMENT (PROSTAT) 30 ML LIQUID GT SCH (20:57)
[2020-07-10] MEDS: ASCORBIC ACID 500 MG TABLET GT SCH (20:57)
[2020-07-11] MEDS: METOCLOPRAMIDE HCL 10 MG/10 ML UDC GT SCH ×4 (00:20→17:22)
[2020-07-11] MEDS: TWOCAL HN 1,000 ML LIQUID GT PRN (02:30)
[2020-07-11] MEDS: MULTIVIT, IRON, MIN NO. 8, FA TABLET GT SCH (05:42)
[2020-07-11] MEDS: BACLOFEN 20 MG TABLET GT SCH ×3 (05:42→22:03)
[2020-07-11] MEDS: OMEPRAZOLE 20 MG CAPSULE.DR GT SCH (05:42)
[2020-07-11 07:49] VITALS: BP 110/64
[2020-07-11] MEDS: DOCUSATE SODIUM 100 MG/10 ML LIQUID UDC GT SCH (08:06)
[2020-07-11] MEDS: ACIDOPHILUS/BULGARICUS CHEW TAB GT SCH ×2 (08:06→21:58)
[2020-07-11] MEDS: COD LIVER OIL/ZINC OXIDE OINT 113 GM TUBE TP SCH ×2 (08:06→21:00)
[2020-07-11] MEDS: MIRALAX 17 GM POWD.PACK GT SCH (08:06)
[2020-07-11] MEDS: levETIRAcetam 500 MG/5 ML LIQUID UDC GT SCH ×2 (08:06→21:59)
[2020-07-11] MEDS: POTASSIUM CHLORIDE 40 MEQ/30 ML LIQUID UDC GT SCH (08:06)
[2020-07-11] MEDS: HYDROGEN PEROXIDE 3% 118 ML BOTTLE TP SCH ×2 (09:00→21:19)
--- NOTE | 2020-07-11 17:55 | NUR ---
CALLED AND NOTIFIED [employer] OF ANNUAL PPD TEST. NOTIFIED FRENCH OF THE PPD TEST AND SHE OKAYED TO GIVE TEST.
[2020-07-11 20:46] VITALS: BP 104/68
[2020-07-11] MEDS: MAGNESIUM COMPLEX GT SCH (21:00)
[2020-07-11] MEDS: PROTEIN SUPPLEMENT (PROSTAT) 30 ML LIQUID GT SCH (21:00)
[2020-07-11] MEDS: RIVAROXABAN 15 MG TABLET GT SCH (21:00)
[2020-07-11] MEDS: NUTRISOURCE FIBER 4 GM PACKET GT SCH (21:00)
[2020-07-11] MEDS: CRANBERRY 500 MG GT SCH (21:00)
[2020-07-11] MEDS: ASCORBIC ACID 500 MG TABLET GT SCH (21:00)
[2020-07-11] MEDS: MELATONIN 3MG TABLET GT SCH (21:59)
[2020-07-12] MEDS: METOCLOPRAMIDE HCL 10 MG/10 ML UDC GT SCH ×4 (00:26→17:18)
[2020-07-12] MEDS: OMEPRAZOLE 20 MG CAPSULE.DR GT SCH (05:38)
[2020-07-12] MEDS: BACLOFEN 20 MG TABLET GT SCH ×3 (05:38→22:22)
[2020-07-12] MEDS: MULTIVIT, IRON, MIN NO. 8, FA TABLET GT SCH (05:38)
[2020-07-12 08:05] VITALS: BP 94/67
[2020-07-12] MEDS: POTASSIUM CHLORIDE 40 MEQ/30 ML LIQUID UDC GT SCH (09:21)
[2020-07-12] MEDS: levETIRAcetam 500 MG/5 ML LIQUID UDC GT SCH ×2 (09:21→21:00)
[2020-07-12] MEDS: MIRALAX 17 GM POWD.PACK GT SCH (09:21)
[2020-07-12] MEDS: DOCUSATE SODIUM 100 MG/10 ML LIQUID UDC GT SCH (09:21)
[2020-07-12] MEDS: ACIDOPHILUS/BULGARICUS CHEW TAB GT SCH ×2 (09:21→21:00)
--- NOTE | 2020-07-12 09:21 | NUR ---
ISAÍAS received an email from patient's sister Jeanne, stating that she would like to participate in the IDT meeting scheduled for 07/16. ISAÍAS emailed Jeanne back asking her to be available between 11am-12pm to receive the IDT team's call.
[2020-07-12] MEDS: COAL TAR TOP SCH (09:22)
[2020-07-12] MEDS: COD LIVER OIL/ZINC OXIDE OINT 113 GM TUBE TP SCH ×2 (09:22→21:00)
[2020-07-12] MEDS: HYDROGEN PEROXIDE 3% 118 ML BOTTLE TP SCH ×2 (10:10→21:24)
[2020-07-12] MEDS: MELATONIN 3MG TABLET GT SCH (21:00)
[2020-07-12] MEDS: CRANBERRY 500 MG GT SCH (21:00)
[2020-07-12] MEDS: RIVAROXABAN 15 MG TABLET GT SCH (21:00)
[2020-07-12] MEDS: NUTRISOURCE FIBER 4 GM PACKET GT SCH (21:00)
[2020-07-12] MEDS: PROTEIN SUPPLEMENT (PROSTAT) 30 ML LIQUID GT SCH (21:00)
[2020-07-12] MEDS: MAGNESIUM COMPLEX GT SCH (21:00)
[2020-07-12] MEDS: ASCORBIC ACID 500 MG TABLET GT SCH (21:00)
[2020-07-12 21:40] VITALS: BP 107/66
[2020-07-13] MEDS: METOCLOPRAMIDE HCL 10 MG/10 ML UDC GT SCH ×5 (00:22→23:01)
[2020-07-13] MEDS: BACLOFEN 20 MG TABLET GT SCH ×3 (05:43→21:08)
[2020-07-13] MEDS: MULTIVIT, IRON, MIN NO. 8, FA TABLET GT SCH (05:43)
[2020-07-13] MEDS: OMEPRAZOLE 20 MG CAPSULE.DR GT SCH (05:43)
[2020-07-13 07:43] VITALS: BP 110/63
[2020-07-13] MEDS: ACIDOPHILUS/BULGARICUS CHEW TAB GT SCH ×2 (09:24→20:00)
[2020-07-13] MEDS: MIRALAX 17 GM POWD.PACK GT SCH (09:24)
[2020-07-13] MEDS: levETIRAcetam 500 MG/5 ML LIQUID UDC GT SCH ×2 (09:24→20:00)
[2020-07-13] MEDS: POTASSIUM CHLORIDE 40 MEQ/30 ML LIQUID UDC GT SCH (09:25)
[2020-07-13] MEDS: COD LIVER OIL/ZINC OXIDE OINT 113 GM TUBE TP SCH ×2 (09:25→20:00)
[2020-07-13] MEDS: DOCUSATE SODIUM 100 MG/10 ML LIQUID UDC GT SCH (09:25)
[2020-07-13] MEDS: HYDROGEN PEROXIDE 3% 118 ML BOTTLE TP SCH ×2 (09:49→21:33)
[2020-07-13] MEDS: GUAIFENESIN/DEXTROMETHORPHAN 5 ML UDC GT PRN (09:57)
[2020-07-13] MEDS: TWOCAL HN 1,000 ML LIQUID GT PRN (15:45)
--- NOTE | 2020-07-13 16:30 | NUR ---
video chat done with patient's mother.
[2020-07-13 19:31] VITALS: BP 98/55
[2020-07-13] MEDS: PROTEIN SUPPLEMENT (PROSTAT) 30 ML LIQUID GT SCH (20:00)
[2020-07-13] MEDS: CRANBERRY 500 MG GT SCH (20:00)
[2020-07-13] MEDS: NUTRISOURCE FIBER 4 GM PACKET GT SCH (20:00)
[2020-07-13] MEDS: MELATONIN 3MG TABLET GT SCH (20:00)
[2020-07-13] MEDS: ASCORBIC ACID 500 MG TABLET GT SCH (20:00)
[2020-07-13] MEDS: MAGNESIUM COMPLEX GT SCH (20:00)
[2020-07-13] MEDS: RIVAROXABAN 15 MG TABLET GT SCH (21:54)
[2020-07-14] MEDS: METOCLOPRAMIDE HCL 10 MG/10 ML UDC GT SCH ×3 (05:47→17:34)
[2020-07-14] MEDS: BACLOFEN 20 MG TABLET GT SCH ×3 (05:47→21:03)
[2020-07-14] MEDS: OMEPRAZOLE 20 MG CAPSULE.DR GT SCH (05:47)
[2020-07-14] MEDS: MULTIVIT, IRON, MIN NO. 8, FA TABLET GT SCH (05:47)
[2020-07-14 07:44] VITALS: BP 100/48
[2020-07-14] MEDS: MIRALAX 17 GM POWD.PACK GT SCH (08:53)
[2020-07-14] MEDS: ACIDOPHILUS/BULGARICUS CHEW TAB GT SCH ×2 (08:53→20:54)
[2020-07-14] MEDS: DOCUSATE SODIUM 100 MG/10 ML LIQUID UDC GT SCH (08:53)
[2020-07-14] MEDS: levETIRAcetam 500 MG/5 ML LIQUID UDC GT SCH ×2 (08:53→20:55)
[2020-07-14] MEDS: POTASSIUM CHLORIDE 40 MEQ/30 ML LIQUID UDC GT SCH (08:54)
[2020-07-14] MEDS: COD LIVER OIL/ZINC OXIDE OINT 113 GM TUBE TP SCH ×2 (08:54→20:57)
[2020-07-14] MEDS: HYDROGEN PEROXIDE 3% 118 ML BOTTLE TP SCH ×2 (09:57→19:38)
--- NOTE | 2020-07-14 11:00 | NUR ---
ZOOM PROVIDED TO FATHER.
[2020-07-14] MEDS: CRANBERRY 500 MG GT SCH (20:56)
[2020-07-14] MEDS: MAGNESIUM COMPLEX GT SCH (20:56)
[2020-07-14] MEDS: ASCORBIC ACID 500 MG TABLET GT SCH (20:57)
[2020-07-14] MEDS: RIVAROXABAN 15 MG TABLET GT SCH (21:00)
[2020-07-14] MEDS: NUTRISOURCE FIBER 4 GM PACKET GT SCH (21:03)
[2020-07-14] MEDS: MELATONIN 3MG TABLET GT SCH (21:03)
[2020-07-14] MEDS: PROTEIN SUPPLEMENT (PROSTAT) 30 ML LIQUID GT SCH (21:03)
[2020-07-14 22:27] VITALS: BP 107/64
[2020-07-15] MEDS: METOCLOPRAMIDE HCL 10 MG/10 ML UDC GT SCH ×5 (00:48→23:30)
[2020-07-15] MEDS: BACLOFEN 20 MG TABLET GT SCH ×3 (05:51→21:25)
[2020-07-15] MEDS: OMEPRAZOLE 20 MG CAPSULE.DR GT SCH (05:51)
[2020-07-15] MEDS: MULTIVIT, IRON, MIN NO. 8, FA TABLET GT SCH (05:51)
[2020-07-15 07:40] VITALS: BP 107/57
[2020-07-15] MEDS: ACIDOPHILUS/BULGARICUS CHEW TAB GT SCH ×2 (08:50→20:04)
[2020-07-15] MEDS: DOCUSATE SODIUM 100 MG/10 ML LIQUID UDC GT SCH (08:50)
[2020-07-15] MEDS: levETIRAcetam 500 MG/5 ML LIQUID UDC GT SCH ×2 (08:50→20:04)
[2020-07-15] MEDS: POTASSIUM CHLORIDE 40 MEQ/30 ML LIQUID UDC GT SCH (08:51)
[2020-07-15] MEDS: MIRALAX 17 GM POWD.PACK GT SCH (08:51)
[2020-07-15] MEDS: COD LIVER OIL/ZINC OXIDE OINT 113 GM TUBE TP SCH ×2 (08:51→20:07)
[2020-07-15] MEDS: HYDROGEN PEROXIDE 3% 118 ML BOTTLE TP SCH ×2 (12:51→21:50)
--- NOTE | 2020-07-15 14:50 | NUR ---
ZOOM PROVIDED TO MOTHER.
[2020-07-15] MEDS: TWOCAL HN 1,000 ML LIQUID GT PRN (16:03)
[2020-07-15] MEDS: MELATONIN 3MG TABLET GT SCH (20:04)
[2020-07-15] MEDS: CRANBERRY 500 MG GT SCH (20:05)
[2020-07-15] MEDS: MAGNESIUM COMPLEX GT SCH (20:05)
[2020-07-15] MEDS: NUTRISOURCE FIBER 4 GM PACKET GT SCH (20:06)
[2020-07-15] MEDS: PROTEIN SUPPLEMENT (PROSTAT) 30 ML LIQUID GT SCH (20:06)
[2020-07-15] MEDS: ASCORBIC ACID 500 MG TABLET GT SCH (20:07)
[2020-07-15] MEDS: RIVAROXABAN 15 MG TABLET GT SCH (20:25)
[2020-07-15 20:46] VITALS: BP 107/59
[2020-07-16] MEDS: MULTIVIT, IRON, MIN NO. 8, FA TABLET GT SCH (05:08)
[2020-07-16] MEDS: BACLOFEN 20 MG TABLET GT SCH ×3 (05:08→22:38)
[2020-07-16] MEDS: METOCLOPRAMIDE HCL 10 MG/10 ML UDC GT SCH ×3 (05:08→17:51)
[2020-07-16] MEDS: OMEPRAZOLE 20 MG CAPSULE.DR GT SCH (05:08)
[2020-07-16 07:30] VITALS: BP 116/81
[2020-07-16] MEDS: DOCUSATE SODIUM 100 MG/10 ML LIQUID UDC GT SCH (08:45)
[2020-07-16] MEDS: ACIDOPHILUS/BULGARICUS CHEW TAB GT SCH ×2 (08:45→20:06)
[2020-07-16] MEDS: levETIRAcetam 500 MG/5 ML LIQUID UDC GT SCH ×2 (08:46→20:07)
[2020-07-16] MEDS: COD LIVER OIL/ZINC OXIDE OINT 113 GM TUBE TP SCH ×2 (08:48→20:09)
[2020-07-16] MEDS: POTASSIUM CHLORIDE 40 MEQ/30 ML LIQUID UDC GT SCH (08:48)
[2020-07-16] MEDS: COAL TAR TOP SCH (08:48)
[2020-07-16] MEDS: MIRALAX 17 GM POWD.PACK GT SCH (08:48)
[2020-07-16] MEDS: HYDROGEN PEROXIDE 3% 118 ML BOTTLE TP SCH ×2 (09:00→21:50)
--- NOTE | 2020-07-16 14:20 | NUR ---
ZOOM PROVIDED TO PATIENT WITH SISTER
--- NOTE | 2020-07-16 15:37 | NUR ---
INTERDISCIPLINARY PLAN OF CARE CONFERENCE was held today. Patient's sister Jeanne participated in the IDT meeting through speaker phone. Dr. Cartagena and the Interdisciplinary Team reviewed the current plan of care in detail. Nursing reported on patient's medical condition. See nursing IDT conference notes. No major changes in medical condition were reported by nursing or by other disciplines. PT discussed current treatment plan and progress. See all other disciplines IDT notes and physician's progress notes for additional details. Jeanne's questions were addressed by the IDT team, and Jeanne expressed being in content with the current plan.
[2020-07-16] MEDS: MELATONIN 3MG TABLET GT SCH (20:06)
[2020-07-16] MEDS: MAGNESIUM COMPLEX GT SCH (20:08)
[2020-07-16] MEDS: RIVAROXABAN 15 MG TABLET GT SCH (20:08)
[2020-07-16] MEDS: CRANBERRY 500 MG GT SCH (20:08)
[2020-07-16] MEDS: PROTEIN SUPPLEMENT (PROSTAT) 30 ML LIQUID GT SCH (20:11)
[2020-07-16] MEDS: ASCORBIC ACID 500 MG TABLET GT SCH (20:11)
[2020-07-16] MEDS: NUTRISOURCE FIBER 4 GM PACKET GT SCH (20:11)
[2020-07-16 20:20] VITALS: BP 101/64
[2020-07-17] MEDS: METOCLOPRAMIDE HCL 10 MG/10 ML UDC GT SCH ×4 (00:29→17:18)
[2020-07-17] MEDS: TWOCAL HN 1,000 ML LIQUID GT PRN (02:29)
[2020-07-17] MEDS: ACETAMINOPHEN 650 MG/20 ML UDC- SA PATIENTS-PAIN ONLY GT PRN (02:29)
[2020-07-17] MEDS: OMEPRAZOLE 20 MG CAPSULE.DR GT SCH (05:10)
[2020-07-17] MEDS: BACLOFEN 20 MG TABLET GT SCH ×3 (05:10→21:13)
[2020-07-17] MEDS: MULTIVIT, IRON, MIN NO. 8, FA TABLET GT SCH (05:11)
[2020-07-17 07:36] VITALS: BP 107/67
[2020-07-17] MEDS: ACIDOPHILUS/BULGARICUS CHEW TAB GT SCH ×2 (08:38→21:10)
[2020-07-17] MEDS: DOCUSATE SODIUM 100 MG/10 ML LIQUID UDC GT SCH (08:38)
[2020-07-17] MEDS: levETIRAcetam 500 MG/5 ML LIQUID UDC GT SCH ×2 (08:38→21:10)
[2020-07-17] MEDS: MIRALAX 17 GM POWD.PACK GT SCH (08:39)
[2020-07-17] MEDS: POTASSIUM CHLORIDE 40 MEQ/30 ML LIQUID UDC GT SCH (08:40)
[2020-07-17] MEDS: COD LIVER OIL/ZINC OXIDE OINT 113 GM TUBE TP SCH ×2 (08:40→21:13)
[2020-07-17] MEDS: HYDROGEN PEROXIDE 3% 118 ML BOTTLE TP SCH ×2 (09:00→21:10)
--- NOTE | 2020-07-17 14:30 | NUR ---
ZOOM PROVIDED TO FATHER.
--- NOTE | 2020-07-17 18:51 | NUR ---
PT'S FATHER MILLI NOTIFIED REGARDING COVID 19 RESULT WAS NEG.
[2020-07-17 20:00] VITALS: BP 107/65
[2020-07-17] MEDS: RIVAROXABAN 15 MG TABLET GT SCH (21:00)
[2020-07-17] MEDS: CRANBERRY 500 MG GT SCH (21:10)
[2020-07-17] MEDS: MELATONIN 3MG TABLET GT SCH (21:10)
[2020-07-17] MEDS: MAGNESIUM COMPLEX GT SCH (21:11)
[2020-07-17] MEDS: NUTRISOURCE FIBER 4 GM PACKET GT SCH (21:11)
[2020-07-17] MEDS: PROTEIN SUPPLEMENT (PROSTAT) 30 ML LIQUID GT SCH (21:12)
[2020-07-17] MEDS: ASCORBIC ACID 500 MG TABLET GT SCH (21:12)
[2020-07-18] MEDS: METOCLOPRAMIDE HCL 10 MG/10 ML UDC GT SCH ×4 (00:23→17:17)
[2020-07-18] MEDS: OMEPRAZOLE 20 MG CAPSULE.DR GT SCH (05:45)
[2020-07-18] MEDS: BACLOFEN 20 MG TABLET GT SCH ×3 (05:45→21:06)
[2020-07-18] MEDS: MULTIVIT, IRON, MIN NO. 8, FA TABLET GT SCH (05:45)
[2020-07-18] MEDS: HYDROGEN PEROXIDE 3% 118 ML BOTTLE TP SCH ×2 (07:24→21:24)
[2020-07-18 07:37] VITALS: BP 109/61
[2020-07-18] MEDS: DOCUSATE SODIUM 100 MG/10 ML LIQUID UDC GT SCH (08:59)
[2020-07-18] MEDS: ACIDOPHILUS/BULGARICUS CHEW TAB GT SCH ×2 (08:59→21:05)
[2020-07-18] MEDS: levETIRAcetam 500 MG/5 ML LIQUID UDC GT SCH ×2 (09:00→21:05)
[2020-07-18] MEDS: COD LIVER OIL/ZINC OXIDE OINT 113 GM TUBE TP SCH ×2 (09:01→21:06)
[2020-07-18] MEDS: POTASSIUM CHLORIDE 40 MEQ/30 ML LIQUID UDC GT SCH (09:01)
[2020-07-18] MEDS: MIRALAX 17 GM POWD.PACK GT SCH (09:01)
[2020-07-18 20:00] VITALS: BP 114/66
[2020-07-18] MEDS: NUTRISOURCE FIBER 4 GM PACKET GT SCH (21:05)
[2020-07-18] MEDS: MELATONIN 3MG TABLET GT SCH (21:05)
[2020-07-18] MEDS: MAGNESIUM COMPLEX GT SCH (21:05)
[2020-07-18] MEDS: CRANBERRY 500 MG GT SCH (21:05)
[2020-07-18] MEDS: PROTEIN SUPPLEMENT (PROSTAT) 30 ML LIQUID GT SCH (21:05)
[2020-07-18] MEDS: ASCORBIC ACID 500 MG TABLET GT SCH (21:06)
[2020-07-18] MEDS: RIVAROXABAN 15 MG TABLET GT SCH (21:19)
[2020-07-19] MEDS: METOCLOPRAMIDE HCL 10 MG/10 ML UDC GT SCH ×4 (00:26→18:03)
[2020-07-19] MEDS: TWOCAL HN 1,000 ML LIQUID GT PRN (03:46)
[2020-07-19] MEDS: MULTIVIT, IRON, MIN NO. 8, FA TABLET GT SCH (05:38)
[2020-07-19] MEDS: OMEPRAZOLE 20 MG CAPSULE.DR GT SCH (05:38)
[2020-07-19] MEDS: BACLOFEN 20 MG TABLET GT SCH ×3 (05:38→22:10)
[2020-07-19 07:38] VITALS: BP 105/64
[2020-07-19] MEDS: levETIRAcetam 500 MG/5 ML LIQUID UDC GT SCH ×2 (08:36→21:00)
[2020-07-19] MEDS: MIRALAX 17 GM POWD.PACK GT SCH (08:36)
[2020-07-19] MEDS: COD LIVER OIL/ZINC OXIDE OINT 113 GM TUBE TP SCH ×2 (08:36→21:00)
[2020-07-19] MEDS: POTASSIUM CHLORIDE 40 MEQ/30 ML LIQUID UDC GT SCH (08:36)
[2020-07-19] MEDS: ACIDOPHILUS/BULGARICUS CHEW TAB GT SCH ×2 (08:36→21:00)
[2020-07-19] MEDS: COAL TAR TOP SCH (08:36)
[2020-07-19] MEDS: DOCUSATE SODIUM 100 MG/10 ML LIQUID UDC GT SCH (08:36)
[2020-07-19] MEDS: HYDROGEN PEROXIDE 3% 118 ML BOTTLE TP SCH ×2 (10:10→21:50)
--- NOTE | 2020-07-19 16:00 | NUR ---
provided zoom for patient with sister.
[2020-07-19 20:00] VITALS: BP 117/66
[2020-07-19] MEDS: MAGNESIUM COMPLEX GT SCH (21:00)
[2020-07-19] MEDS: ASCORBIC ACID 500 MG TABLET GT SCH (21:00)
[2020-07-19] MEDS: NUTRISOURCE FIBER 4 GM PACKET GT SCH (21:00)
[2020-07-19] MEDS: CRANBERRY 500 MG GT SCH (21:00)
[2020-07-19] MEDS: PROTEIN SUPPLEMENT (PROSTAT) 30 ML LIQUID GT SCH (21:00)
[2020-07-19] MEDS: MELATONIN 3MG TABLET GT SCH (21:00)
[2020-07-19] MEDS: RIVAROXABAN 15 MG TABLET GT SCH (21:00)
[2020-07-20] MEDS: METOCLOPRAMIDE HCL 10 MG/10 ML UDC GT SCH ×4 (00:28→18:04)
--- NOTE | 2020-07-20 01:20 | NUR ---
For COVID-19 testing as per [facility] requirement.
[2020-07-20] MEDS: BACLOFEN 20 MG TABLET GT SCH ×3 (05:37→21:43)
[2020-07-20] MEDS: OMEPRAZOLE 20 MG CAPSULE.DR GT SCH (05:37)
[2020-07-20] MEDS: MULTIVIT, IRON, MIN NO. 8, FA TABLET GT SCH (05:38)
[2020-07-20 07:33] VITALS: BP 114/70
[2020-07-20] MEDS: ACIDOPHILUS/BULGARICUS CHEW TAB GT SCH ×2 (08:57→20:28)
[2020-07-20] MEDS: DOCUSATE SODIUM 100 MG/10 ML LIQUID UDC GT SCH (08:57)
[2020-07-20] MEDS: levETIRAcetam 500 MG/5 ML LIQUID UDC GT SCH ×2 (08:58→20:28)
[2020-07-20] MEDS: HYDROGEN PEROXIDE 3% 118 ML BOTTLE TP SCH ×2 (08:59→22:20)
[2020-07-20] MEDS: MIRALAX 17 GM POWD.PACK GT SCH (09:00)
[2020-07-20] MEDS: POTASSIUM CHLORIDE 40 MEQ/30 ML LIQUID UDC GT SCH (09:00)
[2020-07-20] MEDS: COD LIVER OIL/ZINC OXIDE OINT 113 GM TUBE TP SCH ×2 (09:01→20:29)
--- NOTE | 2020-07-20 12:47 | NUR ---
PT'S FATHEREMILIO WAS IN AGREEMENT OF ORDER FOR COVID 19 TEST TODAY.
[2020-07-20] MEDS: RIVAROXABAN 15 MG TABLET GT SCH (20:23)
[2020-07-20] MEDS: PROTEIN SUPPLEMENT (PROSTAT) 30 ML LIQUID GT SCH (20:28)
[2020-07-20] MEDS: MAGNESIUM COMPLEX GT SCH (20:28)
[2020-07-20] MEDS: MELATONIN 3MG TABLET GT SCH (20:28)
[2020-07-20] MEDS: NUTRISOURCE FIBER 4 GM PACKET GT SCH (20:28)
[2020-07-20] MEDS: CRANBERRY 500 MG GT SCH (20:28)
[2020-07-20] MEDS: ASCORBIC ACID 500 MG TABLET GT SCH (20:29)
[2020-07-20 20:30] VITALS: BP 118/73
[2020-07-21] MEDS: METOCLOPRAMIDE HCL 10 MG/10 ML UDC GT SCH ×4 (00:21→18:29)
[2020-07-21] MEDS: BACLOFEN 20 MG TABLET GT SCH ×3 (05:17→22:20)
[2020-07-21] MEDS: OMEPRAZOLE 20 MG CAPSULE.DR GT SCH (05:17)
[2020-07-21] MEDS: MULTIVIT, IRON, MIN NO. 8, FA TABLET GT SCH (05:17)
[2020-07-21 07:34] VITALS: BP 105/66
[2020-07-21] MEDS: HYDROGEN PEROXIDE 3% 118 ML BOTTLE TP SCH ×2 (08:41→21:42)
[2020-07-21] MEDS: POTASSIUM CHLORIDE 40 MEQ/30 ML LIQUID UDC GT SCH (09:42)
[2020-07-21] MEDS: ACIDOPHILUS/BULGARICUS CHEW TAB GT SCH ×2 (09:42→21:00)
[2020-07-21] MEDS: DOCUSATE SODIUM 100 MG/10 ML LIQUID UDC GT SCH (09:42)
[2020-07-21] MEDS: COD LIVER OIL/ZINC OXIDE OINT 113 GM TUBE TP SCH ×2 (09:42→21:00)
[2020-07-21] MEDS: MIRALAX 17 GM POWD.PACK GT SCH (09:42)
[2020-07-21] MEDS: levETIRAcetam 500 MG/5 ML LIQUID UDC GT SCH ×2 (09:42→21:00)
--- NOTE | 2020-07-21 16:58 | NUR ---
PT'S FATHER AWARE THAT PT'S COVID 19 TEST IS NEGATIVE.
[2020-07-21 20:39] VITALS: BP 107/76
[2020-07-21 20:44] VITALS: BP 124/56
[2020-07-21 20:46] VITALS: BP 104/75
[2020-07-21] MEDS: MELATONIN 3MG TABLET GT SCH (21:00)
[2020-07-21] MEDS: NUTRISOURCE FIBER 4 GM PACKET GT SCH (21:00)
[2020-07-21] MEDS: MAGNESIUM COMPLEX GT SCH (21:00)
[2020-07-21] MEDS: ASCORBIC ACID 500 MG TABLET GT SCH (21:00)
[2020-07-21] MEDS: CRANBERRY 500 MG GT SCH (21:00)
[2020-07-21] MEDS: PROTEIN SUPPLEMENT (PROSTAT) 30 ML LIQUID GT SCH (21:00)
[2020-07-21] MEDS: RIVAROXABAN 15 MG TABLET GT SCH (21:00)
[2020-07-22] MEDS: METOCLOPRAMIDE HCL 10 MG/10 ML UDC GT SCH ×4 (00:08→17:45)
[2020-07-22] MEDS: OMEPRAZOLE 20 MG CAPSULE.DR GT SCH (06:19)
[2020-07-22] MEDS: BACLOFEN 20 MG TABLET GT SCH ×3 (06:19→22:20)
[2020-07-22] MEDS: MULTIVIT, IRON, MIN NO. 8, FA TABLET GT SCH (06:20)
[2020-07-22 07:41] VITALS: BP 99/56
[2020-07-22] MEDS: levETIRAcetam 500 MG/5 ML LIQUID UDC GT SCH ×2 (08:59→21:00)
[2020-07-22] MEDS: ACIDOPHILUS/BULGARICUS CHEW TAB GT SCH ×2 (08:59→21:00)
[2020-07-22] MEDS: DOCUSATE SODIUM 100 MG/10 ML LIQUID UDC GT SCH (08:59)
[2020-07-22] MEDS: HYDROGEN PEROXIDE 3% 118 ML BOTTLE TP SCH ×2 (08:59→21:36)
[2020-07-22] MEDS: MIRALAX 17 GM POWD.PACK GT SCH (09:00)
[2020-07-22] MEDS: POTASSIUM CHLORIDE 40 MEQ/30 ML LIQUID UDC GT SCH (09:00)
[2020-07-22] MEDS: COD LIVER OIL/ZINC OXIDE OINT 113 GM TUBE TP SCH ×2 (09:00→21:00)
--- NOTE | 2020-07-22 13:45 | NUR ---
SEEN BY [place] Trotter AND WITH NNO.
--- NOTE | 2020-07-22 14:02 | NUR ---
Home and Community-Based Alternative (HCBA) waiver application faxed to [employer], in preparation for discharge planning, requested by patient's family who would like to take patient home. .
--- NOTE | 2020-07-22 14:24 | NUR ---
ISAÍAS received a call from Renetta at [facility], x [phone], confirming receipt of the waiver application this ISAÍAS faxed earlier. Renetta stated that Renetta will be the household appliances salesperson, and will be following up with this ISAÍAS soon for additional information. ISAÍAS expressed understanding, and will wait to hear from Renetta regarding the waiver process.
--- NOTE | 2020-07-22 15:21 | NUR ---
ISAÍAS received a call from Andrew [facility] [address] [phone]. Andrew wanted to do an annual check-in on patient's conservatorship, and schedule a ZOOM video session with the patient. ISAÍAS scheduled the ZOOM session for 07/23/20 at 10:30am.
[2020-07-22] MEDS: POLYVINYL ALCOHOL OPHT DROPS 15 ML BOTTLE EACHEYE PRN (17:45)
[2020-07-22 20:29] VITALS: BP 117/70
[2020-07-22] MEDS: NUTRISOURCE FIBER 4 GM PACKET GT SCH (21:00)
[2020-07-22] MEDS: RIVAROXABAN 15 MG TABLET GT SCH (21:00)
[2020-07-22] MEDS: ASCORBIC ACID 500 MG TABLET GT SCH (21:00)
[2020-07-22] MEDS: PROTEIN SUPPLEMENT (PROSTAT) 30 ML LIQUID GT SCH (21:00)
[2020-07-22] MEDS: CRANBERRY 500 MG GT SCH (21:00)
[2020-07-22] MEDS: MELATONIN 3MG TABLET GT SCH (21:00)
[2020-07-22] MEDS: MAGNESIUM COMPLEX GT SCH (21:00)
[2020-07-23] MEDS: METOCLOPRAMIDE HCL 10 MG/10 ML UDC GT SCH ×5 (00:24→23:44)
[2020-07-23] MEDS: MULTIVIT, IRON, MIN NO. 8, FA TABLET GT SCH (06:43)
[2020-07-23] MEDS: OMEPRAZOLE 20 MG CAPSULE.DR GT SCH (06:43)
[2020-07-23] MEDS: BACLOFEN 20 MG TABLET GT SCH ×3 (06:43→22:15)
[2020-07-23 07:32] VITALS: BP 97/58
[2020-07-23] MEDS: levETIRAcetam 500 MG/5 ML LIQUID UDC GT SCH ×2 (08:43→20:35)
[2020-07-23] MEDS: MIRALAX 17 GM POWD.PACK GT SCH (08:43)
[2020-07-23] MEDS: DOCUSATE SODIUM 100 MG/10 ML LIQUID UDC GT SCH (08:43)
[2020-07-23] MEDS: ACIDOPHILUS/BULGARICUS CHEW TAB GT SCH ×2 (08:43→20:35)
[2020-07-23] MEDS: POTASSIUM CHLORIDE 40 MEQ/30 ML LIQUID UDC GT SCH (08:44)
[2020-07-23] MEDS: COD LIVER OIL/ZINC OXIDE OINT 113 GM TUBE TP SCH ×2 (08:48→20:36)
[2020-07-23] MEDS: COAL TAR TOP SCH (09:00)
[2020-07-23] MEDS: HYDROGEN PEROXIDE 3% 118 ML BOTTLE TP SCH ×2 (09:37→21:16)
--- NOTE | 2020-07-23 14:28 | NUR ---
PT. HAD VIDEO CHAT VIA ZOOM WITH HER SISTER X 5 MIN.
--- NOTE | 2020-07-23 14:30 | NUR ---
Seen and examined by Lu Coleman,no new orders.
--- NOTE | 2020-07-23 16:50 | NUR ---
10:30am: ISAÍAS coordinated the ZOOM session today [facility] [phone]. Andrew completed his annual follow-up assessment with the patient. No concerns at this time.
[2020-07-23] MEDS: TWOCAL HN 1,000 ML LIQUID GT PRN (17:42)
[2020-07-23 20:29] VITALS: BP 110/70
[2020-07-23] MEDS: CRANBERRY 500 MG GT SCH (20:35)
[2020-07-23] MEDS: NUTRISOURCE FIBER 4 GM PACKET GT SCH (20:35)
[2020-07-23] MEDS: PROTEIN SUPPLEMENT (PROSTAT) 30 ML LIQUID GT SCH (20:35)
[2020-07-23] MEDS: MELATONIN 3MG TABLET GT SCH (20:35)
[2020-07-23] MEDS: ASCORBIC ACID 500 MG TABLET GT SCH (20:35)
[2020-07-23] MEDS: MAGNESIUM COMPLEX GT SCH (20:35)
[2020-07-23] MEDS: RIVAROXABAN 15 MG TABLET GT SCH (20:36)
[2020-07-24] MEDS: OMEPRAZOLE 20 MG CAPSULE.DR GT SCH (05:46)
[2020-07-24] MEDS: MULTIVIT, IRON, MIN NO. 8, FA TABLET GT SCH (05:46)
[2020-07-24] MEDS: BACLOFEN 20 MG TABLET GT SCH ×3 (05:46→22:12)
[2020-07-24] MEDS: METOCLOPRAMIDE HCL 10 MG/10 ML UDC GT SCH ×3 (05:46→17:44)
[2020-07-24 07:40] VITALS: BP 120/63
[2020-07-24] MEDS: HYDROGEN PEROXIDE 3% 118 ML BOTTLE TP SCH ×2 (07:55→21:42)
[2020-07-24] MEDS: DOCUSATE SODIUM 100 MG/10 ML LIQUID UDC GT SCH (09:00)
[2020-07-24] MEDS: ACIDOPHILUS/BULGARICUS CHEW TAB GT SCH ×2 (09:00→20:21)
[2020-07-24] MEDS: levETIRAcetam 500 MG/5 ML LIQUID UDC GT SCH ×2 (09:00→20:21)
[2020-07-24] MEDS: MIRALAX 17 GM POWD.PACK GT SCH (09:00)
[2020-07-24] MEDS: COD LIVER OIL/ZINC OXIDE OINT 113 GM TUBE TP SCH ×2 (09:00→20:22)
[2020-07-24] MEDS: POTASSIUM CHLORIDE 40 MEQ/30 ML LIQUID UDC GT SCH (09:00)
--- NOTE | 2020-07-24 11:30 | NUR ---
Video chat provided with pt's father at this time.
[2020-07-24 20:05] VITALS: BP 115/61
[2020-07-24] MEDS: MELATONIN 3MG TABLET GT SCH (20:21)
[2020-07-24] MEDS: NUTRISOURCE FIBER 4 GM PACKET GT SCH (20:21)
[2020-07-24] MEDS: PROTEIN SUPPLEMENT (PROSTAT) 30 ML LIQUID GT SCH (20:21)
[2020-07-24] MEDS: ASCORBIC ACID 500 MG TABLET GT SCH (20:21)
[2020-07-24] MEDS: CRANBERRY 500 MG GT SCH (20:21)
[2020-07-24] MEDS: MAGNESIUM COMPLEX GT SCH (20:21)
[2020-07-24] MEDS: RIVAROXABAN 15 MG TABLET GT SCH (20:22)
[2020-07-25] MEDS: METOCLOPRAMIDE HCL 10 MG/10 ML UDC GT SCH ×4 (00:14→18:40)
[2020-07-25] MEDS: MULTIVIT, IRON, MIN NO. 8, FA TABLET GT SCH (05:13)
[2020-07-25] MEDS: BACLOFEN 20 MG TABLET GT SCH ×3 (05:13→22:10)
[2020-07-25] MEDS: OMEPRAZOLE 20 MG CAPSULE.DR GT SCH (05:13)
[2020-07-25 07:26] VITALS: BP 117/61
[2020-07-25] MEDS: HYDROGEN PEROXIDE 3% 118 ML BOTTLE TP SCH ×2 (07:29→21:29)
[2020-07-25] MEDS: DOCUSATE SODIUM 100 MG/10 ML LIQUID UDC GT SCH (08:04)
[2020-07-25] MEDS: levETIRAcetam 500 MG/5 ML LIQUID UDC GT SCH ×2 (08:05→20:19)
[2020-07-25] MEDS: ACIDOPHILUS/BULGARICUS CHEW TAB GT SCH ×2 (08:05→20:18)
[2020-07-25] MEDS: POTASSIUM CHLORIDE 40 MEQ/30 ML LIQUID UDC GT SCH (08:06)
[2020-07-25] MEDS: MIRALAX 17 GM POWD.PACK GT SCH (08:06)
[2020-07-25] MEDS: COD LIVER OIL/ZINC OXIDE OINT 113 GM TUBE TP SCH ×2 (08:07→20:31)
--- NOTE | 2020-07-25 12:30 | NUR ---
Video chat done with pt's, mother.
[2020-07-25 19:29] VITALS: BP 106/65
[2020-07-25] MEDS: MELATONIN 3MG TABLET GT SCH (20:18)
[2020-07-25] MEDS: MAGNESIUM COMPLEX GT SCH (20:20)
[2020-07-25] MEDS: CRANBERRY 500 MG GT SCH (20:20)
[2020-07-25] MEDS: PROTEIN SUPPLEMENT (PROSTAT) 30 ML LIQUID GT SCH (20:21)
[2020-07-25] MEDS: NUTRISOURCE FIBER 4 GM PACKET GT SCH (20:21)
[2020-07-25] MEDS: ASCORBIC ACID 500 MG TABLET GT SCH (20:24)
[2020-07-25] MEDS: RIVAROXABAN 15 MG TABLET GT SCH (20:31)
[2020-07-26] MEDS: METOCLOPRAMIDE HCL 10 MG/10 ML UDC GT SCH ×4 (00:47→17:25)
[2020-07-26] MEDS: BACLOFEN 20 MG TABLET GT SCH ×3 (05:28→22:01)
[2020-07-26] MEDS: MULTIVIT, IRON, MIN NO. 8, FA TABLET GT SCH (05:29)
[2020-07-26] MEDS: OMEPRAZOLE 20 MG CAPSULE.DR GT SCH (05:29)
[2020-07-26 07:31] VITALS: BP 101/62
[2020-07-26] MEDS: POTASSIUM CHLORIDE 40 MEQ/30 ML LIQUID UDC GT SCH (09:16)
[2020-07-26] MEDS: MIRALAX 17 GM POWD.PACK GT SCH (09:16)
[2020-07-26] MEDS: ACIDOPHILUS/BULGARICUS CHEW TAB GT SCH ×2 (09:16→20:22)
[2020-07-26] MEDS: COD LIVER OIL/ZINC OXIDE OINT 113 GM TUBE TP SCH ×2 (09:16→20:24)
[2020-07-26] MEDS: COAL TAR TOP SCH (09:16)
[2020-07-26] MEDS: levETIRAcetam 500 MG/5 ML LIQUID UDC GT SCH ×2 (09:16→20:22)
[2020-07-26] MEDS: DOCUSATE SODIUM 100 MG/10 ML LIQUID UDC GT SCH (09:16)
[2020-07-26] MEDS: HYDROGEN PEROXIDE 3% 118 ML BOTTLE TP SCH ×2 (09:33→21:39)
[2020-07-26] MEDS: BISACODYL 10 MG SUPP.RECT RC PRN (12:44)
[2020-07-26 19:49] VITALS: BP 100/66
[2020-07-26] MEDS: MAGNESIUM COMPLEX GT SCH (20:22)
[2020-07-26] MEDS: MELATONIN 3MG TABLET GT SCH (20:22)
[2020-07-26] MEDS: NUTRISOURCE FIBER 4 GM PACKET GT SCH (20:22)
[2020-07-26] MEDS: CRANBERRY 500 MG GT SCH (20:22)
[2020-07-26] MEDS: PROTEIN SUPPLEMENT (PROSTAT) 30 ML LIQUID GT SCH (20:23)
[2020-07-26] MEDS: ASCORBIC ACID 500 MG TABLET GT SCH (20:23)
[2020-07-26] MEDS: RIVAROXABAN 15 MG TABLET GT SCH (20:32)
[2020-07-27] MEDS: METOCLOPRAMIDE HCL 10 MG/10 ML UDC GT SCH ×4 (00:58→17:06)
[2020-07-27] MEDS: OMEPRAZOLE 20 MG CAPSULE.DR GT SCH (05:23)
[2020-07-27] MEDS: BACLOFEN 20 MG TABLET GT SCH ×3 (05:23→21:01)
[2020-07-27] MEDS: MULTIVIT, IRON, MIN NO. 8, FA TABLET GT SCH (05:23)
[2020-07-27 08:19] VITALS: BP 102/67
[2020-07-27] MEDS: ACIDOPHILUS/BULGARICUS CHEW TAB GT SCH ×2 (08:50→20:51)
[2020-07-27] MEDS: levETIRAcetam 500 MG/5 ML LIQUID UDC GT SCH ×2 (08:50→20:52)
[2020-07-27] MEDS: DOCUSATE SODIUM 100 MG/10 ML LIQUID UDC GT SCH (08:50)
[2020-07-27] MEDS: MIRALAX 17 GM POWD.PACK GT SCH (08:51)
[2020-07-27] MEDS: COD LIVER OIL/ZINC OXIDE OINT 113 GM TUBE TP SCH ×2 (08:51→20:52)
[2020-07-27] MEDS: POTASSIUM CHLORIDE 40 MEQ/30 ML LIQUID UDC GT SCH (08:51)
[2020-07-27] MEDS: HYDROGEN PEROXIDE 3% 118 ML BOTTLE TP SCH ×2 (10:10→19:22)
--- NOTE | 2020-07-27 11:45 | NUR ---
video chat done with patient's mother.
[2020-07-27 19:40] VITALS: BP 111/54
[2020-07-27] MEDS: RIVAROXABAN 15 MG TABLET GT SCH (20:24)
[2020-07-27] MEDS: MELATONIN 3MG TABLET GT SCH (20:51)
[2020-07-27] MEDS: MAGNESIUM COMPLEX GT SCH (20:52)
[2020-07-27] MEDS: PROTEIN SUPPLEMENT (PROSTAT) 30 ML LIQUID GT SCH (20:52)
[2020-07-27] MEDS: ASCORBIC ACID 500 MG TABLET GT SCH (20:52)
[2020-07-27] MEDS: CRANBERRY 500 MG GT SCH (20:52)
[2020-07-27] MEDS: NUTRISOURCE FIBER 4 GM PACKET GT SCH (20:52)
[2020-07-28] MEDS: METOCLOPRAMIDE HCL 10 MG/10 ML UDC GT SCH ×4 (00:11→17:08)
[2020-07-28] MEDS: BACLOFEN 20 MG TABLET GT SCH ×3 (05:21→22:44)
[2020-07-28] MEDS: OMEPRAZOLE 20 MG CAPSULE.DR GT SCH (05:21)
[2020-07-28] MEDS: MULTIVIT, IRON, MIN NO. 8, FA TABLET GT SCH (05:22)
[2020-07-28] MEDS: TWOCAL HN 1,000 ML LIQUID GT PRN (05:22)
[2020-07-28 07:32] VITALS: BP 90/45
[2020-07-28] MEDS: DOCUSATE SODIUM 100 MG/10 ML LIQUID UDC GT SCH (08:35)
[2020-07-28] MEDS: ACIDOPHILUS/BULGARICUS CHEW TAB GT SCH ×2 (08:35→20:38)
[2020-07-28] MEDS: levETIRAcetam 500 MG/5 ML LIQUID UDC GT SCH ×2 (08:35→20:39)
[2020-07-28] MEDS: COD LIVER OIL/ZINC OXIDE OINT 113 GM TUBE TP SCH ×2 (08:36→20:39)
[2020-07-28] MEDS: POTASSIUM CHLORIDE 40 MEQ/30 ML LIQUID UDC GT SCH (08:36)
[2020-07-28] MEDS: MIRALAX 17 GM POWD.PACK GT SCH (08:36)
[2020-07-28 09:00] VITALS: BP 108/59
[2020-07-28] MEDS: HYDROGEN PEROXIDE 3% 118 ML BOTTLE TP SCH ×2 (09:00→21:23)
--- NOTE | 2020-07-28 18:51 | NUR ---
Pt's Father Abdi notified Covid 19 results negative.
[2020-07-28] MEDS: MELATONIN 3MG TABLET GT SCH (20:38)
[2020-07-28] MEDS: NUTRISOURCE FIBER 4 GM PACKET GT SCH (20:39)
[2020-07-28] MEDS: ASCORBIC ACID 500 MG TABLET GT SCH (20:39)
[2020-07-28] MEDS: PROTEIN SUPPLEMENT (PROSTAT) 30 ML LIQUID GT SCH (20:39)
[2020-07-28] MEDS: MAGNESIUM COMPLEX GT SCH (20:39)
[2020-07-28] MEDS: CRANBERRY 500 MG GT SCH (20:39)
[2020-07-28] MEDS: RIVAROXABAN 15 MG TABLET GT SCH (21:00)
[2020-07-28 23:32] VITALS: BP 101/64
[2020-07-29] MEDS: OMEPRAZOLE 20 MG CAPSULE.DR GT SCH (05:25)
[2020-07-29] MEDS: BACLOFEN 20 MG TABLET GT SCH ×3 (05:25→21:20)
[2020-07-29] MEDS: METOCLOPRAMIDE HCL 10 MG/10 ML UDC GT SCH ×5 (05:25→23:10)
[2020-07-29] MEDS: MULTIVIT, IRON, MIN NO. 8, FA TABLET GT SCH (05:25)
[2020-07-29 07:31] VITALS: BP 100/62
[2020-07-29] MEDS: DOCUSATE SODIUM 100 MG/10 ML LIQUID UDC GT SCH (08:51)
[2020-07-29] MEDS: levETIRAcetam 500 MG/5 ML LIQUID UDC GT SCH ×2 (08:52→21:16)
[2020-07-29] MEDS: ACIDOPHILUS/BULGARICUS CHEW TAB GT SCH ×2 (08:52→21:16)
[2020-07-29] MEDS: MIRALAX 17 GM POWD.PACK GT SCH (08:53)
[2020-07-29] MEDS: POTASSIUM CHLORIDE 40 MEQ/30 ML LIQUID UDC GT SCH (08:53)
[2020-07-29] MEDS: COD LIVER OIL/ZINC OXIDE OINT 113 GM TUBE TP SCH ×2 (08:53→21:17)
[2020-07-29] MEDS: HYDROGEN PEROXIDE 3% 118 ML BOTTLE TP SCH ×2 (09:14→21:50)
[2020-07-29] MEDS: TWOCAL HN 1,000 ML LIQUID GT PRN (17:36)
[2020-07-29 20:00] VITALS: BP 109/67
[2020-07-29] MEDS: MELATONIN 3MG TABLET GT SCH (21:16)
[2020-07-29] MEDS: CRANBERRY 500 MG GT SCH (21:16)
[2020-07-29] MEDS: MAGNESIUM COMPLEX GT SCH (21:17)
[2020-07-29] MEDS: ASCORBIC ACID 500 MG TABLET GT SCH (21:17)
[2020-07-29] MEDS: NUTRISOURCE FIBER 4 GM PACKET GT SCH (21:17)
[2020-07-29] MEDS: PROTEIN SUPPLEMENT (PROSTAT) 30 ML LIQUID GT SCH (21:17)
[2020-07-29] MEDS: RIVAROXABAN 15 MG TABLET GT SCH (21:25)
[2020-07-30] MEDS: OMEPRAZOLE 20 MG CAPSULE.DR GT SCH (05:41)
[2020-07-30] MEDS: METOCLOPRAMIDE HCL 10 MG/10 ML UDC GT SCH ×3 (05:41→17:04)
[2020-07-30] MEDS: BACLOFEN 20 MG TABLET GT SCH ×3 (05:41→21:05)
[2020-07-30] MEDS: MULTIVIT, IRON, MIN NO. 8, FA TABLET GT SCH (05:41)
[2020-07-30 07:35] VITALS: BP 96/59
[2020-07-30] MEDS: HYDROGEN PEROXIDE 3% 118 ML BOTTLE TP SCH ×2 (08:15→21:00)
[2020-07-30] MEDS: DOCUSATE SODIUM 100 MG/10 ML LIQUID UDC GT SCH (08:34)
[2020-07-30] MEDS: ACIDOPHILUS/BULGARICUS CHEW TAB GT SCH ×2 (08:34→20:27)
[2020-07-30] MEDS: POTASSIUM CHLORIDE 40 MEQ/30 ML LIQUID UDC GT SCH (08:35)
[2020-07-30] MEDS: COAL TAR TOP SCH (08:35)
[2020-07-30] MEDS: levETIRAcetam 500 MG/5 ML LIQUID UDC GT SCH ×2 (08:35→20:28)
[2020-07-30] MEDS: MIRALAX 17 GM POWD.PACK GT SCH (08:35)
[2020-07-30] MEDS: COD LIVER OIL/ZINC OXIDE OINT 113 GM TUBE TP SCH ×2 (08:35→20:31)
--- NOTE | 2020-07-30 13:00 | NUR ---
Seen and examined by Lu Coleman,no new orders noted.
[2020-07-30 20:00] VITALS: BP 106/62
[2020-07-30] MEDS: MELATONIN 3MG TABLET GT SCH (20:27)
[2020-07-30] MEDS: CRANBERRY 500 MG GT SCH (20:28)
[2020-07-30] MEDS: NUTRISOURCE FIBER 4 GM PACKET GT SCH (20:29)
[2020-07-30] MEDS: MAGNESIUM COMPLEX GT SCH (20:29)
[2020-07-30] MEDS: PROTEIN SUPPLEMENT (PROSTAT) 30 ML LIQUID GT SCH (20:30)
[2020-07-30] MEDS: ASCORBIC ACID 500 MG TABLET GT SCH (20:30)
[2020-07-30] MEDS: RIVAROXABAN 15 MG TABLET GT SCH (21:05)
[2020-07-31] MEDS: BACLOFEN 20 MG TABLET GT SCH ×3 (05:47→22:11)
[2020-07-31] MEDS: MULTIVIT, IRON, MIN NO. 8, FA TABLET GT SCH (05:47)
[2020-07-31] MEDS: OMEPRAZOLE 20 MG CAPSULE.DR GT SCH (05:47)
[2020-07-31] MEDS: METOCLOPRAMIDE HCL 10 MG/10 ML UDC GT SCH ×4 (05:47→17:28)
[2020-07-31 07:37] VITALS: BP 90/41
[2020-07-31] MEDS: HYDROGEN PEROXIDE 3% 118 ML BOTTLE TP SCH ×2 (09:36→21:36)
[2020-07-31] MEDS: levETIRAcetam 500 MG/5 ML LIQUID UDC GT SCH ×2 (09:37→20:20)
[2020-07-31] MEDS: ACIDOPHILUS/BULGARICUS CHEW TAB GT SCH ×2 (09:37→20:19)
[2020-07-31] MEDS: DOCUSATE SODIUM 100 MG/10 ML LIQUID UDC GT SCH (09:37)
[2020-07-31] MEDS: MIRALAX 17 GM POWD.PACK GT SCH (09:38)
[2020-07-31] MEDS: POTASSIUM CHLORIDE 40 MEQ/30 ML LIQUID UDC GT SCH (09:39)
[2020-07-31] MEDS: COD LIVER OIL/ZINC OXIDE OINT 113 GM TUBE TP SCH ×2 (09:40→20:26)
[2020-07-31 20:00] VITALS: BP 105/64
[2020-07-31] MEDS: MELATONIN 3MG TABLET GT SCH (20:19)
[2020-07-31] MEDS: CRANBERRY 500 MG GT SCH (20:21)
[2020-07-31] MEDS: MAGNESIUM COMPLEX GT SCH (20:22)
[2020-07-31] MEDS: NUTRISOURCE FIBER 4 GM PACKET GT SCH (20:22)
[2020-07-31] MEDS: ASCORBIC ACID 500 MG TABLET GT SCH (20:24)
[2020-07-31] MEDS: PROTEIN SUPPLEMENT (PROSTAT) 30 ML LIQUID GT SCH (20:24)
[2020-07-31] MEDS: RIVAROXABAN 15 MG TABLET GT SCH (20:25)
[2020-08-01] MEDS: TWOCAL HN 1,000 ML LIQUID GT PRN (04:00)
[2020-08-01] MEDS: MULTIVIT, IRON, MIN NO. 8, FA TABLET GT SCH (05:15)
[2020-08-01] MEDS: OMEPRAZOLE 20 MG CAPSULE.DR GT SCH (05:15)
[2020-08-01] MEDS: BACLOFEN 20 MG TABLET GT SCH ×3 (05:15→21:09)
[2020-08-01] MEDS: METOCLOPRAMIDE HCL 10 MG/10 ML UDC GT SCH ×4 (05:15→17:08)
[2020-08-01 07:50] VITALS: BP 109/62
[2020-08-01] MEDS: DOCUSATE SODIUM 100 MG/10 ML LIQUID UDC GT SCH (08:35)
[2020-08-01] MEDS: MIRALAX 17 GM POWD.PACK GT SCH (08:35)
[2020-08-01] MEDS: POTASSIUM CHLORIDE 40 MEQ/30 ML LIQUID UDC GT SCH (08:35)
[2020-08-01] MEDS: levETIRAcetam 500 MG/5 ML LIQUID UDC GT SCH ×2 (08:35→21:08)
[2020-08-01] MEDS: ACIDOPHILUS/BULGARICUS CHEW TAB GT SCH ×2 (08:35→21:08)
[2020-08-01] MEDS: COD LIVER OIL/ZINC OXIDE OINT 113 GM TUBE TP SCH ×2 (08:36→21:09)
[2020-08-01] MEDS: HYDROGEN PEROXIDE 3% 118 ML BOTTLE TP SCH ×2 (09:00→21:39)
--- NOTE | 2020-08-01 12:42 | NUR ---
Spoke with Pt's father Abdiismael Franco. Verbal consent given by Abdi Franco for patient to receive COVID 19 Vaccine.
[2020-08-01 19:30] VITALS: BP 105/60
[2020-08-01] MEDS: PROTEIN SUPPLEMENT (PROSTAT) 30 ML LIQUID GT SCH (21:08)
[2020-08-01] MEDS: ASCORBIC ACID 500 MG TABLET GT SCH (21:08)
[2020-08-01] MEDS: MELATONIN 3MG TABLET GT SCH (21:08)
[2020-08-01] MEDS: NUTRISOURCE FIBER 4 GM PACKET GT SCH (21:08)
[2020-08-01] MEDS: MAGNESIUM COMPLEX GT SCH (21:08)
[2020-08-01] MEDS: CRANBERRY 500 MG GT SCH (21:08)
[2020-08-01] MEDS: RIVAROXABAN 15 MG TABLET GT SCH (21:56)
[2020-08-02] MEDS: METOCLOPRAMIDE HCL 10 MG/10 ML UDC GT SCH ×4 (00:55→17:14)
[2020-08-02] MEDS: OMEPRAZOLE 20 MG CAPSULE.DR GT SCH (05:27)
[2020-08-02] MEDS: BACLOFEN 20 MG TABLET GT SCH ×3 (05:27→22:00)
[2020-08-02] MEDS: MULTIVIT, IRON, MIN NO. 8, FA TABLET GT SCH (05:27)
[2020-08-02 08:29] VITALS: BP 101/64
[2020-08-02] MEDS: HYDROGEN PEROXIDE 3% 118 ML BOTTLE TP SCH ×2 (09:00→21:37)
[2020-08-02] MEDS: DOCUSATE SODIUM 100 MG/10 ML LIQUID UDC GT SCH (09:09)
[2020-08-02] MEDS: MIRALAX 17 GM POWD.PACK GT SCH (09:09)
[2020-08-02] MEDS: ACIDOPHILUS/BULGARICUS CHEW TAB GT SCH ×2 (09:09→21:00)
[2020-08-02] MEDS: levETIRAcetam 500 MG/5 ML LIQUID UDC GT SCH ×2 (09:09→21:00)
[2020-08-02] MEDS: POTASSIUM CHLORIDE 40 MEQ/30 ML LIQUID UDC GT SCH (09:10)
[2020-08-02] MEDS: COAL TAR TOP SCH (09:11)
[2020-08-02] MEDS: COD LIVER OIL/ZINC OXIDE OINT 113 GM TUBE TP SCH ×2 (09:11→21:00)
[2020-08-02 19:42] VITALS: BP 104/65
[2020-08-02] MEDS: ASCORBIC ACID 500 MG TABLET GT SCH (21:00)
[2020-08-02] MEDS: MAGNESIUM COMPLEX GT SCH (21:00)
[2020-08-02] MEDS: PROTEIN SUPPLEMENT (PROSTAT) 30 ML LIQUID GT SCH (21:00)
[2020-08-02] MEDS: RIVAROXABAN 15 MG TABLET GT SCH (21:00)
[2020-08-02] MEDS: NUTRISOURCE FIBER 4 GM PACKET GT SCH (21:00)
[2020-08-02] MEDS: MELATONIN 3MG TABLET GT SCH (21:00)
[2020-08-02] MEDS: CRANBERRY 500 MG GT SCH (21:00)
[2020-08-03] MEDS: METOCLOPRAMIDE HCL 10 MG/10 ML UDC GT SCH ×5 (00:31→23:30)
[2020-08-03] MEDS: MULTIVIT, IRON, MIN NO. 8, FA TABLET GT SCH (06:23)
[2020-08-03] MEDS: BACLOFEN 20 MG TABLET GT SCH ×3 (06:23→21:21)
[2020-08-03] MEDS: OMEPRAZOLE 20 MG CAPSULE.DR GT SCH (06:23)
[2020-08-03 07:52] VITALS: BP 98/67
[2020-08-03] MEDS: HYDROGEN PEROXIDE 3% 118 ML BOTTLE TP SCH ×2 (09:05→21:15)
[2020-08-03] MEDS: levETIRAcetam 500 MG/5 ML LIQUID UDC GT SCH ×2 (09:41→20:44)
[2020-08-03] MEDS: MIRALAX 17 GM POWD.PACK GT SCH (09:41)
[2020-08-03] MEDS: DOCUSATE SODIUM 100 MG/10 ML LIQUID UDC GT SCH (09:41)
[2020-08-03] MEDS: ACIDOPHILUS/BULGARICUS CHEW TAB GT SCH ×2 (09:41→20:44)
[2020-08-03] MEDS: POTASSIUM CHLORIDE 40 MEQ/30 ML LIQUID UDC GT SCH (09:41)
[2020-08-03] MEDS: COD LIVER OIL/ZINC OXIDE OINT 113 GM TUBE TP SCH ×2 (09:42→20:47)
[2020-08-03] MEDS: TWOCAL HN 1,000 ML LIQUID GT PRN (17:21)
--- NOTE | 2020-08-03 17:47 | NUR ---
PT'S FATHER MILLI AWARE THAT PT.'S COVID 19 TEST IS NEGATIVE FROM 08/01/20.
[2020-08-03 19:45] VITALS: BP 112/71
[2020-08-03] MEDS: RIVAROXABAN 15 MG TABLET GT SCH (20:42)
[2020-08-03] MEDS: MELATONIN 3MG TABLET GT SCH (20:44)
[2020-08-03] MEDS: ASCORBIC ACID 500 MG TABLET GT SCH (20:47)
[2020-08-03] MEDS: CRANBERRY 500 MG GT SCH (20:47)
[2020-08-03] MEDS: PROTEIN SUPPLEMENT (PROSTAT) 30 ML LIQUID GT SCH (20:47)
[2020-08-03] MEDS: MAGNESIUM COMPLEX GT SCH (20:47)
[2020-08-03] MEDS: NUTRISOURCE FIBER 4 GM PACKET GT SCH (20:47)
[2020-08-04] MEDS: MULTIVIT, IRON, MIN NO. 8, FA TABLET GT SCH (05:36)
[2020-08-04] MEDS: BACLOFEN 20 MG TABLET GT SCH ×3 (05:36→21:02)
[2020-08-04] MEDS: METOCLOPRAMIDE HCL 10 MG/10 ML UDC GT SCH ×4 (05:36→23:18)
[2020-08-04] MEDS: OMEPRAZOLE 20 MG CAPSULE.DR GT SCH (05:36)
[2020-08-04 07:42] VITALS: BP 108/68
[2020-08-04] MEDS: levETIRAcetam 500 MG/5 ML LIQUID UDC GT SCH ×2 (08:58→20:54)
[2020-08-04] MEDS: DOCUSATE SODIUM 100 MG/10 ML LIQUID UDC GT SCH (08:58)
[2020-08-04] MEDS: ACIDOPHILUS/BULGARICUS CHEW TAB GT SCH ×2 (08:58→20:54)
[2020-08-04] MEDS: POTASSIUM CHLORIDE 40 MEQ/30 ML LIQUID UDC GT SCH (08:58)
[2020-08-04] MEDS: COD LIVER OIL/ZINC OXIDE OINT 113 GM TUBE TP SCH ×2 (08:58→20:54)
[2020-08-04] MEDS: MIRALAX 17 GM POWD.PACK GT SCH (08:58)
[2020-08-04] MEDS: HYDROGEN PEROXIDE 3% 118 ML BOTTLE TP SCH ×2 (09:00→21:38)
--- NOTE | 2020-08-04 11:19 | NUR ---
Spoke with Pt's father Jeanne Franco (Responsible libertarian). Verbal consent given by Jeanne Franco for patient to receive COVID 19 Vaccine. Addendum: 08/06/20 at 1045 by JASMEET BRODY RN PT'S MOTHER
[2020-08-04 20:03] VITALS: BP 96/63
[2020-08-04] MEDS: RIVAROXABAN 15 MG TABLET GT SCH (20:45)
[2020-08-04] MEDS: PROTEIN SUPPLEMENT (PROSTAT) 30 ML LIQUID GT SCH (20:54)
[2020-08-04] MEDS: NUTRISOURCE FIBER 4 GM PACKET GT SCH (20:54)
[2020-08-04] MEDS: MELATONIN 3MG TABLET GT SCH (20:54)
[2020-08-04] MEDS: CRANBERRY 500 MG GT SCH (20:54)
[2020-08-04] MEDS: ASCORBIC ACID 500 MG TABLET GT SCH (20:54)
[2020-08-04] MEDS: MAGNESIUM COMPLEX GT SCH (20:54)
[2020-08-05] MEDS: OMEPRAZOLE 20 MG CAPSULE.DR GT SCH (05:34)
[2020-08-05] MEDS: MULTIVIT, IRON, MIN NO. 8, FA TABLET GT SCH (05:34)
[2020-08-05] MEDS: METOCLOPRAMIDE HCL 10 MG/10 ML UDC GT SCH ×4 (05:34→23:28)
[2020-08-05] MEDS: BACLOFEN 20 MG TABLET GT SCH ×3 (05:34→22:27)
[2020-08-05 07:57] VITALS: BP 102/63
[2020-08-05] MEDS: HYDROGEN PEROXIDE 3% 118 ML BOTTLE TP SCH ×2 (09:00→21:45)
[2020-08-05] MEDS: DOCUSATE SODIUM 100 MG/10 ML LIQUID UDC GT SCH (09:42)
[2020-08-05] MEDS: MIRALAX 17 GM POWD.PACK GT SCH (09:43)
[2020-08-05] MEDS: levETIRAcetam 500 MG/5 ML LIQUID UDC GT SCH ×2 (09:43→21:00)
[2020-08-05] MEDS: POTASSIUM CHLORIDE 40 MEQ/30 ML LIQUID UDC GT SCH (09:43)
[2020-08-05] MEDS: ACIDOPHILUS/BULGARICUS CHEW TAB GT SCH ×2 (09:43→21:00)
[2020-08-05] MEDS: COD LIVER OIL/ZINC OXIDE OINT 113 GM TUBE TP SCH ×2 (09:43→20:59)
--- NOTE | 2020-08-05 13:09 | NUR ---
SEEN BY [place] Trotter AND WITH NNO.
--- NOTE | 2020-08-05 18:29 | NUR ---
Video call provided with the pt. and family(mother). No complaints at this time.
[2020-08-05 20:52] VITALS: BP 115/69
[2020-08-05] MEDS: RIVAROXABAN 15 MG TABLET GT SCH (20:59)
[2020-08-05] MEDS: ASCORBIC ACID 500 MG TABLET GT SCH (21:00)
[2020-08-05] MEDS: CRANBERRY 500 MG GT SCH (21:00)
[2020-08-05] MEDS: NUTRISOURCE FIBER 4 GM PACKET GT SCH (21:00)
[2020-08-05] MEDS: MAGNESIUM COMPLEX GT SCH (21:00)
[2020-08-05] MEDS: MELATONIN 3MG TABLET GT SCH (21:00)
[2020-08-05] MEDS: PROTEIN SUPPLEMENT (PROSTAT) 30 ML LIQUID GT SCH (21:00)
[2020-08-06] MEDS: BACLOFEN 20 MG TABLET GT SCH ×3 (05:22→21:34)
[2020-08-06] MEDS: MULTIVIT, IRON, MIN NO. 8, FA TABLET GT SCH (05:22)
[2020-08-06] MEDS: TWOCAL HN 1,000 ML LIQUID GT PRN (05:22)
[2020-08-06] MEDS: OMEPRAZOLE 20 MG CAPSULE.DR GT SCH (05:22)
[2020-08-06] MEDS: METOCLOPRAMIDE HCL 10 MG/10 ML UDC GT SCH ×3 (05:22→17:16)
[2020-08-06] MEDS: HYDROGEN PEROXIDE 3% 118 ML BOTTLE TP SCH ×2 (07:30→21:49)
[2020-08-06 07:57] VITALS: BP 102/49
[2020-08-06] MEDS: ACIDOPHILUS/BULGARICUS CHEW TAB GT SCH ×2 (09:46→21:30)
[2020-08-06] MEDS: DOCUSATE SODIUM 100 MG/10 ML LIQUID UDC GT SCH (09:46)
[2020-08-06] MEDS: COAL TAR TOP SCH (09:47)
[2020-08-06] MEDS: POTASSIUM CHLORIDE 40 MEQ/30 ML LIQUID UDC GT SCH (09:47)
[2020-08-06] MEDS: COD LIVER OIL/ZINC OXIDE OINT 113 GM TUBE TP SCH ×2 (09:47→21:34)
[2020-08-06] MEDS: levETIRAcetam 500 MG/5 ML LIQUID UDC GT SCH ×2 (09:47→21:33)
[2020-08-06] MEDS: MIRALAX 17 GM POWD.PACK GT SCH (09:47)
--- NOTE | 2020-08-06 18:58 | NUR ---
video chat provided with pt. and family (sister). No complaints at this time.
--- NOTE | 2020-08-06 19:56 | NUR ---
New orders to Give COVID vaccine x 1 carried out.
[2020-08-06 20:39] VITALS: BP 124/64
[2020-08-06] MEDS: MELATONIN 3MG TABLET GT SCH (21:30)
[2020-08-06] MEDS: PROTEIN SUPPLEMENT (PROSTAT) 30 ML LIQUID GT SCH (21:33)
[2020-08-06] MEDS: CRANBERRY 500 MG GT SCH (21:33)
[2020-08-06] MEDS: MAGNESIUM COMPLEX GT SCH (21:33)
[2020-08-06] MEDS: NUTRISOURCE FIBER 4 GM PACKET GT SCH (21:33)
[2020-08-06] MEDS: ASCORBIC ACID 500 MG TABLET GT SCH (21:34)
[2020-08-06] MEDS: RIVAROXABAN 15 MG TABLET GT SCH (21:38)
[2020-08-07] MEDS: OMEPRAZOLE 20 MG CAPSULE.DR GT SCH (05:35)
[2020-08-07] MEDS: METOCLOPRAMIDE HCL 10 MG/10 ML UDC GT SCH ×4 (05:35→17:38)
[2020-08-07] MEDS: MULTIVIT, IRON, MIN NO. 8, FA TABLET GT SCH (05:35)
[2020-08-07] MEDS: BACLOFEN 20 MG TABLET GT SCH ×3 (05:35→22:21)
[2020-08-07 07:56] VITALS: BP 120/63
[2020-08-07] MEDS: ACIDOPHILUS/BULGARICUS CHEW TAB GT SCH ×2 (08:28→20:46)
[2020-08-07] MEDS: DOCUSATE SODIUM 100 MG/10 ML LIQUID UDC GT SCH (08:28)
[2020-08-07] MEDS: levETIRAcetam 500 MG/5 ML LIQUID UDC GT SCH ×2 (08:29→20:48)
[2020-08-07] MEDS: MIRALAX 17 GM POWD.PACK GT SCH (08:30)
[2020-08-07] MEDS: POTASSIUM CHLORIDE 40 MEQ/30 ML LIQUID UDC GT SCH (08:30)
[2020-08-07] MEDS: COD LIVER OIL/ZINC OXIDE OINT 113 GM TUBE TP SCH ×2 (08:31→20:50)
[2020-08-07] MEDS: HYDROGEN PEROXIDE 3% 118 ML BOTTLE TP SCH ×2 (09:00→21:32)
--- NOTE | 2020-08-07 18:46 | NUR ---
Pt's father Abdi reed pt received the Covid vaccine,no adverse reaction on close observation.
[2020-08-07 20:00] VITALS: BP 101/56
[2020-08-07] MEDS: MELATONIN 3MG TABLET GT SCH (20:47)
[2020-08-07] MEDS: NUTRISOURCE FIBER 4 GM PACKET GT SCH (20:49)
[2020-08-07] MEDS: MAGNESIUM COMPLEX GT SCH (20:49)
[2020-08-07] MEDS: CRANBERRY 500 MG GT SCH (20:49)
[2020-08-07] MEDS: PROTEIN SUPPLEMENT (PROSTAT) 30 ML LIQUID GT SCH (20:49)
[2020-08-07] MEDS: ASCORBIC ACID 500 MG TABLET GT SCH (20:49)
[2020-08-07] MEDS: RIVAROXABAN 15 MG TABLET GT SCH (21:00)
[~2020-08-08] VITALS: Ht 162.6 cm; Wt 57.6 kg
[2020-08-08] MEDS: TWOCAL HN 1,000 ML LIQUID GT PRN (03:00)
[2020-08-08] MEDS: METOCLOPRAMIDE HCL 10 MG/10 ML UDC GT SCH ×5 (05:26→23:31)
[2020-08-08] MEDS: MULTIVIT, IRON, MIN NO. 8, FA TABLET GT SCH (05:26)
[2020-08-08] MEDS: BACLOFEN 20 MG TABLET GT SCH ×3 (05:26→21:59)
[2020-08-08] MEDS: OMEPRAZOLE 20 MG CAPSULE.DR GT SCH (05:26)
--- NOTE | 2020-08-08 06:10 | NUR ---
no side effects noted from covid vaccine
[2020-08-08 08:02] VITALS: BP 117/60
[2020-08-08] MEDS: levETIRAcetam 500 MG/5 ML LIQUID UDC GT SCH ×2 (09:11→21:56)
[2020-08-08] MEDS: POTASSIUM CHLORIDE 40 MEQ/30 ML LIQUID UDC GT SCH (09:11)
[2020-08-08] MEDS: ACIDOPHILUS/BULGARICUS CHEW TAB GT SCH ×2 (09:11→21:55)
[2020-08-08] MEDS: MIRALAX 17 GM POWD.PACK GT SCH (09:11)
[2020-08-08] MEDS: COD LIVER OIL/ZINC OXIDE OINT 113 GM TUBE TP SCH ×2 (09:11→21:58)
[2020-08-08] MEDS: DOCUSATE SODIUM 100 MG/10 ML LIQUID UDC GT SCH (09:11)
[2020-08-08] MEDS: HYDROGEN PEROXIDE 3% 118 ML BOTTLE TP SCH ×2 (09:25→21:04)
--- NOTE | 2020-08-08 14:00 | NUR ---
zoom provided for patient with mother.
--- NOTE | 2020-08-08 18:41 | NUR ---
no adverse effects noted from covid vaccine.
[2020-08-08] MEDS: BISACODYL 10 MG SUPP.RECT RC PRN (19:00)
[2020-08-08 20:00] VITALS: BP 111/62
[2020-08-08] MEDS: RIVAROXABAN 15 MG TABLET GT SCH (21:00)
[2020-08-08] MEDS: MELATONIN 3MG TABLET GT SCH (21:55)
[2020-08-08] MEDS: NUTRISOURCE FIBER 4 GM PACKET GT SCH (21:58)
[2020-08-08] MEDS: PROTEIN SUPPLEMENT (PROSTAT) 30 ML LIQUID GT SCH (21:58)
[2020-08-08] MEDS: ASCORBIC ACID 500 MG TABLET GT SCH (21:58)
[2020-08-08] MEDS: MAGNESIUM COMPLEX GT SCH (21:58)
[2020-08-08] MEDS: CRANBERRY 500 MG GT SCH (21:58)
[~2020-08-08 23:59] MED LIST changes: +ACETAMINOPHEN 325 MG TABLET-SA PATIENTS-FEVER ONLY GT PRN; +ALBUTEROL SULFATE 2.5 MG/3 ML NEBU NEB PRN; -ASCO500C16 GT; +ASCO500C6 GT; +COD LIVER OIL/ZINC OXIDE OINT 113 GM TUBE TP PRN; +COVID-19 VACC,MRNA(MODERNA)/PF 100 MCG/0.5 ML VIAL IM ONE; +DIATR MEGLU/DIATRIZOATE SODIUM 30 ML BOTTLE PO ONE; +HYDR-4384 GT; -HYDR-552 GT; +HYDROGEN PEROXIDE 3% 118 ML BOTTLE TP PRN; +INFLUENZA VACCINE 2020-2021 0.5 ML DISP.SYRIN IM ONE; +IPRATROPIUM BROMIDE 0.5 MG/2.5 ML NEBU NEB PRN; +SULFAMETHE/TRIMETH 20 ML LIQUID UDC GT SCH; +TUBERCULIN,PURIF.PROT.DERIV. 5 TU/0.1 ML TEST ID ONE
--- NOTE | 2020-08-09 03:40 | NUR ---
Patient is afebrile, no signs of any adverse reactions noted from the COVID-19 vaccine.
[2020-08-09] MEDS: METOCLOPRAMIDE HCL 10 MG/10 ML UDC GT SCH ×3 (06:17→17:22)
[2020-08-09] MEDS: MULTIVIT, IRON, MIN NO. 8, FA TABLET GT SCH (06:17)
[2020-08-09] MEDS: OMEPRAZOLE 20 MG CAPSULE.DR GT SCH (06:17)
[2020-08-09] MEDS: BACLOFEN 20 MG TABLET GT SCH ×3 (06:17→21:02)
[2020-08-09] MEDS: HYDROGEN PEROXIDE 3% 118 ML BOTTLE TP SCH ×2 (07:41→21:55)
[2020-08-09 07:51] VITALS: BP 101/63
[2020-08-09] MEDS: ACIDOPHILUS/BULGARICUS CHEW TAB GT SCH ×2 (08:27→21:02)
[2020-08-09] MEDS: DOCUSATE SODIUM 100 MG/10 ML LIQUID UDC GT SCH (08:27)
[2020-08-09] MEDS: levETIRAcetam 500 MG/5 ML LIQUID UDC GT SCH ×2 (08:28→21:02)
[2020-08-09] MEDS: MIRALAX 17 GM POWD.PACK GT SCH (08:28)
[2020-08-09] MEDS: POTASSIUM CHLORIDE 40 MEQ/30 ML LIQUID UDC GT SCH (08:29)
[2020-08-09] MEDS: COD LIVER OIL/ZINC OXIDE OINT 113 GM TUBE TP SCH ×2 (08:29→21:02)
[2020-08-09] MEDS: COAL TAR TOP SCH (08:29)
--- NOTE | 2020-08-09 13:30 | NUR ---
ZOOM PROVIDED TO SISTER.
--- NOTE | 2020-08-09 14:55 | NUR ---
Patient is afebrile, no signs of any adverse reactions noted from the COVID-19 vaccine.
[2020-08-09 20:00] VITALS: BP 114/70
[2020-08-09] MEDS: MAGNESIUM COMPLEX GT SCH (21:02)
[2020-08-09] MEDS: MELATONIN 3MG TABLET GT SCH (21:02)
[2020-08-09] MEDS: NUTRISOURCE FIBER 4 GM PACKET GT SCH (21:02)
[2020-08-09] MEDS: PROTEIN SUPPLEMENT (PROSTAT) 30 ML LIQUID GT SCH (21:02)
[2020-08-09] MEDS: ASCORBIC ACID 500 MG TABLET GT SCH (21:02)
[2020-08-09] MEDS: CRANBERRY 500 MG GT SCH (21:02)
[2020-08-09] MEDS: RIVAROXABAN 15 MG TABLET GT SCH (21:13)
--- NOTE | 2020-08-09 23:19 | NUR ---
Patient is afebrile, no signs of adverse reaction from Covid-19 vaccine.
[2020-08-10] MEDS: METOCLOPRAMIDE HCL 10 MG/10 ML UDC GT SCH ×4 (00:39→17:20)
[2020-08-10] MEDS: TWOCAL HN 1,000 ML LIQUID GT PRN (01:20)
[2020-08-10] MEDS: OMEPRAZOLE 20 MG CAPSULE.DR GT SCH (05:13)
[2020-08-10] MEDS: MULTIVIT, IRON, MIN NO. 8, FA TABLET GT SCH (05:13)
[2020-08-10] MEDS: BACLOFEN 20 MG TABLET GT SCH ×3 (05:13→21:32)
[2020-08-10 08:08] VITALS: BP 115/74
[2020-08-10] MEDS: DOCUSATE SODIUM 100 MG/10 ML LIQUID UDC GT SCH (08:49)
[2020-08-10] MEDS: ACIDOPHILUS/BULGARICUS CHEW TAB GT SCH ×2 (08:49→21:31)
[2020-08-10] MEDS: levETIRAcetam 500 MG/5 ML LIQUID UDC GT SCH ×2 (08:49→21:31)
[2020-08-10] MEDS: MIRALAX 17 GM POWD.PACK GT SCH (08:49)
[2020-08-10] MEDS: COD LIVER OIL/ZINC OXIDE OINT 113 GM TUBE TP SCH ×2 (08:50→21:32)
[2020-08-10] MEDS: POTASSIUM CHLORIDE 40 MEQ/30 ML LIQUID UDC GT SCH (08:50)
[2020-08-10] MEDS: HYDROGEN PEROXIDE 3% 118 ML BOTTLE TP SCH ×2 (10:20→20:40)
--- NOTE | 2020-08-10 18:35 | NUR ---
No adverse effects noted from Covid 19 vaccine during shift.
[2020-08-10] MEDS: NUTRISOURCE FIBER 4 GM PACKET GT SCH (21:31)
[2020-08-10] MEDS: CRANBERRY 500 MG GT SCH (21:31)
[2020-08-10] MEDS: MELATONIN 3MG TABLET GT SCH (21:31)
[2020-08-10] MEDS: PROTEIN SUPPLEMENT (PROSTAT) 30 ML LIQUID GT SCH (21:31)
[2020-08-10] MEDS: MAGNESIUM COMPLEX GT SCH (21:31)
[2020-08-10] MEDS: ASCORBIC ACID 500 MG TABLET GT SCH (21:32)
[2020-08-10] MEDS: RIVAROXABAN 15 MG TABLET GT SCH (21:35)
[2020-08-10 22:17] VITALS: BP 107/67
[2020-08-11] MEDS: METOCLOPRAMIDE HCL 10 MG/10 ML UDC GT SCH ×4 (00:52→17:28)
[2020-08-11] MEDS: BACLOFEN 20 MG TABLET GT SCH ×3 (05:16→22:08)
[2020-08-11] MEDS: MULTIVIT, IRON, MIN NO. 8, FA TABLET GT SCH (05:17)
[2020-08-11] MEDS: OMEPRAZOLE 20 MG CAPSULE.DR GT SCH (05:17)
[2020-08-11 08:06] VITALS: BP 109/68
[2020-08-11] MEDS: HYDROGEN PEROXIDE 3% 118 ML BOTTLE TP SCH ×2 (09:00→20:42)
[2020-08-11] MEDS: DOCUSATE SODIUM 100 MG/10 ML LIQUID UDC GT SCH (09:44)
[2020-08-11] MEDS: POTASSIUM CHLORIDE 40 MEQ/30 ML LIQUID UDC GT SCH (09:45)
[2020-08-11] MEDS: levETIRAcetam 500 MG/5 ML LIQUID UDC GT SCH ×2 (09:45→21:00)
[2020-08-11] MEDS: ACIDOPHILUS/BULGARICUS CHEW TAB GT SCH ×2 (09:45→21:00)
[2020-08-11] MEDS: MIRALAX 17 GM POWD.PACK GT SCH (09:45)
[2020-08-11] MEDS: COD LIVER OIL/ZINC OXIDE OINT 113 GM TUBE TP SCH ×2 (09:46→21:00)
[2020-08-11] MEDS: POLYVINYL ALCOHOL OPHT DROPS 15 ML BOTTLE EACHEYE PRN (17:29)
--- NOTE | 2020-08-11 18:38 | NUR ---
Pt afebrile. No adverse side effects from Covid19 vaccine.
[2020-08-11] MEDS: MAGNESIUM COMPLEX GT SCH (21:00)
[2020-08-11] MEDS: CRANBERRY 500 MG GT SCH (21:00)
[2020-08-11] MEDS: RIVAROXABAN 15 MG TABLET GT SCH (21:00)
[2020-08-11] MEDS: ASCORBIC ACID 500 MG TABLET GT SCH (21:00)
[2020-08-11] MEDS: MELATONIN 3MG TABLET GT SCH (21:00)
[2020-08-11] MEDS: PROTEIN SUPPLEMENT (PROSTAT) 30 ML LIQUID GT SCH (21:00)
[2020-08-11] MEDS: NUTRISOURCE FIBER 4 GM PACKET GT SCH (21:00)
[2020-08-11 22:00] VITALS: BP 113/73
[2020-08-12] MEDS: METOCLOPRAMIDE HCL 10 MG/10 ML UDC GT SCH ×2 (00:06→06:02)
[2020-08-12] MEDS: TWOCAL HN 1,000 ML LIQUID GT PRN (06:02)
[2020-08-12] MEDS: OMEPRAZOLE 20 MG CAPSULE.DR GT SCH (06:02)
[2020-08-12] MEDS: BACLOFEN 20 MG TABLET GT SCH (06:02)
[2020-08-12] MEDS: MULTIVIT, IRON, MIN NO. 8, FA TABLET GT SCH (06:02)
== END | disposition still patient (30) | DRG 189 ==
LOC: SA 08-09
PROVIDERS: ADMIT Internal Medicine Pulmonary Disease; ATTEND Internal Medicine Pulmonary Disease
DX: J96.11 Chronic respiratory failure with hypoxia (principal); R53.2 Functional quadriplegia; G93.40 Encephalopathy, unspecified; J98.11 Atelectasis; K94.22 Gastrostomy infection; L03.311 Cellulitis of abdominal wall; Z93.0 Tracheostomy status; R13.10 Dysphagia, unspecified; I10 Essential (primary) hypertension; F09 Unspecified mental disorder due to known physiological condition; F32.9 Major depressive disorder, single episode, unspecified; F41.9 Anxiety disorder, unspecified; G40.909 Epilepsy, unspecified, not intractable, without status epilepticus; S02.609D Fracture of mandible, unspecified, subsequent encounter for fracture with routine healing; S06.5X9D Traumatic subdural hemorrhage with loss of consciousness of unspecified duration, subsequent encounter; S06.6X9D Traumatic subarachnoid hemorrhage with loss of consciousness of unspecified duration, subsequent encounter; S22.42XD Multiple fractures of ribs, left side, subsequent encounter for fracture with routine healing; S27.0XXD Traumatic pneumothorax, subsequent encounter; S27.329D Contusion of lung, unspecified, subsequent encounter; S32.401D Unspecified fracture of right acetabulum, subsequent encounter for fracture with routine healing; S32.402D Unspecified fracture of left acetabulum, subsequent encounter for fracture with routine healing; S36.030D Superficial (capsular) laceration of spleen, subsequent encounter; S42.002D Fracture of unspecified part of left clavicle, subsequent encounter for fracture with routine healing; V89.2XXD Person injured in unspecified motor-vehicle accident, traffic, subsequent encounter; M85.80 Other specified disorders of bone density and structure, unspecified site; Z87.820 Personal history of traumatic brain injury; Z91.19 Patient's noncompliance with other medical treatment and regimen; K80.20 Calculus of gallbladder without cholecystitis without obstruction; H00.011 Hordeolum externum right upper eyelid
CPT/HCPCS: 36415; 71045; 74018; 83735; 84100; 85025; 86580; 90686; 94640; A4217; A4663; G0008; Q9963; U0003

== ENCOUNTER 2021-08-09 | Inpatient (IN) | END 2022-08-08 23:59 | disposition still patient (30) | DRG 189 | DX: J96.11 Chronic respiratory failure with hypoxia (principal); G82.50 Quadriplegia, unspecified; G93.40 Encephalopathy, unspecified; J98.11 Atelectasis; B96.5 Pseudomonas (aeruginosa) (mallei) (pseudomallei) as the cause of diseases classified elsewhere; F09 Unspecified mental disorder due to known physiological condition; F32.A Depression, unspecified; F41.9 Anxiety disorder, unspecified; G40.909 Epilepsy, unspecified, not intractable, without status epilepticus; H00.011 Hordeolum externum right upper eyelid; H00.012 Hordeolum externum right lower eyelid; H00.014 Hordeolum externum left upper eyelid; H00.11 Chalazion right upper eyelid; K59.09 Other constipation; K80.20 Calculus of gallbladder without cholecystitis without obstruction; L03.012 Cellulitis of left finger; S06.6X9S Traumatic subarachnoid hemorrhage with loss of consciousness of unspecified duration, sequela; R13.10 Dysphagia, unspecified; S02.609D Fracture of mandible, unspecified, subsequent encounter for fracture with routine healing; S22.42XD Multiple fractures of ribs, left side, subsequent encounter for fracture with routine healing; S27.0XXD Traumatic pneumothorax, subsequent encounter; S27.329D Contusion of lung, unspecified, subsequent encounter; S32.401D Unspecified fracture of right acetabulum, subsequent encounter for fracture with routine healing; S32.402D Unspecified fracture of left acetabulum, subsequent encounter for fracture with routine healing; S36.030D Superficial (capsular) laceration of spleen, subsequent encounter; S42.002D Fracture of unspecified part of left clavicle, subsequent encounter for fracture with routine healing; S60.421A Blister (nonthermal) of left index finger, initial encounter; V89.2XXS Person injured in unspecified motor-vehicle accident, traffic, sequela; V89.2XXD Person injured in unspecified motor-vehicle accident, traffic, subsequent encounter; Z20.822 Contact with and (suspected) exposure to COVID-19; Z93.0 Tracheostomy status; Z87.820 Personal history of traumatic brain injury; Z93.1 Gastrostomy status; X58.XXXA Exposure to other specified factors, initial encounter; Y92.230 Patient room in hospital as the place of occurrence of the external cause ==

== ENCOUNTER 2022-08-09 | Inpatient (IN) | payer MEDICARE, MEDICAID ==
[~2022-08-09] VITALS: Ht 162.6 cm; Wt 57.2 kg
[~2022-08-09] MED LIST changes: -ACETAMINOPHEN 325 MG TABLET-SA PATIENTS-FEVER ONLY GT PRN; -ALBUTEROL SULFATE 2.5 MG/3 ML NEBU NEB PRN; -COD LIVER OIL/ZINC OXIDE OINT 113 GM TUBE TP PRN; -COVID-19 VACC,MRNA(MODERNA)/PF 100 MCG/0.5 ML VIAL IM ONE; -DIATR MEGLU/DIATRIZOATE SODIUM 30 ML BOTTLE PO ONE; -HYDROGEN PEROXIDE 3% 118 ML BOTTLE TP PRN; -INFLUENZA VACCINE 2020-2021 0.5 ML DISP.SYRIN IM ONE; -IPRATROPIUM BROMIDE 0.5 MG/2.5 ML NEBU NEB PRN; -SULFAMETHE/TRIMETH 20 ML LIQUID UDC GT SCH; -TUBERCULIN,PURIF.PROT.DERIV. 5 TU/0.1 ML TEST ID ONE
[2022-08-11 07:22] VITALS: O2SAT 98
[2022-08-11] MEDS: DIVALPROEX SPRINKLE 125 MG CAP.SPRINK GT SCH ×3 (08:00→21:05)
[2022-08-11] MEDS ORDERED: HYDROGEN PEROXIDE 3% 118 ML BOTTLE TP PRN (08:45)
[2022-08-11] MEDS ORDERED: REMEDY ESSENTIAL ZINC PASTE 113 GM TP PRN (09:00)
[2022-08-11] MEDS ORDERED: ACETAMINOPHEN 650 MG/20 ML UDC- SA PATIENTS-FEVER ONLY GT PRN (09:00)
[2022-08-11] MEDS: busPIRone 10 MG TABLET GT SCH ×3 (09:28→17:00)
[2022-08-11] MEDS: POLYVINYL ALCOHOL OPHT DROPS 15 ML BOTTLE EACHEYE SCH ×3 (09:28→17:58)
[2022-08-11] MEDS: DOCUSATE SODIUM 100 MG/10 ML LIQUID UDC GT SCH (09:28)
[2022-08-11] MEDS: ACIDOPHILUS/BULGARICUS CHEW TAB GT SCH ×2 (09:29→21:06)
[2022-08-11] MEDS: levETIRAcetam 500 MG/5 ML LIQUID UDC GT SCH ×2 (09:29→21:06)
[2022-08-11] MEDS: OMEGA-3 FATTY ACIDS/FISH OIL CAPSULE GT SCH (09:29)
[2022-08-11] MEDS: REMEDY ESSENTIAL ZINC PASTE 113 GM TP SCH ×2 (09:30→21:11)
[2022-08-11] MEDS: MIRALAX 17 GM POWD.PACK GT SCH (09:30)
[2022-08-11] MEDS: POTASSIUM CHLORIDE 40 MEQ/30 ML LIQUID UDC GT SCH (09:30)
[2022-08-11] MEDS: NEOMY/BACITRAC/POLYMI OINT 28.35 GM TUBE TP SCH ×2 (09:30→21:11)
[2022-08-11] MEDS: COAL TAR TOP SCH (09:30)
[2022-08-11] MEDS: HYDROGEN PEROXIDE 3% 118 ML BOTTLE TP SCH ×2 (09:52→21:11)
[2022-08-11 10:58] VITALS: TEMP 98
[2022-08-11] MEDS: METOCLOPRAMIDE HCL 10 MG/10 ML UDC GT SCH ×2 (12:00→18:04)
[2022-08-11] MEDS: BACLOFEN 10 MG TABLET GT SCH ×2 (12:00→18:02)
[2022-08-11 13:32] VITALS: O2SAT 98
[2022-08-11] MEDS ORDERED: DIVALPROEX SPRINKLE 125 MG CAP.SPRINK GT SCH (17:00)
[2022-08-11] MEDS: RIVAROXABAN 15 MG TABLET GT SCH (21:00)
[2022-08-11] MEDS: MELATONIN 3MG TABLET GT SCH (21:06)
[2022-08-11 21:07] VITALS: TEMP 97.8
[2022-08-11] MEDS: NUTRISOURCE FIBER 4 GM PACKET GT SCH (21:07)
[2022-08-11] MEDS: PROTEIN SUPPLEMENT (PROSTAT) 30 ML LIQUID GT SCH (21:07)
[2022-08-11] MEDS: CRANBERRY 500 MG GT SCH (21:07)
[2022-08-11] MEDS: MAGNESIUM COMPLEX GT SCH (21:07)
[2022-08-11 22:11] VITALS: O2SAT 98
[2022-08-12] MEDS: METOCLOPRAMIDE HCL 10 MG/10 ML UDC GT SCH ×5 (00:16→23:39)
[2022-08-12] MEDS: BACLOFEN 10 MG TABLET GT SCH ×5 (00:16→23:39)
[2022-08-12] MEDS: OMEPRAZOLE 20 MG CAPSULE.DR GT SCH (05:52)
[2022-08-12] MEDS: MULTIVIT, IRON, MIN NO. 8, FA TABLET GT SCH (05:52)
[2022-08-12 07:15] VITALS: O2SAT 98
[2022-08-12 07:29] VITALS: TEMP 97.3
[2022-08-12] MEDS: HYDROGEN PEROXIDE 3% 118 ML BOTTLE TP SCH ×2 (07:49→20:42)
[2022-08-12] MEDS: POLYVINYL ALCOHOL OPHT DROPS 15 ML BOTTLE EACHEYE SCH ×3 (08:52→16:45)
[2022-08-12] MEDS: busPIRone 10 MG TABLET GT SCH ×3 (08:52→16:46)
[2022-08-12] MEDS: DIVALPROEX SPRINKLE 125 MG CAP.SPRINK GT SCH ×3 (08:52→21:39)
[2022-08-12] MEDS: OMEGA-3 FATTY ACIDS/FISH OIL CAPSULE GT SCH (08:53)
[2022-08-12] MEDS: ACIDOPHILUS/BULGARICUS CHEW TAB GT SCH ×2 (08:53→21:39)
[2022-08-12] MEDS: DOCUSATE SODIUM 100 MG/10 ML LIQUID UDC GT SCH (08:53)
[2022-08-12] MEDS: MIRALAX 17 GM POWD.PACK GT SCH (08:54)
[2022-08-12] MEDS: levETIRAcetam 500 MG/5 ML LIQUID UDC GT SCH ×2 (08:54→21:39)
[2022-08-12] MEDS: POTASSIUM CHLORIDE 40 MEQ/30 ML LIQUID UDC GT SCH (08:54)
[2022-08-12] MEDS: REMEDY ESSENTIAL ZINC PASTE 113 GM TP SCH ×2 (09:01→21:39)
[2022-08-12] MEDS: NEOMY/BACITRAC/POLYMI OINT 28.35 GM TUBE TP SCH ×2 (09:02→21:39)
[2022-08-12 20:30] VITALS: O2SAT 98
[2022-08-12 20:49] VITALS: TEMP 97.8
[2022-08-12] MEDS: RIVAROXABAN 15 MG TABLET GT SCH (21:00)
[2022-08-12] MEDS: MELATONIN 3MG TABLET GT SCH (21:39)
[2022-08-12] MEDS: CRANBERRY 500 MG GT SCH (21:39)
[2022-08-12] MEDS: MAGNESIUM COMPLEX GT SCH (21:39)
[2022-08-12] MEDS: NUTRISOURCE FIBER 4 GM PACKET GT SCH (21:39)
[2022-08-12] MEDS: PROTEIN SUPPLEMENT (PROSTAT) 30 ML LIQUID GT SCH (21:39)
[2022-08-13] MEDS: TWOCAL HN 1,000 ML LIQUID GT PRN (01:30)
[2022-08-13] MEDS: BACLOFEN 10 MG TABLET GT SCH ×4 (05:20→23:14)
[2022-08-13] MEDS: MULTIVIT, IRON, MIN NO. 8, FA TABLET GT SCH (05:20)
[2022-08-13] MEDS: METOCLOPRAMIDE HCL 10 MG/10 ML UDC GT SCH ×4 (05:20→23:14)
[2022-08-13] MEDS: OMEPRAZOLE 20 MG CAPSULE.DR GT SCH (05:20)
[2022-08-13] MEDS: HYDROGEN PEROXIDE 3% 118 ML BOTTLE TP SCH ×2 (07:20→21:21)
[2022-08-13 07:39] VITALS: TEMP 97.6
[2022-08-13] MEDS: POLYVINYL ALCOHOL OPHT DROPS 15 ML BOTTLE EACHEYE SCH ×3 (08:00→17:20)
[2022-08-13] MEDS: busPIRone 10 MG TABLET GT SCH ×3 (08:00→17:21)
[2022-08-13] MEDS: DIVALPROEX SPRINKLE 125 MG CAP.SPRINK GT SCH ×3 (08:00→21:55)
[2022-08-13] MEDS: POTASSIUM CHLORIDE 40 MEQ/30 ML LIQUID UDC GT SCH (08:01)
[2022-08-13] MEDS: MIRALAX 17 GM POWD.PACK GT SCH (08:01)
[2022-08-13] MEDS: OMEGA-3 FATTY ACIDS/FISH OIL CAPSULE GT SCH (08:01)
[2022-08-13] MEDS: ACIDOPHILUS/BULGARICUS CHEW TAB GT SCH ×2 (08:01→21:55)
[2022-08-13] MEDS: levETIRAcetam 500 MG/5 ML LIQUID UDC GT SCH ×2 (08:01→21:56)
[2022-08-13] MEDS: DOCUSATE SODIUM 100 MG/10 ML LIQUID UDC GT SCH (08:01)
[2022-08-13] MEDS: NEOMY/BACITRAC/POLYMI OINT 28.35 GM TUBE TP SCH (08:02)
[2022-08-13] MEDS: REMEDY ESSENTIAL ZINC PASTE 113 GM TP SCH ×2 (08:02→21:56)
[2022-08-13 10:40] VITALS: O2SAT 99
[2022-08-13 20:10] VITALS: O2SAT 98
[2022-08-13 20:38] VITALS: TEMP 98.5
[2022-08-13] MEDS: RIVAROXABAN 15 MG TABLET GT SCH (21:00)
[2022-08-13] MEDS: CRANBERRY 500 MG GT SCH (21:56)
[2022-08-13] MEDS: MELATONIN 3MG TABLET GT SCH (21:56)
[2022-08-13] MEDS: NUTRISOURCE FIBER 4 GM PACKET GT SCH (21:56)
[2022-08-13] MEDS: MAGNESIUM COMPLEX GT SCH (21:56)
[2022-08-13] MEDS: PROTEIN SUPPLEMENT (PROSTAT) 30 ML LIQUID GT SCH (21:56)
[2022-08-14] MEDS: OMEPRAZOLE 20 MG CAPSULE.DR GT SCH (05:00)
[2022-08-14] MEDS: MULTIVIT, IRON, MIN NO. 8, FA TABLET GT SCH (05:00)
[2022-08-14] MEDS: METOCLOPRAMIDE HCL 10 MG/10 ML UDC GT SCH ×3 (05:00→17:10)
[2022-08-14] MEDS: BACLOFEN 10 MG TABLET GT SCH ×3 (05:00→17:10)
[2022-08-14 08:00] VITALS: TEMP 97.2
[2022-08-14] MEDS: DIVALPROEX SPRINKLE 125 MG CAP.SPRINK GT SCH ×3 (08:00→20:35)
[2022-08-14] MEDS: POTASSIUM CHLORIDE 40 MEQ/30 ML LIQUID UDC GT SCH (09:00)
[2022-08-14] MEDS: OMEGA-3 FATTY ACIDS/FISH OIL CAPSULE GT SCH (09:00)
[2022-08-14] MEDS: busPIRone 10 MG TABLET GT SCH ×3 (09:00→17:10)
[2022-08-14] MEDS: REMEDY ESSENTIAL ZINC PASTE 113 GM TP SCH ×2 (09:00→20:35)
[2022-08-14] MEDS: COAL TAR TOP SCH (09:00)
[2022-08-14] MEDS: POLYVINYL ALCOHOL OPHT DROPS 15 ML BOTTLE EACHEYE SCH ×3 (09:00→17:10)
[2022-08-14] MEDS: ACIDOPHILUS/BULGARICUS CHEW TAB GT SCH ×2 (09:00→20:35)
[2022-08-14] MEDS: levETIRAcetam 500 MG/5 ML LIQUID UDC GT SCH ×2 (09:00→20:35)
[2022-08-14] MEDS: DOCUSATE SODIUM 100 MG/10 ML LIQUID UDC GT SCH (09:00)
[2022-08-14] MEDS: MIRALAX 17 GM POWD.PACK GT SCH (09:00)
[2022-08-14 09:33] VITALS: O2SAT 98
[2022-08-14] MEDS: HYDROGEN PEROXIDE 3% 118 ML BOTTLE TP SCH ×2 (09:33→21:00)
[2022-08-14 19:25] VITALS: O2SAT 98
[2022-08-14 20:00] VITALS: TEMP 97.5
[2022-08-14 20:25] VITALS: O2SAT 98
[2022-08-14] MEDS: MAGNESIUM COMPLEX GT SCH (20:35)
[2022-08-14] MEDS: CRANBERRY 500 MG GT SCH (20:35)
[2022-08-14] MEDS: PROTEIN SUPPLEMENT (PROSTAT) 30 ML LIQUID GT SCH (20:35)
[2022-08-14] MEDS: MELATONIN 3MG TABLET GT SCH (20:35)
[2022-08-14] MEDS: NUTRISOURCE FIBER 4 GM PACKET GT SCH (20:35)
[2022-08-14] MEDS: RIVAROXABAN 15 MG TABLET GT SCH (21:00)
[2022-08-15] MEDS: BACLOFEN 10 MG TABLET GT SCH ×5 (05:06→23:02)
[2022-08-15] MEDS: METOCLOPRAMIDE HCL 10 MG/10 ML UDC GT SCH ×5 (05:31→23:02)
[2022-08-15] MEDS: OMEPRAZOLE 20 MG CAPSULE.DR GT SCH (05:31)
[2022-08-15] MEDS: MULTIVIT, IRON, MIN NO. 8, FA TABLET GT SCH (05:31)
[2022-08-15 07:55] VITALS: TEMP 97.7
[2022-08-15] MEDS: HYDROGEN PEROXIDE 3% 118 ML BOTTLE TP SCH ×2 (08:41→21:45)
[2022-08-15] MEDS: DIVALPROEX SPRINKLE 125 MG CAP.SPRINK GT SCH ×3 (09:00→20:29)
[2022-08-15] MEDS: busPIRone 10 MG TABLET GT SCH ×3 (09:21→17:46)
[2022-08-15] MEDS: DOCUSATE SODIUM 100 MG/10 ML LIQUID UDC GT SCH (09:21)
[2022-08-15] MEDS: ACIDOPHILUS/BULGARICUS CHEW TAB GT SCH ×2 (09:21→20:29)
[2022-08-15] MEDS: levETIRAcetam 500 MG/5 ML LIQUID UDC GT SCH ×2 (09:21→20:29)
[2022-08-15] MEDS: POLYVINYL ALCOHOL OPHT DROPS 15 ML BOTTLE EACHEYE SCH ×3 (09:21→17:46)
[2022-08-15] MEDS: OMEGA-3 FATTY ACIDS/FISH OIL CAPSULE GT SCH (09:21)
[2022-08-15] MEDS: REMEDY ESSENTIAL ZINC PASTE 113 GM TP SCH ×2 (09:23→20:29)
[2022-08-15] MEDS: MIRALAX 17 GM POWD.PACK GT SCH (09:23)
[2022-08-15] MEDS: POTASSIUM CHLORIDE 40 MEQ/30 ML LIQUID UDC GT SCH (09:23)
[2022-08-15] MEDS: PROTEIN SUPPLEMENT (PROSTAT) 30 ML LIQUID GT SCH (20:29)
[2022-08-15] MEDS: NUTRISOURCE FIBER 4 GM PACKET GT SCH (20:29)
[2022-08-15] MEDS: MELATONIN 3MG TABLET GT SCH (20:29)
[2022-08-15] MEDS: MAGNESIUM COMPLEX GT SCH (20:29)
[2022-08-15] MEDS: CRANBERRY 500 MG GT SCH (20:29)
[2022-08-15 20:38] VITALS: TEMP 97.9
[2022-08-15] MEDS: RIVAROXABAN 15 MG TABLET GT SCH (21:55)
[2022-08-16] MEDS: OMEPRAZOLE 20 MG CAPSULE.DR GT SCH (05:33)
[2022-08-16] MEDS: METOCLOPRAMIDE HCL 10 MG/10 ML UDC GT SCH ×3 (05:33→17:00)
[2022-08-16] MEDS: MULTIVIT, IRON, MIN NO. 8, FA TABLET GT SCH (05:33)
[2022-08-16] MEDS: BACLOFEN 10 MG TABLET GT SCH ×3 (05:33→17:00)
[2022-08-16 08:00] VITALS: TEMP 98.1
[2022-08-16] MEDS: DIVALPROEX SPRINKLE 125 MG CAP.SPRINK GT SCH ×3 (08:00→21:00)
[2022-08-16] MEDS: HYDROGEN PEROXIDE 3% 118 ML BOTTLE TP SCH ×2 (08:10→21:57)
[2022-08-16] MEDS: POTASSIUM CHLORIDE 40 MEQ/30 ML LIQUID UDC GT SCH (09:11)
[2022-08-16] MEDS: MIRALAX 17 GM POWD.PACK GT SCH (09:11)
[2022-08-16] MEDS: REMEDY ESSENTIAL ZINC PASTE 113 GM TP SCH ×2 (09:11→21:00)
[2022-08-16] MEDS: levETIRAcetam 500 MG/5 ML LIQUID UDC GT SCH ×2 (09:11→21:00)
[2022-08-16] MEDS: ACIDOPHILUS/BULGARICUS CHEW TAB GT SCH ×2 (09:11→21:00)
[2022-08-16] MEDS: POLYVINYL ALCOHOL OPHT DROPS 15 ML BOTTLE EACHEYE SCH ×3 (09:11→17:00)
[2022-08-16] MEDS: busPIRone 10 MG TABLET GT SCH ×3 (09:11→17:00)
[2022-08-16] MEDS: OMEGA-3 FATTY ACIDS/FISH OIL CAPSULE GT SCH (09:11)
[2022-08-16] MEDS: DOCUSATE SODIUM 100 MG/10 ML LIQUID UDC GT SCH (09:11)
[2022-08-16 15:27] VITALS: O2SAT 98
[2022-08-16] MEDS: TWOCAL HN 1,000 ML LIQUID GT PRN (18:10)
[2022-08-16 20:00] VITALS: TEMP 97.8
[2022-08-16 20:30] VITALS: O2SAT 98
[2022-08-16] MEDS: PROTEIN SUPPLEMENT (PROSTAT) 30 ML LIQUID GT SCH (21:00)
[2022-08-16] MEDS: RIVAROXABAN 15 MG TABLET GT SCH (21:00)
[2022-08-16] MEDS: NUTRISOURCE FIBER 4 GM PACKET GT SCH (21:00)
[2022-08-16] MEDS: CRANBERRY 500 MG GT SCH (21:00)
[2022-08-16] MEDS: MAGNESIUM COMPLEX GT SCH (21:00)
[2022-08-16] MEDS: MELATONIN 3MG TABLET GT SCH (21:00)
[2022-08-16 22:49] VITALS: TEMP 97.8
[2022-08-17] MEDS: BACLOFEN 10 MG TABLET GT SCH ×4 (00:47→18:16)
[2022-08-17] MEDS: METOCLOPRAMIDE HCL 10 MG/10 ML UDC GT SCH ×4 (00:47→18:16)
[2022-08-17] MEDS: MULTIVIT, IRON, MIN NO. 8, FA TABLET GT SCH (06:00)
[2022-08-17] MEDS: OMEPRAZOLE 20 MG CAPSULE.DR GT SCH (06:00)
[2022-08-17 07:53] VITALS: TEMP 97.8
[2022-08-17] MEDS: DIVALPROEX SPRINKLE 125 MG CAP.SPRINK GT SCH ×3 (08:00→21:30)
[2022-08-17] MEDS: HYDROGEN PEROXIDE 3% 118 ML BOTTLE TP SCH ×2 (08:32→21:02)
[2022-08-17] MEDS: OMEGA-3 FATTY ACIDS/FISH OIL CAPSULE GT SCH (09:01)
[2022-08-17] MEDS: busPIRone 10 MG TABLET GT SCH ×3 (09:02→16:49)
[2022-08-17] MEDS: POLYVINYL ALCOHOL OPHT DROPS 15 ML BOTTLE EACHEYE SCH ×3 (09:02→16:46)
[2022-08-17] MEDS: levETIRAcetam 500 MG/5 ML LIQUID UDC GT SCH ×2 (09:03→21:30)
[2022-08-17] MEDS: POTASSIUM CHLORIDE 40 MEQ/30 ML LIQUID UDC GT SCH (09:04)
[2022-08-17] MEDS: REMEDY ESSENTIAL ZINC PASTE 113 GM TP SCH ×2 (09:04→21:30)
[2022-08-17] MEDS: DOCUSATE SODIUM 100 MG/10 ML LIQUID UDC GT SCH (09:08)
[2022-08-17] MEDS: MIRALAX 17 GM POWD.PACK GT SCH (09:09)
[2022-08-17] MEDS: ACIDOPHILUS/BULGARICUS CHEW TAB GT SCH ×2 (09:11→21:30)
[2022-08-17 09:30] VITALS: TEMP 94
[2022-08-17 14:03] VITALS: O2SAT 98
[2022-08-17 20:00] VITALS: TEMP 97.4
[2022-08-17 20:20] VITALS: O2SAT 98
[2022-08-17] MEDS: RIVAROXABAN 15 MG TABLET GT SCH (21:00)
[2022-08-17] MEDS: MELATONIN 3MG TABLET GT SCH (21:30)
[2022-08-17] MEDS: MAGNESIUM COMPLEX GT SCH (21:30)
[2022-08-17] MEDS: NUTRISOURCE FIBER 4 GM PACKET GT SCH (21:30)
[2022-08-17] MEDS: PROTEIN SUPPLEMENT (PROSTAT) 30 ML LIQUID GT SCH (21:30)
[2022-08-17] MEDS: CRANBERRY 500 MG GT SCH (21:30)
[2022-08-18] MEDS: OMEPRAZOLE 20 MG CAPSULE.DR GT SCH (06:12)
[2022-08-18] MEDS: METOCLOPRAMIDE HCL 10 MG/10 ML UDC GT SCH ×4 (06:12→17:52)
[2022-08-18] MEDS: BACLOFEN 10 MG TABLET GT SCH ×4 (06:12→17:52)
[2022-08-18] MEDS: MULTIVIT, IRON, MIN NO. 8, FA TABLET GT SCH (06:13)
[2022-08-18 08:00] VITALS: TEMP 97.2
[2022-08-18] MEDS: DIVALPROEX SPRINKLE 125 MG CAP.SPRINK GT SCH ×3 (08:15→21:44)
[2022-08-18] MEDS: busPIRone 10 MG TABLET GT SCH ×3 (08:15→17:52)
[2022-08-18] MEDS: DOCUSATE SODIUM 100 MG/10 ML LIQUID UDC GT SCH (08:15)
[2022-08-18] MEDS: POLYVINYL ALCOHOL OPHT DROPS 15 ML BOTTLE EACHEYE SCH ×3 (08:15→17:52)
[2022-08-18] MEDS: OMEGA-3 FATTY ACIDS/FISH OIL CAPSULE GT SCH (08:16)
[2022-08-18] MEDS: ACIDOPHILUS/BULGARICUS CHEW TAB GT SCH ×2 (08:16→21:45)
[2022-08-18] MEDS: POTASSIUM CHLORIDE 40 MEQ/30 ML LIQUID UDC GT SCH (08:20)
[2022-08-18] MEDS: levETIRAcetam 500 MG/5 ML LIQUID UDC GT SCH ×2 (08:20→21:46)
[2022-08-18] MEDS: MIRALAX 17 GM POWD.PACK GT SCH (08:20)
[2022-08-18] MEDS: COAL TAR TOP SCH (08:27)
[2022-08-18] MEDS: REMEDY ESSENTIAL ZINC PASTE 113 GM TP SCH ×2 (08:27→21:53)
[2022-08-18] MEDS: HYDROGEN PEROXIDE 3% 118 ML BOTTLE TP SCH ×2 (09:00→21:56)
[2022-08-18 10:34] VITALS: O2SAT 98
[2022-08-18] MEDS: ACETAMINOPHEN 650 MG/20 ML UDC- SA PATIENTS-PAIN ONLY GT PRN (11:25)
[2022-08-18 20:00] VITALS: TEMP 97.9
[2022-08-18] MEDS: MELATONIN 3MG TABLET GT SCH (21:45)
[2022-08-18] MEDS: CRANBERRY 500 MG GT SCH (21:46)
[2022-08-18] MEDS: MAGNESIUM COMPLEX GT SCH (21:46)
[2022-08-18] MEDS: NUTRISOURCE FIBER 4 GM PACKET GT SCH (21:47)
[2022-08-18] MEDS: PROTEIN SUPPLEMENT (PROSTAT) 30 ML LIQUID GT SCH (21:51)
[2022-08-18] MEDS: RIVAROXABAN 15 MG TABLET GT SCH (21:53)
[2022-08-18 22:09] VITALS: O2SAT 98
[2022-08-18] MEDS: TWOCAL HN 1,000 ML LIQUID GT PRN (23:00)
[2022-08-19] MEDS: METOCLOPRAMIDE HCL 10 MG/10 ML UDC GT SCH ×4 (06:49→17:39)
[2022-08-19] MEDS: BACLOFEN 10 MG TABLET GT SCH ×4 (06:49→17:39)
[2022-08-19] MEDS: MULTIVIT, IRON, MIN NO. 8, FA TABLET GT SCH (06:49)
[2022-08-19] MEDS: OMEPRAZOLE 20 MG CAPSULE.DR GT SCH (06:49)
[2022-08-19 07:28] VITALS: TEMP 97.6
[2022-08-19] MEDS: HYDROGEN PEROXIDE 3% 118 ML BOTTLE TP SCH ×2 (08:44→20:56)
[2022-08-19] MEDS: POLYVINYL ALCOHOL OPHT DROPS 15 ML BOTTLE EACHEYE SCH ×3 (08:58→17:37)
[2022-08-19] MEDS: DOCUSATE SODIUM 100 MG/10 ML LIQUID UDC GT SCH (08:58)
[2022-08-19] MEDS: DIVALPROEX SPRINKLE 125 MG CAP.SPRINK GT SCH ×3 (08:58→20:29)
[2022-08-19] MEDS: busPIRone 10 MG TABLET GT SCH ×3 (08:58→17:37)
[2022-08-19] MEDS: ACIDOPHILUS/BULGARICUS CHEW TAB GT SCH ×2 (08:59→20:29)
[2022-08-19] MEDS: OMEGA-3 FATTY ACIDS/FISH OIL CAPSULE GT SCH (08:59)
[2022-08-19] MEDS: levETIRAcetam 500 MG/5 ML LIQUID UDC GT SCH ×2 (09:00→20:30)
[2022-08-19] MEDS: REMEDY ESSENTIAL ZINC PASTE 113 GM TP SCH ×2 (09:00→20:33)
[2022-08-19] MEDS: MIRALAX 17 GM POWD.PACK GT SCH (09:00)
[2022-08-19] MEDS: POTASSIUM CHLORIDE 40 MEQ/30 ML LIQUID UDC GT SCH (09:00)
[2022-08-19 15:07] VITALS: O2SAT 98
[2022-08-19 20:00] VITALS: TEMP 97.6
[2022-08-19] MEDS: MELATONIN 3MG TABLET GT SCH (20:30)
[2022-08-19] MEDS: CRANBERRY 500 MG GT SCH (20:30)
[2022-08-19] MEDS: MAGNESIUM COMPLEX GT SCH (20:31)
[2022-08-19] MEDS: PROTEIN SUPPLEMENT (PROSTAT) 30 ML LIQUID GT SCH (20:31)
[2022-08-19] MEDS: NUTRISOURCE FIBER 4 GM PACKET GT SCH (20:31)
[2022-08-19] MEDS: RIVAROXABAN 15 MG TABLET GT SCH (20:32)
[2022-08-19 22:10] VITALS: O2SAT 98
[2022-08-20] MEDS: BACLOFEN 10 MG TABLET GT SCH ×4 (05:46→17:18)
[2022-08-20] MEDS: OMEPRAZOLE 20 MG CAPSULE.DR GT SCH (05:46)
[2022-08-20] MEDS: MULTIVIT, IRON, MIN NO. 8, FA TABLET GT SCH (05:47)
[2022-08-20] MEDS: METOCLOPRAMIDE HCL 10 MG/10 ML UDC GT SCH ×4 (05:47→17:18)
[2022-08-20 07:32] VITALS: TEMP 97.1
[2022-08-20] MEDS: DIVALPROEX SPRINKLE 125 MG CAP.SPRINK GT SCH ×3 (08:00→20:29)
[2022-08-20] MEDS: levETIRAcetam 500 MG/5 ML LIQUID UDC GT SCH ×2 (09:31→20:30)
[2022-08-20] MEDS: MIRALAX 17 GM POWD.PACK GT SCH (09:31)
[2022-08-20] MEDS: DOCUSATE SODIUM 100 MG/10 ML LIQUID UDC GT SCH (09:31)
[2022-08-20] MEDS: POTASSIUM CHLORIDE 40 MEQ/30 ML LIQUID UDC GT SCH (09:31)
[2022-08-20] MEDS: OMEGA-3 FATTY ACIDS/FISH OIL CAPSULE GT SCH (09:31)
[2022-08-20] MEDS: POLYVINYL ALCOHOL OPHT DROPS 15 ML BOTTLE EACHEYE SCH ×3 (09:31→17:18)
[2022-08-20] MEDS: ACIDOPHILUS/BULGARICUS CHEW TAB GT SCH ×2 (09:31→20:29)
[2022-08-20] MEDS: busPIRone 10 MG TABLET GT SCH ×3 (09:31→17:18)
[2022-08-20] MEDS: REMEDY ESSENTIAL ZINC PASTE 113 GM TP SCH ×2 (09:32→20:33)
[2022-08-20 10:13] VITALS: O2SAT 98
[2022-08-20] MEDS: HYDROGEN PEROXIDE 3% 118 ML BOTTLE TP SCH ×2 (10:13→21:06)
[2022-08-20 20:25] VITALS: O2SAT 98
[2022-08-20] MEDS: MELATONIN 3MG TABLET GT SCH (20:29)
[2022-08-20] MEDS: NUTRISOURCE FIBER 4 GM PACKET GT SCH (20:31)
[2022-08-20] MEDS: MAGNESIUM COMPLEX GT SCH (20:31)
[2022-08-20] MEDS: CRANBERRY 500 MG GT SCH (20:31)
[2022-08-20] MEDS: RIVAROXABAN 15 MG TABLET GT SCH (20:33)
[2022-08-20] MEDS: PROTEIN SUPPLEMENT (PROSTAT) 30 ML LIQUID GT SCH (20:33)
[2022-08-20 20:45] VITALS: TEMP 97.8
[2022-08-20] MEDS: TWOCAL HN 1,000 ML LIQUID GT PRN (20:52)
[2022-08-21] MEDS: METOCLOPRAMIDE HCL 10 MG/10 ML UDC GT SCH ×4 (05:50→17:09)
[2022-08-21] MEDS: OMEPRAZOLE 20 MG CAPSULE.DR GT SCH (05:50)
[2022-08-21] MEDS: MULTIVIT, IRON, MIN NO. 8, FA TABLET GT SCH (05:50)
[2022-08-21] MEDS: BACLOFEN 10 MG TABLET GT SCH ×4 (05:50→17:09)
[2022-08-21 07:27] VITALS: TEMP 97.6
[2022-08-21] MEDS: DIVALPROEX SPRINKLE 125 MG CAP.SPRINK GT SCH ×3 (08:00→21:27)
[2022-08-21 08:20] VITALS: O2SAT 98
[2022-08-21] MEDS: HYDROGEN PEROXIDE 3% 118 ML BOTTLE TP SCH ×2 (09:00→20:14)
[2022-08-21] MEDS: DOCUSATE SODIUM 100 MG/10 ML LIQUID UDC GT SCH (09:52)
[2022-08-21] MEDS: POLYVINYL ALCOHOL OPHT DROPS 15 ML BOTTLE EACHEYE SCH ×3 (09:52→17:09)
[2022-08-21] MEDS: busPIRone 10 MG TABLET GT SCH ×3 (09:52→17:09)
[2022-08-21] MEDS: POTASSIUM CHLORIDE 40 MEQ/30 ML LIQUID UDC GT SCH (09:53)
[2022-08-21] MEDS: REMEDY ESSENTIAL ZINC PASTE 113 GM TP SCH ×2 (09:53→21:27)
[2022-08-21] MEDS: ACIDOPHILUS/BULGARICUS CHEW TAB GT SCH ×2 (09:53→21:27)
[2022-08-21] MEDS: COAL TAR TOP SCH (09:53)
[2022-08-21] MEDS: MIRALAX 17 GM POWD.PACK GT SCH (09:53)
[2022-08-21] MEDS: OMEGA-3 FATTY ACIDS/FISH OIL CAPSULE GT SCH (09:53)
[2022-08-21] MEDS: levETIRAcetam 500 MG/5 ML LIQUID UDC GT SCH ×2 (09:53→21:27)
[2022-08-21 20:40] VITALS: O2SAT 98
[2022-08-21] MEDS: RIVAROXABAN 15 MG TABLET GT SCH (21:00)
[2022-08-21] MEDS: CRANBERRY 500 MG GT SCH (21:27)
[2022-08-21] MEDS: PROTEIN SUPPLEMENT (PROSTAT) 30 ML LIQUID GT SCH (21:27)
[2022-08-21] MEDS: NUTRISOURCE FIBER 4 GM PACKET GT SCH (21:27)
[2022-08-21] MEDS: MELATONIN 3MG TABLET GT SCH (21:27)
[2022-08-21] MEDS: MAGNESIUM COMPLEX GT SCH (21:27)
[2022-08-22] MEDS: METOCLOPRAMIDE HCL 10 MG/10 ML UDC GT SCH ×4 (06:57→17:35)
[2022-08-22] MEDS: BACLOFEN 10 MG TABLET GT SCH ×4 (06:57→17:35)
[2022-08-22] MEDS: MULTIVIT, IRON, MIN NO. 8, FA TABLET GT SCH (06:57)
[2022-08-22] MEDS: OMEPRAZOLE 20 MG CAPSULE.DR GT SCH (06:57)
[2022-08-22] MEDS: HYDROGEN PEROXIDE 3% 118 ML BOTTLE TP SCH ×2 (07:48→20:33)
[2022-08-22 07:49] VITALS: TEMP 97.9
[2022-08-22] MEDS: DIVALPROEX SPRINKLE 125 MG CAP.SPRINK GT SCH ×3 (08:54→21:00)
[2022-08-22] MEDS: POLYVINYL ALCOHOL OPHT DROPS 15 ML BOTTLE EACHEYE SCH ×3 (08:55→17:33)
[2022-08-22] MEDS: busPIRone 10 MG TABLET GT SCH ×3 (08:56→17:33)
[2022-08-22] MEDS: DOCUSATE SODIUM 100 MG/10 ML LIQUID UDC GT SCH (08:56)
[2022-08-22] MEDS: ACIDOPHILUS/BULGARICUS CHEW TAB GT SCH ×2 (08:57→21:00)
[2022-08-22] MEDS: MIRALAX 17 GM POWD.PACK GT SCH (08:57)
[2022-08-22] MEDS: OMEGA-3 FATTY ACIDS/FISH OIL CAPSULE GT SCH (08:57)
[2022-08-22] MEDS: levETIRAcetam 500 MG/5 ML LIQUID UDC GT SCH ×2 (08:57→21:00)
[2022-08-22] MEDS: POTASSIUM CHLORIDE 40 MEQ/30 ML LIQUID UDC GT SCH (08:58)
[2022-08-22] MEDS: REMEDY ESSENTIAL ZINC PASTE 113 GM TP SCH ×2 (08:58→21:00)
[2022-08-22 10:35] VITALS: O2SAT 98
[2022-08-22 20:00] VITALS: TEMP 96.8
[2022-08-22 20:50] VITALS: O2SAT 98
[2022-08-22] MEDS: RIVAROXABAN 15 MG TABLET GT SCH (21:00)
[2022-08-22] MEDS: PROTEIN SUPPLEMENT (PROSTAT) 30 ML LIQUID GT SCH (21:00)
[2022-08-22] MEDS: MAGNESIUM COMPLEX GT SCH (21:00)
[2022-08-22] MEDS: MELATONIN 3MG TABLET GT SCH (21:00)
[2022-08-22] MEDS: NUTRISOURCE FIBER 4 GM PACKET GT SCH (21:00)
[2022-08-22] MEDS: CRANBERRY 500 MG GT SCH (21:00)
[2022-08-23] MEDS: METOCLOPRAMIDE HCL 10 MG/10 ML UDC GT SCH ×4 (00:46→17:15)
[2022-08-23] MEDS: BACLOFEN 10 MG TABLET GT SCH ×4 (00:46→17:15)
[2022-08-23] MEDS: MULTIVIT, IRON, MIN NO. 8, FA TABLET GT SCH (06:00)
[2022-08-23] MEDS: OMEPRAZOLE 20 MG CAPSULE.DR GT SCH (06:58)
[2022-08-23 07:57] VITALS: TEMP 97.6
[2022-08-23] MEDS: DIVALPROEX SPRINKLE 125 MG CAP.SPRINK GT SCH ×3 (08:00→20:58)
[2022-08-23 08:43] VITALS: O2SAT 98
[2022-08-23] MEDS: HYDROGEN PEROXIDE 3% 118 ML BOTTLE TP SCH ×2 (08:43→20:17)
[2022-08-23] MEDS: POLYVINYL ALCOHOL OPHT DROPS 15 ML BOTTLE EACHEYE SCH ×3 (09:20→17:15)
[2022-08-23] MEDS: busPIRone 10 MG TABLET GT SCH ×3 (09:20→17:15)
[2022-08-23] MEDS: ACIDOPHILUS/BULGARICUS CHEW TAB GT SCH ×2 (09:22→20:58)
[2022-08-23] MEDS: OMEGA-3 FATTY ACIDS/FISH OIL CAPSULE GT SCH (09:22)
[2022-08-23] MEDS: levETIRAcetam 500 MG/5 ML LIQUID UDC GT SCH ×2 (09:22→20:59)
[2022-08-23] MEDS: MIRALAX 17 GM POWD.PACK GT SCH (09:22)
[2022-08-23] MEDS: REMEDY ESSENTIAL ZINC PASTE 113 GM TP SCH ×2 (09:22→21:01)
[2022-08-23] MEDS: DOCUSATE SODIUM 100 MG/10 ML LIQUID UDC GT SCH (09:22)
[2022-08-23] MEDS: POTASSIUM CHLORIDE 40 MEQ/30 ML LIQUID UDC GT SCH (09:22)
[2022-08-23 20:00] VITALS: TEMP 98.7
[2022-08-23 20:20] VITALS: O2SAT 98
[2022-08-23] MEDS: MELATONIN 3MG TABLET GT SCH (20:58)
[2022-08-23] MEDS: PROTEIN SUPPLEMENT (PROSTAT) 30 ML LIQUID GT SCH (21:00)
[2022-08-23] MEDS: NUTRISOURCE FIBER 4 GM PACKET GT SCH (21:00)
[2022-08-23] MEDS: MAGNESIUM COMPLEX GT SCH (21:00)
[2022-08-23] MEDS: CRANBERRY 500 MG GT SCH (21:00)
[2022-08-23] MEDS: RIVAROXABAN 15 MG TABLET GT SCH (21:01)
[2022-08-24] MEDS: BACLOFEN 10 MG TABLET GT SCH ×5 (05:06→23:02)
[2022-08-24] MEDS: METOCLOPRAMIDE HCL 10 MG/10 ML UDC GT SCH ×5 (05:06→23:02)
[2022-08-24] MEDS: OMEPRAZOLE 20 MG CAPSULE.DR GT SCH (05:06)
[2022-08-24] MEDS: MULTIVIT, IRON, MIN NO. 8, FA TABLET GT SCH (05:06)
[2022-08-24] MEDS: HYDROGEN PEROXIDE 3% 118 ML BOTTLE TP SCH ×2 (07:51→21:00)
[2022-08-24 08:00] VITALS: TEMP 98.8
[2022-08-24] MEDS: DIVALPROEX SPRINKLE 125 MG CAP.SPRINK GT SCH ×3 (08:00→21:57)
[2022-08-24] MEDS: REMEDY ESSENTIAL ZINC PASTE 113 GM TP SCH ×2 (09:00→21:48)
[2022-08-24] MEDS: POLYVINYL ALCOHOL OPHT DROPS 15 ML BOTTLE EACHEYE SCH ×3 (09:00→16:19)
[2022-08-24] MEDS: MIRALAX 17 GM POWD.PACK GT SCH (09:00)
[2022-08-24] MEDS: busPIRone 10 MG TABLET GT SCH ×3 (09:00→16:19)
[2022-08-24] MEDS: levETIRAcetam 500 MG/5 ML LIQUID UDC GT SCH ×2 (09:00→21:57)
[2022-08-24] MEDS: ACIDOPHILUS/BULGARICUS CHEW TAB GT SCH ×2 (09:00→21:57)
[2022-08-24] MEDS: DOCUSATE SODIUM 100 MG/10 ML LIQUID UDC GT SCH (09:00)
[2022-08-24] MEDS: POTASSIUM CHLORIDE 40 MEQ/30 ML LIQUID UDC GT SCH (09:00)
[2022-08-24] MEDS: OMEGA-3 FATTY ACIDS/FISH OIL CAPSULE GT SCH (09:00)
[2022-08-24 13:30] VITALS: O2SAT 98
[2022-08-24 19:45] VITALS: O2SAT 98
[2022-08-24 20:00] VITALS: TEMP 97.7
[2022-08-24] MEDS: RIVAROXABAN 15 MG TABLET GT SCH (21:48)
[2022-08-24] MEDS: CRANBERRY 500 MG GT SCH (21:57)
[2022-08-24] MEDS: MELATONIN 3MG TABLET GT SCH (21:57)
[2022-08-24] MEDS: PROTEIN SUPPLEMENT (PROSTAT) 30 ML LIQUID GT SCH (21:57)
[2022-08-24] MEDS: MAGNESIUM COMPLEX GT SCH (21:57)
[2022-08-24] MEDS: NUTRISOURCE FIBER 4 GM PACKET GT SCH (21:57)
[2022-08-25] MEDS: OMEPRAZOLE 20 MG CAPSULE.DR GT SCH (05:16)
[2022-08-25] MEDS: METOCLOPRAMIDE HCL 10 MG/10 ML UDC GT SCH ×3 (05:16→17:18)
[2022-08-25] MEDS: BACLOFEN 10 MG TABLET GT SCH ×3 (05:16→17:18)
[2022-08-25] MEDS: MULTIVIT, IRON, MIN NO. 8, FA TABLET GT SCH (05:16)
[2022-08-25] MEDS: MIRALAX 17 GM POWD.PACK GT SCH (08:56)
[2022-08-25] MEDS: COAL TAR TOP SCH (08:56)
[2022-08-25] MEDS: levETIRAcetam 500 MG/5 ML LIQUID UDC GT SCH ×2 (08:56→21:03)
[2022-08-25] MEDS: OMEGA-3 FATTY ACIDS/FISH OIL CAPSULE GT SCH (08:56)
[2022-08-25] MEDS: DIVALPROEX SPRINKLE 125 MG CAP.SPRINK GT SCH ×3 (08:56→21:01)
[2022-08-25] MEDS: POLYVINYL ALCOHOL OPHT DROPS 15 ML BOTTLE EACHEYE SCH ×3 (08:56→17:18)
[2022-08-25] MEDS: DOCUSATE SODIUM 100 MG/10 ML LIQUID UDC GT SCH (08:56)
[2022-08-25] MEDS: busPIRone 10 MG TABLET GT SCH ×3 (08:56→17:18)
[2022-08-25] MEDS: POTASSIUM CHLORIDE 40 MEQ/30 ML LIQUID UDC GT SCH (08:56)
[2022-08-25] MEDS: ACIDOPHILUS/BULGARICUS CHEW TAB GT SCH ×2 (08:56→21:02)
[2022-08-25] MEDS: REMEDY ESSENTIAL ZINC PASTE 113 GM TP SCH ×2 (08:57→21:04)
[2022-08-25] MEDS: HYDROGEN PEROXIDE 3% 118 ML BOTTLE TP SCH ×2 (09:00→20:42)
[2022-08-25 11:12] VITALS: TEMP 97.6
[2022-08-25 13:29] VITALS: O2SAT 98
[2022-08-25 20:25] VITALS: TEMP 98.6
[2022-08-25 20:30] VITALS: O2SAT 99
[2022-08-25] MEDS: MELATONIN 3MG TABLET GT SCH (21:03)
[2022-08-25] MEDS: CRANBERRY 500 MG GT SCH (21:04)
[2022-08-25] MEDS: MAGNESIUM COMPLEX GT SCH (21:04)
[2022-08-25] MEDS: PROTEIN SUPPLEMENT (PROSTAT) 30 ML LIQUID GT SCH (21:04)
[2022-08-25] MEDS: NUTRISOURCE FIBER 4 GM PACKET GT SCH (21:04)
[2022-08-25] MEDS: RIVAROXABAN 15 MG TABLET GT SCH (21:10)
[2022-08-26] MEDS: BACLOFEN 10 MG TABLET GT SCH ×4 (00:43→17:03)
[2022-08-26] MEDS: METOCLOPRAMIDE HCL 10 MG/10 ML UDC GT SCH ×4 (00:43→17:03)
[2022-08-26] MEDS: OMEPRAZOLE 20 MG CAPSULE.DR GT SCH (05:02)
[2022-08-26] MEDS: MULTIVIT, IRON, MIN NO. 8, FA TABLET GT SCH (05:02)
[2022-08-26] MEDS: TWOCAL HN 1,000 ML LIQUID GT PRN (05:05)
[2022-08-26] MEDS: busPIRone 10 MG TABLET GT SCH ×3 (08:41→17:03)
[2022-08-26] MEDS: POLYVINYL ALCOHOL OPHT DROPS 15 ML BOTTLE EACHEYE SCH ×3 (08:41→17:03)
[2022-08-26] MEDS: DOCUSATE SODIUM 100 MG/10 ML LIQUID UDC GT SCH (08:41)
[2022-08-26] MEDS: DIVALPROEX SPRINKLE 125 MG CAP.SPRINK GT SCH ×3 (08:41→21:16)
[2022-08-26] MEDS: OMEGA-3 FATTY ACIDS/FISH OIL CAPSULE GT SCH (08:41)
[2022-08-26] MEDS: ACIDOPHILUS/BULGARICUS CHEW TAB GT SCH ×2 (08:41→21:16)
[2022-08-26] MEDS: levETIRAcetam 500 MG/5 ML LIQUID UDC GT SCH ×2 (08:42→21:16)
[2022-08-26] MEDS: REMEDY ESSENTIAL ZINC PASTE 113 GM TP SCH ×2 (08:42→21:17)
[2022-08-26] MEDS: MIRALAX 17 GM POWD.PACK GT SCH (08:42)
[2022-08-26] MEDS: POTASSIUM CHLORIDE 40 MEQ/30 ML LIQUID UDC GT SCH (08:42)
[2022-08-26] MEDS: HYDROGEN PEROXIDE 3% 118 ML BOTTLE TP SCH ×2 (09:00→20:52)
[2022-08-26 11:06] VITALS: TEMP 97.7
[2022-08-26 11:10] VITALS: O2SAT 98
[2022-08-26 20:00] VITALS: TEMP 97.8
[2022-08-26 21:03] VITALS: O2SAT 99
[2022-08-26] MEDS: CRANBERRY 500 MG GT SCH (21:16)
[2022-08-26] MEDS: MELATONIN 3MG TABLET GT SCH (21:16)
[2022-08-26] MEDS: MAGNESIUM COMPLEX GT SCH (21:16)
[2022-08-26] MEDS: PROTEIN SUPPLEMENT (PROSTAT) 30 ML LIQUID GT SCH (21:17)
[2022-08-26] MEDS: RIVAROXABAN 15 MG TABLET GT SCH (21:17)
[2022-08-26] MEDS: NUTRISOURCE FIBER 4 GM PACKET GT SCH (21:17)
[2022-08-27] MEDS: METOCLOPRAMIDE HCL 10 MG/10 ML UDC GT SCH ×4 (00:42→17:24)
[2022-08-27] MEDS: BACLOFEN 10 MG TABLET GT SCH ×4 (00:42→17:24)
[2022-08-27] MEDS: MULTIVIT, IRON, MIN NO. 8, FA TABLET GT SCH (05:07)
[2022-08-27] MEDS: OMEPRAZOLE 20 MG CAPSULE.DR GT SCH (05:07)
[2022-08-27 07:36] VITALS: TEMP 97.3
[2022-08-27] MEDS: REMEDY ESSENTIAL ZINC PASTE 113 GM TP SCH ×2 (08:22→21:49)
[2022-08-27] MEDS: POTASSIUM CHLORIDE 40 MEQ/30 ML LIQUID UDC GT SCH (08:22)
[2022-08-27] MEDS: levETIRAcetam 500 MG/5 ML LIQUID UDC GT SCH ×2 (08:22→21:49)
[2022-08-27] MEDS: ACIDOPHILUS/BULGARICUS CHEW TAB GT SCH ×2 (08:22→21:49)
[2022-08-27] MEDS: busPIRone 10 MG TABLET GT SCH ×3 (08:22→17:24)
[2022-08-27] MEDS: DOCUSATE SODIUM 100 MG/10 ML LIQUID UDC GT SCH (08:22)
[2022-08-27] MEDS: MIRALAX 17 GM POWD.PACK GT SCH (08:22)
[2022-08-27] MEDS: POLYVINYL ALCOHOL OPHT DROPS 15 ML BOTTLE EACHEYE SCH ×3 (08:22→17:24)
[2022-08-27] MEDS: DIVALPROEX SPRINKLE 125 MG CAP.SPRINK GT SCH ×3 (08:22→21:49)
[2022-08-27] MEDS: OMEGA-3 FATTY ACIDS/FISH OIL CAPSULE GT SCH (08:22)
[2022-08-27] MEDS: HYDROGEN PEROXIDE 3% 118 ML BOTTLE TP SCH ×2 (09:00→19:21)
[2022-08-27 11:51] VITALS: O2SAT 98
[2022-08-27 20:00] VITALS: TEMP 98.8
[2022-08-27 20:30] VITALS: O2SAT 99
[2022-08-27] MEDS: CRANBERRY 500 MG GT SCH (21:49)
[2022-08-27] MEDS: RIVAROXABAN 15 MG TABLET GT SCH (21:49)
[2022-08-27] MEDS: MELATONIN 3MG TABLET GT SCH (21:49)
[2022-08-27] MEDS: PROTEIN SUPPLEMENT (PROSTAT) 30 ML LIQUID GT SCH (21:49)
[2022-08-27] MEDS: MAGNESIUM COMPLEX GT SCH (21:49)
[2022-08-27] MEDS: NUTRISOURCE FIBER 4 GM PACKET GT SCH (21:49)
[2022-08-28] MEDS: TWOCAL HN 1,000 ML LIQUID GT PRN (00:37)
[2022-08-28] MEDS: BACLOFEN 10 MG TABLET GT SCH ×4 (00:37→17:03)
[2022-08-28] MEDS: METOCLOPRAMIDE HCL 10 MG/10 ML UDC GT SCH ×4 (00:37→17:03)
[2022-08-28] MEDS: ACETAMINOPHEN 650 MG/20 ML UDC- SA PATIENTS-PAIN ONLY GT PRN (00:51)
[2022-08-28] MEDS: MULTIVIT, IRON, MIN NO. 8, FA TABLET GT SCH (05:16)
[2022-08-28] MEDS: OMEPRAZOLE 20 MG CAPSULE.DR GT SCH (05:16)
[2022-08-28] MEDS: HYDROGEN PEROXIDE 3% 118 ML BOTTLE TP SCH ×2 (07:19→19:18)
[2022-08-28 08:00] VITALS: TEMP 97.4
[2022-08-28] MEDS: DIVALPROEX SPRINKLE 125 MG CAP.SPRINK GT SCH ×3 (08:00→21:54)
[2022-08-28] MEDS: POLYVINYL ALCOHOL OPHT DROPS 15 ML BOTTLE EACHEYE SCH ×3 (09:15→17:03)
[2022-08-28] MEDS: OMEGA-3 FATTY ACIDS/FISH OIL CAPSULE GT SCH (09:15)
[2022-08-28] MEDS: busPIRone 10 MG TABLET GT SCH ×3 (09:15→17:03)
[2022-08-28] MEDS: DOCUSATE SODIUM 100 MG/10 ML LIQUID UDC GT SCH (09:15)
[2022-08-28] MEDS: ACIDOPHILUS/BULGARICUS CHEW TAB GT SCH ×2 (09:16→21:55)
[2022-08-28] MEDS: MIRALAX 17 GM POWD.PACK GT SCH (09:16)
[2022-08-28] MEDS: levETIRAcetam 500 MG/5 ML LIQUID UDC GT SCH ×2 (09:16→21:55)
[2022-08-28] MEDS: POTASSIUM CHLORIDE 40 MEQ/30 ML LIQUID UDC GT SCH (09:20)
[2022-08-28] MEDS: COAL TAR TOP SCH (09:20)
[2022-08-28] MEDS: REMEDY ESSENTIAL ZINC PASTE 113 GM TP SCH ×2 (09:20→21:56)
[2022-08-28 10:35] VITALS: O2SAT 99
[2022-08-28 20:00] VITALS: TEMP 98
[2022-08-28 21:00] VITALS: O2SAT 99
[2022-08-28] MEDS: CRANBERRY 500 MG GT SCH (21:55)
[2022-08-28] MEDS: MELATONIN 3MG TABLET GT SCH (21:55)
[2022-08-28] MEDS: MAGNESIUM COMPLEX GT SCH (21:55)
[2022-08-28] MEDS: NUTRISOURCE FIBER 4 GM PACKET GT SCH (21:56)
[2022-08-28] MEDS: PROTEIN SUPPLEMENT (PROSTAT) 30 ML LIQUID GT SCH (21:56)
[2022-08-28] MEDS: RIVAROXABAN 15 MG TABLET GT SCH (21:57)
[2022-08-29] MEDS: BACLOFEN 10 MG TABLET GT SCH ×5 (00:34→23:05)
[2022-08-29] MEDS: METOCLOPRAMIDE HCL 10 MG/10 ML UDC GT SCH ×5 (00:34→23:05)
[2022-08-29] MEDS: OMEPRAZOLE 20 MG CAPSULE.DR GT SCH (05:33)
[2022-08-29] MEDS: MULTIVIT, IRON, MIN NO. 8, FA TABLET GT SCH (05:33)
[2022-08-29 07:46] VITALS: TEMP 97.4
[2022-08-29] MEDS: HYDROGEN PEROXIDE 3% 118 ML BOTTLE TP SCH ×2 (08:23→19:14)
[2022-08-29] MEDS: POLYVINYL ALCOHOL OPHT DROPS 15 ML BOTTLE EACHEYE SCH ×3 (08:52→17:18)
[2022-08-29] MEDS: DIVALPROEX SPRINKLE 125 MG CAP.SPRINK GT SCH ×3 (08:52→21:46)
[2022-08-29] MEDS: levETIRAcetam 500 MG/5 ML LIQUID UDC GT SCH ×2 (08:53→21:46)
[2022-08-29] MEDS: MIRALAX 17 GM POWD.PACK GT SCH (08:53)
[2022-08-29] MEDS: POTASSIUM CHLORIDE 40 MEQ/30 ML LIQUID UDC GT SCH (08:53)
[2022-08-29] MEDS: OMEGA-3 FATTY ACIDS/FISH OIL CAPSULE GT SCH (08:53)
[2022-08-29] MEDS: REMEDY ESSENTIAL ZINC PASTE 113 GM TP SCH ×2 (08:53→21:46)
[2022-08-29] MEDS: ACIDOPHILUS/BULGARICUS CHEW TAB GT SCH ×2 (08:53→21:46)
[2022-08-29] MEDS: DOCUSATE SODIUM 100 MG/10 ML LIQUID UDC GT SCH (08:53)
[2022-08-29] MEDS: busPIRone 10 MG TABLET GT SCH ×3 (08:53→17:18)
[2022-08-29 10:40] VITALS: O2SAT 97
[2022-08-29 20:11] VITALS: TEMP 98.5
[2022-08-29 20:30] VITALS: O2SAT 99
[2022-08-29] MEDS: MAGNESIUM COMPLEX GT SCH (21:46)
[2022-08-29] MEDS: CRANBERRY 500 MG GT SCH (21:46)
[2022-08-29] MEDS: MELATONIN 3MG TABLET GT SCH (21:46)
[2022-08-29] MEDS: NUTRISOURCE FIBER 4 GM PACKET GT SCH (21:46)
[2022-08-29] MEDS: PROTEIN SUPPLEMENT (PROSTAT) 30 ML LIQUID GT SCH (21:46)
[2022-08-29] MEDS: RIVAROXABAN 15 MG TABLET GT SCH (21:47)
[2022-08-29] MEDS: TWOCAL HN 1,000 ML LIQUID GT PRN (22:43)
[2022-08-30] MEDS: BACLOFEN 10 MG TABLET GT SCH ×3 (05:45→17:45)
[2022-08-30] MEDS: MULTIVIT, IRON, MIN NO. 8, FA TABLET GT SCH (05:46)
[2022-08-30] MEDS: OMEPRAZOLE 20 MG CAPSULE.DR GT SCH (05:46)
[2022-08-30] MEDS: METOCLOPRAMIDE HCL 10 MG/10 ML UDC GT SCH ×3 (05:46→17:45)
[2022-08-30 08:00] VITALS: TEMP 97.7
[2022-08-30] MEDS: DIVALPROEX SPRINKLE 125 MG CAP.SPRINK GT SCH ×3 (08:00→22:00)
[2022-08-30] MEDS: HYDROGEN PEROXIDE 3% 118 ML BOTTLE TP SCH ×2 (09:27→21:00)
[2022-08-30 09:28] VITALS: O2SAT 99
[2022-08-30] MEDS: POLYVINYL ALCOHOL OPHT DROPS 15 ML BOTTLE EACHEYE SCH ×3 (09:35→17:45)
[2022-08-30] MEDS: ACIDOPHILUS/BULGARICUS CHEW TAB GT SCH ×2 (09:36→22:22)
[2022-08-30] MEDS: levETIRAcetam 500 MG/5 ML LIQUID UDC GT SCH ×2 (09:36→22:00)
[2022-08-30] MEDS: busPIRone 10 MG TABLET GT SCH ×3 (09:36→17:45)
[2022-08-30] MEDS: OMEGA-3 FATTY ACIDS/FISH OIL CAPSULE GT SCH (09:36)
[2022-08-30] MEDS: DOCUSATE SODIUM 100 MG/10 ML LIQUID UDC GT SCH (09:36)
[2022-08-30] MEDS: POTASSIUM CHLORIDE 40 MEQ/30 ML LIQUID UDC GT SCH (09:37)
[2022-08-30] MEDS: MIRALAX 17 GM POWD.PACK GT SCH (09:37)
[2022-08-30] MEDS: REMEDY ESSENTIAL ZINC PASTE 113 GM TP SCH ×2 (09:38→22:00)
[2022-08-30 20:00] VITALS: TEMP 97.3
[2022-08-30 20:24] VITALS: O2SAT 99
[2022-08-30] MEDS: PROTEIN SUPPLEMENT (PROSTAT) 30 ML LIQUID GT SCH (22:00)
[2022-08-30] MEDS: MAGNESIUM COMPLEX GT SCH (22:00)
[2022-08-30] MEDS: MELATONIN 3MG TABLET GT SCH (22:00)
[2022-08-30] MEDS: CRANBERRY 500 MG GT SCH (22:00)
[2022-08-30] MEDS: NUTRISOURCE FIBER 4 GM PACKET GT SCH (22:22)
[2022-08-30] MEDS: RIVAROXABAN 15 MG TABLET GT SCH (23:00)
[2022-08-31] MEDS: METOCLOPRAMIDE HCL 10 MG/10 ML UDC GT SCH ×4 (00:10→17:56)
[2022-08-31] MEDS: BACLOFEN 10 MG TABLET GT SCH ×5 (00:10→21:00)
[2022-08-31] MEDS: MULTIVIT, IRON, MIN NO. 8, FA TABLET GT SCH (06:40)
[2022-08-31] MEDS: OMEPRAZOLE 20 MG CAPSULE.DR GT SCH (06:40)
[2022-08-31 07:49] VITALS: TEMP 98
[2022-08-31] MEDS: HYDROGEN PEROXIDE 3% 118 ML BOTTLE TP SCH ×2 (08:23→21:28)
[2022-08-31] MEDS: DOCUSATE SODIUM 100 MG/10 ML LIQUID UDC GT SCH (08:56)
[2022-08-31] MEDS: busPIRone 10 MG TABLET GT SCH ×3 (08:56→17:56)
[2022-08-31] MEDS: POLYVINYL ALCOHOL OPHT DROPS 15 ML BOTTLE EACHEYE SCH ×3 (08:56→17:56)
[2022-08-31] MEDS: DIVALPROEX SPRINKLE 125 MG CAP.SPRINK GT SCH ×3 (08:56→21:00)
[2022-08-31] MEDS: ACIDOPHILUS/BULGARICUS CHEW TAB GT SCH ×2 (08:57→21:00)
[2022-08-31] MEDS: MIRALAX 17 GM POWD.PACK GT SCH (08:57)
[2022-08-31] MEDS: REMEDY ESSENTIAL ZINC PASTE 113 GM TP SCH ×2 (08:57→21:00)
[2022-08-31] MEDS: POTASSIUM CHLORIDE 40 MEQ/30 ML LIQUID UDC GT SCH (08:57)
[2022-08-31] MEDS: OMEGA-3 FATTY ACIDS/FISH OIL CAPSULE GT SCH (08:57)
[2022-08-31] MEDS: levETIRAcetam 500 MG/5 ML LIQUID UDC GT SCH ×2 (08:57→21:00)
[2022-08-31 10:30] VITALS: O2SAT 99
[2022-08-31 20:00] VITALS: TEMP 98.1
[2022-08-31] MEDS: RIVAROXABAN 15 MG TABLET GT SCH (21:00)
[2022-08-31] MEDS: NUTRISOURCE FIBER 4 GM PACKET GT SCH (21:00)
[2022-08-31] MEDS: MAGNESIUM COMPLEX GT SCH (21:00)
[2022-08-31] MEDS: PROTEIN SUPPLEMENT (PROSTAT) 30 ML LIQUID GT SCH (21:00)
[2022-08-31] MEDS: CRANBERRY 500 MG GT SCH (21:00)
[2022-08-31] MEDS: MELATONIN 3MG TABLET GT SCH (21:00)
[2022-08-31 21:28] VITALS: O2SAT 99
[2022-09-01] MEDS: MULTIVIT, IRON, MIN NO. 8, FA TABLET GT SCH (06:58)
[2022-09-01] MEDS: OMEPRAZOLE 20 MG CAPSULE.DR GT SCH (06:58)
[2022-09-01] MEDS: METOCLOPRAMIDE HCL 10 MG/10 ML UDC GT SCH ×4 (06:58→17:41)
[2022-09-01] MEDS: BACLOFEN 10 MG TABLET GT SCH ×3 (06:58→17:41)
[2022-09-01 07:12] VITALS: TEMP 98.2
[2022-09-01 07:13] VITALS: O2SAT 98
[2022-09-01] MEDS: busPIRone 10 MG TABLET GT SCH ×3 (08:01→17:40)
[2022-09-01] MEDS: DIVALPROEX SPRINKLE 125 MG CAP.SPRINK GT SCH ×3 (08:01→20:27)
[2022-09-01] MEDS: DOCUSATE SODIUM 100 MG/10 ML LIQUID UDC GT SCH (08:01)
[2022-09-01] MEDS: POLYVINYL ALCOHOL OPHT DROPS 15 ML BOTTLE EACHEYE SCH ×3 (08:01→17:40)
[2022-09-01] MEDS: ACIDOPHILUS/BULGARICUS CHEW TAB GT SCH ×2 (08:04→20:27)
[2022-09-01] MEDS: OMEGA-3 FATTY ACIDS/FISH OIL CAPSULE GT SCH (08:04)
[2022-09-01] MEDS: levETIRAcetam 500 MG/5 ML LIQUID UDC GT SCH ×2 (08:05→20:28)
[2022-09-01] MEDS: POTASSIUM CHLORIDE 40 MEQ/30 ML LIQUID UDC GT SCH (08:05)
[2022-09-01] MEDS: MIRALAX 17 GM POWD.PACK GT SCH (08:05)
[2022-09-01] MEDS: COAL TAR TOP SCH (08:08)
[2022-09-01] MEDS: REMEDY ESSENTIAL ZINC PASTE 113 GM TP SCH ×2 (08:08→20:32)
[2022-09-01] MEDS: HYDROGEN PEROXIDE 3% 118 ML BOTTLE TP SCH ×2 (09:00→21:20)
[2022-09-01] MEDS: ACETAMINOPHEN 650 MG/20 ML UDC- SA PATIENTS-PAIN ONLY GT PRN (14:19)
[2022-09-01 17:05] VITALS: O2SAT 98
[2022-09-01 20:00] VITALS: TEMP 98.8
[2022-09-01] MEDS: MELATONIN 3MG TABLET GT SCH (20:27)
[2022-09-01] MEDS: CRANBERRY 500 MG GT SCH (20:29)
[2022-09-01] MEDS: NUTRISOURCE FIBER 4 GM PACKET GT SCH (20:29)
[2022-09-01] MEDS: MAGNESIUM COMPLEX GT SCH (20:29)
[2022-09-01] MEDS: PROTEIN SUPPLEMENT (PROSTAT) 30 ML LIQUID GT SCH (20:31)
[2022-09-01] MEDS: RIVAROXABAN 15 MG TABLET GT SCH (20:31)
[2022-09-01 22:14] VITALS: O2SAT 99
[2022-09-02] MEDS: OMEPRAZOLE 20 MG CAPSULE.DR GT SCH (05:53)
[2022-09-02] MEDS: MULTIVIT, IRON, MIN NO. 8, FA TABLET GT SCH (05:53)
[2022-09-02] MEDS: METOCLOPRAMIDE HCL 10 MG/10 ML UDC GT SCH ×4 (05:53→18:33)
[2022-09-02] MEDS: BACLOFEN 10 MG TABLET GT SCH ×4 (05:53→18:33)
[2022-09-02 07:07] VITALS: TEMP 97.1
[2022-09-02] MEDS: POLYVINYL ALCOHOL OPHT DROPS 15 ML BOTTLE EACHEYE SCH ×3 (08:21→16:04)
[2022-09-02] MEDS: busPIRone 10 MG TABLET GT SCH ×3 (08:21→16:06)
[2022-09-02] MEDS: DIVALPROEX SPRINKLE 125 MG CAP.SPRINK GT SCH ×3 (08:21→20:46)
[2022-09-02] MEDS: DOCUSATE SODIUM 100 MG/10 ML LIQUID UDC GT SCH (08:22)
[2022-09-02] MEDS: REMEDY ESSENTIAL ZINC PASTE 113 GM TP SCH ×2 (08:28→20:50)
[2022-09-02] MEDS: POTASSIUM CHLORIDE 40 MEQ/30 ML LIQUID UDC GT SCH (08:28)
[2022-09-02] MEDS: MIRALAX 17 GM POWD.PACK GT SCH (08:28)
[2022-09-02] MEDS: ACIDOPHILUS/BULGARICUS CHEW TAB GT SCH ×2 (08:28→20:47)
[2022-09-02] MEDS: levETIRAcetam 500 MG/5 ML LIQUID UDC GT SCH ×2 (08:28→20:48)
[2022-09-02] MEDS: OMEGA-3 FATTY ACIDS/FISH OIL CAPSULE GT SCH (08:28)
[2022-09-02] MEDS: HYDROGEN PEROXIDE 3% 118 ML BOTTLE TP SCH ×2 (08:55→21:01)
[2022-09-02 10:40] VITALS: O2SAT 98
[2022-09-02] MEDS: TWOCAL HN 1,000 ML LIQUID GT PRN (16:07)
[2022-09-02 19:17] VITALS: O2SAT 99
[2022-09-02 20:00] VITALS: TEMP 98.8
[2022-09-02] MEDS: MELATONIN 3MG TABLET GT SCH (20:48)
[2022-09-02] MEDS: CRANBERRY 500 MG GT SCH (20:49)
[2022-09-02] MEDS: NUTRISOURCE FIBER 4 GM PACKET GT SCH (20:49)
[2022-09-02] MEDS: MAGNESIUM COMPLEX GT SCH (20:49)
[2022-09-02] MEDS: RIVAROXABAN 15 MG TABLET GT SCH (20:50)
[2022-09-02] MEDS: PROTEIN SUPPLEMENT (PROSTAT) 30 ML LIQUID GT SCH (20:50)
[2022-09-03] MEDS: OMEPRAZOLE 20 MG CAPSULE.DR GT SCH (06:23)
[2022-09-03] MEDS: MULTIVIT, IRON, MIN NO. 8, FA TABLET GT SCH (06:23)
[2022-09-03] MEDS: METOCLOPRAMIDE HCL 10 MG/10 ML UDC GT SCH ×4 (06:23→17:12)
[2022-09-03] MEDS: BACLOFEN 10 MG TABLET GT SCH ×4 (06:23→17:11)
[2022-09-03] MEDS: DIVALPROEX SPRINKLE 125 MG CAP.SPRINK GT SCH ×3 (08:00→20:29)
[2022-09-03] MEDS: POLYVINYL ALCOHOL OPHT DROPS 15 ML BOTTLE EACHEYE SCH ×3 (09:41→17:11)
[2022-09-03] MEDS: POTASSIUM CHLORIDE 40 MEQ/30 ML LIQUID UDC GT SCH (09:41)
[2022-09-03] MEDS: ACIDOPHILUS/BULGARICUS CHEW TAB GT SCH ×2 (09:41→20:29)
[2022-09-03] MEDS: DOCUSATE SODIUM 100 MG/10 ML LIQUID UDC GT SCH (09:41)
[2022-09-03] MEDS: busPIRone 10 MG TABLET GT SCH ×3 (09:41→17:11)
[2022-09-03] MEDS: levETIRAcetam 500 MG/5 ML LIQUID UDC GT SCH ×2 (09:41→20:30)
[2022-09-03] MEDS: MIRALAX 17 GM POWD.PACK GT SCH (09:41)
[2022-09-03] MEDS: OMEGA-3 FATTY ACIDS/FISH OIL CAPSULE GT SCH (09:41)
[2022-09-03] MEDS: REMEDY ESSENTIAL ZINC PASTE 113 GM TP SCH ×2 (09:42→20:32)
[2022-09-03 10:00] VITALS: O2SAT 98
[2022-09-03] MEDS: HYDROGEN PEROXIDE 3% 118 ML BOTTLE TP SCH ×2 (10:00→20:57)
[2022-09-03 20:00] VITALS: TEMP 98.8
[2022-09-03 20:15] VITALS: O2SAT 99
[2022-09-03] MEDS: MELATONIN 3MG TABLET GT SCH (20:29)
[2022-09-03] MEDS: CRANBERRY 500 MG GT SCH (20:30)
[2022-09-03] MEDS: MAGNESIUM COMPLEX GT SCH (20:31)
[2022-09-03] MEDS: NUTRISOURCE FIBER 4 GM PACKET GT SCH (20:32)
[2022-09-03] MEDS: PROTEIN SUPPLEMENT (PROSTAT) 30 ML LIQUID GT SCH (21:00)
[2022-09-03] MEDS: RIVAROXABAN 15 MG TABLET GT SCH (21:28)
[2022-09-04] MEDS: METOCLOPRAMIDE HCL 10 MG/10 ML UDC GT SCH ×4 (05:26→17:13)
[2022-09-04] MEDS: MULTIVIT, IRON, MIN NO. 8, FA TABLET GT SCH (05:26)
[2022-09-04] MEDS: OMEPRAZOLE 20 MG CAPSULE.DR GT SCH (05:26)
[2022-09-04] MEDS: BACLOFEN 10 MG TABLET GT SCH ×4 (05:26→17:12)
[2022-09-04 07:31] VITALS: TEMP 97.6
[2022-09-04] MEDS: DIVALPROEX SPRINKLE 125 MG CAP.SPRINK GT SCH ×3 (08:00→21:00)
[2022-09-04] MEDS: ACIDOPHILUS/BULGARICUS CHEW TAB GT SCH ×2 (09:16→21:00)
[2022-09-04] MEDS: busPIRone 10 MG TABLET GT SCH ×3 (09:16→17:12)
[2022-09-04] MEDS: OMEGA-3 FATTY ACIDS/FISH OIL CAPSULE GT SCH (09:16)
[2022-09-04] MEDS: POLYVINYL ALCOHOL OPHT DROPS 15 ML BOTTLE EACHEYE SCH ×3 (09:16→17:12)
[2022-09-04] MEDS: DOCUSATE SODIUM 100 MG/10 ML LIQUID UDC GT SCH (09:16)
[2022-09-04] MEDS: MIRALAX 17 GM POWD.PACK GT SCH (09:16)
[2022-09-04] MEDS: levETIRAcetam 500 MG/5 ML LIQUID UDC GT SCH ×2 (09:16→21:00)
[2022-09-04] MEDS: REMEDY ESSENTIAL ZINC PASTE 113 GM TP SCH ×2 (09:17→21:00)
[2022-09-04] MEDS: COAL TAR TOP SCH (09:17)
[2022-09-04] MEDS: POTASSIUM CHLORIDE 40 MEQ/30 ML LIQUID UDC GT SCH (09:17)
[2022-09-04] MEDS: HYDROGEN PEROXIDE 3% 118 ML BOTTLE TP SCH ×2 (09:24→20:43)
[2022-09-04 20:00] VITALS: TEMP 98.6
[2022-09-04 20:25] VITALS: O2SAT 99
[2022-09-04] MEDS: PROTEIN SUPPLEMENT (PROSTAT) 30 ML LIQUID GT SCH (21:00)
[2022-09-04] MEDS: MELATONIN 3MG TABLET GT SCH (21:00)
[2022-09-04] MEDS: MAGNESIUM COMPLEX GT SCH (21:00)
[2022-09-04] MEDS: CRANBERRY 500 MG GT SCH (21:00)
[2022-09-04] MEDS: NUTRISOURCE FIBER 4 GM PACKET GT SCH (21:00)
[2022-09-04] MEDS: RIVAROXABAN 15 MG TABLET GT SCH (21:00)
[2022-09-05] MEDS: BACLOFEN 10 MG TABLET GT SCH ×5 (00:14→23:19)
[2022-09-05] MEDS: METOCLOPRAMIDE HCL 10 MG/10 ML UDC GT SCH ×5 (00:14→23:19)
[2022-09-05] MEDS: TWOCAL HN 1,000 ML LIQUID GT PRN (06:00)
[2022-09-05] MEDS: MULTIVIT, IRON, MIN NO. 8, FA TABLET GT SCH (06:55)
[2022-09-05] MEDS: OMEPRAZOLE 20 MG CAPSULE.DR GT SCH (06:55)
[2022-09-05 07:55] VITALS: TEMP 97.1
[2022-09-05] MEDS: DIVALPROEX SPRINKLE 125 MG CAP.SPRINK GT SCH ×3 (08:49→21:00)
[2022-09-05] MEDS: POLYVINYL ALCOHOL OPHT DROPS 15 ML BOTTLE EACHEYE SCH ×3 (08:50→17:42)
[2022-09-05] MEDS: DOCUSATE SODIUM 100 MG/10 ML LIQUID UDC GT SCH (08:51)
[2022-09-05] MEDS: levETIRAcetam 500 MG/5 ML LIQUID UDC GT SCH ×2 (08:51→21:00)
[2022-09-05] MEDS: busPIRone 10 MG TABLET GT SCH ×3 (08:51→17:42)
[2022-09-05] MEDS: ACIDOPHILUS/BULGARICUS CHEW TAB GT SCH ×2 (08:51→21:00)
[2022-09-05] MEDS: OMEGA-3 FATTY ACIDS/FISH OIL CAPSULE GT SCH (08:51)
[2022-09-05] MEDS: MIRALAX 17 GM POWD.PACK GT SCH (08:52)
[2022-09-05] MEDS: POTASSIUM CHLORIDE 40 MEQ/30 ML LIQUID UDC GT SCH (08:52)
[2022-09-05] MEDS: REMEDY ESSENTIAL ZINC PASTE 113 GM TP SCH ×2 (08:52→21:00)
[2022-09-05 08:57] VITALS: O2SAT 99
[2022-09-05] MEDS: HYDROGEN PEROXIDE 3% 118 ML BOTTLE TP SCH ×2 (09:08→19:28)
[2022-09-05 20:00] VITALS: TEMP 97.6
[2022-09-05 20:30] VITALS: O2SAT 99
[2022-09-05] MEDS: PROTEIN SUPPLEMENT (PROSTAT) 30 ML LIQUID GT SCH (21:00)
[2022-09-05] MEDS: RIVAROXABAN 15 MG TABLET GT SCH (21:00)
[2022-09-05] MEDS: MELATONIN 3MG TABLET GT SCH (21:00)
[2022-09-05] MEDS: NUTRISOURCE FIBER 4 GM PACKET GT SCH (21:00)
[2022-09-05] MEDS: CRANBERRY 500 MG GT SCH (21:00)
[2022-09-05] MEDS: MAGNESIUM COMPLEX GT SCH (21:00)
[2022-09-06] MEDS: OMEPRAZOLE 20 MG CAPSULE.DR GT SCH (05:13)
[2022-09-06] MEDS: MULTIVIT, IRON, MIN NO. 8, FA TABLET GT SCH (05:13)
[2022-09-06] MEDS: BACLOFEN 10 MG TABLET GT SCH ×4 (05:13→23:11)
[2022-09-06] MEDS: METOCLOPRAMIDE HCL 10 MG/10 ML UDC GT SCH ×4 (05:17→23:11)
[2022-09-06 05:54] VITALS: O2SAT 99
[2022-09-06] MEDS: TWOCAL HN 1,000 ML LIQUID GT PRN (07:06)
[2022-09-06 08:14] VITALS: TEMP 97.9
[2022-09-06] MEDS: DIVALPROEX SPRINKLE 125 MG CAP.SPRINK GT SCH ×3 (08:32→21:07)
[2022-09-06] MEDS: POTASSIUM CHLORIDE 40 MEQ/30 ML LIQUID UDC GT SCH (08:32)
[2022-09-06] MEDS: levETIRAcetam 500 MG/5 ML LIQUID UDC GT SCH ×2 (08:32→21:08)
[2022-09-06] MEDS: busPIRone 10 MG TABLET GT SCH ×3 (08:32→17:15)
[2022-09-06] MEDS: OMEGA-3 FATTY ACIDS/FISH OIL CAPSULE GT SCH (08:32)
[2022-09-06] MEDS: POLYVINYL ALCOHOL OPHT DROPS 15 ML BOTTLE EACHEYE SCH ×3 (08:32→17:15)
[2022-09-06] MEDS: MIRALAX 17 GM POWD.PACK GT SCH (08:32)
[2022-09-06] MEDS: REMEDY ESSENTIAL ZINC PASTE 113 GM TP SCH ×2 (08:32→21:11)
[2022-09-06] MEDS: ACIDOPHILUS/BULGARICUS CHEW TAB GT SCH ×2 (08:32→21:04)
[2022-09-06] MEDS: DOCUSATE SODIUM 100 MG/10 ML LIQUID UDC GT SCH (08:32)
[2022-09-06] MEDS: HYDROGEN PEROXIDE 3% 118 ML BOTTLE TP SCH ×2 (09:00→19:13)
[2022-09-06 20:16] VITALS: TEMP 98
[2022-09-06 20:40] VITALS: O2SAT 99
[2022-09-06] MEDS: PROTEIN SUPPLEMENT (PROSTAT) 30 ML LIQUID GT SCH (21:00)
[2022-09-06] MEDS: MELATONIN 3MG TABLET GT SCH (21:07)
[2022-09-06] MEDS: NUTRISOURCE FIBER 4 GM PACKET GT SCH (21:09)
[2022-09-06] MEDS: MAGNESIUM COMPLEX GT SCH (21:09)
[2022-09-06] MEDS: CRANBERRY 500 MG GT SCH (21:09)
[2022-09-06] MEDS: RIVAROXABAN 15 MG TABLET GT SCH (21:11)
[2022-09-07] MEDS: METOCLOPRAMIDE HCL 10 MG/10 ML UDC GT SCH ×4 (05:32→23:16)
[2022-09-07] MEDS: MULTIVIT, IRON, MIN NO. 8, FA TABLET GT SCH (05:32)
[2022-09-07] MEDS: OMEPRAZOLE 20 MG CAPSULE.DR GT SCH (05:32)
[2022-09-07] MEDS: BACLOFEN 10 MG TABLET GT SCH ×4 (05:32→23:16)
[2022-09-07 07:15] VITALS: TEMP 97.1
[2022-09-07 07:16] VITALS: TEMP 98.5
[2022-09-07] MEDS: POLYVINYL ALCOHOL OPHT DROPS 15 ML BOTTLE EACHEYE SCH ×3 (08:25→16:51)
[2022-09-07] MEDS: MIRALAX 17 GM POWD.PACK GT SCH (08:25)
[2022-09-07] MEDS: OMEGA-3 FATTY ACIDS/FISH OIL CAPSULE GT SCH (08:25)
[2022-09-07] MEDS: REMEDY ESSENTIAL ZINC PASTE 113 GM TP SCH ×2 (08:25→21:55)
[2022-09-07] MEDS: busPIRone 10 MG TABLET GT SCH ×3 (08:25→16:51)
[2022-09-07] MEDS: ACIDOPHILUS/BULGARICUS CHEW TAB GT SCH ×2 (08:25→21:55)
[2022-09-07] MEDS: POTASSIUM CHLORIDE 40 MEQ/30 ML LIQUID UDC GT SCH (08:25)
[2022-09-07] MEDS: levETIRAcetam 500 MG/5 ML LIQUID UDC GT SCH ×2 (08:25→21:55)
[2022-09-07] MEDS: DOCUSATE SODIUM 100 MG/10 ML LIQUID UDC GT SCH (08:25)
[2022-09-07] MEDS: DIVALPROEX SPRINKLE 125 MG CAP.SPRINK GT SCH ×3 (08:25→21:55)
[2022-09-07] MEDS: HYDROGEN PEROXIDE 3% 118 ML BOTTLE TP SCH ×2 (09:00→21:21)
[2022-09-07 10:30] VITALS: O2SAT 99
[2022-09-07 19:57] VITALS: TEMP 98.3
[2022-09-07] MEDS: PROTEIN SUPPLEMENT (PROSTAT) 30 ML LIQUID GT SCH (21:00)
[2022-09-07 21:22] VITALS: O2SAT 99
[2022-09-07] MEDS: RIVAROXABAN 15 MG TABLET GT SCH (21:51)
[2022-09-07] MEDS: CRANBERRY 500 MG GT SCH (21:55)
[2022-09-07] MEDS: MELATONIN 3MG TABLET GT SCH (21:55)
[2022-09-07] MEDS: MAGNESIUM COMPLEX GT SCH (21:55)
[2022-09-07] MEDS: NUTRISOURCE FIBER 4 GM PACKET GT SCH (21:55)
[2022-09-08] MEDS: BACLOFEN 10 MG TABLET GT SCH ×3 (06:04→17:31)
[2022-09-08] MEDS: MULTIVIT, IRON, MIN NO. 8, FA TABLET GT SCH (06:05)
[2022-09-08] MEDS: METOCLOPRAMIDE HCL 10 MG/10 ML UDC GT SCH ×3 (06:05→17:31)
[2022-09-08] MEDS: OMEPRAZOLE 20 MG CAPSULE.DR GT SCH (06:05)
[2022-09-08 07:13] VITALS: TEMP 97.3
[2022-09-08] MEDS: DIVALPROEX SPRINKLE 125 MG CAP.SPRINK GT SCH ×3 (08:57→21:57)
[2022-09-08] MEDS: ACIDOPHILUS/BULGARICUS CHEW TAB GT SCH ×2 (08:58→21:57)
[2022-09-08] MEDS: busPIRone 10 MG TABLET GT SCH ×3 (08:58→17:31)
[2022-09-08] MEDS: levETIRAcetam 500 MG/5 ML LIQUID UDC GT SCH ×2 (08:58→21:57)
[2022-09-08] MEDS: OMEGA-3 FATTY ACIDS/FISH OIL CAPSULE GT SCH (08:58)
[2022-09-08] MEDS: REMEDY ESSENTIAL ZINC PASTE 113 GM TP SCH ×2 (08:58→21:57)
[2022-09-08] MEDS: DOCUSATE SODIUM 100 MG/10 ML LIQUID UDC GT SCH (08:58)
[2022-09-08] MEDS: COAL TAR TOP SCH (08:58)
[2022-09-08] MEDS: POLYVINYL ALCOHOL OPHT DROPS 15 ML BOTTLE EACHEYE SCH ×3 (08:58→17:31)
[2022-09-08] MEDS: MIRALAX 17 GM POWD.PACK GT SCH (08:58)
[2022-09-08] MEDS: POTASSIUM CHLORIDE 40 MEQ/30 ML LIQUID UDC GT SCH (08:58)
[2022-09-08] MEDS: HYDROGEN PEROXIDE 3% 118 ML BOTTLE TP SCH ×2 (09:00→20:32)
[2022-09-08 11:43] VITALS: O2SAT 98
[2022-09-08 20:37] VITALS: TEMP 98; O2SAT 99
[2022-09-08] MEDS: CRANBERRY 500 MG GT SCH (21:57)
[2022-09-08] MEDS: MAGNESIUM COMPLEX GT SCH (21:57)
[2022-09-08] MEDS: PROTEIN SUPPLEMENT (PROSTAT) 30 ML LIQUID GT SCH (21:57)
[2022-09-08] MEDS: NUTRISOURCE FIBER 4 GM PACKET GT SCH (21:57)
[2022-09-08] MEDS: RIVAROXABAN 15 MG TABLET GT SCH (21:57)
[2022-09-08] MEDS: MELATONIN 3MG TABLET GT SCH (21:57)
[2022-09-09] MEDS: BACLOFEN 10 MG TABLET GT SCH ×4 (00:39→17:38)
[2022-09-09] MEDS: METOCLOPRAMIDE HCL 10 MG/10 ML UDC GT SCH ×4 (00:39→17:38)
[2022-09-09] MEDS: OMEPRAZOLE 20 MG CAPSULE.DR GT SCH (05:42)
[2022-09-09] MEDS: MULTIVIT, IRON, MIN NO. 8, FA TABLET GT SCH (05:42)
[2022-09-09 07:17] VITALS: TEMP 97.4
[2022-09-09] MEDS: HYDROGEN PEROXIDE 3% 118 ML BOTTLE TP SCH ×2 (08:32→21:39)
[2022-09-09 08:33] VITALS: O2SAT 98
[2022-09-09] MEDS: busPIRone 10 MG TABLET GT SCH ×3 (08:37→17:38)
[2022-09-09] MEDS: DIVALPROEX SPRINKLE 125 MG CAP.SPRINK GT SCH ×3 (08:37→21:48)
[2022-09-09] MEDS: POLYVINYL ALCOHOL OPHT DROPS 15 ML BOTTLE EACHEYE SCH ×3 (08:37→17:38)
[2022-09-09] MEDS: DOCUSATE SODIUM 100 MG/10 ML LIQUID UDC GT SCH (08:38)
[2022-09-09] MEDS: ACIDOPHILUS/BULGARICUS CHEW TAB GT SCH ×2 (08:40→21:52)
[2022-09-09] MEDS: levETIRAcetam 500 MG/5 ML LIQUID UDC GT SCH ×2 (08:40→21:55)
[2022-09-09] MEDS: OMEGA-3 FATTY ACIDS/FISH OIL CAPSULE GT SCH (08:40)
[2022-09-09] MEDS: REMEDY ESSENTIAL ZINC PASTE 113 GM TP SCH ×2 (08:44→21:59)
[2022-09-09] MEDS: MIRALAX 17 GM POWD.PACK GT SCH (08:44)
[2022-09-09] MEDS: POTASSIUM CHLORIDE 40 MEQ/30 ML LIQUID UDC GT SCH (08:44)
[2022-09-09 20:25] VITALS: O2SAT 99
[2022-09-09] MEDS: PROTEIN SUPPLEMENT (PROSTAT) 30 ML LIQUID GT SCH (21:00)
[2022-09-09 21:31] VITALS: TEMP 97.9
[2022-09-09] MEDS: CRANBERRY 500 MG GT SCH (21:55)
[2022-09-09] MEDS: MELATONIN 3MG TABLET GT SCH (21:55)
[2022-09-09] MEDS: MAGNESIUM COMPLEX GT SCH (21:56)
[2022-09-09] MEDS: NUTRISOURCE FIBER 4 GM PACKET GT SCH (21:56)
[2022-09-09] MEDS: RIVAROXABAN 15 MG TABLET GT SCH (21:59)
[2022-09-10] MEDS: BACLOFEN 10 MG TABLET GT SCH ×4 (00:11→17:19)
[2022-09-10] MEDS: METOCLOPRAMIDE HCL 10 MG/10 ML UDC GT SCH ×4 (00:11→17:19)
[2022-09-10] MEDS: TWOCAL HN 1,000 ML LIQUID GT PRN (00:27)
[2022-09-10] MEDS: MULTIVIT, IRON, MIN NO. 8, FA TABLET GT SCH (06:01)
[2022-09-10] MEDS: OMEPRAZOLE 20 MG CAPSULE.DR GT SCH (06:01)
[2022-09-10 06:11] VITALS: O2SAT 99
[2022-09-10] MEDS: HYDROGEN PEROXIDE 3% 118 ML BOTTLE TP SCH ×2 (07:39→19:48)
[2022-09-10 07:40] VITALS: O2SAT 98
[2022-09-10] MEDS: DIVALPROEX SPRINKLE 125 MG CAP.SPRINK GT SCH ×3 (08:00→21:04)
[2022-09-10 08:03] VITALS: TEMP 98
[2022-09-10] MEDS: OMEGA-3 FATTY ACIDS/FISH OIL CAPSULE GT SCH (09:54)
[2022-09-10] MEDS: busPIRone 10 MG TABLET GT SCH ×3 (09:54→17:19)
[2022-09-10] MEDS: DOCUSATE SODIUM 100 MG/10 ML LIQUID UDC GT SCH (09:54)
[2022-09-10] MEDS: POTASSIUM CHLORIDE 40 MEQ/30 ML LIQUID UDC GT SCH (09:54)
[2022-09-10] MEDS: MIRALAX 17 GM POWD.PACK GT SCH (09:54)
[2022-09-10] MEDS: POLYVINYL ALCOHOL OPHT DROPS 15 ML BOTTLE EACHEYE SCH ×3 (09:54→17:19)
[2022-09-10] MEDS: REMEDY ESSENTIAL ZINC PASTE 113 GM TP SCH ×2 (09:54→21:10)
[2022-09-10] MEDS: levETIRAcetam 500 MG/5 ML LIQUID UDC GT SCH ×2 (09:54→21:06)
[2022-09-10] MEDS: ACIDOPHILUS/BULGARICUS CHEW TAB GT SCH ×2 (09:54→21:04)
[2022-09-10 20:00] VITALS: TEMP 97.6
[2022-09-10 20:40] VITALS: O2SAT 99
[2022-09-10] MEDS: PROTEIN SUPPLEMENT (PROSTAT) 30 ML LIQUID GT SCH (21:00)
[2022-09-10] MEDS: MELATONIN 3MG TABLET GT SCH (21:06)
[2022-09-10] MEDS: CRANBERRY 500 MG GT SCH (21:06)
[2022-09-10] MEDS: MAGNESIUM COMPLEX GT SCH (21:07)
[2022-09-10] MEDS: NUTRISOURCE FIBER 4 GM PACKET GT SCH (21:08)
[2022-09-10] MEDS: RIVAROXABAN 15 MG TABLET GT SCH (21:10)
[2022-09-11] MEDS: BACLOFEN 10 MG TABLET GT SCH ×5 (00:28→23:54)
[2022-09-11] MEDS: METOCLOPRAMIDE HCL 10 MG/10 ML UDC GT SCH ×2 (00:28→05:41)
[2022-09-11] MEDS: OMEPRAZOLE 20 MG CAPSULE.DR GT SCH (05:40)
[2022-09-11] MEDS: MULTIVIT, IRON, MIN NO. 8, FA TABLET GT SCH (05:41)
[2022-09-11 07:36] VITALS: TEMP 97.6
[2022-09-11] MEDS: DIVALPROEX SPRINKLE 125 MG CAP.SPRINK GT SCH (08:00)
[2022-09-11] MEDS: HYDROGEN PEROXIDE 3% 118 ML BOTTLE TP SCH ×2 (09:00→21:27)
[2022-09-11] MEDS: ACIDOPHILUS/BULGARICUS CHEW TAB GT SCH ×2 (09:17→21:00)
[2022-09-11] MEDS: busPIRone 10 MG TABLET GT SCH ×3 (09:17→17:03)
[2022-09-11] MEDS: levETIRAcetam 500 MG/5 ML LIQUID UDC GT SCH ×2 (09:17→21:00)
[2022-09-11] MEDS: MIRALAX 17 GM POWD.PACK GT SCH (09:17)
[2022-09-11] MEDS: REMEDY ESSENTIAL ZINC PASTE 113 GM TP SCH ×2 (09:17→21:00)
[2022-09-11] MEDS: POTASSIUM CHLORIDE 40 MEQ/30 ML LIQUID UDC GT SCH (09:17)
[2022-09-11] MEDS: COAL TAR TOP SCH (09:17)
[2022-09-11] MEDS: DOCUSATE SODIUM 100 MG/10 ML LIQUID UDC GT SCH (09:17)
[2022-09-11] MEDS: OMEGA-3 FATTY ACIDS/FISH OIL CAPSULE GT SCH (09:17)
[2022-09-11] MEDS: POLYVINYL ALCOHOL OPHT DROPS 15 ML BOTTLE EACHEYE SCH ×3 (09:17→17:03)
[2022-09-11 15:18] VITALS: O2SAT 98
[2022-09-11] MEDS: VALPROIC ACID 250 MG/5 ML LIQUID UDC GT SCH ×2 (17:04→21:00)
[2022-09-11 20:13] VITALS: TEMP 97.7
[2022-09-11] MEDS: MELATONIN 3MG TABLET GT SCH (21:00)
[2022-09-11] MEDS: MAGNESIUM COMPLEX GT SCH (21:00)
[2022-09-11] MEDS: CRANBERRY 500 MG GT SCH (21:00)
[2022-09-11] MEDS: PROTEIN SUPPLEMENT (PROSTAT) 30 ML LIQUID GT SCH (21:00)
[2022-09-11] MEDS: RIVAROXABAN 15 MG TABLET GT SCH (21:00)
[2022-09-11] MEDS: NUTRISOURCE FIBER 4 GM PACKET GT SCH (21:00)
[2022-09-11 22:35] VITALS: O2SAT 99
[2022-09-12] MEDS: TWOCAL HN 1,000 ML LIQUID GT PRN (02:19)
[2022-09-12] MEDS: MULTIVIT, IRON, MIN NO. 8, FA TABLET GT SCH (05:08)
[2022-09-12] MEDS: OMEPRAZOLE 20 MG CAPSULE.DR GT SCH (05:08)
[2022-09-12] MEDS: BACLOFEN 10 MG TABLET GT SCH ×3 (05:08→17:40)
[2022-09-12 07:54] VITALS: TEMP 97.8
[2022-09-12] MEDS: VALPROIC ACID 250 MG/5 ML LIQUID UDC GT SCH ×3 (08:00→21:00)
[2022-09-12] MEDS: HYDROGEN PEROXIDE 3% 118 ML BOTTLE TP SCH ×2 (08:24→19:00)
[2022-09-12] MEDS: POLYVINYL ALCOHOL OPHT DROPS 15 ML BOTTLE EACHEYE SCH ×3 (09:12→17:39)
[2022-09-12] MEDS: DOCUSATE SODIUM 100 MG/10 ML LIQUID UDC GT SCH (09:13)
[2022-09-12] MEDS: busPIRone 10 MG TABLET GT SCH ×3 (09:13→17:39)
[2022-09-12] MEDS: OMEGA-3 FATTY ACIDS/FISH OIL CAPSULE GT SCH (09:14)
[2022-09-12] MEDS: levETIRAcetam 500 MG/5 ML LIQUID UDC GT SCH ×2 (09:14→21:54)
[2022-09-12] MEDS: ACIDOPHILUS/BULGARICUS CHEW TAB GT SCH ×2 (09:14→21:00)
[2022-09-12] MEDS: MIRALAX 17 GM POWD.PACK GT SCH (09:14)
[2022-09-12] MEDS: REMEDY ESSENTIAL ZINC PASTE 113 GM TP SCH ×2 (09:15→21:56)
[2022-09-12] MEDS: POTASSIUM CHLORIDE 40 MEQ/30 ML LIQUID UDC GT SCH (09:15)
[2022-09-12] MEDS: ESCITALOPRAM 5 MG GT SCH (09:17)
[2022-09-12 10:40] VITALS: O2SAT 98
[2022-09-12 20:20] VITALS: TEMP 97.6
[2022-09-12] MEDS: PROTEIN SUPPLEMENT (PROSTAT) 30 ML LIQUID GT SCH (21:00)
[2022-09-12] MEDS: RIVAROXABAN 15 MG TABLET GT SCH (21:00)
[2022-09-12] MEDS: MELATONIN 3MG TABLET GT SCH (21:54)
[2022-09-12] MEDS: CRANBERRY 500 MG GT SCH (21:55)
[2022-09-12] MEDS: MAGNESIUM COMPLEX GT SCH (21:56)
[2022-09-12] MEDS: NUTRISOURCE FIBER 4 GM PACKET GT SCH (21:56)
[2022-09-13] MEDS: BACLOFEN 10 MG TABLET GT SCH ×4 (00:44→17:04)
[2022-09-13] MEDS: OMEPRAZOLE 20 MG CAPSULE.DR GT SCH (05:43)
[2022-09-13] MEDS: MULTIVIT, IRON, MIN NO. 8, FA TABLET GT SCH (05:43)
[2022-09-13 07:45] VITALS: TEMP 98.2
[2022-09-13] MEDS: HYDROGEN PEROXIDE 3% 118 ML BOTTLE TP SCH ×2 (08:29→21:05)
[2022-09-13] MEDS: VALPROIC ACID 250 MG/5 ML LIQUID UDC GT SCH ×3 (08:38→21:00)
[2022-09-13] MEDS: POTASSIUM CHLORIDE 40 MEQ/30 ML LIQUID UDC GT SCH (08:38)
[2022-09-13] MEDS: OMEGA-3 FATTY ACIDS/FISH OIL CAPSULE GT SCH (08:38)
[2022-09-13] MEDS: busPIRone 10 MG TABLET GT SCH ×3 (08:38→17:03)
[2022-09-13] MEDS: DOCUSATE SODIUM 100 MG/10 ML LIQUID UDC GT SCH (08:38)
[2022-09-13] MEDS: REMEDY ESSENTIAL ZINC PASTE 113 GM TP SCH ×2 (08:38→21:00)
[2022-09-13] MEDS: POLYVINYL ALCOHOL OPHT DROPS 15 ML BOTTLE EACHEYE SCH ×3 (08:38→17:03)
[2022-09-13] MEDS: ESCITALOPRAM 5 MG GT SCH (08:38)
[2022-09-13] MEDS: levETIRAcetam 500 MG/5 ML LIQUID UDC GT SCH ×2 (08:38→21:00)
[2022-09-13] MEDS: ACIDOPHILUS/BULGARICUS CHEW TAB GT SCH ×2 (08:38→21:00)
[2022-09-13] MEDS: MIRALAX 17 GM POWD.PACK GT SCH (08:38)
[2022-09-13 14:07] VITALS: O2SAT 98
[2022-09-13] MEDS: ACETAMINOPHEN 650 MG/20 ML UDC- SA PATIENTS-PAIN ONLY GT PRN (17:57)
[2022-09-13] MEDS: BISACODYL 10 MG SUPP.RECT RC PRN (18:28)
[2022-09-13 19:10] VITALS: O2SAT 99
[2022-09-13 20:09] VITALS: TEMP 97.7
[2022-09-13] MEDS: CRANBERRY 500 MG GT SCH (21:00)
[2022-09-13] MEDS: PROTEIN SUPPLEMENT (PROSTAT) 30 ML LIQUID GT SCH (21:00)
[2022-09-13] MEDS: MAGNESIUM COMPLEX GT SCH (21:00)
[2022-09-13] MEDS: MELATONIN 3MG TABLET GT SCH (21:00)
[2022-09-13] MEDS: RIVAROXABAN 15 MG TABLET GT SCH (21:00)
[2022-09-13] MEDS: NUTRISOURCE FIBER 4 GM PACKET GT SCH (21:00)
[2022-09-14] MEDS: BACLOFEN 10 MG TABLET GT SCH ×5 (00:04→23:52)
[2022-09-14] MEDS: MULTIVIT, IRON, MIN NO. 8, FA TABLET GT SCH (05:33)
[2022-09-14] MEDS: OMEPRAZOLE 20 MG CAPSULE.DR GT SCH (05:33)
[2022-09-14] MEDS: VALPROIC ACID 250 MG/5 ML LIQUID UDC GT SCH ×3 (08:00→21:00)
[2022-09-14] MEDS: HYDROGEN PEROXIDE 3% 118 ML BOTTLE TP SCH ×2 (08:05→21:32)
[2022-09-14] MEDS: POLYVINYL ALCOHOL OPHT DROPS 15 ML BOTTLE EACHEYE SCH ×3 (09:02→17:07)
[2022-09-14] MEDS: busPIRone 10 MG TABLET GT SCH ×3 (09:03→17:07)
[2022-09-14] MEDS: DOCUSATE SODIUM 100 MG/10 ML LIQUID UDC GT SCH (09:03)
[2022-09-14] MEDS: OMEGA-3 FATTY ACIDS/FISH OIL CAPSULE GT SCH (09:04)
[2022-09-14] MEDS: ACIDOPHILUS/BULGARICUS CHEW TAB GT SCH ×2 (09:04→21:00)
[2022-09-14] MEDS: levETIRAcetam 500 MG/5 ML LIQUID UDC GT SCH ×2 (09:05→21:00)
[2022-09-14] MEDS: MIRALAX 17 GM POWD.PACK GT SCH (09:05)
[2022-09-14] MEDS: ESCITALOPRAM 5 MG GT SCH (09:06)
[2022-09-14] MEDS: REMEDY ESSENTIAL ZINC PASTE 113 GM TP SCH ×2 (09:06→21:00)
[2022-09-14] MEDS: POTASSIUM CHLORIDE 40 MEQ/30 ML LIQUID UDC GT SCH (09:06)
[2022-09-14 09:10] VITALS: TEMP 97
[2022-09-14 15:04] VITALS: O2SAT 98
[2022-09-14 20:00] VITALS: TEMP 98.5
[2022-09-14] MEDS: RIVAROXABAN 15 MG TABLET GT SCH (21:00)
[2022-09-14] MEDS: MELATONIN 3MG TABLET GT SCH (21:00)
[2022-09-14] MEDS: PROTEIN SUPPLEMENT (PROSTAT) 30 ML LIQUID GT SCH (21:00)
[2022-09-14] MEDS: CRANBERRY 500 MG GT SCH (21:00)
[2022-09-14] MEDS: NUTRISOURCE FIBER 4 GM PACKET GT SCH (21:00)
[2022-09-14] MEDS: MAGNESIUM COMPLEX GT SCH (21:00)
[2022-09-15] MEDS: BACLOFEN 10 MG TABLET GT SCH ×3 (05:49→17:07)
[2022-09-15] MEDS: OMEPRAZOLE 20 MG CAPSULE.DR GT SCH (05:50)
[2022-09-15] MEDS: MULTIVIT, IRON, MIN NO. 8, FA TABLET GT SCH (05:50)
[2022-09-15 07:06] VITALS: TEMP 97.6
[2022-09-15] MEDS: VALPROIC ACID 250 MG/5 ML LIQUID UDC GT SCH ×3 (08:00→21:29)
[2022-09-15] MEDS: HYDROGEN PEROXIDE 3% 118 ML BOTTLE TP SCH ×2 (08:25→20:22)
[2022-09-15 08:26] VITALS: O2SAT 98
[2022-09-15] MEDS: busPIRone 10 MG TABLET GT SCH ×3 (09:51→16:58)
[2022-09-15] MEDS: POLYVINYL ALCOHOL OPHT DROPS 15 ML BOTTLE EACHEYE SCH ×3 (09:51→16:58)
[2022-09-15] MEDS: REMEDY ESSENTIAL ZINC PASTE 113 GM TP SCH ×2 (09:51→21:32)
[2022-09-15] MEDS: POTASSIUM CHLORIDE 40 MEQ/30 ML LIQUID UDC GT SCH (09:51)
[2022-09-15] MEDS: ACIDOPHILUS/BULGARICUS CHEW TAB GT SCH ×2 (09:51→21:29)
[2022-09-15] MEDS: levETIRAcetam 500 MG/5 ML LIQUID UDC GT SCH ×2 (09:51→21:30)
[2022-09-15] MEDS: MIRALAX 17 GM POWD.PACK GT SCH (09:51)
[2022-09-15] MEDS: OMEGA-3 FATTY ACIDS/FISH OIL CAPSULE GT SCH (09:51)
[2022-09-15] MEDS: ESCITALOPRAM 5 MG GT SCH (09:51)
[2022-09-15] MEDS: COAL TAR TOP SCH (09:51)
[2022-09-15] MEDS: DOCUSATE SODIUM 100 MG/10 ML LIQUID UDC GT SCH (09:51)
[2022-09-15 17:26] VITALS: O2SAT 98
[2022-09-15 20:00] VITALS: TEMP 98
[2022-09-15 20:30] VITALS: O2SAT 99
[2022-09-15] MEDS: PROTEIN SUPPLEMENT (PROSTAT) 30 ML LIQUID GT SCH (21:00)
[2022-09-15] MEDS: RIVAROXABAN 15 MG TABLET GT SCH (21:00)
[2022-09-15] MEDS: MELATONIN 3MG TABLET GT SCH (21:30)
[2022-09-15] MEDS: CRANBERRY 500 MG GT SCH (21:31)
[2022-09-15] MEDS: NUTRISOURCE FIBER 4 GM PACKET GT SCH (21:31)
[2022-09-15] MEDS: MAGNESIUM COMPLEX GT SCH (21:31)
[2022-09-16] MEDS: BACLOFEN 10 MG TABLET GT SCH ×5 (00:19→23:32)
[2022-09-16] MEDS: TWOCAL HN 1,000 ML LIQUID GT PRN (03:00)
[2022-09-16] MEDS: MULTIVIT, IRON, MIN NO. 8, FA TABLET GT SCH (06:12)
[2022-09-16] MEDS: OMEPRAZOLE 20 MG CAPSULE.DR GT SCH (06:12)
[2022-09-16 07:33] VITALS: TEMP 97.4
[2022-09-16 07:35] VITALS: O2SAT 98
[2022-09-16] MEDS: HYDROGEN PEROXIDE 3% 118 ML BOTTLE TP SCH ×2 (07:35→19:21)
[2022-09-16] MEDS: VALPROIC ACID 250 MG/5 ML LIQUID UDC GT SCH ×3 (08:45→21:39)
[2022-09-16] MEDS: busPIRone 10 MG TABLET GT SCH ×3 (08:46→17:28)
[2022-09-16] MEDS: DOCUSATE SODIUM 100 MG/10 ML LIQUID UDC GT SCH (08:46)
[2022-09-16] MEDS: POLYVINYL ALCOHOL OPHT DROPS 15 ML BOTTLE EACHEYE SCH ×3 (08:46→17:28)
[2022-09-16] MEDS: OMEGA-3 FATTY ACIDS/FISH OIL CAPSULE GT SCH (08:47)
[2022-09-16] MEDS: ACIDOPHILUS/BULGARICUS CHEW TAB GT SCH ×2 (08:48→21:39)
[2022-09-16] MEDS: levETIRAcetam 500 MG/5 ML LIQUID UDC GT SCH ×2 (08:48→21:39)
[2022-09-16] MEDS: POTASSIUM CHLORIDE 40 MEQ/30 ML LIQUID UDC GT SCH (08:49)
[2022-09-16] MEDS: ESCITALOPRAM 5 MG GT SCH (08:49)
[2022-09-16] MEDS: MIRALAX 17 GM POWD.PACK GT SCH (08:49)
[2022-09-16] MEDS: REMEDY ESSENTIAL ZINC PASTE 113 GM TP SCH ×2 (08:53→21:40)
[2022-09-16 20:20] VITALS: O2SAT 99
[2022-09-16] MEDS: PROTEIN SUPPLEMENT (PROSTAT) 30 ML LIQUID GT SCH (21:00)
[2022-09-16 21:13] VITALS: TEMP 98.5
[2022-09-16] MEDS: CRANBERRY 500 MG GT SCH (21:39)
[2022-09-16] MEDS: MAGNESIUM COMPLEX GT SCH (21:39)
[2022-09-16] MEDS: NUTRISOURCE FIBER 4 GM PACKET GT SCH (21:39)
[2022-09-16] MEDS: MELATONIN 3MG TABLET GT SCH (21:39)
[2022-09-16] MEDS: RIVAROXABAN 15 MG TABLET GT SCH (21:40)
[2022-09-17] MEDS: BACLOFEN 10 MG TABLET GT SCH ×3 (05:29→17:07)
[2022-09-17] MEDS: OMEPRAZOLE 20 MG CAPSULE.DR GT SCH (05:29)
[2022-09-17] MEDS: MULTIVIT, IRON, MIN NO. 8, FA TABLET GT SCH (05:29)
[2022-09-17 07:41] VITALS: O2SAT 98
[2022-09-17] MEDS: HYDROGEN PEROXIDE 3% 118 ML BOTTLE TP SCH ×2 (07:41→20:53)
[2022-09-17 07:54] VITALS: TEMP 97.8
[2022-09-17] MEDS: VALPROIC ACID 250 MG/5 ML LIQUID UDC GT SCH ×3 (08:22→21:26)
[2022-09-17] MEDS: POLYVINYL ALCOHOL OPHT DROPS 15 ML BOTTLE EACHEYE SCH ×3 (08:23→16:14)
[2022-09-17] MEDS: busPIRone 10 MG TABLET GT SCH ×3 (08:23→17:07)
[2022-09-17] MEDS: DOCUSATE SODIUM 100 MG/10 ML LIQUID UDC GT SCH (08:24)
[2022-09-17] MEDS: OMEGA-3 FATTY ACIDS/FISH OIL CAPSULE GT SCH (08:25)
[2022-09-17] MEDS: ACIDOPHILUS/BULGARICUS CHEW TAB GT SCH ×2 (08:25→21:26)
[2022-09-17] MEDS: levETIRAcetam 500 MG/5 ML LIQUID UDC GT SCH ×2 (08:25→21:26)
[2022-09-17] MEDS: MIRALAX 17 GM POWD.PACK GT SCH (08:26)
[2022-09-17] MEDS: POTASSIUM CHLORIDE 40 MEQ/30 ML LIQUID UDC GT SCH (08:27)
[2022-09-17] MEDS: ESCITALOPRAM 5 MG GT SCH (08:27)
[2022-09-17] MEDS: REMEDY ESSENTIAL ZINC PASTE 113 GM TP SCH ×2 (08:28→21:27)
[2022-09-17] MEDS: ACETAMINOPHEN 650 MG/20 ML UDC- SA PATIENTS-PAIN ONLY GT PRN (16:14)
[2022-09-17 20:00] VITALS: TEMP 98.4
[2022-09-17 21:07] VITALS: O2SAT 99
[2022-09-17] MEDS: PROTEIN SUPPLEMENT (PROSTAT) 30 ML LIQUID GT SCH (21:26)
[2022-09-17] MEDS: CRANBERRY 500 MG GT SCH (21:26)
[2022-09-17] MEDS: MAGNESIUM COMPLEX GT SCH (21:26)
[2022-09-17] MEDS: MELATONIN 3MG TABLET GT SCH (21:26)
[2022-09-17] MEDS: NUTRISOURCE FIBER 4 GM PACKET GT SCH (21:26)
[2022-09-17] MEDS: RIVAROXABAN 15 MG TABLET GT SCH (21:27)
[2022-09-18] MEDS: TWOCAL HN 1,000 ML LIQUID GT PRN (03:09)
[2022-09-18] MEDS: BACLOFEN 10 MG TABLET GT SCH ×5 (05:41→23:06)
[2022-09-18] MEDS: MULTIVIT, IRON, MIN NO. 8, FA TABLET GT SCH (05:41)
[2022-09-18] MEDS: OMEPRAZOLE 20 MG CAPSULE.DR GT SCH (05:41)
[2022-09-18 07:38] VITALS: TEMP 98.1
[2022-09-18] MEDS: busPIRone 10 MG TABLET GT SCH ×3 (08:18→17:30)
[2022-09-18] MEDS: POLYVINYL ALCOHOL OPHT DROPS 15 ML BOTTLE EACHEYE SCH ×3 (08:18→17:29)
[2022-09-18] MEDS: DOCUSATE SODIUM 100 MG/10 ML LIQUID UDC GT SCH (08:18)
[2022-09-18] MEDS: VALPROIC ACID 250 MG/5 ML LIQUID UDC GT SCH ×3 (08:18→20:24)
[2022-09-18] MEDS: ACIDOPHILUS/BULGARICUS CHEW TAB GT SCH ×2 (08:19→20:24)
[2022-09-18] MEDS: OMEGA-3 FATTY ACIDS/FISH OIL CAPSULE GT SCH (08:19)
[2022-09-18] MEDS: levETIRAcetam 500 MG/5 ML LIQUID UDC GT SCH ×2 (08:20→20:26)
[2022-09-18] MEDS: MIRALAX 17 GM POWD.PACK GT SCH (08:20)
[2022-09-18] MEDS: POTASSIUM CHLORIDE 40 MEQ/30 ML LIQUID UDC GT SCH (08:22)
[2022-09-18] MEDS: ESCITALOPRAM 5 MG GT SCH (08:22)
[2022-09-18] MEDS: REMEDY ESSENTIAL ZINC PASTE 113 GM TP SCH ×2 (08:23→20:26)
[2022-09-18] MEDS: COAL TAR TOP SCH (08:23)
[2022-09-18 10:00] VITALS: O2SAT 98
[2022-09-18] MEDS: HYDROGEN PEROXIDE 3% 118 ML BOTTLE TP SCH ×2 (10:00→19:25)
[2022-09-18] MEDS: ACETAMINOPHEN 650 MG/20 ML UDC- SA PATIENTS-PAIN ONLY GT PRN (15:35)
[2022-09-18 19:54] VITALS: TEMP 97.9
[2022-09-18] MEDS: MELATONIN 3MG TABLET GT SCH (20:24)
[2022-09-18] MEDS: CRANBERRY 500 MG GT SCH (20:26)
[2022-09-18] MEDS: PROTEIN SUPPLEMENT (PROSTAT) 30 ML LIQUID GT SCH (20:26)
[2022-09-18] MEDS: NUTRISOURCE FIBER 4 GM PACKET GT SCH (20:26)
[2022-09-18] MEDS: MAGNESIUM COMPLEX GT SCH (20:26)
[2022-09-18] MEDS: RIVAROXABAN 15 MG TABLET GT SCH (20:33)
[2022-09-18 20:40] VITALS: O2SAT 99
[2022-09-18] MEDS: CIPROFLOXACIN 0.3% OPHT OINT 3.5 GM TUBE LEFTEYE SCH (22:00)
[2022-09-19] MEDS: ACETAMINOPHEN 650 MG/20 ML UDC- SA PATIENTS-PAIN ONLY GT PRN ×3 (01:43→17:32)
[2022-09-19] MEDS: OMEPRAZOLE 20 MG CAPSULE.DR GT SCH (05:40)
[2022-09-19] MEDS: BACLOFEN 10 MG TABLET GT SCH ×3 (05:40→17:21)
[2022-09-19] MEDS: MULTIVIT, IRON, MIN NO. 8, FA TABLET GT SCH (05:42)
[2022-09-19] MEDS: CIPROFLOXACIN 0.3% OPHT OINT 3.5 GM TUBE LEFTEYE SCH ×3 (05:42→22:00)
[2022-09-19 07:49] VITALS: TEMP 97.2
[2022-09-19 08:17] VITALS: O2SAT 98
[2022-09-19] MEDS: DOCUSATE SODIUM 100 MG/10 ML LIQUID UDC GT SCH (08:43)
[2022-09-19] MEDS: ACIDOPHILUS/BULGARICUS CHEW TAB GT SCH ×2 (08:43→21:00)
[2022-09-19] MEDS: OMEGA-3 FATTY ACIDS/FISH OIL CAPSULE GT SCH (08:43)
[2022-09-19] MEDS: POLYVINYL ALCOHOL OPHT DROPS 15 ML BOTTLE EACHEYE SCH ×3 (08:43→17:17)
[2022-09-19] MEDS: VALPROIC ACID 250 MG/5 ML LIQUID UDC GT SCH ×3 (08:43→21:00)
[2022-09-19] MEDS: busPIRone 10 MG TABLET GT SCH ×3 (08:43→17:17)
[2022-09-19] MEDS: ESCITALOPRAM 5 MG GT SCH (08:45)
[2022-09-19] MEDS: levETIRAcetam 500 MG/5 ML LIQUID UDC GT SCH ×2 (08:45→21:00)
[2022-09-19] MEDS: POTASSIUM CHLORIDE 40 MEQ/30 ML LIQUID UDC GT SCH (08:45)
[2022-09-19] MEDS: MIRALAX 17 GM POWD.PACK GT SCH (08:45)
[2022-09-19] MEDS: REMEDY ESSENTIAL ZINC PASTE 113 GM TP SCH ×2 (08:45→21:00)
[2022-09-19] MEDS: HYDROGEN PEROXIDE 3% 118 ML BOTTLE TP SCH ×2 (09:00→19:11)
[2022-09-19 20:00] VITALS: TEMP 97.9
[2022-09-19 20:40] VITALS: O2SAT 99
[2022-09-19] MEDS: NUTRISOURCE FIBER 4 GM PACKET GT SCH (21:00)
[2022-09-19] MEDS: MAGNESIUM COMPLEX GT SCH (21:00)
[2022-09-19] MEDS: RIVAROXABAN 15 MG TABLET GT SCH (21:00)
[2022-09-19] MEDS: PROTEIN SUPPLEMENT (PROSTAT) 30 ML LIQUID GT SCH (21:00)
[2022-09-19] MEDS: CRANBERRY 500 MG GT SCH (21:00)
[2022-09-19] MEDS: MELATONIN 3MG TABLET GT SCH (21:00)
[2022-09-20] MEDS: BACLOFEN 10 MG TABLET GT SCH ×4 (00:28→17:02)
[2022-09-20] MEDS: OMEPRAZOLE 20 MG CAPSULE.DR GT SCH (05:22)
[2022-09-20] MEDS: MULTIVIT, IRON, MIN NO. 8, FA TABLET GT SCH (05:22)
[2022-09-20] MEDS: TWOCAL HN 1,000 ML LIQUID GT PRN (05:23)
[2022-09-20] MEDS: CIPROFLOXACIN 0.3% OPHT OINT 3.5 GM TUBE LEFTEYE SCH ×2 (05:23→14:00)
[2022-09-20 07:46] VITALS: TEMP 98.2
[2022-09-20 08:04] VITALS: O2SAT 98
[2022-09-20] MEDS: VALPROIC ACID 250 MG/5 ML LIQUID UDC GT SCH ×3 (08:52→21:00)
[2022-09-20] MEDS: DOCUSATE SODIUM 100 MG/10 ML LIQUID UDC GT SCH (09:02)
[2022-09-20] MEDS: POLYVINYL ALCOHOL OPHT DROPS 15 ML BOTTLE EACHEYE SCH ×3 (09:02→16:54)
[2022-09-20] MEDS: ACIDOPHILUS/BULGARICUS CHEW TAB GT SCH ×2 (09:02→21:00)
[2022-09-20] MEDS: busPIRone 10 MG TABLET GT SCH ×3 (09:02→16:57)
[2022-09-20] MEDS: OMEGA-3 FATTY ACIDS/FISH OIL CAPSULE GT SCH (09:02)
[2022-09-20] MEDS: ESCITALOPRAM 5 MG GT SCH (09:06)
[2022-09-20] MEDS: levETIRAcetam 500 MG/5 ML LIQUID UDC GT SCH ×2 (09:06→21:00)
[2022-09-20] MEDS: MIRALAX 17 GM POWD.PACK GT SCH (09:06)
[2022-09-20] MEDS: REMEDY ESSENTIAL ZINC PASTE 113 GM TP SCH ×2 (09:06→21:00)
[2022-09-20] MEDS: POTASSIUM CHLORIDE 40 MEQ/30 ML LIQUID UDC GT SCH (09:06)
[2022-09-20] MEDS: HYDROGEN PEROXIDE 3% 118 ML BOTTLE TP SCH ×2 (09:11→19:18)
[2022-09-20] MEDS: ACETAMINOPHEN 650 MG/20 ML UDC- SA PATIENTS-PAIN ONLY GT PRN (17:08)
[2022-09-20 20:00] VITALS: TEMP 98.4
[2022-09-20 20:40] VITALS: O2SAT 99
[2022-09-20] MEDS: NUTRISOURCE FIBER 4 GM PACKET GT SCH (21:00)
[2022-09-20] MEDS: RIVAROXABAN 15 MG TABLET GT SCH (21:00)
[2022-09-20] MEDS: PROTEIN SUPPLEMENT (PROSTAT) 30 ML LIQUID GT SCH (21:00)
[2022-09-20] MEDS: CRANBERRY 500 MG GT SCH (21:00)
[2022-09-20] MEDS: MAGNESIUM COMPLEX GT SCH (21:00)
[2022-09-20] MEDS: MELATONIN 3MG TABLET GT SCH (21:00)
[2022-09-21] MEDS: BACLOFEN 10 MG TABLET GT SCH ×5 (06:00→23:16)
[2022-09-21] MEDS: OMEPRAZOLE 20 MG CAPSULE.DR GT SCH (06:00)
[2022-09-21] MEDS: MULTIVIT, IRON, MIN NO. 8, FA TABLET GT SCH (06:00)
[2022-09-21] MEDS: HYDROGEN PEROXIDE 3% 118 ML BOTTLE TP SCH ×2 (08:12→21:00)
[2022-09-21] MEDS: POLYVINYL ALCOHOL OPHT DROPS 15 ML BOTTLE EACHEYE SCH ×3 (08:38→17:25)
[2022-09-21] MEDS: busPIRone 10 MG TABLET GT SCH ×3 (08:38→17:25)
[2022-09-21] MEDS: VALPROIC ACID 250 MG/5 ML LIQUID UDC GT SCH ×3 (08:38→21:00)
[2022-09-21] MEDS: DOCUSATE SODIUM 100 MG/10 ML LIQUID UDC GT SCH (08:39)
[2022-09-21] MEDS: OMEGA-3 FATTY ACIDS/FISH OIL CAPSULE GT SCH (08:39)
[2022-09-21] MEDS: ACIDOPHILUS/BULGARICUS CHEW TAB GT SCH ×2 (08:41→21:00)
[2022-09-21] MEDS: MIRALAX 17 GM POWD.PACK GT SCH (08:42)
[2022-09-21] MEDS: POTASSIUM CHLORIDE 40 MEQ/30 ML LIQUID UDC GT SCH (08:42)
[2022-09-21] MEDS: levETIRAcetam 500 MG/5 ML LIQUID UDC GT SCH ×2 (08:42→21:00)
[2022-09-21] MEDS: ESCITALOPRAM 5 MG GT SCH (08:42)
[2022-09-21] MEDS: REMEDY ESSENTIAL ZINC PASTE 113 GM TP SCH ×2 (08:45→21:00)
[2022-09-21] MEDS: CIPROFLOXACIN 0.3% OPHT OINT 3.5 GM TUBE LEFTEYE SCH ×2 (09:00→21:00)
[2022-09-21 11:05] VITALS: TEMP 97.2
[2022-09-21 13:21] VITALS: O2SAT 98
[2022-09-21] MEDS: TWOCAL HN 1,000 ML LIQUID GT PRN (17:26)
[2022-09-21 20:00] VITALS: TEMP 98.3
[2022-09-21 20:45] VITALS: O2SAT 99
[2022-09-21] MEDS: MAGNESIUM COMPLEX GT SCH (21:00)
[2022-09-21] MEDS: CRANBERRY 500 MG GT SCH (21:00)
[2022-09-21] MEDS: MELATONIN 3MG TABLET GT SCH (21:00)
[2022-09-21] MEDS: PROTEIN SUPPLEMENT (PROSTAT) 30 ML LIQUID GT SCH (21:00)
[2022-09-21] MEDS: RIVAROXABAN 15 MG TABLET GT SCH (21:00)
[2022-09-21] MEDS: NUTRISOURCE FIBER 4 GM PACKET GT SCH (21:00)
[2022-09-22] MEDS: BACLOFEN 10 MG TABLET GT SCH ×3 (05:05→17:25)
[2022-09-22] MEDS: MULTIVIT, IRON, MIN NO. 8, FA TABLET GT SCH (05:05)
[2022-09-22] MEDS: OMEPRAZOLE 20 MG CAPSULE.DR GT SCH (05:05)
[2022-09-22] MEDS: VALPROIC ACID 250 MG/5 ML LIQUID UDC GT SCH ×3 (08:00→21:43)
[2022-09-22] MEDS: HYDROGEN PEROXIDE 3% 118 ML BOTTLE TP SCH ×2 (08:18→19:26)
[2022-09-22] MEDS: levETIRAcetam 500 MG/5 ML LIQUID UDC GT SCH ×2 (09:17→21:43)
[2022-09-22] MEDS: POTASSIUM CHLORIDE 40 MEQ/30 ML LIQUID UDC GT SCH (09:17)
[2022-09-22] MEDS: REMEDY ESSENTIAL ZINC PASTE 113 GM TP SCH ×2 (09:17→21:44)
[2022-09-22] MEDS: OMEGA-3 FATTY ACIDS/FISH OIL CAPSULE GT SCH (09:17)
[2022-09-22] MEDS: ACIDOPHILUS/BULGARICUS CHEW TAB GT SCH ×2 (09:17→21:43)
[2022-09-22] MEDS: ESCITALOPRAM 5 MG GT SCH (09:17)
[2022-09-22] MEDS: DOCUSATE SODIUM 100 MG/10 ML LIQUID UDC GT SCH (09:17)
[2022-09-22] MEDS: CIPROFLOXACIN 0.3% OPHT OINT 3.5 GM TUBE LEFTEYE SCH ×2 (09:17→21:43)
[2022-09-22] MEDS: POLYVINYL ALCOHOL OPHT DROPS 15 ML BOTTLE EACHEYE SCH ×3 (09:17→17:25)
[2022-09-22] MEDS: busPIRone 10 MG TABLET GT SCH ×3 (09:17→17:25)
[2022-09-22] MEDS: MIRALAX 17 GM POWD.PACK GT SCH (09:17)
[2022-09-22] MEDS: COAL TAR TOP SCH (09:17)
[2022-09-22 10:40] VITALS: O2SAT 99
[2022-09-22 11:23] VITALS: TEMP 97.6
[2022-09-22 20:30] VITALS: TEMP 97.8
[2022-09-22 20:52] VITALS: O2SAT 99
[2022-09-22] MEDS: PROTEIN SUPPLEMENT (PROSTAT) 30 ML LIQUID GT SCH (21:00)
[2022-09-22] MEDS: CRANBERRY 500 MG GT SCH (21:43)
[2022-09-22] MEDS: RIVAROXABAN 15 MG TABLET GT SCH (21:43)
[2022-09-22] MEDS: MAGNESIUM COMPLEX GT SCH (21:43)
[2022-09-22] MEDS: NUTRISOURCE FIBER 4 GM PACKET GT SCH (21:43)
[2022-09-22] MEDS: MELATONIN 3MG TABLET GT SCH (21:43)
[2022-09-23] MEDS: TWOCAL HN 1,000 ML LIQUID GT PRN (03:52)
[2022-09-23] MEDS: OMEPRAZOLE 20 MG CAPSULE.DR GT SCH (05:33)
[2022-09-23] MEDS: BACLOFEN 10 MG TABLET GT SCH ×4 (05:33→17:06)
[2022-09-23] MEDS: MULTIVIT, IRON, MIN NO. 8, FA TABLET GT SCH (05:33)
[2022-09-23] MEDS: HYDROGEN PEROXIDE 3% 118 ML BOTTLE TP SCH ×2 (08:17→20:39)
[2022-09-23 08:29] VITALS: TEMP 97.5
[2022-09-23] MEDS: VALPROIC ACID 250 MG/5 ML LIQUID UDC GT SCH ×3 (08:44→20:02)
[2022-09-23] MEDS: POLYVINYL ALCOHOL OPHT DROPS 15 ML BOTTLE EACHEYE SCH ×3 (08:45→17:06)
[2022-09-23] MEDS: busPIRone 10 MG TABLET GT SCH ×3 (08:45→17:06)
[2022-09-23] MEDS: DOCUSATE SODIUM 100 MG/10 ML LIQUID UDC GT SCH (08:45)
[2022-09-23] MEDS: MIRALAX 17 GM POWD.PACK GT SCH (08:46)
[2022-09-23] MEDS: OMEGA-3 FATTY ACIDS/FISH OIL CAPSULE GT SCH (08:46)
[2022-09-23] MEDS: ACIDOPHILUS/BULGARICUS CHEW TAB GT SCH ×2 (08:46→20:02)
[2022-09-23] MEDS: levETIRAcetam 500 MG/5 ML LIQUID UDC GT SCH ×2 (08:46→20:02)
[2022-09-23] MEDS: POTASSIUM CHLORIDE 40 MEQ/30 ML LIQUID UDC GT SCH (08:47)
[2022-09-23] MEDS: ESCITALOPRAM 5 MG GT SCH (08:47)
[2022-09-23] MEDS: CIPROFLOXACIN 0.3% OPHT OINT 3.5 GM TUBE LEFTEYE SCH ×2 (08:48→20:02)
[2022-09-23] MEDS: REMEDY ESSENTIAL ZINC PASTE 113 GM TP SCH ×2 (08:48→20:03)
[2022-09-23] MEDS: ACETAMINOPHEN 650 MG/20 ML UDC- SA PATIENTS-PAIN ONLY GT PRN (17:09)
[2022-09-23 17:29] VITALS: O2SAT 98
[2022-09-23] MEDS: PROTEIN SUPPLEMENT (PROSTAT) 30 ML LIQUID GT SCH (20:02)
[2022-09-23] MEDS: NUTRISOURCE FIBER 4 GM PACKET GT SCH (20:02)
[2022-09-23] MEDS: MELATONIN 3MG TABLET GT SCH (20:02)
[2022-09-23] MEDS: MAGNESIUM COMPLEX GT SCH (20:02)
[2022-09-23] MEDS: CRANBERRY 500 MG GT SCH (20:02)
[2022-09-23 20:30] VITALS: O2SAT 99
[2022-09-23 20:32] VITALS: TEMP 98.6
[2022-09-23] MEDS: RIVAROXABAN 15 MG TABLET GT SCH (21:24)
[2022-09-24] MEDS: OMEPRAZOLE 20 MG CAPSULE.DR GT SCH (06:00)
[2022-09-24] MEDS: BACLOFEN 10 MG TABLET GT SCH ×4 (06:00→17:09)
[2022-09-24] MEDS: MULTIVIT, IRON, MIN NO. 8, FA TABLET GT SCH (06:00)
[2022-09-24 07:28] VITALS: TEMP 97.6
[2022-09-24] MEDS: POLYVINYL ALCOHOL OPHT DROPS 15 ML BOTTLE EACHEYE SCH ×3 (08:16→16:19)
[2022-09-24] MEDS: VALPROIC ACID 250 MG/5 ML LIQUID UDC GT SCH ×3 (08:16→21:36)
[2022-09-24] MEDS: OMEGA-3 FATTY ACIDS/FISH OIL CAPSULE GT SCH (08:17)
[2022-09-24] MEDS: DOCUSATE SODIUM 100 MG/10 ML LIQUID UDC GT SCH (08:17)
[2022-09-24] MEDS: busPIRone 10 MG TABLET GT SCH ×3 (08:17→16:19)
[2022-09-24] MEDS: ACIDOPHILUS/BULGARICUS CHEW TAB GT SCH ×2 (08:17→21:36)
[2022-09-24] MEDS: levETIRAcetam 500 MG/5 ML LIQUID UDC GT SCH ×2 (08:18→21:36)
[2022-09-24] MEDS: MIRALAX 17 GM POWD.PACK GT SCH (08:19)
[2022-09-24] MEDS: ESCITALOPRAM 5 MG GT SCH (08:19)
[2022-09-24] MEDS: POTASSIUM CHLORIDE 40 MEQ/30 ML LIQUID UDC GT SCH (08:19)
[2022-09-24] MEDS: REMEDY ESSENTIAL ZINC PASTE 113 GM TP SCH ×2 (08:20→21:36)
[2022-09-24] MEDS: CIPROFLOXACIN 0.3% OPHT OINT 3.5 GM TUBE LEFTEYE SCH ×2 (08:20→21:36)
[2022-09-24 09:00] VITALS: O2SAT 99
[2022-09-24] MEDS: HYDROGEN PEROXIDE 3% 118 ML BOTTLE TP SCH ×2 (09:00→19:54)
[2022-09-24] MEDS: TWOCAL HN 1,000 ML LIQUID GT PRN (17:56)
[2022-09-24 20:06] VITALS: TEMP 98.5
[2022-09-24 20:40] VITALS: O2SAT 99
[2022-09-24] MEDS: PROTEIN SUPPLEMENT (PROSTAT) 30 ML LIQUID GT SCH (21:00)
[2022-09-24] MEDS: NUTRISOURCE FIBER 4 GM PACKET GT SCH (21:36)
[2022-09-24] MEDS: CRANBERRY 500 MG GT SCH (21:36)
[2022-09-24] MEDS: MAGNESIUM COMPLEX GT SCH (21:36)
[2022-09-24] MEDS: MELATONIN 3MG TABLET GT SCH (21:36)
[2022-09-24] MEDS: RIVAROXABAN 15 MG TABLET GT SCH (21:36)
[2022-09-25] MEDS: BACLOFEN 10 MG TABLET GT SCH ×4 (00:46→17:10)
[2022-09-25] MEDS: OMEPRAZOLE 20 MG CAPSULE.DR GT SCH (05:18)
[2022-09-25] MEDS: MULTIVIT, IRON, MIN NO. 8, FA TABLET GT SCH (05:18)
[2022-09-25 07:33] VITALS: TEMP 97.3
[2022-09-25 08:07] VITALS: O2SAT 99
[2022-09-25] MEDS: busPIRone 10 MG TABLET GT SCH ×3 (08:56→17:10)
[2022-09-25] MEDS: VALPROIC ACID 250 MG/5 ML LIQUID UDC GT SCH ×3 (08:56→21:00)
[2022-09-25] MEDS: DOCUSATE SODIUM 100 MG/10 ML LIQUID UDC GT SCH (08:56)
[2022-09-25] MEDS: POLYVINYL ALCOHOL OPHT DROPS 15 ML BOTTLE EACHEYE SCH ×3 (08:56→17:10)
[2022-09-25] MEDS: MIRALAX 17 GM POWD.PACK GT SCH (08:58)
[2022-09-25] MEDS: ACIDOPHILUS/BULGARICUS CHEW TAB GT SCH ×2 (08:58→21:00)
[2022-09-25] MEDS: levETIRAcetam 500 MG/5 ML LIQUID UDC GT SCH ×2 (08:58→21:00)
[2022-09-25] MEDS: POTASSIUM CHLORIDE 40 MEQ/30 ML LIQUID UDC GT SCH (08:58)
[2022-09-25] MEDS: OMEGA-3 FATTY ACIDS/FISH OIL CAPSULE GT SCH (08:58)
[2022-09-25] MEDS: ESCITALOPRAM 5 MG GT SCH (08:58)
[2022-09-25] MEDS: REMEDY ESSENTIAL ZINC PASTE 113 GM TP SCH ×2 (08:58→21:00)
[2022-09-25] MEDS: CIPROFLOXACIN 0.3% OPHT OINT 3.5 GM TUBE LEFTEYE SCH ×2 (08:58→21:00)
[2022-09-25] MEDS: COAL TAR TOP SCH (08:58)
[2022-09-25] MEDS: HYDROGEN PEROXIDE 3% 118 ML BOTTLE TP SCH ×2 (09:10→20:13)
[2022-09-25 10:55] VITALS: O2SAT 99
[2022-09-25 20:21] VITALS: TEMP 98.1
[2022-09-25] MEDS: MAGNESIUM COMPLEX GT SCH (21:00)
[2022-09-25] MEDS: RIVAROXABAN 15 MG TABLET GT SCH (21:00)
[2022-09-25] MEDS: CRANBERRY 500 MG GT SCH (21:00)
[2022-09-25] MEDS: MELATONIN 3MG TABLET GT SCH (21:00)
[2022-09-25] MEDS: PROTEIN SUPPLEMENT (PROSTAT) 30 ML LIQUID GT SCH (21:00)
[2022-09-25] MEDS: NEOMY/BACITRA/POLYMYXIN B OINT UD PACKET TP SCH (21:00)
[2022-09-25] MEDS: NUTRISOURCE FIBER 4 GM PACKET GT SCH (21:00)
[2022-09-25] MEDS: TWOCAL HN 1,000 ML LIQUID GT PRN (22:45)
[2022-09-26] MEDS: BACLOFEN 10 MG TABLET GT SCH ×4 (05:05→17:48)
[2022-09-26] MEDS: OMEPRAZOLE 20 MG CAPSULE.DR GT SCH (05:06)
[2022-09-26] MEDS: MULTIVIT, IRON, MIN NO. 8, FA TABLET GT SCH (05:38)
[2022-09-26 07:59] VITALS: TEMP 97.6
[2022-09-26] MEDS: HYDROGEN PEROXIDE 3% 118 ML BOTTLE TP SCH ×2 (08:20→20:49)
[2022-09-26] MEDS: VALPROIC ACID 250 MG/5 ML LIQUID UDC GT SCH ×3 (09:00→21:58)
[2022-09-26] MEDS: busPIRone 10 MG TABLET GT SCH ×3 (09:06→17:48)
[2022-09-26] MEDS: POLYVINYL ALCOHOL OPHT DROPS 15 ML BOTTLE EACHEYE SCH ×3 (09:06→17:48)
[2022-09-26] MEDS: DOCUSATE SODIUM 100 MG/10 ML LIQUID UDC GT SCH (09:07)
[2022-09-26] MEDS: ACIDOPHILUS/BULGARICUS CHEW TAB GT SCH ×2 (09:08→21:58)
[2022-09-26] MEDS: OMEGA-3 FATTY ACIDS/FISH OIL CAPSULE GT SCH (09:08)
[2022-09-26] MEDS: levETIRAcetam 500 MG/5 ML LIQUID UDC GT SCH ×2 (09:08→21:58)
[2022-09-26] MEDS: MIRALAX 17 GM POWD.PACK GT SCH (09:08)
[2022-09-26] MEDS: ESCITALOPRAM 5 MG GT SCH (09:09)
[2022-09-26] MEDS: NEOMY/BACITRA/POLYMYXIN B OINT UD PACKET TP SCH ×2 (09:10→21:58)
[2022-09-26] MEDS: POTASSIUM CHLORIDE 40 MEQ/30 ML LIQUID UDC GT SCH (09:10)
[2022-09-26] MEDS: REMEDY ESSENTIAL ZINC PASTE 113 GM TP SCH ×2 (09:10→21:58)
[2022-09-26 13:31] VITALS: O2SAT 98
[2022-09-26] MEDS: TWOCAL HN 1,000 ML LIQUID GT PRN (15:27)
[2022-09-26] MEDS: ACETAMINOPHEN 650 MG/20 ML UDC- SA PATIENTS-PAIN ONLY GT PRN (15:28)
[2022-09-26 20:14] VITALS: TEMP 99
[2022-09-26] MEDS: PROTEIN SUPPLEMENT (PROSTAT) 30 ML LIQUID GT SCH (21:00)
[2022-09-26] MEDS: RIVAROXABAN 15 MG TABLET GT SCH (21:00)
[2022-09-26 21:15] VITALS: O2SAT 99
[2022-09-26] MEDS: CRANBERRY 500 MG GT SCH (21:58)
[2022-09-26] MEDS: MELATONIN 3MG TABLET GT SCH (21:58)
[2022-09-26] MEDS: NUTRISOURCE FIBER 4 GM PACKET GT SCH (21:58)
[2022-09-26] MEDS: MAGNESIUM COMPLEX GT SCH (21:58)
[2022-09-27] MEDS: BACLOFEN 10 MG TABLET GT SCH ×5 (00:50→23:36)
[2022-09-27] MEDS: OMEPRAZOLE 20 MG CAPSULE.DR GT SCH (06:13)
[2022-09-27] MEDS: MULTIVIT, IRON, MIN NO. 8, FA TABLET GT SCH (06:13)
[2022-09-27 07:42] VITALS: TEMP 97.6
[2022-09-27] MEDS: HYDROGEN PEROXIDE 3% 118 ML BOTTLE TP SCH ×2 (08:26→19:19)
[2022-09-27] MEDS: busPIRone 10 MG TABLET GT SCH ×3 (08:48→17:40)
[2022-09-27] MEDS: OMEGA-3 FATTY ACIDS/FISH OIL CAPSULE GT SCH (08:48)
[2022-09-27] MEDS: REMEDY ESSENTIAL ZINC PASTE 113 GM TP SCH ×2 (08:48→21:00)
[2022-09-27] MEDS: VALPROIC ACID 250 MG/5 ML LIQUID UDC GT SCH ×3 (08:48→21:00)
[2022-09-27] MEDS: ESCITALOPRAM 5 MG GT SCH (08:48)
[2022-09-27] MEDS: levETIRAcetam 500 MG/5 ML LIQUID UDC GT SCH ×2 (08:48→21:00)
[2022-09-27] MEDS: DOCUSATE SODIUM 100 MG/10 ML LIQUID UDC GT SCH (08:48)
[2022-09-27] MEDS: POTASSIUM CHLORIDE 40 MEQ/30 ML LIQUID UDC GT SCH (08:48)
[2022-09-27] MEDS: ACIDOPHILUS/BULGARICUS CHEW TAB GT SCH ×2 (08:48→21:00)
[2022-09-27] MEDS: POLYVINYL ALCOHOL OPHT DROPS 15 ML BOTTLE EACHEYE SCH ×3 (08:48→17:40)
[2022-09-27] MEDS: MIRALAX 17 GM POWD.PACK GT SCH (08:48)
[2022-09-27] MEDS: NEOMY/BACITRA/POLYMYXIN B OINT UD PACKET TP SCH ×2 (08:49→21:00)
[2022-09-27 13:31] VITALS: O2SAT 98
[2022-09-27 20:31] VITALS: TEMP 98.8
[2022-09-27] MEDS: RIVAROXABAN 15 MG TABLET GT SCH (21:00)
[2022-09-27] MEDS: MAGNESIUM COMPLEX GT SCH (21:00)
[2022-09-27] MEDS: NUTRISOURCE FIBER 4 GM PACKET GT SCH (21:00)
[2022-09-27] MEDS: MELATONIN 3MG TABLET GT SCH (21:00)
[2022-09-27] MEDS: PROTEIN SUPPLEMENT (PROSTAT) 30 ML LIQUID GT SCH (21:00)
[2022-09-27] MEDS: CRANBERRY 500 MG GT SCH (21:00)
[2022-09-27 22:24] VITALS: O2SAT 99
[2022-09-28] MEDS: OMEPRAZOLE 20 MG CAPSULE.DR GT SCH (05:48)
[2022-09-28] MEDS: MULTIVIT, IRON, MIN NO. 8, FA TABLET GT SCH (05:50)
[2022-09-28] MEDS: BACLOFEN 10 MG TABLET GT SCH ×4 (05:51→22:50)
[2022-09-28] MEDS: HYDROGEN PEROXIDE 3% 118 ML BOTTLE TP SCH ×2 (07:54→19:17)
[2022-09-28] MEDS: VALPROIC ACID 250 MG/5 ML LIQUID UDC GT SCH ×3 (08:00→21:00)
[2022-09-28] MEDS: POLYVINYL ALCOHOL OPHT DROPS 15 ML BOTTLE EACHEYE SCH ×3 (09:02→17:41)
[2022-09-28] MEDS: MIRALAX 17 GM POWD.PACK GT SCH (09:02)
[2022-09-28] MEDS: ACIDOPHILUS/BULGARICUS CHEW TAB GT SCH ×2 (09:02→21:00)
[2022-09-28] MEDS: NEOMY/BACITRA/POLYMYXIN B OINT UD PACKET TP SCH ×2 (09:02→21:00)
[2022-09-28] MEDS: busPIRone 10 MG TABLET GT SCH ×3 (09:02→17:41)
[2022-09-28] MEDS: DOCUSATE SODIUM 100 MG/10 ML LIQUID UDC GT SCH (09:02)
[2022-09-28] MEDS: ESCITALOPRAM 5 MG GT SCH (09:02)
[2022-09-28] MEDS: OMEGA-3 FATTY ACIDS/FISH OIL CAPSULE GT SCH (09:02)
[2022-09-28] MEDS: levETIRAcetam 500 MG/5 ML LIQUID UDC GT SCH ×2 (09:02→21:00)
[2022-09-28] MEDS: POTASSIUM CHLORIDE 40 MEQ/30 ML LIQUID UDC GT SCH (09:02)
[2022-09-28] MEDS: REMEDY ESSENTIAL ZINC PASTE 113 GM TP SCH ×2 (09:02→21:00)
[2022-09-28 09:04] VITALS: TEMP 97.5
[2022-09-28 10:05] VITALS: O2SAT 99
[2022-09-28 10:47] VITALS: O2SAT 99
[2022-09-28 20:19] VITALS: TEMP 97.6
[2022-09-28] MEDS: CRANBERRY 500 MG GT SCH (21:00)
[2022-09-28] MEDS: RIVAROXABAN 15 MG TABLET GT SCH (21:00)
[2022-09-28] MEDS: MAGNESIUM COMPLEX GT SCH (21:00)
[2022-09-28] MEDS: PROTEIN SUPPLEMENT (PROSTAT) 30 ML LIQUID GT SCH (21:00)
[2022-09-28] MEDS: NUTRISOURCE FIBER 4 GM PACKET GT SCH (21:00)
[2022-09-28] MEDS: MELATONIN 3MG TABLET GT SCH (21:00)
[2022-09-28 22:17] VITALS: O2SAT 99
[2022-09-29] MEDS: OMEPRAZOLE 20 MG CAPSULE.DR GT SCH (06:33)
[2022-09-29] MEDS: BACLOFEN 10 MG TABLET GT SCH ×4 (06:33→23:37)
[2022-09-29] MEDS: MULTIVIT, IRON, MIN NO. 8, FA TABLET GT SCH (06:34)
[2022-09-29 07:11] VITALS: TEMP 97.4
[2022-09-29] MEDS: OMEGA-3 FATTY ACIDS/FISH OIL CAPSULE GT SCH (08:47)
[2022-09-29] MEDS: busPIRone 10 MG TABLET GT SCH ×3 (08:47→17:38)
[2022-09-29] MEDS: ACIDOPHILUS/BULGARICUS CHEW TAB GT SCH ×2 (08:47→21:07)
[2022-09-29] MEDS: MIRALAX 17 GM POWD.PACK GT SCH (08:47)
[2022-09-29] MEDS: DOCUSATE SODIUM 100 MG/10 ML LIQUID UDC GT SCH (08:47)
[2022-09-29] MEDS: POLYVINYL ALCOHOL OPHT DROPS 15 ML BOTTLE EACHEYE SCH ×3 (08:47→17:38)
[2022-09-29] MEDS: levETIRAcetam 500 MG/5 ML LIQUID UDC GT SCH ×2 (08:47→21:12)
[2022-09-29] MEDS: VALPROIC ACID 250 MG/5 ML LIQUID UDC GT SCH ×3 (08:47→21:12)
[2022-09-29] MEDS: NEOMY/BACITRA/POLYMYXIN B OINT UD PACKET TP SCH ×2 (08:48→21:13)
[2022-09-29] MEDS: COAL TAR TOP SCH (08:48)
[2022-09-29] MEDS: REMEDY ESSENTIAL ZINC PASTE 113 GM TP SCH ×2 (08:48→21:13)
[2022-09-29] MEDS: POTASSIUM CHLORIDE 40 MEQ/30 ML LIQUID UDC GT SCH (08:48)
[2022-09-29] MEDS: ESCITALOPRAM 5 MG GT SCH (08:48)
[2022-09-29] MEDS: HYDROGEN PEROXIDE 3% 118 ML BOTTLE TP SCH ×2 (09:00→21:09)
[2022-09-29 13:43] VITALS: O2SAT 98
[2022-09-29 19:20] VITALS: O2SAT 99
[2022-09-29 20:00] VITALS: TEMP 98.2
[2022-09-29] MEDS: PROTEIN SUPPLEMENT (PROSTAT) 30 ML LIQUID GT SCH (21:00)
[2022-09-29] MEDS: MELATONIN 3MG TABLET GT SCH (21:08)
[2022-09-29] MEDS: CRANBERRY 500 MG GT SCH (21:09)
[2022-09-29] MEDS: MAGNESIUM COMPLEX GT SCH (21:09)
[2022-09-29] MEDS: NUTRISOURCE FIBER 4 GM PACKET GT SCH (21:09)
[2022-09-29] MEDS: RIVAROXABAN 15 MG TABLET GT SCH (21:54)
[2022-09-30] MEDS: OMEPRAZOLE 20 MG CAPSULE.DR GT SCH (05:17)
[2022-09-30] MEDS: MULTIVIT, IRON, MIN NO. 8, FA TABLET GT SCH (05:17)
[2022-09-30] MEDS: BACLOFEN 10 MG TABLET GT SCH ×4 (05:17→22:59)
[2022-09-30 07:14] VITALS: TEMP 97.2
[2022-09-30] MEDS: HYDROGEN PEROXIDE 3% 118 ML BOTTLE TP SCH ×2 (07:34→21:04)
[2022-09-30] MEDS: VALPROIC ACID 250 MG/5 ML LIQUID UDC GT SCH ×3 (08:39→21:00)
[2022-09-30] MEDS: POLYVINYL ALCOHOL OPHT DROPS 15 ML BOTTLE EACHEYE SCH ×3 (08:39→16:21)
[2022-09-30] MEDS: DOCUSATE SODIUM 100 MG/10 ML LIQUID UDC GT SCH (08:40)
[2022-09-30] MEDS: ACIDOPHILUS/BULGARICUS CHEW TAB GT SCH ×2 (08:40→21:00)
[2022-09-30] MEDS: busPIRone 10 MG TABLET GT SCH ×3 (08:40→16:21)
[2022-09-30] MEDS: OMEGA-3 FATTY ACIDS/FISH OIL CAPSULE GT SCH (08:40)
[2022-09-30] MEDS: levETIRAcetam 500 MG/5 ML LIQUID UDC GT SCH ×2 (08:41→21:00)
[2022-09-30] MEDS: MIRALAX 17 GM POWD.PACK GT SCH (08:42)
[2022-09-30] MEDS: POTASSIUM CHLORIDE 40 MEQ/30 ML LIQUID UDC GT SCH (08:43)
[2022-09-30] MEDS: REMEDY ESSENTIAL ZINC PASTE 113 GM TP SCH ×2 (08:43→21:00)
[2022-09-30] MEDS: ESCITALOPRAM 5 MG GT SCH (08:43)
[2022-09-30] MEDS: NEOMY/BACITRA/POLYMYXIN B OINT UD PACKET TP SCH ×2 (08:44→21:00)
[2022-09-30 12:05] VITALS: O2SAT 98
[2022-09-30] MEDS: TWOCAL HN 1,000 ML LIQUID GT PRN (15:19)
[2022-09-30 20:45] VITALS: O2SAT 99
[2022-09-30] MEDS: PROTEIN SUPPLEMENT (PROSTAT) 30 ML LIQUID GT SCH (21:00)
[2022-09-30] MEDS: CRANBERRY 500 MG GT SCH (21:00)
[2022-09-30] MEDS: MAGNESIUM COMPLEX GT SCH (21:00)
[2022-09-30] MEDS: MELATONIN 3MG TABLET GT SCH (21:00)
[2022-09-30] MEDS: NUTRISOURCE FIBER 4 GM PACKET GT SCH (21:00)
[2022-09-30] MEDS: RIVAROXABAN 15 MG TABLET GT SCH (21:00)
[2022-09-30 21:14] VITALS: TEMP 97.8
[2022-10-01] MEDS: OMEPRAZOLE 20 MG CAPSULE.DR GT SCH (06:00)
[2022-10-01] MEDS: MULTIVIT, IRON, MIN NO. 8, FA TABLET GT SCH (06:00)
[2022-10-01] MEDS: BACLOFEN 10 MG TABLET GT SCH ×3 (06:00→17:07)
[2022-10-01 07:29] VITALS: TEMP 97.9
[2022-10-01] MEDS: POTASSIUM CHLORIDE 40 MEQ/30 ML LIQUID UDC GT SCH (08:36)
[2022-10-01] MEDS: busPIRone 10 MG TABLET GT SCH ×3 (08:36→17:07)
[2022-10-01] MEDS: ACIDOPHILUS/BULGARICUS CHEW TAB GT SCH ×2 (08:36→21:29)
[2022-10-01] MEDS: POLYVINYL ALCOHOL OPHT DROPS 15 ML BOTTLE EACHEYE SCH ×3 (08:36→17:07)
[2022-10-01] MEDS: MIRALAX 17 GM POWD.PACK GT SCH (08:36)
[2022-10-01] MEDS: VALPROIC ACID 250 MG/5 ML LIQUID UDC GT SCH ×3 (08:36→21:29)
[2022-10-01] MEDS: DOCUSATE SODIUM 100 MG/10 ML LIQUID UDC GT SCH (08:36)
[2022-10-01] MEDS: OMEGA-3 FATTY ACIDS/FISH OIL CAPSULE GT SCH (08:36)
[2022-10-01] MEDS: levETIRAcetam 500 MG/5 ML LIQUID UDC GT SCH ×2 (08:36→21:29)
[2022-10-01] MEDS: ESCITALOPRAM 5 MG GT SCH (08:36)
[2022-10-01] MEDS: NEOMY/BACITRA/POLYMYXIN B OINT UD PACKET TP SCH (08:37)
[2022-10-01] MEDS: REMEDY ESSENTIAL ZINC PASTE 113 GM TP SCH ×2 (08:37→21:30)
[2022-10-01 09:15] VITALS: O2SAT 98; O2SAT 99
[2022-10-01] MEDS: HYDROGEN PEROXIDE 3% 118 ML BOTTLE TP SCH ×2 (09:41→20:47)
[2022-10-01] MEDS: ACETAMINOPHEN 650 MG/20 ML UDC- SA PATIENTS-PAIN ONLY GT PRN (14:25)
[2022-10-01 20:16] VITALS: TEMP 98.2
[2022-10-01 20:47] VITALS: O2SAT 99
[2022-10-01] MEDS: PROTEIN SUPPLEMENT (PROSTAT) 30 ML LIQUID GT SCH (21:00)
[2022-10-01] MEDS: MAGNESIUM COMPLEX GT SCH (21:29)
[2022-10-01] MEDS: NUTRISOURCE FIBER 4 GM PACKET GT SCH (21:29)
[2022-10-01] MEDS: MELATONIN 3MG TABLET GT SCH (21:29)
[2022-10-01] MEDS: CRANBERRY 500 MG GT SCH (21:29)
[2022-10-01] MEDS: RIVAROXABAN 15 MG TABLET GT SCH (21:30)
[2022-10-02] MEDS: BACLOFEN 10 MG TABLET GT SCH ×4 (00:47→17:08)
[2022-10-02] MEDS: TWOCAL HN 1,000 ML LIQUID GT PRN (05:38)
[2022-10-02] MEDS: OMEPRAZOLE 20 MG CAPSULE.DR GT SCH (05:38)
[2022-10-02] MEDS: MULTIVIT, IRON, MIN NO. 8, FA TABLET GT SCH (05:38)
[2022-10-02 07:36] VITALS: TEMP 97.6
[2022-10-02] MEDS: POLYVINYL ALCOHOL OPHT DROPS 15 ML BOTTLE EACHEYE SCH ×3 (08:58→17:08)
[2022-10-02] MEDS: DOCUSATE SODIUM 100 MG/10 ML LIQUID UDC GT SCH (08:58)
[2022-10-02] MEDS: busPIRone 10 MG TABLET GT SCH ×3 (08:58→17:08)
[2022-10-02] MEDS: VALPROIC ACID 250 MG/5 ML LIQUID UDC GT SCH ×3 (08:58→21:24)
[2022-10-02] MEDS: OMEGA-3 FATTY ACIDS/FISH OIL CAPSULE GT SCH (08:59)
[2022-10-02] MEDS: COAL TAR TOP SCH (09:04)
[2022-10-02] MEDS: ESCITALOPRAM 5 MG GT SCH (09:04)
[2022-10-02] MEDS: levETIRAcetam 500 MG/5 ML LIQUID UDC GT SCH ×2 (09:04→21:24)
[2022-10-02] MEDS: REMEDY ESSENTIAL ZINC PASTE 113 GM TP SCH ×2 (09:04→21:24)
[2022-10-02] MEDS: POTASSIUM CHLORIDE 40 MEQ/30 ML LIQUID UDC GT SCH (09:04)
[2022-10-02] MEDS: ACIDOPHILUS/BULGARICUS CHEW TAB GT SCH ×2 (09:04→21:24)
[2022-10-02] MEDS: MIRALAX 17 GM POWD.PACK GT SCH (09:04)
[2022-10-02 09:40] VITALS: O2SAT 98
[2022-10-02] MEDS: HYDROGEN PEROXIDE 3% 118 ML BOTTLE TP SCH ×2 (09:40→21:13)
[2022-10-02 20:51] VITALS: TEMP 97.7
[2022-10-02 21:00] VITALS: O2SAT 99
[2022-10-02] MEDS: PROTEIN SUPPLEMENT (PROSTAT) 30 ML LIQUID GT SCH (21:00)
[2022-10-02] MEDS: MELATONIN 3MG TABLET GT SCH (21:24)
[2022-10-02] MEDS: CRANBERRY 500 MG GT SCH (21:24)
[2022-10-02] MEDS: NUTRISOURCE FIBER 4 GM PACKET GT SCH (21:24)
[2022-10-02] MEDS: MAGNESIUM COMPLEX GT SCH (21:24)
[2022-10-02] MEDS: RIVAROXABAN 15 MG TABLET GT SCH (21:25)
[2022-10-03] MEDS: BACLOFEN 10 MG TABLET GT SCH ×5 (05:08→23:05)
[2022-10-03] MEDS: MULTIVIT, IRON, MIN NO. 8, FA TABLET GT SCH (05:08)
[2022-10-03] MEDS: OMEPRAZOLE 20 MG CAPSULE.DR GT SCH (05:08)
[2022-10-03 07:36] VITALS: TEMP 97.7
[2022-10-03] MEDS: VALPROIC ACID 250 MG/5 ML LIQUID UDC GT SCH ×3 (08:00→21:58)
[2022-10-03] MEDS: HYDROGEN PEROXIDE 3% 118 ML BOTTLE TP SCH ×2 (08:06→22:14)
[2022-10-03] MEDS: POLYVINYL ALCOHOL OPHT DROPS 15 ML BOTTLE EACHEYE SCH ×3 (09:24→17:06)
[2022-10-03] MEDS: busPIRone 10 MG TABLET GT SCH ×3 (09:25→17:06)
[2022-10-03] MEDS: ACIDOPHILUS/BULGARICUS CHEW TAB GT SCH ×2 (09:25→21:58)
[2022-10-03] MEDS: DOCUSATE SODIUM 100 MG/10 ML LIQUID UDC GT SCH (09:25)
[2022-10-03] MEDS: OMEGA-3 FATTY ACIDS/FISH OIL CAPSULE GT SCH (09:25)
[2022-10-03] MEDS: levETIRAcetam 500 MG/5 ML LIQUID UDC GT SCH ×2 (09:25→21:58)
[2022-10-03] MEDS: ESCITALOPRAM 5 MG GT SCH (09:25)
[2022-10-03] MEDS: MIRALAX 17 GM POWD.PACK GT SCH (09:26)
[2022-10-03] MEDS: POTASSIUM CHLORIDE 40 MEQ/30 ML LIQUID UDC GT SCH (09:26)
[2022-10-03] MEDS: REMEDY ESSENTIAL ZINC PASTE 113 GM TP SCH ×2 (09:27→21:58)
[2022-10-03 09:30] VITALS: O2SAT 99
[2022-10-03] MEDS: ACETAMINOPHEN 650 MG/20 ML UDC- SA PATIENTS-PAIN ONLY GT PRN ×2 (14:14→21:30)
[2022-10-03 17:50] VITALS: O2SAT 99
[2022-10-03 20:27] VITALS: TEMP 98
[2022-10-03] MEDS: PROTEIN SUPPLEMENT (PROSTAT) 30 ML LIQUID GT SCH (21:00)
[2022-10-03] MEDS: CRANBERRY 500 MG GT SCH (21:58)
[2022-10-03] MEDS: MELATONIN 3MG TABLET GT SCH (21:58)
[2022-10-03] MEDS: NUTRISOURCE FIBER 4 GM PACKET GT SCH (21:58)
[2022-10-03] MEDS: MAGNESIUM COMPLEX GT SCH (21:58)
[2022-10-03] MEDS: RIVAROXABAN 15 MG TABLET GT SCH (22:00)
[2022-10-03 22:42] VITALS: O2SAT 98
[2022-10-04] MEDS: TWOCAL HN 1,000 ML LIQUID GT PRN (01:19)
[2022-10-04] MEDS: MULTIVIT, IRON, MIN NO. 8, FA TABLET GT SCH (05:35)
[2022-10-04] MEDS: OMEPRAZOLE 20 MG CAPSULE.DR GT SCH (05:35)
[2022-10-04] MEDS: BACLOFEN 10 MG TABLET GT SCH ×4 (05:35→23:27)
[2022-10-04 08:08] VITALS: TEMP 97.8
[2022-10-04] MEDS: HYDROGEN PEROXIDE 3% 118 ML BOTTLE TP SCH ×2 (08:14→21:47)
[2022-10-04] MEDS: VALPROIC ACID 250 MG/5 ML LIQUID UDC GT SCH ×3 (08:42→21:54)
[2022-10-04] MEDS: DOCUSATE SODIUM 100 MG/10 ML LIQUID UDC GT SCH (08:43)
[2022-10-04] MEDS: busPIRone 10 MG TABLET GT SCH ×3 (08:43→17:31)
[2022-10-04] MEDS: POLYVINYL ALCOHOL OPHT DROPS 15 ML BOTTLE EACHEYE SCH ×3 (08:43→17:31)
[2022-10-04] MEDS: OMEGA-3 FATTY ACIDS/FISH OIL CAPSULE GT SCH (08:43)
[2022-10-04] MEDS: ACIDOPHILUS/BULGARICUS CHEW TAB GT SCH ×2 (08:44→21:54)
[2022-10-04] MEDS: ESCITALOPRAM 5 MG GT SCH (08:45)
[2022-10-04] MEDS: MIRALAX 17 GM POWD.PACK GT SCH (08:45)
[2022-10-04] MEDS: REMEDY ESSENTIAL ZINC PASTE 113 GM TP SCH ×2 (08:45→21:55)
[2022-10-04] MEDS: POTASSIUM CHLORIDE 40 MEQ/30 ML LIQUID UDC GT SCH (08:45)
[2022-10-04] MEDS: levETIRAcetam 500 MG/5 ML LIQUID UDC GT SCH ×2 (08:45→21:54)
[2022-10-04 10:15] VITALS: O2SAT 99
[2022-10-04 20:00] VITALS: TEMP 98
[2022-10-04 20:22] VITALS: O2SAT 98
[2022-10-04] MEDS: PROTEIN SUPPLEMENT (PROSTAT) 30 ML LIQUID GT SCH (21:00)
[2022-10-04] MEDS: MELATONIN 3MG TABLET GT SCH (21:54)
[2022-10-04] MEDS: NUTRISOURCE FIBER 4 GM PACKET GT SCH (21:54)
[2022-10-04] MEDS: MAGNESIUM COMPLEX GT SCH (21:54)
[2022-10-04] MEDS: CRANBERRY 500 MG GT SCH (21:54)
[2022-10-04] MEDS: RIVAROXABAN 15 MG TABLET GT SCH (21:55)
[2022-10-05] MEDS: BACLOFEN 10 MG TABLET GT SCH ×5 (01:39→23:42)
[2022-10-05] MEDS: MULTIVIT, IRON, MIN NO. 8, FA TABLET GT SCH (06:05)
[2022-10-05] MEDS: OMEPRAZOLE 20 MG CAPSULE.DR GT SCH (06:05)
[2022-10-05 08:00] VITALS: TEMP 97.2
[2022-10-05] MEDS: HYDROGEN PEROXIDE 3% 118 ML BOTTLE TP SCH ×2 (08:10→19:13)
[2022-10-05] MEDS: VALPROIC ACID 250 MG/5 ML LIQUID UDC GT SCH ×3 (09:00→21:56)
[2022-10-05] MEDS: DOCUSATE SODIUM 100 MG/10 ML LIQUID UDC GT SCH (09:10)
[2022-10-05] MEDS: levETIRAcetam 500 MG/5 ML LIQUID UDC GT SCH ×2 (09:10→21:56)
[2022-10-05] MEDS: MIRALAX 17 GM POWD.PACK GT SCH (09:10)
[2022-10-05] MEDS: POLYVINYL ALCOHOL OPHT DROPS 15 ML BOTTLE EACHEYE SCH ×3 (09:10→17:16)
[2022-10-05] MEDS: REMEDY ESSENTIAL ZINC PASTE 113 GM TP SCH ×2 (09:10→21:56)
[2022-10-05] MEDS: OMEGA-3 FATTY ACIDS/FISH OIL CAPSULE GT SCH (09:10)
[2022-10-05] MEDS: TOBRAMYCIN/DEXAMETH OPHT DROP 2.5 ML BOTTLE LEFTEYE SCH ×3 (09:10→17:16)
[2022-10-05] MEDS: ESCITALOPRAM 5 MG GT SCH (09:10)
[2022-10-05] MEDS: POTASSIUM CHLORIDE 40 MEQ/30 ML LIQUID UDC GT SCH (09:10)
[2022-10-05] MEDS: ACIDOPHILUS/BULGARICUS CHEW TAB GT SCH ×2 (09:10→21:56)
[2022-10-05] MEDS: busPIRone 10 MG TABLET GT SCH ×3 (09:10→17:16)
[2022-10-05 13:24] VITALS: O2SAT 98
[2022-10-05 20:00] VITALS: TEMP 97.4
[2022-10-05] MEDS: PROTEIN SUPPLEMENT (PROSTAT) 30 ML LIQUID GT SCH (21:00)
[2022-10-05] MEDS: MELATONIN 3MG TABLET GT SCH (21:56)
[2022-10-05] MEDS: MAGNESIUM COMPLEX GT SCH (21:56)
[2022-10-05] MEDS: CRANBERRY 500 MG GT SCH (21:56)
[2022-10-05] MEDS: NUTRISOURCE FIBER 4 GM PACKET GT SCH (21:56)
[2022-10-05] MEDS: RIVAROXABAN 15 MG TABLET GT SCH (21:56)
[2022-10-06] MEDS: TWOCAL HN 1,000 ML LIQUID GT PRN (03:14)
[2022-10-06] MEDS: OMEPRAZOLE 20 MG CAPSULE.DR GT SCH (05:54)
[2022-10-06] MEDS: BACLOFEN 10 MG TABLET GT SCH ×3 (05:54→17:19)
[2022-10-06] MEDS: MULTIVIT, IRON, MIN NO. 8, FA TABLET GT SCH (05:54)
[2022-10-06] MEDS: VALPROIC ACID 250 MG/5 ML LIQUID UDC GT SCH ×3 (08:00→21:37)
[2022-10-06] MEDS: HYDROGEN PEROXIDE 3% 118 ML BOTTLE TP SCH ×2 (09:36→21:58)
[2022-10-06 09:50] VITALS: O2SAT 99
[2022-10-06] MEDS: OMEGA-3 FATTY ACIDS/FISH OIL CAPSULE GT SCH (09:52)
[2022-10-06] MEDS: REMEDY ESSENTIAL ZINC PASTE 113 GM TP SCH ×2 (09:52→21:38)
[2022-10-06] MEDS: DOCUSATE SODIUM 100 MG/10 ML LIQUID UDC GT SCH (09:52)
[2022-10-06] MEDS: busPIRone 10 MG TABLET GT SCH ×3 (09:52→17:19)
[2022-10-06] MEDS: ACIDOPHILUS/BULGARICUS CHEW TAB GT SCH ×2 (09:52→21:37)
[2022-10-06] MEDS: POLYVINYL ALCOHOL OPHT DROPS 15 ML BOTTLE EACHEYE SCH ×3 (09:52→17:19)
[2022-10-06] MEDS: COAL TAR TOP SCH (09:52)
[2022-10-06] MEDS: POTASSIUM CHLORIDE 40 MEQ/30 ML LIQUID UDC GT SCH (09:52)
[2022-10-06] MEDS: levETIRAcetam 500 MG/5 ML LIQUID UDC GT SCH ×2 (09:52→21:37)
[2022-10-06] MEDS: ESCITALOPRAM 5 MG GT SCH (09:52)
[2022-10-06] MEDS: MIRALAX 17 GM POWD.PACK GT SCH (09:52)
[2022-10-06] MEDS: TOBRAMYCIN/DEXAMETH OPHT DROP 2.5 ML BOTTLE LEFTEYE SCH ×3 (09:52→17:19)
[2022-10-06 11:05] VITALS: TEMP 97.5
[2022-10-06 20:15] VITALS: O2SAT 99
[2022-10-06] MEDS: PROTEIN SUPPLEMENT (PROSTAT) 30 ML LIQUID GT SCH (21:00)
[2022-10-06 21:27] VITALS: TEMP 98.1
[2022-10-06] MEDS: MELATONIN 3MG TABLET GT SCH (21:37)
[2022-10-06] MEDS: CRANBERRY 500 MG GT SCH (21:38)
[2022-10-06] MEDS: NUTRISOURCE FIBER 4 GM PACKET GT SCH (21:38)
[2022-10-06] MEDS: MAGNESIUM COMPLEX GT SCH (21:38)
[2022-10-06] MEDS: RIVAROXABAN 15 MG TABLET GT SCH (21:39)
[2022-10-07] MEDS: BACLOFEN 10 MG TABLET GT SCH ×4 (05:52→17:10)
[2022-10-07] MEDS: MULTIVIT, IRON, MIN NO. 8, FA TABLET GT SCH (05:52)
[2022-10-07] MEDS: OMEPRAZOLE 20 MG CAPSULE.DR GT SCH (05:52)
[2022-10-07] MEDS: HYDROGEN PEROXIDE 3% 118 ML BOTTLE TP SCH ×2 (09:00→21:06)
[2022-10-07] MEDS: POLYVINYL ALCOHOL OPHT DROPS 15 ML BOTTLE EACHEYE SCH ×3 (09:08→17:08)
[2022-10-07] MEDS: VALPROIC ACID 250 MG/5 ML LIQUID UDC GT SCH ×3 (09:08→21:00)
[2022-10-07] MEDS: DOCUSATE SODIUM 100 MG/10 ML LIQUID UDC GT SCH (09:09)
[2022-10-07] MEDS: busPIRone 10 MG TABLET GT SCH ×3 (09:09→17:08)
[2022-10-07] MEDS: OMEGA-3 FATTY ACIDS/FISH OIL CAPSULE GT SCH (09:10)
[2022-10-07] MEDS: ACIDOPHILUS/BULGARICUS CHEW TAB GT SCH ×2 (09:10→21:00)
[2022-10-07] MEDS: levETIRAcetam 500 MG/5 ML LIQUID UDC GT SCH ×2 (09:11→21:00)
[2022-10-07] MEDS: MIRALAX 17 GM POWD.PACK GT SCH (09:12)
[2022-10-07] MEDS: ESCITALOPRAM 5 MG GT SCH (09:12)
[2022-10-07] MEDS: POTASSIUM CHLORIDE 40 MEQ/30 ML LIQUID UDC GT SCH (09:12)
[2022-10-07] MEDS: TOBRAMYCIN/DEXAMETH OPHT DROP 2.5 ML BOTTLE LEFTEYE SCH ×3 (09:13→17:10)
[2022-10-07] MEDS: REMEDY ESSENTIAL ZINC PASTE 113 GM TP SCH ×2 (09:13→21:00)
[2022-10-07 10:50] VITALS: O2SAT 98
[2022-10-07 11:00] VITALS: TEMP 97.6
[2022-10-07 20:00] VITALS: TEMP 97.8
[2022-10-07 20:29] VITALS: O2SAT 98
[2022-10-07] MEDS: RIVAROXABAN 15 MG TABLET GT SCH (21:00)
[2022-10-07] MEDS: PROTEIN SUPPLEMENT (PROSTAT) 30 ML LIQUID GT SCH (21:00)
[2022-10-07] MEDS: CRANBERRY 500 MG GT SCH (21:00)
[2022-10-07] MEDS: NUTRISOURCE FIBER 4 GM PACKET GT SCH (21:00)
[2022-10-07] MEDS: MELATONIN 3MG TABLET GT SCH (21:00)
[2022-10-07] MEDS: MAGNESIUM COMPLEX GT SCH (21:00)
[2022-10-08] MEDS: BACLOFEN 10 MG TABLET GT SCH ×5 (05:31→23:13)
[2022-10-08] MEDS: OMEPRAZOLE 20 MG CAPSULE.DR GT SCH (05:31)
[2022-10-08] MEDS: MULTIVIT, IRON, MIN NO. 8, FA TABLET GT SCH (05:32)
[2022-10-08 07:46] VITALS: TEMP 98.1
[2022-10-08] MEDS: VALPROIC ACID 250 MG/5 ML LIQUID UDC GT SCH ×3 (08:48→21:00)
[2022-10-08] MEDS: OMEGA-3 FATTY ACIDS/FISH OIL CAPSULE GT SCH (08:51)
[2022-10-08] MEDS: busPIRone 10 MG TABLET GT SCH ×3 (08:51→17:15)
[2022-10-08] MEDS: POLYVINYL ALCOHOL OPHT DROPS 15 ML BOTTLE EACHEYE SCH ×3 (08:51→17:15)
[2022-10-08] MEDS: ACIDOPHILUS/BULGARICUS CHEW TAB GT SCH ×2 (08:51→21:00)
[2022-10-08] MEDS: DOCUSATE SODIUM 100 MG/10 ML LIQUID UDC GT SCH (08:51)
[2022-10-08] MEDS: levETIRAcetam 500 MG/5 ML LIQUID UDC GT SCH ×2 (08:51→21:00)
[2022-10-08] MEDS: ESCITALOPRAM 5 MG GT SCH (08:52)
[2022-10-08] MEDS: POTASSIUM CHLORIDE 40 MEQ/30 ML LIQUID UDC GT SCH (08:52)
[2022-10-08] MEDS: MIRALAX 17 GM POWD.PACK GT SCH (08:52)
[2022-10-08] MEDS: TOBRAMYCIN/DEXAMETH OPHT DROP 2.5 ML BOTTLE LEFTEYE SCH ×3 (08:52→17:15)
[2022-10-08] MEDS: REMEDY ESSENTIAL ZINC PASTE 113 GM TP SCH ×2 (08:53→21:00)
[2022-10-08 09:50] VITALS: O2SAT 98
[2022-10-08] MEDS: HYDROGEN PEROXIDE 3% 118 ML BOTTLE TP SCH ×2 (09:56→21:00)
[2022-10-08] MEDS ORDERED: DIATR MEGLU/DIATRIZOATE SODIUM 30 ML BOTTLE ONE (12:25)
[2022-10-08] MEDS: ACETAMINOPHEN 650 MG/20 ML UDC- SA PATIENTS-PAIN ONLY GT PRN (13:43)
[2022-10-08 19:52] VITALS: O2SAT 98
[2022-10-08 20:00] VITALS: TEMP 98.4
[2022-10-08] MEDS: CRANBERRY 500 MG GT SCH (21:00)
[2022-10-08] MEDS: NUTRISOURCE FIBER 4 GM PACKET GT SCH (21:00)
[2022-10-08] MEDS: PROTEIN SUPPLEMENT (PROSTAT) 30 ML LIQUID GT SCH (21:00)
[2022-10-08] MEDS: MELATONIN 3MG TABLET GT SCH (21:00)
[2022-10-08] MEDS: RIVAROXABAN 15 MG TABLET GT SCH (21:00)
[2022-10-08] MEDS: MAGNESIUM COMPLEX GT SCH (21:00)
[2022-10-09] MEDS: OMEPRAZOLE 20 MG CAPSULE.DR GT SCH (06:00)
[2022-10-09] MEDS: BACLOFEN 10 MG TABLET GT SCH ×3 (06:00→18:27)
[2022-10-09] MEDS: MULTIVIT, IRON, MIN NO. 8, FA TABLET GT SCH (06:00)
[2022-10-09 07:36] VITALS: TEMP 97.3
[2022-10-09 08:05] VITALS: O2SAT 99
[2022-10-09] MEDS: VALPROIC ACID 250 MG/5 ML LIQUID UDC GT SCH ×3 (08:56→20:32)
[2022-10-09] MEDS: POLYVINYL ALCOHOL OPHT DROPS 15 ML BOTTLE EACHEYE SCH ×3 (08:58→18:00)
[2022-10-09] MEDS: busPIRone 10 MG TABLET GT SCH ×3 (08:58→18:00)
[2022-10-09] MEDS: DOCUSATE SODIUM 100 MG/10 ML LIQUID UDC GT SCH (08:58)
[2022-10-09] MEDS: MIRALAX 17 GM POWD.PACK GT SCH (09:00)
[2022-10-09] MEDS: ACIDOPHILUS/BULGARICUS CHEW TAB GT SCH ×2 (09:00→20:32)
[2022-10-09] MEDS: levETIRAcetam 500 MG/5 ML LIQUID UDC GT SCH ×2 (09:00→20:34)
[2022-10-09] MEDS: ESCITALOPRAM 5 MG GT SCH (09:00)
[2022-10-09] MEDS: POTASSIUM CHLORIDE 40 MEQ/30 ML LIQUID UDC GT SCH (09:00)
[2022-10-09] MEDS: COAL TAR TOP SCH (09:01)
[2022-10-09] MEDS: TOBRAMYCIN/DEXAMETH OPHT DROP 2.5 ML BOTTLE LEFTEYE SCH ×3 (09:01→18:00)
[2022-10-09] MEDS: OMEGA-3 FATTY ACIDS/FISH OIL CAPSULE GT SCH (09:01)
[2022-10-09] MEDS: REMEDY ESSENTIAL ZINC PASTE 113 GM TP SCH ×2 (09:01→20:38)
[2022-10-09] MEDS: HYDROGEN PEROXIDE 3% 118 ML BOTTLE TP SCH ×2 (09:05→19:23)
[2022-10-09 20:18] VITALS: TEMP 98.8
[2022-10-09] MEDS: MELATONIN 3MG TABLET GT SCH (20:34)
[2022-10-09] MEDS: CRANBERRY 500 MG GT SCH (20:35)
[2022-10-09] MEDS: MAGNESIUM COMPLEX GT SCH (20:36)
[2022-10-09] MEDS: PROTEIN SUPPLEMENT (PROSTAT) 30 ML LIQUID GT SCH (20:36)
[2022-10-09] MEDS: NUTRISOURCE FIBER 4 GM PACKET GT SCH (20:36)
[2022-10-09] MEDS: RIVAROXABAN 15 MG TABLET GT SCH (20:38)
[2022-10-09 21:04] VITALS: O2SAT 98
[2022-10-10] MEDS: TWOCAL HN 1,000 ML LIQUID GT PRN (03:40)
[2022-10-10] MEDS: OMEPRAZOLE 20 MG CAPSULE.DR GT SCH (05:03)
[2022-10-10] MEDS: MULTIVIT, IRON, MIN NO. 8, FA TABLET GT SCH (05:03)
[2022-10-10] MEDS: BACLOFEN 10 MG TABLET GT SCH ×4 (05:03→17:10)
[2022-10-10 07:35] VITALS: TEMP 97.7
[2022-10-10] MEDS: HYDROGEN PEROXIDE 3% 118 ML BOTTLE TP SCH ×2 (08:06→19:14)
[2022-10-10] MEDS: VALPROIC ACID 250 MG/5 ML LIQUID UDC GT SCH ×3 (09:00→21:00)
[2022-10-10] MEDS: DOCUSATE SODIUM 100 MG/10 ML LIQUID UDC GT SCH (09:08)
[2022-10-10] MEDS: POLYVINYL ALCOHOL OPHT DROPS 15 ML BOTTLE EACHEYE SCH ×3 (09:08→17:09)
[2022-10-10] MEDS: ACIDOPHILUS/BULGARICUS CHEW TAB GT SCH ×2 (09:08→21:00)
[2022-10-10] MEDS: OMEGA-3 FATTY ACIDS/FISH OIL CAPSULE GT SCH (09:08)
[2022-10-10] MEDS: busPIRone 10 MG TABLET GT SCH ×3 (09:08→17:09)
[2022-10-10] MEDS: POTASSIUM CHLORIDE 40 MEQ/30 ML LIQUID UDC GT SCH (09:10)
[2022-10-10] MEDS: levETIRAcetam 500 MG/5 ML LIQUID UDC GT SCH ×2 (09:10→21:00)
[2022-10-10] MEDS: ESCITALOPRAM 5 MG GT SCH (09:10)
[2022-10-10] MEDS: MIRALAX 17 GM POWD.PACK GT SCH (09:10)
[2022-10-10] MEDS: REMEDY ESSENTIAL ZINC PASTE 113 GM TP SCH ×2 (09:10→21:00)
[2022-10-10] MEDS: TOBRAMYCIN/DEXAMETH OPHT DROP 2.5 ML BOTTLE LEFTEYE SCH ×3 (09:10→17:10)
[2022-10-10 10:10] VITALS: O2SAT 98
[2022-10-10 21:00] VITALS: O2SAT 98
[2022-10-10] MEDS: PROTEIN SUPPLEMENT (PROSTAT) 30 ML LIQUID GT SCH (21:00)
[2022-10-10] MEDS: CRANBERRY 500 MG GT SCH (21:00)
[2022-10-10] MEDS: RIVAROXABAN 15 MG TABLET GT SCH (21:00)
[2022-10-10] MEDS: MELATONIN 3MG TABLET GT SCH (21:00)
[2022-10-10] MEDS: MAGNESIUM COMPLEX GT SCH (21:00)
[2022-10-10] MEDS: NUTRISOURCE FIBER 4 GM PACKET GT SCH (21:00)
[2022-10-10 21:57] VITALS: TEMP 97.9
[2022-10-10] MEDS: ACETAMINOPHEN 650 MG/20 ML UDC- SA PATIENTS-PAIN ONLY GT PRN (22:30)
[2022-10-11] MEDS: MULTIVIT, IRON, MIN NO. 8, FA TABLET GT SCH (05:24)
[2022-10-11] MEDS: OMEPRAZOLE 20 MG CAPSULE.DR GT SCH (05:24)
[2022-10-11] MEDS: BACLOFEN 10 MG TABLET GT SCH ×5 (05:24→23:17)
[2022-10-11] MEDS: HYDROGEN PEROXIDE 3% 118 ML BOTTLE TP SCH ×2 (08:04→21:00)
[2022-10-11 08:13] VITALS: TEMP 97.4
[2022-10-11] MEDS: DOCUSATE SODIUM 100 MG/10 ML LIQUID UDC GT SCH (08:43)
[2022-10-11] MEDS: VALPROIC ACID 250 MG/5 ML LIQUID UDC GT SCH ×3 (08:43→20:14)
[2022-10-11] MEDS: busPIRone 10 MG TABLET GT SCH ×3 (08:43→17:26)
[2022-10-11] MEDS: POLYVINYL ALCOHOL OPHT DROPS 15 ML BOTTLE EACHEYE SCH ×3 (08:43→17:26)
[2022-10-11] MEDS: levETIRAcetam 500 MG/5 ML LIQUID UDC GT SCH ×2 (08:44→20:16)
[2022-10-11] MEDS: OMEGA-3 FATTY ACIDS/FISH OIL CAPSULE GT SCH (08:44)
[2022-10-11] MEDS: ACIDOPHILUS/BULGARICUS CHEW TAB GT SCH ×2 (08:44→20:15)
[2022-10-11] MEDS: ESCITALOPRAM 5 MG GT SCH (08:44)
[2022-10-11] MEDS: TOBRAMYCIN/DEXAMETH OPHT DROP 2.5 ML BOTTLE LEFTEYE SCH ×3 (08:44→17:26)
[2022-10-11] MEDS: POTASSIUM CHLORIDE 40 MEQ/30 ML LIQUID UDC GT SCH (08:44)
[2022-10-11] MEDS: MIRALAX 17 GM POWD.PACK GT SCH (08:44)
[2022-10-11] MEDS: REMEDY ESSENTIAL ZINC PASTE 113 GM TP SCH ×2 (08:44→20:19)
[2022-10-11 11:28] VITALS: TEMP 97.4
[2022-10-11 16:02] VITALS: O2SAT 98
[2022-10-11 20:16] VITALS: TEMP 98.6
[2022-10-11] MEDS: MELATONIN 3MG TABLET GT SCH (20:16)
[2022-10-11] MEDS: NUTRISOURCE FIBER 4 GM PACKET GT SCH (20:17)
[2022-10-11] MEDS: MAGNESIUM COMPLEX GT SCH (20:17)
[2022-10-11] MEDS: CRANBERRY 500 MG GT SCH (20:17)
[2022-10-11] MEDS: PROTEIN SUPPLEMENT (PROSTAT) 30 ML LIQUID GT SCH (20:18)
[2022-10-11] MEDS: RIVAROXABAN 15 MG TABLET GT SCH (20:18)
[2022-10-11 20:20] VITALS: O2SAT 98
[2022-10-12] MEDS: TWOCAL HN 1,000 ML LIQUID GT PRN (03:59)
[2022-10-12] MEDS: BACLOFEN 10 MG TABLET GT SCH ×3 (05:14→17:21)
[2022-10-12] MEDS: OMEPRAZOLE 20 MG CAPSULE.DR GT SCH (05:14)
[2022-10-12] MEDS: MULTIVIT, IRON, MIN NO. 8, FA TABLET GT SCH (05:14)
[2022-10-12] MEDS: VALPROIC ACID 250 MG/5 ML LIQUID UDC GT SCH ×3 (08:00→21:50)
[2022-10-12] MEDS: HYDROGEN PEROXIDE 3% 118 ML BOTTLE TP SCH ×2 (09:00→19:17)
[2022-10-12] MEDS: TOBRAMYCIN/DEXAMETH OPHT DROP 2.5 ML BOTTLE LEFTEYE SCH ×3 (09:25→17:21)
[2022-10-12] MEDS: POTASSIUM CHLORIDE 40 MEQ/30 ML LIQUID UDC GT SCH (09:25)
[2022-10-12] MEDS: busPIRone 10 MG TABLET GT SCH ×3 (09:25→17:21)
[2022-10-12] MEDS: DOCUSATE SODIUM 100 MG/10 ML LIQUID UDC GT SCH (09:25)
[2022-10-12] MEDS: OMEGA-3 FATTY ACIDS/FISH OIL CAPSULE GT SCH (09:25)
[2022-10-12] MEDS: ESCITALOPRAM 5 MG GT SCH (09:25)
[2022-10-12] MEDS: REMEDY ESSENTIAL ZINC PASTE 113 GM TP SCH ×2 (09:25→21:55)
[2022-10-12] MEDS: levETIRAcetam 500 MG/5 ML LIQUID UDC GT SCH ×2 (09:25→21:53)
[2022-10-12] MEDS: MIRALAX 17 GM POWD.PACK GT SCH (09:25)
[2022-10-12] MEDS: ACIDOPHILUS/BULGARICUS CHEW TAB GT SCH ×2 (09:25→21:51)
[2022-10-12] MEDS: POLYVINYL ALCOHOL OPHT DROPS 15 ML BOTTLE EACHEYE SCH ×3 (09:25→17:21)
[2022-10-12 10:58] VITALS: TEMP 98.1
[2022-10-12 17:56] VITALS: O2SAT 98
[2022-10-12 20:00] VITALS: TEMP 98.1
[2022-10-12 20:45] VITALS: O2SAT 98
[2022-10-12] MEDS: MELATONIN 3MG TABLET GT SCH (21:51)
[2022-10-12] MEDS: NUTRISOURCE FIBER 4 GM PACKET GT SCH (21:54)
[2022-10-12] MEDS: PROTEIN SUPPLEMENT (PROSTAT) 30 ML LIQUID GT SCH (21:54)
[2022-10-12] MEDS: MAGNESIUM COMPLEX GT SCH (21:54)
[2022-10-12] MEDS: CRANBERRY 500 MG GT SCH (21:54)
[2022-10-12] MEDS: RIVAROXABAN 15 MG TABLET GT SCH (21:55)
[2022-10-13] MEDS: BACLOFEN 10 MG TABLET GT SCH ×4 (05:03→17:16)
[2022-10-13] MEDS: OMEPRAZOLE 20 MG CAPSULE.DR GT SCH (05:04)
[2022-10-13] MEDS: MULTIVIT, IRON, MIN NO. 8, FA TABLET GT SCH (05:04)
[2022-10-13] MEDS: VALPROIC ACID 250 MG/5 ML LIQUID UDC GT SCH ×3 (07:45→21:46)
[2022-10-13] MEDS: levETIRAcetam 500 MG/5 ML LIQUID UDC GT SCH ×2 (08:19→21:46)
[2022-10-13] MEDS: POLYVINYL ALCOHOL OPHT DROPS 15 ML BOTTLE EACHEYE SCH ×3 (08:19→16:54)
[2022-10-13] MEDS: OMEGA-3 FATTY ACIDS/FISH OIL CAPSULE GT SCH (08:19)
[2022-10-13] MEDS: MIRALAX 17 GM POWD.PACK GT SCH (08:19)
[2022-10-13] MEDS: ESCITALOPRAM 5 MG GT SCH (08:19)
[2022-10-13] MEDS: POTASSIUM CHLORIDE 40 MEQ/30 ML LIQUID UDC GT SCH (08:19)
[2022-10-13] MEDS: ACIDOPHILUS/BULGARICUS CHEW TAB GT SCH ×2 (08:19→21:46)
[2022-10-13] MEDS: DOCUSATE SODIUM 100 MG/10 ML LIQUID UDC GT SCH (08:19)
[2022-10-13] MEDS: busPIRone 10 MG TABLET GT SCH ×3 (08:19→16:54)
[2022-10-13] MEDS: COAL TAR TOP SCH (08:20)
[2022-10-13] MEDS: REMEDY ESSENTIAL ZINC PASTE 113 GM TP SCH ×2 (08:20→21:47)
[2022-10-13] MEDS: TOBRAMYCIN/DEXAMETH OPHT DROP 2.5 ML BOTTLE LEFTEYE SCH ×3 (08:20→16:54)
[2022-10-13] MEDS: HYDROGEN PEROXIDE 3% 118 ML BOTTLE TP SCH ×2 (09:00→19:19)
[2022-10-13 09:12] VITALS: TEMP 97.1
[2022-10-13 13:21] VITALS: O2SAT 98
[2022-10-13] MEDS: ACETAMINOPHEN 650 MG/20 ML UDC- SA PATIENTS-PAIN ONLY GT PRN (17:17)
[2022-10-13 20:00] VITALS: TEMP 97.8
[2022-10-13 20:40] VITALS: O2SAT 98
[2022-10-13] MEDS: MAGNESIUM COMPLEX GT SCH (21:46)
[2022-10-13] MEDS: CRANBERRY 500 MG GT SCH (21:46)
[2022-10-13] MEDS: MELATONIN 3MG TABLET GT SCH (21:46)
[2022-10-13] MEDS: PROTEIN SUPPLEMENT (PROSTAT) 30 ML LIQUID GT SCH (21:46)
[2022-10-13] MEDS: NUTRISOURCE FIBER 4 GM PACKET GT SCH (21:46)
[2022-10-13] MEDS: RIVAROXABAN 15 MG TABLET GT SCH (21:47)
[2022-10-14] MEDS: BACLOFEN 10 MG TABLET GT SCH ×5 (00:37→23:24)
[2022-10-14] MEDS: TWOCAL HN 1,000 ML LIQUID GT PRN (04:40)
[2022-10-14] MEDS: MULTIVIT, IRON, MIN NO. 8, FA TABLET GT SCH (05:50)
[2022-10-14] MEDS: OMEPRAZOLE 20 MG CAPSULE.DR GT SCH (05:50)
[2022-10-14 07:55] VITALS: TEMP 97.6
[2022-10-14] MEDS: VALPROIC ACID 250 MG/5 ML LIQUID UDC GT SCH ×3 (08:00→21:35)
[2022-10-14] MEDS: HYDROGEN PEROXIDE 3% 118 ML BOTTLE TP SCH ×2 (09:00→19:17)
[2022-10-14] MEDS: POLYVINYL ALCOHOL OPHT DROPS 15 ML BOTTLE EACHEYE SCH ×3 (09:05→16:31)
[2022-10-14] MEDS: OMEGA-3 FATTY ACIDS/FISH OIL CAPSULE GT SCH (09:06)
[2022-10-14] MEDS: DOCUSATE SODIUM 100 MG/10 ML LIQUID UDC GT SCH (09:06)
[2022-10-14] MEDS: busPIRone 10 MG TABLET GT SCH ×3 (09:06→16:31)
[2022-10-14] MEDS: ACIDOPHILUS/BULGARICUS CHEW TAB GT SCH ×2 (09:06→21:35)
[2022-10-14] MEDS: POTASSIUM CHLORIDE 40 MEQ/30 ML LIQUID UDC GT SCH (09:08)
[2022-10-14] MEDS: TOBRAMYCIN/DEXAMETH OPHT DROP 2.5 ML BOTTLE LEFTEYE SCH ×3 (09:08→16:33)
[2022-10-14] MEDS: MIRALAX 17 GM POWD.PACK GT SCH (09:08)
[2022-10-14] MEDS: levETIRAcetam 500 MG/5 ML LIQUID UDC GT SCH ×2 (09:08→21:35)
[2022-10-14] MEDS: REMEDY ESSENTIAL ZINC PASTE 113 GM TP SCH ×2 (09:09→21:38)
[2022-10-14] MEDS: ESCITALOPRAM 5 MG GT SCH (09:26)
[2022-10-14 11:27] VITALS: O2SAT 98
[2022-10-14 20:46] VITALS: O2SAT 98
[2022-10-14] MEDS: MELATONIN 3MG TABLET GT SCH (21:35)
[2022-10-14] MEDS: CRANBERRY 500 MG GT SCH (21:37)
[2022-10-14] MEDS: NUTRISOURCE FIBER 4 GM PACKET GT SCH (21:37)
[2022-10-14] MEDS: MAGNESIUM COMPLEX GT SCH (21:37)
[2022-10-14] MEDS: PROTEIN SUPPLEMENT (PROSTAT) 30 ML LIQUID GT SCH (21:37)
[2022-10-14] MEDS: RIVAROXABAN 15 MG TABLET GT SCH (21:38)
[2022-10-15] MEDS: MULTIVIT, IRON, MIN NO. 8, FA TABLET GT SCH (05:17)
[2022-10-15] MEDS: OMEPRAZOLE 20 MG CAPSULE.DR GT SCH (05:17)
[2022-10-15] MEDS: BACLOFEN 10 MG TABLET GT SCH ×3 (05:17→18:12)
[2022-10-15 07:36] VITALS: TEMP 97.2
[2022-10-15] MEDS: VALPROIC ACID 250 MG/5 ML LIQUID UDC GT SCH ×3 (08:34→21:00)
[2022-10-15] MEDS: POLYVINYL ALCOHOL OPHT DROPS 15 ML BOTTLE EACHEYE SCH ×3 (08:35→16:30)
[2022-10-15] MEDS: busPIRone 10 MG TABLET GT SCH ×3 (08:35→16:30)
[2022-10-15] MEDS: levETIRAcetam 500 MG/5 ML LIQUID UDC GT SCH ×2 (08:36→21:00)
[2022-10-15] MEDS: ACIDOPHILUS/BULGARICUS CHEW TAB GT SCH ×2 (08:36→21:00)
[2022-10-15] MEDS: DOCUSATE SODIUM 100 MG/10 ML LIQUID UDC GT SCH (08:36)
[2022-10-15] MEDS: OMEGA-3 FATTY ACIDS/FISH OIL CAPSULE GT SCH (08:36)
[2022-10-15] MEDS: MIRALAX 17 GM POWD.PACK GT SCH (08:37)
[2022-10-15] MEDS: ESCITALOPRAM 5 MG GT SCH (08:37)
[2022-10-15] MEDS: POTASSIUM CHLORIDE 40 MEQ/30 ML LIQUID UDC GT SCH (08:37)
[2022-10-15] MEDS: TOBRAMYCIN/DEXAMETH OPHT DROP 2.5 ML BOTTLE LEFTEYE SCH ×3 (08:37→16:32)
[2022-10-15] MEDS: REMEDY ESSENTIAL ZINC PASTE 113 GM TP SCH ×2 (08:38→21:00)
[2022-10-15] MEDS: HYDROGEN PEROXIDE 3% 118 ML BOTTLE TP SCH ×2 (08:40→21:09)
[2022-10-15 11:13] VITALS: O2SAT 98
[2022-10-15] MEDS: TWOCAL HN 1,000 ML LIQUID GT PRN (18:12)
[2022-10-15 20:00] VITALS: TEMP 98.4
[2022-10-15 20:40] VITALS: O2SAT 98
[2022-10-15] MEDS: MAGNESIUM COMPLEX GT SCH (21:00)
[2022-10-15] MEDS: MELATONIN 3MG TABLET GT SCH (21:00)
[2022-10-15] MEDS: RIVAROXABAN 15 MG TABLET GT SCH (21:00)
[2022-10-15] MEDS: NUTRISOURCE FIBER 4 GM PACKET GT SCH (21:00)
[2022-10-15] MEDS: PROTEIN SUPPLEMENT (PROSTAT) 30 ML LIQUID GT SCH (21:00)
[2022-10-15] MEDS: CRANBERRY 500 MG GT SCH (21:00)
[2022-10-16] MEDS: BACLOFEN 10 MG TABLET GT SCH ×5 (00:20→23:08)
[2022-10-16] MEDS: OMEPRAZOLE 20 MG CAPSULE.DR GT SCH (05:27)
[2022-10-16] MEDS: MULTIVIT, IRON, MIN NO. 8, FA TABLET GT SCH (05:27)
[2022-10-16 07:54] VITALS: TEMP 98.2
[2022-10-16] MEDS: VALPROIC ACID 250 MG/5 ML LIQUID UDC GT SCH ×3 (08:00→21:18)
[2022-10-16] MEDS: HYDROGEN PEROXIDE 3% 118 ML BOTTLE TP SCH ×2 (08:04→19:53)
[2022-10-16] MEDS: ACIDOPHILUS/BULGARICUS CHEW TAB GT SCH ×2 (09:39→21:21)
[2022-10-16] MEDS: POLYVINYL ALCOHOL OPHT DROPS 15 ML BOTTLE EACHEYE SCH ×3 (09:39→17:18)
[2022-10-16] MEDS: levETIRAcetam 500 MG/5 ML LIQUID UDC GT SCH ×2 (09:39→21:21)
[2022-10-16] MEDS: DOCUSATE SODIUM 100 MG/10 ML LIQUID UDC GT SCH (09:39)
[2022-10-16] MEDS: busPIRone 10 MG TABLET GT SCH ×3 (09:39→17:18)
[2022-10-16] MEDS: MIRALAX 17 GM POWD.PACK GT SCH (09:39)
[2022-10-16] MEDS: OMEGA-3 FATTY ACIDS/FISH OIL CAPSULE GT SCH (09:39)
[2022-10-16] MEDS: ESCITALOPRAM 5 MG GT SCH (09:39)
[2022-10-16] MEDS: POTASSIUM CHLORIDE 40 MEQ/30 ML LIQUID UDC GT SCH (09:40)
[2022-10-16] MEDS: COAL TAR TOP SCH (09:40)
[2022-10-16] MEDS: REMEDY ESSENTIAL ZINC PASTE 113 GM TP SCH ×2 (09:40→21:22)
[2022-10-16] MEDS: TOBRAMYCIN/DEXAMETH OPHT DROP 2.5 ML BOTTLE LEFTEYE SCH ×3 (09:40→17:19)
[2022-10-16 10:40] VITALS: O2SAT 98
[2022-10-16 20:00] VITALS: TEMP 97.4
[2022-10-16 20:42] VITALS: O2SAT 98
[2022-10-16] MEDS: MELATONIN 3MG TABLET GT SCH (21:21)
[2022-10-16] MEDS: NUTRISOURCE FIBER 4 GM PACKET GT SCH (21:21)
[2022-10-16] MEDS: MAGNESIUM COMPLEX GT SCH (21:21)
[2022-10-16] MEDS: CRANBERRY 500 MG GT SCH (21:21)
[2022-10-16] MEDS: PROTEIN SUPPLEMENT (PROSTAT) 30 ML LIQUID GT SCH (21:21)
[2022-10-16] MEDS: RIVAROXABAN 15 MG TABLET GT SCH (21:22)
[2022-10-17] MEDS: MULTIVIT, IRON, MIN NO. 8, FA TABLET GT SCH (05:21)
[2022-10-17] MEDS: BACLOFEN 10 MG TABLET GT SCH ×3 (05:21→17:37)
[2022-10-17] MEDS: OMEPRAZOLE 20 MG CAPSULE.DR GT SCH (05:21)
[2022-10-17 07:37] VITALS: TEMP 97.3
[2022-10-17 08:00] VITALS: O2SAT 98
[2022-10-17] MEDS: VALPROIC ACID 250 MG/5 ML LIQUID UDC GT SCH ×3 (08:59→21:00)
[2022-10-17] MEDS: OMEGA-3 FATTY ACIDS/FISH OIL CAPSULE GT SCH (09:00)
[2022-10-17] MEDS: POLYVINYL ALCOHOL OPHT DROPS 15 ML BOTTLE EACHEYE SCH ×3 (09:00→17:35)
[2022-10-17] MEDS: busPIRone 10 MG TABLET GT SCH ×3 (09:00→17:36)
[2022-10-17] MEDS: DOCUSATE SODIUM 100 MG/10 ML LIQUID UDC GT SCH (09:00)
[2022-10-17] MEDS: ACIDOPHILUS/BULGARICUS CHEW TAB GT SCH ×2 (09:00→21:00)
[2022-10-17] MEDS: levETIRAcetam 500 MG/5 ML LIQUID UDC GT SCH ×2 (09:01→21:00)
[2022-10-17] MEDS: ESCITALOPRAM 5 MG GT SCH (09:02)
[2022-10-17] MEDS: POTASSIUM CHLORIDE 40 MEQ/30 ML LIQUID UDC GT SCH (09:02)
[2022-10-17] MEDS: MIRALAX 17 GM POWD.PACK GT SCH (09:02)
[2022-10-17] MEDS: REMEDY ESSENTIAL ZINC PASTE 113 GM TP SCH ×2 (09:04→21:00)
[2022-10-17] MEDS: TOBRAMYCIN/DEXAMETH OPHT DROP 2.5 ML BOTTLE LEFTEYE SCH ×3 (09:04→17:37)
[2022-10-17] MEDS: HYDROGEN PEROXIDE 3% 118 ML BOTTLE TP SCH ×2 (09:40→19:27)
[2022-10-17 20:40] VITALS: O2SAT 98
[2022-10-17] MEDS: PROTEIN SUPPLEMENT (PROSTAT) 30 ML LIQUID GT SCH (21:00)
[2022-10-17] MEDS: CRANBERRY 500 MG GT SCH (21:00)
[2022-10-17] MEDS: NUTRISOURCE FIBER 4 GM PACKET GT SCH (21:00)
[2022-10-17] MEDS: MELATONIN 3MG TABLET GT SCH (21:00)
[2022-10-17] MEDS: MAGNESIUM COMPLEX GT SCH (21:00)
[2022-10-17] MEDS: RIVAROXABAN 15 MG TABLET GT SCH (21:36)
[2022-10-17 22:14] VITALS: TEMP 98.5
[2022-10-18] MEDS: BACLOFEN 10 MG TABLET GT SCH ×4 (00:44→17:17)
[2022-10-18] MEDS: OMEPRAZOLE 20 MG CAPSULE.DR GT SCH (05:36)
[2022-10-18] MEDS: MULTIVIT, IRON, MIN NO. 8, FA TABLET GT SCH (05:36)
[2022-10-18 08:00] VITALS: TEMP 97.6
[2022-10-18] MEDS: VALPROIC ACID 250 MG/5 ML LIQUID UDC GT SCH ×3 (08:00→21:11)
[2022-10-18] MEDS: HYDROGEN PEROXIDE 3% 118 ML BOTTLE TP SCH ×2 (08:04→20:44)
[2022-10-18] MEDS: DOCUSATE SODIUM 100 MG/10 ML LIQUID UDC GT SCH (09:38)
[2022-10-18] MEDS: ACIDOPHILUS/BULGARICUS CHEW TAB GT SCH ×2 (09:38→21:04)
[2022-10-18] MEDS: busPIRone 10 MG TABLET GT SCH ×3 (09:38→17:17)
[2022-10-18] MEDS: OMEGA-3 FATTY ACIDS/FISH OIL CAPSULE GT SCH (09:38)
[2022-10-18] MEDS: POLYVINYL ALCOHOL OPHT DROPS 15 ML BOTTLE EACHEYE SCH ×3 (09:38→17:17)
[2022-10-18] MEDS: levETIRAcetam 500 MG/5 ML LIQUID UDC GT SCH ×2 (09:38→21:12)
[2022-10-18] MEDS: MIRALAX 17 GM POWD.PACK GT SCH (09:39)
[2022-10-18] MEDS: TOBRAMYCIN/DEXAMETH OPHT DROP 2.5 ML BOTTLE LEFTEYE SCH ×3 (09:44→17:17)
[2022-10-18] MEDS: POTASSIUM CHLORIDE 40 MEQ/30 ML LIQUID UDC GT SCH (09:44)
[2022-10-18] MEDS: REMEDY ESSENTIAL ZINC PASTE 113 GM TP SCH ×2 (09:44→21:06)
[2022-10-18] MEDS: ESCITALOPRAM 5 MG GT SCH (09:44)
[2022-10-18 10:05] VITALS: O2SAT 98
[2022-10-18 20:25] VITALS: O2SAT 98
[2022-10-18] MEDS: NUTRISOURCE FIBER 4 GM PACKET GT SCH (21:04)
[2022-10-18] MEDS: MAGNESIUM COMPLEX GT SCH (21:05)
[2022-10-18] MEDS: MELATONIN 3MG TABLET GT SCH (21:05)
[2022-10-18] MEDS: CRANBERRY 500 MG GT SCH (21:05)
[2022-10-18] MEDS: PROTEIN SUPPLEMENT (PROSTAT) 30 ML LIQUID GT SCH (21:06)
[2022-10-18] MEDS: RIVAROXABAN 15 MG TABLET GT SCH (21:08)
[2022-10-18 22:06] VITALS: TEMP 97.7
[2022-10-19] MEDS: MULTIVIT, IRON, MIN NO. 8, FA TABLET GT SCH (05:12)
[2022-10-19] MEDS: BACLOFEN 10 MG TABLET GT SCH ×4 (05:12→17:12)
[2022-10-19] MEDS: OMEPRAZOLE 20 MG CAPSULE.DR GT SCH (05:12)
[2022-10-19 07:37] VITALS: TEMP 97.6
[2022-10-19] MEDS: VALPROIC ACID 250 MG/5 ML LIQUID UDC GT SCH ×3 (08:00→21:50)
[2022-10-19] MEDS: HYDROGEN PEROXIDE 3% 118 ML BOTTLE TP SCH ×2 (08:20→21:00)
[2022-10-19] MEDS: POLYVINYL ALCOHOL OPHT DROPS 15 ML BOTTLE EACHEYE SCH ×3 (09:08→17:11)
[2022-10-19] MEDS: ESCITALOPRAM 5 MG GT SCH (09:09)
[2022-10-19] MEDS: busPIRone 10 MG TABLET GT SCH ×3 (09:09→17:11)
[2022-10-19] MEDS: REMEDY ESSENTIAL ZINC PASTE 113 GM TP SCH ×2 (09:10→21:46)
[2022-10-19] MEDS: TOBRAMYCIN/DEXAMETH OPHT DROP 2.5 ML BOTTLE LEFTEYE SCH ×3 (09:10→17:13)
[2022-10-19] MEDS: POTASSIUM CHLORIDE 40 MEQ/30 ML LIQUID UDC GT SCH (09:10)
[2022-10-19] MEDS: levETIRAcetam 500 MG/5 ML LIQUID UDC GT SCH ×2 (09:11→21:44)
[2022-10-19] MEDS: DOCUSATE SODIUM 100 MG/10 ML LIQUID UDC GT SCH (09:11)
[2022-10-19] MEDS: MIRALAX 17 GM POWD.PACK GT SCH (09:12)
[2022-10-19] MEDS: ACIDOPHILUS/BULGARICUS CHEW TAB GT SCH ×2 (09:12→21:42)
[2022-10-19] MEDS: OMEGA-3 FATTY ACIDS/FISH OIL CAPSULE GT SCH (09:12)
[2022-10-19 11:15] VITALS: O2SAT 98
[2022-10-19] MEDS: ACETAMINOPHEN 650 MG/20 ML UDC- SA PATIENTS-PAIN ONLY GT PRN (11:43)
[2022-10-19 20:00] VITALS: TEMP 97.9
[2022-10-19 20:10] VITALS: O2SAT 98
[2022-10-19] MEDS: CRANBERRY 500 MG GT SCH (21:44)
[2022-10-19] MEDS: MAGNESIUM COMPLEX GT SCH (21:45)
[2022-10-19] MEDS: PROTEIN SUPPLEMENT (PROSTAT) 30 ML LIQUID GT SCH (21:46)
[2022-10-19] MEDS: NUTRISOURCE FIBER 4 GM PACKET GT SCH (21:46)
[2022-10-19] MEDS: MELATONIN 3MG TABLET GT SCH (21:50)
[2022-10-19] MEDS: RIVAROXABAN 15 MG TABLET GT SCH (21:52)
[2022-10-20] MEDS: BACLOFEN 10 MG TABLET GT SCH ×4 (00:36→17:04)
[2022-10-20] MEDS: TWOCAL HN 1,000 ML LIQUID GT PRN (00:54)
[2022-10-20] MEDS: OMEPRAZOLE 20 MG CAPSULE.DR GT SCH (05:33)
[2022-10-20] MEDS: MULTIVIT, IRON, MIN NO. 8, FA TABLET GT SCH (05:33)
[2022-10-20 08:00] VITALS: TEMP 98.1
[2022-10-20] MEDS: VALPROIC ACID 250 MG/5 ML LIQUID UDC GT SCH ×3 (08:42→21:00)
[2022-10-20] MEDS: DOCUSATE SODIUM 100 MG/10 ML LIQUID UDC GT SCH (08:46)
[2022-10-20] MEDS: busPIRone 10 MG TABLET GT SCH ×3 (08:46→17:03)
[2022-10-20] MEDS: POLYVINYL ALCOHOL OPHT DROPS 15 ML BOTTLE EACHEYE SCH ×3 (08:46→17:02)
[2022-10-20] MEDS: ESCITALOPRAM 5 MG GT SCH (08:47)
[2022-10-20] MEDS: OMEGA-3 FATTY ACIDS/FISH OIL CAPSULE GT SCH (08:49)
[2022-10-20] MEDS: ACIDOPHILUS/BULGARICUS CHEW TAB GT SCH ×2 (08:49→21:58)
[2022-10-20] MEDS: MIRALAX 17 GM POWD.PACK GT SCH (08:50)
[2022-10-20] MEDS: levETIRAcetam 500 MG/5 ML LIQUID UDC GT SCH ×2 (08:50→21:00)
[2022-10-20] MEDS: POTASSIUM CHLORIDE 40 MEQ/30 ML LIQUID UDC GT SCH (08:50)
[2022-10-20] MEDS: COAL TAR TOP SCH (08:51)
[2022-10-20] MEDS: REMEDY ESSENTIAL ZINC PASTE 113 GM TP SCH ×2 (08:51→21:00)
[2022-10-20] MEDS: TOBRAMYCIN/DEXAMETH OPHT DROP 2.5 ML BOTTLE LEFTEYE SCH ×3 (08:52→17:23)
[2022-10-20 09:10] VITALS: O2SAT 98
[2022-10-20] MEDS: HYDROGEN PEROXIDE 3% 118 ML BOTTLE TP SCH ×2 (09:10→21:52)
[2022-10-20] MEDS: ACETAMINOPHEN 650 MG/20 ML UDC- SA PATIENTS-PAIN ONLY GT PRN (15:50)
[2022-10-20 20:00] VITALS: TEMP 98
[2022-10-20] MEDS: RIVAROXABAN 15 MG TABLET GT SCH (21:00)
[2022-10-20] MEDS: CRANBERRY 500 MG GT SCH (21:58)
[2022-10-20] MEDS: MELATONIN 3MG TABLET GT SCH (21:58)
[2022-10-20] MEDS: NUTRISOURCE FIBER 4 GM PACKET GT SCH (21:58)
[2022-10-20] MEDS: MAGNESIUM COMPLEX GT SCH (21:58)
[2022-10-20] MEDS: PROTEIN SUPPLEMENT (PROSTAT) 30 ML LIQUID GT SCH (21:59)
[2022-10-21] MEDS: BACLOFEN 10 MG TABLET GT SCH ×5 (00:20→23:03)
[2022-10-21 04:16] VITALS: O2SAT 98
[2022-10-21] MEDS: MULTIVIT, IRON, MIN NO. 8, FA TABLET GT SCH (06:19)
[2022-10-21] MEDS: OMEPRAZOLE 20 MG CAPSULE.DR GT SCH (06:19)
[2022-10-21] MEDS: VALPROIC ACID 250 MG/5 ML LIQUID UDC GT SCH ×3 (08:47→21:51)
[2022-10-21] MEDS: POLYVINYL ALCOHOL OPHT DROPS 15 ML BOTTLE EACHEYE SCH ×3 (08:47→17:07)
[2022-10-21] MEDS: ACIDOPHILUS/BULGARICUS CHEW TAB GT SCH ×2 (08:48→21:51)
[2022-10-21] MEDS: OMEGA-3 FATTY ACIDS/FISH OIL CAPSULE GT SCH (08:48)
[2022-10-21] MEDS: busPIRone 10 MG TABLET GT SCH ×3 (08:48→17:07)
[2022-10-21] MEDS: DOCUSATE SODIUM 100 MG/10 ML LIQUID UDC GT SCH (08:48)
[2022-10-21] MEDS: MIRALAX 17 GM POWD.PACK GT SCH (08:49)
[2022-10-21] MEDS: levETIRAcetam 500 MG/5 ML LIQUID UDC GT SCH ×2 (08:49→21:51)
[2022-10-21] MEDS: ESCITALOPRAM 5 MG GT SCH (08:50)
[2022-10-21] MEDS: POTASSIUM CHLORIDE 40 MEQ/30 ML LIQUID UDC GT SCH (08:50)
[2022-10-21] MEDS: TOBRAMYCIN/DEXAMETH OPHT DROP 2.5 ML BOTTLE LEFTEYE SCH ×3 (09:00→17:13)
[2022-10-21] MEDS: REMEDY ESSENTIAL ZINC PASTE 113 GM TP SCH ×2 (09:17→21:51)
[2022-10-21] MEDS: HYDROGEN PEROXIDE 3% 118 ML BOTTLE TP SCH ×2 (09:18→21:48)
[2022-10-21 11:38] VITALS: TEMP 97
[2022-10-21 13:48] VITALS: O2SAT 98
[2022-10-21 20:43] VITALS: TEMP 97.8
[2022-10-21] MEDS: MAGNESIUM COMPLEX GT SCH (21:51)
[2022-10-21] MEDS: MELATONIN 3MG TABLET GT SCH (21:51)
[2022-10-21] MEDS: PROTEIN SUPPLEMENT (PROSTAT) 30 ML LIQUID GT SCH (21:51)
[2022-10-21] MEDS: CRANBERRY 500 MG GT SCH (21:51)
[2022-10-21] MEDS: RIVAROXABAN 15 MG TABLET GT SCH (21:51)
[2022-10-21] MEDS: NUTRISOURCE FIBER 4 GM PACKET GT SCH (21:51)
[2022-10-22] MEDS: TWOCAL HN 1,000 ML LIQUID GT PRN (03:00)
[2022-10-22] MEDS: OMEPRAZOLE 20 MG CAPSULE.DR GT SCH (05:20)
[2022-10-22] MEDS: BACLOFEN 10 MG TABLET GT SCH ×4 (05:20→23:51)
[2022-10-22] MEDS: MULTIVIT, IRON, MIN NO. 8, FA TABLET GT SCH (05:20)
[2022-10-22 07:20] VITALS: O2SAT 98
[2022-10-22 07:39] VITALS: TEMP 97.7
[2022-10-22] MEDS: VALPROIC ACID 250 MG/5 ML LIQUID UDC GT SCH ×3 (08:59→21:30)
[2022-10-22] MEDS: HYDROGEN PEROXIDE 3% 118 ML BOTTLE TP SCH ×2 (09:00→20:54)
[2022-10-22] MEDS: DOCUSATE SODIUM 100 MG/10 ML LIQUID UDC GT SCH (09:00)
[2022-10-22] MEDS: busPIRone 10 MG TABLET GT SCH ×3 (09:00→17:34)
[2022-10-22] MEDS: POLYVINYL ALCOHOL OPHT DROPS 15 ML BOTTLE EACHEYE SCH ×3 (09:00→17:48)
[2022-10-22] MEDS: REMEDY ESSENTIAL ZINC PASTE 113 GM TP SCH ×2 (09:00→21:31)
[2022-10-22] MEDS: ACIDOPHILUS/BULGARICUS CHEW TAB GT SCH ×2 (09:01→21:30)
[2022-10-22] MEDS: OMEGA-3 FATTY ACIDS/FISH OIL CAPSULE GT SCH (09:01)
[2022-10-22] MEDS: levETIRAcetam 500 MG/5 ML LIQUID UDC GT SCH ×2 (09:01→21:30)
[2022-10-22] MEDS: ESCITALOPRAM 5 MG GT SCH (09:02)
[2022-10-22] MEDS: MIRALAX 17 GM POWD.PACK GT SCH (09:03)
[2022-10-22] MEDS: POTASSIUM CHLORIDE 40 MEQ/30 ML LIQUID UDC GT SCH (09:03)
[2022-10-22] MEDS: TOBRAMYCIN/DEXAMETH OPHT DROP 2.5 ML BOTTLE LEFTEYE SCH ×3 (09:04→17:38)
[2022-10-22 10:42] VITALS: O2SAT 98
[2022-10-22] MEDS: ACETAMINOPHEN 650 MG/20 ML UDC- SA PATIENTS-PAIN ONLY GT PRN (16:33)
[2022-10-22 17:14] VITALS: O2SAT 98
[2022-10-22 20:35] VITALS: TEMP 97.8
[2022-10-22 20:50] VITALS: O2SAT 98
[2022-10-22] MEDS: CRANBERRY 500 MG GT SCH (21:30)
[2022-10-22] MEDS: NUTRISOURCE FIBER 4 GM PACKET GT SCH (21:30)
[2022-10-22] MEDS: PROTEIN SUPPLEMENT (PROSTAT) 30 ML LIQUID GT SCH (21:30)
[2022-10-22] MEDS: MELATONIN 3MG TABLET GT SCH (21:30)
[2022-10-22] MEDS: MAGNESIUM COMPLEX GT SCH (21:30)
[2022-10-22] MEDS: RIVAROXABAN 15 MG TABLET GT SCH (21:31)
[2022-10-23] MEDS: MULTIVIT, IRON, MIN NO. 8, FA TABLET GT SCH (05:34)
[2022-10-23] MEDS: BACLOFEN 10 MG TABLET GT SCH ×3 (05:34→17:19)
[2022-10-23] MEDS: OMEPRAZOLE 20 MG CAPSULE.DR GT SCH (05:34)
[2022-10-23 07:39] VITALS: TEMP 98.3
[2022-10-23] MEDS: POLYVINYL ALCOHOL OPHT DROPS 15 ML BOTTLE EACHEYE SCH ×3 (08:35→17:14)
[2022-10-23] MEDS: VALPROIC ACID 250 MG/5 ML LIQUID UDC GT SCH ×3 (08:35→21:27)
[2022-10-23] MEDS: busPIRone 10 MG TABLET GT SCH ×3 (08:36→17:14)
[2022-10-23] MEDS: DOCUSATE SODIUM 100 MG/10 ML LIQUID UDC GT SCH (08:39)
[2022-10-23] MEDS: OMEGA-3 FATTY ACIDS/FISH OIL CAPSULE GT SCH (08:40)
[2022-10-23] MEDS: ACIDOPHILUS/BULGARICUS CHEW TAB GT SCH ×2 (08:41→21:34)
[2022-10-23] MEDS: levETIRAcetam 500 MG/5 ML LIQUID UDC GT SCH ×2 (08:42→21:34)
[2022-10-23] MEDS: MIRALAX 17 GM POWD.PACK GT SCH (08:43)
[2022-10-23] MEDS: ESCITALOPRAM 5 MG GT SCH (08:44)
[2022-10-23] MEDS: TOBRAMYCIN/DEXAMETH OPHT DROP 2.5 ML BOTTLE LEFTEYE SCH ×3 (08:46→17:17)
[2022-10-23] MEDS: POTASSIUM CHLORIDE 40 MEQ/30 ML LIQUID UDC GT SCH (08:46)
[2022-10-23] MEDS: COAL TAR TOP SCH (09:00)
[2022-10-23] MEDS: REMEDY ESSENTIAL ZINC PASTE 113 GM TP SCH ×2 (09:00→21:37)
[2022-10-23 09:35] VITALS: O2SAT 98
[2022-10-23] MEDS: HYDROGEN PEROXIDE 3% 118 ML BOTTLE TP SCH ×2 (09:35→21:12)
[2022-10-23 15:30] VITALS: O2SAT 98
[2022-10-23] MEDS: ACETAMINOPHEN 650 MG/20 ML UDC- SA PATIENTS-PAIN ONLY GT PRN ×2 (17:31→18:45)
[2022-10-23 21:05] VITALS: O2SAT 98
[2022-10-23 21:34] VITALS: TEMP 98.2
[2022-10-23] MEDS: MAGNESIUM COMPLEX GT SCH (21:34)
[2022-10-23] MEDS: MELATONIN 3MG TABLET GT SCH (21:34)
[2022-10-23] MEDS: PROTEIN SUPPLEMENT (PROSTAT) 30 ML LIQUID GT SCH (21:34)
[2022-10-23] MEDS: NUTRISOURCE FIBER 4 GM PACKET GT SCH (21:34)
[2022-10-23] MEDS: CRANBERRY 500 MG GT SCH (21:34)
[2022-10-23] MEDS: RIVAROXABAN 15 MG TABLET GT SCH (21:35)
[2022-10-24] MEDS: BACLOFEN 10 MG TABLET GT SCH ×4 (00:40→17:02)
[2022-10-24] MEDS: TWOCAL HN 1,000 ML LIQUID GT PRN (03:00)
[2022-10-24] MEDS: OMEPRAZOLE 20 MG CAPSULE.DR GT SCH (05:12)
[2022-10-24] MEDS: MULTIVIT, IRON, MIN NO. 8, FA TABLET GT SCH (05:13)
[2022-10-24 07:40] VITALS: TEMP 98.3
[2022-10-24] MEDS: POLYVINYL ALCOHOL OPHT DROPS 15 ML BOTTLE EACHEYE SCH ×3 (08:28→17:02)
[2022-10-24] MEDS: VALPROIC ACID 250 MG/5 ML LIQUID UDC GT SCH ×3 (08:28→20:55)
[2022-10-24] MEDS: DOCUSATE SODIUM 100 MG/10 ML LIQUID UDC GT SCH (08:29)
[2022-10-24] MEDS: ACIDOPHILUS/BULGARICUS CHEW TAB GT SCH ×2 (08:29→20:55)
[2022-10-24] MEDS: busPIRone 10 MG TABLET GT SCH ×3 (08:29→17:02)
[2022-10-24] MEDS: OMEGA-3 FATTY ACIDS/FISH OIL CAPSULE GT SCH (08:29)
[2022-10-24] MEDS: REMEDY ESSENTIAL ZINC PASTE 113 GM TP SCH ×2 (08:30→20:57)
[2022-10-24] MEDS: ESCITALOPRAM 5 MG GT SCH (08:30)
[2022-10-24] MEDS: MIRALAX 17 GM POWD.PACK GT SCH (08:30)
[2022-10-24] MEDS: TOBRAMYCIN/DEXAMETH OPHT DROP 2.5 ML BOTTLE LEFTEYE SCH ×3 (08:30→17:02)
[2022-10-24] MEDS: POTASSIUM CHLORIDE 40 MEQ/30 ML LIQUID UDC GT SCH (08:30)
[2022-10-24] MEDS: levETIRAcetam 500 MG/5 ML LIQUID UDC GT SCH ×2 (08:30→20:55)
[2022-10-24] MEDS: HYDROGEN PEROXIDE 3% 118 ML BOTTLE TP SCH ×2 (08:39→21:06)
[2022-10-24 16:11] VITALS: O2SAT 98
[2022-10-24 20:38] VITALS: TEMP 98.7
[2022-10-24] MEDS: CRANBERRY 500 MG GT SCH (20:55)
[2022-10-24] MEDS: MELATONIN 3MG TABLET GT SCH (20:55)
[2022-10-24] MEDS: RIVAROXABAN 15 MG TABLET GT SCH (20:56)
[2022-10-24] MEDS: MAGNESIUM COMPLEX GT SCH (20:56)
[2022-10-24] MEDS: NUTRISOURCE FIBER 4 GM PACKET GT SCH (20:56)
[2022-10-24] MEDS: PROTEIN SUPPLEMENT (PROSTAT) 30 ML LIQUID GT SCH (20:56)
[2022-10-24 21:26] VITALS: O2SAT 98
[2022-10-25] MEDS: BACLOFEN 10 MG TABLET GT SCH ×4 (00:08→17:05)
[2022-10-25] MEDS: OMEPRAZOLE 20 MG CAPSULE.DR GT SCH (05:13)
[2022-10-25] MEDS: MULTIVIT, IRON, MIN NO. 8, FA TABLET GT SCH (05:13)
[2022-10-25 08:00] VITALS: TEMP 97.6
[2022-10-25] MEDS: HYDROGEN PEROXIDE 3% 118 ML BOTTLE TP SCH ×2 (08:23→21:43)
[2022-10-25] MEDS: POLYVINYL ALCOHOL OPHT DROPS 15 ML BOTTLE EACHEYE SCH ×3 (08:26→17:05)
[2022-10-25] MEDS: VALPROIC ACID 250 MG/5 ML LIQUID UDC GT SCH ×3 (08:26→21:17)
[2022-10-25] MEDS: OMEGA-3 FATTY ACIDS/FISH OIL CAPSULE GT SCH (08:27)
[2022-10-25] MEDS: ACIDOPHILUS/BULGARICUS CHEW TAB GT SCH ×2 (08:27→21:17)
[2022-10-25] MEDS: MIRALAX 17 GM POWD.PACK GT SCH (08:27)
[2022-10-25] MEDS: DOCUSATE SODIUM 100 MG/10 ML LIQUID UDC GT SCH (08:27)
[2022-10-25] MEDS: busPIRone 10 MG TABLET GT SCH ×3 (08:27→17:05)
[2022-10-25] MEDS: levETIRAcetam 500 MG/5 ML LIQUID UDC GT SCH ×2 (08:27→21:17)
[2022-10-25] MEDS: ESCITALOPRAM 5 MG GT SCH (08:27)
[2022-10-25] MEDS: POTASSIUM CHLORIDE 40 MEQ/30 ML LIQUID UDC GT SCH (08:28)
[2022-10-25] MEDS: TOBRAMYCIN/DEXAMETH OPHT DROP 2.5 ML BOTTLE LEFTEYE SCH ×3 (08:28→17:05)
[2022-10-25] MEDS: REMEDY ESSENTIAL ZINC PASTE 113 GM TP SCH ×2 (08:28→21:18)
[2022-10-25 14:57] VITALS: O2SAT 98
[2022-10-25 20:00] VITALS: TEMP 98.7
[2022-10-25 20:25] VITALS: O2SAT 98
[2022-10-25 20:32] VITALS: TEMP 98.7
[2022-10-25] MEDS: CRANBERRY 500 MG GT SCH (21:17)
[2022-10-25] MEDS: PROTEIN SUPPLEMENT (PROSTAT) 30 ML LIQUID GT SCH (21:17)
[2022-10-25] MEDS: MELATONIN 3MG TABLET GT SCH (21:17)
[2022-10-25] MEDS: MAGNESIUM COMPLEX GT SCH (21:17)
[2022-10-25] MEDS: NUTRISOURCE FIBER 4 GM PACKET GT SCH (21:17)
[2022-10-25] MEDS: RIVAROXABAN 15 MG TABLET GT SCH (21:18)
[2022-10-26] MEDS: BACLOFEN 10 MG TABLET GT SCH ×4 (00:28→17:24)
[2022-10-26] MEDS: MULTIVIT, IRON, MIN NO. 8, FA TABLET GT SCH (05:11)
[2022-10-26] MEDS: OMEPRAZOLE 20 MG CAPSULE.DR GT SCH (05:11)
[2022-10-26 07:43] VITALS: TEMP 97.7
[2022-10-26] MEDS: HYDROGEN PEROXIDE 3% 118 ML BOTTLE TP SCH ×2 (08:43→21:00)
[2022-10-26] MEDS: VALPROIC ACID 250 MG/5 ML LIQUID UDC GT SCH ×3 (08:52→20:35)
[2022-10-26] MEDS: POLYVINYL ALCOHOL OPHT DROPS 15 ML BOTTLE EACHEYE SCH ×3 (08:52→17:23)
[2022-10-26] MEDS: busPIRone 10 MG TABLET GT SCH ×3 (08:53→17:23)
[2022-10-26] MEDS: levETIRAcetam 500 MG/5 ML LIQUID UDC GT SCH ×2 (08:54→20:36)
[2022-10-26] MEDS: ACIDOPHILUS/BULGARICUS CHEW TAB GT SCH ×2 (08:54→20:35)
[2022-10-26] MEDS: DOCUSATE SODIUM 100 MG/10 ML LIQUID UDC GT SCH (08:54)
[2022-10-26] MEDS: OMEGA-3 FATTY ACIDS/FISH OIL CAPSULE GT SCH (08:54)
[2022-10-26] MEDS: MIRALAX 17 GM POWD.PACK GT SCH (08:55)
[2022-10-26] MEDS: ESCITALOPRAM 5 MG GT SCH (08:55)
[2022-10-26] MEDS: REMEDY ESSENTIAL ZINC PASTE 113 GM TP SCH ×2 (08:55→20:52)
[2022-10-26] MEDS: POTASSIUM CHLORIDE 40 MEQ/30 ML LIQUID UDC GT SCH (08:55)
[2022-10-26 12:29] VITALS: O2SAT 98
[2022-10-26] MEDS: ACETAMINOPHEN 650 MG/20 ML UDC- SA PATIENTS-PAIN ONLY GT PRN (17:25)
[2022-10-26 20:00] VITALS: TEMP 98.8
[2022-10-26] MEDS: MELATONIN 3MG TABLET GT SCH (20:35)
[2022-10-26] MEDS: CRANBERRY 500 MG GT SCH (20:38)
[2022-10-26] MEDS: MAGNESIUM COMPLEX GT SCH (20:39)
[2022-10-26] MEDS: NUTRISOURCE FIBER 4 GM PACKET GT SCH (20:42)
[2022-10-26] MEDS: PROTEIN SUPPLEMENT (PROSTAT) 30 ML LIQUID GT SCH (20:42)
[2022-10-26] MEDS: RIVAROXABAN 15 MG TABLET GT SCH (21:00)
[2022-10-27] MEDS: BACLOFEN 10 MG TABLET GT SCH ×4 (00:48→17:10)
[2022-10-27] MEDS: TWOCAL HN 1,000 ML LIQUID GT PRN (04:00)
[2022-10-27] MEDS: OMEPRAZOLE 20 MG CAPSULE.DR GT SCH (05:56)
[2022-10-27] MEDS: MULTIVIT, IRON, MIN NO. 8, FA TABLET GT SCH (05:56)
[2022-10-27] MEDS: HYDROGEN PEROXIDE 3% 118 ML BOTTLE TP SCH ×2 (08:05→19:13)
[2022-10-27] MEDS: VALPROIC ACID 250 MG/5 ML LIQUID UDC GT SCH ×3 (08:57→20:25)
[2022-10-27] MEDS: busPIRone 10 MG TABLET GT SCH ×3 (08:58→16:52)
[2022-10-27] MEDS: POLYVINYL ALCOHOL OPHT DROPS 15 ML BOTTLE EACHEYE SCH ×3 (08:58→16:51)
[2022-10-27] MEDS: MIRALAX 17 GM POWD.PACK GT SCH (08:59)
[2022-10-27] MEDS: POTASSIUM CHLORIDE 40 MEQ/30 ML LIQUID UDC GT SCH (08:59)
[2022-10-27] MEDS: DOCUSATE SODIUM 100 MG/10 ML LIQUID UDC GT SCH (08:59)
[2022-10-27] MEDS: ESCITALOPRAM 5 MG GT SCH (08:59)
[2022-10-27] MEDS: ACIDOPHILUS/BULGARICUS CHEW TAB GT SCH ×2 (08:59→20:26)
[2022-10-27] MEDS: levETIRAcetam 500 MG/5 ML LIQUID UDC GT SCH ×2 (08:59→20:26)
[2022-10-27] MEDS: REMEDY ESSENTIAL ZINC PASTE 113 GM TP SCH ×2 (09:00→20:32)
[2022-10-27] MEDS: OMEGA-3 FATTY ACIDS/FISH OIL CAPSULE GT SCH (09:00)
[2022-10-27] MEDS: COAL TAR TOP SCH (09:00)
[2022-10-27 10:40] VITALS: O2SAT 98
[2022-10-27 19:50] VITALS: O2SAT 98
[2022-10-27] MEDS: MELATONIN 3MG TABLET GT SCH (20:26)
[2022-10-27 20:27] VITALS: TEMP 98.3
[2022-10-27] MEDS: CRANBERRY 500 MG GT SCH (20:27)
[2022-10-27] MEDS: NUTRISOURCE FIBER 4 GM PACKET GT SCH (20:28)
[2022-10-27] MEDS: MAGNESIUM COMPLEX GT SCH (20:28)
[2022-10-27] MEDS: PROTEIN SUPPLEMENT (PROSTAT) 30 ML LIQUID GT SCH (20:29)
[2022-10-27] MEDS: RIVAROXABAN 15 MG TABLET GT SCH (20:30)
[2022-10-28] MEDS: MULTIVIT, IRON, MIN NO. 8, FA TABLET GT SCH (06:07)
[2022-10-28] MEDS: BACLOFEN 10 MG TABLET GT SCH ×4 (06:07→17:03)
[2022-10-28] MEDS: OMEPRAZOLE 20 MG CAPSULE.DR GT SCH (06:07)
[2022-10-28 07:20] VITALS: TEMP 98.5
[2022-10-28 07:35] VITALS: O2SAT 98
[2022-10-28] MEDS: HYDROGEN PEROXIDE 3% 118 ML BOTTLE TP SCH ×2 (07:35→20:02)
[2022-10-28] MEDS: VALPROIC ACID 250 MG/5 ML LIQUID UDC GT SCH ×3 (08:24→21:04)
[2022-10-28] MEDS: busPIRone 10 MG TABLET GT SCH ×3 (08:25→17:03)
[2022-10-28] MEDS: DOCUSATE SODIUM 100 MG/10 ML LIQUID UDC GT SCH (08:25)
[2022-10-28] MEDS: POLYVINYL ALCOHOL OPHT DROPS 15 ML BOTTLE EACHEYE SCH ×3 (08:25→16:57)
[2022-10-28] MEDS: OMEGA-3 FATTY ACIDS/FISH OIL CAPSULE GT SCH (08:26)
[2022-10-28] MEDS: ACIDOPHILUS/BULGARICUS CHEW TAB GT SCH ×2 (08:26→21:05)
[2022-10-28] MEDS: levETIRAcetam 500 MG/5 ML LIQUID UDC GT SCH ×2 (08:30→21:06)
[2022-10-28] MEDS: POTASSIUM CHLORIDE 40 MEQ/30 ML LIQUID UDC GT SCH (08:31)
[2022-10-28] MEDS: MIRALAX 17 GM POWD.PACK GT SCH (08:31)
[2022-10-28] MEDS: ESCITALOPRAM 5 MG GT SCH (08:31)
[2022-10-28] MEDS: REMEDY ESSENTIAL ZINC PASTE 113 GM TP SCH ×2 (08:32→21:09)
[2022-10-28] MEDS: ACETAMINOPHEN 650 MG/20 ML UDC- SA PATIENTS-PAIN ONLY GT PRN (17:13)
[2022-10-28 19:48] VITALS: TEMP 98.6
[2022-10-28 20:40] VITALS: O2SAT 98
[2022-10-28] MEDS: MELATONIN 3MG TABLET GT SCH (21:05)
[2022-10-28] MEDS: CRANBERRY 500 MG GT SCH (21:06)
[2022-10-28] MEDS: MAGNESIUM COMPLEX GT SCH (21:07)
[2022-10-28] MEDS: NUTRISOURCE FIBER 4 GM PACKET GT SCH (21:07)
[2022-10-28] MEDS: RIVAROXABAN 15 MG TABLET GT SCH (21:08)
[2022-10-28] MEDS: PROTEIN SUPPLEMENT (PROSTAT) 30 ML LIQUID GT SCH (21:08)
[2022-10-29] MEDS: TWOCAL HN 1,000 ML LIQUID GT PRN (04:00)
[2022-10-29] MEDS: MULTIVIT, IRON, MIN NO. 8, FA TABLET GT SCH (05:38)
[2022-10-29] MEDS: BACLOFEN 10 MG TABLET GT SCH ×4 (05:38→18:18)
[2022-10-29] MEDS: OMEPRAZOLE 20 MG CAPSULE.DR GT SCH (05:38)
[2022-10-29] MEDS: OMEGA-3 FATTY ACIDS/FISH OIL CAPSULE GT SCH (08:15)
[2022-10-29] MEDS: VALPROIC ACID 250 MG/5 ML LIQUID UDC GT SCH ×3 (08:15→21:00)
[2022-10-29] MEDS: DOCUSATE SODIUM 100 MG/10 ML LIQUID UDC GT SCH (08:15)
[2022-10-29] MEDS: busPIRone 10 MG TABLET GT SCH ×3 (08:15→16:49)
[2022-10-29] MEDS: ACIDOPHILUS/BULGARICUS CHEW TAB GT SCH ×2 (08:15→21:00)
[2022-10-29] MEDS: POLYVINYL ALCOHOL OPHT DROPS 15 ML BOTTLE EACHEYE SCH ×3 (08:15→16:49)
[2022-10-29] MEDS: REMEDY ESSENTIAL ZINC PASTE 113 GM TP SCH ×2 (08:16→21:00)
[2022-10-29] MEDS: MIRALAX 17 GM POWD.PACK GT SCH (08:16)
[2022-10-29] MEDS: levETIRAcetam 500 MG/5 ML LIQUID UDC GT SCH ×2 (08:16→21:00)
[2022-10-29] MEDS: POTASSIUM CHLORIDE 40 MEQ/30 ML LIQUID UDC GT SCH (08:16)
[2022-10-29] MEDS: ESCITALOPRAM 5 MG GT SCH (08:16)
[2022-10-29] MEDS: HYDROGEN PEROXIDE 3% 118 ML BOTTLE TP SCH ×2 (08:35→20:35)
[2022-10-29 12:51] VITALS: O2SAT 98
[2022-10-29 20:00] VITALS: TEMP 97.8
[2022-10-29 20:37] VITALS: O2SAT 98
[2022-10-29] MEDS: CRANBERRY 500 MG GT SCH (21:00)
[2022-10-29] MEDS: NUTRISOURCE FIBER 4 GM PACKET GT SCH (21:00)
[2022-10-29] MEDS: PROTEIN SUPPLEMENT (PROSTAT) 30 ML LIQUID GT SCH (21:00)
[2022-10-29] MEDS: MELATONIN 3MG TABLET GT SCH (21:00)
[2022-10-29] MEDS: RIVAROXABAN 15 MG TABLET GT SCH (21:00)
[2022-10-29] MEDS: MAGNESIUM COMPLEX GT SCH (21:00)
[2022-10-30] MEDS: BACLOFEN 10 MG TABLET GT SCH ×4 (06:00→17:01)
[2022-10-30] MEDS: MULTIVIT, IRON, MIN NO. 8, FA TABLET GT SCH (06:00)
[2022-10-30] MEDS: OMEPRAZOLE 20 MG CAPSULE.DR GT SCH (06:00)
[2022-10-30 07:28] VITALS: TEMP 98.9
[2022-10-30] MEDS: HYDROGEN PEROXIDE 3% 118 ML BOTTLE TP SCH ×2 (08:07→21:24)
[2022-10-30] MEDS: DOCUSATE SODIUM 100 MG/10 ML LIQUID UDC GT SCH (08:51)
[2022-10-30] MEDS: VALPROIC ACID 250 MG/5 ML LIQUID UDC GT SCH ×3 (08:51→20:35)
[2022-10-30] MEDS: levETIRAcetam 500 MG/5 ML LIQUID UDC GT SCH ×2 (08:51→20:36)
[2022-10-30] MEDS: busPIRone 10 MG TABLET GT SCH ×3 (08:51→17:01)
[2022-10-30] MEDS: POLYVINYL ALCOHOL OPHT DROPS 15 ML BOTTLE EACHEYE SCH ×3 (08:51→17:01)
[2022-10-30] MEDS: OMEGA-3 FATTY ACIDS/FISH OIL CAPSULE GT SCH (08:51)
[2022-10-30] MEDS: ACIDOPHILUS/BULGARICUS CHEW TAB GT SCH ×2 (08:51→20:35)
[2022-10-30] MEDS: POTASSIUM CHLORIDE 40 MEQ/30 ML LIQUID UDC GT SCH (08:52)
[2022-10-30] MEDS: ESCITALOPRAM 5 MG GT SCH (08:52)
[2022-10-30] MEDS: MIRALAX 17 GM POWD.PACK GT SCH (08:52)
[2022-10-30] MEDS: REMEDY ESSENTIAL ZINC PASTE 113 GM TP SCH ×2 (08:52→20:38)
[2022-10-30] MEDS: COAL TAR TOP SCH (08:52)
[2022-10-30 10:40] VITALS: O2SAT 98
[2022-10-30 20:00] VITALS: TEMP 97.9
[2022-10-30 20:19] VITALS: O2SAT 98
[2022-10-30] MEDS: MELATONIN 3MG TABLET GT SCH (20:36)
[2022-10-30] MEDS: MAGNESIUM COMPLEX GT SCH (20:37)
[2022-10-30] MEDS: NUTRISOURCE FIBER 4 GM PACKET GT SCH (20:37)
[2022-10-30] MEDS: CRANBERRY 500 MG GT SCH (20:37)
[2022-10-30] MEDS: PROTEIN SUPPLEMENT (PROSTAT) 30 ML LIQUID GT SCH (20:38)
[2022-10-30] MEDS: RIVAROXABAN 15 MG TABLET GT SCH (21:15)
[2022-10-31] MEDS: BACLOFEN 10 MG TABLET GT SCH ×4 (00:17→17:18)
[2022-10-31] MEDS: MULTIVIT, IRON, MIN NO. 8, FA TABLET GT SCH (05:28)
[2022-10-31] MEDS: OMEPRAZOLE 20 MG CAPSULE.DR GT SCH (05:28)
[2022-10-31] MEDS: TWOCAL HN 1,000 ML LIQUID GT PRN (06:32)
[2022-10-31 08:18] VITALS: TEMP 97.3
[2022-10-31] MEDS: POLYVINYL ALCOHOL OPHT DROPS 15 ML BOTTLE EACHEYE SCH ×3 (08:27→17:17)
[2022-10-31] MEDS: DOCUSATE SODIUM 100 MG/10 ML LIQUID UDC GT SCH (08:27)
[2022-10-31] MEDS: busPIRone 10 MG TABLET GT SCH ×3 (08:27→17:17)
[2022-10-31] MEDS: VALPROIC ACID 250 MG/5 ML LIQUID UDC GT SCH ×3 (08:27→20:53)
[2022-10-31] MEDS: ACIDOPHILUS/BULGARICUS CHEW TAB GT SCH ×2 (08:28→20:54)
[2022-10-31] MEDS: OMEGA-3 FATTY ACIDS/FISH OIL CAPSULE GT SCH (08:28)
[2022-10-31] MEDS: levETIRAcetam 500 MG/5 ML LIQUID UDC GT SCH ×2 (08:28→20:56)
[2022-10-31] MEDS: MIRALAX 17 GM POWD.PACK GT SCH (08:29)
[2022-10-31] MEDS: POTASSIUM CHLORIDE 40 MEQ/30 ML LIQUID UDC GT SCH (08:30)
[2022-10-31] MEDS: ESCITALOPRAM 5 MG GT SCH (08:30)
[2022-10-31] MEDS: REMEDY ESSENTIAL ZINC PASTE 113 GM TP SCH ×2 (08:31→20:57)
[2022-10-31] MEDS: HYDROGEN PEROXIDE 3% 118 ML BOTTLE TP SCH ×2 (09:00→20:57)
[2022-10-31 11:08] VITALS: O2SAT 98
[2022-10-31 20:42] VITALS: TEMP 97.8
[2022-10-31 20:51] VITALS: O2SAT 98
[2022-10-31] MEDS: MELATONIN 3MG TABLET GT SCH (20:55)
[2022-10-31] MEDS: MAGNESIUM COMPLEX GT SCH (20:56)
[2022-10-31] MEDS: CRANBERRY 500 MG GT SCH (20:56)
[2022-10-31] MEDS: NUTRISOURCE FIBER 4 GM PACKET GT SCH (20:56)
[2022-10-31] MEDS: PROTEIN SUPPLEMENT (PROSTAT) 30 ML LIQUID GT SCH (20:57)
[2022-10-31] MEDS: RIVAROXABAN 15 MG TABLET GT SCH (21:38)
[2022-11-01] MEDS: BACLOFEN 10 MG TABLET GT SCH ×5 (00:55→23:12)
[2022-11-01] MEDS: OMEPRAZOLE 20 MG CAPSULE.DR GT SCH (05:22)
[2022-11-01] MEDS: MULTIVIT, IRON, MIN NO. 8, FA TABLET GT SCH (05:22)
[2022-11-01] MEDS: HYDROGEN PEROXIDE 3% 118 ML BOTTLE TP SCH ×2 (07:39→20:18)
[2022-11-01 07:44] VITALS: TEMP 97.3
[2022-11-01] MEDS: VALPROIC ACID 250 MG/5 ML LIQUID UDC GT SCH ×3 (08:00→21:32)
[2022-11-01] MEDS: DOCUSATE SODIUM 100 MG/10 ML LIQUID UDC GT SCH (09:00)
[2022-11-01] MEDS: MIRALAX 17 GM POWD.PACK GT SCH (09:00)
[2022-11-01] MEDS: OMEGA-3 FATTY ACIDS/FISH OIL CAPSULE GT SCH (09:00)
[2022-11-01] MEDS: POTASSIUM CHLORIDE 40 MEQ/30 ML LIQUID UDC GT SCH (09:00)
[2022-11-01] MEDS: busPIRone 10 MG TABLET GT SCH ×3 (09:00→17:00)
[2022-11-01] MEDS: REMEDY ESSENTIAL ZINC PASTE 113 GM TP SCH ×2 (09:00→21:35)
[2022-11-01] MEDS: POLYVINYL ALCOHOL OPHT DROPS 15 ML BOTTLE EACHEYE SCH ×3 (09:00→17:00)
[2022-11-01] MEDS: ESCITALOPRAM 5 MG GT SCH (09:00)
[2022-11-01] MEDS: ACIDOPHILUS/BULGARICUS CHEW TAB GT SCH ×2 (09:00→21:33)
[2022-11-01] MEDS: levETIRAcetam 500 MG/5 ML LIQUID UDC GT SCH ×2 (09:00→21:33)
[2022-11-01 10:15] VITALS: O2SAT 98
[2022-11-01 20:04] VITALS: TEMP 97.8
[2022-11-01 20:18] VITALS: O2SAT 99
[2022-11-01] MEDS: MAGNESIUM COMPLEX GT SCH (21:33)
[2022-11-01] MEDS: MELATONIN 3MG TABLET GT SCH (21:33)
[2022-11-01] MEDS: CRANBERRY 500 MG GT SCH (21:33)
[2022-11-01] MEDS: NUTRISOURCE FIBER 4 GM PACKET GT SCH (21:34)
[2022-11-01] MEDS: PROTEIN SUPPLEMENT (PROSTAT) 30 ML LIQUID GT SCH (21:35)
[2022-11-01] MEDS: RIVAROXABAN 15 MG TABLET GT SCH (21:45)
[2022-11-02] MEDS: BACLOFEN 10 MG TABLET GT SCH ×4 (06:15→23:44)
[2022-11-02] MEDS: OMEPRAZOLE 20 MG CAPSULE.DR GT SCH (06:15)
[2022-11-02] MEDS: MULTIVIT, IRON, MIN NO. 8, FA TABLET GT SCH (06:15)
[2022-11-02] MEDS: HYDROGEN PEROXIDE 3% 118 ML BOTTLE TP SCH ×2 (08:22→21:01)
[2022-11-02] MEDS: VALPROIC ACID 250 MG/5 ML LIQUID UDC GT SCH ×3 (08:59→21:07)
[2022-11-02] MEDS: busPIRone 10 MG TABLET GT SCH ×3 (09:06→18:00)
[2022-11-02] MEDS: levETIRAcetam 500 MG/5 ML LIQUID UDC GT SCH ×2 (09:06→21:01)
[2022-11-02] MEDS: ACIDOPHILUS/BULGARICUS CHEW TAB GT SCH ×2 (09:06→21:01)
[2022-11-02] MEDS: OMEGA-3 FATTY ACIDS/FISH OIL CAPSULE GT SCH (09:06)
[2022-11-02] MEDS: POLYVINYL ALCOHOL OPHT DROPS 15 ML BOTTLE EACHEYE SCH ×3 (09:06→18:00)
[2022-11-02] MEDS: DOCUSATE SODIUM 100 MG/10 ML LIQUID UDC GT SCH (09:06)
[2022-11-02] MEDS: MIRALAX 17 GM POWD.PACK GT SCH (09:07)
[2022-11-02] MEDS: POTASSIUM CHLORIDE 40 MEQ/30 ML LIQUID UDC GT SCH (09:07)
[2022-11-02] MEDS: ESCITALOPRAM 5 MG GT SCH (09:07)
[2022-11-02] MEDS: REMEDY ESSENTIAL ZINC PASTE 113 GM TP SCH ×2 (09:08→21:08)
[2022-11-02 09:34] VITALS: O2SAT 98
[2022-11-02 09:42] VITALS: TEMP 97.3
[2022-11-02 20:30] VITALS: TEMP 98
[2022-11-02 20:50] VITALS: O2SAT 99
[2022-11-02] MEDS: MELATONIN 3MG TABLET GT SCH (21:01)
[2022-11-02] MEDS: CRANBERRY 500 MG GT SCH (21:01)
[2022-11-02] MEDS: PROTEIN SUPPLEMENT (PROSTAT) 30 ML LIQUID GT SCH (21:02)
[2022-11-02] MEDS: NUTRISOURCE FIBER 4 GM PACKET GT SCH (21:02)
[2022-11-02] MEDS: MAGNESIUM COMPLEX GT SCH (21:02)
[2022-11-02] MEDS: RIVAROXABAN 15 MG TABLET GT SCH (21:07)
[2022-11-03] MEDS: MULTIVIT, IRON, MIN NO. 8, FA TABLET GT SCH (05:28)
[2022-11-03] MEDS: OMEPRAZOLE 20 MG CAPSULE.DR GT SCH (05:28)
[2022-11-03] MEDS: BACLOFEN 10 MG TABLET GT SCH ×3 (05:28→18:07)
[2022-11-03 07:12] VITALS: TEMP 97.8
[2022-11-03 07:43] VITALS: O2SAT 98
[2022-11-03] MEDS: POLYVINYL ALCOHOL OPHT DROPS 15 ML BOTTLE EACHEYE SCH ×3 (08:51→16:55)
[2022-11-03] MEDS: OMEGA-3 FATTY ACIDS/FISH OIL CAPSULE GT SCH (08:52)
[2022-11-03] MEDS: DOCUSATE SODIUM 100 MG/10 ML LIQUID UDC GT SCH (08:52)
[2022-11-03] MEDS: busPIRone 10 MG TABLET GT SCH ×3 (08:52→16:54)
[2022-11-03] MEDS: MIRALAX 17 GM POWD.PACK GT SCH (08:53)
[2022-11-03] MEDS: ACIDOPHILUS/BULGARICUS CHEW TAB GT SCH ×2 (08:53→21:53)
[2022-11-03] MEDS: levETIRAcetam 500 MG/5 ML LIQUID UDC GT SCH ×2 (08:53→21:53)
[2022-11-03] MEDS: ESCITALOPRAM 5 MG GT SCH (08:56)
[2022-11-03] MEDS: VALPROIC ACID 250 MG/5 ML LIQUID UDC GT SCH ×3 (08:57→21:53)
[2022-11-03] MEDS: REMEDY ESSENTIAL ZINC PASTE 113 GM TP SCH ×2 (08:58→21:54)
[2022-11-03] MEDS: COAL TAR TOP SCH (08:58)
[2022-11-03] MEDS: POTASSIUM CHLORIDE 40 MEQ/30 ML LIQUID UDC GT SCH (08:58)
[2022-11-03] MEDS: HYDROGEN PEROXIDE 3% 118 ML BOTTLE TP SCH ×2 (09:17→20:40)
[2022-11-03] MEDS: ACETAMINOPHEN 650 MG/20 ML UDC- SA PATIENTS-PAIN ONLY GT PRN (16:00)
[2022-11-03 20:15] VITALS: TEMP 98.2
[2022-11-03 20:41] VITALS: O2SAT 99
[2022-11-03] MEDS: MAGNESIUM COMPLEX GT SCH (21:53)
[2022-11-03] MEDS: CRANBERRY 500 MG GT SCH (21:53)
[2022-11-03] MEDS: PROTEIN SUPPLEMENT (PROSTAT) 30 ML LIQUID GT SCH (21:53)
[2022-11-03] MEDS: MELATONIN 3MG TABLET GT SCH (21:53)
[2022-11-03] MEDS: NUTRISOURCE FIBER 4 GM PACKET GT SCH (21:53)
[2022-11-03] MEDS: RIVAROXABAN 15 MG TABLET GT SCH (21:54)
[2022-11-03] MEDS: TWOCAL HN 1,000 ML LIQUID GT PRN (22:42)
[2022-11-04] MEDS: BACLOFEN 10 MG TABLET GT SCH ×4 (00:24→17:04)
[2022-11-04] MEDS: OMEPRAZOLE 20 MG CAPSULE.DR GT SCH (05:14)
[2022-11-04] MEDS: MULTIVIT, IRON, MIN NO. 8, FA TABLET GT SCH (05:14)
[2022-11-04 07:35] VITALS: TEMP 97.8
[2022-11-04] MEDS: HYDROGEN PEROXIDE 3% 118 ML BOTTLE TP SCH ×2 (08:11→19:19)
[2022-11-04] MEDS: busPIRone 10 MG TABLET GT SCH ×3 (08:35→16:55)
[2022-11-04] MEDS: POLYVINYL ALCOHOL OPHT DROPS 15 ML BOTTLE EACHEYE SCH ×3 (08:35→16:55)
[2022-11-04] MEDS: VALPROIC ACID 250 MG/5 ML LIQUID UDC GT SCH ×3 (08:35→20:32)
[2022-11-04] MEDS: DOCUSATE SODIUM 100 MG/10 ML LIQUID UDC GT SCH (08:37)
[2022-11-04] MEDS: MIRALAX 17 GM POWD.PACK GT SCH (08:37)
[2022-11-04] MEDS: OMEGA-3 FATTY ACIDS/FISH OIL CAPSULE GT SCH (08:37)
[2022-11-04] MEDS: levETIRAcetam 500 MG/5 ML LIQUID UDC GT SCH ×2 (08:37→20:32)
[2022-11-04] MEDS: ACIDOPHILUS/BULGARICUS CHEW TAB GT SCH ×2 (08:37→20:32)
[2022-11-04] MEDS: ESCITALOPRAM 5 MG GT SCH (08:38)
[2022-11-04] MEDS: POTASSIUM CHLORIDE 40 MEQ/30 ML LIQUID UDC GT SCH (08:38)
[2022-11-04] MEDS: REMEDY ESSENTIAL ZINC PASTE 113 GM TP SCH ×2 (08:38→20:33)
[2022-11-04 12:33] VITALS: O2SAT 98
[2022-11-04 19:50] VITALS: O2SAT 99
[2022-11-04 20:00] VITALS: TEMP 98
[2022-11-04] MEDS: CRANBERRY 500 MG GT SCH (20:32)
[2022-11-04] MEDS: PROTEIN SUPPLEMENT (PROSTAT) 30 ML LIQUID GT SCH (20:32)
[2022-11-04] MEDS: NUTRISOURCE FIBER 4 GM PACKET GT SCH (20:32)
[2022-11-04] MEDS: MELATONIN 3MG TABLET GT SCH (20:32)
[2022-11-04] MEDS: MAGNESIUM COMPLEX GT SCH (20:32)
[2022-11-04] MEDS: RIVAROXABAN 15 MG TABLET GT SCH (20:33)
[2022-11-05] MEDS: BACLOFEN 10 MG TABLET GT SCH ×5 (05:24→23:47)
[2022-11-05] MEDS: OMEPRAZOLE 20 MG CAPSULE.DR GT SCH (05:24)
[2022-11-05] MEDS: MULTIVIT, IRON, MIN NO. 8, FA TABLET GT SCH (05:25)
[2022-11-05] MEDS: HYDROGEN PEROXIDE 3% 118 ML BOTTLE TP SCH ×2 (07:55→19:16)
[2022-11-05 07:56] VITALS: O2SAT 98
[2022-11-05] MEDS: VALPROIC ACID 250 MG/5 ML LIQUID UDC GT SCH ×3 (08:00→21:00)
[2022-11-05 08:03] VITALS: TEMP 97.6
[2022-11-05] MEDS: REMEDY ESSENTIAL ZINC PASTE 113 GM TP SCH ×2 (09:04→21:00)
[2022-11-05] MEDS: MIRALAX 17 GM POWD.PACK GT SCH (09:04)
[2022-11-05] MEDS: OMEGA-3 FATTY ACIDS/FISH OIL CAPSULE GT SCH (09:04)
[2022-11-05] MEDS: DOCUSATE SODIUM 100 MG/10 ML LIQUID UDC GT SCH (09:04)
[2022-11-05] MEDS: ACIDOPHILUS/BULGARICUS CHEW TAB GT SCH ×2 (09:04→21:00)
[2022-11-05] MEDS: busPIRone 10 MG TABLET GT SCH ×3 (09:04→17:00)
[2022-11-05] MEDS: POTASSIUM CHLORIDE 40 MEQ/30 ML LIQUID UDC GT SCH (09:04)
[2022-11-05] MEDS: levETIRAcetam 500 MG/5 ML LIQUID UDC GT SCH ×2 (09:04→21:00)
[2022-11-05] MEDS: POLYVINYL ALCOHOL OPHT DROPS 15 ML BOTTLE EACHEYE SCH ×3 (09:04→17:00)
[2022-11-05] MEDS: ESCITALOPRAM 5 MG GT SCH (09:04)
[2022-11-05 19:55] VITALS: O2SAT 99
[2022-11-05 20:00] VITALS: TEMP 98.3
[2022-11-05] MEDS: RIVAROXABAN 15 MG TABLET GT SCH (21:00)
[2022-11-05] MEDS: MAGNESIUM COMPLEX GT SCH (21:00)
[2022-11-05] MEDS: NUTRISOURCE FIBER 4 GM PACKET GT SCH (21:00)
[2022-11-05] MEDS: PROTEIN SUPPLEMENT (PROSTAT) 30 ML LIQUID GT SCH (21:00)
[2022-11-05] MEDS: MELATONIN 3MG TABLET GT SCH (21:00)
[2022-11-05] MEDS: CRANBERRY 500 MG GT SCH (21:00)
[2022-11-06] MEDS: TWOCAL HN 1,000 ML LIQUID GT PRN (01:23)
[2022-11-06] MEDS: OMEPRAZOLE 20 MG CAPSULE.DR GT SCH (05:36)
[2022-11-06] MEDS: BACLOFEN 10 MG TABLET GT SCH ×3 (05:36→17:17)
[2022-11-06] MEDS: MULTIVIT, IRON, MIN NO. 8, FA TABLET GT SCH (05:36)
[2022-11-06 07:23] VITALS: TEMP 97.2
[2022-11-06] MEDS: HYDROGEN PEROXIDE 3% 118 ML BOTTLE TP SCH ×2 (07:53→19:19)
[2022-11-06 07:54] VITALS: O2SAT 98
[2022-11-06] MEDS: VALPROIC ACID 250 MG/5 ML LIQUID UDC GT SCH ×3 (08:00→21:14)
[2022-11-06] MEDS: DOCUSATE SODIUM 100 MG/10 ML LIQUID UDC GT SCH (09:07)
[2022-11-06] MEDS: busPIRone 10 MG TABLET GT SCH ×3 (09:07→17:16)
[2022-11-06] MEDS: POLYVINYL ALCOHOL OPHT DROPS 15 ML BOTTLE EACHEYE SCH ×3 (09:07→17:16)
[2022-11-06] MEDS: OMEGA-3 FATTY ACIDS/FISH OIL CAPSULE GT SCH (09:08)
[2022-11-06] MEDS: ACIDOPHILUS/BULGARICUS CHEW TAB GT SCH ×2 (09:08→21:14)
[2022-11-06] MEDS: levETIRAcetam 500 MG/5 ML LIQUID UDC GT SCH ×2 (09:09→21:15)
[2022-11-06] MEDS: ESCITALOPRAM 5 MG GT SCH (09:09)
[2022-11-06] MEDS: MIRALAX 17 GM POWD.PACK GT SCH (09:09)
[2022-11-06] MEDS: REMEDY ESSENTIAL ZINC PASTE 113 GM TP SCH ×2 (09:10→21:18)
[2022-11-06] MEDS: COAL TAR TOP SCH (09:10)
[2022-11-06] MEDS: POTASSIUM CHLORIDE 40 MEQ/30 ML LIQUID UDC GT SCH (09:10)
[2022-11-06 20:00] VITALS: TEMP 98.2
[2022-11-06 20:30] VITALS: O2SAT 99
[2022-11-06] MEDS: RIVAROXABAN 15 MG TABLET GT SCH (21:00)
[2022-11-06] MEDS: MELATONIN 3MG TABLET GT SCH (21:15)
[2022-11-06] MEDS: MAGNESIUM COMPLEX GT SCH (21:15)
[2022-11-06] MEDS: CRANBERRY 500 MG GT SCH (21:15)
[2022-11-06] MEDS: NUTRISOURCE FIBER 4 GM PACKET GT SCH (21:16)
[2022-11-06] MEDS: PROTEIN SUPPLEMENT (PROSTAT) 30 ML LIQUID GT SCH (21:17)
[2022-11-07] MEDS: BACLOFEN 10 MG TABLET GT SCH ×4 (00:40→17:44)
[2022-11-07] MEDS: MULTIVIT, IRON, MIN NO. 8, FA TABLET GT SCH (05:19)
[2022-11-07] MEDS: OMEPRAZOLE 20 MG CAPSULE.DR GT SCH (05:19)
[2022-11-07 07:39] VITALS: TEMP 98.2
[2022-11-07] MEDS: DOCUSATE SODIUM 100 MG/10 ML LIQUID UDC GT SCH (08:47)
[2022-11-07] MEDS: busPIRone 10 MG TABLET GT SCH ×3 (08:47→16:33)
[2022-11-07] MEDS: POLYVINYL ALCOHOL OPHT DROPS 15 ML BOTTLE EACHEYE SCH ×3 (08:47→16:33)
[2022-11-07] MEDS: OMEGA-3 FATTY ACIDS/FISH OIL CAPSULE GT SCH (08:47)
[2022-11-07] MEDS: VALPROIC ACID 250 MG/5 ML LIQUID UDC GT SCH ×3 (08:47→21:27)
[2022-11-07] MEDS: ACIDOPHILUS/BULGARICUS CHEW TAB GT SCH ×2 (08:47→21:07)
[2022-11-07] MEDS: POTASSIUM CHLORIDE 40 MEQ/30 ML LIQUID UDC GT SCH (08:49)
[2022-11-07] MEDS: MIRALAX 17 GM POWD.PACK GT SCH (08:49)
[2022-11-07] MEDS: levETIRAcetam 500 MG/5 ML LIQUID UDC GT SCH ×2 (08:49→21:27)
[2022-11-07] MEDS: ESCITALOPRAM 5 MG GT SCH (08:49)
[2022-11-07] MEDS: REMEDY ESSENTIAL ZINC PASTE 113 GM TP SCH ×2 (08:49→21:08)
[2022-11-07] MEDS: HYDROGEN PEROXIDE 3% 118 ML BOTTLE TP SCH ×2 (09:00→19:27)
[2022-11-07 12:08] VITALS: O2SAT 98
[2022-11-07] MEDS: TWOCAL HN 1,000 ML LIQUID GT PRN (17:46)
[2022-11-07 20:00] VITALS: TEMP 99.2
[2022-11-07] MEDS: NUTRISOURCE FIBER 4 GM PACKET GT SCH (21:08)
[2022-11-07] MEDS: PROTEIN SUPPLEMENT (PROSTAT) 30 ML LIQUID GT SCH (21:08)
[2022-11-07] MEDS: MAGNESIUM COMPLEX GT SCH (21:09)
[2022-11-07] MEDS: RIVAROXABAN 15 MG TABLET GT SCH (21:12)
[2022-11-07] MEDS: CRANBERRY 500 MG GT SCH (21:15)
[2022-11-07] MEDS: MELATONIN 3MG TABLET GT SCH (21:28)
[2022-11-07 22:30] VITALS: O2SAT 99
[2022-11-08] MEDS: OMEPRAZOLE 20 MG CAPSULE.DR GT SCH (06:00)
[2022-11-08] MEDS: MULTIVIT, IRON, MIN NO. 8, FA TABLET GT SCH (06:00)
[2022-11-08] MEDS: BACLOFEN 10 MG TABLET GT SCH ×4 (06:00→17:32)
[2022-11-08 07:09] VITALS: O2SAT 98
[2022-11-08] MEDS: HYDROGEN PEROXIDE 3% 118 ML BOTTLE TP SCH ×2 (07:43→19:25)
[2022-11-08 08:06] VITALS: TEMP 97
[2022-11-08] MEDS: VALPROIC ACID 250 MG/5 ML LIQUID UDC GT SCH ×3 (08:55→20:23)
[2022-11-08] MEDS: busPIRone 10 MG TABLET GT SCH ×3 (08:55→16:28)
[2022-11-08] MEDS: POLYVINYL ALCOHOL OPHT DROPS 15 ML BOTTLE EACHEYE SCH ×3 (08:55→16:28)
[2022-11-08] MEDS: DOCUSATE SODIUM 100 MG/10 ML LIQUID UDC GT SCH (08:55)
[2022-11-08] MEDS: ACIDOPHILUS/BULGARICUS CHEW TAB GT SCH ×2 (08:56→20:23)
[2022-11-08] MEDS: OMEGA-3 FATTY ACIDS/FISH OIL CAPSULE GT SCH (08:56)
[2022-11-08] MEDS: levETIRAcetam 500 MG/5 ML LIQUID UDC GT SCH ×2 (08:57→20:27)
[2022-11-08] MEDS: MIRALAX 17 GM POWD.PACK GT SCH (08:57)
[2022-11-08] MEDS: POTASSIUM CHLORIDE 40 MEQ/30 ML LIQUID UDC GT SCH (08:57)
[2022-11-08] MEDS: ESCITALOPRAM 5 MG GT SCH (08:57)
[2022-11-08] MEDS: REMEDY ESSENTIAL ZINC PASTE 113 GM TP SCH ×2 (08:58→20:29)
[2022-11-08] MEDS: MELATONIN 3MG TABLET GT SCH (20:24)
[2022-11-08] MEDS: CRANBERRY 500 MG GT SCH (20:27)
[2022-11-08] MEDS: MAGNESIUM COMPLEX GT SCH (20:27)
[2022-11-08] MEDS: RIVAROXABAN 15 MG TABLET GT SCH (20:28)
[2022-11-08] MEDS: NUTRISOURCE FIBER 4 GM PACKET GT SCH (20:28)
[2022-11-08] MEDS: PROTEIN SUPPLEMENT (PROSTAT) 30 ML LIQUID GT SCH (20:28)
[2022-11-08 20:38] VITALS: TEMP 98.1
[2022-11-08 20:51] VITALS: O2SAT 99
[2022-11-09] MEDS: BACLOFEN 10 MG TABLET GT SCH ×4 (00:40→17:58)
[2022-11-09] MEDS: MULTIVIT, IRON, MIN NO. 8, FA TABLET GT SCH (06:39)
[2022-11-09] MEDS: OMEPRAZOLE 20 MG CAPSULE.DR GT SCH (06:39)
[2022-11-09 07:51] VITALS: TEMP 97.6
[2022-11-09] MEDS: VALPROIC ACID 250 MG/5 ML LIQUID UDC GT SCH ×3 (08:00→21:00)
[2022-11-09] MEDS: OMEGA-3 FATTY ACIDS/FISH OIL CAPSULE GT SCH (09:00)
[2022-11-09] MEDS: POLYVINYL ALCOHOL OPHT DROPS 15 ML BOTTLE EACHEYE SCH ×3 (09:00→17:58)
[2022-11-09] MEDS: levETIRAcetam 500 MG/5 ML LIQUID UDC GT SCH ×2 (09:00→21:00)
[2022-11-09] MEDS: REMEDY ESSENTIAL ZINC PASTE 113 GM TP SCH ×2 (09:00→21:00)
[2022-11-09] MEDS: MIRALAX 17 GM POWD.PACK GT SCH (09:00)
[2022-11-09] MEDS: ESCITALOPRAM 5 MG GT SCH (09:00)
[2022-11-09] MEDS: POTASSIUM CHLORIDE 40 MEQ/30 ML LIQUID UDC GT SCH (09:00)
[2022-11-09] MEDS: busPIRone 10 MG TABLET GT SCH ×3 (09:00→17:58)
[2022-11-09] MEDS: ACIDOPHILUS/BULGARICUS CHEW TAB GT SCH ×2 (09:00→21:00)
[2022-11-09] MEDS: DOCUSATE SODIUM 100 MG/10 ML LIQUID UDC GT SCH (09:00)
[2022-11-09] MEDS: HYDROGEN PEROXIDE 3% 118 ML BOTTLE TP SCH ×2 (09:23→21:08)
[2022-11-09 10:18] VITALS: O2SAT 98
[2022-11-09 20:35] VITALS: TEMP 97.8
[2022-11-09] MEDS: PROTEIN SUPPLEMENT (PROSTAT) 30 ML LIQUID GT SCH (21:00)
[2022-11-09] MEDS: RIVAROXABAN 15 MG TABLET GT SCH (21:00)
[2022-11-09] MEDS: CRANBERRY 500 MG GT SCH (21:00)
[2022-11-09] MEDS: MELATONIN 3MG TABLET GT SCH (21:00)
[2022-11-09] MEDS: NUTRISOURCE FIBER 4 GM PACKET GT SCH (21:00)
[2022-11-09] MEDS: MAGNESIUM COMPLEX GT SCH (21:00)
[2022-11-09 21:08] VITALS: O2SAT 99
[2022-11-10] MEDS: BACLOFEN 10 MG TABLET GT SCH ×5 (00:24→23:43)
[2022-11-10] MEDS: TWOCAL HN 1,000 ML LIQUID GT PRN (02:00)
[2022-11-10] MEDS: MULTIVIT, IRON, MIN NO. 8, FA TABLET GT SCH (06:54)
[2022-11-10] MEDS: OMEPRAZOLE 20 MG CAPSULE.DR GT SCH (06:54)
[2022-11-10 07:13] VITALS: TEMP 97.5
[2022-11-10] MEDS: HYDROGEN PEROXIDE 3% 118 ML BOTTLE TP SCH ×2 (07:24→19:26)
[2022-11-10] MEDS: POLYVINYL ALCOHOL OPHT DROPS 15 ML BOTTLE EACHEYE SCH ×3 (08:36→17:18)
[2022-11-10] MEDS: VALPROIC ACID 250 MG/5 ML LIQUID UDC GT SCH ×3 (08:36→20:54)
[2022-11-10] MEDS: busPIRone 10 MG TABLET GT SCH ×3 (08:37→17:18)
[2022-11-10] MEDS: DOCUSATE SODIUM 100 MG/10 ML LIQUID UDC GT SCH (08:39)
[2022-11-10] MEDS: ACIDOPHILUS/BULGARICUS CHEW TAB GT SCH ×2 (08:40→20:54)
[2022-11-10] MEDS: POTASSIUM CHLORIDE 40 MEQ/30 ML LIQUID UDC GT SCH (08:40)
[2022-11-10] MEDS: ESCITALOPRAM 5 MG GT SCH (08:40)
[2022-11-10] MEDS: levETIRAcetam 500 MG/5 ML LIQUID UDC GT SCH ×2 (08:40→20:54)
[2022-11-10] MEDS: REMEDY ESSENTIAL ZINC PASTE 113 GM TP SCH ×2 (08:40→20:56)
[2022-11-10] MEDS: OMEGA-3 FATTY ACIDS/FISH OIL CAPSULE GT SCH (08:40)
[2022-11-10] MEDS: COAL TAR TOP SCH (08:40)
[2022-11-10] MEDS: MIRALAX 17 GM POWD.PACK GT SCH (08:40)
[2022-11-10 10:20] VITALS: O2SAT 99
[2022-11-10 19:25] VITALS: O2SAT 99
[2022-11-10 20:00] VITALS: TEMP 98.6
[2022-11-10] MEDS: MELATONIN 3MG TABLET GT SCH (20:54)
[2022-11-10] MEDS: NUTRISOURCE FIBER 4 GM PACKET GT SCH (20:54)
[2022-11-10] MEDS: MAGNESIUM COMPLEX GT SCH (20:54)
[2022-11-10] MEDS: CRANBERRY 500 MG GT SCH (20:54)
[2022-11-10] MEDS: PROTEIN SUPPLEMENT (PROSTAT) 30 ML LIQUID GT SCH (20:56)
[2022-11-10] MEDS: RIVAROXABAN 15 MG TABLET GT SCH (20:57)
[2022-11-11] MEDS: BACLOFEN 10 MG TABLET GT SCH ×3 (05:05→17:54)
[2022-11-11] MEDS: MULTIVIT, IRON, MIN NO. 8, FA TABLET GT SCH (05:05)
[2022-11-11] MEDS: OMEPRAZOLE 20 MG CAPSULE.DR GT SCH (05:06)
[2022-11-11] MEDS: HYDROGEN PEROXIDE 3% 118 ML BOTTLE TP SCH ×2 (07:50→19:11)
[2022-11-11 07:53] VITALS: O2SAT 98
[2022-11-11] MEDS: VALPROIC ACID 250 MG/5 ML LIQUID UDC GT SCH ×3 (08:00→21:00)
[2022-11-11] MEDS: REMEDY ESSENTIAL ZINC PASTE 113 GM TP SCH ×2 (09:00→21:00)
[2022-11-11] MEDS: POTASSIUM CHLORIDE 40 MEQ/30 ML LIQUID UDC GT SCH (09:00)
[2022-11-11] MEDS: POLYVINYL ALCOHOL OPHT DROPS 15 ML BOTTLE EACHEYE SCH ×3 (09:00→17:51)
[2022-11-11] MEDS: OMEGA-3 FATTY ACIDS/FISH OIL CAPSULE GT SCH (09:00)
[2022-11-11] MEDS: ESCITALOPRAM 5 MG GT SCH (09:00)
[2022-11-11] MEDS: busPIRone 10 MG TABLET GT SCH ×3 (09:00→17:52)
[2022-11-11] MEDS: DOCUSATE SODIUM 100 MG/10 ML LIQUID UDC GT SCH (09:00)
[2022-11-11] MEDS: ACIDOPHILUS/BULGARICUS CHEW TAB GT SCH ×2 (09:00→21:00)
[2022-11-11] MEDS: levETIRAcetam 500 MG/5 ML LIQUID UDC GT SCH ×2 (09:00→21:00)
[2022-11-11] MEDS: MIRALAX 17 GM POWD.PACK GT SCH (09:00)
[2022-11-11 11:33] VITALS: TEMP 97.9
[2022-11-11] MEDS: TWOCAL HN 1,000 ML LIQUID GT PRN (18:24)
[2022-11-11 20:00] VITALS: TEMP 98.8
[2022-11-11] MEDS: NUTRISOURCE FIBER 4 GM PACKET GT SCH (21:00)
[2022-11-11] MEDS: CRANBERRY 500 MG GT SCH (21:00)
[2022-11-11] MEDS: PROTEIN SUPPLEMENT (PROSTAT) 30 ML LIQUID GT SCH (21:00)
[2022-11-11] MEDS: MELATONIN 3MG TABLET GT SCH (21:00)
[2022-11-11] MEDS: RIVAROXABAN 15 MG TABLET GT SCH (21:00)
[2022-11-11] MEDS: MAGNESIUM COMPLEX GT SCH (21:00)
[2022-11-11 22:05] VITALS: O2SAT 98
[2022-11-12] MEDS: BACLOFEN 10 MG TABLET GT SCH ×5 (00:27→23:28)
[2022-11-12] MEDS: OMEPRAZOLE 20 MG CAPSULE.DR GT SCH (05:18)
[2022-11-12] MEDS: MULTIVIT, IRON, MIN NO. 8, FA TABLET GT SCH (05:18)
[2022-11-12] MEDS: HYDROGEN PEROXIDE 3% 118 ML BOTTLE TP SCH ×2 (08:04→21:24)
[2022-11-12 08:40] VITALS: TEMP 97.7
[2022-11-12] MEDS: REMEDY ESSENTIAL ZINC PASTE 113 GM TP SCH ×2 (08:55→21:25)
[2022-11-12] MEDS: ESCITALOPRAM 5 MG GT SCH (08:55)
[2022-11-12] MEDS: busPIRone 10 MG TABLET GT SCH ×3 (08:55→17:14)
[2022-11-12] MEDS: ACIDOPHILUS/BULGARICUS CHEW TAB GT SCH ×2 (08:55→21:25)
[2022-11-12] MEDS: MIRALAX 17 GM POWD.PACK GT SCH (08:55)
[2022-11-12] MEDS: OMEGA-3 FATTY ACIDS/FISH OIL CAPSULE GT SCH (08:55)
[2022-11-12] MEDS: DOCUSATE SODIUM 100 MG/10 ML LIQUID UDC GT SCH (08:55)
[2022-11-12] MEDS: VALPROIC ACID 250 MG/5 ML LIQUID UDC GT SCH ×3 (08:55→21:25)
[2022-11-12] MEDS: POTASSIUM CHLORIDE 40 MEQ/30 ML LIQUID UDC GT SCH (08:55)
[2022-11-12] MEDS: POLYVINYL ALCOHOL OPHT DROPS 15 ML BOTTLE EACHEYE SCH ×3 (08:55→17:13)
[2022-11-12] MEDS: levETIRAcetam 500 MG/5 ML LIQUID UDC GT SCH ×2 (08:55→21:25)
[2022-11-12 12:35] VITALS: O2SAT 98
[2022-11-12 20:00] VITALS: TEMP 98.4; O2SAT 99
[2022-11-12] MEDS: RIVAROXABAN 15 MG TABLET GT SCH (21:00)
[2022-11-12] MEDS: CRANBERRY 500 MG GT SCH (21:25)
[2022-11-12] MEDS: MAGNESIUM COMPLEX GT SCH (21:25)
[2022-11-12] MEDS: PROTEIN SUPPLEMENT (PROSTAT) 30 ML LIQUID GT SCH (21:25)
[2022-11-12] MEDS: NUTRISOURCE FIBER 4 GM PACKET GT SCH (21:25)
[2022-11-12] MEDS: MELATONIN 3MG TABLET GT SCH (21:25)
[2022-11-13] MEDS: OMEPRAZOLE 20 MG CAPSULE.DR GT SCH (05:27)
[2022-11-13] MEDS: MULTIVIT, IRON, MIN NO. 8, FA TABLET GT SCH (05:27)
[2022-11-13] MEDS: BACLOFEN 10 MG TABLET GT SCH ×3 (05:27→17:08)
[2022-11-13 07:30] VITALS: TEMP 97.5
[2022-11-13] MEDS: VALPROIC ACID 250 MG/5 ML LIQUID UDC GT SCH ×3 (08:00→20:58)
[2022-11-13] MEDS: HYDROGEN PEROXIDE 3% 118 ML BOTTLE TP SCH ×2 (08:26→20:58)
[2022-11-13] MEDS: POLYVINYL ALCOHOL OPHT DROPS 15 ML BOTTLE EACHEYE SCH ×3 (09:37→17:08)
[2022-11-13] MEDS: OMEGA-3 FATTY ACIDS/FISH OIL CAPSULE GT SCH (09:37)
[2022-11-13] MEDS: DOCUSATE SODIUM 100 MG/10 ML LIQUID UDC GT SCH (09:37)
[2022-11-13] MEDS: busPIRone 10 MG TABLET GT SCH ×3 (09:37→17:08)
[2022-11-13] MEDS: ACIDOPHILUS/BULGARICUS CHEW TAB GT SCH ×2 (09:38→20:58)
[2022-11-13] MEDS: levETIRAcetam 500 MG/5 ML LIQUID UDC GT SCH ×2 (09:38→20:58)
[2022-11-13] MEDS: COAL TAR TOP SCH (09:39)
[2022-11-13] MEDS: MIRALAX 17 GM POWD.PACK GT SCH (09:39)
[2022-11-13] MEDS: ESCITALOPRAM 5 MG GT SCH (09:39)
[2022-11-13] MEDS: REMEDY ESSENTIAL ZINC PASTE 113 GM TP SCH ×2 (09:39→20:58)
[2022-11-13] MEDS: POTASSIUM CHLORIDE 40 MEQ/30 ML LIQUID UDC GT SCH (09:39)
[2022-11-13 10:40] VITALS: O2SAT 99
[2022-11-13 20:00] VITALS: TEMP 97.9
[2022-11-13 20:55] VITALS: O2SAT 98
[2022-11-13] MEDS: MELATONIN 3MG TABLET GT SCH (20:58)
[2022-11-13] MEDS: CRANBERRY 500 MG GT SCH (20:58)
[2022-11-13] MEDS: PROTEIN SUPPLEMENT (PROSTAT) 30 ML LIQUID GT SCH (20:58)
[2022-11-13] MEDS: NUTRISOURCE FIBER 4 GM PACKET GT SCH (20:58)
[2022-11-13] MEDS: MAGNESIUM COMPLEX GT SCH (20:58)
[2022-11-13] MEDS: RIVAROXABAN 15 MG TABLET GT SCH (21:00)
[2022-11-13] MEDS: TWOCAL HN 1,000 ML LIQUID GT PRN (22:21)
[2022-11-14] MEDS: BACLOFEN 10 MG TABLET GT SCH ×5 (05:05→23:06)
[2022-11-14] MEDS: OMEPRAZOLE 20 MG CAPSULE.DR GT SCH (05:05)
[2022-11-14] MEDS: MULTIVIT, IRON, MIN NO. 8, FA TABLET GT SCH (05:05)
[2022-11-14 08:00] VITALS: TEMP 98
[2022-11-14 08:30] VITALS: O2SAT 98
[2022-11-14] MEDS: VALPROIC ACID 250 MG/5 ML LIQUID UDC GT SCH ×3 (08:53→20:31)
[2022-11-14] MEDS: POLYVINYL ALCOHOL OPHT DROPS 15 ML BOTTLE EACHEYE SCH ×3 (08:53→17:05)
[2022-11-14] MEDS: busPIRone 10 MG TABLET GT SCH ×3 (08:54→17:05)
[2022-11-14] MEDS: DOCUSATE SODIUM 100 MG/10 ML LIQUID UDC GT SCH (08:54)
[2022-11-14] MEDS: MIRALAX 17 GM POWD.PACK GT SCH (08:55)
[2022-11-14] MEDS: OMEGA-3 FATTY ACIDS/FISH OIL CAPSULE GT SCH (08:55)
[2022-11-14] MEDS: POTASSIUM CHLORIDE 40 MEQ/30 ML LIQUID UDC GT SCH (08:55)
[2022-11-14] MEDS: ESCITALOPRAM 5 MG GT SCH (08:55)
[2022-11-14] MEDS: ACIDOPHILUS/BULGARICUS CHEW TAB GT SCH ×2 (08:55→20:31)
[2022-11-14] MEDS: levETIRAcetam 500 MG/5 ML LIQUID UDC GT SCH ×2 (08:55→20:31)
[2022-11-14] MEDS: HYDROGEN PEROXIDE 3% 118 ML BOTTLE TP SCH ×2 (09:00→22:03)
[2022-11-14] MEDS: REMEDY ESSENTIAL ZINC PASTE 113 GM TP SCH ×2 (09:04→20:31)
[2022-11-14 15:13] VITALS: O2SAT 98
[2022-11-14 20:00] VITALS: TEMP 98.5
[2022-11-14 20:05] VITALS: O2SAT 98
[2022-11-14] MEDS: PROTEIN SUPPLEMENT (PROSTAT) 30 ML LIQUID GT SCH (20:31)
[2022-11-14] MEDS: NUTRISOURCE FIBER 4 GM PACKET GT SCH (20:31)
[2022-11-14] MEDS: MAGNESIUM COMPLEX GT SCH (20:31)
[2022-11-14] MEDS: CRANBERRY 500 MG GT SCH (20:31)
[2022-11-14] MEDS: MELATONIN 3MG TABLET GT SCH (20:31)
[2022-11-14] MEDS: RIVAROXABAN 15 MG TABLET GT SCH (21:00)
[2022-11-15 03:56] VITALS: O2SAT 98
[2022-11-15] MEDS: OMEPRAZOLE 20 MG CAPSULE.DR GT SCH (05:31)
[2022-11-15] MEDS: MULTIVIT, IRON, MIN NO. 8, FA TABLET GT SCH (05:31)
[2022-11-15] MEDS: BACLOFEN 10 MG TABLET GT SCH ×3 (05:31→17:00)
[2022-11-15 06:17] VITALS: O2SAT 98
[2022-11-15] MEDS: HYDROGEN PEROXIDE 3% 118 ML BOTTLE TP SCH ×2 (07:45→20:57)
[2022-11-15] MEDS: VALPROIC ACID 250 MG/5 ML LIQUID UDC GT SCH ×3 (08:00→21:10)
[2022-11-15 08:01] VITALS: TEMP 98.8
[2022-11-15] MEDS: POLYVINYL ALCOHOL OPHT DROPS 15 ML BOTTLE EACHEYE SCH ×3 (09:50→16:44)
[2022-11-15] MEDS: busPIRone 10 MG TABLET GT SCH ×3 (09:51→16:45)
[2022-11-15] MEDS: DOCUSATE SODIUM 100 MG/10 ML LIQUID UDC GT SCH (09:51)
[2022-11-15] MEDS: OMEGA-3 FATTY ACIDS/FISH OIL CAPSULE GT SCH (09:52)
[2022-11-15] MEDS: MIRALAX 17 GM POWD.PACK GT SCH (09:52)
[2022-11-15] MEDS: ACIDOPHILUS/BULGARICUS CHEW TAB GT SCH ×2 (09:52→21:10)
[2022-11-15] MEDS: levETIRAcetam 500 MG/5 ML LIQUID UDC GT SCH ×2 (09:52→21:10)
[2022-11-15] MEDS: POTASSIUM CHLORIDE 40 MEQ/30 ML LIQUID UDC GT SCH (09:53)
[2022-11-15] MEDS: ESCITALOPRAM 5 MG GT SCH (09:53)
[2022-11-15] MEDS: REMEDY ESSENTIAL ZINC PASTE 113 GM TP SCH ×2 (09:53→21:10)
[2022-11-15 10:35] VITALS: O2SAT 98
[2022-11-15 20:55] VITALS: O2SAT 98
[2022-11-15] MEDS: MAGNESIUM COMPLEX GT SCH (21:10)
[2022-11-15] MEDS: CRANBERRY 500 MG GT SCH (21:10)
[2022-11-15] MEDS: NUTRISOURCE FIBER 4 GM PACKET GT SCH (21:10)
[2022-11-15] MEDS: PROTEIN SUPPLEMENT (PROSTAT) 30 ML LIQUID GT SCH (21:10)
[2022-11-15] MEDS: MELATONIN 3MG TABLET GT SCH (21:10)
[2022-11-15] MEDS: RIVAROXABAN 15 MG TABLET GT SCH (21:13)
[2022-11-16] MEDS: OMEPRAZOLE 20 MG CAPSULE.DR GT SCH (05:22)
[2022-11-16] MEDS: BACLOFEN 10 MG TABLET GT SCH ×4 (05:22→17:03)
[2022-11-16] MEDS: MULTIVIT, IRON, MIN NO. 8, FA TABLET GT SCH (05:22)
[2022-11-16 07:54] VITALS: O2SAT 98
[2022-11-16] MEDS: HYDROGEN PEROXIDE 3% 118 ML BOTTLE TP SCH ×2 (07:54→19:29)
[2022-11-16 08:00] VITALS: TEMP 97.8
[2022-11-16] MEDS: OMEGA-3 FATTY ACIDS/FISH OIL CAPSULE GT SCH (08:52)
[2022-11-16] MEDS: DOCUSATE SODIUM 100 MG/10 ML LIQUID UDC GT SCH (08:52)
[2022-11-16] MEDS: POLYVINYL ALCOHOL OPHT DROPS 15 ML BOTTLE EACHEYE SCH ×3 (08:52→16:59)
[2022-11-16] MEDS: VALPROIC ACID 250 MG/5 ML LIQUID UDC GT SCH ×3 (08:52→21:12)
[2022-11-16] MEDS: busPIRone 10 MG TABLET GT SCH ×3 (08:52→16:59)
[2022-11-16] MEDS: levETIRAcetam 500 MG/5 ML LIQUID UDC GT SCH ×2 (08:53→21:12)
[2022-11-16] MEDS: ACIDOPHILUS/BULGARICUS CHEW TAB GT SCH ×2 (08:53→21:12)
[2022-11-16] MEDS: POTASSIUM CHLORIDE 40 MEQ/30 ML LIQUID UDC GT SCH (08:53)
[2022-11-16] MEDS: MIRALAX 17 GM POWD.PACK GT SCH (08:53)
[2022-11-16] MEDS: ESCITALOPRAM 5 MG GT SCH (08:53)
[2022-11-16] MEDS: REMEDY ESSENTIAL ZINC PASTE 113 GM TP SCH ×2 (08:54→21:19)
[2022-11-16 20:00] VITALS: TEMP 97.9
[2022-11-16 21:10] VITALS: O2SAT 98
[2022-11-16] MEDS: MELATONIN 3MG TABLET GT SCH (21:12)
[2022-11-16] MEDS: CRANBERRY 500 MG GT SCH (21:13)
[2022-11-16] MEDS: MAGNESIUM COMPLEX GT SCH (21:13)
[2022-11-16] MEDS: NUTRISOURCE FIBER 4 GM PACKET GT SCH (21:15)
[2022-11-16] MEDS: PROTEIN SUPPLEMENT (PROSTAT) 30 ML LIQUID GT SCH (21:15)
[2022-11-16] MEDS: RIVAROXABAN 15 MG TABLET GT SCH (21:17)
[2022-11-17] MEDS: BACLOFEN 10 MG TABLET GT SCH ×4 (05:58→17:03)
[2022-11-17] MEDS: OMEPRAZOLE 20 MG CAPSULE.DR GT SCH (05:58)
[2022-11-17] MEDS: MULTIVIT, IRON, MIN NO. 8, FA TABLET GT SCH (05:58)
[2022-11-17 08:00] VITALS: TEMP 98.3
[2022-11-17] MEDS: busPIRone 10 MG TABLET GT SCH ×3 (08:34→17:03)
[2022-11-17] MEDS: ACIDOPHILUS/BULGARICUS CHEW TAB GT SCH ×2 (08:34→21:37)
[2022-11-17] MEDS: DOCUSATE SODIUM 100 MG/10 ML LIQUID UDC GT SCH (08:34)
[2022-11-17] MEDS: POLYVINYL ALCOHOL OPHT DROPS 15 ML BOTTLE EACHEYE SCH ×3 (08:34→17:03)
[2022-11-17] MEDS: VALPROIC ACID 250 MG/5 ML LIQUID UDC GT SCH ×3 (08:34→21:36)
[2022-11-17] MEDS: OMEGA-3 FATTY ACIDS/FISH OIL CAPSULE GT SCH (08:34)
[2022-11-17] MEDS: levETIRAcetam 500 MG/5 ML LIQUID UDC GT SCH ×2 (08:34→21:37)
[2022-11-17] MEDS: COAL TAR TOP SCH (08:35)
[2022-11-17] MEDS: POTASSIUM CHLORIDE 40 MEQ/30 ML LIQUID UDC GT SCH (08:35)
[2022-11-17] MEDS: MIRALAX 17 GM POWD.PACK GT SCH (08:35)
[2022-11-17] MEDS: REMEDY ESSENTIAL ZINC PASTE 113 GM TP SCH ×2 (08:35→21:40)
[2022-11-17] MEDS: ESCITALOPRAM OXALATE 10 MG TABLET GT SCH (08:35)
[2022-11-17 09:20] VITALS: O2SAT 99
[2022-11-17] MEDS: HYDROGEN PEROXIDE 3% 118 ML BOTTLE TP SCH ×2 (09:20→20:49)
[2022-11-17 19:50] VITALS: O2SAT 98
[2022-11-17 20:00] VITALS: TEMP 97.9
[2022-11-17] MEDS: MELATONIN 3MG TABLET GT SCH (21:37)
[2022-11-17] MEDS: CRANBERRY 500 MG GT SCH (21:38)
[2022-11-17] MEDS: MAGNESIUM COMPLEX GT SCH (21:38)
[2022-11-17] MEDS: NUTRISOURCE FIBER 4 GM PACKET GT SCH (21:39)
[2022-11-17] MEDS: PROTEIN SUPPLEMENT (PROSTAT) 30 ML LIQUID GT SCH (21:39)
[2022-11-17] MEDS: RIVAROXABAN 15 MG TABLET GT SCH (21:39)
[2022-11-18] MEDS: OMEPRAZOLE 20 MG CAPSULE.DR GT SCH (05:49)
[2022-11-18] MEDS: BACLOFEN 10 MG TABLET GT SCH ×4 (05:49→17:01)
[2022-11-18] MEDS: MULTIVIT, IRON, MIN NO. 8, FA TABLET GT SCH (05:49)
[2022-11-18] MEDS: TWOCAL HN 1,000 ML LIQUID GT PRN (05:50)
[2022-11-18 08:00] VITALS: TEMP 98.8
[2022-11-18] MEDS: HYDROGEN PEROXIDE 3% 118 ML BOTTLE TP SCH ×2 (08:07→22:36)
[2022-11-18] MEDS: VALPROIC ACID 250 MG/5 ML LIQUID UDC GT SCH ×3 (08:35→21:00)
[2022-11-18] MEDS: busPIRone 10 MG TABLET GT SCH ×3 (08:36→17:01)
[2022-11-18] MEDS: POLYVINYL ALCOHOL OPHT DROPS 15 ML BOTTLE EACHEYE SCH ×3 (08:36→17:01)
[2022-11-18] MEDS: OMEGA-3 FATTY ACIDS/FISH OIL CAPSULE GT SCH (08:37)
[2022-11-18] MEDS: DOCUSATE SODIUM 100 MG/10 ML LIQUID UDC GT SCH (08:37)
[2022-11-18] MEDS: ACIDOPHILUS/BULGARICUS CHEW TAB GT SCH ×2 (08:38→21:00)
[2022-11-18] MEDS: levETIRAcetam 500 MG/5 ML LIQUID UDC GT SCH ×2 (08:39→21:00)
[2022-11-18] MEDS: MIRALAX 17 GM POWD.PACK GT SCH (08:40)
[2022-11-18] MEDS: POTASSIUM CHLORIDE 40 MEQ/30 ML LIQUID UDC GT SCH (08:40)
[2022-11-18] MEDS: ESCITALOPRAM OXALATE 10 MG TABLET GT SCH (08:40)
[2022-11-18] MEDS: REMEDY ESSENTIAL ZINC PASTE 113 GM TP SCH ×2 (08:40→21:00)
[2022-11-18 11:13] VITALS: O2SAT 98
[2022-11-18 20:00] VITALS: TEMP 97.8
[2022-11-18 20:06] VITALS: O2SAT 98
[2022-11-18] MEDS: MELATONIN 3MG TABLET GT SCH (21:00)
[2022-11-18] MEDS: PROTEIN SUPPLEMENT (PROSTAT) 30 ML LIQUID GT SCH (21:00)
[2022-11-18] MEDS: NEOMY/BACITRA/POLYMYXIN B OINT UD PACKET TP SCH (21:00)
[2022-11-18] MEDS: MAGNESIUM COMPLEX GT SCH (21:00)
[2022-11-18] MEDS: NUTRISOURCE FIBER 4 GM PACKET GT SCH (21:00)
[2022-11-18] MEDS: CRANBERRY 500 MG GT SCH (21:00)
[2022-11-18] MEDS: RIVAROXABAN 15 MG TABLET GT SCH (21:00)
[2022-11-19] MEDS: BACLOFEN 10 MG TABLET GT SCH ×5 (05:44→23:21)
[2022-11-19] MEDS: OMEPRAZOLE 20 MG CAPSULE.DR GT SCH (05:44)
[2022-11-19] MEDS: MULTIVIT, IRON, MIN NO. 8, FA TABLET GT SCH (05:44)
[2022-11-19 07:33] VITALS: TEMP 97.6
[2022-11-19] MEDS: HYDROGEN PEROXIDE 3% 118 ML BOTTLE TP SCH ×2 (08:17→19:17)
[2022-11-19] MEDS: POLYVINYL ALCOHOL OPHT DROPS 15 ML BOTTLE EACHEYE SCH ×3 (08:25→17:25)
[2022-11-19] MEDS: VALPROIC ACID 250 MG/5 ML LIQUID UDC GT SCH ×3 (08:25→21:00)
[2022-11-19] MEDS: ACIDOPHILUS/BULGARICUS CHEW TAB GT SCH ×2 (08:26→21:00)
[2022-11-19] MEDS: DOCUSATE SODIUM 100 MG/10 ML LIQUID UDC GT SCH (08:26)
[2022-11-19] MEDS: busPIRone 10 MG TABLET GT SCH ×3 (08:26→17:26)
[2022-11-19] MEDS: OMEGA-3 FATTY ACIDS/FISH OIL CAPSULE GT SCH (08:26)
[2022-11-19] MEDS: ESCITALOPRAM OXALATE 10 MG TABLET GT SCH (08:27)
[2022-11-19] MEDS: levETIRAcetam 500 MG/5 ML LIQUID UDC GT SCH ×2 (08:27→21:00)
[2022-11-19] MEDS: POTASSIUM CHLORIDE 40 MEQ/30 ML LIQUID UDC GT SCH (08:28)
[2022-11-19] MEDS: MIRALAX 17 GM POWD.PACK GT SCH (08:28)
[2022-11-19] MEDS: REMEDY ESSENTIAL ZINC PASTE 113 GM TP SCH ×2 (08:29→21:00)
[2022-11-19] MEDS: NEOMY/BACITRA/POLYMYXIN B OINT UD PACKET TP SCH ×2 (08:29→21:00)
[2022-11-19 10:15] VITALS: O2SAT 98
[2022-11-19 19:50] VITALS: O2SAT 98
[2022-11-19 20:00] VITALS: TEMP 99
[2022-11-19] MEDS: MELATONIN 3MG TABLET GT SCH (21:00)
[2022-11-19] MEDS: MAGNESIUM COMPLEX GT SCH (21:00)
[2022-11-19] MEDS: CRANBERRY 500 MG GT SCH (21:00)
[2022-11-19] MEDS: PROTEIN SUPPLEMENT (PROSTAT) 30 ML LIQUID GT SCH (21:00)
[2022-11-19] MEDS: NUTRISOURCE FIBER 4 GM PACKET GT SCH (21:00)
[2022-11-19] MEDS: RIVAROXABAN 15 MG TABLET GT SCH (21:00)
[2022-11-20] VITALS: TEMP 98.5
[2022-11-20] MEDS: TWOCAL HN 1,000 ML LIQUID GT PRN (01:00)
[2022-11-20] MEDS: BACLOFEN 10 MG TABLET GT SCH ×3 (05:17→17:55)
[2022-11-20] MEDS: MULTIVIT, IRON, MIN NO. 8, FA TABLET GT SCH (05:17)
[2022-11-20] MEDS: OMEPRAZOLE 20 MG CAPSULE.DR GT SCH (05:17)
[2022-11-20] MEDS: HYDROGEN PEROXIDE 3% 118 ML BOTTLE TP SCH ×2 (07:04→19:26)
[2022-11-20] MEDS: VALPROIC ACID 250 MG/5 ML LIQUID UDC GT SCH ×3 (08:00→21:00)
[2022-11-20 08:05] VITALS: TEMP 97.2
[2022-11-20] MEDS: POLYVINYL ALCOHOL OPHT DROPS 15 ML BOTTLE EACHEYE SCH ×3 (09:19→17:55)
[2022-11-20] MEDS: DOCUSATE SODIUM 100 MG/10 ML LIQUID UDC GT SCH (09:20)
[2022-11-20] MEDS: busPIRone 10 MG TABLET GT SCH ×3 (09:20→17:55)
[2022-11-20] MEDS: ESCITALOPRAM OXALATE 10 MG TABLET GT SCH (09:21)
[2022-11-20] MEDS: ACIDOPHILUS/BULGARICUS CHEW TAB GT SCH ×2 (09:21→21:00)
[2022-11-20] MEDS: OMEGA-3 FATTY ACIDS/FISH OIL CAPSULE GT SCH (09:21)
[2022-11-20] MEDS: levETIRAcetam 500 MG/5 ML LIQUID UDC GT SCH ×2 (09:21→21:00)
[2022-11-20] MEDS: MIRALAX 17 GM POWD.PACK GT SCH (09:22)
[2022-11-20] MEDS: POTASSIUM CHLORIDE 40 MEQ/30 ML LIQUID UDC GT SCH (09:22)
[2022-11-20] MEDS: REMEDY ESSENTIAL ZINC PASTE 113 GM TP SCH ×2 (09:23→21:00)
[2022-11-20] MEDS: COAL TAR TOP SCH (09:23)
[2022-11-20] MEDS: NEOMY/BACITRA/POLYMYXIN B OINT UD PACKET TP SCH ×2 (09:23→21:00)
[2022-11-20 10:50] VITALS: O2SAT 99
[2022-11-20 20:00] VITALS: TEMP 98.6
[2022-11-20] MEDS: RIVAROXABAN 15 MG TABLET GT SCH (21:00)
[2022-11-20] MEDS: PROTEIN SUPPLEMENT (PROSTAT) 30 ML LIQUID GT SCH (21:00)
[2022-11-20] MEDS: NUTRISOURCE FIBER 4 GM PACKET GT SCH (21:00)
[2022-11-20] MEDS: MAGNESIUM COMPLEX GT SCH (21:00)
[2022-11-20] MEDS: CRANBERRY 500 MG GT SCH (21:00)
[2022-11-20] MEDS: MELATONIN 3MG TABLET GT SCH (21:00)
[2022-11-20 22:33] VITALS: O2SAT 98
[2022-11-21] MEDS: BACLOFEN 10 MG TABLET GT SCH ×4 (00:15→17:54)
[2022-11-21] MEDS: MULTIVIT, IRON, MIN NO. 8, FA TABLET GT SCH (06:00)
[2022-11-21] MEDS: OMEPRAZOLE 20 MG CAPSULE.DR GT SCH (06:00)
[2022-11-21 08:00] VITALS: TEMP 97.6
[2022-11-21] MEDS: VALPROIC ACID 250 MG/5 ML LIQUID UDC GT SCH ×3 (08:00→21:59)
[2022-11-21] MEDS: NEOMY/BACITRA/POLYMYXIN B OINT UD PACKET TP SCH ×2 (09:05→21:58)
[2022-11-21] MEDS: POTASSIUM CHLORIDE 40 MEQ/30 ML LIQUID UDC GT SCH (09:05)
[2022-11-21] MEDS: OMEGA-3 FATTY ACIDS/FISH OIL CAPSULE GT SCH (09:05)
[2022-11-21] MEDS: levETIRAcetam 500 MG/5 ML LIQUID UDC GT SCH ×2 (09:05→21:57)
[2022-11-21] MEDS: ACIDOPHILUS/BULGARICUS CHEW TAB GT SCH ×2 (09:05→21:56)
[2022-11-21] MEDS: ESCITALOPRAM OXALATE 10 MG TABLET GT SCH (09:05)
[2022-11-21] MEDS: MIRALAX 17 GM POWD.PACK GT SCH (09:05)
[2022-11-21] MEDS: busPIRone 10 MG TABLET GT SCH ×3 (09:05→17:54)
[2022-11-21] MEDS: REMEDY ESSENTIAL ZINC PASTE 113 GM TP SCH ×2 (09:05→21:58)
[2022-11-21] MEDS: DOCUSATE SODIUM 100 MG/10 ML LIQUID UDC GT SCH (09:05)
[2022-11-21] MEDS: POLYVINYL ALCOHOL OPHT DROPS 15 ML BOTTLE EACHEYE SCH ×3 (09:05→17:54)
[2022-11-21] MEDS: HYDROGEN PEROXIDE 3% 118 ML BOTTLE TP SCH ×2 (09:39→19:22)
[2022-11-21 10:20] VITALS: O2SAT 98
[2022-11-21 20:00] VITALS: TEMP 97.8
[2022-11-21] MEDS: RIVAROXABAN 15 MG TABLET GT SCH (21:00)
[2022-11-21 21:27] VITALS: O2SAT 98
[2022-11-21] MEDS: MELATONIN 3MG TABLET GT SCH (21:56)
[2022-11-21] MEDS: NUTRISOURCE FIBER 4 GM PACKET GT SCH (21:57)
[2022-11-21] MEDS: CRANBERRY 500 MG GT SCH (21:57)
[2022-11-21] MEDS: MAGNESIUM COMPLEX GT SCH (21:57)
[2022-11-21] MEDS: PROTEIN SUPPLEMENT (PROSTAT) 30 ML LIQUID GT SCH (21:58)
[2022-11-22] MEDS: BACLOFEN 10 MG TABLET GT SCH ×4 (00:41→17:48)
[2022-11-22] MEDS: TWOCAL HN 1,000 ML LIQUID GT PRN (03:00)
[2022-11-22] MEDS: OMEPRAZOLE 20 MG CAPSULE.DR GT SCH (06:12)
[2022-11-22] MEDS: MULTIVIT, IRON, MIN NO. 8, FA TABLET GT SCH (06:12)
[2022-11-22] MEDS: busPIRone 10 MG TABLET GT SCH ×3 (08:46→17:48)
[2022-11-22] MEDS: ESCITALOPRAM OXALATE 10 MG TABLET GT SCH (08:46)
[2022-11-22] MEDS: POLYVINYL ALCOHOL OPHT DROPS 15 ML BOTTLE EACHEYE SCH ×3 (08:46→17:48)
[2022-11-22] MEDS: levETIRAcetam 500 MG/5 ML LIQUID UDC GT SCH ×2 (08:46→21:00)
[2022-11-22] MEDS: DOCUSATE SODIUM 100 MG/10 ML LIQUID UDC GT SCH (08:46)
[2022-11-22] MEDS: VALPROIC ACID 250 MG/5 ML LIQUID UDC GT SCH ×3 (08:46→21:00)
[2022-11-22] MEDS: OMEGA-3 FATTY ACIDS/FISH OIL CAPSULE GT SCH (08:46)
[2022-11-22] MEDS: POTASSIUM CHLORIDE 40 MEQ/30 ML LIQUID UDC GT SCH (08:46)
[2022-11-22] MEDS: ACIDOPHILUS/BULGARICUS CHEW TAB GT SCH ×2 (08:46→21:00)
[2022-11-22] MEDS: MIRALAX 17 GM POWD.PACK GT SCH (08:46)
[2022-11-22] MEDS: NEOMY/BACITRA/POLYMYXIN B OINT UD PACKET TP SCH ×2 (08:47→21:00)
[2022-11-22] MEDS: REMEDY ESSENTIAL ZINC PASTE 113 GM TP SCH ×2 (08:47→21:00)
[2022-11-22] MEDS: HYDROGEN PEROXIDE 3% 118 ML BOTTLE TP SCH ×2 (09:29→20:12)
[2022-11-22 10:30] VITALS: O2SAT 99
[2022-11-22 20:12] VITALS: O2SAT 99
[2022-11-22 20:48] VITALS: TEMP 98.2
[2022-11-22] MEDS: RIVAROXABAN 15 MG TABLET GT SCH (21:00)
[2022-11-22] MEDS: MAGNESIUM COMPLEX GT SCH (21:00)
[2022-11-22] MEDS: NUTRISOURCE FIBER 4 GM PACKET GT SCH (21:00)
[2022-11-22] MEDS: MELATONIN 3MG TABLET GT SCH (21:00)
[2022-11-22] MEDS: PROTEIN SUPPLEMENT (PROSTAT) 30 ML LIQUID GT SCH (21:00)
[2022-11-22] MEDS: CRANBERRY 500 MG GT SCH (21:00)
[2022-11-23] MEDS: BACLOFEN 10 MG TABLET GT SCH ×4 (05:24→17:09)
[2022-11-23] MEDS: OMEPRAZOLE 20 MG CAPSULE.DR GT SCH (05:24)
[2022-11-23] MEDS: MULTIVIT, IRON, MIN NO. 8, FA TABLET GT SCH (05:24)
[2022-11-23 08:00] VITALS: TEMP 97.4
[2022-11-23] MEDS: ESCITALOPRAM OXALATE 10 MG TABLET GT SCH (08:16)
[2022-11-23] MEDS: levETIRAcetam 500 MG/5 ML LIQUID UDC GT SCH ×2 (08:16→21:00)
[2022-11-23] MEDS: POLYVINYL ALCOHOL OPHT DROPS 15 ML BOTTLE EACHEYE SCH ×3 (08:16→17:08)
[2022-11-23] MEDS: VALPROIC ACID 250 MG/5 ML LIQUID UDC GT SCH ×3 (08:16→21:00)
[2022-11-23] MEDS: REMEDY ESSENTIAL ZINC PASTE 113 GM TP SCH ×2 (08:16→21:00)
[2022-11-23] MEDS: MIRALAX 17 GM POWD.PACK GT SCH (08:16)
[2022-11-23] MEDS: POTASSIUM CHLORIDE 40 MEQ/30 ML LIQUID UDC GT SCH (08:16)
[2022-11-23] MEDS: OMEGA-3 FATTY ACIDS/FISH OIL CAPSULE GT SCH (08:16)
[2022-11-23] MEDS: busPIRone 10 MG TABLET GT SCH ×3 (08:16→17:08)
[2022-11-23] MEDS: DOCUSATE SODIUM 100 MG/10 ML LIQUID UDC GT SCH (08:16)
[2022-11-23] MEDS: NEOMY/BACITRA/POLYMYXIN B OINT UD PACKET TP SCH ×2 (08:16→21:00)
[2022-11-23] MEDS: ACIDOPHILUS/BULGARICUS CHEW TAB GT SCH ×2 (08:16→21:00)
[2022-11-23] MEDS: BISACODYL 10 MG SUPP.RECT RC PRN (08:17)
[2022-11-23] MEDS: HYDROGEN PEROXIDE 3% 118 ML BOTTLE TP SCH ×2 (09:00→20:43)
[2022-11-23 10:37] VITALS: O2SAT 98
[2022-11-23 20:33] VITALS: TEMP 98.3
[2022-11-23 20:43] VITALS: O2SAT 99
[2022-11-23] MEDS: MAGNESIUM COMPLEX GT SCH (21:00)
[2022-11-23] MEDS: PROTEIN SUPPLEMENT (PROSTAT) 30 ML LIQUID GT SCH (21:00)
[2022-11-23] MEDS: NUTRISOURCE FIBER 4 GM PACKET GT SCH (21:00)
[2022-11-23] MEDS: CRANBERRY 500 MG GT SCH (21:00)
[2022-11-23] MEDS: RIVAROXABAN 15 MG TABLET GT SCH (21:00)
[2022-11-23] MEDS: MELATONIN 3MG TABLET GT SCH (21:00)
[2022-11-24] MEDS: TWOCAL HN 1,000 ML LIQUID GT PRN (02:40)
[2022-11-24] MEDS: MULTIVIT, IRON, MIN NO. 8, FA TABLET GT SCH (05:37)
[2022-11-24] MEDS: OMEPRAZOLE 20 MG CAPSULE.DR GT SCH (05:37)
[2022-11-24] MEDS: BACLOFEN 10 MG TABLET GT SCH ×4 (05:37→17:28)
[2022-11-24 08:00] VITALS: TEMP 98.2
[2022-11-24] MEDS: VALPROIC ACID 250 MG/5 ML LIQUID UDC GT SCH ×3 (08:00→21:00)
[2022-11-24] MEDS: HYDROGEN PEROXIDE 3% 118 ML BOTTLE TP SCH ×2 (08:49→20:10)
[2022-11-24] MEDS: COAL TAR TOP SCH (09:00)
[2022-11-24] MEDS: POLYVINYL ALCOHOL OPHT DROPS 15 ML BOTTLE EACHEYE SCH ×3 (09:00→17:28)
[2022-11-24] MEDS: MIRALAX 17 GM POWD.PACK GT SCH (09:00)
[2022-11-24] MEDS: busPIRone 10 MG TABLET GT SCH ×3 (09:00→17:28)
[2022-11-24] MEDS: ACIDOPHILUS/BULGARICUS CHEW TAB GT SCH ×2 (09:00→21:00)
[2022-11-24] MEDS: NEOMY/BACITRA/POLYMYXIN B OINT UD PACKET TP SCH ×2 (09:00→21:00)
[2022-11-24] MEDS: ESCITALOPRAM OXALATE 10 MG TABLET GT SCH (09:00)
[2022-11-24] MEDS: levETIRAcetam 500 MG/5 ML LIQUID UDC GT SCH ×2 (09:00→21:00)
[2022-11-24] MEDS: DOCUSATE SODIUM 100 MG/10 ML LIQUID UDC GT SCH (09:00)
[2022-11-24] MEDS: REMEDY ESSENTIAL ZINC PASTE 113 GM TP SCH ×2 (09:00→21:00)
[2022-11-24] MEDS: POTASSIUM CHLORIDE 40 MEQ/30 ML LIQUID UDC GT SCH (09:00)
[2022-11-24] MEDS: OMEGA-3 FATTY ACIDS/FISH OIL CAPSULE GT SCH (09:00)
[2022-11-24 10:40] VITALS: O2SAT 97
[2022-11-24 20:07] VITALS: TEMP 98.4
[2022-11-24 20:10] VITALS: O2SAT 99
[2022-11-24] MEDS: RIVAROXABAN 15 MG TABLET GT SCH (21:00)
[2022-11-24] MEDS: MAGNESIUM COMPLEX GT SCH (21:00)
[2022-11-24] MEDS: NUTRISOURCE FIBER 4 GM PACKET GT SCH (21:00)
[2022-11-24] MEDS: CRANBERRY 500 MG GT SCH (21:00)
[2022-11-24] MEDS: PROTEIN SUPPLEMENT (PROSTAT) 30 ML LIQUID GT SCH (21:00)
[2022-11-24] MEDS: MELATONIN 3MG TABLET GT SCH (21:00)
[2022-11-25] MEDS: BACLOFEN 10 MG TABLET GT SCH ×5 (00:27→23:08)
[2022-11-25] MEDS: OMEPRAZOLE 20 MG CAPSULE.DR GT SCH (05:56)
[2022-11-25] MEDS: MULTIVIT, IRON, MIN NO. 8, FA TABLET GT SCH (05:56)
[2022-11-25 07:43] VITALS: TEMP 98.2
[2022-11-25] MEDS: VALPROIC ACID 250 MG/5 ML LIQUID UDC GT SCH ×3 (08:30→21:12)
[2022-11-25] MEDS: busPIRone 10 MG TABLET GT SCH ×3 (08:31→17:53)
[2022-11-25] MEDS: DOCUSATE SODIUM 100 MG/10 ML LIQUID UDC GT SCH (08:31)
[2022-11-25] MEDS: POLYVINYL ALCOHOL OPHT DROPS 15 ML BOTTLE EACHEYE SCH ×3 (08:31→17:53)
[2022-11-25] MEDS: levETIRAcetam 500 MG/5 ML LIQUID UDC GT SCH ×2 (08:33→21:05)
[2022-11-25] MEDS: OMEGA-3 FATTY ACIDS/FISH OIL CAPSULE GT SCH (08:33)
[2022-11-25] MEDS: MIRALAX 17 GM POWD.PACK GT SCH (08:33)
[2022-11-25] MEDS: POTASSIUM CHLORIDE 40 MEQ/30 ML LIQUID UDC GT SCH (08:33)
[2022-11-25] MEDS: ESCITALOPRAM OXALATE 10 MG TABLET GT SCH (08:33)
[2022-11-25] MEDS: ACIDOPHILUS/BULGARICUS CHEW TAB GT SCH ×2 (08:33→21:03)
[2022-11-25] MEDS: NEOMY/BACITRA/POLYMYXIN B OINT UD PACKET TP SCH ×2 (08:34→21:07)
[2022-11-25] MEDS: REMEDY ESSENTIAL ZINC PASTE 113 GM TP SCH ×2 (09:00→21:07)
[2022-11-25] MEDS: HYDROGEN PEROXIDE 3% 118 ML BOTTLE TP SCH ×2 (09:00→19:17)
[2022-11-25 09:40] VITALS: O2SAT 99
[2022-11-25 20:00] VITALS: TEMP 98.4
[2022-11-25 21:00] VITALS: O2SAT 99
[2022-11-25] MEDS: CRANBERRY 500 MG GT SCH (21:05)
[2022-11-25] MEDS: MAGNESIUM COMPLEX GT SCH (21:06)
[2022-11-25] MEDS: NUTRISOURCE FIBER 4 GM PACKET GT SCH (21:06)
[2022-11-25] MEDS: PROTEIN SUPPLEMENT (PROSTAT) 30 ML LIQUID GT SCH (21:06)
[2022-11-25] MEDS: RIVAROXABAN 15 MG TABLET GT SCH (21:08)
[2022-11-25] MEDS: MELATONIN 3MG TABLET GT SCH (21:16)
[2022-11-26] MEDS: TWOCAL HN 1,000 ML LIQUID GT PRN (03:00)
[2022-11-26] MEDS: BACLOFEN 10 MG TABLET GT SCH ×3 (05:39→17:09)
[2022-11-26] MEDS: MULTIVIT, IRON, MIN NO. 8, FA TABLET GT SCH (05:39)
[2022-11-26] MEDS: OMEPRAZOLE 20 MG CAPSULE.DR GT SCH (05:39)
[2022-11-26 07:46] VITALS: TEMP 97.4
[2022-11-26] MEDS: POTASSIUM CHLORIDE 40 MEQ/30 ML LIQUID UDC GT SCH (08:51)
[2022-11-26] MEDS: ACIDOPHILUS/BULGARICUS CHEW TAB GT SCH ×2 (08:51→21:46)
[2022-11-26] MEDS: VALPROIC ACID 250 MG/5 ML LIQUID UDC GT SCH ×3 (08:51→21:46)
[2022-11-26] MEDS: MIRALAX 17 GM POWD.PACK GT SCH (08:51)
[2022-11-26] MEDS: ESCITALOPRAM OXALATE 10 MG TABLET GT SCH (08:51)
[2022-11-26] MEDS: DOCUSATE SODIUM 100 MG/10 ML LIQUID UDC GT SCH (08:51)
[2022-11-26] MEDS: POLYVINYL ALCOHOL OPHT DROPS 15 ML BOTTLE EACHEYE SCH ×3 (08:51→17:09)
[2022-11-26] MEDS: OMEGA-3 FATTY ACIDS/FISH OIL CAPSULE GT SCH (08:51)
[2022-11-26] MEDS: levETIRAcetam 500 MG/5 ML LIQUID UDC GT SCH ×2 (08:51→21:46)
[2022-11-26] MEDS: busPIRone 10 MG TABLET GT SCH ×3 (08:51→17:09)
[2022-11-26] MEDS: NEOMY/BACITRA/POLYMYXIN B OINT UD PACKET TP SCH ×2 (08:52→21:46)
[2022-11-26] MEDS: REMEDY ESSENTIAL ZINC PASTE 113 GM TP SCH ×2 (08:52→21:46)
[2022-11-26] MEDS: HYDROGEN PEROXIDE 3% 118 ML BOTTLE TP SCH ×2 (09:00→19:22)
[2022-11-26 09:40] VITALS: O2SAT 99
[2022-11-26 20:00] VITALS: TEMP 98.2
[2022-11-26] MEDS: PROTEIN SUPPLEMENT (PROSTAT) 30 ML LIQUID GT SCH (21:46)
[2022-11-26] MEDS: MELATONIN 3MG TABLET GT SCH (21:46)
[2022-11-26] MEDS: CRANBERRY 500 MG GT SCH (21:46)
[2022-11-26] MEDS: NUTRISOURCE FIBER 4 GM PACKET GT SCH (21:46)
[2022-11-26] MEDS: MAGNESIUM COMPLEX GT SCH (21:46)
[2022-11-26] MEDS: RIVAROXABAN 15 MG TABLET GT SCH (21:47)
[2022-11-26 22:01] VITALS: O2SAT 99
[2022-11-27] MEDS: MULTIVIT, IRON, MIN NO. 8, FA TABLET GT SCH (05:39)
[2022-11-27] MEDS: OMEPRAZOLE 20 MG CAPSULE.DR GT SCH (05:39)
[2022-11-27] MEDS: BACLOFEN 10 MG TABLET GT SCH ×4 (05:39→17:30)
[2022-11-27 07:44] VITALS: TEMP 97.5
[2022-11-27 07:50] VITALS: O2SAT 99
[2022-11-27] MEDS: busPIRone 10 MG TABLET GT SCH ×3 (08:50→17:29)
[2022-11-27] MEDS: VALPROIC ACID 250 MG/5 ML LIQUID UDC GT SCH ×3 (08:50→21:00)
[2022-11-27] MEDS: POLYVINYL ALCOHOL OPHT DROPS 15 ML BOTTLE EACHEYE SCH ×3 (08:50→17:29)
[2022-11-27] MEDS: levETIRAcetam 500 MG/5 ML LIQUID UDC GT SCH ×2 (08:51→21:00)
[2022-11-27] MEDS: ESCITALOPRAM OXALATE 10 MG TABLET GT SCH (08:51)
[2022-11-27] MEDS: ACIDOPHILUS/BULGARICUS CHEW TAB GT SCH ×2 (08:51→21:00)
[2022-11-27] MEDS: MIRALAX 17 GM POWD.PACK GT SCH (08:51)
[2022-11-27] MEDS: DOCUSATE SODIUM 100 MG/10 ML LIQUID UDC GT SCH (08:51)
[2022-11-27] MEDS: OMEGA-3 FATTY ACIDS/FISH OIL CAPSULE GT SCH (08:51)
[2022-11-27] MEDS: POTASSIUM CHLORIDE 40 MEQ/30 ML LIQUID UDC GT SCH (08:53)
[2022-11-27] MEDS: REMEDY ESSENTIAL ZINC PASTE 113 GM TP SCH ×2 (08:53→21:00)
[2022-11-27] MEDS: NEOMY/BACITRA/POLYMYXIN B OINT UD PACKET TP SCH ×2 (08:53→21:00)
[2022-11-27] MEDS: COAL TAR TOP SCH (08:53)
[2022-11-27] MEDS: HYDROGEN PEROXIDE 3% 118 ML BOTTLE TP SCH ×2 (09:26→20:02)
[2022-11-27 19:50] VITALS: O2SAT 99
[2022-11-27] MEDS: CRANBERRY 500 MG GT SCH (21:00)
[2022-11-27] MEDS: MAGNESIUM COMPLEX GT SCH (21:00)
[2022-11-27] MEDS: RIVAROXABAN 15 MG TABLET GT SCH (21:00)
[2022-11-27] MEDS: PROTEIN SUPPLEMENT (PROSTAT) 30 ML LIQUID GT SCH (21:00)
[2022-11-27] MEDS: NUTRISOURCE FIBER 4 GM PACKET GT SCH (21:00)
[2022-11-27] MEDS: MELATONIN 3MG TABLET GT SCH (21:00)
[2022-11-27 22:00] VITALS: TEMP 98.4
[2022-11-28] MEDS: BACLOFEN 10 MG TABLET GT SCH ×5 (00:47→23:04)
[2022-11-28] MEDS: TWOCAL HN 1,000 ML LIQUID GT PRN (00:48)
[2022-11-28] MEDS: OMEPRAZOLE 20 MG CAPSULE.DR GT SCH (06:07)
[2022-11-28] MEDS: MULTIVIT, IRON, MIN NO. 8, FA TABLET GT SCH (06:07)
[2022-11-28 08:02] VITALS: TEMP 97.4; O2SAT 99
[2022-11-28] MEDS: VALPROIC ACID 250 MG/5 ML LIQUID UDC GT SCH ×3 (08:33→21:53)
[2022-11-28] MEDS: busPIRone 10 MG TABLET GT SCH ×3 (08:34→17:53)
[2022-11-28] MEDS: DOCUSATE SODIUM 100 MG/10 ML LIQUID UDC GT SCH (08:34)
[2022-11-28] MEDS: POLYVINYL ALCOHOL OPHT DROPS 15 ML BOTTLE EACHEYE SCH ×3 (08:34→17:53)
[2022-11-28] MEDS: levETIRAcetam 500 MG/5 ML LIQUID UDC GT SCH ×2 (08:35→21:53)
[2022-11-28] MEDS: ACIDOPHILUS/BULGARICUS CHEW TAB GT SCH ×2 (08:35→21:53)
[2022-11-28] MEDS: OMEGA-3 FATTY ACIDS/FISH OIL CAPSULE GT SCH (08:35)
[2022-11-28] MEDS: NEOMY/BACITRA/POLYMYXIN B OINT UD PACKET TP SCH ×2 (08:36→21:53)
[2022-11-28] MEDS: ESCITALOPRAM OXALATE 10 MG TABLET GT SCH (08:36)
[2022-11-28] MEDS: POTASSIUM CHLORIDE 40 MEQ/30 ML LIQUID UDC GT SCH (08:36)
[2022-11-28] MEDS: REMEDY ESSENTIAL ZINC PASTE 113 GM TP SCH ×2 (08:36→21:53)
[2022-11-28] MEDS: MIRALAX 17 GM POWD.PACK GT SCH (08:36)
[2022-11-28] MEDS: HYDROGEN PEROXIDE 3% 118 ML BOTTLE TP SCH ×2 (09:00→21:02)
[2022-11-28 20:00] VITALS: TEMP 98.4
[2022-11-28 21:15] VITALS: O2SAT 99
[2022-11-28] MEDS: PROTEIN SUPPLEMENT (PROSTAT) 30 ML LIQUID GT SCH (21:53)
[2022-11-28] MEDS: NUTRISOURCE FIBER 4 GM PACKET GT SCH (21:53)
[2022-11-28] MEDS: MAGNESIUM COMPLEX GT SCH (21:53)
[2022-11-28] MEDS: MELATONIN 3MG TABLET GT SCH (21:53)
[2022-11-28] MEDS: CRANBERRY 500 MG GT SCH (21:53)
[2022-11-28] MEDS: RIVAROXABAN 15 MG TABLET GT SCH (21:54)
[2022-11-29] MEDS: OMEPRAZOLE 20 MG CAPSULE.DR GT SCH (05:52)
[2022-11-29] MEDS: MULTIVIT, IRON, MIN NO. 8, FA TABLET GT SCH (05:52)
[2022-11-29] MEDS: BACLOFEN 10 MG TABLET GT SCH ×3 (05:52→18:13)
[2022-11-29 07:25] VITALS: O2SAT 98
[2022-11-29 07:32] VITALS: TEMP 97.5
[2022-11-29] MEDS: HYDROGEN PEROXIDE 3% 118 ML BOTTLE TP SCH ×2 (07:42→21:00)
[2022-11-29] MEDS: VALPROIC ACID 250 MG/5 ML LIQUID UDC GT SCH ×3 (08:00→21:59)
[2022-11-29] MEDS: busPIRone 10 MG TABLET GT SCH ×3 (09:19→17:14)
[2022-11-29] MEDS: POLYVINYL ALCOHOL OPHT DROPS 15 ML BOTTLE EACHEYE SCH ×3 (09:19→17:13)
[2022-11-29] MEDS: DOCUSATE SODIUM 100 MG/10 ML LIQUID UDC GT SCH (09:20)
[2022-11-29] MEDS: ACIDOPHILUS/BULGARICUS CHEW TAB GT SCH ×2 (09:21→21:59)
[2022-11-29] MEDS: OMEGA-3 FATTY ACIDS/FISH OIL CAPSULE GT SCH (09:21)
[2022-11-29] MEDS: levETIRAcetam 500 MG/5 ML LIQUID UDC GT SCH ×2 (09:22→21:59)
[2022-11-29] MEDS: MIRALAX 17 GM POWD.PACK GT SCH (09:22)
[2022-11-29] MEDS: ESCITALOPRAM OXALATE 10 MG TABLET GT SCH (09:23)
[2022-11-29] MEDS: REMEDY ESSENTIAL ZINC PASTE 113 GM TP SCH ×2 (09:23→21:00)
[2022-11-29] MEDS: NEOMY/BACITRA/POLYMYXIN B OINT UD PACKET TP SCH ×2 (09:23→21:00)
[2022-11-29] MEDS: POTASSIUM CHLORIDE 40 MEQ/30 ML LIQUID UDC GT SCH (09:25)
[2022-11-29 13:57] VITALS: O2SAT 99
[2022-11-29 20:22] VITALS: O2SAT 99
[2022-11-29] MEDS: MAGNESIUM COMPLEX GT SCH (21:59)
[2022-11-29] MEDS: MELATONIN 3MG TABLET GT SCH (21:59)
[2022-11-29] MEDS: NUTRISOURCE FIBER 4 GM PACKET GT SCH (21:59)
[2022-11-29] MEDS: CRANBERRY 500 MG GT SCH (21:59)
[2022-11-29] MEDS: PROTEIN SUPPLEMENT (PROSTAT) 30 ML LIQUID GT SCH (21:59)
[2022-11-29] MEDS: RIVAROXABAN 15 MG TABLET GT SCH (22:01)
[2022-11-29 22:50] VITALS: TEMP 98.4
[2022-11-30] MEDS: BACLOFEN 10 MG TABLET GT SCH ×5 (00:16→23:52)
[2022-11-30] MEDS: OMEPRAZOLE 20 MG CAPSULE.DR GT SCH (05:26)
[2022-11-30] MEDS: MULTIVIT, IRON, MIN NO. 8, FA TABLET GT SCH (05:26)
[2022-11-30 07:27] VITALS: TEMP 97.6
[2022-11-30] MEDS: HYDROGEN PEROXIDE 3% 118 ML BOTTLE TP SCH ×2 (08:04→21:11)
[2022-11-30] MEDS: VALPROIC ACID 250 MG/5 ML LIQUID UDC GT SCH ×3 (08:47→21:22)
[2022-11-30] MEDS: POLYVINYL ALCOHOL OPHT DROPS 15 ML BOTTLE EACHEYE SCH ×3 (08:47→17:00)
[2022-11-30] MEDS: DOCUSATE SODIUM 100 MG/10 ML LIQUID UDC GT SCH (08:48)
[2022-11-30] MEDS: OMEGA-3 FATTY ACIDS/FISH OIL CAPSULE GT SCH (08:48)
[2022-11-30] MEDS: ACIDOPHILUS/BULGARICUS CHEW TAB GT SCH ×2 (08:49→21:23)
[2022-11-30] MEDS: POTASSIUM CHLORIDE 40 MEQ/30 ML LIQUID UDC GT SCH (08:50)
[2022-11-30] MEDS: levETIRAcetam 500 MG/5 ML LIQUID UDC GT SCH ×2 (08:50→21:23)
[2022-11-30] MEDS: REMEDY ESSENTIAL ZINC PASTE 113 GM TP SCH ×2 (08:51→21:25)
[2022-11-30] MEDS: MIRALAX 17 GM POWD.PACK GT SCH (08:51)
[2022-11-30] MEDS: NEOMY/BACITRA/POLYMYXIN B OINT UD PACKET TP SCH ×2 (08:51→21:35)
[2022-11-30] MEDS: ESCITALOPRAM OXALATE 10 MG TABLET GT SCH (08:52)
[2022-11-30] MEDS: busPIRone 10 MG TABLET GT SCH ×3 (08:52→17:00)
[2022-11-30 14:08] VITALS: O2SAT 98
[2022-11-30 20:10] VITALS: O2SAT 99
[2022-11-30 20:24] VITALS: TEMP 98.3
[2022-11-30] MEDS: CRANBERRY 500 MG GT SCH (21:24)
[2022-11-30] MEDS: MELATONIN 3MG TABLET GT SCH (21:24)
[2022-11-30] MEDS: MAGNESIUM COMPLEX GT SCH (21:24)
[2022-11-30] MEDS: PROTEIN SUPPLEMENT (PROSTAT) 30 ML LIQUID GT SCH (21:25)
[2022-11-30] MEDS: NUTRISOURCE FIBER 4 GM PACKET GT SCH (21:25)
[2022-11-30] MEDS: RIVAROXABAN 15 MG TABLET GT SCH (21:27)
[2022-12-01] MEDS: OMEPRAZOLE 20 MG CAPSULE.DR GT SCH (06:02)
[2022-12-01] MEDS: MULTIVIT, IRON, MIN NO. 8, FA TABLET GT SCH (06:02)
[2022-12-01] MEDS: BACLOFEN 10 MG TABLET GT SCH ×3 (06:02→17:10)
[2022-12-01 07:20] VITALS: TEMP 99
[2022-12-01 07:54] VITALS: O2SAT 99
[2022-12-01] MEDS: VALPROIC ACID 250 MG/5 ML LIQUID UDC GT SCH ×3 (08:13→21:56)
[2022-12-01] MEDS: POLYVINYL ALCOHOL OPHT DROPS 15 ML BOTTLE EACHEYE SCH ×3 (08:13→16:55)
[2022-12-01] MEDS: busPIRone 10 MG TABLET GT SCH ×3 (08:13→16:55)
[2022-12-01] MEDS: DOCUSATE SODIUM 100 MG/10 ML LIQUID UDC GT SCH (08:14)
[2022-12-01] MEDS: ACIDOPHILUS/BULGARICUS CHEW TAB GT SCH ×2 (08:14→21:56)
[2022-12-01] MEDS: OMEGA-3 FATTY ACIDS/FISH OIL CAPSULE GT SCH (08:14)
[2022-12-01] MEDS: levETIRAcetam 500 MG/5 ML LIQUID UDC GT SCH ×2 (08:19→21:56)
[2022-12-01] MEDS: MIRALAX 17 GM POWD.PACK GT SCH (08:19)
[2022-12-01] MEDS: ESCITALOPRAM OXALATE 10 MG TABLET GT SCH (08:19)
[2022-12-01] MEDS: POTASSIUM CHLORIDE 40 MEQ/30 ML LIQUID UDC GT SCH (08:20)
[2022-12-01] MEDS: NEOMY/BACITRA/POLYMYXIN B OINT UD PACKET TP SCH ×2 (08:21→21:57)
[2022-12-01] MEDS: REMEDY ESSENTIAL ZINC PASTE 113 GM TP SCH ×2 (08:21→21:57)
[2022-12-01] MEDS: COAL TAR TOP SCH (08:21)
[2022-12-01] MEDS: HYDROGEN PEROXIDE 3% 118 ML BOTTLE TP SCH ×2 (09:18→21:29)
[2022-12-01] MEDS: TWOCAL HN 1,000 ML LIQUID GT PRN (18:14)
[2022-12-01 20:00] VITALS: TEMP 98.6
[2022-12-01 20:50] VITALS: O2SAT 99
[2022-12-01] MEDS: MELATONIN 3MG TABLET GT SCH (21:56)
[2022-12-01] MEDS: CRANBERRY 500 MG GT SCH (21:56)
[2022-12-01] MEDS: NUTRISOURCE FIBER 4 GM PACKET GT SCH (21:56)
[2022-12-01] MEDS: MAGNESIUM COMPLEX GT SCH (21:56)
[2022-12-01] MEDS: PROTEIN SUPPLEMENT (PROSTAT) 30 ML LIQUID GT SCH (21:56)
[2022-12-01] MEDS: RIVAROXABAN 15 MG TABLET GT SCH (21:57)
[2022-12-02] MEDS: BACLOFEN 10 MG TABLET GT SCH ×4 (00:36→17:29)
[2022-12-02] MEDS: OMEPRAZOLE 20 MG CAPSULE.DR GT SCH (05:37)
[2022-12-02] MEDS: MULTIVIT, IRON, MIN NO. 8, FA TABLET GT SCH (05:37)
[2022-12-02 07:23] VITALS: TEMP 97.4
[2022-12-02] MEDS: HYDROGEN PEROXIDE 3% 118 ML BOTTLE TP SCH ×2 (08:07→21:29)
[2022-12-02] MEDS: POLYVINYL ALCOHOL OPHT DROPS 15 ML BOTTLE EACHEYE SCH ×3 (08:40→17:20)
[2022-12-02] MEDS: VALPROIC ACID 250 MG/5 ML LIQUID UDC GT SCH ×3 (08:40→21:00)
[2022-12-02] MEDS: MIRALAX 17 GM POWD.PACK GT SCH (08:41)
[2022-12-02] MEDS: ESCITALOPRAM OXALATE 10 MG TABLET GT SCH (08:41)
[2022-12-02] MEDS: levETIRAcetam 500 MG/5 ML LIQUID UDC GT SCH ×2 (08:41→21:00)
[2022-12-02] MEDS: OMEGA-3 FATTY ACIDS/FISH OIL CAPSULE GT SCH (08:41)
[2022-12-02] MEDS: DOCUSATE SODIUM 100 MG/10 ML LIQUID UDC GT SCH (08:41)
[2022-12-02] MEDS: ACIDOPHILUS/BULGARICUS CHEW TAB GT SCH ×2 (08:41→21:00)
[2022-12-02] MEDS: busPIRone 10 MG TABLET GT SCH ×3 (08:41→17:20)
[2022-12-02] MEDS: POTASSIUM CHLORIDE 40 MEQ/30 ML LIQUID UDC GT SCH (08:41)
[2022-12-02] MEDS: NEOMY/BACITRA/POLYMYXIN B OINT UD PACKET TP SCH (08:42)
[2022-12-02] MEDS: REMEDY ESSENTIAL ZINC PASTE 113 GM TP SCH ×2 (08:42→21:00)
[2022-12-02 13:15] VITALS: O2SAT 98
[2022-12-02 20:00] VITALS: TEMP 97.6
[2022-12-02 20:38] VITALS: O2SAT 99
[2022-12-02] MEDS: MAGNESIUM COMPLEX GT SCH (21:00)
[2022-12-02] MEDS: CRANBERRY 500 MG GT SCH (21:00)
[2022-12-02] MEDS: NUTRISOURCE FIBER 4 GM PACKET GT SCH (21:00)
[2022-12-02] MEDS: MELATONIN 3MG TABLET GT SCH (21:00)
[2022-12-02] MEDS: PROTEIN SUPPLEMENT (PROSTAT) 30 ML LIQUID GT SCH (21:00)
[2022-12-02] MEDS: RIVAROXABAN 15 MG TABLET GT SCH (21:00)
[2022-12-03] MEDS: BACLOFEN 10 MG TABLET GT SCH ×4 (00:48→17:01)
[2022-12-03] MEDS: OMEPRAZOLE 20 MG CAPSULE.DR GT SCH (06:00)
[2022-12-03] MEDS: MULTIVIT, IRON, MIN NO. 8, FA TABLET GT SCH (06:00)
[2022-12-03 07:55] VITALS: BP 98/64; TEMP 97.8; O2SAT 100
[2022-12-03] MEDS: VALPROIC ACID 250 MG/5 ML LIQUID UDC GT SCH ×3 (08:59→21:57)
[2022-12-03] MEDS: POLYVINYL ALCOHOL OPHT DROPS 15 ML BOTTLE EACHEYE SCH ×3 (08:59→17:00)
[2022-12-03] MEDS: HYDROGEN PEROXIDE 3% 118 ML BOTTLE TP SCH ×2 (09:00→19:17)
[2022-12-03] MEDS: busPIRone 10 MG TABLET GT SCH ×3 (09:00→17:00)
[2022-12-03] MEDS: DOCUSATE SODIUM 100 MG/10 ML LIQUID UDC GT SCH (09:02)
[2022-12-03] MEDS: ACIDOPHILUS/BULGARICUS CHEW TAB GT SCH ×2 (09:03→21:57)
[2022-12-03] MEDS: OMEGA-3 FATTY ACIDS/FISH OIL CAPSULE GT SCH (09:03)
[2022-12-03] MEDS: levETIRAcetam 500 MG/5 ML LIQUID UDC GT SCH ×2 (09:04→21:57)
[2022-12-03] MEDS: ESCITALOPRAM OXALATE 10 MG TABLET GT SCH (09:06)
[2022-12-03] MEDS: MIRALAX 17 GM POWD.PACK GT SCH (09:08)
[2022-12-03] MEDS: POTASSIUM CHLORIDE 40 MEQ/30 ML LIQUID UDC GT SCH (09:10)
[2022-12-03] MEDS: REMEDY ESSENTIAL ZINC PASTE 113 GM TP SCH ×2 (09:10→21:58)
[2022-12-03 10:44] VITALS: O2SAT 98
[2022-12-03 19:50] VITALS: O2SAT 99
[2022-12-03 20:00] VITALS: TEMP 98.4
[2022-12-03] MEDS: MAGNESIUM COMPLEX GT SCH (21:57)
[2022-12-03] MEDS: MELATONIN 3MG TABLET GT SCH (21:57)
[2022-12-03] MEDS: CRANBERRY 500 MG GT SCH (21:57)
[2022-12-03] MEDS: NUTRISOURCE FIBER 4 GM PACKET GT SCH (21:57)
[2022-12-03] MEDS: PROTEIN SUPPLEMENT (PROSTAT) 30 ML LIQUID GT SCH (21:57)
[2022-12-03] MEDS: RIVAROXABAN 15 MG TABLET GT SCH (21:58)
[2022-12-03] MEDS: TWOCAL HN 1,000 ML LIQUID GT PRN (22:04)
[2022-12-04] MEDS: BACLOFEN 10 MG TABLET GT SCH ×4 (00:30→17:35)
[2022-12-04 06:21] VITALS: O2SAT 99
[2022-12-04] MEDS: OMEPRAZOLE 20 MG CAPSULE.DR GT SCH (06:27)
[2022-12-04] MEDS: MULTIVIT, IRON, MIN NO. 8, FA TABLET GT SCH (06:27)
[2022-12-04] MEDS: VALPROIC ACID 250 MG/5 ML LIQUID UDC GT SCH ×3 (08:00→21:00)
[2022-12-04 08:06] VITALS: TEMP 97.8
[2022-12-04] MEDS: busPIRone 10 MG TABLET GT SCH ×3 (09:14→17:31)
[2022-12-04] MEDS: POLYVINYL ALCOHOL OPHT DROPS 15 ML BOTTLE EACHEYE SCH ×3 (09:17→17:33)
[2022-12-04] MEDS: OMEGA-3 FATTY ACIDS/FISH OIL CAPSULE GT SCH (09:18)
[2022-12-04] MEDS: DOCUSATE SODIUM 100 MG/10 ML LIQUID UDC GT SCH (09:18)
[2022-12-04] MEDS: ACIDOPHILUS/BULGARICUS CHEW TAB GT SCH ×2 (09:19→21:00)
[2022-12-04] MEDS: levETIRAcetam 500 MG/5 ML LIQUID UDC GT SCH ×2 (09:22→21:00)
[2022-12-04] MEDS: ESCITALOPRAM OXALATE 10 MG TABLET GT SCH (09:23)
[2022-12-04] MEDS: REMEDY ESSENTIAL ZINC PASTE 113 GM TP SCH ×2 (09:24→21:00)
[2022-12-04] MEDS: HYDROGEN PEROXIDE 3% 118 ML BOTTLE TP SCH ×2 (09:24→19:32)
[2022-12-04] MEDS: POTASSIUM CHLORIDE 40 MEQ/30 ML LIQUID UDC GT SCH (09:24)
[2022-12-04] MEDS: COAL TAR TOP SCH (09:24)
[2022-12-04] MEDS: MIRALAX 17 GM POWD.PACK GT SCH (09:26)
[2022-12-04 10:25] VITALS: O2SAT 99
[2022-12-04] MEDS: NUTRISOURCE FIBER 4 GM PACKET GT SCH (21:00)
[2022-12-04] MEDS: MELATONIN 3MG TABLET GT SCH (21:00)
[2022-12-04] MEDS: MAGNESIUM COMPLEX GT SCH (21:00)
[2022-12-04] MEDS: CRANBERRY 500 MG GT SCH (21:00)
[2022-12-04] MEDS: PROTEIN SUPPLEMENT (PROSTAT) 30 ML LIQUID GT SCH (21:00)
[2022-12-04] MEDS: RIVAROXABAN 15 MG TABLET GT SCH (21:28)
[2022-12-04 22:42] VITALS: O2SAT 99
[2022-12-04 23:00] VITALS: TEMP 98.7
[2022-12-05] MEDS: OMEPRAZOLE 20 MG CAPSULE.DR GT SCH (06:05)
[2022-12-05] MEDS: MULTIVIT, IRON, MIN NO. 8, FA TABLET GT SCH (06:05)
[2022-12-05] MEDS: BACLOFEN 10 MG TABLET GT SCH ×4 (06:05→17:16)
[2022-12-05 07:54] VITALS: TEMP 97.3
[2022-12-05] MEDS: HYDROGEN PEROXIDE 3% 118 ML BOTTLE TP SCH ×2 (08:13→21:10)
[2022-12-05] MEDS: VALPROIC ACID 250 MG/5 ML LIQUID UDC GT SCH ×3 (08:38→21:00)
[2022-12-05] MEDS: POLYVINYL ALCOHOL OPHT DROPS 15 ML BOTTLE EACHEYE SCH ×3 (08:41→17:16)
[2022-12-05] MEDS: DOCUSATE SODIUM 100 MG/10 ML LIQUID UDC GT SCH (08:42)
[2022-12-05] MEDS: busPIRone 10 MG TABLET GT SCH ×3 (08:42→17:16)
[2022-12-05] MEDS: OMEGA-3 FATTY ACIDS/FISH OIL CAPSULE GT SCH (08:43)
[2022-12-05] MEDS: ACIDOPHILUS/BULGARICUS CHEW TAB GT SCH ×2 (08:44→21:00)
[2022-12-05] MEDS: levETIRAcetam 500 MG/5 ML LIQUID UDC GT SCH ×2 (08:44→21:00)
[2022-12-05] MEDS: ESCITALOPRAM OXALATE 10 MG TABLET GT SCH (08:45)
[2022-12-05] MEDS: POTASSIUM CHLORIDE 40 MEQ/30 ML LIQUID UDC GT SCH (08:47)
[2022-12-05] MEDS: MIRALAX 17 GM POWD.PACK GT SCH (08:47)
[2022-12-05] MEDS: REMEDY ESSENTIAL ZINC PASTE 113 GM TP SCH ×2 (08:48→21:00)
[2022-12-05 13:01] VITALS: O2SAT 98
[2022-12-05 20:00] VITALS: TEMP 98.4
[2022-12-05] MEDS: MELATONIN 3MG TABLET GT SCH (21:00)
[2022-12-05] MEDS: RIVAROXABAN 15 MG TABLET GT SCH (21:00)
[2022-12-05] MEDS: PROTEIN SUPPLEMENT (PROSTAT) 30 ML LIQUID GT SCH (21:00)
[2022-12-05] MEDS: MAGNESIUM COMPLEX GT SCH (21:00)
[2022-12-05] MEDS: NUTRISOURCE FIBER 4 GM PACKET GT SCH (21:00)
[2022-12-05] MEDS: CRANBERRY 500 MG GT SCH (21:00)
[2022-12-05 22:00] VITALS: O2SAT 99
[2022-12-06] MEDS: TWOCAL HN 1,000 ML LIQUID GT PRN (00:18)
[2022-12-06] MEDS: OMEPRAZOLE 20 MG CAPSULE.DR GT SCH (05:17)
[2022-12-06] MEDS: MULTIVIT, IRON, MIN NO. 8, FA TABLET GT SCH (05:17)
[2022-12-06] MEDS: BACLOFEN 10 MG TABLET GT SCH ×5 (05:17→21:40)
[2022-12-06 07:37] VITALS: TEMP 97.6
[2022-12-06] MEDS: VALPROIC ACID 250 MG/5 ML LIQUID UDC GT SCH ×3 (08:00→21:40)
[2022-12-06] MEDS: HYDROGEN PEROXIDE 3% 118 ML BOTTLE TP SCH ×2 (08:19→19:24)
[2022-12-06] MEDS: POLYVINYL ALCOHOL OPHT DROPS 15 ML BOTTLE EACHEYE SCH ×3 (09:13→17:36)
[2022-12-06] MEDS: busPIRone 10 MG TABLET GT SCH ×3 (09:14→17:37)
[2022-12-06] MEDS: DOCUSATE SODIUM 100 MG/10 ML LIQUID UDC GT SCH (09:15)
[2022-12-06] MEDS: OMEGA-3 FATTY ACIDS/FISH OIL CAPSULE GT SCH (09:16)
[2022-12-06] MEDS: ACIDOPHILUS/BULGARICUS CHEW TAB GT SCH ×2 (09:16→21:40)
[2022-12-06] MEDS: levETIRAcetam 500 MG/5 ML LIQUID UDC GT SCH ×2 (09:17→21:40)
[2022-12-06] MEDS: ESCITALOPRAM OXALATE 10 MG TABLET GT SCH (09:18)
[2022-12-06] MEDS: MIRALAX 17 GM POWD.PACK GT SCH (09:19)
[2022-12-06] MEDS: POTASSIUM CHLORIDE 40 MEQ/30 ML LIQUID UDC GT SCH (09:20)
[2022-12-06] MEDS: REMEDY ESSENTIAL ZINC PASTE 113 GM TP SCH ×2 (09:20→21:40)
[2022-12-06 16:23] VITALS: O2SAT 98
[2022-12-06] MEDS: ACETAMINOPHEN 650 MG/20 ML UDC- SA PATIENTS-PAIN ONLY GT PRN (18:55)
[2022-12-06 20:00] VITALS: BP 104/59; TEMP 97.8; O2SAT 98
[2022-12-06] MEDS: CRANBERRY 500 MG GT SCH (21:40)
[2022-12-06] MEDS: MAGNESIUM COMPLEX GT SCH (21:40)
[2022-12-06] MEDS: MELATONIN 3MG TABLET GT SCH (21:40)
[2022-12-06] MEDS: NUTRISOURCE FIBER 4 GM PACKET GT SCH (21:40)
[2022-12-06] MEDS: PROTEIN SUPPLEMENT (PROSTAT) 30 ML LIQUID GT SCH (21:40)
[2022-12-06] MEDS: RIVAROXABAN 15 MG TABLET GT SCH (21:40)
[2022-12-07] MEDS: BACLOFEN 10 MG TABLET GT SCH ×3 (05:16→17:16)
[2022-12-07] MEDS: MULTIVIT, IRON, MIN NO. 8, FA TABLET GT SCH (05:17)
[2022-12-07] MEDS: OMEPRAZOLE 20 MG CAPSULE.DR GT SCH (05:17)
[2022-12-07 08:00] VITALS: TEMP 97.6
[2022-12-07] MEDS: POLYVINYL ALCOHOL OPHT DROPS 15 ML BOTTLE EACHEYE SCH ×3 (08:40→17:15)
[2022-12-07] MEDS: DOCUSATE SODIUM 100 MG/10 ML LIQUID UDC GT SCH (08:40)
[2022-12-07] MEDS: VALPROIC ACID 250 MG/5 ML LIQUID UDC GT SCH ×3 (08:40→21:33)
[2022-12-07] MEDS: busPIRone 10 MG TABLET GT SCH ×3 (08:40→17:15)
[2022-12-07] MEDS: ESCITALOPRAM OXALATE 10 MG TABLET GT SCH (08:41)
[2022-12-07] MEDS: ACIDOPHILUS/BULGARICUS CHEW TAB GT SCH ×2 (08:41→21:34)
[2022-12-07] MEDS: levETIRAcetam 500 MG/5 ML LIQUID UDC GT SCH ×2 (08:41→21:34)
[2022-12-07] MEDS: OMEGA-3 FATTY ACIDS/FISH OIL CAPSULE GT SCH (08:41)
[2022-12-07] MEDS: MIRALAX 17 GM POWD.PACK GT SCH (08:41)
[2022-12-07] MEDS: POTASSIUM CHLORIDE 40 MEQ/30 ML LIQUID UDC GT SCH (08:42)
[2022-12-07] MEDS: REMEDY ESSENTIAL ZINC PASTE 113 GM TP SCH ×2 (08:43→21:38)
[2022-12-07] MEDS: HYDROGEN PEROXIDE 3% 118 ML BOTTLE TP SCH ×2 (08:48→19:05)
[2022-12-07 13:21] VITALS: O2SAT 98
[2022-12-07 19:05] VITALS: O2SAT 99
[2022-12-07 20:08] VITALS: TEMP 98.2
[2022-12-07] MEDS: MELATONIN 3MG TABLET GT SCH (21:34)
[2022-12-07] MEDS: MAGNESIUM COMPLEX GT SCH (21:35)
[2022-12-07] MEDS: CRANBERRY 500 MG GT SCH (21:35)
[2022-12-07] MEDS: NUTRISOURCE FIBER 4 GM PACKET GT SCH (21:35)
[2022-12-07] MEDS: PROTEIN SUPPLEMENT (PROSTAT) 30 ML LIQUID GT SCH (21:36)
[2022-12-07] MEDS: RIVAROXABAN 15 MG TABLET GT SCH (21:38)
[2022-12-08] MEDS: BACLOFEN 10 MG TABLET GT SCH ×4 (05:48→17:01)
[2022-12-08] MEDS: OMEPRAZOLE 20 MG CAPSULE.DR GT SCH (05:48)
[2022-12-08] MEDS: MULTIVIT, IRON, MIN NO. 8, FA TABLET GT SCH (05:49)
[2022-12-08] MEDS: TWOCAL HN 1,000 ML LIQUID GT PRN (06:09)
[2022-12-08 08:00] VITALS: TEMP 97.6
[2022-12-08] MEDS: VALPROIC ACID 250 MG/5 ML LIQUID UDC GT SCH ×3 (08:55→20:53)
[2022-12-08] MEDS: HYDROGEN PEROXIDE 3% 118 ML BOTTLE TP SCH ×2 (09:00→18:56)
[2022-12-08] MEDS: busPIRone 10 MG TABLET GT SCH ×3 (09:27→17:01)
[2022-12-08] MEDS: DOCUSATE SODIUM 100 MG/10 ML LIQUID UDC GT SCH (09:27)
[2022-12-08] MEDS: POLYVINYL ALCOHOL OPHT DROPS 15 ML BOTTLE EACHEYE SCH ×3 (09:27→17:01)
[2022-12-08] MEDS: OMEGA-3 FATTY ACIDS/FISH OIL CAPSULE GT SCH (09:28)
[2022-12-08] MEDS: ACIDOPHILUS/BULGARICUS CHEW TAB GT SCH ×2 (09:29→20:53)
[2022-12-08] MEDS: POTASSIUM CHLORIDE 40 MEQ/30 ML LIQUID UDC GT SCH (09:29)
[2022-12-08] MEDS: ESCITALOPRAM OXALATE 10 MG TABLET GT SCH (09:29)
[2022-12-08] MEDS: MIRALAX 17 GM POWD.PACK GT SCH (09:29)
[2022-12-08] MEDS: levETIRAcetam 500 MG/5 ML LIQUID UDC GT SCH ×2 (09:29→20:54)
[2022-12-08] MEDS: REMEDY ESSENTIAL ZINC PASTE 113 GM TP SCH ×2 (09:30→20:57)
[2022-12-08] MEDS: COAL TAR TOP SCH (09:30)
[2022-12-08 11:15] VITALS: O2SAT 98
[2022-12-08] MEDS: ACETAMINOPHEN 650 MG/20 ML UDC- SA PATIENTS-PAIN ONLY GT PRN (15:26)
[2022-12-08 20:30] VITALS: TEMP 98
[2022-12-08 20:32] VITALS: O2SAT 99
[2022-12-08] MEDS: MELATONIN 3MG TABLET GT SCH (20:54)
[2022-12-08] MEDS: CRANBERRY 500 MG GT SCH (20:55)
[2022-12-08] MEDS: NUTRISOURCE FIBER 4 GM PACKET GT SCH (20:56)
[2022-12-08] MEDS: PROTEIN SUPPLEMENT (PROSTAT) 30 ML LIQUID GT SCH (20:56)
[2022-12-08] MEDS: MAGNESIUM COMPLEX GT SCH (20:56)
[2022-12-08] MEDS: RIVAROXABAN 15 MG TABLET GT SCH (21:00)
[2022-12-09] MEDS: MULTIVIT, IRON, MIN NO. 8, FA TABLET GT SCH (05:32)
[2022-12-09] MEDS: BACLOFEN 10 MG TABLET GT SCH ×4 (05:32→17:59)
[2022-12-09] MEDS: OMEPRAZOLE 20 MG CAPSULE.DR GT SCH (05:32)
[2022-12-09 07:57] VITALS: O2SAT 98
[2022-12-09 08:00] VITALS: TEMP 98.3
[2022-12-09] MEDS: levETIRAcetam 500 MG/5 ML LIQUID UDC GT SCH ×2 (08:33→20:51)
[2022-12-09] MEDS: ESCITALOPRAM OXALATE 10 MG TABLET GT SCH (08:33)
[2022-12-09] MEDS: VALPROIC ACID 250 MG/5 ML LIQUID UDC GT SCH ×3 (08:33→20:50)
[2022-12-09] MEDS: DOCUSATE SODIUM 100 MG/10 ML LIQUID UDC GT SCH (08:33)
[2022-12-09] MEDS: busPIRone 10 MG TABLET GT SCH ×3 (08:33→16:49)
[2022-12-09] MEDS: POLYVINYL ALCOHOL OPHT DROPS 15 ML BOTTLE EACHEYE SCH ×3 (08:33→16:49)
[2022-12-09] MEDS: MIRALAX 17 GM POWD.PACK GT SCH (08:33)
[2022-12-09] MEDS: OMEGA-3 FATTY ACIDS/FISH OIL CAPSULE GT SCH (08:33)
[2022-12-09] MEDS: ACIDOPHILUS/BULGARICUS CHEW TAB GT SCH ×2 (08:33→20:51)
[2022-12-09] MEDS: REMEDY ESSENTIAL ZINC PASTE 113 GM TP SCH ×2 (08:34→20:51)
[2022-12-09] MEDS: POTASSIUM CHLORIDE 40 MEQ/30 ML LIQUID UDC GT SCH (08:34)
[2022-12-09] MEDS: HYDROGEN PEROXIDE 3% 118 ML BOTTLE TP SCH ×2 (09:05→19:07)
[2022-12-09] MEDS: NEOMY/BACITRA/POLYMYXIN B OINT UD PACKET TP SCH ×2 (12:04→20:51)
[2022-12-09] MEDS: NUTRISOURCE FIBER 4 GM PACKET GT SCH (20:51)
[2022-12-09] MEDS: PROTEIN SUPPLEMENT (PROSTAT) 30 ML LIQUID GT SCH (20:51)
[2022-12-09] MEDS: MELATONIN 3MG TABLET GT SCH (20:51)
[2022-12-09] MEDS: MAGNESIUM COMPLEX GT SCH (20:51)
[2022-12-09] MEDS: CRANBERRY 500 MG GT SCH (20:51)
[2022-12-09] MEDS: RIVAROXABAN 15 MG TABLET GT SCH (21:00)
[2022-12-09 22:48] VITALS: O2SAT 99
[2022-12-10 01:02] VITALS: TEMP 98.6
[2022-12-10] MEDS: OMEPRAZOLE 20 MG CAPSULE.DR GT SCH (05:14)
[2022-12-10] MEDS: MULTIVIT, IRON, MIN NO. 8, FA TABLET GT SCH (05:14)
[2022-12-10] MEDS: BACLOFEN 10 MG TABLET GT SCH ×4 (05:14→17:07)
[2022-12-10] MEDS: TWOCAL HN 1,000 ML LIQUID GT PRN (06:34)
[2022-12-10 07:29] VITALS: TEMP 97.2
[2022-12-10] MEDS: VALPROIC ACID 250 MG/5 ML LIQUID UDC GT SCH ×3 (08:00→21:25)
[2022-12-10] MEDS: HYDROGEN PEROXIDE 3% 118 ML BOTTLE TP SCH ×2 (09:00→19:12)
[2022-12-10] MEDS: POLYVINYL ALCOHOL OPHT DROPS 15 ML BOTTLE EACHEYE SCH ×3 (09:14→17:07)
[2022-12-10] MEDS: busPIRone 10 MG TABLET GT SCH ×3 (09:15→17:07)
[2022-12-10] MEDS: DOCUSATE SODIUM 100 MG/10 ML LIQUID UDC GT SCH (09:18)
[2022-12-10] MEDS: ACIDOPHILUS/BULGARICUS CHEW TAB GT SCH ×2 (09:18→21:25)
[2022-12-10] MEDS: OMEGA-3 FATTY ACIDS/FISH OIL CAPSULE GT SCH (09:18)
[2022-12-10] MEDS: levETIRAcetam 500 MG/5 ML LIQUID UDC GT SCH ×2 (09:19→21:26)
[2022-12-10] MEDS: ESCITALOPRAM OXALATE 10 MG TABLET GT SCH (09:20)
[2022-12-10] MEDS: MIRALAX 17 GM POWD.PACK GT SCH (09:20)
[2022-12-10] MEDS: POTASSIUM CHLORIDE 40 MEQ/30 ML LIQUID UDC GT SCH (09:21)
[2022-12-10] MEDS: NEOMY/BACITRA/POLYMYXIN B OINT UD PACKET TP SCH ×2 (09:22→21:27)
[2022-12-10] MEDS: REMEDY ESSENTIAL ZINC PASTE 113 GM TP SCH ×2 (09:22→21:27)
[2022-12-10 11:01] VITALS: O2SAT 98
[2022-12-10 14:50] VITALS: O2SAT 98
[2022-12-10 19:50] VITALS: O2SAT 99
[2022-12-10 21:11] VITALS: TEMP 98.2
[2022-12-10] MEDS: MELATONIN 3MG TABLET GT SCH (21:25)
[2022-12-10] MEDS: MAGNESIUM COMPLEX GT SCH (21:26)
[2022-12-10] MEDS: NUTRISOURCE FIBER 4 GM PACKET GT SCH (21:26)
[2022-12-10] MEDS: CRANBERRY 500 MG GT SCH (21:26)
[2022-12-10] MEDS: PROTEIN SUPPLEMENT (PROSTAT) 30 ML LIQUID GT SCH (21:27)
[2022-12-10] MEDS: RIVAROXABAN 15 MG TABLET GT SCH (21:45)
[2022-12-11] MEDS: BACLOFEN 10 MG TABLET GT SCH ×4 (00:23→17:33)
[2022-12-11] MEDS: MULTIVIT, IRON, MIN NO. 8, FA TABLET GT SCH (05:40)
[2022-12-11] MEDS: OMEPRAZOLE 20 MG CAPSULE.DR GT SCH (05:40)
[2022-12-11] MEDS: TWOCAL HN 1,000 ML LIQUID GT PRN (05:40)
[2022-12-11 07:22] VITALS: TEMP 97.2
[2022-12-11] MEDS: VALPROIC ACID 250 MG/5 ML LIQUID UDC GT SCH ×3 (08:53→21:32)
[2022-12-11] MEDS: POLYVINYL ALCOHOL OPHT DROPS 15 ML BOTTLE EACHEYE SCH ×3 (08:53→17:32)
[2022-12-11] MEDS: DOCUSATE SODIUM 100 MG/10 ML LIQUID UDC GT SCH (08:53)
[2022-12-11] MEDS: busPIRone 10 MG TABLET GT SCH ×3 (08:53→17:32)
[2022-12-11] MEDS: ACIDOPHILUS/BULGARICUS CHEW TAB GT SCH ×2 (08:54→21:33)
[2022-12-11] MEDS: OMEGA-3 FATTY ACIDS/FISH OIL CAPSULE GT SCH (08:54)
[2022-12-11] MEDS: levETIRAcetam 500 MG/5 ML LIQUID UDC GT SCH ×2 (08:55→21:34)
[2022-12-11] MEDS: ESCITALOPRAM OXALATE 10 MG TABLET GT SCH (08:55)
[2022-12-11] MEDS: MIRALAX 17 GM POWD.PACK GT SCH (08:55)
[2022-12-11] MEDS: COAL TAR TOP SCH (08:56)
[2022-12-11] MEDS: NEOMY/BACITRA/POLYMYXIN B OINT UD PACKET TP SCH ×2 (08:56→21:34)
[2022-12-11] MEDS: POTASSIUM CHLORIDE 40 MEQ/30 ML LIQUID UDC GT SCH (08:56)
[2022-12-11] MEDS: REMEDY ESSENTIAL ZINC PASTE 113 GM TP SCH ×2 (08:56→21:34)
[2022-12-11 09:00] VITALS: O2SAT 98
[2022-12-11] MEDS: HYDROGEN PEROXIDE 3% 118 ML BOTTLE TP SCH ×2 (09:00→19:19)
[2022-12-11 20:00] VITALS: TEMP 98.4; O2SAT 99
[2022-12-11] MEDS: RIVAROXABAN 15 MG TABLET GT SCH (21:00)
[2022-12-11] MEDS: MELATONIN 3MG TABLET GT SCH (21:33)
[2022-12-11] MEDS: PROTEIN SUPPLEMENT (PROSTAT) 30 ML LIQUID GT SCH (21:34)
[2022-12-11] MEDS: CRANBERRY 500 MG GT SCH (21:34)
[2022-12-11] MEDS: NUTRISOURCE FIBER 4 GM PACKET GT SCH (21:34)
[2022-12-11] MEDS: MAGNESIUM COMPLEX GT SCH (21:34)
[2022-12-12] MEDS: BACLOFEN 10 MG TABLET GT SCH ×4 (00:46→18:09)
[2022-12-12] MEDS: TWOCAL HN 1,000 ML LIQUID GT PRN (02:00)
[2022-12-12] MEDS: MULTIVIT, IRON, MIN NO. 8, FA TABLET GT SCH (05:39)
[2022-12-12] MEDS: OMEPRAZOLE 20 MG CAPSULE.DR GT SCH (05:39)
[2022-12-12 07:54] VITALS: O2SAT 98
[2022-12-12 08:00] VITALS: TEMP 97.8
[2022-12-12] MEDS: VALPROIC ACID 250 MG/5 ML LIQUID UDC GT SCH ×3 (08:45→21:00)
[2022-12-12] MEDS: POLYVINYL ALCOHOL OPHT DROPS 15 ML BOTTLE EACHEYE SCH ×3 (08:46→17:00)
[2022-12-12] MEDS: busPIRone 10 MG TABLET GT SCH ×3 (08:47→17:00)
[2022-12-12] MEDS: OMEGA-3 FATTY ACIDS/FISH OIL CAPSULE GT SCH (08:48)
[2022-12-12] MEDS: ACIDOPHILUS/BULGARICUS CHEW TAB GT SCH ×2 (08:48→21:00)
[2022-12-12] MEDS: DOCUSATE SODIUM 100 MG/10 ML LIQUID UDC GT SCH (08:48)
[2022-12-12] MEDS: ESCITALOPRAM OXALATE 10 MG TABLET GT SCH (08:50)
[2022-12-12] MEDS: levETIRAcetam 500 MG/5 ML LIQUID UDC GT SCH ×2 (08:50→21:00)
[2022-12-12] MEDS: MIRALAX 17 GM POWD.PACK GT SCH (08:51)
[2022-12-12] MEDS: POTASSIUM CHLORIDE 40 MEQ/30 ML LIQUID UDC GT SCH (08:52)
[2022-12-12] MEDS: NEOMY/BACITRA/POLYMYXIN B OINT UD PACKET TP SCH ×2 (08:53→21:00)
[2022-12-12] MEDS: REMEDY ESSENTIAL ZINC PASTE 113 GM TP SCH ×2 (08:53→21:00)
[2022-12-12] MEDS: HYDROGEN PEROXIDE 3% 118 ML BOTTLE TP SCH ×2 (08:56→19:04)
[2022-12-12 19:45] VITALS: O2SAT 99
[2022-12-12 20:00] VITALS: TEMP 97.6
[2022-12-12] MEDS: NUTRISOURCE FIBER 4 GM PACKET GT SCH (21:00)
[2022-12-12] MEDS: MELATONIN 3MG TABLET GT SCH (21:00)
[2022-12-12] MEDS: CRANBERRY 500 MG GT SCH (21:00)
[2022-12-12] MEDS: RIVAROXABAN 15 MG TABLET GT SCH (21:00)
[2022-12-12] MEDS: PROTEIN SUPPLEMENT (PROSTAT) 30 ML LIQUID GT SCH (21:00)
[2022-12-12] MEDS: MAGNESIUM COMPLEX GT SCH (21:00)
[2022-12-13] MEDS: BACLOFEN 10 MG TABLET GT SCH ×4 (00:49→18:04)
[2022-12-13] MEDS: MULTIVIT, IRON, MIN NO. 8, FA TABLET GT SCH (06:42)
[2022-12-13] MEDS: OMEPRAZOLE 20 MG CAPSULE.DR GT SCH (06:42)
[2022-12-13] MEDS: HYDROGEN PEROXIDE 3% 118 ML BOTTLE TP SCH ×2 (07:30→21:06)
[2022-12-13 08:00] VITALS: TEMP 98.2
[2022-12-13] MEDS: VALPROIC ACID 250 MG/5 ML LIQUID UDC GT SCH ×3 (08:00→21:00)
[2022-12-13] MEDS: POLYVINYL ALCOHOL OPHT DROPS 15 ML BOTTLE EACHEYE SCH ×3 (09:05→16:33)
[2022-12-13] MEDS: OMEGA-3 FATTY ACIDS/FISH OIL CAPSULE GT SCH (09:05)
[2022-12-13] MEDS: REMEDY ESSENTIAL ZINC PASTE 113 GM TP SCH ×2 (09:05→21:59)
[2022-12-13] MEDS: POTASSIUM CHLORIDE 40 MEQ/30 ML LIQUID UDC GT SCH (09:05)
[2022-12-13] MEDS: DOCUSATE SODIUM 100 MG/10 ML LIQUID UDC GT SCH (09:05)
[2022-12-13] MEDS: levETIRAcetam 500 MG/5 ML LIQUID UDC GT SCH ×2 (09:05→21:00)
[2022-12-13] MEDS: ESCITALOPRAM OXALATE 10 MG TABLET GT SCH (09:05)
[2022-12-13] MEDS: ACIDOPHILUS/BULGARICUS CHEW TAB GT SCH ×2 (09:05→21:00)
[2022-12-13] MEDS: busPIRone 10 MG TABLET GT SCH ×3 (09:05→16:33)
[2022-12-13] MEDS: NEOMY/BACITRA/POLYMYXIN B OINT UD PACKET TP SCH ×2 (09:05→21:59)
[2022-12-13] MEDS: MIRALAX 17 GM POWD.PACK GT SCH (09:05)
[2022-12-13 10:45] VITALS: O2SAT 98
[2022-12-13 20:55] VITALS: O2SAT 98
[2022-12-13 20:57] VITALS: TEMP 98.2
[2022-12-13] MEDS: MELATONIN 3MG TABLET GT SCH (21:00)
[2022-12-13] MEDS: RIVAROXABAN 15 MG TABLET GT SCH (21:00)
[2022-12-13] MEDS: CRANBERRY 500 MG GT SCH (21:58)
[2022-12-13] MEDS: MAGNESIUM COMPLEX GT SCH (21:58)
[2022-12-13] MEDS: PROTEIN SUPPLEMENT (PROSTAT) 30 ML LIQUID GT SCH (21:58)
[2022-12-13] MEDS: NUTRISOURCE FIBER 4 GM PACKET GT SCH (21:58)
[2022-12-14] MEDS: BACLOFEN 10 MG TABLET GT SCH ×4 (00:18→17:22)
[2022-12-14] MEDS: MULTIVIT, IRON, MIN NO. 8, FA TABLET GT SCH (05:49)
[2022-12-14] MEDS: OMEPRAZOLE 20 MG CAPSULE.DR GT SCH (05:49)
[2022-12-14] MEDS: VALPROIC ACID 250 MG/5 ML LIQUID UDC GT SCH ×3 (08:00→21:00)
[2022-12-14 08:57] VITALS: TEMP 98.7
[2022-12-14] MEDS: HYDROGEN PEROXIDE 3% 118 ML BOTTLE TP SCH ×2 (09:00→20:06)
[2022-12-14] MEDS: OMEGA-3 FATTY ACIDS/FISH OIL CAPSULE GT SCH (09:28)
[2022-12-14] MEDS: ESCITALOPRAM OXALATE 10 MG TABLET GT SCH (09:28)
[2022-12-14] MEDS: MIRALAX 17 GM POWD.PACK GT SCH (09:28)
[2022-12-14] MEDS: ACIDOPHILUS/BULGARICUS CHEW TAB GT SCH ×2 (09:28→21:00)
[2022-12-14] MEDS: NEOMY/BACITRA/POLYMYXIN B OINT UD PACKET TP SCH ×2 (09:28→21:00)
[2022-12-14] MEDS: POLYVINYL ALCOHOL OPHT DROPS 15 ML BOTTLE EACHEYE SCH ×3 (09:28→17:22)
[2022-12-14] MEDS: REMEDY ESSENTIAL ZINC PASTE 113 GM TP SCH ×2 (09:28→21:00)
[2022-12-14] MEDS: POTASSIUM CHLORIDE 40 MEQ/30 ML LIQUID UDC GT SCH (09:28)
[2022-12-14] MEDS: levETIRAcetam 500 MG/5 ML LIQUID UDC GT SCH ×2 (09:28→21:00)
[2022-12-14] MEDS: busPIRone 10 MG TABLET GT SCH ×3 (09:28→17:22)
[2022-12-14] MEDS: DOCUSATE SODIUM 100 MG/10 ML LIQUID UDC GT SCH (09:28)
[2022-12-14 14:25] VITALS: O2SAT 98
[2022-12-14] MEDS: MELATONIN 3MG TABLET GT SCH (21:00)
[2022-12-14] MEDS: NUTRISOURCE FIBER 4 GM PACKET GT SCH (21:00)
[2022-12-14] MEDS: MAGNESIUM COMPLEX GT SCH (21:00)
[2022-12-14] MEDS: CRANBERRY 500 MG GT SCH (21:00)
[2022-12-14] MEDS: PROTEIN SUPPLEMENT (PROSTAT) 30 ML LIQUID GT SCH (21:00)
[2022-12-14] MEDS: RIVAROXABAN 15 MG TABLET GT SCH (21:00)
[2022-12-14 21:24] VITALS: O2SAT 98
[2022-12-14 21:36] VITALS: TEMP 97.8
[2022-12-15] MEDS: BACLOFEN 10 MG TABLET GT SCH ×4 (00:17→17:08)
[2022-12-15] MEDS: MULTIVIT, IRON, MIN NO. 8, FA TABLET GT SCH (06:22)
[2022-12-15] MEDS: OMEPRAZOLE 20 MG CAPSULE.DR GT SCH (06:22)
[2022-12-15] MEDS: NEOMY/BACITRA/POLYMYXIN B OINT UD PACKET TP SCH ×2 (08:39→21:49)
[2022-12-15] MEDS: ACIDOPHILUS/BULGARICUS CHEW TAB GT SCH ×2 (08:39→21:47)
[2022-12-15] MEDS: REMEDY ESSENTIAL ZINC PASTE 113 GM TP SCH ×2 (08:39→21:49)
[2022-12-15] MEDS: POLYVINYL ALCOHOL OPHT DROPS 15 ML BOTTLE EACHEYE SCH ×3 (08:39→17:08)
[2022-12-15] MEDS: levETIRAcetam 500 MG/5 ML LIQUID UDC GT SCH ×2 (08:39→21:47)
[2022-12-15] MEDS: OMEGA-3 FATTY ACIDS/FISH OIL CAPSULE GT SCH (08:39)
[2022-12-15] MEDS: VALPROIC ACID 250 MG/5 ML LIQUID UDC GT SCH ×3 (08:39→21:47)
[2022-12-15] MEDS: busPIRone 10 MG TABLET GT SCH ×3 (08:39→17:08)
[2022-12-15] MEDS: COAL TAR TOP SCH (08:39)
[2022-12-15] MEDS: POTASSIUM CHLORIDE 40 MEQ/30 ML LIQUID UDC GT SCH (08:39)
[2022-12-15] MEDS: MIRALAX 17 GM POWD.PACK GT SCH (08:39)
[2022-12-15] MEDS: ESCITALOPRAM OXALATE 10 MG TABLET GT SCH (08:39)
[2022-12-15] MEDS: DOCUSATE SODIUM 100 MG/10 ML LIQUID UDC GT SCH (08:39)
[2022-12-15] MEDS: HYDROGEN PEROXIDE 3% 118 ML BOTTLE TP SCH ×2 (09:00→21:00)
[2022-12-15 10:41] VITALS: O2SAT 98
[2022-12-15 13:08] VITALS: TEMP 97.3
[2022-12-15 20:00] VITALS: TEMP 97.8
[2022-12-15 21:15] VITALS: O2SAT 98
[2022-12-15] MEDS: MELATONIN 3MG TABLET GT SCH (21:47)
[2022-12-15] MEDS: CRANBERRY 500 MG GT SCH (21:47)
[2022-12-15] MEDS: NUTRISOURCE FIBER 4 GM PACKET GT SCH (21:48)
[2022-12-15] MEDS: MAGNESIUM COMPLEX GT SCH (21:48)
[2022-12-15] MEDS: PROTEIN SUPPLEMENT (PROSTAT) 30 ML LIQUID GT SCH (21:48)
[2022-12-15] MEDS: RIVAROXABAN 15 MG TABLET GT SCH (21:48)
[2022-12-16] MEDS: BACLOFEN 10 MG TABLET GT SCH ×4 (00:31→17:20)
[2022-12-16] MEDS: OMEPRAZOLE 20 MG CAPSULE.DR GT SCH (06:34)
[2022-12-16] MEDS: TWOCAL HN 1,000 ML LIQUID GT PRN (06:34)
[2022-12-16] MEDS: MULTIVIT, IRON, MIN NO. 8, FA TABLET GT SCH (06:34)
[2022-12-16] MEDS: HYDROGEN PEROXIDE 3% 118 ML BOTTLE TP SCH ×2 (08:11→20:26)
[2022-12-16] MEDS: VALPROIC ACID 250 MG/5 ML LIQUID UDC GT SCH ×3 (08:44→21:00)
[2022-12-16] MEDS: DOCUSATE SODIUM 100 MG/10 ML LIQUID UDC GT SCH (08:46)
[2022-12-16] MEDS: POLYVINYL ALCOHOL OPHT DROPS 15 ML BOTTLE EACHEYE SCH ×3 (08:46→16:43)
[2022-12-16] MEDS: busPIRone 10 MG TABLET GT SCH ×3 (08:46→16:45)
[2022-12-16] MEDS: OMEGA-3 FATTY ACIDS/FISH OIL CAPSULE GT SCH (08:49)
[2022-12-16] MEDS: levETIRAcetam 500 MG/5 ML LIQUID UDC GT SCH ×2 (08:51→21:00)
[2022-12-16] MEDS: ACIDOPHILUS/BULGARICUS CHEW TAB GT SCH ×2 (08:51→21:00)
[2022-12-16] MEDS: ESCITALOPRAM OXALATE 10 MG TABLET GT SCH (08:52)
[2022-12-16] MEDS: POTASSIUM CHLORIDE 40 MEQ/30 ML LIQUID UDC GT SCH (08:53)
[2022-12-16] MEDS: MIRALAX 17 GM POWD.PACK GT SCH (08:53)
[2022-12-16] MEDS: REMEDY ESSENTIAL ZINC PASTE 113 GM TP SCH ×2 (08:54→21:00)
[2022-12-16] MEDS: NEOMY/BACITRA/POLYMYXIN B OINT UD PACKET TP SCH ×2 (08:54→21:00)
[2022-12-16 13:22] VITALS: O2SAT 98
[2022-12-16 20:10] VITALS: O2SAT 99
[2022-12-16 20:29] VITALS: TEMP 98.5
[2022-12-16] MEDS: CRANBERRY 500 MG GT SCH (21:00)
[2022-12-16] MEDS: NUTRISOURCE FIBER 4 GM PACKET GT SCH (21:00)
[2022-12-16] MEDS: MELATONIN 3MG TABLET GT SCH (21:00)
[2022-12-16] MEDS: PROTEIN SUPPLEMENT (PROSTAT) 30 ML LIQUID GT SCH (21:00)
[2022-12-16] MEDS: MAGNESIUM COMPLEX GT SCH (21:00)
[2022-12-16] MEDS: RIVAROXABAN 15 MG TABLET GT SCH (22:00)
[2022-12-17] MEDS: BACLOFEN 10 MG TABLET GT SCH ×4 (00:23→17:01)
[2022-12-17] MEDS: OMEPRAZOLE 20 MG CAPSULE.DR GT SCH (05:10)
[2022-12-17] MEDS: MULTIVIT, IRON, MIN NO. 8, FA TABLET GT SCH (05:10)
[2022-12-17 07:17] VITALS: TEMP 97.2
[2022-12-17 07:52] VITALS: O2SAT 98
[2022-12-17] MEDS: VALPROIC ACID 250 MG/5 ML LIQUID UDC GT SCH ×3 (08:51→21:00)
[2022-12-17] MEDS: POLYVINYL ALCOHOL OPHT DROPS 15 ML BOTTLE EACHEYE SCH ×3 (08:52→16:34)
[2022-12-17] MEDS: DOCUSATE SODIUM 100 MG/10 ML LIQUID UDC GT SCH (08:53)
[2022-12-17] MEDS: busPIRone 10 MG TABLET GT SCH ×3 (08:53→16:35)
[2022-12-17] MEDS: OMEGA-3 FATTY ACIDS/FISH OIL CAPSULE GT SCH (08:54)
[2022-12-17] MEDS: levETIRAcetam 500 MG/5 ML LIQUID UDC GT SCH ×2 (08:55→21:00)
[2022-12-17] MEDS: ACIDOPHILUS/BULGARICUS CHEW TAB GT SCH ×2 (08:55→21:00)
[2022-12-17] MEDS: ESCITALOPRAM OXALATE 10 MG TABLET GT SCH (08:55)
[2022-12-17] MEDS: MIRALAX 17 GM POWD.PACK GT SCH (08:55)
[2022-12-17] MEDS: REMEDY ESSENTIAL ZINC PASTE 113 GM TP SCH ×2 (08:56→21:00)
[2022-12-17] MEDS: POTASSIUM CHLORIDE 40 MEQ/30 ML LIQUID UDC GT SCH (08:56)
[2022-12-17] MEDS: NEOMY/BACITRA/POLYMYXIN B OINT UD PACKET TP SCH ×2 (08:57→21:00)
[2022-12-17] MEDS: HYDROGEN PEROXIDE 3% 118 ML BOTTLE TP SCH ×2 (09:00→20:11)
[2022-12-17 15:33] VITALS: O2SAT 98
[2022-12-17 20:00] VITALS: O2SAT 99
[2022-12-17] MEDS: PROTEIN SUPPLEMENT (PROSTAT) 30 ML LIQUID GT SCH (21:00)
[2022-12-17] MEDS: MAGNESIUM COMPLEX GT SCH (21:00)
[2022-12-17] MEDS: MELATONIN 3MG TABLET GT SCH (21:00)
[2022-12-17] MEDS: NUTRISOURCE FIBER 4 GM PACKET GT SCH (21:00)
[2022-12-17] MEDS: RIVAROXABAN 15 MG TABLET GT SCH (21:00)
[2022-12-17] MEDS: CRANBERRY 500 MG GT SCH (21:00)
[2022-12-17 21:50] VITALS: TEMP 99.1
[2022-12-18] MEDS: BACLOFEN 10 MG TABLET GT SCH ×5 (00:17→23:05)
[2022-12-18] MEDS: TWOCAL HN 1,000 ML LIQUID GT PRN (03:13)
[2022-12-18] MEDS: MULTIVIT, IRON, MIN NO. 8, FA TABLET GT SCH (05:17)
[2022-12-18] MEDS: OMEPRAZOLE 20 MG CAPSULE.DR GT SCH (05:17)
[2022-12-18 07:43] VITALS: TEMP 97
[2022-12-18] MEDS: HYDROGEN PEROXIDE 3% 118 ML BOTTLE TP SCH ×2 (08:28→19:06)
[2022-12-18] MEDS: POLYVINYL ALCOHOL OPHT DROPS 15 ML BOTTLE EACHEYE SCH ×3 (08:48→17:07)
[2022-12-18] MEDS: VALPROIC ACID 250 MG/5 ML LIQUID UDC GT SCH ×3 (08:48→20:37)
[2022-12-18] MEDS: REMEDY ESSENTIAL ZINC PASTE 113 GM TP SCH ×2 (08:49→20:37)
[2022-12-18] MEDS: MIRALAX 17 GM POWD.PACK GT SCH (08:49)
[2022-12-18] MEDS: DOCUSATE SODIUM 100 MG/10 ML LIQUID UDC GT SCH (08:49)
[2022-12-18] MEDS: busPIRone 10 MG TABLET GT SCH ×3 (08:49→17:10)
[2022-12-18] MEDS: ESCITALOPRAM OXALATE 10 MG TABLET GT SCH (08:49)
[2022-12-18] MEDS: COAL TAR TOP SCH (08:49)
[2022-12-18] MEDS: POTASSIUM CHLORIDE 40 MEQ/30 ML LIQUID UDC GT SCH (08:49)
[2022-12-18] MEDS: NEOMY/BACITRA/POLYMYXIN B OINT UD PACKET TP SCH ×2 (08:49→20:37)
[2022-12-18] MEDS: OMEGA-3 FATTY ACIDS/FISH OIL CAPSULE GT SCH (08:49)
[2022-12-18] MEDS: ACIDOPHILUS/BULGARICUS CHEW TAB GT SCH ×2 (08:49→20:37)
[2022-12-18] MEDS: levETIRAcetam 500 MG/5 ML LIQUID UDC GT SCH ×2 (08:49→20:37)
[2022-12-18 10:35] VITALS: O2SAT 98
[2022-12-18 20:00] VITALS: TEMP 98.4
[2022-12-18] MEDS: NUTRISOURCE FIBER 4 GM PACKET GT SCH (20:37)
[2022-12-18] MEDS: MELATONIN 3MG TABLET GT SCH (20:37)
[2022-12-18] MEDS: CRANBERRY 500 MG GT SCH (20:37)
[2022-12-18] MEDS: MAGNESIUM COMPLEX GT SCH (20:37)
[2022-12-18] MEDS: PROTEIN SUPPLEMENT (PROSTAT) 30 ML LIQUID GT SCH (20:37)
[2022-12-18] MEDS: RIVAROXABAN 15 MG TABLET GT SCH (21:00)
[2022-12-19] MEDS: BACLOFEN 10 MG TABLET GT SCH ×4 (05:53→23:27)
[2022-12-19] MEDS: MULTIVIT, IRON, MIN NO. 8, FA TABLET GT SCH (05:53)
[2022-12-19] MEDS: OMEPRAZOLE 20 MG CAPSULE.DR GT SCH (05:53)
[2022-12-19 08:00] VITALS: TEMP 97.6
[2022-12-19] MEDS: VALPROIC ACID 250 MG/5 ML LIQUID UDC GT SCH ×3 (08:00→21:48)
[2022-12-19] MEDS: HYDROGEN PEROXIDE 3% 118 ML BOTTLE TP SCH ×2 (08:24→19:20)
[2022-12-19] MEDS: busPIRone 10 MG TABLET GT SCH ×3 (09:07→17:15)
[2022-12-19] MEDS: POLYVINYL ALCOHOL OPHT DROPS 15 ML BOTTLE EACHEYE SCH ×3 (09:07→17:15)
[2022-12-19] MEDS: ACIDOPHILUS/BULGARICUS CHEW TAB GT SCH ×2 (09:09→21:48)
[2022-12-19] MEDS: levETIRAcetam 500 MG/5 ML LIQUID UDC GT SCH ×2 (09:09→21:48)
[2022-12-19] MEDS: OMEGA-3 FATTY ACIDS/FISH OIL CAPSULE GT SCH (09:09)
[2022-12-19] MEDS: DOCUSATE SODIUM 100 MG/10 ML LIQUID UDC GT SCH (09:09)
[2022-12-19] MEDS: MIRALAX 17 GM POWD.PACK GT SCH (09:10)
[2022-12-19] MEDS: POTASSIUM CHLORIDE 40 MEQ/30 ML LIQUID UDC GT SCH (09:10)
[2022-12-19] MEDS: ESCITALOPRAM OXALATE 10 MG TABLET GT SCH (09:10)
[2022-12-19] MEDS: REMEDY ESSENTIAL ZINC PASTE 113 GM TP SCH ×2 (09:11→21:49)
[2022-12-19 13:38] VITALS: O2SAT 98
[2022-12-19 21:12] VITALS: O2SAT 98
[2022-12-19] MEDS: MELATONIN 3MG TABLET GT SCH (21:48)
[2022-12-19] MEDS: MAGNESIUM COMPLEX GT SCH (21:48)
[2022-12-19] MEDS: CRANBERRY 500 MG GT SCH (21:48)
[2022-12-19] MEDS: NUTRISOURCE FIBER 4 GM PACKET GT SCH (21:48)
[2022-12-19] MEDS: PROTEIN SUPPLEMENT (PROSTAT) 30 ML LIQUID GT SCH (21:48)
[2022-12-19] MEDS: RIVAROXABAN 15 MG TABLET GT SCH (21:49)
[2022-12-19 22:30] VITALS: TEMP 98.5
[2022-12-20] MEDS: TWOCAL HN 1,000 ML LIQUID GT PRN (01:37)
[2022-12-20] MEDS: MULTIVIT, IRON, MIN NO. 8, FA TABLET GT SCH (05:33)
[2022-12-20] MEDS: BACLOFEN 10 MG TABLET GT SCH ×4 (05:33→23:09)
[2022-12-20] MEDS: OMEPRAZOLE 20 MG CAPSULE.DR GT SCH (05:33)
[2022-12-20] MEDS: levETIRAcetam 500 MG/5 ML LIQUID UDC GT SCH ×2 (08:16→20:55)
[2022-12-20] MEDS: REMEDY ESSENTIAL ZINC PASTE 113 GM TP SCH ×2 (08:16→20:59)
[2022-12-20] MEDS: DOCUSATE SODIUM 100 MG/10 ML LIQUID UDC GT SCH (08:16)
[2022-12-20] MEDS: ACIDOPHILUS/BULGARICUS CHEW TAB GT SCH ×2 (08:16→20:54)
[2022-12-20] MEDS: MIRALAX 17 GM POWD.PACK GT SCH (08:16)
[2022-12-20] MEDS: OMEGA-3 FATTY ACIDS/FISH OIL CAPSULE GT SCH (08:16)
[2022-12-20] MEDS: POTASSIUM CHLORIDE 40 MEQ/30 ML LIQUID UDC GT SCH (08:16)
[2022-12-20] MEDS: VALPROIC ACID 250 MG/5 ML LIQUID UDC GT SCH ×3 (08:16→20:53)
[2022-12-20] MEDS: POLYVINYL ALCOHOL OPHT DROPS 15 ML BOTTLE EACHEYE SCH ×3 (08:16→17:11)
[2022-12-20] MEDS: ESCITALOPRAM OXALATE 10 MG TABLET GT SCH (08:16)
[2022-12-20] MEDS: busPIRone 10 MG TABLET GT SCH ×3 (08:16→17:11)
[2022-12-20 10:10] VITALS: O2SAT 98
[2022-12-20] MEDS: HYDROGEN PEROXIDE 3% 118 ML BOTTLE TP SCH ×2 (10:42→20:15)
[2022-12-20 11:28] VITALS: TEMP 97.2
[2022-12-20] MEDS: MELATONIN 3MG TABLET GT SCH (20:54)
[2022-12-20] MEDS: CRANBERRY 500 MG GT SCH (20:55)
[2022-12-20] MEDS: MAGNESIUM COMPLEX GT SCH (20:56)
[2022-12-20] MEDS: NUTRISOURCE FIBER 4 GM PACKET GT SCH (20:57)
[2022-12-20] MEDS: PROTEIN SUPPLEMENT (PROSTAT) 30 ML LIQUID GT SCH (20:57)
[2022-12-20] MEDS: RIVAROXABAN 15 MG TABLET GT SCH (20:59)
[2022-12-20 21:00] VITALS: TEMP 98
[2022-12-20 21:15] VITALS: O2SAT 98
[2022-12-21] MEDS: OMEPRAZOLE 20 MG CAPSULE.DR GT SCH (06:00)
[2022-12-21] MEDS: BACLOFEN 10 MG TABLET GT SCH ×3 (06:00→17:17)
[2022-12-21] MEDS: MULTIVIT, IRON, MIN NO. 8, FA TABLET GT SCH (06:00)
[2022-12-21] MEDS: HYDROGEN PEROXIDE 3% 118 ML BOTTLE TP SCH ×2 (07:27→19:25)
[2022-12-21 08:12] VITALS: TEMP 98.4
[2022-12-21] MEDS: POLYVINYL ALCOHOL OPHT DROPS 15 ML BOTTLE EACHEYE SCH ×3 (08:24→16:55)
[2022-12-21] MEDS: OMEGA-3 FATTY ACIDS/FISH OIL CAPSULE GT SCH (08:24)
[2022-12-21] MEDS: POTASSIUM CHLORIDE 40 MEQ/30 ML LIQUID UDC GT SCH (08:24)
[2022-12-21] MEDS: busPIRone 10 MG TABLET GT SCH ×3 (08:24→16:55)
[2022-12-21] MEDS: ESCITALOPRAM OXALATE 10 MG TABLET GT SCH (08:24)
[2022-12-21] MEDS: MIRALAX 17 GM POWD.PACK GT SCH (08:24)
[2022-12-21] MEDS: REMEDY ESSENTIAL ZINC PASTE 113 GM TP SCH ×2 (08:24→21:17)
[2022-12-21] MEDS: ACIDOPHILUS/BULGARICUS CHEW TAB GT SCH ×2 (08:24→21:12)
[2022-12-21] MEDS: DOCUSATE SODIUM 100 MG/10 ML LIQUID UDC GT SCH (08:24)
[2022-12-21] MEDS: VALPROIC ACID 250 MG/5 ML LIQUID UDC GT SCH ×3 (08:24→21:12)
[2022-12-21] MEDS: levETIRAcetam 500 MG/5 ML LIQUID UDC GT SCH ×2 (08:24→21:13)
[2022-12-21 10:30] VITALS: O2SAT 98
[2022-12-21 19:25] VITALS: O2SAT 99
[2022-12-21 20:48] VITALS: TEMP 99.1
[2022-12-21] MEDS: MELATONIN 3MG TABLET GT SCH (21:13)
[2022-12-21] MEDS: RIVAROXABAN 15 MG TABLET GT SCH (21:17)
[2022-12-21] MEDS: CRANBERRY 500 MG GT SCH (21:18)
[2022-12-21] MEDS: MAGNESIUM COMPLEX GT SCH (21:18)
[2022-12-21] MEDS: NUTRISOURCE FIBER 4 GM PACKET GT SCH (21:18)
[2022-12-21] MEDS: PROTEIN SUPPLEMENT (PROSTAT) 30 ML LIQUID GT SCH (21:18)
[2022-12-22] MEDS: BACLOFEN 10 MG TABLET GT SCH ×4 (05:09→17:24)
[2022-12-22] MEDS: MULTIVIT, IRON, MIN NO. 8, FA TABLET GT SCH (05:10)
[2022-12-22] MEDS: OMEPRAZOLE 20 MG CAPSULE.DR GT SCH (05:10)
[2022-12-22 07:30] VITALS: TEMP 97.8
[2022-12-22 07:58] VITALS: O2SAT 98
[2022-12-22] MEDS: HYDROGEN PEROXIDE 3% 118 ML BOTTLE TP SCH ×2 (07:58→21:12)
[2022-12-22] MEDS: VALPROIC ACID 250 MG/5 ML LIQUID UDC GT SCH ×3 (08:00→21:39)
[2022-12-22] MEDS: OMEGA-3 FATTY ACIDS/FISH OIL CAPSULE GT SCH (09:00)
[2022-12-22] MEDS: POTASSIUM CHLORIDE 40 MEQ/30 ML LIQUID UDC GT SCH (09:00)
[2022-12-22] MEDS: COAL TAR TOP SCH (09:00)
[2022-12-22] MEDS: ESCITALOPRAM OXALATE 10 MG TABLET GT SCH (09:00)
[2022-12-22] MEDS: ACIDOPHILUS/BULGARICUS CHEW TAB GT SCH ×2 (09:00→21:39)
[2022-12-22] MEDS: REMEDY ESSENTIAL ZINC PASTE 113 GM TP SCH ×2 (09:00→21:43)
[2022-12-22] MEDS: busPIRone 10 MG TABLET GT SCH ×3 (09:00→17:24)
[2022-12-22] MEDS: levETIRAcetam 500 MG/5 ML LIQUID UDC GT SCH ×2 (09:00→21:41)
[2022-12-22] MEDS: POLYVINYL ALCOHOL OPHT DROPS 15 ML BOTTLE EACHEYE SCH ×3 (09:00→17:24)
[2022-12-22] MEDS: DOCUSATE SODIUM 100 MG/10 ML LIQUID UDC GT SCH (09:00)
[2022-12-22] MEDS: MIRALAX 17 GM POWD.PACK GT SCH (09:00)
[2022-12-22 20:35] VITALS: TEMP 97.4
[2022-12-22 21:12] VITALS: O2SAT 99
[2022-12-22] MEDS: MELATONIN 3MG TABLET GT SCH (21:40)
[2022-12-22] MEDS: CRANBERRY 500 MG GT SCH (21:41)
[2022-12-22] MEDS: MAGNESIUM COMPLEX GT SCH (21:41)
[2022-12-22] MEDS: NUTRISOURCE FIBER 4 GM PACKET GT SCH (21:42)
[2022-12-22] MEDS: PROTEIN SUPPLEMENT (PROSTAT) 30 ML LIQUID GT SCH (21:42)
[2022-12-22] MEDS: RIVAROXABAN 15 MG TABLET GT SCH (21:42)
[2022-12-23] MEDS: BACLOFEN 10 MG TABLET GT SCH ×4 (00:03→17:04)
[2022-12-23] MEDS: MULTIVIT, IRON, MIN NO. 8, FA TABLET GT SCH (06:36)
[2022-12-23] MEDS: OMEPRAZOLE 20 MG CAPSULE.DR GT SCH (06:36)
[2022-12-23] MEDS: VALPROIC ACID 250 MG/5 ML LIQUID UDC GT SCH ×3 (08:00→21:56)
[2022-12-23 08:02] VITALS: O2SAT 98
[2022-12-23] MEDS: POTASSIUM CHLORIDE 40 MEQ/30 ML LIQUID UDC GT SCH (09:00)
[2022-12-23] MEDS: levETIRAcetam 500 MG/5 ML LIQUID UDC GT SCH ×2 (09:00→21:57)
[2022-12-23] MEDS: ACIDOPHILUS/BULGARICUS CHEW TAB GT SCH ×2 (09:00→21:56)
[2022-12-23] MEDS: ESCITALOPRAM OXALATE 10 MG TABLET GT SCH (09:00)
[2022-12-23] MEDS: busPIRone 10 MG TABLET GT SCH ×3 (09:00→17:03)
[2022-12-23] MEDS: POLYVINYL ALCOHOL OPHT DROPS 15 ML BOTTLE EACHEYE SCH ×3 (09:00→17:02)
[2022-12-23] MEDS: REMEDY ESSENTIAL ZINC PASTE 113 GM TP SCH ×2 (09:00→21:00)
[2022-12-23] MEDS: OMEGA-3 FATTY ACIDS/FISH OIL CAPSULE GT SCH (09:00)
[2022-12-23] MEDS: DOCUSATE SODIUM 100 MG/10 ML LIQUID UDC GT SCH (09:00)
[2022-12-23] MEDS: MIRALAX 17 GM POWD.PACK GT SCH (09:00)
[2022-12-23] MEDS: HYDROGEN PEROXIDE 3% 118 ML BOTTLE TP SCH ×2 (09:29→20:42)
[2022-12-23] MEDS: TWOCAL HN 1,000 ML LIQUID GT PRN (19:24)
[2022-12-23 20:00] VITALS: TEMP 98.7
[2022-12-23 20:35] VITALS: O2SAT 99
[2022-12-23] MEDS: MAGNESIUM COMPLEX GT SCH (21:57)
[2022-12-23] MEDS: PROTEIN SUPPLEMENT (PROSTAT) 30 ML LIQUID GT SCH (21:57)
[2022-12-23] MEDS: MELATONIN 3MG TABLET GT SCH (21:57)
[2022-12-23] MEDS: NUTRISOURCE FIBER 4 GM PACKET GT SCH (21:57)
[2022-12-23] MEDS: CRANBERRY 500 MG GT SCH (21:57)
[2022-12-23] MEDS: RIVAROXABAN 15 MG TABLET GT SCH (22:00)
[2022-12-24] MEDS: OMEPRAZOLE 20 MG CAPSULE.DR GT SCH (06:27)
[2022-12-24] MEDS: MULTIVIT, IRON, MIN NO. 8, FA TABLET GT SCH (06:27)
[2022-12-24] MEDS: BACLOFEN 10 MG TABLET GT SCH ×4 (06:27→17:47)
[2022-12-24 07:25] VITALS: TEMP 98.5
[2022-12-24 08:10] VITALS: O2SAT 98
[2022-12-24] MEDS: POLYVINYL ALCOHOL OPHT DROPS 15 ML BOTTLE EACHEYE SCH ×3 (08:36→17:45)
[2022-12-24] MEDS: busPIRone 10 MG TABLET GT SCH ×3 (08:36→17:45)
[2022-12-24] MEDS: VALPROIC ACID 250 MG/5 ML LIQUID UDC GT SCH ×3 (08:36→21:59)
[2022-12-24] MEDS: DOCUSATE SODIUM 100 MG/10 ML LIQUID UDC GT SCH (08:37)
[2022-12-24] MEDS: OMEGA-3 FATTY ACIDS/FISH OIL CAPSULE GT SCH (08:37)
[2022-12-24] MEDS: ACIDOPHILUS/BULGARICUS CHEW TAB GT SCH ×2 (08:38→21:59)
[2022-12-24] MEDS: ESCITALOPRAM OXALATE 10 MG TABLET GT SCH (08:39)
[2022-12-24] MEDS: levETIRAcetam 500 MG/5 ML LIQUID UDC GT SCH ×2 (08:39→21:59)
[2022-12-24] MEDS: POTASSIUM CHLORIDE 40 MEQ/30 ML LIQUID UDC GT SCH (08:40)
[2022-12-24] MEDS: MIRALAX 17 GM POWD.PACK GT SCH (08:40)
[2022-12-24] MEDS: REMEDY ESSENTIAL ZINC PASTE 113 GM TP SCH ×2 (08:41→21:00)
[2022-12-24] MEDS: HYDROGEN PEROXIDE 3% 118 ML BOTTLE TP SCH ×2 (09:00→19:15)
[2022-12-24 15:10] VITALS: O2SAT 98
[2022-12-24 19:55] VITALS: O2SAT 99
[2022-12-24 20:00] VITALS: TEMP 98.6
[2022-12-24] MEDS: RIVAROXABAN 15 MG TABLET GT SCH (21:00)
[2022-12-24] MEDS: CRANBERRY 500 MG GT SCH (21:00)
[2022-12-24] MEDS: NUTRISOURCE FIBER 4 GM PACKET GT SCH (21:00)
[2022-12-24] MEDS: PROTEIN SUPPLEMENT (PROSTAT) 30 ML LIQUID GT SCH (21:00)
[2022-12-24] MEDS: MAGNESIUM COMPLEX GT SCH (21:00)
[2022-12-24] MEDS: MELATONIN 3MG TABLET GT SCH (21:59)
[2022-12-25] MEDS: MULTIVIT, IRON, MIN NO. 8, FA TABLET GT SCH (05:31)
[2022-12-25] MEDS: BACLOFEN 10 MG TABLET GT SCH ×4 (05:31→17:13)
[2022-12-25] MEDS: OMEPRAZOLE 20 MG CAPSULE.DR GT SCH (05:31)
[2022-12-25 07:19] VITALS: TEMP 97.6
[2022-12-25] MEDS: VALPROIC ACID 250 MG/5 ML LIQUID UDC GT SCH ×3 (08:10→21:00)
[2022-12-25] MEDS: busPIRone 10 MG TABLET GT SCH ×3 (08:12→17:13)
[2022-12-25] MEDS: DOCUSATE SODIUM 100 MG/10 ML LIQUID UDC GT SCH (08:12)
[2022-12-25] MEDS: POLYVINYL ALCOHOL OPHT DROPS 15 ML BOTTLE EACHEYE SCH ×3 (08:12→17:13)
[2022-12-25] MEDS: OMEGA-3 FATTY ACIDS/FISH OIL CAPSULE GT SCH (08:13)
[2022-12-25] MEDS: levETIRAcetam 500 MG/5 ML LIQUID UDC GT SCH ×2 (08:13→21:00)
[2022-12-25] MEDS: ACIDOPHILUS/BULGARICUS CHEW TAB GT SCH ×2 (08:13→21:00)
[2022-12-25] MEDS: ESCITALOPRAM OXALATE 10 MG TABLET GT SCH (08:14)
[2022-12-25] MEDS: MIRALAX 17 GM POWD.PACK GT SCH (08:14)
[2022-12-25] MEDS: POTASSIUM CHLORIDE 40 MEQ/30 ML LIQUID UDC GT SCH (08:14)
[2022-12-25] MEDS: COAL TAR TOP SCH (08:16)
[2022-12-25] MEDS: HYDROGEN PEROXIDE 3% 118 ML BOTTLE TP SCH ×2 (09:00→18:27)
[2022-12-25] MEDS: REMEDY ESSENTIAL ZINC PASTE 113 GM TP SCH ×2 (09:56→21:00)
[2022-12-25 10:35] VITALS: O2SAT 99
[2022-12-25 18:27] VITALS: O2SAT 99
[2022-12-25 21:00] VITALS: TEMP 98.4
[2022-12-25] MEDS: MELATONIN 3MG TABLET GT SCH (21:00)
[2022-12-25] MEDS: NUTRISOURCE FIBER 4 GM PACKET GT SCH (21:00)
[2022-12-25] MEDS: CRANBERRY 500 MG GT SCH (21:00)
[2022-12-25] MEDS: PROTEIN SUPPLEMENT (PROSTAT) 30 ML LIQUID GT SCH (21:00)
[2022-12-25] MEDS: RIVAROXABAN 15 MG TABLET GT SCH (21:00)
[2022-12-25] MEDS: MAGNESIUM COMPLEX GT SCH (21:00)
[2022-12-26] MEDS: BACLOFEN 10 MG TABLET GT SCH ×4 (00:15→17:31)
[2022-12-26] MEDS: TWOCAL HN 1,000 ML LIQUID GT PRN (01:07)
[2022-12-26] MEDS: MULTIVIT, IRON, MIN NO. 8, FA TABLET GT SCH (06:03)
[2022-12-26] MEDS: OMEPRAZOLE 20 MG CAPSULE.DR GT SCH (06:03)
[2022-12-26 07:42] VITALS: TEMP 97.1
[2022-12-26] MEDS: VALPROIC ACID 250 MG/5 ML LIQUID UDC GT SCH ×3 (08:25→20:39)
[2022-12-26] MEDS: levETIRAcetam 500 MG/5 ML LIQUID UDC GT SCH ×2 (08:25→20:42)
[2022-12-26] MEDS: DOCUSATE SODIUM 100 MG/10 ML LIQUID UDC GT SCH (08:25)
[2022-12-26] MEDS: POTASSIUM CHLORIDE 40 MEQ/30 ML LIQUID UDC GT SCH (08:25)
[2022-12-26] MEDS: busPIRone 10 MG TABLET GT SCH ×3 (08:25→17:31)
[2022-12-26] MEDS: ESCITALOPRAM OXALATE 10 MG TABLET GT SCH (08:25)
[2022-12-26] MEDS: ACIDOPHILUS/BULGARICUS CHEW TAB GT SCH ×2 (08:25→20:39)
[2022-12-26] MEDS: REMEDY ESSENTIAL ZINC PASTE 113 GM TP SCH ×2 (08:25→20:42)
[2022-12-26] MEDS: POLYVINYL ALCOHOL OPHT DROPS 15 ML BOTTLE EACHEYE SCH ×3 (08:25→17:31)
[2022-12-26] MEDS: MIRALAX 17 GM POWD.PACK GT SCH (08:25)
[2022-12-26] MEDS: HYDROGEN PEROXIDE 3% 118 ML BOTTLE TP SCH ×2 (08:48→23:21)
[2022-12-26 14:08] VITALS: O2SAT 98
[2022-12-26 20:00] VITALS: TEMP 97.7
[2022-12-26 20:14] VITALS: O2SAT 99
[2022-12-26] MEDS: OMEGA-3 FATTY ACIDS/FISH OIL CAPSULE GT SCH (20:39)
[2022-12-26] MEDS: CRANBERRY 500 MG GT SCH (20:40)
[2022-12-26] MEDS: MELATONIN 3MG TABLET GT SCH (20:40)
[2022-12-26] MEDS: PROTEIN SUPPLEMENT (PROSTAT) 30 ML LIQUID GT SCH (20:41)
[2022-12-26] MEDS: NUTRISOURCE FIBER 4 GM PACKET GT SCH (20:41)
[2022-12-26] MEDS: RIVAROXABAN 15 MG TABLET GT SCH (20:50)
[2022-12-26] MEDS: ACETAMINOPHEN 650 MG/20 ML UDC- SA PATIENTS-PAIN ONLY GT PRN (20:52)
[2022-12-26] MEDS: MAGNESIUM COMPLEX GT SCH (21:00)
[2022-12-27] MEDS: BACLOFEN 10 MG TABLET GT SCH ×5 (05:17→23:46)
[2022-12-27] MEDS: MULTIVIT, IRON, MIN NO. 8, FA TABLET GT SCH (05:17)
[2022-12-27] MEDS: OMEPRAZOLE 20 MG CAPSULE.DR GT SCH (05:22)
[2022-12-27] MEDS: POLYVINYL ALCOHOL OPHT DROPS 15 ML BOTTLE EACHEYE SCH ×3 (08:27→17:01)
[2022-12-27] MEDS: VALPROIC ACID 250 MG/5 ML LIQUID UDC GT SCH ×3 (08:27→21:50)
[2022-12-27] MEDS: busPIRone 10 MG TABLET GT SCH ×3 (08:28→17:01)
[2022-12-27] MEDS: ACIDOPHILUS/BULGARICUS CHEW TAB GT SCH ×2 (08:28→21:50)
[2022-12-27] MEDS: DOCUSATE SODIUM 100 MG/10 ML LIQUID UDC GT SCH (08:28)
[2022-12-27] MEDS: ESCITALOPRAM OXALATE 10 MG TABLET GT SCH (08:29)
[2022-12-27] MEDS: MIRALAX 17 GM POWD.PACK GT SCH (08:29)
[2022-12-27] MEDS: levETIRAcetam 500 MG/5 ML LIQUID UDC GT SCH ×2 (08:29→21:52)
[2022-12-27] MEDS: POTASSIUM CHLORIDE 40 MEQ/30 ML LIQUID UDC GT SCH (08:30)
[2022-12-27] MEDS: REMEDY ESSENTIAL ZINC PASTE 113 GM TP SCH ×2 (08:30→21:50)
[2022-12-27 10:24] VITALS: O2SAT 99
[2022-12-27] MEDS: HYDROGEN PEROXIDE 3% 118 ML BOTTLE TP SCH ×2 (10:30→20:12)
[2022-12-27] MEDS: ACETAMINOPHEN 650 MG/20 ML UDC- SA PATIENTS-PAIN ONLY GT PRN (12:24)
[2022-12-27 20:12] VITALS: O2SAT 99
[2022-12-27 20:50] VITALS: TEMP 98.6
[2022-12-27] MEDS: PROTEIN SUPPLEMENT (PROSTAT) 30 ML LIQUID GT SCH (21:00)
[2022-12-27] MEDS: OMEGA-3 FATTY ACIDS/FISH OIL CAPSULE GT SCH (21:50)
[2022-12-27] MEDS: NUTRISOURCE FIBER 4 GM PACKET GT SCH (21:50)
[2022-12-27] MEDS: MAGNESIUM COMPLEX GT SCH (21:50)
[2022-12-27] MEDS: CRANBERRY 500 MG GT SCH (21:50)
[2022-12-27] MEDS: MELATONIN 3MG TABLET GT SCH (21:50)
[2022-12-27] MEDS: RIVAROXABAN 15 MG TABLET GT SCH (22:00)
[2022-12-28] MEDS: OMEPRAZOLE 20 MG CAPSULE.DR GT SCH (05:13)
[2022-12-28] MEDS: BACLOFEN 10 MG TABLET GT SCH ×3 (05:13→18:17)
[2022-12-28] MEDS: MULTIVIT, IRON, MIN NO. 8, FA TABLET GT SCH (05:13)
[2022-12-28 07:35] VITALS: O2SAT 97
[2022-12-28] MEDS: HYDROGEN PEROXIDE 3% 118 ML BOTTLE TP SCH ×2 (08:27→19:12)
[2022-12-28] MEDS: VALPROIC ACID 250 MG/5 ML LIQUID UDC GT SCH ×3 (08:41→21:31)
[2022-12-28] MEDS: POLYVINYL ALCOHOL OPHT DROPS 15 ML BOTTLE EACHEYE SCH ×3 (08:42→17:41)
[2022-12-28] MEDS: busPIRone 10 MG TABLET GT SCH ×3 (08:42→17:41)
[2022-12-28] MEDS: POTASSIUM CHLORIDE 40 MEQ/30 ML LIQUID UDC GT SCH (08:42)
[2022-12-28] MEDS: ACIDOPHILUS/BULGARICUS CHEW TAB GT SCH ×2 (08:42→21:33)
[2022-12-28] MEDS: MIRALAX 17 GM POWD.PACK GT SCH (08:42)
[2022-12-28] MEDS: ESCITALOPRAM OXALATE 10 MG TABLET GT SCH (08:42)
[2022-12-28] MEDS: levETIRAcetam 500 MG/5 ML LIQUID UDC GT SCH ×2 (08:42→21:34)
[2022-12-28] MEDS: DOCUSATE SODIUM 100 MG/10 ML LIQUID UDC GT SCH (08:42)
[2022-12-28] MEDS: REMEDY ESSENTIAL ZINC PASTE 113 GM TP SCH ×2 (08:43→21:38)
[2022-12-28 09:02] VITALS: TEMP 97.6
[2022-12-28] MEDS: ACETAMINOPHEN 650 MG/20 ML UDC- SA PATIENTS-PAIN ONLY GT PRN (14:02)
[2022-12-28 17:59] VITALS: O2SAT 98
[2022-12-28 19:50] VITALS: O2SAT 99
[2022-12-28] MEDS: OMEGA-3 FATTY ACIDS/FISH OIL CAPSULE GT SCH (21:31)
[2022-12-28] MEDS: MELATONIN 3MG TABLET GT SCH (21:34)
[2022-12-28] MEDS: MAGNESIUM COMPLEX GT SCH (21:35)
[2022-12-28] MEDS: CRANBERRY 500 MG GT SCH (21:35)
[2022-12-28] MEDS: NUTRISOURCE FIBER 4 GM PACKET GT SCH (21:36)
[2022-12-28] MEDS: PROTEIN SUPPLEMENT (PROSTAT) 30 ML LIQUID GT SCH (21:37)
[2022-12-28] MEDS: RIVAROXABAN 15 MG TABLET GT SCH (21:38)
[2022-12-28 22:18] VITALS: TEMP 97.8
[2022-12-29] MEDS: BACLOFEN 10 MG TABLET GT SCH ×4 (00:14→17:25)
[2022-12-29] MEDS: MULTIVIT, IRON, MIN NO. 8, FA TABLET GT SCH (06:00)
[2022-12-29] MEDS: OMEPRAZOLE 20 MG CAPSULE.DR GT SCH (06:00)
[2022-12-29 07:13] VITALS: TEMP 97.3
[2022-12-29] MEDS: VALPROIC ACID 250 MG/5 ML LIQUID UDC GT SCH ×3 (08:01→21:00)
[2022-12-29] MEDS: POLYVINYL ALCOHOL OPHT DROPS 15 ML BOTTLE EACHEYE SCH ×3 (08:01→17:22)
[2022-12-29] MEDS: DOCUSATE SODIUM 100 MG/10 ML LIQUID UDC GT SCH (08:02)
[2022-12-29] MEDS: busPIRone 10 MG TABLET GT SCH ×3 (08:02→17:22)
[2022-12-29] MEDS: levETIRAcetam 500 MG/5 ML LIQUID UDC GT SCH ×2 (08:02→21:00)
[2022-12-29] MEDS: ESCITALOPRAM OXALATE 10 MG TABLET GT SCH (08:02)
[2022-12-29] MEDS: ACIDOPHILUS/BULGARICUS CHEW TAB GT SCH ×2 (08:02→21:00)
[2022-12-29] MEDS: MIRALAX 17 GM POWD.PACK GT SCH (08:03)
[2022-12-29] MEDS: POTASSIUM CHLORIDE 40 MEQ/30 ML LIQUID UDC GT SCH (08:04)
[2022-12-29] MEDS: COAL TAR TOP SCH (08:04)
[2022-12-29] MEDS: REMEDY ESSENTIAL ZINC PASTE 113 GM TP SCH ×2 (08:04→21:00)
[2022-12-29] MEDS: NEOMY/BACITRA/POLYMYXIN B OINT UD PACKET TP SCH ×2 (09:28→21:00)
[2022-12-29 10:40] VITALS: O2SAT 99
[2022-12-29] MEDS: HYDROGEN PEROXIDE 3% 118 ML BOTTLE TP SCH ×2 (10:40→19:13)
[2022-12-29] MEDS: ACETAMINOPHEN 650 MG/20 ML UDC- SA PATIENTS-PAIN ONLY GT PRN (16:31)
[2022-12-29] MEDS: NUTRISOURCE FIBER 4 GM PACKET GT SCH (21:00)
[2022-12-29] MEDS: CRANBERRY 500 MG GT SCH (21:00)
[2022-12-29] MEDS: PROTEIN SUPPLEMENT (PROSTAT) 30 ML LIQUID GT SCH (21:00)
[2022-12-29] MEDS: RIVAROXABAN 15 MG TABLET GT SCH (21:00)
[2022-12-29] MEDS: MAGNESIUM COMPLEX GT SCH (21:00)
[2022-12-29] MEDS: OMEGA-3 FATTY ACIDS/FISH OIL CAPSULE GT SCH (21:00)
[2022-12-29] MEDS: MELATONIN 3MG TABLET GT SCH (21:00)
[2022-12-29 22:13] VITALS: TEMP 97
[2022-12-29 22:58] VITALS: O2SAT 98
[2022-12-30] MEDS: BACLOFEN 10 MG TABLET GT SCH ×5 (00:37→23:03)
[2022-12-30] MEDS: MULTIVIT, IRON, MIN NO. 8, FA TABLET GT SCH (06:00)
[2022-12-30] MEDS: OMEPRAZOLE 20 MG CAPSULE.DR GT SCH (06:00)
[2022-12-30] MEDS: TWOCAL HN 1,000 ML LIQUID GT PRN (07:03)
[2022-12-30 07:14] VITALS: TEMP 97.3
[2022-12-30] MEDS: HYDROGEN PEROXIDE 3% 118 ML BOTTLE TP SCH ×2 (07:15→21:33)
[2022-12-30] MEDS: VALPROIC ACID 250 MG/5 ML LIQUID UDC GT SCH ×3 (08:45→21:00)
[2022-12-30] MEDS: DOCUSATE SODIUM 100 MG/10 ML LIQUID UDC GT SCH (08:46)
[2022-12-30] MEDS: POLYVINYL ALCOHOL OPHT DROPS 15 ML BOTTLE EACHEYE SCH ×3 (08:46→17:08)
[2022-12-30] MEDS: ACIDOPHILUS/BULGARICUS CHEW TAB GT SCH ×2 (08:46→21:00)
[2022-12-30] MEDS: busPIRone 10 MG TABLET GT SCH ×3 (08:46→17:09)
[2022-12-30] MEDS: levETIRAcetam 500 MG/5 ML LIQUID UDC GT SCH ×2 (08:47→21:00)
[2022-12-30] MEDS: ESCITALOPRAM OXALATE 10 MG TABLET GT SCH (08:48)
[2022-12-30] MEDS: MIRALAX 17 GM POWD.PACK GT SCH (08:50)
[2022-12-30] MEDS: POTASSIUM CHLORIDE 40 MEQ/30 ML LIQUID UDC GT SCH (08:51)
[2022-12-30] MEDS: REMEDY ESSENTIAL ZINC PASTE 113 GM TP SCH ×2 (08:52→21:00)
[2022-12-30] MEDS: NEOMY/BACITRA/POLYMYXIN B OINT UD PACKET TP SCH ×2 (08:52→21:00)
[2022-12-30 10:50] VITALS: O2SAT 99
[2022-12-30 20:00] VITALS: TEMP 98.2
[2022-12-30] MEDS: RIVAROXABAN 15 MG TABLET GT SCH (21:00)
[2022-12-30] MEDS: CRANBERRY 500 MG GT SCH (21:00)
[2022-12-30] MEDS: MELATONIN 3MG TABLET GT SCH (21:00)
[2022-12-30] MEDS: PROTEIN SUPPLEMENT (PROSTAT) 30 ML LIQUID GT SCH (21:00)
[2022-12-30] MEDS: NUTRISOURCE FIBER 4 GM PACKET GT SCH (21:00)
[2022-12-30] MEDS: OMEGA-3 FATTY ACIDS/FISH OIL CAPSULE GT SCH (21:00)
[2022-12-30] MEDS: MAGNESIUM COMPLEX GT SCH (21:00)
[2022-12-30 21:33] VITALS: O2SAT 99
[2022-12-31] MEDS: MULTIVIT, IRON, MIN NO. 8, FA TABLET GT SCH (05:45)
[2022-12-31] MEDS: OMEPRAZOLE 20 MG CAPSULE.DR GT SCH (05:45)
[2022-12-31] MEDS: BACLOFEN 10 MG TABLET GT SCH ×3 (05:45→17:57)
[2022-12-31 07:09] VITALS: O2SAT 98
[2022-12-31 07:13] VITALS: TEMP 97.5
[2022-12-31] MEDS: VALPROIC ACID 250 MG/5 ML LIQUID UDC GT SCH ×3 (08:00→20:59)
[2022-12-31] MEDS: HYDROGEN PEROXIDE 3% 118 ML BOTTLE TP SCH ×2 (09:00→19:07)
[2022-12-31] MEDS: POLYVINYL ALCOHOL OPHT DROPS 15 ML BOTTLE EACHEYE SCH ×3 (09:10→16:37)
[2022-12-31] MEDS: DOCUSATE SODIUM 100 MG/10 ML LIQUID UDC GT SCH (09:10)
[2022-12-31] MEDS: busPIRone 10 MG TABLET GT SCH ×3 (09:10→16:37)
[2022-12-31] MEDS: ACIDOPHILUS/BULGARICUS CHEW TAB GT SCH ×2 (09:11→20:59)
[2022-12-31] MEDS: POTASSIUM CHLORIDE 40 MEQ/30 ML LIQUID UDC GT SCH (09:12)
[2022-12-31] MEDS: levETIRAcetam 500 MG/5 ML LIQUID UDC GT SCH ×2 (09:12→20:59)
[2022-12-31] MEDS: MIRALAX 17 GM POWD.PACK GT SCH (09:12)
[2022-12-31] MEDS: ESCITALOPRAM OXALATE 10 MG TABLET GT SCH (09:12)
[2022-12-31] MEDS: NEOMY/BACITRA/POLYMYXIN B OINT UD PACKET TP SCH ×2 (09:13→21:00)
[2022-12-31] MEDS: REMEDY ESSENTIAL ZINC PASTE 113 GM TP SCH ×2 (09:13→21:00)
[2022-12-31 16:02] VITALS: O2SAT 98
[2022-12-31 20:00] VITALS: TEMP 98.6
[2022-12-31] MEDS: MELATONIN 3MG TABLET GT SCH (20:59)
[2022-12-31] MEDS: MAGNESIUM COMPLEX GT SCH (20:59)
[2022-12-31] MEDS: CRANBERRY 500 MG GT SCH (20:59)
[2022-12-31] MEDS: NUTRISOURCE FIBER 4 GM PACKET GT SCH (20:59)
[2022-12-31] MEDS: OMEGA-3 FATTY ACIDS/FISH OIL CAPSULE GT SCH (20:59)
[2022-12-31] MEDS: PROTEIN SUPPLEMENT (PROSTAT) 30 ML LIQUID GT SCH (20:59)
[2022-12-31] MEDS: RIVAROXABAN 15 MG TABLET GT SCH (21:00)
[2022-12-31 21:10] VITALS: O2SAT 99
[2023-01-01] MEDS: BACLOFEN 10 MG TABLET GT SCH ×5 (00:28→23:10)
[2023-01-01] MEDS: TWOCAL HN 1,000 ML LIQUID GT PRN (02:25)
[2023-01-01] MEDS: OMEPRAZOLE 20 MG CAPSULE.DR GT SCH (05:20)
[2023-01-01] MEDS: MULTIVIT, IRON, MIN NO. 8, FA TABLET GT SCH (05:21)
[2023-01-01 07:08] VITALS: O2SAT 98
[2023-01-01 07:36] VITALS: TEMP 98.4
[2023-01-01] MEDS: VALPROIC ACID 250 MG/5 ML LIQUID UDC GT SCH ×3 (08:08→21:10)
[2023-01-01] MEDS: POLYVINYL ALCOHOL OPHT DROPS 15 ML BOTTLE EACHEYE SCH ×3 (08:08→17:48)
[2023-01-01] MEDS: busPIRone 10 MG TABLET GT SCH ×3 (08:08→17:48)
[2023-01-01] MEDS: DOCUSATE SODIUM 100 MG/10 ML LIQUID UDC GT SCH (08:10)
[2023-01-01] MEDS: ACIDOPHILUS/BULGARICUS CHEW TAB GT SCH ×2 (08:10→21:10)
[2023-01-01] MEDS: levETIRAcetam 500 MG/5 ML LIQUID UDC GT SCH ×2 (08:11→21:10)
[2023-01-01] MEDS: ESCITALOPRAM OXALATE 10 MG TABLET GT SCH (08:12)
[2023-01-01] MEDS: MIRALAX 17 GM POWD.PACK GT SCH (08:13)
[2023-01-01] MEDS: POTASSIUM CHLORIDE 40 MEQ/30 ML LIQUID UDC GT SCH (08:14)
[2023-01-01] MEDS: COAL TAR TOP SCH (08:16)
[2023-01-01] MEDS: REMEDY ESSENTIAL ZINC PASTE 113 GM TP SCH ×2 (08:17→21:00)
[2023-01-01] MEDS: NEOMY/BACITRA/POLYMYXIN B OINT UD PACKET TP SCH ×2 (08:18→21:11)
[2023-01-01] MEDS: HYDROGEN PEROXIDE 3% 118 ML BOTTLE TP SCH ×2 (09:00→19:09)
[2023-01-01 16:20] VITALS: O2SAT 98
[2023-01-01 19:50] VITALS: O2SAT 99
[2023-01-01 20:00] VITALS: TEMP 99.4
[2023-01-01] MEDS: RIVAROXABAN 15 MG TABLET GT SCH (21:00)
[2023-01-01] MEDS: OMEGA-3 FATTY ACIDS/FISH OIL CAPSULE GT SCH (21:10)
[2023-01-01] MEDS: MELATONIN 3MG TABLET GT SCH (21:10)
[2023-01-01] MEDS: PROTEIN SUPPLEMENT (PROSTAT) 30 ML LIQUID GT SCH (21:11)
[2023-01-01] MEDS: NUTRISOURCE FIBER 4 GM PACKET GT SCH (21:11)
[2023-01-01] MEDS: MAGNESIUM COMPLEX GT SCH (21:11)
[2023-01-01] MEDS: CRANBERRY 500 MG GT SCH (21:11)
[2023-01-02] MEDS: MULTIVIT, IRON, MIN NO. 8, FA TABLET GT SCH (06:14)
[2023-01-02] MEDS: BACLOFEN 10 MG TABLET GT SCH ×4 (06:14→23:19)
[2023-01-02] MEDS: OMEPRAZOLE 20 MG CAPSULE.DR GT SCH (06:14)
[2023-01-02 07:49] VITALS: TEMP 99.7
[2023-01-02] MEDS: VALPROIC ACID 250 MG/5 ML LIQUID UDC GT SCH ×3 (08:58→21:00)
[2023-01-02] MEDS: POLYVINYL ALCOHOL OPHT DROPS 15 ML BOTTLE EACHEYE SCH ×3 (08:59→17:44)
[2023-01-02] MEDS: busPIRone 10 MG TABLET GT SCH ×3 (08:59→17:45)
[2023-01-02] MEDS: DOCUSATE SODIUM 100 MG/10 ML LIQUID UDC GT SCH (09:00)
[2023-01-02] MEDS: ACIDOPHILUS/BULGARICUS CHEW TAB GT SCH ×2 (09:00→21:00)
[2023-01-02] MEDS: levETIRAcetam 500 MG/5 ML LIQUID UDC GT SCH ×2 (09:01→21:00)
[2023-01-02] MEDS: ESCITALOPRAM OXALATE 10 MG TABLET GT SCH (09:02)
[2023-01-02] MEDS: MIRALAX 17 GM POWD.PACK GT SCH (09:04)
[2023-01-02] MEDS: REMEDY ESSENTIAL ZINC PASTE 113 GM TP SCH ×2 (09:05→21:00)
[2023-01-02] MEDS: POTASSIUM CHLORIDE 40 MEQ/30 ML LIQUID UDC GT SCH (09:05)
[2023-01-02] MEDS: NEOMY/BACITRA/POLYMYXIN B OINT UD PACKET TP SCH ×2 (09:05→21:00)
[2023-01-02 10:40] VITALS: O2SAT 99
[2023-01-02] MEDS: HYDROGEN PEROXIDE 3% 118 ML BOTTLE TP SCH ×2 (10:40→19:22)
[2023-01-02 20:00] VITALS: TEMP 100.1
[2023-01-02] MEDS: RIVAROXABAN 15 MG TABLET GT SCH (21:00)
[2023-01-02] MEDS: OMEGA-3 FATTY ACIDS/FISH OIL CAPSULE GT SCH (21:00)
[2023-01-02] MEDS: MELATONIN 3MG TABLET GT SCH (21:00)
[2023-01-02] MEDS: CRANBERRY 500 MG GT SCH (21:00)
[2023-01-02] MEDS: PROTEIN SUPPLEMENT (PROSTAT) 30 ML LIQUID GT SCH (21:00)
[2023-01-02] MEDS: MAGNESIUM COMPLEX GT SCH (21:00)
[2023-01-02] MEDS: NUTRISOURCE FIBER 4 GM PACKET GT SCH (21:00)
[2023-01-02 22:00] VITALS: TEMP 99.1
[2023-01-02 22:44] VITALS: O2SAT 99
[2023-01-03 01:10] VITALS: TEMP 98.8
[2023-01-03] MEDS: TWOCAL HN 1,000 ML LIQUID GT PRN (02:04)
[2023-01-03] MEDS: OMEPRAZOLE 20 MG CAPSULE.DR GT SCH (06:07)
[2023-01-03] MEDS: BACLOFEN 10 MG TABLET GT SCH ×4 (06:07→23:41)
[2023-01-03] MEDS: MULTIVIT, IRON, MIN NO. 8, FA TABLET GT SCH (06:07)
[2023-01-03] MEDS: VALPROIC ACID 250 MG/5 ML LIQUID UDC GT SCH ×3 (08:00→20:01)
[2023-01-03] MEDS: HYDROGEN PEROXIDE 3% 118 ML BOTTLE TP SCH ×2 (08:10→21:00)
[2023-01-03] MEDS: ACIDOPHILUS/BULGARICUS CHEW TAB GT SCH ×2 (09:09→20:01)
[2023-01-03] MEDS: levETIRAcetam 500 MG/5 ML LIQUID UDC GT SCH ×2 (09:09→20:01)
[2023-01-03] MEDS: busPIRone 10 MG TABLET GT SCH ×3 (09:09→17:35)
[2023-01-03] MEDS: POTASSIUM CHLORIDE 40 MEQ/30 ML LIQUID UDC GT SCH (09:09)
[2023-01-03] MEDS: NEOMY/BACITRA/POLYMYXIN B OINT UD PACKET TP SCH ×2 (09:09→20:02)
[2023-01-03] MEDS: ESCITALOPRAM OXALATE 10 MG TABLET GT SCH (09:09)
[2023-01-03] MEDS: MIRALAX 17 GM POWD.PACK GT SCH (09:09)
[2023-01-03] MEDS: POLYVINYL ALCOHOL OPHT DROPS 15 ML BOTTLE EACHEYE SCH ×3 (09:09→17:35)
[2023-01-03] MEDS: REMEDY ESSENTIAL ZINC PASTE 113 GM TP SCH ×2 (09:09→20:02)
[2023-01-03] MEDS: DOCUSATE SODIUM 100 MG/10 ML LIQUID UDC GT SCH (09:09)
[2023-01-03 11:17] VITALS: TEMP 97.1
[2023-01-03 11:32] VITALS: O2SAT 98
[2023-01-03] MEDS: PROTEIN SUPPLEMENT (PROSTAT) 30 ML LIQUID GT SCH (20:01)
[2023-01-03] MEDS: OMEGA-3 FATTY ACIDS/FISH OIL CAPSULE GT SCH (20:01)
[2023-01-03] MEDS: MELATONIN 3MG TABLET GT SCH (20:01)
[2023-01-03] MEDS: MAGNESIUM COMPLEX GT SCH (20:01)
[2023-01-03] MEDS: CRANBERRY 500 MG GT SCH (20:01)
[2023-01-03] MEDS: NUTRISOURCE FIBER 4 GM PACKET GT SCH (20:01)
[2023-01-03] MEDS: ACETAMINOPHEN 650 MG/20 ML UDC- SA PATIENTS-PAIN ONLY GT PRN (20:02)
[2023-01-03] MEDS: RIVAROXABAN 15 MG TABLET GT SCH (21:00)
[2023-01-03 21:45] VITALS: TEMP 100.5
[2023-01-03 22:43] VITALS: O2SAT 99
[2023-01-04] VITALS: TEMP 98.2
[2023-01-04 04:47] VITALS: TEMP 98.1
[2023-01-04] MEDS: MULTIVIT, IRON, MIN NO. 8, FA TABLET GT SCH (06:00)
[2023-01-04] MEDS: OMEPRAZOLE 20 MG CAPSULE.DR GT SCH (06:00)
[2023-01-04] MEDS: BACLOFEN 10 MG TABLET GT SCH ×3 (06:00→17:19)
[2023-01-04] MEDS: HYDROGEN PEROXIDE 3% 118 ML BOTTLE TP SCH ×2 (08:11→20:58)
[2023-01-04] MEDS: VALPROIC ACID 250 MG/5 ML LIQUID UDC GT SCH ×3 (08:19→21:00)
[2023-01-04] MEDS: busPIRone 10 MG TABLET GT SCH ×3 (08:20→17:18)
[2023-01-04] MEDS: POLYVINYL ALCOHOL OPHT DROPS 15 ML BOTTLE EACHEYE SCH ×3 (08:20→17:18)
[2023-01-04] MEDS: ESCITALOPRAM OXALATE 10 MG TABLET GT SCH (08:21)
[2023-01-04] MEDS: levETIRAcetam 500 MG/5 ML LIQUID UDC GT SCH ×2 (08:21→21:00)
[2023-01-04] MEDS: NEOMY/BACITRA/POLYMYXIN B OINT UD PACKET TP SCH ×2 (08:22→21:00)
[2023-01-04] MEDS: POTASSIUM CHLORIDE 40 MEQ/30 ML LIQUID UDC GT SCH (08:22)
[2023-01-04] MEDS: REMEDY ESSENTIAL ZINC PASTE 113 GM TP SCH ×2 (08:22→21:00)
[2023-01-04] MEDS: DOCUSATE SODIUM 100 MG/10 ML LIQUID UDC GT SCH (08:23)
[2023-01-04] MEDS: ACIDOPHILUS/BULGARICUS CHEW TAB GT SCH ×2 (08:25→21:00)
[2023-01-04] MEDS: MIRALAX 17 GM POWD.PACK GT SCH (08:28)
[2023-01-04 12:31] VITALS: O2SAT 98
[2023-01-04 20:58] VITALS: O2SAT 99
[2023-01-04 21:00] VITALS: TEMP 98.8
[2023-01-04] MEDS: PROTEIN SUPPLEMENT (PROSTAT) 30 ML LIQUID GT SCH (21:00)
[2023-01-04] MEDS: CRANBERRY 500 MG GT SCH (21:00)
[2023-01-04] MEDS: MAGNESIUM COMPLEX GT SCH (21:00)
[2023-01-04] MEDS: MELATONIN 3MG TABLET GT SCH (21:00)
[2023-01-04] MEDS: RIVAROXABAN 15 MG TABLET GT SCH (21:00)
[2023-01-04] MEDS: OMEGA-3 FATTY ACIDS/FISH OIL CAPSULE GT SCH (21:00)
[2023-01-04] MEDS: NUTRISOURCE FIBER 4 GM PACKET GT SCH (21:00)
[2023-01-05] VITALS (9 sets, daily range): TEMP 98.3–100; O2SAT 96–99
[2023-01-05] MEDS: BACLOFEN 10 MG TABLET GT SCH ×4 (00:31→17:43)
[2023-01-05] MEDS: TWOCAL HN 1,000 ML LIQUID GT PRN (01:04)
[2023-01-05] MEDS: OMEPRAZOLE 20 MG CAPSULE.DR GT SCH (05:40)
[2023-01-05] MEDS: MULTIVIT, IRON, MIN NO. 8, FA TABLET GT SCH (05:40)
[2023-01-05 06:57] LABS: BASOPHILS % (AUTO) 0.4 % (0.0-2.0); EOSINOPHILS # (AUTO) 0.3 K/uL (0.0-0.7); EOSINOPHILS % (AUTO) 3.2 % (0.0-7.0); HEMATOCRIT 38.4 % (31.2-41.9); HEMOGLOBIN 12.9 g/dL (10.9-14.3); LYMPHOCYTES # (AUTO) 3.3 K/uL (0.8-4.8); LYMPHOCYTES % (AUTO) 41.5 % (20.5-51.5); MEAN CORPUSCULAR HEMOGLOBIN 31.7 uug (24.7-32.8); MEAN CORPUSCULAR HGB CONC 34 g/dL (32.3-35.6); MEAN CORPUSCULAR VOLUME 94.2 fL (75.5-95.3); MONOCYTES # (AUTO) 0.6 K/uL (0.1-1.30); MONOCYTES % (AUTO) 7.7 % (0.0-11.0); NEUTROPHILS # (AUTO) 3.7 K/uL (1.8-8.9); NEUTROPHILS % (AUTO) 47.2 % (38.5-71.5); PLATELET COUNT (AUTO) 187 K/uL (179-408); RED BLOOD CELL COUNT(AUTO) 4.07 MIL/uL (3.63-4.92); RED CELL DISTRIBUTION WIDTH 13.2 % (12.3-17.7); WHITE BLOOD COUNT (AUTO) 7.9 K/uL (3.8-11.8)
[2023-01-05 07:03] LABS: DIFFERENTIAL COMMENT 1
[2023-01-05 07:38] LABS: CALCIUM 9.3 mg/dL (8.5-10.1); CREATININE 0.6 mg/dL (0.6-1.3)
[2023-01-05] MEDS: VALPROIC ACID 250 MG/5 ML LIQUID UDC GT SCH ×3 (08:00→21:54)
[2023-01-05] MEDS: HYDROGEN PEROXIDE 3% 118 ML BOTTLE TP SCH ×2 (09:00→20:55)
[2023-01-05] MEDS: busPIRone 10 MG TABLET GT SCH ×3 (09:27→17:43)
[2023-01-05] MEDS: POTASSIUM CHLORIDE 40 MEQ/30 ML LIQUID UDC GT SCH (09:27)
[2023-01-05] MEDS: MIRALAX 17 GM POWD.PACK GT SCH (09:27)
[2023-01-05] MEDS: DOCUSATE SODIUM 100 MG/10 ML LIQUID UDC GT SCH (09:27)
[2023-01-05] MEDS: levETIRAcetam 500 MG/5 ML LIQUID UDC GT SCH ×2 (09:27→21:54)
[2023-01-05] MEDS: ESCITALOPRAM OXALATE 10 MG TABLET GT SCH (09:27)
[2023-01-05] MEDS: ACIDOPHILUS/BULGARICUS CHEW TAB GT SCH ×2 (09:27→21:54)
[2023-01-05] MEDS: POLYVINYL ALCOHOL OPHT DROPS 15 ML BOTTLE EACHEYE SCH ×3 (09:27→17:43)
[2023-01-05] MEDS: REMEDY ESSENTIAL ZINC PASTE 113 GM TP SCH ×2 (09:28→21:55)
[2023-01-05] MEDS: NEOMY/BACITRA/POLYMYXIN B OINT UD PACKET TP SCH ×2 (09:28→21:55)
[2023-01-05] MEDS: COAL TAR TOP SCH (09:28)
[2023-01-05] MEDS: ACETAMINOPHEN 650 MG/20 ML UDC- SA PATIENTS-PAIN ONLY GT PRN (13:45)
[2023-01-05] MEDS: ALBUTEROL SULFATE 2.5 MG/3 ML NEBU NEB PRN ×2 (15:51→20:55)
[2023-01-05] MEDS: IPRATROPIUM BROMIDE 0.5 MG/2.5 ML NEBU NEB PRN (15:51)
[2023-01-05] MEDS: CRANBERRY 500 MG GT SCH (21:54)
[2023-01-05] MEDS: NUTRISOURCE FIBER 4 GM PACKET GT SCH (21:54)
[2023-01-05] MEDS: OMEGA-3 FATTY ACIDS/FISH OIL CAPSULE GT SCH (21:54)
[2023-01-05] MEDS: PROTEIN SUPPLEMENT (PROSTAT) 30 ML LIQUID GT SCH (21:54)
[2023-01-05] MEDS: MAGNESIUM COMPLEX GT SCH (21:54)
[2023-01-05] MEDS: MELATONIN 3MG TABLET GT SCH (21:54)
[2023-01-05] MEDS: RIVAROXABAN 15 MG TABLET GT SCH (21:55)
[2023-01-06] VITALS (12 sets, daily range): TEMP 97.7–98.8; O2SAT 97–99
[2023-01-06] MEDS: BACLOFEN 10 MG TABLET GT SCH ×4 (00:47→17:03)
[2023-01-06] MEDS: MULTIVIT, IRON, MIN NO. 8, FA TABLET GT SCH (05:02)
[2023-01-06] MEDS: OMEPRAZOLE 20 MG CAPSULE.DR GT SCH (05:02)
[2023-01-06] MEDS: HYDROGEN PEROXIDE 3% 118 ML BOTTLE TP SCH ×2 (07:27→21:04)
[2023-01-06] MEDS: VALPROIC ACID 250 MG/5 ML LIQUID UDC GT SCH ×3 (08:44→21:45)
[2023-01-06] MEDS: busPIRone 10 MG TABLET GT SCH ×3 (08:45→17:03)
[2023-01-06] MEDS: ACIDOPHILUS/BULGARICUS CHEW TAB GT SCH ×2 (08:46→21:45)
[2023-01-06] MEDS: DOCUSATE SODIUM 100 MG/10 ML LIQUID UDC GT SCH (08:46)
[2023-01-06] MEDS: ESCITALOPRAM OXALATE 10 MG TABLET GT SCH (08:47)
[2023-01-06] MEDS: MIRALAX 17 GM POWD.PACK GT SCH (08:47)
[2023-01-06] MEDS: REMEDY ESSENTIAL ZINC PASTE 113 GM TP SCH ×2 (08:47→21:46)
[2023-01-06] MEDS: levETIRAcetam 500 MG/5 ML LIQUID UDC GT SCH ×2 (08:47→21:45)
[2023-01-06] MEDS: POTASSIUM CHLORIDE 40 MEQ/30 ML LIQUID UDC GT SCH (08:47)
[2023-01-06] MEDS: POLYVINYL ALCOHOL OPHT DROPS 15 ML BOTTLE EACHEYE SCH ×3 (09:00→17:03)
[2023-01-06] MEDS: NEOMY/BACITRA/POLYMYXIN B OINT UD PACKET TP SCH ×3 (09:00→21:47)
[2023-01-06] MEDS: IPRATROPIUM BROMIDE 0.5 MG/2.5 ML NEBU NEB PRN ×3 (09:20→21:04)
[2023-01-06] MEDS: ALBUTEROL SULFATE 2.5 MG/3 ML NEBU NEB PRN ×3 (09:20→21:04)
[2023-01-06] MEDS: OMEGA-3 FATTY ACIDS/FISH OIL CAPSULE GT SCH (21:45)
[2023-01-06] MEDS: MELATONIN 3MG TABLET GT SCH (21:45)
[2023-01-06] MEDS: PROTEIN SUPPLEMENT (PROSTAT) 30 ML LIQUID GT SCH (21:46)
[2023-01-06] MEDS: MAGNESIUM COMPLEX GT SCH (21:46)
[2023-01-06] MEDS: RIVAROXABAN 15 MG TABLET GT SCH (21:46)
[2023-01-06] MEDS: NUTRISOURCE FIBER 4 GM PACKET GT SCH (21:46)
[2023-01-06] MEDS: CRANBERRY 500 MG GT SCH (21:46)
[2023-01-07] VITALS (7 sets, daily range): TEMP 97.6–97.8; O2SAT 98–99
[2023-01-07] MEDS: TWOCAL HN 1,000 ML LIQUID GT PRN (01:05)
[2023-01-07] MEDS: OMEPRAZOLE 20 MG CAPSULE.DR GT SCH (05:41)
[2023-01-07] MEDS: BACLOFEN 10 MG TABLET GT SCH ×4 (05:41→17:09)
[2023-01-07] MEDS: MULTIVIT, IRON, MIN NO. 8, FA TABLET GT SCH (05:41)
[2023-01-07] MEDS: VALPROIC ACID 250 MG/5 ML LIQUID UDC GT SCH ×3 (08:00→21:00)
[2023-01-07] MEDS: MIRALAX 17 GM POWD.PACK GT SCH (09:00)
[2023-01-07] MEDS: REMEDY ESSENTIAL ZINC PASTE 113 GM TP SCH ×2 (09:00→21:00)
[2023-01-07] MEDS: busPIRone 10 MG TABLET GT SCH ×3 (09:00→17:09)
[2023-01-07] MEDS: ESCITALOPRAM OXALATE 10 MG TABLET GT SCH (09:00)
[2023-01-07] MEDS: ACIDOPHILUS/BULGARICUS CHEW TAB GT SCH ×2 (09:00→21:00)
[2023-01-07] MEDS: NEOMY/BACITRA/POLYMYXIN B OINT UD PACKET TP SCH ×4 (09:00→21:00)
[2023-01-07] MEDS: POTASSIUM CHLORIDE 40 MEQ/30 ML LIQUID UDC GT SCH (09:00)
[2023-01-07] MEDS: DOCUSATE SODIUM 100 MG/10 ML LIQUID UDC GT SCH (09:00)
[2023-01-07] MEDS: levETIRAcetam 500 MG/5 ML LIQUID UDC GT SCH ×2 (09:00→21:00)
[2023-01-07] MEDS: POLYVINYL ALCOHOL OPHT DROPS 15 ML BOTTLE EACHEYE SCH ×3 (09:00→17:29)
[2023-01-07] MEDS: HYDROGEN PEROXIDE 3% 118 ML BOTTLE TP SCH ×2 (09:47→19:29)
[2023-01-07] MEDS: IPRATROPIUM BROMIDE 0.5 MG/2.5 ML NEBU NEB PRN ×2 (14:31→20:10)
[2023-01-07] MEDS: ALBUTEROL SULFATE 2.5 MG/3 ML NEBU NEB PRN ×2 (14:31→20:10)
[2023-01-07] MEDS: MAGNESIUM COMPLEX GT SCH (21:00)
[2023-01-07] MEDS: CRANBERRY 500 MG GT SCH (21:00)
[2023-01-07] MEDS: OMEGA-3 FATTY ACIDS/FISH OIL CAPSULE GT SCH (21:00)
[2023-01-07] MEDS: NUTRISOURCE FIBER 4 GM PACKET GT SCH (21:00)
[2023-01-07] MEDS: RIVAROXABAN 15 MG TABLET GT SCH (21:00)
[2023-01-07] MEDS: MELATONIN 3MG TABLET GT SCH (21:00)
[2023-01-07] MEDS: PROTEIN SUPPLEMENT (PROSTAT) 30 ML LIQUID GT SCH (21:00)
[2023-01-08] VITALS (7 sets, daily range): TEMP 96.6–97.6; O2SAT 98–99
[2023-01-08] MEDS: BACLOFEN 10 MG TABLET GT SCH ×4 (05:40→17:08)
[2023-01-08] MEDS: MULTIVIT, IRON, MIN NO. 8, FA TABLET GT SCH (05:40)
[2023-01-08] MEDS: OMEPRAZOLE 20 MG CAPSULE.DR GT SCH (05:40)
[2023-01-08] MEDS: VALPROIC ACID 250 MG/5 ML LIQUID UDC GT SCH ×3 (08:26→21:00)
[2023-01-08] MEDS: POLYVINYL ALCOHOL OPHT DROPS 15 ML BOTTLE EACHEYE SCH ×3 (08:29→16:41)
[2023-01-08] MEDS: busPIRone 10 MG TABLET GT SCH ×3 (08:29→16:42)
[2023-01-08] MEDS: DOCUSATE SODIUM 100 MG/10 ML LIQUID UDC GT SCH (08:31)
[2023-01-08] MEDS: ACIDOPHILUS/BULGARICUS CHEW TAB GT SCH ×2 (08:31→21:52)
[2023-01-08] MEDS: levETIRAcetam 500 MG/5 ML LIQUID UDC GT SCH ×2 (08:33→21:53)
[2023-01-08] MEDS: ESCITALOPRAM OXALATE 10 MG TABLET GT SCH (08:33)
[2023-01-08] MEDS: MIRALAX 17 GM POWD.PACK GT SCH (08:34)
[2023-01-08] MEDS: POTASSIUM CHLORIDE 40 MEQ/30 ML LIQUID UDC GT SCH (08:35)
[2023-01-08] MEDS: REMEDY ESSENTIAL ZINC PASTE 113 GM TP SCH ×2 (08:36→21:00)
[2023-01-08] MEDS: HYDROGEN PEROXIDE 3% 118 ML BOTTLE TP SCH ×2 (08:36→20:27)
[2023-01-08] MEDS: COAL TAR TOP SCH (08:36)
[2023-01-08] MEDS: NEOMY/BACITRA/POLYMYXIN B OINT UD PACKET TP SCH ×2 (08:37→21:00)
[2023-01-08] MEDS: IPRATROPIUM BROMIDE 0.5 MG/2.5 ML NEBU NEB PRN ×2 (11:32→17:06)
[2023-01-08] MEDS: ALBUTEROL SULFATE 2.5 MG/3 ML NEBU NEB PRN ×2 (11:32→17:06)
[2023-01-08] MEDS: OMEGA-3 FATTY ACIDS/FISH OIL CAPSULE GT SCH (21:00)
[2023-01-08] MEDS: RIVAROXABAN 15 MG TABLET GT SCH (21:00)
[2023-01-08] MEDS: MELATONIN 3MG TABLET GT SCH (21:52)
[2023-01-08] MEDS: CRANBERRY 500 MG GT SCH (21:53)
[2023-01-08] MEDS: MAGNESIUM COMPLEX GT SCH (21:53)
[2023-01-08] MEDS: NUTRISOURCE FIBER 4 GM PACKET GT SCH (21:54)
[2023-01-08] MEDS: PROTEIN SUPPLEMENT (PROSTAT) 30 ML LIQUID GT SCH (21:54)
[2023-01-09] VITALS (10 sets, daily range): TEMP 97.6–98.6; O2SAT 97–99
[2023-01-09] MEDS: BACLOFEN 10 MG TABLET GT SCH ×5 (00:20→23:00)
[2023-01-09] MEDS: MULTIVIT, IRON, MIN NO. 8, FA TABLET GT SCH (05:30)
[2023-01-09] MEDS: OMEPRAZOLE 20 MG CAPSULE.DR GT SCH (05:30)
[2023-01-09] MEDS: VALPROIC ACID 250 MG/5 ML LIQUID UDC GT SCH ×3 (08:00→21:00)
[2023-01-09] MEDS: IPRATROPIUM BROMIDE 0.5 MG/2.5 ML NEBU NEB PRN ×2 (08:12→16:24)
[2023-01-09] MEDS: HYDROGEN PEROXIDE 3% 118 ML BOTTLE TP SCH ×2 (08:12→19:14)
[2023-01-09] MEDS: ALBUTEROL SULFATE 2.5 MG/3 ML NEBU NEB PRN ×2 (08:12→16:24)
[2023-01-09] MEDS: REMEDY ESSENTIAL ZINC PASTE 113 GM TP SCH ×2 (09:00→21:00)
[2023-01-09] MEDS: POTASSIUM CHLORIDE 40 MEQ/30 ML LIQUID UDC GT SCH (09:00)
[2023-01-09] MEDS: ESCITALOPRAM OXALATE 10 MG TABLET GT SCH (09:00)
[2023-01-09] MEDS: busPIRone 10 MG TABLET GT SCH ×3 (09:00→16:27)
[2023-01-09] MEDS: MIRALAX 17 GM POWD.PACK GT SCH (09:00)
[2023-01-09] MEDS: levETIRAcetam 500 MG/5 ML LIQUID UDC GT SCH ×2 (09:00→21:00)
[2023-01-09] MEDS: POLYVINYL ALCOHOL OPHT DROPS 15 ML BOTTLE EACHEYE SCH ×3 (09:00→16:26)
[2023-01-09] MEDS: DOCUSATE SODIUM 100 MG/10 ML LIQUID UDC GT SCH (09:00)
[2023-01-09] MEDS: ACIDOPHILUS/BULGARICUS CHEW TAB GT SCH ×2 (09:00→21:00)
[2023-01-09] MEDS: NEOMY/BACITRA/POLYMYXIN B OINT UD PACKET TP SCH ×2 (09:00→21:00)
[2023-01-09] MEDS: ACETAMINOPHEN 650 MG/20 ML UDC- SA PATIENTS-PAIN ONLY GT PRN (16:32)
[2023-01-09] MEDS: OMEGA-3 FATTY ACIDS/FISH OIL CAPSULE GT SCH (21:00)
[2023-01-09] MEDS: PROTEIN SUPPLEMENT (PROSTAT) 30 ML LIQUID GT SCH (21:00)
[2023-01-09] MEDS: NUTRISOURCE FIBER 4 GM PACKET GT SCH (21:00)
[2023-01-09] MEDS: MAGNESIUM COMPLEX GT SCH (21:00)
[2023-01-09] MEDS: RIVAROXABAN 15 MG TABLET GT SCH (21:00)
[2023-01-09] MEDS: CRANBERRY 500 MG GT SCH (21:00)
[2023-01-09] MEDS: MELATONIN 3MG TABLET GT SCH (21:00)
[2023-01-10] VITALS (8 sets, daily range): TEMP 97.3–97.7; O2SAT 98
[2023-01-10] MEDS: IPRATROPIUM BROMIDE 0.5 MG/2.5 ML NEBU NEB PRN ×4 (00:13→20:49)
[2023-01-10] MEDS: ALBUTEROL SULFATE 2.5 MG/3 ML NEBU NEB PRN ×4 (00:13→20:49)
[2023-01-10] MEDS: OMEPRAZOLE 20 MG CAPSULE.DR GT SCH (05:34)
[2023-01-10] MEDS: BACLOFEN 10 MG TABLET GT SCH ×3 (05:34→17:03)
[2023-01-10] MEDS: MULTIVIT, IRON, MIN NO. 8, FA TABLET GT SCH (05:34)
[2023-01-10] MEDS: VALPROIC ACID 250 MG/5 ML LIQUID UDC GT SCH ×3 (08:00→21:00)
[2023-01-10] MEDS: levETIRAcetam 500 MG/5 ML LIQUID UDC GT SCH ×2 (08:35→21:00)
[2023-01-10] MEDS: POLYVINYL ALCOHOL OPHT DROPS 15 ML BOTTLE EACHEYE SCH ×3 (08:35→16:03)
[2023-01-10] MEDS: busPIRone 10 MG TABLET GT SCH ×3 (08:35→16:03)
[2023-01-10] MEDS: ACIDOPHILUS/BULGARICUS CHEW TAB GT SCH ×2 (08:35→21:00)
[2023-01-10] MEDS: DOCUSATE SODIUM 100 MG/10 ML LIQUID UDC GT SCH (08:35)
[2023-01-10] MEDS: POTASSIUM CHLORIDE 40 MEQ/30 ML LIQUID UDC GT SCH (08:36)
[2023-01-10] MEDS: NEOMY/BACITRA/POLYMYXIN B OINT UD PACKET TP SCH ×2 (08:36→21:00)
[2023-01-10] MEDS: MIRALAX 17 GM POWD.PACK GT SCH (08:36)
[2023-01-10] MEDS: ESCITALOPRAM OXALATE 10 MG TABLET GT SCH (08:36)
[2023-01-10] MEDS: REMEDY ESSENTIAL ZINC PASTE 113 GM TP SCH ×2 (08:42→21:00)
[2023-01-10] MEDS: HYDROGEN PEROXIDE 3% 118 ML BOTTLE TP SCH ×2 (09:00→19:38)
[2023-01-10] MEDS: OMEGA-3 FATTY ACIDS/FISH OIL CAPSULE GT SCH (21:00)
[2023-01-10] MEDS: PROTEIN SUPPLEMENT (PROSTAT) 30 ML LIQUID GT SCH (21:00)
[2023-01-10] MEDS: MAGNESIUM COMPLEX GT SCH (21:00)
[2023-01-10] MEDS: RIVAROXABAN 15 MG TABLET GT SCH (21:00)
[2023-01-10] MEDS: MELATONIN 3MG TABLET GT SCH (21:00)
[2023-01-10] MEDS: CRANBERRY 500 MG GT SCH (21:00)
[2023-01-10] MEDS: NUTRISOURCE FIBER 4 GM PACKET GT SCH (21:00)
[2023-01-11] VITALS (7 sets, daily range): TEMP 97.5–97.8; O2SAT 98–99
[2023-01-11] MEDS: BACLOFEN 10 MG TABLET GT SCH ×5 (01:00→23:57)
[2023-01-11] MEDS: OMEPRAZOLE 20 MG CAPSULE.DR GT SCH (05:55)
[2023-01-11] MEDS: MULTIVIT, IRON, MIN NO. 8, FA TABLET GT SCH (05:55)
[2023-01-11] MEDS: ALBUTEROL SULFATE 2.5 MG/3 ML NEBU NEB PRN ×2 (07:43→14:16)
[2023-01-11] MEDS: IPRATROPIUM BROMIDE 0.5 MG/2.5 ML NEBU NEB PRN ×2 (07:43→14:16)
[2023-01-11] MEDS: HYDROGEN PEROXIDE 3% 118 ML BOTTLE TP SCH ×2 (08:13→19:17)
[2023-01-11] MEDS: DOCUSATE SODIUM 100 MG/10 ML LIQUID UDC GT SCH (08:46)
[2023-01-11] MEDS: busPIRone 10 MG TABLET GT SCH ×3 (08:46→17:06)
[2023-01-11] MEDS: REMEDY ESSENTIAL ZINC PASTE 113 GM TP SCH ×2 (08:46→20:37)
[2023-01-11] MEDS: NEOMY/BACITRA/POLYMYXIN B OINT UD PACKET TP SCH ×2 (08:46→20:36)
[2023-01-11] MEDS: POLYVINYL ALCOHOL OPHT DROPS 15 ML BOTTLE EACHEYE SCH ×3 (08:46→17:06)
[2023-01-11] MEDS: ACIDOPHILUS/BULGARICUS CHEW TAB GT SCH ×2 (08:46→20:35)
[2023-01-11] MEDS: MIRALAX 17 GM POWD.PACK GT SCH (08:46)
[2023-01-11] MEDS: VALPROIC ACID 250 MG/5 ML LIQUID UDC GT SCH ×3 (08:46→20:35)
[2023-01-11] MEDS: ESCITALOPRAM OXALATE 10 MG TABLET GT SCH (08:46)
[2023-01-11] MEDS: levETIRAcetam 500 MG/5 ML LIQUID UDC GT SCH ×2 (08:46→20:38)
[2023-01-11] MEDS: POTASSIUM CHLORIDE 40 MEQ/30 ML LIQUID UDC GT SCH (08:46)
[2023-01-11] MEDS: OMEGA-3 FATTY ACIDS/FISH OIL CAPSULE GT SCH (20:35)
[2023-01-11] MEDS: NUTRISOURCE FIBER 4 GM PACKET GT SCH (20:37)
[2023-01-11] MEDS: PROTEIN SUPPLEMENT (PROSTAT) 30 ML LIQUID GT SCH (20:37)
[2023-01-11] MEDS: CRANBERRY 500 MG GT SCH (20:38)
[2023-01-11] MEDS: MELATONIN 3MG TABLET GT SCH (20:40)
[2023-01-11] MEDS: RIVAROXABAN 15 MG TABLET GT SCH (20:40)
[2023-01-11] MEDS: MAGNESIUM COMPLEX GT SCH (20:43)
[2023-01-12] VITALS (8 sets, daily range): TEMP 97.5–97.8; O2SAT 97–99
[2023-01-12] MEDS: MULTIVIT, IRON, MIN NO. 8, FA TABLET GT SCH (05:45)
[2023-01-12] MEDS: OMEPRAZOLE 20 MG CAPSULE.DR GT SCH (05:45)
[2023-01-12] MEDS: BACLOFEN 10 MG TABLET GT SCH ×3 (05:45→17:36)
[2023-01-12] MEDS: DOCUSATE SODIUM 100 MG/10 ML LIQUID UDC GT SCH (08:19)
[2023-01-12] MEDS: POLYVINYL ALCOHOL OPHT DROPS 15 ML BOTTLE EACHEYE SCH ×3 (08:19→17:36)
[2023-01-12] MEDS: busPIRone 10 MG TABLET GT SCH ×3 (08:19→17:36)
[2023-01-12] MEDS: MIRALAX 17 GM POWD.PACK GT SCH (08:19)
[2023-01-12] MEDS: ESCITALOPRAM OXALATE 10 MG TABLET GT SCH (08:19)
[2023-01-12] MEDS: VALPROIC ACID 250 MG/5 ML LIQUID UDC GT SCH ×3 (08:19→21:00)
[2023-01-12] MEDS: levETIRAcetam 500 MG/5 ML LIQUID UDC GT SCH ×2 (08:19→21:00)
[2023-01-12] MEDS: ACIDOPHILUS/BULGARICUS CHEW TAB GT SCH ×2 (08:19→21:00)
[2023-01-12] MEDS: COAL TAR TOP SCH (08:20)
[2023-01-12] MEDS: POTASSIUM CHLORIDE 40 MEQ/30 ML LIQUID UDC GT SCH (08:20)
[2023-01-12] MEDS: NEOMY/BACITRA/POLYMYXIN B OINT UD PACKET TP SCH ×2 (08:20→21:00)
[2023-01-12] MEDS: REMEDY ESSENTIAL ZINC PASTE 113 GM TP SCH ×2 (08:20→21:00)
[2023-01-12] MEDS: HYDROGEN PEROXIDE 3% 118 ML BOTTLE TP SCH ×2 (09:00→20:35)
[2023-01-12] MEDS: ALBUTEROL SULFATE 2.5 MG/3 ML NEBU NEB PRN ×3 (10:03→20:36)
[2023-01-12] MEDS: IPRATROPIUM BROMIDE 0.5 MG/2.5 ML NEBU NEB PRN ×3 (10:03→20:36)
[2023-01-12] MEDS: OMEGA-3 FATTY ACIDS/FISH OIL CAPSULE GT SCH (21:00)
[2023-01-12] MEDS: MELATONIN 3MG TABLET GT SCH (21:00)
[2023-01-12] MEDS: PROTEIN SUPPLEMENT (PROSTAT) 30 ML LIQUID GT SCH (21:00)
[2023-01-12] MEDS: RIVAROXABAN 15 MG TABLET GT SCH (21:00)
[2023-01-12] MEDS: MAGNESIUM COMPLEX GT SCH (21:00)
[2023-01-12] MEDS: NUTRISOURCE FIBER 4 GM PACKET GT SCH (21:00)
[2023-01-12] MEDS: CRANBERRY 500 MG GT SCH (21:00)
[2023-01-13] VITALS (12 sets, daily range): TEMP 97.5–97.8; O2SAT 98–99
[2023-01-13] MEDS: BACLOFEN 10 MG TABLET GT SCH ×4 (05:05→17:07)
[2023-01-13] MEDS: TWOCAL HN 1,000 ML LIQUID GT PRN (05:05)
[2023-01-13] MEDS: OMEPRAZOLE 20 MG CAPSULE.DR GT SCH (05:05)
[2023-01-13] MEDS: MULTIVIT, IRON, MIN NO. 8, FA TABLET GT SCH (05:05)
[2023-01-13] MEDS: ALBUTEROL SULFATE 2.5 MG/3 ML NEBU NEB PRN ×4 (07:28→20:34)
[2023-01-13] MEDS: IPRATROPIUM BROMIDE 0.5 MG/2.5 ML NEBU NEB PRN ×4 (07:28→20:34)
[2023-01-13] MEDS: HYDROGEN PEROXIDE 3% 118 ML BOTTLE TP SCH ×2 (08:15→20:34)
[2023-01-13] MEDS: POLYVINYL ALCOHOL OPHT DROPS 15 ML BOTTLE EACHEYE SCH ×3 (08:26→17:13)
[2023-01-13] MEDS: VALPROIC ACID 250 MG/5 ML LIQUID UDC GT SCH ×3 (08:26→21:00)
[2023-01-13] MEDS: DOCUSATE SODIUM 100 MG/10 ML LIQUID UDC GT SCH (08:27)
[2023-01-13] MEDS: busPIRone 10 MG TABLET GT SCH ×3 (08:27→17:06)
[2023-01-13] MEDS: ACIDOPHILUS/BULGARICUS CHEW TAB GT SCH ×2 (08:28→21:00)
[2023-01-13] MEDS: levETIRAcetam 500 MG/5 ML LIQUID UDC GT SCH ×2 (08:31→21:00)
[2023-01-13] MEDS: ESCITALOPRAM OXALATE 10 MG TABLET GT SCH (08:31)
[2023-01-13] MEDS: MIRALAX 17 GM POWD.PACK GT SCH (08:32)
[2023-01-13] MEDS: REMEDY ESSENTIAL ZINC PASTE 113 GM TP SCH ×2 (08:33→21:00)
[2023-01-13] MEDS: POTASSIUM CHLORIDE 40 MEQ/30 ML LIQUID UDC GT SCH (08:33)
[2023-01-13] MEDS: NEOMY/BACITRA/POLYMYXIN B OINT UD PACKET TP SCH ×2 (08:34→21:00)
[2023-01-13] MEDS: RIVAROXABAN 15 MG TABLET GT SCH (21:00)
[2023-01-13] MEDS: MELATONIN 3MG TABLET GT SCH (21:00)
[2023-01-13] MEDS: OMEGA-3 FATTY ACIDS/FISH OIL CAPSULE GT SCH (21:00)
[2023-01-13] MEDS: PROTEIN SUPPLEMENT (PROSTAT) 30 ML LIQUID GT SCH (21:00)
[2023-01-13] MEDS: MAGNESIUM COMPLEX GT SCH (21:00)
[2023-01-13] MEDS: CRANBERRY 500 MG GT SCH (21:00)
[2023-01-13] MEDS: NUTRISOURCE FIBER 4 GM PACKET GT SCH (21:00)
[2023-01-14] VITALS (7 sets, daily range): TEMP 97.5–98.8; O2SAT 98–99
[2023-01-14] MEDS: ACETAMINOPHEN 650 MG/20 ML UDC- SA PATIENTS-PAIN ONLY GT PRN (03:43)
[2023-01-14] MEDS: MULTIVIT, IRON, MIN NO. 8, FA TABLET GT SCH (05:09)
[2023-01-14] MEDS: BACLOFEN 10 MG TABLET GT SCH ×4 (05:09→17:29)
[2023-01-14] MEDS: OMEPRAZOLE 20 MG CAPSULE.DR GT SCH (05:09)
[2023-01-14] MEDS: VALPROIC ACID 250 MG/5 ML LIQUID UDC GT SCH ×3 (08:00→21:47)
[2023-01-14] MEDS: HYDROGEN PEROXIDE 3% 118 ML BOTTLE TP SCH ×2 (09:00→21:00)
[2023-01-14] MEDS: busPIRone 10 MG TABLET GT SCH ×3 (09:23→16:22)
[2023-01-14] MEDS: POLYVINYL ALCOHOL OPHT DROPS 15 ML BOTTLE EACHEYE SCH ×3 (09:23→16:22)
[2023-01-14] MEDS: levETIRAcetam 500 MG/5 ML LIQUID UDC GT SCH ×2 (09:24→21:50)
[2023-01-14] MEDS: ESCITALOPRAM OXALATE 10 MG TABLET GT SCH (09:24)
[2023-01-14] MEDS: ACIDOPHILUS/BULGARICUS CHEW TAB GT SCH ×2 (09:24→21:49)
[2023-01-14] MEDS: DOCUSATE SODIUM 100 MG/10 ML LIQUID UDC GT SCH (09:24)
[2023-01-14] MEDS: POTASSIUM CHLORIDE 40 MEQ/30 ML LIQUID UDC GT SCH (09:24)
[2023-01-14] MEDS: MIRALAX 17 GM POWD.PACK GT SCH (09:24)
[2023-01-14] MEDS: NEOMY/BACITRA/POLYMYXIN B OINT UD PACKET TP SCH ×2 (09:25→21:59)
[2023-01-14] MEDS: REMEDY ESSENTIAL ZINC PASTE 113 GM TP SCH ×2 (09:25→21:59)
[2023-01-14] MEDS: ALBUTEROL SULFATE 2.5 MG/3 ML NEBU NEB PRN ×2 (10:02→14:12)
[2023-01-14] MEDS: IPRATROPIUM BROMIDE 0.5 MG/2.5 ML NEBU NEB PRN ×2 (10:02→14:12)
[2023-01-14] MEDS: OMEGA-3 FATTY ACIDS/FISH OIL CAPSULE GT SCH (21:49)
[2023-01-14] MEDS: MELATONIN 3MG TABLET GT SCH (21:49)
[2023-01-14] MEDS: CRANBERRY 500 MG GT SCH (21:51)
[2023-01-14] MEDS: NUTRISOURCE FIBER 4 GM PACKET GT SCH (21:52)
[2023-01-14] MEDS: MAGNESIUM COMPLEX GT SCH (21:52)
[2023-01-14] MEDS: PROTEIN SUPPLEMENT (PROSTAT) 30 ML LIQUID GT SCH (21:58)
[2023-01-14] MEDS: RIVAROXABAN 15 MG TABLET GT SCH (21:59)
[2023-01-15] MEDS: TWOCAL HN 1,000 ML LIQUID GT PRN (03:27)
[2023-01-15] MEDS: OMEPRAZOLE 20 MG CAPSULE.DR GT SCH (05:46)
[2023-01-15] MEDS: BACLOFEN 10 MG TABLET GT SCH ×5 (05:46→23:27)
[2023-01-15] MEDS: MULTIVIT, IRON, MIN NO. 8, FA TABLET GT SCH (05:47)
[2023-01-15 07:26] VITALS: TEMP 97.2
[2023-01-15] MEDS: HYDROGEN PEROXIDE 3% 118 ML BOTTLE TP SCH ×3 (07:46→20:28)
[2023-01-15] MEDS: VALPROIC ACID 250 MG/5 ML LIQUID UDC GT SCH ×3 (08:00→21:00)
[2023-01-15] MEDS: POLYVINYL ALCOHOL OPHT DROPS 15 ML BOTTLE EACHEYE SCH ×3 (09:37→16:10)
[2023-01-15] MEDS: busPIRone 10 MG TABLET GT SCH ×3 (09:37→16:13)
[2023-01-15] MEDS: ACIDOPHILUS/BULGARICUS CHEW TAB GT SCH ×2 (09:46→21:00)
[2023-01-15] MEDS: DOCUSATE SODIUM 100 MG/10 ML LIQUID UDC GT SCH (09:46)
[2023-01-15] MEDS: levETIRAcetam 500 MG/5 ML LIQUID UDC GT SCH ×2 (09:46→21:00)
[2023-01-15] MEDS: ESCITALOPRAM OXALATE 10 MG TABLET GT SCH (09:47)
[2023-01-15] MEDS: MIRALAX 17 GM POWD.PACK GT SCH (09:47)
[2023-01-15] MEDS: POTASSIUM CHLORIDE 40 MEQ/30 ML LIQUID UDC GT SCH (09:48)
[2023-01-15] MEDS: COAL TAR TOP SCH (09:48)
[2023-01-15] MEDS: REMEDY ESSENTIAL ZINC PASTE 113 GM TP SCH ×2 (09:48→21:00)
[2023-01-15] MEDS: NEOMY/BACITRA/POLYMYXIN B OINT UD PACKET TP SCH ×2 (09:49→21:00)
[2023-01-15 10:40] VITALS: O2SAT 99
[2023-01-15 20:00] VITALS: TEMP 98.1
[2023-01-15] MEDS: OMEGA-3 FATTY ACIDS/FISH OIL CAPSULE GT SCH (21:00)
[2023-01-15] MEDS: NUTRISOURCE FIBER 4 GM PACKET GT SCH (21:00)
[2023-01-15] MEDS: CRANBERRY 500 MG GT SCH (21:00)
[2023-01-15] MEDS: PROTEIN SUPPLEMENT (PROSTAT) 30 ML LIQUID GT SCH (21:00)
[2023-01-15] MEDS: MELATONIN 3MG TABLET GT SCH (21:00)
[2023-01-15] MEDS: RIVAROXABAN 15 MG TABLET GT SCH (21:00)
[2023-01-15] MEDS: MAGNESIUM COMPLEX GT SCH (21:00)
[2023-01-15 21:30] VITALS: O2SAT 99
[2023-01-16] MEDS: MULTIVIT, IRON, MIN NO. 8, FA TABLET GT SCH (05:53)
[2023-01-16] MEDS: OMEPRAZOLE 20 MG CAPSULE.DR GT SCH (05:53)
[2023-01-16] MEDS: BACLOFEN 10 MG TABLET GT SCH ×3 (05:53→17:39)
[2023-01-16] MEDS: HYDROGEN PEROXIDE 3% 118 ML BOTTLE TP SCH ×2 (07:32→19:21)
[2023-01-16 08:00] VITALS: TEMP 98.6
[2023-01-16] MEDS: busPIRone 10 MG TABLET GT SCH ×3 (08:22→16:38)
[2023-01-16] MEDS: DOCUSATE SODIUM 100 MG/10 ML LIQUID UDC GT SCH (08:22)
[2023-01-16] MEDS: VALPROIC ACID 250 MG/5 ML LIQUID UDC GT SCH ×3 (08:22→21:00)
[2023-01-16] MEDS: POLYVINYL ALCOHOL OPHT DROPS 15 ML BOTTLE EACHEYE SCH ×3 (08:22→16:37)
[2023-01-16] MEDS: ACIDOPHILUS/BULGARICUS CHEW TAB GT SCH ×2 (08:23→21:00)
[2023-01-16] MEDS: levETIRAcetam 500 MG/5 ML LIQUID UDC GT SCH ×2 (08:23→21:00)
[2023-01-16] MEDS: MIRALAX 17 GM POWD.PACK GT SCH (08:24)
[2023-01-16] MEDS: ESCITALOPRAM OXALATE 10 MG TABLET GT SCH (08:24)
[2023-01-16] MEDS: POTASSIUM CHLORIDE 40 MEQ/30 ML LIQUID UDC GT SCH (08:24)
[2023-01-16] MEDS: NEOMY/BACITRA/POLYMYXIN B OINT UD PACKET TP SCH ×2 (08:25→21:00)
[2023-01-16] MEDS: REMEDY ESSENTIAL ZINC PASTE 113 GM TP SCH ×2 (08:25→21:00)
[2023-01-16 10:40] VITALS: O2SAT 99
[2023-01-16] MEDS: ACETAMINOPHEN 650 MG/20 ML UDC- SA PATIENTS-PAIN ONLY GT PRN ×2 (14:38→22:38)
[2023-01-16 20:00] VITALS: TEMP 97.5
[2023-01-16] MEDS: OMEGA-3 FATTY ACIDS/FISH OIL CAPSULE GT SCH (21:00)
[2023-01-16] MEDS: CRANBERRY 500 MG GT SCH (21:00)
[2023-01-16] MEDS: RIVAROXABAN 15 MG TABLET GT SCH (21:00)
[2023-01-16] MEDS: MELATONIN 3MG TABLET GT SCH (21:00)
[2023-01-16] MEDS: MAGNESIUM COMPLEX GT SCH (21:00)
[2023-01-16] MEDS: PROTEIN SUPPLEMENT (PROSTAT) 30 ML LIQUID GT SCH (21:00)
[2023-01-16] MEDS: NUTRISOURCE FIBER 4 GM PACKET GT SCH (21:00)
[2023-01-16 22:30] VITALS: O2SAT 99
[2023-01-17] VITALS (8 sets, daily range): TEMP 98.6; O2SAT 96–99
[2023-01-17] MEDS: BACLOFEN 10 MG TABLET GT SCH ×4 (06:03→17:52)
[2023-01-17] MEDS: OMEPRAZOLE 20 MG CAPSULE.DR GT SCH (06:03)
[2023-01-17] MEDS: MULTIVIT, IRON, MIN NO. 8, FA TABLET GT SCH (06:04)
[2023-01-17] MEDS: IPRATROPIUM BROMIDE 0.5 MG/2.5 ML NEBU NEB PRN ×3 (07:30→15:03)
[2023-01-17] MEDS: ALBUTEROL SULFATE 2.5 MG/3 ML NEBU NEB PRN ×3 (07:30→15:03)
[2023-01-17] MEDS: VALPROIC ACID 250 MG/5 ML LIQUID UDC GT SCH ×3 (08:00→20:19)
[2023-01-17] MEDS: HYDROGEN PEROXIDE 3% 118 ML BOTTLE TP SCH ×2 (08:07→20:36)
[2023-01-17] MEDS: busPIRone 10 MG TABLET GT SCH ×3 (09:01→17:50)
[2023-01-17] MEDS: POLYVINYL ALCOHOL OPHT DROPS 15 ML BOTTLE EACHEYE SCH ×3 (09:01→17:50)
[2023-01-17] MEDS: DOCUSATE SODIUM 100 MG/10 ML LIQUID UDC GT SCH (09:02)
[2023-01-17] MEDS: ACIDOPHILUS/BULGARICUS CHEW TAB GT SCH ×2 (09:02→20:19)
[2023-01-17] MEDS: levETIRAcetam 500 MG/5 ML LIQUID UDC GT SCH ×2 (09:03→20:21)
[2023-01-17] MEDS: POTASSIUM CHLORIDE 40 MEQ/30 ML LIQUID UDC GT SCH (09:03)
[2023-01-17] MEDS: ESCITALOPRAM OXALATE 10 MG TABLET GT SCH (09:03)
[2023-01-17] MEDS: MIRALAX 17 GM POWD.PACK GT SCH (09:03)
[2023-01-17] MEDS: REMEDY ESSENTIAL ZINC PASTE 113 GM TP SCH ×2 (09:04→20:24)
[2023-01-17] MEDS: NEOMY/BACITRA/POLYMYXIN B OINT UD PACKET TP SCH ×2 (09:04→20:24)
[2023-01-17 09:20] LABS: BASOPHILS % (AUTO) 0.4 % (0.0-2.0); EOSINOPHILS # (AUTO) 0.2 K/uL (0.0-0.7); EOSINOPHILS % (AUTO) 2.4 % (0.0-7.0); HEMATOCRIT 43.5 % (31.2-41.9); HEMOGLOBIN 14.4 g/dL (10.9-14.3); LYMPHOCYTES # (AUTO) 2.5 K/uL (0.8-4.8); LYMPHOCYTES % (AUTO) 30.8 % (20.5-51.5); MEAN CORPUSCULAR HEMOGLOBIN 31.2 uug (24.7-32.8); MEAN CORPUSCULAR HGB CONC 33 g/dL (32.3-35.6); MEAN CORPUSCULAR VOLUME 94.6 fL (75.5-95.3); MONOCYTES # (AUTO) 0.5 K/uL (0.1-1.30); MONOCYTES % (AUTO) 5.7 % (0.0-11.0); NEUTROPHILS % (AUTO) 60.7 % (38.5-71.5); PLATELET COUNT (AUTO) 225 K/uL (179-408); RED CELL DISTRIBUTION WIDTH 13.2 % (12.3-17.7); WHITE BLOOD COUNT (AUTO) 8.3 K/uL (3.8-11.8)
[2023-01-17 09:43] LABS: THYROID STIMULATING HORMONE 1.439 mIU/mL (0.358-3.740)
[2023-01-17] MEDS: TWOCAL HN 1,000 ML LIQUID GT PRN (09:48)
[2023-01-17 09:56] LABS: DIFFERENTIAL COMMENT 1
[2023-01-17 10:09] LABS: ALANINE AMINOTRANSFERASE 8 U/L (14-59); ALBUMIN 3.2 g/dL (3.4-5.0); ALKALINE PHOSPHATASE 104 U/L (50-136); ASPARTATE AMINOTRANSFERASE 10 U/L (15-37); BILIRUBIN,TOTAL 0.4 mg/dL (0.2-1.0); CALCIUM 9.2 mg/dL (8.5-10.1); CARBON DIOXIDE 27 mmol/L (21-32); CHLORIDE 104 mmol/L (98-107); CREATININE 0.5 mg/dL (0.6-1.3); GLUCOSE 86 mg/dL (74-106); POTASSIUM 3.8 mmol/L (3.5-5.1); SODIUM SERUM 141 mmol/L (136-145); TOTAL PROTEIN, SERUM 7.6 g/dL (6.4-8.2); UREA NITROGEN, BLOOD 13 mg/dL (7-18)
[2023-01-17 10:26] LABS: CHOLESTEROL 157 mg/dL (<200); HDL CHOLESTEROL 40 mg/dL (40-60); TRIGLYCERIDES 237 MG/DL (30-150)
[2023-01-17] MEDS: OMEGA-3 FATTY ACIDS/FISH OIL CAPSULE GT SCH (20:19)
[2023-01-17] MEDS: CRANBERRY 500 MG GT SCH (20:22)
[2023-01-17] MEDS: NUTRISOURCE FIBER 4 GM PACKET GT SCH (20:22)
[2023-01-17] MEDS: MAGNESIUM COMPLEX GT SCH (20:22)
[2023-01-17] MEDS: PROTEIN SUPPLEMENT (PROSTAT) 30 ML LIQUID GT SCH (20:22)
[2023-01-17] MEDS: RIVAROXABAN 15 MG TABLET GT SCH (20:23)
[2023-01-17] MEDS: MELATONIN 3MG TABLET GT SCH (20:26)
[2023-01-18] MEDS: BACLOFEN 10 MG TABLET GT SCH ×4 (00:16→17:21)
[2023-01-18] MEDS: MULTIVIT, IRON, MIN NO. 8, FA TABLET GT SCH (06:54)
[2023-01-18] MEDS: OMEPRAZOLE 20 MG CAPSULE.DR GT SCH (06:55)
[2023-01-18] MEDS: HYDROGEN PEROXIDE 3% 118 ML BOTTLE TP SCH ×2 (07:23→21:00)
[2023-01-18] MEDS: VALPROIC ACID 250 MG/5 ML LIQUID UDC GT SCH ×3 (08:00→21:00)
[2023-01-18] MEDS: MIRALAX 17 GM POWD.PACK GT SCH (09:00)
[2023-01-18] MEDS: busPIRone 10 MG TABLET GT SCH ×3 (09:00→17:20)
[2023-01-18] MEDS: POTASSIUM CHLORIDE 40 MEQ/30 ML LIQUID UDC GT SCH (09:00)
[2023-01-18] MEDS: ESCITALOPRAM OXALATE 10 MG TABLET GT SCH (09:00)
[2023-01-18] MEDS: ACIDOPHILUS/BULGARICUS CHEW TAB GT SCH ×2 (09:00→21:00)
[2023-01-18] MEDS: DOCUSATE SODIUM 100 MG/10 ML LIQUID UDC GT SCH (09:00)
[2023-01-18] MEDS: POLYVINYL ALCOHOL OPHT DROPS 15 ML BOTTLE EACHEYE SCH ×3 (09:00→17:20)
[2023-01-18] MEDS: REMEDY ESSENTIAL ZINC PASTE 113 GM TP SCH ×2 (09:00→21:00)
[2023-01-18] MEDS: NEOMY/BACITRA/POLYMYXIN B OINT UD PACKET TP SCH ×2 (09:00→21:00)
[2023-01-18] MEDS: levETIRAcetam 500 MG/5 ML LIQUID UDC GT SCH ×2 (09:00→21:00)
[2023-01-18 09:04] VITALS: TEMP 98.2
[2023-01-18 10:25] VITALS: O2SAT 98
[2023-01-18 20:00] VITALS: TEMP 98.3
[2023-01-18 20:36] VITALS: O2SAT 99
[2023-01-18] MEDS: CRANBERRY 500 MG GT SCH (21:00)
[2023-01-18] MEDS: PROTEIN SUPPLEMENT (PROSTAT) 30 ML LIQUID GT SCH (21:00)
[2023-01-18] MEDS: MAGNESIUM COMPLEX GT SCH (21:00)
[2023-01-18] MEDS: RIVAROXABAN 15 MG TABLET GT SCH (21:00)
[2023-01-18] MEDS: OMEGA-3 FATTY ACIDS/FISH OIL CAPSULE GT SCH (21:00)
[2023-01-18] MEDS: NUTRISOURCE FIBER 4 GM PACKET GT SCH (21:00)
[2023-01-18] MEDS: MELATONIN 3MG TABLET GT SCH (21:00)
[2023-01-19] VITALS (7 sets, daily range): TEMP 97.8–97.9; O2SAT 98–99
[2023-01-19] MEDS: TWOCAL HN 1,000 ML LIQUID GT PRN (01:22)
[2023-01-19] MEDS: OMEPRAZOLE 20 MG CAPSULE.DR GT SCH (05:43)
[2023-01-19] MEDS: MULTIVIT, IRON, MIN NO. 8, FA TABLET GT SCH (05:43)
[2023-01-19] MEDS: BACLOFEN 10 MG TABLET GT SCH ×4 (05:43→17:00)
[2023-01-19] MEDS: HYDROGEN PEROXIDE 3% 118 ML BOTTLE TP SCH ×2 (07:36→23:57)
[2023-01-19] MEDS: ALBUTEROL SULFATE 2.5 MG/3 ML NEBU NEB PRN ×2 (07:36→16:03)
[2023-01-19] MEDS: IPRATROPIUM BROMIDE 0.5 MG/2.5 ML NEBU NEB PRN ×2 (07:36→16:03)
[2023-01-19] MEDS: VALPROIC ACID 250 MG/5 ML LIQUID UDC GT SCH ×3 (08:58→21:00)
[2023-01-19] MEDS: POLYVINYL ALCOHOL OPHT DROPS 15 ML BOTTLE EACHEYE SCH ×3 (08:58→17:00)
[2023-01-19] MEDS: busPIRone 10 MG TABLET GT SCH ×3 (08:59→17:00)
[2023-01-19] MEDS: DOCUSATE SODIUM 100 MG/10 ML LIQUID UDC GT SCH (08:59)
[2023-01-19] MEDS: ACIDOPHILUS/BULGARICUS CHEW TAB GT SCH ×2 (08:59→21:00)
[2023-01-19] MEDS: NEOMY/BACITRA/POLYMYXIN B OINT UD PACKET TP SCH ×2 (09:00→21:00)
[2023-01-19] MEDS: MIRALAX 17 GM POWD.PACK GT SCH (09:00)
[2023-01-19] MEDS: ESCITALOPRAM OXALATE 10 MG TABLET GT SCH (09:00)
[2023-01-19] MEDS: levETIRAcetam 500 MG/5 ML LIQUID UDC GT SCH ×2 (09:00→21:00)
[2023-01-19] MEDS: POTASSIUM CHLORIDE 40 MEQ/30 ML LIQUID UDC GT SCH (09:03)
[2023-01-19] MEDS: COAL TAR TOP SCH (09:04)
[2023-01-19] MEDS: REMEDY ESSENTIAL ZINC PASTE 113 GM TP SCH ×2 (09:04→21:00)
[2023-01-19] MEDS: MELATONIN 3MG TABLET GT SCH (21:00)
[2023-01-19] MEDS: MAGNESIUM COMPLEX GT SCH (21:00)
[2023-01-19] MEDS: RIVAROXABAN 15 MG TABLET GT SCH (21:00)
[2023-01-19] MEDS: CRANBERRY 500 MG GT SCH (21:00)
[2023-01-19] MEDS: PROTEIN SUPPLEMENT (PROSTAT) 30 ML LIQUID GT SCH (21:00)
[2023-01-19] MEDS: NUTRISOURCE FIBER 4 GM PACKET GT SCH (21:00)
[2023-01-19] MEDS: OMEGA-3 FATTY ACIDS/FISH OIL CAPSULE GT SCH (21:00)
[2023-01-20] MEDS: OMEPRAZOLE 20 MG CAPSULE.DR GT SCH (05:55)
[2023-01-20] MEDS: BACLOFEN 10 MG TABLET GT SCH ×4 (05:55→17:13)
[2023-01-20] MEDS: MULTIVIT, IRON, MIN NO. 8, FA TABLET GT SCH (05:55)
[2023-01-20 07:20] VITALS: TEMP 98.3
[2023-01-20] MEDS: VALPROIC ACID 250 MG/5 ML LIQUID UDC GT SCH ×3 (08:00→21:00)
[2023-01-20] MEDS: HYDROGEN PEROXIDE 3% 118 ML BOTTLE TP SCH ×2 (09:00→20:07)
[2023-01-20] MEDS: DOCUSATE SODIUM 100 MG/10 ML LIQUID UDC GT SCH (09:11)
[2023-01-20] MEDS: busPIRone 10 MG TABLET GT SCH ×3 (09:11→17:13)
[2023-01-20] MEDS: POLYVINYL ALCOHOL OPHT DROPS 15 ML BOTTLE EACHEYE SCH ×3 (09:11→17:13)
[2023-01-20] MEDS: ACIDOPHILUS/BULGARICUS CHEW TAB GT SCH ×2 (09:12→21:00)
[2023-01-20] MEDS: levETIRAcetam 500 MG/5 ML LIQUID UDC GT SCH ×2 (09:12→21:00)
[2023-01-20] MEDS: ESCITALOPRAM OXALATE 10 MG TABLET GT SCH (09:13)
[2023-01-20] MEDS: MIRALAX 17 GM POWD.PACK GT SCH (09:13)
[2023-01-20] MEDS: POTASSIUM CHLORIDE 40 MEQ/30 ML LIQUID UDC GT SCH (09:14)
[2023-01-20] MEDS: NEOMY/BACITRA/POLYMYXIN B OINT UD PACKET TP SCH (09:15)
[2023-01-20] MEDS: REMEDY ESSENTIAL ZINC PASTE 113 GM TP SCH ×2 (09:15→21:00)
[2023-01-20 20:00] VITALS: TEMP 98.5
[2023-01-20] MEDS: PROTEIN SUPPLEMENT (PROSTAT) 30 ML LIQUID GT SCH (21:00)
[2023-01-20] MEDS: MELATONIN 3MG TABLET GT SCH (21:00)
[2023-01-20] MEDS: OMEGA-3 FATTY ACIDS/FISH OIL CAPSULE GT SCH (21:00)
[2023-01-20] MEDS: RIVAROXABAN 15 MG TABLET GT SCH (21:00)
[2023-01-20] MEDS: MAGNESIUM COMPLEX GT SCH (21:00)
[2023-01-20] MEDS: CRANBERRY 500 MG GT SCH (21:00)
[2023-01-20] MEDS: NUTRISOURCE FIBER 4 GM PACKET GT SCH (21:00)
[2023-01-20 21:15] VITALS: O2SAT 99
[2023-01-20] MEDS: ACETAMINOPHEN 650 MG/20 ML UDC- SA PATIENTS-PAIN ONLY GT PRN (22:16)
[2023-01-21] MEDS: OMEPRAZOLE 20 MG CAPSULE.DR GT SCH (05:18)
[2023-01-21] MEDS: MULTIVIT, IRON, MIN NO. 8, FA TABLET GT SCH (05:18)
[2023-01-21] MEDS: BACLOFEN 10 MG TABLET GT SCH ×4 (05:18→17:08)
[2023-01-21 07:29] VITALS: TEMP 97.4
[2023-01-21 08:25] VITALS: O2SAT 98
[2023-01-21] MEDS: VALPROIC ACID 250 MG/5 ML LIQUID UDC GT SCH ×3 (08:46→21:00)
[2023-01-21] MEDS: POLYVINYL ALCOHOL OPHT DROPS 15 ML BOTTLE EACHEYE SCH ×3 (08:46→17:08)
[2023-01-21] MEDS: busPIRone 10 MG TABLET GT SCH ×3 (08:47→17:08)
[2023-01-21] MEDS: ESCITALOPRAM OXALATE 10 MG TABLET GT SCH (08:47)
[2023-01-21] MEDS: levETIRAcetam 500 MG/5 ML LIQUID UDC GT SCH ×2 (08:48→21:00)
[2023-01-21] MEDS: ACIDOPHILUS/BULGARICUS CHEW TAB GT SCH ×2 (08:48→21:00)
[2023-01-21] MEDS: DOCUSATE SODIUM 100 MG/10 ML LIQUID UDC GT SCH (08:48)
[2023-01-21] MEDS: POTASSIUM CHLORIDE 40 MEQ/30 ML LIQUID UDC GT SCH (08:51)
[2023-01-21] MEDS: MIRALAX 17 GM POWD.PACK GT SCH (08:51)
[2023-01-21] MEDS: REMEDY ESSENTIAL ZINC PASTE 113 GM TP SCH ×2 (09:00→21:00)
[2023-01-21] MEDS: HYDROGEN PEROXIDE 3% 118 ML BOTTLE TP SCH ×2 (09:33→20:08)
[2023-01-21] MEDS: ACETAMINOPHEN 650 MG/20 ML UDC- SA PATIENTS-PAIN ONLY GT PRN (17:16)
[2023-01-21 20:00] VITALS: TEMP 98
[2023-01-21] MEDS: RIVAROXABAN 15 MG TABLET GT SCH (21:00)
[2023-01-21] MEDS: OMEGA-3 FATTY ACIDS/FISH OIL CAPSULE GT SCH (21:00)
[2023-01-21] MEDS: MAGNESIUM COMPLEX GT SCH (21:00)
[2023-01-21] MEDS: CRANBERRY 500 MG GT SCH (21:00)
[2023-01-21] MEDS: NUTRISOURCE FIBER 4 GM PACKET GT SCH (21:00)
[2023-01-21] MEDS: PROTEIN SUPPLEMENT (PROSTAT) 30 ML LIQUID GT SCH (21:00)
[2023-01-21] MEDS: MELATONIN 3MG TABLET GT SCH (21:00)
[2023-01-21 21:19] VITALS: O2SAT 99
[2023-01-22] MEDS: OMEPRAZOLE 20 MG CAPSULE.DR GT SCH (05:26)
[2023-01-22] MEDS: MULTIVIT, IRON, MIN NO. 8, FA TABLET GT SCH (05:26)
[2023-01-22] MEDS: BACLOFEN 10 MG TABLET GT SCH ×4 (05:26→17:33)
[2023-01-22 07:24] VITALS: TEMP 98.6
[2023-01-22 07:56] VITALS: O2SAT 98
[2023-01-22] MEDS: VALPROIC ACID 250 MG/5 ML LIQUID UDC GT SCH ×3 (08:00→21:02)
[2023-01-22] MEDS: REMEDY ESSENTIAL ZINC PASTE 113 GM TP SCH ×2 (09:00→20:58)
[2023-01-22] MEDS: busPIRone 10 MG TABLET GT SCH ×3 (09:00→17:31)
[2023-01-22] MEDS: ESCITALOPRAM OXALATE 10 MG TABLET GT SCH (09:00)
[2023-01-22] MEDS: HYDROGEN PEROXIDE 3% 118 ML BOTTLE TP SCH ×2 (09:00→21:11)
[2023-01-22] MEDS: POLYVINYL ALCOHOL OPHT DROPS 15 ML BOTTLE EACHEYE SCH ×3 (09:00→17:31)
[2023-01-22] MEDS: levETIRAcetam 500 MG/5 ML LIQUID UDC GT SCH ×2 (09:00→20:57)
[2023-01-22] MEDS: COAL TAR TOP SCH (09:00)
[2023-01-22] MEDS: MIRALAX 17 GM POWD.PACK GT SCH (09:00)
[2023-01-22] MEDS: DOCUSATE SODIUM 100 MG/10 ML LIQUID UDC GT SCH (09:00)
[2023-01-22] MEDS: POTASSIUM CHLORIDE 40 MEQ/30 ML LIQUID UDC GT SCH (09:00)
[2023-01-22] MEDS: ACIDOPHILUS/BULGARICUS CHEW TAB GT SCH ×2 (09:00→20:58)
[2023-01-22 14:14] VITALS: O2SAT 98
[2023-01-22 14:24] VITALS: O2SAT 98
[2023-01-22] MEDS: ALBUTEROL SULFATE 2.5 MG/3 ML NEBU NEB PRN (14:24)
[2023-01-22] MEDS: IPRATROPIUM BROMIDE 0.5 MG/2.5 ML NEBU NEB PRN (14:24)
[2023-01-22] MEDS: TWOCAL HN 1,000 ML LIQUID GT PRN (17:45)
[2023-01-22 19:54] VITALS: O2SAT 99
[2023-01-22 20:00] VITALS: TEMP 97.7
[2023-01-22] MEDS: MAGNESIUM COMPLEX GT SCH (20:57)
[2023-01-22] MEDS: NUTRISOURCE FIBER 4 GM PACKET GT SCH (20:57)
[2023-01-22] MEDS: RIVAROXABAN 15 MG TABLET GT SCH (20:57)
[2023-01-22] MEDS: PROTEIN SUPPLEMENT (PROSTAT) 30 ML LIQUID GT SCH (20:57)
[2023-01-22] MEDS: CRANBERRY 500 MG GT SCH (20:57)
[2023-01-22] MEDS: MELATONIN 3MG TABLET GT SCH (20:57)
[2023-01-22] MEDS: OMEGA-3 FATTY ACIDS/FISH OIL CAPSULE GT SCH (21:02)
[2023-01-23] MEDS: OMEPRAZOLE 20 MG CAPSULE.DR GT SCH (06:09)
[2023-01-23] MEDS: MULTIVIT, IRON, MIN NO. 8, FA TABLET GT SCH (06:09)
[2023-01-23] MEDS: BACLOFEN 10 MG TABLET GT SCH ×5 (06:09→23:42)
[2023-01-23 07:34] VITALS: O2SAT 98
[2023-01-23 07:44] VITALS: O2SAT 98
[2023-01-23] MEDS: IPRATROPIUM BROMIDE 0.5 MG/2.5 ML NEBU NEB PRN ×2 (07:44→20:42)
[2023-01-23] MEDS: HYDROGEN PEROXIDE 3% 118 ML BOTTLE TP SCH ×3 (07:44→20:42)
[2023-01-23] MEDS: ALBUTEROL SULFATE 2.5 MG/3 ML NEBU NEB PRN ×2 (07:44→20:42)
[2023-01-23] MEDS: POLYVINYL ALCOHOL OPHT DROPS 15 ML BOTTLE EACHEYE SCH ×3 (08:36→17:05)
[2023-01-23] MEDS: VALPROIC ACID 250 MG/5 ML LIQUID UDC GT SCH ×3 (08:36→21:00)
[2023-01-23] MEDS: DOCUSATE SODIUM 100 MG/10 ML LIQUID UDC GT SCH (08:37)
[2023-01-23] MEDS: levETIRAcetam 500 MG/5 ML LIQUID UDC GT SCH ×2 (08:37→21:00)
[2023-01-23] MEDS: busPIRone 10 MG TABLET GT SCH ×3 (08:37→17:05)
[2023-01-23] MEDS: ACIDOPHILUS/BULGARICUS CHEW TAB GT SCH ×2 (08:37→21:00)
[2023-01-23] MEDS: ESCITALOPRAM OXALATE 10 MG TABLET GT SCH (08:38)
[2023-01-23] MEDS: MIRALAX 17 GM POWD.PACK GT SCH (08:38)
[2023-01-23] MEDS: POTASSIUM CHLORIDE 40 MEQ/30 ML LIQUID UDC GT SCH (08:39)
[2023-01-23] MEDS: REMEDY ESSENTIAL ZINC PASTE 113 GM TP SCH ×2 (08:40→21:00)
[2023-01-23 14:34] VITALS: O2SAT 98
[2023-01-23] MEDS: CRANBERRY 500 MG GT SCH (21:00)
[2023-01-23] MEDS: OMEGA-3 FATTY ACIDS/FISH OIL CAPSULE GT SCH (21:00)
[2023-01-23] MEDS: MELATONIN 3MG TABLET GT SCH (21:00)
[2023-01-23] MEDS: RIVAROXABAN 15 MG TABLET GT SCH (21:00)
[2023-01-23] MEDS: NUTRISOURCE FIBER 4 GM PACKET GT SCH (21:00)
[2023-01-23] MEDS: PROTEIN SUPPLEMENT (PROSTAT) 30 ML LIQUID GT SCH (21:00)
[2023-01-23] MEDS: MAGNESIUM COMPLEX GT SCH (21:00)
[2023-01-23 21:20] VITALS: O2SAT 99
[2023-01-23 21:30] VITALS: O2SAT 97
[2023-01-23 21:45] VITALS: O2SAT 98
[2023-01-24] VITALS (7 sets, daily range): TEMP 97.8–98.5; O2SAT 98
[2023-01-24] MEDS: BACLOFEN 10 MG TABLET GT SCH ×3 (05:53→17:02)
[2023-01-24] MEDS: MULTIVIT, IRON, MIN NO. 8, FA TABLET GT SCH (05:53)
[2023-01-24] MEDS: OMEPRAZOLE 20 MG CAPSULE.DR GT SCH (05:53)
[2023-01-24] MEDS: HYDROGEN PEROXIDE 3% 118 ML BOTTLE TP SCH ×2 (08:11→09:28)
[2023-01-24] MEDS: IPRATROPIUM BROMIDE 0.5 MG/2.5 ML NEBU NEB PRN (08:11)
[2023-01-24] MEDS: ALBUTEROL SULFATE 2.5 MG/3 ML NEBU NEB PRN (08:11)
[2023-01-24] MEDS: ACIDOPHILUS/BULGARICUS CHEW TAB GT SCH ×2 (08:27→21:03)
[2023-01-24] MEDS: VALPROIC ACID 250 MG/5 ML LIQUID UDC GT SCH ×3 (08:27→21:02)
[2023-01-24] MEDS: POTASSIUM CHLORIDE 40 MEQ/30 ML LIQUID UDC GT SCH (08:27)
[2023-01-24] MEDS: ESCITALOPRAM OXALATE 10 MG TABLET GT SCH (08:27)
[2023-01-24] MEDS: DOCUSATE SODIUM 100 MG/10 ML LIQUID UDC GT SCH (08:27)
[2023-01-24] MEDS: levETIRAcetam 500 MG/5 ML LIQUID UDC GT SCH ×2 (08:27→21:03)
[2023-01-24] MEDS: POLYVINYL ALCOHOL OPHT DROPS 15 ML BOTTLE EACHEYE SCH ×3 (08:27→16:42)
[2023-01-24] MEDS: MIRALAX 17 GM POWD.PACK GT SCH (08:27)
[2023-01-24] MEDS: busPIRone 10 MG TABLET GT SCH ×3 (08:27→16:43)
[2023-01-24] MEDS: REMEDY ESSENTIAL ZINC PASTE 113 GM TP SCH ×2 (08:27→21:05)
[2023-01-24] MEDS: MELATONIN 3MG TABLET GT SCH (21:03)
[2023-01-24] MEDS: OMEGA-3 FATTY ACIDS/FISH OIL CAPSULE GT SCH (21:03)
[2023-01-24] MEDS: CRANBERRY 500 MG GT SCH (21:04)
[2023-01-24] MEDS: PROTEIN SUPPLEMENT (PROSTAT) 30 ML LIQUID GT SCH (21:04)
[2023-01-24] MEDS: MAGNESIUM COMPLEX GT SCH (21:04)
[2023-01-24] MEDS: NUTRISOURCE FIBER 4 GM PACKET GT SCH (21:04)
[2023-01-24] MEDS: RIVAROXABAN 15 MG TABLET GT SCH (21:05)
[2023-01-25] MEDS: BACLOFEN 10 MG TABLET GT SCH ×4 (00:29→17:32)
[2023-01-25] MEDS: MULTIVIT, IRON, MIN NO. 8, FA TABLET GT SCH (05:24)
[2023-01-25] MEDS: OMEPRAZOLE 20 MG CAPSULE.DR GT SCH (05:24)
[2023-01-25] MEDS: HYDROGEN PEROXIDE 3% 118 ML BOTTLE TP SCH ×2 (08:09→19:33)
[2023-01-25] MEDS: ESCITALOPRAM OXALATE 10 MG TABLET GT SCH (08:27)
[2023-01-25] MEDS: POLYVINYL ALCOHOL OPHT DROPS 15 ML BOTTLE EACHEYE SCH ×3 (08:27→17:31)
[2023-01-25] MEDS: ACIDOPHILUS/BULGARICUS CHEW TAB GT SCH ×2 (08:27→21:01)
[2023-01-25] MEDS: levETIRAcetam 500 MG/5 ML LIQUID UDC GT SCH ×2 (08:27→21:02)
[2023-01-25] MEDS: DOCUSATE SODIUM 100 MG/10 ML LIQUID UDC GT SCH (08:27)
[2023-01-25] MEDS: busPIRone 10 MG TABLET GT SCH ×3 (08:27→17:31)
[2023-01-25] MEDS: VALPROIC ACID 250 MG/5 ML LIQUID UDC GT SCH ×3 (08:27→21:00)
[2023-01-25 08:28] VITALS: TEMP 97.7
[2023-01-25] MEDS: POTASSIUM CHLORIDE 40 MEQ/30 ML LIQUID UDC GT SCH (08:28)
[2023-01-25] MEDS: REMEDY ESSENTIAL ZINC PASTE 113 GM TP SCH ×2 (08:28→21:03)
[2023-01-25] MEDS: MIRALAX 17 GM POWD.PACK GT SCH (08:28)
[2023-01-25 10:40] VITALS: O2SAT 98
[2023-01-25] MEDS: TWOCAL HN 1,000 ML LIQUID GT PRN (17:55)
[2023-01-25 20:00] VITALS: TEMP 97.9
[2023-01-25] MEDS: MELATONIN 3MG TABLET GT SCH (21:01)
[2023-01-25] MEDS: OMEGA-3 FATTY ACIDS/FISH OIL CAPSULE GT SCH (21:01)
[2023-01-25] MEDS: NUTRISOURCE FIBER 4 GM PACKET GT SCH (21:02)
[2023-01-25] MEDS: PROTEIN SUPPLEMENT (PROSTAT) 30 ML LIQUID GT SCH (21:02)
[2023-01-25] MEDS: CRANBERRY 500 MG GT SCH (21:02)
[2023-01-25] MEDS: MAGNESIUM COMPLEX GT SCH (21:02)
[2023-01-25] MEDS: RIVAROXABAN 15 MG TABLET GT SCH (21:03)
[2023-01-25 22:59] VITALS: O2SAT 99
[2023-01-26] MEDS: BACLOFEN 10 MG TABLET GT SCH ×4 (00:54→17:31)
[2023-01-26] MEDS: OMEPRAZOLE 20 MG CAPSULE.DR GT SCH (05:42)
[2023-01-26] MEDS: MULTIVIT, IRON, MIN NO. 8, FA TABLET GT SCH (05:42)
[2023-01-26 07:16] VITALS: TEMP 97.8
[2023-01-26 07:52] VITALS: TEMP 98.6
[2023-01-26] MEDS: VALPROIC ACID 250 MG/5 ML LIQUID UDC GT SCH ×3 (08:00→21:00)
[2023-01-26] MEDS: DOCUSATE SODIUM 100 MG/10 ML LIQUID UDC GT SCH (09:00)
[2023-01-26] MEDS: MIRALAX 17 GM POWD.PACK GT SCH (09:00)
[2023-01-26] MEDS: POLYVINYL ALCOHOL OPHT DROPS 15 ML BOTTLE EACHEYE SCH ×3 (09:00→17:31)
[2023-01-26] MEDS: busPIRone 10 MG TABLET GT SCH ×3 (09:00→17:31)
[2023-01-26] MEDS: REMEDY ESSENTIAL ZINC PASTE 113 GM TP SCH ×2 (09:00→21:00)
[2023-01-26] MEDS: COAL TAR TOP SCH (09:00)
[2023-01-26] MEDS: ESCITALOPRAM OXALATE 10 MG TABLET GT SCH (09:00)
[2023-01-26] MEDS: HYDROGEN PEROXIDE 3% 118 ML BOTTLE TP SCH ×2 (09:00→21:00)
[2023-01-26] MEDS: POTASSIUM CHLORIDE 40 MEQ/30 ML LIQUID UDC GT SCH (09:00)
[2023-01-26] MEDS: ACIDOPHILUS/BULGARICUS CHEW TAB GT SCH ×2 (09:00→21:00)
[2023-01-26] MEDS: levETIRAcetam 500 MG/5 ML LIQUID UDC GT SCH ×2 (09:00→21:00)
[2023-01-26 10:25] VITALS: O2SAT 99
[2023-01-26] MEDS: PROTEIN SUPPLEMENT (PROSTAT) 30 ML LIQUID GT SCH (21:00)
[2023-01-26] MEDS: OMEGA-3 FATTY ACIDS/FISH OIL CAPSULE GT SCH (21:00)
[2023-01-26] MEDS: MELATONIN 3MG TABLET GT SCH (21:00)
[2023-01-26] MEDS: MAGNESIUM COMPLEX GT SCH (21:00)
[2023-01-26] MEDS: NUTRISOURCE FIBER 4 GM PACKET GT SCH (21:00)
[2023-01-26] MEDS: CRANBERRY 500 MG GT SCH (21:00)
[2023-01-26] MEDS: RIVAROXABAN 15 MG TABLET GT SCH (21:00)
[2023-01-26 22:51] VITALS: TEMP 97.7
[2023-01-27] MEDS: BACLOFEN 10 MG TABLET GT SCH ×4 (00:31→17:00)
[2023-01-27] MEDS: OMEPRAZOLE 20 MG CAPSULE.DR GT SCH (05:43)
[2023-01-27] MEDS: MULTIVIT, IRON, MIN NO. 8, FA TABLET GT SCH (05:43)
[2023-01-27 07:15] VITALS: TEMP 97.9
[2023-01-27] MEDS: HYDROGEN PEROXIDE 3% 118 ML BOTTLE TP SCH ×2 (08:10→21:14)
[2023-01-27] MEDS: VALPROIC ACID 250 MG/5 ML LIQUID UDC GT SCH ×3 (08:36→21:57)
[2023-01-27] MEDS: POLYVINYL ALCOHOL OPHT DROPS 15 ML BOTTLE EACHEYE SCH ×3 (08:36→16:58)
[2023-01-27] MEDS: busPIRone 10 MG TABLET GT SCH ×3 (08:37→16:58)
[2023-01-27] MEDS: ACIDOPHILUS/BULGARICUS CHEW TAB GT SCH ×2 (08:38→21:57)
[2023-01-27] MEDS: DOCUSATE SODIUM 100 MG/10 ML LIQUID UDC GT SCH (08:38)
[2023-01-27] MEDS: REMEDY ESSENTIAL ZINC PASTE 113 GM TP SCH ×2 (08:41→21:59)
[2023-01-27] MEDS: POTASSIUM CHLORIDE 40 MEQ/30 ML LIQUID UDC GT SCH (08:41)
[2023-01-27] MEDS: levETIRAcetam 500 MG/5 ML LIQUID UDC GT SCH ×2 (08:41→21:57)
[2023-01-27] MEDS: MIRALAX 17 GM POWD.PACK GT SCH (08:41)
[2023-01-27] MEDS: ESCITALOPRAM OXALATE 10 MG TABLET GT SCH (08:41)
[2023-01-27 10:40] VITALS: O2SAT 98
[2023-01-27] MEDS: TWOCAL HN 1,000 ML LIQUID GT PRN (16:54)
[2023-01-27 20:41] VITALS: TEMP 97.9
[2023-01-27 21:15] VITALS: O2SAT 99
[2023-01-27] MEDS: IPRATROPIUM BROMIDE 0.5 MG/2.5 ML NEBU NEB PRN (21:15)
[2023-01-27] MEDS: ALBUTEROL SULFATE 2.5 MG/3 ML NEBU NEB PRN (21:15)
[2023-01-27 21:30] VITALS: O2SAT 98; O2SAT 99
[2023-01-27] MEDS: OMEGA-3 FATTY ACIDS/FISH OIL CAPSULE GT SCH (21:57)
[2023-01-27] MEDS: MELATONIN 3MG TABLET GT SCH (21:57)
[2023-01-27] MEDS: MAGNESIUM COMPLEX GT SCH (21:57)
[2023-01-27] MEDS: CRANBERRY 500 MG GT SCH (21:57)
[2023-01-27] MEDS: NUTRISOURCE FIBER 4 GM PACKET GT SCH (21:58)
[2023-01-27] MEDS: RIVAROXABAN 15 MG TABLET GT SCH (21:58)
[2023-01-27] MEDS: PROTEIN SUPPLEMENT (PROSTAT) 30 ML LIQUID GT SCH (21:58)
[2023-01-28] MEDS: BACLOFEN 10 MG TABLET GT SCH ×5 (00:19→23:28)
[2023-01-28] MEDS: MULTIVIT, IRON, MIN NO. 8, FA TABLET GT SCH (06:35)
[2023-01-28] MEDS: OMEPRAZOLE 20 MG CAPSULE.DR GT SCH (06:35)
[2023-01-28] MEDS: HYDROGEN PEROXIDE 3% 118 ML BOTTLE TP SCH ×2 (07:09→19:17)
[2023-01-28] MEDS: VALPROIC ACID 250 MG/5 ML LIQUID UDC GT SCH ×3 (08:21→21:25)
[2023-01-28] MEDS: POLYVINYL ALCOHOL OPHT DROPS 15 ML BOTTLE EACHEYE SCH ×3 (08:22→17:16)
[2023-01-28] MEDS: busPIRone 10 MG TABLET GT SCH ×3 (08:22→17:16)
[2023-01-28] MEDS: ACIDOPHILUS/BULGARICUS CHEW TAB GT SCH ×2 (08:23→21:25)
[2023-01-28] MEDS: DOCUSATE SODIUM 100 MG/10 ML LIQUID UDC GT SCH (08:23)
[2023-01-28] MEDS: ESCITALOPRAM OXALATE 10 MG TABLET GT SCH (08:29)
[2023-01-28] MEDS: levETIRAcetam 500 MG/5 ML LIQUID UDC GT SCH ×2 (08:29→21:25)
[2023-01-28] MEDS: MIRALAX 17 GM POWD.PACK GT SCH (08:30)
[2023-01-28] MEDS: POTASSIUM CHLORIDE 40 MEQ/30 ML LIQUID UDC GT SCH (08:31)
[2023-01-28] MEDS: REMEDY ESSENTIAL ZINC PASTE 113 GM TP SCH ×2 (08:31→21:26)
[2023-01-28 10:35] VITALS: O2SAT 99
[2023-01-28 20:06] VITALS: TEMP 98.9
[2023-01-28 20:40] VITALS: O2SAT 97
[2023-01-28 20:55] VITALS: O2SAT 98; O2SAT 99
[2023-01-28] MEDS: OMEGA-3 FATTY ACIDS/FISH OIL CAPSULE GT SCH (21:25)
[2023-01-28] MEDS: MELATONIN 3MG TABLET GT SCH (21:25)
[2023-01-28] MEDS: CRANBERRY 500 MG GT SCH (21:25)
[2023-01-28] MEDS: PROTEIN SUPPLEMENT (PROSTAT) 30 ML LIQUID GT SCH (21:25)
[2023-01-28] MEDS: NUTRISOURCE FIBER 4 GM PACKET GT SCH (21:25)
[2023-01-28] MEDS: MAGNESIUM COMPLEX GT SCH (21:25)
[2023-01-28] MEDS: RIVAROXABAN 15 MG TABLET GT SCH (21:26)
[2023-01-28] MEDS: ACETAMINOPHEN 650 MG/20 ML UDC- SA PATIENTS-PAIN ONLY GT PRN (21:26)
[2023-01-29] MEDS: OMEPRAZOLE 20 MG CAPSULE.DR GT SCH (05:09)
[2023-01-29] MEDS: MULTIVIT, IRON, MIN NO. 8, FA TABLET GT SCH (05:09)
[2023-01-29] MEDS: BACLOFEN 10 MG TABLET GT SCH ×3 (05:09→17:11)
[2023-01-29 07:32] VITALS: TEMP 97.3
[2023-01-29] MEDS: POLYVINYL ALCOHOL OPHT DROPS 15 ML BOTTLE EACHEYE SCH ×3 (08:49→17:15)
[2023-01-29] MEDS: VALPROIC ACID 250 MG/5 ML LIQUID UDC GT SCH ×3 (08:49→21:29)
[2023-01-29] MEDS: busPIRone 10 MG TABLET GT SCH ×3 (08:50→17:08)
[2023-01-29] MEDS: ACIDOPHILUS/BULGARICUS CHEW TAB GT SCH ×2 (08:52→21:29)
[2023-01-29] MEDS: levETIRAcetam 500 MG/5 ML LIQUID UDC GT SCH ×2 (08:52→21:29)
[2023-01-29] MEDS: DOCUSATE SODIUM 100 MG/10 ML LIQUID UDC GT SCH (08:52)
[2023-01-29] MEDS: COAL TAR TOP SCH (08:53)
[2023-01-29] MEDS: MIRALAX 17 GM POWD.PACK GT SCH (08:53)
[2023-01-29] MEDS: REMEDY ESSENTIAL ZINC PASTE 113 GM TP SCH ×2 (08:53→21:29)
[2023-01-29] MEDS: ESCITALOPRAM OXALATE 10 MG TABLET GT SCH (08:53)
[2023-01-29] MEDS: POTASSIUM CHLORIDE 40 MEQ/30 ML LIQUID UDC GT SCH (08:53)
[2023-01-29 09:00] VITALS: O2SAT 99
[2023-01-29] MEDS: HYDROGEN PEROXIDE 3% 118 ML BOTTLE TP SCH ×2 (09:00→19:07)
[2023-01-29] MEDS: TWOCAL HN 1,000 ML LIQUID GT PRN (14:07)
[2023-01-29 20:30] VITALS: TEMP 98.4
[2023-01-29 20:50] VITALS: O2SAT 97
[2023-01-29 21:05] VITALS: O2SAT 98; O2SAT 99
[2023-01-29] MEDS: NUTRISOURCE FIBER 4 GM PACKET GT SCH (21:29)
[2023-01-29] MEDS: MELATONIN 3MG TABLET GT SCH (21:29)
[2023-01-29] MEDS: RIVAROXABAN 15 MG TABLET GT SCH (21:29)
[2023-01-29] MEDS: OMEGA-3 FATTY ACIDS/FISH OIL CAPSULE GT SCH (21:29)
[2023-01-29] MEDS: MAGNESIUM COMPLEX GT SCH (21:29)
[2023-01-29] MEDS: PROTEIN SUPPLEMENT (PROSTAT) 30 ML LIQUID GT SCH (21:29)
[2023-01-29] MEDS: CRANBERRY 500 MG GT SCH (21:29)
[2023-01-29] MEDS: ALBUTEROL SULFATE 2.5 MG/3 ML NEBU NEB PRN (21:47)
[2023-01-29] MEDS: IPRATROPIUM BROMIDE 0.5 MG/2.5 ML NEBU NEB PRN (21:47)
[2023-01-30] VITALS (7 sets, daily range): TEMP 97.3–98.5; O2SAT 97–99
[2023-01-30] MEDS: BACLOFEN 10 MG TABLET GT SCH ×4 (05:43→17:19)
[2023-01-30] MEDS: OMEPRAZOLE 20 MG CAPSULE.DR GT SCH (05:43)
[2023-01-30] MEDS: MULTIVIT, IRON, MIN NO. 8, FA TABLET GT SCH (05:43)
[2023-01-30] MEDS: IPRATROPIUM BROMIDE 0.5 MG/2.5 ML NEBU NEB PRN ×2 (08:40→14:01)
[2023-01-30] MEDS: ALBUTEROL SULFATE 2.5 MG/3 ML NEBU NEB PRN ×2 (08:40→14:01)
[2023-01-30] MEDS: VALPROIC ACID 250 MG/5 ML LIQUID UDC GT SCH ×3 (08:59→21:46)
[2023-01-30] MEDS: POLYVINYL ALCOHOL OPHT DROPS 15 ML BOTTLE EACHEYE SCH ×3 (09:08→17:16)
[2023-01-30] MEDS: busPIRone 10 MG TABLET GT SCH ×3 (09:08→17:16)
[2023-01-30] MEDS: ESCITALOPRAM OXALATE 10 MG TABLET GT SCH (09:09)
[2023-01-30] MEDS: levETIRAcetam 500 MG/5 ML LIQUID UDC GT SCH ×2 (09:09→21:47)
[2023-01-30] MEDS: DOCUSATE SODIUM 100 MG/10 ML LIQUID UDC GT SCH (09:09)
[2023-01-30] MEDS: ACIDOPHILUS/BULGARICUS CHEW TAB GT SCH ×2 (09:09→21:47)
[2023-01-30] MEDS: POTASSIUM CHLORIDE 40 MEQ/30 ML LIQUID UDC GT SCH (09:10)
[2023-01-30] MEDS: MIRALAX 17 GM POWD.PACK GT SCH (09:10)
[2023-01-30] MEDS: REMEDY ESSENTIAL ZINC PASTE 113 GM TP SCH ×2 (09:11→21:47)
[2023-01-30] MEDS: HYDROGEN PEROXIDE 3% 118 ML BOTTLE TP SCH ×2 (10:50→21:21)
[2023-01-30] MEDS: RIVAROXABAN 15 MG TABLET GT SCH (21:00)
[2023-01-30] MEDS: CRANBERRY 500 MG GT SCH (21:47)
[2023-01-30] MEDS: OMEGA-3 FATTY ACIDS/FISH OIL CAPSULE GT SCH (21:47)
[2023-01-30] MEDS: MELATONIN 3MG TABLET GT SCH (21:47)
[2023-01-30] MEDS: MAGNESIUM COMPLEX GT SCH (21:47)
[2023-01-30] MEDS: NUTRISOURCE FIBER 4 GM PACKET GT SCH (21:47)
[2023-01-30] MEDS: PROTEIN SUPPLEMENT (PROSTAT) 30 ML LIQUID GT SCH (21:47)
[2023-01-31] MEDS: TWOCAL HN 1,000 ML LIQUID GT PRN (03:35)
[2023-01-31] MEDS: BACLOFEN 10 MG TABLET GT SCH ×5 (05:25→23:02)
[2023-01-31] MEDS: OMEPRAZOLE 20 MG CAPSULE.DR GT SCH (05:26)
[2023-01-31] MEDS: MULTIVIT, IRON, MIN NO. 8, FA TABLET GT SCH (05:26)
[2023-01-31] MEDS: HYDROGEN PEROXIDE 3% 118 ML BOTTLE TP SCH ×2 (07:25→21:00)
[2023-01-31 08:17] VITALS: TEMP 97.7
[2023-01-31] MEDS: VALPROIC ACID 250 MG/5 ML LIQUID UDC GT SCH ×3 (08:35→21:57)
[2023-01-31] MEDS: POLYVINYL ALCOHOL OPHT DROPS 15 ML BOTTLE EACHEYE SCH ×3 (08:35→17:17)
[2023-01-31] MEDS: DOCUSATE SODIUM 100 MG/10 ML LIQUID UDC GT SCH (08:36)
[2023-01-31] MEDS: busPIRone 10 MG TABLET GT SCH ×3 (08:36→17:17)
[2023-01-31] MEDS: ACIDOPHILUS/BULGARICUS CHEW TAB GT SCH ×2 (08:36→21:57)
[2023-01-31] MEDS: levETIRAcetam 500 MG/5 ML LIQUID UDC GT SCH ×2 (08:36→21:57)
[2023-01-31] MEDS: MIRALAX 17 GM POWD.PACK GT SCH (08:37)
[2023-01-31] MEDS: ESCITALOPRAM OXALATE 10 MG TABLET GT SCH (08:37)
[2023-01-31] MEDS: POTASSIUM CHLORIDE 40 MEQ/30 ML LIQUID UDC GT SCH (08:38)
[2023-01-31] MEDS: REMEDY ESSENTIAL ZINC PASTE 113 GM TP SCH ×2 (08:38→21:58)
[2023-01-31 10:40] VITALS: O2SAT 98
[2023-01-31 20:38] VITALS: TEMP 98.6
[2023-01-31 21:10] VITALS: O2SAT 99
[2023-01-31] MEDS: MELATONIN 3MG TABLET GT SCH (21:57)
[2023-01-31] MEDS: PROTEIN SUPPLEMENT (PROSTAT) 30 ML LIQUID GT SCH (21:57)
[2023-01-31] MEDS: CRANBERRY 500 MG GT SCH (21:57)
[2023-01-31] MEDS: NUTRISOURCE FIBER 4 GM PACKET GT SCH (21:57)
[2023-01-31] MEDS: OMEGA-3 FATTY ACIDS/FISH OIL CAPSULE GT SCH (21:57)
[2023-01-31] MEDS: MAGNESIUM COMPLEX GT SCH (21:57)
[2023-01-31] MEDS: RIVAROXABAN 15 MG TABLET GT SCH (21:58)
[2023-01-31] MEDS: diphenhydrAMINE 25 MG/10 ML UDC GT PRN (23:02)
[2023-02-01] MEDS: MULTIVIT, IRON, MIN NO. 8, FA TABLET GT SCH (05:16)
[2023-02-01] MEDS: BACLOFEN 10 MG TABLET GT SCH ×3 (05:16→17:03)
[2023-02-01] MEDS: OMEPRAZOLE 20 MG CAPSULE.DR GT SCH (05:16)
[2023-02-01 07:58] VITALS: TEMP 97.3
[2023-02-01] MEDS: VALPROIC ACID 250 MG/5 ML LIQUID UDC GT SCH ×3 (08:00→21:57)
[2023-02-01] MEDS: HYDROGEN PEROXIDE 3% 118 ML BOTTLE TP SCH ×2 (08:20→19:22)
[2023-02-01] MEDS: levETIRAcetam 500 MG/5 ML LIQUID UDC GT SCH ×2 (09:00→21:57)
[2023-02-01] MEDS: POLYVINYL ALCOHOL OPHT DROPS 15 ML BOTTLE EACHEYE SCH ×3 (09:00→17:00)
[2023-02-01] MEDS: ESCITALOPRAM OXALATE 10 MG TABLET GT SCH (09:00)
[2023-02-01] MEDS: MIRALAX 17 GM POWD.PACK GT SCH (09:00)
[2023-02-01] MEDS: REMEDY ESSENTIAL ZINC PASTE 113 GM TP SCH ×2 (09:00→21:58)
[2023-02-01] MEDS: busPIRone 10 MG TABLET GT SCH ×3 (09:00→17:01)
[2023-02-01] MEDS: DOCUSATE SODIUM 100 MG/10 ML LIQUID UDC GT SCH (09:00)
[2023-02-01] MEDS: ACIDOPHILUS/BULGARICUS CHEW TAB GT SCH ×2 (09:00→21:57)
[2023-02-01] MEDS: POTASSIUM CHLORIDE 40 MEQ/30 ML LIQUID UDC GT SCH (09:00)
[2023-02-01 13:25] VITALS: O2SAT 98
[2023-02-01] MEDS: BISACODYL 10 MG SUPP.RECT RC PRN (18:48)
[2023-02-01 20:15] VITALS: O2SAT 99
[2023-02-01 21:52] VITALS: TEMP 98.1
[2023-02-01] MEDS: CRANBERRY 500 MG GT SCH (21:57)
[2023-02-01] MEDS: MAGNESIUM COMPLEX GT SCH (21:57)
[2023-02-01] MEDS: PROTEIN SUPPLEMENT (PROSTAT) 30 ML LIQUID GT SCH (21:57)
[2023-02-01] MEDS: NUTRISOURCE FIBER 4 GM PACKET GT SCH (21:57)
[2023-02-01] MEDS: MELATONIN 3MG TABLET GT SCH (21:57)
[2023-02-01] MEDS: OMEGA-3 FATTY ACIDS/FISH OIL CAPSULE GT SCH (21:57)
[2023-02-01] MEDS: RIVAROXABAN 15 MG TABLET GT SCH (21:58)
[2023-02-02] MEDS: TWOCAL HN 1,000 ML LIQUID GT PRN (02:32)
[2023-02-02] MEDS: ACETAMINOPHEN 650 MG/20 ML UDC- SA PATIENTS-PAIN ONLY GT PRN (02:47)
[2023-02-02] MEDS: MULTIVIT, IRON, MIN NO. 8, FA TABLET GT SCH (05:50)
[2023-02-02] MEDS: OMEPRAZOLE 20 MG CAPSULE.DR GT SCH (05:50)
[2023-02-02] MEDS: BACLOFEN 10 MG TABLET GT SCH ×4 (05:50→17:19)
[2023-02-02 07:19] VITALS: TEMP 97.3
[2023-02-02] MEDS: VALPROIC ACID 250 MG/5 ML LIQUID UDC GT SCH ×3 (08:39→21:00)
[2023-02-02] MEDS: busPIRone 10 MG TABLET GT SCH ×3 (08:40→17:17)
[2023-02-02] MEDS: DOCUSATE SODIUM 100 MG/10 ML LIQUID UDC GT SCH (08:40)
[2023-02-02] MEDS: POLYVINYL ALCOHOL OPHT DROPS 15 ML BOTTLE EACHEYE SCH ×3 (08:40→17:17)
[2023-02-02] MEDS: levETIRAcetam 500 MG/5 ML LIQUID UDC GT SCH ×2 (08:41→21:00)
[2023-02-02] MEDS: MIRALAX 17 GM POWD.PACK GT SCH (08:41)
[2023-02-02] MEDS: POTASSIUM CHLORIDE 40 MEQ/30 ML LIQUID UDC GT SCH (08:41)
[2023-02-02] MEDS: ACIDOPHILUS/BULGARICUS CHEW TAB GT SCH ×2 (08:41→21:00)
[2023-02-02] MEDS: ESCITALOPRAM OXALATE 10 MG TABLET GT SCH (08:41)
[2023-02-02] MEDS: REMEDY ESSENTIAL ZINC PASTE 113 GM TP SCH ×2 (08:42→21:00)
[2023-02-02] MEDS: HYDROGEN PEROXIDE 3% 118 ML BOTTLE TP SCH ×2 (09:00→20:40)
[2023-02-02] MEDS: COAL TAR TOP SCH (09:00)
[2023-02-02 10:30] VITALS: O2SAT 98
[2023-02-02 15:44] VITALS: O2SAT 98
[2023-02-02 20:00] VITALS: TEMP 97.8
[2023-02-02 20:40] VITALS: O2SAT 99
[2023-02-02] MEDS: RIVAROXABAN 15 MG TABLET GT SCH (21:00)
[2023-02-02] MEDS: CRANBERRY 500 MG GT SCH (21:00)
[2023-02-02] MEDS: MAGNESIUM COMPLEX GT SCH (21:00)
[2023-02-02] MEDS: NUTRISOURCE FIBER 4 GM PACKET GT SCH (21:00)
[2023-02-02] MEDS: PROTEIN SUPPLEMENT (PROSTAT) 30 ML LIQUID GT SCH (21:00)
[2023-02-02] MEDS: OMEGA-3 FATTY ACIDS/FISH OIL CAPSULE GT SCH (21:00)
[2023-02-02] MEDS: MELATONIN 3MG TABLET GT SCH (21:00)
[2023-02-03] MEDS: BACLOFEN 10 MG TABLET GT SCH ×4 (00:36→17:06)
[2023-02-03] MEDS: OMEPRAZOLE 20 MG CAPSULE.DR GT SCH (05:57)
[2023-02-03] MEDS: MULTIVIT, IRON, MIN NO. 8, FA TABLET GT SCH (05:57)
[2023-02-03 07:18] VITALS: TEMP 98.5
[2023-02-03] MEDS: HYDROGEN PEROXIDE 3% 118 ML BOTTLE TP SCH ×2 (08:29→19:17)
[2023-02-03] MEDS: POLYVINYL ALCOHOL OPHT DROPS 15 ML BOTTLE EACHEYE SCH ×3 (08:35→17:03)
[2023-02-03] MEDS: VALPROIC ACID 250 MG/5 ML LIQUID UDC GT SCH ×3 (08:35→21:00)
[2023-02-03] MEDS: busPIRone 10 MG TABLET GT SCH ×3 (08:35→17:06)
[2023-02-03] MEDS: DOCUSATE SODIUM 100 MG/10 ML LIQUID UDC GT SCH (08:35)
[2023-02-03] MEDS: levETIRAcetam 500 MG/5 ML LIQUID UDC GT SCH ×2 (08:36→21:00)
[2023-02-03] MEDS: MIRALAX 17 GM POWD.PACK GT SCH (08:36)
[2023-02-03] MEDS: POTASSIUM CHLORIDE 40 MEQ/30 ML LIQUID UDC GT SCH (08:36)
[2023-02-03] MEDS: ACIDOPHILUS/BULGARICUS CHEW TAB GT SCH ×2 (08:36→21:00)
[2023-02-03] MEDS: ESCITALOPRAM OXALATE 10 MG TABLET GT SCH (08:36)
[2023-02-03] MEDS: REMEDY ESSENTIAL ZINC PASTE 113 GM TP SCH ×2 (08:37→21:00)
[2023-02-03 13:10] VITALS: O2SAT 98
[2023-02-03 20:08] VITALS: TEMP 96.9
[2023-02-03] MEDS: CRANBERRY 500 MG GT SCH (21:00)
[2023-02-03] MEDS: OMEGA-3 FATTY ACIDS/FISH OIL CAPSULE GT SCH (21:00)
[2023-02-03] MEDS: MELATONIN 3MG TABLET GT SCH (21:00)
[2023-02-03] MEDS: NUTRISOURCE FIBER 4 GM PACKET GT SCH (21:00)
[2023-02-03] MEDS: PROTEIN SUPPLEMENT (PROSTAT) 30 ML LIQUID GT SCH (21:00)
[2023-02-03] MEDS: MAGNESIUM COMPLEX GT SCH (21:00)
[2023-02-03] MEDS: RIVAROXABAN 15 MG TABLET GT SCH (21:00)
[2023-02-03 21:55] VITALS: O2SAT 99
[2023-02-04] MEDS: TWOCAL HN 1,000 ML LIQUID GT PRN (03:36)
[2023-02-04] MEDS: OMEPRAZOLE 20 MG CAPSULE.DR GT SCH (05:54)
[2023-02-04] MEDS: MULTIVIT, IRON, MIN NO. 8, FA TABLET GT SCH (05:54)
[2023-02-04] MEDS: BACLOFEN 10 MG TABLET GT SCH ×4 (05:54→17:16)
[2023-02-04 07:15] VITALS: O2SAT 98
[2023-02-04 07:17] VITALS: TEMP 97.7
[2023-02-04] MEDS: VALPROIC ACID 250 MG/5 ML LIQUID UDC GT SCH ×3 (08:00→21:00)
[2023-02-04] MEDS: HYDROGEN PEROXIDE 3% 118 ML BOTTLE TP SCH ×2 (09:00→19:17)
[2023-02-04] MEDS: busPIRone 10 MG TABLET GT SCH ×3 (09:02→17:14)
[2023-02-04] MEDS: POLYVINYL ALCOHOL OPHT DROPS 15 ML BOTTLE EACHEYE SCH ×3 (09:02→17:13)
[2023-02-04] MEDS: DOCUSATE SODIUM 100 MG/10 ML LIQUID UDC GT SCH (09:03)
[2023-02-04] MEDS: ACIDOPHILUS/BULGARICUS CHEW TAB GT SCH ×2 (09:03→21:00)
[2023-02-04] MEDS: levETIRAcetam 500 MG/5 ML LIQUID UDC GT SCH ×2 (09:04→21:00)
[2023-02-04] MEDS: ESCITALOPRAM OXALATE 10 MG TABLET GT SCH (09:04)
[2023-02-04] MEDS: MIRALAX 17 GM POWD.PACK GT SCH (09:05)
[2023-02-04] MEDS: POTASSIUM CHLORIDE 40 MEQ/30 ML LIQUID UDC GT SCH (09:05)
[2023-02-04] MEDS: REMEDY ESSENTIAL ZINC PASTE 113 GM TP SCH ×2 (09:06→21:00)
[2023-02-04 14:11] VITALS: O2SAT 98
[2023-02-04 20:08] VITALS: TEMP 98.3
[2023-02-04] MEDS: CRANBERRY 500 MG GT SCH (21:00)
[2023-02-04] MEDS: RIVAROXABAN 15 MG TABLET GT SCH (21:00)
[2023-02-04] MEDS: PROTEIN SUPPLEMENT (PROSTAT) 30 ML LIQUID GT SCH (21:00)
[2023-02-04] MEDS: OMEGA-3 FATTY ACIDS/FISH OIL CAPSULE GT SCH (21:00)
[2023-02-04] MEDS: MELATONIN 3MG TABLET GT SCH (21:00)
[2023-02-04] MEDS: NUTRISOURCE FIBER 4 GM PACKET GT SCH (21:00)
[2023-02-04] MEDS: MAGNESIUM COMPLEX GT SCH (21:00)
[2023-02-04 21:15] VITALS: O2SAT 99
[2023-02-05] MEDS: BACLOFEN 10 MG TABLET GT SCH ×4 (00:12→17:12)
[2023-02-05] MEDS: OMEPRAZOLE 20 MG CAPSULE.DR GT SCH (05:34)
[2023-02-05] MEDS: MULTIVIT, IRON, MIN NO. 8, FA TABLET GT SCH (05:35)
[2023-02-05 07:34] VITALS: TEMP 97.5
[2023-02-05] MEDS: POLYVINYL ALCOHOL OPHT DROPS 15 ML BOTTLE EACHEYE SCH ×3 (08:23→17:09)
[2023-02-05] MEDS: VALPROIC ACID 250 MG/5 ML LIQUID UDC GT SCH ×3 (08:23→21:00)
[2023-02-05] MEDS: DOCUSATE SODIUM 100 MG/10 ML LIQUID UDC GT SCH (08:24)
[2023-02-05] MEDS: busPIRone 10 MG TABLET GT SCH ×3 (08:24→17:10)
[2023-02-05] MEDS: levETIRAcetam 500 MG/5 ML LIQUID UDC GT SCH ×2 (08:25→21:00)
[2023-02-05] MEDS: ACIDOPHILUS/BULGARICUS CHEW TAB GT SCH ×2 (08:25→21:00)
[2023-02-05] MEDS: ESCITALOPRAM OXALATE 10 MG TABLET GT SCH (08:26)
[2023-02-05] MEDS: MIRALAX 17 GM POWD.PACK GT SCH (08:26)
[2023-02-05] MEDS: POTASSIUM CHLORIDE 40 MEQ/30 ML LIQUID UDC GT SCH (08:27)
[2023-02-05] MEDS: REMEDY ESSENTIAL ZINC PASTE 113 GM TP SCH ×2 (08:28→21:00)
[2023-02-05] MEDS: COAL TAR TOP SCH (08:28)
[2023-02-05] MEDS: HYDROGEN PEROXIDE 3% 118 ML BOTTLE TP SCH (09:00)
[2023-02-05 10:40] VITALS: O2SAT 98
[2023-02-05 20:06] VITALS: O2SAT 99
[2023-02-05 20:14] VITALS: TEMP 98.5
[2023-02-05] MEDS: MELATONIN 3MG TABLET GT SCH (21:00)
[2023-02-05] MEDS: RIVAROXABAN 15 MG TABLET GT SCH (21:00)
[2023-02-05] MEDS: OMEGA-3 FATTY ACIDS/FISH OIL CAPSULE GT SCH (21:00)
[2023-02-05] MEDS: PROTEIN SUPPLEMENT (PROSTAT) 30 ML LIQUID GT SCH (21:00)
[2023-02-05] MEDS: CRANBERRY 500 MG GT SCH (21:00)
[2023-02-05] MEDS: NUTRISOURCE FIBER 4 GM PACKET GT SCH (21:00)
[2023-02-05] MEDS: MAGNESIUM COMPLEX GT SCH (21:00)
[2023-02-06] MEDS: BACLOFEN 10 MG TABLET GT SCH ×4 (00:39→17:38)
[2023-02-06] MEDS: TWOCAL HN 1,000 ML LIQUID GT PRN (01:00)
[2023-02-06] MEDS: HYDROGEN PEROXIDE 3% 118 ML BOTTLE TP SCH ×3 (01:08→19:17)
[2023-02-06] MEDS: OMEPRAZOLE 20 MG CAPSULE.DR GT SCH (05:50)
[2023-02-06] MEDS: MULTIVIT, IRON, MIN NO. 8, FA TABLET GT SCH (05:50)
[2023-02-06 07:51] VITALS: TEMP 97.6
[2023-02-06] MEDS: VALPROIC ACID 250 MG/5 ML LIQUID UDC GT SCH ×3 (08:48→21:00)
[2023-02-06] MEDS: REMEDY ESSENTIAL ZINC PASTE 113 GM TP SCH ×2 (08:49→21:54)
[2023-02-06] MEDS: DOCUSATE SODIUM 100 MG/10 ML LIQUID UDC GT SCH (08:49)
[2023-02-06] MEDS: ESCITALOPRAM OXALATE 10 MG TABLET GT SCH (08:49)
[2023-02-06] MEDS: levETIRAcetam 500 MG/5 ML LIQUID UDC GT SCH ×2 (08:49→21:00)
[2023-02-06] MEDS: POTASSIUM CHLORIDE 40 MEQ/30 ML LIQUID UDC GT SCH (08:49)
[2023-02-06] MEDS: POLYVINYL ALCOHOL OPHT DROPS 15 ML BOTTLE EACHEYE SCH ×3 (08:49→17:38)
[2023-02-06] MEDS: busPIRone 10 MG TABLET GT SCH ×3 (08:49→17:38)
[2023-02-06] MEDS: MIRALAX 17 GM POWD.PACK GT SCH (08:49)
[2023-02-06] MEDS: ACIDOPHILUS/BULGARICUS CHEW TAB GT SCH ×2 (08:49→21:53)
[2023-02-06 15:55] VITALS: O2SAT 99
[2023-02-06] MEDS: ACETAMINOPHEN 650 MG/20 ML UDC- SA PATIENTS-PAIN ONLY GT PRN (17:39)
[2023-02-06 20:10] VITALS: TEMP 97.1
[2023-02-06 20:30] VITALS: O2SAT 99
[2023-02-06] MEDS: RIVAROXABAN 15 MG TABLET GT SCH (21:00)
[2023-02-06] MEDS: OMEGA-3 FATTY ACIDS/FISH OIL CAPSULE GT SCH (21:53)
[2023-02-06] MEDS: MELATONIN 3MG TABLET GT SCH (21:53)
[2023-02-06] MEDS: PROTEIN SUPPLEMENT (PROSTAT) 30 ML LIQUID GT SCH (21:54)
[2023-02-06] MEDS: CRANBERRY 500 MG GT SCH (21:54)
[2023-02-06] MEDS: NUTRISOURCE FIBER 4 GM PACKET GT SCH (21:54)
[2023-02-06] MEDS: MAGNESIUM COMPLEX GT SCH (21:54)
[2023-02-07] MEDS: OMEPRAZOLE 20 MG CAPSULE.DR GT SCH (05:18)
[2023-02-07] MEDS: BACLOFEN 10 MG TABLET GT SCH ×4 (05:18→17:09)
[2023-02-07] MEDS: MULTIVIT, IRON, MIN NO. 8, FA TABLET GT SCH (05:19)
[2023-02-07] MEDS: ACETAMINOPHEN 650 MG/20 ML UDC- SA PATIENTS-PAIN ONLY GT PRN ×2 (05:36→17:37)
[2023-02-07 07:48] VITALS: TEMP 97.5
[2023-02-07] MEDS: VALPROIC ACID 250 MG/5 ML LIQUID UDC GT SCH ×3 (08:26→21:00)
[2023-02-07] MEDS: DOCUSATE SODIUM 100 MG/10 ML LIQUID UDC GT SCH (08:27)
[2023-02-07] MEDS: busPIRone 10 MG TABLET GT SCH ×3 (08:27→17:06)
[2023-02-07] MEDS: POLYVINYL ALCOHOL OPHT DROPS 15 ML BOTTLE EACHEYE SCH ×3 (08:27→17:06)
[2023-02-07] MEDS: ACIDOPHILUS/BULGARICUS CHEW TAB GT SCH ×2 (08:29→21:00)
[2023-02-07] MEDS: levETIRAcetam 500 MG/5 ML LIQUID UDC GT SCH ×2 (08:30→21:00)
[2023-02-07] MEDS: ESCITALOPRAM OXALATE 10 MG TABLET GT SCH (08:31)
[2023-02-07] MEDS: MIRALAX 17 GM POWD.PACK GT SCH (08:31)
[2023-02-07] MEDS: POTASSIUM CHLORIDE 40 MEQ/30 ML LIQUID UDC GT SCH (08:32)
[2023-02-07] MEDS: REMEDY ESSENTIAL ZINC PASTE 113 GM TP SCH ×2 (08:33→21:00)
[2023-02-07] MEDS: HYDROGEN PEROXIDE 3% 118 ML BOTTLE TP SCH ×2 (09:00→19:17)
[2023-02-07 10:41] VITALS: O2SAT 98
[2023-02-07 20:00] VITALS: TEMP 97.4
[2023-02-07 20:01] VITALS: O2SAT 99
[2023-02-07] MEDS: PROTEIN SUPPLEMENT (PROSTAT) 30 ML LIQUID GT SCH (21:00)
[2023-02-07] MEDS: CRANBERRY 500 MG GT SCH (21:00)
[2023-02-07] MEDS: RIVAROXABAN 15 MG TABLET GT SCH (21:00)
[2023-02-07] MEDS: MAGNESIUM COMPLEX GT SCH (21:00)
[2023-02-07] MEDS: OMEGA-3 FATTY ACIDS/FISH OIL CAPSULE GT SCH (21:00)
[2023-02-07] MEDS: NUTRISOURCE FIBER 4 GM PACKET GT SCH (21:00)
[2023-02-07] MEDS: MELATONIN 3MG TABLET GT SCH (21:00)
[2023-02-08] MEDS: BACLOFEN 10 MG TABLET GT SCH ×4 (00:08→17:04)
[2023-02-08] MEDS: MULTIVIT, IRON, MIN NO. 8, FA TABLET GT SCH (06:29)
[2023-02-08] MEDS: OMEPRAZOLE 20 MG CAPSULE.DR GT SCH (06:29)
[2023-02-08] MEDS: HYDROGEN PEROXIDE 3% 118 ML BOTTLE TP SCH ×2 (08:09→21:00)
[2023-02-08 08:30] VITALS: TEMP 97.4
[2023-02-08] MEDS: VALPROIC ACID 250 MG/5 ML LIQUID UDC GT SCH ×3 (08:50→21:00)
[2023-02-08] MEDS: POLYVINYL ALCOHOL OPHT DROPS 15 ML BOTTLE EACHEYE SCH ×3 (09:09→17:04)
[2023-02-08] MEDS: ACIDOPHILUS/BULGARICUS CHEW TAB GT SCH ×2 (09:14→21:00)
[2023-02-08] MEDS: MIRALAX 17 GM POWD.PACK GT SCH (09:14)
[2023-02-08] MEDS: busPIRone 10 MG TABLET GT SCH ×3 (09:14→17:04)
[2023-02-08] MEDS: POTASSIUM CHLORIDE 40 MEQ/30 ML LIQUID UDC GT SCH (09:14)
[2023-02-08] MEDS: DOCUSATE SODIUM 100 MG/10 ML LIQUID UDC GT SCH (09:14)
[2023-02-08] MEDS: levETIRAcetam 500 MG/5 ML LIQUID UDC GT SCH ×2 (09:14→21:00)
[2023-02-08] MEDS: ESCITALOPRAM OXALATE 10 MG TABLET GT SCH (09:14)
[2023-02-08] MEDS: REMEDY ESSENTIAL ZINC PASTE 113 GM TP SCH ×2 (09:15→21:00)
[2023-02-08 16:05] VITALS: O2SAT 98
[2023-02-08] MEDS: ACETAMINOPHEN 650 MG/20 ML UDC- SA PATIENTS-PAIN ONLY GT PRN ×2 (17:06→22:00)
[2023-02-08 20:07] VITALS: TEMP 98.4
[2023-02-08 20:30] VITALS: O2SAT 99
[2023-02-08] MEDS: RIVAROXABAN 15 MG TABLET GT SCH (21:00)
[2023-02-08] MEDS: OMEGA-3 FATTY ACIDS/FISH OIL CAPSULE GT SCH (21:00)
[2023-02-08] MEDS: MAGNESIUM COMPLEX GT SCH (21:00)
[2023-02-08] MEDS: NUTRISOURCE FIBER 4 GM PACKET GT SCH (21:00)
[2023-02-08] MEDS: CRANBERRY 500 MG GT SCH (21:00)
[2023-02-08] MEDS: PROTEIN SUPPLEMENT (PROSTAT) 30 ML LIQUID GT SCH (21:00)
[2023-02-08] MEDS: MELATONIN 3MG TABLET GT SCH (21:00)
[2023-02-09] MEDS: BACLOFEN 10 MG TABLET GT SCH ×4 (00:28→17:30)
[2023-02-09] MEDS: MULTIVIT, IRON, MIN NO. 8, FA TABLET GT SCH (05:42)
[2023-02-09] MEDS: OMEPRAZOLE 20 MG CAPSULE.DR GT SCH (05:42)
[2023-02-09 07:35] VITALS: TEMP 97.5
[2023-02-09] MEDS: VALPROIC ACID 250 MG/5 ML LIQUID UDC GT SCH ×3 (08:00→21:01)
[2023-02-09] MEDS: HYDROGEN PEROXIDE 3% 118 ML BOTTLE TP SCH ×2 (08:10→19:09)
[2023-02-09] MEDS: levETIRAcetam 500 MG/5 ML LIQUID UDC GT SCH ×2 (09:16→21:04)
[2023-02-09] MEDS: ACIDOPHILUS/BULGARICUS CHEW TAB GT SCH ×2 (09:16→21:02)
[2023-02-09] MEDS: POTASSIUM CHLORIDE 40 MEQ/30 ML LIQUID UDC GT SCH (09:16)
[2023-02-09] MEDS: ESCITALOPRAM OXALATE 10 MG TABLET GT SCH (09:16)
[2023-02-09] MEDS: MIRALAX 17 GM POWD.PACK GT SCH (09:16)
[2023-02-09] MEDS: COAL TAR TOP SCH (09:16)
[2023-02-09] MEDS: DOCUSATE SODIUM 100 MG/10 ML LIQUID UDC GT SCH (09:16)
[2023-02-09] MEDS: busPIRone 10 MG TABLET GT SCH ×3 (09:16→16:57)
[2023-02-09] MEDS: POLYVINYL ALCOHOL OPHT DROPS 15 ML BOTTLE EACHEYE SCH ×3 (09:16→16:57)
[2023-02-09] MEDS: REMEDY ESSENTIAL ZINC PASTE 113 GM TP SCH ×2 (09:17→21:07)
[2023-02-09 09:45] VITALS: O2SAT 98
[2023-02-09 20:00] VITALS: TEMP 97.2
[2023-02-09 20:30] VITALS: O2SAT 99
[2023-02-09] MEDS: OMEGA-3 FATTY ACIDS/FISH OIL CAPSULE GT SCH (21:02)
[2023-02-09] MEDS: MELATONIN 3MG TABLET GT SCH (21:03)
[2023-02-09] MEDS: CRANBERRY 500 MG GT SCH (21:04)
[2023-02-09] MEDS: NUTRISOURCE FIBER 4 GM PACKET GT SCH (21:05)
[2023-02-09] MEDS: MAGNESIUM COMPLEX GT SCH (21:05)
[2023-02-09] MEDS: PROTEIN SUPPLEMENT (PROSTAT) 30 ML LIQUID GT SCH (21:06)
[2023-02-09] MEDS: RIVAROXABAN 15 MG TABLET GT SCH (21:07)
[2023-02-10] MEDS: TWOCAL HN 1,000 ML LIQUID GT PRN (02:00)
[2023-02-10] MEDS: BACLOFEN 10 MG TABLET GT SCH ×4 (05:22→17:00)
[2023-02-10] MEDS: OMEPRAZOLE 20 MG CAPSULE.DR GT SCH (05:23)
[2023-02-10] MEDS: MULTIVIT, IRON, MIN NO. 8, FA TABLET GT SCH (05:23)
[2023-02-10 07:25] VITALS: TEMP 97.3
[2023-02-10] MEDS: HYDROGEN PEROXIDE 3% 118 ML BOTTLE TP SCH ×2 (08:35→19:15)
[2023-02-10] MEDS: POLYVINYL ALCOHOL OPHT DROPS 15 ML BOTTLE EACHEYE SCH ×3 (08:49→16:59)
[2023-02-10] MEDS: VALPROIC ACID 250 MG/5 ML LIQUID UDC GT SCH ×3 (08:49→21:00)
[2023-02-10] MEDS: ESCITALOPRAM OXALATE 10 MG TABLET GT SCH (08:50)
[2023-02-10] MEDS: levETIRAcetam 500 MG/5 ML LIQUID UDC GT SCH ×2 (08:50→21:00)
[2023-02-10] MEDS: MIRALAX 17 GM POWD.PACK GT SCH (08:50)
[2023-02-10] MEDS: ACIDOPHILUS/BULGARICUS CHEW TAB GT SCH ×2 (08:50→21:00)
[2023-02-10] MEDS: busPIRone 10 MG TABLET GT SCH ×3 (08:50→16:59)
[2023-02-10] MEDS: POTASSIUM CHLORIDE 40 MEQ/30 ML LIQUID UDC GT SCH (08:50)
[2023-02-10] MEDS: DOCUSATE SODIUM 100 MG/10 ML LIQUID UDC GT SCH (08:50)
[2023-02-10] MEDS: REMEDY ESSENTIAL ZINC PASTE 113 GM TP SCH ×2 (08:55→21:00)
[2023-02-10 09:00] VITALS: O2SAT 99
[2023-02-10 19:10] VITALS: O2SAT 99
[2023-02-10 20:00] VITALS: TEMP 98.4
[2023-02-10] MEDS: RIVAROXABAN 15 MG TABLET GT SCH (21:00)
[2023-02-10] MEDS: OMEGA-3 FATTY ACIDS/FISH OIL CAPSULE GT SCH (21:00)
[2023-02-10] MEDS: NUTRISOURCE FIBER 4 GM PACKET GT SCH (21:00)
[2023-02-10] MEDS: MELATONIN 3MG TABLET GT SCH (21:00)
[2023-02-10] MEDS: CRANBERRY 500 MG GT SCH (21:00)
[2023-02-10] MEDS: MAGNESIUM COMPLEX GT SCH (21:00)
[2023-02-10] MEDS: PROTEIN SUPPLEMENT (PROSTAT) 30 ML LIQUID GT SCH (21:00)
[2023-02-11] MEDS: BACLOFEN 10 MG TABLET GT SCH ×4 (05:59→17:34)
[2023-02-11] MEDS: OMEPRAZOLE 20 MG CAPSULE.DR GT SCH (05:59)
[2023-02-11] MEDS: MULTIVIT, IRON, MIN NO. 8, FA TABLET GT SCH (05:59)
[2023-02-11 07:22] VITALS: TEMP 97.4
[2023-02-11] MEDS: VALPROIC ACID 250 MG/5 ML LIQUID UDC GT SCH ×3 (08:49→21:11)
[2023-02-11] MEDS: POLYVINYL ALCOHOL OPHT DROPS 15 ML BOTTLE EACHEYE SCH ×3 (08:49→17:33)
[2023-02-11] MEDS: ACIDOPHILUS/BULGARICUS CHEW TAB GT SCH ×2 (08:51→21:12)
[2023-02-11] MEDS: busPIRone 10 MG TABLET GT SCH ×3 (08:51→17:34)
[2023-02-11] MEDS: DOCUSATE SODIUM 100 MG/10 ML LIQUID UDC GT SCH (08:51)
[2023-02-11] MEDS: levETIRAcetam 500 MG/5 ML LIQUID UDC GT SCH ×2 (08:51→21:14)
[2023-02-11] MEDS: MIRALAX 17 GM POWD.PACK GT SCH (08:52)
[2023-02-11] MEDS: POTASSIUM CHLORIDE 40 MEQ/30 ML LIQUID UDC GT SCH (08:52)
[2023-02-11] MEDS: ESCITALOPRAM OXALATE 10 MG TABLET GT SCH (08:52)
[2023-02-11] MEDS: REMEDY ESSENTIAL ZINC PASTE 113 GM TP SCH ×2 (08:53→21:16)
[2023-02-11 09:00] VITALS: O2SAT 98
[2023-02-11] MEDS: HYDROGEN PEROXIDE 3% 118 ML BOTTLE TP SCH ×2 (09:00→21:29)
[2023-02-11 20:00] VITALS: TEMP 98.6
[2023-02-11 20:07] VITALS: O2SAT 99
[2023-02-11] MEDS: OMEGA-3 FATTY ACIDS/FISH OIL CAPSULE GT SCH (21:12)
[2023-02-11] MEDS: MELATONIN 3MG TABLET GT SCH (21:13)
[2023-02-11] MEDS: CRANBERRY 500 MG GT SCH (21:14)
[2023-02-11] MEDS: PROTEIN SUPPLEMENT (PROSTAT) 30 ML LIQUID GT SCH (21:16)
[2023-02-11] MEDS: MAGNESIUM COMPLEX GT SCH (21:16)
[2023-02-11] MEDS: NUTRISOURCE FIBER 4 GM PACKET GT SCH (21:16)
[2023-02-11] MEDS: RIVAROXABAN 15 MG TABLET GT SCH (21:16)
[2023-02-12] MEDS: TWOCAL HN 1,000 ML LIQUID GT PRN (01:29)
[2023-02-12] MEDS: OMEPRAZOLE 20 MG CAPSULE.DR GT SCH (05:39)
[2023-02-12] MEDS: BACLOFEN 10 MG TABLET GT SCH ×4 (05:39→17:10)
[2023-02-12] MEDS: MULTIVIT, IRON, MIN NO. 8, FA TABLET GT SCH (05:39)
[2023-02-12] MEDS: HYDROGEN PEROXIDE 3% 118 ML BOTTLE TP SCH ×2 (07:39→21:12)
[2023-02-12] MEDS: VALPROIC ACID 250 MG/5 ML LIQUID UDC GT SCH ×3 (08:30→21:00)
[2023-02-12] MEDS: COAL TAR TOP SCH (08:31)
[2023-02-12] MEDS: REMEDY ESSENTIAL ZINC PASTE 113 GM TP SCH ×2 (08:31→21:00)
[2023-02-12] MEDS: levETIRAcetam 500 MG/5 ML LIQUID UDC GT SCH ×2 (08:31→21:00)
[2023-02-12] MEDS: ESCITALOPRAM OXALATE 10 MG TABLET GT SCH (08:31)
[2023-02-12] MEDS: ACIDOPHILUS/BULGARICUS CHEW TAB GT SCH ×2 (08:31→21:00)
[2023-02-12] MEDS: MIRALAX 17 GM POWD.PACK GT SCH (08:31)
[2023-02-12] MEDS: POTASSIUM CHLORIDE 40 MEQ/30 ML LIQUID UDC GT SCH (08:31)
[2023-02-12] MEDS: POLYVINYL ALCOHOL OPHT DROPS 15 ML BOTTLE EACHEYE SCH ×3 (08:31→17:10)
[2023-02-12] MEDS: busPIRone 10 MG TABLET GT SCH ×3 (08:31→17:10)
[2023-02-12] MEDS: DOCUSATE SODIUM 100 MG/10 ML LIQUID UDC GT SCH (08:31)
[2023-02-12 10:06] VITALS: TEMP 83
[2023-02-12 10:08] VITALS: TEMP 97.5
[2023-02-12 10:40] VITALS: O2SAT 98
[2023-02-12 20:05] VITALS: TEMP 98.7
[2023-02-12 20:15] VITALS: O2SAT 99
[2023-02-12] MEDS: OMEGA-3 FATTY ACIDS/FISH OIL CAPSULE GT SCH (21:00)
[2023-02-12] MEDS: RIVAROXABAN 15 MG TABLET GT SCH (21:00)
[2023-02-12] MEDS: MELATONIN 3MG TABLET GT SCH (21:00)
[2023-02-12] MEDS: MAGNESIUM COMPLEX GT SCH (21:00)
[2023-02-12] MEDS: CRANBERRY 500 MG GT SCH (21:00)
[2023-02-12] MEDS: PROTEIN SUPPLEMENT (PROSTAT) 30 ML LIQUID GT SCH (21:00)
[2023-02-12] MEDS: NUTRISOURCE FIBER 4 GM PACKET GT SCH (21:00)
[2023-02-13] MEDS: OMEPRAZOLE 20 MG CAPSULE.DR GT SCH (06:18)
[2023-02-13] MEDS: MULTIVIT, IRON, MIN NO. 8, FA TABLET GT SCH (06:18)
[2023-02-13] MEDS: BACLOFEN 10 MG TABLET GT SCH ×4 (06:18→17:11)
[2023-02-13 07:57] VITALS: TEMP 98.5
[2023-02-13] MEDS: VALPROIC ACID 250 MG/5 ML LIQUID UDC GT SCH ×3 (08:00→21:51)
[2023-02-13] MEDS: HYDROGEN PEROXIDE 3% 118 ML BOTTLE TP SCH ×2 (08:17→19:21)
[2023-02-13] MEDS: POLYVINYL ALCOHOL OPHT DROPS 15 ML BOTTLE EACHEYE SCH ×3 (09:48→17:09)
[2023-02-13] MEDS: busPIRone 10 MG TABLET GT SCH ×3 (09:48→17:10)
[2023-02-13] MEDS: DOCUSATE SODIUM 100 MG/10 ML LIQUID UDC GT SCH (09:48)
[2023-02-13] MEDS: levETIRAcetam 500 MG/5 ML LIQUID UDC GT SCH ×2 (09:49→21:51)
[2023-02-13] MEDS: ACIDOPHILUS/BULGARICUS CHEW TAB GT SCH ×2 (09:49→21:40)
[2023-02-13] MEDS: ESCITALOPRAM OXALATE 10 MG TABLET GT SCH (09:50)
[2023-02-13] MEDS: MIRALAX 17 GM POWD.PACK GT SCH (09:50)
[2023-02-13] MEDS: POTASSIUM CHLORIDE 40 MEQ/30 ML LIQUID UDC GT SCH (09:51)
[2023-02-13] MEDS: REMEDY ESSENTIAL ZINC PASTE 113 GM TP SCH ×2 (09:52→21:42)
[2023-02-13 12:38] VITALS: O2SAT 98
[2023-02-13] MEDS: TWOCAL HN 1,000 ML LIQUID GT PRN (17:38)
[2023-02-13 20:00] VITALS: TEMP 97.7
[2023-02-13] MEDS: RIVAROXABAN 15 MG TABLET GT SCH (21:00)
[2023-02-13] MEDS: OMEGA-3 FATTY ACIDS/FISH OIL CAPSULE GT SCH (21:40)
[2023-02-13] MEDS: MELATONIN 3MG TABLET GT SCH (21:41)
[2023-02-13] MEDS: CRANBERRY 500 MG GT SCH (21:41)
[2023-02-13] MEDS: MAGNESIUM COMPLEX GT SCH (21:41)
[2023-02-13] MEDS: NUTRISOURCE FIBER 4 GM PACKET GT SCH (21:42)
[2023-02-13] MEDS: PROTEIN SUPPLEMENT (PROSTAT) 30 ML LIQUID GT SCH (21:42)
[2023-02-13 22:22] VITALS: O2SAT 99
[2023-02-14] MEDS: BACLOFEN 10 MG TABLET GT SCH ×4 (00:46→17:17)
[2023-02-14] MEDS: OMEPRAZOLE 20 MG CAPSULE.DR GT SCH (05:31)
[2023-02-14] MEDS: MULTIVIT, IRON, MIN NO. 8, FA TABLET GT SCH (05:31)
[2023-02-14 07:54] VITALS: TEMP 97.6
[2023-02-14] MEDS: HYDROGEN PEROXIDE 3% 118 ML BOTTLE TP SCH ×2 (08:35→20:09)
[2023-02-14] MEDS: POLYVINYL ALCOHOL OPHT DROPS 15 ML BOTTLE EACHEYE SCH ×3 (08:41→17:16)
[2023-02-14] MEDS: VALPROIC ACID 250 MG/5 ML LIQUID UDC GT SCH ×3 (08:41→20:55)
[2023-02-14] MEDS: busPIRone 10 MG TABLET GT SCH ×3 (08:41→17:17)
[2023-02-14] MEDS: DOCUSATE SODIUM 100 MG/10 ML LIQUID UDC GT SCH (08:42)
[2023-02-14] MEDS: ACIDOPHILUS/BULGARICUS CHEW TAB GT SCH ×2 (08:43→20:56)
[2023-02-14] MEDS: levETIRAcetam 500 MG/5 ML LIQUID UDC GT SCH ×2 (08:44→20:57)
[2023-02-14] MEDS: ESCITALOPRAM OXALATE 10 MG TABLET GT SCH (08:45)
[2023-02-14] MEDS: POTASSIUM CHLORIDE 40 MEQ/30 ML LIQUID UDC GT SCH (08:46)
[2023-02-14] MEDS: MIRALAX 17 GM POWD.PACK GT SCH (08:46)
[2023-02-14] MEDS: REMEDY ESSENTIAL ZINC PASTE 113 GM TP SCH ×2 (08:47→21:01)
[2023-02-14] MEDS: diphenhydrAMINE 25 MG/10 ML UDC GT PRN (10:20)
[2023-02-14] MEDS: ACETAMINOPHEN 650 MG/20 ML UDC- SA PATIENTS-PAIN ONLY GT PRN (10:23)
[2023-02-14] MEDS: NEOMY/BACITRA/POLYMYXIN B OINT UD PACKET TP SCH ×2 (10:32→21:01)
[2023-02-14 12:29] VITALS: O2SAT 98
[2023-02-14 20:00] VITALS: TEMP 98.3
[2023-02-14] MEDS: OMEGA-3 FATTY ACIDS/FISH OIL CAPSULE GT SCH (20:56)
[2023-02-14] MEDS: CRANBERRY 500 MG GT SCH (20:57)
[2023-02-14] MEDS: PROTEIN SUPPLEMENT (PROSTAT) 30 ML LIQUID GT SCH (20:57)
[2023-02-14] MEDS: MELATONIN 3MG TABLET GT SCH (20:57)
[2023-02-14] MEDS: MAGNESIUM COMPLEX GT SCH (20:57)
[2023-02-14] MEDS: NUTRISOURCE FIBER 4 GM PACKET GT SCH (20:57)
[2023-02-14] MEDS: RIVAROXABAN 15 MG TABLET GT SCH (21:00)
[2023-02-14 21:20] VITALS: O2SAT 99
[2023-02-15] MEDS: BACLOFEN 10 MG TABLET GT SCH ×4 (00:04→17:36)
[2023-02-15] MEDS: OMEPRAZOLE 20 MG CAPSULE.DR GT SCH (05:10)
[2023-02-15] MEDS: MULTIVIT, IRON, MIN NO. 8, FA TABLET GT SCH (05:10)
[2023-02-15] MEDS: HYDROGEN PEROXIDE 3% 118 ML BOTTLE TP SCH ×2 (07:24→20:53)
[2023-02-15 08:09] VITALS: TEMP 97.6
[2023-02-15] MEDS: VALPROIC ACID 250 MG/5 ML LIQUID UDC GT SCH ×3 (08:22→21:51)
[2023-02-15] MEDS: busPIRone 10 MG TABLET GT SCH ×3 (08:23→17:36)
[2023-02-15] MEDS: POLYVINYL ALCOHOL OPHT DROPS 15 ML BOTTLE EACHEYE SCH ×3 (08:23→17:36)
[2023-02-15] MEDS: ACIDOPHILUS/BULGARICUS CHEW TAB GT SCH ×2 (08:24→21:51)
[2023-02-15] MEDS: levETIRAcetam 500 MG/5 ML LIQUID UDC GT SCH ×2 (08:24→21:52)
[2023-02-15] MEDS: DOCUSATE SODIUM 100 MG/10 ML LIQUID UDC GT SCH (08:24)
[2023-02-15] MEDS: ESCITALOPRAM OXALATE 10 MG TABLET GT SCH (08:25)
[2023-02-15] MEDS: REMEDY ESSENTIAL ZINC PASTE 113 GM TP SCH ×2 (08:25→21:56)
[2023-02-15] MEDS: MIRALAX 17 GM POWD.PACK GT SCH (08:25)
[2023-02-15] MEDS: POTASSIUM CHLORIDE 40 MEQ/30 ML LIQUID UDC GT SCH (08:25)
[2023-02-15] MEDS: NEOMY/BACITRA/POLYMYXIN B OINT UD PACKET TP SCH ×2 (09:00→21:56)
[2023-02-15 10:45] VITALS: O2SAT 98
[2023-02-15 20:00] VITALS: TEMP 98.4
[2023-02-15 20:50] VITALS: O2SAT 99
[2023-02-15] MEDS: OMEGA-3 FATTY ACIDS/FISH OIL CAPSULE GT SCH (21:51)
[2023-02-15] MEDS: MELATONIN 3MG TABLET GT SCH (21:51)
[2023-02-15] MEDS: PROTEIN SUPPLEMENT (PROSTAT) 30 ML LIQUID GT SCH (21:52)
[2023-02-15] MEDS: NUTRISOURCE FIBER 4 GM PACKET GT SCH (21:52)
[2023-02-15] MEDS: CRANBERRY 500 MG GT SCH (21:52)
[2023-02-15] MEDS: MAGNESIUM COMPLEX GT SCH (21:52)
[2023-02-15] MEDS: RIVAROXABAN 15 MG TABLET GT SCH (21:54)
[2023-02-16] MEDS: TWOCAL HN 1,000 ML LIQUID GT PRN (00:30)
[2023-02-16] MEDS: OMEPRAZOLE 20 MG CAPSULE.DR GT SCH (05:37)
[2023-02-16] MEDS: BACLOFEN 10 MG TABLET GT SCH ×5 (05:37→23:56)
[2023-02-16] MEDS: MULTIVIT, IRON, MIN NO. 8, FA TABLET GT SCH (05:38)
[2023-02-16 07:26] VITALS: TEMP 97.4
[2023-02-16] MEDS: VALPROIC ACID 250 MG/5 ML LIQUID UDC GT SCH ×3 (08:46→21:00)
[2023-02-16] MEDS: busPIRone 10 MG TABLET GT SCH ×3 (08:47→17:23)
[2023-02-16] MEDS: ACIDOPHILUS/BULGARICUS CHEW TAB GT SCH ×2 (08:47→21:00)
[2023-02-16] MEDS: DOCUSATE SODIUM 100 MG/10 ML LIQUID UDC GT SCH (08:47)
[2023-02-16] MEDS: levETIRAcetam 500 MG/5 ML LIQUID UDC GT SCH ×2 (08:48→21:00)
[2023-02-16] MEDS: MIRALAX 17 GM POWD.PACK GT SCH (08:49)
[2023-02-16] MEDS: ESCITALOPRAM OXALATE 10 MG TABLET GT SCH (08:49)
[2023-02-16] MEDS: POTASSIUM CHLORIDE 40 MEQ/30 ML LIQUID UDC GT SCH (08:50)
[2023-02-16] MEDS: REMEDY ESSENTIAL ZINC PASTE 113 GM TP SCH ×2 (08:51→21:00)
[2023-02-16] MEDS: NEOMY/BACITRA/POLYMYXIN B OINT UD PACKET TP SCH ×2 (08:51→21:00)
[2023-02-16] MEDS: COAL TAR TOP SCH (08:51)
[2023-02-16] MEDS: POLYVINYL ALCOHOL OPHT DROPS 15 ML BOTTLE EACHEYE SCH ×3 (08:51→17:23)
[2023-02-16 09:52] VITALS: O2SAT 98
[2023-02-16] MEDS: HYDROGEN PEROXIDE 3% 118 ML BOTTLE TP SCH ×2 (09:52→19:10)
[2023-02-16 20:00] VITALS: TEMP 97.5
[2023-02-16] MEDS: RIVAROXABAN 15 MG TABLET GT SCH (20:44)
[2023-02-16 20:50] VITALS: O2SAT 99
[2023-02-16] MEDS: CRANBERRY 500 MG GT SCH (21:00)
[2023-02-16] MEDS: NUTRISOURCE FIBER 4 GM PACKET GT SCH (21:00)
[2023-02-16] MEDS: MELATONIN 3MG TABLET GT SCH (21:00)
[2023-02-16] MEDS: PROTEIN SUPPLEMENT (PROSTAT) 30 ML LIQUID GT SCH (21:00)
[2023-02-16] MEDS: MAGNESIUM COMPLEX GT SCH (21:00)
[2023-02-16] MEDS: OMEGA-3 FATTY ACIDS/FISH OIL CAPSULE GT SCH (21:00)
[2023-02-17] MEDS: BACLOFEN 10 MG TABLET GT SCH ×3 (05:44→17:10)
[2023-02-17] MEDS: OMEPRAZOLE 20 MG CAPSULE.DR GT SCH (05:44)
[2023-02-17] MEDS: MULTIVIT, IRON, MIN NO. 8, FA TABLET GT SCH (05:44)
[2023-02-17] MEDS: HYDROGEN PEROXIDE 3% 118 ML BOTTLE TP SCH ×2 (08:04→19:19)
[2023-02-17] MEDS: VALPROIC ACID 250 MG/5 ML LIQUID UDC GT SCH (08:45)
[2023-02-17] MEDS: DOCUSATE SODIUM 100 MG/10 ML LIQUID UDC GT SCH (08:48)
[2023-02-17] MEDS: POLYVINYL ALCOHOL OPHT DROPS 15 ML BOTTLE EACHEYE SCH ×3 (08:48→16:15)
[2023-02-17] MEDS: busPIRone 10 MG TABLET GT SCH ×3 (08:48→16:15)
[2023-02-17] MEDS: ESCITALOPRAM OXALATE 10 MG TABLET GT SCH (08:49)
[2023-02-17] MEDS: ACIDOPHILUS/BULGARICUS CHEW TAB GT SCH ×2 (08:49→21:00)
[2023-02-17] MEDS: levETIRAcetam 500 MG/5 ML LIQUID UDC GT SCH ×2 (08:49→21:00)
[2023-02-17] MEDS: POTASSIUM CHLORIDE 40 MEQ/30 ML LIQUID UDC GT SCH (08:50)
[2023-02-17] MEDS: MIRALAX 17 GM POWD.PACK GT SCH (08:50)
[2023-02-17] MEDS: REMEDY ESSENTIAL ZINC PASTE 113 GM TP SCH ×2 (08:52→21:00)
[2023-02-17] MEDS: NEOMY/BACITRA/POLYMYXIN B OINT UD PACKET TP SCH ×2 (08:52→21:00)
[2023-02-17 10:30] VITALS: O2SAT 98
[2023-02-17] MEDS ORDERED: VALPROIC ACID 250 MG/5 ML LIQUID UDC GT SCH ×2 (17:00→21:00)
[2023-02-17 20:00] VITALS: TEMP 98.7
[2023-02-17 20:10] VITALS: O2SAT 99
[2023-02-17] MEDS: MELATONIN 3MG TABLET GT SCH (21:00)
[2023-02-17] MEDS: OMEGA-3 FATTY ACIDS/FISH OIL CAPSULE GT SCH (21:00)
[2023-02-17] MEDS: RIVAROXABAN 15 MG TABLET GT SCH (21:00)
[2023-02-17] MEDS: CRANBERRY 500 MG GT SCH (21:00)
[2023-02-17] MEDS: MAGNESIUM COMPLEX GT SCH (21:00)
[2023-02-17] MEDS: NUTRISOURCE FIBER 4 GM PACKET GT SCH (21:00)
[2023-02-17] MEDS: PROTEIN SUPPLEMENT (PROSTAT) 30 ML LIQUID GT SCH (21:00)
[2023-02-18] MEDS: BACLOFEN 10 MG TABLET GT SCH ×4 (06:56→17:16)
[2023-02-18] MEDS: MULTIVIT, IRON, MIN NO. 8, FA TABLET GT SCH (06:56)
[2023-02-18] MEDS: OMEPRAZOLE 20 MG CAPSULE.DR GT SCH (06:56)
[2023-02-18 07:06] LABS: BASOPHILS # (AUTO) 0.1 K/UL (0.0-0.2); BASOPHILS % (AUTO) 0.9 % (0.0-2.0); EOSINOPHILS # (AUTO) 0.2 K/uL (0.0-0.7); EOSINOPHILS % (AUTO) 3.1 % (0.0-7.0); HEMATOCRIT 37.6 % (31.2-41.9); HEMOGLOBIN 12.8 g/dL (10.9-14.3); LYMPHOCYTES # (AUTO) 3.2 K/uL (0.8-4.8); LYMPHOCYTES % (AUTO) 41.1 % (20.5-51.5); MEAN CORPUSCULAR HEMOGLOBIN 31.7 uug (24.7-32.8); MEAN CORPUSCULAR HGB CONC 34 g/dL (32.3-35.6); MEAN CORPUSCULAR VOLUME 93.3 fL (75.5-95.3); MONOCYTES # (AUTO) 0.6 K/uL (0.1-1.30); MONOCYTES % (AUTO) 7.5 % (0.0-11.0); NEUTROPHILS # (AUTO) 3.7 K/uL (1.8-8.9); NEUTROPHILS % (AUTO) 47.4 % (38.5-71.5); PLATELET COUNT (AUTO) 202 K/uL (179-408); RED BLOOD CELL COUNT(AUTO) 4.03 MIL/uL (3.63-4.92); RED CELL DISTRIBUTION WIDTH 13.4 % (12.3-17.7); WHITE BLOOD COUNT (AUTO) 7.9 K/uL (3.8-11.8)
[2023-02-18 07:25] LABS: DIFFERENTIAL COMMENT 1
[2023-02-18 07:28] LABS: BILIRUBIN,TOTAL 0.4 mg/dL (0.2-1.0); CALCIUM 8.8 mg/dL (8.5-10.1); CREATININE 0.6 mg/dL (0.6-1.3); POTASSIUM 4.2 mmol/L (3.5-5.1); TOTAL PROTEIN, SERUM 6.9 g/dL (6.4-8.2)
[2023-02-18 07:37] VITALS: TEMP 98.1
[2023-02-18 08:00] VITALS: TEMP 98
[2023-02-18] MEDS ORDERED: VALPROIC ACID 250 MG/5 ML LIQUID UDC GT SCH (08:00)
[2023-02-18 08:30] VITALS: O2SAT 98
[2023-02-18] MEDS: MIRALAX 17 GM POWD.PACK GT SCH (08:46)
[2023-02-18] MEDS: REMEDY ESSENTIAL ZINC PASTE 113 GM TP SCH ×2 (08:46→21:38)
[2023-02-18] MEDS: levETIRAcetam 500 MG/5 ML LIQUID UDC GT SCH ×2 (08:46→21:38)
[2023-02-18] MEDS: NEOMY/BACITRA/POLYMYXIN B OINT UD PACKET TP SCH ×2 (08:46→21:38)
[2023-02-18] MEDS: DOCUSATE SODIUM 100 MG/10 ML LIQUID UDC GT SCH (08:46)
[2023-02-18] MEDS: POTASSIUM CHLORIDE 40 MEQ/30 ML LIQUID UDC GT SCH (08:46)
[2023-02-18] MEDS: busPIRone 10 MG TABLET GT SCH ×3 (08:46→17:16)
[2023-02-18] MEDS: ESCITALOPRAM OXALATE 10 MG TABLET GT SCH (08:46)
[2023-02-18] MEDS: POLYVINYL ALCOHOL OPHT DROPS 15 ML BOTTLE EACHEYE SCH ×3 (08:46→17:16)
[2023-02-18] MEDS: ACIDOPHILUS/BULGARICUS CHEW TAB GT SCH ×2 (08:46→21:37)
[2023-02-18] MEDS: HYDROGEN PEROXIDE 3% 118 ML BOTTLE TP SCH ×2 (09:00→19:17)
[2023-02-18] MEDS: VALPROIC ACID 250 MG/5 ML LIQUID UDC GT SCH (17:16)
[2023-02-18 20:00] VITALS: TEMP 98; O2SAT 99
[2023-02-18] MEDS: OMEGA-3 FATTY ACIDS/FISH OIL CAPSULE GT SCH (21:37)
[2023-02-18] MEDS: MELATONIN 3MG TABLET GT SCH (21:37)
[2023-02-18] MEDS: PROTEIN SUPPLEMENT (PROSTAT) 30 ML LIQUID GT SCH (21:38)
[2023-02-18] MEDS: MAGNESIUM COMPLEX GT SCH (21:38)
[2023-02-18] MEDS: RIVAROXABAN 15 MG TABLET GT SCH (21:38)
[2023-02-18] MEDS: CRANBERRY 500 MG GT SCH (21:38)
[2023-02-18] MEDS: NUTRISOURCE FIBER 4 GM PACKET GT SCH (21:38)
[2023-02-18] MEDS: ACETAMINOPHEN 650 MG/20 ML UDC- SA PATIENTS-PAIN ONLY GT PRN (21:39)
[2023-02-19] MEDS: MULTIVIT, IRON, MIN NO. 8, FA TABLET GT SCH (05:33)
[2023-02-19] MEDS: BACLOFEN 10 MG TABLET GT SCH ×4 (05:33→17:20)
[2023-02-19] MEDS: OMEPRAZOLE 20 MG CAPSULE.DR GT SCH (05:33)
[2023-02-19] MEDS: HYDROGEN PEROXIDE 3% 118 ML BOTTLE TP SCH ×2 (07:20→19:14)
[2023-02-19 07:48] VITALS: TEMP 97
[2023-02-19 07:53] VITALS: TEMP 97.4
[2023-02-19] MEDS: POLYVINYL ALCOHOL OPHT DROPS 15 ML BOTTLE EACHEYE SCH ×3 (08:40→17:20)
[2023-02-19] MEDS: ACIDOPHILUS/BULGARICUS CHEW TAB GT SCH ×2 (08:40→21:26)
[2023-02-19] MEDS: DOCUSATE SODIUM 100 MG/10 ML LIQUID UDC GT SCH (08:40)
[2023-02-19] MEDS: busPIRone 10 MG TABLET GT SCH ×3 (08:40→17:20)
[2023-02-19] MEDS: COAL TAR TOP SCH (08:40)
[2023-02-19] MEDS: REMEDY ESSENTIAL ZINC PASTE 113 GM TP SCH ×2 (08:40→21:26)
[2023-02-19] MEDS: NEOMY/BACITRA/POLYMYXIN B OINT UD PACKET TP SCH ×2 (08:40→21:26)
[2023-02-19] MEDS: levETIRAcetam 500 MG/5 ML LIQUID UDC GT SCH ×2 (08:40→21:26)
[2023-02-19] MEDS: MIRALAX 17 GM POWD.PACK GT SCH (08:40)
[2023-02-19] MEDS: POTASSIUM CHLORIDE 40 MEQ/30 ML LIQUID UDC GT SCH (08:40)
[2023-02-19] MEDS: ESCITALOPRAM OXALATE 10 MG TABLET GT SCH (08:40)
[2023-02-19] MEDS: VALPROIC ACID 250 MG/5 ML LIQUID UDC GT SCH ×2 (08:40→17:20)
[2023-02-19 10:40] VITALS: O2SAT 98
[2023-02-19 20:06] VITALS: TEMP 97.6
[2023-02-19 20:28] VITALS: O2SAT 99
[2023-02-19] MEDS: RIVAROXABAN 15 MG TABLET GT SCH (21:00)
[2023-02-19] MEDS: OMEGA-3 FATTY ACIDS/FISH OIL CAPSULE GT SCH (21:26)
[2023-02-19] MEDS: NUTRISOURCE FIBER 4 GM PACKET GT SCH (21:26)
[2023-02-19] MEDS: MELATONIN 3MG TABLET GT SCH (21:26)
[2023-02-19] MEDS: PROTEIN SUPPLEMENT (PROSTAT) 30 ML LIQUID GT SCH (21:26)
[2023-02-19] MEDS: CRANBERRY 500 MG GT SCH (21:26)
[2023-02-19] MEDS: MAGNESIUM COMPLEX GT SCH (21:26)
[2023-02-19] MEDS: ACETAMINOPHEN 650 MG/20 ML UDC- SA PATIENTS-PAIN ONLY GT PRN (21:31)
[2023-02-20] MEDS: BACLOFEN 10 MG TABLET GT SCH ×4 (00:17→17:09)
[2023-02-20] MEDS: OMEPRAZOLE 20 MG CAPSULE.DR GT SCH (05:51)
[2023-02-20] MEDS: MULTIVIT, IRON, MIN NO. 8, FA TABLET GT SCH (05:51)
[2023-02-20] MEDS: TWOCAL HN 1,000 ML LIQUID GT PRN (05:52)
[2023-02-20 08:01] VITALS: TEMP 97.4
[2023-02-20] MEDS: HYDROGEN PEROXIDE 3% 118 ML BOTTLE TP SCH ×2 (08:17→19:08)
[2023-02-20] MEDS: POLYVINYL ALCOHOL OPHT DROPS 15 ML BOTTLE EACHEYE SCH ×3 (09:01→17:07)
[2023-02-20] MEDS: busPIRone 10 MG TABLET GT SCH ×3 (09:02→17:08)
[2023-02-20] MEDS: ACIDOPHILUS/BULGARICUS CHEW TAB GT SCH ×2 (09:04→20:30)
[2023-02-20] MEDS: levETIRAcetam 500 MG/5 ML LIQUID UDC GT SCH ×2 (09:04→20:30)
[2023-02-20] MEDS: ESCITALOPRAM OXALATE 10 MG TABLET GT SCH (09:04)
[2023-02-20] MEDS: VALPROIC ACID 250 MG/5 ML LIQUID UDC GT SCH ×2 (09:04→17:08)
[2023-02-20] MEDS: MIRALAX 17 GM POWD.PACK GT SCH (09:04)
[2023-02-20] MEDS: DOCUSATE SODIUM 100 MG/10 ML LIQUID UDC GT SCH (09:04)
[2023-02-20] MEDS: REMEDY ESSENTIAL ZINC PASTE 113 GM TP SCH ×2 (09:08→20:30)
[2023-02-20] MEDS: NEOMY/BACITRA/POLYMYXIN B OINT UD PACKET TP SCH ×2 (09:08→20:30)
[2023-02-20] MEDS: POTASSIUM CHLORIDE 40 MEQ/30 ML LIQUID UDC GT SCH (09:08)
[2023-02-20 10:45] VITALS: O2SAT 98
[2023-02-20 20:02] VITALS: TEMP 97.3
[2023-02-20 20:15] VITALS: O2SAT 99
[2023-02-20] MEDS: MAGNESIUM COMPLEX GT SCH (20:30)
[2023-02-20] MEDS: OMEGA-3 FATTY ACIDS/FISH OIL CAPSULE GT SCH (20:30)
[2023-02-20] MEDS: CRANBERRY 500 MG GT SCH (20:30)
[2023-02-20] MEDS: diphenhydrAMINE 25 MG/10 ML UDC GT PRN (20:30)
[2023-02-20] MEDS: PROTEIN SUPPLEMENT (PROSTAT) 30 ML LIQUID GT SCH (20:30)
[2023-02-20] MEDS: NUTRISOURCE FIBER 4 GM PACKET GT SCH (20:30)
[2023-02-20] MEDS: MELATONIN 3MG TABLET GT SCH (20:30)
[2023-02-20] MEDS: RIVAROXABAN 15 MG TABLET GT SCH (21:00)
[2023-02-21] MEDS: BACLOFEN 10 MG TABLET GT SCH ×5 (05:12→23:17)
[2023-02-21] MEDS: MULTIVIT, IRON, MIN NO. 8, FA TABLET GT SCH (05:12)
[2023-02-21] MEDS: OMEPRAZOLE 20 MG CAPSULE.DR GT SCH (05:12)
[2023-02-21 08:00] VITALS: TEMP 97.6
[2023-02-21] MEDS: DOCUSATE SODIUM 100 MG/10 ML LIQUID UDC GT SCH (08:41)
[2023-02-21] MEDS: busPIRone 10 MG TABLET GT SCH ×3 (08:41→17:15)
[2023-02-21] MEDS: POLYVINYL ALCOHOL OPHT DROPS 15 ML BOTTLE EACHEYE SCH ×3 (08:41→17:15)
[2023-02-21] MEDS: ACIDOPHILUS/BULGARICUS CHEW TAB GT SCH ×2 (08:41→21:00)
[2023-02-21] MEDS: VALPROIC ACID 250 MG/5 ML LIQUID UDC GT SCH ×2 (08:41→17:15)
[2023-02-21] MEDS: REMEDY ESSENTIAL ZINC PASTE 113 GM TP SCH ×2 (08:42→21:00)
[2023-02-21] MEDS: NEOMY/BACITRA/POLYMYXIN B OINT UD PACKET TP SCH ×2 (08:42→21:00)
[2023-02-21] MEDS: ESCITALOPRAM OXALATE 10 MG TABLET GT SCH (08:42)
[2023-02-21] MEDS: MIRALAX 17 GM POWD.PACK GT SCH (08:42)
[2023-02-21] MEDS: POTASSIUM CHLORIDE 40 MEQ/30 ML LIQUID UDC GT SCH (08:42)
[2023-02-21] MEDS: levETIRAcetam 500 MG/5 ML LIQUID UDC GT SCH ×2 (08:42→21:00)
[2023-02-21] MEDS: HYDROGEN PEROXIDE 3% 118 ML BOTTLE TP SCH ×2 (09:22→19:05)
[2023-02-21 10:40] VITALS: O2SAT 98
[2023-02-21 20:17] VITALS: O2SAT 99
[2023-02-21 20:37] VITALS: TEMP 97.3
[2023-02-21] MEDS: OMEGA-3 FATTY ACIDS/FISH OIL CAPSULE GT SCH (21:00)
[2023-02-21] MEDS: PROTEIN SUPPLEMENT (PROSTAT) 30 ML LIQUID GT SCH (21:00)
[2023-02-21] MEDS: MELATONIN 3MG TABLET GT SCH (21:00)
[2023-02-21] MEDS: NUTRISOURCE FIBER 4 GM PACKET GT SCH (21:00)
[2023-02-21] MEDS: CRANBERRY 500 MG GT SCH (21:00)
[2023-02-21] MEDS: RIVAROXABAN 15 MG TABLET GT SCH (21:00)
[2023-02-21] MEDS: MAGNESIUM COMPLEX GT SCH (21:00)
[2023-02-22] MEDS: TWOCAL HN 1,000 ML LIQUID GT PRN (03:44)
[2023-02-22] MEDS: MULTIVIT, IRON, MIN NO. 8, FA TABLET GT SCH (06:07)
[2023-02-22] MEDS: OMEPRAZOLE 20 MG CAPSULE.DR GT SCH (06:07)
[2023-02-22] MEDS: BACLOFEN 10 MG TABLET GT SCH ×4 (06:07→23:26)
[2023-02-22 06:36] LABS: BASOPHILS # (AUTO) 0.1 K/UL (0.0-0.2); BASOPHILS % (AUTO) 0.6 % (0.0-2.0); EOSINOPHILS # (AUTO) 0.3 K/uL (0.0-0.7); EOSINOPHILS % (AUTO) 3.4 % (0.0-7.0); HEMOGLOBIN 12.9 g/dL (10.9-14.3); LYMPHOCYTES # (AUTO) 2.7 K/uL (0.8-4.8); MEAN CORPUSCULAR HEMOGLOBIN 31.7 uug (24.7-32.8); MEAN CORPUSCULAR HGB CONC 34 g/dL (32.3-35.6); MEAN CORPUSCULAR VOLUME 93.2 fL (75.5-95.3); MONOCYTES # (AUTO) 0.6 K/uL (0.1-1.30); MONOCYTES % (AUTO) 7.6 % (0.0-11.0); NEUTROPHILS # (AUTO) 4.7 K/uL (1.8-8.9); NEUTROPHILS % (AUTO) 56.4 % (38.5-71.5); PLATELET COUNT (AUTO) 178 K/uL (179-408); RED BLOOD CELL COUNT(AUTO) 4.08 MIL/uL (3.63-4.92); RED CELL DISTRIBUTION WIDTH 13.2 % (12.3-17.7); WHITE BLOOD COUNT (AUTO) 8.3 K/uL (3.8-11.8)
[2023-02-22 07:03] LABS: DIFFERENTIAL COMMENT 1
[2023-02-22 07:09] LABS: ALANINE AMINOTRANSFERASE 9 U/L (14-59); ALBUMIN 3.1 g/dL (3.4-5.0); ALKALINE PHOSPHATASE 94 U/L (50-136); ASPARTATE AMINOTRANSFERASE 13 U/L (15-37); BILIRUBIN,TOTAL 0.5 mg/dL (0.2-1.0); CALCIUM 8.9 mg/dL (8.5-10.1); CARBON DIOXIDE 29 mmol/L (21-32); CHLORIDE 105 mmol/L (98-107); CREATININE 0.5 mg/dL (0.6-1.3); GLUCOSE 80 mg/dL (74-106); POTASSIUM 3.8 mmol/L (3.5-5.1); SODIUM SERUM 142 mmol/L (136-145); TOTAL PROTEIN, SERUM 6.9 g/dL (6.4-8.2); UREA NITROGEN, BLOOD 21 mg/dL (7-18); VALPROIC ACID 58 ug/mL (50-100)
[2023-02-22] MEDS: HYDROGEN PEROXIDE 3% 118 ML BOTTLE TP SCH ×2 (07:17→21:30)
[2023-02-22] MEDS: busPIRone 10 MG TABLET GT SCH ×3 (08:41→17:33)
[2023-02-22] MEDS: DOCUSATE SODIUM 100 MG/10 ML LIQUID UDC GT SCH (08:41)
[2023-02-22] MEDS: POLYVINYL ALCOHOL OPHT DROPS 15 ML BOTTLE EACHEYE SCH ×3 (08:41→17:29)
[2023-02-22] MEDS: ACIDOPHILUS/BULGARICUS CHEW TAB GT SCH ×2 (08:42→21:29)
[2023-02-22] MEDS: ESCITALOPRAM OXALATE 10 MG TABLET GT SCH (08:42)
[2023-02-22] MEDS: MIRALAX 17 GM POWD.PACK GT SCH (08:42)
[2023-02-22] MEDS: levETIRAcetam 500 MG/5 ML LIQUID UDC GT SCH ×2 (08:42→21:00)
[2023-02-22] MEDS: VALPROIC ACID 250 MG/5 ML LIQUID UDC GT SCH ×2 (08:42→17:33)
[2023-02-22] MEDS: POTASSIUM CHLORIDE 40 MEQ/30 ML LIQUID UDC GT SCH (08:42)
[2023-02-22] MEDS: REMEDY ESSENTIAL ZINC PASTE 113 GM TP SCH ×2 (08:43→21:30)
[2023-02-22] MEDS: NEOMY/BACITRA/POLYMYXIN B OINT UD PACKET TP SCH ×2 (08:47→21:30)
[2023-02-22 10:40] VITALS: TEMP 98.6; O2SAT 98
[2023-02-22 20:00] VITALS: TEMP 98.1
[2023-02-22] MEDS: RIVAROXABAN 15 MG TABLET GT SCH (21:00)
[2023-02-22] MEDS: OMEGA-3 FATTY ACIDS/FISH OIL CAPSULE GT SCH (21:29)
[2023-02-22] MEDS: MELATONIN 3MG TABLET GT SCH (21:29)
[2023-02-22] MEDS: NUTRISOURCE FIBER 4 GM PACKET GT SCH (21:30)
[2023-02-22] MEDS: MAGNESIUM COMPLEX GT SCH (21:30)
[2023-02-22] MEDS: PROTEIN SUPPLEMENT (PROSTAT) 30 ML LIQUID GT SCH (21:30)
[2023-02-22] MEDS: CRANBERRY 500 MG GT SCH (21:30)
[2023-02-22 21:32] VITALS: O2SAT 98
[2023-02-23] MEDS: OMEPRAZOLE 20 MG CAPSULE.DR GT SCH (05:41)
[2023-02-23] MEDS: BACLOFEN 10 MG TABLET GT SCH ×3 (05:41→17:11)
[2023-02-23] MEDS: MULTIVIT, IRON, MIN NO. 8, FA TABLET GT SCH (05:41)
[2023-02-23] MEDS: HYDROGEN PEROXIDE 3% 118 ML BOTTLE TP SCH ×2 (07:53→20:45)
[2023-02-23] MEDS: POLYVINYL ALCOHOL OPHT DROPS 15 ML BOTTLE EACHEYE SCH ×3 (08:57→17:07)
[2023-02-23] MEDS: busPIRone 10 MG TABLET GT SCH ×3 (08:57→17:07)
[2023-02-23 09:28] VITALS: TEMP 98
[2023-02-23] MEDS: POTASSIUM CHLORIDE 40 MEQ/30 ML LIQUID UDC GT SCH (09:49)
[2023-02-23] MEDS: levETIRAcetam 500 MG/5 ML LIQUID UDC GT SCH ×2 (09:49→20:58)
[2023-02-23] MEDS: ESCITALOPRAM OXALATE 10 MG TABLET GT SCH (09:49)
[2023-02-23] MEDS: DOCUSATE SODIUM 100 MG/10 ML LIQUID UDC GT SCH (09:49)
[2023-02-23] MEDS: VALPROIC ACID 250 MG/5 ML LIQUID UDC GT SCH ×2 (09:49→17:07)
[2023-02-23] MEDS: MIRALAX 17 GM POWD.PACK GT SCH (09:49)
[2023-02-23] MEDS: COAL TAR TOP SCH (09:49)
[2023-02-23] MEDS: NEOMY/BACITRA/POLYMYXIN B OINT UD PACKET TP SCH ×2 (09:49→21:00)
[2023-02-23] MEDS: REMEDY ESSENTIAL ZINC PASTE 113 GM TP SCH ×2 (09:49→21:00)
[2023-02-23] MEDS: ACIDOPHILUS/BULGARICUS CHEW TAB GT SCH ×2 (09:49→20:58)
[2023-02-23 10:30] VITALS: O2SAT 98
[2023-02-23 20:00] VITALS: TEMP 98
[2023-02-23] MEDS: CRANBERRY 500 MG GT SCH (20:58)
[2023-02-23] MEDS: MAGNESIUM COMPLEX GT SCH (20:58)
[2023-02-23] MEDS: PROTEIN SUPPLEMENT (PROSTAT) 30 ML LIQUID GT SCH (20:58)
[2023-02-23] MEDS: MELATONIN 3MG TABLET GT SCH (20:58)
[2023-02-23] MEDS: OMEGA-3 FATTY ACIDS/FISH OIL CAPSULE GT SCH (20:58)
[2023-02-23] MEDS: NUTRISOURCE FIBER 4 GM PACKET GT SCH (20:58)
[2023-02-23 21:00] VITALS: O2SAT 99
[2023-02-23] MEDS: RIVAROXABAN 15 MG TABLET GT SCH (21:00)
[2023-02-24] MEDS: BACLOFEN 10 MG TABLET GT SCH ×5 (06:14→23:03)
[2023-02-24] MEDS: OMEPRAZOLE 20 MG CAPSULE.DR GT SCH (06:15)
[2023-02-24] MEDS: MULTIVIT, IRON, MIN NO. 8, FA TABLET GT SCH (06:15)
[2023-02-24] MEDS: POLYVINYL ALCOHOL OPHT DROPS 15 ML BOTTLE EACHEYE SCH ×3 (09:03→17:10)
[2023-02-24] MEDS: busPIRone 10 MG TABLET GT SCH ×3 (09:03→17:10)
[2023-02-24] MEDS: DOCUSATE SODIUM 100 MG/10 ML LIQUID UDC GT SCH (09:04)
[2023-02-24] MEDS: ACIDOPHILUS/BULGARICUS CHEW TAB GT SCH ×2 (09:05→21:22)
[2023-02-24] MEDS: VALPROIC ACID 250 MG/5 ML LIQUID UDC GT SCH ×2 (09:05→17:11)
[2023-02-24] MEDS: levETIRAcetam 500 MG/5 ML LIQUID UDC GT SCH ×2 (09:06→21:22)
[2023-02-24] MEDS: ESCITALOPRAM OXALATE 10 MG TABLET GT SCH (09:08)
[2023-02-24] MEDS: POTASSIUM CHLORIDE 40 MEQ/30 ML LIQUID UDC GT SCH (09:08)
[2023-02-24] MEDS: MIRALAX 17 GM POWD.PACK GT SCH (09:08)
[2023-02-24] MEDS: REMEDY ESSENTIAL ZINC PASTE 113 GM TP SCH ×2 (09:10→21:23)
[2023-02-24 09:15] VITALS: O2SAT 99
[2023-02-24] MEDS: HYDROGEN PEROXIDE 3% 118 ML BOTTLE TP SCH ×2 (09:45→19:16)
[2023-02-24 10:52] VITALS: TEMP 98.6
[2023-02-24 20:00] VITALS: TEMP 98
[2023-02-24 20:25] VITALS: O2SAT 99
[2023-02-24] MEDS: OMEGA-3 FATTY ACIDS/FISH OIL CAPSULE GT SCH (21:22)
[2023-02-24] MEDS: CRANBERRY 500 MG GT SCH (21:22)
[2023-02-24] MEDS: MAGNESIUM COMPLEX GT SCH (21:22)
[2023-02-24] MEDS: NUTRISOURCE FIBER 4 GM PACKET GT SCH (21:22)
[2023-02-24] MEDS: MELATONIN 3MG TABLET GT SCH (21:22)
[2023-02-24] MEDS: PROTEIN SUPPLEMENT (PROSTAT) 30 ML LIQUID GT SCH (21:22)
[2023-02-24] MEDS: RIVAROXABAN 15 MG TABLET GT SCH (21:24)
[2023-02-25] MEDS: BACLOFEN 10 MG TABLET GT SCH ×4 (06:26→23:02)
[2023-02-25] MEDS: OMEPRAZOLE 20 MG CAPSULE.DR GT SCH (06:26)
[2023-02-25] MEDS: MULTIVIT, IRON, MIN NO. 8, FA TABLET GT SCH (06:26)
[2023-02-25] MEDS: TWOCAL HN 1,000 ML LIQUID GT PRN (06:26)
[2023-02-25] MEDS: HYDROGEN PEROXIDE 3% 118 ML BOTTLE TP SCH ×2 (07:25→19:23)
[2023-02-25 08:04] VITALS: TEMP 98.5
[2023-02-25] MEDS: POLYVINYL ALCOHOL OPHT DROPS 15 ML BOTTLE EACHEYE SCH ×3 (08:19→17:01)
[2023-02-25] MEDS: busPIRone 10 MG TABLET GT SCH ×3 (08:19→17:01)
[2023-02-25] MEDS: VALPROIC ACID 250 MG/5 ML LIQUID UDC GT SCH ×2 (08:20→17:01)
[2023-02-25] MEDS: DOCUSATE SODIUM 100 MG/10 ML LIQUID UDC GT SCH (08:20)
[2023-02-25] MEDS: ACIDOPHILUS/BULGARICUS CHEW TAB GT SCH ×2 (08:21→21:56)
[2023-02-25] MEDS: POTASSIUM CHLORIDE 40 MEQ/30 ML LIQUID UDC GT SCH (08:22)
[2023-02-25] MEDS: ESCITALOPRAM OXALATE 10 MG TABLET GT SCH (08:22)
[2023-02-25] MEDS: levETIRAcetam 500 MG/5 ML LIQUID UDC GT SCH ×2 (08:22→21:57)
[2023-02-25] MEDS: MIRALAX 17 GM POWD.PACK GT SCH (08:22)
[2023-02-25] MEDS: REMEDY ESSENTIAL ZINC PASTE 113 GM TP SCH ×2 (08:23→21:58)
[2023-02-25 10:45] VITALS: O2SAT 99
[2023-02-25 19:48] VITALS: TEMP 98.2
[2023-02-25 20:16] VITALS: O2SAT 99
[2023-02-25] MEDS: OMEGA-3 FATTY ACIDS/FISH OIL CAPSULE GT SCH (21:56)
[2023-02-25] MEDS: MELATONIN 3MG TABLET GT SCH (21:56)
[2023-02-25] MEDS: NUTRISOURCE FIBER 4 GM PACKET GT SCH (21:57)
[2023-02-25] MEDS: PROTEIN SUPPLEMENT (PROSTAT) 30 ML LIQUID GT SCH (21:57)
[2023-02-25] MEDS: MAGNESIUM COMPLEX GT SCH (21:57)
[2023-02-25] MEDS: CRANBERRY 500 MG GT SCH (21:57)
[2023-02-25] MEDS: RIVAROXABAN 15 MG TABLET GT SCH (21:58)
[2023-02-26] MEDS: BACLOFEN 10 MG TABLET GT SCH ×4 (05:24→23:06)
[2023-02-26] MEDS: OMEPRAZOLE 20 MG CAPSULE.DR GT SCH (05:25)
[2023-02-26] MEDS: MULTIVIT, IRON, MIN NO. 8, FA TABLET GT SCH (05:25)
[2023-02-26 08:00] VITALS: TEMP 98.1
[2023-02-26] MEDS: POLYVINYL ALCOHOL OPHT DROPS 15 ML BOTTLE EACHEYE SCH ×3 (08:13→17:20)
[2023-02-26] MEDS: DOCUSATE SODIUM 100 MG/10 ML LIQUID UDC GT SCH (08:14)
[2023-02-26] MEDS: VALPROIC ACID 250 MG/5 ML LIQUID UDC GT SCH ×2 (08:14→17:20)
[2023-02-26] MEDS: busPIRone 10 MG TABLET GT SCH ×3 (08:14→17:20)
[2023-02-26] MEDS: MIRALAX 17 GM POWD.PACK GT SCH (08:15)
[2023-02-26] MEDS: ESCITALOPRAM OXALATE 10 MG TABLET GT SCH (08:15)
[2023-02-26] MEDS: ACIDOPHILUS/BULGARICUS CHEW TAB GT SCH ×2 (08:15→21:44)
[2023-02-26] MEDS: levETIRAcetam 500 MG/5 ML LIQUID UDC GT SCH ×2 (08:15→21:44)
[2023-02-26] MEDS: REMEDY ESSENTIAL ZINC PASTE 113 GM TP SCH ×2 (08:16→21:45)
[2023-02-26] MEDS: POTASSIUM CHLORIDE 40 MEQ/30 ML LIQUID UDC GT SCH (08:16)
[2023-02-26] MEDS: COAL TAR TOP SCH (08:16)
[2023-02-26] MEDS: HYDROGEN PEROXIDE 3% 118 ML BOTTLE TP SCH ×2 (09:00→19:23)
[2023-02-26 10:30] VITALS: O2SAT 99
[2023-02-26 19:55] VITALS: O2SAT 99
[2023-02-26 20:00] VITALS: TEMP 97.6
[2023-02-26] MEDS: MELATONIN 3MG TABLET GT SCH (21:44)
[2023-02-26] MEDS: MAGNESIUM COMPLEX GT SCH (21:44)
[2023-02-26] MEDS: OMEGA-3 FATTY ACIDS/FISH OIL CAPSULE GT SCH (21:44)
[2023-02-26] MEDS: PROTEIN SUPPLEMENT (PROSTAT) 30 ML LIQUID GT SCH (21:44)
[2023-02-26] MEDS: NUTRISOURCE FIBER 4 GM PACKET GT SCH (21:44)
[2023-02-26] MEDS: CRANBERRY 500 MG GT SCH (21:44)
[2023-02-26] MEDS: RIVAROXABAN 15 MG TABLET GT SCH (21:55)
[2023-02-26] MEDS: TWOCAL HN 1,000 ML LIQUID GT PRN (22:34)
[2023-02-27] MEDS: MULTIVIT, IRON, MIN NO. 8, FA TABLET GT SCH (05:11)
[2023-02-27] MEDS: OMEPRAZOLE 20 MG CAPSULE.DR GT SCH (05:11)
[2023-02-27] MEDS: BACLOFEN 10 MG TABLET GT SCH ×3 (05:11→17:18)
[2023-02-27] MEDS: POTASSIUM CHLORIDE 40 MEQ/30 ML LIQUID UDC GT SCH (09:43)
[2023-02-27] MEDS: REMEDY ESSENTIAL ZINC PASTE 113 GM TP SCH ×2 (09:43→21:00)
[2023-02-27] MEDS: DOCUSATE SODIUM 100 MG/10 ML LIQUID UDC GT SCH (09:43)
[2023-02-27] MEDS: VALPROIC ACID 250 MG/5 ML LIQUID UDC GT SCH ×2 (09:43→17:18)
[2023-02-27] MEDS: busPIRone 10 MG TABLET GT SCH ×3 (09:43→17:18)
[2023-02-27] MEDS: ACIDOPHILUS/BULGARICUS CHEW TAB GT SCH ×2 (09:43→21:00)
[2023-02-27] MEDS: POLYVINYL ALCOHOL OPHT DROPS 15 ML BOTTLE EACHEYE SCH ×3 (09:43→17:18)
[2023-02-27] MEDS: MIRALAX 17 GM POWD.PACK GT SCH (09:43)
[2023-02-27] MEDS: ESCITALOPRAM OXALATE 10 MG TABLET GT SCH (09:43)
[2023-02-27] MEDS: levETIRAcetam 500 MG/5 ML LIQUID UDC GT SCH ×2 (09:43→21:00)
[2023-02-27 10:20] VITALS: O2SAT 99
[2023-02-27] MEDS: HYDROGEN PEROXIDE 3% 118 ML BOTTLE TP SCH ×2 (10:20→19:13)
[2023-02-27 12:11] VITALS: TEMP 97.6
[2023-02-27 20:00] VITALS: TEMP 97.9
[2023-02-27] MEDS: NUTRISOURCE FIBER 4 GM PACKET GT SCH (21:00)
[2023-02-27] MEDS: PROTEIN SUPPLEMENT (PROSTAT) 30 ML LIQUID GT SCH (21:00)
[2023-02-27] MEDS: MAGNESIUM COMPLEX GT SCH (21:00)
[2023-02-27] MEDS: MELATONIN 3MG TABLET GT SCH (21:00)
[2023-02-27] MEDS: CRANBERRY 500 MG GT SCH (21:00)
[2023-02-27] MEDS: OMEGA-3 FATTY ACIDS/FISH OIL CAPSULE GT SCH (21:00)
[2023-02-27] MEDS: RIVAROXABAN 15 MG TABLET GT SCH (21:00)
[2023-02-27 22:54] VITALS: O2SAT 99
[2023-02-28] MEDS: MULTIVIT, IRON, MIN NO. 8, FA TABLET GT SCH (05:23)
[2023-02-28] MEDS: OMEPRAZOLE 20 MG CAPSULE.DR GT SCH (05:23)
[2023-02-28] MEDS: BACLOFEN 10 MG TABLET GT SCH ×5 (05:23→23:29)
[2023-02-28 07:51] VITALS: TEMP 97.4
[2023-02-28] MEDS: busPIRone 10 MG TABLET GT SCH ×3 (08:16→17:11)
[2023-02-28] MEDS: POLYVINYL ALCOHOL OPHT DROPS 15 ML BOTTLE EACHEYE SCH ×3 (08:16→17:10)
[2023-02-28] MEDS: DOCUSATE SODIUM 100 MG/10 ML LIQUID UDC GT SCH (08:17)
[2023-02-28] MEDS: VALPROIC ACID 250 MG/5 ML LIQUID UDC GT SCH ×2 (08:18→17:12)
[2023-02-28] MEDS: ACIDOPHILUS/BULGARICUS CHEW TAB GT SCH ×2 (08:18→21:00)
[2023-02-28] MEDS: levETIRAcetam 500 MG/5 ML LIQUID UDC GT SCH ×2 (08:19→21:00)
[2023-02-28] MEDS: POTASSIUM CHLORIDE 40 MEQ/30 ML LIQUID UDC GT SCH (08:20)
[2023-02-28] MEDS: ESCITALOPRAM OXALATE 10 MG TABLET GT SCH (08:20)
[2023-02-28] MEDS: MIRALAX 17 GM POWD.PACK GT SCH (08:20)
[2023-02-28] MEDS: REMEDY ESSENTIAL ZINC PASTE 113 GM TP SCH ×2 (08:21→21:00)
[2023-02-28] MEDS: HYDROGEN PEROXIDE 3% 118 ML BOTTLE TP SCH ×2 (08:55→20:22)
[2023-02-28 10:00] VITALS: O2SAT 99
[2023-02-28 19:50] VITALS: O2SAT 99
[2023-02-28 20:00] VITALS: TEMP 97.9
[2023-02-28] MEDS: NUTRISOURCE FIBER 4 GM PACKET GT SCH (21:00)
[2023-02-28] MEDS: RIVAROXABAN 15 MG TABLET GT SCH (21:00)
[2023-02-28] MEDS: OMEGA-3 FATTY ACIDS/FISH OIL CAPSULE GT SCH (21:00)
[2023-02-28] MEDS: MAGNESIUM COMPLEX GT SCH (21:00)
[2023-02-28] MEDS: MELATONIN 3MG TABLET GT SCH (21:00)
[2023-02-28] MEDS: PROTEIN SUPPLEMENT (PROSTAT) 30 ML LIQUID GT SCH (21:00)
[2023-02-28] MEDS: CRANBERRY 500 MG GT SCH (21:00)
[2023-02-28] MEDS: TWOCAL HN 1,000 ML LIQUID GT PRN (22:07)
[2023-03-01] MEDS: BACLOFEN 10 MG TABLET GT SCH ×4 (06:18→23:06)
[2023-03-01] MEDS: OMEPRAZOLE 20 MG CAPSULE.DR GT SCH (06:18)
[2023-03-01] MEDS: MULTIVIT, IRON, MIN NO. 8, FA TABLET GT SCH (06:18)
[2023-03-01 07:38] VITALS: TEMP 98.3
[2023-03-01] MEDS: POLYVINYL ALCOHOL OPHT DROPS 15 ML BOTTLE EACHEYE SCH ×3 (09:06→17:21)
[2023-03-01] MEDS: VALPROIC ACID 250 MG/5 ML LIQUID UDC GT SCH ×2 (09:06→17:21)
[2023-03-01] MEDS: REMEDY ESSENTIAL ZINC PASTE 113 GM TP SCH ×2 (09:06→21:20)
[2023-03-01] MEDS: busPIRone 10 MG TABLET GT SCH ×3 (09:06→17:21)
[2023-03-01] MEDS: DOCUSATE SODIUM 100 MG/10 ML LIQUID UDC GT SCH (09:06)
[2023-03-01] MEDS: ESCITALOPRAM OXALATE 10 MG TABLET GT SCH (09:06)
[2023-03-01] MEDS: levETIRAcetam 500 MG/5 ML LIQUID UDC GT SCH ×2 (09:06→21:19)
[2023-03-01] MEDS: ACIDOPHILUS/BULGARICUS CHEW TAB GT SCH ×2 (09:06→21:19)
[2023-03-01] MEDS: POTASSIUM CHLORIDE 40 MEQ/30 ML LIQUID UDC GT SCH (09:06)
[2023-03-01] MEDS: MIRALAX 17 GM POWD.PACK GT SCH (09:06)
[2023-03-01] MEDS: HYDROGEN PEROXIDE 3% 118 ML BOTTLE TP SCH ×2 (09:47→19:16)
[2023-03-01 20:00] VITALS: TEMP 97.9
[2023-03-01 21:10] VITALS: O2SAT 99
[2023-03-01] MEDS: MELATONIN 3MG TABLET GT SCH (21:19)
[2023-03-01] MEDS: MAGNESIUM COMPLEX GT SCH (21:19)
[2023-03-01] MEDS: CRANBERRY 500 MG GT SCH (21:19)
[2023-03-01] MEDS: OMEGA-3 FATTY ACIDS/FISH OIL CAPSULE GT SCH (21:19)
[2023-03-01] MEDS: NUTRISOURCE FIBER 4 GM PACKET GT SCH (21:20)
[2023-03-01] MEDS: RIVAROXABAN 15 MG TABLET GT SCH (21:20)
[2023-03-01] MEDS: PROTEIN SUPPLEMENT (PROSTAT) 30 ML LIQUID GT SCH (21:20)
[2023-03-01] MEDS: MELATONIN 3 MG TABLET GT PRN (23:07)
[2023-03-02] MEDS: BACLOFEN 10 MG TABLET GT SCH ×4 (05:10→23:14)
[2023-03-02] MEDS: OMEPRAZOLE 20 MG CAPSULE.DR GT SCH (05:10)
[2023-03-02] MEDS: MULTIVIT, IRON, MIN NO. 8, FA TABLET GT SCH (05:10)
[2023-03-02 07:39] VITALS: O2SAT 98
[2023-03-02 08:00] VITALS: TEMP 97.2
[2023-03-02] MEDS: ESCITALOPRAM OXALATE 10 MG TABLET GT SCH (08:51)
[2023-03-02] MEDS: COAL TAR TOP SCH (08:51)
[2023-03-02] MEDS: levETIRAcetam 500 MG/5 ML LIQUID UDC GT SCH ×2 (08:51→21:50)
[2023-03-02] MEDS: DOCUSATE SODIUM 100 MG/10 ML LIQUID UDC GT SCH (08:51)
[2023-03-02] MEDS: POLYVINYL ALCOHOL OPHT DROPS 15 ML BOTTLE EACHEYE SCH ×3 (08:51→17:24)
[2023-03-02] MEDS: REMEDY ESSENTIAL ZINC PASTE 113 GM TP SCH ×2 (08:51→21:52)
[2023-03-02] MEDS: MIRALAX 17 GM POWD.PACK GT SCH (08:51)
[2023-03-02] MEDS: POTASSIUM CHLORIDE 40 MEQ/30 ML LIQUID UDC GT SCH (08:51)
[2023-03-02] MEDS: VALPROIC ACID 250 MG/5 ML LIQUID UDC GT SCH ×2 (08:51→17:24)
[2023-03-02] MEDS: ACIDOPHILUS/BULGARICUS CHEW TAB GT SCH ×2 (08:51→21:49)
[2023-03-02] MEDS: busPIRone 10 MG TABLET GT SCH ×3 (08:51→17:24)
[2023-03-02] MEDS: HYDROGEN PEROXIDE 3% 118 ML BOTTLE TP SCH ×2 (09:00→20:27)
[2023-03-02 15:09] VITALS: O2SAT 98
[2023-03-02 19:48] VITALS: TEMP 97.6
[2023-03-02 20:03] VITALS: O2SAT 99
[2023-03-02 20:15] VITALS: O2SAT 99
[2023-03-02] MEDS: OMEGA-3 FATTY ACIDS/FISH OIL CAPSULE GT SCH (21:49)
[2023-03-02] MEDS: MELATONIN 3MG TABLET GT SCH (21:49)
[2023-03-02] MEDS: NUTRISOURCE FIBER 4 GM PACKET GT SCH (21:50)
[2023-03-02] MEDS: CRANBERRY 500 MG GT SCH (21:50)
[2023-03-02] MEDS: MAGNESIUM COMPLEX GT SCH (21:50)
[2023-03-02] MEDS: RIVAROXABAN 15 MG TABLET GT SCH (21:51)
[2023-03-02] MEDS: PROTEIN SUPPLEMENT (PROSTAT) 30 ML LIQUID GT SCH (21:51)
[2023-03-03] MEDS: MELATONIN 3 MG TABLET GT PRN
[2023-03-03] MEDS: BACLOFEN 10 MG TABLET GT SCH ×3 (05:23→17:21)
[2023-03-03] MEDS: MULTIVIT, IRON, MIN NO. 8, FA TABLET GT SCH (05:23)
[2023-03-03] MEDS: OMEPRAZOLE 20 MG CAPSULE.DR GT SCH (05:23)
[2023-03-03] MEDS: HYDROGEN PEROXIDE 3% 118 ML BOTTLE TP SCH ×2 (07:30→21:17)
[2023-03-03 08:00] VITALS: TEMP 98.1
[2023-03-03 08:27] VITALS: O2SAT 98
[2023-03-03] MEDS: busPIRone 10 MG TABLET GT SCH ×3 (08:41→17:21)
[2023-03-03] MEDS: POLYVINYL ALCOHOL OPHT DROPS 15 ML BOTTLE EACHEYE SCH ×3 (08:41→17:21)
[2023-03-03] MEDS: DOCUSATE SODIUM 100 MG/10 ML LIQUID UDC GT SCH (08:42)
[2023-03-03] MEDS: ACIDOPHILUS/BULGARICUS CHEW TAB GT SCH ×2 (08:43→20:46)
[2023-03-03] MEDS: VALPROIC ACID 250 MG/5 ML LIQUID UDC GT SCH ×2 (08:43→17:21)
[2023-03-03] MEDS: levETIRAcetam 500 MG/5 ML LIQUID UDC GT SCH ×2 (08:44→20:47)
[2023-03-03] MEDS: POTASSIUM CHLORIDE 40 MEQ/30 ML LIQUID UDC GT SCH (08:44)
[2023-03-03] MEDS: MIRALAX 17 GM POWD.PACK GT SCH (08:44)
[2023-03-03] MEDS: ESCITALOPRAM OXALATE 10 MG TABLET GT SCH (08:44)
[2023-03-03] MEDS: REMEDY ESSENTIAL ZINC PASTE 113 GM TP SCH ×2 (08:45→20:47)
[2023-03-03 20:00] VITALS: TEMP 99
[2023-03-03 20:05] VITALS: O2SAT 99
[2023-03-03] MEDS: OMEGA-3 FATTY ACIDS/FISH OIL CAPSULE GT SCH (20:46)
[2023-03-03] MEDS: RIVAROXABAN 15 MG TABLET GT SCH (20:47)
[2023-03-03] MEDS: MELATONIN 3MG TABLET GT SCH (20:47)
[2023-03-03] MEDS: MAGNESIUM COMPLEX GT SCH (20:47)
[2023-03-03] MEDS: CRANBERRY 500 MG GT SCH (20:47)
[2023-03-03] MEDS: PROTEIN SUPPLEMENT (PROSTAT) 30 ML LIQUID GT SCH (20:47)
[2023-03-03] MEDS: NUTRISOURCE FIBER 4 GM PACKET GT SCH (20:47)
[2023-03-04] MEDS: TWOCAL HN 1,000 ML LIQUID GT PRN (04:01)
[2023-03-04] MEDS: BACLOFEN 10 MG TABLET GT SCH ×4 (05:12→17:24)
[2023-03-04] MEDS: OMEPRAZOLE 20 MG CAPSULE.DR GT SCH (05:12)
[2023-03-04] MEDS: MULTIVIT, IRON, MIN NO. 8, FA TABLET GT SCH (05:12)
[2023-03-04 07:10] VITALS: O2SAT 98
[2023-03-04 08:00] VITALS: TEMP 98
[2023-03-04] MEDS: HYDROGEN PEROXIDE 3% 118 ML BOTTLE TP SCH ×2 (09:00→21:00)
[2023-03-04] MEDS: REMEDY ESSENTIAL ZINC PASTE 113 GM TP SCH ×2 (09:33→21:54)
[2023-03-04] MEDS: VALPROIC ACID 250 MG/5 ML LIQUID UDC GT SCH ×2 (09:33→16:22)
[2023-03-04] MEDS: DOCUSATE SODIUM 100 MG/10 ML LIQUID UDC GT SCH (09:33)
[2023-03-04] MEDS: ACIDOPHILUS/BULGARICUS CHEW TAB GT SCH ×2 (09:33→21:52)
[2023-03-04] MEDS: POTASSIUM CHLORIDE 40 MEQ/30 ML LIQUID UDC GT SCH (09:33)
[2023-03-04] MEDS: busPIRone 10 MG TABLET GT SCH ×3 (09:33→16:22)
[2023-03-04] MEDS: ESCITALOPRAM OXALATE 10 MG TABLET GT SCH (09:33)
[2023-03-04] MEDS: MIRALAX 17 GM POWD.PACK GT SCH (09:33)
[2023-03-04] MEDS: levETIRAcetam 500 MG/5 ML LIQUID UDC GT SCH ×2 (09:33→21:52)
[2023-03-04] MEDS: POLYVINYL ALCOHOL OPHT DROPS 15 ML BOTTLE EACHEYE SCH ×3 (09:33→16:22)
[2023-03-04 17:39] VITALS: O2SAT 98
[2023-03-04 19:40] VITALS: O2SAT 98
[2023-03-04 20:00] VITALS: TEMP 99
[2023-03-04] MEDS: OMEGA-3 FATTY ACIDS/FISH OIL CAPSULE GT SCH (21:50)
[2023-03-04] MEDS: CRANBERRY 500 MG GT SCH (21:52)
[2023-03-04] MEDS: MELATONIN 3MG TABLET GT SCH (21:52)
[2023-03-04] MEDS: MAGNESIUM COMPLEX GT SCH (21:53)
[2023-03-04] MEDS: PROTEIN SUPPLEMENT (PROSTAT) 30 ML LIQUID GT SCH (21:53)
[2023-03-04] MEDS: NUTRISOURCE FIBER 4 GM PACKET GT SCH (21:53)
[2023-03-04] MEDS: RIVAROXABAN 15 MG TABLET GT SCH (21:54)
[2023-03-05] MEDS: BACLOFEN 10 MG TABLET GT SCH ×4 (06:17→18:01)
[2023-03-05] MEDS: MULTIVIT, IRON, MIN NO. 8, FA TABLET GT SCH (06:17)
[2023-03-05] MEDS: OMEPRAZOLE 20 MG CAPSULE.DR GT SCH (06:17)
[2023-03-05 07:20] VITALS: O2SAT 98
[2023-03-05 08:20] VITALS: BP 158/93; TEMP 98.7; O2SAT 98
[2023-03-05] MEDS: HYDROGEN PEROXIDE 3% 118 ML BOTTLE TP SCH ×2 (08:35→19:22)
[2023-03-05] MEDS: REMEDY ESSENTIAL ZINC PASTE 113 GM TP SCH ×2 (09:00→21:00)
[2023-03-05] MEDS: levETIRAcetam 500 MG/5 ML LIQUID UDC GT SCH ×2 (09:00→21:00)
[2023-03-05] MEDS: POTASSIUM CHLORIDE 40 MEQ/30 ML LIQUID UDC GT SCH (09:00)
[2023-03-05] MEDS: POLYVINYL ALCOHOL OPHT DROPS 15 ML BOTTLE EACHEYE SCH ×3 (09:00→17:00)
[2023-03-05] MEDS: ACIDOPHILUS/BULGARICUS CHEW TAB GT SCH ×2 (09:00→21:00)
[2023-03-05] MEDS: ESCITALOPRAM OXALATE 10 MG TABLET GT SCH (09:00)
[2023-03-05] MEDS: COAL TAR TOP SCH (09:00)
[2023-03-05] MEDS: MIRALAX 17 GM POWD.PACK GT SCH (09:00)
[2023-03-05] MEDS: VALPROIC ACID 250 MG/5 ML LIQUID UDC GT SCH ×2 (09:00→17:00)
[2023-03-05] MEDS: DOCUSATE SODIUM 100 MG/10 ML LIQUID UDC GT SCH (09:00)
[2023-03-05] MEDS: busPIRone 10 MG TABLET GT SCH ×3 (09:00→17:00)
[2023-03-05 19:00] VITALS: O2SAT 98
[2023-03-05 20:00] VITALS: TEMP 98.5
[2023-03-05] MEDS: NUTRISOURCE FIBER 4 GM PACKET GT SCH (21:00)
[2023-03-05] MEDS: RIVAROXABAN 15 MG TABLET GT SCH (21:00)
[2023-03-05] MEDS: PROTEIN SUPPLEMENT (PROSTAT) 30 ML LIQUID GT SCH (21:00)
[2023-03-05] MEDS: CRANBERRY 500 MG GT SCH (21:00)
[2023-03-05] MEDS: OMEGA-3 FATTY ACIDS/FISH OIL CAPSULE GT SCH (21:00)
[2023-03-05] MEDS: MAGNESIUM COMPLEX GT SCH (21:00)
[2023-03-05] MEDS: MELATONIN 3MG TABLET GT SCH (21:00)
[2023-03-06] MEDS: TWOCAL HN 1,000 ML LIQUID GT PRN (05:04)
[2023-03-06] MEDS: BACLOFEN 10 MG TABLET GT SCH ×4 (05:04→18:31)
[2023-03-06] MEDS: OMEPRAZOLE 20 MG CAPSULE.DR GT SCH (05:04)
[2023-03-06] MEDS: MULTIVIT, IRON, MIN NO. 8, FA TABLET GT SCH (05:04)
[2023-03-06 07:18] VITALS: O2SAT 98
[2023-03-06 08:00] VITALS: TEMP 98
[2023-03-06] MEDS: HYDROGEN PEROXIDE 3% 118 ML BOTTLE TP SCH ×2 (08:30→20:38)
[2023-03-06] MEDS: REMEDY ESSENTIAL ZINC PASTE 113 GM TP SCH ×2 (09:16→21:00)
[2023-03-06] MEDS: levETIRAcetam 500 MG/5 ML LIQUID UDC GT SCH ×2 (09:16→21:00)
[2023-03-06] MEDS: POTASSIUM CHLORIDE 40 MEQ/30 ML LIQUID UDC GT SCH (09:16)
[2023-03-06] MEDS: ESCITALOPRAM OXALATE 10 MG TABLET GT SCH (09:16)
[2023-03-06] MEDS: DOCUSATE SODIUM 100 MG/10 ML LIQUID UDC GT SCH (09:16)
[2023-03-06] MEDS: ACIDOPHILUS/BULGARICUS CHEW TAB GT SCH ×2 (09:16→21:00)
[2023-03-06] MEDS: VALPROIC ACID 250 MG/5 ML LIQUID UDC GT SCH ×2 (09:16→17:00)
[2023-03-06] MEDS: POLYVINYL ALCOHOL OPHT DROPS 15 ML BOTTLE EACHEYE SCH ×3 (09:16→17:00)
[2023-03-06] MEDS: MIRALAX 17 GM POWD.PACK GT SCH (09:16)
[2023-03-06] MEDS: busPIRone 10 MG TABLET GT SCH ×3 (09:16→17:00)
[2023-03-06 15:38] VITALS: O2SAT 98
[2023-03-06 20:00] VITALS: TEMP 97.7
[2023-03-06] MEDS: MAGNESIUM COMPLEX GT SCH (21:00)
[2023-03-06] MEDS: MELATONIN 3MG TABLET GT SCH (21:00)
[2023-03-06] MEDS: OMEGA-3 FATTY ACIDS/FISH OIL CAPSULE GT SCH (21:00)
[2023-03-06] MEDS: NUTRISOURCE FIBER 4 GM PACKET GT SCH (21:00)
[2023-03-06] MEDS: RIVAROXABAN 15 MG TABLET GT SCH (21:00)
[2023-03-06] MEDS: CRANBERRY 500 MG GT SCH (21:00)
[2023-03-06] MEDS: PROTEIN SUPPLEMENT (PROSTAT) 30 ML LIQUID GT SCH (21:00)
[2023-03-06 21:21] VITALS: O2SAT 98
[2023-03-07] MEDS: BACLOFEN 10 MG TABLET GT SCH ×4 (06:37→17:03)
[2023-03-07] MEDS: OMEPRAZOLE 20 MG CAPSULE.DR GT SCH (06:37)
[2023-03-07] MEDS: MULTIVIT, IRON, MIN NO. 8, FA TABLET GT SCH (06:37)
[2023-03-07 08:04] VITALS: TEMP 98.5
[2023-03-07] MEDS: HYDROGEN PEROXIDE 3% 118 ML BOTTLE TP SCH ×2 (08:35→21:59)
[2023-03-07 09:00] VITALS: O2SAT 98
[2023-03-07] MEDS: POLYVINYL ALCOHOL OPHT DROPS 15 ML BOTTLE EACHEYE SCH ×3 (09:11→17:03)
[2023-03-07] MEDS: ESCITALOPRAM OXALATE 10 MG TABLET GT SCH (09:11)
[2023-03-07] MEDS: MIRALAX 17 GM POWD.PACK GT SCH (09:11)
[2023-03-07] MEDS: busPIRone 10 MG TABLET GT SCH ×3 (09:11→17:03)
[2023-03-07] MEDS: DOCUSATE SODIUM 100 MG/10 ML LIQUID UDC GT SCH (09:11)
[2023-03-07] MEDS: levETIRAcetam 500 MG/5 ML LIQUID UDC GT SCH ×2 (09:11→21:59)
[2023-03-07] MEDS: VALPROIC ACID 250 MG/5 ML LIQUID UDC GT SCH ×2 (09:11→17:03)
[2023-03-07] MEDS: POTASSIUM CHLORIDE 40 MEQ/30 ML LIQUID UDC GT SCH (09:11)
[2023-03-07] MEDS: REMEDY ESSENTIAL ZINC PASTE 113 GM TP SCH ×2 (09:11→21:59)
[2023-03-07] MEDS: ACIDOPHILUS/BULGARICUS CHEW TAB GT SCH ×2 (09:11→21:59)
[2023-03-07 20:00] VITALS: TEMP 99.3
[2023-03-07] MEDS: RIVAROXABAN 15 MG TABLET GT SCH (20:37)
[2023-03-07 20:58] VITALS: O2SAT 98
[2023-03-07] MEDS: MAGNESIUM COMPLEX GT SCH (21:59)
[2023-03-07] MEDS: PROTEIN SUPPLEMENT (PROSTAT) 30 ML LIQUID GT SCH (21:59)
[2023-03-07] MEDS: OMEGA-3 FATTY ACIDS/FISH OIL CAPSULE GT SCH (21:59)
[2023-03-07] MEDS: MELATONIN 3MG TABLET GT SCH (21:59)
[2023-03-07] MEDS: CRANBERRY 500 MG GT SCH (21:59)
[2023-03-07] MEDS: NUTRISOURCE FIBER 4 GM PACKET GT SCH (21:59)
[2023-03-08] MEDS: BACLOFEN 10 MG TABLET GT SCH ×5 (00:40→23:43)
[2023-03-08] MEDS: ACETAMINOPHEN 650 MG/20 ML UDC- SA PATIENTS-PAIN ONLY GT PRN ×3 (04:18→20:18)
[2023-03-08] MEDS: OMEPRAZOLE 20 MG CAPSULE.DR GT SCH (05:18)
[2023-03-08] MEDS: MULTIVIT, IRON, MIN NO. 8, FA TABLET GT SCH (05:19)
[2023-03-08 08:00] VITALS: TEMP 98.2
[2023-03-08] MEDS: ESCITALOPRAM OXALATE 10 MG TABLET GT SCH (09:00)
[2023-03-08] MEDS: MIRALAX 17 GM POWD.PACK GT SCH (09:00)
[2023-03-08] MEDS: HYDROGEN PEROXIDE 3% 118 ML BOTTLE TP SCH ×2 (09:00→23:25)
[2023-03-08] MEDS: ACIDOPHILUS/BULGARICUS CHEW TAB GT SCH ×2 (09:00→21:25)
[2023-03-08] MEDS: POTASSIUM CHLORIDE 40 MEQ/30 ML LIQUID UDC GT SCH (09:00)
[2023-03-08] MEDS: DOCUSATE SODIUM 100 MG/10 ML LIQUID UDC GT SCH (09:00)
[2023-03-08] MEDS: POLYVINYL ALCOHOL OPHT DROPS 15 ML BOTTLE EACHEYE SCH ×3 (09:00→17:50)
[2023-03-08] MEDS: VALPROIC ACID 250 MG/5 ML LIQUID UDC GT SCH ×2 (09:00→17:50)
[2023-03-08] MEDS: levETIRAcetam 500 MG/5 ML LIQUID UDC GT SCH ×2 (09:00→21:25)
[2023-03-08] MEDS: busPIRone 10 MG TABLET GT SCH ×3 (09:00→17:50)
[2023-03-08] MEDS: REMEDY ESSENTIAL ZINC PASTE 113 GM TP SCH ×2 (09:00→21:25)
[2023-03-08 10:53] VITALS: O2SAT 98
[2023-03-08 17:10] VITALS: O2SAT 98
[2023-03-08 20:27] VITALS: TEMP 98
[2023-03-08] MEDS: NUTRISOURCE FIBER 4 GM PACKET GT SCH (21:25)
[2023-03-08] MEDS: PROTEIN SUPPLEMENT (PROSTAT) 30 ML LIQUID GT SCH (21:25)
[2023-03-08] MEDS: MAGNESIUM COMPLEX GT SCH (21:25)
[2023-03-08] MEDS: MELATONIN 3MG TABLET GT SCH (21:25)
[2023-03-08] MEDS: OMEGA-3 FATTY ACIDS/FISH OIL CAPSULE GT SCH (21:25)
[2023-03-08] MEDS: CRANBERRY 500 MG GT SCH (21:25)
[2023-03-08] MEDS: RIVAROXABAN 15 MG TABLET GT SCH (21:25)
[2023-03-09] MEDS: BACLOFEN 10 MG TABLET GT SCH ×4 (06:37→23:15)
[2023-03-09] MEDS: MULTIVIT, IRON, MIN NO. 8, FA TABLET GT SCH (06:37)
[2023-03-09] MEDS: OMEPRAZOLE 20 MG CAPSULE.DR GT SCH (06:37)
[2023-03-09] MEDS: HYDROGEN PEROXIDE 3% 118 ML BOTTLE TP SCH ×2 (07:29→20:45)
[2023-03-09 08:00] VITALS: TEMP 97.2
[2023-03-09] MEDS: busPIRone 10 MG TABLET GT SCH ×3 (09:24→17:36)
[2023-03-09] MEDS: VALPROIC ACID 250 MG/5 ML LIQUID UDC GT SCH ×2 (09:24→17:36)
[2023-03-09] MEDS: POLYVINYL ALCOHOL OPHT DROPS 15 ML BOTTLE EACHEYE SCH ×3 (09:24→17:36)
[2023-03-09] MEDS: DOCUSATE SODIUM 100 MG/10 ML LIQUID UDC GT SCH (09:24)
[2023-03-09] MEDS: ACIDOPHILUS/BULGARICUS CHEW TAB GT SCH ×2 (09:24→21:12)
[2023-03-09] MEDS: levETIRAcetam 500 MG/5 ML LIQUID UDC GT SCH ×2 (09:25→21:13)
[2023-03-09] MEDS: POTASSIUM CHLORIDE 40 MEQ/30 ML LIQUID UDC GT SCH (09:25)
[2023-03-09] MEDS: ESCITALOPRAM OXALATE 10 MG TABLET GT SCH (09:25)
[2023-03-09] MEDS: COAL TAR TOP SCH (09:25)
[2023-03-09] MEDS: MIRALAX 17 GM POWD.PACK GT SCH (09:25)
[2023-03-09] MEDS: REMEDY ESSENTIAL ZINC PASTE 113 GM TP SCH ×2 (09:25→21:14)
[2023-03-09 10:40] VITALS: O2SAT 98
[2023-03-09 20:42] VITALS: TEMP 98
[2023-03-09 20:45] VITALS: O2SAT 99
[2023-03-09] MEDS: MELATONIN 3MG TABLET GT SCH (21:00)
[2023-03-09] MEDS: RIVAROXABAN 15 MG TABLET GT SCH (21:00)
[2023-03-09] MEDS: OMEGA-3 FATTY ACIDS/FISH OIL CAPSULE GT SCH (21:12)
[2023-03-09] MEDS: NUTRISOURCE FIBER 4 GM PACKET GT SCH (21:13)
[2023-03-09] MEDS: PROTEIN SUPPLEMENT (PROSTAT) 30 ML LIQUID GT SCH (21:13)
[2023-03-09] MEDS: MAGNESIUM COMPLEX GT SCH (21:13)
[2023-03-09] MEDS: CRANBERRY 500 MG GT SCH (21:13)
[2023-03-10] MEDS: ACETAMINOPHEN 650 MG/20 ML UDC- SA PATIENTS-PAIN ONLY GT PRN ×2 (02:04→23:43)
[2023-03-10] MEDS: diphenhydrAMINE 25 MG/10 ML UDC GT PRN ×2 (02:05→23:42)
[2023-03-10] MEDS: MULTIVIT, IRON, MIN NO. 8, FA TABLET GT SCH (05:19)
[2023-03-10] MEDS: OMEPRAZOLE 20 MG CAPSULE.DR GT SCH (05:19)
[2023-03-10] MEDS: BACLOFEN 10 MG TABLET GT SCH ×4 (05:19→23:41)
[2023-03-10 08:00] VITALS: TEMP 97.6
[2023-03-10 08:25] VITALS: O2SAT 98
[2023-03-10] MEDS: VALPROIC ACID 250 MG/5 ML LIQUID UDC GT SCH ×2 (08:39→17:09)
[2023-03-10] MEDS: DOCUSATE SODIUM 100 MG/10 ML LIQUID UDC GT SCH (08:39)
[2023-03-10] MEDS: POLYVINYL ALCOHOL OPHT DROPS 15 ML BOTTLE EACHEYE SCH ×3 (08:39→17:09)
[2023-03-10] MEDS: busPIRone 10 MG TABLET GT SCH ×3 (08:39→17:09)
[2023-03-10] MEDS: POTASSIUM CHLORIDE 40 MEQ/30 ML LIQUID UDC GT SCH (08:39)
[2023-03-10] MEDS: MIRALAX 17 GM POWD.PACK GT SCH (08:39)
[2023-03-10] MEDS: ESCITALOPRAM OXALATE 10 MG TABLET GT SCH (08:39)
[2023-03-10] MEDS: ACIDOPHILUS/BULGARICUS CHEW TAB GT SCH ×2 (08:39→21:00)
[2023-03-10] MEDS: levETIRAcetam 500 MG/5 ML LIQUID UDC GT SCH ×2 (08:39→21:00)
[2023-03-10] MEDS: REMEDY ESSENTIAL ZINC PASTE 113 GM TP SCH ×2 (08:40→21:00)
[2023-03-10] MEDS: HYDROGEN PEROXIDE 3% 118 ML BOTTLE TP SCH ×2 (10:40→20:48)
[2023-03-10 20:00] VITALS: O2SAT 99
[2023-03-10 20:10] VITALS: TEMP 97.7
[2023-03-10] MEDS: NUTRISOURCE FIBER 4 GM PACKET GT SCH (21:00)
[2023-03-10] MEDS: OMEGA-3 FATTY ACIDS/FISH OIL CAPSULE GT SCH (21:00)
[2023-03-10] MEDS: CRANBERRY 500 MG GT SCH (21:00)
[2023-03-10] MEDS: MAGNESIUM COMPLEX GT SCH (21:00)
[2023-03-10] MEDS: RIVAROXABAN 15 MG TABLET GT SCH (21:00)
[2023-03-10] MEDS: PROTEIN SUPPLEMENT (PROSTAT) 30 ML LIQUID GT SCH (21:00)
[2023-03-11] MEDS: MULTIVIT, IRON, MIN NO. 8, FA TABLET GT SCH (05:04)
[2023-03-11] MEDS: BACLOFEN 10 MG TABLET GT SCH ×4 (05:04→23:00)
[2023-03-11] MEDS: OMEPRAZOLE 20 MG CAPSULE.DR GT SCH (05:04)
[2023-03-11 08:00] VITALS: TEMP 97.8
[2023-03-11] MEDS: POTASSIUM CHLORIDE 40 MEQ/30 ML LIQUID UDC GT SCH (09:00)
[2023-03-11] MEDS: busPIRone 10 MG TABLET GT SCH ×3 (09:00→17:08)
[2023-03-11] MEDS: REMEDY ESSENTIAL ZINC PASTE 113 GM TP SCH ×2 (09:00→21:45)
[2023-03-11] MEDS: MIRALAX 17 GM POWD.PACK GT SCH (09:00)
[2023-03-11] MEDS: DOCUSATE SODIUM 100 MG/10 ML LIQUID UDC GT SCH (09:00)
[2023-03-11] MEDS: POLYVINYL ALCOHOL OPHT DROPS 15 ML BOTTLE EACHEYE SCH ×3 (09:00→17:07)
[2023-03-11] MEDS: levETIRAcetam 500 MG/5 ML LIQUID UDC GT SCH ×2 (09:00→21:43)
[2023-03-11] MEDS: HYDROGEN PEROXIDE 3% 118 ML BOTTLE TP SCH (09:00)
[2023-03-11] MEDS: ACIDOPHILUS/BULGARICUS CHEW TAB GT SCH ×2 (09:00→21:43)
[2023-03-11] MEDS: VALPROIC ACID 250 MG/5 ML LIQUID UDC GT SCH ×2 (09:00→17:08)
[2023-03-11] MEDS: ESCITALOPRAM OXALATE 10 MG TABLET GT SCH (09:00)
[2023-03-11 11:46] VITALS: O2SAT 98
[2023-03-11 20:00] VITALS: TEMP 97.8
[2023-03-11] MEDS: CRANBERRY 500 MG GT SCH (21:43)
[2023-03-11] MEDS: OMEGA-3 FATTY ACIDS/FISH OIL CAPSULE GT SCH (21:43)
[2023-03-11] MEDS: MAGNESIUM COMPLEX GT SCH (21:43)
[2023-03-11] MEDS: NUTRISOURCE FIBER 4 GM PACKET GT SCH (21:43)
[2023-03-11] MEDS: PROTEIN SUPPLEMENT (PROSTAT) 30 ML LIQUID GT SCH (21:43)
[2023-03-11] MEDS: RIVAROXABAN 15 MG TABLET GT SCH (21:45)
[2023-03-11] MEDS: ACETAMINOPHEN 650 MG/20 ML UDC- SA PATIENTS-PAIN ONLY GT PRN (22:59)
[2023-03-12 00:10] VITALS: O2SAT 99
[2023-03-12] MEDS: HYDROGEN PEROXIDE 3% 118 ML BOTTLE TP SCH ×3 (00:38→19:15)
[2023-03-12] MEDS: TWOCAL HN 1,000 ML LIQUID GT PRN (01:15)
[2023-03-12] MEDS: BACLOFEN 10 MG TABLET GT SCH ×3 (05:24→17:22)
[2023-03-12] MEDS: OMEPRAZOLE 20 MG CAPSULE.DR GT SCH (05:24)
[2023-03-12] MEDS: MULTIVIT, IRON, MIN NO. 8, FA TABLET GT SCH (05:24)
[2023-03-12 07:48] VITALS: TEMP 97.7
[2023-03-12] MEDS: busPIRone 10 MG TABLET GT SCH ×3 (08:28→17:21)
[2023-03-12] MEDS: VALPROIC ACID 250 MG/5 ML LIQUID UDC GT SCH ×2 (08:28→17:21)
[2023-03-12] MEDS: DOCUSATE SODIUM 100 MG/10 ML LIQUID UDC GT SCH (08:28)
[2023-03-12] MEDS: POLYVINYL ALCOHOL OPHT DROPS 15 ML BOTTLE EACHEYE SCH ×3 (08:28→17:21)
[2023-03-12] MEDS: levETIRAcetam 500 MG/5 ML LIQUID UDC GT SCH ×2 (08:29→21:01)
[2023-03-12] MEDS: ESCITALOPRAM OXALATE 10 MG TABLET GT SCH (08:29)
[2023-03-12] MEDS: ACIDOPHILUS/BULGARICUS CHEW TAB GT SCH ×2 (08:29→21:00)
[2023-03-12] MEDS: MIRALAX 17 GM POWD.PACK GT SCH (08:30)
[2023-03-12] MEDS: POTASSIUM CHLORIDE 40 MEQ/30 ML LIQUID UDC GT SCH (08:30)
[2023-03-12] MEDS: COAL TAR TOP SCH (08:31)
[2023-03-12] MEDS: REMEDY ESSENTIAL ZINC PASTE 113 GM TP SCH ×2 (08:31→21:03)
[2023-03-12 19:15] VITALS: O2SAT 99
[2023-03-12 19:57] VITALS: TEMP 98.2
[2023-03-12] MEDS: RIVAROXABAN 15 MG TABLET GT SCH (21:00)
[2023-03-12] MEDS: OMEGA-3 FATTY ACIDS/FISH OIL CAPSULE GT SCH (21:00)
[2023-03-12] MEDS: MAGNESIUM COMPLEX GT SCH (21:01)
[2023-03-12] MEDS: CRANBERRY 500 MG GT SCH (21:01)
[2023-03-12] MEDS: NUTRISOURCE FIBER 4 GM PACKET GT SCH (21:01)
[2023-03-12] MEDS: PROTEIN SUPPLEMENT (PROSTAT) 30 ML LIQUID GT SCH (21:03)
[2023-03-13] MEDS: BACLOFEN 10 MG TABLET GT SCH ×5 (00:15→23:14)
[2023-03-13] MEDS: ACETAMINOPHEN 650 MG/20 ML UDC- SA PATIENTS-PAIN ONLY GT PRN (01:00)
[2023-03-13] MEDS: diphenhydrAMINE 25 MG/10 ML UDC GT PRN (02:07)
[2023-03-13] MEDS: OMEPRAZOLE 20 MG CAPSULE.DR GT SCH (05:27)
[2023-03-13] MEDS: MULTIVIT, IRON, MIN NO. 8, FA TABLET GT SCH (05:27)
[2023-03-13 07:52] VITALS: TEMP 98.4
[2023-03-13] MEDS: busPIRone 10 MG TABLET GT SCH ×3 (08:21→17:03)
[2023-03-13] MEDS: POLYVINYL ALCOHOL OPHT DROPS 15 ML BOTTLE EACHEYE SCH ×3 (08:21→17:02)
[2023-03-13] MEDS: DOCUSATE SODIUM 100 MG/10 ML LIQUID UDC GT SCH (08:23)
[2023-03-13 08:24] VITALS: O2SAT 99
[2023-03-13] MEDS: ACIDOPHILUS/BULGARICUS CHEW TAB GT SCH ×2 (08:24→21:56)
[2023-03-13] MEDS: VALPROIC ACID 250 MG/5 ML LIQUID UDC GT SCH ×2 (08:24→17:03)
[2023-03-13] MEDS: ESCITALOPRAM OXALATE 10 MG TABLET GT SCH (08:25)
[2023-03-13] MEDS: POTASSIUM CHLORIDE 40 MEQ/30 ML LIQUID UDC GT SCH (08:25)
[2023-03-13] MEDS: REMEDY ESSENTIAL ZINC PASTE 113 GM TP SCH ×2 (08:25→21:56)
[2023-03-13] MEDS: MIRALAX 17 GM POWD.PACK GT SCH (08:25)
[2023-03-13] MEDS: levETIRAcetam 500 MG/5 ML LIQUID UDC GT SCH ×2 (08:25→21:56)
[2023-03-13] MEDS: HYDROGEN PEROXIDE 3% 118 ML BOTTLE TP SCH ×2 (09:12→20:49)
[2023-03-13 20:11] VITALS: TEMP 97.8
[2023-03-13 20:39] VITALS: O2SAT 99
[2023-03-13] MEDS: MAGNESIUM COMPLEX GT SCH (21:56)
[2023-03-13] MEDS: PROTEIN SUPPLEMENT (PROSTAT) 30 ML LIQUID GT SCH (21:56)
[2023-03-13] MEDS: OMEGA-3 FATTY ACIDS/FISH OIL CAPSULE GT SCH (21:56)
[2023-03-13] MEDS: NUTRISOURCE FIBER 4 GM PACKET GT SCH (21:56)
[2023-03-13] MEDS: CRANBERRY 500 MG GT SCH (21:56)
[2023-03-13] MEDS: RIVAROXABAN 15 MG TABLET GT SCH (21:59)
[2023-03-13] MEDS: TWOCAL HN 1,000 ML LIQUID GT PRN (23:25)
[2023-03-14] MEDS: MULTIVIT, IRON, MIN NO. 8, FA TABLET GT SCH (05:45)
[2023-03-14] MEDS: BACLOFEN 10 MG TABLET GT SCH ×4 (05:45→23:16)
[2023-03-14] MEDS: OMEPRAZOLE 20 MG CAPSULE.DR GT SCH (05:45)
[2023-03-14] MEDS: ACETAMINOPHEN 650 MG/20 ML UDC- SA PATIENTS-PAIN ONLY GT PRN (05:45)
[2023-03-14 08:11] VITALS: TEMP 97.8
[2023-03-14] MEDS: HYDROGEN PEROXIDE 3% 118 ML BOTTLE TP SCH ×2 (08:58→19:27)
[2023-03-14] MEDS: POLYVINYL ALCOHOL OPHT DROPS 15 ML BOTTLE EACHEYE SCH ×3 (09:05→17:22)
[2023-03-14] MEDS: ESCITALOPRAM OXALATE 10 MG TABLET GT SCH (09:05)
[2023-03-14] MEDS: ACIDOPHILUS/BULGARICUS CHEW TAB GT SCH ×2 (09:05→21:00)
[2023-03-14] MEDS: REMEDY ESSENTIAL ZINC PASTE 113 GM TP SCH ×2 (09:05→21:00)
[2023-03-14] MEDS: busPIRone 10 MG TABLET GT SCH ×3 (09:05→17:22)
[2023-03-14] MEDS: POTASSIUM CHLORIDE 40 MEQ/30 ML LIQUID UDC GT SCH (09:05)
[2023-03-14] MEDS: MIRALAX 17 GM POWD.PACK GT SCH (09:05)
[2023-03-14] MEDS: levETIRAcetam 500 MG/5 ML LIQUID UDC GT SCH ×2 (09:05→21:00)
[2023-03-14] MEDS: VALPROIC ACID 250 MG/5 ML LIQUID UDC GT SCH ×2 (09:05→17:22)
[2023-03-14] MEDS: DOCUSATE SODIUM 100 MG/10 ML LIQUID UDC GT SCH (09:05)
[2023-03-14 17:31] VITALS: O2SAT 98
[2023-03-14 20:16] VITALS: TEMP 97.3
[2023-03-14] MEDS: MAGNESIUM COMPLEX GT SCH (21:00)
[2023-03-14] MEDS: RIVAROXABAN 15 MG TABLET GT SCH (21:00)
[2023-03-14] MEDS: CRANBERRY 500 MG GT SCH (21:00)
[2023-03-14] MEDS: PROTEIN SUPPLEMENT (PROSTAT) 30 ML LIQUID GT SCH (21:00)
[2023-03-14] MEDS: OMEGA-3 FATTY ACIDS/FISH OIL CAPSULE GT SCH (21:00)
[2023-03-14] MEDS: NUTRISOURCE FIBER 4 GM PACKET GT SCH (21:00)
[2023-03-15] MEDS: OMEPRAZOLE 20 MG CAPSULE.DR GT SCH (06:00)
[2023-03-15] MEDS: BACLOFEN 10 MG TABLET GT SCH ×3 (06:00→17:04)
[2023-03-15] MEDS: MULTIVIT, IRON, MIN NO. 8, FA TABLET GT SCH (06:00)
[2023-03-15 07:32] VITALS: TEMP 98.2
[2023-03-15] MEDS: HYDROGEN PEROXIDE 3% 118 ML BOTTLE TP SCH ×2 (08:09→21:36)
[2023-03-15] MEDS: levETIRAcetam 500 MG/5 ML LIQUID UDC GT SCH ×2 (08:51→21:58)
[2023-03-15] MEDS: ESCITALOPRAM OXALATE 10 MG TABLET GT SCH (08:51)
[2023-03-15] MEDS: VALPROIC ACID 250 MG/5 ML LIQUID UDC GT SCH ×2 (08:51→16:56)
[2023-03-15] MEDS: busPIRone 10 MG TABLET GT SCH ×3 (08:51→16:56)
[2023-03-15] MEDS: POTASSIUM CHLORIDE 40 MEQ/30 ML LIQUID UDC GT SCH (08:51)
[2023-03-15] MEDS: POLYVINYL ALCOHOL OPHT DROPS 15 ML BOTTLE EACHEYE SCH ×3 (08:51→16:56)
[2023-03-15] MEDS: DOCUSATE SODIUM 100 MG/10 ML LIQUID UDC GT SCH (08:51)
[2023-03-15] MEDS: MIRALAX 17 GM POWD.PACK GT SCH (08:51)
[2023-03-15] MEDS: ACIDOPHILUS/BULGARICUS CHEW TAB GT SCH ×2 (08:51→21:58)
[2023-03-15] MEDS: REMEDY ESSENTIAL ZINC PASTE 113 GM TP SCH ×2 (08:52→21:59)
[2023-03-15 10:00] VITALS: O2SAT 98
[2023-03-15 20:32] VITALS: TEMP 98.3
[2023-03-15] MEDS: MAGNESIUM COMPLEX GT SCH (21:58)
[2023-03-15] MEDS: CRANBERRY 500 MG GT SCH (21:58)
[2023-03-15] MEDS: NUTRISOURCE FIBER 4 GM PACKET GT SCH (21:58)
[2023-03-15] MEDS: OMEGA-3 FATTY ACIDS/FISH OIL CAPSULE GT SCH (21:58)
[2023-03-15] MEDS: PROTEIN SUPPLEMENT (PROSTAT) 30 ML LIQUID GT SCH (21:58)
[2023-03-15] MEDS: RIVAROXABAN 15 MG TABLET GT SCH (21:59)
[2023-03-15] MEDS: ACETAMINOPHEN 650 MG/20 ML UDC- SA PATIENTS-PAIN ONLY GT PRN (22:23)
[2023-03-16] MEDS: BACLOFEN 10 MG TABLET GT SCH ×4 (00:28→17:58)
[2023-03-16] MEDS: OMEPRAZOLE 20 MG CAPSULE.DR GT SCH (06:02)
[2023-03-16] MEDS: MULTIVIT, IRON, MIN NO. 8, FA TABLET GT SCH (06:02)
[2023-03-16 08:00] VITALS: TEMP 98.1
[2023-03-16] MEDS: HYDROGEN PEROXIDE 3% 118 ML BOTTLE TP SCH ×2 (09:03→19:17)
[2023-03-16] MEDS: POLYVINYL ALCOHOL OPHT DROPS 15 ML BOTTLE EACHEYE SCH ×3 (09:18→17:57)
[2023-03-16] MEDS: busPIRone 10 MG TABLET GT SCH ×3 (09:18→17:57)
[2023-03-16] MEDS: DOCUSATE SODIUM 100 MG/10 ML LIQUID UDC GT SCH (09:18)
[2023-03-16] MEDS: levETIRAcetam 500 MG/5 ML LIQUID UDC GT SCH ×2 (09:23→21:00)
[2023-03-16] MEDS: VALPROIC ACID 250 MG/5 ML LIQUID UDC GT SCH ×2 (09:23→17:57)
[2023-03-16] MEDS: ACIDOPHILUS/BULGARICUS CHEW TAB GT SCH ×2 (09:23→21:00)
[2023-03-16] MEDS: MIRALAX 17 GM POWD.PACK GT SCH (09:24)
[2023-03-16] MEDS: ESCITALOPRAM OXALATE 10 MG TABLET GT SCH (09:24)
[2023-03-16] MEDS: REMEDY ESSENTIAL ZINC PASTE 113 GM TP SCH ×2 (09:25→21:00)
[2023-03-16] MEDS: POTASSIUM CHLORIDE 40 MEQ/30 ML LIQUID UDC GT SCH (09:25)
[2023-03-16] MEDS: COAL TAR TOP SCH (09:25)
[2023-03-16 10:40] VITALS: O2SAT 98
[2023-03-16] MEDS ORDERED: MELATONIN 3MG TABLET GT PRN (16:15)
[2023-03-16 19:10] VITALS: O2SAT 98
[2023-03-16 20:00] VITALS: TEMP 98
[2023-03-16] MEDS: CRANBERRY 500 MG GT SCH (21:00)
[2023-03-16] MEDS: OMEGA-3 FATTY ACIDS/FISH OIL CAPSULE GT SCH (21:00)
[2023-03-16] MEDS: PROTEIN SUPPLEMENT (PROSTAT) 30 ML LIQUID GT SCH (21:00)
[2023-03-16] MEDS: RIVAROXABAN 15 MG TABLET GT SCH (21:00)
[2023-03-16] MEDS: MAGNESIUM COMPLEX GT SCH (21:00)
[2023-03-16] MEDS: NUTRISOURCE FIBER 4 GM PACKET GT SCH (21:00)
[2023-03-17] MEDS: TWOCAL HN 1,000 ML LIQUID GT PRN (03:26)
[2023-03-17] MEDS: MULTIVIT, IRON, MIN NO. 8, FA TABLET GT SCH (05:42)
[2023-03-17] MEDS: OMEPRAZOLE 20 MG CAPSULE.DR GT SCH (05:42)
[2023-03-17] MEDS: BACLOFEN 10 MG TABLET GT SCH ×4 (05:42→17:21)
[2023-03-17 08:00] VITALS: TEMP 97.8
[2023-03-17] MEDS: POLYVINYL ALCOHOL OPHT DROPS 15 ML BOTTLE EACHEYE SCH ×3 (08:41→17:19)
[2023-03-17] MEDS: busPIRone 10 MG TABLET GT SCH ×3 (08:41→17:19)
[2023-03-17] MEDS: DOCUSATE SODIUM 100 MG/10 ML LIQUID UDC GT SCH (08:42)
[2023-03-17] MEDS: ACIDOPHILUS/BULGARICUS CHEW TAB GT SCH ×2 (08:43→21:17)
[2023-03-17] MEDS: VALPROIC ACID 250 MG/5 ML LIQUID UDC GT SCH ×2 (08:43→17:19)
[2023-03-17] MEDS: levETIRAcetam 500 MG/5 ML LIQUID UDC GT SCH ×2 (08:44→21:23)
[2023-03-17] MEDS: ESCITALOPRAM OXALATE 10 MG TABLET GT SCH (08:45)
[2023-03-17] MEDS: MIRALAX 17 GM POWD.PACK GT SCH (08:45)
[2023-03-17] MEDS: HYDROGEN PEROXIDE 3% 118 ML BOTTLE TP SCH ×2 (08:47→21:08)
[2023-03-17] MEDS: REMEDY ESSENTIAL ZINC PASTE 113 GM TP SCH ×2 (08:47→21:25)
[2023-03-17] MEDS: POTASSIUM CHLORIDE 40 MEQ/30 ML LIQUID UDC GT SCH (08:47)
[2023-03-17 08:55] VITALS: O2SAT 98
[2023-03-17 20:05] VITALS: O2SAT 99
[2023-03-17 20:29] VITALS: TEMP 97.4
[2023-03-17] MEDS: OMEGA-3 FATTY ACIDS/FISH OIL CAPSULE GT SCH (21:16)
[2023-03-17] MEDS: CRANBERRY 500 MG GT SCH (21:23)
[2023-03-17] MEDS: NUTRISOURCE FIBER 4 GM PACKET GT SCH (21:24)
[2023-03-17] MEDS: MAGNESIUM COMPLEX GT SCH (21:24)
[2023-03-17] MEDS: PROTEIN SUPPLEMENT (PROSTAT) 30 ML LIQUID GT SCH (21:24)
[2023-03-17] MEDS: RIVAROXABAN 15 MG TABLET GT SCH (21:25)
[2023-03-17] MEDS: MELATONIN 3MG TABLET GT PRN (21:55)
[2023-03-18] MEDS: BACLOFEN 10 MG TABLET GT SCH ×5 (05:37→23:11)
[2023-03-18] MEDS: OMEPRAZOLE 20 MG CAPSULE.DR GT SCH (05:37)
[2023-03-18] MEDS: MULTIVIT, IRON, MIN NO. 8, FA TABLET GT SCH (05:37)
[2023-03-18 07:32] VITALS: O2SAT 98
[2023-03-18 08:00] VITALS: TEMP 97.6
[2023-03-18] MEDS: HYDROGEN PEROXIDE 3% 118 ML BOTTLE TP SCH ×2 (09:00→21:27)
[2023-03-18] MEDS: POLYVINYL ALCOHOL OPHT DROPS 15 ML BOTTLE EACHEYE SCH ×3 (09:07→17:23)
[2023-03-18] MEDS: busPIRone 10 MG TABLET GT SCH ×3 (09:07→17:23)
[2023-03-18] MEDS: MIRALAX 17 GM POWD.PACK GT SCH (09:08)
[2023-03-18] MEDS: REMEDY ESSENTIAL ZINC PASTE 113 GM TP SCH ×2 (09:08→21:27)
[2023-03-18] MEDS: ESCITALOPRAM OXALATE 10 MG TABLET GT SCH (09:08)
[2023-03-18] MEDS: VALPROIC ACID 250 MG/5 ML LIQUID UDC GT SCH ×2 (09:08→17:23)
[2023-03-18] MEDS: POTASSIUM CHLORIDE 40 MEQ/30 ML LIQUID UDC GT SCH (09:08)
[2023-03-18] MEDS: ACIDOPHILUS/BULGARICUS CHEW TAB GT SCH ×2 (09:08→21:27)
[2023-03-18] MEDS: levETIRAcetam 500 MG/5 ML LIQUID UDC GT SCH ×2 (09:08→21:27)
[2023-03-18] MEDS: DOCUSATE SODIUM 100 MG/10 ML LIQUID UDC GT SCH (09:08)
[2023-03-18 14:15] VITALS: O2SAT 98
[2023-03-18 20:20] VITALS: O2SAT 98
[2023-03-18 20:26] VITALS: TEMP 97.1
[2023-03-18] MEDS: PROTEIN SUPPLEMENT (PROSTAT) 30 ML LIQUID GT SCH (21:27)
[2023-03-18] MEDS: OMEGA-3 FATTY ACIDS/FISH OIL CAPSULE GT SCH (21:27)
[2023-03-18] MEDS: CRANBERRY 500 MG GT SCH (21:27)
[2023-03-18] MEDS: MAGNESIUM COMPLEX GT SCH (21:27)
[2023-03-18] MEDS: NUTRISOURCE FIBER 4 GM PACKET GT SCH (21:27)
[2023-03-18] MEDS: RIVAROXABAN 15 MG TABLET GT SCH (21:28)
[2023-03-18] MEDS: MELATONIN 3MG TABLET GT PRN (21:28)
[2023-03-19] MEDS: TWOCAL HN 1,000 ML LIQUID GT PRN (04:06)
[2023-03-19] MEDS: BACLOFEN 10 MG TABLET GT SCH ×4 (05:26→23:30)
[2023-03-19] MEDS: OMEPRAZOLE 20 MG CAPSULE.DR GT SCH (05:26)
[2023-03-19] MEDS: MULTIVIT, IRON, MIN NO. 8, FA TABLET GT SCH (05:26)
[2023-03-19] MEDS: HYDROGEN PEROXIDE 3% 118 ML BOTTLE TP SCH ×2 (07:33→22:39)
[2023-03-19 08:04] VITALS: TEMP 97
[2023-03-19 08:16] VITALS: O2SAT 98
[2023-03-19] MEDS: ESCITALOPRAM OXALATE 10 MG TABLET GT SCH (08:43)
[2023-03-19] MEDS: busPIRone 10 MG TABLET GT SCH ×3 (08:43→17:09)
[2023-03-19] MEDS: POTASSIUM CHLORIDE 40 MEQ/30 ML LIQUID UDC GT SCH (08:43)
[2023-03-19] MEDS: REMEDY ESSENTIAL ZINC PASTE 113 GM TP SCH ×2 (08:43→20:26)
[2023-03-19] MEDS: levETIRAcetam 500 MG/5 ML LIQUID UDC GT SCH ×2 (08:43→20:26)
[2023-03-19] MEDS: VALPROIC ACID 250 MG/5 ML LIQUID UDC GT SCH ×2 (08:43→17:09)
[2023-03-19] MEDS: MIRALAX 17 GM POWD.PACK GT SCH (08:43)
[2023-03-19] MEDS: DOCUSATE SODIUM 100 MG/10 ML LIQUID UDC GT SCH (08:43)
[2023-03-19] MEDS: COAL TAR TOP SCH (08:43)
[2023-03-19] MEDS: POLYVINYL ALCOHOL OPHT DROPS 15 ML BOTTLE EACHEYE SCH ×3 (08:43→17:09)
[2023-03-19] MEDS: ACIDOPHILUS/BULGARICUS CHEW TAB GT SCH ×2 (08:43→20:26)
[2023-03-19 20:00] VITALS: TEMP 97.6
[2023-03-19 20:11] VITALS: O2SAT 98
[2023-03-19 20:25] VITALS: TEMP 97.6
[2023-03-19] MEDS: CRANBERRY 500 MG GT SCH (20:26)
[2023-03-19] MEDS: NUTRISOURCE FIBER 4 GM PACKET GT SCH (20:26)
[2023-03-19] MEDS: MELATONIN 3MG TABLET GT PRN (20:26)
[2023-03-19] MEDS: PROTEIN SUPPLEMENT (PROSTAT) 30 ML LIQUID GT SCH (20:26)
[2023-03-19] MEDS: MAGNESIUM COMPLEX GT SCH (20:26)
[2023-03-19] MEDS: OMEGA-3 FATTY ACIDS/FISH OIL CAPSULE GT SCH (20:26)
[2023-03-19] MEDS: RIVAROXABAN 15 MG TABLET GT SCH (21:00)
[2023-03-20] MEDS: MULTIVIT, IRON, MIN NO. 8, FA TABLET GT SCH (05:25)
[2023-03-20] MEDS: BACLOFEN 10 MG TABLET GT SCH ×3 (05:25→17:44)
[2023-03-20] MEDS: OMEPRAZOLE 20 MG CAPSULE.DR GT SCH (05:25)
[2023-03-20] MEDS: HYDROGEN PEROXIDE 3% 118 ML BOTTLE TP SCH ×2 (07:17→22:01)
[2023-03-20 08:00] VITALS: TEMP 97.2
[2023-03-20] MEDS: POLYVINYL ALCOHOL OPHT DROPS 15 ML BOTTLE EACHEYE SCH ×3 (09:00→17:44)
[2023-03-20] MEDS: POTASSIUM CHLORIDE 40 MEQ/30 ML LIQUID UDC GT SCH (09:00)
[2023-03-20] MEDS: busPIRone 10 MG TABLET GT SCH ×3 (09:00→17:44)
[2023-03-20] MEDS: REMEDY ESSENTIAL ZINC PASTE 113 GM TP SCH ×2 (09:00→21:00)
[2023-03-20] MEDS: DOCUSATE SODIUM 100 MG/10 ML LIQUID UDC GT SCH (09:00)
[2023-03-20] MEDS: VALPROIC ACID 250 MG/5 ML LIQUID UDC GT SCH ×2 (09:00→17:44)
[2023-03-20] MEDS: ESCITALOPRAM OXALATE 10 MG TABLET GT SCH (09:00)
[2023-03-20] MEDS: MIRALAX 17 GM POWD.PACK GT SCH (09:00)
[2023-03-20] MEDS: ACIDOPHILUS/BULGARICUS CHEW TAB GT SCH ×2 (09:00→21:00)
[2023-03-20] MEDS: levETIRAcetam 500 MG/5 ML LIQUID UDC GT SCH ×2 (09:00→21:00)
[2023-03-20 10:30] VITALS: O2SAT 98
[2023-03-20 11:57] VITALS: TEMP 97.2
[2023-03-20 20:00] VITALS: TEMP 97.7
[2023-03-20 20:22] VITALS: O2SAT 98
[2023-03-20] MEDS: PROTEIN SUPPLEMENT (PROSTAT) 30 ML LIQUID GT SCH (21:00)
[2023-03-20] MEDS: RIVAROXABAN 15 MG TABLET GT SCH (21:00)
[2023-03-20] MEDS: OMEGA-3 FATTY ACIDS/FISH OIL CAPSULE GT SCH (21:00)
[2023-03-20] MEDS: NUTRISOURCE FIBER 4 GM PACKET GT SCH (21:00)
[2023-03-20] MEDS: MAGNESIUM COMPLEX GT SCH (21:00)
[2023-03-20] MEDS: CRANBERRY 500 MG GT SCH (21:00)
[2023-03-20] MEDS: MELATONIN 3MG TABLET GT PRN (22:00)
[2023-03-21] MEDS: TWOCAL HN 1,000 ML LIQUID GT PRN (01:03)
[2023-03-21] MEDS: MULTIVIT, IRON, MIN NO. 8, FA TABLET GT SCH (05:46)
[2023-03-21] MEDS: OMEPRAZOLE 20 MG CAPSULE.DR GT SCH (05:46)
[2023-03-21] MEDS: BACLOFEN 10 MG TABLET GT SCH ×5 (05:46→23:09)
[2023-03-21 08:00] VITALS: TEMP 97.8
[2023-03-21] MEDS: ACIDOPHILUS/BULGARICUS CHEW TAB GT SCH ×2 (08:46→21:00)
[2023-03-21] MEDS: VALPROIC ACID 250 MG/5 ML LIQUID UDC GT SCH ×2 (08:46→16:21)
[2023-03-21] MEDS: busPIRone 10 MG TABLET GT SCH ×3 (08:46→16:21)
[2023-03-21] MEDS: DOCUSATE SODIUM 100 MG/10 ML LIQUID UDC GT SCH (08:46)
[2023-03-21] MEDS: POLYVINYL ALCOHOL OPHT DROPS 15 ML BOTTLE EACHEYE SCH ×3 (08:46→16:21)
[2023-03-21] MEDS: levETIRAcetam 500 MG/5 ML LIQUID UDC GT SCH ×2 (08:47→21:00)
[2023-03-21] MEDS: MIRALAX 17 GM POWD.PACK GT SCH (08:47)
[2023-03-21] MEDS: ESCITALOPRAM OXALATE 10 MG TABLET GT SCH (08:47)
[2023-03-21] MEDS: POTASSIUM CHLORIDE 40 MEQ/30 ML LIQUID UDC GT SCH (08:48)
[2023-03-21] MEDS: REMEDY ESSENTIAL ZINC PASTE 113 GM TP SCH ×2 (08:48→21:01)
[2023-03-21 09:00] VITALS: O2SAT 98
[2023-03-21] MEDS: HYDROGEN PEROXIDE 3% 118 ML BOTTLE TP SCH ×2 (09:00→21:47)
[2023-03-21 20:00] VITALS: TEMP 97.7
[2023-03-21 20:30] VITALS: O2SAT 98
[2023-03-21] MEDS: CRANBERRY 500 MG GT SCH (21:00)
[2023-03-21] MEDS: NUTRISOURCE FIBER 4 GM PACKET GT SCH (21:00)
[2023-03-21] MEDS: MAGNESIUM COMPLEX GT SCH (21:00)
[2023-03-21] MEDS: OMEGA-3 FATTY ACIDS/FISH OIL CAPSULE GT SCH (21:00)
[2023-03-21] MEDS: PROTEIN SUPPLEMENT (PROSTAT) 30 ML LIQUID GT SCH (21:00)
[2023-03-21] MEDS: RIVAROXABAN 15 MG TABLET GT SCH (21:01)
[2023-03-21] MEDS: MELATONIN 3MG TABLET GT PRN (21:01)
[2023-03-22] MEDS: MULTIVIT, IRON, MIN NO. 8, FA TABLET GT SCH (05:21)
[2023-03-22] MEDS: BACLOFEN 10 MG TABLET GT SCH ×4 (05:21→23:13)
[2023-03-22] MEDS: OMEPRAZOLE 20 MG CAPSULE.DR GT SCH (05:21)
[2023-03-22] MEDS: DOCUSATE SODIUM 100 MG/10 ML LIQUID UDC GT SCH (08:41)
[2023-03-22] MEDS: POLYVINYL ALCOHOL OPHT DROPS 15 ML BOTTLE EACHEYE SCH ×3 (08:41→17:05)
[2023-03-22] MEDS: VALPROIC ACID 250 MG/5 ML LIQUID UDC GT SCH ×2 (08:41→17:05)
[2023-03-22] MEDS: ACIDOPHILUS/BULGARICUS CHEW TAB GT SCH ×2 (08:41→21:31)
[2023-03-22] MEDS: busPIRone 10 MG TABLET GT SCH ×3 (08:41→17:05)
[2023-03-22] MEDS: REMEDY ESSENTIAL ZINC PASTE 113 GM TP SCH ×2 (08:50→21:32)
[2023-03-22] MEDS: POTASSIUM CHLORIDE 40 MEQ/30 ML LIQUID UDC GT SCH (08:50)
[2023-03-22] MEDS: MIRALAX 17 GM POWD.PACK GT SCH (08:50)
[2023-03-22] MEDS: ESCITALOPRAM OXALATE 10 MG TABLET GT SCH (08:50)
[2023-03-22] MEDS: levETIRAcetam 500 MG/5 ML LIQUID UDC GT SCH ×2 (08:50→21:31)
[2023-03-22 09:22] VITALS: TEMP 97.1
[2023-03-22] MEDS: HYDROGEN PEROXIDE 3% 118 ML BOTTLE TP SCH ×2 (09:32→19:23)
[2023-03-22 10:15] VITALS: O2SAT 98
[2023-03-22 20:00] VITALS: TEMP 97.8
[2023-03-22 20:20] VITALS: O2SAT 98
[2023-03-22] MEDS: CRANBERRY 500 MG GT SCH (21:31)
[2023-03-22] MEDS: PROTEIN SUPPLEMENT (PROSTAT) 30 ML LIQUID GT SCH (21:31)
[2023-03-22] MEDS: OMEGA-3 FATTY ACIDS/FISH OIL CAPSULE GT SCH (21:31)
[2023-03-22] MEDS: NUTRISOURCE FIBER 4 GM PACKET GT SCH (21:31)
[2023-03-22] MEDS: MAGNESIUM COMPLEX GT SCH (21:31)
[2023-03-22] MEDS: MELATONIN 3MG TABLET GT PRN (21:32)
[2023-03-22] MEDS: RIVAROXABAN 15 MG TABLET GT SCH (21:32)
[2023-03-22] MEDS: TWOCAL HN 1,000 ML LIQUID GT PRN (21:32)
[2023-03-22] MEDS: ACETAMINOPHEN 650 MG/20 ML UDC- SA PATIENTS-PAIN ONLY GT PRN (23:14)
[2023-03-23] MEDS: BACLOFEN 10 MG TABLET GT SCH ×3 (05:11→17:28)
[2023-03-23] MEDS: MULTIVIT, IRON, MIN NO. 8, FA TABLET GT SCH (05:11)
[2023-03-23] MEDS: OMEPRAZOLE 20 MG CAPSULE.DR GT SCH (05:11)
[2023-03-23] MEDS: busPIRone 10 MG TABLET GT SCH ×3 (08:44→17:28)
[2023-03-23] MEDS: POLYVINYL ALCOHOL OPHT DROPS 15 ML BOTTLE EACHEYE SCH ×3 (08:44→17:28)
[2023-03-23] MEDS: DOCUSATE SODIUM 100 MG/10 ML LIQUID UDC GT SCH (08:45)
[2023-03-23] MEDS: VALPROIC ACID 250 MG/5 ML LIQUID UDC GT SCH ×2 (08:46→17:28)
[2023-03-23] MEDS: ACIDOPHILUS/BULGARICUS CHEW TAB GT SCH ×2 (08:46→21:55)
[2023-03-23] MEDS: levETIRAcetam 500 MG/5 ML LIQUID UDC GT SCH ×2 (08:47→21:55)
[2023-03-23] MEDS: ESCITALOPRAM OXALATE 10 MG TABLET GT SCH (08:48)
[2023-03-23] MEDS: MIRALAX 17 GM POWD.PACK GT SCH (08:48)
[2023-03-23] MEDS: POTASSIUM CHLORIDE 40 MEQ/30 ML LIQUID UDC GT SCH (08:49)
[2023-03-23] MEDS: REMEDY ESSENTIAL ZINC PASTE 113 GM TP SCH ×2 (08:50→21:56)
[2023-03-23] MEDS: COAL TAR TOP SCH (08:50)
[2023-03-23 09:10] VITALS: O2SAT 98
[2023-03-23] MEDS: HYDROGEN PEROXIDE 3% 118 ML BOTTLE TP SCH ×2 (09:10→19:42)
[2023-03-23 09:13] VITALS: TEMP 97.1
[2023-03-23 20:00] VITALS: TEMP 98.4
[2023-03-23] MEDS: NUTRISOURCE FIBER 4 GM PACKET GT SCH (21:55)
[2023-03-23] MEDS: MAGNESIUM COMPLEX GT SCH (21:55)
[2023-03-23] MEDS: CRANBERRY 500 MG GT SCH (21:55)
[2023-03-23] MEDS: PROTEIN SUPPLEMENT (PROSTAT) 30 ML LIQUID GT SCH (21:55)
[2023-03-23] MEDS: OMEGA-3 FATTY ACIDS/FISH OIL CAPSULE GT SCH (21:55)
[2023-03-23] MEDS: RIVAROXABAN 15 MG TABLET GT SCH (21:56)
[2023-03-23] MEDS: MELATONIN 3MG TABLET GT PRN (22:00)
[2023-03-23 22:25] VITALS: O2SAT 98
[2023-03-24] MEDS: BACLOFEN 10 MG TABLET GT SCH ×4 (00:03→17:10)
[2023-03-24] MEDS: OMEPRAZOLE 20 MG CAPSULE.DR GT SCH (05:21)
[2023-03-24] MEDS: MULTIVIT, IRON, MIN NO. 8, FA TABLET GT SCH (05:21)
[2023-03-24 08:00] VITALS: TEMP 97.5
[2023-03-24] MEDS: POLYVINYL ALCOHOL OPHT DROPS 15 ML BOTTLE EACHEYE SCH ×3 (08:41→17:09)
[2023-03-24] MEDS: busPIRone 10 MG TABLET GT SCH ×3 (08:41→17:10)
[2023-03-24] MEDS: DOCUSATE SODIUM 100 MG/10 ML LIQUID UDC GT SCH (08:42)
[2023-03-24] MEDS: VALPROIC ACID 250 MG/5 ML LIQUID UDC GT SCH ×2 (08:42→17:10)
[2023-03-24] MEDS: ACIDOPHILUS/BULGARICUS CHEW TAB GT SCH ×2 (08:43→21:00)
[2023-03-24] MEDS: levETIRAcetam 500 MG/5 ML LIQUID UDC GT SCH ×2 (08:43→21:00)
[2023-03-24] MEDS: ESCITALOPRAM OXALATE 10 MG TABLET GT SCH (08:44)
[2023-03-24] MEDS: POTASSIUM CHLORIDE 40 MEQ/30 ML LIQUID UDC GT SCH (08:44)
[2023-03-24] MEDS: MIRALAX 17 GM POWD.PACK GT SCH (08:44)
[2023-03-24] MEDS: HYDROGEN PEROXIDE 3% 118 ML BOTTLE TP SCH ×2 (09:00→23:54)
[2023-03-24] MEDS: REMEDY ESSENTIAL ZINC PASTE 113 GM TP SCH ×2 (09:00→21:00)
[2023-03-24 13:32] VITALS: O2SAT 98
[2023-03-24 19:52] VITALS: O2SAT 98
[2023-03-24 20:00] VITALS: TEMP 98.4
[2023-03-24] MEDS: MAGNESIUM COMPLEX GT SCH (21:00)
[2023-03-24] MEDS: PROTEIN SUPPLEMENT (PROSTAT) 30 ML LIQUID GT SCH (21:00)
[2023-03-24] MEDS: CRANBERRY 500 MG GT SCH (21:00)
[2023-03-24] MEDS: RIVAROXABAN 15 MG TABLET GT SCH (21:00)
[2023-03-24] MEDS: NUTRISOURCE FIBER 4 GM PACKET GT SCH (21:00)
[2023-03-24] MEDS: OMEGA-3 FATTY ACIDS/FISH OIL CAPSULE GT SCH (21:00)
[2023-03-25] MEDS: MULTIVIT, IRON, MIN NO. 8, FA TABLET GT SCH (05:10)
[2023-03-25] MEDS: OMEPRAZOLE 20 MG CAPSULE.DR GT SCH (05:10)
[2023-03-25] MEDS: BACLOFEN 10 MG TABLET GT SCH ×5 (05:10→23:04)
[2023-03-25 07:23] VITALS: O2SAT 98
[2023-03-25 07:53] VITALS: TEMP 97
[2023-03-25] MEDS: POLYVINYL ALCOHOL OPHT DROPS 15 ML BOTTLE EACHEYE SCH ×3 (08:34→17:07)
[2023-03-25] MEDS: busPIRone 10 MG TABLET GT SCH ×3 (08:35→17:07)
[2023-03-25] MEDS: DOCUSATE SODIUM 100 MG/10 ML LIQUID UDC GT SCH (08:35)
[2023-03-25] MEDS: VALPROIC ACID 250 MG/5 ML LIQUID UDC GT SCH ×2 (08:35→17:09)
[2023-03-25] MEDS: ACIDOPHILUS/BULGARICUS CHEW TAB GT SCH ×2 (08:36→21:00)
[2023-03-25] MEDS: levETIRAcetam 500 MG/5 ML LIQUID UDC GT SCH ×2 (08:36→21:00)
[2023-03-25] MEDS: POTASSIUM CHLORIDE 40 MEQ/30 ML LIQUID UDC GT SCH (08:37)
[2023-03-25] MEDS: MIRALAX 17 GM POWD.PACK GT SCH (08:37)
[2023-03-25] MEDS: ESCITALOPRAM OXALATE 10 MG TABLET GT SCH (08:37)
[2023-03-25] MEDS: HYDROGEN PEROXIDE 3% 118 ML BOTTLE TP SCH ×2 (09:00→22:51)
[2023-03-25] MEDS: REMEDY ESSENTIAL ZINC PASTE 113 GM TP SCH ×2 (09:00→21:00)
[2023-03-25 15:47] VITALS: O2SAT 98
[2023-03-25 20:00] VITALS: TEMP 98.4
[2023-03-25 20:02] VITALS: O2SAT 98
[2023-03-25] MEDS: CRANBERRY 500 MG GT SCH (21:00)
[2023-03-25] MEDS: RIVAROXABAN 15 MG TABLET GT SCH (21:00)
[2023-03-25] MEDS: NUTRISOURCE FIBER 4 GM PACKET GT SCH (21:00)
[2023-03-25] MEDS: PROTEIN SUPPLEMENT (PROSTAT) 30 ML LIQUID GT SCH (21:00)
[2023-03-25] MEDS: MAGNESIUM COMPLEX GT SCH (21:00)
[2023-03-25] MEDS: OMEGA-3 FATTY ACIDS/FISH OIL CAPSULE GT SCH (21:00)
[2023-03-25] MEDS: MELATONIN 3MG TABLET GT PRN (21:00)
[2023-03-26] MEDS: MULTIVIT, IRON, MIN NO. 8, FA TABLET GT SCH (05:39)
[2023-03-26] MEDS: OMEPRAZOLE 20 MG CAPSULE.DR GT SCH (05:39)
[2023-03-26] MEDS: BACLOFEN 10 MG TABLET GT SCH ×3 (05:39→17:26)
[2023-03-26 07:54] VITALS: TEMP 98
[2023-03-26] MEDS: POLYVINYL ALCOHOL OPHT DROPS 15 ML BOTTLE EACHEYE SCH ×3 (08:40→17:24)
[2023-03-26] MEDS: busPIRone 10 MG TABLET GT SCH ×3 (08:40→17:24)
[2023-03-26] MEDS: VALPROIC ACID 250 MG/5 ML LIQUID UDC GT SCH ×2 (08:41→17:25)
[2023-03-26] MEDS: ACIDOPHILUS/BULGARICUS CHEW TAB GT SCH ×2 (08:41→21:51)
[2023-03-26] MEDS: levETIRAcetam 500 MG/5 ML LIQUID UDC GT SCH ×2 (08:41→21:51)
[2023-03-26] MEDS: DOCUSATE SODIUM 100 MG/10 ML LIQUID UDC GT SCH (08:41)
[2023-03-26] MEDS: NEOMY/BACITRA/POLYMYXIN B OINT UD PACKET TP SCH (08:42)
[2023-03-26] MEDS: COAL TAR TOP SCH (08:42)
[2023-03-26] MEDS: REMEDY ESSENTIAL ZINC PASTE 113 GM TP SCH ×2 (08:42→21:55)
[2023-03-26] MEDS: MIRALAX 17 GM POWD.PACK GT SCH (08:42)
[2023-03-26] MEDS: ESCITALOPRAM OXALATE 10 MG TABLET GT SCH (08:42)
[2023-03-26] MEDS: POTASSIUM CHLORIDE 40 MEQ/30 ML LIQUID UDC GT SCH (08:42)
[2023-03-26] MEDS: TWOCAL HN 1,000 ML LIQUID GT PRN (08:43)
[2023-03-26 09:30] VITALS: O2SAT 99
[2023-03-26] MEDS: HYDROGEN PEROXIDE 3% 118 ML BOTTLE TP SCH ×2 (09:30→21:15)
[2023-03-26 20:00] VITALS: TEMP 98
[2023-03-26] MEDS: OMEGA-3 FATTY ACIDS/FISH OIL CAPSULE GT SCH (21:50)
[2023-03-26] MEDS: CRANBERRY 500 MG GT SCH (21:51)
[2023-03-26] MEDS: MAGNESIUM COMPLEX GT SCH (21:52)
[2023-03-26] MEDS: NUTRISOURCE FIBER 4 GM PACKET GT SCH (21:53)
[2023-03-26] MEDS: PROTEIN SUPPLEMENT (PROSTAT) 30 ML LIQUID GT SCH (21:53)
[2023-03-26] MEDS: RIVAROXABAN 15 MG TABLET GT SCH (21:57)
[2023-03-27 02:40] VITALS: O2SAT 99
[2023-03-27] MEDS: ACETAMINOPHEN 650 MG/20 ML UDC- SA PATIENTS-PAIN ONLY GT PRN (03:07)
[2023-03-27] MEDS: OMEPRAZOLE 20 MG CAPSULE.DR GT SCH (06:25)
[2023-03-27] MEDS: BACLOFEN 10 MG TABLET GT SCH ×4 (06:25→17:18)
[2023-03-27] MEDS: MULTIVIT, IRON, MIN NO. 8, FA TABLET GT SCH (06:25)
[2023-03-27] MEDS: HYDROGEN PEROXIDE 3% 118 ML BOTTLE TP SCH ×2 (07:16→21:00)
[2023-03-27 08:00] VITALS: TEMP 97.7
[2023-03-27 08:20] VITALS: O2SAT 99
[2023-03-27] MEDS: busPIRone 10 MG TABLET GT SCH ×3 (10:00→17:18)
[2023-03-27] MEDS: REMEDY ESSENTIAL ZINC PASTE 113 GM TP SCH ×2 (10:00→21:00)
[2023-03-27] MEDS: POLYVINYL ALCOHOL OPHT DROPS 15 ML BOTTLE EACHEYE SCH ×3 (10:00→17:18)
[2023-03-27] MEDS: POTASSIUM CHLORIDE 40 MEQ/30 ML LIQUID UDC GT SCH (10:00)
[2023-03-27] MEDS: ACIDOPHILUS/BULGARICUS CHEW TAB GT SCH ×2 (10:00→21:00)
[2023-03-27] MEDS: NEOMY/BACITRA/POLYMYXIN B OINT UD PACKET TP SCH (10:00)
[2023-03-27] MEDS: MIRALAX 17 GM POWD.PACK GT SCH (10:00)
[2023-03-27] MEDS: DOCUSATE SODIUM 100 MG/10 ML LIQUID UDC GT SCH (10:00)
[2023-03-27] MEDS: VALPROIC ACID 250 MG/5 ML LIQUID UDC GT SCH ×2 (10:00→17:18)
[2023-03-27] MEDS: ESCITALOPRAM OXALATE 10 MG TABLET GT SCH (10:00)
[2023-03-27] MEDS: levETIRAcetam 500 MG/5 ML LIQUID UDC GT SCH ×2 (10:00→21:00)
[2023-03-27] MEDS: diphenhydrAMINE 25 MG/10 ML UDC GT PRN (18:24)
[2023-03-27 20:00] VITALS: TEMP 98.6
[2023-03-27 20:05] VITALS: O2SAT 98
[2023-03-27] MEDS: CRANBERRY 500 MG GT SCH (21:00)
[2023-03-27] MEDS: PROTEIN SUPPLEMENT (PROSTAT) 30 ML LIQUID GT SCH (21:00)
[2023-03-27] MEDS: RIVAROXABAN 15 MG TABLET GT SCH (21:00)
[2023-03-27] MEDS: OMEGA-3 FATTY ACIDS/FISH OIL CAPSULE GT SCH (21:00)
[2023-03-27] MEDS: NUTRISOURCE FIBER 4 GM PACKET GT SCH (21:00)
[2023-03-27] MEDS: MAGNESIUM COMPLEX GT SCH (21:00)
[2023-03-28] MEDS: OMEPRAZOLE 20 MG CAPSULE.DR GT SCH (05:03)
[2023-03-28] MEDS: MULTIVIT, IRON, MIN NO. 8, FA TABLET GT SCH (05:03)
[2023-03-28] MEDS: BACLOFEN 10 MG TABLET GT SCH ×4 (05:03→17:05)
[2023-03-28] MEDS: TWOCAL HN 1,000 ML LIQUID GT PRN (07:06)
[2023-03-28 07:49] VITALS: TEMP 98.6
[2023-03-28 07:53] VITALS: TEMP 97.6
[2023-03-28] MEDS: HYDROGEN PEROXIDE 3% 118 ML BOTTLE TP SCH ×2 (08:21→21:10)
[2023-03-28] MEDS: DOCUSATE SODIUM 100 MG/10 ML LIQUID UDC GT SCH (09:00)
[2023-03-28] MEDS: MIRALAX 17 GM POWD.PACK GT SCH (09:00)
[2023-03-28] MEDS: POLYVINYL ALCOHOL OPHT DROPS 15 ML BOTTLE EACHEYE SCH ×3 (09:35→17:05)
[2023-03-28] MEDS: busPIRone 10 MG TABLET GT SCH ×3 (09:35→17:05)
[2023-03-28] MEDS: POTASSIUM CHLORIDE 40 MEQ/30 ML LIQUID UDC GT SCH (09:36)
[2023-03-28] MEDS: NEOMY/BACITRA/POLYMYXIN B OINT UD PACKET TP SCH (09:36)
[2023-03-28] MEDS: REMEDY ESSENTIAL ZINC PASTE 113 GM TP SCH ×2 (09:36→21:10)
[2023-03-28] MEDS: levETIRAcetam 500 MG/5 ML LIQUID UDC GT SCH ×2 (09:36→21:10)
[2023-03-28] MEDS: ACIDOPHILUS/BULGARICUS CHEW TAB GT SCH ×2 (09:36→21:10)
[2023-03-28] MEDS: ESCITALOPRAM OXALATE 10 MG TABLET GT SCH (09:36)
[2023-03-28] MEDS: VALPROIC ACID 250 MG/5 ML LIQUID UDC GT SCH ×2 (09:36→17:05)
[2023-03-28 14:05] VITALS: O2SAT 98
[2023-03-28 20:12] VITALS: O2SAT 98
[2023-03-28] MEDS: RIVAROXABAN 15 MG TABLET GT SCH (21:00)
[2023-03-28] MEDS: PROTEIN SUPPLEMENT (PROSTAT) 30 ML LIQUID GT SCH (21:10)
[2023-03-28] MEDS: OMEGA-3 FATTY ACIDS/FISH OIL CAPSULE GT SCH (21:10)
[2023-03-28] MEDS: NUTRISOURCE FIBER 4 GM PACKET GT SCH (21:10)
[2023-03-28] MEDS: MAGNESIUM COMPLEX GT SCH (21:10)
[2023-03-28] MEDS: CRANBERRY 500 MG GT SCH (21:10)
[2023-03-29] MEDS: BACLOFEN 10 MG TABLET GT SCH ×5 (00:18→23:56)
[2023-03-29] MEDS: OMEPRAZOLE 20 MG CAPSULE.DR GT SCH (05:51)
[2023-03-29] MEDS: MULTIVIT, IRON, MIN NO. 8, FA TABLET GT SCH (05:51)
[2023-03-29 07:32] VITALS: TEMP 97.8
[2023-03-29] MEDS: HYDROGEN PEROXIDE 3% 118 ML BOTTLE TP SCH ×2 (07:50→19:10)
[2023-03-29 08:00] VITALS: TEMP 98.6
[2023-03-29] MEDS: POLYVINYL ALCOHOL OPHT DROPS 15 ML BOTTLE EACHEYE SCH ×3 (09:17→17:23)
[2023-03-29] MEDS: busPIRone 10 MG TABLET GT SCH ×3 (09:17→17:23)
[2023-03-29] MEDS: POTASSIUM CHLORIDE 40 MEQ/30 ML LIQUID UDC GT SCH (09:17)
[2023-03-29] MEDS: levETIRAcetam 500 MG/5 ML LIQUID UDC GT SCH ×2 (09:17→21:00)
[2023-03-29] MEDS: REMEDY ESSENTIAL ZINC PASTE 113 GM TP SCH ×2 (09:17→21:00)
[2023-03-29] MEDS: ACIDOPHILUS/BULGARICUS CHEW TAB GT SCH ×2 (09:17→21:00)
[2023-03-29] MEDS: VALPROIC ACID 250 MG/5 ML LIQUID UDC GT SCH ×2 (09:17→17:23)
[2023-03-29] MEDS: NEOMY/BACITRA/POLYMYXIN B OINT UD PACKET TP SCH (09:17)
[2023-03-29] MEDS: MIRALAX 17 GM POWD.PACK GT SCH (09:17)
[2023-03-29] MEDS: ESCITALOPRAM OXALATE 10 MG TABLET GT SCH (09:17)
[2023-03-29] MEDS: DOCUSATE SODIUM 100 MG/10 ML LIQUID UDC GT SCH (09:17)
[2023-03-29 10:20] VITALS: O2SAT 99
[2023-03-29] MEDS: diphenhydrAMINE 25 MG/10 ML UDC GT PRN (18:39)
[2023-03-29 19:54] VITALS: TEMP 97.8
[2023-03-29 20:12] VITALS: O2SAT 98
[2023-03-29] MEDS: PROTEIN SUPPLEMENT (PROSTAT) 30 ML LIQUID GT SCH (21:00)
[2023-03-29] MEDS: CRANBERRY 500 MG GT SCH (21:00)
[2023-03-29] MEDS: NUTRISOURCE FIBER 4 GM PACKET GT SCH (21:00)
[2023-03-29] MEDS: OMEGA-3 FATTY ACIDS/FISH OIL CAPSULE GT SCH (21:00)
[2023-03-29] MEDS: MAGNESIUM COMPLEX GT SCH (21:00)
[2023-03-29] MEDS: RIVAROXABAN 15 MG TABLET GT SCH (21:00)
[2023-03-30] MEDS: BACLOFEN 10 MG TABLET GT SCH ×4 (05:45→23:40)
[2023-03-30] MEDS: MULTIVIT, IRON, MIN NO. 8, FA TABLET GT SCH (05:45)
[2023-03-30] MEDS: OMEPRAZOLE 20 MG CAPSULE.DR GT SCH (05:45)
[2023-03-30 08:00] VITALS: BP 98/54; TEMP 97.8; O2SAT 98
[2023-03-30 08:10] VITALS: O2SAT 98
[2023-03-30] MEDS: HYDROGEN PEROXIDE 3% 118 ML BOTTLE TP SCH ×2 (09:00→21:10)
[2023-03-30] MEDS: ACIDOPHILUS/BULGARICUS CHEW TAB GT SCH ×2 (09:35→20:40)
[2023-03-30] MEDS: NEOMY/BACITRA/POLYMYXIN B OINT UD PACKET TP SCH (09:35)
[2023-03-30] MEDS: levETIRAcetam 500 MG/5 ML LIQUID UDC GT SCH ×2 (09:35→21:04)
[2023-03-30] MEDS: busPIRone 10 MG TABLET GT SCH ×3 (09:35→17:25)
[2023-03-30] MEDS: POLYVINYL ALCOHOL OPHT DROPS 15 ML BOTTLE EACHEYE SCH ×3 (09:35→17:25)
[2023-03-30] MEDS: VALPROIC ACID 250 MG/5 ML LIQUID UDC GT SCH ×2 (09:35→17:25)
[2023-03-30] MEDS: REMEDY ESSENTIAL ZINC PASTE 113 GM TP SCH ×2 (09:35→20:42)
[2023-03-30] MEDS: DOCUSATE SODIUM 100 MG/10 ML LIQUID UDC GT SCH (09:35)
[2023-03-30] MEDS: MIRALAX 17 GM POWD.PACK GT SCH (09:35)
[2023-03-30] MEDS: COAL TAR TOP SCH (09:35)
[2023-03-30] MEDS: ESCITALOPRAM OXALATE 10 MG TABLET GT SCH (09:35)
[2023-03-30] MEDS: POTASSIUM CHLORIDE 40 MEQ/30 ML LIQUID UDC GT SCH (09:35)
[2023-03-30 17:32] VITALS: O2SAT 98
[2023-03-30 19:48] VITALS: TEMP 97.9
[2023-03-30] MEDS: PROTEIN SUPPLEMENT (PROSTAT) 30 ML LIQUID GT SCH (20:41)
[2023-03-30] MEDS: NUTRISOURCE FIBER 4 GM PACKET GT SCH (20:41)
[2023-03-30] MEDS: CRANBERRY 500 MG GT SCH (20:41)
[2023-03-30 20:55] VITALS: O2SAT 98
[2023-03-30] MEDS: RIVAROXABAN 15 MG TABLET GT SCH (21:00)
[2023-03-30] MEDS: MAGNESIUM COMPLEX GT SCH (21:03)
[2023-03-30] MEDS: OMEGA-3 FATTY ACIDS/FISH OIL CAPSULE GT SCH (21:04)
[2023-03-31] MEDS: OMEPRAZOLE 20 MG CAPSULE.DR GT SCH (05:53)
[2023-03-31] MEDS: BACLOFEN 10 MG TABLET GT SCH ×4 (05:53→23:02)
[2023-03-31] MEDS: MULTIVIT, IRON, MIN NO. 8, FA TABLET GT SCH (05:53)
[2023-03-31 08:00] VITALS: TEMP 98.2
[2023-03-31] MEDS: HYDROGEN PEROXIDE 3% 118 ML BOTTLE TP SCH ×2 (08:11→21:45)
[2023-03-31] MEDS: VALPROIC ACID 250 MG/5 ML LIQUID UDC GT SCH ×2 (08:50→17:21)
[2023-03-31] MEDS: POLYVINYL ALCOHOL OPHT DROPS 15 ML BOTTLE EACHEYE SCH ×3 (08:50→17:21)
[2023-03-31] MEDS: busPIRone 10 MG TABLET GT SCH ×3 (08:50→17:21)
[2023-03-31] MEDS: DOCUSATE SODIUM 100 MG/10 ML LIQUID UDC GT SCH (08:50)
[2023-03-31] MEDS: ACIDOPHILUS/BULGARICUS CHEW TAB GT SCH ×2 (08:53→21:50)
[2023-03-31] MEDS: ESCITALOPRAM OXALATE 10 MG TABLET GT SCH (08:54)
[2023-03-31] MEDS: NEOMY/BACITRA/POLYMYXIN B OINT UD PACKET TP SCH (08:54)
[2023-03-31] MEDS: POTASSIUM CHLORIDE 40 MEQ/30 ML LIQUID UDC GT SCH (08:54)
[2023-03-31] MEDS: MIRALAX 17 GM POWD.PACK GT SCH (08:54)
[2023-03-31] MEDS: REMEDY ESSENTIAL ZINC PASTE 113 GM TP SCH ×2 (08:54→21:51)
[2023-03-31] MEDS: levETIRAcetam 500 MG/5 ML LIQUID UDC GT SCH ×2 (08:54→21:50)
[2023-03-31 10:50] VITALS: O2SAT 98; O2SAT 99
[2023-03-31 20:00] VITALS: TEMP 98
[2023-03-31] MEDS: OMEGA-3 FATTY ACIDS/FISH OIL CAPSULE GT SCH (21:50)
[2023-03-31] MEDS: CRANBERRY 500 MG GT SCH (21:50)
[2023-03-31] MEDS: PROTEIN SUPPLEMENT (PROSTAT) 30 ML LIQUID GT SCH (21:51)
[2023-03-31] MEDS: RIVAROXABAN 15 MG TABLET GT SCH (21:51)
[2023-03-31] MEDS: MAGNESIUM COMPLEX GT SCH (21:51)
[2023-03-31] MEDS: MELATONIN 3MG TABLET GT PRN (21:51)
[2023-03-31] MEDS: NUTRISOURCE FIBER 4 GM PACKET GT SCH (21:51)
[2023-04-01 00:17] VITALS: O2SAT 99
[2023-04-01] MEDS: OMEPRAZOLE 20 MG CAPSULE.DR GT SCH (05:04)
[2023-04-01] MEDS: MULTIVIT, IRON, MIN NO. 8, FA TABLET GT SCH (05:04)
[2023-04-01] MEDS: BACLOFEN 10 MG TABLET GT SCH ×4 (05:04→23:03)
[2023-04-01 08:00] VITALS: TEMP 98
[2023-04-01 08:10] VITALS: O2SAT 98
[2023-04-01] MEDS: DOCUSATE SODIUM 100 MG/10 ML LIQUID UDC GT SCH (08:32)
[2023-04-01] MEDS: VALPROIC ACID 250 MG/5 ML LIQUID UDC GT SCH ×2 (08:32→17:31)
[2023-04-01] MEDS: busPIRone 10 MG TABLET GT SCH ×3 (08:32→17:31)
[2023-04-01] MEDS: ACIDOPHILUS/BULGARICUS CHEW TAB GT SCH ×2 (08:32→20:54)
[2023-04-01] MEDS: levETIRAcetam 500 MG/5 ML LIQUID UDC GT SCH ×2 (08:33→20:54)
[2023-04-01] MEDS: MIRALAX 17 GM POWD.PACK GT SCH (08:33)
[2023-04-01] MEDS: POTASSIUM CHLORIDE 40 MEQ/30 ML LIQUID UDC GT SCH (08:33)
[2023-04-01] MEDS: REMEDY ESSENTIAL ZINC PASTE 113 GM TP SCH ×2 (08:33→20:55)
[2023-04-01] MEDS: ESCITALOPRAM OXALATE 10 MG TABLET GT SCH (08:33)
[2023-04-01] MEDS: HYDROGEN PEROXIDE 3% 118 ML BOTTLE TP SCH ×2 (09:00→20:39)
[2023-04-01] MEDS: NEOMY/BACITRA/POLYMYXIN B OINT UD PACKET TP SCH (09:00)
[2023-04-01] MEDS: POLYVINYL ALCOHOL OPHT DROPS 15 ML BOTTLE EACHEYE SCH ×3 (09:00→17:31)
[2023-04-01 19:53] VITALS: TEMP 98
[2023-04-01] MEDS: CRANBERRY 500 MG GT SCH (20:54)
[2023-04-01] MEDS: OMEGA-3 FATTY ACIDS/FISH OIL CAPSULE GT SCH (20:54)
[2023-04-01] MEDS: NUTRISOURCE FIBER 4 GM PACKET GT SCH (20:54)
[2023-04-01] MEDS: MAGNESIUM COMPLEX GT SCH (20:54)
[2023-04-01] MEDS: PROTEIN SUPPLEMENT (PROSTAT) 30 ML LIQUID GT SCH (20:54)
[2023-04-01] MEDS: RIVAROXABAN 15 MG TABLET GT SCH (20:55)
[2023-04-01] MEDS: MELATONIN 3MG TABLET GT PRN (20:56)
[2023-04-02 02:37] VITALS: O2SAT 96
[2023-04-02] MEDS: BACLOFEN 10 MG TABLET GT SCH ×3 (05:29→17:09)
[2023-04-02] MEDS: MULTIVIT, IRON, MIN NO. 8, FA TABLET GT SCH (05:29)
[2023-04-02] MEDS: OMEPRAZOLE 20 MG CAPSULE.DR GT SCH (05:29)
[2023-04-02] MEDS: POLYVINYL ALCOHOL OPHT DROPS 15 ML BOTTLE EACHEYE SCH ×3 (08:33→16:56)
[2023-04-02] MEDS: VALPROIC ACID 250 MG/5 ML LIQUID UDC GT SCH ×2 (08:34→16:56)
[2023-04-02] MEDS: DOCUSATE SODIUM 100 MG/10 ML LIQUID UDC GT SCH (08:34)
[2023-04-02] MEDS: busPIRone 10 MG TABLET GT SCH ×3 (08:34→16:56)
[2023-04-02] MEDS: ACIDOPHILUS/BULGARICUS CHEW TAB GT SCH ×2 (08:35→21:42)
[2023-04-02] MEDS: levETIRAcetam 500 MG/5 ML LIQUID UDC GT SCH ×2 (08:35→21:42)
[2023-04-02] MEDS: REMEDY ESSENTIAL ZINC PASTE 113 GM TP SCH ×2 (08:37→21:46)
[2023-04-02] MEDS: COAL TAR TOP SCH (08:37)
[2023-04-02] MEDS: MIRALAX 17 GM POWD.PACK GT SCH (08:37)
[2023-04-02] MEDS: POTASSIUM CHLORIDE 40 MEQ/30 ML LIQUID UDC GT SCH (08:37)
[2023-04-02] MEDS: ESCITALOPRAM OXALATE 10 MG TABLET GT SCH (08:37)
[2023-04-02] MEDS: HYDROGEN PEROXIDE 3% 118 ML BOTTLE TP SCH ×2 (09:00→21:05)
[2023-04-02 09:30] VITALS: O2SAT 98
[2023-04-02 09:56] VITALS: TEMP 97
[2023-04-02 20:00] VITALS: TEMP 97.4
[2023-04-02 20:06] VITALS: O2SAT 96
[2023-04-02] MEDS: OMEGA-3 FATTY ACIDS/FISH OIL CAPSULE GT SCH (21:42)
[2023-04-02] MEDS: PROTEIN SUPPLEMENT (PROSTAT) 30 ML LIQUID GT SCH (21:42)
[2023-04-02] MEDS: MAGNESIUM COMPLEX GT SCH (21:42)
[2023-04-02] MEDS: NUTRISOURCE FIBER 4 GM PACKET GT SCH (21:42)
[2023-04-02] MEDS: CRANBERRY 500 MG GT SCH (21:42)
[2023-04-02] MEDS: RIVAROXABAN 15 MG TABLET GT SCH (21:45)
[2023-04-03] MEDS: OMEPRAZOLE 20 MG CAPSULE.DR GT SCH (05:05)
[2023-04-03] MEDS: BACLOFEN 10 MG TABLET GT SCH ×5 (05:05→23:28)
[2023-04-03] MEDS: MULTIVIT, IRON, MIN NO. 8, FA TABLET GT SCH (05:05)
[2023-04-03 07:51] VITALS: O2SAT 98
[2023-04-03 08:00] VITALS: TEMP 98.2
[2023-04-03] MEDS: HYDROGEN PEROXIDE 3% 118 ML BOTTLE TP SCH (09:00)
[2023-04-03] MEDS: POLYVINYL ALCOHOL OPHT DROPS 15 ML BOTTLE EACHEYE SCH ×3 (09:32→17:11)
[2023-04-03] MEDS: DOCUSATE SODIUM 100 MG/10 ML LIQUID UDC GT SCH (09:32)
[2023-04-03] MEDS: levETIRAcetam 500 MG/5 ML LIQUID UDC GT SCH ×2 (09:32→21:54)
[2023-04-03] MEDS: VALPROIC ACID 250 MG/5 ML LIQUID UDC GT SCH ×2 (09:32→17:10)
[2023-04-03] MEDS: ESCITALOPRAM OXALATE 10 MG TABLET GT SCH (09:32)
[2023-04-03] MEDS: busPIRone 10 MG TABLET GT SCH ×3 (09:32→17:10)
[2023-04-03] MEDS: ACIDOPHILUS/BULGARICUS CHEW TAB GT SCH ×2 (09:32→21:54)
[2023-04-03] MEDS: POTASSIUM CHLORIDE 40 MEQ/30 ML LIQUID UDC GT SCH (09:33)
[2023-04-03] MEDS: REMEDY ESSENTIAL ZINC PASTE 113 GM TP SCH ×2 (09:33→21:54)
[2023-04-03] MEDS: MIRALAX 17 GM POWD.PACK GT SCH (09:33)
[2023-04-03 15:02] VITALS: O2SAT 98
[2023-04-03 20:33] VITALS: O2SAT 96
[2023-04-03] MEDS: OMEGA-3 FATTY ACIDS/FISH OIL CAPSULE GT SCH (21:54)
[2023-04-03] MEDS: PROTEIN SUPPLEMENT (PROSTAT) 30 ML LIQUID GT SCH (21:54)
[2023-04-03] MEDS: MAGNESIUM COMPLEX GT SCH (21:54)
[2023-04-03] MEDS: CRANBERRY 500 MG GT SCH (21:54)
[2023-04-03] MEDS: NUTRISOURCE FIBER 4 GM PACKET GT SCH (21:54)
[2023-04-03] MEDS: RIVAROXABAN 15 MG TABLET GT SCH (21:55)
[2023-04-04] MEDS: HYDROGEN PEROXIDE 3% 118 ML BOTTLE TP SCH ×3 (00:01→09:10)
[2023-04-04] MEDS: MULTIVIT, IRON, MIN NO. 8, FA TABLET GT SCH (05:49)
[2023-04-04] MEDS: OMEPRAZOLE 20 MG CAPSULE.DR GT SCH (05:49)
[2023-04-04] MEDS: BACLOFEN 10 MG TABLET GT SCH ×4 (05:49→23:16)
[2023-04-04 08:04] VITALS: TEMP 98.3
[2023-04-04 08:20] VITALS: O2SAT 98
[2023-04-04] MEDS: POLYVINYL ALCOHOL OPHT DROPS 15 ML BOTTLE EACHEYE SCH ×3 (08:24→16:59)
[2023-04-04] MEDS: DOCUSATE SODIUM 100 MG/10 ML LIQUID UDC GT SCH (08:25)
[2023-04-04] MEDS: busPIRone 10 MG TABLET GT SCH ×3 (08:25→16:50)
[2023-04-04] MEDS: VALPROIC ACID 250 MG/5 ML LIQUID UDC GT SCH ×2 (08:27→16:50)
[2023-04-04] MEDS: ACIDOPHILUS/BULGARICUS CHEW TAB GT SCH ×2 (08:27→21:40)
[2023-04-04] MEDS: levETIRAcetam 500 MG/5 ML LIQUID UDC GT SCH ×2 (08:28→21:40)
[2023-04-04] MEDS: ESCITALOPRAM OXALATE 10 MG TABLET GT SCH (08:28)
[2023-04-04] MEDS: MIRALAX 17 GM POWD.PACK GT SCH (08:31)
[2023-04-04] MEDS: POTASSIUM CHLORIDE 40 MEQ/30 ML LIQUID UDC GT SCH (08:32)
[2023-04-04] MEDS: REMEDY ESSENTIAL ZINC PASTE 113 GM TP SCH ×2 (08:33→21:40)
[2023-04-04] MEDS: TWOCAL HN 1,000 ML LIQUID GT PRN (16:06)
[2023-04-04] MEDS: ACETAMINOPHEN 650 MG/20 ML UDC- SA PATIENTS-PAIN ONLY GT PRN (16:47)
[2023-04-04 20:00] VITALS: TEMP 98.5
[2023-04-04 20:07] VITALS: O2SAT 96
[2023-04-04] MEDS: NUTRISOURCE FIBER 4 GM PACKET GT SCH (21:40)
[2023-04-04] MEDS: CRANBERRY 500 MG GT SCH (21:40)
[2023-04-04] MEDS: MELATONIN 3MG TABLET GT PRN (21:40)
[2023-04-04] MEDS: RIVAROXABAN 15 MG TABLET GT SCH (21:40)
[2023-04-04] MEDS: OMEGA-3 FATTY ACIDS/FISH OIL CAPSULE GT SCH (21:40)
[2023-04-04] MEDS: MAGNESIUM COMPLEX GT SCH (21:40)
[2023-04-04] MEDS: PROTEIN SUPPLEMENT (PROSTAT) 30 ML LIQUID GT SCH (21:40)
[2023-04-05] MEDS: MULTIVIT, IRON, MIN NO. 8, FA TABLET GT SCH (05:28)
[2023-04-05] MEDS: OMEPRAZOLE 20 MG CAPSULE.DR GT SCH (05:28)
[2023-04-05] MEDS: BACLOFEN 10 MG TABLET GT SCH ×3 (05:28→17:04)
[2023-04-05] MEDS: HYDROGEN PEROXIDE 3% 118 ML BOTTLE TP SCH ×2 (07:08→19:21)
[2023-04-05] MEDS: MIRALAX 17 GM POWD.PACK GT SCH (08:08)
[2023-04-05] MEDS: POTASSIUM CHLORIDE 40 MEQ/30 ML LIQUID UDC GT SCH (08:08)
[2023-04-05] MEDS: ACIDOPHILUS/BULGARICUS CHEW TAB GT SCH ×2 (08:08→21:01)
[2023-04-05] MEDS: VALPROIC ACID 250 MG/5 ML LIQUID UDC GT SCH ×2 (08:08→17:04)
[2023-04-05] MEDS: REMEDY ESSENTIAL ZINC PASTE 113 GM TP SCH ×2 (08:08→21:03)
[2023-04-05] MEDS: DOCUSATE SODIUM 100 MG/10 ML LIQUID UDC GT SCH (08:08)
[2023-04-05] MEDS: ESCITALOPRAM OXALATE 10 MG TABLET GT SCH (08:08)
[2023-04-05] MEDS: levETIRAcetam 500 MG/5 ML LIQUID UDC GT SCH ×2 (08:08→21:01)
[2023-04-05] MEDS: busPIRone 10 MG TABLET GT SCH ×3 (08:08→17:04)
[2023-04-05] MEDS: POLYVINYL ALCOHOL OPHT DROPS 15 ML BOTTLE EACHEYE SCH ×3 (08:08→17:04)
[2023-04-05 09:00] VITALS: O2SAT 98
[2023-04-05 09:22] VITALS: TEMP 97.4
[2023-04-05 19:20] VITALS: O2SAT 99
[2023-04-05] MEDS: OMEGA-3 FATTY ACIDS/FISH OIL CAPSULE GT SCH (21:01)
[2023-04-05] MEDS: NUTRISOURCE FIBER 4 GM PACKET GT SCH (21:02)
[2023-04-05] MEDS: PROTEIN SUPPLEMENT (PROSTAT) 30 ML LIQUID GT SCH (21:02)
[2023-04-05] MEDS: CRANBERRY 500 MG GT SCH (21:02)
[2023-04-05] MEDS: MAGNESIUM COMPLEX GT SCH (21:02)
[2023-04-05] MEDS: RIVAROXABAN 15 MG TABLET GT SCH (21:03)
[2023-04-05 21:40] VITALS: TEMP 98.3
[2023-04-05] MEDS: MELATONIN 3MG TABLET GT PRN (23:00)
[2023-04-06] MEDS: TWOCAL HN 1,000 ML LIQUID GT PRN (05:00)
[2023-04-06] MEDS: OMEPRAZOLE 20 MG CAPSULE.DR GT SCH (06:13)
[2023-04-06] MEDS: BACLOFEN 10 MG TABLET GT SCH ×4 (06:13→17:02)
[2023-04-06] MEDS: MULTIVIT, IRON, MIN NO. 8, FA TABLET GT SCH (06:13)
[2023-04-06] MEDS: HYDROGEN PEROXIDE 3% 118 ML BOTTLE TP SCH ×2 (08:01→23:08)
[2023-04-06] MEDS: busPIRone 10 MG TABLET GT SCH ×3 (08:22→16:33)
[2023-04-06] MEDS: ESCITALOPRAM OXALATE 10 MG TABLET GT SCH (08:22)
[2023-04-06] MEDS: POLYVINYL ALCOHOL OPHT DROPS 15 ML BOTTLE EACHEYE SCH ×3 (08:23→16:33)
[2023-04-06] MEDS: levETIRAcetam 500 MG/5 ML LIQUID UDC GT SCH ×2 (08:25→21:48)
[2023-04-06] MEDS: VALPROIC ACID 250 MG/5 ML LIQUID UDC GT SCH ×2 (08:25→16:33)
[2023-04-06] MEDS: POTASSIUM CHLORIDE 40 MEQ/30 ML LIQUID UDC GT SCH (08:26)
[2023-04-06] MEDS: NEOMY/BACITRA/POLYMYXIN B OINT UD PACKET TP SCH (08:28)
[2023-04-06] MEDS: REMEDY ESSENTIAL ZINC PASTE 113 GM TP SCH ×2 (08:28→21:53)
[2023-04-06] MEDS: COAL TAR TOP SCH (08:28)
[2023-04-06] MEDS: DOCUSATE SODIUM 100 MG/10 ML LIQUID UDC GT SCH (08:30)
[2023-04-06] MEDS: ACIDOPHILUS/BULGARICUS CHEW TAB GT SCH ×2 (08:32→21:48)
[2023-04-06] MEDS: MIRALAX 17 GM POWD.PACK GT SCH (08:35)
[2023-04-06 09:00] VITALS: O2SAT 98
[2023-04-06 09:09] VITALS: TEMP 97.5
[2023-04-06 20:00] VITALS: TEMP 97.8
[2023-04-06] MEDS: OMEGA-3 FATTY ACIDS/FISH OIL CAPSULE GT SCH (21:48)
[2023-04-06] MEDS: NUTRISOURCE FIBER 4 GM PACKET GT SCH (21:52)
[2023-04-06] MEDS: CRANBERRY 500 MG GT SCH (21:52)
[2023-04-06] MEDS: MAGNESIUM COMPLEX GT SCH (21:52)
[2023-04-06] MEDS: PROTEIN SUPPLEMENT (PROSTAT) 30 ML LIQUID GT SCH (21:52)
[2023-04-06] MEDS: RIVAROXABAN 15 MG TABLET GT SCH (21:53)
[2023-04-07 03:00] VITALS: O2SAT 94
[2023-04-07] MEDS: MULTIVIT, IRON, MIN NO. 8, FA TABLET GT SCH (05:50)
[2023-04-07] MEDS: OMEPRAZOLE 20 MG CAPSULE.DR GT SCH (05:50)
[2023-04-07] MEDS: BACLOFEN 10 MG TABLET GT SCH ×4 (05:50→17:01)
[2023-04-07] MEDS: HYDROGEN PEROXIDE 3% 118 ML BOTTLE TP SCH ×2 (08:25→21:11)
[2023-04-07] MEDS: VALPROIC ACID 250 MG/5 ML LIQUID UDC GT SCH ×2 (08:39→17:01)
[2023-04-07] MEDS: POLYVINYL ALCOHOL OPHT DROPS 15 ML BOTTLE EACHEYE SCH ×3 (08:39→17:01)
[2023-04-07] MEDS: busPIRone 10 MG TABLET GT SCH ×3 (08:39→17:01)
[2023-04-07] MEDS: DOCUSATE SODIUM 100 MG/10 ML LIQUID UDC GT SCH (08:39)
[2023-04-07] MEDS: ACIDOPHILUS/BULGARICUS CHEW TAB GT SCH ×2 (08:40→21:00)
[2023-04-07] MEDS: levETIRAcetam 500 MG/5 ML LIQUID UDC GT SCH ×2 (08:41→21:00)
[2023-04-07] MEDS: POTASSIUM CHLORIDE 40 MEQ/30 ML LIQUID UDC GT SCH (08:41)
[2023-04-07] MEDS: REMEDY ESSENTIAL ZINC PASTE 113 GM TP SCH ×2 (08:41→21:00)
[2023-04-07] MEDS: MIRALAX 17 GM POWD.PACK GT SCH (08:41)
[2023-04-07] MEDS: ESCITALOPRAM OXALATE 10 MG TABLET GT SCH (08:41)
[2023-04-07] MEDS: NEOMY/BACITRA/POLYMYXIN B OINT UD PACKET TP SCH (09:00)
[2023-04-07 09:04] VITALS: TEMP 97.5
[2023-04-07 14:16] VITALS: O2SAT 98
[2023-04-07 20:38] VITALS: O2SAT 96
[2023-04-07] MEDS: CRANBERRY 500 MG GT SCH (21:00)
[2023-04-07] MEDS: NUTRISOURCE FIBER 4 GM PACKET GT SCH (21:00)
[2023-04-07] MEDS: RIVAROXABAN 15 MG TABLET GT SCH (21:00)
[2023-04-07] MEDS: OMEGA-3 FATTY ACIDS/FISH OIL CAPSULE GT SCH (21:00)
[2023-04-07] MEDS: PROTEIN SUPPLEMENT (PROSTAT) 30 ML LIQUID GT SCH (21:00)
[2023-04-07] MEDS: MAGNESIUM COMPLEX GT SCH (21:00)
[2023-04-07] MEDS: MELATONIN 3MG TABLET GT PRN (22:00)
[2023-04-07 23:29] VITALS: TEMP 98.4
[2023-04-08] MEDS: TWOCAL HN 1,000 ML LIQUID GT PRN (04:31)
[2023-04-08] MEDS: BACLOFEN 10 MG TABLET GT SCH ×4 (05:36→17:05)
[2023-04-08] MEDS: MULTIVIT, IRON, MIN NO. 8, FA TABLET GT SCH (05:36)
[2023-04-08] MEDS: OMEPRAZOLE 20 MG CAPSULE.DR GT SCH (05:36)
[2023-04-08 07:50] VITALS: TEMP 97.8
[2023-04-08 08:20] VITALS: O2SAT 98
[2023-04-08] MEDS: HYDROGEN PEROXIDE 3% 118 ML BOTTLE TP SCH (09:00)
[2023-04-08] MEDS: NEOMY/BACITRA/POLYMYXIN B OINT UD PACKET TP SCH (09:00)
[2023-04-08] MEDS: busPIRone 10 MG TABLET GT SCH ×3 (09:12→17:04)
[2023-04-08] MEDS: DOCUSATE SODIUM 100 MG/10 ML LIQUID UDC GT SCH (09:12)
[2023-04-08] MEDS: POLYVINYL ALCOHOL OPHT DROPS 15 ML BOTTLE EACHEYE SCH ×3 (09:12→17:04)
[2023-04-08] MEDS: VALPROIC ACID 250 MG/5 ML LIQUID UDC GT SCH ×2 (09:13→17:04)
[2023-04-08] MEDS: ACIDOPHILUS/BULGARICUS CHEW TAB GT SCH ×2 (09:13→20:41)
[2023-04-08] MEDS: levETIRAcetam 500 MG/5 ML LIQUID UDC GT SCH ×2 (09:13→20:42)
[2023-04-08] MEDS: REMEDY ESSENTIAL ZINC PASTE 113 GM TP SCH ×2 (09:14→20:45)
[2023-04-08] MEDS: POTASSIUM CHLORIDE 40 MEQ/30 ML LIQUID UDC GT SCH (09:14)
[2023-04-08] MEDS: MIRALAX 17 GM POWD.PACK GT SCH (09:14)
[2023-04-08] MEDS: ESCITALOPRAM OXALATE 10 MG TABLET GT SCH (09:14)
[2023-04-08 14:29] VITALS: O2SAT 98
[2023-04-08 20:00] VITALS: TEMP 97.2
[2023-04-08 20:16] VITALS: O2SAT 96
[2023-04-08] MEDS: OMEGA-3 FATTY ACIDS/FISH OIL CAPSULE GT SCH (20:41)
[2023-04-08] MEDS: NUTRISOURCE FIBER 4 GM PACKET GT SCH (20:42)
[2023-04-08] MEDS: CRANBERRY 500 MG GT SCH (20:42)
[2023-04-08] MEDS: MAGNESIUM COMPLEX GT SCH (20:42)
[2023-04-08] MEDS: PROTEIN SUPPLEMENT (PROSTAT) 30 ML LIQUID GT SCH (20:45)
[2023-04-08] MEDS: RIVAROXABAN 15 MG TABLET GT SCH (20:45)
[2023-04-08] MEDS: MELATONIN 3MG TABLET GT PRN (20:57)
[2023-04-09] MEDS: HYDROGEN PEROXIDE 3% 118 ML BOTTLE TP SCH ×3 (00:40→21:58)
[2023-04-09] MEDS: MULTIVIT, IRON, MIN NO. 8, FA TABLET GT SCH (05:09)
[2023-04-09] MEDS: BACLOFEN 10 MG TABLET GT SCH ×5 (05:09→23:13)
[2023-04-09] MEDS: OMEPRAZOLE 20 MG CAPSULE.DR GT SCH (05:09)
[2023-04-09 07:39] VITALS: TEMP 97.4
[2023-04-09] MEDS: POTASSIUM CHLORIDE 40 MEQ/30 ML LIQUID UDC GT SCH (09:56)
[2023-04-09] MEDS: MIRALAX 17 GM POWD.PACK GT SCH (09:56)
[2023-04-09] MEDS: levETIRAcetam 500 MG/5 ML LIQUID UDC GT SCH ×2 (09:56→21:00)
[2023-04-09] MEDS: REMEDY ESSENTIAL ZINC PASTE 113 GM TP SCH ×2 (09:56→21:00)
[2023-04-09] MEDS: ESCITALOPRAM OXALATE 10 MG TABLET GT SCH (09:56)
[2023-04-09] MEDS: ACIDOPHILUS/BULGARICUS CHEW TAB GT SCH ×2 (09:56→21:00)
[2023-04-09] MEDS: busPIRone 10 MG TABLET GT SCH ×3 (09:56→17:05)
[2023-04-09] MEDS: NEOMY/BACITRA/POLYMYXIN B OINT UD PACKET TP SCH (09:56)
[2023-04-09] MEDS: VALPROIC ACID 250 MG/5 ML LIQUID UDC GT SCH ×2 (09:56→17:05)
[2023-04-09] MEDS: COAL TAR TOP SCH (09:56)
[2023-04-09] MEDS: POLYVINYL ALCOHOL OPHT DROPS 15 ML BOTTLE EACHEYE SCH ×3 (09:56→17:05)
[2023-04-09] MEDS: DOCUSATE SODIUM 100 MG/10 ML LIQUID UDC GT SCH (09:56)
[2023-04-09 11:10] VITALS: O2SAT 98
[2023-04-09 16:10] VITALS: O2SAT 99
[2023-04-09] MEDS: IPRATROPIUM BROMIDE 0.5 MG/2.5 ML NEBU NEB PRN (16:10)
[2023-04-09] MEDS: ALBUTEROL SULFATE 2.5 MG/3 ML NEBU NEB PRN (16:10)
[2023-04-09 16:25] VITALS: O2SAT 100
[2023-04-09 20:00] VITALS: TEMP 98.8
[2023-04-09] MEDS: MAGNESIUM COMPLEX GT SCH (21:00)
[2023-04-09] MEDS: NUTRISOURCE FIBER 4 GM PACKET GT SCH (21:00)
[2023-04-09] MEDS: CRANBERRY 500 MG GT SCH (21:00)
[2023-04-09] MEDS: RIVAROXABAN 15 MG TABLET GT SCH (21:00)
[2023-04-09] MEDS: PROTEIN SUPPLEMENT (PROSTAT) 30 ML LIQUID GT SCH (21:00)
[2023-04-09] MEDS: OMEGA-3 FATTY ACIDS/FISH OIL CAPSULE GT SCH (22:00)
[2023-04-09] MEDS: MELATONIN 3MG TABLET GT PRN (22:04)
[2023-04-10 03:45] VITALS: O2SAT 99
[2023-04-10] MEDS: BACLOFEN 10 MG TABLET GT SCH ×3 (05:34→17:18)
[2023-04-10] MEDS: MULTIVIT, IRON, MIN NO. 8, FA TABLET GT SCH (05:35)
[2023-04-10] MEDS: OMEPRAZOLE 20 MG CAPSULE.DR GT SCH (05:35)
[2023-04-10] MEDS: HYDROGEN PEROXIDE 3% 118 ML BOTTLE TP SCH ×2 (07:23→19:42)
[2023-04-10 09:00] VITALS: TEMP 98.4
[2023-04-10] MEDS: REMEDY ESSENTIAL ZINC PASTE 113 GM TP SCH ×2 (09:00→21:00)
[2023-04-10] MEDS: levETIRAcetam 500 MG/5 ML LIQUID UDC GT SCH ×2 (09:00→20:54)
[2023-04-10] MEDS: NEOMY/BACITRA/POLYMYXIN B OINT UD PACKET TP SCH (09:00)
[2023-04-10] MEDS: ACIDOPHILUS/BULGARICUS CHEW TAB GT SCH ×2 (09:00→20:54)
[2023-04-10] MEDS: busPIRone 10 MG TABLET GT SCH ×3 (09:00→17:18)
[2023-04-10] MEDS: ESCITALOPRAM OXALATE 10 MG TABLET GT SCH (09:00)
[2023-04-10] MEDS: MIRALAX 17 GM POWD.PACK GT SCH (09:00)
[2023-04-10] MEDS: POTASSIUM CHLORIDE 40 MEQ/30 ML LIQUID UDC GT SCH (09:00)
[2023-04-10] MEDS: VALPROIC ACID 250 MG/5 ML LIQUID UDC GT SCH ×2 (09:00→17:18)
[2023-04-10] MEDS: DOCUSATE SODIUM 100 MG/10 ML LIQUID UDC GT SCH (09:00)
[2023-04-10] MEDS: POLYVINYL ALCOHOL OPHT DROPS 15 ML BOTTLE EACHEYE SCH ×3 (09:00→17:18)
[2023-04-10 09:50] VITALS: O2SAT 98
[2023-04-10 20:00] VITALS: TEMP 98.4
[2023-04-10 20:35] VITALS: O2SAT 99
[2023-04-10] MEDS: OMEGA-3 FATTY ACIDS/FISH OIL CAPSULE GT SCH (20:54)
[2023-04-10] MEDS: CRANBERRY 500 MG GT SCH (20:54)
[2023-04-10] MEDS: NUTRISOURCE FIBER 4 GM PACKET GT SCH (20:55)
[2023-04-10] MEDS: PROTEIN SUPPLEMENT (PROSTAT) 30 ML LIQUID GT SCH (20:55)
[2023-04-10] MEDS: MAGNESIUM COMPLEX GT SCH (20:55)
[2023-04-10] MEDS: RIVAROXABAN 15 MG TABLET GT SCH (21:00)
[2023-04-10] MEDS: ACETAMINOPHEN 650 MG/20 ML UDC- SA PATIENTS-PAIN ONLY GT PRN (21:54)
[2023-04-11] MEDS: ACETAMINOPHEN 650 MG/20 ML UDC- SA PATIENTS-PAIN ONLY GT PRN ×2 (04:56→15:44)
[2023-04-11] MEDS: BACLOFEN 10 MG TABLET GT SCH ×5 (05:45→23:05)
[2023-04-11] MEDS: OMEPRAZOLE 20 MG CAPSULE.DR GT SCH (05:45)
[2023-04-11] MEDS: MULTIVIT, IRON, MIN NO. 8, FA TABLET GT SCH (05:45)
[2023-04-11 08:07] VITALS: TEMP 97.7
[2023-04-11] MEDS: levETIRAcetam 500 MG/5 ML LIQUID UDC GT SCH ×2 (09:19→21:38)
[2023-04-11] MEDS: REMEDY ESSENTIAL ZINC PASTE 113 GM TP SCH ×2 (09:19→21:41)
[2023-04-11] MEDS: busPIRone 10 MG TABLET GT SCH ×3 (09:19→17:40)
[2023-04-11] MEDS: NEOMY/BACITRA/POLYMYXIN B OINT UD PACKET TP SCH (09:19)
[2023-04-11] MEDS: POTASSIUM CHLORIDE 40 MEQ/30 ML LIQUID UDC GT SCH (09:19)
[2023-04-11] MEDS: ESCITALOPRAM OXALATE 10 MG TABLET GT SCH (09:19)
[2023-04-11] MEDS: POLYVINYL ALCOHOL OPHT DROPS 15 ML BOTTLE EACHEYE SCH ×3 (09:19→17:40)
[2023-04-11] MEDS: VALPROIC ACID 250 MG/5 ML LIQUID UDC GT SCH ×2 (09:19→17:40)
[2023-04-11] MEDS: DOCUSATE SODIUM 100 MG/10 ML LIQUID UDC GT SCH (09:19)
[2023-04-11] MEDS: ACIDOPHILUS/BULGARICUS CHEW TAB GT SCH ×2 (09:19→21:37)
[2023-04-11] MEDS: MIRALAX 17 GM POWD.PACK GT SCH (09:19)
[2023-04-11] MEDS: HYDROGEN PEROXIDE 3% 118 ML BOTTLE TP SCH (09:33)
[2023-04-11 10:15] VITALS: O2SAT 98
[2023-04-11 20:21] VITALS: TEMP 98
[2023-04-11 20:23] VITALS: TEMP 98
[2023-04-11] MEDS: OMEGA-3 FATTY ACIDS/FISH OIL CAPSULE GT SCH (21:37)
[2023-04-11] MEDS: MAGNESIUM COMPLEX GT SCH (21:38)
[2023-04-11] MEDS: CRANBERRY 500 MG GT SCH (21:38)
[2023-04-11] MEDS: NUTRISOURCE FIBER 4 GM PACKET GT SCH (21:41)
[2023-04-11] MEDS: PROTEIN SUPPLEMENT (PROSTAT) 30 ML LIQUID GT SCH (21:41)
[2023-04-11] MEDS: RIVAROXABAN 15 MG TABLET GT SCH (21:58)
[2023-04-12] MEDS: HYDROGEN PEROXIDE 3% 118 ML BOTTLE TP SCH ×3 (00:58→20:23)
[2023-04-12 03:10] VITALS: O2SAT 97
[2023-04-12] MEDS: MULTIVIT, IRON, MIN NO. 8, FA TABLET GT SCH (06:58)
[2023-04-12] MEDS: BACLOFEN 10 MG TABLET GT SCH ×4 (06:58→23:54)
[2023-04-12] MEDS: OMEPRAZOLE 20 MG CAPSULE.DR GT SCH (06:58)
[2023-04-12 08:00] VITALS: BP 95/52; TEMP 97.7; O2SAT 97
[2023-04-12] MEDS: DOCUSATE SODIUM 100 MG/10 ML LIQUID UDC GT SCH (08:21)
[2023-04-12] MEDS: POLYVINYL ALCOHOL OPHT DROPS 15 ML BOTTLE EACHEYE SCH ×3 (08:21→17:00)
[2023-04-12] MEDS: busPIRone 10 MG TABLET GT SCH ×3 (08:21→17:00)
[2023-04-12] MEDS: VALPROIC ACID 250 MG/5 ML LIQUID UDC GT SCH ×2 (08:22→17:00)
[2023-04-12] MEDS: ACIDOPHILUS/BULGARICUS CHEW TAB GT SCH ×2 (08:24→21:28)
[2023-04-12] MEDS: levETIRAcetam 500 MG/5 ML LIQUID UDC GT SCH ×2 (08:24→21:28)
[2023-04-12] MEDS: ESCITALOPRAM OXALATE 10 MG TABLET GT SCH (08:24)
[2023-04-12] MEDS: MIRALAX 17 GM POWD.PACK GT SCH (08:27)
[2023-04-12] MEDS: REMEDY ESSENTIAL ZINC PASTE 113 GM TP SCH ×2 (08:27→21:30)
[2023-04-12] MEDS: NEOMY/BACITRA/POLYMYXIN B OINT UD PACKET TP SCH (08:27)
[2023-04-12] MEDS: POTASSIUM CHLORIDE 40 MEQ/30 ML LIQUID UDC GT SCH (08:27)
[2023-04-12] MEDS: ACETAMINOPHEN 650 MG/20 ML UDC- SA PATIENTS-PAIN ONLY GT PRN (08:36)
[2023-04-12 09:30] VITALS: O2SAT 98
[2023-04-12 20:00] VITALS: TEMP 98
[2023-04-12] MEDS: RIVAROXABAN 15 MG TABLET GT SCH (21:00)
[2023-04-12] MEDS: OMEGA-3 FATTY ACIDS/FISH OIL CAPSULE GT SCH (21:27)
[2023-04-12] MEDS: MAGNESIUM COMPLEX GT SCH (21:28)
[2023-04-12] MEDS: CRANBERRY 500 MG GT SCH (21:28)
[2023-04-12] MEDS: PROTEIN SUPPLEMENT (PROSTAT) 30 ML LIQUID GT SCH (21:28)
[2023-04-12] MEDS: NUTRISOURCE FIBER 4 GM PACKET GT SCH (21:28)
[2023-04-13] MEDS: MELATONIN 3MG TABLET GT PRN
[2023-04-13] MEDS: MULTIVIT, IRON, MIN NO. 8, FA TABLET GT SCH (05:18)
[2023-04-13] MEDS: BACLOFEN 10 MG TABLET GT SCH ×3 (05:18→17:20)
[2023-04-13] MEDS: OMEPRAZOLE 20 MG CAPSULE.DR GT SCH (05:18)
[2023-04-13 08:00] VITALS: O2SAT 98
[2023-04-13] MEDS: COAL TAR TOP SCH (09:00)
[2023-04-13] MEDS: MIRALAX 17 GM POWD.PACK GT SCH (09:00)
[2023-04-13] MEDS: levETIRAcetam 500 MG/5 ML LIQUID UDC GT SCH ×2 (09:00→21:48)
[2023-04-13] MEDS: NEOMY/BACITRA/POLYMYXIN B OINT UD PACKET TP SCH (09:00)
[2023-04-13] MEDS: busPIRone 10 MG TABLET GT SCH ×3 (09:00→17:20)
[2023-04-13] MEDS: VALPROIC ACID 250 MG/5 ML LIQUID UDC GT SCH ×2 (09:00→17:20)
[2023-04-13] MEDS: POTASSIUM CHLORIDE 40 MEQ/30 ML LIQUID UDC GT SCH (09:00)
[2023-04-13] MEDS: REMEDY ESSENTIAL ZINC PASTE 113 GM TP SCH ×2 (09:00→21:49)
[2023-04-13] MEDS: ACIDOPHILUS/BULGARICUS CHEW TAB GT SCH ×2 (09:00→21:48)
[2023-04-13] MEDS: ESCITALOPRAM OXALATE 10 MG TABLET GT SCH (09:00)
[2023-04-13] MEDS: POLYVINYL ALCOHOL OPHT DROPS 15 ML BOTTLE EACHEYE SCH ×3 (09:00→17:20)
[2023-04-13] MEDS: DOCUSATE SODIUM 100 MG/10 ML LIQUID UDC GT SCH (09:00)
[2023-04-13] MEDS: HYDROGEN PEROXIDE 3% 118 ML BOTTLE TP SCH ×2 (09:15→22:20)
[2023-04-13 09:16] VITALS: TEMP 98
[2023-04-13 11:56] LABS: BASOPHILS % (AUTO) 0.6 % (0.0-2.0); EOSINOPHILS # (AUTO) 0.3 K/uL (0.0-0.7); HEMATOCRIT 39.6 % (31.2-41.9); HEMOGLOBIN 13.5 g/dL (10.9-14.3); LYMPHOCYTES # (AUTO) 2.3 K/uL (0.8-4.8); LYMPHOCYTES % (AUTO) 31.9 % (20.5-51.5); MEAN CORPUSCULAR HEMOGLOBIN 31.7 uug (24.7-32.8); MEAN CORPUSCULAR HGB CONC 34 g/dL (32.3-35.6); MEAN CORPUSCULAR VOLUME 92.7 fL (75.5-95.3); MONOCYTES # (AUTO) 0.5 K/uL (0.1-1.30); MONOCYTES % (AUTO) 6.8 % (0.0-11.0); NEUTROPHILS # (AUTO) 4.1 K/uL (1.8-8.9); NEUTROPHILS % (AUTO) 56.7 % (38.5-71.5); PLATELET COUNT (AUTO) 189 K/uL (179-408); RED BLOOD CELL COUNT(AUTO) 4.27 MIL/uL (3.63-4.92); RED CELL DISTRIBUTION WIDTH 13.5 % (12.3-17.7); WHITE BLOOD COUNT (AUTO) 7.2 K/uL (3.8-11.8)
[2023-04-13 11:59] LABS: DIFFERENTIAL COMMENT 1
[2023-04-13 12:07] LABS: ALBUMIN 3.3 g/dL (3.4-5.0); BILIRUBIN,TOTAL 0.4 mg/dL (0.2-1.0); CALCIUM 8.6 mg/dL (8.5-10.1); CREATININE 0.6 mg/dL (0.6-1.3); POTASSIUM 3.9 mmol/L (3.5-5.1); TOTAL PROTEIN, SERUM 7.4 g/dL (6.4-8.2)
[2023-04-13 13:02] LABS: ERYTHROCYTE SEDIMENTATION RATE 6 MM/HR (0-20)
[2023-04-13 17:31] VITALS: O2SAT 98
[2023-04-13 19:39] VITALS: TEMP 98.6
[2023-04-13 20:13] VITALS: O2SAT 99
[2023-04-13] MEDS: CRANBERRY 500 MG GT SCH (21:48)
[2023-04-13] MEDS: PROTEIN SUPPLEMENT (PROSTAT) 30 ML LIQUID GT SCH (21:48)
[2023-04-13] MEDS: OMEGA-3 FATTY ACIDS/FISH OIL CAPSULE GT SCH (21:48)
[2023-04-13] MEDS: NUTRISOURCE FIBER 4 GM PACKET GT SCH (21:48)
[2023-04-13] MEDS: MAGNESIUM COMPLEX GT SCH (21:48)
[2023-04-13] MEDS: AMOXICILLIN-CLAVUL 875-125MG TABLET GT SCH (21:48)
[2023-04-13] MEDS: RIVAROXABAN 15 MG TABLET GT SCH (21:49)
[2023-04-14] MEDS: OMEPRAZOLE 20 MG CAPSULE.DR GT SCH (05:53)
[2023-04-14] MEDS: MULTIVIT, IRON, MIN NO. 8, FA TABLET GT SCH (05:53)
[2023-04-14] MEDS: BACLOFEN 10 MG TABLET GT SCH ×4 (05:53→17:22)
[2023-04-14] MEDS: HYDROGEN PEROXIDE 3% 118 ML BOTTLE TP SCH ×2 (07:25→19:20)
[2023-04-14 08:00] VITALS: TEMP 97.2
[2023-04-14] MEDS: POLYVINYL ALCOHOL OPHT DROPS 15 ML BOTTLE EACHEYE SCH ×3 (10:56→17:22)
[2023-04-14] MEDS: DOCUSATE SODIUM 100 MG/10 ML LIQUID UDC GT SCH (10:56)
[2023-04-14] MEDS: AMOXICILLIN-CLAVUL 875-125MG TABLET GT SCH ×2 (10:56→21:51)
[2023-04-14] MEDS: busPIRone 10 MG TABLET GT SCH ×3 (10:56→17:22)
[2023-04-14] MEDS: ESCITALOPRAM OXALATE 10 MG TABLET GT SCH (10:57)
[2023-04-14] MEDS: POTASSIUM CHLORIDE 40 MEQ/30 ML LIQUID UDC GT SCH (10:57)
[2023-04-14] MEDS: ACIDOPHILUS/BULGARICUS CHEW TAB GT SCH ×2 (10:57→21:51)
[2023-04-14] MEDS: REMEDY ESSENTIAL ZINC PASTE 113 GM TP SCH ×2 (10:57→21:52)
[2023-04-14] MEDS: NEOMY/BACITRA/POLYMYXIN B OINT UD PACKET TP SCH (10:57)
[2023-04-14] MEDS: VALPROIC ACID 250 MG/5 ML LIQUID UDC GT SCH ×2 (10:57→17:22)
[2023-04-14] MEDS: levETIRAcetam 500 MG/5 ML LIQUID UDC GT SCH ×2 (10:57→21:51)
[2023-04-14] MEDS: MIRALAX 17 GM POWD.PACK GT SCH (10:57)
[2023-04-14 11:36] VITALS: O2SAT 98
[2023-04-14] MEDS: JEVITY 1.2 1000 ML LIQUID GT PRN (12:16)
[2023-04-14 20:00] VITALS: TEMP 97.8
[2023-04-14 21:10] VITALS: O2SAT 98
[2023-04-14] MEDS: PROTEIN SUPPLEMENT (PROSTAT) 30 ML LIQUID GT SCH (21:51)
[2023-04-14] MEDS: CRANBERRY 500 MG GT SCH (21:51)
[2023-04-14] MEDS: MAGNESIUM COMPLEX GT SCH (21:51)
[2023-04-14] MEDS: OMEGA-3 FATTY ACIDS/FISH OIL CAPSULE GT SCH (21:51)
[2023-04-14] MEDS: NUTRISOURCE FIBER 4 GM PACKET GT SCH (21:51)
[2023-04-14] MEDS: RIVAROXABAN 15 MG TABLET GT SCH (21:53)
[2023-04-15] MEDS: BACLOFEN 10 MG TABLET GT SCH ×5 (00:06→23:05)
[2023-04-15] MEDS: MULTIVIT, IRON, MIN NO. 8, FA TABLET GT SCH (05:45)
[2023-04-15] MEDS: OMEPRAZOLE 20 MG CAPSULE.DR GT SCH (05:45)
[2023-04-15 08:00] VITALS: TEMP 97.6
[2023-04-15] MEDS: ESCITALOPRAM OXALATE 10 MG TABLET GT SCH (08:04)
[2023-04-15] MEDS: REMEDY ESSENTIAL ZINC PASTE 113 GM TP SCH ×2 (08:04→21:06)
[2023-04-15] MEDS: VALPROIC ACID 250 MG/5 ML LIQUID UDC GT SCH ×2 (08:04→17:04)
[2023-04-15] MEDS: ACIDOPHILUS/BULGARICUS CHEW TAB GT SCH ×2 (08:04→21:05)
[2023-04-15] MEDS: POTASSIUM CHLORIDE 40 MEQ/30 ML LIQUID UDC GT SCH (08:04)
[2023-04-15] MEDS: MIRALAX 17 GM POWD.PACK GT SCH (08:04)
[2023-04-15] MEDS: busPIRone 10 MG TABLET GT SCH ×3 (08:04→17:04)
[2023-04-15] MEDS: POLYVINYL ALCOHOL OPHT DROPS 15 ML BOTTLE EACHEYE SCH ×3 (08:04→17:04)
[2023-04-15] MEDS: levETIRAcetam 500 MG/5 ML LIQUID UDC GT SCH ×2 (08:04→21:05)
[2023-04-15] MEDS: AMOXICILLIN-CLAVUL 875-125MG TABLET GT SCH ×2 (08:04→21:05)
[2023-04-15] MEDS: DOCUSATE SODIUM 100 MG/10 ML LIQUID UDC GT SCH (08:04)
[2023-04-15] MEDS: NEOMY/BACITRA/POLYMYXIN B OINT UD PACKET TP SCH (08:04)
[2023-04-15 08:30] VITALS: O2SAT 98
[2023-04-15] MEDS: HYDROGEN PEROXIDE 3% 118 ML BOTTLE TP SCH ×2 (09:00→21:25)
[2023-04-15 16:27] VITALS: O2SAT 98
[2023-04-15] MEDS: JEVITY 1.2 1000 ML LIQUID GT PRN (19:27)
[2023-04-15 20:00] VITALS: TEMP 97.6
[2023-04-15] MEDS: RIVAROXABAN 15 MG TABLET GT SCH (21:05)
[2023-04-15] MEDS: OMEGA-3 FATTY ACIDS/FISH OIL CAPSULE GT SCH (21:05)
[2023-04-15] MEDS: NUTRISOURCE FIBER 4 GM PACKET GT SCH (21:05)
[2023-04-15] MEDS: MAGNESIUM COMPLEX GT SCH (21:05)
[2023-04-15] MEDS: CRANBERRY 500 MG GT SCH (21:05)
[2023-04-15] MEDS: PROTEIN SUPPLEMENT (PROSTAT) 30 ML LIQUID GT SCH (21:05)
[2023-04-16] MEDS: BACLOFEN 10 MG TABLET GT SCH ×3 (05:05→17:30)
[2023-04-16] MEDS: MULTIVIT, IRON, MIN NO. 8, FA TABLET GT SCH (05:05)
[2023-04-16] MEDS: OMEPRAZOLE 20 MG CAPSULE.DR GT SCH (05:05)
[2023-04-16] MEDS: HYDROGEN PEROXIDE 3% 118 ML BOTTLE TP SCH ×2 (07:45→21:47)
[2023-04-16] MEDS: AMOXICILLIN-CLAVUL 875-125MG TABLET GT SCH ×2 (08:48→21:00)
[2023-04-16] MEDS: POLYVINYL ALCOHOL OPHT DROPS 15 ML BOTTLE EACHEYE SCH ×3 (08:48→17:28)
[2023-04-16] MEDS: busPIRone 10 MG TABLET GT SCH ×3 (08:48→17:28)
[2023-04-16] MEDS: ACIDOPHILUS/BULGARICUS CHEW TAB GT SCH ×2 (08:51→21:00)
[2023-04-16] MEDS: VALPROIC ACID 250 MG/5 ML LIQUID UDC GT SCH ×2 (08:51→17:29)
[2023-04-16] MEDS: DOCUSATE SODIUM 100 MG/10 ML LIQUID UDC GT SCH (08:51)
[2023-04-16] MEDS: levETIRAcetam 500 MG/5 ML LIQUID UDC GT SCH ×2 (08:52→21:00)
[2023-04-16] MEDS: COAL TAR TOP SCH (08:53)
[2023-04-16] MEDS: POTASSIUM CHLORIDE 40 MEQ/30 ML LIQUID UDC GT SCH (08:53)
[2023-04-16] MEDS: REMEDY ESSENTIAL ZINC PASTE 113 GM TP SCH ×2 (08:53→21:00)
[2023-04-16] MEDS: MIRALAX 17 GM POWD.PACK GT SCH (08:53)
[2023-04-16] MEDS: ESCITALOPRAM OXALATE 10 MG TABLET GT SCH (08:53)
[2023-04-16 10:40] VITALS: O2SAT 98
[2023-04-16 11:29] VITALS: TEMP 97
[2023-04-16] MEDS: JEVITY 1.2 1000 ML LIQUID GT PRN (17:30)
[2023-04-16 20:00] VITALS: TEMP 98.2
[2023-04-16 20:20] VITALS: O2SAT 98
[2023-04-16] MEDS: PROTEIN SUPPLEMENT (PROSTAT) 30 ML LIQUID GT SCH (21:00)
[2023-04-16] MEDS: CRANBERRY 500 MG GT SCH (21:00)
[2023-04-16] MEDS: NEOMY/BACITRA/POLYMYXIN B OINT UD PACKET TP SCH (21:00)
[2023-04-16] MEDS: NUTRISOURCE FIBER 4 GM PACKET GT SCH (21:00)
[2023-04-16] MEDS: RIVAROXABAN 15 MG TABLET GT SCH (21:00)
[2023-04-16] MEDS: MAGNESIUM COMPLEX GT SCH (21:00)
[2023-04-16] MEDS: OMEGA-3 FATTY ACIDS/FISH OIL CAPSULE GT SCH (21:00)
[2023-04-17] MEDS: BACLOFEN 10 MG TABLET GT SCH ×4 (00:38→17:23)
[2023-04-17] MEDS: MULTIVIT, IRON, MIN NO. 8, FA TABLET GT SCH (05:49)
[2023-04-17] MEDS: OMEPRAZOLE 20 MG CAPSULE.DR GT SCH (05:49)
[2023-04-17] MEDS: HYDROGEN PEROXIDE 3% 118 ML BOTTLE TP SCH ×2 (07:41→21:49)
[2023-04-17] MEDS: POLYVINYL ALCOHOL OPHT DROPS 15 ML BOTTLE EACHEYE SCH ×3 (08:55→17:23)
[2023-04-17] MEDS: AMOXICILLIN-CLAVUL 875-125MG TABLET GT SCH ×2 (08:55→21:00)
[2023-04-17] MEDS: VALPROIC ACID 250 MG/5 ML LIQUID UDC GT SCH ×2 (08:56→17:23)
[2023-04-17] MEDS: busPIRone 10 MG TABLET GT SCH ×3 (08:56→17:23)
[2023-04-17] MEDS: ACIDOPHILUS/BULGARICUS CHEW TAB GT SCH ×2 (08:57→21:00)
[2023-04-17] MEDS: levETIRAcetam 500 MG/5 ML LIQUID UDC GT SCH ×2 (08:57→21:01)
[2023-04-17] MEDS: REMEDY ESSENTIAL ZINC PASTE 113 GM TP SCH ×2 (08:58→21:03)
[2023-04-17] MEDS: ESCITALOPRAM OXALATE 10 MG TABLET GT SCH (08:58)
[2023-04-17] MEDS: POTASSIUM CHLORIDE 40 MEQ/30 ML LIQUID UDC GT SCH (08:58)
[2023-04-17] MEDS: MIRALAX 17 GM POWD.PACK GT SCH (09:00)
[2023-04-17] MEDS: DOCUSATE SODIUM 100 MG/10 ML LIQUID UDC GT SCH (09:00)
[2023-04-17] MEDS: NEOMY/BACITRA/POLYMYXIN B OINT UD PACKET TP SCH ×2 (09:59→21:03)
[2023-04-17 10:30] VITALS: O2SAT 98
[2023-04-17 10:42] VITALS: TEMP 97.9
[2023-04-17 20:00] VITALS: TEMP 98.7
[2023-04-17] MEDS: OMEGA-3 FATTY ACIDS/FISH OIL CAPSULE GT SCH (21:00)
[2023-04-17] MEDS: MAGNESIUM COMPLEX GT SCH (21:01)
[2023-04-17] MEDS: CRANBERRY 500 MG GT SCH (21:01)
[2023-04-17] MEDS: NUTRISOURCE FIBER 4 GM PACKET GT SCH (21:02)
[2023-04-17] MEDS: PROTEIN SUPPLEMENT (PROSTAT) 30 ML LIQUID GT SCH (21:02)
[2023-04-17] MEDS: RIVAROXABAN 15 MG TABLET GT SCH (21:53)
[2023-04-18 00:15] VITALS: O2SAT 99
[2023-04-18] MEDS: MULTIVIT, IRON, MIN NO. 8, FA TABLET GT SCH (05:10)
[2023-04-18] MEDS: BACLOFEN 10 MG TABLET GT SCH ×5 (05:10→23:12)
[2023-04-18] MEDS: JEVITY 1.2 1000 ML LIQUID GT PRN ×2 (05:10→18:07)
[2023-04-18] MEDS: OMEPRAZOLE 20 MG CAPSULE.DR GT SCH (05:10)
[2023-04-18 07:50] VITALS: TEMP 98.9
[2023-04-18 08:20] VITALS: O2SAT 98
[2023-04-18] MEDS: DOCUSATE SODIUM 100 MG/10 ML LIQUID UDC GT SCH (09:00)
[2023-04-18] MEDS: busPIRone 10 MG TABLET GT SCH ×3 (09:00→17:11)
[2023-04-18] MEDS: levETIRAcetam 500 MG/5 ML LIQUID UDC GT SCH ×2 (09:00→21:00)
[2023-04-18] MEDS: AMOXICILLIN-CLAVUL 875-125MG TABLET GT SCH ×2 (09:00→22:00)
[2023-04-18] MEDS: VALPROIC ACID 250 MG/5 ML LIQUID UDC GT SCH ×2 (09:00→17:11)
[2023-04-18] MEDS: ACIDOPHILUS/BULGARICUS CHEW TAB GT SCH ×2 (09:00→21:00)
[2023-04-18] MEDS: POLYVINYL ALCOHOL OPHT DROPS 15 ML BOTTLE EACHEYE SCH ×3 (09:00→17:11)
[2023-04-18] MEDS: ESCITALOPRAM OXALATE 10 MG TABLET GT SCH (09:01)
[2023-04-18] MEDS: MIRALAX 17 GM POWD.PACK GT SCH (09:01)
[2023-04-18] MEDS: POTASSIUM CHLORIDE 40 MEQ/30 ML LIQUID UDC GT SCH (09:03)
[2023-04-18] MEDS: REMEDY ESSENTIAL ZINC PASTE 113 GM TP SCH ×2 (09:03→21:00)
[2023-04-18] MEDS: NEOMY/BACITRA/POLYMYXIN B OINT UD PACKET TP SCH ×2 (09:03→21:00)
[2023-04-18] MEDS: HYDROGEN PEROXIDE 3% 118 ML BOTTLE TP SCH ×2 (09:24→19:12)
[2023-04-18 20:16] VITALS: TEMP 98.8
[2023-04-18 20:45] VITALS: O2SAT 98
[2023-04-18] MEDS: PROTEIN SUPPLEMENT (PROSTAT) 30 ML LIQUID GT SCH (21:00)
[2023-04-18] MEDS: RIVAROXABAN 15 MG TABLET GT SCH (21:00)
[2023-04-18] MEDS: CRANBERRY 500 MG GT SCH (21:00)
[2023-04-18] MEDS: MAGNESIUM COMPLEX GT SCH (21:00)
[2023-04-18] MEDS: OMEGA-3 FATTY ACIDS/FISH OIL CAPSULE GT SCH (21:00)
[2023-04-18] MEDS: NUTRISOURCE FIBER 4 GM PACKET GT SCH (21:00)
[2023-04-19] MEDS: BACLOFEN 10 MG TABLET GT SCH ×3 (05:19→17:16)
[2023-04-19] MEDS: OMEPRAZOLE 20 MG CAPSULE.DR GT SCH (05:19)
[2023-04-19] MEDS: MULTIVIT, IRON, MIN NO. 8, FA TABLET GT SCH (05:20)
[2023-04-19 07:38] VITALS: TEMP 98.2
[2023-04-19 08:10] VITALS: O2SAT 98
[2023-04-19] MEDS: AMOXICILLIN-CLAVUL 875-125MG TABLET GT SCH ×2 (09:00→21:43)
[2023-04-19] MEDS: ACIDOPHILUS/BULGARICUS CHEW TAB GT SCH ×2 (09:00→21:44)
[2023-04-19] MEDS: POTASSIUM CHLORIDE 40 MEQ/30 ML LIQUID UDC GT SCH (09:00)
[2023-04-19] MEDS: busPIRone 10 MG TABLET GT SCH ×3 (09:00→17:16)
[2023-04-19] MEDS: ESCITALOPRAM OXALATE 10 MG TABLET GT SCH (09:00)
[2023-04-19] MEDS: NEOMY/BACITRA/POLYMYXIN B OINT UD PACKET TP SCH ×2 (09:00→21:55)
[2023-04-19] MEDS: HYDROGEN PEROXIDE 3% 118 ML BOTTLE TP SCH ×2 (09:00→19:04)
[2023-04-19] MEDS: VALPROIC ACID 250 MG/5 ML LIQUID UDC GT SCH ×2 (09:00→17:16)
[2023-04-19] MEDS: MIRALAX 17 GM POWD.PACK GT SCH (09:00)
[2023-04-19] MEDS: REMEDY ESSENTIAL ZINC PASTE 113 GM TP SCH ×2 (09:00→21:54)
[2023-04-19] MEDS: DOCUSATE SODIUM 100 MG/10 ML LIQUID UDC GT SCH (09:00)
[2023-04-19] MEDS: levETIRAcetam 500 MG/5 ML LIQUID UDC GT SCH ×2 (09:00→21:44)
[2023-04-19] MEDS: POLYVINYL ALCOHOL OPHT DROPS 15 ML BOTTLE EACHEYE SCH ×3 (09:00→17:16)
[2023-04-19 15:16] VITALS: O2SAT 98
[2023-04-19] MEDS: JEVITY 1.2 1000 ML LIQUID GT PRN (16:28)
[2023-04-19 20:10] VITALS: O2SAT 98
[2023-04-19 20:17] VITALS: TEMP 98.4
[2023-04-19] MEDS: OMEGA-3 FATTY ACIDS/FISH OIL CAPSULE GT SCH (21:43)
[2023-04-19] MEDS: MAGNESIUM COMPLEX GT SCH (21:44)
[2023-04-19] MEDS: CRANBERRY 500 MG GT SCH (21:44)
[2023-04-19] MEDS: NUTRISOURCE FIBER 4 GM PACKET GT SCH (21:52)
[2023-04-19] MEDS: PROTEIN SUPPLEMENT (PROSTAT) 30 ML LIQUID GT SCH (21:52)
[2023-04-19] MEDS: RIVAROXABAN 15 MG TABLET GT SCH (21:54)
[2023-04-19] MEDS: MELATONIN 3MG TABLET GT PRN (22:15)
[2023-04-20] MEDS: MULTIVIT, IRON, MIN NO. 8, FA TABLET GT SCH (05:56)
[2023-04-20] MEDS: BACLOFEN 10 MG TABLET GT SCH ×5 (05:56→23:37)
[2023-04-20] MEDS: OMEPRAZOLE 20 MG CAPSULE.DR GT SCH (05:56)
[2023-04-20] MEDS: HYDROGEN PEROXIDE 3% 118 ML BOTTLE TP SCH ×2 (07:29→21:25)
[2023-04-20 07:45] VITALS: TEMP 98.3
[2023-04-20] MEDS: MIRALAX 17 GM POWD.PACK GT SCH (09:00)
[2023-04-20] MEDS: DOCUSATE SODIUM 100 MG/10 ML LIQUID UDC GT SCH (09:00)
[2023-04-20] MEDS: POLYVINYL ALCOHOL OPHT DROPS 15 ML BOTTLE EACHEYE SCH ×3 (09:14→17:31)
[2023-04-20] MEDS: busPIRone 10 MG TABLET GT SCH ×3 (09:15→17:31)
[2023-04-20] MEDS: AMOXICILLIN-CLAVUL 875-125MG TABLET GT SCH ×2 (09:15→21:30)
[2023-04-20] MEDS: VALPROIC ACID 250 MG/5 ML LIQUID UDC GT SCH ×2 (09:17→17:31)
[2023-04-20] MEDS: levETIRAcetam 500 MG/5 ML LIQUID UDC GT SCH ×2 (09:17→21:30)
[2023-04-20] MEDS: ACIDOPHILUS/BULGARICUS CHEW TAB GT SCH ×2 (09:17→21:30)
[2023-04-20] MEDS: ESCITALOPRAM OXALATE 10 MG TABLET GT SCH (09:18)
[2023-04-20] MEDS: POTASSIUM CHLORIDE 40 MEQ/30 ML LIQUID UDC GT SCH (09:19)
[2023-04-20] MEDS: NEOMY/BACITRA/POLYMYXIN B OINT UD PACKET TP SCH ×2 (09:21→21:32)
[2023-04-20] MEDS: REMEDY ESSENTIAL ZINC PASTE 113 GM TP SCH ×2 (09:21→21:32)
[2023-04-20] MEDS: COAL TAR TOP SCH (09:21)
[2023-04-20 10:40] VITALS: O2SAT 98
[2023-04-20 20:00] VITALS: TEMP 97.7
[2023-04-20] MEDS: MAGNESIUM COMPLEX GT SCH (21:30)
[2023-04-20] MEDS: CRANBERRY 500 MG GT SCH (21:30)
[2023-04-20] MEDS: OMEGA-3 FATTY ACIDS/FISH OIL CAPSULE GT SCH (21:30)
[2023-04-20 21:31] VITALS: O2SAT 98
[2023-04-20] MEDS: RIVAROXABAN 15 MG TABLET GT SCH (21:31)
[2023-04-20] MEDS: PROTEIN SUPPLEMENT (PROSTAT) 30 ML LIQUID GT SCH (21:31)
[2023-04-20] MEDS: NUTRISOURCE FIBER 4 GM PACKET GT SCH ×2 (21:31→21:40)
[2023-04-20] MEDS: JEVITY 1.2 1000 ML LIQUID GT PRN (23:36)
[2023-04-21] MEDS: OMEPRAZOLE 20 MG CAPSULE.DR GT SCH (06:20)
[2023-04-21] MEDS: BACLOFEN 10 MG TABLET GT SCH ×3 (06:20→17:35)
[2023-04-21] MEDS: MULTIVIT, IRON, MIN NO. 8, FA TABLET GT SCH (06:20)
[2023-04-21 07:42] VITALS: TEMP 97.6
[2023-04-21] MEDS: HYDROGEN PEROXIDE 3% 118 ML BOTTLE TP SCH ×2 (08:21→20:36)
[2023-04-21] MEDS: levETIRAcetam 500 MG/5 ML LIQUID UDC GT SCH ×2 (09:00→21:21)
[2023-04-21] MEDS: busPIRone 10 MG TABLET GT SCH ×3 (09:00→17:35)
[2023-04-21] MEDS: VALPROIC ACID 250 MG/5 ML LIQUID UDC GT SCH ×2 (09:00→17:35)
[2023-04-21] MEDS: ACIDOPHILUS/BULGARICUS CHEW TAB GT SCH ×2 (09:00→21:19)
[2023-04-21] MEDS: POLYVINYL ALCOHOL OPHT DROPS 15 ML BOTTLE EACHEYE SCH ×3 (09:00→17:35)
[2023-04-21] MEDS: NEOMY/BACITRA/POLYMYXIN B OINT UD PACKET TP SCH ×2 (09:00→21:21)
[2023-04-21] MEDS: DOCUSATE SODIUM 100 MG/10 ML LIQUID UDC GT SCH (09:00)
[2023-04-21] MEDS: REMEDY ESSENTIAL ZINC PASTE 113 GM TP SCH ×2 (09:00→21:21)
[2023-04-21] MEDS: ESCITALOPRAM OXALATE 10 MG TABLET GT SCH (09:00)
[2023-04-21] MEDS: MIRALAX 17 GM POWD.PACK GT SCH (09:00)
[2023-04-21] MEDS: AMOXICILLIN-CLAVUL 875-125MG TABLET GT SCH ×2 (09:00→21:19)
[2023-04-21] MEDS: POTASSIUM CHLORIDE 40 MEQ/30 ML LIQUID UDC GT SCH (09:00)
[2023-04-21 16:35] VITALS: O2SAT 98
[2023-04-21 20:00] VITALS: TEMP 96.4; O2SAT 98
[2023-04-21] MEDS: CRANBERRY 500 MG GT SCH (21:19)
[2023-04-21] MEDS: MAGNESIUM COMPLEX GT SCH (21:20)
[2023-04-21] MEDS: PROTEIN SUPPLEMENT (PROSTAT) 30 ML LIQUID GT SCH (21:20)
[2023-04-21] MEDS: OMEGA-3 FATTY ACIDS/FISH OIL CAPSULE GT SCH (21:21)
[2023-04-21] MEDS: RIVAROXABAN 15 MG TABLET GT SCH (22:10)
[2023-04-22] MEDS: BACLOFEN 10 MG TABLET GT SCH ×4 (00:38→17:11)
[2023-04-22] MEDS: OMEPRAZOLE 20 MG CAPSULE.DR GT SCH (06:00)
[2023-04-22] MEDS: JEVITY 1.2 1000 ML LIQUID GT PRN (06:01)
[2023-04-22] MEDS: MULTIVIT, IRON, MIN NO. 8, FA TABLET GT SCH (06:01)
[2023-04-22 08:06] VITALS: TEMP 97.5
[2023-04-22] MEDS: busPIRone 10 MG TABLET GT SCH ×3 (08:24→17:11)
[2023-04-22] MEDS: POLYVINYL ALCOHOL OPHT DROPS 15 ML BOTTLE EACHEYE SCH ×3 (08:24→17:11)
[2023-04-22] MEDS: DOCUSATE SODIUM 100 MG/10 ML LIQUID UDC GT SCH (08:24)
[2023-04-22] MEDS: ACIDOPHILUS/BULGARICUS CHEW TAB GT SCH ×2 (08:25→21:28)
[2023-04-22] MEDS: VALPROIC ACID 250 MG/5 ML LIQUID UDC GT SCH ×2 (08:25→17:11)
[2023-04-22] MEDS: ESCITALOPRAM OXALATE 10 MG TABLET GT SCH (08:26)
[2023-04-22] MEDS: levETIRAcetam 500 MG/5 ML LIQUID UDC GT SCH ×2 (08:26→21:28)
[2023-04-22] MEDS: MIRALAX 17 GM POWD.PACK GT SCH (08:27)
[2023-04-22] MEDS: NEOMY/BACITRA/POLYMYXIN B OINT UD PACKET TP SCH ×2 (08:29→21:29)
[2023-04-22] MEDS: REMEDY ESSENTIAL ZINC PASTE 113 GM TP SCH ×2 (08:29→21:28)
[2023-04-22] MEDS: POTASSIUM CHLORIDE 40 MEQ/30 ML LIQUID UDC GT SCH (08:29)
[2023-04-22 08:55] VITALS: O2SAT 98
[2023-04-22] MEDS: HYDROGEN PEROXIDE 3% 118 ML BOTTLE TP SCH ×2 (09:00→20:00)
[2023-04-22 20:00] VITALS: TEMP 99.5
[2023-04-22 20:25] VITALS: O2SAT 98
[2023-04-22] MEDS: MAGNESIUM COMPLEX GT SCH (21:28)
[2023-04-22] MEDS: CRANBERRY 500 MG GT SCH (21:28)
[2023-04-22] MEDS: OMEGA-3 FATTY ACIDS/FISH OIL CAPSULE GT SCH (21:28)
[2023-04-22] MEDS: RIVAROXABAN 15 MG TABLET GT SCH (21:28)
[2023-04-22] MEDS: NUTRISOURCE FIBER 4 GM PACKET GT SCH (21:28)
[2023-04-22] MEDS: PROTEIN SUPPLEMENT (PROSTAT) 30 ML LIQUID GT SCH (21:28)
[2023-04-22] MEDS: MELATONIN 3MG TABLET GT PRN (21:29)
[2023-04-22] MEDS: ACETAMINOPHEN 650 MG/20 ML UDC- SA PATIENTS-PAIN ONLY GT PRN (21:29)
[2023-04-23] MEDS: BACLOFEN 10 MG TABLET GT SCH ×5 (00:12→23:08)
[2023-04-23] MEDS: MULTIVIT, IRON, MIN NO. 8, FA TABLET GT SCH (05:00)
[2023-04-23] MEDS: OMEPRAZOLE 20 MG CAPSULE.DR GT SCH (05:00)
[2023-04-23 08:00] VITALS: TEMP 97
[2023-04-23] MEDS: HYDROGEN PEROXIDE 3% 118 ML BOTTLE TP SCH ×2 (08:00→19:12)
[2023-04-23] MEDS: DOCUSATE SODIUM 100 MG/10 ML LIQUID UDC GT SCH (08:28)
[2023-04-23] MEDS: POLYVINYL ALCOHOL OPHT DROPS 15 ML BOTTLE EACHEYE SCH ×3 (08:28→17:09)
[2023-04-23] MEDS: busPIRone 10 MG TABLET GT SCH ×3 (08:28→17:09)
[2023-04-23] MEDS: ACIDOPHILUS/BULGARICUS CHEW TAB GT SCH ×2 (08:29→21:00)
[2023-04-23] MEDS: levETIRAcetam 500 MG/5 ML LIQUID UDC GT SCH ×2 (08:29→21:00)
[2023-04-23] MEDS: VALPROIC ACID 250 MG/5 ML LIQUID UDC GT SCH ×2 (08:29→17:09)
[2023-04-23] MEDS: ESCITALOPRAM OXALATE 10 MG TABLET GT SCH (08:30)
[2023-04-23] MEDS: POTASSIUM CHLORIDE 40 MEQ/30 ML LIQUID UDC GT SCH (08:30)
[2023-04-23] MEDS: MIRALAX 17 GM POWD.PACK GT SCH (08:30)
[2023-04-23] MEDS: COAL TAR TOP SCH (08:31)
[2023-04-23] MEDS: REMEDY ESSENTIAL ZINC PASTE 113 GM TP SCH ×2 (08:31→21:01)
[2023-04-23] MEDS: NEOMY/BACITRA/POLYMYXIN B OINT UD PACKET TP SCH ×2 (08:31→21:01)
[2023-04-23 10:47] VITALS: O2SAT 98
[2023-04-23 19:50] VITALS: O2SAT 98
[2023-04-23 20:00] VITALS: TEMP 97.6
[2023-04-23] MEDS: NUTRISOURCE FIBER 4 GM PACKET GT SCH (21:00)
[2023-04-23] MEDS: OMEGA-3 FATTY ACIDS/FISH OIL CAPSULE GT SCH (21:00)
[2023-04-23] MEDS: PROTEIN SUPPLEMENT (PROSTAT) 30 ML LIQUID GT SCH (21:00)
[2023-04-23] MEDS: CRANBERRY 500 MG GT SCH (21:00)
[2023-04-23] MEDS: MAGNESIUM COMPLEX GT SCH (21:00)
[2023-04-23] MEDS: MELATONIN 3MG TABLET GT PRN (21:01)
[2023-04-23] MEDS: RIVAROXABAN 15 MG TABLET GT SCH (21:53)
[2023-04-23] MEDS: ACETAMINOPHEN 650 MG/20 ML UDC- SA PATIENTS-PAIN ONLY GT PRN (22:00)
[2023-04-24] MEDS: MULTIVIT, IRON, MIN NO. 8, FA TABLET GT SCH (05:11)
[2023-04-24] MEDS: OMEPRAZOLE 20 MG CAPSULE.DR GT SCH (05:11)
[2023-04-24] MEDS: BACLOFEN 10 MG TABLET GT SCH ×4 (05:11→23:25)
[2023-04-24] MEDS: HYDROGEN PEROXIDE 3% 118 ML BOTTLE TP SCH ×2 (07:14→23:06)
[2023-04-24 08:00] VITALS: TEMP 97.6
[2023-04-24] MEDS: POLYVINYL ALCOHOL OPHT DROPS 15 ML BOTTLE EACHEYE SCH ×3 (08:33→17:50)
[2023-04-24] MEDS: busPIRone 10 MG TABLET GT SCH ×3 (08:33→17:50)
[2023-04-24] MEDS: DOCUSATE SODIUM 100 MG/10 ML LIQUID UDC GT SCH (08:33)
[2023-04-24] MEDS: VALPROIC ACID 250 MG/5 ML LIQUID UDC GT SCH ×2 (08:34→17:51)
[2023-04-24] MEDS: ACIDOPHILUS/BULGARICUS CHEW TAB GT SCH ×2 (08:34→21:29)
[2023-04-24] MEDS: POTASSIUM CHLORIDE 40 MEQ/30 ML LIQUID UDC GT SCH (08:35)
[2023-04-24] MEDS: ESCITALOPRAM OXALATE 10 MG TABLET GT SCH (08:35)
[2023-04-24] MEDS: MIRALAX 17 GM POWD.PACK GT SCH (08:35)
[2023-04-24] MEDS: levETIRAcetam 500 MG/5 ML LIQUID UDC GT SCH ×2 (08:35→21:30)
[2023-04-24] MEDS: REMEDY ESSENTIAL ZINC PASTE 113 GM TP SCH ×2 (08:36→21:29)
[2023-04-24] MEDS: NEOMY/BACITRA/POLYMYXIN B OINT UD PACKET TP SCH ×2 (08:36→21:30)
[2023-04-24 08:44] VITALS: O2SAT 98
[2023-04-24 10:43] VITALS: O2SAT 98
[2023-04-24 20:00] VITALS: TEMP 97.4
[2023-04-24] MEDS: RIVAROXABAN 15 MG TABLET GT SCH (21:28)
[2023-04-24] MEDS: OMEGA-3 FATTY ACIDS/FISH OIL CAPSULE GT SCH (21:29)
[2023-04-24] MEDS: MAGNESIUM COMPLEX GT SCH (21:30)
[2023-04-24] MEDS: NUTRISOURCE FIBER 4 GM PACKET GT SCH (21:30)
[2023-04-24] MEDS: PROTEIN SUPPLEMENT (PROSTAT) 30 ML LIQUID GT SCH (21:30)
[2023-04-24] MEDS: CRANBERRY 500 MG GT SCH (21:30)
[2023-04-25 03:42] VITALS: O2SAT 97
[2023-04-25] MEDS: OMEPRAZOLE 20 MG CAPSULE.DR GT SCH (05:08)
[2023-04-25] MEDS: MULTIVIT, IRON, MIN NO. 8, FA TABLET GT SCH (05:08)
[2023-04-25] MEDS: BACLOFEN 10 MG TABLET GT SCH ×4 (05:08→23:59)
[2023-04-25] MEDS: HYDROGEN PEROXIDE 3% 118 ML BOTTLE TP SCH ×2 (07:17→21:09)
[2023-04-25 08:08] VITALS: TEMP 97.5
[2023-04-25] MEDS: DOCUSATE SODIUM 100 MG/10 ML LIQUID UDC GT SCH (08:29)
[2023-04-25] MEDS: busPIRone 10 MG TABLET GT SCH ×3 (08:29→17:13)
[2023-04-25] MEDS: POLYVINYL ALCOHOL OPHT DROPS 15 ML BOTTLE EACHEYE SCH ×3 (08:29→17:14)
[2023-04-25] MEDS: VALPROIC ACID 250 MG/5 ML LIQUID UDC GT SCH ×2 (08:30→17:13)
[2023-04-25] MEDS: ACIDOPHILUS/BULGARICUS CHEW TAB GT SCH ×2 (08:31→21:16)
[2023-04-25] MEDS: levETIRAcetam 500 MG/5 ML LIQUID UDC GT SCH ×2 (08:33→21:16)
[2023-04-25] MEDS: ESCITALOPRAM OXALATE 10 MG TABLET GT SCH (08:34)
[2023-04-25] MEDS: MIRALAX 17 GM POWD.PACK GT SCH (08:35)
[2023-04-25] MEDS: POTASSIUM CHLORIDE 40 MEQ/30 ML LIQUID UDC GT SCH (08:35)
[2023-04-25] MEDS: REMEDY ESSENTIAL ZINC PASTE 113 GM TP SCH ×2 (08:36→21:16)
[2023-04-25] MEDS: NEOMY/BACITRA/POLYMYXIN B OINT UD PACKET TP SCH ×2 (08:36→21:16)
[2023-04-25 10:53] VITALS: O2SAT 98
[2023-04-25] MEDS: JEVITY 1.2 1000 ML LIQUID GT PRN (16:16)
[2023-04-25 20:00] VITALS: TEMP 98.8
[2023-04-25] MEDS: RIVAROXABAN 15 MG TABLET GT SCH (21:16)
[2023-04-25] MEDS: MELATONIN 3MG TABLET GT PRN (21:16)
[2023-04-25] MEDS: CRANBERRY 500 MG GT SCH (21:16)
[2023-04-25] MEDS: OMEGA-3 FATTY ACIDS/FISH OIL CAPSULE GT SCH (21:16)
[2023-04-25] MEDS: PROTEIN SUPPLEMENT (PROSTAT) 30 ML LIQUID GT SCH (21:16)
[2023-04-25] MEDS: NUTRISOURCE FIBER 4 GM PACKET GT SCH (21:16)
[2023-04-25] MEDS: MAGNESIUM COMPLEX GT SCH (21:16)
[2023-04-25] MEDS: ACETAMINOPHEN 650 MG/20 ML UDC- SA PATIENTS-PAIN ONLY GT PRN (21:17)
[2023-04-26 04:09] VITALS: O2SAT 96
[2023-04-26] MEDS: BACLOFEN 10 MG TABLET GT SCH ×3 (05:36→17:41)
[2023-04-26] MEDS: OMEPRAZOLE 20 MG CAPSULE.DR GT SCH (05:36)
[2023-04-26] MEDS: MULTIVIT, IRON, MIN NO. 8, FA TABLET GT SCH (05:36)
[2023-04-26 07:47] VITALS: TEMP 98
[2023-04-26] MEDS: HYDROGEN PEROXIDE 3% 118 ML BOTTLE TP SCH ×2 (08:05→19:15)
[2023-04-26] MEDS: VALPROIC ACID 250 MG/5 ML LIQUID UDC GT SCH ×3 (09:07→21:00)
[2023-04-26] MEDS: POLYVINYL ALCOHOL OPHT DROPS 15 ML BOTTLE EACHEYE SCH ×3 (09:07→17:41)
[2023-04-26] MEDS: busPIRone 10 MG TABLET GT SCH ×3 (09:07→17:41)
[2023-04-26] MEDS: DOCUSATE SODIUM 100 MG/10 ML LIQUID UDC GT SCH (09:07)
[2023-04-26] MEDS: NEOMY/BACITRA/POLYMYXIN B OINT UD PACKET TP SCH ×2 (09:08→21:01)
[2023-04-26] MEDS: ESCITALOPRAM OXALATE 10 MG TABLET GT SCH (09:08)
[2023-04-26] MEDS: REMEDY ESSENTIAL ZINC PASTE 113 GM TP SCH ×2 (09:08→21:01)
[2023-04-26] MEDS: MIRALAX 17 GM POWD.PACK GT SCH (09:08)
[2023-04-26] MEDS: POTASSIUM CHLORIDE 40 MEQ/30 ML LIQUID UDC GT SCH (09:08)
[2023-04-26] MEDS: ACIDOPHILUS/BULGARICUS CHEW TAB GT SCH ×2 (09:08→21:00)
[2023-04-26] MEDS: levETIRAcetam 500 MG/5 ML LIQUID UDC GT SCH ×2 (09:08→21:00)
[2023-04-26 14:20] VITALS: O2SAT 98
[2023-04-26 20:00] VITALS: TEMP 97.7
[2023-04-26] MEDS: MAGNESIUM COMPLEX GT SCH (21:00)
[2023-04-26] MEDS: NUTRISOURCE FIBER 4 GM PACKET GT SCH (21:00)
[2023-04-26] MEDS: CRANBERRY 500 MG GT SCH (21:00)
[2023-04-26] MEDS: PROTEIN SUPPLEMENT (PROSTAT) 30 ML LIQUID GT SCH (21:00)
[2023-04-26] MEDS: OMEGA-3 FATTY ACIDS/FISH OIL CAPSULE GT SCH (21:00)
[2023-04-26] MEDS: RIVAROXABAN 15 MG TABLET GT SCH (21:01)
[2023-04-26 21:10] VITALS: O2SAT 97
[2023-04-27] MEDS: BACLOFEN 10 MG TABLET GT SCH ×5 (05:58→23:04)
[2023-04-27] MEDS: MULTIVIT, IRON, MIN NO. 8, FA TABLET GT SCH (05:58)
[2023-04-27] MEDS: OMEPRAZOLE 20 MG CAPSULE.DR GT SCH (05:58)
[2023-04-27] MEDS: HYDROGEN PEROXIDE 3% 118 ML BOTTLE TP SCH ×2 (07:13→19:11)
[2023-04-27 07:38] VITALS: TEMP 97.7
[2023-04-27] MEDS: busPIRone 10 MG TABLET GT SCH ×3 (08:45→17:14)
[2023-04-27] MEDS: POLYVINYL ALCOHOL OPHT DROPS 15 ML BOTTLE EACHEYE SCH ×3 (08:45→17:23)
[2023-04-27] MEDS: VALPROIC ACID 250 MG/5 ML LIQUID UDC GT SCH ×4 (08:46→20:27)
[2023-04-27] MEDS: DOCUSATE SODIUM 100 MG/10 ML LIQUID UDC GT SCH (08:46)
[2023-04-27] MEDS: ACIDOPHILUS/BULGARICUS CHEW TAB GT SCH ×2 (08:47→20:28)
[2023-04-27] MEDS: COAL TAR TOP SCH (08:48)
[2023-04-27] MEDS: MIRALAX 17 GM POWD.PACK GT SCH (08:48)
[2023-04-27] MEDS: ESCITALOPRAM OXALATE 10 MG TABLET GT SCH (08:48)
[2023-04-27] MEDS: levETIRAcetam 500 MG/5 ML LIQUID UDC GT SCH ×2 (08:48→20:29)
[2023-04-27] MEDS: POTASSIUM CHLORIDE 40 MEQ/30 ML LIQUID UDC GT SCH (08:48)
[2023-04-27] MEDS: REMEDY ESSENTIAL ZINC PASTE 113 GM TP SCH ×2 (09:00→20:31)
[2023-04-27] MEDS: NEOMY/BACITRA/POLYMYXIN B OINT UD PACKET TP SCH ×2 (09:00→20:31)
[2023-04-27 10:35] VITALS: O2SAT 98
[2023-04-27] MEDS: ACETAMINOPHEN 650 MG/20 ML UDC- SA PATIENTS-PAIN ONLY GT PRN (12:46)
[2023-04-27 19:50] VITALS: O2SAT 97
[2023-04-27 20:00] VITALS: TEMP 98.4
[2023-04-27] MEDS: OMEGA-3 FATTY ACIDS/FISH OIL CAPSULE GT SCH (20:28)
[2023-04-27] MEDS: CRANBERRY 500 MG GT SCH (20:29)
[2023-04-27] MEDS: MAGNESIUM COMPLEX GT SCH (20:29)
[2023-04-27] MEDS: NUTRISOURCE FIBER 4 GM PACKET GT SCH (20:30)
[2023-04-27] MEDS: PROTEIN SUPPLEMENT (PROSTAT) 30 ML LIQUID GT SCH (20:30)
[2023-04-27] MEDS: RIVAROXABAN 15 MG TABLET GT SCH (20:31)
[2023-04-27] MEDS: MELATONIN 3MG TABLET GT PRN (20:34)
[2023-04-27] MEDS: JEVITY 1.2 1000 ML LIQUID GT PRN (22:27)
[2023-04-28] MEDS: BACLOFEN 10 MG TABLET GT SCH ×3 (05:45→17:15)
[2023-04-28] MEDS: OMEPRAZOLE 20 MG CAPSULE.DR GT SCH (05:45)
[2023-04-28] MEDS: MULTIVIT, IRON, MIN NO. 8, FA TABLET GT SCH (05:45)
[2023-04-28 07:44] VITALS: TEMP 97.5
[2023-04-28] MEDS: busPIRone 10 MG TABLET GT SCH ×3 (08:26→17:14)
[2023-04-28] MEDS: POLYVINYL ALCOHOL OPHT DROPS 15 ML BOTTLE EACHEYE SCH ×3 (08:26→17:14)
[2023-04-28] MEDS: DOCUSATE SODIUM 100 MG/10 ML LIQUID UDC GT SCH (08:27)
[2023-04-28] MEDS: ACIDOPHILUS/BULGARICUS CHEW TAB GT SCH ×2 (08:28→20:24)
[2023-04-28] MEDS: VALPROIC ACID 250 MG/5 ML LIQUID UDC GT SCH ×4 (08:28→20:23)
[2023-04-28] MEDS: MIRALAX 17 GM POWD.PACK GT SCH (08:29)
[2023-04-28] MEDS: levETIRAcetam 500 MG/5 ML LIQUID UDC GT SCH ×2 (08:29→20:24)
[2023-04-28] MEDS: ESCITALOPRAM OXALATE 10 MG TABLET GT SCH (08:29)
[2023-04-28] MEDS: REMEDY ESSENTIAL ZINC PASTE 113 GM TP SCH ×2 (08:30→20:26)
[2023-04-28] MEDS: POTASSIUM CHLORIDE 40 MEQ/30 ML LIQUID UDC GT SCH (08:30)
[2023-04-28] MEDS: HYDROGEN PEROXIDE 3% 118 ML BOTTLE TP SCH ×2 (09:00→19:08)
[2023-04-28] MEDS: NEOMY/BACITRA/POLYMYXIN B OINT UD PACKET TP SCH ×2 (09:00→20:26)
[2023-04-28 20:00] VITALS: TEMP 98
[2023-04-28] MEDS: OMEGA-3 FATTY ACIDS/FISH OIL CAPSULE GT SCH (20:23)
[2023-04-28] MEDS: NUTRISOURCE FIBER 4 GM PACKET GT SCH (20:25)
[2023-04-28] MEDS: MAGNESIUM COMPLEX GT SCH (20:25)
[2023-04-28] MEDS: CRANBERRY 500 MG GT SCH (20:25)
[2023-04-28] MEDS: RIVAROXABAN 15 MG TABLET GT SCH (20:26)
[2023-04-28] MEDS: PROTEIN SUPPLEMENT (PROSTAT) 30 ML LIQUID GT SCH (20:26)
[2023-04-28 20:45] VITALS: O2SAT 97
[2023-04-28] MEDS: LORAZEPAM 0.5 MG TABLET PO PRN (22:02)
[2023-04-29] MEDS: JEVITY 1.2 1000 ML LIQUID GT PRN (01:04)
[2023-04-29] MEDS: BACLOFEN 10 MG TABLET GT SCH ×4 (05:45→17:12)
[2023-04-29] MEDS: OMEPRAZOLE 20 MG CAPSULE.DR GT SCH (05:45)
[2023-04-29] MEDS: MULTIVIT, IRON, MIN NO. 8, FA TABLET GT SCH (05:45)
[2023-04-29] MEDS: HYDROGEN PEROXIDE 3% 118 ML BOTTLE TP SCH ×2 (07:19→19:27)
[2023-04-29 07:22] VITALS: TEMP 98.7
[2023-04-29] MEDS: POLYVINYL ALCOHOL OPHT DROPS 15 ML BOTTLE EACHEYE SCH ×3 (08:38→17:12)
[2023-04-29] MEDS: busPIRone 10 MG TABLET GT SCH ×3 (08:38→17:12)
[2023-04-29] MEDS: VALPROIC ACID 250 MG/5 ML LIQUID UDC GT SCH ×4 (08:39→20:37)
[2023-04-29] MEDS: DOCUSATE SODIUM 100 MG/10 ML LIQUID UDC GT SCH (08:39)
[2023-04-29] MEDS: ESCITALOPRAM OXALATE 10 MG TABLET GT SCH (08:40)
[2023-04-29] MEDS: MIRALAX 17 GM POWD.PACK GT SCH (08:40)
[2023-04-29] MEDS: levETIRAcetam 500 MG/5 ML LIQUID UDC GT SCH ×2 (08:40→20:39)
[2023-04-29] MEDS: POTASSIUM CHLORIDE 40 MEQ/30 ML LIQUID UDC GT SCH (08:40)
[2023-04-29] MEDS: ACIDOPHILUS/BULGARICUS CHEW TAB GT SCH ×2 (08:40→20:38)
[2023-04-29] MEDS: REMEDY ESSENTIAL ZINC PASTE 113 GM TP SCH ×2 (08:40→20:40)
[2023-04-29] MEDS: NEOMY/BACITRA/POLYMYXIN B OINT UD PACKET TP SCH ×2 (09:00→20:41)
[2023-04-29 10:30] VITALS: O2SAT 97
[2023-04-29 19:30] VITALS: O2SAT 97
[2023-04-29 20:00] VITALS: TEMP 96.1
[2023-04-29] MEDS: OMEGA-3 FATTY ACIDS/FISH OIL CAPSULE GT SCH (20:38)
[2023-04-29] MEDS: CRANBERRY 500 MG GT SCH (20:39)
[2023-04-29] MEDS: NUTRISOURCE FIBER 4 GM PACKET GT SCH (20:39)
[2023-04-29] MEDS: MAGNESIUM COMPLEX GT SCH (20:39)
[2023-04-29] MEDS: RIVAROXABAN 15 MG TABLET GT SCH (20:40)
[2023-04-29] MEDS: PROTEIN SUPPLEMENT (PROSTAT) 30 ML LIQUID GT SCH (20:40)
[2023-04-29] MEDS: MELATONIN 3MG TABLET GT PRN (20:47)
[2023-04-29] MEDS: LORAZEPAM 0.5 MG TABLET PO PRN (23:00)
[2023-04-30] MEDS: MULTIVIT, IRON, MIN NO. 8, FA TABLET GT SCH (05:32)
[2023-04-30] MEDS: JEVITY 1.2 1000 ML LIQUID GT PRN (05:32)
[2023-04-30] MEDS: OMEPRAZOLE 20 MG CAPSULE.DR GT SCH (05:32)
[2023-04-30] MEDS: BACLOFEN 10 MG TABLET GT SCH ×4 (05:32→17:24)
[2023-04-30] MEDS: HYDROGEN PEROXIDE 3% 118 ML BOTTLE TP SCH ×2 (07:11→19:13)
[2023-04-30 07:21] VITALS: TEMP 97.5
[2023-04-30] MEDS: POLYVINYL ALCOHOL OPHT DROPS 15 ML BOTTLE EACHEYE SCH ×3 (08:25→17:23)
[2023-04-30] MEDS: busPIRone 10 MG TABLET GT SCH ×3 (08:27→17:23)
[2023-04-30] MEDS: DOCUSATE SODIUM 100 MG/10 ML LIQUID UDC GT SCH (08:30)
[2023-04-30] MEDS: ACIDOPHILUS/BULGARICUS CHEW TAB GT SCH ×2 (08:32→21:37)
[2023-04-30] MEDS: VALPROIC ACID 250 MG/5 ML LIQUID UDC GT SCH ×4 (08:32→21:37)
[2023-04-30] MEDS: ESCITALOPRAM OXALATE 10 MG TABLET GT SCH (08:33)
[2023-04-30] MEDS: levETIRAcetam 500 MG/5 ML LIQUID UDC GT SCH ×2 (08:33→21:37)
[2023-04-30] MEDS: MIRALAX 17 GM POWD.PACK GT SCH (08:34)
[2023-04-30] MEDS: POTASSIUM CHLORIDE 40 MEQ/30 ML LIQUID UDC GT SCH (08:34)
[2023-04-30] MEDS: COAL TAR TOP SCH (08:35)
[2023-04-30] MEDS: REMEDY ESSENTIAL ZINC PASTE 113 GM TP SCH ×2 (08:35→21:37)
[2023-04-30] MEDS: NEOMY/BACITRA/POLYMYXIN B OINT UD PACKET TP SCH ×2 (08:35→21:37)
[2023-04-30 10:01] VITALS: O2SAT 97
[2023-04-30 19:38] VITALS: O2SAT 97
[2023-04-30 20:00] VITALS: TEMP 97.3
[2023-04-30] MEDS: RIVAROXABAN 15 MG TABLET GT SCH (21:00)
[2023-04-30] MEDS: CRANBERRY 500 MG GT SCH (21:37)
[2023-04-30] MEDS: OMEGA-3 FATTY ACIDS/FISH OIL CAPSULE GT SCH (21:37)
[2023-04-30] MEDS: NUTRISOURCE FIBER 4 GM PACKET GT SCH (21:37)
[2023-04-30] MEDS: MAGNESIUM COMPLEX GT SCH (21:37)
[2023-04-30] MEDS: PROTEIN SUPPLEMENT (PROSTAT) 30 ML LIQUID GT SCH (21:37)
[2023-04-30] MEDS: LORAZEPAM 0.5 MG TABLET PO PRN (21:38)
[2023-05-01] MEDS: BACLOFEN 10 MG TABLET GT SCH ×5 (00:10→23:00)
[2023-05-01] MEDS: MULTIVIT, IRON, MIN NO. 8, FA TABLET GT SCH (05:14)
[2023-05-01] MEDS: OMEPRAZOLE 20 MG CAPSULE.DR GT SCH (05:14)
[2023-05-01 07:10] VITALS: O2SAT 98
[2023-05-01 07:56] VITALS: TEMP 97.6
[2023-05-01] MEDS: HYDROGEN PEROXIDE 3% 118 ML BOTTLE TP SCH ×2 (09:00→19:09)
[2023-05-01] MEDS: POLYVINYL ALCOHOL OPHT DROPS 15 ML BOTTLE EACHEYE SCH ×3 (09:07→17:16)
[2023-05-01] MEDS: ESCITALOPRAM OXALATE 10 MG TABLET GT SCH (09:08)
[2023-05-01] MEDS: DOCUSATE SODIUM 100 MG/10 ML LIQUID UDC GT SCH (09:08)
[2023-05-01] MEDS: busPIRone 10 MG TABLET GT SCH ×3 (09:08→17:16)
[2023-05-01] MEDS: VALPROIC ACID 250 MG/5 ML LIQUID UDC GT SCH ×4 (09:08→21:30)
[2023-05-01] MEDS: ACIDOPHILUS/BULGARICUS CHEW TAB GT SCH ×2 (09:08→21:14)
[2023-05-01] MEDS: levETIRAcetam 500 MG/5 ML LIQUID UDC GT SCH ×2 (09:08→21:30)
[2023-05-01] MEDS: REMEDY ESSENTIAL ZINC PASTE 113 GM TP SCH ×2 (09:09→21:16)
[2023-05-01] MEDS: MIRALAX 17 GM POWD.PACK GT SCH (09:09)
[2023-05-01] MEDS: NEOMY/BACITRA/POLYMYXIN B OINT UD PACKET TP SCH ×2 (09:09→21:16)
[2023-05-01] MEDS: POTASSIUM CHLORIDE 40 MEQ/30 ML LIQUID UDC GT SCH (09:09)
[2023-05-01] MEDS: JEVITY 1.2 1000 ML LIQUID GT PRN (11:45)
[2023-05-01 13:48] VITALS: O2SAT 98; O2SAT 99
[2023-05-01 20:00] VITALS: TEMP 97.7
[2023-05-01 20:45] VITALS: O2SAT 97
[2023-05-01] MEDS: RIVAROXABAN 15 MG TABLET GT SCH (21:00)
[2023-05-01] MEDS: CRANBERRY 500 MG GT SCH (21:15)
[2023-05-01] MEDS: NUTRISOURCE FIBER 4 GM PACKET GT SCH (21:16)
[2023-05-01] MEDS: PROTEIN SUPPLEMENT (PROSTAT) 30 ML LIQUID GT SCH (21:16)
[2023-05-01] MEDS: MAGNESIUM COMPLEX GT SCH (21:16)
[2023-05-01] MEDS: LORAZEPAM 0.5 MG TABLET PO PRN (21:29)
[2023-05-01] MEDS: OMEGA-3 FATTY ACIDS/FISH OIL CAPSULE GT SCH (21:30)
[2023-05-02] MEDS: MULTIVIT, IRON, MIN NO. 8, FA TABLET GT SCH (05:43)
[2023-05-02] MEDS: OMEPRAZOLE 20 MG CAPSULE.DR GT SCH (05:43)
[2023-05-02] MEDS: BACLOFEN 10 MG TABLET GT SCH ×3 (05:43→17:04)
[2023-05-02 08:06] VITALS: TEMP 97.6
[2023-05-02] MEDS: HYDROGEN PEROXIDE 3% 118 ML BOTTLE TP SCH ×2 (08:15→19:12)
[2023-05-02 08:16] VITALS: O2SAT 98
[2023-05-02] MEDS: POLYVINYL ALCOHOL OPHT DROPS 15 ML BOTTLE EACHEYE SCH ×3 (08:52→17:04)
[2023-05-02] MEDS: DOCUSATE SODIUM 100 MG/10 ML LIQUID UDC GT SCH (08:53)
[2023-05-02] MEDS: busPIRone 10 MG TABLET GT SCH ×3 (08:53→17:04)
[2023-05-02] MEDS: ACIDOPHILUS/BULGARICUS CHEW TAB GT SCH ×2 (08:54→20:15)
[2023-05-02] MEDS: levETIRAcetam 500 MG/5 ML LIQUID UDC GT SCH ×2 (08:54→20:15)
[2023-05-02] MEDS: ESCITALOPRAM OXALATE 10 MG TABLET GT SCH (08:55)
[2023-05-02] MEDS: REMEDY ESSENTIAL ZINC PASTE 113 GM TP SCH ×2 (08:56→20:18)
[2023-05-02] MEDS: MIRALAX 17 GM POWD.PACK GT SCH (08:56)
[2023-05-02] MEDS: POTASSIUM CHLORIDE 40 MEQ/30 ML LIQUID UDC GT SCH (08:56)
[2023-05-02] MEDS: NEOMY/BACITRA/POLYMYXIN B OINT UD PACKET TP SCH ×2 (08:57→20:18)
[2023-05-02] MEDS: VALPROIC ACID 250 MG/5 ML LIQUID UDC GT SCH ×4 (09:50→20:15)
[2023-05-02] MEDS: JEVITY 1.2 1000 ML LIQUID GT PRN (10:18)
[2023-05-02 15:11] VITALS: O2SAT 98
[2023-05-02] MEDS: OMEGA-3 FATTY ACIDS/FISH OIL CAPSULE GT SCH (20:15)
[2023-05-02] MEDS: MAGNESIUM COMPLEX GT SCH (20:15)
[2023-05-02] MEDS: PROTEIN SUPPLEMENT (PROSTAT) 30 ML LIQUID GT SCH (20:15)
[2023-05-02] MEDS: NUTRISOURCE FIBER 4 GM PACKET GT SCH (20:15)
[2023-05-02] MEDS: CRANBERRY 500 MG GT SCH (20:15)
[2023-05-02] MEDS: RIVAROXABAN 15 MG TABLET GT SCH (20:18)
[2023-05-02 20:35] VITALS: TEMP 98.5
[2023-05-02 20:37] VITALS: TEMP 98.5
[2023-05-02 20:45] VITALS: O2SAT 97
[2023-05-03] MEDS: LORAZEPAM 0.5 MG TABLET PO PRN ×2 (00:07→21:25)
[2023-05-03] MEDS: BACLOFEN 10 MG TABLET GT SCH ×4 (00:07→17:06)
[2023-05-03] MEDS: OMEPRAZOLE 20 MG CAPSULE.DR GT SCH (05:16)
[2023-05-03] MEDS: MULTIVIT, IRON, MIN NO. 8, FA TABLET GT SCH (05:16)
[2023-05-03 07:38] VITALS: TEMP 97.3
[2023-05-03 07:44] LABS: BASOPHILS % (AUTO) 0.6 % (0.0-2.0); EOSINOPHILS # (AUTO) 0.3 K/uL (0.0-0.7); EOSINOPHILS % (AUTO) 3.6 % (0.0-7.0); HEMATOCRIT 40.4 % (31.2-41.9); HEMOGLOBIN 13.7 g/dL (10.9-14.3); LYMPHOCYTES % (AUTO) 41.1 % (20.5-51.5); MEAN CORPUSCULAR HEMOGLOBIN 31.6 uug (24.7-32.8); MEAN CORPUSCULAR HGB CONC 34 g/dL (32.3-35.6); MONOCYTES # (AUTO) 0.7 K/uL (0.1-1.30); MONOCYTES % (AUTO) 9.5 % (0.0-11.0); NEUTROPHILS # (AUTO) 3.3 K/uL (1.8-8.9); NEUTROPHILS % (AUTO) 45.2 % (38.5-71.5); PLATELET COUNT (AUTO) 212 K/uL (179-408); RED BLOOD CELL COUNT(AUTO) 4.35 MIL/uL (3.63-4.92); RED CELL DISTRIBUTION WIDTH 13.7 % (12.3-17.7); WHITE BLOOD COUNT (AUTO) 7.2 K/uL (3.8-11.8)
[2023-05-03 07:58] LABS: ALANINE AMINOTRANSFERASE 35 U/L (14-59); ALBUMIN 2.8 g/dL (3.4-5.0); ALKALINE PHOSPHATASE 94 U/L (50-136); ASPARTATE AMINOTRANSFERASE 34 U/L (15-37); BILIRUBIN,TOTAL 0.3 mg/dL (0.2-1.0); CALCIUM 9.2 mg/dL (8.5-10.1); CARBON DIOXIDE 33 mmol/L (21-32); CHLORIDE 101 mmol/L (98-107); CREATININE 0.5 mg/dL (0.6-1.3); GLUCOSE 95 mg/dL (74-106); POTASSIUM 3.8 mmol/L (3.5-5.1); SODIUM SERUM 138 mmol/L (136-145); UREA NITROGEN, BLOOD 15 mg/dL (7-18); VALPROIC ACID 79 ug/mL (50-100)
[2023-05-03 08:10] LABS: DIFFERENTIAL COMMENT 1
[2023-05-03] MEDS: busPIRone 10 MG TABLET GT SCH ×3 (08:45→17:05)
[2023-05-03] MEDS: POLYVINYL ALCOHOL OPHT DROPS 15 ML BOTTLE EACHEYE SCH ×3 (08:45→17:05)
[2023-05-03] MEDS: DOCUSATE SODIUM 100 MG/10 ML LIQUID UDC GT SCH (08:45)
[2023-05-03] MEDS: ACIDOPHILUS/BULGARICUS CHEW TAB GT SCH ×2 (08:46→21:18)
[2023-05-03] MEDS: levETIRAcetam 500 MG/5 ML LIQUID UDC GT SCH ×2 (08:46→21:18)
[2023-05-03] MEDS: VALPROIC ACID 250 MG/5 ML LIQUID UDC GT SCH ×4 (08:46→21:18)
[2023-05-03] MEDS: NEOMY/BACITRA/POLYMYXIN B OINT UD PACKET TP SCH ×2 (08:47→21:24)
[2023-05-03] MEDS: REMEDY ESSENTIAL ZINC PASTE 113 GM TP SCH ×2 (08:47→21:24)
[2023-05-03] MEDS: MIRALAX 17 GM POWD.PACK GT SCH (08:47)
[2023-05-03] MEDS: POTASSIUM CHLORIDE 40 MEQ/30 ML LIQUID UDC GT SCH (08:47)
[2023-05-03] MEDS: ESCITALOPRAM OXALATE 10 MG TABLET GT SCH (08:47)
[2023-05-03] MEDS: HYDROGEN PEROXIDE 3% 118 ML BOTTLE TP SCH ×2 (09:00→19:19)
[2023-05-03] MEDS: JEVITY 1.2 1000 ML LIQUID GT PRN (13:22)
[2023-05-03 16:28] VITALS: O2SAT 98
[2023-05-03 19:55] VITALS: O2SAT 97
[2023-05-03 20:08] VITALS: TEMP 98
[2023-05-03] MEDS: CRANBERRY 500 MG GT SCH (21:18)
[2023-05-03] MEDS: MAGNESIUM COMPLEX GT SCH (21:18)
[2023-05-03] MEDS: OMEGA-3 FATTY ACIDS/FISH OIL CAPSULE GT SCH (21:18)
[2023-05-03] MEDS: NUTRISOURCE FIBER 4 GM PACKET GT SCH (21:18)
[2023-05-03] MEDS: PROTEIN SUPPLEMENT (PROSTAT) 30 ML LIQUID GT SCH (21:18)
[2023-05-03] MEDS: RIVAROXABAN 15 MG TABLET GT SCH (21:33)
[2023-05-04] MEDS: BACLOFEN 10 MG TABLET GT SCH ×4 (00:36→17:01)
[2023-05-04] MEDS: ACETAMINOPHEN 650 MG/20 ML UDC- SA PATIENTS-PAIN ONLY GT PRN (00:38)
[2023-05-04] MEDS: MULTIVIT, IRON, MIN NO. 8, FA TABLET GT SCH (05:28)
[2023-05-04] MEDS: OMEPRAZOLE 20 MG CAPSULE.DR GT SCH (05:28)
[2023-05-04 07:46] VITALS: TEMP 97.9
[2023-05-04 08:05] VITALS: O2SAT 98
[2023-05-04] MEDS: busPIRone 10 MG TABLET GT SCH ×3 (08:54→17:02)
[2023-05-04] MEDS: POLYVINYL ALCOHOL OPHT DROPS 15 ML BOTTLE EACHEYE SCH ×3 (08:54→16:59)
[2023-05-04] MEDS: DOCUSATE SODIUM 100 MG/10 ML LIQUID UDC GT SCH (08:55)
[2023-05-04] MEDS: VALPROIC ACID 250 MG/5 ML LIQUID UDC GT SCH ×4 (08:55→21:00)
[2023-05-04] MEDS: ACIDOPHILUS/BULGARICUS CHEW TAB GT SCH ×2 (08:56→21:00)
[2023-05-04] MEDS: levETIRAcetam 500 MG/5 ML LIQUID UDC GT SCH ×2 (08:57→21:00)
[2023-05-04] MEDS: ESCITALOPRAM OXALATE 10 MG TABLET GT SCH (08:57)
[2023-05-04] MEDS: POTASSIUM CHLORIDE 40 MEQ/30 ML LIQUID UDC GT SCH (08:58)
[2023-05-04] MEDS: MIRALAX 17 GM POWD.PACK GT SCH (08:58)
[2023-05-04] MEDS: COAL TAR TOP SCH (08:59)
[2023-05-04] MEDS: REMEDY ESSENTIAL ZINC PASTE 113 GM TP SCH ×2 (09:00→21:00)
[2023-05-04] MEDS: HYDROGEN PEROXIDE 3% 118 ML BOTTLE TP SCH ×2 (09:00→22:27)
[2023-05-04] MEDS: NEOMY/BACITRA/POLYMYXIN B OINT UD PACKET TP SCH ×2 (09:00→21:00)
[2023-05-04 20:44] VITALS: TEMP 98
[2023-05-04] MEDS: RIVAROXABAN 15 MG TABLET GT SCH (21:00)
[2023-05-04] MEDS: CRANBERRY 500 MG GT SCH (21:00)
[2023-05-04] MEDS: OMEGA-3 FATTY ACIDS/FISH OIL CAPSULE GT SCH (21:00)
[2023-05-04] MEDS: MAGNESIUM COMPLEX GT SCH (21:00)
[2023-05-04] MEDS: NUTRISOURCE FIBER 4 GM PACKET GT SCH (21:00)
[2023-05-04] MEDS: PROTEIN SUPPLEMENT (PROSTAT) 30 ML LIQUID GT SCH (21:00)
[2023-05-04] MEDS: JEVITY 1.2 1000 ML LIQUID GT PRN (22:38)
[2023-05-05] MEDS: BACLOFEN 10 MG TABLET GT SCH ×4 (00:09→17:01)
[2023-05-05 03:10] VITALS: O2SAT 99
[2023-05-05] MEDS: MULTIVIT, IRON, MIN NO. 8, FA TABLET GT SCH (05:19)
[2023-05-05] MEDS: OMEPRAZOLE 20 MG CAPSULE.DR GT SCH (05:19)
[2023-05-05 08:00] VITALS: TEMP 97.6
[2023-05-05] MEDS: HYDROGEN PEROXIDE 3% 118 ML BOTTLE TP SCH ×2 (08:07→19:15)
[2023-05-05] MEDS: busPIRone 10 MG TABLET GT SCH ×3 (09:43→17:01)
[2023-05-05] MEDS: DOCUSATE SODIUM 100 MG/10 ML LIQUID UDC GT SCH (09:43)
[2023-05-05] MEDS: POLYVINYL ALCOHOL OPHT DROPS 15 ML BOTTLE EACHEYE SCH ×3 (09:43→17:01)
[2023-05-05] MEDS: ACIDOPHILUS/BULGARICUS CHEW TAB GT SCH ×2 (09:44→21:00)
[2023-05-05] MEDS: VALPROIC ACID 250 MG/5 ML LIQUID UDC GT SCH ×4 (09:44→21:00)
[2023-05-05] MEDS: levETIRAcetam 500 MG/5 ML LIQUID UDC GT SCH ×2 (09:45→21:00)
[2023-05-05] MEDS: ESCITALOPRAM OXALATE 10 MG TABLET GT SCH (09:46)
[2023-05-05] MEDS: REMEDY ESSENTIAL ZINC PASTE 113 GM TP SCH ×2 (09:46→21:00)
[2023-05-05] MEDS: NEOMY/BACITRA/POLYMYXIN B OINT UD PACKET TP SCH ×2 (09:46→21:00)
[2023-05-05] MEDS: MIRALAX 17 GM POWD.PACK GT SCH (09:46)
[2023-05-05] MEDS: POTASSIUM CHLORIDE 40 MEQ/30 ML LIQUID UDC GT SCH (09:46)
[2023-05-05 14:21] VITALS: O2SAT 98
[2023-05-05] MEDS: JEVITY 1.2 1000 ML LIQUID GT PRN (17:07)
[2023-05-05 20:00] VITALS: TEMP 98
[2023-05-05 20:35] VITALS: O2SAT 99
[2023-05-05] MEDS: NUTRISOURCE FIBER 4 GM PACKET GT SCH (21:00)
[2023-05-05] MEDS: MAGNESIUM COMPLEX GT SCH (21:00)
[2023-05-05] MEDS: CRANBERRY 500 MG GT SCH (21:00)
[2023-05-05] MEDS: OMEGA-3 FATTY ACIDS/FISH OIL CAPSULE GT SCH (21:00)
[2023-05-05] MEDS: RIVAROXABAN 15 MG TABLET GT SCH (21:00)
[2023-05-05] MEDS: PROTEIN SUPPLEMENT (PROSTAT) 30 ML LIQUID GT SCH (21:00)
[2023-05-05] MEDS: LORAZEPAM 0.5 MG TABLET PO PRN (22:56)
[2023-05-06] MEDS: BACLOFEN 10 MG TABLET GT SCH ×4 (00:37→17:32)
[2023-05-06] MEDS: OMEPRAZOLE 20 MG CAPSULE.DR GT SCH (05:33)
[2023-05-06] MEDS: MULTIVIT, IRON, MIN NO. 8, FA TABLET GT SCH (05:33)
[2023-05-06 08:00] VITALS: TEMP 97.8
[2023-05-06 08:10] VITALS: O2SAT 98
[2023-05-06] MEDS: HYDROGEN PEROXIDE 3% 118 ML BOTTLE TP SCH ×2 (09:00→19:34)
[2023-05-06] MEDS: VALPROIC ACID 250 MG/5 ML LIQUID UDC GT SCH ×4 (09:30→21:16)
[2023-05-06] MEDS: MIRALAX 17 GM POWD.PACK GT SCH (09:30)
[2023-05-06] MEDS: REMEDY ESSENTIAL ZINC PASTE 113 GM TP SCH ×2 (09:30→21:17)
[2023-05-06] MEDS: levETIRAcetam 500 MG/5 ML LIQUID UDC GT SCH ×2 (09:30→21:16)
[2023-05-06] MEDS: ACIDOPHILUS/BULGARICUS CHEW TAB GT SCH ×2 (09:30→21:16)
[2023-05-06] MEDS: NEOMY/BACITRA/POLYMYXIN B OINT UD PACKET TP SCH ×2 (09:30→21:17)
[2023-05-06] MEDS: ESCITALOPRAM OXALATE 10 MG TABLET GT SCH (09:30)
[2023-05-06] MEDS: POTASSIUM CHLORIDE 40 MEQ/30 ML LIQUID UDC GT SCH (09:30)
[2023-05-06] MEDS: POLYVINYL ALCOHOL OPHT DROPS 15 ML BOTTLE EACHEYE SCH ×3 (09:30→17:32)
[2023-05-06] MEDS: busPIRone 10 MG TABLET GT SCH ×3 (09:30→17:32)
[2023-05-06] MEDS: DOCUSATE SODIUM 100 MG/10 ML LIQUID UDC GT SCH (09:30)
[2023-05-06] MEDS ORDERED: INFLUENZA VACCINE 2023-2024 0.5 ML DISP.SYRIN IM ONE (13:00)
[2023-05-06 14:00] VITALS: O2SAT 98
[2023-05-06 19:44] VITALS: TEMP 97.7
[2023-05-06 19:55] VITALS: O2SAT 99
[2023-05-06] MEDS: MAGNESIUM COMPLEX GT SCH (21:16)
[2023-05-06] MEDS: PROTEIN SUPPLEMENT (PROSTAT) 30 ML LIQUID GT SCH (21:16)
[2023-05-06] MEDS: NUTRISOURCE FIBER 4 GM PACKET GT SCH (21:16)
[2023-05-06] MEDS: OMEGA-3 FATTY ACIDS/FISH OIL CAPSULE GT SCH (21:16)
[2023-05-06] MEDS: CRANBERRY 500 MG GT SCH (21:16)
[2023-05-06] MEDS: RIVAROXABAN 15 MG TABLET GT SCH (21:17)
[2023-05-07] MEDS: BACLOFEN 10 MG TABLET GT SCH ×4 (00:08→17:10)
[2023-05-07 04:00] VITALS: TEMP 97
[2023-05-07] MEDS: MULTIVIT, IRON, MIN NO. 8, FA TABLET GT SCH (06:02)
[2023-05-07] MEDS: OMEPRAZOLE 20 MG CAPSULE.DR GT SCH (06:02)
[2023-05-07 07:39] VITALS: TEMP 97.1
[2023-05-07] MEDS: HYDROGEN PEROXIDE 3% 118 ML BOTTLE TP SCH ×2 (08:54→19:18)
[2023-05-07] MEDS: busPIRone 10 MG TABLET GT SCH ×3 (09:02→16:53)
[2023-05-07] MEDS: POLYVINYL ALCOHOL OPHT DROPS 15 ML BOTTLE EACHEYE SCH ×3 (09:02→16:52)
[2023-05-07] MEDS: DOCUSATE SODIUM 100 MG/10 ML LIQUID UDC GT SCH (09:03)
[2023-05-07] MEDS: VALPROIC ACID 250 MG/5 ML LIQUID UDC GT SCH ×4 (09:03→20:54)
[2023-05-07] MEDS: MIRALAX 17 GM POWD.PACK GT SCH (09:04)
[2023-05-07] MEDS: ESCITALOPRAM OXALATE 10 MG TABLET GT SCH (09:04)
[2023-05-07] MEDS: ACIDOPHILUS/BULGARICUS CHEW TAB GT SCH ×2 (09:04→20:55)
[2023-05-07] MEDS: levETIRAcetam 500 MG/5 ML LIQUID UDC GT SCH ×2 (09:04→20:55)
[2023-05-07] MEDS: POTASSIUM CHLORIDE 40 MEQ/30 ML LIQUID UDC GT SCH (09:06)
[2023-05-07] MEDS: NEOMY/BACITRA/POLYMYXIN B OINT UD PACKET TP SCH (09:07)
[2023-05-07] MEDS: COAL TAR TOP SCH (09:07)
[2023-05-07] MEDS: REMEDY ESSENTIAL ZINC PASTE 113 GM TP SCH ×2 (09:07→20:56)
[2023-05-07 10:40] VITALS: O2SAT 98
[2023-05-07] MEDS: JEVITY 1.2 1000 ML LIQUID GT PRN (18:28)
[2023-05-07 20:00] VITALS: TEMP 98.2
[2023-05-07 20:25] VITALS: O2SAT 99
[2023-05-07] MEDS: OMEGA-3 FATTY ACIDS/FISH OIL CAPSULE GT SCH (20:54)
[2023-05-07] MEDS: MAGNESIUM COMPLEX GT SCH (20:55)
[2023-05-07] MEDS: CRANBERRY 500 MG GT SCH (20:55)
[2023-05-07] MEDS: PROTEIN SUPPLEMENT (PROSTAT) 30 ML LIQUID GT SCH (20:56)
[2023-05-07] MEDS: NUTRISOURCE FIBER 4 GM PACKET GT SCH (20:56)
[2023-05-07] MEDS: RIVAROXABAN 15 MG TABLET GT SCH (20:58)
[2023-05-07] MEDS: LORAZEPAM 0.5 MG TABLET PO PRN (23:00)
[2023-05-08] MEDS: BACLOFEN 10 MG TABLET GT SCH ×4 (05:36→17:05)
[2023-05-08] MEDS: OMEPRAZOLE 20 MG CAPSULE.DR GT SCH (05:36)
[2023-05-08] MEDS: MULTIVIT, IRON, MIN NO. 8, FA TABLET GT SCH (05:37)
[2023-05-08 07:39] VITALS: TEMP 98.2
[2023-05-08] MEDS: busPIRone 10 MG TABLET GT SCH ×3 (08:43→16:39)
[2023-05-08] MEDS: POLYVINYL ALCOHOL OPHT DROPS 15 ML BOTTLE EACHEYE SCH ×3 (08:43→16:37)
[2023-05-08] MEDS: DOCUSATE SODIUM 100 MG/10 ML LIQUID UDC GT SCH (08:43)
[2023-05-08] MEDS: VALPROIC ACID 250 MG/5 ML LIQUID UDC GT SCH ×4 (08:44→21:00)
[2023-05-08] MEDS: MIRALAX 17 GM POWD.PACK GT SCH (08:45)
[2023-05-08] MEDS: ESCITALOPRAM OXALATE 10 MG TABLET GT SCH (08:45)
[2023-05-08] MEDS: levETIRAcetam 500 MG/5 ML LIQUID UDC GT SCH ×2 (08:45→21:00)
[2023-05-08] MEDS: ACIDOPHILUS/BULGARICUS CHEW TAB GT SCH ×2 (08:45→21:00)
[2023-05-08] MEDS: POTASSIUM CHLORIDE 40 MEQ/30 ML LIQUID UDC GT SCH (08:46)
[2023-05-08] MEDS: REMEDY ESSENTIAL ZINC PASTE 113 GM TP SCH ×2 (08:46→21:01)
[2023-05-08] MEDS: HYDROGEN PEROXIDE 3% 118 ML BOTTLE TP SCH ×2 (09:00→21:00)
[2023-05-08 18:05] VITALS: O2SAT 98
[2023-05-08] MEDS: JEVITY 1.2 1000 ML LIQUID GT PRN (18:10)
[2023-05-08] MEDS: ACETAMINOPHEN 650 MG/20 ML UDC- SA PATIENTS-PAIN ONLY GT PRN (19:38)
[2023-05-08 20:00] VITALS: TEMP 98.1
[2023-05-08] MEDS: RIVAROXABAN 15 MG TABLET GT SCH (20:58)
[2023-05-08] MEDS: CRANBERRY 500 MG GT SCH (21:00)
[2023-05-08] MEDS: OMEGA-3 FATTY ACIDS/FISH OIL CAPSULE GT SCH (21:00)
[2023-05-08] MEDS: NUTRISOURCE FIBER 4 GM PACKET GT SCH (21:00)
[2023-05-08] MEDS: MAGNESIUM COMPLEX GT SCH (21:00)
[2023-05-08] MEDS: PROTEIN SUPPLEMENT (PROSTAT) 30 ML LIQUID GT SCH (21:00)
[2023-05-08 21:23] VITALS: O2SAT 99
[2023-05-09] MEDS: BACLOFEN 10 MG TABLET GT SCH ×4 (00:14→17:20)
[2023-05-09] MEDS: LORAZEPAM 0.5 MG TABLET PO PRN (00:24)
[2023-05-09] MEDS: MULTIVIT, IRON, MIN NO. 8, FA TABLET GT SCH (06:18)
[2023-05-09] MEDS: OMEPRAZOLE 20 MG CAPSULE.DR GT SCH (06:18)
[2023-05-09] MEDS: HYDROGEN PEROXIDE 3% 118 ML BOTTLE TP SCH ×2 (07:22→19:24)
[2023-05-09 07:58] VITALS: TEMP 97.8
[2023-05-09] MEDS: busPIRone 10 MG TABLET GT SCH ×3 (08:52→17:20)
[2023-05-09] MEDS: POLYVINYL ALCOHOL OPHT DROPS 15 ML BOTTLE EACHEYE SCH ×3 (08:52→17:20)
[2023-05-09] MEDS: DOCUSATE SODIUM 100 MG/10 ML LIQUID UDC GT SCH (08:52)
[2023-05-09] MEDS: VALPROIC ACID 250 MG/5 ML LIQUID UDC GT SCH ×4 (08:53→21:11)
[2023-05-09] MEDS: levETIRAcetam 500 MG/5 ML LIQUID UDC GT SCH ×2 (08:53→21:12)
[2023-05-09] MEDS: ACIDOPHILUS/BULGARICUS CHEW TAB GT SCH ×2 (08:53→21:12)
[2023-05-09] MEDS: ESCITALOPRAM OXALATE 10 MG TABLET GT SCH (08:54)
[2023-05-09] MEDS: MIRALAX 17 GM POWD.PACK GT SCH (08:54)
[2023-05-09] MEDS: REMEDY ESSENTIAL ZINC PASTE 113 GM TP SCH ×2 (08:54→21:14)
[2023-05-09] MEDS: POTASSIUM CHLORIDE 40 MEQ/30 ML LIQUID UDC GT SCH (08:54)
[2023-05-09 09:17] VITALS: O2SAT 98
[2023-05-09 20:00] VITALS: TEMP 98.3
[2023-05-09 20:25] VITALS: O2SAT 99
[2023-05-09] MEDS: RIVAROXABAN 15 MG TABLET GT SCH (21:14)
[2023-05-09] MEDS: PROTEIN SUPPLEMENT (PROSTAT) 30 ML LIQUID GT SCH (21:14)
[2023-05-09] MEDS: NUTRISOURCE FIBER 4 GM PACKET GT SCH (21:15)
[2023-05-09] MEDS: CRANBERRY 500 MG GT SCH (21:17)
[2023-05-09] MEDS: MAGNESIUM COMPLEX GT SCH (21:17)
[2023-05-09] MEDS: OMEGA-3 FATTY ACIDS/FISH OIL CAPSULE GT SCH (21:21)
[2023-05-10] MEDS: OMEPRAZOLE 20 MG CAPSULE.DR GT SCH (05:06)
[2023-05-10] MEDS: MULTIVIT, IRON, MIN NO. 8, FA TABLET GT SCH (05:06)
[2023-05-10] MEDS: BACLOFEN 10 MG TABLET GT SCH ×4 (05:06→17:21)
[2023-05-10 07:41] VITALS: TEMP 97.6
[2023-05-10] MEDS: HYDROGEN PEROXIDE 3% 118 ML BOTTLE TP SCH ×2 (08:58→19:34)
[2023-05-10] MEDS: REMEDY ESSENTIAL ZINC PASTE 113 GM TP SCH ×2 (09:00→20:42)
[2023-05-10] MEDS: ESCITALOPRAM OXALATE 10 MG TABLET GT SCH (09:52)
[2023-05-10] MEDS: busPIRone 10 MG TABLET GT SCH ×3 (09:52→17:21)
[2023-05-10] MEDS: POLYVINYL ALCOHOL OPHT DROPS 15 ML BOTTLE EACHEYE SCH ×3 (09:52→17:21)
[2023-05-10] MEDS: VALPROIC ACID 250 MG/5 ML LIQUID UDC GT SCH ×4 (09:55→20:42)
[2023-05-10] MEDS: levETIRAcetam 500 MG/5 ML LIQUID UDC GT SCH ×2 (09:55→20:42)
[2023-05-10] MEDS: ACIDOPHILUS/BULGARICUS CHEW TAB GT SCH ×2 (09:55→20:42)
[2023-05-10] MEDS: DOCUSATE SODIUM 100 MG/10 ML LIQUID UDC GT SCH (09:57)
[2023-05-10] MEDS: MIRALAX 17 GM POWD.PACK GT SCH (09:57)
[2023-05-10] MEDS: POTASSIUM CHLORIDE 40 MEQ/30 ML LIQUID UDC GT SCH (09:58)
[2023-05-10 14:10] VITALS: O2SAT 98
[2023-05-10 19:55] VITALS: O2SAT 99
[2023-05-10 20:00] VITALS: TEMP 98.7
[2023-05-10] MEDS: PROTEIN SUPPLEMENT (PROSTAT) 30 ML LIQUID GT SCH (20:42)
[2023-05-10] MEDS: OMEGA-3 FATTY ACIDS/FISH OIL CAPSULE GT SCH (20:42)
[2023-05-10] MEDS: MAGNESIUM COMPLEX GT SCH (20:42)
[2023-05-10] MEDS: RIVAROXABAN 15 MG TABLET GT SCH (20:42)
[2023-05-10] MEDS: NUTRISOURCE FIBER 4 GM PACKET GT SCH (20:42)
[2023-05-10] MEDS: CRANBERRY 500 MG GT SCH (20:42)
[2023-05-11] MEDS: BACLOFEN 10 MG TABLET GT SCH ×4 (00:43→17:23)
[2023-05-11] MEDS: LORAZEPAM 0.5 MG TABLET PO PRN (01:56)
[2023-05-11] MEDS: MULTIVIT, IRON, MIN NO. 8, FA TABLET GT SCH (05:17)
[2023-05-11] MEDS: OMEPRAZOLE 20 MG CAPSULE.DR GT SCH (05:17)
[2023-05-11 07:30] VITALS: TEMP 97.8
[2023-05-11 08:20] VITALS: O2SAT 98
[2023-05-11] MEDS: POLYVINYL ALCOHOL OPHT DROPS 15 ML BOTTLE EACHEYE SCH ×3 (08:31→17:20)
[2023-05-11] MEDS: busPIRone 10 MG TABLET GT SCH ×3 (08:32→17:20)
[2023-05-11] MEDS: DOCUSATE SODIUM 100 MG/10 ML LIQUID UDC GT SCH (08:32)
[2023-05-11] MEDS: VALPROIC ACID 250 MG/5 ML LIQUID UDC GT SCH ×4 (08:33→21:08)
[2023-05-11] MEDS: ACIDOPHILUS/BULGARICUS CHEW TAB GT SCH ×2 (08:34→21:08)
[2023-05-11] MEDS: levETIRAcetam 500 MG/5 ML LIQUID UDC GT SCH ×2 (08:34→21:08)
[2023-05-11] MEDS: ESCITALOPRAM OXALATE 10 MG TABLET GT SCH (08:35)
[2023-05-11] MEDS: MIRALAX 17 GM POWD.PACK GT SCH (08:36)
[2023-05-11] MEDS: POTASSIUM CHLORIDE 40 MEQ/30 ML LIQUID UDC GT SCH (08:36)
[2023-05-11] MEDS: COAL TAR TOP SCH (08:37)
[2023-05-11] MEDS: REMEDY ESSENTIAL ZINC PASTE 113 GM TP SCH ×2 (08:37→21:09)
[2023-05-11] MEDS: HYDROGEN PEROXIDE 3% 118 ML BOTTLE TP SCH ×2 (09:00→19:21)
[2023-05-11 15:00] VITALS: O2SAT 98
[2023-05-11 19:45] VITALS: O2SAT 99
[2023-05-11 20:00] VITALS: TEMP 97.8
[2023-05-11] MEDS: OMEGA-3 FATTY ACIDS/FISH OIL CAPSULE GT SCH (21:08)
[2023-05-11] MEDS: PROTEIN SUPPLEMENT (PROSTAT) 30 ML LIQUID GT SCH (21:09)
[2023-05-11] MEDS: CRANBERRY 500 MG GT SCH (21:09)
[2023-05-11] MEDS: RIVAROXABAN 15 MG TABLET GT SCH (21:09)
[2023-05-11] MEDS: NUTRISOURCE FIBER 4 GM PACKET GT SCH (21:09)
[2023-05-11] MEDS: MAGNESIUM COMPLEX GT SCH (21:09)
[2023-05-12] MEDS: BACLOFEN 10 MG TABLET GT SCH ×5 (00:11→23:00)
[2023-05-12] MEDS: JEVITY 1.2 1000 ML LIQUID GT PRN (00:11)
[2023-05-12] MEDS: LORAZEPAM 0.5 MG TABLET PO PRN ×2 (00:17→23:00)
[2023-05-12] MEDS: OMEPRAZOLE 20 MG CAPSULE.DR GT SCH (05:13)
[2023-05-12] MEDS: MULTIVIT, IRON, MIN NO. 8, FA TABLET GT SCH (05:13)
[2023-05-12 07:36] VITALS: TEMP 97.6
[2023-05-12 09:00] VITALS: O2SAT 98
[2023-05-12] MEDS: HYDROGEN PEROXIDE 3% 118 ML BOTTLE TP SCH ×2 (09:00→21:00)
[2023-05-12] MEDS: DOCUSATE SODIUM 100 MG/10 ML LIQUID UDC GT SCH (09:42)
[2023-05-12] MEDS: busPIRone 10 MG TABLET GT SCH ×3 (09:42→17:00)
[2023-05-12] MEDS: POLYVINYL ALCOHOL OPHT DROPS 15 ML BOTTLE EACHEYE SCH ×3 (09:42→17:00)
[2023-05-12] MEDS: ESCITALOPRAM OXALATE 10 MG TABLET GT SCH (09:43)
[2023-05-12] MEDS: VALPROIC ACID 250 MG/5 ML LIQUID UDC GT SCH ×4 (09:43→20:21)
[2023-05-12] MEDS: levETIRAcetam 500 MG/5 ML LIQUID UDC GT SCH ×2 (09:43→20:21)
[2023-05-12] MEDS: MIRALAX 17 GM POWD.PACK GT SCH (09:43)
[2023-05-12] MEDS: REMEDY ESSENTIAL ZINC PASTE 113 GM TP SCH ×2 (09:43→21:00)
[2023-05-12] MEDS: ACIDOPHILUS/BULGARICUS CHEW TAB GT SCH ×2 (09:43→20:21)
[2023-05-12] MEDS: POTASSIUM CHLORIDE 40 MEQ/30 ML LIQUID UDC GT SCH (09:43)
[2023-05-12 20:00] VITALS: TEMP 96.3
[2023-05-12] MEDS: CRANBERRY 500 MG GT SCH (20:21)
[2023-05-12] MEDS: PROTEIN SUPPLEMENT (PROSTAT) 30 ML LIQUID GT SCH (20:21)
[2023-05-12] MEDS: MAGNESIUM COMPLEX GT SCH (20:21)
[2023-05-12] MEDS: OMEGA-3 FATTY ACIDS/FISH OIL CAPSULE GT SCH (20:21)
[2023-05-12] MEDS: NUTRISOURCE FIBER 4 GM PACKET GT SCH (20:21)
[2023-05-12] MEDS: RIVAROXABAN 15 MG TABLET GT SCH (20:24)
[2023-05-13 00:35] VITALS: O2SAT 98
[2023-05-13] MEDS: BACLOFEN 10 MG TABLET GT SCH ×4 (05:56→23:29)
[2023-05-13] MEDS: MULTIVIT, IRON, MIN NO. 8, FA TABLET GT SCH (05:56)
[2023-05-13] MEDS: OMEPRAZOLE 20 MG CAPSULE.DR GT SCH (05:56)
[2023-05-13 07:10] VITALS: O2SAT 98
[2023-05-13 08:03] VITALS: TEMP 98.5
[2023-05-13] MEDS: DOCUSATE SODIUM 100 MG/10 ML LIQUID UDC GT SCH (08:21)
[2023-05-13] MEDS: busPIRone 10 MG TABLET GT SCH ×3 (08:21→17:09)
[2023-05-13] MEDS: POLYVINYL ALCOHOL OPHT DROPS 15 ML BOTTLE EACHEYE SCH ×3 (08:21→17:09)
[2023-05-13] MEDS: VALPROIC ACID 250 MG/5 ML LIQUID UDC GT SCH ×4 (08:22→21:12)
[2023-05-13] MEDS: ACIDOPHILUS/BULGARICUS CHEW TAB GT SCH ×2 (08:23→21:13)
[2023-05-13] MEDS: levETIRAcetam 500 MG/5 ML LIQUID UDC GT SCH ×2 (08:24→21:14)
[2023-05-13] MEDS: MIRALAX 17 GM POWD.PACK GT SCH (08:24)
[2023-05-13] MEDS: ESCITALOPRAM OXALATE 10 MG TABLET GT SCH (08:24)
[2023-05-13] MEDS: POTASSIUM CHLORIDE 40 MEQ/30 ML LIQUID UDC GT SCH (08:27)
[2023-05-13] MEDS: HYDROGEN PEROXIDE 3% 118 ML BOTTLE TP SCH ×2 (09:00→19:11)
[2023-05-13] MEDS: REMEDY ESSENTIAL ZINC PASTE 113 GM TP SCH ×2 (09:00→21:16)
[2023-05-13] MEDS: ACETAMINOPHEN 650 MG/20 ML UDC- SA PATIENTS-PAIN ONLY GT PRN (15:14)
[2023-05-13 15:46] VITALS: O2SAT 98
[2023-05-13 19:53] VITALS: TEMP 98
[2023-05-13] MEDS: OMEGA-3 FATTY ACIDS/FISH OIL CAPSULE GT SCH (21:13)
[2023-05-13] MEDS: NUTRISOURCE FIBER 4 GM PACKET GT SCH (21:15)
[2023-05-13] MEDS: PROTEIN SUPPLEMENT (PROSTAT) 30 ML LIQUID GT SCH (21:15)
[2023-05-13] MEDS: MAGNESIUM COMPLEX GT SCH (21:15)
[2023-05-13] MEDS: CRANBERRY 500 MG GT SCH (21:15)
[2023-05-13] MEDS: RIVAROXABAN 15 MG TABLET GT SCH (21:16)
[2023-05-13] MEDS: MELATONIN 3MG TABLET GT PRN (21:17)
[2023-05-13] MEDS: LORAZEPAM 0.5 MG TABLET PO PRN (23:30)
[2023-05-14 00:24] VITALS: O2SAT 98
[2023-05-14] MEDS: JEVITY 1.2 1000 ML LIQUID GT PRN (01:11)
[2023-05-14] MEDS: BACLOFEN 10 MG TABLET GT SCH ×3 (05:17→17:08)
[2023-05-14] MEDS: OMEPRAZOLE 20 MG CAPSULE.DR GT SCH (05:18)
[2023-05-14] MEDS: MULTIVIT, IRON, MIN NO. 8, FA TABLET GT SCH (05:18)
[2023-05-14] MEDS: HYDROGEN PEROXIDE 3% 118 ML BOTTLE TP SCH ×2 (07:27→19:13)
[2023-05-14 07:55] VITALS: TEMP 97.8
[2023-05-14] MEDS: POLYVINYL ALCOHOL OPHT DROPS 15 ML BOTTLE EACHEYE SCH ×3 (08:20→17:07)
[2023-05-14] MEDS: busPIRone 10 MG TABLET GT SCH ×3 (08:21→17:07)
[2023-05-14] MEDS: DOCUSATE SODIUM 100 MG/10 ML LIQUID UDC GT SCH (08:21)
[2023-05-14] MEDS: VALPROIC ACID 250 MG/5 ML LIQUID UDC GT SCH ×4 (08:21→20:42)
[2023-05-14] MEDS: ACIDOPHILUS/BULGARICUS CHEW TAB GT SCH ×2 (08:22→20:42)
[2023-05-14] MEDS: levETIRAcetam 500 MG/5 ML LIQUID UDC GT SCH ×2 (08:22→20:42)
[2023-05-14] MEDS: MIRALAX 17 GM POWD.PACK GT SCH (08:23)
[2023-05-14] MEDS: ESCITALOPRAM OXALATE 10 MG TABLET GT SCH (08:23)
[2023-05-14] MEDS: POTASSIUM CHLORIDE 40 MEQ/30 ML LIQUID UDC GT SCH (08:23)
[2023-05-14] MEDS: COAL TAR TOP SCH (08:23)
[2023-05-14] MEDS: REMEDY ESSENTIAL ZINC PASTE 113 GM TP SCH ×2 (08:24→20:43)
[2023-05-14 10:37] VITALS: O2SAT 98
[2023-05-14] MEDS: ACETAMINOPHEN 650 MG/20 ML UDC- SA PATIENTS-PAIN ONLY GT PRN (17:10)
[2023-05-14 20:00] VITALS: TEMP 98.2; TEMP 99.4
[2023-05-14] MEDS: CRANBERRY 500 MG GT SCH (20:42)
[2023-05-14] MEDS: OMEGA-3 FATTY ACIDS/FISH OIL CAPSULE GT SCH (20:42)
[2023-05-14] MEDS: MAGNESIUM COMPLEX GT SCH (20:42)
[2023-05-14] MEDS: NUTRISOURCE FIBER 4 GM PACKET GT SCH (20:42)
[2023-05-14] MEDS: PROTEIN SUPPLEMENT (PROSTAT) 30 ML LIQUID GT SCH (20:42)
[2023-05-14] MEDS: RIVAROXABAN 15 MG TABLET GT SCH (20:43)
[2023-05-14] MEDS: MELATONIN 3MG TABLET GT PRN (20:44)
[2023-05-14 20:45] VITALS: O2SAT 98
[2023-05-14] MEDS: LORAZEPAM 0.5 MG TABLET PO PRN (21:23)
[2023-05-15] MEDS: BACLOFEN 10 MG TABLET GT SCH ×5 (05:18→23:07)
[2023-05-15] MEDS: MULTIVIT, IRON, MIN NO. 8, FA TABLET GT SCH (05:18)
[2023-05-15] MEDS: OMEPRAZOLE 20 MG CAPSULE.DR GT SCH (05:18)
[2023-05-15] MEDS: HYDROGEN PEROXIDE 3% 118 ML BOTTLE TP SCH ×2 (07:33→19:14)
[2023-05-15] MEDS: DOCUSATE SODIUM 100 MG/10 ML LIQUID UDC GT SCH (09:10)
[2023-05-15] MEDS: POTASSIUM CHLORIDE 40 MEQ/30 ML LIQUID UDC GT SCH (09:10)
[2023-05-15] MEDS: levETIRAcetam 500 MG/5 ML LIQUID UDC GT SCH ×2 (09:10→21:08)
[2023-05-15] MEDS: MIRALAX 17 GM POWD.PACK GT SCH (09:10)
[2023-05-15] MEDS: busPIRone 10 MG TABLET GT SCH ×3 (09:10→17:11)
[2023-05-15] MEDS: ACIDOPHILUS/BULGARICUS CHEW TAB GT SCH ×2 (09:10→21:08)
[2023-05-15] MEDS: ESCITALOPRAM OXALATE 10 MG TABLET GT SCH (09:10)
[2023-05-15] MEDS: VALPROIC ACID 250 MG/5 ML LIQUID UDC GT SCH ×4 (09:10→21:08)
[2023-05-15] MEDS: POLYVINYL ALCOHOL OPHT DROPS 15 ML BOTTLE EACHEYE SCH ×3 (09:10→17:11)
[2023-05-15] MEDS: REMEDY ESSENTIAL ZINC PASTE 113 GM TP SCH ×2 (09:10→21:08)
[2023-05-15 13:34] VITALS: O2SAT 98
[2023-05-15 20:00] VITALS: TEMP 98.8
[2023-05-15 20:35] VITALS: O2SAT 98
[2023-05-15] MEDS: RIVAROXABAN 15 MG TABLET GT SCH (21:00)
[2023-05-15] MEDS: LORAZEPAM 0.5 MG TABLET PO PRN (21:00)
[2023-05-15] MEDS: PROTEIN SUPPLEMENT (PROSTAT) 30 ML LIQUID GT SCH (21:08)
[2023-05-15] MEDS: OMEGA-3 FATTY ACIDS/FISH OIL CAPSULE GT SCH (21:08)
[2023-05-15] MEDS: MAGNESIUM COMPLEX GT SCH (21:08)
[2023-05-15] MEDS: NUTRISOURCE FIBER 4 GM PACKET GT SCH (21:08)
[2023-05-15] MEDS: CRANBERRY 500 MG GT SCH (21:08)
[2023-05-16] MEDS: BACLOFEN 10 MG TABLET GT SCH ×4 (05:30→23:04)
[2023-05-16] MEDS: MULTIVIT, IRON, MIN NO. 8, FA TABLET GT SCH (05:30)
[2023-05-16] MEDS: OMEPRAZOLE 20 MG CAPSULE.DR GT SCH (05:30)
[2023-05-16 07:45] VITALS: TEMP 97.5
[2023-05-16] MEDS: HYDROGEN PEROXIDE 3% 118 ML BOTTLE TP SCH ×2 (07:51→20:17)
[2023-05-16 08:29] VITALS: O2SAT 98
[2023-05-16] MEDS: POLYVINYL ALCOHOL OPHT DROPS 15 ML BOTTLE EACHEYE SCH ×3 (08:56→17:42)
[2023-05-16] MEDS: busPIRone 10 MG TABLET GT SCH ×3 (08:56→17:42)
[2023-05-16] MEDS: DOCUSATE SODIUM 100 MG/10 ML LIQUID UDC GT SCH (08:58)
[2023-05-16] MEDS: VALPROIC ACID 250 MG/5 ML LIQUID UDC GT SCH ×4 (08:59→20:50)
[2023-05-16] MEDS: levETIRAcetam 500 MG/5 ML LIQUID UDC GT SCH ×2 (09:00→20:54)
[2023-05-16] MEDS: ACIDOPHILUS/BULGARICUS CHEW TAB GT SCH ×2 (09:00→20:52)
[2023-05-16] MEDS: POTASSIUM CHLORIDE 40 MEQ/30 ML LIQUID UDC GT SCH (09:01)
[2023-05-16] MEDS: MIRALAX 17 GM POWD.PACK GT SCH (09:01)
[2023-05-16] MEDS: ESCITALOPRAM OXALATE 10 MG TABLET GT SCH (09:01)
[2023-05-16] MEDS: REMEDY ESSENTIAL ZINC PASTE 113 GM TP SCH ×2 (09:02→21:02)
[2023-05-16] MEDS: ACETAMINOPHEN 650 MG/20 ML UDC- SA PATIENTS-PAIN ONLY GT PRN (11:35)
[2023-05-16] MEDS: JEVITY 1.2 1000 ML LIQUID GT PRN (15:07)
[2023-05-16 16:29] VITALS: O2SAT 98
[2023-05-16 20:00] VITALS: TEMP 98.8
[2023-05-16 20:50] VITALS: O2SAT 98
[2023-05-16] MEDS: OMEGA-3 FATTY ACIDS/FISH OIL CAPSULE GT SCH (20:52)
[2023-05-16] MEDS: CRANBERRY 500 MG GT SCH (20:56)
[2023-05-16] MEDS: MAGNESIUM COMPLEX GT SCH (20:56)
[2023-05-16] MEDS: NUTRISOURCE FIBER 4 GM PACKET GT SCH (20:56)
[2023-05-16] MEDS: PROTEIN SUPPLEMENT (PROSTAT) 30 ML LIQUID GT SCH (20:56)
[2023-05-16] MEDS: RIVAROXABAN 15 MG TABLET GT SCH (21:01)
[2023-05-16] MEDS: MELATONIN 3MG TABLET GT PRN (21:04)
[2023-05-16] MEDS: LORAZEPAM 0.5 MG TABLET PO PRN (23:04)
[2023-05-17] MEDS: BACLOFEN 10 MG TABLET GT SCH ×3 (05:18→18:43)
[2023-05-17] MEDS: MULTIVIT, IRON, MIN NO. 8, FA TABLET GT SCH (05:18)
[2023-05-17] MEDS: OMEPRAZOLE 20 MG CAPSULE.DR GT SCH (05:18)
[2023-05-17 07:27] VITALS: O2SAT 99
[2023-05-17 07:51] VITALS: TEMP 98.4
[2023-05-17] MEDS: POLYVINYL ALCOHOL OPHT DROPS 15 ML BOTTLE EACHEYE SCH ×3 (09:00→17:09)
[2023-05-17] MEDS: ACIDOPHILUS/BULGARICUS CHEW TAB GT SCH ×2 (09:00→21:21)
[2023-05-17] MEDS: levETIRAcetam 500 MG/5 ML LIQUID UDC GT SCH ×2 (09:00→21:21)
[2023-05-17] MEDS: REMEDY ESSENTIAL ZINC PASTE 113 GM TP SCH ×2 (09:00→21:22)
[2023-05-17] MEDS: VALPROIC ACID 250 MG/5 ML LIQUID UDC GT SCH ×4 (09:00→21:21)
[2023-05-17] MEDS: POTASSIUM CHLORIDE 40 MEQ/30 ML LIQUID UDC GT SCH (09:00)
[2023-05-17] MEDS: DOCUSATE SODIUM 100 MG/10 ML LIQUID UDC GT SCH (09:00)
[2023-05-17] MEDS: busPIRone 10 MG TABLET GT SCH ×3 (09:00→17:09)
[2023-05-17] MEDS: MIRALAX 17 GM POWD.PACK GT SCH (09:00)
[2023-05-17] MEDS: ESCITALOPRAM OXALATE 10 MG TABLET GT SCH (09:00)
[2023-05-17] MEDS: HYDROGEN PEROXIDE 3% 118 ML BOTTLE TP SCH ×2 (09:31→21:22)
[2023-05-17] MEDS: ACETAMINOPHEN 650 MG/20 ML UDC- SA PATIENTS-PAIN ONLY GT PRN (13:52)
[2023-05-17 20:02] VITALS: O2SAT 99
[2023-05-17 20:34] VITALS: TEMP 96.5
[2023-05-17] MEDS: OMEGA-3 FATTY ACIDS/FISH OIL CAPSULE GT SCH (21:21)
[2023-05-17] MEDS: MAGNESIUM COMPLEX GT SCH (21:21)
[2023-05-17] MEDS: PROTEIN SUPPLEMENT (PROSTAT) 30 ML LIQUID GT SCH (21:21)
[2023-05-17] MEDS: NUTRISOURCE FIBER 4 GM PACKET GT SCH (21:21)
[2023-05-17] MEDS: CRANBERRY 500 MG GT SCH (21:21)
[2023-05-17] MEDS: RIVAROXABAN 15 MG TABLET GT SCH (21:22)
[2023-05-18 00:19] VITALS: TEMP 97.6
[2023-05-18] MEDS: BACLOFEN 10 MG TABLET GT SCH ×5 (00:29→23:04)
[2023-05-18] MEDS: MELATONIN 3MG TABLET GT PRN (00:30)
[2023-05-18] MEDS: MULTIVIT, IRON, MIN NO. 8, FA TABLET GT SCH (05:43)
[2023-05-18] MEDS: OMEPRAZOLE 20 MG CAPSULE.DR GT SCH (05:43)
[2023-05-18 07:52] VITALS: TEMP 97.2
[2023-05-18] MEDS: POLYVINYL ALCOHOL OPHT DROPS 15 ML BOTTLE EACHEYE SCH ×3 (08:34→17:03)
[2023-05-18] MEDS: ESCITALOPRAM OXALATE 10 MG TABLET GT SCH (08:34)
[2023-05-18] MEDS: DOCUSATE SODIUM 100 MG/10 ML LIQUID UDC GT SCH (08:34)
[2023-05-18] MEDS: busPIRone 10 MG TABLET GT SCH ×3 (08:34→17:03)
[2023-05-18] MEDS: ACIDOPHILUS/BULGARICUS CHEW TAB GT SCH ×2 (08:35→20:43)
[2023-05-18] MEDS: VALPROIC ACID 250 MG/5 ML LIQUID UDC GT SCH ×4 (08:36→20:43)
[2023-05-18] MEDS: levETIRAcetam 500 MG/5 ML LIQUID UDC GT SCH ×2 (08:37→20:43)
[2023-05-18] MEDS: POTASSIUM CHLORIDE 40 MEQ/30 ML LIQUID UDC GT SCH (08:37)
[2023-05-18] MEDS: REMEDY ESSENTIAL ZINC PASTE 113 GM TP SCH ×2 (08:38→20:44)
[2023-05-18] MEDS: COAL TAR TOP SCH (08:38)
[2023-05-18] MEDS: HYDROGEN PEROXIDE 3% 118 ML BOTTLE TP SCH ×2 (08:38→22:29)
[2023-05-18] MEDS: MIRALAX 17 GM POWD.PACK GT SCH (08:38)
[2023-05-18 10:00] VITALS: O2SAT 98
[2023-05-18] MEDS: JEVITY 1.2 1000 ML LIQUID GT PRN (17:22)
[2023-05-18 19:47] VITALS: TEMP 97.4
[2023-05-18 19:55] VITALS: O2SAT 98
[2023-05-18] MEDS: MAGNESIUM COMPLEX GT SCH (20:43)
[2023-05-18] MEDS: CRANBERRY 500 MG GT SCH (20:43)
[2023-05-18] MEDS: NUTRISOURCE FIBER 4 GM PACKET GT SCH (20:43)
[2023-05-18] MEDS: PROTEIN SUPPLEMENT (PROSTAT) 30 ML LIQUID GT SCH (20:43)
[2023-05-18] MEDS: OMEGA-3 FATTY ACIDS/FISH OIL CAPSULE GT SCH (20:43)
[2023-05-18] MEDS: RIVAROXABAN 15 MG TABLET GT SCH (20:44)
[2023-05-18] MEDS: LORAZEPAM 0.5 MG TABLET PO PRN (23:05)
[2023-05-19] MEDS: OMEPRAZOLE 20 MG CAPSULE.DR GT SCH (05:30)
[2023-05-19] MEDS: BACLOFEN 10 MG TABLET GT SCH ×3 (05:30→17:17)
[2023-05-19] MEDS: MULTIVIT, IRON, MIN NO. 8, FA TABLET GT SCH (05:30)
[2023-05-19 08:00] VITALS: TEMP 98.3
[2023-05-19] MEDS: REMEDY ESSENTIAL ZINC PASTE 113 GM TP SCH ×2 (09:00→21:16)
[2023-05-19] MEDS: MIRALAX 17 GM POWD.PACK GT SCH (09:00)
[2023-05-19] MEDS: HYDROGEN PEROXIDE 3% 118 ML BOTTLE TP SCH ×2 (09:00→21:12)
[2023-05-19] MEDS: levETIRAcetam 500 MG/5 ML LIQUID UDC GT SCH ×2 (09:00→21:14)
[2023-05-19] MEDS: ACIDOPHILUS/BULGARICUS CHEW TAB GT SCH ×2 (09:00→21:17)
[2023-05-19] MEDS: POTASSIUM CHLORIDE 40 MEQ/30 ML LIQUID UDC GT SCH (09:00)
[2023-05-19] MEDS: POLYVINYL ALCOHOL OPHT DROPS 15 ML BOTTLE EACHEYE SCH ×3 (09:00→17:17)
[2023-05-19] MEDS: VALPROIC ACID 250 MG/5 ML LIQUID UDC GT SCH ×4 (09:00→21:03)
[2023-05-19] MEDS: ESCITALOPRAM OXALATE 10 MG TABLET GT SCH (09:00)
[2023-05-19] MEDS: DOCUSATE SODIUM 100 MG/10 ML LIQUID UDC GT SCH (09:00)
[2023-05-19] MEDS: busPIRone 10 MG TABLET GT SCH ×3 (09:00→17:17)
[2023-05-19 19:54] VITALS: O2SAT 98
[2023-05-19 20:15] VITALS: BP 95/51; TEMP 97.9; O2SAT 99
[2023-05-19] MEDS: RIVAROXABAN 15 MG TABLET GT SCH (21:00)
[2023-05-19] MEDS: OMEGA-3 FATTY ACIDS/FISH OIL CAPSULE GT SCH (21:07)
[2023-05-19] MEDS: CRANBERRY 500 MG GT SCH (21:15)
[2023-05-19] MEDS: PROTEIN SUPPLEMENT (PROSTAT) 30 ML LIQUID GT SCH (21:18)
[2023-05-19] MEDS: MAGNESIUM COMPLEX GT SCH (21:18)
[2023-05-19] MEDS: NUTRISOURCE FIBER 4 GM PACKET GT SCH (21:18)
[2023-05-19] MEDS: MELATONIN 3MG TABLET GT PRN (22:38)
[2023-05-20] MEDS: BACLOFEN 10 MG TABLET GT SCH ×4 (00:12→17:03)
[2023-05-20] MEDS: ACETAMINOPHEN 650 MG/20 ML UDC- SA PATIENTS-PAIN ONLY GT PRN (01:40)
[2023-05-20] MEDS: JEVITY 1.2 1000 ML LIQUID GT PRN (03:37)
[2023-05-20] MEDS: MULTIVIT, IRON, MIN NO. 8, FA TABLET GT SCH (06:21)
[2023-05-20] MEDS: OMEPRAZOLE 20 MG CAPSULE.DR GT SCH (06:21)
[2023-05-20] MEDS: HYDROGEN PEROXIDE 3% 118 ML BOTTLE TP SCH ×2 (07:31→21:08)
[2023-05-20] MEDS: POLYVINYL ALCOHOL OPHT DROPS 15 ML BOTTLE EACHEYE SCH ×3 (09:07→16:53)
[2023-05-20] MEDS: busPIRone 10 MG TABLET GT SCH ×3 (09:09→16:54)
[2023-05-20] MEDS: DOCUSATE SODIUM 100 MG/10 ML LIQUID UDC GT SCH (09:11)
[2023-05-20] MEDS: VALPROIC ACID 250 MG/5 ML LIQUID UDC GT SCH ×4 (09:23→20:21)
[2023-05-20] MEDS: ACIDOPHILUS/BULGARICUS CHEW TAB GT SCH ×2 (09:24→20:32)
[2023-05-20] MEDS: levETIRAcetam 500 MG/5 ML LIQUID UDC GT SCH ×2 (09:24→20:33)
[2023-05-20] MEDS: MIRALAX 17 GM POWD.PACK GT SCH (09:25)
[2023-05-20] MEDS: ESCITALOPRAM OXALATE 10 MG TABLET GT SCH (09:25)
[2023-05-20] MEDS: REMEDY ESSENTIAL ZINC PASTE 113 GM TP SCH ×2 (09:26→20:41)
[2023-05-20] MEDS: POTASSIUM CHLORIDE 40 MEQ/30 ML LIQUID UDC GT SCH (09:26)
[2023-05-20 11:59] VITALS: O2SAT 98
[2023-05-20 20:00] VITALS: TEMP 98
[2023-05-20 20:13] VITALS: O2SAT 98
[2023-05-20] MEDS: OMEGA-3 FATTY ACIDS/FISH OIL CAPSULE GT SCH (20:22)
[2023-05-20] MEDS: CRANBERRY 500 MG GT SCH (20:33)
[2023-05-20] MEDS: MAGNESIUM COMPLEX GT SCH (20:36)
[2023-05-20] MEDS: NUTRISOURCE FIBER 4 GM PACKET GT SCH (20:37)
[2023-05-20] MEDS: PROTEIN SUPPLEMENT (PROSTAT) 30 ML LIQUID GT SCH (20:39)
[2023-05-20] MEDS: RIVAROXABAN 15 MG TABLET GT SCH (20:40)
[2023-05-20] MEDS: MELATONIN 3MG TABLET GT PRN (21:08)
[2023-05-21] MEDS: BACLOFEN 10 MG TABLET GT SCH ×4 (00:45→17:06)
[2023-05-21] MEDS: LORAZEPAM 0.5 MG TABLET PO PRN (01:40)
[2023-05-21] MEDS: MULTIVIT, IRON, MIN NO. 8, FA TABLET GT SCH (06:23)
[2023-05-21] MEDS: OMEPRAZOLE 20 MG CAPSULE.DR GT SCH (06:23)
[2023-05-21 08:15] VITALS: TEMP 98.2
[2023-05-21] MEDS: ACIDOPHILUS/BULGARICUS CHEW TAB GT SCH ×2 (09:00→21:06)
[2023-05-21] MEDS: DOCUSATE SODIUM 100 MG/10 ML LIQUID UDC GT SCH (09:00)
[2023-05-21] MEDS: HYDROGEN PEROXIDE 3% 118 ML BOTTLE TP SCH ×2 (09:00→19:30)
[2023-05-21] MEDS: levETIRAcetam 500 MG/5 ML LIQUID UDC GT SCH ×2 (09:00→21:06)
[2023-05-21] MEDS: VALPROIC ACID 250 MG/5 ML LIQUID UDC GT SCH ×4 (09:00→21:06)
[2023-05-21] MEDS: ESCITALOPRAM OXALATE 10 MG TABLET GT SCH (09:00)
[2023-05-21] MEDS: COAL TAR TOP SCH (09:00)
[2023-05-21] MEDS: POTASSIUM CHLORIDE 40 MEQ/30 ML LIQUID UDC GT SCH (09:00)
[2023-05-21] MEDS: MIRALAX 17 GM POWD.PACK GT SCH (09:00)
[2023-05-21] MEDS: REMEDY ESSENTIAL ZINC PASTE 113 GM TP SCH ×2 (09:00→21:07)
[2023-05-21] MEDS: POLYVINYL ALCOHOL OPHT DROPS 15 ML BOTTLE EACHEYE SCH ×3 (09:00→17:04)
[2023-05-21] MEDS: busPIRone 10 MG TABLET GT SCH ×3 (09:00→17:05)
[2023-05-21 20:00] VITALS: TEMP 98.3
[2023-05-21 20:28] VITALS: O2SAT 98
[2023-05-21] MEDS: RIVAROXABAN 15 MG TABLET GT SCH (21:00)
[2023-05-21] MEDS: NUTRISOURCE FIBER 4 GM PACKET GT SCH (21:06)
[2023-05-21] MEDS: CRANBERRY 500 MG GT SCH (21:06)
[2023-05-21] MEDS: PROTEIN SUPPLEMENT (PROSTAT) 30 ML LIQUID GT SCH (21:06)
[2023-05-21] MEDS: OMEGA-3 FATTY ACIDS/FISH OIL CAPSULE GT SCH (21:06)
[2023-05-21] MEDS: MAGNESIUM COMPLEX GT SCH (21:06)
[2023-05-22] MEDS: BACLOFEN 10 MG TABLET GT SCH ×5 (00:44→23:47)
[2023-05-22 01:56] VITALS: O2SAT 98
[2023-05-22] MEDS: OMEPRAZOLE 20 MG CAPSULE.DR GT SCH (05:52)
[2023-05-22] MEDS: MULTIVIT, IRON, MIN NO. 8, FA TABLET GT SCH (05:53)
[2023-05-22 08:03] VITALS: TEMP 98.2
[2023-05-22] MEDS: HYDROGEN PEROXIDE 3% 118 ML BOTTLE TP SCH ×2 (08:52→19:12)
[2023-05-22] MEDS: POLYVINYL ALCOHOL OPHT DROPS 15 ML BOTTLE EACHEYE SCH ×3 (09:39→17:22)
[2023-05-22] MEDS: DOCUSATE SODIUM 100 MG/10 ML LIQUID UDC GT SCH (09:39)
[2023-05-22] MEDS: busPIRone 10 MG TABLET GT SCH ×3 (09:39→17:22)
[2023-05-22] MEDS: VALPROIC ACID 250 MG/5 ML LIQUID UDC GT SCH ×4 (09:39→21:00)
[2023-05-22] MEDS: ACIDOPHILUS/BULGARICUS CHEW TAB GT SCH ×2 (09:40→21:00)
[2023-05-22] MEDS: levETIRAcetam 500 MG/5 ML LIQUID UDC GT SCH ×2 (09:40→21:00)
[2023-05-22] MEDS: MIRALAX 17 GM POWD.PACK GT SCH (09:41)
[2023-05-22] MEDS: ESCITALOPRAM OXALATE 10 MG TABLET GT SCH (09:41)
[2023-05-22] MEDS: POTASSIUM CHLORIDE 40 MEQ/30 ML LIQUID UDC GT SCH (09:41)
[2023-05-22] MEDS: REMEDY ESSENTIAL ZINC PASTE 113 GM TP SCH ×2 (09:41→21:00)
[2023-05-22] MEDS: JEVITY 1.2 1000 ML LIQUID GT PRN (09:53)
[2023-05-22 16:43] VITALS: O2SAT 98
[2023-05-22 19:35] VITALS: O2SAT 98
[2023-05-22 20:00] VITALS: TEMP 97.6
[2023-05-22] MEDS: RIVAROXABAN 15 MG TABLET GT SCH (21:00)
[2023-05-22] MEDS: CRANBERRY 500 MG GT SCH (21:00)
[2023-05-22] MEDS: PROTEIN SUPPLEMENT (PROSTAT) 30 ML LIQUID GT SCH (21:00)
[2023-05-22] MEDS: NUTRISOURCE FIBER 4 GM PACKET GT SCH (21:00)
[2023-05-22] MEDS: MAGNESIUM COMPLEX GT SCH (21:00)
[2023-05-22] MEDS: OMEGA-3 FATTY ACIDS/FISH OIL CAPSULE GT SCH (21:00)
[2023-05-22] MEDS: MELATONIN 3MG TABLET GT PRN (22:00)
[2023-05-23] MEDS: OMEPRAZOLE 20 MG CAPSULE.DR GT SCH (05:58)
[2023-05-23] MEDS: MULTIVIT, IRON, MIN NO. 8, FA TABLET GT SCH (05:58)
[2023-05-23] MEDS: BACLOFEN 10 MG TABLET GT SCH ×3 (05:58→17:10)
[2023-05-23] MEDS: HYDROGEN PEROXIDE 3% 118 ML BOTTLE TP SCH ×2 (08:18→19:21)
[2023-05-23] MEDS: POLYVINYL ALCOHOL OPHT DROPS 15 ML BOTTLE EACHEYE SCH ×3 (08:26→17:08)
[2023-05-23] MEDS: busPIRone 10 MG TABLET GT SCH ×3 (08:27→17:09)
[2023-05-23] MEDS: DOCUSATE SODIUM 100 MG/10 ML LIQUID UDC GT SCH (08:27)
[2023-05-23] MEDS: VALPROIC ACID 250 MG/5 ML LIQUID UDC GT SCH ×4 (08:33→20:58)
[2023-05-23] MEDS: ACIDOPHILUS/BULGARICUS CHEW TAB GT SCH ×2 (08:34→20:53)
[2023-05-23] MEDS: levETIRAcetam 500 MG/5 ML LIQUID UDC GT SCH ×2 (08:34→20:56)
[2023-05-23] MEDS: ESCITALOPRAM OXALATE 10 MG TABLET GT SCH (08:35)
[2023-05-23] MEDS: MIRALAX 17 GM POWD.PACK GT SCH (08:35)
[2023-05-23] MEDS: POTASSIUM CHLORIDE 40 MEQ/30 ML LIQUID UDC GT SCH (08:35)
[2023-05-23] MEDS: REMEDY ESSENTIAL ZINC PASTE 113 GM TP SCH ×2 (08:36→20:55)
[2023-05-23] MEDS: JEVITY 1.2 1000 ML LIQUID GT PRN (10:57)
[2023-05-23 11:49] VITALS: TEMP 97
[2023-05-23 13:48] VITALS: O2SAT 98
[2023-05-23 20:00] VITALS: TEMP 98
[2023-05-23 20:45] VITALS: O2SAT 98
[2023-05-23] MEDS: NUTRISOURCE FIBER 4 GM PACKET GT SCH (20:53)
[2023-05-23] MEDS: PROTEIN SUPPLEMENT (PROSTAT) 30 ML LIQUID GT SCH (20:54)
[2023-05-23] MEDS: CRANBERRY 500 MG GT SCH (20:56)
[2023-05-23] MEDS: MAGNESIUM COMPLEX GT SCH (20:57)
[2023-05-23] MEDS: OMEGA-3 FATTY ACIDS/FISH OIL CAPSULE GT SCH (20:59)
[2023-05-23] MEDS: RIVAROXABAN 15 MG TABLET GT SCH (21:14)
[2023-05-23] MEDS: MELATONIN 3MG TABLET GT PRN (21:15)
[2023-05-23] MEDS: LORAZEPAM 0.5 MG TABLET PO PRN (22:09)
[2023-05-24] MEDS: BACLOFEN 10 MG TABLET GT SCH ×4 (00:29→17:11)
[2023-05-24] MEDS: MULTIVIT, IRON, MIN NO. 8, FA TABLET GT SCH (05:01)
[2023-05-24] MEDS: OMEPRAZOLE 20 MG CAPSULE.DR GT SCH (05:01)
[2023-05-24 07:55] VITALS: TEMP 97.2
[2023-05-24] MEDS: busPIRone 10 MG TABLET GT SCH ×3 (08:27→17:10)
[2023-05-24] MEDS: POLYVINYL ALCOHOL OPHT DROPS 15 ML BOTTLE EACHEYE SCH ×3 (08:27→17:09)
[2023-05-24] MEDS: DOCUSATE SODIUM 100 MG/10 ML LIQUID UDC GT SCH (08:29)
[2023-05-24] MEDS: VALPROIC ACID 250 MG/5 ML LIQUID UDC GT SCH ×4 (08:29→21:25)
[2023-05-24] MEDS: ACIDOPHILUS/BULGARICUS CHEW TAB GT SCH ×2 (08:30→21:26)
[2023-05-24] MEDS: levETIRAcetam 500 MG/5 ML LIQUID UDC GT SCH ×2 (08:30→21:25)
[2023-05-24] MEDS: ESCITALOPRAM OXALATE 10 MG TABLET GT SCH (08:31)
[2023-05-24] MEDS: MIRALAX 17 GM POWD.PACK GT SCH (08:31)
[2023-05-24] MEDS: POTASSIUM CHLORIDE 40 MEQ/30 ML LIQUID UDC GT SCH (08:31)
[2023-05-24] MEDS: REMEDY ESSENTIAL ZINC PASTE 113 GM TP SCH ×2 (09:00→21:27)
[2023-05-24] MEDS: HYDROGEN PEROXIDE 3% 118 ML BOTTLE TP SCH ×2 (09:54→19:14)
[2023-05-24 10:45] VITALS: O2SAT 99
[2023-05-24] MEDS: JEVITY 1.2 1000 ML LIQUID GT PRN (14:51)
[2023-05-24 21:00] VITALS: TEMP 97.3
[2023-05-24] MEDS: MAGNESIUM COMPLEX GT SCH (21:26)
[2023-05-24] MEDS: CRANBERRY 500 MG GT SCH (21:26)
[2023-05-24] MEDS: NUTRISOURCE FIBER 4 GM PACKET GT SCH (21:26)
[2023-05-24] MEDS: PROTEIN SUPPLEMENT (PROSTAT) 30 ML LIQUID GT SCH (21:26)
[2023-05-24] MEDS: OMEGA-3 FATTY ACIDS/FISH OIL CAPSULE GT SCH (21:26)
[2023-05-24] MEDS: RIVAROXABAN 15 MG TABLET GT SCH (21:49)
[2023-05-24 21:50] VITALS: O2SAT 98
[2023-05-25] MEDS: BACLOFEN 10 MG TABLET GT SCH ×5 (00:25→23:11)
[2023-05-25] MEDS: LORAZEPAM 0.5 MG TABLET PO PRN ×2 (00:28→21:49)
[2023-05-25] MEDS: MULTIVIT, IRON, MIN NO. 8, FA TABLET GT SCH (05:56)
[2023-05-25] MEDS: OMEPRAZOLE 20 MG CAPSULE.DR GT SCH (05:56)
[2023-05-25 07:10] VITALS: O2SAT 98
[2023-05-25] MEDS: COAL TAR TOP SCH (09:00)
[2023-05-25] MEDS: POLYVINYL ALCOHOL OPHT DROPS 15 ML BOTTLE EACHEYE SCH ×3 (09:00→17:11)
[2023-05-25] MEDS: levETIRAcetam 500 MG/5 ML LIQUID UDC GT SCH ×2 (09:00→21:42)
[2023-05-25] MEDS: DOCUSATE SODIUM 100 MG/10 ML LIQUID UDC GT SCH (09:00)
[2023-05-25] MEDS: VALPROIC ACID 250 MG/5 ML LIQUID UDC GT SCH ×4 (09:00→21:42)
[2023-05-25] MEDS: busPIRone 10 MG TABLET GT SCH ×3 (09:00→17:11)
[2023-05-25] MEDS: REMEDY ESSENTIAL ZINC PASTE 113 GM TP SCH ×2 (09:00→21:44)
[2023-05-25] MEDS: NEOMY/BACITRA/POLYMYXIN B OINT UD PACKET TP SCH ×2 (09:00→21:46)
[2023-05-25] MEDS: MIRALAX 17 GM POWD.PACK GT SCH (09:00)
[2023-05-25] MEDS: ACIDOPHILUS/BULGARICUS CHEW TAB GT SCH ×2 (09:00→21:40)
[2023-05-25] MEDS: POTASSIUM CHLORIDE 40 MEQ/30 ML LIQUID UDC GT SCH (09:00)
[2023-05-25] MEDS: ESCITALOPRAM OXALATE 10 MG TABLET GT SCH (09:00)
[2023-05-25] MEDS: HYDROGEN PEROXIDE 3% 118 ML BOTTLE TP SCH ×2 (09:13→21:09)
[2023-05-25 09:23] VITALS: TEMP 97.4
[2023-05-25 13:00] VITALS: O2SAT 98
[2023-05-25 19:57] VITALS: O2SAT 98
[2023-05-25 20:00] VITALS: TEMP 97.4
[2023-05-25] MEDS: RIVAROXABAN 15 MG TABLET GT SCH (21:00)
[2023-05-25] MEDS: NUTRISOURCE FIBER 4 GM PACKET GT SCH (21:40)
[2023-05-25] MEDS: PROTEIN SUPPLEMENT (PROSTAT) 30 ML LIQUID GT SCH (21:40)
[2023-05-25] MEDS: CRANBERRY 500 MG GT SCH (21:43)
[2023-05-25] MEDS: MAGNESIUM COMPLEX GT SCH (21:43)
[2023-05-25] MEDS: OMEGA-3 FATTY ACIDS/FISH OIL CAPSULE GT SCH (21:43)
[2023-05-25] MEDS: MELATONIN 3MG TABLET GT PRN (23:55)
[2023-05-26] MEDS: BACLOFEN 10 MG TABLET GT SCH ×3 (05:16→17:00)
[2023-05-26] MEDS: OMEPRAZOLE 20 MG CAPSULE.DR GT SCH (05:16)
[2023-05-26] MEDS: MULTIVIT, IRON, MIN NO. 8, FA TABLET GT SCH (05:16)
[2023-05-26 08:00] VITALS: TEMP 97.8
[2023-05-26] MEDS: HYDROGEN PEROXIDE 3% 118 ML BOTTLE TP SCH ×2 (08:15→19:17)
[2023-05-26] MEDS: POLYVINYL ALCOHOL OPHT DROPS 15 ML BOTTLE EACHEYE SCH ×3 (08:41→17:00)
[2023-05-26] MEDS: VALPROIC ACID 250 MG/5 ML LIQUID UDC GT SCH ×4 (08:42→21:17)
[2023-05-26] MEDS: busPIRone 10 MG TABLET GT SCH ×3 (08:42→17:00)
[2023-05-26] MEDS: DOCUSATE SODIUM 100 MG/10 ML LIQUID UDC GT SCH (08:42)
[2023-05-26] MEDS: ACIDOPHILUS/BULGARICUS CHEW TAB GT SCH ×2 (08:42→21:17)
[2023-05-26] MEDS: MIRALAX 17 GM POWD.PACK GT SCH (08:43)
[2023-05-26] MEDS: ESCITALOPRAM OXALATE 10 MG TABLET GT SCH (08:43)
[2023-05-26] MEDS: levETIRAcetam 500 MG/5 ML LIQUID UDC GT SCH ×2 (08:43→21:17)
[2023-05-26] MEDS: POTASSIUM CHLORIDE 40 MEQ/30 ML LIQUID UDC GT SCH (08:43)
[2023-05-26] MEDS: NEOMY/BACITRA/POLYMYXIN B OINT UD PACKET TP SCH ×2 (08:45→21:17)
[2023-05-26] MEDS: REMEDY ESSENTIAL ZINC PASTE 113 GM TP SCH ×2 (08:45→21:17)
[2023-05-26 09:00] VITALS: O2SAT 99
[2023-05-26] MEDS: ACETAMINOPHEN 650 MG/20 ML UDC- SA PATIENTS-PAIN ONLY GT PRN (12:33)
[2023-05-26] MEDS: JEVITY 1.2 1000 ML LIQUID GT PRN (15:13)
[2023-05-26 19:35] VITALS: O2SAT 98
[2023-05-26 20:00] VITALS: TEMP 97.4
[2023-05-26] MEDS: OMEGA-3 FATTY ACIDS/FISH OIL CAPSULE GT SCH (21:17)
[2023-05-26] MEDS: MAGNESIUM COMPLEX GT SCH (21:17)
[2023-05-26] MEDS: NUTRISOURCE FIBER 4 GM PACKET GT SCH (21:17)
[2023-05-26] MEDS: CRANBERRY 500 MG GT SCH (21:17)
[2023-05-26] MEDS: PROTEIN SUPPLEMENT (PROSTAT) 30 ML LIQUID GT SCH (21:17)
[2023-05-26] MEDS: RIVAROXABAN 15 MG TABLET GT SCH (21:18)
[2023-05-26] MEDS: MELATONIN 3MG TABLET GT PRN (22:24)
[2023-05-27] MEDS: OMEPRAZOLE 20 MG CAPSULE.DR GT SCH (06:03)
[2023-05-27] MEDS: MULTIVIT, IRON, MIN NO. 8, FA TABLET GT SCH (06:03)
[2023-05-27] MEDS: BACLOFEN 10 MG TABLET GT SCH ×5 (06:03→23:09)
[2023-05-27 08:00] VITALS: TEMP 98.2
[2023-05-27 08:50] VITALS: O2SAT 98
[2023-05-27] MEDS: HYDROGEN PEROXIDE 3% 118 ML BOTTLE TP SCH ×2 (09:47→21:38)
[2023-05-27] MEDS: ESCITALOPRAM OXALATE 10 MG TABLET GT SCH (09:52)
[2023-05-27] MEDS: POTASSIUM CHLORIDE 40 MEQ/30 ML LIQUID UDC GT SCH (09:52)
[2023-05-27] MEDS: busPIRone 10 MG TABLET GT SCH ×3 (09:52→17:22)
[2023-05-27] MEDS: MIRALAX 17 GM POWD.PACK GT SCH (09:52)
[2023-05-27] MEDS: VALPROIC ACID 250 MG/5 ML LIQUID UDC GT SCH ×4 (09:52→20:23)
[2023-05-27] MEDS: POLYVINYL ALCOHOL OPHT DROPS 15 ML BOTTLE EACHEYE SCH ×3 (09:52→17:22)
[2023-05-27] MEDS: ACIDOPHILUS/BULGARICUS CHEW TAB GT SCH ×2 (09:52→20:24)
[2023-05-27] MEDS: levETIRAcetam 500 MG/5 ML LIQUID UDC GT SCH ×2 (09:52→20:24)
[2023-05-27] MEDS: DOCUSATE SODIUM 100 MG/10 ML LIQUID UDC GT SCH (09:52)
[2023-05-27] MEDS: NEOMY/BACITRA/POLYMYXIN B OINT UD PACKET TP SCH ×2 (09:52→20:24)
[2023-05-27] MEDS: REMEDY ESSENTIAL ZINC PASTE 113 GM TP SCH ×2 (09:52→20:24)
[2023-05-27] MEDS: JEVITY 1.2 1000 ML LIQUID GT PRN (12:00)
[2023-05-27] MEDS: ACETAMINOPHEN 650 MG/20 ML UDC- SA PATIENTS-PAIN ONLY GT PRN (16:00)
[2023-05-27 20:00] VITALS: TEMP 98.2
[2023-05-27 20:20] VITALS: O2SAT 98
[2023-05-27] MEDS: RIVAROXABAN 15 MG TABLET GT SCH (20:24)
[2023-05-27] MEDS: CRANBERRY 500 MG GT SCH (20:24)
[2023-05-27] MEDS: PROTEIN SUPPLEMENT (PROSTAT) 30 ML LIQUID GT SCH (20:24)
[2023-05-27] MEDS: NUTRISOURCE FIBER 4 GM PACKET GT SCH (20:24)
[2023-05-27] MEDS: MAGNESIUM COMPLEX GT SCH (20:24)
[2023-05-27] MEDS: OMEGA-3 FATTY ACIDS/FISH OIL CAPSULE GT SCH (20:24)
[2023-05-27] MEDS: MELATONIN 3MG TABLET GT PRN (20:25)
[2023-05-27] MEDS: LORAZEPAM 0.5 MG TABLET PO PRN (22:37)
[2023-05-28] MEDS: OMEPRAZOLE 20 MG CAPSULE.DR GT SCH (05:39)
[2023-05-28] MEDS: MULTIVIT, IRON, MIN NO. 8, FA TABLET GT SCH (05:39)
[2023-05-28] MEDS: BACLOFEN 10 MG TABLET GT SCH ×4 (05:39→23:23)
[2023-05-28] MEDS: HYDROGEN PEROXIDE 3% 118 ML BOTTLE TP SCH ×2 (07:26→21:05)
[2023-05-28 08:24] VITALS: O2SAT 98
[2023-05-28] MEDS: POTASSIUM CHLORIDE 40 MEQ/30 ML LIQUID UDC GT SCH (09:00)
[2023-05-28] MEDS: VALPROIC ACID 250 MG/5 ML LIQUID UDC GT SCH ×4 (09:00→20:35)
[2023-05-28] MEDS: DOCUSATE SODIUM 100 MG/10 ML LIQUID UDC GT SCH (09:00)
[2023-05-28] MEDS: REMEDY ESSENTIAL ZINC PASTE 113 GM TP SCH ×2 (09:00→20:35)
[2023-05-28] MEDS: busPIRone 10 MG TABLET GT SCH ×3 (09:00→17:27)
[2023-05-28] MEDS: ESCITALOPRAM OXALATE 10 MG TABLET GT SCH (09:00)
[2023-05-28] MEDS: levETIRAcetam 500 MG/5 ML LIQUID UDC GT SCH ×2 (09:00→20:35)
[2023-05-28] MEDS: COAL TAR TOP SCH (09:00)
[2023-05-28] MEDS: NEOMY/BACITRA/POLYMYXIN B OINT UD PACKET TP SCH ×3 (09:00→20:36)
[2023-05-28] MEDS: MIRALAX 17 GM POWD.PACK GT SCH (09:00)
[2023-05-28] MEDS: ACIDOPHILUS/BULGARICUS CHEW TAB GT SCH ×2 (09:00→20:35)
[2023-05-28] MEDS: POLYVINYL ALCOHOL OPHT DROPS 15 ML BOTTLE EACHEYE SCH ×3 (09:00→17:27)
[2023-05-28 20:08] VITALS: O2SAT 98
[2023-05-28] MEDS: NUTRISOURCE FIBER 4 GM PACKET GT SCH (20:35)
[2023-05-28] MEDS: OMEGA-3 FATTY ACIDS/FISH OIL CAPSULE GT SCH (20:35)
[2023-05-28] MEDS: CRANBERRY 500 MG GT SCH (20:35)
[2023-05-28] MEDS: MAGNESIUM COMPLEX GT SCH (20:35)
[2023-05-28] MEDS: PROTEIN SUPPLEMENT (PROSTAT) 30 ML LIQUID GT SCH (20:35)
[2023-05-28] MEDS: MELATONIN 3MG TABLET GT PRN (20:36)
[2023-05-28] MEDS: JEVITY 1.2 1000 ML LIQUID GT PRN (20:37)
[2023-05-28] MEDS: RIVAROXABAN 15 MG TABLET GT SCH (21:59)
[2023-05-28] MEDS: LORAZEPAM 0.5 MG TABLET PO PRN (23:20)
[2023-05-29] MEDS: OMEPRAZOLE 20 MG CAPSULE.DR GT SCH (05:10)
[2023-05-29] MEDS: MULTIVIT, IRON, MIN NO. 8, FA TABLET GT SCH (05:10)
[2023-05-29] MEDS: BACLOFEN 10 MG TABLET GT SCH ×4 (05:10→23:10)
[2023-05-29 07:20] VITALS: O2SAT 98
[2023-05-29 08:00] VITALS: TEMP 97
[2023-05-29] MEDS: ACIDOPHILUS/BULGARICUS CHEW TAB GT SCH ×2 (09:03→20:45)
[2023-05-29] MEDS: POTASSIUM CHLORIDE 40 MEQ/30 ML LIQUID UDC GT SCH (09:03)
[2023-05-29] MEDS: HYDROGEN PEROXIDE 3% 118 ML BOTTLE TP SCH ×2 (09:03→22:01)
[2023-05-29] MEDS: busPIRone 10 MG TABLET GT SCH ×3 (09:03→17:17)
[2023-05-29] MEDS: NEOMY/BACITRA/POLYMYXIN B OINT UD PACKET TP SCH ×4 (09:03→20:45)
[2023-05-29] MEDS: POLYVINYL ALCOHOL OPHT DROPS 15 ML BOTTLE EACHEYE SCH ×3 (09:03→17:17)
[2023-05-29] MEDS: REMEDY ESSENTIAL ZINC PASTE 113 GM TP SCH ×2 (09:03→20:45)
[2023-05-29] MEDS: VALPROIC ACID 250 MG/5 ML LIQUID UDC GT SCH ×4 (09:03→20:45)
[2023-05-29] MEDS: DOCUSATE SODIUM 100 MG/10 ML LIQUID UDC GT SCH (09:03)
[2023-05-29] MEDS: ESCITALOPRAM OXALATE 10 MG TABLET GT SCH (09:03)
[2023-05-29] MEDS: levETIRAcetam 500 MG/5 ML LIQUID UDC GT SCH ×2 (09:03→20:45)
[2023-05-29] MEDS: MIRALAX 17 GM POWD.PACK GT SCH (09:14)
[2023-05-29 13:47] VITALS: O2SAT 98
[2023-05-29 20:00] VITALS: TEMP 98.6
[2023-05-29 20:09] VITALS: O2SAT 98
[2023-05-29] MEDS: OMEGA-3 FATTY ACIDS/FISH OIL CAPSULE GT SCH (20:45)
[2023-05-29] MEDS: LORAZEPAM 0.5 MG TABLET PO PRN (20:45)
[2023-05-29] MEDS: NUTRISOURCE FIBER 4 GM PACKET GT SCH (20:45)
[2023-05-29] MEDS: CRANBERRY 500 MG GT SCH (20:45)
[2023-05-29] MEDS: PROTEIN SUPPLEMENT (PROSTAT) 30 ML LIQUID GT SCH (20:45)
[2023-05-29] MEDS: MAGNESIUM COMPLEX GT SCH (20:45)
[2023-05-29] MEDS: MELATONIN 3MG TABLET GT PRN (20:47)
[2023-05-29] MEDS: RIVAROXABAN 15 MG TABLET GT SCH (21:00)
[2023-05-29] MEDS: JEVITY 1.2 1000 ML LIQUID GT PRN (22:15)
[2023-05-30] MEDS: OMEPRAZOLE 20 MG CAPSULE.DR GT SCH (05:56)
[2023-05-30] MEDS: BACLOFEN 10 MG TABLET GT SCH ×3 (05:56→17:24)
[2023-05-30] MEDS: MULTIVIT, IRON, MIN NO. 8, FA TABLET GT SCH (05:56)
[2023-05-30 07:41] VITALS: TEMP 97
[2023-05-30] MEDS: DOCUSATE SODIUM 100 MG/10 ML LIQUID UDC GT SCH (08:37)
[2023-05-30] MEDS: VALPROIC ACID 250 MG/5 ML LIQUID UDC GT SCH ×4 (08:37→20:43)
[2023-05-30] MEDS: POLYVINYL ALCOHOL OPHT DROPS 15 ML BOTTLE EACHEYE SCH ×3 (08:37→17:24)
[2023-05-30] MEDS: busPIRone 10 MG TABLET GT SCH ×3 (08:37→17:24)
[2023-05-30] MEDS: MIRALAX 17 GM POWD.PACK GT SCH (08:39)
[2023-05-30] MEDS: POTASSIUM CHLORIDE 40 MEQ/30 ML LIQUID UDC GT SCH (08:39)
[2023-05-30] MEDS: ESCITALOPRAM OXALATE 10 MG TABLET GT SCH (08:39)
[2023-05-30] MEDS: ACIDOPHILUS/BULGARICUS CHEW TAB GT SCH ×2 (08:39→20:44)
[2023-05-30] MEDS: REMEDY ESSENTIAL ZINC PASTE 113 GM TP SCH ×2 (08:39→20:46)
[2023-05-30] MEDS: levETIRAcetam 500 MG/5 ML LIQUID UDC GT SCH ×2 (08:39→20:44)
[2023-05-30] MEDS: NEOMY/BACITRA/POLYMYXIN B OINT UD PACKET TP SCH ×4 (08:39→20:46)
[2023-05-30] MEDS: HYDROGEN PEROXIDE 3% 118 ML BOTTLE TP SCH ×2 (09:00→21:00)
[2023-05-30 10:50] VITALS: O2SAT 99
[2023-05-30] MEDS: ACETAMINOPHEN 650 MG/20 ML UDC- SA PATIENTS-PAIN ONLY GT PRN (17:24)
[2023-05-30 19:45] VITALS: O2SAT 99
[2023-05-30] MEDS: OMEGA-3 FATTY ACIDS/FISH OIL CAPSULE GT SCH (20:43)
[2023-05-30] MEDS: CRANBERRY 500 MG GT SCH (20:45)
[2023-05-30] MEDS: NUTRISOURCE FIBER 4 GM PACKET GT SCH (20:45)
[2023-05-30] MEDS: MAGNESIUM COMPLEX GT SCH (20:45)
[2023-05-30] MEDS: PROTEIN SUPPLEMENT (PROSTAT) 30 ML LIQUID GT SCH (20:45)
[2023-05-30] MEDS: RIVAROXABAN 15 MG TABLET GT SCH (20:46)
[2023-05-30 20:54] VITALS: TEMP 98.4
[2023-05-30] MEDS: JEVITY 1.2 1000 ML LIQUID GT PRN (22:35)
[2023-05-31] MEDS: BACLOFEN 10 MG TABLET GT SCH ×4 (00:04→17:11)
[2023-05-31] MEDS: MELATONIN 3MG TABLET GT PRN (00:04)
[2023-05-31] MEDS: LORAZEPAM 0.5 MG TABLET PO PRN ×2 (00:30→23:05)
[2023-05-31] MEDS: MULTIVIT, IRON, MIN NO. 8, FA TABLET GT SCH (05:09)
[2023-05-31] MEDS: OMEPRAZOLE 20 MG CAPSULE.DR GT SCH (05:09)
[2023-05-31] MEDS: HYDROGEN PEROXIDE 3% 118 ML BOTTLE TP SCH ×2 (07:56→20:50)
[2023-05-31 09:24] VITALS: TEMP 97.6
[2023-05-31] MEDS: busPIRone 10 MG TABLET GT SCH ×3 (09:31→17:10)
[2023-05-31] MEDS: POLYVINYL ALCOHOL OPHT DROPS 15 ML BOTTLE EACHEYE SCH ×3 (09:31→17:10)
[2023-05-31] MEDS: VALPROIC ACID 250 MG/5 ML LIQUID UDC GT SCH ×4 (09:32→21:28)
[2023-05-31] MEDS: DOCUSATE SODIUM 100 MG/10 ML LIQUID UDC GT SCH (09:32)
[2023-05-31] MEDS: levETIRAcetam 500 MG/5 ML LIQUID UDC GT SCH ×2 (09:33→21:28)
[2023-05-31] MEDS: ACIDOPHILUS/BULGARICUS CHEW TAB GT SCH ×2 (09:33→21:28)
[2023-05-31] MEDS: MIRALAX 17 GM POWD.PACK GT SCH (09:34)
[2023-05-31] MEDS: ESCITALOPRAM OXALATE 10 MG TABLET GT SCH (09:34)
[2023-05-31] MEDS: REMEDY ESSENTIAL ZINC PASTE 113 GM TP SCH ×2 (09:35→21:30)
[2023-05-31] MEDS: POTASSIUM CHLORIDE 40 MEQ/30 ML LIQUID UDC GT SCH (09:35)
[2023-05-31] MEDS: NEOMY/BACITRA/POLYMYXIN B OINT UD PACKET TP SCH ×4 (09:35→21:30)
[2023-05-31 10:30] VITALS: O2SAT 99
[2023-05-31 20:00] VITALS: TEMP 98.6
[2023-05-31 20:10] VITALS: O2SAT 98
[2023-05-31] MEDS: CRANBERRY 500 MG GT SCH (21:28)
[2023-05-31] MEDS: NUTRISOURCE FIBER 4 GM PACKET GT SCH (21:28)
[2023-05-31] MEDS: MAGNESIUM COMPLEX GT SCH (21:28)
[2023-05-31] MEDS: OMEGA-3 FATTY ACIDS/FISH OIL CAPSULE GT SCH (21:28)
[2023-05-31] MEDS: PROTEIN SUPPLEMENT (PROSTAT) 30 ML LIQUID GT SCH (21:28)
[2023-05-31] MEDS: RIVAROXABAN 15 MG TABLET GT SCH (21:29)
[2023-06-01] MEDS: BACLOFEN 10 MG TABLET GT SCH ×4 (00:07→17:20)
[2023-06-01] MEDS: OMEPRAZOLE 20 MG CAPSULE.DR GT SCH (05:45)
[2023-06-01] MEDS: MULTIVIT, IRON, MIN NO. 8, FA TABLET GT SCH (05:45)
[2023-06-01 07:31] VITALS: O2SAT 98
[2023-06-01] MEDS: HYDROGEN PEROXIDE 3% 118 ML BOTTLE TP SCH ×2 (09:00→19:23)
[2023-06-01 09:12] VITALS: TEMP 97.2
[2023-06-01] MEDS: POLYVINYL ALCOHOL OPHT DROPS 15 ML BOTTLE EACHEYE SCH ×3 (09:56→16:33)
[2023-06-01] MEDS: VALPROIC ACID 250 MG/5 ML LIQUID UDC GT SCH ×4 (09:56→20:44)
[2023-06-01] MEDS: levETIRAcetam 500 MG/5 ML LIQUID UDC GT SCH ×2 (09:56→20:45)
[2023-06-01] MEDS: MIRALAX 17 GM POWD.PACK GT SCH (09:56)
[2023-06-01] MEDS: ESCITALOPRAM OXALATE 10 MG TABLET GT SCH (09:56)
[2023-06-01] MEDS: busPIRone 10 MG TABLET GT SCH ×3 (09:56→16:34)
[2023-06-01] MEDS: DOCUSATE SODIUM 100 MG/10 ML LIQUID UDC GT SCH (09:56)
[2023-06-01] MEDS: POTASSIUM CHLORIDE 40 MEQ/30 ML LIQUID UDC GT SCH (09:56)
[2023-06-01] MEDS: ACIDOPHILUS/BULGARICUS CHEW TAB GT SCH ×2 (09:56→20:44)
[2023-06-01] MEDS: REMEDY ESSENTIAL ZINC PASTE 113 GM TP SCH ×2 (09:57→21:05)
[2023-06-01] MEDS: NEOMY/BACITRA/POLYMYXIN B OINT UD PACKET TP SCH ×2 (09:57→21:05)
[2023-06-01] MEDS: COAL TAR TOP SCH (09:57)
[2023-06-01] MEDS ORDERED: COVID-19 VACC, SPIKEVAX (PHA) 50 MCG/0.5 ML VIAL IM ONE (14:00)
[2023-06-01 14:22] VITALS: O2SAT 98
[2023-06-01] MEDS: ACETAMINOPHEN 650 MG/20 ML UDC- SA PATIENTS-PAIN ONLY GT PRN (16:31)
[2023-06-01] MEDS: diphenhydrAMINE 25 MG/10 ML UDC GT PRN (16:37)
[2023-06-01 19:35] VITALS: O2SAT 98
[2023-06-01 20:00] VITALS: TEMP 98.4
[2023-06-01] MEDS: OMEGA-3 FATTY ACIDS/FISH OIL CAPSULE GT SCH (20:44)
[2023-06-01] MEDS: CRANBERRY 500 MG GT SCH (20:45)
[2023-06-01] MEDS: RIVAROXABAN 15 MG TABLET GT SCH (21:04)
[2023-06-01] MEDS: PROTEIN SUPPLEMENT (PROSTAT) 30 ML LIQUID GT SCH (21:04)
[2023-06-01] MEDS: NUTRISOURCE FIBER 4 GM PACKET GT SCH (21:04)
[2023-06-01] MEDS: MAGNESIUM COMPLEX GT SCH (21:04)
[2023-06-01] MEDS: MELATONIN 3MG TABLET GT PRN (21:26)
[2023-06-01] MEDS: LORAZEPAM 0.5 MG TABLET PO PRN (22:33)
[2023-06-02] VITALS (9 sets, daily range): TEMP 97.2–98.7; O2SAT 98–99
[2023-06-02] MEDS: OMEPRAZOLE 20 MG CAPSULE.DR GT SCH (05:26)
[2023-06-02] MEDS: BACLOFEN 10 MG TABLET GT SCH ×5 (05:26→23:30)
[2023-06-02] MEDS: MULTIVIT, IRON, MIN NO. 8, FA TABLET GT SCH (05:26)
[2023-06-02] MEDS: JEVITY 1.2 1000 ML LIQUID GT PRN (06:00)
[2023-06-02] MEDS: HYDROGEN PEROXIDE 3% 118 ML BOTTLE TP SCH ×2 (09:00→21:16)
[2023-06-02] MEDS: busPIRone 10 MG TABLET GT SCH ×3 (09:18→17:37)
[2023-06-02] MEDS: POLYVINYL ALCOHOL OPHT DROPS 15 ML BOTTLE EACHEYE SCH ×3 (09:18→17:37)
[2023-06-02] MEDS: DOCUSATE SODIUM 100 MG/10 ML LIQUID UDC GT SCH (09:19)
[2023-06-02] MEDS: VALPROIC ACID 250 MG/5 ML LIQUID UDC GT SCH ×4 (09:19→21:19)
[2023-06-02] MEDS: levETIRAcetam 500 MG/5 ML LIQUID UDC GT SCH ×2 (09:20→21:21)
[2023-06-02] MEDS: ESCITALOPRAM OXALATE 10 MG TABLET GT SCH (09:20)
[2023-06-02] MEDS: MIRALAX 17 GM POWD.PACK GT SCH (09:20)
[2023-06-02] MEDS: ACIDOPHILUS/BULGARICUS CHEW TAB GT SCH ×2 (09:20→21:20)
[2023-06-02] MEDS: REMEDY ESSENTIAL ZINC PASTE 113 GM TP SCH ×2 (09:21→21:22)
[2023-06-02] MEDS: POTASSIUM CHLORIDE 40 MEQ/30 ML LIQUID UDC GT SCH (09:21)
[2023-06-02] MEDS: NEOMY/BACITRA/POLYMYXIN B OINT UD PACKET TP SCH ×2 (09:21→21:22)
[2023-06-02] MEDS: ACETAMINOPHEN 650 MG/20 ML UDC- SA PATIENTS-PAIN ONLY GT PRN (17:37)
[2023-06-02] MEDS: OMEGA-3 FATTY ACIDS/FISH OIL CAPSULE GT SCH (21:20)
[2023-06-02] MEDS: MAGNESIUM COMPLEX GT SCH (21:21)
[2023-06-02] MEDS: CRANBERRY 500 MG GT SCH (21:21)
[2023-06-02] MEDS: NUTRISOURCE FIBER 4 GM PACKET GT SCH (21:21)
[2023-06-02] MEDS: PROTEIN SUPPLEMENT (PROSTAT) 30 ML LIQUID GT SCH (21:22)
[2023-06-02] MEDS: RIVAROXABAN 15 MG TABLET GT SCH (21:22)
[2023-06-02] MEDS: MELATONIN 3MG TABLET GT PRN (21:36)
[2023-06-02] MEDS: LORAZEPAM 0.5 MG TABLET PO PRN (23:30)
[2023-06-03] VITALS (9 sets, daily range): TEMP 97.7–99.6; O2SAT 98–99
[2023-06-03] MEDS: JEVITY 1.2 1000 ML LIQUID GT PRN (04:06)
[2023-06-03] MEDS: MULTIVIT, IRON, MIN NO. 8, FA TABLET GT SCH (05:38)
[2023-06-03] MEDS: OMEPRAZOLE 20 MG CAPSULE.DR GT SCH (05:38)
[2023-06-03] MEDS: BACLOFEN 10 MG TABLET GT SCH ×4 (05:38→23:02)
[2023-06-03] MEDS: DOCUSATE SODIUM 100 MG/10 ML LIQUID UDC GT SCH (08:47)
[2023-06-03] MEDS: busPIRone 10 MG TABLET GT SCH ×3 (08:47→17:06)
[2023-06-03] MEDS: POLYVINYL ALCOHOL OPHT DROPS 15 ML BOTTLE EACHEYE SCH ×3 (08:47→17:05)
[2023-06-03] MEDS: VALPROIC ACID 250 MG/5 ML LIQUID UDC GT SCH ×4 (08:48→20:58)
[2023-06-03] MEDS: ACIDOPHILUS/BULGARICUS CHEW TAB GT SCH ×2 (08:49→20:59)
[2023-06-03] MEDS: levETIRAcetam 500 MG/5 ML LIQUID UDC GT SCH ×2 (08:49→21:00)
[2023-06-03] MEDS: MIRALAX 17 GM POWD.PACK GT SCH (08:49)
[2023-06-03] MEDS: ESCITALOPRAM OXALATE 10 MG TABLET GT SCH (08:49)
[2023-06-03] MEDS: REMEDY ESSENTIAL ZINC PASTE 113 GM TP SCH ×2 (08:50→21:00)
[2023-06-03] MEDS: POTASSIUM CHLORIDE 40 MEQ/30 ML LIQUID UDC GT SCH (08:50)
[2023-06-03] MEDS: NEOMY/BACITRA/POLYMYXIN B OINT UD PACKET TP SCH ×2 (09:00→21:00)
[2023-06-03] MEDS: HYDROGEN PEROXIDE 3% 118 ML BOTTLE TP SCH ×2 (09:00→20:55)
[2023-06-03] MEDS ORDERED: GABAPENTIN 100 MG CAPSULE GT SCH (13:00)
[2023-06-03] MEDS: GABAPENTIN 100 MG CAPSULE GT SCH (13:07)
[2023-06-03] MEDS: ACETAMINOPHEN 650 MG/20 ML UDC- SA PATIENTS-PAIN ONLY GT PRN (14:30)
[2023-06-03] MEDS: OMEGA-3 FATTY ACIDS/FISH OIL CAPSULE GT SCH (20:58)
[2023-06-03] MEDS: NUTRISOURCE FIBER 4 GM PACKET GT SCH (21:00)
[2023-06-03] MEDS: RIVAROXABAN 15 MG TABLET GT SCH (21:00)
[2023-06-03] MEDS: PROTEIN SUPPLEMENT (PROSTAT) 30 ML LIQUID GT SCH (21:00)
[2023-06-03] MEDS: MAGNESIUM COMPLEX GT SCH (21:00)
[2023-06-03] MEDS: CRANBERRY 500 MG GT SCH (21:00)
[2023-06-03] MEDS: MELATONIN 3MG TABLET GT PRN (21:11)
[2023-06-03] MEDS: LORAZEPAM 0.5 MG TABLET PO PRN (23:02)
[2023-06-04] VITALS (10 sets, daily range): TEMP 97.4–98.2; O2SAT 97–98
[2023-06-04] MEDS: JEVITY 1.2 1000 ML LIQUID GT PRN (04:00)
[2023-06-04] MEDS: OMEPRAZOLE 20 MG CAPSULE.DR GT SCH (05:13)
[2023-06-04] MEDS: MULTIVIT, IRON, MIN NO. 8, FA TABLET GT SCH (05:13)
[2023-06-04] MEDS: BACLOFEN 10 MG TABLET GT SCH ×4 (05:13→23:12)
[2023-06-04] MEDS: HYDROGEN PEROXIDE 3% 118 ML BOTTLE TP SCH ×2 (08:40→19:12)
[2023-06-04] MEDS: ESCITALOPRAM OXALATE 10 MG TABLET GT SCH (09:45)
[2023-06-04] MEDS: levETIRAcetam 500 MG/5 ML LIQUID UDC GT SCH ×2 (09:45→20:42)
[2023-06-04] MEDS: ACIDOPHILUS/BULGARICUS CHEW TAB GT SCH ×2 (09:45→20:42)
[2023-06-04] MEDS: MIRALAX 17 GM POWD.PACK GT SCH (09:45)
[2023-06-04] MEDS: POTASSIUM CHLORIDE 40 MEQ/30 ML LIQUID UDC GT SCH (09:45)
[2023-06-04] MEDS: COAL TAR TOP SCH (09:45)
[2023-06-04] MEDS: REMEDY ESSENTIAL ZINC PASTE 113 GM TP SCH ×2 (09:45→20:43)
[2023-06-04] MEDS: busPIRone 10 MG TABLET GT SCH ×3 (09:45→17:16)
[2023-06-04] MEDS: POLYVINYL ALCOHOL OPHT DROPS 15 ML BOTTLE EACHEYE SCH ×3 (09:45→17:16)
[2023-06-04] MEDS: NEOMY/BACITRA/POLYMYXIN B OINT UD PACKET TP SCH (09:45)
[2023-06-04] MEDS: VALPROIC ACID 250 MG/5 ML LIQUID UDC GT SCH ×4 (09:45→20:42)
[2023-06-04] MEDS: DOCUSATE SODIUM 100 MG/10 ML LIQUID UDC GT SCH (09:45)
[2023-06-04] MEDS: GABAPENTIN 100 MG CAPSULE GT SCH (12:20)
[2023-06-04] MEDS: CRANBERRY 500 MG GT SCH (20:42)
[2023-06-04] MEDS: NUTRISOURCE FIBER 4 GM PACKET GT SCH (20:42)
[2023-06-04] MEDS: MAGNESIUM COMPLEX GT SCH (20:42)
[2023-06-04] MEDS: PROTEIN SUPPLEMENT (PROSTAT) 30 ML LIQUID GT SCH (20:42)
[2023-06-04] MEDS: OMEGA-3 FATTY ACIDS/FISH OIL CAPSULE GT SCH (20:42)
[2023-06-04] MEDS: MELATONIN 3MG TABLET GT PRN (20:43)
[2023-06-04] MEDS: LORAZEPAM 0.5 MG TABLET PO PRN (21:00)
[2023-06-04] MEDS: RIVAROXABAN 15 MG TABLET GT SCH (21:55)
[2023-06-05 00:49] VITALS: TEMP 97
[2023-06-05] MEDS: OMEPRAZOLE 20 MG CAPSULE.DR GT SCH (05:13)
[2023-06-05] MEDS: BACLOFEN 10 MG TABLET GT SCH ×4 (05:13→23:17)
[2023-06-05] MEDS: MULTIVIT, IRON, MIN NO. 8, FA TABLET GT SCH (05:13)
[2023-06-05] MEDS: HYDROGEN PEROXIDE 3% 118 ML BOTTLE TP SCH ×2 (07:21→19:25)
[2023-06-05 08:00] VITALS: TEMP 98.2
[2023-06-05] MEDS: DOCUSATE SODIUM 100 MG/10 ML LIQUID UDC GT SCH (09:00)
[2023-06-05] MEDS: ACIDOPHILUS/BULGARICUS CHEW TAB GT SCH ×2 (09:00→20:16)
[2023-06-05] MEDS: POLYVINYL ALCOHOL OPHT DROPS 15 ML BOTTLE EACHEYE SCH ×3 (09:00→17:40)
[2023-06-05] MEDS: levETIRAcetam 500 MG/5 ML LIQUID UDC GT SCH ×2 (09:00→20:16)
[2023-06-05] MEDS: busPIRone 10 MG TABLET GT SCH ×3 (09:00→17:40)
[2023-06-05] MEDS: VALPROIC ACID 250 MG/5 ML LIQUID UDC GT SCH ×4 (09:00→20:16)
[2023-06-05] MEDS: ESCITALOPRAM OXALATE 10 MG TABLET GT SCH (09:00)
[2023-06-05] MEDS: REMEDY ESSENTIAL ZINC PASTE 113 GM TP SCH ×2 (09:00→20:16)
[2023-06-05] MEDS: MIRALAX 17 GM POWD.PACK GT SCH (09:00)
[2023-06-05] MEDS: POTASSIUM CHLORIDE 40 MEQ/30 ML LIQUID UDC GT SCH (09:00)
[2023-06-05 10:32] VITALS: O2SAT 98
[2023-06-05] MEDS: JEVITY 1.2 1000 ML LIQUID GT PRN (11:08)
[2023-06-05] MEDS: GABAPENTIN 100 MG CAPSULE GT SCH (12:18)
[2023-06-05 20:00] VITALS: TEMP 97.8
[2023-06-05] MEDS: CRANBERRY 500 MG GT SCH (20:16)
[2023-06-05] MEDS: PROTEIN SUPPLEMENT (PROSTAT) 30 ML LIQUID GT SCH (20:16)
[2023-06-05] MEDS: NUTRISOURCE FIBER 4 GM PACKET GT SCH (20:16)
[2023-06-05] MEDS: MAGNESIUM COMPLEX GT SCH (20:16)
[2023-06-05] MEDS: OMEGA-3 FATTY ACIDS/FISH OIL CAPSULE GT SCH (20:16)
[2023-06-05] MEDS: LORAZEPAM 0.5 MG TABLET PO PRN (20:17)
[2023-06-05] MEDS: MELATONIN 3MG TABLET GT PRN (20:18)
[2023-06-05 21:09] VITALS: O2SAT 97
[2023-06-05] MEDS: RIVAROXABAN 15 MG TABLET GT SCH (21:59)
[2023-06-05] MEDS: ACETAMINOPHEN 650 MG/20 ML UDC- SA PATIENTS-PAIN ONLY GT PRN (22:39)
[2023-06-06] MEDS: MULTIVIT, IRON, MIN NO. 8, FA TABLET GT SCH (05:47)
[2023-06-06] MEDS: OMEPRAZOLE 20 MG CAPSULE.DR GT SCH (05:47)
[2023-06-06] MEDS: BACLOFEN 10 MG TABLET GT SCH ×3 (05:47→17:09)
[2023-06-06 07:51] VITALS: TEMP 97.6
[2023-06-06] MEDS: DOCUSATE SODIUM 100 MG/10 ML LIQUID UDC GT SCH (08:10)
[2023-06-06] MEDS: POLYVINYL ALCOHOL OPHT DROPS 15 ML BOTTLE EACHEYE SCH ×3 (08:10→17:08)
[2023-06-06] MEDS: busPIRone 10 MG TABLET GT SCH ×3 (08:10→17:09)
[2023-06-06] MEDS: ACIDOPHILUS/BULGARICUS CHEW TAB GT SCH ×2 (08:11→21:42)
[2023-06-06] MEDS: VALPROIC ACID 250 MG/5 ML LIQUID UDC GT SCH ×4 (08:11→21:39)
[2023-06-06] MEDS: levETIRAcetam 500 MG/5 ML LIQUID UDC GT SCH ×2 (08:11→21:39)
[2023-06-06] MEDS: ESCITALOPRAM OXALATE 10 MG TABLET GT SCH (08:12)
[2023-06-06] MEDS: MIRALAX 17 GM POWD.PACK GT SCH (08:12)
[2023-06-06] MEDS: POTASSIUM CHLORIDE 40 MEQ/30 ML LIQUID UDC GT SCH (08:13)
[2023-06-06] MEDS: REMEDY ESSENTIAL ZINC PASTE 113 GM TP SCH ×2 (08:13→21:40)
[2023-06-06] MEDS: HYDROGEN PEROXIDE 3% 118 ML BOTTLE TP SCH ×2 (08:59→21:22)
[2023-06-06] MEDS: JEVITY 1.2 1000 ML LIQUID GT PRN (12:17)
[2023-06-06] MEDS: GABAPENTIN 100 MG CAPSULE GT SCH (12:17)
[2023-06-06 14:15] VITALS: O2SAT 98
[2023-06-06] MEDS: ACETAMINOPHEN 650 MG/20 ML UDC- SA PATIENTS-PAIN ONLY GT PRN (18:26)
[2023-06-06 20:19] VITALS: TEMP 98.4
[2023-06-06] MEDS: NUTRISOURCE FIBER 4 GM PACKET GT SCH (21:39)
[2023-06-06] MEDS: PROTEIN SUPPLEMENT (PROSTAT) 30 ML LIQUID GT SCH (21:39)
[2023-06-06] MEDS: MAGNESIUM COMPLEX GT SCH (21:39)
[2023-06-06] MEDS: CRANBERRY 500 MG GT SCH (21:39)
[2023-06-06] MEDS: OMEGA-3 FATTY ACIDS/FISH OIL CAPSULE GT SCH (21:42)
[2023-06-06] MEDS: RIVAROXABAN 15 MG TABLET GT SCH (21:44)
[2023-06-07] MEDS: BACLOFEN 10 MG TABLET GT SCH ×5 (00:27→23:20)
[2023-06-07 01:56] VITALS: O2SAT 98
[2023-06-07] MEDS: MULTIVIT, IRON, MIN NO. 8, FA TABLET GT SCH (05:01)
[2023-06-07] MEDS: OMEPRAZOLE 20 MG CAPSULE.DR GT SCH (05:01)
[2023-06-07] MEDS: HYDROGEN PEROXIDE 3% 118 ML BOTTLE TP SCH ×2 (07:20→21:45)
[2023-06-07 07:30] VITALS: TEMP 98
[2023-06-07] MEDS: busPIRone 10 MG TABLET GT SCH ×3 (08:04→16:55)
[2023-06-07] MEDS: POLYVINYL ALCOHOL OPHT DROPS 15 ML BOTTLE EACHEYE SCH ×3 (08:04→16:55)
[2023-06-07] MEDS: VALPROIC ACID 250 MG/5 ML LIQUID UDC GT SCH ×4 (08:04→20:09)
[2023-06-07] MEDS: DOCUSATE SODIUM 100 MG/10 ML LIQUID UDC GT SCH (08:04)
[2023-06-07] MEDS: ACIDOPHILUS/BULGARICUS CHEW TAB GT SCH ×2 (08:05→20:09)
[2023-06-07] MEDS: ESCITALOPRAM OXALATE 10 MG TABLET GT SCH (08:07)
[2023-06-07] MEDS: levETIRAcetam 500 MG/5 ML LIQUID UDC GT SCH ×2 (08:07→20:09)
[2023-06-07] MEDS: MIRALAX 17 GM POWD.PACK GT SCH (08:07)
[2023-06-07] MEDS: POTASSIUM CHLORIDE 40 MEQ/30 ML LIQUID UDC GT SCH (08:08)
[2023-06-07] MEDS: REMEDY ESSENTIAL ZINC PASTE 113 GM TP SCH ×2 (08:08→20:11)
[2023-06-07 10:50] VITALS: O2SAT 99
[2023-06-07] MEDS: GABAPENTIN 100 MG CAPSULE GT SCH (13:00)
[2023-06-07] MEDS: JEVITY 1.2 1000 ML LIQUID GT PRN (14:33)
[2023-06-07] MEDS: CRANBERRY 500 MG GT SCH (20:09)
[2023-06-07] MEDS: OMEGA-3 FATTY ACIDS/FISH OIL CAPSULE GT SCH (20:09)
[2023-06-07] MEDS: MAGNESIUM COMPLEX GT SCH (20:09)
[2023-06-07] MEDS: NUTRISOURCE FIBER 4 GM PACKET GT SCH (20:09)
[2023-06-07] MEDS: PROTEIN SUPPLEMENT (PROSTAT) 30 ML LIQUID GT SCH (20:09)
[2023-06-07] MEDS: RIVAROXABAN 15 MG TABLET GT SCH (20:11)
[2023-06-07 20:23] VITALS: TEMP 98.4
[2023-06-07] MEDS: MELATONIN 3MG TABLET GT PRN (22:23)
[2023-06-08] MEDS: LORAZEPAM 0.5 MG TABLET PO PRN (00:48)
[2023-06-08 01:41] VITALS: O2SAT 97
[2023-06-08] MEDS: MULTIVIT, IRON, MIN NO. 8, FA TABLET GT SCH (05:21)
[2023-06-08] MEDS: OMEPRAZOLE 20 MG CAPSULE.DR GT SCH (05:21)
[2023-06-08] MEDS: BACLOFEN 10 MG TABLET GT SCH ×3 (05:21→17:13)
[2023-06-08 07:26] VITALS: TEMP 97.5
[2023-06-08] MEDS: HYDROGEN PEROXIDE 3% 118 ML BOTTLE TP SCH ×2 (07:48→21:02)
[2023-06-08] MEDS: MIRALAX 17 GM POWD.PACK GT SCH (09:22)
[2023-06-08] MEDS: ACIDOPHILUS/BULGARICUS CHEW TAB GT SCH ×2 (09:22→21:16)
[2023-06-08] MEDS: busPIRone 10 MG TABLET GT SCH ×3 (09:22→16:06)
[2023-06-08] MEDS: VALPROIC ACID 250 MG/5 ML LIQUID UDC GT SCH ×4 (09:22→21:16)
[2023-06-08] MEDS: POTASSIUM CHLORIDE 40 MEQ/30 ML LIQUID UDC GT SCH (09:22)
[2023-06-08] MEDS: DOCUSATE SODIUM 100 MG/10 ML LIQUID UDC GT SCH (09:22)
[2023-06-08] MEDS: levETIRAcetam 500 MG/5 ML LIQUID UDC GT SCH ×2 (09:22→21:17)
[2023-06-08] MEDS: POLYVINYL ALCOHOL OPHT DROPS 15 ML BOTTLE EACHEYE SCH ×3 (09:22→16:06)
[2023-06-08] MEDS: ESCITALOPRAM OXALATE 10 MG TABLET GT SCH (09:22)
[2023-06-08] MEDS: COAL TAR TOP SCH (09:22)
[2023-06-08] MEDS: REMEDY ESSENTIAL ZINC PASTE 113 GM TP SCH ×2 (09:23→21:17)
[2023-06-08 11:21] VITALS: O2SAT 99
[2023-06-08] MEDS: GABAPENTIN 100 MG CAPSULE GT SCH (16:07)
[2023-06-08] MEDS: ACETAMINOPHEN 650 MG/20 ML UDC- SA PATIENTS-PAIN ONLY GT PRN (16:08)
[2023-06-08] MEDS: JEVITY 1.2 1000 ML LIQUID GT PRN (17:17)
[2023-06-08 19:47] VITALS: O2SAT 98
[2023-06-08 20:00] VITALS: TEMP 98
[2023-06-08] MEDS: OMEGA-3 FATTY ACIDS/FISH OIL CAPSULE GT SCH (21:16)
[2023-06-08] MEDS: NUTRISOURCE FIBER 4 GM PACKET GT SCH (21:17)
[2023-06-08] MEDS: RIVAROXABAN 15 MG TABLET GT SCH (21:17)
[2023-06-08] MEDS: PROTEIN SUPPLEMENT (PROSTAT) 30 ML LIQUID GT SCH (21:17)
[2023-06-08] MEDS: CRANBERRY 500 MG GT SCH (21:17)
[2023-06-08] MEDS: MAGNESIUM COMPLEX GT SCH (21:17)
[2023-06-09] MEDS: BACLOFEN 10 MG TABLET GT SCH ×4 (00:22→18:58)
[2023-06-09] MEDS: MULTIVIT, IRON, MIN NO. 8, FA TABLET GT SCH (05:50)
[2023-06-09] MEDS: OMEPRAZOLE 20 MG CAPSULE.DR GT SCH (05:50)
[2023-06-09 07:26] VITALS: TEMP 97.7
[2023-06-09 09:15] VITALS: O2SAT 99
[2023-06-09] MEDS: HYDROGEN PEROXIDE 3% 118 ML BOTTLE TP SCH ×2 (09:15→19:29)
[2023-06-09] MEDS: POLYVINYL ALCOHOL OPHT DROPS 15 ML BOTTLE EACHEYE SCH ×3 (09:54→16:45)
[2023-06-09] MEDS: DOCUSATE SODIUM 100 MG/10 ML LIQUID UDC GT SCH (09:55)
[2023-06-09] MEDS: busPIRone 10 MG TABLET GT SCH ×3 (09:55→16:45)
[2023-06-09] MEDS: VALPROIC ACID 250 MG/5 ML LIQUID UDC GT SCH ×4 (09:55→20:31)
[2023-06-09] MEDS: ESCITALOPRAM OXALATE 10 MG TABLET GT SCH (09:56)
[2023-06-09] MEDS: levETIRAcetam 500 MG/5 ML LIQUID UDC GT SCH ×2 (09:56→20:31)
[2023-06-09] MEDS: ACIDOPHILUS/BULGARICUS CHEW TAB GT SCH ×2 (09:56→20:31)
[2023-06-09] MEDS: REMEDY ESSENTIAL ZINC PASTE 113 GM TP SCH ×2 (09:57→20:32)
[2023-06-09] MEDS: POTASSIUM CHLORIDE 40 MEQ/30 ML LIQUID UDC GT SCH (09:57)
[2023-06-09] MEDS: MIRALAX 17 GM POWD.PACK GT SCH (09:57)
[2023-06-09] MEDS: NEOMY/BACITRA/POLYMYXIN B OINT UD PACKET TP SCH ×3 (09:57→20:32)
[2023-06-09] MEDS: GABAPENTIN 100 MG CAPSULE GT SCH (16:47)
[2023-06-09] MEDS: JEVITY 1.2 1000 ML LIQUID GT PRN (18:59)
[2023-06-09 20:00] VITALS: TEMP 97.6
[2023-06-09] MEDS: OMEGA-3 FATTY ACIDS/FISH OIL CAPSULE GT SCH (20:31)
[2023-06-09] MEDS: PROTEIN SUPPLEMENT (PROSTAT) 30 ML LIQUID GT SCH (20:31)
[2023-06-09] MEDS: CRANBERRY 500 MG GT SCH (20:31)
[2023-06-09] MEDS: NUTRISOURCE FIBER 4 GM PACKET GT SCH (20:31)
[2023-06-09] MEDS: MAGNESIUM COMPLEX GT SCH (20:31)
[2023-06-09] MEDS: RIVAROXABAN 15 MG TABLET GT SCH (20:32)
[2023-06-09 23:18] VITALS: O2SAT 97
[2023-06-10] MEDS: OMEPRAZOLE 20 MG CAPSULE.DR GT SCH (05:40)
[2023-06-10] MEDS: BACLOFEN 10 MG TABLET GT SCH ×5 (05:40→23:12)
[2023-06-10] MEDS: MULTIVIT, IRON, MIN NO. 8, FA TABLET GT SCH (05:41)
[2023-06-10 07:31] VITALS: TEMP 97.7
[2023-06-10 09:00] VITALS: O2SAT 99
[2023-06-10] MEDS: HYDROGEN PEROXIDE 3% 118 ML BOTTLE TP SCH ×2 (09:00→21:59)
[2023-06-10] MEDS: ACIDOPHILUS/BULGARICUS CHEW TAB GT SCH ×2 (09:05→20:40)
[2023-06-10] MEDS: levETIRAcetam 500 MG/5 ML LIQUID UDC GT SCH ×2 (09:05→20:40)
[2023-06-10] MEDS: MIRALAX 17 GM POWD.PACK GT SCH (09:05)
[2023-06-10] MEDS: NEOMY/BACITRA/POLYMYXIN B OINT UD PACKET TP SCH ×3 (09:05→20:41)
[2023-06-10] MEDS: DOCUSATE SODIUM 100 MG/10 ML LIQUID UDC GT SCH (09:05)
[2023-06-10] MEDS: busPIRone 10 MG TABLET GT SCH ×3 (09:05→16:36)
[2023-06-10] MEDS: REMEDY ESSENTIAL ZINC PASTE 113 GM TP SCH ×2 (09:05→20:41)
[2023-06-10] MEDS: VALPROIC ACID 250 MG/5 ML LIQUID UDC GT SCH ×4 (09:05→20:40)
[2023-06-10] MEDS: ESCITALOPRAM OXALATE 10 MG TABLET GT SCH (09:05)
[2023-06-10] MEDS: POLYVINYL ALCOHOL OPHT DROPS 15 ML BOTTLE EACHEYE SCH ×3 (09:05→16:35)
[2023-06-10] MEDS: POTASSIUM CHLORIDE 40 MEQ/30 ML LIQUID UDC GT SCH (09:05)
[2023-06-10] MEDS: GABAPENTIN 100 MG CAPSULE GT SCH (16:36)
[2023-06-10 19:32] VITALS: O2SAT 99
[2023-06-10 20:00] VITALS: TEMP 97.8
[2023-06-10] MEDS: CRANBERRY 500 MG GT SCH (20:40)
[2023-06-10] MEDS: OMEGA-3 FATTY ACIDS/FISH OIL CAPSULE GT SCH (20:40)
[2023-06-10] MEDS: MAGNESIUM COMPLEX GT SCH (20:40)
[2023-06-10] MEDS: NUTRISOURCE FIBER 4 GM PACKET GT SCH (20:40)
[2023-06-10] MEDS: RIVAROXABAN 15 MG TABLET GT SCH (20:41)
[2023-06-10] MEDS: PROTEIN SUPPLEMENT (PROSTAT) 30 ML LIQUID GT SCH (20:41)
[2023-06-10] MEDS: MELATONIN 3MG TABLET GT PRN (20:42)
[2023-06-10] MEDS: JEVITY 1.2 1000 ML LIQUID GT PRN (20:42)
[2023-06-11] MEDS: BACLOFEN 10 MG TABLET GT SCH ×4 (06:02→23:50)
[2023-06-11] MEDS: OMEPRAZOLE 20 MG CAPSULE.DR GT SCH (06:02)
[2023-06-11] MEDS: MULTIVIT, IRON, MIN NO. 8, FA TABLET GT SCH (06:02)
[2023-06-11] MEDS: HYDROGEN PEROXIDE 3% 118 ML BOTTLE TP SCH ×2 (09:00→19:09)
[2023-06-11] MEDS: DOCUSATE SODIUM 100 MG/10 ML LIQUID UDC GT SCH (09:54)
[2023-06-11] MEDS: busPIRone 10 MG TABLET GT SCH ×3 (09:54→17:03)
[2023-06-11] MEDS: POLYVINYL ALCOHOL OPHT DROPS 15 ML BOTTLE EACHEYE SCH ×3 (09:54→17:03)
[2023-06-11] MEDS: ACIDOPHILUS/BULGARICUS CHEW TAB GT SCH ×2 (09:55→20:35)
[2023-06-11] MEDS: ESCITALOPRAM OXALATE 10 MG TABLET GT SCH (09:55)
[2023-06-11] MEDS: levETIRAcetam 500 MG/5 ML LIQUID UDC GT SCH ×2 (09:55→20:35)
[2023-06-11] MEDS: VALPROIC ACID 250 MG/5 ML LIQUID UDC GT SCH ×4 (09:55→20:34)
[2023-06-11] MEDS: MIRALAX 17 GM POWD.PACK GT SCH (09:56)
[2023-06-11] MEDS: POTASSIUM CHLORIDE 40 MEQ/30 ML LIQUID UDC GT SCH (09:56)
[2023-06-11] MEDS: NEOMY/BACITRA/POLYMYXIN B OINT UD PACKET TP SCH ×3 (09:57→20:37)
[2023-06-11] MEDS: COAL TAR TOP SCH (09:57)
[2023-06-11] MEDS: REMEDY ESSENTIAL ZINC PASTE 113 GM TP SCH ×2 (09:57→20:37)
[2023-06-11 10:49] VITALS: TEMP 97.1
[2023-06-11 10:50] VITALS: O2SAT 99
[2023-06-11] MEDS: GABAPENTIN 100 MG CAPSULE GT SCH (17:03)
[2023-06-11 19:48] VITALS: TEMP 98
[2023-06-11 20:35] VITALS: O2SAT 97
[2023-06-11] MEDS: OMEGA-3 FATTY ACIDS/FISH OIL CAPSULE GT SCH (20:35)
[2023-06-11] MEDS: MAGNESIUM COMPLEX GT SCH (20:36)
[2023-06-11] MEDS: CRANBERRY 500 MG GT SCH (20:36)
[2023-06-11] MEDS: PROTEIN SUPPLEMENT (PROSTAT) 30 ML LIQUID GT SCH (20:37)
[2023-06-11] MEDS: NUTRISOURCE FIBER 4 GM PACKET GT SCH (20:37)
[2023-06-11] MEDS: MELATONIN 3MG TABLET GT PRN (20:40)
[2023-06-11] MEDS: RIVAROXABAN 15 MG TABLET GT SCH (22:34)
[2023-06-12] MEDS: LORAZEPAM 0.5 MG TABLET PO PRN ×2 (00:45→23:00)
[2023-06-12] MEDS: MULTIVIT, IRON, MIN NO. 8, FA TABLET GT SCH (05:28)
[2023-06-12] MEDS: BACLOFEN 10 MG TABLET GT SCH ×4 (05:28→23:26)
[2023-06-12] MEDS: OMEPRAZOLE 20 MG CAPSULE.DR GT SCH (05:28)
[2023-06-12 07:40] VITALS: TEMP 98.8
[2023-06-12] MEDS: HYDROGEN PEROXIDE 3% 118 ML BOTTLE TP SCH ×2 (08:09→21:13)
[2023-06-12] MEDS: VALPROIC ACID 250 MG/5 ML LIQUID UDC GT SCH ×4 (09:31→20:15)
[2023-06-12] MEDS: MIRALAX 17 GM POWD.PACK GT SCH (09:31)
[2023-06-12] MEDS: POLYVINYL ALCOHOL OPHT DROPS 15 ML BOTTLE EACHEYE SCH ×3 (09:31→17:08)
[2023-06-12] MEDS: DOCUSATE SODIUM 100 MG/10 ML LIQUID UDC GT SCH (09:31)
[2023-06-12] MEDS: busPIRone 10 MG TABLET GT SCH ×3 (09:31→17:09)
[2023-06-12] MEDS: levETIRAcetam 500 MG/5 ML LIQUID UDC GT SCH ×2 (09:31→20:16)
[2023-06-12] MEDS: ACIDOPHILUS/BULGARICUS CHEW TAB GT SCH ×2 (09:31→20:16)
[2023-06-12] MEDS: REMEDY ESSENTIAL ZINC PASTE 113 GM TP SCH ×2 (09:31→21:00)
[2023-06-12] MEDS: ESCITALOPRAM OXALATE 10 MG TABLET GT SCH (09:31)
[2023-06-12] MEDS: POTASSIUM CHLORIDE 40 MEQ/30 ML LIQUID UDC GT SCH (09:31)
[2023-06-12] MEDS: NEOMY/BACITRA/POLYMYXIN B OINT UD PACKET TP SCH ×3 (09:32→21:00)
[2023-06-12 10:40] VITALS: O2SAT 99
[2023-06-12] MEDS: GABAPENTIN 100 MG CAPSULE GT SCH (17:09)
[2023-06-12 20:05] VITALS: O2SAT 97
[2023-06-12 20:15] VITALS: TEMP 97.4
[2023-06-12] MEDS: OMEGA-3 FATTY ACIDS/FISH OIL CAPSULE GT SCH (20:16)
[2023-06-12] MEDS: CRANBERRY 500 MG GT SCH (20:17)
[2023-06-12] MEDS: MAGNESIUM COMPLEX GT SCH (20:17)
[2023-06-12] MEDS: PROTEIN SUPPLEMENT (PROSTAT) 30 ML LIQUID GT SCH (20:18)
[2023-06-12] MEDS: NUTRISOURCE FIBER 4 GM PACKET GT SCH (20:18)
[2023-06-12] MEDS: RIVAROXABAN 15 MG TABLET GT SCH (20:21)
[2023-06-12] MEDS: MELATONIN 3MG TABLET GT PRN (20:22)
[2023-06-13] MEDS: MULTIVIT, IRON, MIN NO. 8, FA TABLET GT SCH (06:01)
[2023-06-13] MEDS: OMEPRAZOLE 20 MG CAPSULE.DR GT SCH (06:01)
[2023-06-13] MEDS: BACLOFEN 10 MG TABLET GT SCH ×3 (06:01→17:16)
[2023-06-13] MEDS: HYDROGEN PEROXIDE 3% 118 ML BOTTLE TP SCH ×2 (09:00→21:17)
[2023-06-13] MEDS: ACIDOPHILUS/BULGARICUS CHEW TAB GT SCH ×2 (09:10→21:00)
[2023-06-13] MEDS: DOCUSATE SODIUM 100 MG/10 ML LIQUID UDC GT SCH (09:10)
[2023-06-13] MEDS: POTASSIUM CHLORIDE 40 MEQ/30 ML LIQUID UDC GT SCH (09:10)
[2023-06-13] MEDS: VALPROIC ACID 250 MG/5 ML LIQUID UDC GT SCH ×4 (09:10→20:29)
[2023-06-13] MEDS: REMEDY ESSENTIAL ZINC PASTE 113 GM TP SCH ×2 (09:10→20:29)
[2023-06-13] MEDS: MIRALAX 17 GM POWD.PACK GT SCH (09:10)
[2023-06-13] MEDS: levETIRAcetam 500 MG/5 ML LIQUID UDC GT SCH ×2 (09:10→20:29)
[2023-06-13] MEDS: ESCITALOPRAM OXALATE 10 MG TABLET GT SCH (09:10)
[2023-06-13] MEDS: NEOMY/BACITRA/POLYMYXIN B OINT UD PACKET TP SCH ×3 (09:10→20:29)
[2023-06-13] MEDS: POLYVINYL ALCOHOL OPHT DROPS 15 ML BOTTLE EACHEYE SCH ×3 (09:10→17:16)
[2023-06-13] MEDS: busPIRone 10 MG TABLET GT SCH ×3 (09:10→17:16)
[2023-06-13 10:15] VITALS: O2SAT 99
[2023-06-13 11:08] VITALS: TEMP 97.2
[2023-06-13] MEDS: GABAPENTIN 100 MG CAPSULE GT SCH (17:16)
[2023-06-13 19:42] VITALS: O2SAT 97
[2023-06-13 19:55] VITALS: TEMP 97
[2023-06-13] MEDS: PROTEIN SUPPLEMENT (PROSTAT) 30 ML LIQUID GT SCH (20:29)
[2023-06-13] MEDS: CRANBERRY 500 MG GT SCH (20:29)
[2023-06-13] MEDS: MELATONIN 3MG TABLET GT PRN (20:30)
[2023-06-13] MEDS: NUTRISOURCE FIBER 4 GM PACKET GT SCH (21:00)
[2023-06-13] MEDS: MAGNESIUM COMPLEX GT SCH (21:00)
[2023-06-13] MEDS: RIVAROXABAN 15 MG TABLET GT SCH (21:00)
[2023-06-13] MEDS: OMEGA-3 FATTY ACIDS/FISH OIL CAPSULE GT SCH (21:00)
[2023-06-14] MEDS: BACLOFEN 10 MG TABLET GT SCH ×5 (00:22→23:10)
[2023-06-14] MEDS: OMEPRAZOLE 20 MG CAPSULE.DR GT SCH (06:30)
[2023-06-14] MEDS: MULTIVIT, IRON, MIN NO. 8, FA TABLET GT SCH (06:31)
[2023-06-14] MEDS: HYDROGEN PEROXIDE 3% 118 ML BOTTLE TP SCH ×2 (07:19→21:25)
[2023-06-14 07:35] VITALS: TEMP 97.6
[2023-06-14] MEDS: POLYVINYL ALCOHOL OPHT DROPS 15 ML BOTTLE EACHEYE SCH ×3 (08:34→16:59)
[2023-06-14] MEDS: DOCUSATE SODIUM 100 MG/10 ML LIQUID UDC GT SCH (08:34)
[2023-06-14] MEDS: busPIRone 10 MG TABLET GT SCH ×3 (08:34→16:59)
[2023-06-14] MEDS: levETIRAcetam 500 MG/5 ML LIQUID UDC GT SCH ×2 (08:35→21:00)
[2023-06-14] MEDS: VALPROIC ACID 250 MG/5 ML LIQUID UDC GT SCH ×4 (08:35→21:00)
[2023-06-14] MEDS: ESCITALOPRAM OXALATE 10 MG TABLET GT SCH (08:35)
[2023-06-14] MEDS: ACIDOPHILUS/BULGARICUS CHEW TAB GT SCH ×2 (08:35→21:00)
[2023-06-14] MEDS: POTASSIUM CHLORIDE 40 MEQ/30 ML LIQUID UDC GT SCH (08:36)
[2023-06-14] MEDS: NEOMY/BACITRA/POLYMYXIN B OINT UD PACKET TP SCH ×3 (08:36→21:00)
[2023-06-14] MEDS: REMEDY ESSENTIAL ZINC PASTE 113 GM TP SCH ×2 (08:36→21:00)
[2023-06-14] MEDS: MIRALAX 17 GM POWD.PACK GT SCH (08:36)
[2023-06-14 10:33] VITALS: O2SAT 99
[2023-06-14] MEDS: GABAPENTIN 100 MG CAPSULE GT SCH (17:00)
[2023-06-14 20:00] VITALS: TEMP 98
[2023-06-14 20:05] VITALS: O2SAT 97
[2023-06-14] MEDS: NUTRISOURCE FIBER 4 GM PACKET GT SCH (21:00)
[2023-06-14] MEDS: MAGNESIUM COMPLEX GT SCH (21:00)
[2023-06-14] MEDS: PROTEIN SUPPLEMENT (PROSTAT) 30 ML LIQUID GT SCH (21:00)
[2023-06-14] MEDS: CRANBERRY 500 MG GT SCH (21:00)
[2023-06-14] MEDS: OMEGA-3 FATTY ACIDS/FISH OIL CAPSULE GT SCH (21:00)
[2023-06-14] MEDS: RIVAROXABAN 15 MG TABLET GT SCH (21:00)
[2023-06-14] MEDS: MELATONIN 3MG TABLET GT PRN (23:11)
[2023-06-15] MEDS: OMEPRAZOLE 20 MG CAPSULE.DR GT SCH (06:27)
[2023-06-15] MEDS: MULTIVIT, IRON, MIN NO. 8, FA TABLET GT SCH (06:27)
[2023-06-15] MEDS: BACLOFEN 10 MG TABLET GT SCH ×3 (06:27→17:05)
[2023-06-15] MEDS: HYDROGEN PEROXIDE 3% 118 ML BOTTLE TP SCH ×2 (07:39→21:00)
[2023-06-15 09:11] VITALS: TEMP 97.1
[2023-06-15] MEDS: POLYVINYL ALCOHOL OPHT DROPS 15 ML BOTTLE EACHEYE SCH ×3 (09:43→16:26)
[2023-06-15] MEDS: busPIRone 10 MG TABLET GT SCH ×3 (09:44→16:27)
[2023-06-15] MEDS: DOCUSATE SODIUM 100 MG/10 ML LIQUID UDC GT SCH (09:45)
[2023-06-15] MEDS: VALPROIC ACID 250 MG/5 ML LIQUID UDC GT SCH ×4 (09:45→20:34)
[2023-06-15] MEDS: levETIRAcetam 500 MG/5 ML LIQUID UDC GT SCH ×2 (09:46→20:28)
[2023-06-15] MEDS: ACIDOPHILUS/BULGARICUS CHEW TAB GT SCH ×2 (09:46→20:27)
[2023-06-15] MEDS: POTASSIUM CHLORIDE 40 MEQ/30 ML LIQUID UDC GT SCH (09:47)
[2023-06-15] MEDS: ESCITALOPRAM OXALATE 10 MG TABLET GT SCH (09:47)
[2023-06-15] MEDS: MIRALAX 17 GM POWD.PACK GT SCH (09:47)
[2023-06-15] MEDS: COAL TAR TOP SCH (09:47)
[2023-06-15] MEDS: JEVITY 1.2 1000 ML LIQUID GT PRN (09:48)
[2023-06-15] MEDS: REMEDY ESSENTIAL ZINC PASTE 113 GM TP SCH ×2 (09:48→20:31)
[2023-06-15] MEDS: NEOMY/BACITRA/POLYMYXIN B OINT UD PACKET TP SCH ×3 (09:48→20:31)
[2023-06-15 10:40] VITALS: O2SAT 99
[2023-06-15] MEDS: ACETAMINOPHEN 650 MG/20 ML UDC- SA PATIENTS-PAIN ONLY GT PRN (15:12)
[2023-06-15] MEDS: GABAPENTIN 100 MG CAPSULE GT SCH (16:27)
[2023-06-15 20:00] VITALS: TEMP 98.3
[2023-06-15] MEDS: OMEGA-3 FATTY ACIDS/FISH OIL CAPSULE GT SCH (20:22)
[2023-06-15] MEDS: CRANBERRY 500 MG GT SCH (20:28)
[2023-06-15] MEDS: MAGNESIUM COMPLEX GT SCH (20:29)
[2023-06-15] MEDS: NUTRISOURCE FIBER 4 GM PACKET GT SCH (20:29)
[2023-06-15] MEDS: RIVAROXABAN 15 MG TABLET GT SCH (20:31)
[2023-06-15] MEDS: PROTEIN SUPPLEMENT (PROSTAT) 30 ML LIQUID GT SCH (20:31)
[2023-06-15] MEDS: MELATONIN 3MG TABLET GT PRN (20:32)
[2023-06-16 04:09] VITALS: O2SAT 98
[2023-06-16] MEDS: MULTIVIT, IRON, MIN NO. 8, FA TABLET GT SCH (05:25)
[2023-06-16] MEDS: OMEPRAZOLE 20 MG CAPSULE.DR GT SCH (05:25)
[2023-06-16] MEDS: BACLOFEN 10 MG TABLET GT SCH ×4 (05:25→17:13)
[2023-06-16] MEDS: busPIRone 10 MG TABLET GT SCH ×3 (08:25→17:12)
[2023-06-16] MEDS: DOCUSATE SODIUM 100 MG/10 ML LIQUID UDC GT SCH (08:25)
[2023-06-16] MEDS: POLYVINYL ALCOHOL OPHT DROPS 15 ML BOTTLE EACHEYE SCH ×3 (08:25→17:12)
[2023-06-16] MEDS: VALPROIC ACID 250 MG/5 ML LIQUID UDC GT SCH ×4 (08:26→20:56)
[2023-06-16] MEDS: REMEDY ESSENTIAL ZINC PASTE 113 GM TP SCH ×2 (08:27→20:59)
[2023-06-16] MEDS: ESCITALOPRAM OXALATE 10 MG TABLET GT SCH (08:27)
[2023-06-16] MEDS: levETIRAcetam 500 MG/5 ML LIQUID UDC GT SCH ×2 (08:27→20:57)
[2023-06-16] MEDS: NEOMY/BACITRA/POLYMYXIN B OINT UD PACKET TP SCH (08:27)
[2023-06-16] MEDS: ACIDOPHILUS/BULGARICUS CHEW TAB GT SCH ×2 (08:27→20:57)
[2023-06-16] MEDS: MIRALAX 17 GM POWD.PACK GT SCH (08:27)
[2023-06-16] MEDS: POTASSIUM CHLORIDE 40 MEQ/30 ML LIQUID UDC GT SCH (08:27)
[2023-06-16] MEDS: HYDROGEN PEROXIDE 3% 118 ML BOTTLE TP SCH ×2 (08:45→22:51)
[2023-06-16 11:06] VITALS: TEMP 97.3
[2023-06-16] MEDS: JEVITY 1.2 1000 ML LIQUID GT PRN (11:57)
[2023-06-16 16:27] VITALS: O2SAT 98
[2023-06-16] MEDS: GABAPENTIN 100 MG CAPSULE GT SCH (17:13)
[2023-06-16 19:58] VITALS: O2SAT 99
[2023-06-16 20:00] VITALS: TEMP 98.5
[2023-06-16] MEDS: OMEGA-3 FATTY ACIDS/FISH OIL CAPSULE GT SCH (20:56)
[2023-06-16] MEDS: CRANBERRY 500 MG GT SCH (20:58)
[2023-06-16] MEDS: NUTRISOURCE FIBER 4 GM PACKET GT SCH (20:59)
[2023-06-16] MEDS: PROTEIN SUPPLEMENT (PROSTAT) 30 ML LIQUID GT SCH (20:59)
[2023-06-16] MEDS: MAGNESIUM COMPLEX GT SCH (20:59)
[2023-06-16] MEDS: RIVAROXABAN 15 MG TABLET GT SCH (20:59)
[2023-06-16] MEDS: MELATONIN 3MG TABLET GT PRN (21:11)
[2023-06-17] MEDS: BACLOFEN 10 MG TABLET GT SCH ×4 (05:58→17:15)
[2023-06-17] MEDS: MULTIVIT, IRON, MIN NO. 8, FA TABLET GT SCH (05:58)
[2023-06-17] MEDS: OMEPRAZOLE 20 MG CAPSULE.DR GT SCH (05:58)
[2023-06-17 07:10] VITALS: O2SAT 98
[2023-06-17 07:43] VITALS: TEMP 97.6
[2023-06-17] MEDS: busPIRone 10 MG TABLET GT SCH ×3 (08:10→17:14)
[2023-06-17] MEDS: POLYVINYL ALCOHOL OPHT DROPS 15 ML BOTTLE EACHEYE SCH ×3 (08:10→17:14)
[2023-06-17] MEDS: DOCUSATE SODIUM 100 MG/10 ML LIQUID UDC GT SCH (08:10)
[2023-06-17] MEDS: ACIDOPHILUS/BULGARICUS CHEW TAB GT SCH ×2 (08:11→20:16)
[2023-06-17] MEDS: VALPROIC ACID 250 MG/5 ML LIQUID UDC GT SCH ×4 (08:11→20:16)
[2023-06-17] MEDS: levETIRAcetam 500 MG/5 ML LIQUID UDC GT SCH ×2 (08:12→20:19)
[2023-06-17] MEDS: ESCITALOPRAM OXALATE 10 MG TABLET GT SCH (08:13)
[2023-06-17] MEDS: MIRALAX 17 GM POWD.PACK GT SCH (08:13)
[2023-06-17] MEDS: REMEDY ESSENTIAL ZINC PASTE 113 GM TP SCH ×2 (08:14→20:22)
[2023-06-17] MEDS: POTASSIUM CHLORIDE 40 MEQ/30 ML LIQUID UDC GT SCH (08:14)
[2023-06-17] MEDS: NEOMY/BACITRA/POLYMYXIN B OINT UD PACKET TP SCH (08:14)
[2023-06-17] MEDS: HYDROGEN PEROXIDE 3% 118 ML BOTTLE TP SCH ×2 (09:31→21:53)
[2023-06-17] MEDS: JEVITY 1.2 1000 ML LIQUID GT PRN (14:14)
[2023-06-17 15:00] VITALS: O2SAT 98
[2023-06-17] MEDS: GABAPENTIN 100 MG CAPSULE GT SCH (17:15)
[2023-06-17 19:36] VITALS: O2SAT 99
[2023-06-17 20:00] VITALS: TEMP 98.3
[2023-06-17] MEDS: OMEGA-3 FATTY ACIDS/FISH OIL CAPSULE GT SCH (20:16)
[2023-06-17] MEDS: CRANBERRY 500 MG GT SCH (20:19)
[2023-06-17] MEDS: NUTRISOURCE FIBER 4 GM PACKET GT SCH (20:20)
[2023-06-17] MEDS: MAGNESIUM COMPLEX GT SCH (20:20)
[2023-06-17] MEDS: PROTEIN SUPPLEMENT (PROSTAT) 30 ML LIQUID GT SCH (20:21)
[2023-06-17] MEDS: RIVAROXABAN 15 MG TABLET GT SCH (20:21)
[2023-06-17] MEDS: MELATONIN 3MG TABLET GT PRN (20:24)
[2023-06-18] MEDS: ACETAMINOPHEN 650 MG/20 ML UDC- SA PATIENTS-PAIN ONLY GT PRN (04:07)
[2023-06-18] MEDS: OMEPRAZOLE 20 MG CAPSULE.DR GT SCH (05:25)
[2023-06-18] MEDS: MULTIVIT, IRON, MIN NO. 8, FA TABLET GT SCH (05:25)
[2023-06-18] MEDS: BACLOFEN 10 MG TABLET GT SCH ×4 (05:25→17:05)
[2023-06-18 07:51] VITALS: TEMP 97.1
[2023-06-18 08:32] VITALS: O2SAT 98
[2023-06-18] MEDS: HYDROGEN PEROXIDE 3% 118 ML BOTTLE TP SCH ×2 (08:32→21:51)
[2023-06-18] MEDS: levETIRAcetam 500 MG/5 ML LIQUID UDC GT SCH ×2 (09:19→20:49)
[2023-06-18] MEDS: ESCITALOPRAM OXALATE 10 MG TABLET GT SCH (09:19)
[2023-06-18] MEDS: VALPROIC ACID 250 MG/5 ML LIQUID UDC GT SCH ×4 (09:19→20:49)
[2023-06-18] MEDS: ACIDOPHILUS/BULGARICUS CHEW TAB GT SCH ×2 (09:19→20:49)
[2023-06-18] MEDS: MIRALAX 17 GM POWD.PACK GT SCH (09:19)
[2023-06-18] MEDS: POLYVINYL ALCOHOL OPHT DROPS 15 ML BOTTLE EACHEYE SCH ×3 (09:19→17:04)
[2023-06-18] MEDS: POTASSIUM CHLORIDE 40 MEQ/30 ML LIQUID UDC GT SCH (09:19)
[2023-06-18] MEDS: busPIRone 10 MG TABLET GT SCH ×3 (09:19→17:05)
[2023-06-18] MEDS: DOCUSATE SODIUM 100 MG/10 ML LIQUID UDC GT SCH (09:19)
[2023-06-18] MEDS: COAL TAR TOP SCH (09:19)
[2023-06-18] MEDS: NEOMY/BACITRA/POLYMYXIN B OINT UD PACKET TP SCH (09:20)
[2023-06-18] MEDS: REMEDY ESSENTIAL ZINC PASTE 113 GM TP SCH ×2 (09:20→20:51)
[2023-06-18] MEDS: GABAPENTIN 300 MG CAPSULE GT SCH (17:05)
[2023-06-18] MEDS: JEVITY 1.2 1000 ML LIQUID GT PRN (19:10)
[2023-06-18 20:00] VITALS: TEMP 98.2
[2023-06-18 20:25] VITALS: O2SAT 99
[2023-06-18] MEDS: OMEGA-3 FATTY ACIDS/FISH OIL CAPSULE GT SCH (20:49)
[2023-06-18] MEDS: CRANBERRY 500 MG GT SCH (20:49)
[2023-06-18] MEDS: PROTEIN SUPPLEMENT (PROSTAT) 30 ML LIQUID GT SCH (20:50)
[2023-06-18] MEDS: MAGNESIUM COMPLEX GT SCH (20:50)
[2023-06-18] MEDS: NUTRISOURCE FIBER 4 GM PACKET GT SCH (20:50)
[2023-06-18] MEDS: RIVAROXABAN 15 MG TABLET GT SCH (20:51)
[2023-06-18] MEDS: MELATONIN 3MG TABLET GT PRN (22:00)
[2023-06-19] MEDS: BACLOFEN 10 MG TABLET GT SCH ×5 (00:06→23:14)
[2023-06-19] MEDS: MULTIVIT, IRON, MIN NO. 8, FA TABLET GT SCH (05:01)
[2023-06-19] MEDS: OMEPRAZOLE 20 MG CAPSULE.DR GT SCH (05:01)
[2023-06-19] MEDS: HYDROGEN PEROXIDE 3% 118 ML BOTTLE TP SCH ×2 (07:18→21:03)
[2023-06-19 07:44] VITALS: TEMP 97
[2023-06-19 08:20] VITALS: O2SAT 98
[2023-06-19] MEDS: VALPROIC ACID 250 MG/5 ML LIQUID UDC GT SCH ×4 (08:45→21:17)
[2023-06-19] MEDS: levETIRAcetam 500 MG/5 ML LIQUID UDC GT SCH ×2 (08:45→21:13)
[2023-06-19] MEDS: POTASSIUM CHLORIDE 40 MEQ/30 ML LIQUID UDC GT SCH (08:45)
[2023-06-19] MEDS: ESCITALOPRAM OXALATE 10 MG TABLET GT SCH (08:45)
[2023-06-19] MEDS: busPIRone 10 MG TABLET GT SCH ×3 (08:45→17:00)
[2023-06-19] MEDS: DOCUSATE SODIUM 100 MG/10 ML LIQUID UDC GT SCH (08:45)
[2023-06-19] MEDS: REMEDY ESSENTIAL ZINC PASTE 113 GM TP SCH ×2 (08:45→21:14)
[2023-06-19] MEDS: MIRALAX 17 GM POWD.PACK GT SCH (08:45)
[2023-06-19] MEDS: NEOMY/BACITRA/POLYMYXIN B OINT UD PACKET TP SCH (08:45)
[2023-06-19] MEDS: POLYVINYL ALCOHOL OPHT DROPS 15 ML BOTTLE EACHEYE SCH ×3 (08:45→17:00)
[2023-06-19] MEDS: ACIDOPHILUS/BULGARICUS CHEW TAB GT SCH ×2 (08:45→21:12)
[2023-06-19] MEDS: GABAPENTIN 300 MG CAPSULE GT SCH (17:00)
[2023-06-19 20:00] VITALS: TEMP 97.8
[2023-06-19 20:10] VITALS: O2SAT 99
[2023-06-19] MEDS: OMEGA-3 FATTY ACIDS/FISH OIL CAPSULE GT SCH (21:12)
[2023-06-19] MEDS: PROTEIN SUPPLEMENT (PROSTAT) 30 ML LIQUID GT SCH (21:13)
[2023-06-19] MEDS: CRANBERRY 500 MG GT SCH (21:13)
[2023-06-19] MEDS: MAGNESIUM COMPLEX GT SCH (21:13)
[2023-06-19] MEDS: NUTRISOURCE FIBER 4 GM PACKET GT SCH (21:13)
[2023-06-19] MEDS: MELATONIN 3MG TABLET GT PRN (21:17)
[2023-06-19] MEDS: RIVAROXABAN 15 MG TABLET GT SCH (21:52)
[2023-06-20] MEDS: OMEPRAZOLE 20 MG CAPSULE.DR GT SCH (05:37)
[2023-06-20] MEDS: BACLOFEN 10 MG TABLET GT SCH ×4 (05:37→23:20)
[2023-06-20] MEDS: MULTIVIT, IRON, MIN NO. 8, FA TABLET GT SCH (05:37)
[2023-06-20] MEDS: levETIRAcetam 500 MG/5 ML LIQUID UDC GT SCH ×2 (09:00→20:05)
[2023-06-20] MEDS: NEOMY/BACITRA/POLYMYXIN B OINT UD PACKET TP SCH (09:00)
[2023-06-20] MEDS: ESCITALOPRAM OXALATE 10 MG TABLET GT SCH (09:00)
[2023-06-20] MEDS: VALPROIC ACID 250 MG/5 ML LIQUID UDC GT SCH ×4 (09:00→20:04)
[2023-06-20] MEDS: busPIRone 10 MG TABLET GT SCH ×3 (09:00→16:45)
[2023-06-20] MEDS: POTASSIUM CHLORIDE 40 MEQ/30 ML LIQUID UDC GT SCH (09:00)
[2023-06-20] MEDS: POLYVINYL ALCOHOL OPHT DROPS 15 ML BOTTLE EACHEYE SCH ×3 (09:00→16:43)
[2023-06-20] MEDS: ACIDOPHILUS/BULGARICUS CHEW TAB GT SCH ×2 (09:00→20:05)
[2023-06-20] MEDS: DOCUSATE SODIUM 100 MG/10 ML LIQUID UDC GT SCH (09:00)
[2023-06-20] MEDS: HYDROGEN PEROXIDE 3% 118 ML BOTTLE TP SCH ×2 (09:00→21:21)
[2023-06-20] MEDS: MIRALAX 17 GM POWD.PACK GT SCH (09:00)
[2023-06-20] MEDS: REMEDY ESSENTIAL ZINC PASTE 113 GM TP SCH ×2 (09:00→20:17)
[2023-06-20 09:28] VITALS: TEMP 97
[2023-06-20 14:08] VITALS: O2SAT 98
[2023-06-20] MEDS: GABAPENTIN 300 MG CAPSULE GT SCH (16:47)
[2023-06-20] MEDS: ACETAMINOPHEN 650 MG/20 ML UDC- SA PATIENTS-PAIN ONLY GT PRN (17:43)
[2023-06-20 19:40] VITALS: O2SAT 99
[2023-06-20] MEDS: OMEGA-3 FATTY ACIDS/FISH OIL CAPSULE GT SCH (20:05)
[2023-06-20] MEDS: CRANBERRY 500 MG GT SCH (20:06)
[2023-06-20] MEDS: MAGNESIUM COMPLEX GT SCH (20:15)
[2023-06-20] MEDS: PROTEIN SUPPLEMENT (PROSTAT) 30 ML LIQUID GT SCH (20:16)
[2023-06-20] MEDS: NUTRISOURCE FIBER 4 GM PACKET GT SCH (20:16)
[2023-06-20] MEDS: JEVITY 1.2 1000 ML LIQUID GT PRN (21:19)
[2023-06-20 21:33] VITALS: TEMP 98.4
[2023-06-20] MEDS: RIVAROXABAN 15 MG TABLET GT SCH (21:35)
[2023-06-21] MEDS: OMEPRAZOLE 20 MG CAPSULE.DR GT SCH (05:20)
[2023-06-21] MEDS: BACLOFEN 10 MG TABLET GT SCH ×3 (05:20→17:32)
[2023-06-21] MEDS: MULTIVIT, IRON, MIN NO. 8, FA TABLET GT SCH (05:20)
[2023-06-21 07:29] VITALS: TEMP 97.6
[2023-06-21] MEDS: HYDROGEN PEROXIDE 3% 118 ML BOTTLE TP SCH ×2 (08:28→19:13)
[2023-06-21] MEDS: ESCITALOPRAM OXALATE 10 MG TABLET GT SCH (08:35)
[2023-06-21] MEDS: ACIDOPHILUS/BULGARICUS CHEW TAB GT SCH ×2 (08:35→20:39)
[2023-06-21] MEDS: POLYVINYL ALCOHOL OPHT DROPS 15 ML BOTTLE EACHEYE SCH ×3 (08:35→17:32)
[2023-06-21] MEDS: busPIRone 10 MG TABLET GT SCH ×3 (08:35→17:32)
[2023-06-21] MEDS: POTASSIUM CHLORIDE 40 MEQ/30 ML LIQUID UDC GT SCH (08:35)
[2023-06-21] MEDS: levETIRAcetam 500 MG/5 ML LIQUID UDC GT SCH ×2 (08:35→20:39)
[2023-06-21] MEDS: DOCUSATE SODIUM 100 MG/10 ML LIQUID UDC GT SCH (08:35)
[2023-06-21] MEDS: MIRALAX 17 GM POWD.PACK GT SCH (08:35)
[2023-06-21] MEDS: NEOMY/BACITRA/POLYMYXIN B OINT UD PACKET TP SCH (08:35)
[2023-06-21] MEDS: VALPROIC ACID 250 MG/5 ML LIQUID UDC GT SCH ×4 (08:35→20:39)
[2023-06-21] MEDS: REMEDY ESSENTIAL ZINC PASTE 113 GM TP SCH ×2 (08:35→20:41)
[2023-06-21 16:02] VITALS: O2SAT 98
[2023-06-21] MEDS: GABAPENTIN 300 MG CAPSULE GT SCH (17:32)
[2023-06-21] MEDS: NUTRISOURCE FIBER 4 GM PACKET GT SCH (20:39)
[2023-06-21] MEDS: MAGNESIUM COMPLEX GT SCH (20:39)
[2023-06-21] MEDS: CRANBERRY 500 MG GT SCH (20:39)
[2023-06-21] MEDS: OMEGA-3 FATTY ACIDS/FISH OIL CAPSULE GT SCH (20:39)
[2023-06-21] MEDS: PROTEIN SUPPLEMENT (PROSTAT) 30 ML LIQUID GT SCH (20:39)
[2023-06-21] MEDS: RIVAROXABAN 15 MG TABLET GT SCH (20:40)
[2023-06-21 20:42] VITALS: TEMP 98.5
[2023-06-21 22:58] VITALS: O2SAT 99
[2023-06-22] MEDS: BACLOFEN 10 MG TABLET GT SCH ×5 (00:39→23:28)
[2023-06-22] MEDS: MULTIVIT, IRON, MIN NO. 8, FA TABLET GT SCH (05:17)
[2023-06-22] MEDS: OMEPRAZOLE 20 MG CAPSULE.DR GT SCH (05:17)
[2023-06-22 07:30] VITALS: TEMP 97.7
[2023-06-22] MEDS: POLYVINYL ALCOHOL OPHT DROPS 15 ML BOTTLE EACHEYE SCH ×3 (08:17→17:00)
[2023-06-22] MEDS: busPIRone 10 MG TABLET GT SCH ×3 (08:17→17:02)
[2023-06-22] MEDS: ACIDOPHILUS/BULGARICUS CHEW TAB GT SCH ×2 (08:18→20:29)
[2023-06-22] MEDS: DOCUSATE SODIUM 100 MG/10 ML LIQUID UDC GT SCH (08:18)
[2023-06-22] MEDS: VALPROIC ACID 250 MG/5 ML LIQUID UDC GT SCH ×4 (08:18→20:28)
[2023-06-22] MEDS: levETIRAcetam 500 MG/5 ML LIQUID UDC GT SCH ×2 (08:19→20:30)
[2023-06-22] MEDS: MIRALAX 17 GM POWD.PACK GT SCH (08:19)
[2023-06-22] MEDS: ESCITALOPRAM OXALATE 10 MG TABLET GT SCH (08:19)
[2023-06-22] MEDS: COAL TAR TOP SCH (08:19)
[2023-06-22] MEDS: NEOMY/BACITRA/POLYMYXIN B OINT UD PACKET TP SCH (08:19)
[2023-06-22] MEDS: POTASSIUM CHLORIDE 40 MEQ/30 ML LIQUID UDC GT SCH (08:19)
[2023-06-22] MEDS: REMEDY ESSENTIAL ZINC PASTE 113 GM TP SCH ×2 (08:19→20:33)
[2023-06-22] MEDS: HYDROGEN PEROXIDE 3% 118 ML BOTTLE TP SCH ×2 (09:00→19:30)
[2023-06-22 11:09] VITALS: O2SAT 98
[2023-06-22] MEDS: GABAPENTIN 300 MG CAPSULE GT SCH (17:02)
[2023-06-22] MEDS: ACETAMINOPHEN 650 MG/20 ML UDC- SA PATIENTS-PAIN ONLY GT PRN (17:23)
[2023-06-22 20:00] VITALS: TEMP 98.5
[2023-06-22] MEDS: OMEGA-3 FATTY ACIDS/FISH OIL CAPSULE GT SCH (20:29)
[2023-06-22 20:30] VITALS: O2SAT 99
[2023-06-22] MEDS: CRANBERRY 500 MG GT SCH (20:30)
[2023-06-22] MEDS: NUTRISOURCE FIBER 4 GM PACKET GT SCH (20:31)
[2023-06-22] MEDS: PROTEIN SUPPLEMENT (PROSTAT) 30 ML LIQUID GT SCH (20:31)
[2023-06-22] MEDS: MAGNESIUM COMPLEX GT SCH (20:31)
[2023-06-22] MEDS: RIVAROXABAN 15 MG TABLET GT SCH (20:33)
[2023-06-23] MEDS: JEVITY 1.2 1000 ML LIQUID GT PRN (04:01)
[2023-06-23] MEDS: BACLOFEN 10 MG TABLET GT SCH ×3 (05:54→17:29)
[2023-06-23] MEDS: OMEPRAZOLE 20 MG CAPSULE.DR GT SCH (05:54)
[2023-06-23] MEDS: MULTIVIT, IRON, MIN NO. 8, FA TABLET GT SCH (05:54)
[2023-06-23] MEDS: HYDROGEN PEROXIDE 3% 118 ML BOTTLE TP SCH ×2 (07:49→19:24)
[2023-06-23 08:00] VITALS: TEMP 97.8
[2023-06-23] MEDS: POLYVINYL ALCOHOL OPHT DROPS 15 ML BOTTLE EACHEYE SCH ×3 (09:25→16:33)
[2023-06-23] MEDS: VALPROIC ACID 250 MG/5 ML LIQUID UDC GT SCH ×4 (09:27→20:09)
[2023-06-23] MEDS: DOCUSATE SODIUM 100 MG/10 ML LIQUID UDC GT SCH (09:27)
[2023-06-23] MEDS: busPIRone 10 MG TABLET GT SCH ×3 (09:27→16:33)
[2023-06-23] MEDS: MIRALAX 17 GM POWD.PACK GT SCH (09:28)
[2023-06-23] MEDS: POTASSIUM CHLORIDE 40 MEQ/30 ML LIQUID UDC GT SCH (09:28)
[2023-06-23] MEDS: ACIDOPHILUS/BULGARICUS CHEW TAB GT SCH ×2 (09:28→20:15)
[2023-06-23] MEDS: levETIRAcetam 500 MG/5 ML LIQUID UDC GT SCH ×2 (09:28→20:16)
[2023-06-23] MEDS: REMEDY ESSENTIAL ZINC PASTE 113 GM TP SCH ×2 (09:28→20:20)
[2023-06-23] MEDS: ESCITALOPRAM OXALATE 10 MG TABLET GT SCH (09:28)
[2023-06-23 09:45] VITALS: O2SAT 98
[2023-06-23] MEDS: GABAPENTIN 300 MG CAPSULE GT SCH (16:34)
[2023-06-23 20:00] VITALS: TEMP 97.5
[2023-06-23] MEDS: OMEGA-3 FATTY ACIDS/FISH OIL CAPSULE GT SCH (20:14)
[2023-06-23] MEDS: CRANBERRY 500 MG GT SCH (20:18)
[2023-06-23] MEDS: MAGNESIUM COMPLEX GT SCH (20:18)
[2023-06-23] MEDS: PROTEIN SUPPLEMENT (PROSTAT) 30 ML LIQUID GT SCH (20:19)
[2023-06-23] MEDS: NUTRISOURCE FIBER 4 GM PACKET GT SCH (20:19)
[2023-06-23] MEDS: RIVAROXABAN 15 MG TABLET GT SCH (20:20)
[2023-06-23] MEDS: MELATONIN 3MG TABLET GT PRN (20:24)
[2023-06-23 21:08] VITALS: O2SAT 99
[2023-06-24] MEDS: JEVITY 1.2 1000 ML LIQUID GT PRN (04:25)
[2023-06-24] MEDS: BACLOFEN 10 MG TABLET GT SCH ×4 (05:33→17:00)
[2023-06-24] MEDS: MULTIVIT, IRON, MIN NO. 8, FA TABLET GT SCH (05:33)
[2023-06-24] MEDS: OMEPRAZOLE 20 MG CAPSULE.DR GT SCH (05:33)
[2023-06-24] MEDS: HYDROGEN PEROXIDE 3% 118 ML BOTTLE TP SCH ×2 (07:52→21:19)
[2023-06-24 08:00] VITALS: TEMP 97.6
[2023-06-24] MEDS: busPIRone 10 MG TABLET GT SCH ×3 (09:46→16:54)
[2023-06-24] MEDS: POLYVINYL ALCOHOL OPHT DROPS 15 ML BOTTLE EACHEYE SCH ×3 (09:46→16:54)
[2023-06-24] MEDS: DOCUSATE SODIUM 100 MG/10 ML LIQUID UDC GT SCH (09:46)
[2023-06-24] MEDS: VALPROIC ACID 250 MG/5 ML LIQUID UDC GT SCH ×4 (09:47→21:27)
[2023-06-24] MEDS: ACIDOPHILUS/BULGARICUS CHEW TAB GT SCH ×2 (09:48→21:27)
[2023-06-24] MEDS: levETIRAcetam 500 MG/5 ML LIQUID UDC GT SCH ×2 (09:48→21:27)
[2023-06-24] MEDS: ESCITALOPRAM OXALATE 10 MG TABLET GT SCH (09:49)
[2023-06-24] MEDS: MIRALAX 17 GM POWD.PACK GT SCH (09:50)
[2023-06-24] MEDS: POTASSIUM CHLORIDE 40 MEQ/30 ML LIQUID UDC GT SCH (09:50)
[2023-06-24] MEDS: REMEDY ESSENTIAL ZINC PASTE 113 GM TP SCH ×2 (09:51→21:28)
[2023-06-24 10:00] VITALS: O2SAT 98
[2023-06-24] MEDS: GABAPENTIN 300 MG CAPSULE GT SCH (16:56)
[2023-06-24 20:00] VITALS: TEMP 98.2
[2023-06-24 20:05] VITALS: O2SAT 98
[2023-06-24] MEDS: PROTEIN SUPPLEMENT (PROSTAT) 30 ML LIQUID GT SCH (21:27)
[2023-06-24] MEDS: CRANBERRY 500 MG GT SCH (21:27)
[2023-06-24] MEDS: NUTRISOURCE FIBER 4 GM PACKET GT SCH (21:27)
[2023-06-24] MEDS: OMEGA-3 FATTY ACIDS/FISH OIL CAPSULE GT SCH (21:27)
[2023-06-24] MEDS: MAGNESIUM COMPLEX GT SCH (21:27)
[2023-06-24] MEDS: RIVAROXABAN 15 MG TABLET GT SCH (21:28)
[2023-06-25] MEDS: MULTIVIT, IRON, MIN NO. 8, FA TABLET GT SCH (06:06)
[2023-06-25] MEDS: OMEPRAZOLE 20 MG CAPSULE.DR GT SCH (06:06)
[2023-06-25] MEDS: BACLOFEN 10 MG TABLET GT SCH ×4 (06:06→17:01)
[2023-06-25] MEDS: HYDROGEN PEROXIDE 3% 118 ML BOTTLE TP SCH ×2 (08:42→19:12)
[2023-06-25] MEDS: POLYVINYL ALCOHOL OPHT DROPS 15 ML BOTTLE EACHEYE SCH ×3 (08:47→17:01)
[2023-06-25] MEDS: busPIRone 10 MG TABLET GT SCH ×3 (08:47→17:01)
[2023-06-25] MEDS: DOCUSATE SODIUM 100 MG/10 ML LIQUID UDC GT SCH (08:47)
[2023-06-25] MEDS: VALPROIC ACID 250 MG/5 ML LIQUID UDC GT SCH ×4 (08:47→21:00)
[2023-06-25] MEDS: levETIRAcetam 500 MG/5 ML LIQUID UDC GT SCH ×2 (08:48→21:00)
[2023-06-25] MEDS: ACIDOPHILUS/BULGARICUS CHEW TAB GT SCH ×2 (08:48→21:00)
[2023-06-25] MEDS: ESCITALOPRAM OXALATE 10 MG TABLET GT SCH (08:48)
[2023-06-25] MEDS: POTASSIUM CHLORIDE 40 MEQ/30 ML LIQUID UDC GT SCH (08:49)
[2023-06-25] MEDS: MIRALAX 17 GM POWD.PACK GT SCH (08:49)
[2023-06-25 08:55] VITALS: TEMP 97.8
[2023-06-25] MEDS: COAL TAR TOP SCH (08:56)
[2023-06-25] MEDS: REMEDY ESSENTIAL ZINC PASTE 113 GM TP SCH ×2 (08:56→21:00)
[2023-06-25 10:30] VITALS: O2SAT 98
[2023-06-25] MEDS: GABAPENTIN 300 MG CAPSULE GT SCH (17:01)
[2023-06-25 20:00] VITALS: TEMP 97.2
[2023-06-25 20:50] VITALS: O2SAT 99
[2023-06-25] MEDS: MAGNESIUM COMPLEX GT SCH (21:00)
[2023-06-25] MEDS: NUTRISOURCE FIBER 4 GM PACKET GT SCH (21:00)
[2023-06-25] MEDS: RIVAROXABAN 15 MG TABLET GT SCH (21:00)
[2023-06-25] MEDS: CRANBERRY 500 MG GT SCH (21:00)
[2023-06-25] MEDS: OMEGA-3 FATTY ACIDS/FISH OIL CAPSULE GT SCH (21:00)
[2023-06-25] MEDS: PROTEIN SUPPLEMENT (PROSTAT) 30 ML LIQUID GT SCH (21:00)
[2023-06-25] MEDS: MELATONIN 3MG TABLET GT PRN (22:18)
[2023-06-26] VITALS (10 sets, daily range): TEMP 97.8–98.2; O2SAT 98–99
[2023-06-26] MEDS: MULTIVIT, IRON, MIN NO. 8, FA TABLET GT SCH (05:28)
[2023-06-26] MEDS: OMEPRAZOLE 20 MG CAPSULE.DR GT SCH (05:28)
[2023-06-26] MEDS: BACLOFEN 10 MG TABLET GT SCH ×4 (05:28→17:01)
[2023-06-26] MEDS: busPIRone 10 MG TABLET GT SCH ×3 (08:15→17:00)
[2023-06-26] MEDS: POLYVINYL ALCOHOL OPHT DROPS 15 ML BOTTLE EACHEYE SCH ×3 (08:15→17:00)
[2023-06-26] MEDS: VALPROIC ACID 250 MG/5 ML LIQUID UDC GT SCH ×4 (08:17→21:00)
[2023-06-26] MEDS: DOCUSATE SODIUM 100 MG/10 ML LIQUID UDC GT SCH (08:17)
[2023-06-26] MEDS: levETIRAcetam 500 MG/5 ML LIQUID UDC GT SCH ×2 (08:18→21:00)
[2023-06-26] MEDS: ESCITALOPRAM OXALATE 10 MG TABLET GT SCH (08:18)
[2023-06-26] MEDS: ACIDOPHILUS/BULGARICUS CHEW TAB GT SCH ×2 (08:18→21:00)
[2023-06-26] MEDS: POTASSIUM CHLORIDE 40 MEQ/30 ML LIQUID UDC GT SCH (08:20)
[2023-06-26] MEDS: MIRALAX 17 GM POWD.PACK GT SCH (08:20)
[2023-06-26] MEDS: REMEDY ESSENTIAL ZINC PASTE 113 GM TP SCH ×2 (08:21→21:00)
[2023-06-26] MEDS: HYDROGEN PEROXIDE 3% 118 ML BOTTLE TP SCH ×2 (09:00→21:05)
[2023-06-26] MEDS: JEVITY 1.2 1000 ML LIQUID GT PRN (12:42)
[2023-06-26] MEDS: GABAPENTIN 300 MG CAPSULE GT SCH (17:01)
[2023-06-26] MEDS: ALBUTEROL SULFATE 2.5 MG/3 ML NEBU NEB PRN (18:07)
[2023-06-26] MEDS: IPRATROPIUM BROMIDE 0.5 MG/2.5 ML NEBU NEB PRN (18:07)
[2023-06-26] MEDS: ACETAMINOPHEN 650 MG/20 ML UDC- SA PATIENTS-PAIN ONLY GT PRN (18:57)
[2023-06-26] MEDS: MAGNESIUM COMPLEX GT SCH (21:00)
[2023-06-26] MEDS: NUTRISOURCE FIBER 4 GM PACKET GT SCH (21:00)
[2023-06-26] MEDS: PROTEIN SUPPLEMENT (PROSTAT) 30 ML LIQUID GT SCH (21:00)
[2023-06-26] MEDS: OMEGA-3 FATTY ACIDS/FISH OIL CAPSULE GT SCH (21:00)
[2023-06-26] MEDS: CRANBERRY 500 MG GT SCH (21:00)
[2023-06-26] MEDS: RIVAROXABAN 15 MG TABLET GT SCH (21:00)
[2023-06-26] MEDS: MELATONIN 3MG TABLET GT PRN (22:13)
[2023-06-26] MEDS: LORAZEPAM 0.5 MG TABLET PO PRN (22:53)
[2023-06-27] VITALS (9 sets, daily range): TEMP 97–98.2; O2SAT 99
[2023-06-27] MEDS: ALBUTEROL SULFATE 2.5 MG/3 ML NEBU NEB PRN ×3 (01:04→16:10)
[2023-06-27] MEDS: IPRATROPIUM BROMIDE 0.5 MG/2.5 ML NEBU NEB PRN ×3 (01:04→16:10)
[2023-06-27] MEDS: BACLOFEN 10 MG TABLET GT SCH ×4 (05:45→17:02)
[2023-06-27] MEDS: MULTIVIT, IRON, MIN NO. 8, FA TABLET GT SCH (05:45)
[2023-06-27] MEDS: OMEPRAZOLE 20 MG CAPSULE.DR GT SCH (05:45)
[2023-06-27] MEDS: HYDROGEN PEROXIDE 3% 118 ML BOTTLE TP SCH ×2 (08:02→19:12)
[2023-06-27] MEDS: POLYVINYL ALCOHOL OPHT DROPS 15 ML BOTTLE EACHEYE SCH ×3 (09:47→17:01)
[2023-06-27] MEDS: DOCUSATE SODIUM 100 MG/10 ML LIQUID UDC GT SCH (09:47)
[2023-06-27] MEDS: busPIRone 10 MG TABLET GT SCH ×3 (09:47→17:01)
[2023-06-27] MEDS: VALPROIC ACID 250 MG/5 ML LIQUID UDC GT SCH ×4 (09:48→20:32)
[2023-06-27] MEDS: ACIDOPHILUS/BULGARICUS CHEW TAB GT SCH ×2 (09:49→20:32)
[2023-06-27] MEDS: levETIRAcetam 500 MG/5 ML LIQUID UDC GT SCH ×2 (09:49→20:33)
[2023-06-27] MEDS: MIRALAX 17 GM POWD.PACK GT SCH (09:51)
[2023-06-27] MEDS: POTASSIUM CHLORIDE 40 MEQ/30 ML LIQUID UDC GT SCH (09:51)
[2023-06-27] MEDS: ESCITALOPRAM OXALATE 10 MG TABLET GT SCH (09:51)
[2023-06-27] MEDS: REMEDY ESSENTIAL ZINC PASTE 113 GM TP SCH ×2 (09:52→20:34)
[2023-06-27] MEDS: GABAPENTIN 300 MG CAPSULE GT SCH (17:02)
[2023-06-27] MEDS: JEVITY 1.2 1000 ML LIQUID GT PRN (17:55)
[2023-06-27] MEDS: NUTRISOURCE FIBER 4 GM PACKET GT SCH (20:34)
[2023-06-27] MEDS: PROTEIN SUPPLEMENT (PROSTAT) 30 ML LIQUID GT SCH (20:34)
[2023-06-27] MEDS: OMEGA-3 FATTY ACIDS/FISH OIL CAPSULE GT SCH (20:36)
[2023-06-27] MEDS: MAGNESIUM COMPLEX GT SCH (20:36)
[2023-06-27] MEDS: CRANBERRY 500 MG GT SCH (20:36)
[2023-06-27] MEDS: RIVAROXABAN 15 MG TABLET GT SCH (20:39)
[2023-06-27] MEDS: MELATONIN 3MG TABLET GT PRN (20:39)
[2023-06-27] MEDS: LORAZEPAM 0.5 MG TABLET PO PRN (22:40)
[2023-06-28] MEDS: BACLOFEN 10 MG TABLET GT SCH ×5 (05:09→23:13)
[2023-06-28] MEDS: MULTIVIT, IRON, MIN NO. 8, FA TABLET GT SCH (05:09)
[2023-06-28] MEDS: OMEPRAZOLE 20 MG CAPSULE.DR GT SCH (05:09)
[2023-06-28] MEDS: HYDROGEN PEROXIDE 3% 118 ML BOTTLE TP SCH ×2 (07:15→19:19)
[2023-06-28 07:38] VITALS: TEMP 98.1
[2023-06-28 07:42] LABS: ALBUMIN 2.7 g/dL (3.4-5.0); BILIRUBIN,TOTAL 0.2 mg/dL (0.2-1.0); CALCIUM 9.1 mg/dL (8.5-10.1); CREATININE 0.6 mg/dL (0.6-1.3); MAGNESIUM 2.2 mg/dL (1.8-2.4); PHOSPHOROUS 4.6 mg/dL (2.5-4.9); POTASSIUM 3.9 mmol/L (3.5-5.1); TOTAL PROTEIN, SERUM 6.6 g/dL (6.4-8.2)
[2023-06-28 08:16] LABS: BASOPHILS # (AUTO) 0.1 K/UL (0.0-0.2); BASOPHILS % (AUTO) 0.6 % (0.0-2.0); EOSINOPHILS # (AUTO) 0.3 K/uL (0.0-0.7); EOSINOPHILS % (AUTO) 3.6 % (0.0-7.0); HEMATOCRIT 38.2 % (31.2-41.9); LYMPHOCYTES # (AUTO) 2.8 K/uL (0.8-4.8); LYMPHOCYTES % (AUTO) 30.5 % (20.5-51.5); MEAN CORPUSCULAR HEMOGLOBIN 32.5 uug (24.7-32.8); MEAN CORPUSCULAR HGB CONC 34 g/dL (32.3-35.6); MEAN CORPUSCULAR VOLUME 95.2 fL (75.5-95.3); MONOCYTES # (AUTO) 0.8 K/uL (0.1-1.30); MONOCYTES % (AUTO) 9.4 % (0.0-11.0); NEUTROPHILS # (AUTO) 5.1 K/uL (1.8-8.9); NEUTROPHILS % (AUTO) 55.9 % (38.5-71.5); PLATELET COUNT (AUTO) 198 K/uL (179-408); RED BLOOD CELL COUNT(AUTO) 4.02 MIL/uL (3.63-4.92); RED CELL DISTRIBUTION WIDTH 13.4 % (12.3-17.7); WHITE BLOOD COUNT (AUTO) 9.1 K/uL (3.8-11.8)
[2023-06-28 08:17] LABS: DIFFERENTIAL COMMENT 1
[2023-06-28] MEDS: POLYVINYL ALCOHOL OPHT DROPS 15 ML BOTTLE EACHEYE SCH ×3 (09:46→16:48)
[2023-06-28] MEDS: busPIRone 10 MG TABLET GT SCH ×3 (09:46→16:49)
[2023-06-28] MEDS: DOCUSATE SODIUM 100 MG/10 ML LIQUID UDC GT SCH (09:47)
[2023-06-28] MEDS: VALPROIC ACID 250 MG/5 ML LIQUID UDC GT SCH ×4 (09:48→20:42)
[2023-06-28] MEDS: levETIRAcetam 500 MG/5 ML LIQUID UDC GT SCH ×2 (09:48→20:42)
[2023-06-28] MEDS: ACIDOPHILUS/BULGARICUS CHEW TAB GT SCH ×2 (09:48→20:42)
[2023-06-28] MEDS: ESCITALOPRAM OXALATE 10 MG TABLET GT SCH (09:49)
[2023-06-28] MEDS: MIRALAX 17 GM POWD.PACK GT SCH (09:49)
[2023-06-28] MEDS: POTASSIUM CHLORIDE 40 MEQ/30 ML LIQUID UDC GT SCH (09:50)
[2023-06-28] MEDS: REMEDY ESSENTIAL ZINC PASTE 113 GM TP SCH ×2 (09:50→20:42)
[2023-06-28 12:18] VITALS: O2SAT 99
[2023-06-28] MEDS: GABAPENTIN 300 MG CAPSULE GT SCH (16:51)
[2023-06-28 20:00] VITALS: TEMP 98.4
[2023-06-28] MEDS: MAGNESIUM COMPLEX GT SCH (20:42)
[2023-06-28] MEDS: CRANBERRY 500 MG GT SCH (20:42)
[2023-06-28] MEDS: OMEGA-3 FATTY ACIDS/FISH OIL CAPSULE GT SCH (20:42)
[2023-06-28] MEDS: NUTRISOURCE FIBER 4 GM PACKET GT SCH (20:42)
[2023-06-28] MEDS: PROTEIN SUPPLEMENT (PROSTAT) 30 ML LIQUID GT SCH (20:42)
[2023-06-28] MEDS: RIVAROXABAN 15 MG TABLET GT SCH (20:43)
[2023-06-28 21:34] VITALS: O2SAT 99
[2023-06-28] MEDS: LORAZEPAM 0.5 MG TABLET PO PRN (22:30)
[2023-06-29] MEDS: AMOXICILLIN-CLAVUL 500-125MG TABLET GT SCH (04:30)
[2023-06-29] MEDS: MULTIVIT, IRON, MIN NO. 8, FA TABLET GT SCH (05:20)
[2023-06-29] MEDS: BACLOFEN 10 MG TABLET GT SCH ×4 (05:20→23:10)
[2023-06-29] MEDS: OMEPRAZOLE 20 MG CAPSULE.DR GT SCH (05:20)
[2023-06-29 07:27] VITALS: TEMP 98.2
[2023-06-29 08:12] VITALS: O2SAT 98
[2023-06-29] MEDS: HYDROGEN PEROXIDE 3% 118 ML BOTTLE TP SCH ×2 (09:00→19:16)
[2023-06-29] MEDS: VALPROIC ACID 250 MG/5 ML LIQUID UDC GT SCH ×4 (09:42→20:50)
[2023-06-29] MEDS: DOCUSATE SODIUM 100 MG/10 ML LIQUID UDC GT SCH (09:42)
[2023-06-29] MEDS: busPIRone 10 MG TABLET GT SCH ×3 (09:42→17:23)
[2023-06-29] MEDS: POLYVINYL ALCOHOL OPHT DROPS 15 ML BOTTLE EACHEYE SCH ×3 (09:42→17:23)
[2023-06-29] MEDS: ACIDOPHILUS/BULGARICUS CHEW TAB GT SCH ×2 (09:42→20:50)
[2023-06-29] MEDS: MIRALAX 17 GM POWD.PACK GT SCH (09:43)
[2023-06-29] MEDS: ESCITALOPRAM OXALATE 10 MG TABLET GT SCH (09:43)
[2023-06-29] MEDS: levETIRAcetam 500 MG/5 ML LIQUID UDC GT SCH ×2 (09:43→20:51)
[2023-06-29] MEDS: REMEDY ESSENTIAL ZINC PASTE 113 GM TP SCH ×2 (09:43→20:53)
[2023-06-29] MEDS: COAL TAR TOP SCH (09:43)
[2023-06-29] MEDS: POTASSIUM CHLORIDE 40 MEQ/30 ML LIQUID UDC GT SCH (09:43)
[2023-06-29 14:53] VITALS: O2SAT 98
[2023-06-29] MEDS: GABAPENTIN 300 MG CAPSULE GT SCH (17:23)
[2023-06-29 19:50] VITALS: O2SAT 98
[2023-06-29 20:00] VITALS: TEMP 97.4
[2023-06-29] MEDS: OMEGA-3 FATTY ACIDS/FISH OIL CAPSULE GT SCH (20:50)
[2023-06-29] MEDS: CRANBERRY 500 MG GT SCH (20:51)
[2023-06-29] MEDS: PROTEIN SUPPLEMENT (PROSTAT) 30 ML LIQUID GT SCH (20:53)
[2023-06-29] MEDS: MAGNESIUM COMPLEX GT SCH (20:53)
[2023-06-29] MEDS: NUTRISOURCE FIBER 4 GM PACKET GT SCH (20:53)
[2023-06-29] MEDS: RIVAROXABAN 15 MG TABLET GT SCH (20:54)
[2023-06-29] MEDS: MELATONIN 3MG TABLET GT PRN (22:49)
[2023-06-30] MEDS: OMEPRAZOLE 20 MG CAPSULE.DR GT SCH (06:02)
[2023-06-30] MEDS: BACLOFEN 10 MG TABLET GT SCH ×4 (06:02→23:23)
[2023-06-30] MEDS: MULTIVIT, IRON, MIN NO. 8, FA TABLET GT SCH (06:02)
[2023-06-30 07:46] VITALS: TEMP 97.8
[2023-06-30] MEDS: POLYVINYL ALCOHOL OPHT DROPS 15 ML BOTTLE EACHEYE SCH ×3 (08:31→16:43)
[2023-06-30] MEDS: AMOXICILLIN-CLAVUL 500-125MG TABLET GT SCH ×2 (08:31→20:41)
[2023-06-30] MEDS: busPIRone 10 MG TABLET GT SCH ×3 (08:32→16:43)
[2023-06-30] MEDS: VALPROIC ACID 250 MG/5 ML LIQUID UDC GT SCH ×4 (08:32→20:29)
[2023-06-30] MEDS: DOCUSATE SODIUM 100 MG/10 ML LIQUID UDC GT SCH (08:32)
[2023-06-30] MEDS: ACIDOPHILUS/BULGARICUS CHEW TAB GT SCH ×2 (08:33→20:29)
[2023-06-30] MEDS: levETIRAcetam 500 MG/5 ML LIQUID UDC GT SCH ×2 (08:34→20:29)
[2023-06-30] MEDS: MIRALAX 17 GM POWD.PACK GT SCH (08:36)
[2023-06-30] MEDS: ESCITALOPRAM OXALATE 10 MG TABLET GT SCH (08:36)
[2023-06-30] MEDS: REMEDY ESSENTIAL ZINC PASTE 113 GM TP SCH ×2 (08:37→21:00)
[2023-06-30] MEDS: POTASSIUM CHLORIDE 40 MEQ/30 ML LIQUID UDC GT SCH (08:37)
[2023-06-30] MEDS: HYDROGEN PEROXIDE 3% 118 ML BOTTLE TP SCH ×2 (09:00→21:08)
[2023-06-30 14:57] VITALS: O2SAT 98
[2023-06-30] MEDS: JEVITY 1.2 1000 ML LIQUID GT PRN (16:43)
[2023-06-30] MEDS: GABAPENTIN 300 MG CAPSULE GT SCH (16:43)
[2023-06-30 19:49] VITALS: O2SAT 98
[2023-06-30 20:00] VITALS: TEMP 97.9
[2023-06-30] MEDS: CRANBERRY 500 MG GT SCH (20:29)
[2023-06-30] MEDS: OMEGA-3 FATTY ACIDS/FISH OIL CAPSULE GT SCH (20:29)
[2023-06-30] MEDS: MAGNESIUM COMPLEX GT SCH (20:30)
[2023-06-30] MEDS: PROTEIN SUPPLEMENT (PROSTAT) 30 ML LIQUID GT SCH (20:31)
[2023-06-30] MEDS: NUTRISOURCE FIBER 4 GM PACKET GT SCH (20:31)
[2023-06-30] MEDS: MELATONIN 3MG TABLET GT PRN (20:35)
[2023-06-30] MEDS: RIVAROXABAN 15 MG TABLET GT SCH (21:00)
[2023-06-30] MEDS: LORAZEPAM 0.5 MG TABLET PO PRN (23:23)
[2023-07-01] MEDS: BACLOFEN 10 MG TABLET GT SCH ×3 (05:44→17:08)
[2023-07-01] MEDS: OMEPRAZOLE 20 MG CAPSULE.DR GT SCH (05:44)
[2023-07-01] MEDS: MULTIVIT, IRON, MIN NO. 8, FA TABLET GT SCH (05:44)
[2023-07-01 07:05] VITALS: O2SAT 98
[2023-07-01 07:46] VITALS: TEMP 97
[2023-07-01] MEDS: POLYVINYL ALCOHOL OPHT DROPS 15 ML BOTTLE EACHEYE SCH ×3 (08:51→17:08)
[2023-07-01] MEDS: AMOXICILLIN-CLAVUL 500-125MG TABLET GT SCH ×2 (08:51→21:27)
[2023-07-01] MEDS: busPIRone 10 MG TABLET GT SCH ×3 (08:53→17:08)
[2023-07-01] MEDS: DOCUSATE SODIUM 100 MG/10 ML LIQUID UDC GT SCH (08:53)
[2023-07-01] MEDS: levETIRAcetam 500 MG/5 ML LIQUID UDC GT SCH ×2 (08:54→21:27)
[2023-07-01] MEDS: ESCITALOPRAM OXALATE 10 MG TABLET GT SCH (08:54)
[2023-07-01] MEDS: MIRALAX 17 GM POWD.PACK GT SCH (08:54)
[2023-07-01] MEDS: VALPROIC ACID 250 MG/5 ML LIQUID UDC GT SCH ×4 (08:54→21:27)
[2023-07-01] MEDS: ACIDOPHILUS/BULGARICUS CHEW TAB GT SCH ×2 (08:54→21:27)
[2023-07-01] MEDS: POTASSIUM CHLORIDE 40 MEQ/30 ML LIQUID UDC GT SCH (08:55)
[2023-07-01] MEDS: REMEDY ESSENTIAL ZINC PASTE 113 GM TP SCH ×2 (08:55→21:27)
[2023-07-01] MEDS: HYDROGEN PEROXIDE 3% 118 ML BOTTLE TP SCH ×2 (09:00→19:10)
[2023-07-01 11:05] VITALS: O2SAT 98
[2023-07-01 13:04] VITALS: O2SAT 99
[2023-07-01] MEDS: GABAPENTIN 300 MG CAPSULE GT SCH (17:08)
[2023-07-01] MEDS: JEVITY 1.2 1000 ML LIQUID GT PRN (17:09)
[2023-07-01 20:00] VITALS: TEMP 97.6
[2023-07-01 20:45] VITALS: O2SAT 98
[2023-07-01] MEDS: NUTRISOURCE FIBER 4 GM PACKET GT SCH (21:27)
[2023-07-01] MEDS: MELATONIN 3MG TABLET GT PRN (21:27)
[2023-07-01] MEDS: MAGNESIUM COMPLEX GT SCH (21:27)
[2023-07-01] MEDS: OMEGA-3 FATTY ACIDS/FISH OIL CAPSULE GT SCH (21:27)
[2023-07-01] MEDS: CRANBERRY 500 MG GT SCH (21:27)
[2023-07-01] MEDS: PROTEIN SUPPLEMENT (PROSTAT) 30 ML LIQUID GT SCH (21:27)
[2023-07-01] MEDS: RIVAROXABAN 15 MG TABLET GT SCH (21:27)
[2023-07-01] MEDS: LORAZEPAM 0.5 MG TABLET PO PRN (22:09)
[2023-07-02] MEDS: BACLOFEN 10 MG TABLET GT SCH ×5 (00:22→23:45)
[2023-07-02] MEDS: MULTIVIT, IRON, MIN NO. 8, FA TABLET GT SCH (05:44)
[2023-07-02] MEDS: OMEPRAZOLE 20 MG CAPSULE.DR GT SCH (05:44)
[2023-07-02 08:00] VITALS: TEMP 98.2
[2023-07-02] MEDS: HYDROGEN PEROXIDE 3% 118 ML BOTTLE TP SCH ×2 (09:00→19:25)
[2023-07-02 09:15] VITALS: O2SAT 98
[2023-07-02] MEDS: POTASSIUM CHLORIDE 40 MEQ/30 ML LIQUID UDC GT SCH (09:18)
[2023-07-02] MEDS: POLYVINYL ALCOHOL OPHT DROPS 15 ML BOTTLE EACHEYE SCH ×3 (09:18→17:00)
[2023-07-02] MEDS: ESCITALOPRAM OXALATE 10 MG TABLET GT SCH (09:18)
[2023-07-02] MEDS: MIRALAX 17 GM POWD.PACK GT SCH (09:18)
[2023-07-02] MEDS: ACIDOPHILUS/BULGARICUS CHEW TAB GT SCH ×2 (09:18→21:07)
[2023-07-02] MEDS: busPIRone 10 MG TABLET GT SCH ×3 (09:18→17:00)
[2023-07-02] MEDS: VALPROIC ACID 250 MG/5 ML LIQUID UDC GT SCH ×4 (09:18→21:07)
[2023-07-02] MEDS: DOCUSATE SODIUM 100 MG/10 ML LIQUID UDC GT SCH (09:18)
[2023-07-02] MEDS: REMEDY ESSENTIAL ZINC PASTE 113 GM TP SCH ×2 (09:18→21:07)
[2023-07-02] MEDS: AMOXICILLIN-CLAVUL 500-125MG TABLET GT SCH ×2 (09:18→21:07)
[2023-07-02] MEDS: levETIRAcetam 500 MG/5 ML LIQUID UDC GT SCH ×2 (09:18→21:07)
[2023-07-02] MEDS: COAL TAR TOP SCH (09:18)
[2023-07-02] MEDS: GABAPENTIN 300 MG CAPSULE GT SCH (17:00)
[2023-07-02 20:00] VITALS: TEMP 98.3
[2023-07-02] MEDS: PROTEIN SUPPLEMENT (PROSTAT) 30 ML LIQUID GT SCH (21:07)
[2023-07-02] MEDS: CRANBERRY 500 MG GT SCH (21:07)
[2023-07-02] MEDS: NUTRISOURCE FIBER 4 GM PACKET GT SCH (21:07)
[2023-07-02] MEDS: MAGNESIUM COMPLEX GT SCH (21:07)
[2023-07-02] MEDS: OMEGA-3 FATTY ACIDS/FISH OIL CAPSULE GT SCH (21:07)
[2023-07-02] MEDS: MELATONIN 3MG TABLET GT PRN (21:08)
[2023-07-02] MEDS: RIVAROXABAN 15 MG TABLET GT SCH (21:08)
[2023-07-02 21:14] VITALS: O2SAT 98
[2023-07-02] MEDS: JEVITY 1.2 1000 ML LIQUID GT PRN (22:01)
[2023-07-02] MEDS: LORAZEPAM 0.5 MG TABLET PO PRN (22:01)
[2023-07-02] MEDS: ACETAMINOPHEN 650 MG/20 ML UDC- SA PATIENTS-PAIN ONLY GT PRN (23:45)
[2023-07-03] MEDS: BACLOFEN 10 MG TABLET GT SCH ×3 (05:01→17:10)
[2023-07-03] MEDS: OMEPRAZOLE 20 MG CAPSULE.DR GT SCH (05:01)
[2023-07-03] MEDS: MULTIVIT, IRON, MIN NO. 8, FA TABLET GT SCH (05:02)
[2023-07-03 08:00] VITALS: TEMP 97.6
[2023-07-03] MEDS: AMOXICILLIN-CLAVUL 500-125MG TABLET GT SCH ×2 (08:37→20:22)
[2023-07-03] MEDS: busPIRone 10 MG TABLET GT SCH ×3 (08:37→17:10)
[2023-07-03] MEDS: POLYVINYL ALCOHOL OPHT DROPS 15 ML BOTTLE EACHEYE SCH ×3 (08:37→17:08)
[2023-07-03] MEDS: DOCUSATE SODIUM 100 MG/10 ML LIQUID UDC GT SCH (08:37)
[2023-07-03] MEDS: VALPROIC ACID 250 MG/5 ML LIQUID UDC GT SCH ×4 (08:37→20:22)
[2023-07-03] MEDS: ACIDOPHILUS/BULGARICUS CHEW TAB GT SCH ×2 (08:38→20:22)
[2023-07-03] MEDS: levETIRAcetam 500 MG/5 ML LIQUID UDC GT SCH ×2 (08:38→20:22)
[2023-07-03] MEDS: MIRALAX 17 GM POWD.PACK GT SCH (08:39)
[2023-07-03] MEDS: REMEDY ESSENTIAL ZINC PASTE 113 GM TP SCH ×2 (08:39→20:22)
[2023-07-03] MEDS: POTASSIUM CHLORIDE 40 MEQ/30 ML LIQUID UDC GT SCH (08:39)
[2023-07-03] MEDS: ESCITALOPRAM OXALATE 10 MG TABLET GT SCH (08:39)
[2023-07-03 09:16] VITALS: O2SAT 98
[2023-07-03] MEDS: HYDROGEN PEROXIDE 3% 118 ML BOTTLE TP SCH ×2 (09:34→21:00)
[2023-07-03] MEDS: GABAPENTIN 300 MG CAPSULE GT SCH (17:10)
[2023-07-03 20:00] VITALS: TEMP 97.5
[2023-07-03] MEDS: NUTRISOURCE FIBER 4 GM PACKET GT SCH (20:22)
[2023-07-03] MEDS: PROTEIN SUPPLEMENT (PROSTAT) 30 ML LIQUID GT SCH (20:22)
[2023-07-03] MEDS: CRANBERRY 500 MG GT SCH (20:22)
[2023-07-03] MEDS: OMEGA-3 FATTY ACIDS/FISH OIL CAPSULE GT SCH (20:22)
[2023-07-03] MEDS: MAGNESIUM COMPLEX GT SCH (20:22)
[2023-07-03] MEDS: LORAZEPAM 0.5 MG TABLET PO PRN (20:23)
[2023-07-03] MEDS: RIVAROXABAN 15 MG TABLET GT SCH (21:00)
[2023-07-04 00:12] VITALS: O2SAT 97
[2023-07-04] MEDS: JEVITY 1.2 1000 ML LIQUID GT PRN (00:17)
[2023-07-04] MEDS: BACLOFEN 10 MG TABLET GT SCH ×4 (00:17→17:19)
[2023-07-04] MEDS: OMEPRAZOLE 20 MG CAPSULE.DR GT SCH (05:27)
[2023-07-04] MEDS: MULTIVIT, IRON, MIN NO. 8, FA TABLET GT SCH (05:28)
[2023-07-04] MEDS: POLYVINYL ALCOHOL OPHT DROPS 15 ML BOTTLE EACHEYE SCH ×3 (08:36→17:19)
[2023-07-04] MEDS: DOCUSATE SODIUM 100 MG/10 ML LIQUID UDC GT SCH (08:37)
[2023-07-04] MEDS: AMOXICILLIN-CLAVUL 500-125MG TABLET GT SCH ×2 (08:37→20:13)
[2023-07-04] MEDS: VALPROIC ACID 250 MG/5 ML LIQUID UDC GT SCH ×4 (08:37→20:15)
[2023-07-04] MEDS: busPIRone 10 MG TABLET GT SCH ×3 (08:37→17:19)
[2023-07-04] MEDS: ACIDOPHILUS/BULGARICUS CHEW TAB GT SCH ×2 (08:38→20:15)
[2023-07-04] MEDS: levETIRAcetam 500 MG/5 ML LIQUID UDC GT SCH ×2 (08:38→20:15)
[2023-07-04] MEDS: ESCITALOPRAM OXALATE 10 MG TABLET GT SCH (08:39)
[2023-07-04] MEDS: POTASSIUM CHLORIDE 40 MEQ/30 ML LIQUID UDC GT SCH (08:39)
[2023-07-04] MEDS: MIRALAX 17 GM POWD.PACK GT SCH (08:39)
[2023-07-04] MEDS: REMEDY ESSENTIAL ZINC PASTE 113 GM TP SCH ×2 (08:40→20:15)
[2023-07-04] MEDS: HYDROGEN PEROXIDE 3% 118 ML BOTTLE TP SCH ×2 (09:00→19:27)
[2023-07-04 11:22] VITALS: TEMP 97.1
[2023-07-04 12:37] VITALS: O2SAT 98
[2023-07-04] MEDS: GABAPENTIN 300 MG CAPSULE GT SCH (17:19)
[2023-07-04 20:00] VITALS: TEMP 98
[2023-07-04] MEDS: PROTEIN SUPPLEMENT (PROSTAT) 30 ML LIQUID GT SCH (20:15)
[2023-07-04] MEDS: OMEGA-3 FATTY ACIDS/FISH OIL CAPSULE GT SCH (20:17)
[2023-07-04] MEDS: CRANBERRY 500 MG GT SCH (20:17)
[2023-07-04] MEDS: NUTRISOURCE FIBER 4 GM PACKET GT SCH (20:22)
[2023-07-04] MEDS: MELATONIN 3MG TABLET GT PRN (20:24)
[2023-07-04] MEDS: RIVAROXABAN 15 MG TABLET GT SCH (21:00)
[2023-07-04 21:43] VITALS: O2SAT 98
[2023-07-04] MEDS: LORAZEPAM 0.5 MG TABLET PO PRN (22:27)
[2023-07-05] MEDS: JEVITY 1.2 1000 ML LIQUID GT PRN (01:23)
[2023-07-05] MEDS: BACLOFEN 10 MG TABLET GT SCH ×4 (05:04→17:01)
[2023-07-05] MEDS: OMEPRAZOLE 20 MG CAPSULE.DR GT SCH (05:04)
[2023-07-05] MEDS: MULTIVIT, IRON, MIN NO. 8, FA TABLET GT SCH (05:04)
[2023-07-05 07:33] VITALS: TEMP 98.1
[2023-07-05] MEDS: POLYVINYL ALCOHOL OPHT DROPS 15 ML BOTTLE EACHEYE SCH ×3 (08:30→17:00)
[2023-07-05] MEDS: AMOXICILLIN-CLAVUL 500-125MG TABLET GT SCH (08:30)
[2023-07-05] MEDS: DOCUSATE SODIUM 100 MG/10 ML LIQUID UDC GT SCH (08:31)
[2023-07-05] MEDS: busPIRone 10 MG TABLET GT SCH ×3 (08:31→17:00)
[2023-07-05] MEDS: VALPROIC ACID 250 MG/5 ML LIQUID UDC GT SCH ×4 (08:33→20:26)
[2023-07-05] MEDS: ACIDOPHILUS/BULGARICUS CHEW TAB GT SCH ×2 (08:33→20:28)
[2023-07-05] MEDS: ESCITALOPRAM OXALATE 10 MG TABLET GT SCH (08:35)
[2023-07-05] MEDS: levETIRAcetam 500 MG/5 ML LIQUID UDC GT SCH ×2 (08:35→20:26)
[2023-07-05] MEDS: MIRALAX 17 GM POWD.PACK GT SCH (08:36)
[2023-07-05] MEDS: MAGNESIUM GLYCINATE GT SCH (08:38)
[2023-07-05] MEDS: POTASSIUM CHLORIDE 40 MEQ/30 ML LIQUID UDC GT SCH (08:39)
[2023-07-05] MEDS: REMEDY ESSENTIAL ZINC PASTE 113 GM TP SCH ×2 (08:40→20:27)
[2023-07-05] MEDS: HYDROGEN PEROXIDE 3% 118 ML BOTTLE TP SCH ×2 (09:35→21:04)
[2023-07-05 12:27] VITALS: O2SAT 98
[2023-07-05] MEDS: GABAPENTIN 300 MG CAPSULE GT SCH (17:01)
[2023-07-05] MEDS: PROTEIN SUPPLEMENT (PROSTAT) 30 ML LIQUID GT SCH (20:26)
[2023-07-05] MEDS: OMEGA-3 FATTY ACIDS/FISH OIL CAPSULE GT SCH (20:41)
[2023-07-05] MEDS: LORAZEPAM 0.5 MG TABLET PO PRN (20:42)
[2023-07-05] MEDS: CRANBERRY 500 MG GT SCH (20:50)
[2023-07-05] MEDS: NUTRISOURCE FIBER 4 GM PACKET GT SCH (21:00)
[2023-07-05] MEDS: RIVAROXABAN 15 MG TABLET GT SCH (21:00)
[2023-07-05 21:05] VITALS: TEMP 98.6
[2023-07-06 00:15] VITALS: O2SAT 98
[2023-07-06] MEDS: MULTIVIT, IRON, MIN NO. 8, FA TABLET GT SCH (05:46)
[2023-07-06] MEDS: BACLOFEN 10 MG TABLET GT SCH ×5 (05:46→23:56)
[2023-07-06] MEDS: OMEPRAZOLE 20 MG CAPSULE.DR GT SCH (05:46)
[2023-07-06] MEDS: JEVITY 1.2 1000 ML LIQUID GT PRN (05:47)
[2023-07-06] MEDS: HYDROGEN PEROXIDE 3% 118 ML BOTTLE TP SCH ×2 (08:23→19:06)
[2023-07-06 08:26] VITALS: O2SAT 98
[2023-07-06] MEDS: DOCUSATE SODIUM 100 MG/10 ML LIQUID UDC GT SCH (09:00)
[2023-07-06] MEDS: MIRALAX 17 GM POWD.PACK GT SCH (09:00)
[2023-07-06] MEDS: POLYVINYL ALCOHOL OPHT DROPS 15 ML BOTTLE EACHEYE SCH ×3 (09:16→16:53)
[2023-07-06] MEDS: busPIRone 10 MG TABLET GT SCH ×3 (09:16→16:53)
[2023-07-06] MEDS: VALPROIC ACID 250 MG/5 ML LIQUID UDC GT SCH ×4 (09:17→20:20)
[2023-07-06] MEDS: ACIDOPHILUS/BULGARICUS CHEW TAB GT SCH ×2 (09:18→20:20)
[2023-07-06] MEDS: levETIRAcetam 500 MG/5 ML LIQUID UDC GT SCH ×2 (09:20→20:20)
[2023-07-06] MEDS: ESCITALOPRAM OXALATE 10 MG TABLET GT SCH (09:22)
[2023-07-06] MEDS: MAGNESIUM GLYCINATE GT SCH (09:22)
[2023-07-06] MEDS: POTASSIUM CHLORIDE 40 MEQ/30 ML LIQUID UDC GT SCH (09:23)
[2023-07-06] MEDS: COAL TAR TOP SCH (09:24)
[2023-07-06] MEDS: REMEDY ESSENTIAL ZINC PASTE 113 GM TP SCH ×2 (09:24→20:21)
[2023-07-06 10:57] VITALS: TEMP 98.2
[2023-07-06] MEDS: GABAPENTIN 300 MG CAPSULE GT SCH (16:55)
[2023-07-06] MEDS: ACETAMINOPHEN 650 MG/20 ML UDC- SA PATIENTS-PAIN ONLY GT PRN (17:08)
[2023-07-06 20:00] VITALS: TEMP 98.6
[2023-07-06] MEDS: OMEGA-3 FATTY ACIDS/FISH OIL CAPSULE GT SCH (20:20)
[2023-07-06] MEDS: CRANBERRY 500 MG GT SCH (20:20)
[2023-07-06] MEDS: PROTEIN SUPPLEMENT (PROSTAT) 30 ML LIQUID GT SCH (20:21)
[2023-07-06] MEDS: NUTRISOURCE FIBER 4 GM PACKET GT SCH (20:21)
[2023-07-06] MEDS: MELATONIN 3MG TABLET GT PRN (20:23)
[2023-07-06 20:25] VITALS: O2SAT 98
[2023-07-06] MEDS: RIVAROXABAN 15 MG TABLET GT SCH (21:00)
[2023-07-06 23:40] LABS: *BILIRUBIN,URIN NEGATIVE (NEGATIVE); *BLOOD, URINE NEGATIVE (NEGATIVE); *CLARITY,URINE CLEAR (CLEAR); *COLOR,URINE YELLOW (YELLOW); *KETONES,URINE TRACE (NEGATIVE); *PROTEIN,URINE NEGATIVE (NEGATIVE); *UROBILINOGEN,URINE 0.2 E.U./dl (NORMAL); LEUKOCYTE ESTERASE ,URINE NEGATIVE (NEGATIVE); NITRITE, URINE NEGATIVE (NEGATIVE); UGLUCOSE NEGATIVE (NEGATIVE)
[2023-07-07] MEDS: BACLOFEN 10 MG TABLET GT SCH ×3 (05:07→17:05)
[2023-07-07] MEDS: MULTIVIT, IRON, MIN NO. 8, FA TABLET GT SCH (05:07)
[2023-07-07] MEDS: OMEPRAZOLE 20 MG CAPSULE.DR GT SCH (05:07)
[2023-07-07 06:54] LABS: BASOPHILS % (AUTO) 0.3 % (0.0-2.0); EOSINOPHILS # (AUTO) 0.2 K/uL (0.0-0.7); EOSINOPHILS % (AUTO) 1.6 % (0.0-7.0); HEMATOCRIT 40.1 % (31.2-41.9); HEMOGLOBIN 13.7 g/dL (10.9-14.3); LYMPHOCYTES # (AUTO) 1.9 K/uL (0.8-4.8); LYMPHOCYTES % (AUTO) 15.5 % (20.5-51.5); MEAN CORPUSCULAR HGB CONC 34 g/dL (32.3-35.6); MEAN CORPUSCULAR VOLUME 93.8 fL (75.5-95.3); MONOCYTES # (AUTO) 0.9 K/uL (0.1-1.30); NEUTROPHILS # (AUTO) 9.3 K/uL (1.8-8.9); NEUTROPHILS % (AUTO) 75.6 % (38.5-71.5); PLATELET COUNT (AUTO) 184 K/uL (179-408); RED BLOOD CELL COUNT(AUTO) 4.28 MIL/uL (3.63-4.92); RED CELL DISTRIBUTION WIDTH 13.7 % (12.3-17.7); WHITE BLOOD COUNT (AUTO) 12.2 K/uL (3.8-11.8)
[2023-07-07 06:59] LABS: DIFFERENTIAL COMMENT 1
[2023-07-07] MEDS: HYDROGEN PEROXIDE 3% 118 ML BOTTLE TP SCH ×2 (07:22→19:21)
[2023-07-07 07:30] LABS: THYROID STIMULATING HORMONE 4.241 mIU/mL (0.358-3.740)
[2023-07-07 07:51] LABS: BILIRUBIN,TOTAL 0.5 mg/dL (0.2-1.0); CALCIUM 8.6 mg/dL (8.5-10.1); CREATININE 0.6 mg/dL (0.6-1.3); PHOSPHOROUS 4.5 mg/dL (2.5-4.9); POTASSIUM 4.1 mmol/L (3.5-5.1); TOTAL PROTEIN, SERUM 7.1 g/dL (6.4-8.2)
[2023-07-07 08:00] VITALS: TEMP 97.2
[2023-07-07] MEDS: POLYVINYL ALCOHOL OPHT DROPS 15 ML BOTTLE EACHEYE SCH ×3 (08:43→17:02)
[2023-07-07] MEDS: busPIRone 10 MG TABLET GT SCH ×3 (08:43→17:03)
[2023-07-07] MEDS: ESCITALOPRAM OXALATE 10 MG TABLET GT SCH (08:44)
[2023-07-07] MEDS: levETIRAcetam 500 MG/5 ML LIQUID UDC GT SCH ×2 (08:45→20:53)
[2023-07-07] MEDS: ACIDOPHILUS/BULGARICUS CHEW TAB GT SCH ×2 (08:46→20:53)
[2023-07-07] MEDS: DOCUSATE SODIUM 100 MG/10 ML LIQUID UDC GT SCH (08:48)
[2023-07-07] MEDS: VALPROIC ACID 250 MG/5 ML LIQUID UDC GT SCH ×4 (08:49→20:49)
[2023-07-07] MEDS: MIRALAX 17 GM POWD.PACK GT SCH (08:50)
[2023-07-07] MEDS: MAGNESIUM GLYCINATE GT SCH (08:52)
[2023-07-07] MEDS: POTASSIUM CHLORIDE 40 MEQ/30 ML LIQUID UDC GT SCH (08:53)
[2023-07-07] MEDS: REMEDY ESSENTIAL ZINC PASTE 113 GM TP SCH ×2 (08:54→20:56)
[2023-07-07 09:46] VITALS: O2SAT 98
[2023-07-07] MEDS: JEVITY 1.2 1000 ML LIQUID GT PRN (12:50)
[2023-07-07] MEDS: GABAPENTIN 300 MG CAPSULE GT SCH (17:07)
[2023-07-07 20:00] VITALS: TEMP 97.4
[2023-07-07] MEDS: OMEGA-3 FATTY ACIDS/FISH OIL CAPSULE GT SCH (20:52)
[2023-07-07] MEDS: CRANBERRY 500 MG GT SCH (20:53)
[2023-07-07] MEDS: NUTRISOURCE FIBER 4 GM PACKET GT SCH (20:54)
[2023-07-07] MEDS: PROTEIN SUPPLEMENT (PROSTAT) 30 ML LIQUID GT SCH (20:54)
[2023-07-07] MEDS: RIVAROXABAN 15 MG TABLET GT SCH (20:55)
[2023-07-07] MEDS: MELATONIN 3MG TABLET GT PRN (21:00)
[2023-07-07 21:08] VITALS: O2SAT 98
[2023-07-08] MEDS: BACLOFEN 10 MG TABLET GT SCH ×4 (06:13→16:59)
[2023-07-08] MEDS: OMEPRAZOLE 20 MG CAPSULE.DR GT SCH (06:13)
[2023-07-08] MEDS: MULTIVIT, IRON, MIN NO. 8, FA TABLET GT SCH (06:13)
[2023-07-08 08:00] VITALS: TEMP 97.8
[2023-07-08] MEDS: POLYVINYL ALCOHOL OPHT DROPS 15 ML BOTTLE EACHEYE SCH ×3 (08:50→16:54)
[2023-07-08] MEDS: busPIRone 10 MG TABLET GT SCH ×3 (08:51→16:56)
[2023-07-08] MEDS: DOCUSATE SODIUM 100 MG/10 ML LIQUID UDC GT SCH (08:52)
[2023-07-08] MEDS: MIRALAX 17 GM POWD.PACK GT SCH (08:53)
[2023-07-08] MEDS: MAGNESIUM GLYCINATE GT SCH (08:54)
[2023-07-08] MEDS: ACIDOPHILUS/BULGARICUS CHEW TAB GT SCH ×2 (08:55→21:46)
[2023-07-08] MEDS: ESCITALOPRAM OXALATE 10 MG TABLET GT SCH (08:56)
[2023-07-08] MEDS: VALPROIC ACID 250 MG/5 ML LIQUID UDC GT SCH ×4 (08:58→21:45)
[2023-07-08] MEDS: REMEDY ESSENTIAL ZINC PASTE 113 GM TP SCH ×2 (08:59→21:47)
[2023-07-08] MEDS: levETIRAcetam 500 MG/5 ML LIQUID UDC GT SCH ×2 (08:59→21:46)
[2023-07-08] MEDS: HYDROGEN PEROXIDE 3% 118 ML BOTTLE TP SCH ×2 (09:00→21:00)
[2023-07-08] MEDS: POTASSIUM CHLORIDE 40 MEQ/30 ML LIQUID UDC GT SCH (09:01)
[2023-07-08 09:30] VITALS: O2SAT 98
[2023-07-08] MEDS: GABAPENTIN 300 MG CAPSULE GT SCH (16:56)
[2023-07-08 20:00] VITALS: TEMP 98.2
[2023-07-08] MEDS: OMEGA-3 FATTY ACIDS/FISH OIL CAPSULE GT SCH (21:45)
[2023-07-08] MEDS: PROTEIN SUPPLEMENT (PROSTAT) 30 ML LIQUID GT SCH (21:46)
[2023-07-08] MEDS: NUTRISOURCE FIBER 4 GM PACKET GT SCH (21:46)
[2023-07-08] MEDS: CRANBERRY 500 MG GT SCH (21:46)
[2023-07-08] MEDS: RIVAROXABAN 15 MG TABLET GT SCH (21:47)
[2023-07-08] MEDS: MELATONIN 3MG TABLET GT PRN (21:48)
[2023-07-09] MEDS: MULTIVIT, IRON, MIN NO. 8, FA TABLET GT SCH (05:40)
[2023-07-09] MEDS: BACLOFEN 10 MG TABLET GT SCH ×5 (05:40→23:01)
[2023-07-09] MEDS: OMEPRAZOLE 20 MG CAPSULE.DR GT SCH (05:40)
[2023-07-09 07:54] VITALS: TEMP 97.4
[2023-07-09] MEDS: POLYVINYL ALCOHOL OPHT DROPS 15 ML BOTTLE EACHEYE SCH ×3 (08:14→17:26)
[2023-07-09] MEDS: DOCUSATE SODIUM 100 MG/10 ML LIQUID UDC GT SCH (08:15)
[2023-07-09] MEDS: busPIRone 10 MG TABLET GT SCH ×3 (08:15→17:27)
[2023-07-09] MEDS: MIRALAX 17 GM POWD.PACK GT SCH (08:16)
[2023-07-09] MEDS: ESCITALOPRAM OXALATE 10 MG TABLET GT SCH (08:16)
[2023-07-09] MEDS: ACIDOPHILUS/BULGARICUS CHEW TAB GT SCH ×2 (08:16→20:22)
[2023-07-09] MEDS: REMEDY ESSENTIAL ZINC PASTE 113 GM TP SCH ×2 (08:23→21:00)
[2023-07-09] MEDS: MAGNESIUM GLYCINATE GT SCH (08:23)
[2023-07-09] MEDS: COAL TAR TOP SCH (08:23)
[2023-07-09] MEDS: VALPROIC ACID 250 MG/5 ML LIQUID UDC GT SCH ×4 (08:26→20:21)
[2023-07-09] MEDS: levETIRAcetam 500 MG/5 ML LIQUID UDC GT SCH ×2 (08:27→20:22)
[2023-07-09] MEDS: POTASSIUM CHLORIDE 40 MEQ/30 ML LIQUID UDC GT SCH (08:28)
[2023-07-09] MEDS: HYDROGEN PEROXIDE 3% 118 ML BOTTLE TP SCH ×2 (09:47→19:10)
[2023-07-09 11:11] VITALS: O2SAT 98
[2023-07-09] MEDS: GABAPENTIN 300 MG CAPSULE GT SCH (17:33)
[2023-07-09 20:00] VITALS: TEMP 97.2
[2023-07-09] MEDS: OMEGA-3 FATTY ACIDS/FISH OIL CAPSULE GT SCH (20:21)
[2023-07-09] MEDS: CRANBERRY 500 MG GT SCH (20:23)
[2023-07-09] MEDS: NUTRISOURCE FIBER 4 GM PACKET GT SCH (20:24)
[2023-07-09] MEDS: PROTEIN SUPPLEMENT (PROSTAT) 30 ML LIQUID GT SCH (20:24)
[2023-07-09] MEDS: MELATONIN 3MG TABLET GT PRN (20:26)
[2023-07-09 20:30] VITALS: O2SAT 98
[2023-07-09] MEDS: RIVAROXABAN 15 MG TABLET GT SCH (21:00)
[2023-07-09] MEDS: LORAZEPAM 0.5 MG TABLET PO PRN (23:00)
[2023-07-09] MEDS: JEVITY 1.2 1000 ML LIQUID GT PRN (23:00)
[2023-07-10] MEDS: MULTIVIT, IRON, MIN NO. 8, FA TABLET GT SCH (05:41)
[2023-07-10] MEDS: BACLOFEN 10 MG TABLET GT SCH ×4 (05:41→23:11)
[2023-07-10] MEDS: OMEPRAZOLE 20 MG CAPSULE.DR GT SCH (05:41)
[2023-07-10 07:48] VITALS: TEMP 97.4
[2023-07-10] MEDS: HYDROGEN PEROXIDE 3% 118 ML BOTTLE TP SCH ×2 (08:30→19:13)
[2023-07-10] MEDS: VALPROIC ACID 250 MG/5 ML LIQUID UDC GT SCH ×4 (08:43→21:11)
[2023-07-10] MEDS: MIRALAX 17 GM POWD.PACK GT SCH (08:43)
[2023-07-10] MEDS: REMEDY ESSENTIAL ZINC PASTE 113 GM TP SCH ×2 (08:43→21:16)
[2023-07-10] MEDS: POTASSIUM CHLORIDE 40 MEQ/30 ML LIQUID UDC GT SCH (08:43)
[2023-07-10] MEDS: levETIRAcetam 500 MG/5 ML LIQUID UDC GT SCH ×2 (08:43→21:13)
[2023-07-10] MEDS: busPIRone 10 MG TABLET GT SCH ×3 (08:43→16:46)
[2023-07-10] MEDS: ACIDOPHILUS/BULGARICUS CHEW TAB GT SCH ×2 (08:43→21:13)
[2023-07-10] MEDS: ESCITALOPRAM OXALATE 10 MG TABLET GT SCH (08:43)
[2023-07-10] MEDS: POLYVINYL ALCOHOL OPHT DROPS 15 ML BOTTLE EACHEYE SCH ×3 (08:43→16:46)
[2023-07-10] MEDS: DOCUSATE SODIUM 100 MG/10 ML LIQUID UDC GT SCH (08:43)
[2023-07-10 10:40] VITALS: O2SAT 98
[2023-07-10] MEDS: GABAPENTIN 300 MG CAPSULE GT SCH (16:46)
[2023-07-10 20:00] VITALS: TEMP 99
[2023-07-10 20:25] VITALS: O2SAT 98
[2023-07-10] MEDS: RIVAROXABAN 15 MG TABLET GT SCH (21:00)
[2023-07-10] MEDS: OMEGA-3 FATTY ACIDS/FISH OIL CAPSULE GT SCH (21:13)
[2023-07-10] MEDS: CRANBERRY 500 MG GT SCH (21:14)
[2023-07-10] MEDS: PROTEIN SUPPLEMENT (PROSTAT) 30 ML LIQUID GT SCH (21:15)
[2023-07-10] MEDS: NUTRISOURCE FIBER 4 GM PACKET GT SCH (21:15)
[2023-07-10] MEDS: MELATONIN 3MG TABLET GT PRN (21:19)
[2023-07-10] MEDS: LORAZEPAM 0.5 MG TABLET PO PRN (23:11)
[2023-07-10] MEDS: JEVITY 1.2 1000 ML LIQUID GT PRN (23:33)
[2023-07-11] MEDS: OMEPRAZOLE 20 MG CAPSULE.DR GT SCH (05:10)
[2023-07-11] MEDS: BACLOFEN 10 MG TABLET GT SCH ×3 (05:10→18:07)
[2023-07-11] MEDS: MULTIVIT, IRON, MIN NO. 8, FA TABLET GT SCH (05:10)
[2023-07-11 08:10] VITALS: TEMP 97.6
[2023-07-11] MEDS: HYDROGEN PEROXIDE 3% 118 ML BOTTLE TP SCH ×2 (08:33→19:07)
[2023-07-11] MEDS: busPIRone 10 MG TABLET GT SCH ×3 (08:41→16:52)
[2023-07-11] MEDS: levETIRAcetam 500 MG/5 ML LIQUID UDC GT SCH ×2 (08:41→21:04)
[2023-07-11] MEDS: POLYVINYL ALCOHOL OPHT DROPS 15 ML BOTTLE EACHEYE SCH ×3 (08:41→16:52)
[2023-07-11] MEDS: POTASSIUM CHLORIDE 40 MEQ/30 ML LIQUID UDC GT SCH (08:41)
[2023-07-11] MEDS: MAGNESIUM GLYCINATE GT SCH (08:41)
[2023-07-11] MEDS: ACIDOPHILUS/BULGARICUS CHEW TAB GT SCH ×2 (08:41→21:04)
[2023-07-11] MEDS: DOCUSATE SODIUM 100 MG/10 ML LIQUID UDC GT SCH (08:41)
[2023-07-11] MEDS: VALPROIC ACID 250 MG/5 ML LIQUID UDC GT SCH ×4 (08:41→21:03)
[2023-07-11] MEDS: REMEDY ESSENTIAL ZINC PASTE 113 GM TP SCH ×2 (08:41→21:04)
[2023-07-11] MEDS: ESCITALOPRAM OXALATE 10 MG TABLET GT SCH (08:41)
[2023-07-11] MEDS: MIRALAX 17 GM POWD.PACK GT SCH (08:41)
[2023-07-11 10:50] VITALS: O2SAT 99
[2023-07-11] MEDS: GABAPENTIN 300 MG CAPSULE GT SCH (16:52)
[2023-07-11 20:25] VITALS: O2SAT 98
[2023-07-11] MEDS: MELATONIN 3MG TABLET GT PRN (21:03)
[2023-07-11] MEDS: NUTRISOURCE FIBER 4 GM PACKET GT SCH (21:04)
[2023-07-11] MEDS: PROTEIN SUPPLEMENT (PROSTAT) 30 ML LIQUID GT SCH (21:04)
[2023-07-11] MEDS: RIVAROXABAN 15 MG TABLET GT SCH (21:04)
[2023-07-11] MEDS: OMEGA-3 FATTY ACIDS/FISH OIL CAPSULE GT SCH (21:04)
[2023-07-11] MEDS: CRANBERRY 500 MG GT SCH (21:04)
[2023-07-11] MEDS: JEVITY 1.2 1000 ML LIQUID GT PRN (22:02)
[2023-07-11] MEDS: LORAZEPAM 0.5 MG TABLET PO PRN (22:04)
[2023-07-11 22:26] VITALS: TEMP 97.7
[2023-07-12] MEDS: BACLOFEN 10 MG TABLET GT SCH ×4 (00:25→17:50)
[2023-07-12] MEDS: OMEPRAZOLE 20 MG CAPSULE.DR GT SCH (05:10)
[2023-07-12] MEDS: MULTIVIT, IRON, MIN NO. 8, FA TABLET GT SCH (05:10)
[2023-07-12] MEDS: HYDROGEN PEROXIDE 3% 118 ML BOTTLE TP SCH ×2 (07:24→21:39)
[2023-07-12 08:00] VITALS: TEMP 98
[2023-07-12] MEDS: MAGNESIUM GLYCINATE GT SCH (10:00)
[2023-07-12] MEDS: MIRALAX 17 GM POWD.PACK GT SCH (10:00)
[2023-07-12] MEDS: POLYVINYL ALCOHOL OPHT DROPS 15 ML BOTTLE EACHEYE SCH ×3 (10:00→16:25)
[2023-07-12] MEDS: ESCITALOPRAM OXALATE 10 MG TABLET GT SCH (10:00)
[2023-07-12] MEDS: REMEDY ESSENTIAL ZINC PASTE 113 GM TP SCH ×2 (10:00→20:49)
[2023-07-12] MEDS: ACIDOPHILUS/BULGARICUS CHEW TAB GT SCH ×2 (10:00→20:49)
[2023-07-12] MEDS: POTASSIUM CHLORIDE 40 MEQ/30 ML LIQUID UDC GT SCH (10:00)
[2023-07-12] MEDS: levETIRAcetam 500 MG/5 ML LIQUID UDC GT SCH ×2 (10:00→20:49)
[2023-07-12] MEDS: DOCUSATE SODIUM 100 MG/10 ML LIQUID UDC GT SCH (10:00)
[2023-07-12] MEDS: VALPROIC ACID 250 MG/5 ML LIQUID UDC GT SCH ×4 (10:00→20:49)
[2023-07-12] MEDS: busPIRone 10 MG TABLET GT SCH ×3 (10:00→16:25)
[2023-07-12 13:01] VITALS: O2SAT 99
[2023-07-12] MEDS: GABAPENTIN 300 MG CAPSULE GT SCH (16:27)
[2023-07-12] MEDS: JEVITY 1.2 1000 ML LIQUID GT PRN (17:25)
[2023-07-12] MEDS: SULFAMETH/TRIMETH 800/160 MG TABLET PO SCH (17:49)
[2023-07-12 20:00] VITALS: TEMP 98.1
[2023-07-12] MEDS: OMEGA-3 FATTY ACIDS/FISH OIL CAPSULE GT SCH (20:49)
[2023-07-12] MEDS: PROTEIN SUPPLEMENT (PROSTAT) 30 ML LIQUID GT SCH (20:49)
[2023-07-12] MEDS: MELATONIN 3MG TABLET GT PRN (20:49)
[2023-07-12] MEDS: CRANBERRY 500 MG GT SCH (20:49)
[2023-07-12] MEDS: NUTRISOURCE FIBER 4 GM PACKET GT SCH (20:49)
[2023-07-12] MEDS: ACETAMINOPHEN 650 MG/20 ML UDC- SA PATIENTS-PAIN ONLY GT PRN (20:50)
[2023-07-12] MEDS: RIVAROXABAN 15 MG TABLET GT SCH (21:00)
[2023-07-12] MEDS: LORAZEPAM 0.5 MG TABLET PO PRN (22:05)
[2023-07-13] MEDS: BACLOFEN 10 MG TABLET GT SCH ×5 (00:14→23:26)
[2023-07-13] MEDS: OMEPRAZOLE 20 MG CAPSULE.DR GT SCH (05:10)
[2023-07-13] MEDS: SULFAMETH/TRIMETH 800/160 MG TABLET PO SCH ×2 (05:10→17:58)
[2023-07-13] MEDS: MULTIVIT, IRON, MIN NO. 8, FA TABLET GT SCH (05:10)
[2023-07-13] MEDS: HYDROGEN PEROXIDE 3% 118 ML BOTTLE TP SCH ×2 (07:29→21:00)
[2023-07-13] MEDS: POLYVINYL ALCOHOL OPHT DROPS 15 ML BOTTLE EACHEYE SCH ×3 (08:38→16:39)
[2023-07-13] MEDS: busPIRone 10 MG TABLET GT SCH ×3 (08:39→16:40)
[2023-07-13] MEDS: DOCUSATE SODIUM 100 MG/10 ML LIQUID UDC GT SCH (08:39)
[2023-07-13] MEDS: VALPROIC ACID 250 MG/5 ML LIQUID UDC GT SCH ×4 (08:41→21:00)
[2023-07-13] MEDS: ACIDOPHILUS/BULGARICUS CHEW TAB GT SCH ×2 (08:41→21:00)
[2023-07-13] MEDS: ESCITALOPRAM OXALATE 10 MG TABLET GT SCH (08:42)
[2023-07-13] MEDS: MIRALAX 17 GM POWD.PACK GT SCH (08:42)
[2023-07-13] MEDS: levETIRAcetam 500 MG/5 ML LIQUID UDC GT SCH ×2 (08:42→21:00)
[2023-07-13] MEDS: REMEDY ESSENTIAL ZINC PASTE 113 GM TP SCH ×2 (08:43→21:00)
[2023-07-13] MEDS: MAGNESIUM GLYCINATE GT SCH (08:43)
[2023-07-13] MEDS: COAL TAR TOP SCH (08:43)
[2023-07-13] MEDS: POTASSIUM CHLORIDE 40 MEQ/30 ML LIQUID UDC GT SCH (08:43)
[2023-07-13 09:25] VITALS: TEMP 97.1
[2023-07-13 13:27] VITALS: O2SAT 99
[2023-07-13] MEDS: ACETAMINOPHEN 650 MG/20 ML UDC- SA PATIENTS-PAIN ONLY GT PRN (15:00)
[2023-07-13] MEDS: GABAPENTIN 300 MG CAPSULE GT SCH (16:40)
[2023-07-13 20:00] VITALS: TEMP 98.1
[2023-07-13] MEDS: CRANBERRY 500 MG GT SCH (21:00)
[2023-07-13] MEDS: OMEGA-3 FATTY ACIDS/FISH OIL CAPSULE GT SCH (21:00)
[2023-07-13] MEDS: PROTEIN SUPPLEMENT (PROSTAT) 30 ML LIQUID GT SCH (21:00)
[2023-07-13] MEDS: NUTRISOURCE FIBER 4 GM PACKET GT SCH (21:00)
[2023-07-13] MEDS: RIVAROXABAN 15 MG TABLET GT SCH (21:00)
[2023-07-14] MEDS: JEVITY 1.2 1000 ML LIQUID GT PRN (03:18)
[2023-07-14] MEDS: SULFAMETH/TRIMETH 800/160 MG TABLET PO SCH ×2 (05:50→17:13)
[2023-07-14] MEDS: BACLOFEN 10 MG TABLET GT SCH ×4 (05:50→23:46)
[2023-07-14] MEDS: MULTIVIT, IRON, MIN NO. 8, FA TABLET GT SCH (05:50)
[2023-07-14] MEDS: OMEPRAZOLE 20 MG CAPSULE.DR GT SCH (05:50)
[2023-07-14] MEDS: POLYVINYL ALCOHOL OPHT DROPS 15 ML BOTTLE EACHEYE SCH ×3 (08:13→16:26)
[2023-07-14] MEDS: busPIRone 10 MG TABLET GT SCH ×3 (08:13→16:15)
[2023-07-14] MEDS: DOCUSATE SODIUM 100 MG/10 ML LIQUID UDC GT SCH (08:14)
[2023-07-14] MEDS: ACIDOPHILUS/BULGARICUS CHEW TAB GT SCH ×2 (08:15→20:48)
[2023-07-14] MEDS: VALPROIC ACID 250 MG/5 ML LIQUID UDC GT SCH ×4 (08:15→20:48)
[2023-07-14] MEDS: ESCITALOPRAM OXALATE 10 MG TABLET GT SCH (08:16)
[2023-07-14] MEDS: levETIRAcetam 500 MG/5 ML LIQUID UDC GT SCH ×2 (08:16→20:49)
[2023-07-14] MEDS: MIRALAX 17 GM POWD.PACK GT SCH (08:17)
[2023-07-14] MEDS: MAGNESIUM GLYCINATE GT SCH (08:18)
[2023-07-14] MEDS: POTASSIUM CHLORIDE 40 MEQ/30 ML LIQUID UDC GT SCH (08:19)
[2023-07-14] MEDS: REMEDY ESSENTIAL ZINC PASTE 113 GM TP SCH ×2 (09:00→20:53)
[2023-07-14] MEDS: HYDROGEN PEROXIDE 3% 118 ML BOTTLE TP SCH ×2 (09:00→19:12)
[2023-07-14 10:59] VITALS: TEMP 97.8
[2023-07-14 14:22] VITALS: O2SAT 98
[2023-07-14] MEDS: GABAPENTIN 300 MG CAPSULE GT SCH (16:17)
[2023-07-14 20:00] VITALS: TEMP 98.6
[2023-07-14 20:45] VITALS: O2SAT 98
[2023-07-14] MEDS: OMEGA-3 FATTY ACIDS/FISH OIL CAPSULE GT SCH (20:48)
[2023-07-14] MEDS: CRANBERRY 500 MG GT SCH (20:49)
[2023-07-14] MEDS: PROTEIN SUPPLEMENT (PROSTAT) 30 ML LIQUID GT SCH (20:50)
[2023-07-14] MEDS: NUTRISOURCE FIBER 4 GM PACKET GT SCH (20:50)
[2023-07-14] MEDS: RIVAROXABAN 15 MG TABLET GT SCH (20:51)
[2023-07-14] MEDS: MELATONIN 3MG TABLET GT PRN (21:00)
[2023-07-15] MEDS: LORAZEPAM 0.5 MG TABLET PO PRN (01:25)
[2023-07-15] MEDS: BACLOFEN 10 MG TABLET GT SCH ×3 (05:57→17:10)
[2023-07-15] MEDS: OMEPRAZOLE 20 MG CAPSULE.DR GT SCH (05:58)
[2023-07-15] MEDS: SULFAMETH/TRIMETH 800/160 MG TABLET PO SCH ×2 (05:58→17:10)
[2023-07-15] MEDS: MULTIVIT, IRON, MIN NO. 8, FA TABLET GT SCH (05:58)
[2023-07-15 08:00] VITALS: TEMP 97.9
[2023-07-15 08:24] VITALS: O2SAT 98
[2023-07-15] MEDS: HYDROGEN PEROXIDE 3% 118 ML BOTTLE TP SCH ×2 (08:24→19:14)
[2023-07-15] MEDS: busPIRone 10 MG TABLET GT SCH ×3 (08:39→17:10)
[2023-07-15] MEDS: POLYVINYL ALCOHOL OPHT DROPS 15 ML BOTTLE EACHEYE SCH ×3 (08:39→17:10)
[2023-07-15] MEDS: VALPROIC ACID 250 MG/5 ML LIQUID UDC GT SCH ×4 (08:40→21:27)
[2023-07-15] MEDS: DOCUSATE SODIUM 100 MG/10 ML LIQUID UDC GT SCH (08:40)
[2023-07-15] MEDS: MIRALAX 17 GM POWD.PACK GT SCH (08:41)
[2023-07-15] MEDS: levETIRAcetam 500 MG/5 ML LIQUID UDC GT SCH ×2 (08:41→21:27)
[2023-07-15] MEDS: ESCITALOPRAM OXALATE 10 MG TABLET GT SCH (08:41)
[2023-07-15] MEDS: ACIDOPHILUS/BULGARICUS CHEW TAB GT SCH ×2 (08:41→21:27)
[2023-07-15] MEDS: MAGNESIUM GLYCINATE GT SCH (08:42)
[2023-07-15] MEDS: POTASSIUM CHLORIDE 40 MEQ/30 ML LIQUID UDC GT SCH (08:42)
[2023-07-15] MEDS: REMEDY ESSENTIAL ZINC PASTE 113 GM TP SCH ×2 (08:43→21:27)
[2023-07-15] MEDS: JEVITY 1.2 1000 ML LIQUID GT PRN (15:38)
[2023-07-15] MEDS: GABAPENTIN 300 MG CAPSULE GT SCH (17:10)
[2023-07-15 20:35] VITALS: TEMP 98.2
[2023-07-15 21:05] VITALS: O2SAT 98
[2023-07-15] MEDS: CRANBERRY 500 MG GT SCH (21:27)
[2023-07-15] MEDS: NUTRISOURCE FIBER 4 GM PACKET GT SCH (21:27)
[2023-07-15] MEDS: PROTEIN SUPPLEMENT (PROSTAT) 30 ML LIQUID GT SCH (21:27)
[2023-07-15] MEDS: RIVAROXABAN 15 MG TABLET GT SCH (21:27)
[2023-07-15] MEDS: OMEGA-3 FATTY ACIDS/FISH OIL CAPSULE GT SCH (21:27)
[2023-07-15] MEDS: MELATONIN 3MG TABLET GT PRN (22:00)
[2023-07-16] MEDS: MULTIVIT, IRON, MIN NO. 8, FA TABLET GT SCH (06:13)
[2023-07-16] MEDS: SULFAMETH/TRIMETH 800/160 MG TABLET PO SCH ×2 (06:13→17:00)
[2023-07-16] MEDS: OMEPRAZOLE 20 MG CAPSULE.DR GT SCH (06:13)
[2023-07-16] MEDS: BACLOFEN 10 MG TABLET GT SCH ×5 (06:13→23:53)
[2023-07-16] MEDS: HYDROGEN PEROXIDE 3% 118 ML BOTTLE TP SCH ×2 (09:00→19:33)
[2023-07-16] MEDS: busPIRone 10 MG TABLET GT SCH ×3 (09:32→17:00)
[2023-07-16] MEDS: POLYVINYL ALCOHOL OPHT DROPS 15 ML BOTTLE EACHEYE SCH ×3 (09:32→17:00)
[2023-07-16] MEDS: VALPROIC ACID 250 MG/5 ML LIQUID UDC GT SCH ×4 (09:33→20:47)
[2023-07-16] MEDS: DOCUSATE SODIUM 100 MG/10 ML LIQUID UDC GT SCH (09:33)
[2023-07-16] MEDS: ESCITALOPRAM OXALATE 10 MG TABLET GT SCH (09:33)
[2023-07-16] MEDS: ACIDOPHILUS/BULGARICUS CHEW TAB GT SCH ×2 (09:33→20:48)
[2023-07-16] MEDS: levETIRAcetam 500 MG/5 ML LIQUID UDC GT SCH ×2 (09:33→20:48)
[2023-07-16] MEDS: MAGNESIUM GLYCINATE GT SCH (09:33)
[2023-07-16] MEDS: MIRALAX 17 GM POWD.PACK GT SCH (09:33)
[2023-07-16] MEDS: COAL TAR TOP SCH (09:34)
[2023-07-16] MEDS: POTASSIUM CHLORIDE 40 MEQ/30 ML LIQUID UDC GT SCH (09:34)
[2023-07-16] MEDS: REMEDY ESSENTIAL ZINC PASTE 113 GM TP SCH ×2 (09:34→20:52)
[2023-07-16 10:40] VITALS: O2SAT 99
[2023-07-16 11:37] VITALS: TEMP 97.7
[2023-07-16] MEDS: GABAPENTIN 300 MG CAPSULE GT SCH (17:00)
[2023-07-16] MEDS ORDERED: LORAZEPAM 2 MG/1 ML VIAL IV PRN (20:15)
[2023-07-16 20:45] VITALS: TEMP 97.4
[2023-07-16] MEDS: OMEGA-3 FATTY ACIDS/FISH OIL CAPSULE GT SCH (20:47)
[2023-07-16] MEDS: CRANBERRY 500 MG GT SCH (20:49)
[2023-07-16] MEDS: NUTRISOURCE FIBER 4 GM PACKET GT SCH (20:49)
[2023-07-16] MEDS: PROTEIN SUPPLEMENT (PROSTAT) 30 ML LIQUID GT SCH (20:50)
[2023-07-16] MEDS: RIVAROXABAN 15 MG TABLET GT SCH (21:00)
[2023-07-16 21:10] VITALS: O2SAT 98
[2023-07-17] MEDS: BACLOFEN 10 MG TABLET GT SCH ×3 (05:20→17:13)
[2023-07-17] MEDS: MULTIVIT, IRON, MIN NO. 8, FA TABLET GT SCH (05:20)
[2023-07-17] MEDS: SULFAMETH/TRIMETH 800/160 MG TABLET PO SCH (05:20)
[2023-07-17] MEDS: OMEPRAZOLE 20 MG CAPSULE.DR GT SCH (05:20)
[2023-07-17] MEDS: HYDROGEN PEROXIDE 3% 118 ML BOTTLE TP SCH ×2 (07:33→19:25)
[2023-07-17 08:01] VITALS: TEMP 97.7
[2023-07-17 08:20] LABS: CALCIUM 9.2 mg/dL (8.5-10.1); CREATININE 0.6 mg/dL (0.6-1.3); POTASSIUM 4.5 mmol/L (3.5-5.1)
[2023-07-17] MEDS: busPIRone 10 MG TABLET GT SCH ×3 (09:24→17:10)
[2023-07-17] MEDS: POLYVINYL ALCOHOL OPHT DROPS 15 ML BOTTLE EACHEYE SCH ×3 (09:24→17:10)
[2023-07-17] MEDS: DOCUSATE SODIUM 100 MG/10 ML LIQUID UDC GT SCH (09:24)
[2023-07-17] MEDS: ACIDOPHILUS/BULGARICUS CHEW TAB GT SCH ×2 (09:25→20:51)
[2023-07-17] MEDS: VALPROIC ACID 250 MG/5 ML LIQUID UDC GT SCH ×4 (09:25→20:50)
[2023-07-17] MEDS: MIRALAX 17 GM POWD.PACK GT SCH (09:26)
[2023-07-17] MEDS: ESCITALOPRAM OXALATE 10 MG TABLET GT SCH (09:26)
[2023-07-17] MEDS: levETIRAcetam 500 MG/5 ML LIQUID UDC GT SCH ×2 (09:26→20:52)
[2023-07-17] MEDS: POTASSIUM CHLORIDE 40 MEQ/30 ML LIQUID UDC GT SCH (09:26)
[2023-07-17] MEDS: MAGNESIUM GLYCINATE GT SCH (09:26)
[2023-07-17] MEDS: REMEDY ESSENTIAL ZINC PASTE 113 GM TP SCH ×2 (09:27→21:07)
[2023-07-17 10:09] VITALS: O2SAT 99
[2023-07-17] MEDS: GABAPENTIN 300 MG CAPSULE GT SCH (17:13)
[2023-07-17] MEDS ORDERED: LORAZEPAM 2 MG/1 ML VIAL IM ONE (18:00)
[2023-07-17] MEDS ORDERED: LORAZEPAM 2 MG/1 ML VIAL IM PRN (18:26)
[2023-07-17 20:00] VITALS: TEMP 98.4
[2023-07-17] MEDS: OMEGA-3 FATTY ACIDS/FISH OIL CAPSULE GT SCH (20:50)
[2023-07-17] MEDS: NUTRISOURCE FIBER 4 GM PACKET GT SCH (20:52)
[2023-07-17] MEDS: CRANBERRY 500 MG GT SCH (20:52)
[2023-07-17] MEDS: PROTEIN SUPPLEMENT (PROSTAT) 30 ML LIQUID GT SCH (20:53)
[2023-07-17] MEDS: MELATONIN 3MG TABLET GT PRN (20:54)
[2023-07-17] MEDS: RIVAROXABAN 15 MG TABLET GT SCH (21:00)
[2023-07-17 21:15] VITALS: O2SAT 98
[2023-07-18] MEDS: LORAZEPAM 0.5 MG TABLET PO PRN ×2 (02:10→20:27)
[2023-07-18] MEDS: MULTIVIT, IRON, MIN NO. 8, FA TABLET GT SCH (05:08)
[2023-07-18] MEDS: BACLOFEN 10 MG TABLET GT SCH ×4 (05:08→17:49)
[2023-07-18] MEDS: OMEPRAZOLE 20 MG CAPSULE.DR GT SCH (05:08)
[2023-07-18 07:31] VITALS: TEMP 97.6
[2023-07-18] MEDS: busPIRone 10 MG TABLET GT SCH ×3 (09:10→17:48)
[2023-07-18] MEDS: POLYVINYL ALCOHOL OPHT DROPS 15 ML BOTTLE EACHEYE SCH ×3 (09:10→17:48)
[2023-07-18] MEDS: DOCUSATE SODIUM 100 MG/10 ML LIQUID UDC GT SCH (09:11)
[2023-07-18] MEDS: VALPROIC ACID 250 MG/5 ML LIQUID UDC GT SCH ×4 (09:12→20:24)
[2023-07-18] MEDS: levETIRAcetam 500 MG/5 ML LIQUID UDC GT SCH ×2 (09:12→20:24)
[2023-07-18] MEDS: ACIDOPHILUS/BULGARICUS CHEW TAB GT SCH ×2 (09:12→20:25)
[2023-07-18] MEDS: MIRALAX 17 GM POWD.PACK GT SCH (09:13)
[2023-07-18] MEDS: ESCITALOPRAM OXALATE 10 MG TABLET GT SCH (09:13)
[2023-07-18] MEDS: MAGNESIUM GLYCINATE GT SCH (09:14)
[2023-07-18] MEDS: POTASSIUM CHLORIDE 40 MEQ/30 ML LIQUID UDC GT SCH (09:14)
[2023-07-18] MEDS: REMEDY ESSENTIAL ZINC PASTE 113 GM TP SCH ×2 (09:15→20:25)
[2023-07-18] MEDS: HYDROGEN PEROXIDE 3% 118 ML BOTTLE TP SCH ×2 (09:50→19:10)
[2023-07-18] MEDS ORDERED: TUBERCULIN,PURIF.PROT.DERIV. 5 TU/0.1 ML TEST ID SCH (12:00)
[2023-07-18 14:35] VITALS: O2SAT 98
[2023-07-18] MEDS: GABAPENTIN 300 MG CAPSULE GT SCH (17:48)
[2023-07-18] MEDS: PROTEIN SUPPLEMENT (PROSTAT) 30 ML LIQUID GT SCH (20:25)
[2023-07-18] MEDS: CRANBERRY 500 MG GT SCH (20:25)
[2023-07-18] MEDS: NUTRISOURCE FIBER 4 GM PACKET GT SCH (20:25)
[2023-07-18] MEDS: OMEGA-3 FATTY ACIDS/FISH OIL CAPSULE GT SCH (20:25)
[2023-07-18] MEDS: MELATONIN 3MG TABLET GT PRN (20:26)
[2023-07-18] MEDS: ACETAMINOPHEN 650 MG/20 ML UDC- SA PATIENTS-PAIN ONLY GT PRN (20:27)
[2023-07-18 20:51] VITALS: TEMP 98.2
[2023-07-18] MEDS: RIVAROXABAN 15 MG TABLET GT SCH (21:49)
[2023-07-19 00:28] VITALS: O2SAT 98
[2023-07-19] MEDS: BACLOFEN 10 MG TABLET GT SCH ×5 (00:44→23:17)
[2023-07-19] MEDS: JEVITY 1.2 1000 ML LIQUID GT PRN (05:27)
[2023-07-19] MEDS: OMEPRAZOLE 20 MG CAPSULE.DR GT SCH (05:27)
[2023-07-19] MEDS: MULTIVIT, IRON, MIN NO. 8, FA TABLET GT SCH (05:27)
[2023-07-19 05:59] LABS: BASOPHILS # (AUTO) 0.1 K/UL (0.0-0.2); BASOPHILS % (AUTO) 0.6 % (0.0-2.0); EOSINOPHILS # (AUTO) 0.3 K/uL (0.0-0.7); EOSINOPHILS % (AUTO) 3.6 % (0.0-7.0); HEMATOCRIT 43.3 % (31.2-41.9); HEMOGLOBIN 14.5 g/dL (10.9-14.3); LYMPHOCYTES # (AUTO) 3.8 K/uL (0.8-4.8); LYMPHOCYTES % (AUTO) 45.6 % (20.5-51.5); MEAN CORPUSCULAR HGB CONC 34 g/dL (32.3-35.6); MEAN CORPUSCULAR VOLUME 95.6 fL (75.5-95.3); MONOCYTES # (AUTO) 0.9 K/uL (0.1-1.30); MONOCYTES % (AUTO) 10.9 % (0.0-11.0); NEUTROPHILS # (AUTO) 3.3 K/uL (1.8-8.9); NEUTROPHILS % (AUTO) 39.3 % (38.5-71.5); PLATELET COUNT (AUTO) 171 K/uL (179-408); RED BLOOD CELL COUNT(AUTO) 4.53 MIL/uL (3.63-4.92); RED CELL DISTRIBUTION WIDTH 13.7 % (12.3-17.7); WHITE BLOOD COUNT (AUTO) 8.4 K/uL (3.8-11.8)
[2023-07-19 06:41] LABS: DIFFERENTIAL COMMENT 1
[2023-07-19 06:45] LABS: CALCIUM 9.4 mg/dL (8.5-10.1); CARBON DIOXIDE 29 mmol/L (21-32); CHLORIDE 103 mmol/L (98-107); CREATININE 0.5 mg/dL (0.6-1.3); GLUCOSE 80 mg/dL (74-106); POTASSIUM 4.2 mmol/L (3.5-5.1); SODIUM SERUM 140 mmol/L (136-145); UREA NITROGEN, BLOOD 14 mg/dL (7-18)
[2023-07-19 08:20] VITALS: O2SAT 98
[2023-07-19] MEDS: POLYVINYL ALCOHOL OPHT DROPS 15 ML BOTTLE EACHEYE SCH ×3 (08:36→16:50)
[2023-07-19] MEDS: busPIRone 10 MG TABLET GT SCH ×3 (08:37→16:50)
[2023-07-19] MEDS: DOCUSATE SODIUM 100 MG/10 ML LIQUID UDC GT SCH (08:38)
[2023-07-19] MEDS: VALPROIC ACID 250 MG/5 ML LIQUID UDC GT SCH ×4 (08:39→20:52)
[2023-07-19] MEDS: ACIDOPHILUS/BULGARICUS CHEW TAB GT SCH ×2 (08:39→20:52)
[2023-07-19] MEDS: ESCITALOPRAM OXALATE 10 MG TABLET GT SCH (08:40)
[2023-07-19] MEDS: levETIRAcetam 500 MG/5 ML LIQUID UDC GT SCH ×2 (08:40→20:52)
[2023-07-19] MEDS: MIRALAX 17 GM POWD.PACK GT SCH (08:41)
[2023-07-19] MEDS: MAGNESIUM GLYCINATE GT SCH (08:42)
[2023-07-19] MEDS: POTASSIUM CHLORIDE 40 MEQ/30 ML LIQUID UDC GT SCH (08:44)
[2023-07-19 09:00] VITALS: TEMP 97
[2023-07-19] MEDS: HYDROGEN PEROXIDE 3% 118 ML BOTTLE TP SCH ×2 (09:00→19:20)
[2023-07-19] MEDS: REMEDY ESSENTIAL ZINC PASTE 113 GM TP SCH ×2 (09:53→20:55)
[2023-07-19 16:04] VITALS: O2SAT 98
[2023-07-19] MEDS: GABAPENTIN 300 MG CAPSULE GT SCH (16:52)
[2023-07-19 20:25] VITALS: TEMP 98.4; O2SAT 98
[2023-07-19] MEDS: CRANBERRY 500 MG GT SCH (20:52)
[2023-07-19] MEDS: NUTRISOURCE FIBER 4 GM PACKET GT SCH (20:52)
[2023-07-19] MEDS: OMEGA-3 FATTY ACIDS/FISH OIL CAPSULE GT SCH (20:52)
[2023-07-19] MEDS: PROTEIN SUPPLEMENT (PROSTAT) 30 ML LIQUID GT SCH (20:54)
[2023-07-19] MEDS: MELATONIN 3MG TABLET GT PRN (20:56)
[2023-07-19] MEDS: ACETAMINOPHEN 650 MG/20 ML UDC- SA PATIENTS-PAIN ONLY GT PRN (20:56)
[2023-07-19] MEDS: RIVAROXABAN 15 MG TABLET GT SCH (21:00)
[2023-07-20] MEDS: MULTIVIT, IRON, MIN NO. 8, FA TABLET GT SCH (05:27)
[2023-07-20] MEDS: OMEPRAZOLE 20 MG CAPSULE.DR GT SCH (05:27)
[2023-07-20] MEDS: JEVITY 1.2 1000 ML LIQUID GT PRN (05:27)
[2023-07-20] MEDS: BACLOFEN 10 MG TABLET GT SCH ×3 (05:27→18:09)
[2023-07-20 07:23] VITALS: TEMP 97.5
[2023-07-20 08:25] VITALS: O2SAT 98
[2023-07-20] MEDS: HYDROGEN PEROXIDE 3% 118 ML BOTTLE TP SCH ×2 (09:00→19:06)
[2023-07-20] MEDS: POLYVINYL ALCOHOL OPHT DROPS 15 ML BOTTLE EACHEYE SCH ×3 (09:24→16:38)
[2023-07-20] MEDS: busPIRone 10 MG TABLET GT SCH ×3 (09:25→16:38)
[2023-07-20] MEDS: DOCUSATE SODIUM 100 MG/10 ML LIQUID UDC GT SCH (09:25)
[2023-07-20] MEDS: VALPROIC ACID 250 MG/5 ML LIQUID UDC GT SCH ×4 (09:25→21:25)
[2023-07-20] MEDS: ACIDOPHILUS/BULGARICUS CHEW TAB GT SCH ×2 (09:26→21:25)
[2023-07-20] MEDS: ESCITALOPRAM OXALATE 10 MG TABLET GT SCH (09:26)
[2023-07-20] MEDS: levETIRAcetam 500 MG/5 ML LIQUID UDC GT SCH ×2 (09:26→21:25)
[2023-07-20] MEDS: MIRALAX 17 GM POWD.PACK GT SCH (09:26)
[2023-07-20] MEDS: POTASSIUM CHLORIDE 40 MEQ/30 ML LIQUID UDC GT SCH (09:27)
[2023-07-20] MEDS: MAGNESIUM GLYCINATE GT SCH (09:27)
[2023-07-20] MEDS: REMEDY ESSENTIAL ZINC PASTE 113 GM TP SCH ×2 (09:28→21:26)
[2023-07-20] MEDS: COAL TAR TOP SCH (09:28)
[2023-07-20] MEDS ORDERED: TUBERCULIN,PURIF.PROT.DERIV. 5 TU/0.1 ML TEST ID ONE (14:00)
[2023-07-20 15:24] VITALS: O2SAT 98
[2023-07-20] MEDS: GABAPENTIN 300 MG CAPSULE GT SCH (16:39)
[2023-07-20 19:46] VITALS: TEMP 98
[2023-07-20 20:45] VITALS: O2SAT 98
[2023-07-20] MEDS: CRANBERRY 500 MG GT SCH (21:25)
[2023-07-20] MEDS: OMEGA-3 FATTY ACIDS/FISH OIL CAPSULE GT SCH (21:25)
[2023-07-20] MEDS: NUTRISOURCE FIBER 4 GM PACKET GT SCH (21:25)
[2023-07-20] MEDS: PROTEIN SUPPLEMENT (PROSTAT) 30 ML LIQUID GT SCH (21:25)
[2023-07-20] MEDS: RIVAROXABAN 15 MG TABLET GT SCH (21:26)
[2023-07-20] MEDS: MELATONIN 3MG TABLET GT PRN (21:28)
[2023-07-21] MEDS: BACLOFEN 10 MG TABLET GT SCH ×5 (06:00→23:12)
[2023-07-21] MEDS: OMEPRAZOLE 20 MG CAPSULE.DR GT SCH (06:00)
[2023-07-21] MEDS: MULTIVIT, IRON, MIN NO. 8, FA TABLET GT SCH (06:00)
[2023-07-21 07:59] VITALS: TEMP 97.9
[2023-07-21] MEDS: busPIRone 10 MG TABLET GT SCH ×3 (08:16→16:33)
[2023-07-21] MEDS: VALPROIC ACID 250 MG/5 ML LIQUID UDC GT SCH ×4 (08:16→21:22)
[2023-07-21] MEDS: POLYVINYL ALCOHOL OPHT DROPS 15 ML BOTTLE EACHEYE SCH ×3 (08:16→16:32)
[2023-07-21] MEDS: ACIDOPHILUS/BULGARICUS CHEW TAB GT SCH ×2 (08:17→21:23)
[2023-07-21] MEDS: levETIRAcetam 500 MG/5 ML LIQUID UDC GT SCH ×2 (08:18→21:23)
[2023-07-21] MEDS: ESCITALOPRAM OXALATE 10 MG TABLET GT SCH (08:18)
[2023-07-21] MEDS: MAGNESIUM GLYCINATE GT SCH (08:18)
[2023-07-21] MEDS: POTASSIUM CHLORIDE 40 MEQ/30 ML LIQUID UDC GT SCH (08:18)
[2023-07-21] MEDS: REMEDY ESSENTIAL ZINC PASTE 113 GM TP SCH ×2 (08:18→21:25)
[2023-07-21] MEDS: MIRALAX 17 GM POWD.PACK GT SCH (09:00)
[2023-07-21] MEDS: DOCUSATE SODIUM 100 MG/10 ML LIQUID UDC GT SCH (09:00)
[2023-07-21] MEDS: HYDROGEN PEROXIDE 3% 118 ML BOTTLE TP SCH ×2 (09:00→20:22)
[2023-07-21] MEDS: JEVITY 1.2 1000 ML LIQUID GT PRN (10:01)
[2023-07-21 10:50] VITALS: O2SAT 99
[2023-07-21] MEDS: GABAPENTIN 300 MG CAPSULE GT SCH (16:33)
[2023-07-21 20:00] VITALS: TEMP 98.6
[2023-07-21] MEDS: RIVAROXABAN 15 MG TABLET GT SCH (21:00)
[2023-07-21] MEDS: OMEGA-3 FATTY ACIDS/FISH OIL CAPSULE GT SCH (21:23)
[2023-07-21] MEDS: NUTRISOURCE FIBER 4 GM PACKET GT SCH (21:23)
[2023-07-21] MEDS: CRANBERRY 500 MG GT SCH (21:23)
[2023-07-21] MEDS: PROTEIN SUPPLEMENT (PROSTAT) 30 ML LIQUID GT SCH (21:24)
[2023-07-21] MEDS: MELATONIN 3MG TABLET GT PRN (21:26)
[2023-07-21 22:16] VITALS: O2SAT 98
[2023-07-22] MEDS: OMEPRAZOLE 20 MG CAPSULE.DR GT SCH (05:37)
[2023-07-22] MEDS: BACLOFEN 10 MG TABLET GT SCH ×4 (05:37→23:01)
[2023-07-22] MEDS: MULTIVIT, IRON, MIN NO. 8, FA TABLET GT SCH (05:37)
[2023-07-22 08:11] VITALS: TEMP 97.6
[2023-07-22] MEDS: POLYVINYL ALCOHOL OPHT DROPS 15 ML BOTTLE EACHEYE SCH ×3 (08:48→16:43)
[2023-07-22] MEDS: busPIRone 10 MG TABLET GT SCH ×3 (08:49→16:43)
[2023-07-22] MEDS: ACIDOPHILUS/BULGARICUS CHEW TAB GT SCH ×2 (08:49→20:47)
[2023-07-22] MEDS: DOCUSATE SODIUM 100 MG/10 ML LIQUID UDC GT SCH (08:49)
[2023-07-22] MEDS: VALPROIC ACID 250 MG/5 ML LIQUID UDC GT SCH ×4 (08:50→20:47)
[2023-07-22] MEDS: levETIRAcetam 500 MG/5 ML LIQUID UDC GT SCH ×2 (08:51→20:47)
[2023-07-22] MEDS: ESCITALOPRAM OXALATE 10 MG TABLET GT SCH (08:52)
[2023-07-22] MEDS: MIRALAX 17 GM POWD.PACK GT SCH (08:52)
[2023-07-22] MEDS: MAGNESIUM GLYCINATE GT SCH (08:55)
[2023-07-22] MEDS: REMEDY ESSENTIAL ZINC PASTE 113 GM TP SCH ×2 (08:56→20:47)
[2023-07-22] MEDS: NEOMY/BACITRAC/POLYMI OINT 28.35 GM TUBE TOP SCH ×2 (08:56→20:47)
[2023-07-22] MEDS: POTASSIUM CHLORIDE 40 MEQ/30 ML LIQUID UDC GT SCH (08:56)
[2023-07-22] MEDS: HYDROGEN PEROXIDE 3% 118 ML BOTTLE TP SCH ×2 (09:00→21:58)
[2023-07-22 10:40] VITALS: O2SAT 99
[2023-07-22] MEDS: JEVITY 1.2 1000 ML LIQUID GT PRN (12:10)
[2023-07-22] MEDS: ACETAMINOPHEN 650 MG/20 ML UDC- SA PATIENTS-PAIN ONLY GT PRN ×2 (13:26→23:00)
[2023-07-22] MEDS: GABAPENTIN 300 MG CAPSULE GT SCH (16:44)
[2023-07-22 20:00] VITALS: TEMP 98.4
[2023-07-22] MEDS: CRANBERRY 500 MG GT SCH (20:47)
[2023-07-22] MEDS: NUTRISOURCE FIBER 4 GM PACKET GT SCH (20:47)
[2023-07-22] MEDS: MELATONIN 3MG TABLET GT PRN (20:47)
[2023-07-22] MEDS: PROTEIN SUPPLEMENT (PROSTAT) 30 ML LIQUID GT SCH (20:47)
[2023-07-22] MEDS: OMEGA-3 FATTY ACIDS/FISH OIL CAPSULE GT SCH (20:47)
[2023-07-22] MEDS: RIVAROXABAN 15 MG TABLET GT SCH (21:32)
[2023-07-22] MEDS: LORAZEPAM 0.5 MG TABLET PO PRN (22:02)
[2023-07-23 00:31] VITALS: O2SAT 98
[2023-07-23] MEDS: diphenhydrAMINE 25 MG/10 ML UDC GT PRN (05:07)
[2023-07-23] MEDS: BACLOFEN 10 MG TABLET GT SCH ×4 (05:07→23:39)
[2023-07-23] MEDS: MULTIVIT, IRON, MIN NO. 8, FA TABLET GT SCH (05:07)
[2023-07-23] MEDS: OMEPRAZOLE 20 MG CAPSULE.DR GT SCH (05:07)
[2023-07-23] MEDS: HYDROGEN PEROXIDE 3% 118 ML BOTTLE TP SCH ×2 (07:22→19:15)
[2023-07-23 07:42] VITALS: TEMP 97.6
[2023-07-23 09:15] VITALS: O2SAT 99
[2023-07-23] MEDS: DOCUSATE SODIUM 100 MG/10 ML LIQUID UDC GT SCH (09:43)
[2023-07-23] MEDS: POLYVINYL ALCOHOL OPHT DROPS 15 ML BOTTLE EACHEYE SCH ×3 (09:43→16:57)
[2023-07-23] MEDS: busPIRone 10 MG TABLET GT SCH ×3 (09:43→16:57)
[2023-07-23] MEDS: VALPROIC ACID 250 MG/5 ML LIQUID UDC GT SCH ×4 (09:44→21:03)
[2023-07-23] MEDS: levETIRAcetam 500 MG/5 ML LIQUID UDC GT SCH ×2 (09:46→21:03)
[2023-07-23] MEDS: ACIDOPHILUS/BULGARICUS CHEW TAB GT SCH ×2 (09:46→21:03)
[2023-07-23] MEDS: ESCITALOPRAM OXALATE 10 MG TABLET GT SCH (09:47)
[2023-07-23] MEDS: MIRALAX 17 GM POWD.PACK GT SCH (09:47)
[2023-07-23] MEDS: MAGNESIUM GLYCINATE GT SCH (09:48)
[2023-07-23] MEDS: POTASSIUM CHLORIDE 40 MEQ/30 ML LIQUID UDC GT SCH (09:48)
[2023-07-23] MEDS: REMEDY ESSENTIAL ZINC PASTE 113 GM TP SCH ×2 (09:50→21:04)
[2023-07-23] MEDS: NEOMY/BACITRA/POLYMYXIN B OINT UD PACKET TP SCH ×2 (09:50→21:04)
[2023-07-23] MEDS: NEOMY/BACITRAC/POLYMI OINT 28.35 GM TUBE TOP SCH ×2 (09:50→21:03)
[2023-07-23] MEDS: COAL TAR TOP SCH (09:51)
[2023-07-23] MEDS: JEVITY 1.2 1000 ML LIQUID GT PRN (14:35)
[2023-07-23] MEDS: GABAPENTIN 300 MG CAPSULE GT SCH (16:59)
[2023-07-23 20:00] VITALS: TEMP 97.8
[2023-07-23 20:25] VITALS: O2SAT 98
[2023-07-23] MEDS: NUTRISOURCE FIBER 4 GM PACKET GT SCH (21:03)
[2023-07-23] MEDS: OMEGA-3 FATTY ACIDS/FISH OIL CAPSULE GT SCH (21:03)
[2023-07-23] MEDS: CRANBERRY 500 MG GT SCH (21:03)
[2023-07-23] MEDS: PROTEIN SUPPLEMENT (PROSTAT) 30 ML LIQUID GT SCH (21:03)
[2023-07-23] MEDS: MELATONIN 3MG TABLET GT PRN (21:04)
[2023-07-23] MEDS: RIVAROXABAN 15 MG TABLET GT SCH (21:33)
[2023-07-24] MEDS: LORAZEPAM 0.5 MG TABLET PO PRN ×2 (00:02→21:30)
[2023-07-24] MEDS: OMEPRAZOLE 20 MG CAPSULE.DR GT SCH (05:37)
[2023-07-24] MEDS: MULTIVIT, IRON, MIN NO. 8, FA TABLET GT SCH (05:37)
[2023-07-24] MEDS: BACLOFEN 10 MG TABLET GT SCH ×4 (05:37→23:02)
[2023-07-24 07:19] VITALS: O2SAT 98
[2023-07-24 08:30] VITALS: TEMP 97.5
[2023-07-24] MEDS: DOCUSATE SODIUM 100 MG/10 ML LIQUID UDC GT SCH (09:31)
[2023-07-24] MEDS: busPIRone 10 MG TABLET GT SCH ×3 (09:31→17:26)
[2023-07-24] MEDS: POLYVINYL ALCOHOL OPHT DROPS 15 ML BOTTLE EACHEYE SCH ×3 (09:31→17:26)
[2023-07-24] MEDS: VALPROIC ACID 250 MG/5 ML LIQUID UDC GT SCH ×4 (09:33→21:00)
[2023-07-24] MEDS: ACIDOPHILUS/BULGARICUS CHEW TAB GT SCH ×2 (09:33→21:00)
[2023-07-24] MEDS: levETIRAcetam 500 MG/5 ML LIQUID UDC GT SCH ×2 (09:40→21:00)
[2023-07-24] MEDS: ESCITALOPRAM OXALATE 10 MG TABLET GT SCH (09:40)
[2023-07-24] MEDS: MIRALAX 17 GM POWD.PACK GT SCH (09:42)
[2023-07-24] MEDS: MAGNESIUM GLYCINATE GT SCH (09:43)
[2023-07-24] MEDS: HYDROGEN PEROXIDE 3% 118 ML BOTTLE TP SCH ×2 (09:43→19:12)
[2023-07-24] MEDS: POTASSIUM CHLORIDE 40 MEQ/30 ML LIQUID UDC GT SCH (09:45)
[2023-07-24] MEDS: NEOMY/BACITRAC/POLYMI OINT 28.35 GM TUBE TOP SCH ×2 (09:46→21:00)
[2023-07-24] MEDS: NEOMY/BACITRA/POLYMYXIN B OINT UD PACKET TP SCH ×2 (09:46→21:00)
[2023-07-24] MEDS: REMEDY ESSENTIAL ZINC PASTE 113 GM TP SCH ×2 (09:46→21:00)
[2023-07-24] MEDS: JEVITY 1.2 1000 ML LIQUID GT PRN (15:25)
[2023-07-24 15:36] VITALS: O2SAT 98
[2023-07-24] MEDS: GABAPENTIN 300 MG CAPSULE GT SCH (17:26)
[2023-07-24 20:00] VITALS: TEMP 97.6
[2023-07-24 20:40] VITALS: O2SAT 98
[2023-07-24] MEDS: MELATONIN 3MG TABLET GT PRN (20:52)
[2023-07-24] MEDS: NUTRISOURCE FIBER 4 GM PACKET GT SCH (21:00)
[2023-07-24] MEDS: PROTEIN SUPPLEMENT (PROSTAT) 30 ML LIQUID GT SCH (21:00)
[2023-07-24] MEDS: CRANBERRY 500 MG GT SCH (21:00)
[2023-07-24] MEDS: OMEGA-3 FATTY ACIDS/FISH OIL CAPSULE GT SCH (21:00)
[2023-07-24] MEDS: RIVAROXABAN 15 MG TABLET GT SCH (21:37)
[2023-07-25] MEDS: BACLOFEN 10 MG TABLET GT SCH ×4 (05:16→23:04)
[2023-07-25] MEDS: OMEPRAZOLE 20 MG CAPSULE.DR GT SCH (05:16)
[2023-07-25] MEDS: MULTIVIT, IRON, MIN NO. 8, FA TABLET GT SCH (05:16)
[2023-07-25 07:34] VITALS: O2SAT 98
[2023-07-25] MEDS: HYDROGEN PEROXIDE 3% 118 ML BOTTLE TP SCH ×2 (07:34→19:11)
[2023-07-25 07:50] VITALS: TEMP 98
[2023-07-25] MEDS: ESCITALOPRAM OXALATE 10 MG TABLET GT SCH (09:10)
[2023-07-25] MEDS: POLYVINYL ALCOHOL OPHT DROPS 15 ML BOTTLE EACHEYE SCH ×3 (09:10→16:58)
[2023-07-25] MEDS: busPIRone 10 MG TABLET GT SCH ×3 (09:10→16:58)
[2023-07-25] MEDS: VALPROIC ACID 250 MG/5 ML LIQUID UDC GT SCH ×4 (09:11→21:30)
[2023-07-25] MEDS: DOCUSATE SODIUM 100 MG/10 ML LIQUID UDC GT SCH (09:11)
[2023-07-25] MEDS: ACIDOPHILUS/BULGARICUS CHEW TAB GT SCH ×2 (09:12→21:30)
[2023-07-25] MEDS: levETIRAcetam 500 MG/5 ML LIQUID UDC GT SCH ×2 (09:12→21:30)
[2023-07-25] MEDS: MIRALAX 17 GM POWD.PACK GT SCH (09:13)
[2023-07-25] MEDS: POTASSIUM CHLORIDE 40 MEQ/30 ML LIQUID UDC GT SCH (09:15)
[2023-07-25] MEDS: MAGNESIUM GLYCINATE GT SCH (09:15)
[2023-07-25] MEDS: REMEDY ESSENTIAL ZINC PASTE 113 GM TP SCH ×2 (09:16→21:31)
[2023-07-25] MEDS: NEOMY/BACITRAC/POLYMI OINT 28.35 GM TUBE TOP SCH ×2 (09:16→21:31)
[2023-07-25] MEDS: NEOMY/BACITRA/POLYMYXIN B OINT UD PACKET TP SCH ×2 (09:16→21:31)
[2023-07-25] MEDS: GABAPENTIN 300 MG CAPSULE GT SCH (17:01)
[2023-07-25] MEDS: JEVITY 1.2 1000 ML LIQUID GT PRN (17:15)
[2023-07-25 20:00] VITALS: TEMP 97.6
[2023-07-25 20:30] VITALS: O2SAT 98
[2023-07-25] MEDS: OMEGA-3 FATTY ACIDS/FISH OIL CAPSULE GT SCH (21:30)
[2023-07-25] MEDS: LORAZEPAM 0.5 MG TABLET PO PRN (21:30)
[2023-07-25] MEDS: NUTRISOURCE FIBER 4 GM PACKET GT SCH (21:30)
[2023-07-25] MEDS: RIVAROXABAN 15 MG TABLET GT SCH (21:30)
[2023-07-25] MEDS: CRANBERRY 500 MG GT SCH (21:30)
[2023-07-25] MEDS: PROTEIN SUPPLEMENT (PROSTAT) 30 ML LIQUID GT SCH (21:30)
[2023-07-25] MEDS: MELATONIN 3MG TABLET GT PRN (21:32)
[2023-07-26] MEDS: OMEPRAZOLE 20 MG CAPSULE.DR GT SCH (05:12)
[2023-07-26] MEDS: BACLOFEN 10 MG TABLET GT SCH ×4 (05:12→23:14)
[2023-07-26] MEDS: MULTIVIT, IRON, MIN NO. 8, FA TABLET GT SCH (05:12)
[2023-07-26 07:46] VITALS: TEMP 97.3
[2023-07-26] MEDS: HYDROGEN PEROXIDE 3% 118 ML BOTTLE TP SCH ×2 (08:07→21:21)
[2023-07-26] MEDS: POLYVINYL ALCOHOL OPHT DROPS 15 ML BOTTLE EACHEYE SCH ×3 (08:50→17:33)
[2023-07-26] MEDS: DOCUSATE SODIUM 100 MG/10 ML LIQUID UDC GT SCH (08:50)
[2023-07-26] MEDS: busPIRone 10 MG TABLET GT SCH ×3 (08:50→17:33)
[2023-07-26] MEDS: VALPROIC ACID 250 MG/5 ML LIQUID UDC GT SCH ×4 (08:51→21:35)
[2023-07-26] MEDS: ACIDOPHILUS/BULGARICUS CHEW TAB GT SCH ×2 (08:52→21:35)
[2023-07-26] MEDS: levETIRAcetam 500 MG/5 ML LIQUID UDC GT SCH ×2 (08:52→21:35)
[2023-07-26] MEDS: ESCITALOPRAM OXALATE 10 MG TABLET GT SCH (08:53)
[2023-07-26] MEDS: MAGNESIUM GLYCINATE GT SCH (08:54)
[2023-07-26] MEDS: MIRALAX 17 GM POWD.PACK GT SCH (08:54)
[2023-07-26] MEDS: REMEDY ESSENTIAL ZINC PASTE 113 GM TP SCH ×2 (08:55→21:35)
[2023-07-26] MEDS: POTASSIUM CHLORIDE 40 MEQ/30 ML LIQUID UDC GT SCH (08:55)
[2023-07-26] MEDS: NEOMY/BACITRA/POLYMYXIN B OINT UD PACKET TP SCH ×2 (08:55→21:36)
[2023-07-26] MEDS: NEOMY/BACITRAC/POLYMI OINT 28.35 GM TUBE TOP SCH ×2 (08:55→21:35)
[2023-07-26 12:54] VITALS: O2SAT 98
[2023-07-26] MEDS: GABAPENTIN 300 MG CAPSULE GT SCH (17:34)
[2023-07-26] MEDS: JEVITY 1.2 1000 ML LIQUID GT PRN (18:07)
[2023-07-26 19:48] VITALS: TEMP 97.5
[2023-07-26] MEDS: MELATONIN 3MG TABLET GT PRN (20:30)
[2023-07-26] MEDS: PROTEIN SUPPLEMENT (PROSTAT) 30 ML LIQUID GT SCH (21:35)
[2023-07-26] MEDS: NUTRISOURCE FIBER 4 GM PACKET GT SCH (21:35)
[2023-07-26] MEDS: CRANBERRY 500 MG GT SCH (21:35)
[2023-07-26] MEDS: RIVAROXABAN 15 MG TABLET GT SCH (21:35)
[2023-07-26] MEDS: OMEGA-3 FATTY ACIDS/FISH OIL CAPSULE GT SCH (21:35)
[2023-07-26] MEDS: LORAZEPAM 0.5 MG TABLET PO PRN (21:36)
[2023-07-26 23:42] VITALS: O2SAT 99
[2023-07-27] MEDS: MULTIVIT, IRON, MIN NO. 8, FA TABLET GT SCH (05:32)
[2023-07-27] MEDS: OMEPRAZOLE 20 MG CAPSULE.DR GT SCH (05:32)
[2023-07-27] MEDS: BACLOFEN 10 MG TABLET GT SCH ×3 (05:32→17:03)
[2023-07-27 07:35] VITALS: O2SAT 98
[2023-07-27 07:37] VITALS: TEMP 97.1
[2023-07-27] MEDS: busPIRone 10 MG TABLET GT SCH ×3 (08:22→16:41)
[2023-07-27] MEDS: POLYVINYL ALCOHOL OPHT DROPS 15 ML BOTTLE EACHEYE SCH ×3 (08:22→16:41)
[2023-07-27] MEDS: levETIRAcetam 500 MG/5 ML LIQUID UDC GT SCH ×2 (08:23→21:00)
[2023-07-27] MEDS: ESCITALOPRAM OXALATE 10 MG TABLET GT SCH (08:23)
[2023-07-27] MEDS: VALPROIC ACID 250 MG/5 ML LIQUID UDC GT SCH ×4 (08:24→21:00)
[2023-07-27] MEDS: ACIDOPHILUS/BULGARICUS CHEW TAB GT SCH ×2 (08:24→21:00)
[2023-07-27] MEDS: DOCUSATE SODIUM 100 MG/10 ML LIQUID UDC GT SCH (08:26)
[2023-07-27] MEDS: MIRALAX 17 GM POWD.PACK GT SCH (08:26)
[2023-07-27] MEDS: MAGNESIUM GLYCINATE GT SCH (08:28)
[2023-07-27] MEDS: POTASSIUM CHLORIDE 40 MEQ/30 ML LIQUID UDC GT SCH (08:29)
[2023-07-27] MEDS: NEOMY/BACITRAC/POLYMI OINT 28.35 GM TUBE TOP SCH ×2 (08:30→21:00)
[2023-07-27] MEDS: NEOMY/BACITRA/POLYMYXIN B OINT UD PACKET TP SCH ×2 (08:30→21:00)
[2023-07-27] MEDS: REMEDY ESSENTIAL ZINC PASTE 113 GM TP SCH ×2 (08:30→21:00)
[2023-07-27] MEDS: COAL TAR TOP SCH (08:30)
[2023-07-27] MEDS: HYDROGEN PEROXIDE 3% 118 ML BOTTLE TP SCH (09:00)
[2023-07-27] MEDS: GABAPENTIN 300 MG CAPSULE GT SCH (17:03)
[2023-07-27 20:00] VITALS: TEMP 97.8
[2023-07-27] MEDS: OMEGA-3 FATTY ACIDS/FISH OIL CAPSULE GT SCH (21:00)
[2023-07-27] MEDS: NUTRISOURCE FIBER 4 GM PACKET GT SCH (21:00)
[2023-07-27] MEDS: CRANBERRY 500 MG GT SCH (21:00)
[2023-07-27] MEDS: RIVAROXABAN 15 MG TABLET GT SCH (21:00)
[2023-07-27] MEDS: PROTEIN SUPPLEMENT (PROSTAT) 30 ML LIQUID GT SCH (21:00)
[2023-07-27 21:20] VITALS: O2SAT 99
[2023-07-27] MEDS: MELATONIN 3MG TABLET GT PRN (22:11)
[2023-07-28] MEDS: MULTIVIT, IRON, MIN NO. 8, FA TABLET GT SCH (06:21)
[2023-07-28] MEDS: BACLOFEN 10 MG TABLET GT SCH ×5 (06:21→23:30)
[2023-07-28] MEDS: OMEPRAZOLE 20 MG CAPSULE.DR GT SCH (06:21)
[2023-07-28] MEDS: POLYVINYL ALCOHOL OPHT DROPS 15 ML BOTTLE EACHEYE SCH ×3 (08:28→17:14)
[2023-07-28] MEDS: busPIRone 10 MG TABLET GT SCH ×3 (08:29→17:15)
[2023-07-28] MEDS: ESCITALOPRAM OXALATE 10 MG TABLET GT SCH (08:29)
[2023-07-28] MEDS: VALPROIC ACID 250 MG/5 ML LIQUID UDC GT SCH ×4 (08:32→20:06)
[2023-07-28] MEDS: ACIDOPHILUS/BULGARICUS CHEW TAB GT SCH ×2 (08:33→20:07)
[2023-07-28] MEDS: levETIRAcetam 500 MG/5 ML LIQUID UDC GT SCH ×2 (08:36→20:08)
[2023-07-28] MEDS: DOCUSATE SODIUM 100 MG/10 ML LIQUID UDC GT SCH (08:42)
[2023-07-28] MEDS: MIRALAX 17 GM POWD.PACK GT SCH (08:44)
[2023-07-28] MEDS: NEOMY/BACITRA/POLYMYXIN B OINT UD PACKET TP SCH ×2 (08:45→21:00)
[2023-07-28] MEDS: MAGNESIUM GLYCINATE GT SCH (08:45)
[2023-07-28] MEDS: NEOMY/BACITRAC/POLYMI OINT 28.35 GM TUBE TOP SCH ×2 (08:45→21:00)
[2023-07-28] MEDS: REMEDY ESSENTIAL ZINC PASTE 113 GM TP SCH ×2 (08:45→21:00)
[2023-07-28] MEDS: POTASSIUM CHLORIDE 40 MEQ/30 ML LIQUID UDC GT SCH (08:48)
[2023-07-28] MEDS: HYDROGEN PEROXIDE 3% 118 ML BOTTLE TP SCH ×2 (09:02→19:12)
[2023-07-28 13:22] VITALS: O2SAT 98
[2023-07-28] MEDS: GABAPENTIN 300 MG CAPSULE GT SCH (17:15)
[2023-07-28] MEDS: OMEGA-3 FATTY ACIDS/FISH OIL CAPSULE GT SCH (20:07)
[2023-07-28] MEDS: PROTEIN SUPPLEMENT (PROSTAT) 30 ML LIQUID GT SCH (20:09)
[2023-07-28] MEDS: CRANBERRY 500 MG GT SCH (20:09)
[2023-07-28] MEDS: NUTRISOURCE FIBER 4 GM PACKET GT SCH (20:09)
[2023-07-28 20:12] VITALS: TEMP 97.6
[2023-07-28 20:50] VITALS: O2SAT 99
[2023-07-28] MEDS: RIVAROXABAN 15 MG TABLET GT SCH (21:00)
[2023-07-29] MEDS: BACLOFEN 10 MG TABLET GT SCH ×3 (05:38→17:05)
[2023-07-29] MEDS: MULTIVIT, IRON, MIN NO. 8, FA TABLET GT SCH (05:38)
[2023-07-29] MEDS: OMEPRAZOLE 20 MG CAPSULE.DR GT SCH (05:38)
[2023-07-29 08:08] VITALS: O2SAT 98
[2023-07-29] MEDS: HYDROGEN PEROXIDE 3% 118 ML BOTTLE TP SCH ×2 (08:10→19:11)
[2023-07-29] MEDS: busPIRone 10 MG TABLET GT SCH ×3 (09:01→16:42)
[2023-07-29] MEDS: POLYVINYL ALCOHOL OPHT DROPS 15 ML BOTTLE EACHEYE SCH ×3 (09:01→16:42)
[2023-07-29] MEDS: DOCUSATE SODIUM 100 MG/10 ML LIQUID UDC GT SCH (09:01)
[2023-07-29] MEDS: levETIRAcetam 500 MG/5 ML LIQUID UDC GT SCH ×2 (09:02→21:09)
[2023-07-29] MEDS: ACIDOPHILUS/BULGARICUS CHEW TAB GT SCH ×2 (09:02→21:08)
[2023-07-29] MEDS: VALPROIC ACID 250 MG/5 ML LIQUID UDC GT SCH ×4 (09:02→21:07)
[2023-07-29] MEDS: MAGNESIUM GLYCINATE GT SCH (09:03)
[2023-07-29] MEDS: POTASSIUM CHLORIDE 40 MEQ/30 ML LIQUID UDC GT SCH (09:03)
[2023-07-29] MEDS: ESCITALOPRAM OXALATE 10 MG TABLET GT SCH (09:03)
[2023-07-29] MEDS: MIRALAX 17 GM POWD.PACK GT SCH (09:03)
[2023-07-29] MEDS: NEOMY/BACITRAC/POLYMI OINT 28.35 GM TUBE TOP SCH ×2 (09:04→21:09)
[2023-07-29] MEDS: NEOMY/BACITRA/POLYMYXIN B OINT UD PACKET TP SCH ×2 (09:04→21:11)
[2023-07-29] MEDS: REMEDY ESSENTIAL ZINC PASTE 113 GM TP SCH ×2 (09:04→21:11)
[2023-07-29 10:00] VITALS: TEMP 98.1
[2023-07-29] MEDS: GABAPENTIN 300 MG CAPSULE GT SCH (16:44)
[2023-07-29 20:00] VITALS: TEMP 98.6
[2023-07-29 21:00] VITALS: O2SAT 99
[2023-07-29] MEDS: OMEGA-3 FATTY ACIDS/FISH OIL CAPSULE GT SCH (21:07)
[2023-07-29] MEDS: CRANBERRY 500 MG GT SCH (21:09)
[2023-07-29] MEDS: NUTRISOURCE FIBER 4 GM PACKET GT SCH (21:09)
[2023-07-29] MEDS: PROTEIN SUPPLEMENT (PROSTAT) 30 ML LIQUID GT SCH (21:13)
[2023-07-29] MEDS: MELATONIN 3MG TABLET GT PRN (21:14)
[2023-07-29] MEDS: RIVAROXABAN 15 MG TABLET GT SCH (21:49)
[2023-07-30] MEDS: BACLOFEN 10 MG TABLET GT SCH ×4 (00:19→17:22)
[2023-07-30] MEDS: MULTIVIT, IRON, MIN NO. 8, FA TABLET GT SCH (05:56)
[2023-07-30] MEDS: OMEPRAZOLE 20 MG CAPSULE.DR GT SCH (05:56)
[2023-07-30 08:00] VITALS: TEMP 97.6
[2023-07-30] MEDS: VALPROIC ACID 250 MG/5 ML LIQUID UDC GT SCH ×4 (08:07→20:25)
[2023-07-30] MEDS: busPIRone 10 MG TABLET GT SCH ×3 (08:07→16:51)
[2023-07-30] MEDS: POLYVINYL ALCOHOL OPHT DROPS 15 ML BOTTLE EACHEYE SCH ×3 (08:07→16:51)
[2023-07-30] MEDS: DOCUSATE SODIUM 100 MG/10 ML LIQUID UDC GT SCH (08:07)
[2023-07-30] MEDS: ACIDOPHILUS/BULGARICUS CHEW TAB GT SCH ×2 (08:07→20:26)
[2023-07-30] MEDS: levETIRAcetam 500 MG/5 ML LIQUID UDC GT SCH ×2 (08:08→20:26)
[2023-07-30] MEDS: POTASSIUM CHLORIDE 40 MEQ/30 ML LIQUID UDC GT SCH (08:08)
[2023-07-30] MEDS: ESCITALOPRAM OXALATE 10 MG TABLET GT SCH (08:08)
[2023-07-30] MEDS: MIRALAX 17 GM POWD.PACK GT SCH (08:08)
[2023-07-30] MEDS: COAL TAR TOP SCH (08:09)
[2023-07-30] MEDS: NEOMY/BACITRAC/POLYMI OINT 28.35 GM TUBE TOP SCH ×2 (08:09→20:32)
[2023-07-30] MEDS: REMEDY ESSENTIAL ZINC PASTE 113 GM TP SCH ×2 (08:09→20:32)
[2023-07-30] MEDS: NEOMY/BACITRA/POLYMYXIN B OINT UD PACKET TP SCH ×2 (08:09→20:33)
[2023-07-30] MEDS: MAGNESIUM GLYCINATE GT SCH (08:15)
[2023-07-30] MEDS: HYDROGEN PEROXIDE 3% 118 ML BOTTLE TP SCH ×2 (09:47→20:21)
[2023-07-30 10:40] VITALS: O2SAT 98
[2023-07-30] MEDS: GABAPENTIN 300 MG CAPSULE GT SCH (16:51)
[2023-07-30 20:00] VITALS: TEMP 97.6
[2023-07-30] MEDS: CRANBERRY 500 MG GT SCH (20:23)
[2023-07-30] MEDS: MELATONIN 3MG TABLET GT PRN (20:23)
[2023-07-30] MEDS: OMEGA-3 FATTY ACIDS/FISH OIL CAPSULE GT SCH (20:25)
[2023-07-30] MEDS: NUTRISOURCE FIBER 4 GM PACKET GT SCH (20:27)
[2023-07-30] MEDS: PROTEIN SUPPLEMENT (PROSTAT) 30 ML LIQUID GT SCH (20:29)
[2023-07-30] MEDS: RIVAROXABAN 15 MG TABLET GT SCH (20:31)
[2023-07-30 20:40] VITALS: O2SAT 99
[2023-07-31] MEDS: BACLOFEN 10 MG TABLET GT SCH ×4 (00:15→18:48)
[2023-07-31] MEDS: diphenhydrAMINE 25 MG/10 ML UDC GT PRN (03:57)
[2023-07-31] MEDS: JEVITY 1.2 1000 ML LIQUID GT PRN (03:57)
[2023-07-31] MEDS: MULTIVIT, IRON, MIN NO. 8, FA TABLET GT SCH (06:32)
[2023-07-31] MEDS: OMEPRAZOLE 20 MG CAPSULE.DR GT SCH (06:32)
[2023-07-31] MEDS: HYDROGEN PEROXIDE 3% 118 ML BOTTLE TP SCH ×2 (07:30→21:45)
[2023-07-31 08:24] VITALS: O2SAT 98
[2023-07-31 08:40] VITALS: O2SAT 99
[2023-07-31 09:16] VITALS: TEMP 98.5
[2023-07-31] MEDS: DOCUSATE SODIUM 100 MG/10 ML LIQUID UDC GT SCH (09:30)
[2023-07-31] MEDS: VALPROIC ACID 250 MG/5 ML LIQUID UDC GT SCH ×4 (09:30→21:03)
[2023-07-31] MEDS: ACIDOPHILUS/BULGARICUS CHEW TAB GT SCH ×2 (09:30→21:03)
[2023-07-31] MEDS: busPIRone 10 MG TABLET GT SCH ×3 (09:30→17:12)
[2023-07-31] MEDS: POLYVINYL ALCOHOL OPHT DROPS 15 ML BOTTLE EACHEYE SCH ×3 (09:30→17:12)
[2023-07-31] MEDS: ESCITALOPRAM OXALATE 10 MG TABLET GT SCH (09:31)
[2023-07-31] MEDS: levETIRAcetam 500 MG/5 ML LIQUID UDC GT SCH ×2 (09:31→21:04)
[2023-07-31] MEDS: MIRALAX 17 GM POWD.PACK GT SCH (09:31)
[2023-07-31] MEDS: MAGNESIUM GLYCINATE GT SCH (09:32)
[2023-07-31] MEDS: POTASSIUM CHLORIDE 40 MEQ/30 ML LIQUID UDC GT SCH (09:32)
[2023-07-31] MEDS: REMEDY ESSENTIAL ZINC PASTE 113 GM TP SCH ×2 (09:33→21:13)
[2023-07-31] MEDS: NEOMY/BACITRAC/POLYMI OINT 28.35 GM TUBE TOP SCH ×2 (09:33→21:13)
[2023-07-31] MEDS: NEOMY/BACITRA/POLYMYXIN B OINT UD PACKET TP SCH ×2 (09:33→21:13)
[2023-07-31] MEDS: GABAPENTIN 300 MG CAPSULE GT SCH (17:12)
[2023-07-31 20:00] VITALS: TEMP 97.8
[2023-07-31 20:45] VITALS: O2SAT 99
[2023-07-31] MEDS: OMEGA-3 FATTY ACIDS/FISH OIL CAPSULE GT SCH (21:03)
[2023-07-31] MEDS: NUTRISOURCE FIBER 4 GM PACKET GT SCH (21:05)
[2023-07-31] MEDS: CRANBERRY 500 MG GT SCH (21:05)
[2023-07-31] MEDS: PROTEIN SUPPLEMENT (PROSTAT) 30 ML LIQUID GT SCH (21:06)
[2023-07-31] MEDS: MELATONIN 3MG TABLET GT PRN (21:11)
[2023-07-31] MEDS: RIVAROXABAN 15 MG TABLET GT SCH (21:11)
[2023-07-31] MEDS: LORAZEPAM 0.5 MG TABLET PO PRN (22:14)
[2023-08-01] MEDS: BACLOFEN 10 MG TABLET GT SCH ×6 (00:33→23:16)
[2023-08-01] MEDS: JEVITY 1.2 1000 ML LIQUID GT PRN (04:37)
[2023-08-01] MEDS: OMEPRAZOLE 20 MG CAPSULE.DR GT SCH (05:54)
[2023-08-01] MEDS: MULTIVIT, IRON, MIN NO. 8, FA TABLET GT SCH (05:54)
[2023-08-01 08:03] VITALS: TEMP 97.4
[2023-08-01] MEDS: NEOMY/BACITRA/POLYMYXIN B OINT UD PACKET TP SCH ×2 (08:25→21:11)
[2023-08-01] MEDS: MIRALAX 17 GM POWD.PACK GT SCH (08:25)
[2023-08-01] MEDS: POTASSIUM CHLORIDE 40 MEQ/30 ML LIQUID UDC GT SCH (08:25)
[2023-08-01] MEDS: levETIRAcetam 500 MG/5 ML LIQUID UDC GT SCH ×2 (08:25→21:11)
[2023-08-01] MEDS: NEOMY/BACITRAC/POLYMI OINT 28.35 GM TUBE TOP SCH ×2 (08:25→21:11)
[2023-08-01] MEDS: DOCUSATE SODIUM 100 MG/10 ML LIQUID UDC GT SCH (08:25)
[2023-08-01] MEDS: MAGNESIUM GLYCINATE GT SCH (08:25)
[2023-08-01] MEDS: ACIDOPHILUS/BULGARICUS CHEW TAB GT SCH ×2 (08:25→21:11)
[2023-08-01] MEDS: REMEDY ESSENTIAL ZINC PASTE 113 GM TP SCH ×2 (08:25→21:11)
[2023-08-01] MEDS: ESCITALOPRAM OXALATE 10 MG TABLET GT SCH (08:25)
[2023-08-01] MEDS: busPIRone 10 MG TABLET GT SCH ×3 (08:25→17:12)
[2023-08-01] MEDS: POLYVINYL ALCOHOL OPHT DROPS 15 ML BOTTLE EACHEYE SCH ×3 (08:25→17:12)
[2023-08-01] MEDS: VALPROIC ACID 250 MG/5 ML LIQUID UDC GT SCH ×4 (08:25→21:11)
[2023-08-01] MEDS: HYDROGEN PEROXIDE 3% 118 ML BOTTLE TP SCH ×2 (09:00→19:15)
[2023-08-01 11:17] VITALS: O2SAT 98
[2023-08-01] MEDS: GABAPENTIN 300 MG CAPSULE GT SCH (17:14)
[2023-08-01 20:00] VITALS: TEMP 98.5
[2023-08-01] MEDS: RIVAROXABAN 15 MG TABLET GT SCH (21:00)
[2023-08-01 21:05] VITALS: O2SAT 99
[2023-08-01] MEDS: CRANBERRY 500 MG GT SCH (21:11)
[2023-08-01] MEDS: PROTEIN SUPPLEMENT (PROSTAT) 30 ML LIQUID GT SCH (21:11)
[2023-08-01] MEDS: OMEGA-3 FATTY ACIDS/FISH OIL CAPSULE GT SCH (21:11)
[2023-08-01] MEDS: NUTRISOURCE FIBER 4 GM PACKET GT SCH (21:11)
[2023-08-01] MEDS: MELATONIN 3MG TABLET GT PRN (21:12)
[2023-08-01] MEDS: LORAZEPAM 0.5 MG TABLET PO PRN (22:30)
[2023-08-02] MEDS: JEVITY 1.2 1000 ML LIQUID GT PRN (03:58)
[2023-08-02] MEDS: MULTIVIT, IRON, MIN NO. 8, FA TABLET GT SCH (05:25)
[2023-08-02] MEDS: OMEPRAZOLE 20 MG CAPSULE.DR GT SCH (05:25)
[2023-08-02] MEDS: BACLOFEN 10 MG TABLET GT SCH ×4 (05:25→23:07)
[2023-08-02] MEDS: HYDROGEN PEROXIDE 3% 118 ML BOTTLE TP SCH ×2 (07:12→20:59)
[2023-08-02] MEDS: POLYVINYL ALCOHOL OPHT DROPS 15 ML BOTTLE EACHEYE SCH ×3 (08:29→16:42)
[2023-08-02] MEDS: busPIRone 10 MG TABLET GT SCH ×3 (08:29→16:42)
[2023-08-02] MEDS: ESCITALOPRAM OXALATE 10 MG TABLET GT SCH (08:29)
[2023-08-02 08:30] VITALS: TEMP 97.8
[2023-08-02] MEDS: levETIRAcetam 500 MG/5 ML LIQUID UDC GT SCH ×2 (08:30→21:20)
[2023-08-02] MEDS: MIRALAX 17 GM POWD.PACK GT SCH (08:33)
[2023-08-02] MEDS: DOCUSATE SODIUM 100 MG/10 ML LIQUID UDC GT SCH (08:33)
[2023-08-02] MEDS: ACIDOPHILUS/BULGARICUS CHEW TAB GT SCH ×2 (08:33→21:20)
[2023-08-02] MEDS: VALPROIC ACID 250 MG/5 ML LIQUID UDC GT SCH ×4 (08:33→21:20)
[2023-08-02] MEDS: POTASSIUM CHLORIDE 40 MEQ/30 ML LIQUID UDC GT SCH (08:36)
[2023-08-02] MEDS: MAGNESIUM GLYCINATE GT SCH (08:36)
[2023-08-02] MEDS: REMEDY ESSENTIAL ZINC PASTE 113 GM TP SCH ×2 (08:36→21:20)
[2023-08-02] MEDS: NEOMY/BACITRA/POLYMYXIN B OINT UD PACKET TP SCH ×2 (08:36→21:20)
[2023-08-02] MEDS: NEOMY/BACITRAC/POLYMI OINT 28.35 GM TUBE TOP SCH ×2 (08:36→21:20)
[2023-08-02 09:45] VITALS: O2SAT 99
[2023-08-02] MEDS: GABAPENTIN 300 MG CAPSULE GT SCH (16:42)
[2023-08-02 20:00] VITALS: TEMP 97.9
[2023-08-02 20:35] VITALS: O2SAT 99
[2023-08-02] MEDS: RIVAROXABAN 15 MG TABLET GT SCH (21:00)
[2023-08-02] MEDS: MELATONIN 3MG TABLET GT PRN (21:20)
[2023-08-02] MEDS: OMEGA-3 FATTY ACIDS/FISH OIL CAPSULE GT SCH (21:20)
[2023-08-02] MEDS: CRANBERRY 500 MG GT SCH (21:20)
[2023-08-02] MEDS: NUTRISOURCE FIBER 4 GM PACKET GT SCH (21:20)
[2023-08-02] MEDS: PROTEIN SUPPLEMENT (PROSTAT) 30 ML LIQUID GT SCH (21:20)
[2023-08-02] MEDS: LORAZEPAM 0.5 MG TABLET PO PRN (22:30)
[2023-08-03] MEDS: JEVITY 1.2 1000 ML LIQUID GT PRN (04:20)
[2023-08-03] MEDS: BACLOFEN 10 MG TABLET GT SCH ×3 (05:46→18:00)
[2023-08-03] MEDS: OMEPRAZOLE 20 MG CAPSULE.DR GT SCH (05:46)
[2023-08-03] MEDS: MULTIVIT, IRON, MIN NO. 8, FA TABLET GT SCH (05:46)
[2023-08-03] MEDS: POLYVINYL ALCOHOL OPHT DROPS 15 ML BOTTLE EACHEYE SCH ×3 (08:55→16:48)
[2023-08-03] MEDS: DOCUSATE SODIUM 100 MG/10 ML LIQUID UDC GT SCH (08:56)
[2023-08-03] MEDS: busPIRone 10 MG TABLET GT SCH ×3 (08:56→16:48)
[2023-08-03] MEDS: ACIDOPHILUS/BULGARICUS CHEW TAB GT SCH ×2 (08:58→20:37)
[2023-08-03] MEDS: VALPROIC ACID 250 MG/5 ML LIQUID UDC GT SCH ×4 (08:58→20:34)
[2023-08-03] MEDS: levETIRAcetam 500 MG/5 ML LIQUID UDC GT SCH ×2 (08:58→20:37)
[2023-08-03] MEDS: ESCITALOPRAM OXALATE 10 MG TABLET GT SCH (08:59)
[2023-08-03] MEDS: MIRALAX 17 GM POWD.PACK GT SCH (08:59)
[2023-08-03] MEDS: MAGNESIUM GLYCINATE GT SCH (08:59)
[2023-08-03] MEDS: HYDROGEN PEROXIDE 3% 118 ML BOTTLE TP SCH ×2 (09:00→19:19)
[2023-08-03] MEDS: POTASSIUM CHLORIDE 40 MEQ/30 ML LIQUID UDC GT SCH (09:00)
[2023-08-03] MEDS: NEOMY/BACITRAC/POLYMI OINT 28.35 GM TUBE TOP SCH ×2 (09:02→20:40)
[2023-08-03] MEDS: COAL TAR TOP SCH (09:02)
[2023-08-03] MEDS: NEOMY/BACITRA/POLYMYXIN B OINT UD PACKET TP SCH ×2 (09:03→20:41)
[2023-08-03] MEDS: REMEDY ESSENTIAL ZINC PASTE 113 GM TP SCH ×2 (09:03→20:41)
[2023-08-03 10:40] VITALS: O2SAT 98
[2023-08-03 16:16] VITALS: TEMP 97.6
[2023-08-03] MEDS: GABAPENTIN 300 MG CAPSULE GT SCH (16:49)
[2023-08-03 17:55] VITALS: TEMP 97.6
[2023-08-03 20:00] VITALS: TEMP 98
[2023-08-03] MEDS: OMEGA-3 FATTY ACIDS/FISH OIL CAPSULE GT SCH (20:36)
[2023-08-03] MEDS: CRANBERRY 500 MG GT SCH (20:38)
[2023-08-03] MEDS: NUTRISOURCE FIBER 4 GM PACKET GT SCH (20:39)
[2023-08-03] MEDS: PROTEIN SUPPLEMENT (PROSTAT) 30 ML LIQUID GT SCH (20:39)
[2023-08-03] MEDS: RIVAROXABAN 15 MG TABLET GT SCH (20:40)
[2023-08-03] MEDS: MELATONIN 3MG TABLET GT PRN (20:42)
[2023-08-03 21:00] VITALS: O2SAT 99
[2023-08-03] MEDS: LORAZEPAM 0.5 MG TABLET PO PRN (23:00)
[2023-08-04] MEDS: BACLOFEN 10 MG TABLET GT SCH ×4 (05:52→17:10)
[2023-08-04] MEDS: OMEPRAZOLE 20 MG CAPSULE.DR GT SCH (05:52)
[2023-08-04] MEDS: MULTIVIT, IRON, MIN NO. 8, FA TABLET GT SCH (05:52)
[2023-08-04] MEDS: HYDROGEN PEROXIDE 3% 118 ML BOTTLE TP SCH ×2 (07:29→19:07)
[2023-08-04] MEDS: JEVITY 1.2 1000 ML LIQUID GT PRN (08:02)
[2023-08-04 08:22] VITALS: BP 90/53; TEMP 98.4; O2SAT 98
[2023-08-04] MEDS: POLYVINYL ALCOHOL OPHT DROPS 15 ML BOTTLE EACHEYE SCH ×3 (08:41→17:10)
[2023-08-04] MEDS: busPIRone 10 MG TABLET GT SCH ×3 (08:42→17:10)
[2023-08-04] MEDS: DOCUSATE SODIUM 100 MG/10 ML LIQUID UDC GT SCH (08:43)
[2023-08-04] MEDS: ACIDOPHILUS/BULGARICUS CHEW TAB GT SCH ×2 (08:45→21:44)
[2023-08-04] MEDS: VALPROIC ACID 250 MG/5 ML LIQUID UDC GT SCH ×4 (08:45→21:43)
[2023-08-04] MEDS: levETIRAcetam 500 MG/5 ML LIQUID UDC GT SCH ×2 (08:46→21:44)
[2023-08-04] MEDS: ESCITALOPRAM OXALATE 10 MG TABLET GT SCH (08:46)
[2023-08-04] MEDS: MIRALAX 17 GM POWD.PACK GT SCH (08:47)
[2023-08-04] MEDS: MAGNESIUM GLYCINATE GT SCH (08:48)
[2023-08-04] MEDS: NEOMY/BACITRAC/POLYMI OINT 28.35 GM TUBE TOP SCH ×2 (08:49→21:46)
[2023-08-04] MEDS: POTASSIUM CHLORIDE 40 MEQ/30 ML LIQUID UDC GT SCH (08:49)
[2023-08-04] MEDS: REMEDY ESSENTIAL ZINC PASTE 113 GM TP SCH ×2 (08:49→21:47)
[2023-08-04] MEDS: NEOMY/BACITRA/POLYMYXIN B OINT UD PACKET TP SCH ×2 (08:49→21:47)
[2023-08-04 10:45] VITALS: O2SAT 99
[2023-08-04] MEDS: GABAPENTIN 300 MG CAPSULE GT SCH (17:10)
[2023-08-04 20:00] VITALS: TEMP 97.7
[2023-08-04 20:55] VITALS: O2SAT 99
[2023-08-04] MEDS: OMEGA-3 FATTY ACIDS/FISH OIL CAPSULE GT SCH (21:43)
[2023-08-04] MEDS: PROTEIN SUPPLEMENT (PROSTAT) 30 ML LIQUID GT SCH (21:45)
[2023-08-04] MEDS: CRANBERRY 500 MG GT SCH (21:45)
[2023-08-04] MEDS: NUTRISOURCE FIBER 4 GM PACKET GT SCH (21:45)
[2023-08-04] MEDS: RIVAROXABAN 15 MG TABLET GT SCH (21:46)
[2023-08-05] MEDS: BACLOFEN 10 MG TABLET GT SCH ×5 (05:25→23:24)
[2023-08-05] MEDS: MULTIVIT, IRON, MIN NO. 8, FA TABLET GT SCH (05:25)
[2023-08-05] MEDS: OMEPRAZOLE 20 MG CAPSULE.DR GT SCH (05:25)
[2023-08-05 07:45] VITALS: TEMP 97.6
[2023-08-05 08:16] VITALS: O2SAT 98
[2023-08-05] MEDS: HYDROGEN PEROXIDE 3% 118 ML BOTTLE TP SCH ×2 (08:16→21:09)
[2023-08-05] MEDS: busPIRone 10 MG TABLET GT SCH ×3 (08:44→16:31)
[2023-08-05] MEDS: DOCUSATE SODIUM 100 MG/10 ML LIQUID UDC GT SCH (08:44)
[2023-08-05] MEDS: POLYVINYL ALCOHOL OPHT DROPS 15 ML BOTTLE EACHEYE SCH ×3 (08:44→16:30)
[2023-08-05] MEDS: VALPROIC ACID 250 MG/5 ML LIQUID UDC GT SCH ×4 (08:45→21:24)
[2023-08-05] MEDS: ESCITALOPRAM OXALATE 10 MG TABLET GT SCH (08:46)
[2023-08-05] MEDS: levETIRAcetam 500 MG/5 ML LIQUID UDC GT SCH ×2 (08:46→21:25)
[2023-08-05] MEDS: ACIDOPHILUS/BULGARICUS CHEW TAB GT SCH ×2 (08:46→21:25)
[2023-08-05] MEDS: MIRALAX 17 GM POWD.PACK GT SCH (08:47)
[2023-08-05] MEDS: POTASSIUM CHLORIDE 40 MEQ/30 ML LIQUID UDC GT SCH (08:51)
[2023-08-05] MEDS: MAGNESIUM GLYCINATE GT SCH (08:51)
[2023-08-05] MEDS: NEOMY/BACITRA/POLYMYXIN B OINT UD PACKET TP SCH ×2 (08:52→21:29)
[2023-08-05] MEDS: REMEDY ESSENTIAL ZINC PASTE 113 GM TP SCH ×2 (08:52→21:29)
[2023-08-05] MEDS: JEVITY 1.2 1000 ML LIQUID GT PRN (12:21)
[2023-08-05] MEDS: GABAPENTIN 300 MG CAPSULE GT SCH (16:31)
[2023-08-05 20:10] VITALS: O2SAT 98
[2023-08-05 20:15] VITALS: O2SAT 99
[2023-08-05] MEDS: MELATONIN 3MG TABLET GT PRN (21:00)
[2023-08-05] MEDS: OMEGA-3 FATTY ACIDS/FISH OIL CAPSULE GT SCH (21:25)
[2023-08-05] MEDS: CRANBERRY 500 MG GT SCH (21:26)
[2023-08-05] MEDS: PROTEIN SUPPLEMENT (PROSTAT) 30 ML LIQUID GT SCH (21:27)
[2023-08-05] MEDS: NUTRISOURCE FIBER 4 GM PACKET GT SCH (21:27)
[2023-08-05] MEDS: RIVAROXABAN 15 MG TABLET GT SCH (21:29)
[2023-08-06] MEDS: BACLOFEN 10 MG TABLET GT SCH ×3 (05:29→17:07)
[2023-08-06] MEDS: MULTIVIT, IRON, MIN NO. 8, FA TABLET GT SCH (05:29)
[2023-08-06] MEDS: OMEPRAZOLE 20 MG CAPSULE.DR GT SCH (05:29)
[2023-08-06] MEDS: HYDROGEN PEROXIDE 3% 118 ML BOTTLE TP SCH ×2 (07:20→19:09)
[2023-08-06 08:00] VITALS: TEMP 97.7
[2023-08-06 08:24] VITALS: O2SAT 98
[2023-08-06] MEDS: POLYVINYL ALCOHOL OPHT DROPS 15 ML BOTTLE EACHEYE SCH ×3 (09:43→16:22)
[2023-08-06] MEDS: MAGNESIUM GLYCINATE GT SCH (09:44)
[2023-08-06] MEDS: MIRALAX 17 GM POWD.PACK GT SCH (09:44)
[2023-08-06] MEDS: DOCUSATE SODIUM 100 MG/10 ML LIQUID UDC GT SCH (09:44)
[2023-08-06] MEDS: ESCITALOPRAM OXALATE 10 MG TABLET GT SCH (09:44)
[2023-08-06] MEDS: VALPROIC ACID 250 MG/5 ML LIQUID UDC GT SCH ×4 (09:44→21:32)
[2023-08-06] MEDS: COAL TAR TOP SCH (09:44)
[2023-08-06] MEDS: POTASSIUM CHLORIDE 40 MEQ/30 ML LIQUID UDC GT SCH (09:44)
[2023-08-06] MEDS: REMEDY ESSENTIAL ZINC PASTE 113 GM TP SCH ×2 (09:44→21:34)
[2023-08-06] MEDS: busPIRone 10 MG TABLET GT SCH ×3 (09:44→16:22)
[2023-08-06] MEDS: ACIDOPHILUS/BULGARICUS CHEW TAB GT SCH ×2 (09:44→21:32)
[2023-08-06] MEDS: levETIRAcetam 500 MG/5 ML LIQUID UDC GT SCH ×2 (09:44→21:33)
[2023-08-06] MEDS: GABAPENTIN 300 MG CAPSULE GT SCH (16:22)
[2023-08-06 19:10] VITALS: O2SAT 99
[2023-08-06 20:00] VITALS: TEMP 97.6
[2023-08-06] MEDS: OMEGA-3 FATTY ACIDS/FISH OIL CAPSULE GT SCH (21:32)
[2023-08-06] MEDS: NUTRISOURCE FIBER 4 GM PACKET GT SCH (21:34)
[2023-08-06] MEDS: CRANBERRY 500 MG GT SCH (21:34)
[2023-08-06] MEDS: PROTEIN SUPPLEMENT (PROSTAT) 30 ML LIQUID GT SCH (21:34)
[2023-08-06] MEDS: RIVAROXABAN 15 MG TABLET GT SCH (21:36)
[2023-08-07] MEDS: MULTIVIT, IRON, MIN NO. 8, FA TABLET GT SCH (05:46)
[2023-08-07] MEDS: BACLOFEN 10 MG TABLET GT SCH ×4 (05:46→17:03)
[2023-08-07] MEDS: OMEPRAZOLE 20 MG CAPSULE.DR GT SCH (05:46)
[2023-08-07] MEDS: HYDROGEN PEROXIDE 3% 118 ML BOTTLE TP SCH ×2 (08:27→19:14)
[2023-08-07] MEDS: POLYVINYL ALCOHOL OPHT DROPS 15 ML BOTTLE EACHEYE SCH ×3 (09:19→16:54)
[2023-08-07] MEDS: busPIRone 10 MG TABLET GT SCH ×3 (09:19→16:54)
[2023-08-07] MEDS: ESCITALOPRAM OXALATE 10 MG TABLET GT SCH (09:20)
[2023-08-07] MEDS: DOCUSATE SODIUM 100 MG/10 ML LIQUID UDC GT SCH (09:20)
[2023-08-07] MEDS: VALPROIC ACID 250 MG/5 ML LIQUID UDC GT SCH ×4 (09:21→20:53)
[2023-08-07] MEDS: ACIDOPHILUS/BULGARICUS CHEW TAB GT SCH ×2 (09:22→20:54)
[2023-08-07] MEDS: MIRALAX 17 GM POWD.PACK GT SCH (09:23)
[2023-08-07] MEDS: levETIRAcetam 500 MG/5 ML LIQUID UDC GT SCH ×2 (09:23→20:55)
[2023-08-07] MEDS: MAGNESIUM GLYCINATE GT SCH (09:25)
[2023-08-07] MEDS: REMEDY ESSENTIAL ZINC PASTE 113 GM TP SCH ×2 (09:28→20:59)
[2023-08-07] MEDS: POTASSIUM CHLORIDE 40 MEQ/30 ML LIQUID UDC GT SCH (09:28)
[2023-08-07 11:53] VITALS: O2SAT 98
[2023-08-07 12:10] VITALS: TEMP 97.7
[2023-08-07] MEDS: JEVITY 1.2 1000 ML LIQUID GT PRN (13:23)
[2023-08-07] MEDS: GABAPENTIN 300 MG CAPSULE GT SCH (16:56)
[2023-08-07 20:45] VITALS: O2SAT 99
[2023-08-07] MEDS: OMEGA-3 FATTY ACIDS/FISH OIL CAPSULE GT SCH (20:53)
[2023-08-07] MEDS: NUTRISOURCE FIBER 4 GM PACKET GT SCH (20:55)
[2023-08-07] MEDS: CRANBERRY 500 MG GT SCH (20:55)
[2023-08-07] MEDS: PROTEIN SUPPLEMENT (PROSTAT) 30 ML LIQUID GT SCH (20:56)
[2023-08-07] MEDS: RIVAROXABAN 15 MG TABLET GT SCH (20:58)
[2023-08-07] MEDS: COD LIVER OIL/ZINC OXIDE OINT 113 GM TUBE TP SCH (20:59)
[2023-08-07] MEDS: MELATONIN 3MG TABLET GT PRN (21:00)
[2023-08-08 00:18] VITALS: TEMP 97.5
[2023-08-08] MEDS: BACLOFEN 10 MG TABLET GT SCH ×4 (00:36→17:04)
[2023-08-08] MEDS: MULTIVIT, IRON, MIN NO. 8, FA TABLET GT SCH (05:01)
[2023-08-08] MEDS: OMEPRAZOLE 20 MG CAPSULE.DR GT SCH (05:01)
[2023-08-08] MEDS: HYDROGEN PEROXIDE 3% 118 ML BOTTLE TP SCH ×2 (07:13→19:11)
[2023-08-08 08:07] VITALS: TEMP 97.9
[2023-08-08 08:24] VITALS: O2SAT 98
[2023-08-08] MEDS: ACIDOPHILUS/BULGARICUS CHEW TAB GT SCH ×2 (09:00→21:48)
[2023-08-08] MEDS: REMEDY ESSENTIAL ZINC PASTE 113 GM TP SCH ×2 (09:00→21:50)
[2023-08-08] MEDS: DOCUSATE SODIUM 100 MG/10 ML LIQUID UDC GT SCH (09:00)
[2023-08-08] MEDS: POTASSIUM CHLORIDE 40 MEQ/30 ML LIQUID UDC GT SCH (09:00)
[2023-08-08] MEDS: levETIRAcetam 500 MG/5 ML LIQUID UDC GT SCH ×2 (09:00→21:48)
[2023-08-08] MEDS: COD LIVER OIL/ZINC OXIDE OINT 113 GM TUBE TP SCH ×2 (09:00→21:50)
[2023-08-08] MEDS: MAGNESIUM GLYCINATE GT SCH (09:00)
[2023-08-08] MEDS: busPIRone 10 MG TABLET GT SCH ×3 (09:00→17:04)
[2023-08-08] MEDS: POLYVINYL ALCOHOL OPHT DROPS 15 ML BOTTLE EACHEYE SCH ×3 (09:00→17:04)
[2023-08-08] MEDS: ESCITALOPRAM OXALATE 10 MG TABLET GT SCH (09:00)
[2023-08-08] MEDS: VALPROIC ACID 250 MG/5 ML LIQUID UDC GT SCH ×4 (09:00→21:48)
[2023-08-08] MEDS: MIRALAX 17 GM POWD.PACK GT SCH (09:00)
[2023-08-08] MEDS: GABAPENTIN 300 MG CAPSULE GT SCH (17:04)
[2023-08-08 20:35] VITALS: O2SAT 99
[2023-08-08] MEDS: OMEGA-3 FATTY ACIDS/FISH OIL CAPSULE GT SCH (21:48)
[2023-08-08] MEDS: PROTEIN SUPPLEMENT (PROSTAT) 30 ML LIQUID GT SCH (21:48)
[2023-08-08] MEDS: CRANBERRY 500 MG GT SCH (21:48)
[2023-08-08] MEDS: NUTRISOURCE FIBER 4 GM PACKET GT SCH (21:48)
[2023-08-08] MEDS: RIVAROXABAN 15 MG TABLET GT SCH (21:49)
[2023-08-08] MEDS: MELATONIN 3MG TABLET GT PRN (21:53)
[2023-08-08 22:00] VITALS: TEMP 97.9
[2023-08-09] MEDS: BACLOFEN 10 MG TABLET GT SCH ×4 (00:43→17:03)
[2023-08-09] MEDS: OMEPRAZOLE 20 MG CAPSULE.DR GT SCH (06:51)
[2023-08-09] MEDS: MULTIVIT, IRON, MIN NO. 8, FA TABLET GT SCH (06:51)
[2023-08-09] MEDS: HYDROGEN PEROXIDE 3% 118 ML BOTTLE TP SCH ×2 (07:30→19:09)
[2023-08-09 07:54] VITALS: TEMP 97.6
[2023-08-09] MEDS: POTASSIUM CHLORIDE 40 MEQ/30 ML LIQUID UDC GT SCH (08:21)
[2023-08-09] MEDS: ESCITALOPRAM OXALATE 10 MG TABLET GT SCH (08:21)
[2023-08-09] MEDS: busPIRone 10 MG TABLET GT SCH ×3 (08:21→16:48)
[2023-08-09] MEDS: COD LIVER OIL/ZINC OXIDE OINT 113 GM TUBE TP SCH ×2 (08:21→21:43)
[2023-08-09] MEDS: ACIDOPHILUS/BULGARICUS CHEW TAB GT SCH ×2 (08:21→21:41)
[2023-08-09] MEDS: DOCUSATE SODIUM 100 MG/10 ML LIQUID UDC GT SCH (08:21)
[2023-08-09] MEDS: VALPROIC ACID 250 MG/5 ML LIQUID UDC GT SCH ×4 (08:21→21:40)
[2023-08-09] MEDS: MAGNESIUM GLYCINATE GT SCH (08:21)
[2023-08-09] MEDS: levETIRAcetam 500 MG/5 ML LIQUID UDC GT SCH ×2 (08:21→21:41)
[2023-08-09] MEDS: MIRALAX 17 GM POWD.PACK GT SCH (08:21)
[2023-08-09] MEDS: POLYVINYL ALCOHOL OPHT DROPS 15 ML BOTTLE EACHEYE SCH ×3 (08:21→16:48)
[2023-08-09] MEDS: REMEDY ESSENTIAL ZINC PASTE 113 GM TP SCH ×2 (08:21→21:43)
[2023-08-09 10:40] VITALS: O2SAT 98
[2023-08-09] MEDS: JEVITY 1.2 1000 ML LIQUID GT PRN (10:45)
[2023-08-09] MEDS: GABAPENTIN 300 MG CAPSULE GT SCH (16:49)
[2023-08-09 20:00] VITALS: TEMP 97.5
[2023-08-09 21:10] VITALS: O2SAT 99
[2023-08-09] MEDS: NUTRISOURCE FIBER 4 GM PACKET GT SCH (21:39)
[2023-08-09] MEDS: PROTEIN SUPPLEMENT (PROSTAT) 30 ML LIQUID GT SCH (21:39)
[2023-08-09] MEDS: RIVAROXABAN 15 MG TABLET GT SCH (21:39)
[2023-08-09] MEDS: OMEGA-3 FATTY ACIDS/FISH OIL CAPSULE GT SCH (21:40)
[2023-08-09] MEDS: CRANBERRY 500 MG GT SCH (21:42)
[2023-08-09] MEDS: MELATONIN 3MG TABLET GT PRN (21:44)
[2023-08-10] MEDS: BACLOFEN 10 MG TABLET GT SCH ×2 (00:51→06:14)
[2023-08-10] MEDS: OMEPRAZOLE 20 MG CAPSULE.DR GT SCH (06:14)
[2023-08-10] MEDS: MULTIVIT, IRON, MIN NO. 8, FA TABLET GT SCH (06:14)
== END 2023-08-08 23:59 | disposition still patient (30) | DRG 189 ==
LOC: SA → UNDOADMIN 08-11 07:32 → SA 08-11 07:32 → SA1 03-04 18:44 → SA 03-07 19:36
PROVIDERS: ADMIT Internal Medicine Pulmonary Disease; ATTEND Internal Medicine Pulmonary Disease
PROC: 05HB33Z Insertion of Infusion Device into Right Basilic Vein, Percutaneous Approach (ICD-10-PCS; principal; 2023-07-18)
DX: J96.11 Chronic respiratory failure with hypoxia (principal); G82.50 Quadriplegia, unspecified; R53.2 Functional quadriplegia; G93.40 Encephalopathy, unspecified; N39.0 Urinary tract infection, site not specified; J98.11 Atelectasis; L03.114 Cellulitis of left upper limb; F39 Unspecified mood [affective] disorder; G40.909 Epilepsy, unspecified, not intractable, without status epilepticus; G43.909 Migraine, unspecified, not intractable, without status migrainosus; G47.00 Insomnia, unspecified; H00.011 Hordeolum externum right upper eyelid; H00.014 Hordeolum externum left upper eyelid; H01.004 Unspecified blepharitis left upper eyelid; J06.9 Acute upper respiratory infection, unspecified; B96.1 Klebsiella pneumoniae [K. pneumoniae] as the cause of diseases classified elsewhere; G93.89 Other specified disorders of brain; H57.02 Anisocoria; K59.00 Constipation, unspecified; K80.20 Calculus of gallbladder without cholecystitis without obstruction; R13.10 Dysphagia, unspecified; S22.42XS Multiple fractures of ribs, left side, sequela; S27.0XXS Traumatic pneumothorax, sequela; S32.401D Unspecified fracture of right acetabulum, subsequent encounter for fracture with routine healing; S32.402D Unspecified fracture of left acetabulum, subsequent encounter for fracture with routine healing; S42.002D Fracture of unspecified part of left clavicle, subsequent encounter for fracture with routine healing; V89.2XXD Person injured in unspecified motor-vehicle accident, traffic, subsequent encounter; V89.2XXS Person injured in unspecified motor-vehicle accident, traffic, sequela; Z79.899 Other long term (current) drug therapy; Z93.0 Tracheostomy status; Z93.1 Gastrostomy status
CPT/HCPCS: 36415; 71045; 73130; 74018; 80164; 82652; 83735; 84100; 84443; 85025; 85651; 86580; 90686; 94640; 97535-GO-CO; A4663; A6209; A6213; C1758; J3590; Q9963; U0003